=== PATIENT | male | born 1965 | race Caucasian/White ===

== ENCOUNTER 2020-02-22 10:03 | Inpatient (IN) | payer OTHER, SELFPAY ==
[2020-02-22] MEDS ORDERED: FAMOTIDINE 20 MG/2 ML VIAL IV ONE (10:54)
[2020-02-22] MEDS ORDERED: NA CHLORIDE 0.9% 1,000 ML ONE ×2 (10:54→13:19)
[2020-02-22] MEDS ORDERED: ONDANSETRON 4 MG/2 ML VIAL ONE (10:54)
--- NOTE | 2020-02-22 11:40 | RAD REPORT ---
EXAM DESCRIPTION: CT - Abdomen Pelvis Wo Contrast - 02/22/2020 11:16 am CLINICAL HISTORY: Abdominal pain. ABD PAIN COMPARISON: No comparisons TECHNIQUE: CT imaging of the abdomen and pelvis was performed without contrast. Solid organ, bowel a nd vascular assessment is limited due to lack of IV and oral contrast. All CT scans are performed using dose optimization technique as appropriate and may include automated exposure control or mA/KV adjustment according to patient size. FINDINGS: The lower lung johnson are clear.Small hiatal hernia is seen. Mildly prominent gastroesopha geal lymph node is present measuring 9 mm. The liver, spleen, pancreas, adrenal glands and kidneys are within normal limits for a limited non-co ntrast examination. No bowel obstruction, free air, free fluid or abscess. Moderate stool is retained. The appendix is no rmal. The osseous structures are within normal limits. IMPRESSION: No acute intra-abdominal or pelvic findings. Small hiatal hernia with small adjacent 9 mm gastroesophageal lymph node. Consider followup nonemerge nt upper endoscopy. A limited non-contrast examination was performed as detailed.
--- NOTE | 2020-02-22 11:42 | RAD REPORT ---
EXAM DESCRIPTION: RAD - Chest Single View - 02/22/2020 10:56 am CLINICAL HISTORY: SOB Chest pain. COMPARISON: No comparisons FINDINGS: Portable technique limits examination quality. The lungs are grossly clear. The heart is normal in size. No displaced fractures. IMPRESSION: No acute intrathoracic process suspected.
[2020-02-22 12:08] LABS: Basophils % 0.5 % (0-1.3); Hematocrit 22.9 % (39.6-49.0); MPV 8.1 fL (7.6-11.3); RBC Red Blood Cell Count 2.42 M/uL (4.33-5.43)
[2020-02-22 12:20] LABS: Protime INR 1.02
[2020-02-22 12:28] LABS: ALT/SGPT 21 U/L (12-78); AST/SGOT 18 U/L (15-37); Albumin 3.5 g/dL (3.4-5.0); Alkaline Phosphatase 91 U/L (45-117); BUN Blood Urea Nitrogen 109 mg/dL (7-18); Bicarbonate 11 mmol/L (21-32); Bilirubin Direct 0.1 mg/dL (0-0.2); Bilirubin Total 1.5 mg/dL (0.2-1.0); Glucose Level 94 mg/dL (74-106); Lipase 471 U/L (73-393); Magnesium 2.3 mg/dL (1.8-2.4); NT PRO-BNP 844 pg/mL (<125); Protein, Total 7.9 g/dL (6.4-8.2); Sodium Level 134 mmol/L (136-145); Troponin (Emerg Dept Use Only) < 0.02 ng/mL (0.0-0.045)
[2020-02-22 12:30] LABS: Potassium 5.7 mmol/L (3.5-5.1)
--- NOTE | 2020-02-22 13:05 | EDPHYS ---
Physician Documentation [facility] Name: Cr Orellana Age: 54 yrs Sex: Male : 1965 Arrival Date: 02/22/2020 Time: 10:05 Bed External Waiting Private MD: ED Physician Scott Milton HPI: 02/21 10:49 This 54 yrs old Male presents to ER via Ambulatory with complaints of Fever, pm1 Vomiting, Breathing Difficulty, Passed Out Prior To Arrival. 10:49 The patient presents to the emergency department with nausea, vomiting, with each meal pm1 attempt for the past 4 days, diarrhea, black tarry stools for the past 4 days, abdominal pain, of the epigastric area, described as achy, burning, and does not radiate. Onset: The symptoms/episode began/occurred 4 day(s) ago. Possible causes: unknown, sick contacts, None. The symptoms are aggravated by food , The symptoms are alleviated by nothing. Associated signs and symptoms: Pertinent positives: abdominal pain, nausea, vomiting, Subjective fever, Pertinent negatives: constipation, dysuria. Severity of symptoms: in the emergency department the symptoms are worse. The patient has not experienced similar symptoms in the past. The patient has not recently seen a physician, and does not have an established primary care provider. Patient with history of reflux disease that is not treated. Last treated with Zantac but stopped when the medication was recalled. Historical: - Allergies: 11:27 No Known Allergies; dm5 - Home Meds: 11:27 None [Active]; dm5 - PMHx: 11:27 seasonal allergies; dm5 - Immunization history:: Adult Immunizations not up to date. - Social history:: Smoking status: unknown. ROS: 10:49 Eyes: Negative for injury, pain, redness, and discharge, ENT: Negative for injury, pm1 pain, and discharge, Neck: Negative for injury, pain, and swelling, Cardiovascular: Negative for chest pain, palpitations, and edema, Respiratory: Negative for shortness of breath, cough, wheezing, and pleuritic chest pain. 10:49 Back: Negative for injury and pain, : Negative for injury, bleeding, discharge, and swelling, MS/Extremity: Negative for injury and deformity, Skin: Negative for injury, rash, and discoloration. 10:49 Constitutional: Positive for poor PO intake, subjective fever, Negative for body aches. 10:49 Abdomen/GI: Positive for abdominal pain, black/tarry stool, of the epigastric area, Negative for hematemesis. 10:49 Neuro: Positive for syncope, weakness, Negative for altered mental status, dizziness, headache. Exam: 10:49 Constitutional: This is a well developed, well nourished patient who is awake, alert, pm1 and in no acute distress. Head/Face: Normocephalic, atraumatic. 10:49 ENT: Nares patent. No nasal discharge, no septal abnormalities noted. Tympanic membranes are normal and external auditory canals are clear. Oropharynx with no redness, swelling, or masses, exudates, or evidence of obstruction, uvula midline. Mucous membranes moist. Neck: Trachea midline, no thyromegaly or masses palpated, and no cervical lymphadenopathy. Supple, full range of motion without nuchal rigidity, or vertebral point tenderness. No Meningismus. Chest/axilla: Normal chest wall appearance and motion. Nontender with no deformity. No lesions are appreciated. 10:49 Back: No spinal tenderness. No costovertebral tenderness. Full range of motion. MS/ Extremity: Pulses equal, no cyanosis. Neurovascular intact. Full, normal range of motion. 10:49 Eyes: Periorbital structures: appear normal, Pupils: no acute changes, Extraocular movements: no acute changes, Conjunctiva: pale, bilaterally. 10:49 Cardiovascular: Rate: normal, Rhythm: regular, Pulses: no pulse deficits are appreciated, Edema: is not appreciated. 10:49 Respiratory: Exam negative for acute changes, respiratory distress, shortness of breath, wheezing. 10:49 Abdomen/GI: Inspection: abdomen appears normal, Palpation: soft, in all quadrants, mild abdominal tenderness, in the epigastric area, mass, is not appreciated, rebound tenderness, is not appreciated. 10:49 Skin: Appearance: Color: pale. 10:49 Neuro: Exam negative for acute changes, Orientation: is normal, Mentation: is normal, Motor: is normal, moves all fours. 12:49 Abdomen/GI: Rectal exam: rectal tone normal, Stool: brown, guaiac positive, pm1 hemorrhoid(s), are not appreciated, mass, is not appreciated, tenderness, is not appreciated. Vital Signs: 10:15 BP 147 / 95; Pulse 79; Resp 18; Temp 97.2; Pulse Ox 100% on R/A; Pain 8/10; dm5 10:45 BP 161 / 83; Pulse 74; Resp 21; Pulse Ox 100% ; ah 11:45 BP 145 / 89; Pulse 67; Resp 20; Pulse Ox 100% ; ah 12:30 BP 141 / 80; Pulse 74; Resp 20; Pulse Ox 100% ; ah 13:30 BP 148 / 84; Pulse 82; Resp 26; Pulse Ox 100% ; ah 14:00 BP 151 / 85; Pulse 82; Resp 26; Pulse Ox 100% ; ah 14:30 BP 163 / 68; Pulse 98; Resp 24; Pulse Ox 100% ; ah MDM: 10:18 Patient medically screened. pm1 12:59 Data reviewed: vital signs. Data interpreted: Pulse oximetry: on room air is 100 %. pm1 Interpretation: normal. Counseling: I had a detailed discussion with the patient and/or guardian regarding: the historical points, exam findings, and any diagnostic results supporting the discharge/admit diagnosis, lab results, radiology results, the need for further work-up and treatment in the hospital. 13:15 Physician consultation: Sawyer Pizano MD was called at 13:15, regarding admission, pm1 patient's condition, would like consultation with Dr. Martínez. 14:02 Physician consultation: Oswaldo Martínez MD was contacted at 14:02, regarding consult, pm1 patient's condition, and will see patient. 02/21 10:33 Order name: Basic Metabolic Panel; Complete Time: 12:32 pm1 02/21 10:33 Order name: CBC with Diff; Complete Time: 13:54 pm1 02/21 10:33 Order name: LFT's; Complete Time: 12:32 pm02/21 10:33 Order name: Magnesium; Complete Time: 12:32 pm1 02/21 10:33 Order name: NT PRO-BNP; Complete Time: 12:32 pm02/21 10:33 Order name: PT-INR; Complete Time: 12:22 pm02/21 10:33 Order name: Troponin (emerg Dept Use Only); Complete Time: 12:32 pm1 02/21 10:33 Order name: Lipase; Complete Time: 12:32 pm1 02/21 10:34 Order name: COVID-19; Complete Time: 14:53 pm1 02/21 10:34 Order name: Flu; Complete Time: 11:57 pm1 02/21 10:34 Order name: Strep; Complete Time: 11:46 pm1 02/21 11:38 Order name: Throat Culture EDMS 02/21 12:34 Order name: Type And Screen pm1 02/21 12:50 Order name: Guiac; Complete Time: 14:40 em1 02/21 10:33 Order name: XRAY Chest (1 view); Complete Time: 11:46 pm1 02/21 10:42 Order name: CT Abd/Pelvis - Without Contrast; Complete Time: 11:46 dm5 02/21 13:11 Order name: ABO/RH no charge; Complete Time: 13:13 EDMS 02/21 13:18 Order name: Basic Metabolic Panel EDMS 02/21 13:18 Order name: Basic Metabolic Panel EDMS 02/21 13:19 Order name: Hematocrit; Complete Time: 14:12 EDMS 02/21 13:19 Order name: Hematocrit EDMS 02/21 13:19 Order name: Hematocrit EDMS 02/21 13:21 Order name: Comprehensive Metabolic Panel EDMS 02/21 13:24 Order name: PTH Intact; Complete Time: 14:53 EDMS 02/21 13:35 Order name: CBC Smear Scan; Complete Time: 13:54 EDMS 02/21 16:03 Order name: Hemoglobin; Complete Time: 16:05 EDMS 02/21 16:03 Order name: Hematocrit; Complete Time: 16:05 EDMS 02/21 10:33 Order name: EKG; Complete Time: 10:34 pm02/21 10:33 Order name: Cardiac monitoring; Complete Time: 11:31 pm02/21 10:33 Order name: EKG - Nurse/Tech pm1 02/21 10:33 Order name: IV Saline Lock; Complete Time: 12:05 pm02/21 10:33 Order name: Labs collected and sent; Complete Time: 12:05 pm02/21 10:33 Order name: O2 Per Protocol; Complete Time: 11:32 pm02/21 10:33 Order name: O2 Sat Monitoring; Complete Time: 11:32 pm02/21 10:34 Order name: Droplet/Contact Precautions; Complete Time: 11:31 pm1 02/21 13:18 Order name: CONS Pharmacy Consult EDMS 02/21 13:18 Order name: NPO EDMS 02/21 13:18 Order name: EKG Electrocardiogram EDMS 02/21 13:18 Order name: EKG Electrocardiogram EDMS 02/21 13:18 Order name: EKG Electrocardiogram EDMS 02/21 13:18 Order name: EKG Electrocardiogram EDMS 02/21 13:18 Order name: EKG Electrocardiogram EDMS 02/21 13:18 Order name: EKG Electrocardiogram EDMS 02/21 13:18 Order name: EKG Electrocardiogram EDMS 02/21 13:18 Order name: EKG Electrocardiogram EDMS 02/21 13:19 Order name: EKG Electrocardiogram EDMS 02/21 13:19 Order name: EKG Electrocardiogram EDMS 02/21 13:19 Order name: EKG Electrocardiogram EDMS 02/21 13:23 Order name: CONS Physician Consult EDMS Administered Medications: 12:04 Drug: NS 0.9% 1000 ml Route: IV; Rate: 1000 ml; Site: right forearm; sv 12:04 Drug: Zofran (Ondansetron) 4 mg Route: IVP; Site: right forearm; sv 12:04 Drug: Pepcid 20 mg Route: IVP; Site: right forearm; sv 14:00 Drug: Albuterol 7.5 mg Route: Inhalation; ah 14:01 Drug: Insulin Regular Human 5 units {Co-Signature: vc (Mercedez Emmanuel RN).} Route: ah IVP; Site: right antecubital; 14:01 Drug: D50W 50 ml Route: IVP; Site: right antecubital; 14:02 Drug: ProTONIX 40 mg Route: IVP; Site: right antecubital; 14:02 Drug: NS 0.9% 1000 ml Route: IV; Rate: 125 ml/hr; Site: right antecubital; 14:02 Drug: Calcium Gluconate 1 grams Route: IVPB; Infused Over: 60 mins; Site: right antecubital; Disposition: 18:34 Co-signature as Attending Physician, Scott Milton MD. ma2 Disposition: 02/22/20 13:04 Hospitalization ordered by Sawyer Pizano for Inpatient Admission. Preliminary diagnosis are Gastrointestinal hemorrhage, unspecified, Acute kidney injury, Dehydration. - Bed requested for Intensive Care Unit. - Status is Inpatient Admission. dm5 - Condition is Stable. - Problem is new. - Symptoms have improved. Signatures: Dispatcher [employer] EDLA Mary Robert RN Kate Lutz RN RN dm5 Valeria Beckwith RN JUAN DANIEL Caden Lomas, FLATWORK TIER FLATWORK TIER pm1 Scott Milton MD MD mo2 Lashay eD RN RN ah Vanessa Calcote RN vc Corrections: (The following items were deleted from the chart) 10:53 10:35 Abdomen Pelvis W Con+CT.RAD.BRZ ordered. EDLA EDMS 13:06 13:04 Hospitalization Ordered by Sawyer Pizano MD for Inpatient Admission. pm1 Preliminary diagnosis is Gastrointestinal hemorrhage, unspecified. Bed requested for Telemetry/MedSurg (Inpatient). Status is Inpatient Admission. Condition is Stable. Problem is new. Symptoms have improved. pm1 14:22 13:06 02/22/2020 13:04 Hospitalization Ordered by Sawyer Pizano MD for Inpatient kl Admission. Preliminary diagnosis is Gastrointestinal hemorrhage, unspecified; Acute kidney injury; Dehydration. Bed requested for Telemetry/MedSurg (Inpatient). Status is Inpatient Admission. Condition is Stable. Problem is new. Symptoms have improved. pm1 16:14 14:22 02/22/2020 13:04 Hospitalization Ordered by Sawyer Pizano MD for Inpatient dm5 Admission. Preliminary diagnosis is Gastrointestinal hemorrhage, unspecified; Acute kidney injury; Dehydration. Bed requested for Intensive Care Unit. Status is Inpatient Admission. Condition is Stable. Problem is new. Symptoms have improved. kl
--- NOTE | 2020-02-22 13:05 | ER ---
Nurse's Notes [facility] Name: Cr Orellana Age: 54 yrs Sex: Male : 1965 Arrival Date: 02/22/2020 Time: 10:05 Bed External Waiting Private MD: Diagnosis: Gastrointestinal hemorrhage, unspecified;Acute kidney injury;Dehydration Presentation: 02/21 10:08 Acuity: HUYEN 3 dm5 10:15 Chief complaint: Patient states: nausea and vomiting since Monday. Weak. "I haven't dm5 felt like this before.". Coronavirus screen: Surgical mask placed on patient. Patient moved to private room, placed in contact and droplet isolation with eye protection until further assessment. Patient reports shortness of breath or difficulty breathing. Patient reports a measured and/or subjective temperature greater than 100.4F. Ebola Screen: Patient negative for fever greater than or equal to 101.5 degrees Fahrenheit, and additional compatible Ebola Virus Disease symptoms Patient denies exposure to infectious person. Patient denies travel to an Ebola-affected area in the 21 days before illness onset. No symptoms or risks identified at this time. Initial Sepsis Screen: Does the patient meet any 2 criteria? No. Patient's initial sepsis screen is negative. Does the patient have a suspected source of infection? Yes: Acute abdominal pain. Risk Assessment: Do you want to hurt yourself or someone else? Patient reports no desire to harm self or others. Onset of symptoms was February 17, 2020. 10:15 Method Of Arrival: Ambulatory dm5 Triage Assessment: 10:30 General: Appears uncomfortable, Behavior is calm, cooperative. Pain: Complains of pain dm5 in epigastric area. Neuro: Level of Consciousness is awake, alert, obeys commands, Oriented to person, place, time. Respiratory: Airway is patent Respiratory effort is even, unlabored, Respiratory pattern is regular, symmetrical. GI: Reports nausea, vomiting. Derm: Skin is pink, warm \\T\\ dry. Historical: - Allergies: 11:27 No Known Allergies; dm5 - Home Meds: 11:27 None [Active]; dm5 - PMHx: 11:27 seasonal allergies; dm5 - Immunization history:: Adult Immunizations not up to date. - Social history:: Smoking status: unknown. Screenin:06 Abuse screen: Denies threats or abuse. Nutritional screening: No deficits noted. Tuberculosis screening: No symptoms or risk factors identified. Fall Risk None identified. Vital Signs: 10:15 BP 147 / 95; Pulse 79; Resp 18; Temp 97.2; Pulse Ox 100% on R/A; Pain 8/10; dm5 10:45 BP 161 / 83; Pulse 74; Resp 21; Pulse Ox 100% ; ah 11:45 BP 145 / 89; Pulse 67; Resp 20; Pulse Ox 100% ; ah 12:30 BP 141 / 80; Pulse 74; Resp 20; Pulse Ox 100% ; ah 13:30 BP 148 / 84; Pulse 82; Resp 26; Pulse Ox 100% ; ah 14:00 BP 151 / 85; Pulse 82; Resp 26; Pulse Ox 100% ; ah 14:30 BP 163 / 68; Pulse 98; Resp 24; Pulse Ox 100% ; ah ED Course: 10:05 Patient arrived in ED. mr 10:08 Arm band placed on left wrist. Patient placed in an exam room. dm5 10:09 Caden Lomas NP is PHCP. pm1 10:09 Scott Milton MD is Attending Physician. pm1 10:30 Missed attempt(s): 20 gauge in left antecubital area. dm5 10:40 Triage completed. dm5 10:40 aKte Yip, RN is Primary Nurse. dm5 10:56 XRAY Chest (1 view) In Process Unspecified. EDMS 11:00 Missed attempt(s): 22 gauge in left wrist. Bleeding controlled, band aid applied, dm5 catheter tip intact. 11:16 CT Abd/Pelvis - Without Contrast In Process Unspecified. EDMS 11:16 CT completed. Patient tolerated procedure well. Patient moved back from CT. bq 11:45 Inserted saline lock: 20 gauge in right forearm, using aseptic technique. ,using sv aseptic technique. diffusics Blood collected. Flushed right forearm with 5 ml normal saline. 12:10 Notified ED physician of a critical lab result(s). 7.7 hgb. dm5 12:56 T\\T\\S collected, blood band applied to patient. jp3 13:04 Sawyer Pizano MD is Hospitalizing Provider. pm1 14:03 Notified Nurse Practitioner and/or Physician Health Services Director of a critical lab result(s), hct dm5 20.8. 14:06 Patient has correct armband on for positive identification. Placed in gown. Bed in low ah position. Call light in reach. Side rails up X 1. 14:46 No provider procedures requiring assistance completed. Patient admitted, IV remains in place. Administered Medications: 12:04 Drug: NS 0.9% 1000 ml Route: IV; Rate: 1000 ml; Site: right forearm; sv 12:04 Drug: Zofran (Ondansetron) 4 mg Route: IVP; Site: right forearm; 12:04 Drug: Pepcid 20 mg Route: IVP; Site: right forearm; sv 14:00 Drug: Albuterol 7.5 mg Route: Inhalation; 14:01 Drug: Insulin Regular Human 5 units {Co-Signature: vc (Mercedez Emmanuel RN).} Route: ah IVP; Site: right antecubital; 14:01 Drug: D50W 50 ml Route: IVP; Site: right antecubital; 14:02 Drug: ProTONIX 40 mg Route: IVP; Site: right antecubital; 14:02 Drug: NS 0.9% 1000 ml Route: IV; Rate: 125 ml/hr; Site: right antecubital; 14:02 Drug: Calcium Gluconate 1 grams Route: IVPB; Infused Over: 60 mins; Site: right ah antecubital; Outcome: 13:04 Decision to Hospitalize by Provider. pm1 14:46 Admitted to ICU accompanied by nurse, accompanied by tech, via stretcher, room 6, on monitor, Report called to JUAN DANIEL Metz 14:46 Condition: stable 14:46 Instructed on the need for admit. 16:14 Patient left the ED. dm5 Signatures: Dispatcher [employer] EDMS Kate Yip RN RN dm5 Valeria Beckwith RN RN sv Rivera, Katy mr Edmundo, Caden Barksdale, BUTTON SEWER HAND BUTTON SEWER HAND pm1 Florencio Rosales 3 Lashay De RN RN Mercedez Emmanuel RN, vc Corrections: (The following items were deleted from the chart) : 11:27 General: Appears uncomfortable, Behavior is calm, cooperative, dm5 dm5 :30 11:27 Pain: Complains of pain in epigastric area isabella5 dm5 11:30 11:27 Neuro: Level of Consciousness is awake, alert, obeys commands, Oriented to dm5 person, place, time, dm5 : GI: Reports nausea, vomiting, dm5 dm5 Derm: Skin is pink, warm \\T\\ dry. dm5 dm5 Respiratory: Airway is patent Respiratory effort is even, unlabored, Respiratory dm5 pattern is regular, symmetrical, dm5
[2020-02-22] MEDS ORDERED: PANTOPRAZOLE 40 MG INJ ONE (13:18)
[2020-02-22] MEDS ORDERED: ALBUTEROL 2.5 MG/3 ML NEB SOL ONE (13:18)
[2020-02-22] MEDS ORDERED: D50W 25 GM/50 ML SYRINGE/VIAL IV ONE (13:19)
[2020-02-22] MEDS ORDERED: INSULIN -REGULAR HUMAN 50 UNIT/0.5 ML ML ONE (13:19)
[2020-02-22] MEDS ORDERED: NA CHLORIDE 0.9% 250 ML ONE (13:19)
[2020-02-22] MEDS ORDERED: CALCIUM GLUCONATE 1 GM IVPB 1 GM/50 ML BAG IV ONE ×2 (13:20→20:28)
[2020-02-22 13:34] LABS: Blood Morphology Comment NOT SEEN (NOT SEEN); Platelet Estimate ADEQ; Urine White Blood Cell Casts OK
[2020-02-22] MEDS ORDERED: NA CHLORIDE 0.9% 1,000 ML IV SCH (14:00)
[2020-02-22] MEDS ORDERED: NA CHLORIDE 0.9% 250 ML IV SCH (14:00)
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
[2020-02-22] MEDS ORDERED: SODIUM BICARB 50 MEQ/50ML VIAL IV ONE (15:00)
[2020-02-22] MEDS ORDERED: SOD POLYSTYREN SUL 15 GM/60 ML UCUP PO ONE (15:00)
[2020-02-22 16:03] LABS: Hematocrit 20.2 % (39.6-49.0)
[2020-02-22] MEDS: D5W 1,000 ML with NA BICARB 8.4% 150 MEQ IV SCH ×4 (16:28→20:45)
[2020-02-22 16:39] LABS: Albumin 2.8 g/dL (3.4-5.0); Bilirubin Total 1.2 mg/dL (0.2-1.0); Potassium 4.1 mmol/L (3.5-5.1); Protein, Total 6.4 g/dL (6.4-8.2)
[2020-02-22 16:55] LABS: Urine Appearance CLEAR; Urine Bilirubin NEGATIVE (NEG); Urine Blood 2+ (NEG); Urine Color YELLOW; Urine Glucose TRACE (NEG); Urine Protein 1+ (NEG); Urine Urobilinogen 0.2 mg/dL (0.2-1.0)
[2020-02-22 16:56] LABS: Urine Microscopic Reflex ORDER UMIC
[2020-02-22] MEDS: PANTOPRAZOLE INJ 80 MG in NA CHLORIDE 0.9% 250 ML IV SCH ×2 (17:00→20:58)
[2020-02-22 17:03] LABS: Urine Amorphous Sediment 1+ /HPF (NONE SEEN); Urine Bacteria <20 /HPF (NONE SEEN); Urine Culture Reflex Order REFLEXED; Urine Protein/Creatinine Ratio 1.98 ratio (<0.15); Urine RBC <5 /HPF (NONE SEEN)
[2020-02-22] MEDS: CODEINE 30MG/APAP 300MG TAB PO PRN (17:09)
[2020-02-22 17:48] VITALS: BMI 26.5
[2020-02-22] MEDS ORDERED: CALCIUM GLUC 10% INJ 4.65 MEQ in NA CHLORIDE 0.9% 100 ML IV ONE ×2 (18:07→19:30)
[2020-02-22 19:04] LABS: Hematocrit 20.6 % (39.6-49.0)
[2020-02-22] MEDS: ONDANSETRON 4 MG/2 ML VIAL IV PRN (20:30)
--- NOTE | 2020-02-22 20:57 | RAD REPORT ---
EXAM DESCRIPTION: RAD - Chest Single View - 02/22/2020 8:49 pm CLINICAL HISTORY: S/P PICC Insertion COMPARISON: Chest Single View dated 02/22/2020 FINDINGS: Portable chest was obtained following placement of a right upper extremity PICC line. The catheter tip projects over the SVC.
--- NOTE | 2020-02-22 20:58 | CON ---
Date of Consultation: 02/22/2020 Reason For Consultation: Acute kidney injury. History Of Present Illness: Mr. Orellana is a 54-year-old male who does not follow with any physicians for many years, who presented to the hospital with black tarry stools and fatigue. The patient also has reported fevers over the past few weeks and malaise. The patient was found to have evidence of positive GI bleed and has been admitted to ICU. Patient has hemoglobin of 6.8 on presentation. Cons ultation was requested for renal failure. Patient has BUN of 109, creatinine of 22.7 also with CO2 o f 11, sodium 134, potassium 5.7. In the emergency room, patient did receive hyperkalemia cocktail. He has also received boluses of IV fluids and also medications for the GI bleed. Patient states that he was incarcerated until 3 months ago. He stated that he has had GI symptoms fo r quite some time, but denies any bleeding like such he is having at this time. In terms of lab work , patient says it has been many years since he has had any lab work drawn. Never been told of renal disease, but unsure if he has a history of it. Currently in the ICU, he is awake. He is able to give a good history at this time. Past Medical History: None known of the patient. Physical Examination: Vital Signs: Blood pressure 148/84, pulse 82, afebrile. Input and output not yet measured. General: No acute distress. Physical exam per report. Heart: Regular rate and rhythm. No murmurs, rubs, or gallops. Lungs: Clear to auscultation and normal air movement. Abdomen: Soft and he had mild epigastric pain with palpation. Extremities: Currently have no edema. I do not see any skin changes of the lower extremities. Laboratory Data: Sodium 134, potassium 5.7, chloride 99, CO2 of 11, BUN 109, creatinine 22.7, glucos e 94, calcium 5.8, bilirubin 1.5. BNP 844, albumin 3.5, lipase 471, PTH 389. CBC with hemoglobin of 7.7, which is decreased to 6.8. Microbiology Data: Stool studies were positive on the microbiology. The COVID PCR is pending. Infl uenza negative. Current Medications: Noted. Patient is to be on a Protonix infusion. It appears that the patient a lso is to receive D5W with 150 mEq sodium bicarb at 200 mL an hour. Impression: 1.Severe acute renal failure. 2.Gastrointestinal bleed. 3.Hyperkalemia. 4.Anion gap acidosis in the setting of renal failure. 5.Hypocalcemia. Plan: Patient agree with aggressive IV fluids with bicarbonate based fluids. Patient will need BMP q.6 hours for monitoring. Also we will have Kirby catheter placed for strict input and output measur ing. Continue transfusing p.r.n. Continue GI medications for GI bleed. In terms of etiology is likely secondary to volume depletion. However, the patient does give a histo ry of lower urinary tract symptoms and thus Kirby catheter will be placed and we will monitor the pat ient's urine output. It is unclear how long the patient had renal failure. Given his high PTH, this may have been a prolonged period of acute kidney injury versus underlying chronic kidney disease for many years and has yet to be seen what the patient's baseline is. Patient does not need renal replacement therapy at this time. However, patient is oliguric and elect rolytes are not able to be corrected. The patient may need renal replacement therapy. However, the patient is not exhibiting signs of uremia at this time nor is showing volume overload. We will asses s the efficacy of the medical management of hyperkalemia. The patient's acidosis, although severe, c an be managed with IV fluids, so the patient is oliguric, that may be the main reason for renal place ment therapy if necessary. Critical care time over 30 minutes spent with the patient. Case discussed with bedside nurse. /DOUGIE Voice ID: [id number] Report ID: [id number]
[2020-02-22] MEDS ORDERED: PANTOPRAZOLE 40 MG INJ IVP SCH (21:00)
[2020-02-22 21:58] LABS: Potassium 4.3 mmol/L (3.5-5.1)
[2020-02-23] MEDS: D5W 1,000 ML with NA BICARB 8.4% 150 MEQ IV SCH ×8 (04:35→19:44)
[2020-02-23] MEDS: PANTOPRAZOLE INJ 80 MG in NA CHLORIDE 0.9% 250 ML IV SCH ×3 (05:00→22:00)
[2020-02-23] MEDS ORDERED: PANTOPRAZOLE 40 MG INJ ONE (05:09)
[2020-02-23 07:11] LABS: Basophils % 0.8 % (0-1.3); Hematocrit 21.7 % (39.6-49.0); Lymphocytes % 11.6 % (15.3-44.8); MPV 8.1 fL (7.6-11.3); RBC Red Blood Cell Count 2.45 M/uL (4.33-5.43)
[2020-02-23] MEDS ORDERED: Calcium Gluconate 9.3 mEq (=2gm)/NS 100 mL IVPB IV ONE ×2 (08:00)
[2020-02-23] MEDS ORDERED: D50W 25 GM/50 ML SYRINGE/VIAL IV PRN (09:01)
[2020-02-23] MEDS ORDERED: GLUCAGON 1 MG/VIAL IM PRN (09:01)
[2020-02-23] MEDS: INSULIN -REGULAR HUMAN 50 UNIT/0.5 ML ML SQ SCH ×3 (09:13→18:00)
[2020-02-23] MEDS ORDERED: NPH (HUMAN) 100 UNITS/ML INSULIN SQ ONE (09:20)
[2020-02-23] MEDS: CODEINE 30MG/APAP 300MG TAB PO PRN ×2 (09:21→20:29)
[2020-02-23] MEDS: ONDANSETRON 4 MG/2 ML VIAL IV PRN ×2 (09:22→20:21)
--- NOTE | 2020-02-23 09:38 | P.PN ---
Subjective Date of Service: 02/23/20 (Hospitalist) Primary Care Provider: none Chief Complaint: GI hemorrhage acute renal failure Patient's condition is stable seen by Nephrology will has some intermittent cramps hypocalcemic Review of Systems General: Weakness Physical Examination - Vital Signs Temperature: 97 F Blood Pressure: 128/75 Pulse: 73 Respirations: 22 Pulse Ox (%): 100 - Physical Exam General: Alert, Oriented x3 Respiratory: Clear to auscultation bilaterally Cardiovascular: No edema, Regular rate/rhythm - Studies Laboratory Data (last 24 hrs) 02/22/20 11:55: PT 12.0, INR 1.02 02/22/20 11:55: WBC 14.5 H, Hgb 7.7 L*, Hct 22.9 L, Plt Count 200 02/22/20 11:55: Sodium 134 L, Potassium 5.7 H*, BUN 109 H, Creatinine 22.70 H*, Glucose 94, Magnesium 2.3, Total Bilirubin 1.5 H, AST 18, ALT 21, Alkaline Phosphatase 91, Lipase 471 H Microbiology Data (last 24 hrs): 02/22/20 11:01 Nasopharnyx Coronavirus COVID-19 PCR - Final 02/22/20 12:50 Stool Occult Blood - Final 02/22/20 10:59 Nasopharnyx Influenza Type A Antigen Screen - Final 02/22/20 10:59 Nasopharnyx Influenza Type B Antigen Screen - Final 02/22/20 10:59 Throat Group A Streptococcus Rapid Screen - Final Assessment & Plan - Problems (Diagnosis) (1) Renal failure Current Visit: Yes Status: Acute Plan: Patient is 54 years of age admitted with acute renal failure and severe hypocalcemia PTH level significantly elevated kidney function is slightly improving vital signs stable mildly anemic transfer to the floor Qualifiers: Chronic kidney disease stage: stage 5, not on chronic dialysis (2) Hypocalcemia Current Visit: Yes Status: Acute Plan: Patient has severe hypocalcemia continue with IV calcium infusion PTH level is elevated bordered vitamin-D metabolites start on p.o. calcium with calcitriol
[2020-02-23 10:02] LABS: Potassium 3.6 mmol/L (3.5-5.1)
[2020-02-23] MEDS ORDERED: CALCITROL 0.25 MCG CAP PO SCH (11:00)
[2020-02-23] MEDS: CALCIUM CARBONATE 500 MG TAB PO SCH ×2 (11:04→20:21)
[2020-02-23] MEDS: CALCITROL 0.25 MCG CAP PO SCH (11:18)
[2020-02-23 11:48] LABS: Hematocrit 22.7 % (39.6-49.0)
[2020-02-23 12:13] LABS: CKMB Creatine Kinase MB 4.1 ng/mL (0.3-3.6)
[2020-02-23 12:15] LABS: Phosphorus 8.9 mg/dL (2.5-4.9)
[2020-02-23] MEDS ORDERED: NA CHLORIDE 0.9% 250 ML ONE (13:57)
--- NOTE | 2020-02-23 15:14 | PN ---
Date of Progress Note: 02/23/2020 Subjective: Patient is seen at the bedside, remains in ICU for monitoring. The patient has not had any more evidence of melena. He feels well. Denies any fevers, chills, chest pain, shortness of afia ath, nausea, vomiting, or diarrhea. He is having epigastric pain. He is complaining of cramping in the legs. Objective: Vital Signs: Blood pressure is 128/75, pulse 73, afebrile. General: No acute distress. Heart: Regular rate and rhythm. No murmurs, rubs, gallops. Lungs: Clear to auscultation. Abdomen: Soft. There is epigastric tenderness on palpation. Extremities: No significant edema. Laboratory Data: Sodium 142, potassium 3.6, chloride 106, CO2 of 18, BUN 99, creatinine 19.3, glucos e 136, calcium 5.8. Of note, sodium is trending upward from 134 on admission up to 142 today. Calci um level remains low at 5.8 yesterday and 5.8 again today. Magnesium level yesterday was 2.4. Hepat ic panel upon admission was reviewed. Patient does have an albumin of 3.5, which dropped to 2.8. PT H again yesterday was 389. UA was reviewed. He had 2+ blood, 1+ leukocyte esterase, 5-10 wbc's. Ur ine protein to creatinine ratio showed approximately 2 g proteinuria. Microbiology Data: Patient's COVID testing is still pending. Current Medications: Reviewed. Of note, patient continues on D5 water with 150 mEq of sodium bicarb at 200 mL/h. Also receiving calcitriol 0.25 daily. Calcium replenishment has been added by primary team. Impression: 1.Acute renal failure, likely acute tubular necrosis versus longstanding underlying chronic kidney d isease, which was undiagnosed. 2.Gastrointestinal bleed. 3.Hyperkalemia. 4.Hypocalcemia. 5.Anion gap acidosis in the setting of renal failure. Plan: We will continue IV fluids. The patient does have hyperglycemia; however, he is n.p.o., so I will continue D5 base solution. It is running at 200 mL/h. I will decrease the rate to 125 mL/h. W e will maintain potassium above 4 with bicarbonate solution, which can precipitate hypokalemia, but w ill be very cautious given the renal failure as well as prior hyperkalemia. I agree with calcium replenishment. Calcitriol has been increased to 0.5. The patient's magnesium l evel was normal and we will continue to trend the magnesium level. We will aggressively replenish al l electrolytes. Upon asking the patient, he is having cramping, he also complained of perioral numbn ess, which has improved. There are no arrhythmias noted on the telemetry. I ordered for patient to receive 1 more unit of PRBCs and that will be transfused here in the ICU. Patient currently does not need renal replacement therapy. We will continue to monitor patient for e vidence of volume overload, electrolyte imbalance, or obvious signs of uremia, which would necessitat e dialysis. Avoid all NSAIDs. Avoid contrast. Renally dose all medications. I will continue to follow. /DOUGIE Voice ID: [id number] Report ID: [id number]
[2020-02-23 17:07] LABS: Hematocrit 24.7 % (39.6-49.0)
[2020-02-23 17:37] LABS: Potassium 3.5 mmol/L (3.5-5.1)
[2020-02-23] MEDS ORDERED: propofoL 200 MG/20 ML VIAL IV ONE (18:07)
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
[2020-02-23 23:25] LABS: Potassium 3.5 mmol/L (3.5-5.1)
[2020-02-23] MEDS ORDERED: CALCIUM GLUC 10% INJ 4.65 MEQ in NA CHLORIDE 0.9% 100 ML IV ONE (23:55)
[2020-02-24] MEDS: PANTOPRAZOLE INJ 80 MG in NA CHLORIDE 0.9% 250 ML IV SCH ×3 (00:01→22:02)
[2020-02-24] MEDS ORDERED: CALCIUM GLUCONATE 1 GM IVPB 1 GM/50 ML BAG IV ONE (00:24)
[2020-02-24 05:07] LABS: Absolute Lymphocytes (CBC) 1.4 K/uL (0.7-4.9); Basophils % 0.8 % (0-1.3); Hematocrit 24.2 % (39.6-49.0); MPV 8.5 fL (7.6-11.3); RBC Red Blood Cell Count 2.74 M/uL (4.33-5.43)
[2020-02-24] MEDS: D5W 1,000 ML with NA BICARB 8.4% 150 MEQ IV SCH ×4 (05:14→14:27)
[2020-02-24 05:33] LABS: Magnesium 1.6 mg/dL (1.8-2.4); Potassium 3.9 mmol/L (3.5-5.1)
[2020-02-24] MEDS: ONDANSETRON 4 MG/2 ML VIAL IV PRN ×3 (06:51→18:28)
[2020-02-24] MEDS ORDERED: MAGNESIUM SULFATE 1 gm IVPB 1 GM/100 ML BAG IV ONE (07:15)
[2020-02-24] MEDS: INSULIN -REGULAR HUMAN 50 UNIT/0.5 ML ML SQ SCH ×5 (07:30→21:00)
[2020-02-24] MEDS: CALCITROL 0.25 MCG CAP PO SCH (09:57)
[2020-02-24] MEDS: CALCIUM CARBONATE 500 MG TAB PO SCH (09:57)
[2020-02-24] MEDS ORDERED: CEFAZOLIN/SWI 1gm 1 GM/10 ML SYR IV SCH (11:15)
[2020-02-24] MEDS: CODEINE 30MG/APAP 300MG TAB PO PRN ×2 (12:00→18:26)
--- NOTE | 2020-02-24 16:55 | P.PN ---
Subjective Date of Service: 02/24/20 Primary Care Provider: none Chief Complaint: GI hemorrhage acute renal failure Subjective: Other (Patient stable this time.) Physical Examination - Vital Signs Temperature: 98.8 F Blood Pressure: 144/73 Pulse: 75 Respirations: 18 Pulse Ox (%): 98 - Physical Exam General: Alert, Cooperative HEENT: Atraumatic Neck: Supple Respiratory: Clear to auscultation bilaterally, Normal air movement Cardiovascular: Normal pulses, Regular rate/rhythm Gastrointestinal: No masses, No rebound, No guarding Musculoskeletal: No tenderness, No warmth Neurological: Normal speech, Normal strength at 5/5 x4 extr, Normal tone, Normal affect - Studies Microbiology Data (last 24 hrs): 02/22/20 10:59 Throat Culture & Sensitivity - Final NORMAL UPPER RESPIRATORY ESTELLE GROWN. Medications List Reviewed: Yes Assessment & Plan Discharge Plan: Home Plan to discharge in: 48 Hours Physician Review Additional Text: Impression: GI hemorrhage likely from peptic ulcer disease Hyperkalemia Acute kidney injury likely from several days of nausea and vomiting resulting in severe dehydration Acute Blood loss anemia likely secondary to suspected peptic ulcer Elevated lipase etiology unclear Plan: GI hemorrhage likely from peptic ulcer disease: Patient received 3 units of packed red blood cells. Hemoglobin stable this time. GI performed EGD. Will discuss further with GI. Continue monitor closely. Renal function still compromise. Case discussed at length with nephrology. Patient will likely require emergent dialysis. Will contact surgery for dialysis catheter placement. Acute kidney injury likely from several days of nausea and vomiting resulting in severe dehydration with hyperkalemia: No improvement in renal function. Case discussed with nephrology. Patient will require emergent dialysis. Surgery consulted for dialysis catheter placement for tomorrow morning. Acute Blood loss anemia likely secondary to suspected peptic ulcer: Continue as above Elevated lipase etiology unclear: Patient denies alcohol use. Suspect it is related to the intractable nausea vomiting diarrhea as well as dehydration over the past 4 days. Will monitor lipase levels. Patient denies left upper quadrant pain. Time Spent Managing Pts Care (In Minutes): 55
--- NOTE | 2020-02-24 18:28 | P.PN ---
Date of Service: 02/24/20 Vital Signs Temp Pulse Resp BP Pulse Ox 98.8 F 75 18 144/73 H 98 02/24/20 16:55 02/24/20 16:55 02/24/20 16:55 02/24/20 16:55 02/24/20 16:55 Medications Acetaminophen/Codeine Phosphate (Tylenol W/Codeine #3 Tab) 1 tab PO Q6H PRN PRN Reason: Pain scale 2-4 (Mild) Stop: 03/23/20 16:35 Last Admin: 02/24/20 12:00 Dose: 1 tab Documented by: Calcitriol (Rocaltrol) 0.5 mcg PO DAILY ELY Stop: 03/24/20 12:01 Last Admin: 02/24/20 09:57 Dose: 0.5 mcg Documented by: Calcium Carbonate/Glycine (Tums Regular) 1,000 mg PO AC ELY Stop: 03/26/20 07:31 Cholecalciferol (Vitamin D 5,000 Iu Cap) 10,000 unit PO DAILY ELY Stop: 03/26/20 09:01 Dextrose (Dextrose 50% Syringe/Vial) 12.5 gm IV PRN PRN; Protocol PRN Reason: HYPOGLYCEMIA Stop: 03/24/20 09:02 Glucagon (Glucagen) 1 mg IM 1X PRN; Protocol PRN Reason: HYPOGLYCEMIA Stop: 03/24/20 09:02 Sodium Chloride (Sodium Chloride) 250 mls @ 0 mls/hr IV .Q0M ELY Stop: 03/23/20 14:01 Last Admin: 02/22/20 21:03 Dose: 250 mls Documented by: Pantoprazole Sodium 80 mg/ (Sodium Chloride) 250 mls @ 25 mls/hr IV Q10H ELY; Protocol Stop: 03/24/20 12:01 Last Admin: 02/24/20 12:00 Dose: 250 mls Documented by: Cefazolin Sodium (Ancef 1 Gm/10 Ml Swi Ivp) 1 gm in 10 mls @ 600 mls/hr IV OC ELY; Protocol Stop: 02/25/20 12:00 Lactated Ringer's (Lactated Ringers) 1,000 mls @ 100 mls/hr IV .Q10H ELY Stop: 03/25/20 19:01 Insulin Human Regular (Novolin -R) 0 unit SQ ACHS ELY; Protocol Stop: 03/25/20 07:31 Last Admin: 02/24/20 16:30 Dose: Not Given Documented by: Magnesium Oxide (Mag 0x Tab) 400 mg PO BEDTIME ELY Stop: 03/25/20 21:01 Ondansetron HCl (Zofran) 4 mg IV Q6H PRN PRN Reason: NAUSEA / VOMITING Stop: 03/23/20 20:25 Last Admin: 02/24/20 12:00 Dose: 4 mg Documented by: Sodium Chloride (Normal Saline Flush) 10 ml IV BID ELY Stop: 03/23/20 21:01 Last Admin: 02/24/20 09:00 Dose: Not Given Documented by: Lab Results (last 24 hrs) 02/22/20 12:50: ABO/Rh O POSITIVE, Solid Phase Ab Screen Negative, Crossmatch See Detail Microbiology Results 02/22/20 10:59 Throat Culture & Sensitivity - Final NORMAL UPPER RESPIRATORY ESTELLE GROWN. 02/22/20 11:01 Nasopharnyx Coronavirus COVID-19 PCR - Final 02/22/20 12:50 Stool Occult Blood - Final 02/22/20 10:59 Nasopharnyx Influenza Type A Antigen Screen - Final 02/22/20 10:59 Nasopharnyx Influenza Type B Antigen Screen - Final 02/22/20 10:59 Throat Group A Streptococcus Rapid Screen - Final Assessment/ Plan: Nephrology CPS stable without CP or SOB. Feeling better. No acute events overnight. Reports that he is homeless. Reports difficulty with urination prior to admission. Vitals, medications, blood work and imaging reviewed in the chart. NAD. MMM. Neck supple. CTA. RRR. Soft Abd. No C/C/E. No rash. AAO. Normal Speech. A/ Suspected ESRD Hyperkalemia Acidosis HTN DM II with CKD/ Proteinuria Anemia in CKD BPH with LUTS MIAH/ Secondary HyperPTH Hypocalcemia/ HyperPO4 Vitamin D Deficiency Hypomagnesemia P/ Continue current POC and Medications. Arrange for HD CVC placement due to suspected ESRD. Send HBV serology. Change IVF to LR. Give Retacrit. Increase Tums TID. Start MagOx. Continue diaz for possible obstruction. Start Flomax. No NSAIDs. AM labs. Daily weight. Case reviewed with Dr. Jo Arrange placement at the [facility].
[2020-02-24] MEDS ORDERED: EPOETIN ALFA-EPBX 10,000 UNIT/ML VIAL SQ ONE (19:00)
[2020-02-24] MEDS: MAGNESIUM OXIDE 400 MG TAB PO SCH (21:00)
[2020-02-24] MEDS ORDERED: EPOETIN ALFA 10,000 UNIT/ML VIAL ONE (21:32)
[2020-02-24] MEDS: Ringers Lactate 1,000 ML IV SCH (22:01)
[2020-02-24] MEDS: TAMSULOSIN 0.4 MG SR CAP PO SCH (22:04)
[2020-02-24] MEDS ORDERED: MORPHINE 2 MG/ML SYR IV ONE (22:18)
[2020-02-25] MEDS: CODEINE 30MG/APAP 300MG TAB PO PRN ×4 (03:24→21:15)
[2020-02-25 03:27] LABS: Basophils % 0.6 % (0-1.3); Lymphocytes % 17.2 % (15.3-44.8); MPV 8.1 fL (7.6-11.3); RBC Red Blood Cell Count 2.93 M/uL (4.33-5.43)
[2020-02-25] MEDS: ONDANSETRON 4 MG/2 ML VIAL IV PRN ×3 (03:29→21:14)
[2020-02-25 03:36] LABS: Magnesium 1.9 mg/dL (1.8-2.4); Potassium 4.1 mmol/L (3.5-5.1)
[2020-02-25] MEDS ORDERED: CALCIUM GLUC 10% INJ 9.3 MEQ in NA CHLORIDE 0.9% 100 ML IV ONE (04:00)
[2020-02-25] MEDS: PANTOPRAZOLE INJ 80 MG in NA CHLORIDE 0.9% 250 ML IV SCH ×4 (04:00→22:33)
[2020-02-25] MEDS ORDERED: CALCIUM GLUCONATE 1 GM IVPB 2 GM/100 ML BAG IV ONE (04:55)
[2020-02-25] MEDS: Ringers Lactate 1,000 ML IV SCH ×4 (05:00→21:26)
--- NOTE | 2020-02-25 06:40 | EKG ---
Test Date: 2020-02-24 Test Time: 14:58:05 Youth Director: MICA MEASUREMENT RESULTS: Intervals: Rate: 72 OH: 118 QRSD: 70 QT: 428 QTc: 468 [place]: P: 63 OH: 118 QRS: 20 T: 24 INTERPRETIVE STATEMENTS: Normal sinus rhythm Normal ECG Compared to ECG 02/22/2020 14:39:59 No significant changes Electronically Signed On 02-25-20 06:39:27 CDT by Thaddeus Llanes
--- NOTE | 2020-02-25 06:40 | EKG ---
Test Date: 2020-02-24 Test Time: 21:31:39 Thermoscrew Operator: WALTER MEASUREMENT RESULTS: Intervals: Rate: 74 FL: 108 QRSD: 68 QT: 420 QTc: 466 [place]: P: 47 FL: 108 QRS: 20 T: 39 INTERPRETIVE STATEMENTS: Sinus rhythm with short FL Otherwise normal ECG Compared to ECG 02/24/2020 14:58:05 Short FL interval now present Electronically Signed On 02-25-20 06:39:26 CDT by Thaddeus Llanes
[2020-02-25] MEDS: CALCIUM CARBONATE CHEW 500MG TAB PO SCH ×3 (07:30→16:36)
[2020-02-25] MEDS: INSULIN -REGULAR HUMAN 50 UNIT/0.5 ML ML SQ SCH ×4 (07:30→21:00)
[2020-02-25] MEDS ORDERED: FENTANYL CITR 100 MCG/2 ML ONE (08:25)
[2020-02-25] MEDS ORDERED: MIDAZOLAM HCL 2 MG/2 ML INJ ONE (08:25)
[2020-02-25] MEDS ORDERED: propofoL 200 MG/20 ML VIAL IV ONE (08:25)
[2020-02-25] MEDS ORDERED: LIDOCAINE 2% MPF 5 ML VIAL ONE (08:25)
[2020-02-25] MEDS ORDERED: HEPARIN 5000 UNIT/ML 1 ML VIAL ONE (08:28)
[2020-02-25] MEDS ORDERED: NS 0.9% VIAL 10 ML ONE (08:28)
[2020-02-25] MEDS ORDERED: NA CHLORIDE 0.9% 100 ML IV ONE (08:29)
[2020-02-25] MEDS ORDERED: LIDOCAINE 1% MPF 30 ML VIAL ONE (08:30)
[2020-02-25] MEDS ORDERED: MANNITOL 25% 12.5 GM/50 ML VIAL IV PRN (08:39)
[2020-02-25] MEDS ORDERED: NA CHLORIDE 0.9% 1,000 ML IV PRN (08:39)
[2020-02-25] MEDS ORDERED: NA CHLORIDE 0.9% 500 ML ONE (08:41)
[2020-02-25] MEDS ORDERED: CEFAZOLIN/SWI 1gm 1 GM/10 ML SYR ONE (08:58)
[2020-02-25] MEDS: TAMSULOSIN 0.4 MG SR CAP PO SCH ×3 (09:00→21:15)
[2020-02-25] MEDS ORDERED: VITAMIN D 5,000 UNIT CAP PO SCH (09:00)
[2020-02-25] MEDS: CALCITROL 0.25 MCG CAP PO SCH ×2 (09:00→11:38)
[2020-02-25] MEDS ORDERED: ALBUMIN HUMAN 25% 50 ML IV SCH (09:00)
[2020-02-25] MEDS: VITAMIN D 5,000 UNIT CAP PO SCH ×2 (09:00→11:38)
--- NOTE | 2020-02-25 10:09 | P.OP ---
Preoperative diagnosis: ARF Postoperative diagnosis: same Primary procedure: RIJ Tesio catheter Secondary procedure: Fluoroscopy Anesthesia: General Estimated blood loss: min Specimen: none Findings: Normal anatomy Complications: None Transferred to: Recovery Room Condition: Good
--- NOTE | 2020-02-25 10:41 | RAD REPORT ---
EXAM DESCRIPTION: RAD - Fluoroscopy <1 Hour - 02/25/2020 10:27 am FINDINGS: Two portable C-arm views were obtained during fluoroscopic assisted placement of a right-s ided dialysis catheter. No suspicious or unexpected finding. Fluoro time was 0.1 minutes. Cumulative dose was 1.32 mGy
--- NOTE | 2020-02-25 10:52 | PREOPCON ---
Date of Consultation: 02/25/2020 Reason: Patient needs dialysis. History Of Present Illness: Patient is a 54-year-old gentleman who has a history of GERD and present ed to the emergency room with nausea, vomiting for 4 days. He was worked up and had acute renal fail ure. His kidney function has not improved. He had hyperkalemia which was managed medically and Neph rology team has been following him and now he requires dialysis, and therefore, I was consulted for p utting a tunnel catheter. He is awake, alert. No complaints this morning. No fever or chills this morning. He was tested for COVID, it was negative. Review of Systems: No sore throat, runny nose, cough, headaches, dizziness, or chest pain and currently no fever or chil ls. Review of systems otherwise unremarkable. Past Medical History: Significant for GERD. Past Surgical History: Negative. Allergies: NONE. Social History: Patient does not smoke. Denies drinking. Physical Examination: Vital Signs: Stable. He is afebrile General: He is awake, alert, and oriented x3. Head and neck: Cranial nerves 2 through 12 grossly within normal limits. No neck masses. No JVD. Throat clear. Neck is supple. Chest: Clear. Heart: S1 and S2. Abdomen: Soft. Extremities: Neurovascularly intact. Neuro: Nonfocal. Laboratory Data: White count 11.6, H and H is 9.1 and 26.0. Please note, he was admitted with H and H of 7.8 and 22.7. Prior to that it was 6.9 and 20.6 on February 21 and he was transfused and GI has s een the patient as well. His INR is 1.02. His BUN is 93, creatinine is 19.8, potassium is 4.1, CO2 i s 27. Assessment: Acute renal failure requiring dialysis. Recommendations: N.p.o., IV fluid, IV antibiotics. To the OR for tunnel catheter placement. Patien t understands the risks, benefits, and alternatives and agrees to procedure. /MODL Voice ID: [id number] Report ID: [id number]
--- NOTE | 2020-02-25 11:05 | RAD REPORT ---
EXAM DESCRIPTION: RAD - Chest Single View - 02/25/2020 10:54 am CLINICAL HISTORY: s/p tesio COMPARISON: Portable Tori TECHNIQUE: AP portable chest image was obtained 02/25/2020 10:54 am . FINDINGS: Right-sided Tessio catheter has been placed and is in good position in the distal SVC. Rig ht-side PICC line remains in place with the tip in the mid to distal SVC. No pneumothorax is present. No acute lung parenchymal finding seen. Heart size and vasculature are normal range and stable. Delete select IMPRESSION: No pneumothorax seen following placement of a right-sided Tessio catheter.
--- NOTE | 2020-02-25 11:37 | OP ---
Date of Procedure: 02/25/2020 Surgeon: Santy Philip MD Preoperative Diagnosis: Acute renal failure. Postoperative Diagnosis: Acute renal failure. Procedure: Placement of right IJ testing catheter and interpretation of intraoperative fluoroscopy. Estimated Blood Loss: Minimal. Specimen: None. Findings: Normal anatomy. Anesthesia: General. Complications: None. Disposition: Patient tolerated the procedure in stable condition, taken to Recovery in good general condition. Description Of Procedure: Patient was brought to the OR and placed in supine position. General anes thesia was begun. Patient was prepped and draped in usual sterile fashion. Lidocaine 1% was infiltr ated locally. An 18-gauge needle was used to access the right IJ vein. Guidewire was passed. Posit ion was confirmed with fluoroscopy. Counterincision made and then tunneling device was used to tunne l the catheter between the 2 wounds and then vein dilated and Seldinger technique used and tip of the catheter was placed in the SVC under fluoroscopy. Catheter flushed with heparin and packed with hep cassidy with good blood flow. 3-0 chromic used to close subcu tissue and close the skin. Then 3-0 nylo n used to secure the tube to the chest wall. Sterile dressing was applied. Patient was awakened and taken to Recovery in good general cond ition. Chest x-ray has been ordered. KASHIF/DOUGIE Voice ID: [id number] Report ID: [id number]
--- NOTE | 2020-02-25 13:22 | P.PN ---
Subjective Date of Service: 02/25/20 Primary Care Provider: none Chief Complaint: GI hemorrhage acute renal failure Subjective: Doing well Physical Examination - Vital Signs Temperature: 97.1 F Blood Pressure: 178/84 Pulse: 66 Respirations: 16 Pulse Ox (%): 93 - Physical Exam General: Alert, Cooperative HEENT: Atraumatic Neck: Supple Respiratory: Clear to auscultation bilaterally, Normal air movement Cardiovascular: Normal pulses, Regular rate/rhythm Gastrointestinal: Normal bowel sounds, Soft and benign, Non-distended, No tenderness, No masses, No rebound, No guarding Neurological: Normal speech, Normal strength at 5/5 x4 extr, Normal tone, Normal affect - Studies Microbiology Data (last 24 hrs): 02/22/20 10:59 Throat Culture & Sensitivity - Final NORMAL UPPER RESPIRATORY ESTELLE GROWN. Medications List Reviewed: Yes Assessment & Plan Discharge Plan: Home Plan to discharge in: Greater than 2 days Physician Review Additional Text: Impression: Upper GI bleed with acute anemia likely from peptic ulcer disease status post EGD Hyperkalemia Acute kidney failure likely with underlying chronic renal disease now end-stage renal disease requiring dialysis Hypertension Elevated lipase etiology unclear Plan: Upper GI bleed with acute anemia likely from peptic ulcer disease status post EGD: Hemoglobin remained stable. EGD performed. Will review findings. Patient with gastritis. Will advance diet slowly. Continue PPI. Patient to get hemodialysis catheter placed due to acute renal failure. Will start dialysis. Patient likely now with end-stage renal disease on hemodialysis. Case discussed with social problems specialist to help qualify patient. Home once this can be arranged as an outpatient. Acute kidney failure likely with underlying chronic renal disease now end-stage renal disease requiring dialysis: Patient will have dialysis catheter placed. Dialysis to be initiated. Patient now with end-stage renal disease on hemodialysis. Patient will likely require this long-term. Social work to help with this. Will discuss further with nephrology. Hypertension: Blood pressure elevated. Will start Norvasc. Will adjust accordingly. Elevated lipase etiology unclear: Overall stable. Time Spent Managing Pts Care (In Minutes): 55
[2020-02-25] MEDS: HYDRALAZINE HCL 20 MG/ML VIAL IV PRN (21:14)
[2020-02-25] MEDS: MAGNESIUM OXIDE 400 MG TAB PO SCH (21:15)
[2020-02-26] MEDS: HYDRALAZINE HCL 20 MG/ML VIAL IV PRN ×2 (03:05→09:29)
[2020-02-26] MEDS: CODEINE 30MG/APAP 300MG TAB PO PRN ×4 (03:06→23:39)
[2020-02-26 05:11] LABS: Absolute Lymphocytes (CBC) 0.8 K/uL (0.7-4.9); Hematocrit 26.9 % (39.6-49.0); Lymphocytes % 8.1 % (15.3-44.8); MPV 8.5 fL (7.6-11.3)
[2020-02-26 06:02] LABS: Magnesium 2.1 mg/dL (1.8-2.4); Potassium 3.9 mmol/L (3.5-5.1)
[2020-02-26] MEDS: INSULIN -REGULAR HUMAN 50 UNIT/0.5 ML ML SQ SCH ×4 (07:30→21:00)
[2020-02-26] MEDS: ONDANSETRON 4 MG/2 ML VIAL IV PRN ×3 (07:54→21:51)
[2020-02-26] MEDS: Ringers Lactate 1,000 ML IV SCH ×2 (07:56→18:05)
[2020-02-26] MEDS: CALCITROL 0.25 MCG CAP PO SCH (07:57)
[2020-02-26] MEDS: CALCIUM CARBONATE CHEW 500MG TAB PO SCH ×3 (07:57→16:11)
[2020-02-26] MEDS: TAMSULOSIN 0.4 MG SR CAP PO SCH ×2 (07:57→23:40)
[2020-02-26] MEDS: VITAMIN D 5,000 UNIT CAP PO SCH (07:57)
[2020-02-26] MEDS: PANTOPRAZOLE INJ 80 MG in NA CHLORIDE 0.9% 250 ML IV SCH ×2 (08:00→18:05)
--- NOTE | 2020-02-26 08:11 | P.PN ---
Subjective Date of Service: 02/26/20 Primary Care Provider: none Chief Complaint: GI hemorrhage acute renal failure Subjective: No new changes Review of Systems General: Unremarkable Eyes: Unremarkable ENT: Unremarkable Respiratory: Unremarkable Cardiovascular: Unremarkable Gastrointestinal: Unremarkable Genitourinary: Unremarkable Musculoskeletal: Unremarkable Integumentary: Unremarkable Neurological: Unremarkable Lymphatics: Unremarkable Physical Examination - Vital Signs Temperature: 98.6 F Blood Pressure: 160/77 Pulse: 94 Respirations: 18 Pulse Ox (%): 96 - Physical Exam General: Alert, In no apparent distress, Oriented x3 HEENT: Atraumatic, Normocephalic, PERRLA Neck: Supple Respiratory: Clear to auscultation bilaterally, Normal air movement Cardiovascular: Regular rate/rhythm, Normal S1 S2 Capillary refill: <2 Seconds Gastrointestinal: Normal bowel sounds, Soft and benign, Non-distended Musculoskeletal: No erythema, No tenderness Integumentary: No tenderness/swelling, No erythema Neurological: Normal speech, Normal tone, Sensation intact Urinary: Dialysis catheter (To IJ) - Studies Medications List Reviewed: Yes Assessment & Plan Discharge Plan: Home Plan to discharge in: Greater than 2 days - Code Status/Comfort Care Code Status Assessed: Yes (Pt full code) Physician Review Additional Text: Impression: Upper GI bleed with acute anemia likely from peptic ulcer disease status post EGD Hyperkalemia Acute kidney failure likely with underlying chronic renal disease now end-stage renal disease requiring dialysis Hypertension Elevated lipase etiology unclear Plan: Upper GI bleed with acute anemia likely from peptic ulcer disease status post EGD: Hemoglobin has remained stable. EGD performed. Will review findings. Patient with gastritis. Will advance diet slowly. Continue PPI. Patient had dialysis catheter placed to IJ yesterday, pt had dialysis treatment yesterday as well. Patient likely now with end-stage renal disease on hemodialysis. Case discussed with psychosocial rehabilitation counselor to help qualify patient. Home once this can be arranged as an outpatient. Acute kidney failure likely with underlying chronic renal disease now end-stage renal disease requiring dialysis: Patient will likely require this long-term. Patient had dialysis catheter placed to IJ yesterday, pt had dialysis treatment yesterday as well. Social work to help with this. Will discuss further with nephrology. Hypertension: Blood pressure elevated. Will start Norvasc. Will adjust accordingly. Elevated lipase etiology unclear: Overall stable. Critical Care: No Time Spent Managing Pts Care (In Minutes): 55
[2020-02-26] MEDS ORDERED: AMLODIPINE 5 MG TAB PO SCH (09:00)
--- NOTE | 2020-02-26 13:05 | PN ---
Date of Progress Note: 02/26/2020 Subjective: Patient was seen and examined at bedside. He states that he is having some nausea and t hrew up his food. Tolerated dialysis well yesterday. Objective: Vital Signs: Have been reviewed and are stable. General: He appears in no acute distress. Lungs: Clear to auscultation. Abdomen: Soft. Extremities: Showed no evidence of edema. Laboratory Data: At this time are showing sodium of 140, potassium of 3.9, chloride of 104, BUN of 5 2, and creatinine of 13.4. CBC showing stable hemoglobin, hematocrit, and platelet count. Current Medications: Have been reviewed in detail. Impression: 1.End-stage renal disease, on dialysis, started on dialysis on 02/24. 2.Hypertension, improving. 3.Anemia secondary to possibly from gastrointestinal bleed and also from end-stage renal disease. W e will start the patient on Epogen to maintain his hemoglobin levels to prevent further episodes of b lood transfusion. 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 5.Social issues, homelessness. Plan: Patient is tolerated his first dialysis treatment well. We will plan for second dialysis kj tment today and we will arrange for social work to establish him at [facility] for chronic dialysis therapy. Continue all other medications and plan of care. BEBE/DOUGIE Voice ID: [id number] Report ID: [id number]
--- NOTE | 2020-02-26 13:17 | P.PN ---
Subjective Date of Service: 02/27/20 Primary Care Provider: none Chief Complaint: GI hemorrhage, acute renal failure Subjective: Improving (EGD revealed severe esophagitis with large ulcer, gastritis with multiple ulcers, and duodenitis with multiple ulcers as cause of his UGI bleed. Still with some nausea today, causing difficulty eating food.) Review of Systems 10-point ROS is otherwise unremarkable General: Weakness Gastrointestinal: Nausea Physical Examination - Vital Signs Temperature: 98.1 F Blood Pressure: 139/75 Pulse: 97 Respirations: 18 Pulse Ox (%): 93 - Physical Exam General: Alert, In no apparent distress, Oriented x3, Cooperative HEENT: Atraumatic, Normocephalic, PERRLA, EOMI Neck: Supple Respiratory: Normal air movement Cardiovascular: Normal pulses Gastrointestinal: Soft and benign, No rebound, No guarding Neurological: Normal speech - Studies Medications List Reviewed: Yes Assessment And Plan - Current Problems (Diagnosis) (1) GI bleed Current Visit: Yes Status: Acute (2) Melena Current Visit: Yes Status: Acute (3) Epigastric abdominal pain Current Visit: Yes Status: Acute (4) Nausea & vomiting Current Visit: Yes Status: Acute (5) Anemia Current Visit: Yes Status: Acute (6) Renal failure Current Visit: Yes Status: Acute Qualifiers: Chronic kidney disease stage: stage 5, not on chronic dialysis - Plan REC: 1) continue PPI therapy 2) monitor labs Physician Review Additional Text: Impression: Upper GI bleed with acute anemia likely from peptic ulcer disease status post EGD Hyperkalemia Acute kidney failure likely with underlying chronic renal disease now end-stage renal disease requiring dialysis Hypertension Elevated lipase etiology unclear Plan: Upper GI bleed with acute anemia likely from peptic ulcer disease status post EGD: Hemoglobin has remained stable. EGD performed. Will review findings. Patient with gastritis. Will advance diet slowly. Continue PPI. Patient had dialysis catheter placed to IJ yesterday, pt had dialysis treatment yesterday as well. Patient likely now with end-stage renal disease on hemodialysis. Case discussed with social work coordinator to help qualify patient. Home once this can be arranged as an outpatient. Acute kidney failure likely with underlying chronic renal disease now end-stage renal disease requiring dialysis: Patient will likely require this long-term. Patient had dialysis catheter placed to IJ yesterday, pt had dialysis treatment yesterday as well. Social work to help with this. Will discuss further with nephrology. Hypertension: Blood pressure elevated. Will start Norvasc. Will adjust accordingly. Elevated lipase etiology unclear: Overall stable.
[2020-02-26] MEDS: MAGNESIUM OXIDE 400 MG TAB PO SCH (21:00)
[2020-02-27 03:10] LABS: HBsAG Nonreactive (Nonreactive)
[2020-02-27] MEDS: PANTOPRAZOLE INJ 80 MG in NA CHLORIDE 0.9% 250 ML IV SCH ×2 (03:48→16:00)
[2020-02-27] MEDS: Ringers Lactate 1,000 ML IV SCH ×3 (03:48→21:54)
[2020-02-27 05:09] LABS: Absolute Lymphocytes (CBC) 1.2 K/uL (0.7-4.9); Basophils % 0.7 % (0-1.3); Lymphocytes % 14.2 % (15.3-44.8); MPV 8.4 fL (7.6-11.3); RBC Red Blood Cell Count 2.72 M/uL (4.33-5.43)
[2020-02-27 05:32] LABS: Potassium 4.1 mmol/L (3.5-5.1)
[2020-02-27] MEDS: CODEINE 30MG/APAP 300MG TAB PO PRN ×3 (05:58→21:46)
[2020-02-27] MEDS: INSULIN -REGULAR HUMAN 50 UNIT/0.5 ML ML SQ SCH ×4 (07:30→21:00)
[2020-02-27 07:33] LABS: Blood Morphology Comment NOT SEEN (NOT SEEN); Platelet Estimate ADEQ
[2020-02-27] MEDS: AMLODIPINE 10 MG TAB PO SCH (07:35)
[2020-02-27] MEDS: ONDANSETRON 4 MG/2 ML VIAL IV PRN ×3 (07:35→16:10)
[2020-02-27] MEDS: CALCIUM CARBONATE CHEW 500MG TAB PO SCH ×3 (07:35→16:30)
[2020-02-27] MEDS: TAMSULOSIN 0.4 MG SR CAP PO SCH ×2 (07:36→21:48)
[2020-02-27] MEDS: VITAMIN D 5,000 UNIT CAP PO SCH (07:36)
[2020-02-27] MEDS: CALCITROL 0.25 MCG CAP PO SCH (07:36)
[2020-02-27] MEDS ORDERED: PROMETHAZINE INJ 25 MG/ML AMP IV PRN (08:14)
--- NOTE | 2020-02-27 10:33 | P.PN ---
Subjective Date of Service: 02/27/20 Primary Care Provider: none Chief Complaint: GI hemorrhage, acute renal failure Subjective: No new changes, No C/O voiced Review of Systems General: Unremarkable Eyes: Unremarkable ENT: Unremarkable Respiratory: Unremarkable Cardiovascular: Unremarkable Gastrointestinal: Nausea Genitourinary: Unremarkable Musculoskeletal: Unremarkable Physical Examination - Vital Signs Temperature: 96.8 F Blood Pressure: 157/79 Pulse: 88 Respirations: 18 Pulse Ox (%): 93 - Physical Exam General: Alert, In no apparent distress, Oriented x3 HEENT: Atraumatic, Normocephalic Neck: Supple Respiratory: Clear to auscultation bilaterally, Normal air movement Cardiovascular: Regular rate/rhythm, Normal S1 S2 Capillary refill: <2 Seconds Gastrointestinal: Normal bowel sounds, Soft and benign Musculoskeletal: No contractures, No erythema Integumentary: No significant lesion, No tenderness/swelling Neurological: Normal speech Urinary: Dialysis catheter - Studies Medications List Reviewed: Yes Assessment & Plan Discharge Plan: Home Plan to discharge in: 24 Hours - Code Status/Comfort Care Code Status Assessed: Yes (Patient is full code) Physician Review Additional Text: Impression: Upper GI bleed with acute anemia likely from peptic ulcer disease status post EGD Hyperkalemia Acute kidney failure likely with underlying chronic renal disease now end-stage renal disease requiring dialysis Hypertension Elevated lipase etiology unclear Plan: Upper GI bleed with acute anemia likely from peptic ulcer disease status post EGD: Hemoglobin has remained stable. EGD revealed esophagitis, multiple gastric ulcers and duodenal ulcer. GI recommends continue with PPI therapy. Patient with gastritis. Will advance diet slowly. Continue PPI. Patient also with some nausea, currently is on GI soft diet. Patient continues with this will go back to full liquids. Anticipate discharge in 24-48 hr or as soon as social worker palliative care can arrange for patient to receive outpatient dialysis. Acute kidney failure likely with underlying chronic renal disease now end-stage renal disease requiring dialysis: Patient will likely require this long-term. Patient has had dialysis catheter placed to IJ, pt had dialysis treatment yesterday. Social work to assist in obtaining outpatient dialysis chair.. Will discuss further with nephrology. Hypertension: Blood pressure elevated. Will continue Norvasc and adjust as needed. Elevated lipase etiology unclear: Overall stable. Critical Care: No Time Spent Managing Pts Care (In Minutes): 55
--- NOTE | 2020-02-27 13:04 | P.PN ---
Subjective Date of Service: 02/27/20 Primary Care Provider: none Chief Complaint: GI hemorrhage, acute renal failure Subjective: No new changes (Patient in hemodialysis now.) Physical Examination - Vital Signs Temperature: 98.3 F Blood Pressure: 167/82 Pulse: 94 Respirations: 18 Pulse Ox (%): 94 - Studies Medications List Reviewed: Yes Assessment And Plan - Current Problems (Diagnosis) (1) GI bleed Current Visit: Yes Status: Acute (2) Melena Current Visit: Yes Status: Acute (3) Epigastric abdominal pain Current Visit: Yes Status: Acute (4) Nausea & vomiting Current Visit: Yes Status: Acute (5) Anemia Current Visit: Yes Status: Acute (6) Renal failure Current Visit: Yes Status: Acute Qualifiers: Chronic kidney disease stage: stage 5, not on chronic dialysis - Plan REC: 1) continue PPI therapy 2) monitor labs Physician Review Additional Text: Impression: Upper GI bleed with acute anemia likely from peptic ulcer disease status post EGD Hyperkalemia Acute kidney failure likely with underlying chronic renal disease now end-stage renal disease requiring dialysis Hypertension Elevated lipase etiology unclear Plan: Upper GI bleed with acute anemia likely from peptic ulcer disease status post EGD: Hemoglobin has remained stable. EGD revealed esophagitis, multiple gastric ulcers and duodenal ulcer. GI recommends continue with PPI therapy. Patient with gastritis. Will advance diet slowly. Continue PPI. Patient also with some nausea, currently is on GI soft diet. Patient continues with this will go back to full liquids. Anticipate discharge in 24-48 hr or as soon as bilingual social worker can arrange for patient to receive outpatient dialysis. Acute kidney failure likely with underlying chronic renal disease now end-stage renal disease requiring dialysis: Patient will likely require this long-term. Patient has had dialysis catheter placed to IJ, pt had dialysis treatment yesterday. Social work to assist in obtaining outpatient dialysis chair.. Will discuss further with nephrology. Hypertension: Blood pressure elevated. Will continue Norvasc and adjust as needed. Elevated lipase etiology unclear: Overall stable.
[2020-02-27] MEDS: EPOETIN ALFA 10,000 UNIT/ML VIAL IV SCH (13:35)
[2020-02-27] MEDS: MAGNESIUM OXIDE 400 MG TAB PO SCH (21:00)
[2020-02-27] MEDS ORDERED: EPOETIN ALFA-EPBX 10,000 UNIT/ML VIAL SQ ONE (22:40)
--- NOTE | 2020-02-27 22:48 | P.PN ---
Date of Service: 02/27/20 Vital Signs Temp Pulse Resp BP Pulse Ox 99.0 F 100 H 14 171/81 H 92 02/27/20 16:00 02/27/20 16:00 02/27/20 21:46 02/27/20 16:00 02/27/20 21:46 Medications Acetaminophen/Codeine Phosphate (Tylenol W/Codeine #3 Tab) 1 tab PO Q6H PRN PRN Reason: Pain scale 2-4 (Mild) Stop: 03/23/20 16:35 Last Admin: 02/27/20 21:46 Dose: 1 tab Documented by: Amlodipine Besylate (Norvasc) 10 mg PO DAILY [facility] Stop: 03/28/20 09:01 Last Admin: 02/27/20 07:35 Dose: 10 mg Documented by: Calcitriol (Rocaltrol) 0.5 mcg PO DAILY [facility] Stop: 03/24/20 12:01 Last Admin: 02/27/20 07:36 Dose: 0.5 mcg Documented by: Calcium Carbonate/Glycine (Tums Regular) 1,000 mg PO AC [facility] Stop: 03/26/20 07:31 Last Admin: 02/27/20 16:30 Dose: Not Given Documented by: Cholecalciferol (Vitamin D 5,000 Iu Cap) 10,000 unit PO DAILY [facility] Stop: 03/26/20 09:01 Last Admin: 02/27/20 07:36 Dose: 10,000 unit Documented by: Dextrose (Dextrose 50% Syringe/Vial) 12.5 gm IV PRN PRN; Protocol PRN Reason: HYPOGLYCEMIA Stop: 03/24/20 09:02 Epoetin Harpreet (Retacrit) 10,000 unit IV EVERY HD [facility] Stop: 03/27/20 12:31 Last Admin: 02/27/20 13:35 Dose: 10,000 unit Documented by: Glucagon (Glucagen) 1 mg IM 1X PRN; Protocol PRN Reason: HYPOGLYCEMIA Stop: 03/24/20 09:02 Heparin Sodium (Porcine) (Heparin 1,000 Units/Ml) 2,000 unit IV EVERY HD [facility] Stop: 03/02/20 12:01 Last Admin: 02/27/20 12:28 Dose: 2,000 unit Documented by: Hydralazine HCl (Apresoline) 10 mg IV Q6HP PRN PRN Reason: Titrate to SBP (MUST DEFINE) Stop: 03/26/20 20:00 Last Admin: 02/26/20 09:29 Dose: 10 mg Documented by: Sodium Chloride (Sodium Chloride) 250 mls @ 0 mls/hr IV .Q0M [facility] Stop: 03/23/20 14:01 Last Admin: 02/22/20 21:03 Dose: 250 mls Documented by: Pantoprazole Sodium 80 mg/ (Sodium Chloride) 250 mls @ 25 mls/hr IV Q10H [facility]; Protocol Stop: 03/24/20 12:01 Last Admin: 02/27/20 16:00 Dose: 250 mls Documented by: Lactated Ringer's (Lactated Ringers) 1,000 mls @ 100 mls/hr IV .Q10H [facility] Stop: 03/25/20 19:01 Last Admin: 02/27/20 21:54 Dose: 1,000 mls Documented by: Albumin Human (Albumin 25%) 50 mls @ 100 mls/hr IV EVERY HD [facility] Stop: 03/26/20 09:01 Insulin Human Regular (Novolin -R) 0 unit SQ ACHS [facility]; Protocol Stop: 03/25/20 07:31 Last Admin: 02/27/20 21:00 Dose: Not Given Documented by: Magnesium Oxide (Mag 0x Tab) 400 mg PO BEDTIME [facility] Stop: 03/25/20 21:01 Last Admin: 02/27/20 21:00 Dose: 400 mg Documented by: Mannitol (Mannitol 12.5 Gm/50 Ml Vial) 12.5 gm IV EVERY HD PRN PRN Reason: Titrate to SBP (MUST DEFINE) Stop: 03/26/20 08:40 Ondansetron HCl (Zofran) 4 mg IV Q4H PRN PRN Reason: NAUSEA / VOMITING Stop: 03/23/20 20:25 Last Admin: 02/27/20 16:10 Dose: 4 mg Documented by: Promethazine HCl (Phenergan) 12.5 mg IV Q6H PRN PRN Reason: NAUSEA / VOMITING Stop: 03/28/20 08:15 Sodium Chloride (Normal Saline Flush) 10 ml IV BID [facility] Stop: 03/23/20 21:01 Last Admin: 02/27/20 21:48 Dose: 10 ml Documented by: Tamsulosin HCl (Flomax) 0.4 mg PO BID [facility] Stop: 03/25/20 21:01 Last Admin: 02/27/20 21:48 Dose: 0.4 mg Documented by: Microbiology Results 02/22/20 10:59 Throat Culture & Sensitivity - Final NORMAL UPPER RESPIRATORY ESTELLE GROWN. 02/22/20 11:01 Nasopharnyx Coronavirus COVID-19 PCR - Final 02/22/20 12:50 Stool Occult Blood - Final 02/22/20 10:59 Nasopharnyx Influenza Type A Antigen Screen - Final 02/22/20 10:59 Nasopharnyx Influenza Type B Antigen Screen - Final 02/22/20 10:59 Throat Group A Streptococcus Rapid Screen - Final Assessment/ Plan: Nephrology CPS stable without CP or SOB. Doing well. No acute events overnight. Vitals, medications, blood work and imaging reviewed in the chart. NAD. MMM. Neck supple. CTA. RRR. Soft Abd. No C/C/E. No rash. AAO. Normal Speech. A/ Suspected ESRD Hyperkalemia Acidosis HTN DM II with CKD/ Proteinuria Anemia in CKD BPH with LUTS MIAH/ Secondary HyperPTH Hypocalcemia/ HyperPO4 Vitamin D Deficiency Hypomagnesemia P/ Continue current POC and Medications. Acute HD as ordered. Start Coreg BID. Give Retacrit. No NSAIDs. AM labs. Daily weight. Case reviewed with Dr. Jo Placement pending at the [facility].
--- NOTE | 2020-02-27 22:51 | P.PN ---
Date of Service: 02/25/20 Vital Signs Temp Pulse Resp BP Pulse Ox 99.0 F 100 H 14 171/81 H 92 02/27/20 16:00 02/27/20 16:00 02/27/20 21:46 02/27/20 16:00 02/27/20 21:46 Medications Acetaminophen/Codeine Phosphate (Tylenol W/Codeine #3 Tab) 1 tab PO Q6H PRN PRN Reason: Pain scale 2-4 (Mild) Stop: 03/23/20 16:35 Last Admin: 02/27/20 21:46 Dose: 1 tab Documented by: Amlodipine Besylate (Norvasc) 10 mg PO DAILY [facility] Stop: 03/28/20 09:01 Last Admin: 02/27/20 07:35 Dose: 10 mg Documented by: Calcitriol (Rocaltrol) 0.5 mcg PO DAILY [facility] Stop: 03/24/20 12:01 Last Admin: 02/27/20 07:36 Dose: 0.5 mcg Documented by: Calcium Carbonate/Glycine (Tums Regular) 1,000 mg PO AC [facility] Stop: 03/26/20 07:31 Last Admin: 02/27/20 16:30 Dose: Not Given Documented by: Carvedilol (Coreg) 12.5 mg PO BID 6AM 6PM [facility] Stop: 03/29/20 06:01 Cholecalciferol (Vitamin D 5,000 Iu Cap) 10,000 unit PO DAILY [facility] Stop: 03/26/20 09:01 Last Admin: 02/27/20 07:36 Dose: 10,000 unit Documented by: Dextrose (Dextrose 50% Syringe/Vial) 12.5 gm IV PRN PRN; Protocol PRN Reason: HYPOGLYCEMIA Stop: 03/24/20 09:02 Epoetin Harpreet (Retacrit) 10,000 unit IV EVERY HD [facility] Stop: 03/27/20 12:31 Last Admin: 02/27/20 13:35 Dose: 10,000 unit Documented by: Glucagon (Glucagen) 1 mg IM 1X PRN; Protocol PRN Reason: HYPOGLYCEMIA Stop: 03/24/20 09:02 Heparin Sodium (Porcine) (Heparin 1,000 Units/Ml) 2,000 unit IV EVERY HD [facility] Stop: 03/02/20 12:01 Last Admin: 02/27/20 12:28 Dose: 2,000 unit Documented by: Hydralazine HCl (Apresoline) 10 mg IV Q6HP PRN PRN Reason: Titrate to SBP (MUST DEFINE) Stop: 03/26/20 20:00 Last Admin: 02/26/20 09:29 Dose: 10 mg Documented by: Sodium Chloride (Sodium Chloride) 250 mls @ 0 mls/hr IV .Q0M [facility] Stop: 03/23/20 14:01 Last Admin: 02/22/20 21:03 Dose: 250 mls Documented by: Pantoprazole Sodium 80 mg/ (Sodium Chloride) 250 mls @ 25 mls/hr IV Q10H [facility]; Protocol Stop: 03/24/20 12:01 Last Admin: 02/27/20 16:00 Dose: 250 mls Documented by: Lactated Ringer's (Lactated Ringers) 1,000 mls @ 100 mls/hr IV .Q10H [facility] Stop: 03/25/20 19:01 Last Admin: 02/27/20 21:54 Dose: 1,000 mls Documented by: Albumin Human (Albumin 25%) 50 mls @ 100 mls/hr IV EVERY HD [facility] Stop: 03/26/20 09:01 Insulin Human Regular (Novolin -R) 0 unit SQ ACHS [facility]; Protocol Stop: 03/25/20 07:31 Last Admin: 02/27/20 21:00 Dose: Not Given Documented by: Magnesium Oxide (Mag 0x Tab) 400 mg PO BEDTIME [facility] Stop: 03/25/20 21:01 Last Admin: 02/27/20 21:00 Dose: 400 mg Documented by: Mannitol (Mannitol 12.5 Gm/50 Ml Vial) 12.5 gm IV EVERY HD PRN PRN Reason: Titrate to SBP (MUST DEFINE) Stop: 03/26/20 08:40 Ondansetron HCl (Zofran) 4 mg IV Q4H PRN PRN Reason: NAUSEA / VOMITING Stop: 03/23/20 20:25 Last Admin: 02/27/20 16:10 Dose: 4 mg Documented by: Promethazine HCl (Phenergan) 12.5 mg IV Q6H PRN PRN Reason: NAUSEA / VOMITING Stop: 03/28/20 08:15 Sodium Chloride (Normal Saline Flush) 10 ml IV BID [facility] Stop: 03/23/20 21:01 Last Admin: 02/27/20 21:48 Dose: 10 ml Documented by: Tamsulosin HCl (Flomax) 0.4 mg PO BID [facility] Stop: 03/25/20 21:01 Last Admin: 02/27/20 21:48 Dose: 0.4 mg Documented by: Microbiology Results 02/22/20 10:59 Throat Culture & Sensitivity - Final NORMAL UPPER RESPIRATORY ESTELLE GROWN. 02/22/20 11:01 Nasopharnyx Coronavirus COVID-19 PCR - Final 02/22/20 12:50 Stool Occult Blood - Final 02/22/20 10:59 Nasopharnyx Influenza Type A Antigen Screen - Final 02/22/20 10:59 Nasopharnyx Influenza Type B Antigen Screen - Final 02/22/20 10:59 Throat Group A Streptococcus Rapid Screen - Final Assessment/ Plan: Nephrology CPS stable without CP or SOB. Feeling better. No acute events overnight. Vitals, medications, blood work and imaging reviewed in the chart. NAD. MMM. Neck supple. CTA. RRR. Soft Abd. No C/C/E. No rash. AAO. Normal Speech. A/ Suspected ESRD Hyperkalemia Acidosis HTN DM II with CKD/ Proteinuria Anemia in CKD BPH with LUTS MIAH/ Secondary HyperPTH Hypocalcemia/ HyperPO4 Vitamin D Deficiency Hypomagnesemia P/ Continue current POC and Medications. Acute HD as ordered. Give Retacrit prn. Continue Vitamin D. No NSAIDs. AM labs. Daily weight. Placement pending at the [facility].
[2020-02-27 23:02] LABS: Vitamin D 1,25-Dihydroxy Total 8 pg/mL (18-72); Vitamin D,1,25-OH2, D2 <8 pg/mL
[2020-02-28] MEDS ORDERED: EPOETIN ALFA 10,000 UNIT/ML VIAL ONE (00:32)
[2020-02-28] MEDS: PANTOPRAZOLE INJ 80 MG in NA CHLORIDE 0.9% 250 ML IV SCH ×2 (00:33→09:41)
[2020-02-28] MEDS: carvediloL 12.5 MG TAB PO SCH ×2 (05:42→17:02)
[2020-02-28 05:50] LABS: Absolute Lymphocytes (CBC) 1.1 K/uL (0.7-4.9); Basophils % 0.9 % (0-1.3); Hematocrit 24.4 % (39.6-49.0); Lymphocytes % 13.9 % (15.3-44.8); MPV 7.8 fL (7.6-11.3); RBC Red Blood Cell Count 2.69 M/uL (4.33-5.43)
[2020-02-28 06:06] LABS: Magnesium 1.9 mg/dL (1.8-2.4); Potassium 4.1 mmol/L (3.5-5.1)
[2020-02-28] MEDS: INSULIN -REGULAR HUMAN 50 UNIT/0.5 ML ML SQ SCH ×4 (07:30→21:00)
[2020-02-28] MEDS: ONDANSETRON 4 MG/2 ML VIAL IV PRN ×2 (07:45→11:54)
[2020-02-28] MEDS: CODEINE 30MG/APAP 300MG TAB PO PRN ×3 (08:15→22:00)
[2020-02-28] MEDS: POLYETHYL GLY 3350 17 GM/DOSE PO PRN (08:15)
[2020-02-28] MEDS: DOCUSATE NA 100 MG CAP PO SCH ×2 (08:16→21:51)
[2020-02-28] MEDS: TAMSULOSIN 0.4 MG SR CAP PO SCH ×2 (08:16→21:51)
[2020-02-28] MEDS: VITAMIN D 5,000 UNIT CAP PO SCH (08:16)
[2020-02-28] MEDS: CALCITROL 0.25 MCG CAP PO SCH (08:16)
[2020-02-28] MEDS: AMLODIPINE 10 MG TAB PO SCH (08:17)
--- NOTE | 2020-02-28 08:30 | P.PN ---
Subjective Date of Service: 02/28/20 Primary Care Provider: none Chief Complaint: GI hemorrhage, acute renal failure Subjective: No new changes, No C/O voiced Review of Systems General: Unremarkable Eyes: Unremarkable ENT: Unremarkable Respiratory: Unremarkable Cardiovascular: Unremarkable Gastrointestinal: Unremarkable (Nausea has improved from yesterday, patient tolerating diet.) Genitourinary: Unremarkable Musculoskeletal: Unremarkable Integumentary: Unremarkable Neurological: Unremarkable Lymphatics: Unremarkable Physical Examination - Vital Signs Temperature: 98.9 F Blood Pressure: 146/81 Pulse: 90 Respirations: 18 Pulse Ox (%): 98 - Physical Exam General: Alert, In no apparent distress, Oriented x3 HEENT: Atraumatic, Normocephalic Neck: Supple Respiratory: Clear to auscultation bilaterally, Normal air movement Cardiovascular: Normal pulses, Normal S1 S2 Capillary refill: <2 Seconds Gastrointestinal: Normal bowel sounds, Soft and benign Musculoskeletal: No erythema, No tenderness Integumentary: No significant lesion, No tenderness/swelling Neurological: Normal strength at 5/5 x4 extr, Normal tone, Sensation intact Urinary: Dialysis catheter (In placed anterior chest wall, PICC line in place, Kirby catheter in place) - Studies Medications List Reviewed: Yes Assessment & Plan Discharge Plan: Home Plan to discharge in: 24 Hours - Code Status/Comfort Care Code Status Assessed: Yes (Patient is full code) Physician Review Additional Text: Impression: Upper GI bleed with acute anemia secondary to gastric and duodenal ulcers now status post EGD Hyperkalemia Acute kidney failure likely with underlying chronic renal disease now end-stage renal disease requiring dialysis Hypertension Elevated lipase etiology unclear Plan: Upper GI bleed with acute anemia likely from peptic ulcer disease status post EGD: Hemoglobin has remained stable. EGD revealed esophagitis, multiple gastric ulcers and duodenal ulcer. GI recommends continue with PPI therapy. Patient with gastritis. Will advance diet slowly. Continue PPI. Patient's nausea has improved from yesterday, patient is tolerating a diet. Patient now complaining of some mild constipation. Will provide patient with colace and MiraLax. Anticipate discharge in 24-48 hr or as soon as rn social work can arrange for patient to receive outpatient dialysis. Acute kidney failure likely with underlying chronic renal disease now end-stage renal disease requiring dialysis: Patient will likely require this long-term. Patient has had dialysis catheter placed to IJ, pt had dialysis treatment yesterday. Social work to assist in obtaining outpatient dialysis chair.. Will discuss further with nephrology. Hypertension: Blood pressure elevated. Will continue Norvasc and adjust as needed. Elevated lipase etiology unclear: Overall stable, will obtain repeat lipase level with morning labs tomorrow. Critical Care: No Time Spent Managing Pts Care (In Minutes): 55
[2020-02-28] MEDS: CALCIUM CARBONATE CHEW 500MG TAB PO SCH ×3 (09:41→17:02)
[2020-02-28] MEDS: Ringers Lactate 1,000 ML IV SCH ×2 (09:42→22:04)
--- NOTE | 2020-02-28 15:42 | P.PN ---
Subjective Date of Service: 02/28/20 Primary Care Provider: none Chief Complaint: GI hemorrhage, acute renal failure Subjective: Improving (Much less nausea and able to eat with Zofran before meals. Still IV Protonix drip. No GI bleeding.) Review of Systems General: Weakness (Improved. ), Malaise (Improved. ) Gastrointestinal: Abdominal Pain (Improved. ) Physical Examination - Vital Signs Temperature: 99.6 F Blood Pressure: 158/84 Pulse: 86 Respirations: 20 Pulse Ox (%): 92 - Physical Exam General: Alert, In no apparent distress, Oriented x3, Cooperative HEENT: Atraumatic, Normocephalic, PERRLA, EOMI Neck: Supple Respiratory: Normal air movement Cardiovascular: Normal pulses Gastrointestinal: No rebound, No guarding, Tenderness (Improved. ) Neurological: Normal speech, Normal strength at 5/5 x4 extr - Studies Medications List Reviewed: Yes Assessment And Plan - Current Problems (Diagnosis) (1) GI bleed Current Visit: Yes Status: Acute Comment: None now. (2) Melena Current Visit: Yes Status: Acute Comment: None now. (3) Epigastric abdominal pain Current Visit: Yes Status: Acute Comment: Improved. (4) Nausea & vomiting Current Visit: Yes Status: Acute Comment: Improved. (5) Anemia Current Visit: Yes Status: Acute (6) Renal failure Current Visit: Yes Status: Acute Qualifiers: Chronic kidney disease stage: stage 5, not on chronic dialysis - Plan REC: 1) change PPI from IV drip to q 12 dosing 2) monitor labs Physician Review Additional Text: Impression: Upper GI bleed with acute anemia secondary to gastric and duodenal ulcers now status post EGD Hyperkalemia Acute kidney failure likely with underlying chronic renal disease now end-stage renal disease requiring dialysis Hypertension Elevated lipase etiology unclear Plan: Upper GI bleed with acute anemia likely from peptic ulcer disease status post EGD: Hemoglobin has remained stable. EGD revealed esophagitis, multiple gastric ulcers and duodenal ulcer. GI recommends continue with PPI therapy. Patient with gastritis. Will advance diet slowly. Continue PPI. Patient's nausea has improved from yesterday, patient is tolerating a diet. Patient now complaining of some mild constipation. Will provide patient with colace and MiraLax. Anticipate discharge in 24-48 hr or as soon as social science analyst can arrange for patient to receive outpatient dialysis. Acute kidney failure likely with underlying chronic renal disease now end-stage renal disease requiring dialysis: Patient will likely require this long-term. Patient has had dialysis catheter placed to IJ, pt had dialysis treatment yesterday. Social work to assist in obtaining outpatient dialysis chair.. Will discuss further with nephrology. Hypertension: Blood pressure elevated. Will continue Norvasc and adjust as needed. Elevated lipase etiology unclear: Overall stable, will obtain repeat lipase level with morning labs tomorrow.
--- NOTE | 2020-02-28 19:04 | P.PN ---
Date of Service: 02/28/20 Vital Signs Temp Pulse Resp BP Pulse Ox 99.7 F 91 H 18 137/70 98 02/28/20 16:00 02/28/20 16:00 02/28/20 17:17 02/28/20 16:00 02/28/20 17:17 Medications Acetaminophen/Codeine Phosphate (Tylenol W/Codeine #3 Tab) 1 tab PO Q6H PRN PRN Reason: Pain scale 2-4 (Mild) Stop: 03/23/20 16:35 Last Admin: 02/28/20 17:17 Dose: 1 tab Documented by: Amlodipine Besylate (Norvasc) 10 mg PO DAILY [facility] Stop: 03/28/20 09:01 Last Admin: 02/28/20 08:17 Dose: 10 mg Documented by: Calcitriol (Rocaltrol) 0.5 mcg PO DAILY [facility] Stop: 03/24/20 12:01 Last Admin: 02/28/20 08:16 Dose: 0.5 mcg Documented by: Calcium Carbonate/Glycine (Tums Regular) 1,000 mg PO AC [facility] Stop: 03/26/20 07:31 Last Admin: 02/28/20 17:02 Dose: 1,000 mg Documented by: Carvedilol (Coreg) 12.5 mg PO BID 6AM 6PM [facility] Stop: 03/29/20 06:01 Last Admin: 02/28/20 17:02 Dose: 12.5 mg Documented by: Cholecalciferol (Vitamin D 5,000 Iu Cap) 10,000 unit PO DAILY [facility] Stop: 03/26/20 09:01 Last Admin: 02/28/20 08:16 Dose: 10,000 unit Documented by: Dextrose (Dextrose 50% Syringe/Vial) 12.5 gm IV PRN PRN; Protocol PRN Reason: HYPOGLYCEMIA Stop: 03/24/20 09:02 Docusate Sodium (Colace Cap) 100 mg PO BID [facility] Stop: 03/29/20 09:01 Last Admin: 02/28/20 08:16 Dose: 100 mg Documented by: Epoetin Harpreet (Retacrit) 10,000 unit IV EVERY HD [facility] Stop: 03/27/20 12:31 Last Admin: 02/27/20 13:35 Dose: 10,000 unit Documented by: Glucagon (Glucagen) 1 mg IM 1X PRN; Protocol PRN Reason: HYPOGLYCEMIA Stop: 03/24/20 09:02 Heparin Sodium (Porcine) (Heparin 1,000 Units/Ml) 2,000 unit IV EVERY HD [facility] Stop: 03/02/20 12:01 Last Admin: 02/27/20 12:28 Dose: 2,000 unit Documented by: Hydralazine HCl (Apresoline) 10 mg IV Q6HP PRN PRN Reason: Titrate to SBP (MUST DEFINE) Stop: 03/26/20 20:00 Last Admin: 02/26/20 09:29 Dose: 10 mg Documented by: Sodium Chloride (Sodium Chloride) 250 mls @ 0 mls/hr IV .Q0M [facility] Stop: 03/23/20 14:01 Last Admin: 02/22/20 21:03 Dose: 250 mls Documented by: Lactated Ringer's (Lactated Ringers) 1,000 mls @ 100 mls/hr IV .Q10H [facility] Stop: 03/25/20 19:01 Last Admin: 02/28/20 09:42 Dose: 1,000 mls Documented by: Albumin Human (Albumin 25%) 50 mls @ 100 mls/hr IV EVERY HD [facility] Stop: 03/26/20 09:01 Insulin Human Regular (Novolin -R) 0 unit SQ ACHS [facility]; Protocol Stop: 03/25/20 07:31 Last Admin: 02/28/20 16:30 Dose: Not Given Documented by: Magnesium Oxide (Mag 0x Tab) 400 mg PO BEDTIME [facility] Stop: 03/25/20 21:01 Last Admin: 02/27/20 21:00 Dose: 400 mg Documented by: Mannitol (Mannitol 12.5 Gm/50 Ml Vial) 12.5 gm IV EVERY HD PRN PRN Reason: Titrate to SBP (MUST DEFINE) Stop: 03/26/20 08:40 Ondansetron HCl (Zofran) 4 mg IV Q4H PRN PRN Reason: NAUSEA / VOMITING Stop: 03/23/20 20:25 Last Admin: 02/28/20 11:54 Dose: 4 mg Documented by: Pantoprazole Sodium (Protonix Inj) 40 mg IVP Q12HR [facility]; Protocol Stop: 03/29/20 21:01 Polyethylene Glycol (Glycolax) 17 gm PO DAILY PRN PRN Reason: CONSTIPATION Stop: 03/29/20 08:03 Last Admin: 02/28/20 08:15 Dose: 17 gm Documented by: Promethazine HCl (Phenergan) 12.5 mg IV Q6H PRN PRN Reason: NAUSEA / VOMITING Stop: 03/28/20 08:15 Sodium Chloride (Normal Saline Flush) 10 ml IV BID [facility] Stop: 03/23/20 21:01 Last Admin: 02/28/20 09:00 Dose: Not Given Documented by: Sodium Chloride (Sodium Chloride 10 Ml Inj) 10 ml IV UD PRN PRN Reason: Diluant Stop: 03/29/20 15:31 Tamsulosin HCl (Flomax) 0.4 mg PO BID [facility] Stop: 03/25/20 21:01 Last Admin: 02/28/20 08:16 Dose: 0.4 mg Documented by: Microbiology Results 02/22/20 10:59 Throat Culture & Sensitivity - Final NORMAL UPPER RESPIRATORY ESTELLE GROWN. 02/22/20 11:01 Nasopharnyx Coronavirus COVID-19 PCR - Final 02/22/20 12:50 Stool Occult Blood - Final 02/22/20 10:59 Nasopharnyx Influenza Type A Antigen Screen - Final 02/22/20 10:59 Nasopharnyx Influenza Type B Antigen Screen - Final 02/22/20 10:59 Throat Group A Streptococcus Rapid Screen - Final Assessment/ Plan: Nephrology CPS stable without CP or SOB. Feeling better. No BM. No acute events overnight. Vitals, medications, blood work and imaging reviewed in the chart. NAD. MMM. Neck supple. CTA. RRR. Soft Abd. No C/C/E. No rash. AAO. Normal Speech. A/ Suspected ESRD Hyperkalemia Acidosis HTN DM II with CKD/ Proteinuria Anemia in CKD BPH with LUTS MIAH/ Secondary HyperPTH Hypocalcemia/ HyperPO4 Vitamin D Deficiency Hypomagnesemia P/ Continue current POC and Medications. Next HD Monday Give Retacrit prn. Voiding trial in AM. Titrate Coreg as needed. Give MagOx X1. No NSAIDs. AM labs. Daily weight. Placement pending at the [facility].
[2020-02-28] MEDS ORDERED: MAGNESIUM OXIDE 400 MG TAB PO SCH (21:00)
[2020-02-28] MEDS: MAGNESIUM OXIDE 400 MG TAB PO SCH (21:51)
[2020-02-28] MEDS: PANTOPRAZOLE 40 MG INJ IVP SCH (21:51)
[2020-02-29] MEDS: CODEINE 30MG/APAP 300MG TAB PO PRN ×3 (05:07→23:57)
[2020-02-29] MEDS: carvediloL 12.5 MG TAB PO SCH ×2 (05:07→17:34)
[2020-02-29 06:06] LABS: Absolute Lymphocytes (CBC) 1.6 K/uL (0.7-4.9); Hematocrit 24.6 % (39.6-49.0); Lymphocytes % 17.9 % (15.3-44.8); MPV 8.2 fL (7.6-11.3); RBC Red Blood Cell Count 2.67 M/uL (4.33-5.43)
[2020-02-29 06:43] LABS: Potassium 4.3 mmol/L (3.5-5.1)
[2020-02-29] MEDS: INSULIN -REGULAR HUMAN 50 UNIT/0.5 ML ML SQ SCH ×4 (07:30→21:00)
[2020-02-29] MEDS: CALCIUM CARBONATE CHEW 500MG TAB PO SCH ×5 (07:30→17:34)
[2020-02-29] MEDS: TAMSULOSIN 0.4 MG SR CAP PO SCH ×2 (09:34→20:28)
[2020-02-29] MEDS: AMLODIPINE 10 MG TAB PO SCH (09:34)
[2020-02-29] MEDS: PANTOPRAZOLE 40 MG INJ IVP SCH ×2 (09:35→22:00)
[2020-02-29] MEDS: CALCITROL 0.25 MCG CAP PO SCH (09:35)
[2020-02-29] MEDS: VITAMIN D 5,000 UNIT CAP PO SCH (09:35)
[2020-02-29] MEDS: DOCUSATE NA 100 MG CAP PO SCH ×2 (09:35→20:28)
[2020-02-29] MEDS: Ringers Lactate 1,000 ML IV SCH ×2 (09:36→18:15)
[2020-02-29 10:41] LABS: Blood Morphology Comment NOT SEEN (NOT SEEN); Platelet Estimate DECR
--- NOTE | 2020-02-29 12:08 | P.PN ---
Subjective Date of Service: 02/29/20 Primary Care Provider: none Chief Complaint: GI hemorrhage, acute renal failure Subjective: No new changes, No C/O voiced, Tolerating diet Review of Systems Unremarkable Physical Examination - Vital Signs Temperature: 97.7 F Blood Pressure: 159/85 Pulse: 91 Respirations: 20 Pulse Ox (%): 96 - Physical Exam General: Alert, In no apparent distress, Oriented x3 HEENT: Atraumatic, Normocephalic Neck: Supple Respiratory: Clear to auscultation bilaterally, Normal air movement Cardiovascular: No edema, Normal pulses, Regular rate/rhythm, Normal S1 S2 Gastrointestinal: Normal bowel sounds, Soft and benign Musculoskeletal: No contractures, No erythema, No tenderness Integumentary: No significant lesion, No tenderness/swelling, No erythema Neurological: Normal gait, Normal speech, Normal strength at 5/5 x4 extr, Normal tone - Studies Medications List Reviewed: Yes Assessment & Plan Discharge Plan: Home Plan to discharge in: Greater than 2 days - Code Status/Comfort Care Code Status Assessed: Yes Physician Review Additional Text: Impression: Upper GI bleed with acute anemia secondary to gastric and duodenal ulcers now status post EGD Hyperkalemia Acute kidney failure likely with underlying chronic renal disease now end-stage renal disease requiring dialysis Hypertension Elevated lipase etiology unclear Plan: Upper GI bleed with acute anemia likely from peptic ulcer disease status post EGD: Hemoglobin has remained stable. EGD revealed esophagitis, multiple gastric ulcers and duodenal ulcer. Per GI decreased PPI therapy to Protonix 40 mg IV b.i.d.. Patient tolerating his diet well. Decreased requirement for nausea medications. Will provide patient with colace and MiraLax. Anticipate discharge in 24-48 hr or as soon as social secretary can arrange for patient to receive outpatient dialysis. Acute kidney failure likely with underlying chronic renal disease now end-stage renal disease requiring dialysis: Anticipate another dialysis treatment today. Patient with some blood leaking around his Tessio site today, discussed this with surgery, for now this continue with pressure as needed, replace Surg icel if needed. Still awaiting outpatient dialysis chair, anticipate this being completed in the next 48-72 hr. At this time patient to be discharged Hypertension: Blood pressure elevated. Will continue Norvasc and adjust as needed. Elevated lipase etiology unclear: Overall stable, Critical Care: No Time Spent Managing Pts Care (In Minutes): 55
--- NOTE | 2020-02-29 12:34 | PN ---
Date of Progress Note: 02/29/2020 Reason For Evaluation: Patient had a Tesio catheter that had placed last Monday and there was some bleeding noted today. He did not dialyze today, has not gotten any heparin. He denies accidentally pulling on the catheter. Pressure dressing was applied and I was asked to evaluate. Physical Examination: General: He is awake, alert, no distress. Vital Signs: Stable. Afebrile. Examination reveals a 2 x 2 dressing with minimal serosanguineous fluid on it, but no active bleeding noted. Assessment: Status post Tesio catheter placement with a recent history of bleeding. Recommendations: Continue pressure dressing and sandbag as needed. If it continues ooze, I left alice S urgicel and instructed the nurse to place that and apply another pressure dressing. No need for any acute surgical intervention at this time. /MODL Voice ID: [id number] Report ID: [id number]
[2020-02-29] MEDS: MAGNESIUM OXIDE 400 MG TAB PO SCH (20:28)
[2020-02-29] MEDS ORDERED: LIDOCAINE 1% 20 ML MDV ONE (23:41)
[2020-02-29] MEDS ORDERED: SILVER NITRATE 1 APPL TOP ONE (23:44)
--- NOTE | 2020-03-01 00:26 | PN ---
I was notified earlier tonight patient's insertion of the Tesio catheter was oozing, advised them to put pressure and Surgicel and pressure dressing and I was sent back that was done, however, it was no kriss couple hours later that he still continued to ooze, I was notified. I came in, evaluated the wou nd. The patient had pressure applied directly onto the site of the bleeding for about 15-20 minutes before I got here. Once we opened up the wound, we looked that it, cleaned up with peroxide. No ble eding was noted. However, the site was identified by the nurse as to where he was oozing from, then the patient was prepped and draped in the usual sterile fashion and then 3-0 nylon was used in a [id number] [id number] to reinforce the insertion site. There was no bruising noted. There was no bleeding not ed and then a pressure dressing consisting of Surgicel, Gelfoam was applied. Patient's head of bed w as elevated and sandbag was applied. His H and H was 7.8 and 23 earlier tonight and platelets were 1 28. His earlier H and H was 8.3 and 24.6. His INR is 1.02 on admission. Chemistry was reviewed. A fter pressure dressing was applied, there was no further evidence of oozing or bleeding noted. Head of bed was elevated. We will continue to monitor this patient. Advised the nursing staff that if he is on any blood thinners, it should be withheld for the next 24 hours until we get this bleeding und er control. /MODL Voice ID: [id number] Report ID: [id number]
[2020-03-01] MEDS: carvediloL 12.5 MG TAB PO SCH ×2 (05:49→17:38)
[2020-03-01] MEDS: INSULIN -REGULAR HUMAN 50 UNIT/0.5 ML ML SQ SCH ×4 (07:30→20:30)
[2020-03-01] MEDS: PANTOPRAZOLE 40 MG INJ IVP SCH ×2 (07:49→20:24)
[2020-03-01] MEDS: CODEINE 30MG/APAP 300MG TAB PO PRN ×2 (07:50→20:25)
[2020-03-01] MEDS: CALCIUM CARBONATE CHEW 500MG TAB PO SCH ×3 (07:51→17:39)
[2020-03-01] MEDS: VITAMIN D 5,000 UNIT CAP PO SCH (07:52)
[2020-03-01] MEDS: CALCITROL 0.25 MCG CAP PO SCH (07:53)
[2020-03-01] MEDS: TAMSULOSIN 0.4 MG SR CAP PO SCH ×2 (07:53→20:24)
[2020-03-01] MEDS: AMLODIPINE 10 MG TAB PO SCH (07:53)
[2020-03-01] MEDS: DOCUSATE NA 100 MG CAP PO SCH ×2 (07:54→20:24)
[2020-03-01 09:41] LABS: Absolute Lymphocytes (CBC) 1.1 K/uL (0.7-4.9); Basophils % 0.9 % (0-1.3); Hematocrit 23.6 % (39.6-49.0); Lymphocytes % 11.4 % (15.3-44.8); MPV 7.8 fL (7.6-11.3); RBC Red Blood Cell Count 2.58 M/uL (4.33-5.43)
[2020-03-01 10:03] LABS: Potassium 4.3 mmol/L (3.5-5.1)
--- NOTE | 2020-03-01 10:47 | P.PN ---
Subjective Date of Service: 03/01/20 Primary Care Provider: none Chief Complaint: GI hemorrhage, acute renal failure Review of Systems Unremarkable Physical Examination - Vital Signs Temperature: 99.4 F Blood Pressure: 158/87 Pulse: 100 Respirations: 20 Pulse Ox (%): 90 - Physical Exam General: Alert, In no apparent distress HEENT: Atraumatic, PERRLA, EOMI Neck: Supple, JVD not distended Respiratory: Clear to auscultation bilaterally, Normal air movement Cardiovascular: Regular rate/rhythm, Normal S1 S2 Gastrointestinal: Normal bowel sounds, No tenderness Musculoskeletal: No tenderness Integumentary: No rashes Neurological: Normal speech, Normal tone, Normal affect - Studies Medications List Reviewed: Yes Assessment & Plan Discharge Plan: Home Plan to discharge in: 24 Hours - Code Status/Comfort Care Code Status Assessed: Yes (Patient is full code) Physician Review Additional Text: Impression: Upper GI bleed with acute anemia secondary to gastric and duodenal ulcers now status post EGD Hyperkalemia Acute kidney failure likely with underlying chronic renal disease now end-stage renal disease requiring dialysis Hypertension Elevated lipase etiology unclear Plan: Upper GI bleed with acute anemia likely from peptic ulcer disease status post EGD: Hemoglobin has remained stable. EGD revealed esophagitis, multiple gastric ulcers and duodenal ulcer. Per GI decreased PPI therapy to Protonix 40 mg IV b.i.d.. Patient tolerating his diet well. Decreased requirement for nausea medications. Will provide patient with colace and MiraLax. Anticipate discharge in 24-48 hr or as soon as administrator social welfare can arrange for patient to receive outpatient dialysis. Acute kidney failure likely with underlying chronic renal disease now end-stage renal disease requiring dialysis: Patient is a without bleeding from his Tessio site overnight and today. Patient doing well, just awaiting dialysis replacement. Hypertension: Adjusting patient's blood pressure medication as needed. Will continue to monitor closely. Elevated lipase etiology unclear: Overall stable, Critical Care: No Time Spent Managing Pts Care (In Minutes): 55
[2020-03-01 11:05] LABS: Blood Morphology Comment NOT SEEN (NOT SEEN); Platelet Estimate DECR
--- NOTE | 2020-03-01 15:30 | PN ---
Date of Progress Note: 03/01/2020 Subjective: Patient is awake, alert. No complaint. Vitals stable, afebrile. He has not bled throu gh the Tesio insertion site since we put the dressing on yesterday. Assessment: Status post Tesio catheter with recent history of bleeding. Recommendations: Continue pressure dressing. Reconsult Surgery p.rester ROWLAND/DOUGIE Voice ID: [id number] Report ID: [id number]
[2020-03-01] MEDS: MAGNESIUM OXIDE 400 MG TAB PO SCH (20:24)
[2020-03-02] MEDS: carvediloL 12.5 MG TAB PO SCH ×2 (04:52→17:06)
[2020-03-02] MEDS: CODEINE 30MG/APAP 300MG TAB PO PRN ×2 (04:52→17:53)
[2020-03-02 05:45] LABS: Absolute Lymphocytes (CBC) 1.4 K/uL (0.7-4.9); Hematocrit 23.5 % (39.6-49.0); Lymphocytes % 16.4 % (15.3-44.8); MPV 8.3 fL (7.6-11.3); RBC Red Blood Cell Count 2.57 M/uL (4.33-5.43)
[2020-03-02 05:58] LABS: Magnesium 2.1 mg/dL (1.8-2.4); Potassium 4.6 mmol/L (3.5-5.1)
[2020-03-02] MEDS: INSULIN -REGULAR HUMAN 50 UNIT/0.5 ML ML SQ SCH ×4 (07:30→20:20)
[2020-03-02] MEDS: PANTOPRAZOLE 40 MG INJ IVP SCH ×2 (09:19→20:19)
[2020-03-02] MEDS: TAMSULOSIN 0.4 MG SR CAP PO SCH ×2 (09:19→20:19)
[2020-03-02] MEDS: CALCITROL 0.25 MCG CAP PO SCH (09:19)
[2020-03-02] MEDS: VITAMIN D 5,000 UNIT CAP PO SCH (09:19)
[2020-03-02] MEDS: CALCIUM CARBONATE CHEW 500MG TAB PO SCH ×3 (09:19→16:44)
[2020-03-02] MEDS: SODIUM CHLORIDE 0.9% 10ML INJ IV PRN (09:20)
[2020-03-02] MEDS: DOCUSATE NA 100 MG CAP PO SCH ×2 (09:20→20:19)
[2020-03-02] MEDS: AMLODIPINE 10 MG TAB PO SCH (09:40)
--- NOTE | 2020-03-02 11:54 | P.PN ---
Subjective Date of Service: 03/02/20 Primary Care Provider: none Chief Complaint: GI hemorrhage, acute renal failure Subjective: Improving Review of Systems Unremarkable Physical Examination - Vital Signs Temperature: 98.0 F Blood Pressure: 119/66 Pulse: 60 Respirations: 15 Pulse Ox (%): 91 - Physical Exam General: Alert, In no apparent distress HEENT: Atraumatic, PERRLA, EOMI Neck: Supple, JVD not distended Respiratory: Clear to auscultation bilaterally, Normal air movement Cardiovascular: Regular rate/rhythm, Normal S1 S2 Gastrointestinal: Normal bowel sounds, No tenderness Musculoskeletal: No tenderness Integumentary: No rashes Neurological: Normal speech, Normal tone, Normal affect Lymphatics: No axilla or inguinal lymphadenopathy - Studies Medications List Reviewed: Yes Assessment & Plan Discharge Plan: Home Plan to discharge in: 48 Hours - Code Status/Comfort Care Code Status Assessed: Yes Physician Review Additional Text: Impression: Upper GI bleed with acute anemia secondary to gastric and duodenal ulcers now status post EGD Hyperkalemia Acute kidney failure likely with underlying chronic renal disease now end-stage renal disease requiring dialysis Hypertension Elevated lipase etiology unclear Plan: Upper GI bleed with acute anemia likely from peptic ulcer disease status post EGD: Hemoglobin has remained stable. EGD revealed esophagitis, multiple gastric ulcers and duodenal ulcer. Per GI decreased PPI therapy to Protonix 40 mg IV b.i.d.. Patient tolerating his diet well. Decreased requirement for nausea medications. Will provide patient with colace and MiraLax. Anticipate discharge in 24-48 hr or as soon as manager social can arrange for patient to receive outpatient dialysis. Acute kidney failure likely with underlying chronic renal disease now end-stage renal disease requiring dialysis: Patient is a without bleeding from his Tessio site since previous episode. Patient doing well, just awaiting dialysis replacement. Hypertension: Adjusting patient's blood pressure medication as needed. Will continue to monitor closely. Elevated lipase etiology unclear: Overall stable, Critical Care: No Time Spent Managing Pts Care (In Minutes): 55
[2020-03-02] MEDS: MAGNESIUM OXIDE 400 MG TAB PO SCH (20:19)
[2020-03-03] MEDS: CODEINE 30MG/APAP 300MG TAB PO PRN (04:58)
[2020-03-03] MEDS: POLYETHYL GLY 3350 17 GM/DOSE PO PRN (04:58)
[2020-03-03] MEDS: carvediloL 12.5 MG TAB PO SCH ×2 (04:58→18:10)
[2020-03-03 06:02] LABS: Absolute Lymphocytes (CBC) 1.5 K/uL (0.7-4.9); Basophils % 0.9 % (0-1.3); Hematocrit 25.3 % (39.6-49.0); Lymphocytes % 19.5 % (15.3-44.8); MPV 8.2 fL (7.6-11.3); RBC Red Blood Cell Count 2.77 M/uL (4.33-5.43)
[2020-03-03 06:10] LABS: Magnesium 2.3 mg/dL (1.8-2.4)
[2020-03-03] MEDS: INSULIN -REGULAR HUMAN 50 UNIT/0.5 ML ML SQ SCH ×3 (07:30→16:30)
[2020-03-03] MEDS: CALCIUM CARBONATE CHEW 500MG TAB PO SCH ×3 (08:56→17:23)
[2020-03-03] MEDS: DOCUSATE NA 100 MG CAP PO SCH (08:56)
[2020-03-03] MEDS: TAMSULOSIN 0.4 MG SR CAP PO SCH (08:56)
[2020-03-03] MEDS: VITAMIN D 5,000 UNIT CAP PO SCH (08:56)
[2020-03-03] MEDS: CALCITROL 0.25 MCG CAP PO SCH (08:56)
[2020-03-03] MEDS: AMLODIPINE 10 MG TAB PO SCH (08:56)
[2020-03-03] MEDS: SODIUM CHLORIDE 0.9% 10ML INJ IV PRN (08:57)
[2020-03-03] MEDS: PANTOPRAZOLE 40 MG INJ IVP SCH (08:57)
[2020-03-03] MEDS ORDERED: AMLODIPINE 10 MG TAB PO SCH (10:38)
[2020-03-03 12:37] VITALS: TEMP 98.8
[2020-03-03] MEDS: EPOETIN ALFA 10,000 UNIT/ML VIAL IV SCH (14:01)
--- NOTE | 2020-03-03 14:54 | P.DS ---
Admission Date: 02/22/20 Discharge Date: 03/03/20 Primary Care Provider: none Disposition: ROUTINE DISCHARGE Discharge Condition: GOOD Reason for Admission: GI hemorrhage, acute renal failure Procedures: Medical problem list: Upper GI bleed with acute anemia secondary to gastric and duodenal ulcers now status post EGD Hyperkalemia Acute kidney failure likely with underlying chronic renal disease now end-stage renal disease requiring dialysis Hypertension Elevated lipase etiology unclear Brief History of Present Illness: 54-year-old male presented to the emergency room with nausea, vomiting and melena. Hospital Course: Patient presented with upper GI bleed with acute anemia. Patient found to have peptic ulcer disease status post EGD. The patient has remained stable. EGD revealed esophagitis, multiple gastric ulcers and duodenal ulcer. Patient now on PPI. At discharge he will continue with Protonix 40 mg 1 pill twice daily. Recommend follow up with GI to further monitor and address. Patient will likely require repeat EGD in 4-6 weeks to monitors progress. Recommend no further use of nonsteroidal anti-inflammatories. Recommend no further use of alcohol. Patient also found to have acute renal failure likely with underlying chronic renal disease. Renal function worsened. Patient now with end-stage renal disease on dialysis. Dialysis catheter placed. Arrangements for outpatient dialysis have been arranged. Patient will continue with dialysis every Monday, Monday and Monday. Patient will follow up with nephrology as directed. Recommend no further use of nonsteroidal anti-inflammatories medications would to be renally dose. Patient with hypertension. Medications have been adjusted. At discharge patient will continue with Norvasc 10 mg daily and carvedilol 25 mg 1 pill twice daily. Recommend monitoring blood pressure closely. Further adjustment can be done by nephrology. Patient with BPH. At discharge patient will continue with Flomax 0.4 mg daily. Vital Signs/Physical Exam: Temp Pulse Resp BP Pulse Ox 98.8 F 72 22 H 118/70 96 03/03/20 12:00 03/03/20 12:00 03/03/20 12:00 03/03/20 12:00 03/03/20 12:00 Laboratory Data at Discharge: WBC 7.8 K/uL (4.3-10.9) 03/03/20 05:00 Hgb 8.8 g/dL (13.6-17.9) L 03/03/20 05:00 Hct 25.3 % (39.6-49.0) L 03/03/20 05:00 Plt Count 143 K/uL (152-406) L 03/03/20 05:00 PT 12.0 SECONDS (9.5-12.5) 02/22/20 11:55 INR 1.02 02/22/20 11:55 Sodium 136 mmol/L (136-145) 03/03/20 05:00 Potassium 5.0 mmol/L (3.5-5.1) 03/03/20 05:00 BUN 48 mg/dL (7-18) H D 03/03/20 05:00 Creatinine 8.74 mg/dL (0.55-1.3) H* D 03/03/20 05:00 Glucose 100 mg/dL (74-106) 03/03/20 05:00 Phosphorus 8.9 mg/dL (2.5-4.9) H* 02/23/20 11:35 Magnesium 2.3 mg/dL (1.8-2.4) 03/03/20 05:00 Total Bilirubin 1.2 mg/dL (0.2-1.0) H 02/22/20 15:33 AST 15 U/L (15-37) 02/22/20 15:33 ALT 17 U/L (12-78) 02/22/20 15:33 Alkaline Phosphatase 71 U/L (45-117) 02/22/20 15:33 Troponin I 0.07 ng/mL (0.0-0.045) H 03/03/20 13:15 Lipase 121 U/L (73-393) 02/29/20 04:00 Home Medications: Amlodipine [Norvasc*] 10 mg PO DAILY #30 tab 03/03/20 Calcitrol [Rocaltrol*] 0.5 mcg PO DAILY #60 cap 03/03/20 Calcium Carbonate [Tums Regular*] 1,000 mg PO AC #90 tab 03/03/20 Carvedilol [Coreg] 25 mg PO BID #60 tablet 03/03/20 Cholecalciferol (Vitamin D3) [Vitamin D 5,000 IU Cap*] 10,000 unit PO DAILY #60 cap 03/03/20 Docusate [Colace Cap*] 100 mg PO BID #60 cap 03/03/20 Magnesium Oxide [Mag 0X*] 400 mg PO BEDTIME #30 tab 03/03/20 Pantoprazole [Protonix Tab] 40 mg PO BID #60 tab 03/03/20 Tamsulosin [Flomax*] 0.4 mg PO BID #60 cap 03/03/20 New Medications: Docusate [Colace Cap*] 100 mg PO BID #60 cap Carvedilol [Coreg] 25 mg PO BID #60 tablet Tamsulosin [Flomax*] 0.4 mg PO BID #60 cap Magnesium Oxide [Mag 0X*] 400 mg PO BEDTIME #30 tab Amlodipine [Norvasc*] 10 mg PO DAILY #30 tab Pantoprazole [Protonix Tab] 40 mg PO BID #60 tab Calcitrol [Rocaltrol*] 0.5 mcg PO DAILY #60 cap Calcium Carbonate [Tums Regular*] 1,000 mg PO AC #90 tab Cholecalciferol (Vitamin D3) [Vitamin D 5,000 IU Cap*] 10,000 unit PO DAILY #60 cap Patient Discharge Instructions: 1. Patient will need a follow up with PCP or nephrology in 1 week to follow up this hospitalization. 2. Patient now with end-stage renal disease on hemodialysis. Patient will continue with dialysis every Monday, Monday and Monday. Patient we provided information on when to go to dialysis tomorrow. At discharge patient will continue with vitamin D 34754 mg daily, Calcitrol 0.5 mcg daily, and Tums as directed. Recommend no further use of nonsteroidal anti-inflammatories. Future medications would to be renally dose. Lab will be monitored by nephrology. 3. Patient with hypertension. Medications have been adjusted. Patient will continue with Norvasc 10 mg daily, carvedilol 25 mg 1 pill twice daily. Recommend to monitor blood pressure daily. Further adjustment can be done by nephrology. 4. Patient had upper GI bleed. This has remained stable. At discharge patient will continue with Protonix 40 mg 1 pill twice daily. Recommend to follow up with GI in 4-6 weeks to monitor progress. 5. Patient with BPH. At discharge patient will continue with Flomax 0.4 mg daily. 6. Patient with low magnesium. Patient will continue with magnesium oxide 400 mg daily. Diet: AHA Activity: Ad reta Time spent managing pt's care (in minutes): 55
[2020-03-03] MEDS: ONDANSETRON 4 MG/2 ML VIAL IV PRN (18:08)
[2020-03-03 18:12] VITALS: BP 149/81
[2020-03-03 20:11] VITALS: O2SAT 92
--- NOTE | 2020-03-03 21:21 | P.PN ---
Date of Service: 03/02/20 Vital Signs Temp Pulse Resp BP Pulse Ox 98.8 F 93 H 22 H 149/81 H 96 03/03/20 12:00 03/03/20 18:10 03/03/20 12:00 03/03/20 18:10 03/03/20 12:00 Microbiology Results 02/22/20 10:59 Throat Culture & Sensitivity - Final NORMAL UPPER RESPIRATORY ESTELLE GROWN. 02/22/20 11:01 Nasopharnyx Coronavirus COVID-19 PCR - Final 02/22/20 12:50 Stool Occult Blood - Final 02/22/20 10:59 Nasopharnyx Influenza Type A Antigen Screen - Final 02/22/20 10:59 Nasopharnyx Influenza Type B Antigen Screen - Final 02/22/20 10:59 Throat Group A Streptococcus Rapid Screen - Final Assessment/ Plan: Nephrology CPS stable without CP or SOB. Feeling better. No BM. No acute events overnight. Vitals, medications, blood work and imaging reviewed in the chart. NAD. MMM. Neck supple. CTA. RRR. Soft Abd. No C/C/E. No rash. AAO. Normal Speech. A/ Suspected ESRD Hyperkalemia Acidosis HTN DM II with CKD/ Proteinuria Anemia in CKD BPH with LUTS MIAH/ Secondary HyperPTH Hypocalcemia/ HyperPO4 Vitamin D Deficiency Hypomagnesemia P/ Continue current POC and Medications. HD TIW. Give Retacrit prn. No NSAIDs. AM labs prn. Daily weight. Placement pending at the [facility].
--- NOTE | 2020-03-04 07:46 | EKG ---
Test Date: 2020-03-03 Test Time: 13:58:02 New Patient Escort: MICA MEASUREMENT RESULTS: Intervals: Rate: 78 [place]: 122 QRSD: 70 QT: 366 QTc: 417 [place]: P: 61 NJ: 122 QRS: -4 T: 10 INTERPRETIVE STATEMENTS: Normal sinus rhythm Nonspecific T wave abnormality Abnormal ECG Compared to ECG 02/24/2020 21:31:39 T-wave abnormality now present Short [place] interval no longer present Electronically Signed On 03-04-20 07:44:36 CDT by Thaddeus Llanes
== END 2020-03-03 20:16 | disposition home or self-care (01) | DRG 377 ==
LOC: ER 10:03 → ERHOLD 13:14 → 3RD-ICU 14:48 → 2ND 02-23 16:39
PROVIDERS: ADMIT Internal Medicine Sleep Medicine; ATTEND Family Medicine
PROC: 02HV33Z Insertion of Infusion Device into Superior Vena Cava, Percutaneous Approach (ICD-10-PCS; 2020-02-22)
PROC: 0DB68ZX Excision of Stomach, Via Natural or Artificial Opening Endoscopic, Diagnostic (ICD-10-PCS; 2020-02-23)
PROC: 5A1D70Z Performance of Urinary Filtration, Intermittent, Less than 6 Hours Per Day (ICD-10-PCS; 2020-02-25)
PROC: 05HM33Z Insertion of Infusion Device into Right Internal Jugular Vein, Percutaneous Approach (ICD-10-PCS; principal; 2020-02-25 09:00)
PROC: 5A1D70Z Performance of Urinary Filtration, Intermittent, Less than 6 Hours Per Day (ICD-10-PCS; 2020-02-26)
PROC: 5A1D70Z Performance of Urinary Filtration, Intermittent, Less than 6 Hours Per Day (ICD-10-PCS; 2020-02-27)
PROC: 5A1D70Z Performance of Urinary Filtration, Intermittent, Less than 6 Hours Per Day (ICD-10-PCS; 2020-03-01)
PROC: 5A1D70Z Performance of Urinary Filtration, Intermittent, Less than 6 Hours Per Day (ICD-10-PCS; 2020-03-03)
DX: K25.4 Chronic or unspecified gastric ulcer with hemorrhage (principal); N17.0 Acute kidney failure with tubular necrosis; N18.6 End stage renal disease; D62 Acute posthemorrhagic anemia; E87.2 Acidosis; N39.0 Urinary tract infection, site not specified; I12.0 Hypertensive chronic kidney disease with stage 5 chronic kidney disease or end stage renal disease; T82.898A Other specified complication of vascular prosthetic devices, implants and grafts, initial encounter; N25.81 Secondary hyperparathyroidism of renal origin; K22.10 Ulcer of esophagus without bleeding; K26.4 Chronic or unspecified duodenal ulcer with hemorrhage; K29.71 Gastritis, unspecified, with bleeding; K20.8 Other esophagitis; E87.5 Hyperkalemia; E86.0 Dehydration; E83.51 Hypocalcemia; D63.1 Anemia in chronic kidney disease; N40.1 Benign prostatic hyperplasia with lower urinary tract symptoms; E83.42 Hypomagnesemia; K44.9 Diaphragmatic hernia without obstruction or gangrene; E11.22 Type 2 diabetes mellitus with diabetic chronic kidney disease; Z20.828 Contact with and (suspected) exposure to other viral communicable diseases; Z99.2 Dependence on renal dialysis; Z59.0 Homelessness
CPT/HCPCS: 36415; 36430; 36569; 71045; 74176; 76000; 80048; 80053; 80076; 81003; 81015; 82272; 82306; 82330; 82550; 82553; 82570; 82652; 82947; 83036; 83605; 83690; 83735; 83880; 83970; 84100; 84156; 84443; 84484; 85014; 85018; 85025; 85610; 86021; 86038; 86160; 86225; 86317; 86704; 86850; 86900; 86901; 87070; 87081; 87086; 87088; 87340; 87804; 88305; 88312; 90935; 93005; 96374; 96375; 97110; 97112; 97116; 97161; 97530; 99285; C1752; C9113; J0360; J0610; J0690; J1644; J1815; J2250; J2270; J2405; J2550; J2704; J3010; J3475; J7030; J7040; J7050; J7120; P9016; Q5105; Q5106; U0002

== ENCOUNTER 2020-05-06 03:43 | Emergency (ER) | payer OTHER ==
[2020-05-06] MEDS ORDERED: MORPHINE 4 MG/ML SYR ONE (04:43)
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
[2020-05-06 06:19] VITALS: TEMP 98.6
[2020-05-06 06:20] VITALS: BP 144/74; O2SAT 99
--- NOTE | 2020-05-06 08:44 | RAD REPORT ---
EXAM DESCRIPTION: US - Scrotum Testicles - 05/06/2020 6:03 am CLINICAL HISTORY: PAIN Testicular pain and swelling COMPARISON: No comparisons FINDINGS: The right testicle 3.5 x 3.0 x 2.1 cm. No intratesticular masses or evidence of testicular torsion. The left testicle 3.8 x 2.6 x 1.8 cm. No intratesticular masses or evidence of testicular torsion. Both epididymides are normal in size and appearance. No pathologic fluid collections. IMPRESSION: Unremarkable study.
--- NOTE | 2020-05-06 14:39 | RAD REPORT ---
EXAM DESCRIPTION: X-ray single view chest. CLINICAL HISTORY: 55 years Male, TRAUMA COMPARISON: Prior chest x-ray report from 02/25/2020. The images were not available for review TECHNIQUE: Single portable x-ray view of the chest performed on 05/06/2020 at 4:37 AM FINDINGS: The lungs are slightly hypoinflated. There is mild prominence of the bronchovascular eunice ngs which may reflect mild interstitial edema. The lateral costophrenic sulci are grossly clear. Ther e is no evidence of a pneumothorax. The cardiac silhouette is normal in size and configuration. The mediastinal contours are normal. No acute osseous abnormality is identified. No definite rib fracture is appreciated on this examinati on. No focal soft tissue abnormalities are seen. Lines and tubes: A right IJ dual-lumen central venous catheter terminates in the region of the cavo atrial junction. IMPRESSION: 1. Mild hypoinflation of the lungs. 2. Prominence of the bronchovascular markings possibly reflecting interstitial edema. 3. Right IJ dual-lumen central venous catheter present as described above. 4. No definite acute osseous abnormalities are appreciated on this examination. Electronically signed by: Deyanira Orellana DO 05/06/2020 5:27 AM CDT Due to temporary technical issues with the PACS/Fluency reporting system, reports are being signed by the in house radiologist without review as a courtesy to ensure prompt reporting. The interpreting r adiologist is fully responsible for the content of the report.
--- NOTE | 2020-05-06 14:43 | RAD REPORT ---
EXAM DESCRIPTION: XR Left Ribs, 3 Views CLINICAL HISTORY: Trauma TECHNIQUE: Frontal and oblique views of the left ribs. COMPARISON: 05/06/2020 chest x-ray FINDINGS: Lungs: Visualized portions appear normal. No consolidation. Pleural space: No abnormality noted. No pneumothorax. Bones/joints: There is an age-indeterminate fracture of the left anterolateral 3rd rib. IMPRESSION: There is an age-indeterminate fracture of the left anterolateral 3rd rib. Electronically signed by: Chelsea Hauser MD 05/06/2020 5:26 AM CDT Due to temporary technical issues with the PACS/Fluency reporting system, reports are being signed by the in house radiologist without review as a courtesy to ensure prompt reporting. The interpreting r adiologist is fully responsible for the content of the report.
== END 2020-05-06 06:13 | disposition home or self-care (01) ==
LOC: ER 03:43
DX: S22.32XA Fracture of one rib, left side, initial encounter for closed fracture (principal); N50.812 Left testicular pain; V19.3XXA Pedal cyclist (driver) (passenger) injured in unspecified nontraffic accident, initial encounter; Z99.2 Dependence on renal dialysis
CPT/HCPCS: 71045; 76870; 96372; 99284

== ENCOUNTER 2020-05-23 13:45 | Emergency (ER) | payer OTHER ==
[2020-05-23 15:18] LABS: Absolute Lymphocytes (CBC) 2.4 K/uL (0.7-4.9); Basophils % 1.3 % (0-1.3); Hematocrit 23.9 % (39.6-49.0); Lymphocytes % 19.9 % (15.3-44.8); MPV 7.3 fL (7.6-11.3); RBC Red Blood Cell Count 2.44 M/uL (4.33-5.43)
--- NOTE | 2020-05-23 15:33 | RAD REPORT ---
EXAM DESCRIPTION: Aide Single View05/23/2020 3:21 pm CLINICAL HISTORY: Shortness of breath COMPARISON: April 2020 FINDINGS: The lungs appear clear of acute infiltrate. The heart is normal size. Central venous cath eter remains in place IMPRESSION: No acute abnormalities displayed
[2020-05-23 15:50] LABS: Blood Morphology Comment NOT SEEN (NOT SEEN); Platelet Estimate DECR
[2020-05-23 16:10] LABS: Albumin 3.4 g/dL (3.4-5.0); Bilirubin Direct 0.1 mg/dL (0-0.2); Bilirubin Total 0.5 mg/dL (0.2-1.0); Protein, Total 8.6 g/dL (6.4-8.2)
[2020-05-23 16:11] LABS: Troponin (Emerg Dept Use Only) 0.56 ng/mL (0.0-0.045)
[2020-05-23] MEDS ORDERED: ALBUTEROL 2.5 MG/3 ML NEB SOL ONE (17:11)
[2020-05-23] MEDS ORDERED: IPRATROPIUM BROM 0.5MG/2.5ML ONE (17:11)
[2020-05-23] MEDS ORDERED: INSULIN -REGULAR HUMAN 50 UNIT/0.5 ML ML ONE (17:12)
[2020-05-23] MEDS ORDERED: D50W 25 GM/50 ML SYRINGE/VIAL IV ONE (17:12)
[2020-05-23] MEDS ORDERED: SODIUM BICARB 50 MEQ/50ML VIAL ONE (17:12)
[2020-05-23] MEDS ORDERED: CALCIUM GLUCONATE 1 GM IVPB 1 GM/50 ML BAG IV ONE (17:12)
--- NOTE | 2020-05-23 17:47 | RAD REPORT ---
EXAM DESCRIPTION: CT - Abdomen Pelvis Wo Contrast - 05/23/2020 5:38 pm CLINICAL HISTORY: Abdominal pain. ABD PAIN COMPARISON: Abdomen Pelvis Wo Contrast dated 02/22/2020 TECHNIQUE: CT imaging of the abdomen and pelvis was performed without contrast. Solid organ, bowel a nd vascular assessment is limited due to lack of IV and oral contrast. All CT scans are performed using dose optimization technique as appropriate and may include automated exposure control or mA/KV adjustment according to patient size. FINDINGS: Subtle interstitial opacities are present in both lung bases.Small hiatal hernia is presen t with several lymph nodes in region of the gastroesophageal junction, largest measuring 8 mm. This a ppears unchanged. The liver, spleen, pancreas, adrenal glands and kidneys are within normal limits for a limited non-co ntrast examination. No bowel obstruction, free air, free fluid or abscess. Moderate stool throughout the colon. The appen jadon is normal. Several focal soft tissues densities are seen in the subcutaneous fat as well as the right gluteal re gion. Right gluteal finding measures 7 cm. These appear since prior study The osseous structures are within normal limits. IMPRESSION: Interstitial opacities in both lung bases nonspecific you have been described in COVID-1 9 infection. Small hiatal hernia with distal esophageal wall thickening ans small paraesophageal lymph nodes. Thes e appear similar to the comparative study. Follow-up upper endoscopy may be considered. Moderate fecal retention throughout the colon. Multiple subcutaneous soft tissue densities are present, new since prior study, largest measuring abo ut 7 cm in the right gluteal region. These have the appearance subcutaneous hematomas. A limited non-contrast examination was performed as detailed.
[2020-05-23] MEDS ORDERED: SOD POLYSTYREN SUL 15 GM/60 ML UCUP ONE (18:25)
[2020-05-23] MEDS ORDERED: MORPHINE 4 MG/ML SYR ONE ×2 (18:31→23:14)
[2020-05-23 19:02] LABS: Potassium 5.7 mmol/L (3.5-5.1)
--- NOTE | 2020-05-23 19:34 | EDPHYS ---
Physician Documentation [facility] Name: Cr Orellana Age: 55 yrs Sex: Male : 1965 Arrival Date: 05/23/2020 Time: 13:46 Bed 6 Private MD: ED Physician Sebastian Rivera HPI: 05/23 19:33 This 55 yrs old Male presents to ER via Wheelchair with complaints of kdr Shortness Of Breath, Trouble Walking, missed dialysis x1 wk. 19:33 The patient has shortness of breath at rest. Onset: The symptoms/episode began/occurred kdr gradually, 1 week(s) ago. Duration: The symptoms are continuous, and are steadily getting worse. The patient's shortness of breath is aggravated by exertion, light activity. Associated signs and symptoms: Pertinent positives: abdominal pain. Severity of symptoms: At their worst the symptoms were moderate in the emergency department the symptoms are unchanged. It is unknown whether or not the patient has had similar symptoms in the past. It is unknown whether or not the patient has recently seen a physician. Historical: - Allergies: 14:29 No Known Allergies; ca1 - PMHx: 14:29 DIALYSIS MWF; seasonal allergies; Hypertension; ca1 - Immunization history:: Adult Immunizations not up to date. - Social history:: Smoking status: Patient denies any tobacco usage or history of. ROS: 19:33 Constitutional: Negative for fever, chills, and weight loss, Eyes: Negative for injury, kdr pain, redness, and discharge, Neck: Negative for injury, pain, and swelling, Cardiovascular: Negative for chest pain, palpitations, and edema, Back: Negative for injury and pain, : Negative for injury, bleeding, discharge, and swelling, MS/Extremity: Negative for injury and deformity, Skin: Negative for injury, rash, and discoloration, Neuro: Negative for headache, weakness, numbness, tingling, and seizure activity. Psych: Negative for depression, anxiety, suicide ideation, homicidal ideation, and hallucinations, Allergy/Immunology: Negative for hives, rash, and allergies, Endocrine: Negative for neck swelling, polydipsia, polyuria, polyphagia, and marked weight changes, Hematologic/Lymphatic: Negative for swollen nodes, abnormal bleeding, and unusual bruising. 19:33 Respiratory: Positive for dyspnea on exertion, shortness of breath. 19:33 Abdomen/GI: Positive for abdominal pain, nausea, of the suprapubic area. Exam: 15:21 ECG was reviewed by the Attending Physician. kdr 19:33 Constitutional: This is a well developed, well nourished patient who is awake, alert, kdr and in no acute distress. Head/Face: Normocephalic, atraumatic. Eyes: Pupils equal round and reactive to light, extra-ocular motions intact. Lids and lashes normal. Conjunctiva and sclera are non-icteric and not injected. Cornea within normal limits. Periorbital areas with no swelling, redness, or edema. Neck: Trachea midline, no thyromegaly or masses palpated, and no cervical lymphadenopathy. Supple, full range of motion without nuchal rigidity, or vertebral point tenderness. No Meningismus. Chest/axilla: Normal chest wall appearance and motion. Nontender with no deformity. No lesions are appreciated. Cardiovascular: Regular rate and rhythm with a normal S1 and S2. No gallops, murmurs, or rubs. Normal PMI, no JVD. No pulse deficits. Respiratory: Lungs have equal breath sounds bilaterally, clear to auscultation and percussion. No rales, rhonchi or wheezes noted. No increased work of breathing, no retractions or nasal flaring. Back: No spinal tenderness. No costovertebral tenderness. Full range of motion. MS/ Extremity: Pulses equal, no cyanosis. Neurovascular intact. Full, normal range of motion. Neuro: Awake and alert, GCS 15, oriented to person, place, time, and situation. Cranial nerves II-XII grossly intact. Motor strength 5/5 in all extremities. Sensory grossly intact. Cerebellar exam normal. Normal gait. Psych: Awake, alert, with orientation to person, place and time. Behavior, mood, and affect are within normal limits. 19:33 Abdomen/GI: Inspection: bruising, suprapubic area and right lower quadrant, Bowel sounds: active, diminished, in all quadrants, Palpation: soft, moderate abdominal tenderness, in the suprapubic area, mass, is not appreciated, rebound tenderness, is not appreciated, voluntary guarding, is elicited in the suprapubic area, right lower quadrant and left lower quadrant. Vital Signs: 14:25 BP 173 / 90; Pulse 93; Resp 19 S; Temp 98.1(TE); Pulse Ox 100% on R/A; Weight 63.5 kg ca1 (R); Height 5 ft. 6 in. (167.64 cm) (R); 15:06 BP 167 / 94; Pulse 88; Resp 24; Pulse Ox 100% ; jl7 15:45 BP 160 / 87; Pulse 83; Resp 17; Pulse Ox 100% ; jl7 16:30 BP 160 / 93; Pulse 79; Resp 20; Pulse Ox 100% ; jl7 17:48 BP 160 / 89; Pulse 100; Resp 23; Pulse Ox 100% ; rb1 18:58 BP 158 / 89; Pulse 102; Resp 19; Pulse Ox 100% ; jl7 20:53 BP 153 / 90; Pulse 97; Resp 24; Pulse Ox 100% on R/A; rv 22:47 BP 158 / 86; Pulse 92; Resp 17; Pulse Ox 99% on R/A; rv 14:25 Body Mass Index 22.60 (63.50 kg, 167.64 cm) ca1 MDM: 19:33 Patient medically screened. kdr 19:33 Data reviewed: vital signs, nurses notes, lab test result(s), EKG, radiologic studies. kdr Counseling: I had a detailed discussion with the patient and/or guardian regarding: the historical points, exam findings, and any diagnostic results supporting the discharge/admit diagnosis, lab results, radiology results, the need to transfer to another facility. 19:33 ED course: The patient improved with the interventions given. kdr 05/23 15:03 Order name: Basic Metabolic Panel; Complete Time: 16:42 kdr 05/23 15:03 Order name: CBC with Diff; Complete Time: 15:54 kdr 05/23 15:03 Order name: LFT's; Complete Time: 16:42 kdr 05/23 15:03 Order name: Magnesium; Complete Time: 16:42 kdr 05/23 15:03 Order name: NT PRO-BNP; Complete Time: 16:42 kdr 05/23 15:03 Order name: PT-INR; Complete Time: 15:54 kdr 05/23 14:54 Order name: Chest Single View; Complete Time: 15:54 EDMS 05/23 15:03 Order name: Troponin (emerg Dept Use Only); Complete Time: 16:42 kdr 05/23 15:20 Order name: Manual Differential; Complete Time: 15:54 EDMS 05/23 17:07 Order name: CT Abd/Pelvis - Without Contrast; Complete Time: 19:28 kdr 05/23 17:22 Order name: Chem 7; Complete Time: 19:28 kdr 05/23 22:42 Order name: Glucose, Ancillary Testing EDMS 05/23 14:31 Order name: EKG; Complete Time: 14:32 snw 05/23 14:31 Order name: EKG - Nurse/Tech; Complete Time: 15:06 snw 05/23 15:03 Order name: Cardiac monitoring; Complete Time: 15:06 kdr 05/23 15:03 Order name: IV Saline Lock; Complete Time: 15:06 kdr 05/23 15:03 Order name: Labs collected and sent; Complete Time: 15: kdr 05/23 15:03 Order name: O2 Per Protocol; Complete Time: 15:06 kdr 05/23 15:03 Order name: O2 Sat Monitoring; Complete Time: 15:06 kdr EC:21 Rate is 90 beats/min. Rhythm is regular, Normal Sinus Rhythm with No ectopy. QRS Spring kdr is Normal. NV interval is normal. QRS interval is normal. No Q waves. T waves are Peaked. Clinical impression: Normal ECG and Suggests hyperkalemia. Administered Medications: 17:15 Drug: Calcium Gluconate 1 grams Route: IVPB; Infused Over: 60 mins; Site: left forearm; jl7 17:20 Drug: D50W 50 ml Route: IVP; Site: left forearm; jl7 18:24 Follow up: Response: No adverse reaction jl7 17:23 Drug: Insulin Regular Human 10 units {Co-Signature: rb1 (Barbara Hernandez RN).} Route: jl7 IVP; Site: left forearm; 18:25 Follow up: Response: No adverse reaction jl7 17:25 Drug: Sodium Bicarbonate 1 amp Route: IVP; Site: left forearm; jl7 18:24 Follow up: Response: No adverse reaction jl7 17:30 Drug: Albuterol - atroVENT (3:1) (2.5 mg - 0.5 mg) 3 ml Route: Nebulizer; jl7 18:24 Follow up: Response: No adverse reaction jl7 18:18 Drug: Kayexalate 30 grams Route: PO; rb1 19:01 Follow up: Response: No adverse reaction jl7 18:24 Drug: morphine 4 mg Route: IVP; Site: left forearm; 7 18:45 Follow up: Response: No adverse reaction; Pain is decreased jl7 Disposition: 19:33 Critical Care:. kdr Disposition: 05/23/20 19:33 Transfer ordered to [facility]. Diagnosis is ESRD, Hyperkalemia, Metabolic Accidosis, Anemia, Shortness of Breath, Hypermagnesimia. - Reason for transfer: Higher level of care. - Accepting physician is Barrentes, ICU. - Condition is Serious. - Problem is new. - Symptoms have improved. Critical care time excluding procedures: 19:33 Critical care time: Bedside Care: 30 minutes, Consultation: 15 minutes. Total time: 45 kdr minutes Signatures: Dispatcher [employer] EDMS Sebastian Rivera MD MD kdr Bailee Munson, LAMINATION MACHINE OPERATOR-C LAMINATION MACHINE OPERATOR-Csnw Priscilla Díaz RN RN lp1 David, JUAN DANIEL Jimenez RN rb1 Maye Giraldo RN RN jl7 Priscilla Byrnes RN RN ca1 Barbara Hernandez RN rb1 Corrections: (The following items were deleted from the chart) 14:54 14:32 Chest Pa And Lat (2 Views)+RAD.RAD.BRZ ordered. EDMS EDMS 15:20 15:04 Chest Single View+RAD.RAD.BRZ ordered. EDAK EDMS 17:30 15:21 Rate is 90 beats/min. Rhythm is regular, Normal Sinus Rhythm with No ectopy. QRS kdr Spring is Normal. NV interval is normal. QRS interval is normal. No Q waves. Clinical impression: Normal ECG. kdr 23:10 19:33 05/23/2020 19:33 Transfer ordered to [facility]. lp1 Diagnosis is ESRD, Hyperkalemia, Metabolic Accidosis, Anemia, Shortness of Breath, Hypermagnesimia. Reason for transfer: Higher level of care. Accepting physician is Barrentes, ICU. Condition is Serious. Problem is new. Symptoms have improved. kdr
--- NOTE | 2020-05-23 19:34 | ER ---
Nurse's Notes [facility] Name: Cr Orellana Age: 55 yrs Sex: Male : 1965 Arrival Date: 05/23/2020 Time: 13:46 Bed 6 Private MD: Diagnosis: ESRD, Hyperkalemia, Metabolic Accidosis, Anemia, Shortness of Breath, Hypermagnesimia Presentation: 05/23 14:25 Chief complaint: Patient states: I was on the bus today and I thought I was going to ca1 pass out. I can hardly breathe. Reports SOB, sore throat, swelling, and difficulty swallowing. Denies cough. Pt is on Dialysis, schedule MWF. Last dialysis session 1-2 weeks ago. Pt A\T\Ox4. Coronavirus screen: Client denies travel out of the [place] in the last 14 days. shortness of breath, sore throat, Client presents with at least one sign or symptom that may indicate coronavirus-19. Standard/surgical mask placed on the client. Provider contacted for isolation considerations. The client reports previous COVID testing was negative. April 2020. Ebola Screen: Patient negative for fever greater than or equal to 101.5 degrees Fahrenheit, and additional compatible Ebola Virus Disease symptoms Patient denies exposure to infectious person. Patient denies travel to an Ebola-affected area in the 21 days before illness onset. No symptoms or risks identified at this time. Initial Sepsis Screen: Does the patient meet any 2 criteria? No. Patient's initial sepsis screen is negative. Does the patient have a suspected source of infection? No. Patient's initial sepsis screen is negative. Risk Assessment: Do you want to hurt yourself or someone else? Patient reports no desire to harm self or others. Onset of symptoms was May 23, 2020. 14:25 Method Of Arrival: Wheelchair ca1 14:25 Acuity: HUYEN 2 ca1 Triage Assessment: 19:00 General: Appears ill. Respiratory: Reports shortness of breath on exertion Onset: The rv symptoms/episode began/occurred at an unknown time. the patient has mild shortness of breath. Historical: - Allergies: 14:29 No Known Allergies; ca1 - PMHx: 14:29 DIALYSIS MWF; seasonal allergies; Hypertension; ca1 - Immunization history:: Adult Immunizations not up to date. - Social history:: Smoking status: Patient denies any tobacco usage or history of. Screenin:03 Abuse screen: Denies threats or abuse. Denies injuries from another. Nutritional jl7 screening: No deficits noted. Tuberculosis screening: No symptoms or risk factors identified. Fall Risk Secondary diagnosis (15 points) impaired mobility, IV access (20 points). Ambulatory Aid- Crutches/Cane/Walker (15 pts). Gait- Weak (10 pts.). Total Currie Fall Scale indicates High Risk Score (45 or more points). Fall prevention measures have been instituted. Side Rails Up X 2 Placed Close to Nursing Station Frequent Obs/Assessments Occuring As available patient and family educated on Fall Prevention Program and Strategies. Assessment: 15:03 General: Appears in no apparent distress. uncomfortable, Behavior is cooperative, jl7 anxious. Pain: Complains of pain in right lower quadrant, left lower quadrant and groin. Neuro: Level of Consciousness is awake, alert, obeys commands, Oriented to person, place, time, situation. Cardiovascular: Patient's skin is warm and dry. Rhythm is regular. Respiratory: Airway is patent Respiratory effort is even, unlabored, Respiratory pattern is regular, symmetrical. Derm: Bruising that is dark purple, on right lower quadrant and left lower quadrant. 16:00 Reassessment: Patient appears in no apparent distress at this time. No changes from jl7 previously documented assessment. Patient and/or family updated on plan of care and expected duration. Pain level reassessed. Patient is alert, oriented x 3, equal unlabored respirations, skin warm/dry/pink. 17:00 Reassessment: Patient appears in no apparent distress at this time. No changes from jl7 previously documented assessment. Patient and/or family updated on plan of care and expected duration. Pain level reassessed. Patient is alert, oriented x 3, equal unlabored respirations, skin warm/dry/pink. 18:00 Reassessment: Patient appears in no apparent distress at this time. No changes from jl7 previously documented assessment. Patient and/or family updated on plan of care and expected duration. Pain level reassessed. Patient is alert, oriented x 3, equal unlabored respirations, skin warm/dry/pink. 20:49 Reassessment: UPDATED ON THE TEST RESULTS AND PLAN OF CARE. PATIENT IS FOR TRANSFER. rv PATIENT IS AWARE OF WAITING TIME. Pain: Denies pain. Neuro: Level of Consciousness is awake, alert, obeys commands, Oriented to person, place, time, situation. Cardiovascular: Patient's skin is warm and dry. Rhythm is regular. Respiratory: Airway is patent Respiratory effort is even, unlabored, Breath sounds are clear bilaterally. 22:46 Reassessment: given report Mee of [facility]. Neuro: Level of Consciousness is awake, rv alert, obeys commands, Oriented to person, place, time, situation. Vital Signs: 14:25 BP 173 / 90; Pulse 93; Resp 19 S; Temp 98.1(TE); Pulse Ox 100% on R/A; Weight 63.5 kg ca1 (R); Height 5 ft. 6 in. (167.64 cm) (R); 15:06 BP 167 / 94; Pulse 88; Resp 24; Pulse Ox 100% ; jl7 15:45 BP 160 / 87; Pulse 83; Resp 17; Pulse Ox 100% ; jl7 16:30 BP 160 / 93; Pulse 79; Resp 20; Pulse Ox 100% ; jl7 17:48 BP 160 / 89; Pulse 100; Resp 23; Pulse Ox 100% ; rb1 18:58 BP 158 / 89; Pulse 102; Resp 19; Pulse Ox 100% ; jl7 20:53 BP 153 / 90; Pulse 97; Resp 24; Pulse Ox 100% on R/A; rv 22:47 BP 158 / 86; Pulse 92; Resp 17; Pulse Ox 99% on R/A; rv 14:25 Body Mass Index 22.60 (63.50 kg, 167.64 cm) ca1 ED Course: 13:46 Patient arrived in ED. as 14:29 Triage completed. ca1 14:29 Arm band placed on right wrist. ca1 14:43 Sebastian Rivera MD is Attending Physician. kdr 14:44 Maye Giraldo RN is Primary Nurse. jl7 15:03 Patient has correct armband on for positive identification. Placed in gown. Bed in low jl7 position. Call light in reach. Side rails up X2. playground monitor on. Pulse ox on. NIBP on. Warm blanket given. 15:03 Initial lab(s) drawn, by me, sent to lab. EKG done, by ED staff, reviewed by Sebastian Rivera MD. Inserted saline lock: 20 gauge in right forearm, using aseptic technique. Blood collected. 15:21 Chest Single View In Process Unspecified. EDMS 16:43 initiated a transfer with Carolina from the [facility]. eb 17:10 Inserted saline lock: 22 gauge in right hand, using aseptic technique. jl7 17:15 Inserted saline lock: 20 gauge in left forearm, using aseptic technique. jl7 17:[address] Jorge the hospitalist structural steel erection supervisor for [facility] with Dr. Miguel metzger for patient transfer consultation. 17:39 CT Abd/Pelvis - Without Contrast In Process Unspecified. EDMS 17:51 per Carolina the doctor has accepted the patient in transfer/ depending on the repeat eb potassium will determine what floor they will place the patient. face sheet faxed over. 19:00 No provider procedures requiring assistance completed. jl7 20:[address] [facility] center pt. is accepted to [facility] but we have to wait for ct5 bed to be cleaned. 21:58 Acceptance given by Ingrid Calloway. Pt. going to [facility] [address] 2 bed 17. ar5 Accepting physician is Rocio Madera. Call report to [phone]. Administered Medications: 17:15 Drug: Calcium Gluconate 1 grams Route: IVPB; Infused Over: 60 mins; Site: left forearm; jl7 17:20 Drug: D50W 50 ml Route: IVP; Site: left forearm; jl7 18:24 Follow up: Response: No adverse reaction jl7 17:23 Drug: Insulin Regular Human 10 units {Co-Signature: rb1 (Barbara Hernandez RN).} Route: jl7 IVP; Site: left forearm; 18:25 Follow up: Response: No adverse reaction jl7 17:25 Drug: Sodium Bicarbonate 1 amp Route: IVP; Site: left forearm; jl7 18:24 Follow up: Response: No adverse reaction jl7 17:30 Drug: Albuterol - atroVENT (3:1) (2.5 mg - 0.5 mg) 3 ml Route: Nebulizer; jl7 18:24 Follow up: Response: No adverse reaction jl7 18:18 Drug: Kayexalate 30 grams Route: PO; rb1 19:01 Follow up: Response: No adverse reaction jl7 18:24 Drug: morphine 4 mg Route: IVP; Site: left forearm; jl7 18:45 Follow up: Response: No adverse reaction; Pain is decreased jl7 Outcome: 19:33 ER care complete, transfer ordered by . kdr 23:10 Patient left the ED. lp1 Signatures: Dispatcher [employer] EDMS Sebastian Rivera MD MD kdr Martinez, Amelia as Pena, Laura, RN RN lp1 Barbara Hernandez RN RN rb1 Maye Giraldo RN RN jl7 Rekha Tong Ronaldo RN RN rv Olivia Huerta arPriscilla Herrmann RN RN ca1 Barbara Hernandez RN rb1
[2020-05-23 23:19] VITALS: TEMP 98.1
[2020-05-23 23:28] VITALS: BP 158/86; O2SAT 99
--- OUTSIDE RECORDS SUMMARY | 2020-05-27 23:15 | XMS REPORT | Clinical Summary ---
:1965 Author Organization [facility] Address [address] [place] [address] Care Team Providers Name Role Phone Unavailable Primary Care Provider Unavailable Allergies Active Allergy Reactions Severity Noted Date Comments Gabapentin 05/24/2020 Medications No known medications Active Problems Problem Noted Date Hyperkalemia 05/24/2020 PINA (acute kidney injury) Encounters Date Type Specialty Care Team Description 05/27/2020 Anesthesia Event Gastroenterology Cuco Lane MD 05/27/2020 Surgery Gastroenterology Myrna Monsalve MD ENDOSCOPY,BIOPS Y 05/25/2020 Travel 05/24/2020 Hospital Oncology Santy Cardona, [place] a; Encounter Michael Ames, ESRD (end st age renal disease) on dialysis ([facility]); Severe sepsis ([facility]); Jeff Nicholas acido sis; Christopher Hematoma of thi gh, right, initial encounter; MD Donna PINA (acute kidney injury) ([facility]); Vee Hernandez Thrombocytop enia ([facility]); MD Corrine Anemia, unspecified type; Cassie, Yashash Gastroesopha geal reflux disease, unspecified whether esophagitis present; D Epigastric pain ; Acute blood los s anemia 05/23/2020 Telephone Critical Care Santy Cardona, [place] [facility] Michael Ames MD 02/22/2020 Lab Requisition Lab after 05/27/2019 Immunizations Name Dates Previously Given Next Due Influenza Four-QIV PF 3YR+ 05/25/2020 Social History Tobacco Use Types Packs/Day Years Used Date Former Smoker Sex Assigned at Date Recorded Not on file Job Start Date Occupation Industry Not on file Not on file Not on file Travel History Travel Start Travel End No recent travel history available. Last Filed Vital Signs Vital Sign Reading Time Taken Blood Pressure 164/86 05/27/2020 9:05 PM CDT Pulse 84 05/27/2020 9:05 PM CDT Temperature 36.8 C (98.3 F) 05/27/2020 9:05 PM CDT Respiratory Rate 18 05/27/2020 9:05 PM CDT Oxygen Saturation 97% 05/27/2020 9:05 PM CDT Inhaled Oxygen Concentration - - Weight 67.7 kg (149 lb 4 oz) 05/27/2020 6:45 P M CDT Height 167.6 cm (5' 5.98") 05/24/2020 12:30 AM CDT Body Mass Index 24.1 05/27/2020 6:45 PM CDT Plan of Treatment Health Maintenance Due Date Last Done Comments COLON CANCER SCREENING COLONOSCOPY 1965 LIPID PANEL 1998 Medicare IPPE (WELCOME TO MEDICARE) 05/21/2020 INFLUENZA VACCINE Completed 05/25/2020 Procedures The patient is currently admitted. The information in this section might not be complete until the patient is discharged. Procedure Name Priority Date/Time Associated Comments Diagnosis REPORT OF PROCEDURE - 05/27/2020 8:30 ENDOSCOPY URL AM CDT UPPER 05/27/2020 8:00 Anemia, unspecified ENDOSCOPY,BIOPSY AM CDT type (MANUAL DIFFERENTIAL) Routine 05/27/2020 3:40 Re sults for this AM CDT procedure are i n the results section. CBC W/PLT COUNT & STAT 05/27/2020 3:40 Result s for this AUTO DIFFERENTIAL AM CDT procedure are in the results section. HEPATIC FUNCTION STAT 05/27/2020 3:40 Results for this PANEL AM CDT procedure are i n the results section. PT/APTT STAT 05/27/2020 3:40 Results for this AM CDT procedure are i n the results section. MAGNESIUM STAT 05/27/2020 3:40 Results for this AM CDT procedure are i n the results section. BASIC METABOLIC PANEL STAT 05/27/2020 3:40 Re sults for this (7) AM CDT procedure are i n the results section. CBC W/PLT COUNT & STAT 05/27/2020 3:40 Result s for this AUTO DIFFERENTIAL AM CDT procedure are in the results section. TRANSFUSION SERVICE 05/26/2020 6:21 REPORT - SCAN PM CDT D-DIMER Routine 05/26/2020 12:26 Results for this PM CDT procedure are i n the results section. HEPATITIS C PCR, Routine 05/26/2020 12:26 Results for this QUANTITATIVE PM CDT procedure are i n the results section. (CELLAVISION MANUAL STAT 05/26/2020 3:50 Resu lts for this DIFF) AM CDT procedure are i n the results section. CBC W/PLT COUNT & STAT 05/26/2020 3:50 Result s for this AUTO DIFFERENTIAL AM CDT procedure are in the results section. COMPREHENSIVE Routine 05/26/2020 3:50 Results fo r this METABOLIC PANEL AM CDT procedure ar e in the results section. CALCIUM, IONIZED STAT 05/26/2020 3:50 Results for this AM CDT procedure are i n the results section. HEPATIC FUNCTION STAT 05/26/2020 3:50 Results for this PANEL AM CDT procedure are i n the results section. PT/APTT STAT 05/26/2020 3:50 Results for this AM CDT procedure are i n the results section. PHOSPHORUS STAT 05/26/2020 3:50 Results for this AM CDT procedure are i n the results section. MAGNESIUM STAT 05/26/2020 3:50 Results for this AM CDT procedure are i n the results section. BASIC METABOLIC PANEL STAT 05/26/2020 3:50 Re sults for this (7) AM CDT procedure are i n the results section. CBC W/PLT COUNT & STAT 05/26/2020 3:50 Result s for this AUTO DIFFERENTIAL AM CDT procedure are in the results section. PREPARE LEUKO-REDUCED STAT 05/25/2020 11:54 Re sults for this RBC PM CDT procedure are i n the results section. HEMOGLOBIN AND Routine 05/25/2020 7:14 Results f or this HEMATOCRIT PM CDT procedure are i n the results section. TSH/FREE T4 IF Routine 05/25/2020 7:14 Results f or this INDICATED PM CDT procedure are i n the results section. TRANSFUSION SERVICE 05/25/2020 6:01 REPORT - SCAN PM CDT CBC W/PLT COUNT & Routine 05/25/2020 11:42 Result s for this AUTO DIFFERENTIAL AM CDT procedure are in the results section. CBC W/PLT COUNT & STAT Add-on 05/25/2020 11:42 Result s for this AUTO DIFFERENTIAL AM CDT procedure are in the results section. D-DIMER Routine 05/25/2020 11:42 Results for this AM CDT procedure are i n the results section. PROTHROMBIN TIME/INR Routine 05/25/2020 11:42 Res ults for this AM CDT procedure are i n the results section. LACTATE DEHYDROGENASE Routine 05/25/2020 11:42 Re sults for this (LDH) AM CDT procedure are i n the results section. HEMOGLOBIN AND Routine 05/25/2020 11:42 Results f or this HEMATOCRIT AM CDT procedure are i n the results section. (CELLAVISION MANUAL STAT 05/25/2020 3:42 Resu lts for this DIFF) AM CDT procedure are i n the results section. CBC W/PLT COUNT & STAT 05/25/2020 3:42 Result s for this AUTO DIFFERENTIAL AM CDT procedure are in the results section. PERIPHERAL BLOOD AP Routine 05/25/2020 3:42 Results for this SMEAR - PATHOLOGIST AM CDT procedur e are in REVIEW the results section. RETICULOCYTE COUNT Routine 05/25/2020 3:42 Resul ts for this AM CDT procedure are i n the results section. COMPREHENSIVE Routine 05/25/2020 3:42 Results fo r this METABOLIC PANEL AM CDT procedure ar e in the results section. LACTIC ACID, VENOUS STAT 05/25/2020 3:42 Resu lts for this AM CDT procedure are i n the results section. CALCIUM, IONIZED STAT 05/25/2020 3:42 Results for this AM CDT procedure are i n the results section. HEPATIC FUNCTION STAT 05/25/2020 3:42 Results for this PANEL AM CDT procedure are i n the results section. PHOSPHORUS STAT 05/25/2020 3:42 Results for this AM CDT procedure are i n the results section. MAGNESIUM STAT 05/25/2020 3:42 Results for this AM CDT procedure are i n the results section. CBC W/PLT COUNT & STAT 05/25/2020 3:42 Result s for this AUTO DIFFERENTIAL AM CDT procedure are in the results section. TROPONIN I STAT 05/25/2020 3:42 Results for this AM CDT procedure are i n the results section. HAPTOGLOBIN Add-On 05/25/2020 3:41 Results for this AM CDT procedure are i n the results section. FERRITIN Routine 05/25/2020 3:41 Results for this AM CDT procedure are i n the results section. IRON, TIBC, % SAT. Routine 05/25/2020 3:41 Resul ts for this (WITHOUT FERRITIN) AM CDT procedure are in the results section. PT/APTT STAT 05/25/2020 3:41 Results for this AM CDT procedure are i n the results section. XR CHEST 1 VIEW Routine 05/25/2020 2:00 Results for this PORTABLE/BEDSIDE AM CDT procedure a re in the results section. US TESTICULAR Routine 05/25/2020 1:24 Results fo r this (SCROTUM) AM CDT procedure are i n the results section. TRANSFUSE Routine 05/25/2020 1:22 LEUKO-REDUCED RED AM CDT BLOOD CELLS PREPARE LEUKO-REDUCED STAT 05/24/2020 9:55 Re sults for this RBC PM CDT procedure are i n the results section. HEPATITIS B SURFACE Routine 05/24/2020 8:40 Resu lts for this ANTIGEN PM CDT procedure are i n the results section. HEMOGLOBIN AND Routine 05/24/2020 8:40 Results f or this HEMATOCRIT PM CDT procedure are i n the results section. B-TYPE NATRIURETIC Routine 05/24/2020 5:32 Resul ts for this FACTOR (BNP) PM CDT procedure are i n the results section. TROPONIN I STAT 05/24/2020 5:32 Results for this PM CDT procedure are i n the results section. BASIC METABOLIC PANEL Routine 05/24/2020 12:30 Re sults for this (7) PM CDT procedure are i n the results section. HEMOGLOBIN AND Routine 05/24/2020 12:30 Results f or this HEMATOCRIT PM CDT procedure are i n the results section. TROPONIN I STAT 05/24/2020 12:30 Results for this PM CDT procedure are i n the results section. 2D ECHO W/ DOPPLER Routine 05/24/2020 9:17 Resul ts for this (CW/PW/COLOR) AM CDT procedure are in the results section. PHOSPHORUS Add-On 05/24/2020 8:02 Results for this AM CDT procedure are i n the results section. BASIC METABOLIC PANEL STAT 05/24/2020 8:02 Re sults for this (7) AM CDT procedure are i n the results section. TROPONIN I STAT 05/24/2020 8:02 Results for this AM CDT procedure are i n the results section. HEMOGLOBIN AND Routine 05/24/2020 8:02 Results f or this HEMATOCRIT AM CDT procedure are i n the results section. TRANSFUSE Routine 05/24/2020 7:31 LEUKO-REDUCED RED AM CDT BLOOD CELLS ABORH, MANUAL STAT 05/24/2020 3:57 Results fo r this AM CDT procedure are i n the results section. LACTIC ACID, VENOUS STAT 05/24/2020 3:57 Resu lts for this AM CDT procedure are i n the results section. CALCIUM, IONIZED STAT 05/24/2020 3:56 Results for this AM CDT procedure are i n the results section. CBC W/PLT COUNT & STAT 05/24/2020 3:48 Result s for this AUTO DIFFERENTIAL AM CDT procedure are in the results section. VITAMIN B12 AND Routine 05/24/2020 3:48 Results for this FOLATE AM CDT procedure are i n the results section. HIV-1 ANTIGEN WITH Routine 05/24/2020 3:48 Resul ts for this HIV-1/2 ANTIBODY AM CDT procedure a re in the results section. HEMOGLOBIN A1C Routine 05/24/2020 3:48 Results f or this AM CDT procedure are i n the results section. HEPATIC FUNCTION STAT 05/24/2020 3:48 Results for this PANEL AM CDT procedure are i n the results section. PT/APTT STAT 05/24/2020 3:48 Results for this AM CDT procedure are i n the results section. PHOSPHORUS STAT 05/24/2020 3:48 Results for this AM CDT procedure are i n the results section. MAGNESIUM STAT 05/24/2020 3:48 Results for this AM CDT procedure are i n the results section. BASIC METABOLIC PANEL STAT 05/24/2020 3:48 Re sults for this (7) AM CDT procedure are i n the results section. CBC W/PLT COUNT & STAT 05/24/2020 3:48 Result s for this AUTO DIFFERENTIAL AM CDT procedure are in the results section. BLOOD CULTURE Routine 05/24/2020 3:34 AM CDT TYPE AND SCREEN, STAT 05/24/2020 2:59 Results for this AUTOMATED AM CDT procedure are i n the results section. PT/APTT STAT 05/24/2020 2:59 Results for this AM CDT procedure are i n the results section. BLOOD CULTURE Routine 05/24/2020 2:58 AM CDT SARS-COV2/RT-PCR STAT 05/24/2020 2:33 Results for this ([facility]) AM CDT procedure are in the results section. XR CHEST 1 VIEW STAT 05/24/2020 1:37 Results for this PORTABLE/BEDSIDE AM CDT procedure a re in the results section. CBC W/PLT COUNT & STAT 05/24/2020 1:29 Result s for this AUTO DIFFERENTIAL AM CDT procedure are in the results section. TROPONIN I STAT 05/24/2020 1:29 Results for this AM CDT procedure are i n the results section. LACTIC ACID, VENOUS STAT 05/24/2020 1:29 Resu lts for this AM CDT procedure are i n the results section. HEPATIC FUNCTION STAT 05/24/2020 1:29 Results for this PANEL AM CDT procedure are i n the results section. PHOSPHORUS STAT 05/24/2020 1:29 Results for this AM CDT procedure are i n the results section. MAGNESIUM STAT 05/24/2020 1:29 Results for this AM CDT procedure are i n the results section. BASIC METABOLIC PANEL STAT 05/24/2020 1:29 Re sults for this (7) AM CDT procedure are i n the results section. CBC W/PLT COUNT & STAT 05/24/2020 1:29 Result s for this AUTO DIFFERENTIAL AM CDT procedure are in the results section. BLOOD GAS, VENOUS STAT 05/24/2020 1:28 Result s for this AM CDT procedure are i n the results section. B-TYPE NATRIURETIC Routine 05/24/2020 1:27 Resul ts for this FACTOR (BNP) AM CDT procedure are i n the results section. SARS-COV2/RT-PCR Routine 02/22/2020 10:34 Results for this ([facility]) AM CDT procedure are in the results section. after 05/27/2019 Results REPORT OF PROCEDURE - ENDOSCOPY URL (05/27/2020 8:30 AM CDT) Narrative Performed At This result has an attachment that is no t available. Manual Differential (05/27/2020 3:40 AM CDT) % Neutros (manual) 63 % [facility] % Lymphs (manual) 17 % [facility] % Monos (manual) 4 % [facility] % Eos (manual) 3 % [facility] % Baso (manual) 1 % [facility] % Metamyelo (manual) 3 (H) 0 - 0 % [facility] % Bands (manual) 3 0 - 10 % [facility] % Atypical Lymphs 6 (H) 0 - 0 % [facility] # Neutros (manual) 7.12 1.80 - 8.00 K/L [facility] # Lymphs (manual) 1.92 1.48 - 4.50 K/L [facility] # Monos (manual) 0.45 0.00 - 1.30 K/L [facility] # Eos (manual) 0.34 0.00 - 0.50 K/L [facility] # Baso (manual) 0.11 0.00 - 0.20 K/L [facility] # Metamyelo (manual) 0.34 (H) 0.00 - 0.00 K/L [facility] # Bands (manual) 0.3 0.0 - 0.8 K/L [facility] # Atypical Lymphs 0.68 (H) 0.00 - 0.00 K/L [facility] Total Counted 100 [facility] Bands plus Segmented 7.46 [facility] Neutrophils [facility] nRBC (manual) 1 (H) 0 - 0 /100 WBC [facility] WBC Morphology Normal [facility] Platelet Morphology Normal [facility] Anisocytosis 1+ few [facility] Ovalocytes 1+ few [facility] Specimen Blood Performing Organization Address City/State/Zipcode Phone Number [facility] [address] [place] [address] CENTER PT/aPTT (05/27/2020 3:40 AM CDT)Only the most recent of5 resultswithin the time period is included. Protime 14.2 11.9 - 14.2 seconds [facility] INR 1.13 <=5.90 [facility] PTT 40.7 (H) 22.5 - 36.0 seconds [facility] Specimen Blood Narrative Performed At Effective 01/16/2019: PT Reference Range [facility] Change New: 11.9-14.2Previous: 11.7-14.7 RECOMMENDED COUMADIN/WARFARIN INR THERAPY RANGES STANDARD DOSE: 2.0-3.0Includes: PROPHYLAXIS for venous thrombosis, systemic embolization; TREATMENT for venous thrombosis and/or pulmonary embolus. HIGH RISK: Target INR is 2.5-3.5 for patients wiht mechanical heart valves. Performing Organization Address City/State/Zipcode Phone Number [facility] [address] [place] [address] CENTER CBC with platelet count + automated diff (05/27/2020 3:40 AM CDT)Only the most recent of6 resultswithin the time period is included. WBC 11.3 (H) 3.5 - 10.5 K/L [facility] RBC 2.50 (L) 4.63 - 6.08 M/L [facility] Hemoglobin 8.1 (L) 13.7 - 17.5 GM/DL [facility] Hematocrit 23.7 (L) 40.1 - 51.0 % [facility] MCV 94.8 (H) 79.0 - 92.2 fL [facility] MCH 32.4 (H) 25.7 - 32.2 pg [facility] MCHC 34.2 32.3 - 36.5 GM/DL [facility] RDW 15.8 (H) 11.6 - 14.4 % [facility] Platelets 71 (L) 150 - 450 K/CU MM [facility] MPV 10.4 9.4 - 12.4 fL [facility] nRBC 1 (H) 0 - 0 /100 WBC [facility] Specimen Blood Performing Organization Address City/[facility]/Zipcode Phone Number [facility] [address] [place] [address] CENTER Magnesium (05/27/2020 3:40 AM CDT)Only the most recent of5 resultswithin the time period is included. Magnesium 2.0 1.6 - 2.6 mg/dL [facility] Specimen Blood Narrative Performed At Roving Frame Tender ID - BONILLA Moore [facility] Performing Organization Address [facility] Cent[facility] Phone Number [address] [address] [place] Hepatic function panel (05/27/2020 3:40 AM CDT)Only the most recent of5 results within the time period is included. Protein, Total 6.5 6.0 - 8.3 gm/dL [facility] Albumin 3.3 (L) 3.5 - 5.0 g/dL [facility] Total Bilirubin 0.3 0.2 - 1.2 mg/dL [facility] Bilirubin, Direct 0.2 0.1 - 0.5 mg/dL [facility] Alkaline Phosphatase 64 40 - 150 U/L [facility] AST 23 5 - 34 U/L [facility] ALT 7 6 - 55 U/L [facility] Specimen Blood Narrative Performed At Roving Frame Tender ID - BONILLA Moore [facility] Performing Organization Address City/[facility]/Zipcode Phone Number [address] [address] CENTER Basic Metabolic Panel (05/27/2020 3:40 AM CDT)Only the most recent of6 results within the time period is included. Sodium 136 136 - 145 meq/L [facility] Potassium 4.2 3.5 - 5.1 meq/L [facility] Chloride 97 (L) 98 - 107 meq/L [facility] CO2 22 22 - 29 meq/L [facility] BUN 60 (H) 7 - 21 mg/dL [facility] Creatinine 12.85 (H) 0.57 - 1.25 mg/dL [facility] Glucose 93 70 - 105 mg/dL [facility] Calcium 8.7 8.4 - 10.2 mg/dL [facility] EGFR 4Comment: ESTIMATED GFR IS mL/min/1.73 sq m [facility] NOT ACCURATE CREATININE [facility] CLEARANCE IN PREDICTING GLOMERULAR FILTRATION RATE. ESTIMATED GFR IS NOT APPLICABLE FOR DIALYSIS PATIENTS. Specimen Blood Narrative Performed At Roving Frame Tender EVELYNE Ruiz BONILLA Moore [facility] Performing Organization Address City/State/Zipcode Phone Number [facility] [address] [place] [address] CENTER TRANSFUSION SERVICE REPORT - SCAN (05/26/2020 6:21 PM CDT)Only the most recent of2 resultswithin the time period is included. Narrative Performed At This result has an attachment that is no t available. Hepatitis C PCR, Quantitative (05/26/2020 12:26 PM CDT) HCV PCR, Quantitative HCV RNA not detected HCV RNA not detected [facility] Specimen Blood Narrative Performed At This test uses a Real-Time Polymerase Chain [facility] Reaction (RT-PCR) methodology and was performed using [employer] Ampliprep/[employer] TaqMan HCV test kit version 2.0 ([employer]). Reportable range for this assay is 15 - 100,000,000 IU per mL (1.18 - 8.00 Log IU/mL). Performing Organization Address [facility] Centercode Phone Number [address] [phone] CENTER D-dimer (05/26/2020 12:26 PM CDT)Only the most recent of2 resultswithin the time period is included. D-Dimer, Quant 4.65 (H) <0.50 MG/L FEU [facility] Specimen Blood Narrative Performed At Intended Use: The D-Dimer Assay can be used [facility] to aid in the diagnosis of Deep Vein Thrombosis (DVT) and Pulmonary Embolism Disease (PED). In patients with low pre-test probability, various studies concerning STA Liatest D-dimer test have reported that with a cutoff value of 0.50 MG/L FEU, the Negative Predictive Value (NPV) regarding the exclusion of thrombosis is within 95-100% range. Performing Organization Address [facility] Centercoms Phone Number [place] [phone] [place] [address] CENTER Manual Differential (05/26/2020 3:50 AM CDT)Only the most recent of2 results within the time period is included. % Neutros 62 % [facility] % Lymphs 26 % [facility] % Monos 3 % [facility] % Eos 3 % [facility] % Metamyelo 3 (H) 0 - 0 % [facility] % Myelo 1 (H) 0 - 0 % [facility] % Bands 1 0 - 10 % [facility] % Atypical Lymphs 1 (H) 0 - 0 % [facility] # Neutros 6.14 (H) 1.78 - 5.38 K/ul [facility] # Lymphs 2.57 1.32 - 3.57 K/ul [facility] # Monos 0.30 0.30 - 0.82 K/uL [facility] # Eos 0.30 0.04 - 0.54 K/uL [facility] # Metamyelo 0.30 (H) 0.00 - 0.00 K/uL [facility] # Myelo 0.10 (H) 0.00 - 0.00 K/uL [facility] # Bands 0.10 0.00 - 0.80 K/uL [facility] # Atypical Lymphs 0.10 (H) 0.00 - 0.00 K/uL [facility] Total Counted 100 [facility] nRBC (manual) 1 (H) 0 - 0 /100 WBC [facility] WBC Morphology Normal [facility] Platelet Morphology Normal [facility] Anisocytosis 1+ few [facility] Microcytes 1+ few [facility] Poikilocytes 1+ few [facility] Ovalocytes 1+ few [facility] Tear Drop Cells 1+ few [facility] Artifact Present [facility] Platelet Conc Decreased [facility] Specimen Blood Narrative Performed At Roving Frame Tender ID - Chris Dixon [facility] User comments: Slide comments: Performing Organization Address City/State/Zipcode Phone Number [facility] [address] [place] [address] CENTER Calcium, Ionized (05/26/2020 3:50 AM CDT)Only the most recent of3 resultswithin the time period is included. Calcium, Ion 1.08 (L) 1.12 - 1.27 mmol/L [facility] pH, Blood 7.49 [facility] Specimen Blood Performing Organization Address City/State/Zipcode Phone Number [facility] [address] [place] [address] CENTER Phosphorus (05/26/2020 3:50 AM CDT)Only the most recent of5 resultswithin the time period is included. Phosphorus 7.6 (H) 2.3 - 4.7 mg/dL [facility] Specimen Blood Narrative Performed At Roving Frame Tender ID - MARQUIS [facility] Performing Organization Address City/[facility]/Zipcode Phone Number [address] [address] CENTER Comprehensive metabolic panel (05/26/2020 3:50 AM CDT)Only the most recent of2 resultswithin the time period is included. Protein, Total 6.6 6.0 - 8.3 gm/dL [facility] Albumin 3.3 (L) 3.5 - 5.0 g/dL [facility] Alkaline Phosphatase 62 40 - 150 U/L [facility] Total Bilirubin 0.4 0.2 - 1.2 mg/dL [facility] Sodium 139 136 - 145 meq/L [facility] Potassium 4.1 3.5 - 5.1 meq/L [facility] Chloride 100 98 - 107 meq/L [facility] CO2 22 22 - 29 meq/L [facility] BUN 51 (H) 7 - 21 mg/dL [facility] Creatinine 10.29 (H) 0.57 - 1.25 mg/dL [facility] Glucose 98 70 - 105 mg/dL [facility] Calcium 8.6 8.4 - 10.2 mg/dL [facility] AST 20 5 - 34 U/L [facility] ALT 6 6 - 55 U/L [facility] ER EGFR 5Comment: ESTIMATED GFR mL/min/1.73 sq m [facility] IS NOT ACCURATE [facility] CREATININE CLEARANCE IN PREDICTING GLOMERULAR FILTRATION RATE. ESTIMATED GFR IS NOT APPLICABLE FOR DIALYSIS PATIENTS. Specimen Blood Narrative Performed At Roving Frame Tender ID - MARQUIS [facility] Performing Organization Address [facility] Phone Number [address] [address] CENTER Prepare Leuko-Red RBC (05/25/2020 11:54 PM CDT)Only the most recent of2 results within the time period is included. CROSSMATCH COMPATIBLE SAFETRACE TX Unit ABO O Pos SAFETRACE TX UNIT NUMBER [id number] SAFETRACE TX Status TX_TIMEINCHART SAFETRACE TX Blood Bank Product RED BLOOD CELLS SAFETRACE TX PRODUCT CODE [id number] SAFETRACE TX CROSSMATCH COMPATIBLE SAFETRACE TX Unit ABO O Pos SAFETRACE TX UNIT NUMBER [id number] SAFETRACE TX Status TX_TIMEINCHART SAFETRACE TX Blood Bank Product RED BLOOD CELLS SAFETRACE TX PRODUCT CODE [id number] SAFETRACE TX Specimen Other Performing Organization Address [facility] Cent[facility] Phone Number SAFETRACE TX TSH/Free T4 If Indicated (05/25/2020 7:14 PM CDT) TSH 3.581 0.350 - 4.940 uIU/mL [facility] Specimen Blood Narrative Performed At Roving Frame Tender ID - JR Crump [facility] Performing Organization Address [facility] Cent[facility]ode Phone Number [address] [address] CENTER Hemoglobin and hematocrit (05/25/2020 7:14 PM CDT)Only the most recent of5 resultswithin the time period is included. Hemoglobin 9.0 (L) 13.7 - 17.5 GM/DL [facility] Hematocrit 26.7 (L) 40.1 - 51.0 % [facility] Specimen Blood Narrative Performed At Roving Frame Tender ID - [id number] [facility] Performing Organization Address City/[facility]/Zipcode Phone Number [address] [address] CENTER Prothrombin time/INR (05/25/2020 11:42 AM CDT) Protime 14.6 (H) 11.9 - 14.2 seconds [facility] INR 1.17 <=5.90 [facility] Specimen Blood Narrative Performed At Effective 01/16/2019: PT Reference Range [facility] Change New: 11.9-14.2Previous: 11.7-14.7 RECOMMENDED COUMADIN/WARFARIN INR THERAPY RANGES STANDARD DOSE: 2.0-3.0Includes: PROPHYLAXIS for venous thrombosis, systemic embolization; TREATMENT for venous thrombosis and/or pulmonary embolus. HIGH RISK: Target INR is 2.5-3.5 for patients wiht mechanical heart valves. Performing Organization Address City/[facility]/Zipcode Phone Number [address] [address] CENTER Lactate dehydrogenase (LDH) (05/25/2020 11:42 AM CDT) LDH 341 (H) 125 - 220 U/L [facility] Specimen Blood Narrative Performed At Roving Frame Tender ID - CAROLINA F [facility] Performing Organization Address City/State/Zipcode Phone Number [address] [address] CENTER Peripheral Blood Smear - Path Review (05/25/2020 3:42 AM CDT) Pathologist Review Macrocytic anemia, moderate C [facility] anisopoikilocytosis, with rare [facility] schistocytes (0.8 per HPF). WBCs with mild left shift, including occasional myeloid precursors, no blasts seen. Few hypersegmented neutrophils. Thrombocytopenia with unremarkable morphology. Pathologist: Maddie Dsouza M.D [facility] Specimen Blood Performing Organization Address [facility] Centercode Phone Number [address] [address] CENTER Troponin I (05/25/2020 3:42 AM CDT)Only the most recent of5 resultswithin the time period is included. Troponin I 0.46 (HH) 0.00 - 0.03 ng/mL [facility] Specimen Blood Narrative Performed At Troponin I (TnI) levels must be interpreted [facility] in the context of the presenting symptoms and the clinical findings. Elevated TnI levels indicate myocardial damage, but are not specific for ischemic heart disease. Elevated TnI levels are seen in patients with other cardiac conditions (including myocarditis and congestive heart failure), and slight TnI elevations occur in patients with other conditions, including sepsis, renal failure, acidosis, acute neurological disease, and persistent tachyarrhythmia. Roving Frame Tender ID - DB Performing Organization Address [facility] Centercoms Phone Number [address] [address] CENTER Lactic acid, venous (05/25/2020 3:42 AM CDT)Only the most recent of3 results within the time period is included. Lactate, Venous 0.42 (L) 0.50 - 2.20 mmol/L [facility] Specimen Blood Narrative Performed At Roving Frame Tender ID - DB [facility] Performing Organization Address [facility]/Zipcode Phone Number [address] [address] CENTER Reticulocyte count (05/25/2020 3:42 AM CDT) % Retic 1.5 0.5 - 1.8 % [facility] Specimen Blood Narrative Performed At Roving Frame Tender ID - [id number] [facility] Performing Organization Address City/[facility] Centercode Phone Number [address] [address] CENTER Iron, TIBC, % sat. (without ferritin) (05/25/2020 3:41 AM CDT) Iron 118.0 40.0 - 160.0 ug/dL [facility] TIBC 170 (L) 250 - 450 ug/dL [facility] Iron % Saturation 69 (H) 20 - 55 % [facility] Specimen Blood Narrative Performed At Roving Frame Tender ID - EDASI [facility] Performing Organization Address City/[facility] Centercode Phone Number [address] [address] CENTER Haptoglobin (05/25/2020 3:41 AM CDT) Haptoglobin 172 14 - 258 mg/dL [facility] Specimen Blood Narrative Performed At Roving Frame Tender ID - CAROLINA F [facility] Performing Organization Address City/[facility] Centercode Phone Number [address] [address] CENTER Ferritin (05/25/2020 3:41 AM CDT) Ferritin 10,294.32 (H) 5.00 - 275.00 ng/mL [facility] Specimen Blood Narrative Performed At Roving Frame Tender ID - EDASI [facility] Performing Organization Address City/[facility] Centercode Phone Number [address] [address] CENTER XR chest 1 view portable / bedside (05/25/2020 2:00 AM CDT)Only the most recent of2 resultswithin the time period is included. Specimen Narrative Performed At FINAL REPORT [email or web address] RAD, CHEST, 1 VIEW, NON DEPT INDICATION: pulmonary edema COMPARISON: Prior day's exam FINDINGS: Portable frontal view of the c hest. IMPRESSION: Support Lines: Stable. Lungs and pleura: Unchanged venous conge stion and interstitial opacities. No consolidation or effusion. No pneumothorax. Heart and mediastinum: Stable contours. Additional findings: None. Signed: Sally Renae MD Report Verified Date/Time:05/25/2020 04:42:11 Procedure Note Interface, External Ris In - 05/25/2020 4:44 AM CDT FINAL REPORT RAD, CHEST, 1 VIEW, NON DEPT INDICATION: pulmonary edema COMPARISON: Prior day's exam FINDINGS: Portable frontal view of the c hest. IMPRESSION: Support Lines: Stable. Lungs and pleura: Unchanged venous conge stion and interstitial opacities. No consolidation or effusion. No pneumothorax. Heart and mediastinum: Stable contours. Additional findings: None. Signed: Sally Renae MD Report Verified Date/Time: 05/25/2020 0 4:42:11 Performing Organization Address City/State/Zipcode Phone Number [facility] US testicular (scrotum) (05/25/2020 1:24 AM CDT) Specimen Narrative Performed At FINAL REPORT [email or web address] TECHNIQUE: Grayscale, color Doppler, and spectral Doppler ultrasound of the scrotum and testicles. INDICATION: rule out torsion. COMPARISON: None. FINDINGS: RIGHT TESTIS: Measures 4.2 x 1.9 x 2.2 c m. Normal echotexture without focal lesions. LEFT TESTIS: Measures 4.1 x 2.1 x 2.2 cm . Normal echotexture without focal lesions. VASCULAR: There are symmetric, arterial waveforms detected in both testes. No varicocele. EPIDIDYMIDES: Unremarkable. SCROTUM: No hydrocele. IMPRESSION: This is a normal scrotal ultrasound. Spe cifically, no testicular torsion. Signed: Kwasi Verde MD Report Verified Date/Time:05/25/2020 08:58:57 Procedure Note Interface, External Ris In - 05/25/2020 9:01 AM CDT FINAL REPORT TECHNIQUE: Grayscale, color Doppler, and spectral Doppler ultrasound of the scrotum and testicles. INDICATION: rule out torsion. COMPARISON: None. FINDINGS: RIGHT TESTIS: Measures 4.2 x 1.9 x 2.2 c m. Normal echotexture without focal lesions. LEFT TESTIS: Measures 4.1 x 2.1 x 2.2 cm . Normal echotexture without focal lesions. VASCULAR: There are symmetric, arterial waveforms detected in both testes. No varicocele. EPIDIDYMIDES: Unremarkable. SCROTUM: No hydrocele. IMPRESSION: This is a normal scrotal ultrasound. Spe cifically, no testicular torsion. Signed: Kwasi Verde MD Report Verified Date/Time: 05/25/2020 0 8:58:57 Performing Organization Address [facility] Phone Number GE RIS Transfuse Leuko-Red RBC (05/25/2020 1:22 AM CDT)Only the most recent of4 resultswithin the time period is included.Hepatitis B surface antigen (05/24/2020 8:40 PM CDT) HBsAg Screen Nonreactive Nonreactive [facility] Specimen Blood Narrative Performed At Specimen is considered negative for HBsAg. [facility] Performing Organization Address [facility] Centercode Phone Number [address] [address] CENTER B-type Natriuretic Factor (BNP) (05/24/2020 5:32 PM CDT)Only the most recent of 2 resultswithin the time period is included. BNP 202 (H) 0 - 100 pg/mL [facility] Specimen Blood Narrative Performed At Roving Frame Tender ID - ROSIANG [facility] Performing Organization Address [facility]/Zipcode Phone Number [address] [address] [place] 2D Echo W/Doppler(CW/PW/Color) (05/24/2020 9:17 AM CDT) Ejection Fraction [facility] ECHO HEAR TLAB [facility] Specimen Narrative Performed At Transthoracic Echocardiography Report (T TE) [facility] Demographics Patient Name Adalgisa PADILLA of Study 05/24/2020 KYLIE [id number] Gender Male Visit Number [id number] Unknown [id number] Room Number 7217 Number Date of Birth1965Referring Physician Age55 year(s)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 Clinical History HGB 8.1 HCT 23.5 % Height: 65 inches Weight: 69.4 kg (153 lbs) BSA: 1.77 m^2 BMI: 25.46 kg/m^2 HR: 89 bpm BP: 168/97 mmHg Summary No evidence of vegetation/thrombus by TTE, recommend ARLINE, if clinically indicated. Normal left ventricular chamber size. No apparent segmental wall motion abnormalities. Estimated LVEF by qualitative assessment is increased (>60%) . Grade 1 diastolic dysfunction (impaired relaxation and low-normal LA pressure). Unable to estimate peak systolic PA pressure; inadequate TR velocity signal. Signature Findings Left Ventricle Normal left ventricular chamber size. Normal wall th ickness. Normal overall left ventricular systolic fu nction. No apparent segmental wall motio n ab normalities. Estimated LVEF by qualitati ve as sessment is increased (>60%) . Grade 1 d iastolic dy sfunction (impaired relaxation and low-n ormal LA pr essure). Left AtriumLA size is normal . Right VentricleNormal right ventricle structure and function. Right Atrium Normal right atrium. Aortic Valve Normal AoV structure and function. Mitral Valve Normal MV structure and function. Tricuspid ValveA trace of tricuspid regurgitation. Un able to estimate peak systolic PA pressu re; in adequate TR velocity signal. Pulmonic Valve Normal PV structure and function by limited views an d Doppler. AortaAortic root size (SInus of Valsalva diameter) i s no rmal . PericardiumNo evidence of pericardial effusion. IVC/SVC/PA/PV/PleuralThe estimated RA pressure by IVC dynamics 0-5mmHg . Chambers/Structures Left Atrium LA Volume: 53.18 ml LA Area: 19.74 cm^2 LA Vol. Index: 30 ml/m^2 Left Ventricle LVIDd: 4.76 cm LVEDV:10 5.61 ml LV Septum Diastolic: 0.88 cm LV PW Diastolic: 0.89 cm LVOT Diameter: 2.01 cm Right Ventricle RVOT VTI: 23.09 cm Doppler/Quantitative Measurements Mitral Valve MV Peak E-Wave: 0.69 m/s MV Peak A-Wave: 0.94 m/s E/A Ratio: 0.74 Peak Gradient: 1.9 3 mmHg Deceleration Time: 100.8 msec MV Antonio. Peak: Aortic Valve Peak Velocity: 1.27 m/sMean Velocity: 0.78 m/s Peak Gradient: 6.42 mmHg Mean Gradient: 2.87 mmHg AV Area (continuity): 3.07 cm^2 AV VTI: 19.8 cm AV DVI: 0.97 LVOT Peak Velocity: 1.26 m/s Peak Gradient: 6.34 mmHg Mean Velocity: 0.63 m/s Mean Gradient: 2.09 mmHg LVOT Diameter: 2.01 cmLVOT VTI: 19.15 cm LVOT Area: 3.17 cm^2LVOT SV:60.73 ml LVOT CO: 5.41 l/min LVOT CI: 3.06 l/min/m^2 Procedure Note Interface, External Ris In - 05/25/2020 10:54 AM CDT Transthoracic Echocardiography Report (TTE) Demographics Patient Name THIERRY PADILLA Date o f Study 05/24/2020 KYLIE Gender Male Visit Number [id number] Race Unknown Room N [facility] 7217 Number Date of 1965 Referr adonay Physician Age 55 year(s) 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 Clinical History HGB 8.1 HCT 23.5 % Height: 65 inches Weight: 69.4 kg (153 l bs) BSA: 1.77 m^2 BMI: 25.46 kg/m^2 HR: 89 bpm BP: 168/97 mmHg Summary No evidence of vegetation/thrombus by T TE, recommend ARLINE, if clinically indicated. Normal left ventricular chamber size. N o apparent segmental wall motion abnormalities. Estimated LVEF by qualit ative assessment is increased (>60%) . Grade 1 diastolic dysfunction (impaired relaxation and low-normal LA pressure). Unable to estimate peak systolic PA pre ssure; inadequate TR velocity signal. Signature Findings Left Ventricle Normal left vent ricular chamber size. Normal wall thickness. Vianney l overall left ventricular systolic function. No dagoberto arent segmental wall motion abnormalities. E stimated LVEF by qualitative assessment is in creased (>60%) . Grade 1 diastolic dysfunction (imp aired relaxation and low-normal LA pressure). Left Atrium LA size is vianney l . Right Ventricle Normal right raquel tricle structure and function. Right Atrium Normal right atr ium. Aortic Valve Normal AoV struc ture and function. Mitral Valve Normal MV struct ure and function. Tricuspid Valve A trace of tricu spid regurgitation. Unable to estima te peak systolic PA pressure; inadequate TR ve locity signal. Pulmonic Valve Normal PV struct ure and function by limited views and Doppler. Aorta Aortic root size (SInus of Valsalva diameter) is normal . Pericardium No evidence of p ericardial effusion. IVC/SVC/PA/PV/Pleural The estimated RA pressure by IVC dynamics 0-5mmHg . Chambers/Structures Left Atrium LA Volume: 53.18 ml LA Area: 19.74 cm^2 LA Vol. Index: 30 ml/m^2 Left Ventricle LVIDd: 4.76 cm LVEDV:105.61 ml LV Septum Diastolic: 0.88 cm LV PW Diastolic: 0.89 cm LVOT Diameter: 2.01 cm Right Ventricle RVOT VTI: 23.09 cm Doppler/Quantitative Measurements Mitral Valve MV Peak E-Wave: 0.69 m/s MV P eak A-Wave: 0.94 m/s E/A Ratio: 0.74 Peak Gradient: 1.93 mmHg Dece leration Time: 100.8 msec MV Antonio. Peak: Aortic Valve Peak Velocity: 1.27 m/s Mean Velocity: 0.78 m/s Peak Gradient: 6.42 mmHg Mean Gradient: 2.87 mmHg AV Area (continuity): 3.07 cm^2 AV VTI: 19.8 cm AV DVI: 0.97 LVOT Peak Velocity: 1.26 m/s Pea k Gradient: 6.34 mmHg Mean Velocity: 0.63 m/s Ronel n Gradient: 2.09 mmHg LVOT Diameter: 2.01 cm LVO T VTI: 19.15 cm LVOT Area: 3.17 cm^2 LVO T SV:60.73 ml LVOT CO: 5.41 l/min LVO T CI: 3.06 l/min/m^2 Performing Organization Address City/State/Zipcode Phone Number [facility]CHO HEARTLAB MKCKESSON CPACS ABORH, manual (05/24/2020 3:57 AM CDT) [facility] O [facility] Rh Factor POS [facility] Specimen Blood Performing Organization Address City/[facility]/Zipcode Phone Number [address] [address] Vitamin B12 and Folate (05/24/2020 3:48 AM CDT) Vitamin B12 237 213 - 816 pg/mL [facility] Folate 4.00 (L) >=7.00 ng/mL [facility] Specimen Blood Narrative Performed At Roving Frame Tender ID - EDASI [facility] Performing Organization Address [facility] Centercode Phone Number [address] [address] CENTER HIV-1 Antigen with HIV-1/2 Antibody (05/24/2020 3:48 AM CDT) HIV-1 Antigen with HIV 1&2 Nonreactive Nonreactive [facility] Specimen Blood Performing Organization Address City/[facility] Cent[facility]ode Phone Number [address] [address] CENTER Hemoglobin A1c (05/24/2020 3:48 AM CDT) Hemoglobin A1C 5.8 4.3 - 6.1 % [facility] Specimen Blood Performing Organization Address City/[facility] Centercode Phone Number [address] [address] CENTER Type and screen, automated (05/24/2020 2:59 AM CDT) ABO/RH AUTOMATED (BEAKER) O POSITIVE [facility] Ab Scrn NEGATIVE [facility] Specimen Blood Performing Organization Address City/[facility]/Zipcode Phone Number [address] [address] SARS-CoV2/RT-PCR (Symptomatic ONLY) (05/24/2020 2:33 AM CDT)Only the most recent of2 resultswithin the time period is included. SARS-COV2/RT-PCR Negative Not Detected, Negative, [facility] See external report for MEDICAL CENTER linked test SARS-COV-2 PERFORMING LAB [facility] Specimen Other Narrative Performed At Negative results do not preclude SARS-CoV-2 [facility] infection and should not be used as the sole basis for patient management decisions. Negative results must be combined with clinical observations, patient history, and epidemiological information. A false negative result may occur if a specimen is improperly collected, transported or handled. The limit of detection for this assay is 250 copies/mL. This SARS CoV-2 test is a rapid, real-time RT-PCR test intended for the qualitative detection of nucleic acid from SARS-CoV-2 in a nasopharyngeal swab specimen collected from individuals suspected of COVID-19 by their healthcare provider. This test has not been Food and Drug Administration (FDA) cleared or approved and has been authorized by FDA under an Emergency Use Authorization (EUA). This EUA will be effective until the declaration that circumstances exist justifying the authorization of the emergency use of in vitro diagnostic tests for detection and/or diagnosis of COVID-19 is terminated under Section 564(b)(2) of the Act or the EUA is revoked under Section 564(g) of the Act. Fact Sheet for Healthcare Providers: https://www.[employer]/Documents/Xpert%20Xpre ss%20SARS%20CoV-2/Fact%20Sheets/3023802%20SAR S-COV-2%20HEALTHCARE%20PROVIDERS%20FACT%20SHEE T.pdf Fact Sheet for Healthcare Patients: https://www.[employer]/Documents/Xpert%20Xpre ss%20SARS%20CoV-2/Fact%20Sheets/3023801%20SAR S-COV-2%20PATIENT%20FACT%20SHEET.pdf Performing Laboratory: [facility] [address] [place] [address] Performing Organization Address City/State/Zipcode Phone Number [facility] [address] [place] [address] [place] Blood gas, venous (05/24/2020 1:28 AM CDT) pH, Raquel 7.27 (L) 7.32 - 7.42 [facility] pCO2, Raquel 26 (L) 41 - 51 mmHg [facility] pO2, Raquel 63 (H) 25 - 40 mmHg [facility] O2 Sat, Raquel 89.7 (H) 40.0 - 70.0 % [facility] HCO3, Raquel 12 (L) 21 - 29 mmol/L [facility] Base Excess, Raquel -14.0 (L) -2.0 - 3.0 mmol/L [facility] Patient Temperature 37.0 C [facility] FIO2 100.0 % [facility] Specimen Blood Performing Organization Address City/State/Zipcode Phone Number [facility] [address] [place] [address] [place] after 05/27/2019 Insurance Payer Benefit Plan / Group Subscriber ID Type Phone A ddress MEDICARE MEDICARE A B xxxxxxxxxxx Medicare MEDICAID MEDICAID [facility] xxxxxxxxx Medicaid Advance Directives For more information, please contact:[address] [phone] Code Status Date Activated Date Inactivated Comments Full Code 05/24/2020 1:02 AM This code status was determined by: Patient
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
--- OUTSIDE RECORDS SUMMARY | 2020-05-27 23:18 | XMS REPORT | Continuity of Care Document ---
:1965 Author Organization [facility] t Address [address] [place] [address] Care Team Providers Name Role Phone Ariana LOWERY, Yaakov Attending Clinician Bello LOWERY, Akbar Attending Clinician KWAKU MIGUEL Attending Clinician Unavailable Santy Cardona MD, Kwaku Attending Clinician [phone] Donna Nicholas MD Attending Clinician David LOWERY, PTyree Attending Clinician Akilah Matthews Attending Clinician Vreónica Delgadillo DO Attending Clinician KWAKU MIGUEL Admitting Clinician Unavailable Payers Payer Name Policy Policy Number Effective Expiration Source Type Date Date MEDICAREMEDICARE A xxxxxxxxxxx [facility] [place] [place] [facility] Problems Condition Condition Condition Status Onset Resolution Last Treating Co mments Source Name Details Category Date Date Treatment Clinician Date Hyperkalem Hyperkalem Disease Active 2019-[address] [facility] 0- - 00:00: Medical 00 Mondamin PINA (acute PINA (acute Disease Active C HI [facility] kidney kidney [facility] - injury) injury) [facility] Allergies, Adverse Reactions, Alerts Allergy Allergy Status Severity Reaction(s) Onset Inactive Treating Comm ents Source Name Type Date Date Clinician Gabapent Drug Active 2019-[address] [facility] Allergy 0 - 00:00: Medical 00 Center Social History Social Habit Start Date Stop Date Quantity Comments Source Sex Assigned At [facility] Smoking Status Start Date Stop Date Source Former smoker 2020-05-27 00:00:00 2020-05-27 00:00:00 [facility] Medications This patient has no known medications. Immunizations Ordered Immunization Filled Immunization Date Status Commen ts Source Name Name Influenza Four-QIV 2020-05-25 Completed [facility] PF 3YR+ 00:00:[address] [facility] Vital Signs Vital Name Observation Time Observation Value Comments Source Systolic blood 2020-05-27 21:05:00 164 mm[Hg] [facility] Diastolic blood 2020-05-27 21:05:00 86 mm[Hg] [facility] Heart rate 2020-05-27 21:05:00 84 /min [facility] Body temperature 2020-05-27 21:05:00 36.83 Gissell [facility] Respiratory rate 2020-05-27 21:05:00 18 /min [facility] Oxygen saturation in 2020-05-27 21:05:00 97 /min [facility] Arterial blood by Medical Ce nter Pulse oximetry Body weight Measured 2020-05-27 18:45:00 67.7 kg [facility] BMI 2020-05-27 18:45:00 24.10 kg/m2 [facility] Body height 2020-05-24 00:30:00 167.6 cm [facility] Procedures Procedure Date / Time Performed Performing Clinician [facility] REPORT OF PROCEDURE - 2020-05-27 08:30:04 Myrna Monsalve [facility] ENDOSCOPY [facility] UPPER ENDOSCOPY,BIOPSY 2020-05-27 08:00:00 Myrna Monsalve [facility] BASIC METABOLIC PANEL (7) 2020-05-27 03:40:00 Sonido Schofield CH, I [facility] MAGNESIUM 2020-05-27 03:40:[address] [facility] PT/APTT 2020-05-27 03:40:00 Serenio, [facility] HEPATIC FUNCTION PANEL 2020-05-27 03:40:[address] [facility] CBC W/PLT COUNT & AUTO 2020-05-27 03:40:00 Sergema [facility] DIFFERENTIAL [facility] (MANUAL DIFFERENTIAL) 2020-05-27 03:40:00 Delia Matthews [facility] TRANSFUSION SERVICE 2020-05-26 18:21:41 ProviderChristopher [facility] REPORT - SCAN [facility] HEPATITIS C PCR, 2020-05-26 12:26:00 Vee Hernandez Tyree [facility] D-DIMER 2020-05-26 12:26:00 Vee Hernandez [facility] BASIC METABOLIC PANEL (7) 2020-05-26 03:50:00 Kanwal [facility] MAGNESIUM 2020-05-26 03:50:[address] [facility] PHOSPHORUS 2020-05-26 03:50:[address] PT/APTT 2020-05-26 03:50:00 [facility] FUN[facility] PANEL 2020-05-26 03:50:[address] [facility] CALCIUM, IONIZED 2020-05-26 03:50:[address] [facility] COMPREHENSIVE METABOLIC 2020-05-26 03:50:00 Marlo Hernandez [facility] CBC W/PLT COUNT & AUTO 2020-05-26 03:50:00 Kanwal [facility] (CELLAVISION MANUAL DIFF) 2020-05-26 03:50:00 Kanwal [facility] PREPARE LEUKO-REDUCED RBC 2020-05-25 23:54:00 Kanwal [facility] TSH/FREE T4 IF INDICATED 2020-05-25 19:14:00 Vee Hernandez [facility] HEMOGLOBIN AND HEMATOCRIT 2020-05-25 19:14:00 LeyLayo [facility] TRANSFUSION SERVICE 2020-05-25 18:01:32 Christopher Rivas [facility] HEMOGLOBIN AND HEMATOCRIT 2020-05-25 11:42:00 Layo Ley [facility] LACTATE DEHYDROGENASE 2020-05-25 11:42:00 WorthingtonJosé ManuelLayo [facility] (LDH) [facility] PROTHROMBIN TIME/INR 2020-05-25 11:42:00 [facility] D-DIMER 2020-05-25 11:42:00 [facility] CBC W/PLT COUNT & AUTO 2020-05-25 11:42:00 WorthingtonJosé ManuelLayo [facility] DIFFERENTIAL [facility] TROPONIN I 2020-05-25 03:42:[address] [facility] MAGNESIUM 2020-05-25 03:42[facility] 2020-05-25 03:42:00 [facility]EL 2020-05-25 03:42[facility]00 [facility] CALCIUM, IONIZED 2020-05-25 03:42:00 [facility] LACTIC ACID, VENOUS 2020-05-25 03:42:00 [facility] COMPREHENSIVE METABOLIC 2020-05-25 03:42:00 [facility] 2020-05-25 03:42:00 [facility] PERIPHERAL BLOOD SMEAR - 2020-05-25 03:42:00 Bala Genao [facility] - PATHOLOGIST REVIEW Medical [facility] CBC W/PLT COUNT & AUTO 2020-05-25 03:42:00 Sonido [facility]ofield [facility] DIFFERENTIAL [facility] (CELLAVISION MANUAL DIFF) 2020-05-25 03:42:00 Sonido Schofield [facility] PT/APTT 2020-05-25 03:41:[address] [facility] IRON, TIBC, % SAT. 2020-05-25 03:41:00 [facility] 2020-05-25 03:41[facility]00 [facility] 2020-05-25 03:41:00 [facility] XR CHEST 1 VIEW 2020-05-25 02:00[facility]/BEDSIDE [facility] US TESTICULAR (SCROTUM) 2020-05-25 01:24:00 [facility] LEUKO-REDUCED 2020-05-25 01:22:54 Kanwal [facility] RED BLOOD CELLS [facility] PREPARE LEUKO-REDUCED RBC 2020-05-24 21:55:00 Sonido Schofield [facility] HEMOGLOBIN AND HEMATOCRIT 2020-05-24 20:40:00 Av [facility] HEPATITIS B SURFACE 2020-05-24 20:40:00 [facility]IN I 2020-05-24 17:32:[address] [facility] B-TYPE NATRIURETIC FACTOR 2020-05-24 17:32:00 Sonido Schofield [facility] (BNP) [facility] TROPONIN I 2020-05-24 12:30:[address] [facility] HEMOGLOBIN AND HEMATOCRIT 2020-05-24 12:30:00 [facility] BASIC METABOLIC PANEL (7) 2020-05-24 12:30:00 Worthington [facility] 2D ECHO W/ DOPPLER 2020-05-24 09:17:10 Santy [facility] - (CW/PW/COLOR) [facility] HEMOGLOBIN AND HEMATOCRIT 2020-05-24 08:02:00 Adela Miguel [facility] TROPONIN I 2020-05-24 08:02:[address] [facility] BASIC METABOLIC PANEL (7) 2020-05-24 08:02:00 Layo Ley [facility] PHOSPHORUS 2020-05-24 08:02:00 Av Layo [facility] TRANSFUSE LEUKO-REDUCED 2020-05-24 07:31:48 Kanwal [facility] RED BLOOD CELLS [facility] LACTIC ACID, VENOUS 2020-05-24 03:57:[address] [facility] ABORH, MANUAL 2020-05-24 03:57:00 Vidhi Flowers [facility] CALCIUM, IONIZED 2020-05-24 03:56:[address] [facility] BASIC METABOLIC PANEL (7) 2020-05-24 03:48:00 Kanwal Sonido [facility] MAGNESIUM 2020-05-24 03:48:[address] [facility] PHOSPHORUS 2020-05-24 03:48:[address] [facility] PT/APTT 2020-05-24 03:48:[address] [facility] HEPATIC FUNCTION PANEL 2020-05-24 03:48:[address] [facility] HEMOGLOBIN A1C 2020-05-24 03:48:00 Santy Cardona [facility] HIV-1 ANTIGEN WITH 2020-05-24 03:48:00 Santy Cardona [facility] - HIV-1/2 ANTIBODY [facility] VITAMIN B12 AND FOLATE 2020-05-24 03:48:00 Snaty Cardona [facility] CBC W/PLT COUNT & AUTO 2020-05-24 03:48:00 Kanwal [facility] DIFFERENTIAL [facility] BLOOD CULTURE 2020-05-24 03:34:[address] [facility] PT/APTT 2020-05-24 02:59:[address] [facility] TYPE AND SCREEN, 2020-05-24 02:59:00 Sergema [facility] s - AUTOMATED [facility] BLOOD CULTURE 2020-05-24 02:58:[address] SARS-COV2/RT-PCR ([facility] & 2020-05-24 02:33:00 Kanwal [facility] - REF LABS) [facility] XR CHEST 1 VIEW 2020-05-24 01:37:00 Kanwal [facility] - PORTABLE/BEDSIDE [facility] BASIC METABOLIC PANEL (7) 2020-05-24 01:29:00 Sonido Schofield I [facility] MAGNESIUM 2020-05-24 01:29:[address] [facility] PHOSPHORUS 2020-05-24 01:29:[address] [facility] HEPATIC FUNCTION PANEL 2020-05-24 01:29:[address] [facility] LACTIC ACID, VENOUS 2020-05-24 01:29:00 Kanwal [facility] L [facility] TROPONIN I 2020-05-24 01:29:[address] CBC W/PLT COUNT & AUTO 2020-05-24 01:29:00 Sonido Schofield [facility] DIFFERENTIAL [facility] BLOOD GAS, VENOUS 2020-05-24 01:28:00 Kanwal [facility] B-TYPE NATRIURETIC FACTOR 2020-05-24 01:27:00 Sonido Schofield CH I [facility] - (BNP) [facility] SARS-COV2/RT-PCR ([facility] & 2020-02-22 10:34:00 [facility] - REF LABS) [facility] Plan of Care Planned Activity Planned Date Details Comments Source Future Scheduled 2020-05-[address] [facility] 00:[facility]00 (WELCOME TO [facility] MEDICARE) [code = Medicare IPPE (WELCOME TO MEDICARE)] Future Scheduled [address] [facility] - Test 00:00:00 (procedure) [code = [facility] 42756895] Future Scheduled [address] [facility] - Test 00:00:00 malignant neoplasm Medical C enter of colon (procedure) [code = 266651929] Encounters Start End Encounter Admission Attending Care Care Encounter Source Date/Time Date/Time Type Type Clinicians Facility Department ID 2020-05-08 2020-05-08 Emergency [facility] [id number] 14:38:00 18:28:00 Renata Ramos [id number] [place] [id number] [place] [id number] Results Test Description Test Time Test Comments Results Result Comments Source Hepatitis C PCR, Quantitative 2020-05-27 22:57:00 Test Item Value Reference Range Interpretation Comme nts HCV PCR, Quantitative (test code HCV RNA not detected HCV RNA not d etected = 47356-3) FANTA (test code = FANTA) This test uses a Real-Time Polymerase Chain Reaction (RT-PCR) methodology and was performed using BAIRON Ampliprep/BAIRON TaqMan HCV test kit version 2.0 ([employer]). Reportable range for this assay is 15 - 100,000,000 IU per mL (1.18 - 8.00 Log IU/mL). Lab Interpretation (test code = Normal 34783-9) [facility], [id number] 22:57:00 Test Item Value Reference Range Interpretation Comments HCV RESULT COMPONENT HCV RNA not detected HCV RNA not detected (BEAKER) (test code = 2699) This test uses a Real-Time Polymerase Chain Reaction (RT-PCR) methodology and was performed using [employer] Ampliprep/BAIRON TaqMan HCV test kit version 2.0 ([employer]).Reportable range for this assay is 15 - 100,000,000 IU per mL (1.18 - 8.00 Log IU/mL).CBC with platelet count + automated [id number] 12:07:00 Test Item Value Reference Range Interpretation Comments WBC (test code = 6690-2) 11.3 3.5- 10.5 K/L H RBC (test code = 789-8) 2.50 4.63- 6.08 M/L L MCHC (test code = 786-4) 34.2 32.3- 36.5 GM/DL L Hematocrit (test code = 4544-3) 23.7 % 40.1-51 L MCV (test code = 787-2) 94.8 fL 79-92.2 H MCH (test code = 785-6) 32.4 pg 25.7-32.2 H RDW (test code = 788-0) 15.8 % 11.6-14.4 H Platelets (test code = 777-3) 71 150- 450 K/CU MM L MPV (test code = 49469-9) 10.4 fL 9.4-12.4 nRBC (test code = 413) 1 0- 0 /100 WBC H Lab Interpretation (test code = Abnormal 75194-9) [facility] [id number] 12:07:00 Test Item Value Reference Range Interpretation Comments % Neutros (manual) (test code = 63 % 1359) % Lymphs (manual) (test code = 17 % 1360) % Monos (manual) (test code = 1361) 4 % % Eos (manual) (test code = 1362) 3 % % Baso (manual) (test code = 1363) 1 % % Metamyelo (manual) (test code = 3 % 0-0 H 258) % Bands (manual) (test code = 1348) 3 % 0-10 % Atypical Lymphs (test code = 260) 6 % 0-0 H # Neutros (manual) (test code = 7.12 1.80- 8.00 K/L 1365) # Lymphs (manual) (test code = 1.92 1.48- 4.50 K/L 1366) # Monos (manual) (test code = 1367) 0.45 0.00- 1.30 K/L # Eos (manual) (test code = 1368) 0.34 0.00- 0.50 K/L # Baso (manual) (test code = 1369) 0.11 0.00- 0.20 K/L # Metamyelo (manual) (test code = 0.34 0.00- 0.00 K/L H 261) # Bands (manual) (test code = 1349) 0.3 0.0- 0.8 K/L # Atypical Lymphs (test code = 263) 0.68 0.00- 0.00 K/L H Total Counted (test code = 1351) 100 Bands plus Segmented Neutrophils 7.46 (test code = 1352) nRBC (manual) (test code = 1353) 1 0- 0 /100 WBC H WBC Morphology (test code = 487) Normal Platelet Morphology (test code = Normal 486) Anisocytosis (test code = 961) 1+ few Ovalocytes (test code = 477) 1+ few Lab Interpretation (test code = Abnormal 98754-2) [facility] W/PLT COUNT & AUTO [id number] 12:07:00 Test Item Value Reference Range Interpretation Comments WHITE BLOOD CELL COUNT (BEAKER) 11.3 K/ L 3.5-10.5 H (test code = 775) RED BLOOD CELL COUNT (BEAKER) 2.50 M/ L 4.63-6.08 L (test code = 761) HEMOGLOBIN (BEAKER) (test code = 8.1 GM/DL 13.7-17.5 L 410) HEMATOCRIT (BEAKER) (test code = 23.7 % 40.1-51.0 L 411) MEAN CORPUSCULAR VOLUME (BEAKER) 94.8 fL 79.0-92.2 H (test code = 753) MEAN CORPUSCULAR HEMOGLOBIN 32.4 pg 25.7-32.2 H (BEAKER) (test code = 751) MEAN CORPUSCULAR HEMOGLOBIN CONC 34.2 GM/DL 32.3-36.5 (BEAKER) (test code = 752) RED CELL DISTRIBUTION WIDTH 15.8 % 11.6-14.4 H (BEAKER) (test code = 412) PLATELET COUNT (BEAKER) (test code 71 K/CU MM 150-450 L = 756) MEAN PLATELET VOLUME (BEAKER) 10.4 fL 9.4-12.4 (test code = 754) NUCLEATED RED BLOOD CELLS (BEAKER) 1 /100 WBC 0-0 H (test code = 413) (MANUAL DIFFERENTIAL)2020-05-27 12:07:00 Test Item Value Reference Range Interpretation Comments NEUTROPHILS - REL (DIFF) (BEAKER) 63 % (test code = 1359) LYMPHOCYTES - REL (DIFF) (BEAKER) 17 % (test code = 1360) MONOCYTES - REL (DIFF) (BEAKER) 4 % (test code = 1361) EOSINOPHILS - REL (DIFF) (BEAKER) 3 % (test code = 1362) BASOPHILS - REL (DIFF) (BEAKER) 1 % (test code = 1363) METAMYELOCYTES-REL (DIFF) (BEAKER) 3 % 0-0 H (test code = 258) BANDS - REL (DIFF) (BEAKER) (test 3 % 0-10 code = 1348) ATYPICAL LYMPHOCYTE - REL (DIFF) 6 % 0-0 H (BEAKER) (test code = 260) NEUTROPHILS - ABS (DIFF) (BEAKER) 7.12 K/ L 1.80-8.00 (test code = 1365) LYMPHOCYTES - ABS (DIFF) (BEAKER) 1.92 K/ L 1.48-4.50 (test code = 1366) MONOCYTES - ABS (DIFF) (BEAKER) 0.45 K/ L 0.00-1.30 (test code = 1367) EOSINOPHILS - ABS (DIFF) (BEAKER) 0.34 K/ L 0.00-0.50 (test code = 1368) BASOPHILS - ABS (DIFF) (BEAKER) 0.11 K/ L 0.00-0.20 (test code = 1369) METAMYELOCTYES - ABS (DIFF) 0.34 K/ L 0.00-0.00 H (BEAKER) (test code = 261) BANDS-ABS (DIFF) (BEAKER) (test 0.3 K/ L 0.0-0.8 code = 1349) ATYPICAL LYMPHOCYTES - ABS (DIFF) 0.68 K/ L 0.00-0.00 H (BEAKER) (test code = 263) TOTAL COUNTED (BEAKER) (test code 100 = 1351) BANDS + SEGMENTED NEUTROPHILS 7.46 (BEAKER) (test code = 1352) MANUAL NRBC PER 100 CELLS (BEAKER) 1 /100 WBC 0-0 H (test code = 1353) WBC MORPHOLOGY (BEAKER) (test code Normal = 487) PLT MORPHOLOGY (BEAKER) (test code Normal = 486) ANISOCYTOSIS (BEAKER) (test code = 1+ few 961) OVALOCYTES (BEAKER) (test code = 1+ few 477) Basic Metabolic [id number] 04:27:00 Test Item Value Reference Range Interpretation Comments Sodium (test code = 136 meq/L 000-825 1810-2) Potassium (test code = 4.2 meq/L 3.5-5.1 2823-3) Chloride (test code = 97 meq/L 98-107 L 2075-0) CO2 (test code = 22 meq/L 22-29 2028-9) BUN (test code = 60 mg/dL 7-21 H 3094-0) Creatinine (test code 12.85 mg/dL 0.57-1.25 H = 2160-0) Glucose (test code = 93 mg/dL 70-105 2345-7) Calcium (test code = 8.7 mg/dL 8.4-10.2 95354-8) EGFR (test code = 4 mL/min/1.73 [place] [address]-4) NOT ACCURATE CREATININE CLEARANCE IN PREDICTING GLOMERULAR FILTRATION RATE . ESTIMATED GFR I S NOT APPLICABLE FOR DIALYSIS PATIENTS. FANTA (test code = FANTA) Associate Professor Of Kinesiology ID - BONILLA M Lab Interpretation Abnormal (test code = 17030-8) [facility] METABOLIC [id number] 04:27:00 Test Item Value Reference Range Interpretation Comments SODIUM (BEAKER) 136 meq/L 136-145 (test code = 381) POTASSIUM (BEAKER) 4.2 meq/L 3.5-5.1 (test code = 379) CHLORIDE (BEAKER) 97 meq/L 98-107 L (test code = 382) CO2 (BEAKER) (test 22 meq/L 22-29 code = 355) BLOOD UREA NITROGEN 60 mg/dL 7-21 H (BEAKER) (test code = 354) CREATININE (BEAKER) 12.85 mg/dL 0.57-1.25 H (test code = 358) GLUCOSE RANDOM 93 mg/dL 70-105 (BEAKER) (test code = 652) CALCIUM (BEAKER) 8.7 mg/dL 8.4-10.2 (test code = 697) EGFR (BEAKER) (test 4 mL/min/1.73 ESTIMAT ED GFR IS code = 1092) sq m NOT ACCURATE CREATININE CLEARANCE IN PREDICTING GLOMERULAR FILTRATION RATE . ESTIMATED GFR I S NOT APPLICABLE FOR DIALYSIS PATIEN TS. Associate Professor Of Kinesiology ID - BONILLA MHepatic function [id number] 04:25:00 Test Item Value Reference Range Interpretation Comments Protein, Total (test code 6.5 6.0- 8.3 gm/dL = 2885-2) Albumin (test code = 3.3 g/dL 3.5-5 L 24981-5) Total Bilirubin (test code 0.3 mg/dL 0.2-1.2 = 1974-2) Bilirubin, Direct (test 0.2 mg/dL 0.1-0.5 code = 1967-7) Alkaline Phosphatase (test 64 U/L 40-150 code = 6768-6) AST (test code = 1920-8) 23 U/L 5-34 ALT (test code = 1742-6) 7 U/L 6-55 FANTA (test code = FANTA) Associate Professor Of Kinesiology ID - BONILLA Lab Interpretation (test Abnormal code = 12398-9) [facility]2020-10-07 04:25:00 Test Item Value Reference Range Interpretation Comments Magnesium (test code = 2.0 mg/dL 1.6-2.6 05669-9) FANTA (test code = FANTA) Associate Professor Of Kinesiology ID - [facility] Lab Interpretation (test Normal code = 90869-4) [facility]2020-10-07 04:25:00 Test Item Value Reference Range Interpretation Comments MAGNESIUM (BEAKER) (test code = 2.0 mg/dL 1.6-2.6 627) Associate Professor Of Kinesiology ID - [facility] [id number] 04:25:00 Test Item Value Reference Range Interpretation Comments TOTAL PROTEIN (BEAKER) (test code = 6.5 gm/dL 6.0-8.3 770) ALBUMIN (BEAKER) (test code = 1145) 3.3 g/dL 3.5-5.0 L BILIRUBIN TOTAL (BEAKER) (test code 0.3 mg/dL 0.2-1.2 = 377) BILIRUBIN DIRECT (BEAKER) (test 0.2 mg/dL 0.1-0.5 code = 706) ALKALINE PHOSPHATASE (BEAKER) (test 64 U/L 40-150 code = 346) AST (SGOT) (BEAKER) (test code = 23 U/L 5-34 353) ALT (SGPT) (BEAKER) (test code = 7 U/L 6-55 347) Associate Professor Of Kinesiology ID - BONILLA [id number] 04:09:00 Test Item Value Reference Range Interpretation Comments Protime (test code = 14.2 11.9- 14.2 5902-2) seconds INR (test code = 1.13 <=5.90 6301-6) PTT (test code = 40.7 22.5- 36.0 H 47687-7) seconds FANTA (test code = FANTA) Effective 01/16/2019: PT Reference Range ChangeNew: 11.9-14.2 Previous: 11.7-14.7 RECOMMENDED COUMADIN/WARFARIN INR THERAPY RANGESSTANDARD DOSE: 2.0-3.0 Includes: PROPHYLAXIS for venous thrombosis, systemic embolization; TREATMENT for venous thrombosis and/or pulmonary embolus.HIGH RISK: Target INR is 2.5-3.5 for patients wiht mechanical heart valves. Lab Interpretation Abnormal (test code = 62892-3) [facility][id number] 04:09:00 Test Item Value Reference Range Interpretation Comments PROTIME (BEAKER) (test code = 14.2 seconds 11.9-14.2 759) INR (BEAKER) (test code = 370) 1.13 <=5.90 PARTIAL THROMBOPLASTIN TIME 40.7 seconds 22.5-36.0 H (BEAKER) (test code = 760) Effective 01/16/2019: PT Reference Range ChangeNew: 11.9-14.2 Previous: 11.7- 14.7RECOMMENDED COUMADIN/WARFARIN INR THERAPY RANGESSTANDARD DOSE: 2.0-3.0 Includes: PROPHYLAXIS for venous thrombosis, systemic embolization; TREATMENT for venous thrombosis and/or pulmonary embolus.HIGH RISK: Target INR is2.5-3.5 for patients wiht mechanical heart valves.Peripheral Blood Smear - Path Review 2020-05-26 14:31:00 Test Item Value Reference Range Interpretation Comments Pathologist Review Macrocytic anemia, (test code = 2640) moderate anisopoikilocytosis, with rare schistocytes (0.8 per HPF). WBCs with mild left shift, including occasional myeloid precursors, no blasts seen. Few hypersegmented neutrophils. Thrombocytopenia with unremarkable morphology. Pathologist: (test Maddie Leon code = 2849) Bebeto Dsouza [facility] - PATHOLOGIST REVIEW 2020-05-26 14:31:00 Test Item Value Reference Range Interpretation Comments PERIPHERAL SMR Macrocytic anemia, REVIEW (BEAKER) 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 WBCs with mild left shift, including occasional myeloid precursors, no blasts seen. Few hypersegmented neutrophils. Thrombocytopenia with unremarkable morphology. [id number] Maddie Leon 2 (BEAKER) (test Bebeto Dsouza code = 2849) [id number] 13:50:00 Test Item Value Reference Range Interpretation Comments D-Dimer, Quant (test code 4.65 <0.50 MG/L FEU H = 33607-8) FANTA (test code = FANTA) Intended Use: The D-Dimer Assay can be used to aid in the diagnosis of Deep Vein Thrombosis (DVT) and Pulmonary Embolism Disease (PED).In patients with low pre-test probability, various studies concerning STA Liatest D-dimer test have reported that with a cutoff value of 0.50 MG/L FEU, the Negative Predictive Value (NPV) regarding the exclusion of thrombosis is within 95-100% range. Lab Interpretation (test Abnormal code = 97058-7) [facility]-[id number] 13:50:00 Test Item Value Reference Range Interpretation Comments D-DIMER QUANTITATIVE (BEAKER) 4.65 MG/L FEU <0.50 H (test code = 671) Intended Use: The D-Dimer Assay can be used to aid in the diagnosis of Deep Vein Thrombosis (DVT) and Pulmonary Embolism Disease (PED).In patients with low pre- test probability, various studies concerning STA Liatest D-dimer test have reported that with a cutoff value of 0.50 MG/L FEU, the Negative Predictive Value (NPV) regarding the exclusion of thrombosis is within 95-100% range.Manual [id number] 07:48:00 Test Item Value Reference Range Interpretation Comments % Neutros (test code = 62 % 2816) % Lymphs (test code = 26 % 2817) % Monos (test code = 3 % 2818) % Eos (test code = 2819) 3 % % Metamyelo (test code = 3 % 0-0 H 2821) % Myelo (test code = 1 % 0-0 H 2822) % Bands (test code = 1 % 0-10 2826) % Atypical Lymphs (test 1 % 0-0 H code = 2829) # Neutros (test code = 6.14 K/ul 1.78-5.38 H 2830) # Lymphs (test code = 2.57 K/ul 1.32-3.57 2831) # Monos (test code = 0.30 K/uL 0.3-0.82 2832) # Eos (test code = 2834) 0.30 K/uL 0.04-0.54 # Metamyelo (test code = 0.30 K/uL 0-0 H 2836) # Myelo (test code = 0.10 K/uL 0-0 H 2837) # Bands (test code = 0.10 K/uL 0-0.8 2840) # Atypical Lymphs (test 0.10 K/uL 0-0 H code = 2858) Total Counted (test code 100 = 1351) nRBC (manual) (test code 1 0- 0 /100 WBC H = 1353) WBC Morphology (test Normal code = 487) Platelet Morphology Normal (test code = 486) Anisocytosis (test code 1+ few = 961) Microcytes (test code = 1+ few 965) Poikilocytes (test code 1+ few = 966) Ovalocytes (test code = 1+ few 477) Tear Drop Cells (test 1+ few code = 481) Artifact (test code = Present 3432) Platelet Conc (test code Decreased = 3438) FANTA (test code = FANTA) Associate Professor Of Kinesiology ID - Chris Mtz comments: Slide comments: Lab Interpretation (test Abnormal code = 46067-1) [facility] W/PLT COUNT & AUTO [id number] 07:48:00 Test Item Value Reference Range Interpretation Comments WHITE BLOOD CELL COUNT (BEAKER) 9.9 K/ L 3.5-10.5 (test code = 775) RED BLOOD CELL COUNT (BEAKER) 2.64 M/ L 4.63-6.08 L (test code = 761) HEMOGLOBIN (BEAKER) (test code = 8.4 GM/DL 13.7-17.5 L 410) HEMATOCRIT (BEAKER) (test code = 24.8 % 40.1-51.0 L 411) MEAN CORPUSCULAR VOLUME (BEAKER) 93.9 fL 79.0-92.2 H (test code = 753) MEAN CORPUSCULAR HEMOGLOBIN 31.8 pg 25.7-32.2 (BEAKER) (test code = 751) MEAN CORPUSCULAR HEMOGLOBIN CONC 33.9 GM/DL 32.3-36.5 (BEAKER) (test code = 752) RED CELL DISTRIBUTION WIDTH 16.6 % 11.6-14.4 H (BEAKER) (test code = 412) PLATELET COUNT (BEAKER) (test code 67 K/CU MM 150-450 L = 756) MEAN PLATELET VOLUME (BEAKER) 9.7 fL 9.4-12.4 (test code = 754) NUCLEATED RED BLOOD CELLS (BEAKER) 0 /100 WBC 0-0 (test code = 413) (CELLAVISION MANUAL DIFF)2020-05-26 07:48:00 Test Item Value Reference Range Interpretation Comments NEUTROPHILS - REL 62 % (CELLAVISION)(BEAKER) (test code = 2816) LYMPHOCYTES - REL 26 % (CELLAVISION)(BEAKER) (test code = 2817) MONOCYTES - REL 3 % (CELLAVISION)(BEAKER) (test code = 2818) EOSINOPHILS - REL 3 % (CELLAVISION)(BEAKER) (test code = 2819) METAMYELOCYTES - REL 3 % 0-0 H (CELLAVISION)(BEAKER) (test code = 2821) MYELOCYTES - REL 1 % 0-0 H (CELLAVISION)(BEAKER) (test code = 2822) BANDS - REL (CELLAVISION)(BEAKER) 1 % 0-10 (test code = 2826) ATYPICAL LYMPHOCYTES - REL 1 % 0-0 H (CELLAVISION)(BEAKER) (test code = 2829) NEUTROPHILS - ABS 6.14 K/ul 1.78-5.38 H (CELLAVISION)(BEAKER) (test code = 2830) LYMPHOCYTES - ABS 2.57 K/ul 1.32-3.57 (CELLAVISION)(BEAKER) (test code = 2831) MONOCYTES - ABS 0.30 K/uL 0.30-0.82 (CELLAVISION)(BEAKER) (test code = 2832) EOSINOPHILS - ABS 0.30 K/uL 0.04-0.54 (CELLAVISION)(BEAKER) (test code = 2834) METAMYELOCYTES - ABS 0.30 K/uL 0.00-0.00 H (CELLAVISION)(BEAKER) (test code = 2836) MYELOCYTES-ABS 0.10 K/uL 0.00-0.00 H (CELLAVISION)(BEAKER) (test code = 2837) BANDS - ABS (CELLAVISION)(BEAKER) 0.10 K/uL 0.00-0.80 (test code = 2840) ATYPICAL LYMPHOCYTES - ABS 0.10 K/uL 0.00-0.00 H (CELLAVISION)(BEAKER) (test code = 2858) TOTAL COUNTED (BEAKER) (test code 100 = 1351) MANUAL NRBC PER 100 CELLS (BEAKER) 1 /100 WBC 0-0 H (test code = 1353) WBC MORPHOLOGY (BEAKER) (test code Normal = 487) PLT MORPHOLOGY (BEAKER) (test code Normal = 486) ANISOCYTOSIS (BEAKER) (test code = 1+ few 961) MICROCYTES (BEAKER) (test code = 1+ few 965) POIKILOCYTES (BEAKER) (test code = 1+ few 966) OVALOCYTES (BEAKER) (test code = 1+ few 477) TEAR DROP CELLS (BEAKER) (test 1+ few code = 481) ARTIFACT (CELLAVISION)(BEAKER) Present (test code = 3432) PLATELET CONCENTRATION Decreased (CELLAVISION)(BEAKER) (test code = 3438) Associate Professor Of Kinesiology ID - Chris Mtz comments: Slide comments:Comprehensive metabolic [id number] 05:43:00 Test Item Value Reference Range Interpretation Comments Protein, Total (test 6.6 6.0- 8.3 gm/dL code = 2885-2) Albumin (test code = 3.3 g/dL 3.5-5 L 12564-5) Alkaline Phosphatase 62 U/L 40-150 (test code = 6768-6) Total Bilirubin (test 0.4 mg/dL 0.2-1.2 code = 1974-2) Sodium (test code = 139 meq/L 898-223 1515-2) Potassium (test code = 4.1 meq/L 3.5-5.1 2823-3) Chloride (test code = 100 meq/L 98-107 2075-0) CO2 (test code = 22 meq/L 22-29 2028-9) BUN (test code = 51 mg/dL 7-21 H 3094-0) Creatinine (test code 10.29 mg/dL 0.57-1.25 H = 2160-0) Glucose (test code = 98 mg/dL 70-105 2345-7) Calcium (test code = 8.6 mg/dL 8.4-10.2 34704-0) AST (test code = 20 U/L 5-34 1920-8) ALT (test code = 6 U/L 6-55 1742-6) EGFR (test code = 5 mL/min/1.73 [place] [address]-1) NOT ACCURATE CREATININE CLEARANCE IN PREDICTING GLOMERULAR FILTRATION RATE . ESTIMATED GFR I S NOT APPLICABLE FOR DIALYSIS PATIENTS. FANTA (test code = FANTA) Associate Professor Of Kinesiology ID - MARQUIS Lab Interpretation Abnormal (test code = 20839-5) [facility] [id number] 05:43:00 Test Item Value Reference Range Interpretation Comments TOTAL PROTEIN 6.6 gm/dL 6.0-8.3 (BEAKER) (test code = 770) ALBUMIN (BEAKER) 3.3 g/dL 3.5-5.0 L (test code = 1145) ALKALINE PHOSPHATASE 62 U/L 40-150 (BEAKER) (test code = 346) BILIRUBIN TOTAL 0.4 mg/dL 0.2-1.2 (BEAKER) (test code = 377) SODIUM (BEAKER) (test 139 meq/L 136-145 code = 381) POTASSIUM (BEAKER) 4.1 meq/L 3.5-5.1 (test code = 379) CHLORIDE (BEAKER) 100 meq/L 98-107 (test code = 382) CO2 (BEAKER) (test 22 meq/L 22-29 code = 355) BLOOD UREA NITROGEN 51 mg/dL 7-21 H (BEAKER) (test code = 354) CREATININE (BEAKER) 10.29 mg/dL 0.57-1.25 H (test code = 358) GLUCOSE RANDOM 98 mg/dL 70-105 (BEAKER) (test code = 652) CALCIUM (BEAKER) 8.6 mg/dL 8.4-10.2 (test code = 697) AST (SGOT) (BEAKER) 20 U/L 5-34 (test code = 353) ALT (SGPT) (BEAKER) 6 U/L 6-55 (test code = 347) EGFR (BEAKER) (test 5 mL/min/1.73 ESTIMAT ED GFR IS code = 1092) sq m NOT ACCURATE CREATININE CLEARANCE IN PREDICTING GLOMERULAR FILTRATION RATE . ESTIMATED GFR I S NOT APPLICABLE FOR DIALYSIS PATIEN TS. Associate Professor Of Kinesiology ID - EDASIVET[facility] METABOLIC [id number] 05:38:00 Test Item Value Reference Range Interpretation Comments SODIUM (BEAKER) 139 meq/L 136-145 (test code = 381) POTASSIUM (BEAKER) 4.1 meq/L 3.5-5.1 (test code = 379) CHLORIDE (BEAKER) 100 meq/L 98-107 (test code = 382) CO2 (BEAKER) (test 22 meq/L 22-29 code = 355) BLOOD UREA NITROGEN 51 mg/dL 7-21 H (BEAKER) (test code = 354) CREATININE (BEAKER) 10.29 mg/dL 0.57-1.25 H (test code = 358) GLUCOSE RANDOM 98 mg/dL 70-105 (BEAKER) (test code = 652) CALCIUM (BEAKER) 8.6 mg/dL 8.4-10.2 (test code = 697) EGFR (BEAKER) (test 5 mL/min/1.73 ESTIMAT ED GFR IS code = 1092) sq m NOT ACCURATE CREATININE CLEARANCE IN PREDICTING GLOMERULAR FILTRATION RATE . ESTIMATED GFR I S NOT APPLICABLE FOR DIALYSIS PATIEN TS. [id number] 05:34:00 Test Item Value Reference Range Interpretation Comments Phosphorus (test code = 7.6 mg/dL 2.3-4.7 H 2777-1) FANTA (test code = FANTA) Associate Professor Of Kinesiology ID - EDASI Lab Interpretation (test Abnormal code = 61677-1) [facility]2020-[facility]-06 05:34:00 Test Item Value Reference Range Interpretation Comments PHOSPHORUS (BEAKER) (test code = 7.6 mg/dL 2.3-4.7 H 604) Associate Professor Of Kinesiology ID - [id number] 05:34:00 Test Item Value Reference Range Interpretation Comments MAGNESIUM (BEAKER) (test code = 2.0 mg/dL 1.6-2.6 627) Associate Professor Of Kinesiology ID - EDASIHEPATIC FUNCTION [id number] 05:34:00 Test Item Value Reference Range Interpretation Comments TOTAL PROTEIN (BEAKER) (test code = 6.6 gm/dL 6.0-8.3 770) ALBUMIN (BEAKER) (test code = 1145) 3.3 g/dL 3.5-5.0 L BILIRUBIN TOTAL (BEAKER) (test code 0.4 mg/dL 0.2-1.2 = 377) BILIRUBIN DIRECT (BEAKER) (test 0.2 mg/dL 0.1-0.5 code = 706) ALKALINE PHOSPHATASE (BEAKER) (test 62 U/L 40-150 code = 346) AST (SGOT) (BEAKER) (test code = 20 U/L 5-34 353) ALT (SGPT) (BEAKER) (test code = 6 U/L 6-55 347) Associate Professor Of Kinesiology ID - [id number]/[id number] 04:50:00 Test Item Value Reference Range Interpretation Comments PROTIME (BEAKER) (test code = 14.1 seconds 11.9-14.2 759) INR (BEAKER) (test code = 370) 1.12 <=5.90 PARTIAL THROMBOPLASTIN TIME 42.4 seconds 22.5-36.0 H (BEAKER) (test code = 760) Effective 01/16/2019: PT Reference Range ChangeNew: 11.9-14.2 Previous: 11.7- 14.7RECOMMENDED COUMADIN/WARFARIN INR THERAPY RANGESSTANDARD DOSE: 2.0-3.0 Includes: PROPHYLAXIS for venous thrombosis, systemic embolization; TREATMENT for venous thrombosis and/or pulmonary embolus.HIGH RISK: Target INR is2.5-3.5 for patients wiht mechanical heart valves.Calcium, [id number] 03:59:00 Test Item Value Reference Range Interpretation Comments Calcium, Ion (test code = 1993-) 1.08 mmol/L 1.12-1.27 L pH, Blood (test code = 43881-9) 7.49 Lab Interpretation (test code = Abnormal 76538-4) [facility] HospitalCALCIUM, [id number] 03:59:00 Test Item Value Reference Range Interpretation Comments CALCIUM IONIZED (BEAKER) (test 1.08 mmol/L 1.12-1.27 L code = 698) PH, BLOOD (BEAKER) (test code = 7.49 1810) Prepare Leuko-Red [id number] 23:54:00 Test Item Value Reference Range Interpretation Comments CROSSMATCH (test code = 2264) COMPATIBLE Unit ABO (test code = O Pos 3801971) UNIT NUMBER (test code = [id number] 934-0) Status (test code = 7979580) TX_TIMEINCHART Blood Bank Product (test code RED BLOOD CELLS = 2263) PRODUCT CODE (test code = J6577E95 933-2) [facility] HospitalTSH/Free T4 If [id number] 20:19:00 Test Item Value Reference Range Interpretation Comments TSH (test code = 3.581 0.350- 4.940 uIU/mL 65313-8) FANTA (test code = FANTA) Associate Professor Of Kinesiology ID - JR F Lab Interpretation (test Normal code = 12795-4) [facility] HospitalTSH/FREE T4 IF [id number] 20:19:00 Test Item Value Reference Range Interpretation Comments THYROID STIMULATING HORMONE 3.581 uIU/mL 0.350-4.940 (BEAKER) (test code = 772) Associate Professor Of Kinesiology ID - CAROLINA FHemoglobin and [id number] 19:42:00 Test Item Value Reference Range Interpretation Comments Hemoglobin (test code = 9.0 13.7- 17.5 GM/DL L 786-4) Hematocrit (test code = 26.7 % 40.1-51 L 4544-3) FANTA (test code = FANTA) Associate Professor Of Kinesiology ID - [id number] Lab Interpretation (test Abnormal code = 23515-5) [facility] HospitalHEMOGLOBIN AND [id number] 19:42:00 Test Item Value Reference Range Interpretation Comments HEMOGLOBIN (BEAKER) (test code = 9.0 GM/DL 13.7-17.5 L 410) HEMATOCRIT (BEAKER) (test code = 26.7 % 40.1-51.0 L 411) Associate Professor Of Kinesiology ID - [id number] W/PLT COUNT & AUTO [id number] 14:10:00 Test Item Value Reference Range Interpretation Comments WHITE BLOOD CELL COUNT (BEAKER) 10.0 K/ L 3.5-10.5 (test code = 775) RED BLOOD CELL COUNT (BEAKER) 2.86 M/ L 4.63-6.08 L (test code = 761) HEMOGLOBIN (BEAKER) (test code = 9.1 GM/DL 13.7-17.5 L 410) HEMATOCRIT (BEAKER) (test code = 27.3 % 40.1-51.0 L 411) MEAN CORPUSCULAR VOLUME (BEAKER) 95.5 fL 79.0-92.2 H (test code = 753) MEAN CORPUSCULAR HEMOGLOBIN 31.8 pg 25.7-32.2 (BEAKER) (test code = 751) MEAN CORPUSCULAR HEMOGLOBIN CONC 33.3 GM/DL 32.3-36.5 (BEAKER) (test code = 752) RED CELL DISTRIBUTION WIDTH 17.2 % 11.6-14.4 H (BEAKER) (test code = 412) PLATELET COUNT (BEAKER) (test code 75 K/CU MM 150-450 L = 756) MEAN PLATELET VOLUME (BEAKER) 9.5 fL 9.4-12.4 (test code = 754) NUCLEATED RED BLOOD CELLS (BEAKER) 0 /100 WBC 0-0 (test code = 413) NEUTROPHILS RELATIVE PERCENT 62 % (BEAKER) (test code = 429) LYMPHOCYTES RELATIVE PERCENT 22 % (BEAKER) (test code = 430) MONOCYTES RELATIVE PERCENT 9 % (BEAKER) (test code = 431) EOSINOPHILS RELATIVE PERCENT 2 % (BEAKER) (test code = 432) BASOPHILS RELATIVE PERCENT 0 % (BEAKER) (test code = 437) NEUTROPHILS ABSOLUTE COUNT 6.17 K/ L 1.78-5.38 H (BEAKER) (test code = 670) LYMPHOCYTES ABSOLUTE COUNT 2.22 K/ L 1.32-3.57 (BEAKER) (test code = 414) MONOCYTES ABSOLUTE COUNT (BEAKER) 0.85 K/ L 0.30-0.82 H (test code = 415) EOSINOPHILS ABSOLUTE COUNT 0.17 K/ L 0.04-0.54 (BEAKER) (test code = 416) BASOPHILS ABSOLUTE COUNT (BEAKER) 0.04 K/ L 0.01-0.08 (test code = 417) IMMATURE GRANULOCYTES-RELATIVE 5 % 0-1 H PERCENT (BEAKER) (test code = 2801) [id number] 12:23:00 Test Item Value Reference Range Interpretation Comments D-DIMER QUANTITATIVE (BEAKER) 19.14 MG/L FEU <0.50 H (test code = 671) Intended Use: The D-Dimer Assay can be used to aid in the diagnosis of Deep Vein Thrombosis (DVT) and Pulmonary Embolism Disease (PED).In patients with low pre- test probability, various studies concerning STA Liatest D-dimer test have reported that with a cutoff value of 0.50 MG/L FEU, the Negative Predictive Value (NPV) regarding the exclusion of thrombosis is within 95-100% range. Lactate dehydrogenase (LDH)2020-05-25 12:15:00 Test Item Value Reference Range Interpretation Comments LDH (test code = 2532-0) 341 U/L 125-220 H FANTA (test code = FANTA) Associate Professor Of Kinesiology EVELYNE NORRIS F Lab Interpretation (test Abnormal code = 79121-1) [facility] HospitalLACTATE DEHYDROGENASE (LDH)2020-05-25 12:15:00 Test Item Value Reference Range Interpretation Comments LACTATE DEHYDROGENASE (BEAKER) (test 341 U/L 125-220 H code = 635) Associate Professor Of Kinesiology EVELYNE NORRIS FProthrombin time/[id number] 12:13:00 Test Item Value Reference Range Interpretation Comments Protime (test code = 14.6 11.9- 14.2 H 5902-2) seconds INR (test code = 1.17 <=5.90 6301-6) FANTA (test code = FANTA) Effective 01/16/2019: PT Reference Range ChangeNew: 11.9-14.2 Previous: 11.7-14.7 RECOMMENDED COUMADIN/WARFARIN INR THERAPY RANGESSTANDARD DOSE: 2.0-3.0 Includes: PROPHYLAXIS for venous thrombosis, systemic embolization; TREATMENT for venous thrombosis and/or pulmonary embolus.HIGH RISK: Target INR is 2.5-3.5 for patients wiht mechanical heart valves. Lab Interpretation Abnormal (test code = 49333-4) [facility] HospitalPROTHROMBIN TIME/[id number] 12:13:00 Test Item Value Reference Range Interpretation Comments PROTIME (BEAKER) (test code = 14.6 seconds 11.9-14.2 H 759) INR (BEAKER) (test code = 370) 1.17 <=5.90 Effective 01/16/2019: PT Reference Range ChangeNew: 11.9-14.2 Previous: 11.7- 14.7RECOMMENDED COUMADIN/WARFARIN INR THERAPY RANGESSTANDARD DOSE: 2.0-3.0 Includes: PROPHYLAXIS for venous thrombosis, systemic embolization; TREATMENT for venous thrombosis and/or pulmonary embolus.HIGH RISK: Target INR is2.5-3.5 for patients wiht mechanical heart valves.HEMOGLOBIN AND [id number] 12:01:00 Test Item Value Reference Range Interpretation Comments HEMOGLOBIN (BEAKER) (test code = 9.0 GM/DL 13.7-17.5 L 410) HEMATOCRIT (BEAKER) (test code = 27.0 % 40.1-51.0 L 411) Associate Professor Of Kinesiology ID - [id number] 11:50:00 Test Item Value Reference Range Interpretation Comments Haptoglobin (test code = 172 mg/dL 14-258 4542-7) FANTA (test code = FANTA) Associate Professor Of Kinesiology ID - JR F Lab Interpretation (test Normal code = 33595-9) [facility] HospitalHAPTOGLOBIN2020-10-05 11:50:00 Test Item Value Reference Range Interpretation Comments HAPTOGLOBIN (ENRIQUE) (test code = 172 mg/dL 18-117 640) Associate Professor Of Kinesiology ID - JR Bragg Echo W/Doppler(CW/PW/Color)2020-05-25 10:53:54 Ejection FractionSLEH ECHO HEARTLAB MKCKESSON CPACSInterface, External Ris In - 05/25/2020 10:54 AM CDTTransthoracic Echocardiography Report (TTE) Demographics Patient Name THIERRY PADILLA Date ofStudy 05/24/2020 KYLIE Gender Male Visit Number [id number] Race Unknown Room Number 7217 Number Date of 1965 Referring Physician Age55 year(s) 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 Normal left ventricular chamber size. No apparent segmental wall motion abnormalities. Estim ated LVEF by qualitative assessment is increased (>60%) . Grade 1 diastolic dysfunction (impaired relaxation and low-normal LA pressure). Unable to estimate peak systolic PA pressure; inadequate TR velocity signal. Signature Findings Left Ventricle Normal left ventricular chamber size. Normal wall thickness. Normal overall left ventricular systolic function. No apparent segmental wall motion a bnormalities. Estimated LVEF by qualitative assessment is increased (>60%). Grade 1 diastolic dysfunction (impaired relaxation and low-normal LA pressure). Left Atrium LA size is normal . Right Ventricle Normal right ventricle structure and function. Right Atrium Normal right atrium. Aortic Valve Normal AoV structure and function. Mitral Valve Normal MV structure and function. Tricuspid Valve A trace of tricuspid regurgitation. Unable to estimate peak systolic PA pressure; inadequate TR velocity signal. Pulmonic Valve Normal PV structure and function by limited views and Doppler. Aorta Aortic root size (SInus of Valsalva diameter) is normal . Pericardium No evidence of pericardial effusion. IVC/SVC/PA/PV/Pleural The estimated RA pressure by IVC dynamics 0- 5mmHg . Chambers/Structures Left Atrium LA Volume: 53.18 ml LA Area: 19.74 cm^2 LA Vol. Index: 30 ml/m^2 Left Ventricle LVIDd: 4.76 cm LVEDV:105.61 ml LV Septum Diastolic: 0.88 cm LV PW Diastolic: 0.89 cm LVOT Diameter: 2.01 cm Right Ventricle RVOT VTI: 23.09 cm Doppler/Quantitative Measurements Mitral Valve MV Peak E-Wave: 0.69 m/s MV Peak A-Wave: 0.94 m/s E/A Ratio:0.74 Peak Gradient: 1.93 mmHg D eceleration Time: 100.8 msec MV Antonio. Peak: Aortic Valve Peak Velocity: 1.27 m/s Mean Velocity: 0.78 m/s Peak Gradient: 6.42 mmHg Mean Gradient: 2.87 mmHg AV Area (continuity): 3.07 cm^2 AV VTI: 19.8 cm AV DVI: 0.97 LVOT Peak Velocity: 1.26 m/s Peak Gradient: 6.34 mmHg Mean Velocity: 0.63 m/s Mean Gradient: 2.09 mmHg LVOT Diameter: 2.01 cm LVOT VTI: 19.15 cm LVOT Area: 3.17 cm^2 LVOT SV:60.73 ml LVOT CO: 5.41 l/min LVOT CI: 3.06 l/min/m^2[facility] HospitalU/[facility], TESTICULAR (SCROTUM)2020-05-25 08:58:00Reason for exam:->rule out torsionFINAL REPORT TECHNIQUE: Grayscale, color Doppler, and spectral Doppler ultrasound of the scrotum and testicles. INDICATION: rule out torsion. COMPARISON: None. FINDINGS: RIGHT TE STIS: Measures 4.2 x 1.9 x 2.2 cm. Normal echotexture without focal lesions. LEFT TESTIS: Measures 4.1 x 2.1 x 2.2 cm. Normal echotexture without focal lesions. VASCULAR: There are symmetric, arterial waveforms detected in both testes. No varicocele. EPIDIDYMIDES: Unremarkable. SCROTUM: No hydrocele. IMPRESSION: This is a normal scrotal ultrasound. Specifically, no testicular torsion. Signed: Kwasi Verde Verified Date/Time: 05/25/2020 08:58:57 US testicular (scrotum)2020-05-25 08:58:00Interface, External Ris In - 05/25/2020 9:01 AM CDTFINAL REPORT TECHNIQUE: Grayscale, color Doppler, and spectral Doppler ultrasound of the scrotum and testicles. INDICATION: rule out torsion. COMPARISON: None. FINDINGS: RIGHT TESTIS: Measures 4.2 x 1.9 x 2.2 cm. Normal echotexture without focal lesions. LEFT TESTIS: Measures 4.1 x 2.1 x 2.2 cm. Normal echotexture without focal lesions. VASCULAR: There are symmetric, arterial waveforms detected in both testes. No varicocele.EPIDIDYMIDES: Unremarkable. SCROTUM: No hydrocele. IMPRESSION: This is a normal scrotal ultrasound.Specifically, no testicular torsion. Signed: Kwasi Verde Verified Date/Time: 05/25/2020 08:58:57 [facility] 08[facility]16[facility]00 Test Item Value Reference Range Interpretation Comments Ferritin (test code = 99788.32 ng/mL 5-275 H 2276-4) FANTA (test code = FANTA) Associate Professor Of Kinesiology ID - EDASI Lab Interpretation (test Abnormal code = 01578-0) [facility] HospitalFERRITIN2020-10-05 08:16:00 Test Item Value Reference Range Interpretation Comments FERRITIN (BEAKER) (test code = 81975.32 ng/mL 5.00-275.00 H 361) Associate Professor Of Kinesiology ID - EDASICBC W/PLT COUNT & AUTO [id number] 08:02:00 Test Item Value Reference Range Interpretation Comments WHITE BLOOD CELL COUNT (BEAKER) 9.6 K/ L 3.5-10.5 (test code = 775) RED BLOOD CELL COUNT (BEAKER) 2.50 M/ L 4.63-6.08 L (test code = 761) HEMOGLOBIN (BEAKER) (test code = 7.9 GM/DL 13.7-17.5 L 410) HEMATOCRIT (BEAKER) (test code = 23.7 % 40.1-51.0 L 411) MEAN CORPUSCULAR VOLUME (BEAKER) 94.8 fL 79.0-92.2 H (test code = 753) MEAN CORPUSCULAR HEMOGLOBIN 31.6 pg 25.7-32.2 (BEAKER) (test code = 751) MEAN CORPUSCULAR HEMOGLOBIN CONC 33.3 GM/DL 32.3-36.5 (BEAKER) (test code = 752) RED CELL DISTRIBUTION WIDTH 17.0 % 11.6-14.4 H (BEAKER) (test code = 412) PLATELET COUNT (BEAKER) (test code 58 K/CU MM 150-450 L = 756) MEAN PLATELET VOLUME (BEAKER) 10.3 fL 9.4-12.4 (test code = 754) NUCLEATED RED BLOOD CELLS (BEAKER) 0 /100 WBC 0-0 (test code = 413) (CELLAVISION MANUAL DIFF)2020-05-25 08:02:00 Test Item Value Reference Range Interpretation Comments NEUTROPHILS - REL 59 % (CELLAVISION)(BEAKER) (test code = 2816) LYMPHOCYTES - REL 29 % (CELLAVISION)(BEAKER) (test code = 2817) MONOCYTES - REL 7 % (CELLAVISION)(BEAKER) (test code = 2818) EOSINOPHILS - REL 1 % (CELLAVISION)(BEAKER) (test code = 2819) BASOPHILS - REL 1 % (CELLAVISION)(BEAKER) (test code = 2820) METAMYELOCYTES - REL 2 % 0-0 H (CELLAVISION)(BEAKER) (test code = 2821) ATYPICAL LYMPHOCYTES - REL 1 % 0-0 H (CELLAVISION)(BEAKER) (test code = 2829) NEUTROPHILS - ABS 5.66 K/ul 1.78-5.38 H (CELLAVISION)(BEAKER) (test code = 2830) LYMPHOCYTES - ABS 2.78 K/ul 1.32-3.57 (CELLAVISION)(BEAKER) (test code = 2831) MONOCYTES - ABS 0.67 K/uL 0.30-0.82 (CELLAVISION)(BEAKER) (test code = 2832) EOSINOPHILS - ABS 0.10 K/uL 0.04-0.54 (CELLAVISION)(BEAKER) (test code = 2834) BASOPHILS - ABS 0.10 K/uL 0.01-0.08 H (CELLAVISION)(BEAKER) (test code = 2835) METAMYELOCYTES - ABS 0.19 K/uL 0.00-0.00 H (CELLAVISION)(BEAKER) (test code = 2836) ATYPICAL LYMPHOCYTES - ABS 0.10 K/uL 0.00-0.00 H (CELLAVISION)(BEAKER) (test code = 2858) TOTAL COUNTED (BEAKER) (test code 100 = 1351) MANUAL NRBC PER 100 CELLS 1 /100 WBC 0-0 H (BEAKER) (test code = 1353) WBC MORPHOLOGY (BEAKER) (test Normal code = 487) PLT MORPHOLOGY (BEAKER) (test Normal code = 486) ANISOCYTOSIS (BEAKER) (test code 2+ moderate = 961) MICROCYTES (BEAKER) (test code = 2+ moderate 965) POIKILOCYTES (BEAKER) (test code 1+ few = 966) ELLIPTOCYTES (BEAKER) (test code 1+ few = 962) OVALOCYTES (BEAKER) (test code = 1+ few 477) ACANTHOCYTES (BEAKER) (test code 1+ few = 471) DAVIS-JOLLY BODIES (BEAKER) 1+ few (test code = 475) ARTIFACT (CELLAVISION)(BEAKER) Present (test code = 3432) PLATELET CONCENTRATION Decreased (CELLAVISION)(BEAKER) (test code = 3438) Associate Professor Of Kinesiology ID - Jonna Pascual comments: Slide comments:RAD, CHEST, 1 VIEW, NON [id number] 04:42:00Reason for exam:->pulmonary edemaShould this be performed at the bedside?->YesFINAL REPORT RAD, CHEST, 1 VIEW, NON DEPT INDICATION: pulmonary edema COMPARISON: Prior day's exam FINDINGS: Portable frontal view of the chest. IMPRESSION: Support Lines: Stab le. Lungs and pleura: Unchanged venous congestion and interstitial opacities. No consolidation or effusion. No pneumothorax.Heart and mediastinum: Stable contours.Additional findings: None. Signed: Sally Renae Verified Date/Time: 05/25/2020 04:42:11 XR chest 1 view portable / [id number] 04:42:00 Interface, External Ris In - 05/25/2020 4:44 AM CDTFINAL REPORT RAD, CHEST, 1 VIEW, NON DEPT INDICATION: pulmonary edema COMPARISON: Prior day's exam FINDINGS: Portable frontal view of the chest. IMPRESSION: Support Lines: Stable. Lungs and pleura: Unchanged venous congestion and interstitial opacities. No consolidation or effusion. No pneumothorax.Heart and mediastinum: Stable contours.Additional findings: None. Signed: Sally Renae Verified Date/Time: 05/25/2020 04:42:11 Robert [facility], TIBC, % sat. (without ferritin)2020-05-25 04:31:00 Test Item Value Reference Range Interpretation Comments Iron (test code = 2498-4) 118.0 ug/dL 40-160 TIBC (test code = 2500-7) 170 ug/dL 250-450 L Iron % Saturation (test 69 % 20-55 H code = 2502-3) FANTA (test code = FANTA) Associate Professor Of Kinesiology ID - EDASI Lab Interpretation (test Abnormal code = 02646-9) [facility], TIBC, % SAT. (WITHOUT FERRITIN)2020-05-25 04:31:00 Test Item Value Reference Range Interpretation Comments IRON (BEAKER) (test code = 547) 118.0 ug/dL 40.0-160.0 TOTAL IRON BINDING CAPACITY 170 ug/dL 250-450 L (BEAKER) (test code = 769) IRON % SATURATION (2) (BEAKER) 69 % 20-55 H (test code = 2590) Associate Professor Of Kinesiology ID - EDASITroponin [id number] 04:23:00 Test Item Value Reference Range Interpretation Comments Troponin I (test code = 0.46 ng/mL 0-0.03 15099-9) FANTA (test code = FANTA) Troponin I (TnI) levels must be interpreted in the context of the presenting symptoms and the clinical findings. Elevated TnI levels indicate myocardial damage, but are not specific for ischemic heart disease. Elevated TnI levels are seen in patients with other cardiac conditions (including myocarditis and congestive heart failure), and slight TnI elevations occur in patients with other conditions, including sepsis, renal failure, acidosis, acute neurological disease, and persistent tachyarrhythmia.Opera tor ID - DB Lab Interpretation (test Abnormal code = 24947-8) [facility] [id number] 04:23:00 Test Item Value Reference Range Interpretation Comments TROPONIN I (BEAKER) (test code = 0.46 ng/mL 0.00-0.03 HH 397) Troponin I (TnI) levels must be interpreted in the context of the presenting symptoms and the clinical findings. Elevated TnI levels indicate myocardial damage, but are not specific for ischemic heart disease. Elevated TnI levels are seen in patients with other cardiac conditions (including myocarditis and congestive heart failure), and slight TnI elevations occur in patients with other conditions, including sepsis, renal failure, acidosis, acute neurological disease, and persistent tachyarrhythmia.Associate Professor Of Kinesiology ID - [id number] 04:20:00 Test Item Value Reference Range Interpretation Comments PHOSPHORUS (BEAKER) (test code = 10.5 mg/dL 2.3-4.7 604) Associate Professor Of Kinesiology ID - DBCOMPREHENSIVE METABOLIC [id number] 04:19:00 Test Item Value Reference Range Interpretation Comments TOTAL PROTEIN 6.3 gm/dL 6.0-8.3 (BEAKER) (test code = 770) ALBUMIN (BEAKER) 3.2 g/dL 3.5-5.0 L (test code = 1145) ALKALINE PHOSPHATASE 62 U/L 40-150 (BEAKER) (test code = 346) BILIRUBIN TOTAL 0.4 mg/dL 0.2-1.2 (BEAKER) (test code = 377) SODIUM (BEAKER) (test 135 meq/L 136-145 L code = 381) POTASSIUM (BEAKER) 4.7 meq/L 3.5-5.1 (test code = 379) CHLORIDE (BEAKER) 98 meq/L 98-107 (test code = 382) CO2 (BEAKER) (test 18 meq/L 22-29 L code = 355) BLOOD UREA NITROGEN 108 mg/dL 7-21 H (BEAKER) (test code = 354) CREATININE (BEAKER) 16.61 mg/dL 0.57-1.25 H (test code = 358) GLUCOSE RANDOM 95 mg/dL 70-105 (BEAKER) (test code = 652) CALCIUM (BEAKER) 8.0 mg/dL 8.4-10.2 L (test code = 697) AST (SGOT) (BEAKER) 15 U/L 5-34 (test code = 353) ALT (SGPT) (BEAKER) 9 U/L 6-55 (test code = 347) EGFR (BEAKER) (test 3 mL/min/1.73 ESTIMAT ED GFR IS code = 1092) sq m NOT ACCURATE CREATININE CLEARANCE IN PREDICTING GLOMERULAR FILTRATION RATE . ESTIMATED GFR I S NOT APPLICABLE FOR DIALYSIS PATIEN TS. Associate Professor Of Kinesiology ID - [id number] 04:11:00 Test Item Value Reference Range Interpretation Comments MAGNESIUM (BEAKER) (test code = 2.0 mg/dL 1.6-2.6 627) Associate Professor Of Kinesiology ID - DBHEPATIC FUNCTION [id number] 04:11:00 Test Item Value Reference Range Interpretation Comments TOTAL PROTEIN (BEAKER) (test code = 6.3 gm/dL 6.0-8.3 770) ALBUMIN (BEAKER) (test code = 1145) 3.2 g/dL 3.5-5.0 L BILIRUBIN TOTAL (BEAKER) (test code 0.4 mg/dL 0.2-1.2 = 377) BILIRUBIN DIRECT (BEAKER) (test 0.2 mg/dL 0.1-0.5 code = 706) ALKALINE PHOSPHATASE (BEAKER) (test 62 U/L 40-150 code = 346) AST (SGOT) (BEAKER) (test code = 15 U/L 5-34 353) ALT (SGPT) (BEAKER) (test code = 9 U/L 6-55 347) Associate Professor Of Kinesiology ID - DBPT/[id number] 04:11:00 Test Item Value Reference Range Interpretation Comments PROTIME (BEAKER) (test code = 15.5 seconds 11.9-14.2 H 759) INR (BEAKER) (test code = 370) 1.26 <=5.90 PARTIAL THROMBOPLASTIN TIME 43.2 seconds 22.5-36.0 H (BEAKER) (test code = 760) Effective 01/16/2019: PT Reference Range ChangeNew: 11.9-14.2 Previous: 11.7- 14.7RECOMMENDED COUMADIN/WARFARIN INR THERAPY RANGESSTANDARD DOSE: 2.0-3.0 Includes: PROPHYLAXIS for venous thrombosis, systemic embolization; TREATMENT for venous thrombosis and/or pulmonary embolus.HIGH RISK: Target INR is2.5-3.5 for patients wiht mechanical heart valves.Reticulocyte [id number] 04:06:00 Test Item Value Reference Range Interpretation Comments % Retic (test code = 1.5 % 0.5-1.8 86958-7) FANTA (test code = FANTA) Associate Professor Of Kinesiology ID - [id number] Lab Interpretation (test Normal code = 77590-0) [facility] [id number] 04:06:00 Test Item Value Reference Range Interpretation Comments RETICULOCYTE COUNT PCT (BEAKER) (test 1.5 % 0.5-1.8 code = 575) Associate Professor Of Kinesiology ID - 6000Lactic acid, [id number] 04:05:00 Test Item Value Reference Range Interpretation Comments Lactate, Venous (test code = 0.42 mmol/L 0.5-2.2 L 2872) FANTA (test code = FANTA) Associate Professor Of Kinesiology ID - DB Lab Interpretation (test Abnormal code = 99313-1) [facility], [id number] 04:05:00 Test Item Value Reference Range Interpretation Comments LACTATE BLOOD VENOUS (2) (BEAKER) 0.42 mmol/L 0.50-2.20 L (test code = 2872) Associate Professor Of Kinesiology ID - DBCALCIUM, [id number] 04:03:00 Test Item Value Reference Range Interpretation Comments CALCIUM IONIZED (BEAKER) (test 1.02 mmol/L 1.12-1.27 L code = 698) PH, BLOOD (BEAKER) (test code = 7.44 1810) Hepatitis B surface [id number] 21:41:00 Test Item Value Reference Range Interpretation Comments HBsAg Screen (test code Nonreactive Nonreactive = 5195-3) FANTA (test code = FANTA) Specimen is considered negative for HBsAg. Lab Interpretation (test Normal code = 24088-3) [facility] SURFACE [id number] 21:41:00 Test Item Value Reference Range Interpretation Comments HEPATITIS B SURFACE ANTIGEN (2) Nonreactive Nonreactive (BEAKER) (test code = 2585) Specimen is considered negative for HBsAg.HEMOGLOBIN AND [id number] 20:59:00 Test Item Value Reference Range Interpretation Comments HEMOGLOBIN (BEAKER) (test code = 6.9 GM/DL 13.7-17.5 L 410) HEMATOCRIT (BEAKER) (test code = 20.8 % 40.1-51.0 L 411) Associate Professor Of Kinesiology ID - [id number] [id number] 18:22:00 Test Item Value Reference Range Interpretation Comments TROPONIN I (BEAKER) (test code = 0.48 ng/mL 0.00-0.03 HH 397) Troponin I (TnI) levels must be interpreted in the context of the presenting symptoms and the clinical findings. Elevated TnI levels indicate myocardial damage, but are not specific for ischemic heart disease. Elevated TnI levels are seen in patients with other cardiac conditions (including myocarditis and congestive heart failure), and slight TnI elevations occur in patients with other conditions, including sepsis, renal failure, acidosis, acute neurological disease, and persistent tachyarrhythmia.Associate Professor Of Kinesiology ID - ROSIANGB-type Natriuretic Factor (BNP)2020-05-24 18:01:00 Test Item Value Reference Range Interpretation Comments BNP (test code = 85992-6) 202 pg/mL 0-100 H FANTA (test code = FANTA) Associate Professor Of Kinesiology ID - CECILIAG Lab Interpretation (test Abnormal code = 80161-0) [facility] NATRIURET[facility] FA[facility] (BNP)2020-05-24 18:01:00 Test Item Value Reference Range Interpretation Comments B-TYPE NATRIURETIC PEPTIDE (BEAKER) 202 pg/mL 0-100 H (test code = 700) Associate Professor Of Kinesiology ID Joseph LUAIV-1 Antigen with HIV-1/2 [id number] 13:43:00 Test Item Value Reference Range Interpretation Comments HIV-1 Antigen with HIV 1&2 Nonreactive Nonreactive Antibody (test code = 10526-2) Lab Interpretation (test code = Normal 96733-4) [facility] ANTIGEN WITH HIV-1/2 [id number] 13:43:00 Test Item Value Reference Range Interpretation Comments HIV-1 ANTIGEN WITH HIV 1\T\2 Nonreactive Nonreactive ANTIBODY (2) (BEAKER) (test code = 2586) TROPONIN [id number] 13:42:00 Test Item Value Reference Range Interpretation Comments TROPONIN I (BEAKER) (test code = 0.50 ng/mL 0.00-0.03 HH 397) Troponin I (TnI) levels must be interpreted in the context of the presenting symptoms and the clinical findings. Elevated TnI levels indicate myocardial damage, but are not specific for ischemic heart disease. Elevated TnI levels are seen in patients with other cardiac conditions (including myocarditis and congestive heart failure), and slight TnI elevations occur in patients with other conditions, including sepsis, renal failure, acidosis, acute neurological disease, and persistent tachyarrhythmia.Associate Professor Of Kinesiology ID - CECILIAGBASIC METABOLIC [id number] 13:37:00 Test Item Value Reference Range Interpretation Comments SODIUM (BEAKER) 136 meq/L 136-145 (test code = 381) POTASSIUM (BEAKER) 4.6 meq/L 3.5-5.1 (test code = 379) CHLORIDE (BEAKER) 99 meq/L 98-107 (test code = 382) CO2 (BEAKER) (test 17 meq/L 22-29 L code = 355) BLOOD UREA NITROGEN 101 mg/dL 7-21 H (BEAKER) (test code = 354) CREATININE (BEAKER) 14.76 mg/dL 0.57-1.25 H (test code = 358) GLUCOSE RANDOM 140 mg/dL 70-105 H (BEAKER) (test code = 652) CALCIUM (BEAKER) 8.5 mg/dL 8.4-10.2 (test code = 697) EGFR (BEAKER) (test 3 mL/min/1.73 ESTIMAT ED GFR IS code = 1092) sq m NOT ACCURATE CREATININE CLEARANCE IN PREDICTING GLOMERULAR FILTRATION RATE . ESTIMATED GFR I S NOT APPLICABLE FOR DIALYSIS PATIEN TS. Associate Professor Of Kinesiology ID - [id number] 13:10:00 Test Item Value Reference Range Interpretation Comments PHOSPHORUS (BEAKER) (test code = 6.3 mg/dL 2.3-4.7 H 604) Associate Professor Of Kinesiology ID - ROSIANGHEMOGLOBIN AND [id number] 12:38:00 Test Item Value Reference Range Interpretation Comments HEMOGLOBIN (BEAKER) (test code = 7.7 GM/DL 13.7-17.5 L 410) HEMATOCRIT (BEAKER) (test code = 22.7 % 40.1-51.0 L 411) Associate Professor Of Kinesiology ID - 6000Hemoglobin [id number] 09:17:00 Test Item Value Reference Range Interpretation Comments Hemoglobin A1C (test code = 4548-4) 5.8 % 4.3-6.1 Lab Interpretation (test code = Normal 82019-8) [facility]HEMOGLOB[facility] [id number] 09:17:00 Test Item Value Reference Range Interpretation Comments HEMOGLOBIN A1C (BEAKER) (test code = 5.8 % 4.3-6.1 368) TROPONIN [id number] 08:48:00 Test Item Value Reference Range Interpretation Comments TROPONIN I (BEAKER) (test code = 0.49 ng/mL 0.00-0.03 397) Troponin I (TnI) levels must be interpreted in the context of the presenting symptoms and the clinical findings. Elevated TnI levels indicate myocardial damage, but are not specific for ischemic heart disease. Elevated TnI levels are seen in patients with other cardiac conditions (including myocarditis and congestive heart failure), and slight TnI elevations occur in patients with other conditions, including sepsis, renal failure, acidosis, acute neurological disease, and persistent tachyarrhythmia.Associate Professor Of Kinesiology ID - ROSIANGBASIC METABOLIC [id number] 08:33:00 Test Item Value Reference Range Interpretation Comments SODIUM (BEAKER) 139 meq/L 136-145 (test code = 381) POTASSIUM (BEAKER) 4.5 meq/L 3.5-5.1 (test code = 379) CHLORIDE (BEAKER) 102 meq/L 98-107 (test code = 382) CO2 (BEAKER) (test 16 meq/L 22-29 L code = 355) BLOOD UREA NITROGEN 120 mg/dL 7-21 H (BEAKER) (test code = 354) CREATININE (BEAKER) 14.65 mg/dL 0.57-1.25 H (test code = 358) GLUCOSE RANDOM 92 mg/dL 70-105 (BEAKER) (test code = 652) CALCIUM (BEAKER) 8.1 mg/dL 8.4-10.2 L (test code = 697) EGFR (BEAKER) (test 3 mL/min/1.73 ESTIMAT ED GFR IS code = 1092) sq m NOT ACCURATE CREATININE CLEARANCE IN PREDICTING GLOMERULAR FILTRATION RATE . ESTIMATED GFR I S NOT APPLICABLE FOR DIALYSIS PATIEN TS. Associate Professor Of Kinesiology ID - ROSIANGHEMOGLOBIN AND [id number] 08:12:00 Test Item Value Reference Range Interpretation Comments HEMOGLOBIN (BEAKER) (test code = 8.1 GM/DL 13.7-17.5 L 410) HEMATOCRIT (BEAKER) (test code = 23.5 % 40.1-51.0 L 411) Associate Professor Of Kinesiology ID - 6000Vitamin B12 and [id number] 05:56:00 Test Item Value Reference Range Interpretation Comments Vitamin B12 (test code = 237 pg/mL 313-661 2356-9) Folate (test code = 4.00 ng/mL >=7.00 L 2284-8) FANTA (test code = FANTA) Associate Professor Of Kinesiology ID - EDASI Lab Interpretation (test Abnormal code = 89152-6) [facility]IT[facility] B12 AND [id number] 05:56:00 Test Item Value Reference Range Interpretation Comments VITAMIN B12 (BEAKER) (test code = 237 pg/mL 213-816 774) FOLATE (BEAKER) (test code = 362) 4.00 ng/mL >=7.00 L Associate Professor Of Kinesiology ID - EDASIBASIC METABOLIC [id number] 04:53:00 Test Item Value Reference Range Interpretation Comments SODIUM (BEAKER) 137 meq/L 136-145 (test code = 381) POTASSIUM (BEAKER) 6.9 meq/L 3.5-5.1 HH (test code = 379) CHLORIDE (BEAKER) 98 meq/L 98-107 (test code = 382) CO2 (BEAKER) (test 10 meq/L 22-29 LL code = 355) BLOOD UREA NITROGEN 165 mg/dL 7-21 H (BEAKER) (test code = 354) CREATININE (BEAKER) 23.37 mg/dL 0.57-1.25 H (test code = 358) GLUCOSE RANDOM 97 mg/dL 70-105 (BEAKER) (test code = 652) CALCIUM (BEAKER) 7.8 mg/dL 8.4-10.2 L (test code = 697) EGFR (BEAKER) (test 2 mL/min/1.73 ESTIMAT ED GFR IS code = 1092) sq m NOT ACCURATE CREATININE CLEARANCE IN PREDICTING GLOMERULAR FILTRATION RATE . ESTIMATED GFR I S NOT APPLICABLE FOR DIALYSIS PATIEN TS. Associate Professor Of Kinesiology ID - [id number] 04:52:00 Test Item Value Reference Range Interpretation Comments PHOSPHORUS (BEAKER) (test code = 13.6 mg/dL 2.3-4.7 HH 604) Associate Professor Of Kinesiology ID - EDASICALCIUM, [id number] 04:49:00 Test Item Value Reference Range Interpretation Comments CALCIUM IONIZED (BEAKER) (test 0.96 mmol/L 1.12-1.27 L code = 698) PH, BLOOD (BEAKER) (test code = 7.23 1810) [id number] 04:42:00 Test Item Value Reference Range Interpretation Comments MAGNESIUM (BEAKER) (test code = 2.6 mg/dL 1.6-2.6 627) Associate Professor Of Kinesiology ID - EDASIHEPATIC FUNCTION [id number] 04:42:00 Test Item Value Reference Range Interpretation Comments TOTAL PROTEIN (BEAKER) (test code = 7.5 gm/dL 6.0-8.3 770) ALBUMIN (BEAKER) (test code = 1145) 3.8 g/dL 3.5-5.0 BILIRUBIN TOTAL (BEAKER) (test code 0.4 mg/dL 0.2-1.2 = 377) BILIRUBIN DIRECT (BEAKER) (test 0.2 mg/dL 0.1-0.5 code = 706) ALKALINE PHOSPHATASE (BEAKER) (test 78 U/L 40-150 code = 346) AST (SGOT) (BEAKER) (test code = 22 U/L 5-34 353) ALT (SGPT) (BEAKER) (test code = 12 U/L 6-55 347) Associate Professor Of Kinesiology ID - EDASIPT/[id number] 04:41:00 Test Item Value Reference Range Interpretation Comments PROTIME (BEAKER) (test code = 15.1 seconds 11.9-14.2 H 759) INR (BEAKER) (test code = 370) 1.22 <=5.90 PARTIAL THROMBOPLASTIN TIME 37.9 seconds 22.5-36.0 H (BEAKER) (test code = 760) Effective 01/16/2019: PT Reference Range ChangeNew: 11.9-14.2 Previous: 11.7- 14.7RECOMMENDED COUMADIN/WARFARIN INR THERAPY RANGESSTANDARD DOSE: 2.0-3.0 Includes: PROPHYLAXIS for venous thrombosis, systemic embolization; TREATMENT for venous thrombosis and/or pulmonary embolus.HIGH RISK: Target INR is2.5-3.5 for patients wiht mechanical heart valves.CBC W/PLT COUNT & AUTO [id number] 04:37:00 Test Item Value Reference Range Interpretation Comments WHITE BLOOD CELL COUNT (BEAKER) 9.9 K/ L 3.5-10.5 (test code = 775) RED BLOOD CELL COUNT (BEAKER) 2.29 M/ L 4.63-6.08 L (test code = 761) HEMOGLOBIN (BEAKER) (test code = 7.4 GM/DL 13.7-17.5 L 410) HEMATOCRIT (BEAKER) (test code = 22.7 % 40.1-51.0 L 411) MEAN CORPUSCULAR VOLUME (BEAKER) 99.1 fL 79.0-92.2 H (test code = 753) MEAN CORPUSCULAR HEMOGLOBIN 32.3 pg 25.7-32.2 H (BEAKER) (test code = 751) MEAN CORPUSCULAR HEMOGLOBIN CONC 32.6 GM/DL 32.3-36.5 (BEAKER) (test code = 752) RED CELL DISTRIBUTION WIDTH 17.6 % 11.6-14.4 H (BEAKER) (test code = 412) PLATELET COUNT (BEAKER) (test code 94 K/CU MM 150-450 L = 756) MEAN PLATELET VOLUME (BEAKER) 9.7 fL 9.4-12.4 (test code = 754) NUCLEATED RED BLOOD CELLS (BEAKER) 0 /100 WBC 0-0 (test code = 413) NEUTROPHILS RELATIVE PERCENT 65 % (BEAKER) (test code = 429) LYMPHOCYTES RELATIVE PERCENT 23 % (BEAKER) (test code = 430) MONOCYTES RELATIVE PERCENT 9 % (BEAKER) (test code = 431) EOSINOPHILS RELATIVE PERCENT 2 % (BEAKER) (test code = 432) BASOPHILS RELATIVE PERCENT 0 % (BEAKER) (test code = 437) NEUTROPHILS ABSOLUTE COUNT 6.41 K/ L 1.78-5.38 H (BEAKER) (test code = 670) LYMPHOCYTES ABSOLUTE COUNT 2.26 K/ L 1.32-3.57 (BEAKER) (test code = 414) MONOCYTES ABSOLUTE COUNT (BEAKER) 0.86 K/ L 0.30-0.82 H (test code = 415) EOSINOPHILS ABSOLUTE COUNT 0.17 K/ L 0.04-0.54 (BEAKER) (test code = 416) BASOPHILS ABSOLUTE COUNT (BEAKER) 0.02 K/ L 0.01-0.08 (test code = 417) IMMATURE GRANULOCYTES-RELATIVE 2 % 0-1 H PERCENT (BEAKER) (test code = 2801) LACTIC ACID, [id number] 04:29:00 Test Item Value Reference Range Interpretation Comments LACTATE BLOOD VENOUS (2) (BEAKER) 0.34 mmol/L 0.50-2.20 L (test code = 2872) Associate Professor Of Kinesiology ID - YEFRI, [id number] 04:16:00 Test Item Value Reference Range Interpretation Comments ABO Grouping (test code = 2588) O Rh Factor (test code = 2589) [facility]pt[facility]2020-05-24 04:13:00 Test Item Value Reference Range Interpretation Comments SARS-COV2/RT-PCR Negative Not Detected, (test code = Negative, See 82496-0) external report for linked test SARS-COV-2 [facility]FORM[facility] (test code = 22151-8) FANTA (test code = Negative results do not FANTA) preclude SARS-CoV-2 infection and should not be used as [...] of the Act. Fact Sheet for Healthcare Providers:https://www.[employer]ik[employer]/Documents/Xper t%20Xpress%20SARS%20CoV- 2/Fact%20Sheets/302-3802 %86FJGJ-LPW-8%20HEALTHCA RE%20PROVIDERS%20FACT%20 SHEET.pdf Fact Sheet for Healthcare Patients:https://www.[employer]on/Documents/Xpert %20Xpress%20SARS%20CoV-2 /Fact%20Sheets/302-3801% 71BZZQ-UFS-8%20PATIENT%2 0FACT%20SHEET.pdf Performing Laboratory:[facility] [place] [address] [facility] ([facility])2020-05-24 04:13:00 Test Item Value Reference Range Interpretation Comments SARS-COV2/RT-PCR (test code Negative Not Detected, Negative, = [id number]) See external report for linked test SARS-COV-2 PERFORMING LAB [facility] (test code = 1864571) Negative results do not preclude SARS-CoV-2 infection and should not be used as the sole basis for patient management decisions. Negative results must be combined with clinical observations, patient history, and epidemiological information. A false negative result may occur if a specimen is improperly collected, transported or handled.The limit of detection for this assay is 250 copies/mL.This SARS CoV-2 test is a rapid, real-time RT-PCR test intended for the qualitative detection of nucleic acid from SARS-CoV-2 in a nasopharyngeal swab specimen collected from individuals suspected of COVID-19 by their healthcare provider.This test has not been Food and Drug [...] is revoked under Section 564(g) of the Act.Fact Sheet for Healthcare Pro viders:https://www.[employer] [place]/Documents/Xpert%20Xpress%20SARS%20CoV-2/Fact%20Sh eets/3023802%60JTEI-ZUF-1%20HEALTHCARE%20PROVIDERS%20FACT%20SHEET.pdfFact Sheet for Healthcare Patients:https://www.[employer]/Documents/Xpert%20Xpress%20SARS%20CoV-2/Fact%20Sheets/3023801%20SARS-COV -2%20PATIENT%20FACT%20SHEET.pdfPerforming Laboratory:[facility], [place] [address]Odpw and screen, [id number] 03:41:00 Test Item Value Reference Range Interpretation Comments ABO/RH AUTOMATED (BEAKER) (test O POSITIVE code = 2260) Ab Scrn (test code = 890-4) NEGATIVE [facility][id number] 03:29:00 Test Item Value Reference Range Interpretation Comments PROTIME (BEAKER) (test code = 14.7 seconds 11.9-14.2 H 759) INR (BEAKER) (test code = 370) 1.18 <=5.90 PARTIAL THROMBOPLASTIN TIME 25.5 seconds 22.5-36.0 (BEAKER) (test code = 760) Effective 01/16/2019: PT Reference Range ChangeNew: 11.9-14.2 Previous: 11.7- 14.7RECOMMENDED COUMADIN/WARFARIN INR THERAPY RANGESSTANDARD DOSE: 2.0-3.0 Includes: PROPHYLAXIS for venous thrombosis, systemic embolization; TREATMENT for venous thrombosis and/or pulmonary embolus.HIGH RISK: Target INR is2.5-3.5 for patients wiht mechanical heart valves.TROPONIN [id number] 02:23:00 Test Item Value Reference Range Interpretation Comments TROPONIN I (BEAKER) (test code = 0.54 ng/mL 0.00-0.03 HH 397) Troponin I (TnI) levels must be interpreted in the context of the presenting symptoms and the clinical findings. Elevated TnI levels indicate myocardial damage, but are not specific for ischemic heart disease. Elevated TnI levels are seen in patients with other cardiac conditions (including myocarditis and congestive heart failure), and slight TnI elevations occur in patients with other conditions, including sepsis, renal failure, acidosis, acute neurological disease, and persistent tachyarrhythmia.Associate Professor Of Kinesiology ID - DEE DEE WBASIC METABOLIC [id number] 02:22:00 Test Item Value Reference Range Interpretation Comments SODIUM (BEAKER) 137 meq/L 136-145 (test code = 381) POTASSIUM (BEAKER) 6.4 meq/L 3.5-5.1 HH (test code = 379) CHLORIDE (BEAKER) 97 meq/L 98-107 L (test code = 382) CO2 (BEAKER) (test 10 meq/L 22-29 LL code = 355) BLOOD UREA NITROGEN 152 mg/dL 7-21 H (BEAKER) (test code = 354) CREATININE (BEAKER) 24.22 mg/dL 0.57-1.25 H (test code = 358) GLUCOSE RANDOM 103 mg/dL 70-105 (BEAKER) (test code = 652) CALCIUM (BEAKER) 7.8 mg/dL 8.4-10.2 L (test code = 697) EGFR (BEAKER) (test 2 mL/min/1.73 ESTIMAT ED GFR IS code = 1092) sq m NOT ACCURATE CREATININE CLEARANCE IN PREDICTING GLOMERULAR FILTRATION RATE . ESTIMATED GFR I S NOT APPLICABLE FOR DIALYSIS PATIEN TS. Associate Professor Of Kinesiology ID - DEE DEE [id number] 02:21:00 Test Item Value Reference Range Interpretation Comments PHOSPHORUS (BEAKER) (test code = 14.1 mg/dL 2.3-4.7 HH 604) Associate Professor Of Kinesiology ID - DEE DEE [id number] 02:16:00 Test Item Value Reference Range Interpretation Comments MAGNESIUM (BEAKER) (test code = 2.6 mg/dL 1.6-2.6 627) Associate Professor Of Kinesiology ID - DEE DEE WHEPATIC FUNCTION [id number] 02:16:00 Test Item Value Reference Range Interpretation Comments TOTAL PROTEIN (BEAKER) (test code = 7.1 gm/dL 6.0-8.3 770) ALBUMIN (BEAKER) (test code = 1145) 3.5 g/dL 3.5-5.0 BILIRUBIN TOTAL (BEAKER) (test code 0.4 mg/dL 0.2-1.2 = 377) BILIRUBIN DIRECT (BEAKER) (test 0.2 mg/dL 0.1-0.5 code = 706) ALKALINE PHOSPHATASE (BEAKER) (test 77 U/L 40-150 code = 346) AST (SGOT) (BEAKER) (test code = 17 U/L 5-34 353) ALT (SGPT) (BEAKER) (test code = 10 U/L 6-55 347) Associate Professor Of Kinesiology ID Joseph FUNEZ WB-TYPE NATRIURETIC FACTOR (BNP)2020-05-24 02:12:00 Test Item Value Reference Range Interpretation Comments B-TYPE NATRIURETIC PEPTIDE (BEAKER) 459 pg/mL 0-100 H (test code = 700) Associate Professor Of Kinesiology ID Joseph FUNEZ WCBC W/PLT COUNT & AUTO [id number] 02:11:00 Test Item Value Reference Range Interpretation Comments WHITE BLOOD CELL COUNT (BEAKER) 11.7 K/ L 3.5-10.5 H (test code = 775) RED BLOOD CELL COUNT (BEAKER) 1.64 M/ L 4.63-6.08 L (test code = 761) HEMOGLOBIN (BEAKER) (test code = 5.4 GM/DL 13.7-17.5 LL 410) HEMATOCRIT (BEAKER) (test code = 16.3 % 40.1-51.0 L 411) MEAN CORPUSCULAR VOLUME (BEAKER) 99.4 fL 79.0-92.2 H (test code = 753) MEAN CORPUSCULAR HEMOGLOBIN 32.9 pg 25.7-32.2 H (BEAKER) (test code = 751) MEAN CORPUSCULAR HEMOGLOBIN CONC 33.1 GM/DL 32.3-36.5 (BEAKER) (test code = 752) RED CELL DISTRIBUTION WIDTH 17.4 % 11.6-14.4 H (BEAKER) (test code = 412) PLATELET COUNT (BEAKER) (test code 89 K/CU MM 150-450 L = 756) MEAN PLATELET VOLUME (BEAKER) 9.6 fL 9.4-12.4 (test code = 754) NUCLEATED RED BLOOD CELLS (BEAKER) 0 /100 WBC 0-0 (test code = 413) NEUTROPHILS RELATIVE PERCENT 65 % (BEAKER) (test code = 429) LYMPHOCYTES RELATIVE PERCENT 22 % (BEAKER) (test code = 430) MONOCYTES RELATIVE PERCENT 10 % (BEAKER) (test code = 431) EOSINOPHILS RELATIVE PERCENT 2 % (BEAKER) (test code = 432) BASOPHILS RELATIVE PERCENT 0 % (BEAKER) (test code = 437) NEUTROPHILS ABSOLUTE COUNT 7.62 K/ L 1.78-5.38 H (BEAKER) (test code = 670) LYMPHOCYTES ABSOLUTE COUNT 2.52 K/ L 1.32-3.57 (BEAKER) (test code = 414) MONOCYTES ABSOLUTE COUNT (BEAKER) 1.13 K/ L 0.30-0.82 H (test code = 415) EOSINOPHILS ABSOLUTE COUNT 0.18 K/ L 0.04-0.54 (BEAKER) (test code = 416) BASOPHILS ABSOLUTE COUNT (BEAKER) 0.02 K/ L 0.01-0.08 (test code = 417) IMMATURE GRANULOCYTES-RELATIVE 2 % 0-1 H PERCENT (BEAKER) (test code = 2807) LACTIC ACID, [id number] 02:03:00 Test Item Value Reference Range Interpretation Comments LACTATE BLOOD VENOUS (2) (BEAKER) 0.68 mmol/L 0.50-2.20 (test code = 2872) Associate Professor Of Kinesiology ID - DEE DEE WSpecimen slightly lipemicRAD, CHEST, 1 VIEW, NON DEPT 2020-05-24 01:55:00Reason for exam:->SOB/Fluid overloadShould this be performed at the bedside?->YesFINAL REPORT INDICATION: SOB/Fluid overload COMPARISON: None TECHNIQUE: Single frontal view of the chest. IMPRESSION: Lungs and pleura: Venous congestion and bilateral interstitial edema. No airspace consolidation or effusion.Heart and mediastinum: Normal heart size. Unremarkable mediastinal contours.Osseous structures: No acute abnormality.Other: Right IJ central venous catheter terminates in the SVC. Signed: Sally Renae MDReport Verified Date/Time: 05/24/2020 01:55:13 Blood gas, [id number] 01:37:00 Test Item Value Reference Range Interpretation Comments pH, Duc (test code = 2746-6) 7.27 7.32-7.42 L pCO2, Duc (test code = 755) 26 41- 51 mmHg L pO2, Duc (test code = 2705-2) 63 25- 40 mmHg H O2 Sat, Duc (test code = 2711-0) 89.7 % 40-70 H HCO3, Duc (test code = 81933-2) 12 mmol/L 21-29 L Base Excess, Duc (test code = -14.0 mmol/L -2-3 L 1927-3) Patient Temperature (test code = 37.0 C 8310-5) FIO2 (test code = 1819) 100 % Lab Interpretation (test code = Abnormal 02944-1) [facility] [id number] 01:37:00 Test Item Value Reference Range Interpretation Comments PH VENOUS (BEAKER) (test code = 7.27 7.32-7.42 L 701) PCO2 VENOUS (BEAKER) (test code 26 mmHg 41-51 L = 755) PO2 VENOUS (BEAKER) (test code = 63 mmHg 25-40 H 702) O2 SATURATION VENOUS (BEAKER) 89.7 % 40.0-70.0 H (test code = 703) HCO3 VENOUS (BEAKER) (test code 12 mmol/L 21-29 L = 705) BASE EXCESS VENOUS (BEAKER) -14.0 mmol/L -2.0-3.0 L (test code = 704) PATIENT TEMPERATURE (BEAKER) 37.0 C (test code = 1818) FIO2 (BEAKER) (test code = 1819) 100.0 % SARS-COV2/RT-PCR ([facility])2020-02-23 11:58:00 Test Item Value Reference Range Interpretation Comments SARS-COV2/RT-PCR (test code = Negative Not Detected, Negative 1956258) SARS-COV-2 PERFORMING LAB [facility] (test code = 1245929) Negative result for this test determines that SARS-CoV-2 RNA was not present in the specimen above the Limit of Detection (LOD). However, Negative results do not preclude SARS-CoV-2 infection and should not be used as the sole basis for treatment or patient management decisions. Negative results mustbe combined with clinical observations, patient history, and epidemiological information. A false negative result may occur if a specimen is improperly collected, transported or handled. A false negative result should be considered if patient's recent exposures or clinical presentation indicate that COVID-19 (SARS-CoV-2) is likely and diagnostic tests for other causes of illness are negative. Re-testing should be considered in cases of suspected false negatives.The limit of detection for this assay is 800 copies/mL.This SARS CoV-2 test is a real-time RT-PCR test intended for the qualitative detection of nucleic acid from SARS-CoV-2 in a nasopharyngeal swab specimen collected from individuals susp ected of COVID-19 by their healthcare provider.This test has not been Food and Drug Administration (FDA) cleared or approved. This is a modified version of an approved Emergency Use Authorization (EUA) and is in the process of review by the FDA. Once authorized by the FDA, the issued EUA will be effective until the declaration that circumstances exist justifying the authorization of the emergency use of in vitro diagnostic tests for detection and/or diagnosis of COVID-19 is terminated under Section 564(b)(2) of the Act or the EUA is revoked under Section 564(g) of the Act.Fact Sheet for Healthcare Providers:https://www.[employer]creen.ebridge/sites/default/files/product/documents/Fact_Shee e_WY_Mrwmvclcc_Monn_RFPW-NhR-4.pdfFact Sheet for Healthcare Patients:https://www.[employer].ebridge/sites/default/files/product/ documents/Iauz_Njumt_Jnrujfnq_Wncl_FWEE-TzJ-8.pdfPerforming Laboratory:[facility] [place] [address]
== END 2020-05-23 23:10 | disposition short-term general hospital (02) ==
LOC: ER 13:45
DX: I12.0 Hypertensive chronic kidney disease with stage 5 chronic kidney disease or end stage renal disease (principal); N18.6 End stage renal disease; E87.5 Hyperkalemia; E87.2 Acidosis; D63.1 Anemia in chronic kidney disease; E83.41 Hypermagnesemia; Z99.2 Dependence on renal dialysis
CPT/HCPCS: 93005; 85025; 80048 ×2; 36415; 83735; 85610; 82947; 80076; 84484; 83880; 74176; 71045; 96375; 96374; 99285; J0610

== ENCOUNTER 2020-06-17 08:01 | Inpatient (IN) | payer OTHER ==
--- OUTSIDE RECORDS SUMMARY | 2020-06-17 08:25 | XMS REPORT | Clinical Summary ---
:1965 Author Organization [facility] Address [address] [place] [address] Care Team Providers Name Role Phone Unavailable Primary Care Provider Unavailable Allergies Active Allergy Reactions Severity Noted Date Comments Gabapentin 05/24/2020 Medications Medication Sig Dispensed Refills Start Date End Date Status atorvastatin Take 1 tablet 30 tablet 0 06/02/2020 06/02/2021 A ctive (LIPITOR) 20 MG (20 mg total) by tablet mouth nightly. carvediloL (COREG) 25 Take 1 tablet 60 tablet 0 06/02/2020 Active MG tablet (25 mg total) by mouth 2 (two) times daily. cyanocobalamin, Take 1 tablet 30 tablet 0 06/03/2020 1 Active vitamin B-12, 1000 (1,000 mcg MCG tablet total) by mouth daily. folic acid (FOLVITE) Take 1 tablet (1 30 tablet 0 06/03/2020 1 Active 1 MG tablet mg total) by mouth daily. pantoprazole Take 1 tablet 60 tablet 0 06/02/2020 Ac tive (PROTONIX) 40 MG (40 mg total) by tablet mouth 2 (two) times daily. sevelamer (RENVELA) Take 2 tablets 90 tablet 0 06/03/202005/21 Active 800 mg tablet (1,600 mg total) by mouth 3 (three) times daily with meals. acetaminophen-codeine Take 1 tablet by 20 tablet 0 06/02/2020 06/12/2020 (TYLENOL #3) 300-30 mouth every 6 mg per tablet (six) hours as needed for Pain for up to 10 days. Max Daily Amount: 4 tablets Active Problems Problem Noted Date Hyperkalemia 05/24/2020 PINA (acute kidney injury) Encounters Date Type Specialty Care Team Description 05/27/2020 Anesthesia Event Gastroenterology Cuco Lane MD 05/27/2020 Surgery Gastroenterology Myrna Monsalve MD ENDOSCOPY,BIOPS Y 05/25/2020 Travel 05/24/2020 Hospital Oncology Reggie Miguel; - Encounter Michael Ames, ESRD (end st age renal disease) on dialysis (HCC); 06/03/2020 Severe sepsis ([facility]); Jeff Nicholas acido sis; Christopher Hematoma of thi gh, right, initial encounter; MD Donna PINA (acute kidney injury) ([facility]); Vee Hernandez Thrombocytop enia ([facility]); MD Corrine Anemia, unspecified type; Delia Matthews Gastroesophalice geal reflux disease, unspecified whether esophagitis present; MD Akilah Epigastric pain; Mustapha, Acute blood los s anemia Emanuel Valdivia MD 05/23/2020 Telephone Critical Care Santy Cardona, transfer Medicine Michael Ames MD 02/22/2020 Lab Requisition Lab after 06/17/2019 Immunizations Name Administration Dates Next Due Influenza Four-QIV PF 3YR+ 05/25/2020 Social History Tobacco Use Types Packs/Day Years Used Date Former Smoker Sex Assigned at Date Recorded Not on file COVID-19 Exposure Response Date Recorded In the last month, have you been in contact with No / Unsure 05/25/2020 1:04 PM CDT someone who was confirmed or suspected to have Coronavirus / COVID-19? Last Filed Vital Signs Vital Sign Reading Time Taken Comments Blood Pressure 129/81 06/03/2020 11:45 AM CDT Pulse 80 06/03/2020 11:45 AM CDT Temperature 36.7 C (98.1 F) 06/03/2020 11:45 AM CDT Respiratory Rate 19 06/03/2020 11:45 AM CDT Oxygen Saturation 97% 06/03/2020 11:45 AM CDT Inhaled Oxygen Concentration - - Weight 69.9 kg (154 lb 1.6 oz) 06/03/2020 4:52 AM CDT Height 167.6 cm (5' 5.98") 05/24/2020 12:30 AM CDT Body Mass Index 24.88 05/24/2020 12:30 AM CDT Plan of Treatment Health Maintenance Due Date Last Done Comments COLON CANCER SCREENING COLONOSCOPY 1965 LIPID PANEL 1998 Medicare IPPE (WELCOME TO MEDICARE) 05/21/2020 INFLUENZA VACCINE Completed 05/25/2020 Procedures Procedure Name Priority Date/Time Associated Comments Diagnosis HEMODIALYSIS Routine 06/03/2020 12:01 Results for this INPATIENT PM CDT procedure are i n the results section. (CELLAVISION MANUAL STAT 06/03/2020 4:07 Resu lts for this DIFF) AM CDT procedure are i n the results section. CBC W/PLT COUNT & STAT 06/03/2020 4:07 Result s for this AUTO DIFFERENTIAL AM CDT procedure are in the results section. PHOSPHORUS Routine 06/03/2020 4:07 Results for this AM CDT procedure are i n the results section. COMPREHENSIVE STAT 06/03/2020 4:07 Results fo r this METABOLIC PANEL AM CDT procedure ar e in the results section. CALCIUM, IONIZED Routine 06/03/2020 4:07 Results for this AM CDT procedure are i n the results section. HEPATIC FUNCTION STAT 06/03/2020 4:07 Results for this PANEL AM CDT procedure are i n the results section. PT/APTT STAT 06/03/2020 4:07 Results for this AM CDT procedure are i n the results section. MAGNESIUM STAT 06/03/2020 4:07 Results for this AM CDT procedure are i n the results section. CBC W/PLT COUNT & STAT 06/03/2020 4:07 Result s for this AUTO DIFFERENTIAL AM CDT procedure are in the results section. PREPARE LEUKO-REDUCED Routine 06/02/2020 11:54 Re sults for this RBC PM CDT procedure are i n the results section. (CELLAVISION MANUAL STAT 06/02/2020 3:56 Resu lts for this DIFF) AM CDT procedure are i n the results section. CBC W/PLT COUNT & STAT 06/02/2020 3:56 Result s for this AUTO DIFFERENTIAL AM CDT procedure are in the results section. HEPATIC FUNCTION STAT 06/02/2020 3:56 Results for this PANEL AM CDT procedure are i n the results section. PT/APTT STAT 06/02/2020 3:56 Results for this AM CDT procedure are i n the results section. MAGNESIUM STAT 06/02/2020 3:56 Results for this AM CDT procedure are i n the results section. BASIC METABOLIC PANEL STAT 06/02/2020 3:56 Re sults for this (7) AM CDT procedure are i n the results section. CBC W/PLT COUNT & STAT 06/02/2020 3:56 Result s for this AUTO DIFFERENTIAL AM CDT procedure are in the results section. TRANSFUSE Routine 06/01/2020 10:33 LEUKO-REDUCED RED PM CDT BLOOD CELLS POCT-GLUCOSE METER Routine 06/01/2020 10:11 Resul ts for this PM CDT procedure are i n the results section. HEPATITIS B SURFACE Routine 06/01/2020 7:23 Resu lts for this ANTIBODY PM CDT procedure are i n the results section. (CELLAVISION MANUAL STAT 06/01/2020 4:32 Resu lts for this DIFF) AM CDT procedure are i n the results section. CBC W/PLT COUNT & STAT 06/01/2020 4:32 Result s for this AUTO DIFFERENTIAL AM CDT procedure are in the results section. HEPATIC FUNCTION STAT 06/01/2020 4:32 Results for this PANEL AM CDT procedure are i n the results section. PT/APTT STAT 06/01/2020 4:32 Results for this AM CDT procedure are i n the results section. MAGNESIUM STAT 06/01/2020 4:32 Results for this AM CDT procedure are i n the results section. BASIC METABOLIC PANEL STAT 06/01/2020 4:32 Re sults for this (7) AM CDT procedure are i n the results section. CBC W/PLT COUNT & STAT 06/01/2020 4:32 Result s for this AUTO DIFFERENTIAL AM CDT procedure are in the results section. TYPE AND SCREEN, Routine 05/31/2020 9:50 Results for this AUTOMATED AM CDT procedure are i n the results section. HEMOGLOBIN AND Routine 05/31/2020 9:50 Results f or this HEMATOCRIT AM CDT procedure are i n the results section. (CELLAVISION MANUAL STAT 05/31/2020 5:34 Resu lts for this DIFF) AM CDT procedure are i n the results section. CBC W/PLT COUNT & STAT 05/31/2020 5:34 Result s for this AUTO DIFFERENTIAL AM CDT procedure are in the results section. HEPATIC FUNCTION STAT 05/31/2020 5:34 Results for this PANEL AM CDT procedure are i n the results section. PT/APTT STAT 05/31/2020 5:34 Results for this AM CDT procedure are i n the results section. MAGNESIUM STAT 05/31/2020 5:34 Results for this AM CDT procedure are i n the results section. BASIC METABOLIC PANEL STAT 05/31/2020 5:34 Re sults for this (7) AM CDT procedure are i n the results section. CBC W/PLT COUNT & STAT 05/31/2020 5:34 Result s for this AUTO DIFFERENTIAL AM CDT procedure are in the results section. (CELLAVISION MANUAL STAT 05/30/2020 4:39 Resu lts for this DIFF) AM CDT procedure are i n the results section. CBC W/PLT COUNT & STAT 05/30/2020 4:39 Result s for this AUTO DIFFERENTIAL AM CDT procedure are in the results section. HEPATIC FUNCTION STAT 05/30/2020 4:39 Results for this PANEL AM CDT procedure are i n the results section. PT/APTT STAT 05/30/2020 4:39 Results for this AM CDT procedure are i n the results section. MAGNESIUM STAT 05/30/2020 4:39 Results for this AM CDT procedure are i n the results section. BASIC METABOLIC PANEL STAT 05/30/2020 4:39 Re sults for this (7) AM CDT procedure are i n the results section. CBC W/PLT COUNT & STAT 05/30/2020 4:39 Result s for this AUTO DIFFERENTIAL AM CDT procedure are in the results section. (CELLAVISION MANUAL STAT 05/29/2020 4:50 Resu lts for this DIFF) AM CDT procedure are i n the results section. CBC W/PLT COUNT & STAT 05/29/2020 4:50 Result s for this AUTO DIFFERENTIAL AM CDT procedure are in the results section. PHOSPHORUS Routine 05/29/2020 4:50 Results for this AM CDT procedure are i n the results section. HEPATIC FUNCTION STAT 05/29/2020 4:50 Results for this PANEL AM CDT procedure are i n the results section. PT/APTT STAT 05/29/2020 4:50 Results for this AM CDT procedure are i n the results section. MAGNESIUM STAT 05/29/2020 4:50 Results for this AM CDT procedure are i n the results section. BASIC METABOLIC PANEL STAT 05/29/2020 4:50 Re sults for this (7) AM CDT procedure are i n the results section. CBC W/PLT COUNT & STAT 05/29/2020 4:50 Result s for this AUTO DIFFERENTIAL AM CDT procedure are in the results section. HEPATITIS PANEL, Routine 05/28/2020 2:19 Results for this ACUTE PM CDT procedure are i n the results section. (CELLAVISION MANUAL STAT 05/28/2020 3:59 Resu lts for this DIFF) AM CDT procedure are i n the results section. CBC W/PLT COUNT & STAT 05/28/2020 3:59 Result s for this AUTO DIFFERENTIAL AM CDT procedure are in the results section. COMPREHENSIVE Routine 05/28/2020 3:59 Results fo r this METABOLIC PANEL AM CDT procedure ar e in the results section. HEPATIC FUNCTION STAT 05/28/2020 3:59 Results for this PANEL AM CDT procedure are i n the results section. PT/APTT STAT 05/28/2020 3:59 Results for this AM CDT procedure are i n the results section. MAGNESIUM STAT 05/28/2020 3:59 Results for this AM CDT procedure are i n the results section. BASIC METABOLIC PANEL STAT 05/28/2020 3:59 Re sults for this (7) AM CDT procedure are i n the results section. CBC W/PLT COUNT & STAT 05/28/2020 3:59 Result s for this AUTO DIFFERENTIAL AM CDT procedure are in the results section. D-DIMER Routine 05/28/2020 3:59 Results for this AM CDT procedure are i n the results section. REPORT OF PROCEDURE - 05/27/2020 8:30 ENDOSCOPY URL AM CDT TISSUE EXAM AP Routine 05/27/2020 8:20 Results for this AM CDT procedure are i n the results section. UPPER 05/27/2020 7:59 Anemia, unspecified ENDOSCOPY,BIOPSY AM CDT type (MANUAL [...] procedure are i n the results section. DRUG TEST, GENERAL Routine 05/24/2020 6:40 Resul ts for this TOXICOLOGY, URINE PM CDT procedure are in the results section. B-TYPE NATRIURETIC Routine 05/24/2020 [...] results section. BLOOD CULTURE Routine 05/24/2020 3:34 Results fo r this AM CDT procedure are i n the results section. TYPE AND SCREEN, STAT 05/24/2020 2:59 Results for this AUTOMATED AM CDT procedure are i n the results section. PT/APTT STAT 05/24/2020 2:59 Results for this AM CDT procedure are i n the results section. BLOOD CULTURE Routine 05/24/2020 2:58 Results fo r this AM CDT procedure are i n the results section. SARS-COV2/RT-PCR STAT 05/24/2020 2:33 Results for this [...] procedure are i n the results section. REPORT OF PROCEDURE - 05/24/2020 Result s for this ENDOSCOPY SCAN procedure are in the results section. SARS-COV2/RT-PCR Routine 02/22/2020 10:34 Results for this ([facility]) AM CDT procedure are in the results section. after 06/17/2019 Results HEMODIALYSIS INPATIENT (06/03/2020 12:01 PM CDT) Narrative Performed At Alon Garrett RN 06/03/2020 12: 01 PM Lab Results Component Value Date GLUCOSE 89 06/03/2020 CALCIUM 9.2 06/03/2020 NA 134 (L) 06/03/2020 K 5.1 06/03/2020 CO2 24 06/03/2020 CL 96 (L) 06/03/2020 BUN 60 (H) 06/03/2020 CREATININE 9.02 (H) 06/03/2020 Lab Results Component Value Date WBC 11.6 (H) 06/03/2020 HGB 7.9 (L) 06/03/2020 HCT 23.2 (L) 06/03/2020 MCV 94.3 (H) 06/03/2020 PLT 79 (L) 06/03/2020 HBSAg - Nonreactive 05/28/2020 - S/P Hemodialysis x 4 hours. - Removed 1.5 L as tolerated. - Treatment tolerated well. Asymptomatic through out procedure - CVC patent and intact. No S/Sx of infe ction noted. Dressing changed and labelled per policy. - Consent verified prior to initiation o f treatment. - Report given to primary RN. Alon Garrett RN Manual Differential (06/03/2020 4:07 AM CDT)Only the most recent of9 results within the time period is included. Pathologist Sig nature % Neutros 62 % [facility] % Lymphs 27 % [facility] % Monos 5 % [facility] % Myelo 3 (H) 0 - 0 % [facility] % Bands 3 0 - 10 % [facility] # Neutros 7.19 (H) 1.78 - 5.38 K/ul [facility] # Lymphs 3.13 1.32 - 3.57 K/ul [facility] # Monos 0.58 0.30 - 0.82 K/uL [facility] # Myelo 0.35 (H) 0.00 - 0.00 K/uL [facility] # Bands 0.35 0.00 - 0.80 K/uL [facility] Total Counted 100 [facility] nRBC (manual) 1 (H) 0 - 0 /100 WBC [facility] WBC Morphology Normal [facility] Large Platelet Present [facility] Anisocytosis 1+ few [facility] Microcytes 1+ few [facility] Artifact Present [facility] Platelet Conc Decreased [facility] Specimen Blood Narrative Performed At Visual Manager ID - Chris Dixon [facility] User comments: Slide comments: Performing Organization Address City/State/Zipcode Phone Number [facility] [address] [place] [address] CENTER PT/aPTT (06/03/2020 4:07 AM CDT)Only the most recent of12 resultswithin the time period is included. Pathologist Sig nature Protime 14.1 11.9 - 14.2 seconds [facility] INR 1.12 <=5.90 [facility] PTT 38.0 (H) 22.5 - 36.0 seconds [facility] Specimen Blood Narrative Performed At Effective 01/16/2019: PT Reference Range [facility] Change New: 11.9-14.2 Previous: 11.7-14.7 RECOMMENDED COUMADIN/WARFARIN INR THERAPY RANGES STANDARD DOSE: 2.0-3.0 Includes: PROPHYLAXIS for venous thrombosis, systemic embolization; TREATMENT for venous thrombosis and/or pulmonary embolus. HIGH RISK: Target INR is 2.5-3.5 for patients wiht mechanical heart valves. Performing Organization Address City/State/Zipcode Phone Number [facility] [address] [place] [id number] CENTER Calcium, Ionized (06/03/2020 4:07 AM CDT)Only the most recent of4 resultswithin the time period is included. Pathologist Sig formerly [facility] Calcium, Ion 1.17 1.12 - 1.27 mmol/L [facility] pH, Blood 7.44 [facility] Specimen Blood Performing Organization Address City/[facility] Phone Number [address] [address] CENTER CBC with platelet count + automated diff (06/03/2020 4:07 AM CDT)Only the most recent of13 resultswithin the time period is included. Pathologist Sig nature WBC 11.6 (H) 3.5 - 10.5 K/L [facility] RBC 2.46 (L) 4.63 - 6.08 M/L [facility] Hemoglobin 7.9 (L) 13.7 - 17.5 GM/DL [facility] Hematocrit 23.2 (L) 40.1 - 51.0 % [facility] MCV 94.3 (H) 79.0 - 92.2 fL [facility] MCH 32.1 25.7 - 32.2 pg [facility] MCHC 34.1 32.3 - 36.5 GM/DL [facility] RDW 15.9 (H) 11.6 - 14.4 % [facility] Platelets 79 (L) 150 - 450 K/CU MM [facility] MPV 10.8 9.4 - 12.4 fL [facility] nRBC 1 (H) 0 - 0 /100 WBC [facility] Specimen Blood Performing Organization Address City/State/Zipcode Phone Number [facility] [address] [phone] [place] Phosphorus (06/03/2020 4:07 AM CDT)Only the most recent of7 resultswithin the time period is included. Pathologist Sig nature Phosphorus 4.3Comment: 2.3 - 4.7 mg/dL [facility] Specimen slightly [facility] Specimen Blood Narrative Performed At Visual Manager ID - [facility] Performing Organization Address City/[facility] Phone Number [address] [address] CENTER Magnesium (06/03/2020 4:07 AM CDT)Only the most recent of12 resultswithin the time period is included. Pathologist Sig nature Magnesium 2.0Comment: Specimen 1.6 - 2.6 mg/dL [facility] hemolyzed [facility] Specimen Blood Narrative Performed At Visual Manager ID - BONILLA M [facility] Performing Organization Address City/[facility] Phone Number [address] [phone] [place] Hepatic function panel (06/03/2020 4:07 AM CDT)Only the most recent of12 resultswithin the time period is included. Protein, Total 6.5Comment: 6.0 - 8.3 [facility] Specimen slightly gm/dL [facility] Albumin 3.3 (L)Comment: 3.5 - 5.0 [facility] Specimen slightly g/dL [facility] Total Bilirubin 0.3Comment: 0.2 - 1.2 [facility] Specimen slightly mg/dL [facility] Bilirubin, Direct 0.1Comment: 0.1 - 0.5 [facility] Specimen slightly mg/dL [facility] Alkaline 71 40 - 150 U/L [facility] Phosphatase [facility] AST 42 (H)Comment: 5 - 34 U/L [facility] Specimen slightly [facility] ALT 14Comment: 6 - 55 U/L [facility] Specimen slightly [facility] Specimen Blood Narrative Performed At Visual Manager EVELYNE Moore [facility] Performing Organization Address City/State/Zipcode Phone Number [facility] [address] [place] [address] CENTER Comprehensive metabolic panel (06/03/2020 4:07 AM CDT)Only the most recent of4 resultswithin the time period is included. Protein, Total 6.5Comment: 6.0 - 8.3 [facility] Specimen slightly gm/dL [facility] Albumin 3.3 (L)Comment: 3.5 - 5.0 [facility] Specimen slightly g/dL [facility] Alkaline 71 40 - 150 U/L [facility] Phosphatase [facility] Total Bilirubin 0.3Comment: 0.2 - 1.2 [facility] Specimen slightly mg/dL [facility] Sodium 134 (L) 136 - 145 [facility] meq/L [facility] Potassium 5.1Comment: 3.5 - 5.1 [facility] Specimen slightly meq/L [facility] Chloride 96 (L) 98 - 107 [facility] meq/L [facility] CO2 24 22 - 29 meq/L [facility] BUN 60 (H) 7 - 21 mg/dL [facility] Creatinine 9.02 (H)Comment: 0.57 - 1.25 [facility] Specimen slightly mg/dL [facility] Glucose 89 70 - 105 [facility] mg/dL [facility] Calcium 9.2 8.4 - 10.2 [facility] mg/dL [facility] AST 42 (H)Comment: 5 - 34 U/L [facility] Specimen slightly [facility] ALT 14Comment: 6 - 55 U/L [facility] Specimen slightly [facility] hemolyzed MEDICAL CENTER EGFR 6Comment: mL/min/1.73 [facility] ESTIMATED GFR IS sq [facility] NOT ACCURATE MEDICAL CENTER CREATININE CLEARANCE IN PREDICTING GLOMERULAR FILTRATION RATE. ESTIMATED GFR IS NOT APPLICABLE FOR DIALYSIS PATIENTS. Specimen Blood Narrative Performed At Visual Manager EVELYNE - BONILLA Moore [facility] Performing Organization Address City/[facility]/Zipcode Phone Number [place] [phone] [place] [address] CENTER Prepare Leuko-Red RBC (06/02/2020 11:54 PM CDT)Only the most recent of3 results within the time period is included. Pathologist Sig nature CROSSMATCH COMPATIBLE [employer]AF[employer] TX Unit ABO O Pos SAFET[employer]ACE TX UNIT NUMBER [id number] [employer] TX Status TX_TIMEINCHART [employer]AFET[employer]ACE TX Blood Bank Product RED BLOOD CELLS [employer] [place] PRODUCT CODE [id number] [employer] [place] Specimen Other Performing Organization Address City/[facility] Phone Number [employer] [place] Basic Metabolic Panel (06/02/2020 3:56 AM CDT)Only the most recent of12 results within the time period is included. Sodium 135 (L) 136 - 145 meq/L [facility] Potassium 4.7 3.5 - 5.1 meq/L [facility] Chloride 98 98 - 107 meq/L [facility] CO2 25 22 - 29 meq/L [facility] BUN 36 (H) 7 - 21 mg/dL [facility] Creatinine 6.44 (H) 0.57 - 1.25 [facility] mg/dL [facility] Glucose 96 70 - 105 mg/dL [facility] Calcium 8.6 8.4 - 10.2 [facility] mg/dL [facility] EGFR 9Comment: ESTIMATED mL/min/1.73 [facility] GFR IS NOT [facility] MED[facility] CREATININE CLEARANCE IN PREDICTING GLOMERULAR FILTRATION RATE. ESTIMATED GFR IS NOT APPLICABLE FOR DIALYSIS PATIENTS. Specimen Blood Narrative Performed At Visual Manager ID - EDASI [facility] Performing Organization Address [facility] Phone Number [address] [phone] CENTER Transfuse Leuko-Red RBC (06/01/2020 10:33 PM CDT)Only the most recent of3 resultswithin the time period is included.POC-Glucose meter (06/01/2020 10:11 PM CDT) POC-Glucose Meter 99 70 - 110 mg/dL [facility] Comment: [facility] : TESTED AT [address], [address] CENTER : Visual Manager/Bulk Sealer Operator ID = [id number] for Jerson Morales Specimen Blood Performing Organization Address [facility] Phone Number [address] [phone] CENTER Hepatitis B surface antibody (06/01/2020 7:23 PM CDT) Pathologist Sig nature Hep B S Ab 27.2 (H) <8.0 mIU/mL [facility] Specimen Blood Narrative Performed At Visual Manager ID - DB [facility] Performing Organization Address [facility] Phone Number [address] [address] CENTER Type and screen, automated (05/31/2020 9:50 AM CDT)Only the most recent of2 resultswithin the time period is included. Pathologist Sig nature ABO/RH AUTOMATED O POSITIVE [facility] [facility] Ab Scrn NEGATIVE [facility] Specimen Blood Performing Organization Address [facility] Phone Number [address] [phone] Hemoglobin and hematocrit (05/31/2020 9:50 AM CDT)Only the most recent of6 resultswithin the time period is included. Pathologist Sig nature Hemoglobin 7.2 (L) 13.7 - 17.5 GM/DL [facility] Hematocrit 21.2 (L) 40.1 - 51.0 % [facility] Specimen Blood Narrative Performed At Visual Manager ID - [id number] [facility] Performing Organization Address [facility] Phone Number [address] [address] [place] Hepatitis panel, acute (05/28/2020 2:19 PM CDT) Pathologist Sig nature Hep A IgM Nonreactive Nonreactive [facility] Hep B C IgM Nonreactive Nonreactive [facility] Hepatitis C Ab Reactive (A) Nonreactive [facility] HBsAg Screen Nonreactive Nonreactive [facility] Specimen Blood Narrative Performed At Visual Manager ID - DB [facility] Performing Organization Address [facility] Phone Number [address] [address] CENTER D-dimer (05/28/2020 3:59 AM CDT)Only the most recent of3 resultswithin the time period is included. Pathologist Sig nature D-Dimer, Quant 3.35 (H) <0.50 MG/L FEU [facility] Specimen Blood Narrative Performed At Intended Use: The D-Dimer Assay can be used [facility] to aid in the diagnosis of Deep Vein Thrombosis (DVT) and Pulmonary Embolism Disease (PED). In patients with low pre-test probability, various studies concerning STA Liatest D-dimer test have reported that with a cutoff value of 0.50 MG/L FEU, the Negative Predictive Value (NPV) regarding the exclusion of thrombosis is within 95-100% range. Performing Organization Address [facility] Phone Number [address] [address] [place] REPORT OF PROCEDURE - ENDOSCOPY URL (05/27/2020 8:30 AM CDT) Narrative Performed At This result has an attachment that is no t available. Tissue Exam (05/27/2020 8:20 AM CDT) Case Report Surgical Pathology Report Case: [id number] [facility] Authorizing Provider: Myrna Tijerina MD Collected: 05/27/2020 08:20 AM [facility] Ordering Location: [address] Received: 05/27/2020 02:50 PM [facility] Pathologist: Rosa Cisneros MD Specimens: A) - Biopsy, G astric, random biopsies R/O H. pylori B) - Biop sy, Gastroesophageal Junction, random biopsies R/O Islas's DIAGNOSIS A. 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 GASTROESOPHAGEAL JUNCTION, ENDOSCOPIC MUCOSAL BIOPS IES - SQUAMOCOLUMNAR MUCOSA WITH ACTIVE CARDITIS - NEGATIVE FOR SPECIALIZED ISLAS METAPLASIA Signing Pathologist Direct Phone Line: [phone] COMMENT . [facility] CPT Code(s) 35897 x2, 32194 [facility] CLINICAL HISTORY Anemia [facility] SPECIMEN SOURCE A. Random gastric biopsy, rule out H. Pylori [facility] B. Random GE junction biopsy, rule out Islas's [facility] GROSS DESCRIPTION A. Received in formalin labe led with the patient's name, medical record number and "gastric biopsy" are two pieces of rees-white mucosa- covered tissue that measure 0.5 x 0.3 x 0.2 cm in aggregate. The sp [facility] ecimen is submitted in toto following filtration in ca ssette A1. [facility] B. Received in formalin labe led with the patient's name, medical record number and "GE junction biopsy" are two pieces of rees-white mucosa-covered tissue that measure 0.4 x 0.2 x 0.2 cm in aggregate. [facility] specimen is submitted in toto following filtration i n cassette B1. DLR/ew MICROSCOPIC A. Section shows gastric ant ral and oxyntic mucosa. The antral mucosa shows mild chronic inactive gastritis with incomplete intestinal metaplasia. No active inflammation is present. The oxyntic mucosa s [facility] DES[facility] hows no significant inflamma tion. Warthin stain for Helicobacter pylori is negative. There is no dysplasia or carcinoma. [facility] B. Section shows gastroesoph ageal junctional mucosa and squamous (eosphageal) mucosa. The squamous (esophageal) component of GE junctional mucosa shows intercellular edema and elongated vascular papilla e and the columnar mucosa sh ows chronic inflammation with rare neutrophils. No goblet cell metaplasia is seen. SPECIAL STUDIES The interpretation of this c ase included the use of immunohistochemistry or special stains. [facility] Control Slides Examined: In -house known positive controls were evaluated along with the test tissue. These control slides run alongside of the patients sample show appropriate staining. [facility] antony and negative controls when available are evaluated Immunohistochemistry technic al testing was performed at [facility] Laboratory where it was developed and its performance characteristics were determined. It has not be en cleared or approved by [facility] U.S. Food and Drug Administration. The FDA has determined that such clearance or approval is not necessary. The test is used for clinical purposes. It should not be regarde d as investigational or for research. This laboratory is certified under the Clinical Laboratory Improvement Amendments of 1988 (CLIA-88) as qualified to perform high complexity clinical laboratory testing. Gross assessment [facility] ST KE 'S was performed at [facility] Pathology, [address] [place] [address], [place] [address], Technical [facility] component was [facility] performed at Pathology, [address] [place] [id number], Professional [facility] component was [facility] performed at Pathology, [address] [place] [id number], Specimen Tissue - Gastric biopsy sample (specimen ) Tissue specimen (specimen) - Biopsy, Gas troesophageal Junction Performing Organization Address City/State/Zipcode Phone Number [facility] [address] [phone] CENTER Manual Differential (05/27/2020 3:40 AM CDT) % Neutros (manual) 63 % [facility] % Lymphs (manual) 17 % [facility] % Monos (manual) 4 % [facility] % Eos (manual) 3 % [facility] % Baso (manual) 1 % [facility] % Metamyelo (manual) 3 (H) 0 - 0 % [facility] % Bands (manual) 3 0 - 10 % [facility] % Atypical Lymphs 6 (H) 0 - 0 % [facility] # Neutros (manual) 7.12 1.80 - 8.00 [facility] # Lymphs (manual) 1.92 1.48 - 4.50 [facility] # Monos (manual) 0.45 0.00 - 1.30 [facility] # Eos (manual) 0.34 0.00 - 0.50 [facility] # Baso (manual) 0.11 0.00 - 0.20 [facility] # Metamyelo (manual) 0.34 (H) 0.00 - 0.00 [facility] # Bands (manual) 0.3 0.0 - 0.8 K/L [facility] # Atypical Lymphs 0.68 (H) 0.00 - 0.00 [facility] Total Counted 100 [facility] Bands plus Segmented 7.46 [facility] nRBC (manual) 1 (H) 0 - 0 /100 WBC [facility] WBC Morphology Normal [facility] Platelet Morphology Normal [facility] Anisocytosis 1+ few [facility] Ovalocytes 1+ few [facility] Specimen Blood Performing Organization Address City/State/Zipcode Phone Number [facility] [address] [place] [address] C[place] TRANSFUSION SERVICE REPORT - SCAN (05/26/2020 6:21 PM CDT)Only the most recent of2 resultswithin the time period is included. Narrative Performed At This result has an attachment that is no t available. Hepatitis C PCR, Quantitative (05/26/2020 12:26 PM CDT) HCV PCR, HCV RNA not HCV RNA not [facility] Quantitative detected detected [facility] Specimen Blood Narrative Performed At This test uses a Real-Time Polymerase Chain [facility] Reaction (RT-PCR) methodology and was performed using [employer] Ampliprep/BAIRON TaqMan HCV test kit version 2.0 ([employer]). Reportable range for this assay is 15 - 100,000,000 IU per mL (1.18 - 8.00 Log IU/mL). Performing Organization Address City/State/Zipcode Phone Number [facility] [address] [place] [address] CENTER TSH/Free T4 If Indicated (05/25/2020 7:14 PM CDT) Pathologist Sig nature TSH 3.581 0.350 - 4.940 uIU/mL [facility] Specimen Blood Narrative Performed At Visual Manager EVELYNE - JR Crump [facility] Performing Organization Address City/State/Zipcode Phone Number [facility] [address] [place] [address] CENTER Prothrombin time/INR (05/25/2020 11:42 AM CDT) Pathologist Sig nature Protime 14.6 (H) 11.9 - 14.2 seconds [facility] INR 1.17 <=5.90 [facility] Specimen Blood Narrative Performed At Effective 01/16/2019: PT Reference Range [facility] Change New: 11.9-14.2 Previous: 11.7-14.7 RECOMMENDED COUMADIN/WARFARIN INR THERAPY RANGES STANDARD DOSE: 2.0-3.0 Includes: PROPHYLAXIS for venous thrombosis, systemic embolization; TREATMENT for venous thrombosis and/or pulmonary embolus. HIGH RISK: Target INR is 2.5-3.5 for patients wiht mechanical heart valves. Performing Organization Address City/[facility] Phone Number [address] [address] C[place] Lactate dehydrogenase (LDH) (05/25/2020 11:42 AM CDT) Pathologist [facility] LDH 341 (H) 125 - 220 U/L [facility] Specimen Blood Narrative Performed At Visual Manager ID - JR Crump [facility] Performing Organization Address [facility] Phone Number [address] [address] C[place] Peripheral Blood Smear - Path Review (05/25/2020 3:42 AM CDT) Pathologist Review Macrocytic anemia, [facility] anisopoikilocytosis, MED[facility]ENTER with rare schistocytes (0.8 per HPF). WBCs with mild left shift, including occasional myeloid precursors, no blasts seen. Few hypersegmented neutrophils. Thrombocytopenia with unremarkable morphology. Pathologist: Maddie Leon [facility]ou[facility] M.D [facility] Specimen Blood Performing Organization Address City/[facility] Phone Number [address] [address] C[place] Troponin I (05/25/2020 3:42 AM CDT)Only the most recent of5 resultswithin the time period is included. Pathologist Sig nature Troponin I 0.46 (HH) 0.00 - 0.03 ng/mL [facility] Specimen Blood Narrative Performed At Troponin I (TnI) levels must be interpreted [facility] in the context of the [...] acidosis, acute neurological disease, and persistent tachyarrhythmia. Visual Manager ID - DB Performing Organization Address [facility] Phone Number [address] [address] C[place] Lactic acid, venous (05/25/2020 3:42 AM CDT)Only the most recent of3 results within the time period is included. Pathologist Sig formerly [facility] Lactate, Venous 0.42 (L) 0.50 - 2.20 [facility] mmol/L [facility] Specimen Blood Narrative Performed At Visual Manager ID - DB [facility] Performing Organization Address [facility] Phone Number [address] [address] C[place] Reticulocyte count (05/25/2020 3:42 AM CDT) Pathologist Sig nature % Retic 1.5 0.5 - 1.8 % [facility] Specimen Blood Narrative Performed At Visual Manager ID - [id number] [facility] Performing Organization Address [facility] Phone Number [address] [address] C[place] Iron, TIBC, % sat. (without ferritin) (05/25/2020 3:41 AM CDT) Pathologist Sig nature Iron 118.0 40.0 - 160.0 [facility] ug/dL [facility] TIBC 170 (L) 250 - 450 ug/dL [facility] Iron % Saturation 69 (H) 20 - 55 % [facility] Specimen Blood Narrative Performed At Visual Manager ID - MARQUIS [facility] Performing Organization Address [facility] Phone Number [address] [phone] [place] Haptoglobin (05/25/2020 3:41 AM CDT) Pathologist Sig nature Haptoglobin 172 14 - 258 mg/dL [facility] Specimen Blood Narrative Performed At Visual Manager ID - JR Crump [facility] Performing Organization Address [facility] Phone Number [address] [address] C[place] Ferritin (05/25/2020 3:41 AM CDT) Pathologist Sig nature Ferritin 10,294.32 (H) 5.00 - 275.00 [facility] ng/mL [facility] Specimen Blood Narrative Performed At Visual Manager ID - MARQUIS [facility] Performing Organization Address [facility] Phone Number [address] [address] [place] XR chest 1 view portable / bedside (05/25/2020 2:00 AM CDT)Only the most recent of2 resultswithin the time period is included. Specimen Narrative Performed At FINAL REPORT [facility] RAD, CHEST, 1 VIEW, NON DEPT INDICATION: pulmonary edema COMPARISON: Prior day's exam FINDINGS: Portable frontal view of the c hest. IMPRESSION: Support Lines: Stable. Lungs and pleura: Unchanged venous conge stion and interstitial opacities. No consolidation or effusion. No pneumothorax. Heart and mediastinum: Stable contours. Additional findings: None. Signed: Sally Renae MD Report Verified Date/Time: 05/25/2020 04:42:11 Procedure Note Interface, External Ris In [...] 4:42:11 Performing Organization Address City/State/Zipcode Phone Number [employer] US testicular (scrotum) (05/25/2020 1:24 AM CDT) Specimen Narrative Performed At FINAL REPORT [employer] TECHNIQUE: Grayscale, color Doppler, and spectral Doppler [...] Kwasi Verde MD Report Verified Date/Time: 05/25/2020 08:58:57 Procedure Note Interface, External Ris In [...] Date/Time: 05/25/2020 0 8:58:57 Performing Organization Address City/State/Zipcode Phone Number [facility] Hepatitis B surface antigen (05/24/2020 8:40 PM CDT) Pathologist Sig nature HBsAg Screen Nonreactive Nonreactive [facility] Specimen Blood Narrative Performed At Specimen is considered negative for HBsAg. [facility] Performing Organization Address City/[facility] Phone Number [facility] [address] [place] [address] CENTER Drug Test, General Toxicology, Urine (05/24/2020 6:40 PM CDT) Acetone(Quest) None Detected [facility] Methanol([facility]) None Detected [facility] Drug Test,Genrl see note [facility] Tox,U Comment: [facility]POR[facility] The following compounds were detected: Cotinine (Nicotine Metabolite) Morphine Acetaminophen Hydromorphone Hydrocodone Benzoylecgonine (Cocaine Metabolite) Cyclobenzaprine For a list of compounds and limits of detection go to: http://education.[employer].Centro/faq/XPT874 ISOPROPANOL None Detected [facility] ETHANOL None Detected [facility] Comment: INC[facility]PORATED Volatile Limit of Detectio n: 5 mg/dL This test was developed and its analytical performance characteristics have been determined by [place], [place]. It has not been cleared or approved by the U.S. Food and Drug Administration. This assay has been validated pursuant to the CLIA regulations and is used for clinical purposes. Specimen Urine Narrative Performed At Performing Lab [facility] [address] [place], [address] [facility] [place] [address] Mckenna Lopez MD, PhD Performing Organization Address City/[facility] Phone Number [employer] [address] INCORPORATED [address] [facility] B-type Natriuretic Factor (BNP) (05/24/2020 5:32 PM CDT)Only the most recent of 2 resultswithin the time period is included. Pathologist Juan jacobo BNP 202 (H) 0 - 100 pg/mL [facility] Specimen Blood Narrative Performed At Visual Manager ID - ROSIANG [facility] Performing Organization Address City/State/Zipcode Phone Number [facility] [address] [place] [address] CENTER 2D Echo W/Doppler(CW/PW/Color) (05/24/2020 9:17 AM CDT) Pathologist Juan jacobo Ejection Fraction [facility] Specimen Narrative Performed At Transthoracic Echocardiography Report (T TE) [facility] Demographics Patient Name THIERRY PADILLA Date of Study 05/24/2020 KYLIE Gender Male Visit Number [id number] Race Unknown Room Number 7217 Number Date of 1965 Referring Physician Age 55 year(s) 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 No apparent segmental wall motion abnormalities. Estimated LVEF by qualitative assessment is increased (>60%) . Grade 1 diastolic dysfunction (impaired relaxation and low-normal LA pres sure). Left Atrium LA size is normal . Right Ventricle Normal right ventricle structure and function. Right Atrium Normal righ t atrium. Aortic Valve Normal AoV structure and function. Mitral Valve Normal MV structure and function. Tricuspid Valve A trace of tricuspid regurgitation. Unable to estimate peak systolic PA pressure; inadequate TR velocity signal. Pulmonic Valve Normal PV structure and function by limited views and Doppler. Aorta Aortic root size (SInus of Valsalva diameter) is norm al . Pericardium No evidence of pericardial effusion. IVC/SVC/PA/PV/Pleural The estimated RA pressure by IVC dynamics 0-5mmHg . Chambers/Structures Left Atrium LA Volume: 53.18 ml LA Area: 19.74 cm^2 LA Vol. Index: 30 ml/m^2 Left Ventricle LVIDd: 4.76 cm LVEDV:105.61 m l LV Septum Diastolic: 0.88 cm LV PW Diastolic: 0.89 cm LVOT Diameter: 2.01 cm Right Ventricle RVOT VTI: 23.09 cm Doppler/Quantitative Measurements Mitral Valve MV Peak E-Wave: 0.69 m/s MV Peak A-Wave: 0.94 m/s E/A Ratio: 0.74 Peak Gradient: 1.93 mmHg Deceleration Time: 100.8 msec MV Antonio. 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 Clinical History HGB 8.1 [...] T CI: 3.06 l/min/m^2 Performing Organization Address City/[facility]/Zipcode Phone Number [facility] CPACS ABORH, manual (05/24/2020 3:57 AM CDT) Pathologist Sig nature ABO Grouping O [facility] DICAL [place] Rh Factor POS [facility] Specimen Blood Performing Organization Address City/[facility] Phone Number [address] [address] Vitamin B12 and Folate (05/24/2020 3:48 AM CDT) Pathologist Sig nature Vitamin B12 237 213 - 816 pg/mL [facility] Folate 4.00 (L) >=7.00 ng/mL [facility] Specimen Blood Narrative Performed At Visual Manager ID - MARQUIS [facility] Performing Organization Address City/[facility] Phone Number [address] [address] CENTER HIV-1 Antigen with HIV-1/2 Antibody (05/24/2020 3:48 AM CDT) Pathologist Sig formerly [facility] HIV-1 Antigen with Nonreactive Nonreactive [facility] HIV 1&2 Antibody [facility] Specimen Blood Performing Organization Address City/[facility] Phone Number [address] [address] CENTER Hemoglobin A1c (05/24/2020 3:48 AM CDT) Pathologist Sig formerly [facility] Hemoglobin A1C 5.8 4.3 - 6.1 % [facility] Specimen Blood Performing Organization Address [facility] Phone Number [address] [address] CENTER Blood Culture - Routine (Right Venipuncture) (05/24/2020 3:34 AM CDT)Only the most recent of2 resultswithin the time period is included. Pathologist Sig nature Result No growth in 5 days [facility] Specimen Blood - Entire right upper arm (body str ucture) Performing Organization Address City/State/Zipcode Phone Number [facility] [address] [place] [address] CENTER SARS-CoV2/RT-PCR (Symptomatic ONLY) (05/24/2020 2:33 AM CDT)Only the most recent of2 resultswithin the time period is included. SARS-COV2/RT-PCR Negative Not Detected, [facility] Negative, See [facility] external report CENTER for linked test SARS-COV-2 [facility] PERFORMING LAB [facility] Specimen Other - Nasopharyngeal wall structure (b alicia structure) Narrative Performed At Negative results do not preclude SARS-CoV-2 [facility] infection and should not be [...] the Act. Fact Sheet for Healthcare Providers: https://www.[employer].Centro/Documents/Xpert%20Xpre ss%20SARS%20CoV-2/Fact%20Sheets/529-2996%20SAR S-COV-2%20HEALTHCARE%20PROVIDERS%20FACT%20SHEE T.pdf Fact Sheet for Healthcare Patients: https://www.[employer]/Documents/Xpert%20Xpre ss%20SARS%20CoV-2/Fact%20Sheets/302-3801%20SAR S-COV-2%20PATIENT%20FACT%20SHEET.pdf Performing Laboratory: [facility] [address] [place] [address]. [place] [address] Performing Organization Address City/[facility]/Zipcode Phone Number [facility] [address] [place], [place] [id number] [place] Blood gas, venous (05/24/2020 1:28 AM CDT) Pathologist Sig nature pH, Raquel 7.27 (L) 7.32 - 7.42 [facility] pCO2, Raquel 26 (L) 41 - 51 mmHg [facility] pO2, Raquel 63 (H) 25 - 40 mmHg [facility] O2 Sat, Raquel 89.7 (H) 40.0 - 70.0 % [facility] HCO3, Raquel 12 (L) 21 - 29 mmol/L [facility] Base Excess, Raquel -14.0 (L) -2.0 - 3.0 [facility] mmol/L [facility] Patient Temperature 37.0 C [facility] FIO2 100.0 % [facility] Specimen Blood Performing Organization Address City/[facility] Phone Number [facility] [address] [place] [address] [place] EKG-SCANNED (05/24/2020) Narrative Performed At This result has an attachment that is no t available. Ordered by an unspecified provider. after 06/17/2019 Insurance Payer Benefit Plan / Subscriber ID Effective Dates Phone Addre ss Type Group MEDICARE MEDICARE A B [id number] 2020-Presen Medicare t CDC REVIEW CDC REVIEW [id number] 2020-[place] [address] [place] [address] MEDICAID MEDICAID OF [id number] 2020-Tristin cosby [place] t Advance Directives For more information, please contact: [phone] Code Status Date Activated Date Inactivated Comments Full Code 05/24/2020 1:02 AM 06/03/2020 4:31 PM This code status was determined by: Patient
--- OUTSIDE RECORDS SUMMARY | 2020-06-17 08:25 | XMS REPORT | Summary of Care ---
:1965 Author Organization [facility] - [facility] Address [address] [place] [address] Care Team Providers Name Role Phone Correction, Dept Of Primary Care Provider Reason for Referral Radiology Services (STAT) Status Reason Specialty Diagnoses / Referred By Referred To Procedures Contact Contact New Request Diagnostic Diagnoses Other complication of vascular dialysis catheter, initial encounter Renata Delgadillo Radiology Procedures Chest 1 View J, DO [address] [place], [place] [id number] Reason for Visit Reason Comments Other dialysis cath issue Auth/Cert Status Reason Specialty Diagnoses / Referred By Referred To Procedures Contact Contact Emergency Medicine Adc Em ergency Dept [address] [phone] Fax: Encounter Details Date Type Department Care Team Description 05/08/2020 Emergency ADC-Emergency Renata Delgadillo Other c omplication of Department DO vascular dialysis [address] catheter, [place] [address] encounter (Primary Dx) [place] [address] [phone] Allergies No Known Allergiesdocumented as of this [...] Delgadillo DO - 05/08/2020 2:31 PM CDT [facility] Emergency Department Note Patient Name: Cr Orellana Date of : 1965 55 year old male Treatment Room: NH4/NH4 Primary Care Physician: JESSE DEPT OF CORRECTION Patient Escorted by: Law enforcement [8] Mode of Arrival: Law enforcement [6] EMS Treatment Prior to ED Arrival: COMPOSITION STONE APPLICATOR treatment: Medication (comment) COMPOSITION STONE APPLICATOR treatment comments: abx given today Travel and [...] for eval. Is currently incarcerated with [facility] for 2- 3 days. C/o feeling weak [...] is ESRD patient. Patient is a [facility] inmate so will need transfer to [facility] or . covid is negative. Pending admission. 1720 - patient accepted to [facility] for continued management. MDM: Coding Diagnosis/Impression: ICD-10-CM ICD-9-CM 1. Other complication of vascular dialysis catheter, initial encounter T82.49XA 996.73 Disposition/Condition: ED Disposition None Discharge Medications: Patient's Medications No medications on file Follow-up: Electronically signed by: Renata Delgadillo DO 05/08/2020 3:02 PM documented in this encounter Miscellaneous Notes ED Nurse Note - Erika Miguel RN - 05/08/2020 6:26 PM CDTPatient transferred to [facility] for diagnosis of Central line infection. [...] complication o f Results for this PANEL (68467) PM CDT vascular dialysis procedure are in [...] CDT) PROTIME PATIENT 12.6 12.0 - 14.7 [facility] LABORATORY INR 1.0Comment: Normal [facility] INR <1.1; Warfarin [facility] Therapeutic range LABORATORY 2.0 to 3.0 or 2.5 to 3.5, depending upon the indications. Specimen Blood - VENOUS Performing Organization Address City/State/Zipcode Phone Number [facility] CLIA: [id number] [place] [address] CBC with Differential (05/08/2020 3:51 PM CDT) Pathologist Sig nature WBC 7.39 4.20 - 10.70 [facility] 10*3/L [facility] LABORATORY RBC 2.79 (L) 4.26 - 5.52 [facility] 10*6/L [facility] LABORATORY HGB 9.1 (L) 12.2 - 16.4 g/dL [facility] HCT 26.8 (L) 38.4 - 49.3 % [facility] MCV 96.1 (H) 81.7 - 95.6 fL [facility] MCH 32.6 26.1 - 32.7 pg [facility] MCHC 34.0 31.2 - 35.0 g/dL [facility] RDW-SD 63.0 (H) 38.5 - 51.6 fL [facility] RDW-CV 17.8 (H) 12.1 - 15.4 % [facility] LABORAT[facility] PLT 139 (L) 150 - 328 [facility] 10*3/L [facility] LABORATORY MPV 9.2 (L) 9.8 - 13.0 fL [facility] NRBC/100 WBC 0.0 0.0 - 10.0 /100 [facility] LAB[facility] NRBC x10^3 <0.01 10*3/L [facility] SEG % 60 33 - 76 % [facility] BAND % 4 (H) 0 - 1 % [facility] LYMPH % 30 14 - 54 % [facility] MONO % 4 0 - 4 % [facility] EOS % 2 0 - 3 % [facility] ANC 4.70 1.99 - 6.95 [facility] 10*3/uL HOSPITAL LABORATORY TOXIC CHANGES Present (A) [facility] Specimen Blood - VENOUS Performing Organization Address City/State/Zipcode Phone Number [facility] CLIA: [id number] [place] [address] Chest 1 View (05/08/2020 3:43 PM CDT) Specimen Impressions Performed At PACS/VR/DOSE The double-lumen catheter (dialysis catheter) is in sa tisfactory position. Mild pulmonary vascular congestion. Preliminary Report Dictated by Resident: uSdhakar Batres MD., have reviewed this study and [...] nature MAGNESIUM 1.8 1.7 - 2.4 mg/dL [facility] LABOR[facility] Specimen Blood - VENOUS Performing Organization Address City/[facility]/Zipcode Phone Number [facility] CLIA: [id number] [place] [address] Troponin I (05/08/2020 3:31 PM CDT) Pathologist Sig nature TROPONIN I 0.029 <=0.034 ng/mL [facility] LABOR[facility] Specimen Blood - VENOUS Narrative Performed At Equal or Less than 0.034 ng/ml---Normal [facility] Note: Cardiac troponin begins to [...] patient's use of biotin. Performing Organization Address [facility] Phone Number [facility] CLIA: [id number] [place], [place] [id number] LABORATORY [address] [facility] Hepatic Function Panel (ALB, T.PRO, BILI T, BU/BC, ALT, AST, ALK PHOS) (05/08/2020 3:31 PM CDT) Pathologist Sig nature TOTAL BILI 0.4 0.1 - 1.1 mg/dL [facility] BILI UNCON 0.4 0.1 - 1.1 mg/dL [facility] BILI CONJ 0.0 0.0 - 0.3 mg/dL [facility] T PROTEIN 7.4 6.3 - 8.2 g/dL [facility] ALBUMIN 4.0 3.5 - 5.0 g/dL [facility] ALK PHOS 70 34 - 122 U/L [facility] ALTv 14 5 - 50 U/L [facility] AST(SGOT) 31 13 - 40 U/L [facility] Specimen Blood - VENOUS Performing Organization Address [facility] Phone Number [facility] CLIA: [id number] [place] [address] LABORATORY [address] [facility] Basic Metabolic Panel (NA, K, CL, CO2, GLUCOSE, BUN, CREATININE, CA) (05/08/2020 3:31 PM CDT) NA 135 135 - 145 [facility] mmol/L [facility] LABORATORY K 4.1 3.5 - 5.0 [facility] mmol/L [facility] LABORATORY CL 97 (L) 98 - 108 mmol/L [facility] CO2 TOTAL 27 23 - 31 mmol/L [facility] AGAP 11 2 - 16 [facility] BUN 25 (H) 7 - 23 mg/dL [facility] GLUCOSE 181 (H) 70 - 110 mg/dL [facility] CREATININE 7.38 (H) 0.60 - 1.25 [facility] mg/dL [facility] LABORATORY CALCIUM 8.9 8.6 - 10.6 [facility] mg/dL [facility] LABORATORY eGFR Calculation 7.7 mL/min/1.73m2 [facility] (Non-[facility] LABORATORY [place]ian) eGFR Calculation 9.3 mL/min/1.73m2 [facility] () [facility] LABORATORY Specimen Blood - VENOUS Narrative Performed At Association of Glomerular Filtration Rate (GFR) [facility] LABORATORY and Staging of Kidney Disease* [...] tests). Performing Organization Address City/State/Zipcode Phone Number [facility] CLIA: [id number] [place] [address] COVID-19 (ID NOW RAPID TESTING) (05/08/2020 3:14 PM CDT) SARS-CoV-2 Rapid ID Not Detected Not Detected [facility] LABORATORY Specimen Swab - NASOPHARYNGEAL SWAB Narrative Performed At [facility] COVID-19 Assay is an isothermal nucleic [facility] LABORATORY acid amplification test intended for the qualitative detection of nucleic acid from SARS-CoV-2 viral RNA in nasopharyngeal (TOWNSHIP CLERK) specimens. It is used under Emergency Use [...] indicated. Performing Organization Address City/State/Zipcode Phone Number [facility] CLIA: [id number] [place] [address] documented in this encounter Visit Diagnoses [...] ype Group Dates [employer] [id number] 2020-[address] [place] [address] [place] [address] [facility] [id number] 2020-Pres [place] Agency [place] [phone] documented as of this encounter
--- OUTSIDE RECORDS SUMMARY | 2020-06-17 08:31 | XMS REPORT | Continuity of Care Document ---
:1965 Author Organization [facility] t Address [address] [place] [address] Care Team Providers Name Role Phone Kwaku Miguel MD Attending Clinician [phone] Cristopher LOWERY, Donna Attending Clinician David LOWERY, P. Attending Clinician Akilah Matthews MD Attending Clinician Mustapha LOWERY, Shea Attending Clinician Bello LOWERY, Akbar Attending Clinician Ariana LOWERY, Yaakov Attending Clinician KWAKU MIGUEL Attending Clinician Unavailable Verónica Delgadillo DO Attending Clinician KWAKU MIGUEL Admitting Clinician Unavailable Payers Payer Name Policy Type Policy Effective Date Expiration Date Sour ce Number MEDICAREMEDICARE A [id number] 2020 ANALILIA Fontanez yesenia Donal [id number] 2019- 00:00:00 - Medical PresentMedicare Center [facility] REVIEWCDC [id number] ANALILIA Silva [id number]/ 00:00:00 [place] [address] MEDICAIDMEDICAID OF [id number] 2020 ANALILIA Estee patterson Donal [id number]/ 00:00:00 - Medical 0-PresentMedicaid Center Problems Condition Condition Condition Status Onset Resolution Last Treating Co mments Source Name Details Category Date Date Treatment Clinician Date Hyperkalem Hyperkalem Disease Active 2019-[address] [facility] 0[facility] 00 [place] PINA (acute PINA (acute Disease Active [facility] kidney [facility] Allergies, Adverse Reactions, Alerts Allergy Allergy Status Severity Reaction(s) Onset Inactive Treating Comm ents Source Name Type Date Date Clinician Gabapent Drug Active 2019-[address] [facility] [facility] Allergy 0-04 [facility] 00 [place] Social History Social Habit Start Date Stop Date Quantity Comments Source Sex Assigned [facility] Exposure to SARS-CoV-2 Not sure [facility] (event) [place] Smoking Status Start Date Stop Date Source Former smoker 2020-05-27 00:00:00 2020-05-27 00:00:00 [facility] Ordered Filled Start Stop Current Ordering Indication Dosage Frequency Signature Comments Components Source Medication Medication Date Date Medication? Clinician (SIG) Name Name cyanocobala 2019-08- Yes 1000ug QD Take [address] min, 0-14 10-14 tablet [facility] - vitamin 00:00: 23:59 (1,000 mcg Med ical B-12, 1000 00 :00 total) by Cent er MCG tablet mouth daily. folic acid 2019-08- Yes 1mg QD Take [address] (FOLVITE) 1 0-14 10-14 tablet (1 Tosha kes - MG tablet 00:00: 23:59 mg total) Me dical 00 :00 by mouth Center daily. sevelamer 2019-08- Yes 1600mg Take [address] (RENVELA) 0-14 10-14 tablets [facility] - 800 mg 00:00: 23:59 (1,600 mg Medic al tablet 00 :00 total) by Center mouth 3 (three) times daily with meals. pantoprazol 2019-08 Yes 40mg Q.5D Take [address] e 0-13 tablet (40 [facility] - (PROTONIX) 00:00: mg total) Me dical 40 MG 00 by mouth 2 Center tablet (two) times daily. atorvastati 2019-08- Yes 20mg QD Take [address] n (LIPITOR) 0-13 10-13 tablet (20 L ukes - 20 MG 00:00: 23:59 mg total) Medica l tablet 00 :00 by mouth Center nightly. carvediloL 2019-08- Yes 25mg Q.5D Take [address] (COREG) 25 0-13 10-13 tablet (25 Tosha kes - MG tablet 00:00: 23:59 mg total) Me dical 00 :00 by mouth 2 Center (two) times daily. acetaminoph 2019-08 2020- No 1{tbl} Take [address] en-codeine 0-13 -23 tablet by [place] [facility] - (TYLENOL 00:00: 23:59 mouth Medical #3) 300-30 00 :00 every 6 Center mg per (six) tablet hours as needed for Pain for up to 10 days. Max Daily Amount: 4 tablets Immunizations Ordered Immunization Filled Immunization Date Status Commen ts Source Name Name Influenza Four-QIV 2020-05-25 Completed [facility] PF 3YR+ 00:00:00 Medical Center Vital Signs Vital Name Observation Time Observation Value Comments Source Systolic blood 2020-06-03 11:45:00 129 mm[Hg] [facility] Diastolic blood 2020-06-03 11:45:00 81 mm[Hg] [facility] Heart rate 2020-06-03 11:45:00 80 /min [facility] Body temperature 2020-06-03 11:45:00 36.72 [facility] Respiratory rate 2020-06-03 11:45:00 19 /min [facility] Oxygen saturation in 2020-06-03 11:45:00 97 /min [facility] Arterial blood by Medical Ce nter Pulse oximetry Body weight 2020-06-03 04:52:00 69.9 kg [facility] BMI 2020-06-03 04:52:00 24.88 kg/m2 [facility] Body height 2020-05-24 00:30:00 167.6 cm [facility] Procedures Procedure Date / Time Performed Performing Clinician Sourc e HEMODIALYSIS INPATIENT 2020-06-03 12:01:00 Marlo Hernandez [facility] MAGNESIUM 2020-06-03 04:07:00 Sergema [facility] PT/APTT 2020-06-03 04:07:00 [facility] 2020-06-03 04:07:00 Kanwal [facility] CALCIUM, IONIZED 2020-06-03 04:07:00 [facility] COMPREHENSIVE METABOLIC 2020-06-03 04:07:00 [facility] PHOSPHORUS 2020-06-03 04:07:00 [facility] CBC W/PLT COUNT & AUTO 2020-06-03 04:07:00 Kanwal [facility] (CELLAVISION MANUAL DIFF) 2020-06-03 04:07:[address] [facility] PREPARE LEUKO-REDUCED RBC 2020-06-02 23:54:00 Delia Matthews [facility] BASIC METABOLIC PANEL (7) 2020-06-02 03:56:00 Kanwal [facility] MAGNESIUM 2020-06-02 03:56:00 Kanwal [facility] PT/APTT 2020-06-02 03:56:00 Kanwal [facility] HEPATIC FUNCTION PANEL 2020-06-02 03:56:00 Kanwal [facility] CBC W/PLT COUNT & AUTO 2020-06-02 03:56:00 Kanwal [facility] (CELLAVISION MANUAL DIFF) 2020-06-02 03:56:[address] [facility] TRANSFUSE LEUKO-REDUCED 2020-06-01 22:33:[address] [facility] RED BLOOD CELLS [facility] POCT-GLUCOSE METER 2020-06-01 22:11:00 Delia Matthews [facility] HEPATITIS B SURFACE 2020-06-01 19:23:00 Marlo Hernandez [facility] BASIC METABOLIC PANEL (7) 2020-06-01 04:32:00 Serfelixbelgica [facility] MAGNESIUM 2020-06-01 04:32:00 Serenibelgica [facility] PT/APTT 2020-06-01 04:32:00 Serenibelgica [facility] HEPATIC FUNCTION PANEL 2020-06-01 04:32:00 [facility] CBC W/PLT COUNT & AUTO 2020-06-01 04:32:00 [facility] (CELLAVISION MANUAL DIFF) 2020-06-01 04:32:00 [facility] HEMOGLOBIN AND HEMATOCRIT 2020-05-31 09:50:00 Delia Matthews [facility] TYPE AND SCREEN, 2020-05-31 09:50:00 Delia Matthews [facility] BASIC METABOLIC PANEL (7) 2020-05-31 05:34:00 Sergema [facility] MAGNESIUM 2020-05-31 05:34:00 [facility]TT 2020-05-31 05:34:00 [facility]EL 2020-05-31 05:34:00 [facility] CBC W/PLT COUNT & AUTO 2020-05-31 05:34:00 [facility] (CELLAVISION MANUAL DIFF) 2020-05-31 05:34:00 [facility] BASIC METABOLIC PANEL (7) 2020-05-30 04:39:00 [facility]ibel[facility]ica [facility] MAGNESIUM 2020-05-30 04:39:00 Serenibelgica [facility] PT/APTT 2020-05-30 04:39:00 [facility] 2020-05-30 04:39:00 Sergema [facility] CBC W/PLT COUNT & AUTO 2020-05-30 04:39:00 Sergema [facility] (CELLAVISION MANUAL DIFF) 2020-05-30 04:39:00 Sergema [facility] BASIC METABOLIC PANEL (7) 2020-05-29 04:50:00 Sergema [facility] MAGNESIUM 2020-05-29 04:50:00 Sergema [facility] PT/APTT 2020-05-29 04:50:00 Sergema [facility] HEPATIC FUNCTION PANEL 2020-05-29 04:50:00 Sergema [facility] PHOSPHORUS 2020-05-29 04:50:00 Christofer Concepcion [facility] CBC W/PLT COUNT & AUTO 2020-05-29 04:50:00 Sergema [facility] (CELLAVISION MANUAL DIFF) 2020-05-29 04:50:00 Kanwal [facility] HEPATITIS PANEL, ACUTE 2020-05-28 14:19:00 CassieDelia wei [facility] D-DIMER 2020-05-28 03:59:00 Ernie [place] Akilah [facility] BASIC METABOLIC PANEL (7) 2020-05-28 03:59:00 Sergema [facility] MAGNESIUM 2020-05-28 03:59:00 Sergema [facility] PT/APTT 2020-05-28 03:59:00 Sergema [facility] HEPATIC FUNCTION PANEL 2020-05-28 03:59:00 Sergema Sonido [facility] COMPREHENSIVE METABOLIC 2020-05-28 03:59:[address] [facility] CBC W/PLT COUNT & AUTO 2020-05-28 03:59:00 SerSonido ribeiro [facility] S [facility] DIFFERENTIAL [facility] (CELLAVISION MANUAL DIFF) 2020-05-28 03:59:[address] [facility] REPORT OF PROCEDURE - 2020-05-27 08:30:[address] [facility] ENDOSCOPY [facility] TISSUE EXAM 2020-05-27 08:20:00 Myrna Monsalve [facility] UPPER ENDOSCOPY,BIOPSY 2020-05-27 07:59:00 Bello Myrna [facility] BASIC METABOLIC PANEL (7) 2020-05-27 03:40:[address] [facility] MAGNESIUM 2020-05-27 03:40:00 Sergema [facility] PT/APTT 2020-05-27 03:40:00 Sergema [facility] HEPATIC FUNCTION PANEL 2020-05-27 03:40:00 Kanwal Sonido [facility] CBC W/PLT COUNT & AUTO 2020-05-27 03:40:00 Sergema Sonido [facility] S [facility] DIFFERENTIAL [facility] (MANUAL DIFFERENTIAL) 2020-05-27 03:40:00 Delia Matthews [facility] TRANSFUSION SERVICE 2020-05-26 18:21:41 Christopher Rivas [facility] - SCAN [facility] HEPATITIS C PCR, 2020-05-26 12:26:00 Vee Hernandez [facility] D-DIMER 2020-05-26 12:26:00 Vee Hernandez [facility] BASIC METABOLIC PANEL (7) 2020-05-26 03:50:[address] [facility] MAGNESIUM 2020-05-26 03:50:00 Sergema [facility] PHOSPHORUS 2020-05-26 03:50:00 [facility] 2020-05-26 03:50:00 [facility] HEPATIC FUNCTION PANEL 2020-05-26 03:50:00 [facility] CALCIUM, IONIZED 2020-05-26 03:50:00 [facility] COMPREHENSIVE METABOLIC 2020-05-26 03:50:00 Marlo Hernandez [facility] CBC W/PLT COUNT & AUTO 2020-05-26 03:50:00 [facility] (CELLAVISION MANUAL DIFF) 2020-05-26 03:50:00 [facility] PREPARE LEUKO-REDUCED RBC 2020-05-25 23:54:00 [facility] TSH/FREE T4 IF INDICATED 2020-05-25 19:14:00 Vee Hernandez [facility] HEMOGLOBIN AND HEMATOCRIT 2020-05-25 19:14:00 Layo Ley [facility] TRANSFUSION SERVICE 2020-05-25 18:01:32 Christopher Rivas [facility] HEMOGLOBIN AND HEMATOCRIT 2020-05-25 11:42:00 José Manuel Leyegan [facility] LACTATE DEHYDROGENASE 2020-05-25 11:42:00 Layo Ley [facility] (LDH) [facility] PROTHROMBIN TIME/INR 2020-05-25 11:42:00 José Manuel Leyegan [facility] D-DIMER 2020-05-25 11:42:00 [place] [facility] CBC W/PLT COUNT & AUTO 2020-05-25 11:42:00 [place] [facility] TROPONIN I 2020-05-25 03:42:00 Sergema [facility] MAGNESIUM 2020-05-25 03:42:00 [facility]OS[facility]US 2020-05-25 03:42:00 [facility] HEPATIC FUNCTION PANEL 2020-05-25 03:42:00 [facility] CALCIUM, IONIZED 2020-05-25 03:42:00 [facility] LACTIC ACID, VENOUS 2020-05-25 03:42:00 Kanwal [facility] COMPREHENSIVE METABOLIC 2020-05-25 03:42:00 [facility] RETICULOCYTE COUNT 2020-05-25 03:42:00 [facility] PERIPHERAL BLOOD SMEAR - 2020-05-25 03:42:00 Bala Genao [facility] PATHOLOGIST REVIEW Medical Cente r CBC W/PLT COUNT & AUTO 2020-05-25 03:42:00 [facility] (CELLAVISION MANUAL DIFF) 2020-05-25 03:42:[address] [facility] PT/APTT 2020-05-25 03:41:00 [facility] IRON, TIBC, % SAT. 2020-05-25 03:41:00 [facility] (WITHOUT FERRITIN) [facility] FERRITIN 2020-05-25 03:41:00 [facility] HAPTOGLOBIN 2020-05-25 03:41:00 [facility] XR CHEST 1 VIEW 2020-05-25 02:00:00 Layo Ley [facility] - PORTABLE/BEDSIDE [facility] US TESTICULAR (SCROTUM) 2020-05-25 01:24:00 Layo Ley [facility] TRANSFUSE LEUKO-REDUCED 2020-05-25 01:22:54 Sonido Schofield [facility] RED BLOOD CELLS [facility] PREPARE LEUKO-REDUCED RBC 2020-05-24 21:55:[address] [facility] HEMOGLOBIN AND HEMATOCRIT 2020-05-24 20:40:00 Layo Ley [facility] HEPATITIS B SURFACE 2020-05-24 20:40:00 Marlo Hernandez [facility] DRUG TEST, GENERAL 2020-05-24 18:40:00 Layo Ley [facility] - TOXICOLOGY, URINE [facility] TROPONIN I 2020-05-24 17:32:00 Kanwal [facility] B-TYPE NATRIURETIC FACTOR 2020-05-24 17:32:00 Sonido Schofield [facility] (BNP) [facility] TROPONIN I 2020-05-24 12:30:00 Kanwal [facility] HEMOGLOBIN AND HEMATOCRIT 2020-05-24 12:30:00 Layo Ley [facility] BASIC METABOLIC PANEL (7) 2020-05-24 12:30:00 Layo Ley [facility] 2D ECHO W/ DOPPLER 2020-05-24 09:17:[address] [facility] (CW/PW/COLOR) [facility] HEMOGLOBIN AND HEMATOCRIT 2020-05-24 08:02:00 Adela Miguel [facility] TROPONIN I 2020-05-24 08:02:00 Kanwal [facility] BASIC METABOLIC PANEL (7) 2020-05-24 08:02:00 Layo Ley [facility] PHOSPHORUS 2020-05-24 08:02:00 Ley, Layo [facility] TRANSFUSE LEUKO-REDUCED 2020-05-24 07:31:48 Kanwal [facility] RED BLOOD CELLS [facility] LACTIC ACID, VENOUS 2020-05-24 03:57:00 Sergema [facility] ABORH, MANUAL 2020-05-24 03:57:00 Vidhi Flowers [facility] CALCIUM, IONIZED 2020-05-24 03:56:00 Sergema [facility] BASIC METABOLIC PANEL (7) 2020-05-24 03:48:00 Kanwal [facility] MAGNESIUM 2020-05-24 03:48:00 Kanwal [facility] PHOSPHORUS 2020-05-24 03:48:00 Kanwal [facility] PT/APTT 2020-05-24 03:48:00 Kanwal [facility] HEPATIC FUNCTION PANEL 2020-05-24 03:48:00 Kanwal [facility] HEMOGLOBIN A1C 2020-05-24 03:48:00 [facility] ANTIGEN WITH 2020-05-24 03:48:00 Santy [facility] - HIV-1/2 ANTIBODY [facility] VITAMIN B12 AND FOLATE 2020-05-24 03:48:00 Santy Cardona [facility] CBC W/PLT COUNT & AUTO 2020-05-24 03:48:00 Kanwal [facility] DIFFERENTIAL [facility] BLOOD CULTURE 2020-05-24 03:34:00 Kanwal [facility] PT/APTT 2020-05-24 02:59:00 Kanwal [facility] TYPE AND SCREEN, 2020-05-24 02:59:[address] [facility] AUTOMATED [facility] BLOOD CULTURE 2020-05-24 02:58:00 Kanwal [facility] SARS-COV2/RT-PCR ([facility] & 2020-05-24 02:33:00 Kanwal Sonido [facility] - REF LABS) [facility] XR CHEST 1 VIEW 2020-05-24 01:37:00 Sonido Schofield [facility] - PORTABLE/BEDSIDE [facility] BASIC METABOLIC PANEL (7) 2020-05-24 01:29:[address] [facility] MAGNESIUM 2020-05-24 01:29:00 Kanwal Sonido [facility] PHOSPHORUS 2020-05-24 01:29:00 [facility] HEPATIC FUNCTION PANEL 2020-05-24 01:29:00 [facility] center[facility] LACTIC ACID, VENOUS 2020-05-24 01:29:00 Demarmedina hospital [facility] 2020-05-24 01:29:00 [facility] CBC W/PLT COUNT & AUTO 2020-05-24 01:29:00 [facility] center[facility] Sonido [facility] DIFFERENTIAL [facility] BLOOD GAS, VENOUS 2020-05-24 01:28:[address] [facility] B-TYPE NATRIURETIC FACTOR 2020-05-24 01:27:00 Snoido Schofield [facility] (BNP) [facility] REPORT OF PROCEDURE - 2020-05-24 00:00:00 Provider, Christopher [facility] - ENDOSCOPY SCAN Scanning [facility] SARS-COV2/RT-PCR ([facility] & 2020-02-22 10:34:00 [facility] - REF LABS) Medical Center Plan of Care Planned Activity Planned Date Details Comments Source Future Scheduled 2020-05-21 [facility] (WELCOME TO [facility] MEDICARE) [code = Medicare IPPE (WELCOME TO MEDICARE)] Future Scheduled 1998 Lipid panel ANALILIA Hodgson s - Test 00:00:00 (procedure) [code = Medical Center 68409801] Future Scheduled 1965 Screening for ANALILIA Stanton es - Test 00:00:00 malignant neoplasm Medical C enter of colon (procedure) [code = 367881728] Encounters Start End Encounter Admission Attending Care Care Encounter Source Date/Time Date/Time Type Type Clinicians Facility Department ID 2020-05-08 2020-05-08 Emergency [facility] [id number] 14:38:00 18:28:00 Renata Sanches [place] [id number] [place] [id number] [place] [id number] Results Test Description Test Time Test Comments Results Result Sourc e Comments HEMODIALYSIS 2020-06-03 Alon GarrettANALILIA INPATIENT 12:01:00 RN 06/03/2020 [facility] Component Value Date GLUCOSE 89 06/03/2020 [...] CVC patent and intact. No S/Sx of infection noted. Dressing changed and labelled per policy. - Consent verified prior to initiation of treatment. - Report given to primary RN. Alon Garrett RN CBC with platelet count + automated diff 2020-06-03 10:02:00 Test Item Value Reference Range Interpretation Comme nts WBC (test code = 6690-2) 11.6 3.5- 10.5 K/L H RBC (test code = 789-8) 2.46 4.63- 6.08 M/L L MCHC (test code = 786-4) 34.1 32.3- 36.5 GM/DL L Hematocrit (test code = 4544-3) 23.2 % 40.1-51 L MCV (test code = 787-2) 94.3 fL 79-92.2 H MCH (test code = 785-6) 32.1 pg 25.7-32.2 RDW (test code = 788-0) 15.9 % 11.6-14.4 H Platelets (test code = 777-3) 79 150- 450 K/CU MM L MPV (test code = 88399-7) 10.8 fL 9.4-12.4 nRBC (test code = 413) 1 0- 0 /100 WBC H Lab Interpretation (test code = 04554-6) Abnormal [facility] [id number] 10:02:00 Test Item Value Reference Range Interpretation Comments % Neutros (test code = 62 % 2816) % Lymphs (test code = 27 % 2817) % Monos (test code = 5 % 2818) % Myelo (test code = 3 % 0-0 H 2822) % Bands (test code = 3 % 0-10 2826) # Neutros (test code = 7.19 K/ul 1.78-5.38 H 2830) # Lymphs (test code = 3.13 K/ul 1.32-3.57 2831) # Monos (test code = 0.58 K/uL 0.3-0.82 2832) # Myelo (test code = 0.35 K/uL 0-0 H 2837) # Bands (test code = 0.35 K/uL 0-0.8 2840) Total Counted (test code 100 = 1351) nRBC (manual) (test code 1 0- 0 /100 WBC H = 1353) WBC Morphology (test Normal code = 487) Large Platelet (test Present code = 2156) Anisocytosis (test code 1+ few = 961) Microcytes (test code = 1+ few 965) Artifact (test code = Present 3432) Platelet Conc (test code Decreased = 3438) FANTA (test code = FANTA) Keg Header ID - Chris Mtz comments: Slide comments: Lab Interpretation (test Abnormal code = 64776-3) [facility] W/PLT COUNT & AUTO [id number] 10:02:00 Test Item Value Reference Range Interpretation Comments WHITE BLOOD CELL COUNT (BEAKER) 11.6 K/ L 3.5-10.5 H (test code = 775) RED BLOOD CELL COUNT (BEAKER) 2.46 M/ L 4.63-6.08 L (test code = 761) HEMOGLOBIN (BEAKER) (test code = 7.9 GM/DL 13.7-17.5 L 410) HEMATOCRIT (BEAKER) (test code = 23.2 % 40.1-51.0 L 411) MEAN CORPUSCULAR VOLUME (BEAKER) 94.3 fL 79.0-92.2 H (test code = 753) MEAN CORPUSCULAR HEMOGLOBIN 32.1 pg 25.7-32.2 (BEAKER) (test code = 751) MEAN CORPUSCULAR HEMOGLOBIN CONC 34.1 GM/DL 32.3-36.5 (BEAKER) (test code = 752) RED CELL DISTRIBUTION WIDTH 15.9 % 11.6-14.4 H (BEAKER) (test code = 412) PLATELET COUNT (BEAKER) (test code 79 K/CU MM 150-450 L = 756) MEAN PLATELET VOLUME (BEAKER) 10.8 fL 9.4-12.4 (test code = 754) NUCLEATED RED BLOOD CELLS (BEAKER) 1 /100 WBC 0-0 H (test code = 413) (CELLAVISION MANUAL DIFF)2020-06-03 10:02:00 Test Item Value Reference Range Interpretation Comments NEUTROPHILS - REL 62 % (CELLAVISION)(BEAKER) (test code = 2816) LYMPHOCYTES - REL 27 % (CELLAVISION)(BEAKER) (test code = 2817) MONOCYTES - REL 5 % (CELLAVISION)(BEAKER) (test code = 2818) MYELOCYTES - REL 3 % 0-0 H (CELLAVISION)(BEAKER) (test code = 2822) BANDS - REL (CELLAVISION)(BEAKER) 3 % 0-10 (test code = 2826) NEUTROPHILS - ABS 7.19 K/ul 1.78-5.38 H (CELLAVISION)(BEAKER) (test code = 2830) LYMPHOCYTES - ABS 3.13 K/ul 1.32-3.57 (CELLAVISION)(BEAKER) (test code = 2831) MONOCYTES - ABS 0.58 K/uL 0.30-0.82 (CELLAVISION)(BEAKER) (test code = 2832) MYELOCYTES-ABS 0.35 K/uL 0.00-0.00 H (CELLAVISION)(BEAKER) (test code = 2837) BANDS - ABS (CELLAVISION)(BEAKER) 0.35 K/uL 0.00-0.80 (test code = 2840) TOTAL COUNTED (BEAKER) (test code 100 = 1351) MANUAL NRBC PER 100 CELLS (BEAKER) 1 /100 WBC 0-0 H (test code = 1353) WBC MORPHOLOGY (BEAKER) (test code Normal = 487) LARGE PLT(BEAKER) (test code = Present 2156) ANISOCYTOSIS (BEAKER) (test code = 1+ few 961) MICROCYTES (BEAKER) (test code = 1+ few 965) ARTIFACT (CELLAVISION)(BEAKER) Present (test code = 3432) PLATELET CONCENTRATION Decreased (CELLAVISION)(BEAKER) (test code = 3438) Keg Header ID - Chris Mtz comments: Slide comments:Comprehensive metabolic [id number] 05:15:00 Test Item Value Reference Range Interpretation Comments Protein, Total (test 6.5 6.0- 8.3 gm/dL Speci men slightly code = 2885-2) hemolyzed Albumin (test code = 3.3 g/dL 3.5-5 L Specime n slightly 94903-4) hemolyzed Alkaline Phosphatase 71 U/L 40-150 (test code = 6768-6) Total Bilirubin (test 0.3 mg/dL 0.2-1.2 Specim en slightly code = 1975-2) hemolyzed Sodium (test code = 134 meq/L 136-145 L 2951-2) Potassium (test code = 5.1 meq/L 3.5-5.1 Speci men slightly 2823-3) hemolyzed Chloride (test code = 96 meq/L 98-107 L 2075-0) CO2 (test code = 24 meq/L 22-2027-9) BUN (test code = 60 mg/dL 7-21 H 3094-0) Creatinine (test code 9.02 mg/dL 0.57-1.25 H Specim en slightly = 2160-0) hemolyzed Glucose (test code = 89 mg/dL 70-105 2345-7) Calcium (test code = 9.2 mg/dL 8.4-10.2 12339-4) AST (test code = 42 U/L 5-34 H Specimen sl ightly 1920-8) hemolyzed ALT (test code = 14 U/L 6-55 Specimen sl ightly 1742-6) hemolyzed EGFR (test code = 6 mL/min/1.73 [place] [address]-9) NOT ACCURATE CREATININE CLEARANCE IN PREDICTING GLOMERULAR FILTRATION RATE . ESTIMATED GFR I S NOT APPLICABLE FOR DIALYSIS PATIENTS. FANTA (test code = FANTA) Keg Header ID - BONILLA M Lab Interpretation Abnormal (test code = 66194-0) [facility]COMPREHENSIVE METABOLIC [id number] 05:15:00 Test Item Value Reference Range Interpretation Comments TOTAL PROTEIN 6.5 gm/dL 6.0-8.3 Specimen sligh tly (BEAKER) (test code = hemoly zed 770) ALBUMIN (BEAKER) 3.3 g/dL 3.5-5.0 L Specimen sl ightly (test code = 1145) hemolyzed ALKALINE PHOSPHATASE 71 U/L 40-150 (BEAKER) (test code = 346) BILIRUBIN TOTAL 0.3 mg/dL 0.2-1.2 Specimen sli ghtly (BEAKER) (test code = hemoly zed 377) SODIUM (BEAKER) (test 134 meq/L 136-145 L code = 381) POTASSIUM (BEAKER) 5.1 meq/L 3.5-5.1 Specimen slightly (test code = 379) hemolyzed CHLORIDE (BEAKER) 96 meq/L 98-107 L (test code = 382) CO2 (BEAKER) (test 24 meq/L -29 code = 355) BLOOD UREA NITROGEN 60 mg/dL 7-21 H (BEAKER) (test code = 354) CREATININE (BEAKER) 9.02 mg/dL 0.57-1.25 H Specimen slightly (test code = 358) hemolyzed GLUCOSE RANDOM 89 mg/dL 70-105 (BEAKER) (test code = 652) CALCIUM (BEAKER) 9.2 mg/dL 8.4-10.2 (test code = 697) AST (SGOT) (BEAKER) 42 U/L 5-34 H Specimen slightly (test code = 353) hemolyzed ALT (SGPT) (BEAKER) 14 U/L 6-55 Specimen slightly (test code = 347) hemolyzed EGFR (BEAKER) (test 6 mL/min/1.73 ESTIMAT ED GFR IS code = 1092) sq m NOT ACCURATE CREATININE CLEARANCE IN PREDICTING GLOMERULAR FILTRATION RATE . ESTIMATED GFR I S NOT APPLICABLE FOR DIALYSIS PATIEN TS. Keg Header [facility] function [id number] 05:03:00 Test Item Value Reference Range Interpretation Comments Protein, Total (test 6.5 6.0- 8.3 gm/dL Speci men code = 2885-2) slightly hemolyzed Albumin (test code = 3.3 g/dL 3.5-5 [place] n 73790-8) slightly hemolyzed Total Bilirubin (test 0.3 mg/dL 0.2-1.2 Specim en code = 1975-2) slightly hemolyzed Bilirubin, Direct 0.1 mg/dL 0.1-0.5 Specimen (test code = 1968-7) slightl y hemolyzed Alkaline Phosphatase 71 U/L 40-150 (test code = 6768-6) AST (test code = 42 U/L 5-34 H Specimen 1920-8) slightly hemolyzed ALT (test code = 14 U/L 6-55 Specimen 1742-6) slightly hemolyzed FANTA (test code = FANTA) Keg Header ID - [facility] Lab Interpretation Abnormal (test code = 73741-9) [facility] campusMagnesium2020-10-14 05:03:00 Test Item Value Reference Range Interpretation Comments Magnesium (test code = 2.0 mg/dL 1.6-2.6 Speci men 32292-2) slightly hemolyzed FANTA (test code = FANTA) Keg Header ID [facility] [place] Lab Interpretation Normal (test code = 11482-8) [facility] campusPhosphorus2020-10-14 05:03:00 Test Item Value Reference Range Interpretation Comments Phosphorus (test code 4.3 mg/dL 2.3-4.7 Specim en = 2777-1) slightly hemolyzed FANTA (test code = FANTA) Keg Header ID - BONILLA M Lab Interpretation Normal (test code = 81576-0) [facility]14 05:03:00 Test Item Value Reference Range Interpretation Comments MAGNESIUM (BEAKER) 2.0 mg/dL 1.6-2.6 Specimen slightly (test code = 627) hemolyzed Keg Header ID - B[place]A [id number] 05:03:00 Test Item Value Reference Range Interpretation Comments PHOSPHORUS (BEAKER) 4.3 mg/dL 2.3-4.7 Specimen slightly (test code = 604) hemolyzed Keg Header ID - [place] MHEPATIC FUNCTION [id number] 05:03:00 Test Item Value Reference Range Interpretation Comments TOTAL PROTEIN (BEAKER) 6.5 gm/dL 6.0-8.3 Speci men slightly (test code = 770) hemolyzed ALBUMIN (BEAKER) (test 3.3 g/dL 3.5-5.0 L Speci men slightly code = 1145) hemolyzed BILIRUBIN TOTAL 0.3 mg/dL 0.2-1.2 Specimen sli ghtly (BEAKER) (test code = hemoly zed 377) BILIRUBIN DIRECT 0.1 mg/dL 0.1-0.5 Specimen sl ightly (BEAKER) (test code = hemoly zed 706) ALKALINE PHOSPHATASE 71 U/L 40-150 (BEAKER) (test code = 346) AST (SGOT) (BEAKER) 42 U/L 5-34 H Specimen slightly (test code = 353) hemolyzed ALT (SGPT) (BEAKER) 14 U/L 6-55 Specimen slightly (test code = 347) hemolyzed Keg Header ID - B[place]A MPT/[id number] 04:44:00 Test Item Value Reference Range Interpretation Comments Protime (test code = 14.1 11.9- 14.2 5902-2) seconds INR (test code = 1.12 <=5.90 6301-6) PTT (test code = 38.0 22.5- 36.0 H 45999-3) seconds FANTA (test code = FANTA) Effective 01/16/2019: PT Reference Range ChangeNew: 11.9-14.2 Previous: 11.7-14.7 RECOMMENDED COUMADIN/WARFARIN INR THERAPY RANGESSTANDARD DOSE: 2.0-3.0 Includes: PROPHYLAXIS for venous thrombosis, systemic embolization; TREATMENT for venous thrombosis and/or pulmonary embolus.HIGH RISK: Target INR is 2.5-3.5 for patients wiht mechanical heart valves. Lab Interpretation Abnormal (test code = 17830-1) [facility] campusPT/[id number] 04:44:00 Test Item Value Reference Range Interpretation Comments PROTIME (BEAKER) (test code = 14.1 seconds 11.9-14.2 759) INR (BEAKER) (test code = 370) 1.12 <=5.90 PARTIAL THROMBOPLASTIN TIME 38.0 seconds 22.5-36.0 H (BEAKER) (test code = 760) Effective 01/16/2019: PT Reference Range ChangeNew: 11.9-14.2 Previous: 11.7- 14.7RECOMMENDED COUMADIN/WARFARIN INR THERAPY RANGESSTANDARD DOSE: 2.0-3.0 Includes: PROPHYLAXIS for venous thrombosis, systemic embolization; TREATMENT for venous thrombosis and/or pulmonary embolus.HIGH RISK: Target INR is2.5-3.5 for patients wiht mechanical heart valves.Calcium, [id number] 04:34:00 Test Item Value Reference Range Interpretation Comments Calcium, Ion (test code = 1994-3) 1.17 mmol/L 1.12-1.27 pH, Blood (test code = 46279-7) 7.44 [facility] campusCALCIUM, [id number] 04:34:00 Test Item Value Reference Range Interpretation Comments CALCIUM IONIZED (BEAKER) (test 1.17 mmol/L 1.12-1.27 code = 698) PH, BLOOD (BEAKER) (test code = 7.44 1810) Prepare Leuko-Red [id number] 23:54:00 Test Item Value Reference Range Interpretation Comments CROSSMATCH (test code = 2264) COMPATIBLE Unit ABO (test code = O Pos 6330746) UNIT NUMBER (test code = [id number] 934-0) Status (test code = 8159593) TX_TIMEINCHART Blood Bank Product (test code RED BLOOD CELLS = 2263) PRODUCT CODE (test code = D4973Z14 933-2) [facility] W/PLT COUNT & AUTO [id number] 07:51:00 Test Item Value Reference Range Interpretation Comments WHITE BLOOD CELL COUNT (BEAKER) 10.2 K/ L 3.5-10.5 (test code = 775) RED BLOOD CELL COUNT (BEAKER) 2.57 M/ L 4.63-6.08 L (test code = 761) HEMOGLOBIN (BEAKER) (test code = 8.0 GM/DL 13.7-17.5 L 410) HEMATOCRIT (BEAKER) (test code = 24.0 % 40.1-51.0 L 411) MEAN CORPUSCULAR VOLUME (BEAKER) 93.4 fL 79.0-92.2 H (test code = 753) MEAN CORPUSCULAR HEMOGLOBIN 31.1 pg 25.7-32.2 (BEAKER) (test code = 751) MEAN CORPUSCULAR HEMOGLOBIN CONC 33.3 GM/DL 32.3-36.5 (BEAKER) (test code = 752) RED CELL DISTRIBUTION WIDTH 15.8 % 11.6-14.4 H (BEAKER) (test code = 412) PLATELET COUNT (BEAKER) (test code 74 K/CU MM 150-450 L = 756) MEAN PLATELET VOLUME (BEAKER) 9.7 fL 9.4-12.4 (test code = 754) NUCLEATED RED BLOOD CELLS (BEAKER) 1 /100 WBC 0-0 H (test code = 413) (CELLAVISION MANUAL DIFF)2020-06-02 07:51:00 Test Item Value Reference Range Interpretation Comments NEUTROPHILS - REL 61 % (CELLAVISION)(BEAKER) (test code = 2816) LYMPHOCYTES - REL 31 % (CELLAVISION)(BEAKER) (test code = 2817) MONOCYTES - REL 5 % (CELLAVISION)(BEAKER) (test code = 2818) BASOPHILS - REL 2 % (CELLAVISION)(BEAKER) (test code = 2820) BANDS - REL (CELLAVISION)(BEAKER) 1 % 0-10 (test code = 2826) NEUTROPHILS - ABS 6.22 K/ul 1.78-5.38 H (CELLAVISION)(BEAKER) (test code = 2830) LYMPHOCYTES - ABS 3.16 K/ul 1.32-3.57 (CELLAVISION)(BEAKER) (test code = 2831) MONOCYTES - ABS 0.51 K/uL 0.30-0.82 (CELLAVISION)(BEAKER) (test code = 2832) BASOPHILS - ABS 0.20 K/uL 0.01-0.08 H (CELLAVISION)(BEAKER) (test code = 2835) BANDS - ABS (CELLAVISION)(BEAKER) 0.10 K/uL 0.00-0.80 (test code = 2840) TOTAL COUNTED (BEAKER) (test code 100 = 1351) WBC MORPHOLOGY (BEAKER) (test Normal code = 487) GIANT PLATELETS (BEAKER) (test Present code = 313) LARGE PLT(BEAKER) (test code = Present 2156) POLYCHROMATOPHILLIC RBCS(BEAKER) 2+ moderate (test code = 478) HYPOCHROMIA (BEAKER) (test code = 2+ moderate 963) ANISOCYTOSIS (BEAKER) (test code 2+ moderate = 961) MICROCYTES (BEAKER) (test code = 2+ moderate 965) POIKILOCYTES (BEAKER) (test code 2+ moderate = 966) SPHEROCYTES (BEAKER) (test code = 2+ moderate 768) OVALOCYTES (BEAKER) (test code = 1+ few 477) ARTIFACT (CELLAVISION)(BEAKER) Present (test code = 3432) PLATELET CONCENTRATION Decreased (CELLAVISION)(BEAKER) (test code = 3438) Keg Header ID - Abby Higgins comments: Slide comments:Basic Metabolic [id number] 05:22:00 Test Item Value Reference Range Interpretation Comments Sodium (test code = 135 meq/L 136-145 L 2951-2) Potassium (test code = 4.7 meq/L 3.5-5.1 3-3) Chloride (test code = 98 meq/L 98-107 2074-0) CO2 (test code = 25 meq/L 22-29 2027-9) BUN (test code = 36 mg/dL 7-21 H 3094-0) Creatinine (test code 6.44 mg/dL 0.57-1.25 H = 2160-0) Glucose (test code = 96 mg/dL 70-105 2345-7) Calcium (test code = 8.6 mg/dL 8.4-10.2 87241-3) EGFR (test code = 9 mL/min/1.73 [place] [address]-2) NOT ACCURATE CREATININE CLEARANCE IN PREDICTING GLOMERULAR FILTRATION RATE . ESTIMATED GFR I S NOT APPLICABLE FOR DIALYSIS PATIENTS. FANTA (test code = FANTA) Keg Header ID - EDASI Lab Interpretation Abnormal (test code = 78687-8) [facility] METABOLIC [id number] 05:22:00 Test Item Value Reference Range Interpretation Comments SODIUM (BEAKER) 135 meq/L 136-145 L (test code = 381) POTASSIUM (BEAKER) 4.7 meq/L 3.5-5.1 (test code = 379) CHLORIDE (BEAKER) 98 meq/L 98-107 (test code = 382) CO2 (BEAKER) (test 25 meq/L 22- code = 355) BLOOD UREA NITROGEN 36 mg/dL 7-21 H (BEAKER) (test code = 354) CREATININE (BEAKER) 6.44 mg/dL 0.57-1.25 H (test code = 358) GLUCOSE RANDOM 96 mg/dL 70-105 (BEAKER) (test code = 652) CALCIUM (BEAKER) 8.6 mg/dL 8.4-10.2 (test code = 697) EGFR (BEAKER) (test 9 mL/min/1.73 ESTIMAT ED GFR IS code = 1092) sq m NOT ACCURATE CREATININE CLEARANCE IN PREDICTING GLOMERULAR FILTRATION RATE . ESTIMATED GFR I S NOT APPLICABLE FOR DIALYSIS PATIEN TS. Keg Header ID - [id number] 04:52:00 Test Item Value Reference Range Interpretation Comments MAGNESIUM (BEAKER) (test code = 1.9 mg/dL 1.6-2.6 627) Keg Header ID - EDASIHEPATIC FUNCTION [id number] 04:52:00 Test Item Value Reference Range Interpretation Comments TOTAL PROTEIN (BEAKER) (test code = 6.6 gm/dL 6.0-8.3 770) ALBUMIN (BEAKER) (test code = 1145) 3.4 g/dL 3.5-5.0 L BILIRUBIN TOTAL (BEAKER) (test code 0.4 mg/dL 0.2-1.2 = 377) BILIRUBIN DIRECT (BEAKER) (test 0.1 mg/dL 0.1-0.5 code = 706) ALKALINE PHOSPHATASE (BEAKER) (test 79 U/L 40-150 code = 346) AST (SGOT) (BEAKER) (test code = 39 U/L 5-34 H 353) ALT (SGPT) (BEAKER) (test code = 15 U/L 6-55 347) Keg Header ID - EDASIPT/[id number] 04:20:00 Test Item Value Reference Range Interpretation Comments PROTIME (BEAKER) (test code = 14.1 seconds 11.9-14.2 759) INR (BEAKER) (test code = 370) 1.12 <=5.90 PARTIAL THROMBOPLASTIN TIME 38.1 seconds 22.5-36.0 H (BEAKER) (test code = 760) Effective 01/16/2019: PT Reference Range ChangeNew: 11.9-14.2 Previous: 11.7- 14.7RECOMMENDED COUMADIN/WARFARIN INR THERAPY RANGESSTANDARD DOSE: 2.0-3.0 Includes: PROPHYLAXIS for venous thrombosis, systemic embolization; TREATMENT for venous thrombosis and/or pulmonary embolus.HIGH RISK: Target INR is2.5-3.5 for patients wiht mechanical heart valves.POC-Glucose [id number] 22:24:00 Test Item Value Reference Range Interpretation Comments POC-Glucose Meter (test 99 mg/dL 70-110 : TE STED AT [facility] code = 1538) [address] [facility], [address]: Keg Header/Techni connie ID = [id number] for Jerson Morales Lab Interpretation (test Normal code = 15324-8) [facility] campusPOCT-GLUCOSE [id number] 22:24:00 Test Item Value Reference Range Interpretation Comments POC-GLUCOSE METER 99 mg/dL 70-110 : TESTED A T [facility] 6720 (BEAKER) (test code = [facility]EL[facility] Lazo [facility], 1538) [address]: Keg Header/Techni connie ID = [id number] for Jerson Soriano Hepatitis B surface [id number] 20:25:00 Test Item Value Reference Range Interpretation Comments Hep B S Ab (test code = 27.2 <8.0 mIU/mL H 61995-5) FANTA (test code = FANTA) Keg Header ID - DB Lab Interpretation (test Abnormal code = 13519-1) [facility] campusHEPATITIS B SURFACE [id number] 20:25:00 Test Item Value Reference Range Interpretation Comments HEPATITIS B SURFACE ANTIBODY 27.2 mIU/mL <8.0 H (BEAKER) (test code = 647) Keg Header ID - DBDrug Test, General Toxicology, [id number] 11:06:00 Test Item Value Reference Interpretation Comments Range Acetone(Quest) None Detected (test code = 3053) Methanol(Quest) None Detected (test code = 3054) Drug Test,Genrl see note The followin g compounds were Tox,U (test detected: Co tinine code = 8144398) (Nicotine Me tabolite) Morphine Osvaldo taminophen Hydromorphone Hydrocodone Benzoylecgoni ne (Cocaine Metabolite) Cyclobenzaprine For a list of compounds an d limits of detection go to:http://educa tion.bCommunities/faq /DQN822 ISOPROPANOL None Detected (test code = 2608213) ETHANOL (test None Detected Volatile code = 5766765) Limit of Det ection: 5 mg/dL This test was d ivanaoped and its analytical performancechar acteristics have been deter mined by [facility] [place], [place]. It hasnot been enoch ared or approved by the U.S. Food and DrugAdministrat ion. This assay has been validated pursuantto the CLIA regulations and is used for clinicalpurpose s. FANTA (test code Performing Lab = FANTA) [address] [facility], [address] [place] [address] Mckenna Lopez MD, PhD [facility] campusCB W/PLT COUNT & AUTO [id number] 08:11:00 Test Item Value Reference Range Interpretation Comments WHITE BLOOD CELL COUNT (BEAKER) 11.0 K/ L 3.5-10.5 H (test code = 775) RED BLOOD CELL COUNT (BEAKER) 2.05 M/ L 4.63-6.08 L (test code = 761) HEMOGLOBIN (BEAKER) (test code = 6.6 GM/DL 13.7-17.5 L 410) HEMATOCRIT (BEAKER) (test code = 19.6 % 40.1-51.0 L 411) MEAN CORPUSCULAR VOLUME (BEAKER) 95.6 fL 79.0-92.2 H (test code = 753) MEAN CORPUSCULAR HEMOGLOBIN 32.2 pg 25.7-32.2 (BEAKER) (test code = 751) MEAN CORPUSCULAR HEMOGLOBIN CONC 33.7 GM/DL 32.3-36.5 (BEAKER) (test code = 752) RED CELL DISTRIBUTION WIDTH 15.6 % 11.6-14.4 H (BEAKER) (test code = 412) PLATELET COUNT (BEAKER) (test code 73 K/CU MM 150-450 L = 756) MEAN PLATELET VOLUME (BEAKER) 10.8 fL 9.4-12.4 (test code = 754) NUCLEATED RED BLOOD CELLS (BEAKER) 1 /100 WBC 0-0 H (test code = 413) (CELLAVISION MANUAL DIFF)2020-06-01 08:11:00 Test Item Value Reference Range Interpretation Comments NEUTROPHILS - REL 61 % (CELLAVISION)(BEAKER) (test code = 2816) LYMPHOCYTES - REL 28 % (CELLAVISION)(BEAKER) (test code = 2817) MONOCYTES - REL 2 % (CELLAVISION)(BEAKER) (test code = 2818) EOSINOPHILS - REL 2 % (CELLAVISION)(BEAKER) (test code = 2819) METAMYELOCYTES - REL 4 % 0-0 H (CELLAVISION)(BEAKER) (test code = 2821) BANDS - REL (CELLAVISION)(BEAKER) 2 % 0-10 (test code = 2826) ATYPICAL LYMPHOCYTES - REL 1 % 0-0 H (CELLAVISION)(BEAKER) (test code = 2829) NEUTROPHILS - ABS 6.71 K/ul 1.78-5.38 H (CELLAVISION)(BEAKER) (test code = 2830) LYMPHOCYTES - ABS 3.08 K/ul 1.32-3.57 (CELLAVISION)(BEAKER) (test code = 2831) MONOCYTES - ABS 0.22 K/uL 0.30-0.82 L (CELLAVISION)(BEAKER) (test code = 2832) EOSINOPHILS - ABS 0.22 K/uL 0.04-0.54 (CELLAVISION)(BEAKER) (test code = 2834) METAMYELOCYTES - ABS 0.44 K/uL 0.00-0.00 H (CELLAVISION)(BEAKER) (test code = 2836) BANDS - ABS (CELLAVISION)(BEAKER) 0.22 K/uL 0.00-0.80 (test code = 2840) ATYPICAL LYMPHOCYTES - ABS 0.11 K/uL 0.00-0.00 H (CELLAVISION)(BEAKER) (test code = 2858) TOTAL COUNTED (BEAKER) (test code = 100 1351) PLT MORPHOLOGY (BEAKER) (test code Normal = 486) SMUDGE CELLS (BEAKER) (test code = Present 1371) POLYCHROMATOPHILLIC RBCS(BEAKER) 3+ many (test code = 478) ANISOCYTOSIS (BEAKER) (test code = 3+ many 961) MICROCYTES (BEAKER) (test code = 3+ many 965) POIKILOCYTES (BEAKER) (test code = 1+ few 966) ARTIFACT (CELLAVISION)(BEAKER) Present (test code = 3432) PLATELET CONCENTRATION Decreased (CELLAVISION)(BEAKER) (test code = 3438) Keg Header ID - Jonna Pascual comments: Slide comments:BASIC METABOLIC PANEL 2020-06-01 06:00:00 Test Item Value Reference Range Interpretation Comments SODIUM (BEAKER) 130 meq/L 136-145 L (test code = 381) POTASSIUM (BEAKER) 4.9 meq/L 3.5-5.1 (test code = 379) CHLORIDE (BEAKER) 94 meq/L 98-107 L (test code = 382) CO2 (BEAKER) (test 24 meq/L 22-29 code = 355) BLOOD UREA NITROGEN 68 mg/dL 7-21 H (BEAKER) (test code = 354) CREATININE (BEAKER) 11.05 mg/dL 0.57-1.25 H (test code = 358) GLUCOSE RANDOM 90 mg/dL 70-105 (BEAKER) (test code = 652) CALCIUM (BEAKER) 9.0 mg/dL 8.4-10.2 (test code = 697) EGFR (BEAKER) (test 5 mL/min/1.73 ESTIMAT ED GFR IS code = 1092) sq m NOT ACCURATE CREATININE CLEARANCE IN PREDICTING GLOMERULAR FILTRATION RATE . ESTIMATED GFR I S NOT APPLICABLE FOR DIALYSIS PATIEN TS. Keg Header ID - [place] [id number] 05:45:00 Test Item Value Reference Range Interpretation Comments MAGNESIUM (BEAKER) (test code = 2.2 mg/dL 1.6-2.6 627) Keg Header ID - [place] MHEPATIC FUNCTION [id number] 05:45:00 Test Item Value Reference Range Interpretation Comments TOTAL PROTEIN (BEAKER) (test code = 6.2 gm/dL 6.0-8.3 770) ALBUMIN (BEAKER) (test code = 1145) 3.2 g/dL 3.5-5.0 L BILIRUBIN TOTAL (BEAKER) (test code 0.3 mg/dL 0.2-1.2 = 377) BILIRUBIN DIRECT (BEAKER) (test 0.1 mg/dL 0.1-0.5 code = 706) ALKALINE PHOSPHATASE (BEAKER) (test 71 U/L 40-150 code = 346) AST (SGOT) (BEAKER) (test code = 28 U/L 5-34 353) ALT (SGPT) (BEAKER) (test code = 11 U/L 6-55 347) Keg Header ID - [place] MPT/[id number] 05:17:00 Test Item Value Reference Range Interpretation Comments PROTIME (BEAKER) (test code = 14.3 seconds 11.9-14.2 H 759) INR (BEAKER) (test code = 370) 1.14 <=5.90 PARTIAL THROMBOPLASTIN TIME 36.1 seconds 22.5-36.0 H (BEAKER) (test code = 760) Effective 01/16/2019: PT Reference Range ChangeNew: 11.9-14.2 Previous: 11.7- 14.7RECOMMENDED COUMADIN/WARFARIN INR THERAPY RANGESSTANDARD DOSE: 2.0-3.0 Includes: PROPHYLAXIS for venous thrombosis, systemic embolization; TREATMENT for venous thrombosis and/or pulmonary embolus.HIGH RISK: Target INR is2.5-3.5 for patients wiht mechanical heart valves.Type and screen, [id number] 11:24:00 Test Item Value Reference Range Interpretation Comments ABO/RH AUTOMATED (BEAKER) (test O POSITIVE code = 2260) Ab Scrn (test code = 890-4) NEGATIVE [facility] campusHemoglobin and [id number] 09:57:00 Test Item Value Reference Range Interpretation Comments Hemoglobin (test code = 7.2 13.7- 17.5 GM/DL L 786-4) Hematocrit (test code = 21.2 % 40.1-51 L 4544-3) FANTA (test code = FANTA) Keg Header ID - 6000 Lab Interpretation (test Abnormal code = 40452-3) [facility] campusHEMOGLOBIN AND [id number] 09:57:00 Test Item Value Reference Range Interpretation Comments HEMOGLOBIN (BEAKER) (test code = 7.2 GM/DL 13.7-17.5 L 410) HEMATOCRIT (BEAKER) (test code = 21.2 % 40.1-51.0 L 411) Keg Header ID - 6000CBC W/PLT COUNT & AUTO [id number] 08:25:00 Test Item Value Reference Range Interpretation Comments WHITE BLOOD CELL COUNT (BEAKER) 10.3 K/ L 3.5-10.5 (test code = 775) RED BLOOD CELL COUNT (BEAKER) 2.18 M/ L 4.63-6.08 L (test code = 761) HEMOGLOBIN (BEAKER) (test code = 6.8 GM/DL 13.7-17.5 L 410) HEMATOCRIT (BEAKER) (test code = 20.8 % 40.1-51.0 L 411) MEAN CORPUSCULAR VOLUME (BEAKER) 95.4 fL 79.0-92.2 H (test code = 753) MEAN CORPUSCULAR HEMOGLOBIN 31.2 pg 25.7-32.2 (BEAKER) (test code = 751) MEAN CORPUSCULAR HEMOGLOBIN CONC 32.7 GM/DL 32.3-36.5 (BEAKER) (test code = 752) RED CELL DISTRIBUTION WIDTH 15.5 % 11.6-14.4 H (BEAKER) (test code = 412) PLATELET COUNT (BEAKER) (test code 70 K/CU MM 150-450 L = 756) MEAN PLATELET VOLUME (BEAKER) 10.1 fL 9.4-12.4 (test code = 754) NUCLEATED RED BLOOD CELLS (BEAKER) 1 /100 WBC 0-0 H (test code = 413) (CELLAVISION MANUAL DIFF)2020-05-31 08:25:00 Test Item Value Reference Range Interpretation Comments NEUTROPHILS - REL 62 % (CELLAVISION)(BEAKER) (test code = 2816) LYMPHOCYTES - REL 30 % (CELLAVISION)(BEAKER) (test code = 2817) MONOCYTES - REL 3 % (CELLAVISION)(BEAKER) (test code = 2818) BASOPHILS - REL 2 % (CELLAVISION)(BEAKER) (test code = 2820) MYELOCYTES - REL 1 % 0-0 H (CELLAVISION)(BEAKER) (test code = 2822) BANDS - REL (CELLAVISION)(BEAKER) 2 % 0-10 (test code = 2826) NEUTROPHILS - ABS 6.39 K/ul 1.78-5.38 H (CELLAVISION)(BEAKER) (test code = 2830) LYMPHOCYTES - ABS 3.09 K/ul 1.32-3.57 (CELLAVISION)(BEAKER) (test code = 2831) MONOCYTES - ABS 0.31 K/uL 0.30-0.82 (CELLAVISION)(BEAKER) (test code = 2832) BASOPHILS - ABS 0.21 K/uL 0.01-0.08 H (CELLAVISION)(BEAKER) (test code = 2835) MYELOCYTES-ABS 0.10 K/uL 0.00-0.00 H (CELLAVISION)(BEAKER) (test code = 2837) BANDS - ABS (CELLAVISION)(BEAKER) 0.21 K/uL 0.00-0.80 (test code = 2840) TOTAL COUNTED (BEAKER) (test code 100 = 1351) MANUAL NRBC PER 100 CELLS (BEAKER) 1 /100 WBC 0-0 H (test code = 1353) WBC MORPHOLOGY (BEAKER) (test code Normal = 487) PLT MORPHOLOGY (BEAKER) (test code Normal = 486) POLYCHROMATOPHILLIC RBCS(BEAKER) 1+ few (test code = 478) ANISOCYTOSIS (BEAKER) (test code = 1+ few 961) MICROCYTES (BEAKER) (test code = 1+ few 965) MACROCYTES (BEAKER) (test code = 1+ few 964) POIKILOCYTES (BEAKER) (test code = 1+ few 966) OVALOCYTES (BEAKER) (test code = 1+ few 477) ARTIFACT (CELLAVISION)(BEAKER) Present (test code = 3432) HELMET CELLS (CELLAVISION)(BEAKER) 1+ few (test code = 3434) PLATELET CONCENTRATION Decreased (CELLAVISION)(BEAKER) (test code = 3438) Keg Header ID - Angie comments: Slide comments:BASIC METABOLIC [id number] 06:33:00 Test Item Value Reference Range Interpretation Comments SODIUM (BEAKER) 131 meq/L 136-145 L (test code = 381) POTASSIUM (BEAKER) 4.7 meq/L 3.5-5.1 (test code = 379) CHLORIDE (BEAKER) 97 meq/L 98-107 L (test code = 382) CO2 (BEAKER) (test 24 meq/L 22-29 code = 355) BLOOD UREA NITROGEN 48 mg/dL 7-21 H (BEAKER) (test code = 354) CREATININE (BEAKER) 9.10 mg/dL 0.57-1.25 H (test code = 358) GLUCOSE RANDOM 89 mg/dL 70-105 (BEAKER) (test code = 652) CALCIUM (BEAKER) 8.9 mg/dL 8.4-10.2 (test code = 697) EGFR (BEAKER) (test 6 mL/min/1.73 ESTIMAT ED GFR IS code = 1092) sq m NOT ACCURATE CREATININE CLEARANCE IN PREDICTING GLOMERULAR FILTRATION RATE . ESTIMATED GFR I S NOT APPLICABLE FOR DIALYSIS PATIEN TS. Keg Header ID - BANDAR [id number] 06:22:00 Test Item Value Reference Range Interpretation Comments MAGNESIUM (BEAKER) (test code = 2.1 mg/dL 1.6-2.6 627) Keg Header ID - PIAYA LHEPATIC FUNCTION [id number] 06:22:00 Test Item Value Reference Range Interpretation Comments TOTAL PROTEIN (BEAKER) (test code = 6.2 gm/dL 6.0-8.3 770) ALBUMIN (BEAKER) (test code = 1145) 3.2 g/dL 3.5-5.0 L BILIRUBIN TOTAL (BEAKER) (test code 0.3 mg/dL 0.2-1.2 = 377) BILIRUBIN DIRECT (BEAKER) (test 0.2 mg/dL 0.1-0.5 code = 706) ALKALINE PHOSPHATASE (BEAKER) (test 71 U/L 40-150 code = 346) AST (SGOT) (BEAKER) (test code = 27 U/L 5-34 353) ALT (SGPT) (BEAKER) (test code = 12 U/L 6-55 347) Keg Header ID - PIAYA LPT/[id number] 06:13:00 Test Item Value Reference Range Interpretation Comments PROTIME (BEAKER) (test code = 13.9 seconds 11.9-14.2 759) INR (BEAKER) (test code = 370) 1.10 <=5.90 PARTIAL THROMBOPLASTIN TIME 38.6 seconds 22.5-36.0 H (BEAKER) (test code = 760) Effective 01/16/2019: PT Reference Range ChangeNew: 11.9-14.2 Previous: 11.7- 14.7RECOMMENDED COUMADIN/WARFARIN INR THERAPY RANGESSTANDARD DOSE: 2.0-3.0 Includes: PROPHYLAXIS for venous thrombosis, systemic embolization; TREATMENT for venous thrombosis and/or pulmonary embolus.HIGH RISK: Target INR is2.5-3.5 for patients wiht mechanical heart valves.CBC W/PLT COUNT & AUTO [id number] 07:32:00 Test Item Value Reference Range Interpretation Comments WHITE BLOOD CELL COUNT (BEAKER) 10.9 K/ L 3.5-10.5 H (test code = 775) RED BLOOD CELL COUNT (BEAKER) 2.36 M/ L 4.63-6.08 L (test code = 761) HEMOGLOBIN (BEAKER) (test code = 7.6 GM/DL 13.7-17.5 L 410) HEMATOCRIT (BEAKER) (test code = 22.6 % 40.1-51.0 L 411) MEAN CORPUSCULAR VOLUME (BEAKER) 95.8 fL 79.0-92.2 H (test code = 753) MEAN CORPUSCULAR HEMOGLOBIN 32.2 pg 25.7-32.2 (BEAKER) (test code = 751) MEAN CORPUSCULAR HEMOGLOBIN CONC 33.6 GM/DL 32.3-36.5 (BEAKER) (test code = 752) RED CELL DISTRIBUTION WIDTH 15.7 % 11.6-14.4 H (BEAKER) (test code = 412) PLATELET COUNT (BEAKER) (test code 70 K/CU MM 150-450 L = 756) MEAN PLATELET VOLUME (BEAKER) 10.4 fL 9.4-12.4 (test code = 754) NUCLEATED RED BLOOD CELLS (BEAKER) 1 /100 WBC 0-0 H (test code = 413) (CELLAVISION MANUAL DIFF)2020-05-30 07:32:00 Test Item Value Reference Range Interpretation Comments NEUTROPHILS - REL 60 % (CELLAVISION)(BEAKER) (test code = 2816) LYMPHOCYTES - REL 26 % (CELLAVISION)(BEAKER) (test code = 2817) MONOCYTES - REL 5 % (CELLAVISION)(BEAKER) (test code = 2818) EOSINOPHILS - REL 2 % (CELLAVISION)(BEAKER) (test code = 2819) METAMYELOCYTES - REL 1 % 0-0 H (CELLAVISION)(BEAKER) (test code = 2821) BANDS - REL (CELLAVISION)(BEAKER) 4 % 0-10 (test code = 2826) ATYPICAL LYMPHOCYTES - REL 2 % 0-0 H (CELLAVISION)(BEAKER) (test code = 2829) NEUTROPHILS - ABS 6.54 K/ul 1.78-5.38 H (CELLAVISION)(BEAKER) (test code = 2830) LYMPHOCYTES - ABS 2.83 K/ul 1.32-3.57 (CELLAVISION)(BEAKER) (test code = 2831) MONOCYTES - ABS 0.55 K/uL 0.30-0.82 (CELLAVISION)(BEAKER) (test code = 2832) EOSINOPHILS - ABS 0.22 K/uL 0.04-0.54 (CELLAVISION)(BEAKER) (test code = 2834) METAMYELOCYTES - ABS 0.11 K/uL 0.00-0.00 H (CELLAVISION)(BEAKER) (test code = 2836) BANDS - ABS (CELLAVISION)(BEAKER) 0.44 K/uL 0.00-0.80 (test code = 2840) ATYPICAL LYMPHOCYTES - ABS 0.22 K/uL 0.00-0.00 H (CELLAVISION)(BEAKER) (test code = 2858) TOTAL COUNTED (BEAKER) (test code 100 = 1351) MANUAL NRBC PER 100 CELLS 1 /100 WBC 0-0 H (BEAKER) (test code = 1353) WBC MORPHOLOGY (BEAKER) (test Normal code = 487) PLT MORPHOLOGY (BEAKER) (test Normal code = 486) POLYCHROMATOPHILLIC RBCS(BEAKER) 1+ few (test code = 478) HYPOCHROMIA (BEAKER) (test code = 1+ few 963) ANISOCYTOSIS (BEAKER) (test code 2+ moderate = 961) MICROCYTES (BEAKER) (test code = 1+ few 965) MACROCYTES (BEAKER) (test code = 2+ moderate 964) POIKILOCYTES (BEAKER) (test code 1+ few = 966) OVALOCYTES (BEAKER) (test code = 1+ few 477) TEAR DROP CELLS (BEAKER) (test 1+ few code = 481) ARTIFACT (CELLAVISION)(BEAKER) Present (test code = 3432) PLATELET CONCENTRATION Decreased (CELLAVISION)(BEAKER) (test code = 3438) BASIC METABOLIC [id number] 06:02:00 Test Item Value Reference Range Interpretation Comments SODIUM (BEAKER) 136 meq/L 136-145 (test code = 381) POTASSIUM (BEAKER) 4.3 meq/L 3.5-5.1 (test code = 379) CHLORIDE (BEAKER) 99 meq/L 98-107 (test code = 382) CO2 (BEAKER) (test 26 meq/L 22-29 code = 355) BLOOD UREA NITROGEN 29 mg/dL 7-21 H (BEAKER) (test code = 354) CREATININE (BEAKER) 6.53 mg/dL 0.57-1.25 H (test code = 358) GLUCOSE RANDOM 95 mg/dL 70-105 (BEAKER) (test code = 652) CALCIUM (BEAKER) 9.0 mg/dL 8.4-10.2 (test code = 697) EGFR (BEAKER) (test 9 mL/min/1.73 ESTIMAT ED GFR IS code = 1092) sq m NOT ACCURATE CREATININE CLEARANCE IN PREDICTING GLOMERULAR FILTRATION RATE . ESTIMATED GFR I S NOT APPLICABLE FOR DIALYSIS PATIEN TS. [id number] 06:00:00 Test Item Value Reference Range Interpretation Comments MAGNESIUM (BEAKER) (test code = 2.0 mg/dL 1.6-2.6 627) HEPATIC FUNCTION [id number] 06:00:00 Test Item Value Reference Range Interpretation Comments TOTAL PROTEIN (BEAKER) (test code = 6.4 gm/dL 6.0-8.3 770) ALBUMIN (BEAKER) (test code = 1145) 3.3 g/dL 3.5-5.0 L BILIRUBIN TOTAL (BEAKER) (test code 0.3 mg/dL 0.2-1.2 = 377) BILIRUBIN DIRECT (BEAKER) (test 0.2 mg/dL 0.1-0.5 code = 706) ALKALINE PHOSPHATASE (BEAKER) (test 65 U/L 40-150 code = 346) AST (SGOT) (BEAKER) (test code = 28 U/L 5-34 353) ALT (SGPT) (BEAKER) (test code = 12 U/L 6-55 347) PT/[id number] 05:30:00 Test Item Value Reference Range Interpretation Comments PROTIME (BEAKER) (test code = 13.4 seconds 11.9-14.2 759) INR (BEAKER) (test code = 370) 1.05 <=5.90 PARTIAL THROMBOPLASTIN TIME 37.1 seconds 22.5-36.0 H (BEAKER) (test code = 760) Effective 01/16/2019: PT Reference Range ChangeNew: 11.9-14.2 Previous: 11.7- 14.7RECOMMENDED COUMADIN/WARFARIN INR THERAPY RANGESSTANDARD DOSE: 2.0-3.0 Includes: PROPHYLAXIS for venous thrombosis, systemic embolization; TREATMENT for venous thrombosis and/or pulmonary embolus.HIGH RISK: Target INR is2.5-3.5 for patients wiht mechanical heart valves.CBC W/PLT COUNT & AUTO [id number] 07:05:00 Test Item Value Reference Range Interpretation Comments WHITE BLOOD CELL COUNT (BEAKER) 10.5 K/ L 3.5-10.5 (test code = 775) RED BLOOD CELL COUNT (BEAKER) 2.38 M/ L 4.63-6.08 L (test code = 761) HEMOGLOBIN (BEAKER) (test code = 7.5 GM/DL 13.7-17.5 L 410) HEMATOCRIT (BEAKER) (test code = 22.6 % 40.1-51.0 L 411) MEAN CORPUSCULAR VOLUME (BEAKER) 95.0 fL 79.0-92.2 H (test code = 753) MEAN CORPUSCULAR HEMOGLOBIN 31.5 pg 25.7-32.2 (BEAKER) (test code = 751) MEAN CORPUSCULAR HEMOGLOBIN CONC 33.2 GM/DL 32.3-36.5 (BEAKER) (test code = 752) RED CELL DISTRIBUTION WIDTH 15.7 % 11.6-14.4 H (BEAKER) (test code = 412) PLATELET COUNT (BEAKER) (test code 79 K/CU MM 150-450 L = 756) MEAN PLATELET VOLUME (BEAKER) 10.5 fL 9.4-12.4 (test code = 754) NUCLEATED RED BLOOD CELLS (BEAKER) 1 /100 WBC 0-0 H (test code = 413) (CELLAVISION MANUAL DIFF)2020-05-29 07:05:00 Test Item Value Reference Range Interpretation Comments NEUTROPHILS - REL 61 % (CELLAVISION)(BEAKER) (test code = 2816) LYMPHOCYTES - REL 25 % (CELLAVISION)(BEAKER) (test code = 2817) MONOCYTES - REL 1 % (CELLAVISION)(BEAKER) (test code = 2818) EOSINOPHILS - REL 1 % (CELLAVISION)(BEAKER) (test code = 2819) METAMYELOCYTES - REL 5 % 0-0 H (CELLAVISION)(BEAKER) (test code = 2821) MYELOCYTES - REL 3 % 0-0 H (CELLAVISION)(BEAKER) (test code = 2822) BANDS - REL (CELLAVISION)(BEAKER) 2 % 0-10 (test code = 2826) ATYPICAL LYMPHOCYTES - REL 2 % 0-0 H (CELLAVISION)(BEAKER) (test code = 2829) NEUTROPHILS - ABS 6.41 K/ul 1.78-5.38 H (CELLAVISION)(BEAKER) (test code = 2830) LYMPHOCYTES - ABS 2.63 K/ul 1.32-3.57 (CELLAVISION)(BEAKER) (test code = 2831) MONOCYTES - ABS 0.11 K/uL 0.30-0.82 L (CELLAVISION)(BEAKER) (test code = 2832) EOSINOPHILS - ABS 0.11 K/uL 0.04-0.54 (CELLAVISION)(BEAKER) (test code = 2834) METAMYELOCYTES - ABS 0.53 K/uL 0.00-0.00 H (CELLAVISION)(BEAKER) (test code = 2836) MYELOCYTES-ABS 0.32 K/uL 0.00-0.00 H (CELLAVISION)(BEAKER) (test code = 2837) BANDS - ABS (CELLAVISION)(BEAKER) 0.21 K/uL 0.00-0.80 (test code = 2840) ATYPICAL LYMPHOCYTES - ABS 0.21 K/uL 0.00-0.00 H (CELLAVISION)(BEAKER) (test code = 2858) TOTAL COUNTED (BEAKER) (test code 100 = 1351) PLT MORPHOLOGY (BEAKER) (test Normal code = 486) SMUDGE CELLS (BEAKER) (test code Present = 1371) ANISOCYTOSIS (BEAKER) (test code 1+ few = 961) MICROCYTES (BEAKER) (test code = 2+ moderate 965) POIKILOCYTES (BEAKER) (test code 1+ few = 966) PLATELET CONCENTRATION Adequate (CELLAVISION)(BEAKER) (test code = 3438) Keg Header ID - Kaylee Alanizlucrecia comments: Slide comments:BASIC METABOLIC PANEL 2020-05-29 05:44:00 Test Item Value Reference Range Interpretation Comments SODIUM (BEAKER) 134 meq/L 136-145 L (test code = 381) POTASSIUM (BEAKER) 4.7 meq/L 3.5-5.1 Specimen slightly (test code = 379) hemolyzed CHLORIDE (BEAKER) 99 meq/L 98-107 (test code = 382) CO2 (BEAKER) (test 20 meq/L 22-29 L code = 355) BLOOD UREA NITROGEN 42 mg/dL 7-21 H (BEAKER) (test code = 354) CREATININE (BEAKER) 8.96 mg/dL 0.57-1.25 H Specimen slightly (test code = 358) hemolyzed GLUCOSE RANDOM 91 mg/dL 70-105 (BEAKER) (test code = 652) CALCIUM (BEAKER) 8.1 mg/dL 8.4-10.2 L (test code = 697) EGFR (BEAKER) (test 6 mL/min/1.73 ESTIMAT ED GFR IS code = 1092) sq m NOT ACCURATE CREATININE CLEARANCE IN PREDICTING GLOMERULAR FILTRATION RATE . ESTIMATED GFR I S NOT APPLICABLE FOR DIALYSIS PATIEN TS. Keg Header ID - [id number] 05:42:00 Test Item Value Reference Range Interpretation Comments MAGNESIUM (BEAKER) 1.7 mg/dL 1.6-2.6 Specimen slightly (test code = 627) hemolyzed Keg Header ID - [id number] 05:42:00 Test Item Value Reference Range Interpretation Comments PHOSPHORUS (BEAKER) 4.8 mg/dL 2.3-4.7 H Specimen slightly (test code = 604) hemolyzed Keg Header ID - EDASIHEPATIC FUNCTION [id number] 05:42:00 Test Item Value Reference Range Interpretation Comments TOTAL PROTEIN (BEAKER) 6.1 gm/dL 6.0-8.3 Speci men slightly (test code = 770) hemolyzed ALBUMIN (BEAKER) (test 3.1 g/dL 3.5-5.0 L Speci men slightly code = 1145) hemolyzed BILIRUBIN TOTAL 0.3 mg/dL 0.2-1.2 Specimen sli ghtly (BEAKER) (test code = hemoly zed 377) BILIRUBIN DIRECT 0.2 mg/dL 0.1-0.5 Specimen sl ightly (BEAKER) (test code = hemoly zed 706) ALKALINE PHOSPHATASE 58 U/L 40-150 (BEAKER) (test code = 346) AST (SGOT) (BEAKER) 31 U/L 5-34 Specimen slightly (test code = 353) hemolyzed ALT (SGPT) (BEAKER) 11 U/L 6-55 Specimen slightly (test code = 347) hemolyzed Keg Header ID - [id number]/[id number] 05:19:00 Test Item Value Reference Range Interpretation Comments PROTIME (BEAKER) (test code = 13.4 seconds 11.9-14.2 759) INR (BEAKER) (test code = 370) 1.05 <=5.90 PARTIAL THROMBOPLASTIN TIME 39.4 seconds 22.5-36.0 H (BEAKER) (test code = 760) Effective 01/16/2019: PT Reference Range ChangeNew: 11.9-14.2 Previous: 11.7- 14.7RECOMMENDED COUMADIN/WARFARIN INR THERAPY RANGESSTANDARD DOSE: 2.0-3.0 Includes: PROPHYLAXIS for venous thrombosis, systemic embolization; TREATMENT for venous thrombosis and/or pulmonary embolus.HIGH RISK: Target INR is2.5-3.5 for patients wiht mechanical heart valves.Blood Culture - Routine (Right Venipuncture)2020-05-29 05:01:00 Test Item Value Reference Range Interpretation Comments Result (test code = No growth in 5 days 6463-4) [facility] [id number] 05:01:00 Test Item Value Reference Range Interpretation Comments CULTURE (BEAKER) (test No growth in 5 days code = 1095) BLOOD [id number] 05:01:00 Test Item Value Reference Range Interpretation Comments CULTURE (BEAKER) (test No growth in 5 days code = 1095) Hepatitis panel, [id number] 18:27:00 Test Item Value Reference Range Interpretation Comments Hep A IgM (test code = Nonreactive Nonreactive 65292-2) Hep B C IgM (test code = Nonreactive Nonreactive 88067-6) Hepatitis C Ab (test code = Reactive Nonreactive A 46909-0) HBsAg Screen (test code = Nonreactive Nonreactive 5195-3) FANTA (test code = FANTA) Keg Header ID - DB Lab Interpretation (test Abnormal code = 13726-6) [facility]EL, [id number] 18:27:00 Test Item Value Reference Range Interpretation Comments HEPATITIS A IGM ANTIBODY (BEAKER) Nonreactive Nonreactive (test code = 498) HEPATITIS B CORE IGM ANTIBODY Nonreactive Nonreactive (BEAKER) (test code = 645) HEPATITIS C ANTIBODY (BEAKER) Reactive Nonreactive A (test code = 367) HEPATITIS B SURFACE ANTIGEN (2) Nonreactive Nonreactive (BEAKER) (test code = 2585) Keg Header ID - DBTissue [id number] 13:01:00 Test Item Value Reference Range Interpretation Comments Case Report (test Surgical Pathology code = 104) Report Case: [id number] Authorizing Provider: Myrna Monsalve MD Collected: 05/27/2020 08:20 AM Ordering Location: [address] Received: 05/27/2020 02:50 PM SERVICE Pathologist: Rosa Cisneros MD Specimens: A) - Biopsy, Gastric, random biopsies R/O H. pylori B) - Biopsy, Gastroesophageal Junction, random biopsies R/O Islas's DIAGNOSIS (test code i0yxjQCrMTCqj6sfYHRvqBXy = 3220) ZzEwMzNcZnRuYmpcdWMxIHtc rqKdYYqoj5KfN5DlYuNcUKwv bnNpXGRlZmxhbmcxMDMzXGZ0 ysTxTLGpBRkwHHQqMCedEe2n zJXatOwxJmAvOMTaw8qlxdRF ntaxrDq1f5idDRNxLlH2pTYs OIntU6mrltAevTRiYVAiKRm2 eJ02TAYqxN9ghGIbGJyqxhKm GnF4QYbrIZScClP8KCImnQWi QXRbG0psQRLlJHusFVShYWli dIMlCSX1rFkgt3X0hUNypFIo cYdkTsUgOwHqGYXBi2CjQFh9 jLwdN5QaWBTuVnM1vJYqUUGx EUqzTFLmNQAokkU1aZ40ZAmq lvA1kKFyo6Fjz18mt761dJ2r rPKmCFD4SJPzPBBunYFsBRGz WZS3JNLoiNFsF7r8NzIgvMKb H2I6KaFhyBUuK8A2QrOzbUZf F8B5IwUcyROhRUZthPPuOx0i bUZfxEAhdy0wfo14LBS8j8Xf uYzbIRW0CQS5BhDbQf7gzVAk MWAgAW1jKbGsdNQwUPYnto60 iJfkYBtzbeNdzJ0dRkJoAVXh aWGcCBWyVT6tsKOgNKRftF2e cmxjXHBnYnJkcmhlYWRccGdi waXcDu4jeNmiSKH9HOkeL6kr iN0iThU0AGixN0qruE7uJJj9 NQguaNE3KWWxwG9fVB0inopz s8sbThHyXB8gjjjsf5hwJeEj MD2nwuf9g8mtSsSoHY5jajjr p0kwHnIxDZkySJBgeezsJFKp d5IeckknLFMmd5AdB5LuqJtr G99icNjaE39gNXEhmKvnoS1k pRzvmH3zExFhZbKxRKydeYlq bGFpblxmMVxmczIwXGxhbmcx WUQxAUjgU0jpTlTdQIIrpZlb DPsws1MkJGPcXBPhKkSgXX2o U2BJEEGETUrnHF8AL6CEG6SD MbMSTPVUD6XKWGLTM9UDIPJO IFxwYXIgLSBBTlRSQUwgTVVD B2COSCtDJIwyS2eAE20KGpQB TkFDVElWRSBHQVNUUklUSVMg HX8SZYYEB7ARZAqXFTZKBXqM QUwgTUVUQVBMQVNJQSwgXHBh ciAgIENPTVBMRVRFIFRZUEVc xBFeTR6xW8uKYyYCGlOTZVNW G1NkO0jIYBESJvEJFUgKJTKC G9VZPFRGKZDMN5yVM1iALHLX WNJLNTGWB54WLGJlyrUtWN2T K7VEDLVWCGPRUiAUFGwCK96J UDXJAJJxPOeLD0OCNIEqguSe YD2MW2AWXLIRPSAKMsNEEPPN CRSNMANrF4HhK9TZF4pPT12X MDLtoxpaYOLaBw1jK1WADMOQ PBWPEWdEX7QFQLSZWP8BCTqN ZdmsIC2PN3RVQ5UYEyDMJKIK T0WVZUVRW3FYYIZWRVHakmSk TMNCCBEWS5FLLXORGwXGKL0V C95JFOMXTIHHEWYHCLjOALHQ SBUPURQED6wfAMCnQUNQAFvY NKmKTQZNF0MfB6FVK9oOBLus RUQgQkFSUkVUVCBNRVRBUExB J8rKPCSpflabUNKkvORhpVnj udZsBWada0ZnZFjgPZDwOW9f aDhrFFNbGB5iIKSdH2ndyW0j wri1SoTtSOAtWtE5CDZofcZ7 Xeb3FBQfMRgfu9onp0BmSANp TZc3xDrwNhDyXZIoy3tzbiTb RaYuUEPoKOJkUOHplGXuG666 l9ffo5knxuZloKN0KTIuRYB9 AXfcwdBghqX0LHlmuZRqFtC7 IDtccmVkMFxncmVlbjBcYmx1 AZZbK268SGN4eDiae5mtFBD7 CTXcJOJkTdDmRx6taNFyN209 SJMtXPEPXRMsiTy3VLTromOt sfWlvGVEv019U423d8jrUBCj adIszUmWzldlu2ooI283FGBt cGVydzEyMjQwXHBhcGVyaDE1 ZHRyJQ7seitvXIejBOeyFHJv lrK0EATkaNFyZ4KvBIDvLL9q yczaCTL6PQoyZINmUSS8FeMb EFOna0Khgcg8KgAfhe5ipe10 ODG1x2OubVpmERG4CQL5CrSk Vs1xeNOnYFZyJF3qEbPceXXx WNNams02dQczCFqtGWP5SPSa oyRvp9Mgl9isEzUelcScS2we I0CrOKGjCUCzPQPcCsUxkrRn k2Jjs3SrnJOwxDm8a3axABOv KTMyiWoet5gvTWR9CMTjcAOy S6wyoF1mHCOjTC7aljwqs1fy YYwiWYugDIInaBM7mzG1SQLh hFGjI0RfjM3aAWVgMLuxQIHd loc8JzOfKn3kpFZrrAbtJKrr YmtwYWdlXHBnbmNvbnRccGdu ZGVjXHBsYWluXHBsYWluXGYw XGZzMjRccWxcbGFuZzEwMzNc aGljaFxmMVxkYmNoXGYxXGxv Q3soIuPuSyQeKhp1KZPmwKEc RKCmOqc0ROSmmADiUCUQyBma zY8fDMPmsCcxoA8jfWJ4DLEu klUuaWOTlV3gDTSPlE1aGhD8 FoXjQiQ4SNAkFYdsuQDyeQ8= COMMENT (test code = f5lexGJlPEHtlOAvHqZdPBEo 3359) HGBjd6leJCQhvDGnOaMnWhMr XdPsMuzqmNRcAYGqLcXns0bc s319sZVyz2efRXViMuJ9gNPg HUHpnPDgD366d6ruc0rrybSz pXI8BQBhLRZ7QPndskAvtvH4 WIojsSClEdT1JKhbzoDjMCto jmDcqzIeYsb9KMBcL510HID9 rVbse2qjOUF2NBLdYGViQeSw Xf2awWLuD607YMKzMXPXQZIh nEd8GAErxtZeflFmsGDWd061 A262o4rtSHLunvFkeRfBkfxf k0pbJ433QJGoaUMpkkVbCgLz OKXgjSUpwFO9DFLtSV6wkmba BrYvOQ3lejugMiZwFP7jvoz8 SuBnDJ5eealyWfFxVHwpNNRc suvpDMUxt6CmtqohSP4lJ9Ll b2K1eD6vlQRcHNTesBEbWdHl HKPcas2qoWIrSQesk8NyLRS0 wzD0bSQauHRrUCCpSF25Kimk f4XtAgdeCYP5TJYxjsVie8Ls e4oqNyZcarOhK8znK4PvNJZo XVGhVVAxCcWjrgWqm6Qtv5Gs mNWhiOm7a5ezZWQpFJUlrOej r8fcQXW8UHNpJ9A1cWNoc5vh XRfxBVSbrZQ5ymdgIYrsGQCt woP8exucQOtmPYQdnLO4udge AElaQLGhAvD1qzkjPQvvSCMg BCY3LQvlq588FKY3CRkvDraf YWdlXHBnbmNvbnRccGduZGVj XHBsYWluXHBsYWluXGYwXGZz YhPzfXsueOrvqX8vHmDpLzTv WZwnDW7vSWZoF9racKEdSQRl KEHpN2nhQgFekF6efNdwHXeo cbJvLD9yjFWhwV== CPT Code(s) (test m1fdtANrYEZjmGEeExNmNPLo code = 3357) SRFed3lbIUMkkLCrSuTzQeTz LeFtAtniwNSfSOFfJrNxv6os d698jHXbe9fpLFZlZiY4tIDr BKRuaFImQ721r7vcw8jsvoVr bUE2OZLiJXV9ARhjoqIaoyS0 BPzmoZErUnR4FTocfgGzHKxj fzRvuaHbXgi0XVBlE937OLL8 dCunw6hrFEQ4TSQqYYNfPpLy Ry2aeGQsV908AOEaCICTCYCy zPb9KWVoinDwasOmuATXq347 J930x1puNFOmbxQgzAcJvgfu z2niL523RQKwsVEwtsBlNtPa DPAmvCVsuTG8OONsOX7fnags BiJgNQ4bhdigHgLsRT1vbri6 DkLlBM8ukglwNbHwINjcSNXs sgplORKwc2UdfreuWQ7sQ4Rd j4N3wW7lfMWyBYMfzZYoUdJb MYBueh5iiSIuYDgjw3VaOZW7 aaS6hXPvxIEmUSDkRG50Jjud c6BpMbqwTOA5YJMjklGcw3Jh p3mzQgFaemRgT8yuF3EpNXEg BEZyVTKpXqBkknCnf5Xlu0Do iSVonCb4h3yqRFSsSKArhIlk s1doHJF4SMApT0L7zHMcz0yy YRemPQZvkSX3neffVWxnSKTh qnO0coivJHpgQKBlqNM4buky SHykRTSyXsD7wwssSYcrWCMw ESO8NWfqb494DOL2DZqyPftm YWdlXHBnbmNvbnRccGduZGVj XHBsYWluXHBsYWluXGYwXGZz AbTsiBoezPsoyV6iAeQnTzXt ADiiLH4qNDZaT0asfPZzUWRv ZTAzA4rzXvZcaY6sgOcfQSvb reYjJKr4CyQ9FYmuBDC6SKLj MlxwYXJ9 CLINICAL HISTORY w3lreUPgUCOvbCHrOpKvZHDd (test code = 3356) XKEin3wuTPAfdKSqTqDfCkKf AnTzAtiafEEqRLMhHmEbc5aa i991bDWuo1ocOJDzVfH0xFWd IIJznZWpH474f8bzp5kykyAi mNH2ZHWpDZD6ERxmbaAmuiW0 YMkuoKTgVsW8CUnantYlIPmm miRpjgCxMsb4YQRbY346UQU7 xCcsv1ppYIS3JPBbYIMtWoUz Qh6tmVAuS745SCLfIAEOVCWe qNu6QNSqwvShqiJlvCBJc852 W804j5kxIYXuvcVimGjVmkkb i5psS547SYXbyAUmodZqDwGq FUYjnZWipTL1ICCcXI1xstsm IoPbZI3gsvcfXtDvTL3cgwx7 BuAsJH7jskizSrWlGCjjIFFs lxrvXNXwb2BdygjfUL7aK9Pd j9O9tR6iiSTwVOLhrKItRdFh NILsiu5feFEvAIyyb0KjPWN4 hkI2iLFmtCUdCKCfDH60Twvt p8KbDbteGIA2ZLBkurTyb5Lr j8piTsIiwiQfB7vrB5MdGCAf LSZcAYSsZbXdzlEmf9Nia7Nm gJBlhUj2h7xhORPoZEIagHdt g3skAJN9XCDuT2M1jHBmn4xo XRgaRGIqqMF1ubtaOGjlADHn ufO2etliIEyqNNCucBZ4zojw ACqzDKJcZeU0zlzaTAzzCXPr KBW1FGzrc754RES8COnwYehr YWdlXHBnbmNvbnRccGduZGVj XHBsYWluXHBsYWluXGYwXGZz XyYxtYmjiFxyjG1hZhRnAdVl EOjaQH2vJJLmN5cboABhIFQg FKWaJ9gnThIzwG1znNjgYXdl jhOvZFWoXY1kHZXecTSbiQ== SPECIMEN SOURCE (test x3gikRWzLXKqpCCeGdMnEWCc code = 3377) GEDpl2wpLCSgqHCqFuZvRmZu NoLsSikmqSXsABBwMrGay2eq l118tZXmf1rjZHDiVnX5eJJa WZQxhHWoA437n2git9kdgaUd dCA9GBLuTCO5HUphpjKqqxB4 EConxDVwZyU1XAlujbZuVHyw bxDzdfNdEac3SQRxD257GHU7 tTlql6mvDMA8OMHsJASxMoXc Vn7ihDHeD536TYLsMCMIADPc gUd5VBXxdoTqfdEtlPEQr508 P327z4lqOVGsjyFzpFaQaqtw u9fbG975QRZojUAykmRpIsPn UJNbiCRzcEV9HWNwZV7ckzaz BiKrMO1ytqlfKxSpFS2lckr6 DcWkPH6uumlpJgFcEHitTQUa htrfOTEhy9ZehfzrQJ6sN9Oh t8W0fP5teENqSPYflLUuObIj XNQiut1jfBUpYOtsg6CaSHU6 usF4sVVldKJzEINdZO40Ymvh d7InNpkjVUD8FZKjhwOdm1Si l1xtTpErbfJdZ0baU3YoTHJq LMKnNMXePiQlcnKil0Bfs0Jr lQWfzId6c2iuZCRtIIIdlSvc b0qyIEI4IRTwG8V1qASgu2me XQvtHUKbzXQ1wlknPRasJDUp keY5rnkaYZmjLTGthUN0ekgj WEisSCTzRpO0zbtwLQnuJAZk CJL6QBnst245UHH5XMzjEblc YWdlXHBnbmNvbnRccGduZGVj XHBsYWluXHBsYWluXGYwXGZz InSvuLwusPcgtS1wPbHsXaTs HFhlOO1oNHImL6feiXRgDGPb JLVhX5kcQgXwcU1zdEnbRNcj czIwIEEuIFJhbmRvbSBnYXN0 olgsIDJld6QwoFlupiYzLWCb lWPnWN1nQQrby4TfEXNfarKP RrIJKS3rm57hE6YmffAtH7Zq t87pPxqtuZY1OVKxoGqtMN64 xKHTOHElTJN3M0GuUGMbsi8= GROSS DESCRIPTION d8qkpUFrASAaaYYvPwKbKKPu (test code = 3366) TJPia4jyUMGlwPMfWpBmPaDj DfNbGjjldHXhYAVtDjCoi9fe b099zQHne7zsXVYhZpG8iWQd YRYqaMVbT436MZLhWLywb2ic u4SrINBmgOMgh8P5HNTStnjh xUg2yWjtF14gp6A4QxadN2xs XXDiBGMsB9UzFJ9tBYCcQvp2 VWH3SKF4CACcWLSbL0BuOH9u HPNwgUUnFRs8h5vvdAwpNAYd WTK5z3ihGHxvvfMgCW0jmv9h jUy3x1dgyqUsNFTyYAGqsTIY SQRkS2EpiDdiTy2sgXf0gJdj HndhIKR0Pnl7TF2djg70gwp7 yHmmADWeejgbJuK9POevQGOi ckkgTRa3PLgmRJRzvGxxBGdx YXJncjcyMFxtYXJndDcyMFxt VDYuVkszDQxfSCInWGP8DCam p882BEX6KUohu2rzn1dvhDLl Nfu9XHOxAkAcGcakEWdri6Ax r1cxHVGazh3vWLI6tXHbeBms n3N0cNUsHZQcbLXelxMxVRVv NiB3IQjsHS6rhx40DRJwUCP3 rg9xxFPexOzngaJynWXxTBek V7PeYHRae687NNJtO4JwEVJk c3G2caYmHrAcGKNzcJV2htE0 QCWaFZj4kNWyjiU0dxDilEOu P0ukcE99EiWpaMVuS2IhqW43 AzCbhBOtK1BcyE39MeAelMYm A9NpsH61XzVssNNwXTFmnTAl Dc7rsSUexWXds7TsgJSmGXhr N10ci433GUEdcsOqX1ycxZAe pykuaLEsfsffXUlmyzG4BTUl XHBsYWluXGYwXGZzMjBcbGFu ZzEwMzNcaGljaFxmMFxkYmNo IFDeNCahB9rsPiGkNxJvGRFK DtUPPZRlaZOvZWDzizCii0Gl YWxpbiBsYWJlbGVkIHdpdGgg rZotCPIfpTwqttDjdoKdUC0s GZOkXWFdC9EiJTBnM72xHFDw wA5dQKArAO3aODDqPSJ5ffob MFUas8GvhFUuFSXeGAE1ezFv dNRhYADru2KptSOuRIimhVRc UY89U57tZJ0og9CdluXaANBu u4F4YDD8uUD0FU4iRLD0mwSb QI68WNafQU0cPTqcVC6lFEJi OKqfMGRqD5WmC5N2QP1nGQkf KXUiJKBskWNdIDxfEPG0Ym9b gMPhULTnukW8e1CiPDGqyOmz r7xhZqUzzCr3tiK5eC3oQGxd CQDwp7HuzYKwZMSvIqngUDDp cGFyXHBsYWluXGYxXGZzMjBc bGFuZzEwMzNcaGljaFxmMVxk YqOyQIJdEJywH4euLdHkYvNe MCBCLiBSZWNlaXZlZCBpbiBm o6HaYPmzriXpAIFwiCHuKAmd dGggdGhlIHBhdGllbnQncyBu ZF2tUXXuIBLxQ2OsCONfR35k DQQuvK1fCBWtOP0jLWHCYWQl jD8wyQkqtgYkdQ5dr1fbNOMy JWM4c80hiLebY0VdDD9sMVFp ro40nCu7XHCixFIzz7UvY145 ASNlDAF3iFUajJWkuDqzsVRk GHAncICfMQEnFLD0MPHiIyM9 JZAyPiDreNUgugTwL6wmOWdy hDPiVXCsBSJmwLLntZ5ugfHy enQpeCUalMI9NQPtdG9qcQ88 xmJil3kto7ctixzuLyzkvUQw pDxqxpJsygMuMAFxXLV5UUBN CD1toBqfmH2dRmGiPwIxLIjn KP3rNERnG7vvjXVeQTZuGLMk P5epLpBvuY5toDhmKYohwpPe UIYOGHRvHMbcdKchzG8eVcCe KzMsUUezNE2xVPAqB5uoeRAb MKDnLFGnU9zvNfPrhS8jjYej MVxmczIwXHBhcn0= MICROSCOPIC i5jwkBZrXEOvjIUlUcRdNRGs DESCRIPTION (test EXNah7blUOCjaRZmDqHpSyUn code = 3371) HlQpClwtvJTvTIVaUxNqp6pl c299cGMfn4raBDKmRwH4dOPa NWVavRFwO860PVEeJBqhw9wp i3XtITBnzSHbo8Z3QCSPuzpt jFq3sIuhU96ti0F0TcflQ3cs SJZjDEBfL4FrFL5uXPSmMwu5 QUT2WSK8FHSvEYSzN8KcPR7e EGZmgQMgHDn9z2tbmWcpCUOn TAI0m1otGQpyspHuME0xjb6c cIp1c0iurjWkJMDyIUCogACA FZEnR2XywLooJo5rmCb1oDwe DlefZOX1Qyw6JP1zpl49szc0 kDanZZTsexbqKqD7ALogUVQy harpNQu5SBsnDCUxsTgzLAnb YXJncjcyMFxtYXJndDcyMFxt LIWlKktfGDsnTNSgVVA3HEzp s459OSA5TWqmk9bez6lnwALe Smw6EJGaBtQhTiwzSHggk9Rf z2gmMRBucr3nQSJ8vVWwfGlg f7I7vAGcGQPeeVYbasQiLQWr HsN9PBjtDD4xnc37VHOpNYL5 zo8mdBBktZqhfjIvwCBfFElr Y7MgILCvv911IOMzW3FyLWHq k6B9mrCqIeUfUPJbmHD3fiO2 YJJsAVp3wMOaeiN6siFlqILq T4jylQ94WsXcxXRhZ5LpgN30 AcJnhULqB5IukY73YlIbePYq E8SidI04GhFxqSWvLMSkoQYx Yi6rnNLtiNXdm0ErhHWuPXcx F69li624OMItraXdP8suvAIb jwiznERxqlnmHAjsirN3AODf XHBsYWluXGYxXGZzMjBcbGFu ZzEwMzNcaGljaFxmMVxkYmNo RCJyWQrvU5coZnHqKiVwCOLI HaZMTQT0rC9nXQRxd1oiUQsz b1EylXFeRW93ntIbNACoRJSk mEnsnKqvCK56H02xFF2sVCyi AGZysFUveKPhoEKnn0Vut4ce q3KmnVaiNATqfDYamjbvZSoy NIX6pLIhOIrvy1McxGHyfaP9 kCMaAYhmI89pcVerrAGpjV37 UVW5uO7bsMLnZJKkeXdwg2yc CxJFlvFeY5SrocJzdK9hjXNn vCJ1hR5cVChiSZTmJBBxseFr FAGnYOLarCnnlNtjVM48Y76o DPPfyZ96vmDavwNinQwbjTCy S6LmsGHtdyMvZD4lYMSws87d ETjzazCykS5mm0DdfT5xVw9w BVsqhBljq2DiD9CiaiQteTjt cmkgaXMgbmVnYXRpdmUuIFRo SNUfVSvdOX2gZNI7l8MkTRXu CIOmioEmQKYnaI7ioDFzQVFb fefkXILzZr9dL7TplUqvulXu qS65ogCcTZV0zx7so96zbPHx XXYrESi5lbJ8vI3jPNmyqAXz a0LoXUGiWIKagPGwfU09bpFh XE7caQqwS4ZthAaevMZcr4Vr TcRAjLTqn7P7DU2cfIRuHSLo k3PyKUbuPNwtYYBkvJJumzFl iROqPzALVCZlaU3vlUprrvBr VF68T23wMDSysY16igPaqsHd upRsiOc4aVZqQIEdZK0rOWEt BNAeoO5fZ3P9HRWdkpOaS7Tg IKKcrXVikAahZRWyBJ9vYVCn PLFtt1n8oF0wvfIlvCIbj6Al o0tsv0LjF2rek59vFoTfsdPe YT9tWMPzt94id0k3gYEfBVNi VB7emHTgx8WngOtzEjQStxUt s9QiESJtD7GjqBHuDSGsyNoy d1jjTAmmIDEoWR3pGQAcmn3= SPECIAL STUDIES (test t5owvFMiUUKgq6dwLWLayJCu code = 3376) ZzEwMzNcZnRuYmpcdWMxIHtc nnRmLYcvc3PnN8YnRxRyWTgc bnNpXGRlZmxhbmcxMDMzXGZ0 qdDsPCDxELpqSPRcXLsyAb5c uLOpmZbwAcQqCSEdx8jwtwWP kuhlmJs4z2vsSDTaPgP0mHBe FAncJ1fznrQzkJHsH8MhvUSj jNv2j4aoNrPrKxL2aMIlXIdw D8gpnpLrtYTlSZCsNVc3bH71 UTOzaV7zhOCcUFxbipDoUeP9 ENtuWXMfDmH0VLEssYXgEYHn K1obXZRbPBrnWPBvZHwbvBEt LLK0cRdmc9Y4jSZfmCLyvMdy DhXiRtSgCkQJc9PrMLz9vGnd M4FeDGJoPbQ8aCScYYQmNVlv GAPqDXPqtsP2pGhxudRkx35s eHQyXGYwXGZzMjBcbGkwXHJp RZPJs3InjWqcING4lQb5uXfu ByekCXR8Uqn6LC9osk32byd4 jNqmNUKuuvjfNdM6XRblMYIj glopURg5JQwuMHDyoFV7SLIn vSGqB5QnGWVxIM6stxs0BMC5 XMvbTMNyOrL0DUFmtBLfHHRz sTbfWTmfq321WQP7OqWlNE8f H2Dpm6P0bF0anUBpZYBqqZNz WzYrUHQcpr8axFKmOTbas6Id EJQ7igU0gGJseVIxCXUcWV04 Embnn5TuBkgfx2YiB63mrQZ8 PVpjh3gmCS4tWtH1fzDqKMyd b9spbS1fXdM2ZAfjAF1xEO1r BQZfmF2acurmDTTxVfApnrhz SGPpyYhtlfNlEp3ydSwuOPU4 TVueA8jsgK2wEdQ9TAnsI9kw iB5sUQc3LTuibAD1KSUetG5g ZV6bavbbe6meDPevAZimDUFc mhK6snU9GEGewDHlI9DcgM2n LDEwKY8luyuuo2siOOR2ONsb UUDyBTP2FgGjIIVls8Zgiee2 PdHvn2GmqZFsMVgwO16qk135 VIYgweSkH7uitRSqkunjnKVs hzarQExlcjW7PTNkBTWbWNnv XGYxXGZzMjJcbGFuZzEwMzNc aGljaFxmMVxkYmNoXGYxXGxv P4bvMjKwG3XuMRLyKbWlPEvi PAbwzZIqnHFqaCO6cN8eNL3v IPNiqBAeI5VdDZDorxKhnRUx HNF6xFCwqLJyIJ6xOFrurGOt l5rsn4GcU0cbjDjbbEE0MN5m NIYvLBJrIBgzs6LriZ5sDnhr bGFpblxmMVxmczIyXGxhbmcx BPEnVIfnN0jiYmIaSIHicCyp PIkvk4EbDVSjPHMiIjyfasDe MAz5vrRsPUIposevARJinHmw kH6pXfUtFvEnSjtfLW1tZCKn P5vjtGNgUYWqNQLhH1xoViZf dE5nyZxqTBrfLfIiJnQwRuWM t924iu5bVKLzuLZjtlSWmTSn fA9uCPlyVBnaELirfQOuTBjw z6csHXAxw0d1aZAdMITtkdAr w8beWYyabhUbHDXigXQpgXBc SVGqg88cNKisvQytdMhhANMh s6FgmKfbj9RxBhVjZIatv1Zs L70jzDWngLPyfWkeTCPgjpLc JFChq91mg7uwQPItSfB0jRBt jIO5vJBfbKJxk0HghNdtTSJk k6vbAJVudo3hzghxxFThl1Cy kH0jfcahKXvglDVnrkMpLPPt g8t2xAWoFKVqVOItSRstkDs8 MLHup242ka5ygkA9pVMsJUU2 YWlsYWJsZSBhcmUgZXZhbHVh dGVkXHBsYWluXGYxXGZzMjJc bGFuZzEwMzNcaGljaFxmMVxk WbQqWECoKAvvG7ljQuNjS9Ba SMRdXbHfeUIhS1kkpXQeVTRu YWluXGYxXGZzMjJcbGFuZzEw MzNcaGljaFxmMVxkYmNoXGYx ADduB4zbSuScO6NgXZOtWmXy IFxwbGFpblxmMVxmczIyXGxh klcgFDAoJDkuH2shGaBqYNVt kQpeGJecu8MvHWZyOQJiAlvd jlXjRRc4eyOkZATygplqqBHn blxmMVxmczIyXGxhbmcxMDMz VXblC4fpTqRpBTDbdUliNLrw z1KgHRCrQNGpWqoglqPsLUko pIYkd1exl2ZjV4ctxDtibYM9 TKWvG2yfiCPaxQB3SSG3eJ4e ACiwrjMeGSUev2XrYTJvUGKg KsR2yY9gQNL7TkDAvGmlYYXw YWluXGYxXGZzMjJcbGFuZzEw MzNcaGljaFxmMVxkYmNoXGYx ROujE5gtLiGzF0XdHXGfEaWf zAqhCGqkFQs9KeirdJYvciic MVxmczIyXGxhbmcxMDMzXGhp D5uzBlJsCEAonZsdRVisl8Ei XGYxXGNmMlxmczIyIHMgTWVk kFItiEUVQK97FIYbLKSatBeu oI2anCNBOTHgjkW2p2E3CUhq PIUpTKg5JQyknkKkJBUlzT7l OKEfVG3zGUm2pwQmLWVsn5Yg EM0eUSFdmJHbBFV5RNVhn1Rv Z9Rym7WzUHPbOCDrcm7jzuDh YpEZkGAmRKVvlz22MLMeAX9f A0coBSSyXEMwxuOicFZao9Bb OJZqrIE3pXSgGF3YSaRMm88x IGFuZCBEcnVnIEFkbWluaXN0 scT2sY9gDyUMoBFrHkRJMBco zrNuSWVlbt0rspDlTFFnCYVh w6MemCQxiSYyirHuF5Yvn9Uo TFKujb83PNgmgPCgty79ZD9m E5Edw1PmyT9sDDcfRCAph9Zt bFRwbFBfDGCmz5MoO6yvnsej KNyeuJOulA4zKPVlRZz9QXSr f1ItPVRrp5IpLyCqunYvRVVg GVBhHGBjbT58UWU8mSkcqNcv awLpQC1vTKChkeWvJVCgIFZf bM3dDOosbcYvPMQajgC5g6G4 NLpgIIFtqgDgTpmdBRJ9bpUc geL2lUNzS5rdlheqQOqaLPRt k2VzpY1xkQYGvDTax0TucWQv wEJElWRtKM0xsoZhQC7tCEL3 ODggKENMSUEtODgpIGFzIHF1 OKvqNibvTVE7wiSiTMGeh9We EUpbF3jhX20ioXfczJs3zAOz yPdevHTolXKgQQVwlkF0u2L4 RYXwf6ItnepnJCKzMPifIXMd XGZzMjJcbGFuZzEwMzNcaGlj hEihBbthAvAlXOKhQCxvR2no GzGmXqLaFyfcWPJ1bC== Gross assessment was [facility]'s performed at [facility], code = 2777) Department of Pathology, [address] [place] [address], Technical component [facility]. [place]'s was performed at [facility], (test code = 2778) Department of Pathology, [address] [place] [address], Professional [facility]. ke's component was [facility], performed at (test Department of Pathology, code = 2779) [address] [place] [address], [facility] campusTISSUE [id number] 13:01:00Surgical Pathology Report Case: [id number] Authorizing Provider: Myrna Monsalve MD Collected: 05/27/2020 08:20 AM Ordering Location: [address] Received: 05/27/2020 02:50 PM SERVICE Pathologist: Rosa Cisneros MD Specimens: A) - Biopsy, Gastric, random biopsies R/O H. pylori B) -Biopsy, Gastroesophageal Junction, random biopsies R/O Islas's A. 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 GASTROESOPHAGEAL JUNCTION, ENDOSCOPIC MUCOSAL BIOPSIES- SQUAMOCOLUMNAR MUCOSA WITH ACTIVE CARDITIS- NEGATIVE FOR SPECIALIZED ISLAS METAPLASIA Signing Pathologist Direct Phone Line: [phone] signed by Rosa Cisneros MD on 05/28/2020 at 1:01 PM.[id number] x2, [id number] A. Random gastric biopsy, rule out H. PyloriB. Random GE junctionbiopsy, rule out Islas's A. Received in formalin labeled with the patient's name, medical record number and "gastric biopsy" are two pieces of rees-white mucosa-covered tissue that measure 0.5 x 0.3 x0.2 cm in aggregate. The specimen is submitted in toto following filtration in cassette A1.B. Received in formalin labeled with the patient's name, medical record number and "GE junction biopsy" are two pieces of rees-white mucosa-covered tissue that measure 0.4 x 0.2 x 0.2 cm in aggregate. The specimen is submitted in toto following filtration in cassette B1. DLR/Vikas. Section shows gastric antral andoxyntic mucosa. The antral mucosa shows mild chronic inactive gastritis with incomplete intestinal metaplasia. No active inflammation is present. The oxyntic mucosa shows no significant inflammation. Warthin stain for Helicobacter pylori is negative. There is no dysplasia or carcinoma.B. Section showsgastroesophageal junctional mucosa and squamous (eosphageal) mucosa. The squamous (esophageal) component of GE junctional mucosa shows intercellular edema and elongated vascular papillae and the columnar mucosa shows chronic inflammation with rare neutrophils. No goblet cell metaplasia is seen.The inte rpretation of this case included the use of immunohistochemistry or special stains.Control Slides Examined: In-house known positive controls were evaluated along with the test tissue. These control slides run alongside of the patients sample show appropriate staining. Internal positive and negative controls when available are evaluated Immunohistochemistry technical testing was performed at [facility], Pathology Laboratory where it was developed and its performance characteristics were determined. It has not been cleared or approved by the U.S. Food and Drug Administration. The FDA has determined that such clearance or approval is not necessary. The test is used for clinical purposes. It should not be regarded as investigational or for research. This laboratory is certified under the Clinical Laboratory Improvement Amendments of 1988 (CLIA-88) as qualified to perform highcomplexity clinical laboratory testing.[facility], Department of Pathology, [address] [place] [address], [facility], Department of[facility]ology, [address] [place] [address], [facility], [address] [place] [address], TSK W/PLT COUNT & AUTO [id number] 06:41:00 Test Item Value Reference Range Interpretation Comments WHITE BLOOD CELL COUNT (BEAKER) 10.7 K/ L 3.5-10.5 H (test code = 775) RED BLOOD CELL COUNT (BEAKER) 2.61 M/ L 4.63-6.08 L (test code = 761) HEMOGLOBIN (BEAKER) (test code = 8.4 GM/DL 13.7-17.5 L 410) HEMATOCRIT (BEAKER) (test code = 25.0 % 40.1-51.0 L 411) MEAN CORPUSCULAR VOLUME (BEAKER) 95.8 fL 79.0-92.2 H (test code = 753) MEAN CORPUSCULAR HEMOGLOBIN 32.2 pg 25.7-32.2 (BEAKER) (test code = 751) MEAN CORPUSCULAR HEMOGLOBIN CONC 33.6 GM/DL 32.3-36.5 (BEAKER) (test code = 752) RED CELL DISTRIBUTION WIDTH 15.7 % 11.6-14.4 H (BEAKER) (test code = 412) PLATELET COUNT (BEAKER) (test code 83 K/CU MM 150-450 L = 756) MEAN PLATELET VOLUME (BEAKER) 10.4 fL 9.4-12.4 (test code = 754) NUCLEATED RED BLOOD CELLS (BEAKER) 1 /100 WBC 0-0 H (test code = 413) (CELLAVISION MANUAL DIFF)2020-05-28 06:41:00 Test Item Value Reference Range Interpretation Comments NEUTROPHILS - REL 53 % (CELLAVISION)(BEAKER) (test code = 2816) LYMPHOCYTES - REL 29 % (CELLAVISION)(BEAKER) (test code = 2817) MONOCYTES - REL 7 % (CELLAVISION)(BEAKER) (test code = 2818) EOSINOPHILS - REL 2 % (CELLAVISION)(BEAKER) (test code = 2819) BASOPHILS - REL 1 % (CELLAVISION)(BEAKER) (test code = 2820) METAMYELOCYTES - REL 1 % 0-0 H (CELLAVISION)(BEAKER) (test code = 2821) MYELOCYTES - REL 1 % 0-0 H (CELLAVISION)(BEAKER) (test code = 2822) BANDS - REL (CELLAVISION)(BEAKER) 1 % 0-10 (test code = 2826) ATYPICAL LYMPHOCYTES - REL 5 % 0-0 H (CELLAVISION)(BEAKER) (test code = 2829) NEUTROPHILS - ABS 5.67 K/ul 1.78-5.38 H (CELLAVISION)(BEAKER) (test code = 2830) LYMPHOCYTES - ABS 3.10 K/ul 1.32-3.57 (CELLAVISION)(BEAKER) (test code = 2831) MONOCYTES - ABS 0.75 K/uL 0.30-0.82 (CELLAVISION)(BEAKER) (test code = 2832) EOSINOPHILS - ABS 0.21 K/uL 0.04-0.54 (CELLAVISION)(BEAKER) (test code = 2834) BASOPHILS - ABS 0.11 K/uL 0.01-0.08 H (CELLAVISION)(BEAKER) (test code = 2835) METAMYELOCYTES - ABS 0.11 K/uL 0.00-0.00 H (CELLAVISION)(BEAKER) (test code = 2836) MYELOCYTES-ABS 0.11 K/uL 0.00-0.00 H (CELLAVISION)(BEAKER) (test code = 2837) BANDS - ABS (CELLAVISION)(BEAKER) 0.11 K/uL 0.00-0.80 (test code = 2840) ATYPICAL LYMPHOCYTES - ABS 0.54 K/uL 0.00-0.00 H (CELLAVISION)(BEAKER) (test code = 2858) TOTAL COUNTED (BEAKER) (test code = 100 1351) SMUDGE CELLS (BEAKER) (test code = Present 1371) GIANT PLATELETS (BEAKER) (test code Present = 313) ANISOCYTOSIS (BEAKER) (test code = 1+ few 961) POIKILOCYTES (BEAKER) (test code = 1+ few 966) OVALOCYTES (BEAKER) (test code = 1+ few 477) PLATELET CONCENTRATION Decreased (CELLAVISION)(BEAKER) (test code = 3438) Keg Header ID - Kaylee BansalDawson comments: Slide comments:COMPREHENSIVE METABOLIC [id number] 05:00:00 Test Item Value Reference Range Interpretation Comments TOTAL PROTEIN 6.8 gm/dL 6.0-8.3 (BEAKER) (test code = 770) ALBUMIN (BEAKER) 3.4 g/dL 3.5-5.0 L (test code = 1145) ALKALINE PHOSPHATASE 78 U/L 40-150 (BEAKER) (test code = 346) BILIRUBIN TOTAL 0.3 mg/dL 0.2-1.2 (BEAKER) (test code = 377) SODIUM (BEAKER) (test 138 meq/L 136-145 code = 381) POTASSIUM (BEAKER) 4.1 meq/L 3.5-5.1 (test code = 379) CHLORIDE (BEAKER) 100 meq/L 98-107 (test code = 382) CO2 (BEAKER) (test 26 meq/L 22-29 code = 355) BLOOD UREA NITROGEN 27 mg/dL 7-21 H (BEAKER) (test code = 354) CREATININE (BEAKER) 6.83 mg/dL 0.57-1.25 H (test code = 358) GLUCOSE RANDOM 95 mg/dL 70-105 (BEAKER) (test code = 652) CALCIUM (BEAKER) 8.6 mg/dL 8.4-10.2 (test code = 697) AST (SGOT) (BEAKER) 28 U/L 5-34 (test code = 353) ALT (SGPT) (BEAKER) 9 U/L 6-55 (test code = 347) EGFR (BEAKER) (test 8 mL/min/1.73 ESTIMAT ED GFR IS code = 1092) sq m NOT ACCURATE CREATININE CLEARANCE IN PREDICTING GLOMERULAR FILTRATION RATE . ESTIMATED GFR I S NOT APPLICABLE FOR DIALYSIS PATIEN TS. Keg Header ID - BONILLA [facility] METABOLIC [id number] 05:00:00 Test Item Value Reference Range Interpretation Comments SODIUM (BEAKER) 138 meq/L 136-145 (test code = 381) POTASSIUM (BEAKER) 4.1 meq/L 3.5-5.1 (test code = 379) CHLORIDE (BEAKER) 100 meq/L 98-107 (test code = 382) CO2 (BEAKER) (test 26 meq/L 22-29 code = 355) BLOOD UREA NITROGEN 27 mg/dL 7-21 H (BEAKER) (test code = 354) CREATININE (BEAKER) 6.83 mg/dL 0.57-1.25 H (test code = 358) GLUCOSE RANDOM 95 mg/dL 70-105 (BEAKER) (test code = 652) CALCIUM (BEAKER) 8.6 mg/dL 8.4-10.2 (test code = 697) EGFR (BEAKER) (test 8 mL/min/1.73 ESTIMAT ED GFR IS code = 1092) sq m NOT ACCURATE CREATININE CLEARANCE IN PREDICTING GLOMERULAR FILTRATION RATE . ESTIMATED GFR I S NOT APPLICABLE FOR DIALYSIS PATIEN TS. [id number] 04:45:00 Test Item Value Reference Range Interpretation Comments MAGNESIUM (BEAKER) (test code = 1.9 mg/dL 1.6-2.6 627) Keg Header ID - BONILLA EPATIC FUNCTION [id number] 04:45:00 Test Item Value Reference Range Interpretation Comments TOTAL PROTEIN (BEAKER) (test code = 6.8 gm/dL 6.0-8.3 770) ALBUMIN (BEAKER) (test code = 1145) 3.4 g/dL 3.5-5.0 L BILIRUBIN TOTAL (BEAKER) (test code 0.3 mg/dL 0.2-1.2 = 377) BILIRUBIN DIRECT (BEAKER) (test 0.1 mg/dL 0.1-0.5 code = 706) ALKALINE PHOSPHATASE (BEAKER) (test 78 U/L 40-150 code = 346) AST (SGOT) (BEAKER) (test code = 28 U/L 5-34 353) ALT (SGPT) (BEAKER) (test code = 9 U/L 6-55 347) Keg Header ID - BONILLA [id number] 04:33:00 Test Item Value Reference Range Interpretation Comments D-Dimer, Quant (test code 3.35 <0.50 MG/L FEU H = 39022-5) FANTA (test code = FANTA) Intended Use: [...] range. Lab Interpretation (test Abnormal code = 17216-4) [facility] campusD-[id number] 04:33:00 Test Item Value Reference Range Interpretation Comments D-DIMER QUANTITATIVE (BEAKER) 3.35 MG/L FEU <0.50 H (test code = [...] exclusion of thrombosis is within 95-100% range. [id number] 04:31:00 Test Item Value Reference Range Interpretation Comments PROTIME (BEAKER) (test code = 13.1 seconds 11.9-14.2 759) INR (BEAKER) (test code = 370) 1.02 <=5.90 PARTIAL THROMBOPLASTIN TIME 37.5 seconds 22.5-36.0 H (BEAKER) (test code = 760) Effective 01/16/2019: PT Reference Range ChangeNew: 11.9-14.2 Previous: 11.7- 14.7RECOMMENDED COUMADIN/WARFARIN INR THERAPY RANGESSTANDARD DOSE: 2.0-3.0 Includes: PROPHYLAXIS for venous thrombosis, systemic embolization; TREATMENT for venous thrombosis and/or pulmonary embolus.HIGH RISK: Target INR is2.5-3.5 for patients wiht mechanical heart valves.Hepatitis C PCR, Quantitative 2020-05-27 22:57:00 Test Item Value Reference Range Interpretation Comments HCV PCR, Quantitative HCV RNA not detected HCV RNA not (test code = 71685-3) detected FANTA (test code = FANTA) This test uses a Real-Time Polymerase Chain Reaction (RT-PCR) methodology and was performed using BAIRON Ampliprep/BAIRON TaqMan HCV test kit version 2.0 ([employer] Reportable range for this assay is 15 - 100,000,000 IU per mL (1.18 - 8.00 Log IU/mL). Lab Interpretation Normal (test code = 02901-0) [facility] campusHEPATITIS C PCR, [id number] 22:57:00 Test Item Value Reference Range Interpretation Comments HCV RESULT COMPONENT HCV RNA not detected HCV RNA not detected (BEAKER) (test code = 2699) This test uses a Real-Time Polymerase Chain Reaction (RT-PCR) methodology and was performed using [employer] Ampliprep/BAIRON TaqMan HCV test kit version 2.0 ([employer]).Reportable range for this assay is 15 - 100,000,000 IU per mL (1.18 - 8.00 Log IU/mL).Manual [id number] 12:07:00 Test Item Value Reference Range Interpretation [...] few Lab Interpretation (test code = Abnormal 64599-1) [facility] W/PLT COUNT & AUTO [id number] 12:07:00 Test Item Value Reference Range Interpretation [...] (BEAKER) (test code = 1+ few 477) BASIC METABOLIC [id number] 04:27:00 Test Item Value Reference Range Interpretation [...] S NOT APPLICABLE FOR DIALYSIS PATIEN TS. Keg Header ID - BONILLA [id number] 04:25:00 Test Item Value Reference Range Interpretation Comments MAGNESIUM (BEAKER) (test code = 2.0 mg/dL 1.6-2.6 627) Keg Header ID - BONILLA MHEPATIC FUNCTION [id number] 04:25:00 Test Item Value Reference Range Interpretation [...] (test code = 7 U/L 6-55 347) Keg Header ID - BONILLA [id number] 04:09:00 Test Item Value Reference Range Interpretation [...] Maddie Leon code = 2849) Bebeto Dsouza [facility] campusPERIPHERAL BLOOD SMEAR - PATHOLOGIST REVIEW 2020-05-26 14:31:00 Test Item Value Reference Range Interpretation Comments PERIPHERAL SMR Macrocytic anemia, REVIEW (BEAKER) 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 WBCs with mild left shift, including occasional myeloid precursors, no blasts seen. Few hypersegmented neutrophils. Thrombocytopenia with unremarkable morphology. [id number] Maddie Leon 2 (BEAKER) (test Bebeto Dsouza code = 2849) [id number] 13:50:00 Test Item Value Reference Range Interpretation [...] the exclusion of thrombosis is within 95-100% range.CBC W/PLT COUNT & AUTO [id number] 07:48:00 Test Item Value Reference Range Interpretation [...] CONCENTRATION Decreased (CELLAVISION)(BEAKER) (test code = 3438) Keg Header ID - Chris Mtz comments: Slide comments:COMPREHENSIVE METABOLIC [id number] 05:43:00 Test Item Value Reference Range Interpretation [...] S NOT APPLICABLE FOR DIALYSIS PATIEN TS. Keg Header [facility] - [facility] [id number] 05:38:00 Test Item Value Reference Range Interpretation [...] S NOT APPLICABLE FOR DIALYSIS PATIEN TS. [id number] 05:34:00 Test Item Value Reference Range Interpretation Comments PHOSPHORUS (BEAKER) (test code = 7.6 mg/dL 2.3-4.7 H 604) Keg Header ID - [id number] 05:34:00 Test Item Value Reference Range Interpretation Comments MAGNESIUM (BEAKER) (test code = 2.0 mg/dL 1.6-2.6 627) Keg Header ID - EDASIHEPATIC FUNCTION [id number] 05:34:00 Test Item Value Reference Range Interpretation [...] (test code = 6 U/L 6-55 347) Keg Header ID - EDASIPT/[id number] 04:50:00 Test Item Value Reference Range Interpretation [...] INR is2.5-3.5 for patients wiht mechanical heart valves.CALCIUM, [id number] 03:59:00 Test Item Value Reference Range Interpretation Comments CALCIUM IONIZED (BEAKER) (test 1.08 mmol/L 1.12-1.27 L code = 698) PH, BLOOD (BEAKER) (test code = 7.49 1810) TSH/Free T4 If [id number] 20:19:00 Test Item Value Reference Range Interpretation Comments TSH (test code = 3.581 0.350- 4.940 uIU/mL 10403-3) FANTA (test code = FANTA) Keg Header ID - ABBY F Lab Interpretation (test Normal code = 41285-4) [facility] campusTSH/FREE T4 IF [id number] 20:19:00 Test Item Value Reference Range Interpretation Comments THYROID STIMULATING HORMONE 3.581 uIU/mL 0.350-4.940 (BEAKER) (test code = 772) Keg Header ID - ABBY FHEMOGLOBIN AND [id number] 19:42:00 Test Item Value Reference Range Interpretation Comments HEMOGLOBIN (BEAKER) (test code = 9.0 GM/DL 13.7-17.5 L 410) HEMATOCRIT (BEAKER) (test code = 26.7 % 40.1-51.0 L 411) Keg Header ID - 6000CBC W/PLT COUNT & AUTO [id number] 14:10:00 Test Item Value Reference Range Interpretation [...] H PERCENT (BEAKER) (test code = 2801) [id number] 12:23:00 Test Item Value Reference Range Interpretation [...] 125-220 H FANTA (test code = FANTA) Keg Header ID - CAROLINA F Lab Interpretation (test Abnormal code = 03621-1) [facility] campusLACTATE DEHYDROGENASE (LDH)2020-05-25 12:15:00 Test Item Value Reference Range Interpretation Comments LACTATE DEHYDROGENASE (BEAKER) (test 341 U/L 125-220 H code = 635) Keg Header ID Joseph NORRIS FProthrombin time/[id number] 12:13:00 Test Item Value Reference Range Interpretation [...] valves. Lab Interpretation Abnormal (test code = 90485-2) [facility] campusPROTHROMBIN TIME/[id number] 12:13:00 Test Item Value Reference Range Interpretation [...] for patients wiht mechanical heart valves.HEMOGLOBIN AND [id number] 12:01:00 Test Item Value Reference Range Interpretation Comments HEMOGLOBIN (BEAKER) (test code = 9.0 GM/DL 13.7-17.5 L 410) HEMATOCRIT (BEAKER) (test code = 27.0 % 40.1-51.0 L 411) Keg Header ID - [id number] 11:50:00 Test Item Value Reference Range Interpretation Comments Haptoglobin (test code = 172 mg/dL 14258 4542-7) FANTA (test code = FANTA) Keg Header ID Joseph Crump Lab Interpretation (test Normal code = 50081-7) [facility] campusHAPTOGLOBIN2020-10-05 11:50:00 Test Item Value Reference Range Interpretation Comments HAPTOGLOBIN (BEAKER) (test code = 172 mg/dL 14258 366) Keg Header ID Joseph NORRIS F2D Echo W/Doppler(CW/PW/Color)2020-05-25 10:53:54 Ejection FractionSLEH ECHO HEARTLAB MKCKESSON CPACSInterface, External Ris In - 05/25/2020 10:54 AM CDTTransthoracic Echocardiography Report (TTE) Demographics Patient Name THIERRY PADILLA Date ofStudy 05/24/2020 KYLIE Gender Male Visit Number [id number] Race Unknown Room Number 7217 Number Date of 1965 Referring Physician Age55 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 Specifically, no testicular torsion. Signed: Roya Verde Verified Date/Time: 05/25/2020 08:58:57 US testicular [...] normal scrotal ultrasound.Specifically, no testicular torsion. Signed: Roya Verde Verified Date/Time: 05/25/2020 08:58:57 [facility] 08:16:00 Test Item Value Reference Range Interpretation Comments Ferritin (test code = 70993.32 ng/mL 5-275 H 2276-4) FANTA (test code = FANTA) Keg Header ID - EDASI Lab Interpretation (test Abnormal code = 22240-5) [facility]2020-[facility]-05 08:16:00 Test Item Value Reference Range Interpretation Comments FERRITIN (BEAKER) (test code = 69865.32 ng/mL 5.00-275.00 H 361) Keg Header ID - EDASICBC W/PLT COUNT & AUTO [id number] 08:02:00 Test Item Value Reference Range Interpretation [...] CONCENTRATION Decreased (CELLAVISION)(BEAKER) (test code = 3438) Keg Header ID - Jonna Pascual comments: Slide comments:RAD, CHEST, 1 VIEW, NON [id number] 04:42:00Reason for exam:->pulmonary edemaShould this be performed [...] 04:42:11 XR chest 1 view portable / [id number] 04:42:00 Interface, External Ris In - 05/25/2020 4:44 AM CDTFINAL REPORT RAD, CHEST, 1 VIEW, NON DEPT INDICATION: pulmonary edema COMPARISON: Prior day's exam FINDINGS: Portable frontal view of the chest. IMPRESSION: Support Lines: Stable. Lungs and pleura: Unchanged venous congestion and interstitial opacities. No consolidation or effusion. No pneumothorax.Heart and mediastinum: Stable contours.Additional findings: None. Signed: Sally Renae Verified Date/Time: 05/25/2020 04:42:11 [facility] HospitalIron, TIBC, % sat. (without ferritin)2020-05-25 04:31:00 Test Item Value Reference Range Interpretation Comments Iron (test code = 2498-4) 118.0 ug/dL 40-160 TIBC (test code = 2500-7) 170 ug/dL 250-450 L Iron % Saturation (test 69 % 20-55 H code = 2502-3) FANTA (test code = FANTA) Keg Header ID - EDASI Lab Interpretation (test Abnormal code = 21158-9) [facility] campusIRON, TIBC, % SAT. (WITHOUT FERRITIN)2020-05-25 04:31:00 Test Item Value Reference Range Interpretation Comments IRON (BEAKER) (test code = 547) 118.0 ug/dL 40.0-160.0 TOTAL IRON BINDING CAPACITY 170 ug/dL 250-450 L (BEAKER) (test code = 769) IRON % SATURATION (2) (BEAKER) 69 % 20-55 H (test code = 2590) Keg Header ID - EDASITroponin [id number] 04:23:00 Test Item Value Reference Range Interpretation Comments Troponin I (test code = 0.46 ng/mL 0-0.03 60828-8) FANTA (test code = FANTA) Troponin I [...] DB Lab Interpretation (test Abnormal code = 27288-4) [facility] campusTROPONIN [id number] 04:23:00 Test Item Value Reference Range Interpretation [...] failure, acidosis, acute neurological disease, and persistent tachyarrhythmia.Keg Header ID - [id number] 04:20:00 Test Item Value Reference Range Interpretation Comments PHOSPHORUS (BEAKER) (test code = 10.5 mg/dL 2.3-4.7 HH 604) Keg Header ID - DBCOMPREHENSIVE METABOLIC [id number] 04:19:00 Test Item Value Reference Range Interpretation [...] S NOT APPLICABLE FOR DIALYSIS PATIEN TS. Keg Header ID - [id number] 04:11:00 Test Item Value Reference Range Interpretation Comments MAGNESIUM (BEAKER) (test code = 2.0 mg/dL 1.6-2.6 627) Keg Header ID - DBHEPATIC FUNCTION [id number] 04:11:00 Test Item Value Reference Range Interpretation [...] (test code = 9 U/L 6-55 347) Keg Header ID - [id number] 04:11:00 Test Item Value Reference Range Interpretation [...] is2.5-3.5 for patients wiht mechanical heart valves.Reticulocyte [id number] 04:06:00 Test Item Value Reference Range Interpretation Comments % Retic (test code = 1.5 % 0.5-1.8 70373-2) FANTA (test code = FANTA) Keg Header ID - 6000 Lab Interpretation (test Normal code = 88900-8) [facility] campusRETICULOCYTE [id number] 04:06:00 Test Item Value Reference Range Interpretation Comments RETICULOCYTE COUNT PCT (BEAKER) (test 1.5 % 0.5-1.8 code = 575) Keg Header ID - 6000Lactic acid, [id number] 04:05:00 Test Item Value Reference Range Interpretation Comments Lactate, Venous (test code = 0.42 mmol/L 0.5-2.2 L 2872) FANTA (test code = FANTA) Keg Header ID - DB Lab Interpretation (test Abnormal code = 56493-9) [facility] campusLACTIC ACID, [id number] 04:05:00 Test Item Value Reference Range Interpretation Comments LACTATE BLOOD VENOUS (2) (BEAKER) 0.42 mmol/L 0.50-2.20 L (test code = 2872) Keg Header ID - DBCALCIUM, [id number] 04:03:00 Test Item Value Reference Range Interpretation Comments CALCIUM IONIZED (BEAKER) (test 1.02 mmol/L 1.12-1.27 L code = 698) PH, BLOOD (BEAKER) (test code = 7.44 1810) Hepatitis B surface [id number] 21:41:00 Test Item Value Reference Range Interpretation Comments HBsAg Screen (test code Nonreactive Nonreactive = 5195-3) FANTA (test code = FANTA) Specimen is considered negative for HBsAg. Lab Interpretation (test Normal code = 78374-7) [facility]HEPATITIS [facility] SURFACE [id number] 21:41:00 Test Item Value Reference Range Interpretation Comments HEPATITIS B SURFACE ANTIGEN (2) Nonreactive Nonreactive (BEAKER) (test code = 2585) Specimen is considered negative for HBsAg.HEMOGLOBIN AND [id number] 20:59:00 Test Item Value Reference Range Interpretation Comments HEMOGLOBIN (BEAKER) (test code = 6.9 GM/DL 13.7-17.5 L 410) HEMATOCRIT (BEAKER) (test code = 20.8 % 40.1-51.0 L 411) Keg Header ID - [id number] [id number] 18:22:00 Test Item Value Reference Range Interpretation [...] failure, acidosis, acute neurological disease, and persistent tachyarrhythmia.Keg Header ID - CECILIAGB-type Natriuretic Factor (BNP)2020-05-24 18:01:00 Test Item Value Reference Range Interpretation Comments BNP (test code = 65644-9) 202 pg/mL 0-100 H FANTA (test code = FANTA) Keg Header ID - CECILIAG Lab Interpretation (test Abnormal code = 59560-0) [facility] NATRIURET[facility] FACTOR (BNP)2020-05-24 18:01:00 Test Item Value Reference Range Interpretation Comments B-TYPE NATRIURETIC PEPTIDE (BEAKER) 202 pg/mL 0-100 H (test code = 700) Keg Header ID - CHANELLIV-1 Antigen with HIV-1/2 [id number] 13:43:00 Test Item Value Reference Range Interpretation Comments HIV-1 Antigen with HIV 1&2 Nonreactive Nonreactive Antibody (test code = 34118-1) Lab Interpretation (test code = Normal 03817-4) [facility]TIGEN WITH HIV-1/2 [id number] 13:43:00 Test Item Value Reference Range Interpretation Comments HIV-1 ANTIGEN WITH HIV 1\\T\\2 Nonreactive Nonreactive ANTIBODY (2) (BEAKER) (test code = 2586) TROPONIN [id number] 13:42:00 Test Item Value Reference Range Interpretation [...] failure, acidosis, acute neurological disease, and persistent tachyarrhythmia.Keg Header ID - CHERYLASIC METABOLIC [id number] 13:37:00 Test Item Value Reference Range Interpretation [...] S NOT APPLICABLE FOR DIALYSIS PATIEN TS. Keg Header ID - [id number] 13:10:00 Test Item Value Reference Range Interpretation Comments PHOSPHORUS (BEAKER) (test code = 6.3 mg/dL 2.3-4.7 H 604) Keg Header ID - ROSIANGHEMOGLOBIN AND [id number] 12:38:00 Test Item Value Reference Range Interpretation Comments HEMOGLOBIN (BEAKER) (test code = 7.7 GM/DL 13.7-17.5 L 410) HEMATOCRIT (BEAKER) (test code = 22.7 % 40.1-51.0 L 411) Keg Header ID - 6000Hemoglobin [id number] 09:17:00 Test Item Value Reference Range Interpretation Comments Hemoglobin A1C (test code = 4548-4) 5.8 % 4.3-6.1 Lab Interpretation (test code = Normal 57058-4) [facility] [id number] 09:17:00 Test Item Value Reference Range Interpretation Comments HEMOGLOBIN A1C (BEAKER) (test code = 5.8 % 4.3-6.1 368) TROPONIN [id number] 08:48:00 Test Item Value Reference Range Interpretation Comments TROPONIN I (BEAKER) (test code = 0.49 ng/mL 0.00-0.03 HH 397) Troponin I (TnI) [...] failure, acidosis, acute neurological disease, and persistent tachyarrhythmia.Keg Header ID - ROSIANGBASIC METABOLIC [id number] 08:33:00 Test Item Value Reference Range Interpretation [...] S NOT APPLICABLE FOR DIALYSIS PATIEN TS. Keg Header ID - ROSIANGHEMOGLOBIN AND [id number] 08:12:00 Test Item Value Reference Range Interpretation Comments HEMOGLOBIN (BEAKER) (test code = 8.1 GM/DL 13.7-17.5 L 410) HEMATOCRIT (BEAKER) (test code = 23.5 % 40.1-51.0 L 411) Keg Header ID - 6000Vitamin B12 and [id number] 05:56:00 Test Item Value Reference Range Interpretation Comments Vitamin B12 (test code = 237 pg/mL 438-088 0947-9) Folate (test code = 4.00 ng/mL >=7.00 L 2284-8) FANTA (test code = FANTA) Keg Header ID - EDASI Lab Interpretation (test Abnormal code = 73242-3) [facility]12 AND [id number] 05:56:00 Test Item Value Reference Range Interpretation Comments VITAMIN B12 (BEAKER) (test code = 237 pg/mL 213-816 774) FOLATE (BEAKER) (test code = 362) 4.00 ng/mL >=7.00 L Keg Header ID - EDASIBASIC METABOLIC [id number] 04:53:00 Test Item Value Reference Range Interpretation [...] S NOT APPLICABLE FOR DIALYSIS PATIEN TS. Keg Header ID - [id number] 04:52:00 Test Item Value Reference Range Interpretation Comments PHOSPHORUS (BEAKER) (test code = 13.6 mg/dL 2.3-4.7 HH 604) Keg Header ID - EDASICALCIUM, [id number] 04:49:00 Test Item Value Reference Range Interpretation Comments CALCIUM IONIZED (BEAKER) (test 0.96 mmol/L 1.12-1.27 L code = 698) PH, BLOOD (BEAKER) (test code = 7.23 1810) [id number] 04:42:00 Test Item Value Reference Range Interpretation Comments MAGNESIUM (BEAKER) (test code = 2.6 mg/dL 1.6-2.6 627) Keg Header ID - EDASIHEPATIC FUNCTION [id number] 04:42:00 Test Item Value Reference Range Interpretation [...] (test code = 12 U/L 6-55 347) Keg Header ID - EDASIPT/[id number] 04:41:00 Test Item Value Reference Range Interpretation [...] mechanical heart valves.CBC W/PLT COUNT & AUTO [id number] 04:37:00 Test Item Value Reference Range Interpretation [...] 0-1 H PERCENT (BEAKER) (test code = 2803) LACTIC ACID, [id number] 04:29:00 Test Item Value Reference Range Interpretation Comments LACTATE BLOOD VENOUS (2) (BEAKER) 0.34 mmol/L 0.50-2.20 L (test code = 9922) Keg Header ID - YEFRI, [id number] 04:16:00 Test Item Value Reference Range Interpretation Comments ABO Grouping (test code = 1768) O Rh Factor (test code = 2589) [facility]2020-[facility]-24 04:13:00 Test Item Value Reference Range Interpretation Comments SARS-COV2/RT-PCR Negative Not Detected, (test code = Negative, See 60202-5) external report for linked test SARS-COV-2 [facility] PERFORMING LAB (test code = 41726-7) FANTA (test code = Negative results do [...] of the Act. Fact Sheet for Healthcare Providers:https://www.[employer] [facility]/Documents/Xper t%20Xpress%20SARS%20CoV- 2/Fact%20Sheets/302-1772 %19DERW-JQH-9%20HEALTHCA RE%20PROVIDERS%20FACT%20 SHEET.pdf Fact Sheet for Healthcare Patients:https://www.[employer].Level/Documents/Xpert %20Xpress%20SARS%20CoV-2 /Fact%20Sheets/3023801% 99EFDI-EXE-6%20PATIENT%2 0FACT%20SHEET.pdf Performing Laboratory:[facility] [place] [address] [facility])2020-05-24 04:13:00 Test Item Value Reference Range Interpretation Comments SARS-COV2/RT-PCR (test code Negative Not Detected, Negative, = 8034819) See external report for linked test SARS-COV-2 PERFORMING LAB [facility] (test code = 4146839) Negative results do not preclude SARS-CoV-2 infection [...] of the Act.Fact Sheet for Healthcare Pro viders:https://www.[employer].Level/Documents/Xpert%20Xpress%20SARS%20CoV-2/Fact%20Sh eets/3023802%00BMUU-IRD-1%20HEALTHCARE%20PROVIDERS%20FACT%20SHEET.pdfFact Sheet for Healthcare Patients:https://www.[employer]/Documents/Xpert%20Xpress%20SARS%20CoV-2/Fact%20Sheets/3023801%20SARS-COV -2%20PATIENT%20FACT%20SHEET.pdfPerforming Laboratory:[facility], [place] [address]EL/[id number] 03:29:00 Test Item Value Reference Range Interpretation [...] is2.5-3.5 for patients wiht mechanical heart valves.TROPONIN [id number] 02:23:00 Test Item Value Reference Range Interpretation [...] failure, acidosis, acute neurological disease, and persistent tachyarrhythmia.Keg Header ID - DEE DEE WBASIC METABOLIC [id number] 02:22:00 Test Item Value Reference Range Interpretation [...] S NOT APPLICABLE FOR DIALYSIS PATIEN TS. Keg Header ID Joseph FUNEZ [id number] 02:21:00 Test Item Value Reference Range Interpretation Comments PHOSPHORUS (BEAKER) (test code = 14.1 mg/dL 2.3-4.7 HH 604) Keg Header ID Joseph FUNEZ [id number] 02:16:00 Test Item Value Reference Range Interpretation Comments MAGNESIUM (BEAKER) (test code = 2.6 mg/dL 1.6-2.6 627) Keg Header ID - DEE DEE WHEPATIC FUNCTION [id number] 02:16:00 Test Item Value Reference Range Interpretation [...] (test code = 10 U/L 6-55 347) Keg Header ID Joseph FUNEZ WB-TYPE NATRIURETIC FACTOR (BNP)2020-05-24 02:12:00 Test Item Value Reference Range Interpretation Comments B-TYPE NATRIURETIC PEPTIDE (BEAKER) 459 pg/mL 0-100 H (test code = 700) Keg Header ID Joseph FUNEZ WCBC W/PLT COUNT & AUTO [id number] 02:11:00 Test Item Value Reference Range Interpretation [...] 0-1 H PERCENT (BEAKER) (test code = 2809) LACTIC ACID, [id number] 02:03:00 Test Item Value Reference Range Interpretation Comments LACTATE BLOOD VENOUS (2) (BEAKER) 0.68 mmol/L 0.50-2.20 (test code = 2872) Keg Header ID - DEE DEE ANNIEpecimen slightly lipemicRAD, CHEST, 1 VIEW, NON DEPT [...] MDReport Verified Date/Time: 05/24/2020 01:55:13 Blood gas, [id number] 01:37:00 Test Item Value Reference Range Interpretation Comments pH, Duc (test code = 2746-6) 7.27 7.32-7.42 L pCO2, Duc (test code = 755) 26 41- 51 mmHg L pO2, Duc (test code = 2705-2) 63 25- 40 mmHg H O2 Sat, Duc (test code = 2711-0) 89.7 % 40-70 H HCO3, Duc (test code = 50188-5) 12 mmol/L 21-29 L Base Excess, Duc (test code = -14.0 mmol/L -2-3 L 1927-3) Patient Temperature (test code = 37.0 C 8310-5) FIO2 (test code = 1819) 100 % Lab Interpretation (test code = Abnormal 68589-4) [facility], [id number] 01:37:00 Test Item Value Reference Range Interpretation [...] (BEAKER) (test code = 1819) 100.0 % [id number] 00:00:00Ordered by an unspecified provider.[facility])2020-02-23 11:58:00 Test Item Value Reference Range Interpretation Comments SARS-COV2/RT-PCR (test code = Negative Not Detected, Negative 5915210) SARS-COV-2 PERFORMING LAB [facility] (test code = 0756528) Negative result for this test determines that [...] 564(g) of the Act.Fact Sheet for Healthcare Providers:https://www.[employer].com/sites/default/files/product/documents/Fact_Tatiana n_EK_Raokmzwme_Pwhc_IAPT-TbL-5.pdfFact Sheet for Healthcare Patients:https://www.[employer].Level/sites/default/files/product/ documents/Ygww_Rgquk_Rhenzsiu_Gkfs_OFFR-HhS-7.pdfPerforming Laboratory:[facility] [place] [address]
[2020-06-17] MEDS ORDERED: FUROSEMIDE 100 MG/10 ML VIAL IV ONE (08:34)
[2020-06-17] MEDS ORDERED: ASPIRIN 81 MG CHEWABLE TABLET ONE (08:34)
[2020-06-17 08:47] LABS: Absolute Lymphocytes (CBC) 4.5 K/uL (0.7-4.9); Basophils % 0.6 % (0-1.3); Hematocrit 25.6 % (39.6-49.0); Lymphocytes % 16.6 % (15.3-44.8); MPV 7.6 fL (7.6-11.3); Protime INR 1.1; RBC Red Blood Cell Count 2.68 M/uL (4.33-5.43)
[2020-06-17 08:49] LABS: Arterial Blood Carboxyhemoglob 4.1 % (0-1.5); Blood Gas Oxyhemoglobin 80.7 % (94-97); Blood O2 Saturation 85.3 % (92-98.5)
[2020-06-17] MEDS ORDERED: AZITHROMYCIN IV 500 MG in NA CHLORIDE 0.9% 250 ML IVPB ONE (09:15)
--- NOTE | 2020-06-17 09:15 | RAD REPORT ---
EXAM DESCRIPTION: RAD - Chest Single View - 06/17/2020 8:51 am CLINICAL HISTORY: CONGESTION Chest pain. COMPARISON: Chest Single View dated 05/23/2020; Chest Single View dated 05/06/2020; Chest Single View dated 02/25/2020; Chest Single View dated 02/22/2020 FINDINGS: Portable technique limits examination quality. Moderate bilateral pulmonary opacities are present which may represent pulmonary edema or pneumonia. The heart is normal in size. Right-sided dialysis catheter has tip in the SVC.
[2020-06-17] MEDS ORDERED: CEFTRIAXONE/SWI 1gm 1 GM/10 ML SYR ONE (09:22)
[2020-06-17 09:37] LABS: Anisocytosis 1+; Blood Morphology Comment NOTED (NOT SEEN); Platelet Estimate DECR; Polychromasia SLIGHT
[2020-06-17] MEDS ORDERED: MORPHINE 4 MG/ML SYR ONE (10:17)
[2020-06-17] MEDS ORDERED: ONDANSETRON 4 MG/2 ML VIAL ONE (10:17)
[2020-06-17 10:22] LABS: Albumin 2.9 g/dL (3.4-5.0); Bilirubin Direct 0.1 mg/dL (0-0.2); Bilirubin Total 0.4 mg/dL (0.2-1.0); CKMB Creatine Kinase MB 2.3 ng/mL (0.3-3.6); Magnesium 2.1 mg/dL (1.8-2.4); Protein, Total 7.4 g/dL (6.4-8.2); Troponin (Emerg Dept Use Only) 0.17 ng/mL (0.0-0.045)
[2020-06-17 10:24] LABS: Potassium 7.9 mmol/L (3.5-5.1)
[2020-06-17] MEDS ORDERED: NITROGLYCERIN/D5W 50 MG/250 ML BTL IV ONE (10:28)
[2020-06-17] MEDS ORDERED: DIAZEPAM 10 MG/2 ML INJ SYRINGE ONE (10:48)
--- NOTE | 2020-06-17 10:49 | ER ---
Nurse's Notes [facility] Name: Cr Orellana Age: 55 yrs Sex: Male : 1965 Arrival Date: 06/17/2020 Time: 08:04 Bed 6 Private MD: Diagnosis: Acute pulmonary edema;Pneumonia due to other specified infectious organisms;Hyperkalemia;Anemia in chronic kidney disease Presentation: 06/17 08:07 Chief complaint: Patient states: Difficulty breathing and cough that began this ss morning. Pt states he is due for HD today. Denies fever. Coronavirus screen: Client denies travel out of the [place] in the last 14 days. cough unrelated to allergies, difficulty breathing, Client presents with at least one sign or symptom that may indicate coronavirus-19. Standard/surgical mask placed on the client. Provider contacted for isolation considerations. Ebola Screen: Patient denies exposure to infectious person. Patient denies travel to an Ebola-affected area in the 21 days before illness onset. Initial Sepsis Screen: Does the patient meet any 2 criteria? RR > 20 per min. HR > 90 bpm. Does the patient have a suspected source of infection? No. Patient's initial sepsis screen is negative. Risk Assessment: Do you want to hurt yourself or someone else? Patient reports no desire to harm self or others. Onset of symptoms was June 17, 2020. 08:07 Method Of Arrival: Wheelchair ss 08:07 Acuity: HUYEN 1 ss Triage Assessment: 08:07 General: Appears distressed, uncomfortable, slender, Behavior is cooperative, anxious. sv Pain: Complains of pain in chest Pain currently is 5 out of 10 on a pain scale. Pain began this morning. Neuro: Level of Consciousness is awake, alert, obeys commands, Oriented to person, place, time, situation, Moves all extremities. Full function Gait is steady, Speech is normal, but gasping. Cardiovascular: Rhythm is sinus tachycardia. Respiratory: Reports shortness of breath at rest on exertion cough that is non-productive, labored breathing Airway is patent Respiratory effort is labored, gasping, Respiratory pattern is tachypnea Onset: The symptoms/episode began/occurred this morning, the patient has severe shortness of breath. : Reports anuria. Derm: Skin is normal. Musculoskeletal: Range of motion: intact in all extremities. Historical: - Allergies: 08:08 No Known Allergies; ss - PMHx: 08:08 DIALYSIS MWF; Hypertension; seasonal allergies; ss - Immunization history:: Adult Immunizations unknown. - Social history:: Patient/guardian denies using alcohol, street drugs, The patient lives with family, Smoking status: Patient reports the use of cigarette tobacco products, denies chronic smoking, but will smoke occasionally. - Family history:: not pertinent. Screenin:20 Abuse screen: Denies threats or abuse. Denies injuries from another. Nutritional sv screening: No deficits noted. Tuberculosis screening: No symptoms or risk factors identified. Fall Risk None identified. Assessment: 08:08 Reassessment: NRB \T\ 15 L applied. ss 08:15 Reassessment: Kayce COBURN at bedside to place BIPAP. sv 08:[address]: [address] Milton that he wanted Lasix 100 mg IVP for this pt. sv Informed him that he is a dialysis pt and is anuric. Stated to cancel the Lasix for now. 08:51 Reassessment: Patient appears in no apparent distress at this time. Patient and/or sv family updated on plan of care and expected duration. Pain level reassessed. Patient is alert, oriented x 3, equal unlabored respirations, skin warm/dry/pink. Pt states that he has improvement on his breathing. Patient states symptoms have improved. 09:20 Reassessment: COVID-19 sent to outside lab. sv 09:39 Reassessment: Inside lab at the bedside to obtain 2nd BC and recollect green top. sv 11:00 Reassessment: Patient appears in no apparent distress at this time. Patient and/or sv family updated on plan of care and expected duration. Pain level reassessed. Pt sleeping at this time with eyes closed. Respiratory status has greatly improved. 11:15 Reassessment: Dr Muniz at the bedside. sv 12:00 Reassessment: Patient appears in no apparent distress at this time. Pt resting with sv eyes closed, no respiratory distress noted. 12:30 Reassessment: Patient appears in no apparent distress at this time. Pt resting with sv eyes closed, no signs of respiratory distress noted. 13:22 Reassessment: Patient appears in no apparent distress at this time. Pt resting with sv eyes closed, no signs of respiratory distress noted. Vital Signs: 08:07 Pulse 126; Resp 32; Pulse Ox 55% on R/A; ss 08:12 Temp 99.1(TE); Weight 63.5 kg (R); ss 08:13 Pulse 115; Resp 58; Pulse Ox 96% on Non-rebreather mask; ss 08:33 BP 148 / 115; Pulse 104; Resp 50; Pulse Ox 100% on 45% BiPAP; ss 08:50 BP 159 / 107; Pulse 99; Resp 42; Pulse Ox 100% on 45% BiPAP; sv 09:39 BP 167 / 101; Pulse 92 MON; Resp 36; Pulse Ox 100% on 45% BiPAP; sv 10:15 BP 158 / 101; Pulse 93; Resp 33; Pulse Ox 99% on 45% BiPAP; sv 10:30 BP 146 / 111; Pulse 99; Resp 39; Pulse Ox 99% on 45% BiPAP; sv 10:30 BP 146 / 111; Pulse 99; Resp 39; Pulse Ox 99% on 45% Mask: BiPAP; sv 10:35 BP 155 / 105; Pulse 101; Resp 38; Pulse Ox 100% on 45% Mask: BiPAP; sv 11:00 BP 133 / 101; Pulse 97 MON; Resp 25; Pulse Ox 99% on 45% BiPAP; sv 11:00 BP 133 / 101; Pulse 98; Resp 36; Pulse Ox 100% on 45% Mask: BiPAP; sv 11:15 BP 129 / 98; Pulse 95; Resp 22; Pulse Ox 100% on 45% BiPAP; sv 11:30 BP 124 / 90; Pulse 93; Resp 24; Pulse Ox 100% on 45% BiPAP; sv 12:00 BP 117 / 82; Pulse 89 MON; Resp 23; Pulse Ox 100% on 45% BiPAP; sv 12:30 BP 118 / 80; Pulse 85 MON; Resp 22; Pulse Ox 100% on 45% BiPAP; sv 13:00 BP 118 / 82; Pulse 88; Resp 25; Pulse Ox 100% on 45% BiPAP; sv 13:30 BP 120 / 77; Pulse 87; Resp 24; Pulse Ox 100% on 45% BiPAP; sv 09:39 Sinus Rhythm sv 11:00 Sinus Rhythm sv 12:00 Sinus Rhythm sv 12:30 Sinus Rhythm sv ED Course: 08:04 Patient arrived in ED. bd 08:05 Scott Milton MD is Attending Physician. ma2 08:08 Triage completed. ss 08:08 Arm band placed on right wrist. ss 08:20 Patient has correct armband on for positive identification. Bed in low position. Call sv light in reach. Side rails up X 1. shelter monitor on. Pulse ox on. NIBP on. Door closed. Head of bed elevated. 08:20 First set of blood cultures drawn by me. Inserted saline lock: 22 gauge in right sv forearm, using aseptic technique. ,using aseptic technique. diffusics Blood collected. 08:27 EKG done, by ED staff, reviewed by Scott Milton MD. dh3 08:42 Valeria Beckwith, JUAN DANIEL is Primary Nurse. sv 08:42 BIPAP Sent. sv 08:51 XRAY CXR (1 view) In Process Unspecified. EDMS 08:53 Awaiting lab results, Awaiting radiology results. sv 09:28 Awaiting lab results, Awaiting radiology results. Awaiting disposition, Awaiting sv re-evaluation by ER provider. 09:40 Slides for Pathologist Review Sent. sv 09:53 Second set of blood cultures drawn by lab staff. sv 10:25 Inserted saline lock: 22 gauge in left wrist, using aseptic technique. Flushed left sv hand with 2 ml normal saline. 10:48 Jim Muniz MD is Hospitalizing Provider. ma2 13:22 No provider procedures requiring assistance completed. Patient admitted, IV remains in sv place. intact. Administered Medications: 08:30 Drug: Aspirin Chewable Tablet 324 mg Route: PO; sv 08:53 Follow up: Response: No adverse reaction sv 08:42 CANCELLED (Physician Discretion): Lasix 100 mg IVP once sv 10:07 Drug: Rocephin 1 grams Route: IV; Rate: calculated rate; Site: right forearm; sv 10:09 Follow up: Response: No adverse reaction; IV Status: Completed infusion; IV Intake: 10mlsv 10:09 Drug: AZITHromycin 500 mg Route: IVPB; Infused Over: 1 hrs; Site: right forearm; sv 11:16 Follow up: Response: No adverse reaction; IV Status: Completed infusion; IV Intake: sv 250ml 10:25 Drug: Nitroglycerin 5 mcg/min Route: IV; Rate: calculated rate; Site: left hand; sv 10:30 Follow up: BP 146 / 111; Pulse 99 bpm; Resp 39 bpm; Pulse Ox 99% 45% Mask: BiPAP; Rate sv change 10 calculated rate 10:35 Follow up: BP 155 / 105; Pulse 101 bpm; Resp 38 bpm; Pulse Ox 100% 45% Mask: BiPAP; sv Rate change 15 calculated rate 11:00 Follow up: BP 133 / 101; Pulse 98 bpm; Resp 36 bpm; Pulse Ox 100% 45% Mask: BiPAP; sv Response: No adverse reaction; Rate change 20 calculated rate 13:53 Follow up: Response: No adverse reaction; IV Status: Infusion continued upon admission sv 10:35 Drug: Valium 5 mg Route: IVP; Site: left hand; sv 13:18 Follow up: Response: No adverse reaction sv 11:16 Drug: Calcium Gluconate 1 grams Route: IVPB; Infused Over: 60 mins; Site: right wrist; sv 12:20 Follow up: Response: No adverse reaction; IV Status: Completed infusion; IV Intake: sv 100ml 11:17 Drug: Insulin Regular Human 6 units {Co-Signature: ph (Larissa Henriquez RN).} Route: IVP; sv Site: right wrist; 12:00 Follow up: Response: No adverse reaction sv 11:17 Drug: Albuterol 2.5 mg Route: Inhalation; sv 11:18 Drug: D50W 50 ml Route: IVP; Site: right wrist; sv 12:00 Follow up: Response: No adverse reaction sv 13:18 Drug: Kayexalate 60 grams Route: PO; sv 13:19 Follow up: Response: No adverse reaction sv Intake: 10:09 IV: 10ml; Total: 10ml. sv 11:16 IV: 250ml; Total: 260ml. sv 12:20 IV: 100ml; Total: 360ml. sv Outcome: 10:48 Decision to Hospitalize by Provider. ma2 13:35 Admitted to ICU accompanied by nurse, via stretcher, room ER11, with oxygen, on sv monitor, with chart, Report called to Nancy FRANCES 13:35 Condition: stable 13:35 Condition: improved 13:35 Instructed on the need for admit. 13:52 Patient left the ED. sv Signatures: Dispatcher [employer] EDMS Chelsea Ward Stephanie, RN RN Kavya Xavier RN RN Radha Caceres Scott Quinonez MD MD ma2 Patricia Henriquez RN ph Corrections: (The following items were deleted from the chart) 08:55 08:13 Pulse 115bpm; Resp 32bpm; Pulse Ox 96% Non-rebreather mask; ss ss 08:55 08:33 BP 148 / 115; Pulse 104bpm; Resp 34bpm; Pulse Ox 100% 02 45% BiPAP; sv ss 12:56 09:39 BP 167 / 101; Pulse 92bpm; Resp 36bpm; Pulse Ox 100% 02 45% BiPAP; sv sv 12:56 11:00 BP 133 / 101; Pulse 97bpm; Resp 25bpm; Pulse Ox 99% 02 45% BiPAP; sv sv 13:22 12:30 Reassessment: Patient appears in no apparent distress at this time. Pt resting sv with eyes closed, no signs of respiratory distress noted. sv
--- NOTE | 2020-06-17 10:49 | EDPHYS ---
Physician Documentation [facility] Name: Cr Orellana Age: 55 yrs Sex: Male : 1965 Arrival Date: 06/17/2020 Time: 08:04 Bed 6 Private MD: ED Physician Scott Milton HPI: 06/17 10:41 This 55 yrs old Male presents to ER via Wheelchair with complaints of ma2 Respiratory Distress. 10:41 The patient has shortness of breath at rest. Onset: The symptoms/episode began/occurred ma2 gradually, 1 day(s) ago. Associated signs and symptoms: Pertinent positives: productive cough, Pertinent negatives: dizziness, fever, loss of consciousness. Severity of symptoms: At their worst the symptoms were severe in the emergency department the symptoms are unchanged. The patient has experienced similar episodes in the past. hx of ESRD. Historical: - Allergies: 08:08 No Known Allergies; ss - PMHx: 08:08 DIALYSIS MWF; Hypertension; seasonal allergies; ss - Immunization history:: Adult Immunizations unknown. - Social history:: Patient/guardian denies using alcohol, street drugs, The patient lives with family, Smoking status: Patient reports the use of cigarette tobacco products, denies chronic smoking, but will smoke occasionally. - Family history:: not pertinent. ROS: 10:41 Constitutional: Negative for fever, chills, and weight loss. ma2 10:41 All other systems are negative. Exam: 10:41 Constitutional: This is a well developed, well nourished patient who is awake, alert, ma2 and in no acute distress. Chest/axilla: Normal chest wall appearance and motion. Nontender with no deformity. No lesions are appreciated. Cardiovascular: Regular rate and rhythm with a normal S1 and S2. No gallops, murmurs, or rubs. Normal PMI, no JVD. No pulse deficits. Abdomen/GI: Soft, non-tender, with normal bowel sounds. No distension or tympany. No guarding or rebound. No evidence of tenderness throughout. 10:41 Constitutional: This is a well developed, well nourished patient who is awake, alert, and in no acute distress. 10:41 Constitutional: This is a well developed, well nourished patient who is awake, alert, and in no acute distress. 10:41 MS/ Extremity: Pulses equal, no cyanosis. Neurovascular intact. Full, normal range of motion. Neuro: Awake and alert, GCS 15, oriented to person, place, time, and situation. Cranial nerves II-XII grossly intact. Motor strength 5/5 in all extremities. Sensory grossly intact. Cerebellar exam normal. Normal gait. 10:41 Constitutional: The patient appears in obvious distress, severely distressed. 10:41 Respiratory: severe repiratory distress is noted, Respirations: labored breathing, accessory muscle usage, nasal flaring, Breath sounds: rales, that are moderate, are scattered, are heard diffusely. Vital Signs: 08:07 Pulse 126; Resp 32; Pulse Ox 55% on R/A; ss 08:12 Temp 99.1(TE); Weight 63.5 kg (R); ss 08:13 Pulse 115; Resp 58; Pulse Ox 96% on Non-rebreather mask; ss 08:33 BP 148 / 115; Pulse 104; Resp 50; Pulse Ox 100% on 45% BiPAP; ss 08:50 BP 159 / 107; Pulse 99; Resp 42; Pulse Ox 100% on 45% BiPAP; sv 09:39 BP 167 / 101; Pulse 92 MON; Resp 36; Pulse Ox 100% on 45% BiPAP; sv 10:15 BP 158 / 101; Pulse 93; Resp 33; Pulse Ox 99% on 45% BiPAP; sv 10:30 BP 146 / 111; Pulse 99; Resp 39; Pulse Ox 99% on 45% BiPAP; sv 10:30 BP 146 / 111; Pulse 99; Resp 39; Pulse Ox 99% on 45% Mask: BiPAP; sv 10:35 BP 155 / 105; Pulse 101; Resp 38; Pulse Ox 100% on 45% Mask: BiPAP; sv 11:00 BP 133 / 101; Pulse 97 MON; Resp 25; Pulse Ox 99% on 45% BiPAP; sv 11:00 BP 133 / 101; Pulse 98; Resp 36; Pulse Ox 100% on 45% Mask: BiPAP; sv 11:15 BP 129 / 98; Pulse 95; Resp 22; Pulse Ox 100% on 45% BiPAP; sv 11:30 BP 124 / 90; Pulse 93; Resp 24; Pulse Ox 100% on 45% BiPAP; sv 12:00 BP 117 / 82; Pulse 89 MON; Resp 23; Pulse Ox 100% on 45% BiPAP; sv 12:30 BP 118 / 80; Pulse 85 MON; Resp 22; Pulse Ox 100% on 45% BiPAP; sv 13:00 BP 118 / 82; Pulse 88; Resp 25; Pulse Ox 100% on 45% BiPAP; sv 13:30 BP 120 / 77; Pulse 87; Resp 24; Pulse Ox 100% on 45% BiPAP; sv 09:39 Sinus Rhythm sv 11:00 Sinus Rhythm sv 12:00 Sinus Rhythm sv 12:30 Sinus Rhythm sv MDM: 08:06 Patient medically screened. co2 10:41 Differential diagnosis: Anemia pneumonia, reactive airway disease. Data reviewed: vital ma2 signs, nurses notes. Counseling: I had a detailed discussion with the patient and/or guardian regarding: the historical points, exam findings, and any diagnostic results supporting the discharge/admit diagnosis, the presence of at least one elevated blood pressure reading (>120/80) during this emergency department visit, the need for outpatient follow up. Response to treatment: the patient's symptoms have markedly improved after treatment. ED course: patient has pulmonary edema and likely pneumonia, his d dimer is elevated, will not pursue ct pe at this time as his othyer alternate diagnosis is likely. his respiratory condition improved after nitro. his ekg is normal. case discussd with dr alvarez he will arainge for inpatient hd. accepted by dr. zafar . 06/17 08:15 Order name: Blood Culture Adult (2) [facility] 06/17 08:15 Order name: BMP [facility] 06/17 08:15 Order name: CBC with Diff; Complete Time: 10: [facility] 06/17 08:15 Order name: Ckmb [facility] 06/17 08:15 Order name: CPK [facility] 06/17 08:15 Order name: D-Dimer; Complete Time: 10: [facility] 06/17 08:15 Order name: Hepatic Function [facility] 06/17 08:15 Order name: Lipase [facility] 06/17 08:15 Order name: Magnesium [facility] 06/17 08:15 Order name: NT PRO-BNP [facility] 06/17 08:15 Order name: PT-INR; Complete Time: 10: [facility] 06/17 08:15 Order name: Ptt, Activated; Complete Time: 10: [facility] 06/17 08:15 Order name: Troponin (emerg Dept Use Only) [facility] 06/17 08:49 Order name: ABG Arterial Blood Gas; Complete Time: 10:07 [facility] 06/17 08:15 Order name: BIPAP [facility] 06/17 08:15 Order name: XRAY CXR (1 view); Complete Time: 10:07 [facility] 06/17 08:54 Order name: Manual Differential; Complete Time: 10:07 [facility] 06/17 09:33 Order name: Slides for Pathologist Review [facility] 06/17 11:00 Order name: SARS-COV-2 RT PCR [facility] 06/17 11:26 Order name: Urine Culture [facility] 06/17 11:26 Order name: Lactate [facility] 06/17 11:26 Order name: Procalcitonin [facility] 06/17 08:15 Order name: EKG; Complete Time: 08:16 [facility] 06/17 08:15 Order name: Cardiac monitoring; Complete Time: 08:27 [facility] 06/17 08:15 Order name: EKG - Nurse/Tech; Complete Time: 08:27 [facility] 06/17 08:15 Order name: IV Saline Lock; Complete Time: 08:42 [facility] 06/17 08:15 Order name: Labs collected and sent; Complete Time: 08:42 [facility] 06/17 08:15 Order name: O2 Per Protocol; Complete Time: 08:42 [facility] 06/17 08:15 Order name: O2 Sat Monitoring; Complete Time: 08:42 [facility] 06/17 09:27 Order name: Labs - recollect needed; Complete Time: 10:42 06/17 11:29 Order name: CONS Physician Consult [facility] Administered Medications: 08:30 Drug: Aspirin Chewable Tablet 324 mg Route: PO; sv 08:53 Follow up: Response: No adverse reaction sv 08:42 CANCELLED (Physician Discretion): Lasix 100 mg IVP once sv 10:07 Drug: Rocephin 1 grams Route: IV; Rate: calculated rate; Site: right forearm; sv 10:09 Follow up: Response: No adverse reaction; IV Status: Completed infusion; IV Intake: 10mlsv 10:09 Drug: AZITHromycin 500 mg Route: IVPB; Infused Over: 1 hrs; Site: right forearm; sv 11:16 Follow up: Response: No adverse reaction; IV Status: Completed infusion; IV Intake: sv 250ml 10:25 Drug: Nitroglycerin 5 mcg/min Route: IV; Rate: calculated rate; Site: left hand; sv 10:30 Follow up: BP 146 / 111; Pulse 99 bpm; Resp 39 bpm; Pulse Ox 99% 45% Mask: BiPAP; Rate sv change 10 calculated rate 10:35 Follow up: BP 155 / 105; Pulse 101 bpm; Resp 38 bpm; Pulse Ox 100% 45% Mask: BiPAP; sv Rate change 15 calculated rate 11:00 Follow up: BP 133 / 101; Pulse 98 bpm; Resp 36 bpm; Pulse Ox 100% 45% Mask: BiPAP; sv Response: No adverse reaction; Rate change 20 calculated rate 13:53 Follow up: Response: No adverse reaction; IV Status: Infusion continued upon admission sv 10:35 Drug: Valium 5 mg Route: IVP; Site: left hand; sv 13:18 Follow up: Response: No adverse reaction sv 11:16 Drug: Calcium Gluconate 1 grams Route: IVPB; Infused Over: 60 mins; Site: right wrist; sv 12:20 Follow up: Response: No adverse reaction; IV Status: Completed infusion; IV Intake: sv 100ml 11:17 Drug: Insulin Regular Human 6 units {Co-Signature: ph (Larissa Henriquez RN).} Route: IVP; sv Site: right wrist; 12:00 Follow up: Response: No adverse reaction sv 11:17 Drug: Albuterol 2.5 mg Route: Inhalation; sv 11:18 Drug: D50W 50 ml Route: IVP; Site: right wrist; sv 12:00 Follow up: Response: No adverse reaction sv 13:18 Drug: Kayexalate 60 grams Route: PO; sv 13:19 Follow up: Response: No adverse reaction sv Disposition: 10:48 Critical Care:. ma2 Disposition: 06/17/20 10:48 Hospitalization ordered by Jim Muniz for Inpatient Admission. Preliminary diagnosis are Acute pulmonary edema, Pneumonia due to other specified infectious organisms, Hyperkalemia, Anemia in chronic kidney disease. - Bed requested for Intensive Care Unit. - Status is Inpatient Admission. sv - Condition is Guarded. - Problem is new. - Symptoms are unchanged. Critical care time excluding procedures: 10:48 Critical care time: Bedside Care: 20 minutes, Consultation: 10 minutes, Family ma2 Intervention: 5 minutes. Total time: 35 minutes Signatures: Dispatcher [employer] EDFL Valeria Beckwith RN RN Kavya Xavier RN RN Scott iMlton MD MD co2 Larissa Henriquez RN ph Corrections: (The following items were deleted from the chart) 08:42 08:15 Lasix 100 mg IVP once ordered. co2 09:55 09:01 CORONAVIRUS+MR.LAB.BRZ ordered. EDMS EDMS 13:52 10:48 Hospitalization Ordered by Jim Muniz MD for Inpatient Admission. Preliminary sv diagnosis is Acute pulmonary edema; Pneumonia due to other specified infectious organisms; Hyperkalemia; Anemia in chronic kidney disease. Bed requested for Intensive Care Unit. Status is Inpatient Admission. Condition is Guarded. Problem is new. Symptoms are unchanged. ma2
[2020-06-17] MEDS ORDERED: ALBUTEROL 2.5 MG/3 ML NEB SOL ONE (11:00)
[2020-06-17] MEDS ORDERED: CALCIUM GLUC 10% INJ 4.65 MEQ in NA CHLORIDE 0.9% 100 ML IV ONE (11:00)
[2020-06-17] MEDS ORDERED: INSULIN -REGULAR HUMAN 50 UNIT/0.5 ML ML ONE (11:01)
[2020-06-17] MEDS ORDERED: D50W 25 GM/50 ML SYRINGE/VIAL IV ONE (11:01)
[2020-06-17] MEDS ORDERED: SOD POLYSTYREN SUL 15 GM/60 ML UCUP ONE (11:01)
--- NOTE | 2020-06-17 12:19 | P.HP ---
Certification for Inpatient Patient admitted to: Inpatient With expected LOS: >2 Midnights Practitioner: I am a practitioner with admitting privileges, knowledge of patient current condition, hospital course, and medical plan of care. Services: Services provided to patient in accordance with Admission requirements found in Title 42 Section 412.3 of the Code of Federal Regulations Patient History Date of Service: 06/17/20 Reason for admission: Acute hypoxemic respiratory failure secondary to pulmonary edema History of Present Illness: 55yo male, PMH: ESRD on HD (M-W-F), GERD, prior GI bleed, who presented to ED with severe respiratory distress. Upon arrival, patient was noted to be tachypneic (30s), tachycardic (120s), and had an oxygen saturation of 55% on room air. Patient was placed on BiPAP. Patient reports progressively worsening shortness of breath/BASURTO over the past several days with acute worsening today. He endorses a cough with some white phlegm over the past 2 days, the report some chills yesterday. He states he was walking in the rain yesterday and attributes that to the reason for his chills yesterday. He states he has been compliant with his medications in with his dialysis. He says it feels like when his lungs fill with fluid and he needs dialysis. He denies any lower extremity edema In the ED, workup was notable for high leukocytosis (27.1), anemia (8.7), elevated D-dimer (3297), hyperkalemia (7.9), BUN: 78, creatinine: 11.3, BNP: 74411, troponin: 0.17, pro calcitonin 1.33, COVID negative. CXR: Moderate bilateral pulmonary opacities which may represent pulmonary edema or pneumonia. He was given ceftriaxone and, azithromycin, and started on a nitroglycerin drip. He was also given insulin, calcium, D50 the, Kayexalate in the ED for his hyperkalemia. Dr. Gacria was contacted in the ED for urgent hemodialysis. Allergies No Known Allergies Allergy (Unverified 02/22/20 16:32) Home Medications: Amlodipine [Norvasc*] 10 mg PO DAILY #30 tab 03/03/20 Calcitrol [Rocaltrol*] 0.5 mcg PO DAILY #60 cap 03/03/20 Calcium Carbonate [Tums Regular*] 1,000 mg PO AC #90 tab 03/03/20 Carvedilol [Coreg] 25 mg PO BID #60 tablet 03/03/20 Cholecalciferol (Vitamin D3) [Vitamin D 5,000 IU Cap*] 10,000 unit PO DAILY #60 cap 03/03/20 Codeine/APAP [Tylenol W/Codeine #3 tab] 1 tab PO Q8HP PRN #15 tab 03/03/20 Docusate [Colace Cap*] 100 mg PO BID #60 cap 03/03/20 Magnesium Oxide [Mag 0X*] 400 mg PO BEDTIME #30 tab 03/03/20 Pantoprazole [Protonix Tab] 40 mg PO BID #60 tab 03/03/20 Tamsulosin [Flomax*] 0.4 mg PO BID #60 cap 03/03/20 - Past Medical/Surgical History Diabetic: No -: Gastroesophageal reflux disease -: Prior GI bleed -: ESRD on hemodialysis -: Anemia of chronic disease -: pelvis sx 11 years ago - Family History Family History: Reviewed- Non-Contributory - Social History Smoking Status: Current some day smoker Alcohol use: No CD- Drugs: No Caffeine use: No Review of Systems 10-point ROS is otherwise unremarkable Physical Examination - Physical Exam General: Alert, Oriented x3, Mild distress (Tachypneic, short of breath) HEENT: Sclerae nonicteric Respiratory: Diminished, Crackles/rales, Other (On BiPAP) Cardiovascular: No edema, Irregular heart rate/rhythm (Sinus tachycardia) Gastrointestinal: Soft and benign, Non-distended, No tenderness Musculoskeletal: No tenderness Integumentary: No rashes Neurological: Normal speech, Normal affect - Studies Laboratory Data (last 24 hrs) 06/17/20 09:53: Sodium 133 L, Potassium 7.9 H*, BUN 78 H, Creatinine 11.30 H*, Glucose 109 H, Magnesium 2.1 D, Total Bilirubin 0.4, AST 46 H, ALT 18, Alkaline Phosphatase 88, Lipase 265 06/17/20 08:15: PT 12.9 H, INR 1.10, APTT 29.7 06/17/20 08:15: WBC 27.1 H*, Hgb 8.7 L, Hct 25.6 L, Plt Count 141 L Assessment and Plan - Advance Directives Does patient have a Living Will: No Does patient have a Durable POA for Healthcare: No Physician Review Additional Text: Acute hypoxemic respiratory failure secondary to pulmonary edema Volume overload, ESRD on hemodialysis Hyperkalemia Anemia of chronic disease Leukocytosis, possible pneumonia GERD, h/o GI bleed (02/2020) admit to ICU for Severe acute hypoxemic respiratory failure, continue BiPAP, continue nitro drip, patient seems to be a little bit more comfortable pulmonology consulted. nephrology consulted as well Chest x-ray with possible pneumonia, will treat with Rocephin and azithromycin as patient does have a leukocytosis and elevated pro calcitonin Hemoglobin she is slightly improved compared to the last few months Patient with recent GI bleed, borderline low platelets and anemia, will avoid chemical DVT prophylaxis for now, continue SCDs Elevated D-dimer possibly in setting of infection, unable to get CTA given ESRD, consider V/Q scan if no significant improvement Troponin elevated in the ED (0.17), likely demand ischemia setting of his acute hypoxemic respiratory failure, will trend Obtain home medications and continue as appropriate VTE prophylaxis: SCDs given recent GI bleed a few months ago Code: Full Dispo: anticipate hospitalization >2 days Time Spent Managing Pts Care (In Minutes): 55
[2020-06-17] MEDS ORDERED: NITROGLYCERIN/D5W 50 MG/250 ML BTL IV PRN (14:16)
[2020-06-17] MEDS ORDERED: ACETAMINOPHEN 500 MG TAB PO PRN (14:16)
[2020-06-17 17:04] VITALS: BMI 20.9
[2020-06-17] MEDS: HYDROCODONE/APAP 7.5/325 MG TAB PO PRN (19:45)
[2020-06-17] MEDS ORDERED: HYDROCODONE/APAP 7.5/325 MG TAB ONE (19:56)
[2020-06-17] MEDS ORDERED: INFLUENZA VACCINE (for 3y+) 0.5 ML DOSE IMVAC ONE (20:00)
--- NOTE | 2020-06-17 23:34 | CON ---
Date of Consultation: 06/17/2020 Reason For Consultation: ESRD, on dialysis. History Of Present Illness: Mr. Orellana is a 55-year-old male with past medical history significant f or history of ESRD, GERD, hypertension, who presented to [facility] after he starte d having severe shortness of breath, which started all of a sudden. He reports being compliant with dialysis. He was found to have severe hyperkalemia and pulmonary edema. He was placed on BiPAP, but he has been weaned off the BiPAP and is currently on oxygen. Nephrology is being consulted for eval uation of urgent dialysis because of his severe hyperkalemia and volume overload status. The patient denies being noncompliant with his medications or his dialysis or his salt intake. Past Medical History: Significant for history of GERD, GI bleed, ESRD, anemia, and pelvic surgery. Home Medications: Have been reviewed. Family History: Noncontributory. Social History: He is a current smoker. Denies any alcohol or drug use. Review of Systems: Positive for weakness, lethargy, shortness of breath. Also, denies any cough, fevers, or chills. Al l other review of systems are negative. Physical Examination: Vital Signs: At this time are showing temperature of 98.8, pulse rate of 98, blood pressure 142/90. General: He appears in no acute distress. HEENT: Atraumatic head. Neck: No JVD was noted. Lungs: Auscultation of the lungs reveal diminished breath sounds at bases with occasional crackles. Heart: Auscultation of the heart revealed mild tachycardia. Appears to be in sinus rhythm. Extremities: No evidence of edema. Laboratory Data: Severe hypokalemia with a potassium of 7.9, chloride of 99, BUN of 78, and creatini ne of 11.3. CBC showing WBC count of 27,000, hemoglobin of 8.7, hematocrit of 25.6, and platelet cou nt of 141. Current Medications: Have been reviewed in detail. Impression: 1.End-stage renal disease, on dialysis. 2.Severe volume overload with pulmonary edema. 3.Severe hyperkalemia. 4.Anemia secondary to end-stage renal disease. Plan: Overall, the patient is hemodynamically stable. We will plan for dialysis today with a 2K, 2. 5 calcium bath for 3.5 hours and ultrafiltration as tolerated. The patient is also being treated for community-acquired pneumonia with azithromycin. He has received medical management for his hyperkal emia including calcium gluconate and insulin. We will continue to monitor potassium and repeat it af ter dialysis tomorrow. The patient will be followed closely and potassium will be repeated after campbell lysis tomorrow. VV/MODL Voice ID: [id number] Report ID: [id number]
[2020-06-18] MEDS: HYDROCODONE/APAP 7.5/325 MG TAB PO PRN ×4 (02:56→23:16)
[2020-06-18] MEDS ORDERED: HYDROCODONE/APAP 7.5/325 MG TAB ONE ×4 (03:08→23:29)
[2020-06-18 07:14] LABS: Absolute Lymphocytes (CBC) 2.9 K/uL (0.7-4.9); Hematocrit 19.3 % (39.6-49.0); Lymphocytes % 17.1 % (15.3-44.8); MPV 7.6 fL (7.6-11.3); RBC Red Blood Cell Count 2.01 M/uL (4.33-5.43)
[2020-06-18] MEDS ORDERED: PNEUMOCOCCAL VACCINE 0.5 ML IMVAC ONE ×2 (08:00→20:24)
[2020-06-18 08:08] LABS: Anisocytosis 1+; Blood Morphology Comment NOTED (NOT SEEN); Platelet Estimate ADEQ; Polychromasia SLIGHT
[2020-06-18 08:18] LABS: Albumin 2.5 g/dL (3.4-5.0); Bilirubin Total 0.4 mg/dL (0.2-1.0); Magnesium 1.8 mg/dL (1.8-2.4); Phosphorus 4.6 mg/dL (2.5-4.9); Potassium 5.3 mmol/L (3.5-5.1); Protein, Total 6.6 g/dL (6.4-8.2)
[2020-06-18] MEDS: CEFTRIAXONE/SWI 1gm 1 GM/10 ML SYR IV SCH (09:11)
[2020-06-18] MEDS ORDERED: CEFTRIAXONE/SWI 1gm 1 GM/10 ML SYR ONE (09:18)
[2020-06-18] MEDS: AZITHROMYCIN IV 500 MG in NA CHLORIDE 0.9% 250 ML IVPB SCH (09:20)
[2020-06-18] MEDS ORDERED: HYDROCODONE/APAP 10/325 TAB ONE (09:35)
[2020-06-18] MEDS ORDERED: NA CHLORIDE 0.9% 100 ML IV ONE ×2 (09:36→13:06)
[2020-06-18] MEDS ORDERED: NA CHLORIDE 0.9% 250 ML IV SCH (10:00)
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
[2020-06-18] MEDS: CALCIUM CARBONATE CHEW 500MG TAB PO SCH ×2 (14:24→20:03)
--- NOTE | 2020-06-18 15:04 | RAD REPORT ---
EXAM DESCRIPTION: RAD - Hip Left 2 View - 06/18/2020 2:57 pm CLINICAL HISTORY: L posterior hip pain, s/p fall COMPARISON: Abdomen Pelvis Wo Contrast dated 05/23/2020 FINDINGS: AP and frogleg views of the left hip were obtained. No fracture or dislocation of the proximal left femur. Femoral head maintains smooth rounded contour. No AVN or focal femoral head abnormality. No joint effusion or periarticular abnormality seen. Cardi ac monitor wires partially obscure the lateral margin of the femoral neck on the frog-leg view. Partially imaged left hemipelvis shows no acute finding. There are remodeling changes to each superio r ramus at the pubic symphysis. No pathologic bone process. No soft tissue abnormality. IMPRESSION: Left hip examination shows no acute finding.
--- NOTE | 2020-06-18 20:20 | P.PN ---
Date of Service: 06/18/20 Vital Signs Temp Pulse Resp BP Pulse Ox 98.9 F 100 H 23 H 161/83 H 100 06/18/20 15:00 06/18/20 18:00 06/18/20 15:00 06/18/20 18:00 06/18/20 18:00 Medications Acetaminophen (Tylenol -Extra Strength) 500 mg PO Q4HP PRN PRN Reason: Pain scale 2-4 (Mild) Stop: 07/17/20 14:17 Hydrocodone Bitart/Acetaminophen ([place] 7.5/325 Mg) 1 tab PO Q6H PRN PRN Reason: Pain scale 5-7 (Moderate) Stop: 07/17/20 19:30 Last Admin: 06/18/20 17:22 Dose: 1 tab Documented by: Amlodipine Besylate (Norvasc) 10 mg PO DAILY ELY Stop: 07/19/20 09:01 Calcitriol (Rocaltrol) 0.5 mcg PO DAILY ELY Stop: 07/19/20 09:01 Calcium Carbonate/Glycine (Tums Regular) 1,000 mg PO AC ELY Stop: 07/18/20 11:31 Last Admin: 06/18/20 20:03 Dose: 1,000 mg Documented by: Carvedilol (Coreg) 25 mg PO BID ELY Stop: 07/18/20 21:01 Cholecalciferol (Vitamin D 5,000 Iu Cap) 10,000 unit PO DAILY ELY Stop: 07/19/20 09:01 Docusate Sodium (Colace Cap) 100 mg PO BID ELY Stop: 07/18/20 21:01 Heparin Sodium (Porcine) (Heparin 1,000 Units/Ml) 6,000 unit IV EVERY HD PRN PRN Reason: dialysis Azithromycin 500 mg/ Sodium (Chloride) 250 mls @ 250 mls/hr IVPB DAILY ELY; Protocol Stop: 07/18/20 09:01 Last Admin: 06/18/20 09:20 Dose: 250 mls Documented by: Ceftriaxone Sodium/Sodium Chloride (Rocephin 1 Gm/10 Ml Swi Ivp) 1 gm in 10 mls @ 600 mls/hr IV DAILY ELY; Protocol Stop: 07/18/20 09:01 Last Admin: 06/18/20 09:11 Dose: 10 mls Documented by: Nitroglycerin/Dextrose (Ntg 0.2 Mg/Ml In D5w 250 Ml) 50 mg in 250 mls @ 0 mls/hr IV PRN PRN; Protocol PRN Reason: Hemodynamic Parameters Stop: 07/17/20 14:17 Sodium Chloride (Sodium Chloride) 250 mls @ 0 mls/hr IV .Q0M [facility] Stop: 07/18/20 10:01 Magnesium Oxide (Mag 0x Tab) 400 mg PO BEDTIME ELY Stop: 07/18/20 21:01 Pantoprazole Sodium (Protonix Tab) 40 mg PO BID [facility]; Protocol Stop: 07/18/20 21:01 Sodium Chloride (Normal Saline Flush) 10 ml IV BID ELY Stop: 07/17/20 21:01 Last Admin: 06/18/20 09:00 Dose: 10 ml Documented by: Tamsulosin HCl (Flomax) 0.4 mg PO BID [facility] Stop: 07/18/20 21:01 Microbiology Results 06/17/20 09:53 Blood - Blood Aerobic Blood Culture - Preliminary No growth in 24 hours. 06/17/20 09:53 Blood - Blood Anaerobic Blood Culture - Preliminary No growth in 24 hours. 06/17/20 08:15 Blood - Blood Aerobic Blood Culture - Preliminary No growth in 24 hours. 06/17/20 08:15 Blood - Blood Anaerobic Blood Culture - Final Assessment/ Plan: Nephrology CPS stable without CP or SOB. No acute events overnight. Feeling better today. Vitals, medications, blood work and imaging reviewed in the chart. NAD. MMM. Neck supple. CTA. RRR. Soft Abd. No C/C. LE Edema trace. No rash. AAO. Normal Speech. A/ ESRD on HD Hyperkalemia HTN with CKD/ CHF Diastolic CHF, A/C Moderate malnutrition Anemia in CKD MIAH/ Secondary HyperPTH. Hypocalcemia. P/ Continue current POC and Medications. Acute HD ordered. Transfuse PRBC. Give Retacrit. Renal diet. AM labs. Daily weight. No NSAIDs.
[2020-06-18] MEDS ORDERED: PANTOPRAZOLE 40MG TABLET PO ONE (20:22)
[2020-06-18] MEDS ORDERED: TAMSULOSIN 0.4 MG SR CAP ONE (20:22)
[2020-06-18] MEDS ORDERED: MAGNESIUM OXIDE 400 MG TAB ONE (20:22)
[2020-06-18 20:39] LABS: Hematocrit 24.2 % (39.6-49.0)
[2020-06-18] MEDS: carvediloL 25 MG TAB PO SCH (21:19)
[2020-06-18] MEDS: DOCUSATE NA 100 MG CAP PO SCH (21:19)
[2020-06-18] MEDS: PANTOPRAZOLE 40MG TABLET PO SCH (21:20)
[2020-06-18] MEDS: MAGNESIUM OXIDE 400 MG TAB PO SCH (21:20)
[2020-06-18] MEDS: TAMSULOSIN 0.4 MG SR CAP PO SCH (21:20)
[2020-06-19] MEDS: HYDROCODONE/APAP 7.5/325 MG TAB PO PRN ×3 (05:21→20:20)
[2020-06-19 06:18] LABS: Absolute Lymphocytes (CBC) 2.3 K/uL (0.7-4.9); Basophils % 0.8 % (0-1.3); Hematocrit 22.8 % (39.6-49.0); Lymphocytes % 17.6 % (15.3-44.8); MPV 7.5 fL (7.6-11.3); RBC Red Blood Cell Count 2.45 M/uL (4.33-5.43)
[2020-06-19 06:28] LABS: Magnesium 2.2 mg/dL (1.8-2.4)
[2020-06-19 07:10] LABS: Blood Morphology Comment NOT SEEN (NOT SEEN); Platelet Estimate DECR; White Blood Cell Scan OK (OK)
--- NOTE | 2020-06-19 08:36 | P.CNS ---
Date of Consult: 06/19/20 Reason for Consult: Respiratory distress volume overload Chief Complaint: Acute hypoxemic respiratory failure secondary to pulmonary edema Allergies No Known Allergies Allergy (Unverified 02/22/20 16:32) Home Medications: Amlodipine [Norvasc*] 10 mg PO DAILY #30 tab 03/03/20 Calcitrol [Rocaltrol*] 0.5 mcg PO DAILY #60 cap 03/03/20 Calcium Carbonate [Tums Regular*] 1,000 mg PO AC #90 tab 03/03/20 Carvedilol [Coreg] 25 mg PO BID #60 tablet 03/03/20 Cholecalciferol (Vitamin D3) [Vitamin D 5,000 IU Cap*] 10,000 unit PO DAILY #60 cap 03/03/20 Codeine/APAP [Tylenol W/Codeine #3 tab] 1 tab PO Q8HP PRN #15 tab 03/03/20 Docusate [Colace Cap*] 100 mg PO BID #60 cap 03/03/20 Magnesium Oxide [Mag 0X*] 400 mg PO BEDTIME #30 tab 03/03/20 Pantoprazole [Protonix Tab] 40 mg PO BID #60 tab 03/03/20 Tamsulosin [Flomax*] 0.4 mg PO BID #60 cap 03/03/20 - Past Medical/Surgical History Diabetic: No -: Gastroesophageal reflux disease -: Prior GI bleed -: ESRD on hemodialysis -: Anemia of chronic disease -: pelvis sx 11 years ago - Social History Smoking Status: Current some day smoker Alcohol use: No CD- Drugs: No Caffeine use: No Physical Examination Temp Pulse Resp BP Pulse Ox 98 F 81 16 147/83 H 99 06/19/20 08:00 06/19/20 08:00 06/19/20 08:00 06/19/20 08:00 06/19/20 08:00 General: Alert, In no apparent distress, Oriented x3 Neck: Supple Respiratory: Clear to auscultation bilaterally Musculoskeletal: Other (Patient unable to move his left leg) Neurological: Normal speech, Normal strength at 5/5 x4 extr - Problems (1) Respiratory distress Current Visit: Yes Status: Acute Plan: Patient is 55 years of age admitted with respiratory distress secondary to volume overload she is doing much better check room air pulse ox repeat x-ray evaluate for the left hip pain left hip x-ray does not show any acute findings he may have a stress fracture discontinue BiPAP patient does not smoke
[2020-06-19] MEDS ORDERED: EPOETIN ALFA-EPBX 10,000 UNIT/ML VIAL SQ SCH (09:00)
[2020-06-19] MEDS ORDERED: VITAMIN D 5,000 UNIT CAP PO SCH (09:00)
[2020-06-19] MEDS: CEFTRIAXONE/SWI 1gm 1 GM/10 ML SYR IV SCH (09:23)
[2020-06-19] MEDS: MULTIVITAMINS,THERAPEUT 1 TAB PO SCH (09:24)
[2020-06-19] MEDS: CALCITROL 0.25 MCG CAP PO SCH (09:26)
[2020-06-19] MEDS: CALCIUM CARBONATE CHEW 500MG TAB PO SCH ×3 (09:26→16:18)
[2020-06-19] MEDS: DOCUSATE NA 100 MG CAP PO SCH ×2 (09:27→20:20)
[2020-06-19] MEDS: TAMSULOSIN 0.4 MG SR CAP PO SCH ×2 (09:27→20:21)
[2020-06-19] MEDS: PANTOPRAZOLE 40MG TABLET PO SCH ×2 (09:27→20:20)
[2020-06-19] MEDS: carvediloL 25 MG TAB PO SCH ×2 (09:27→20:21)
[2020-06-19] MEDS: AMLODIPINE 10 MG TAB PO SCH (09:27)
[2020-06-19] MEDS: AZITHROMYCIN IV 500 MG in NA CHLORIDE 0.9% 250 ML IVPB SCH (10:20)
[2020-06-19] MEDS: VITAMIN D 5,000 UNIT CAP PO SCH (10:20)
[2020-06-19] MEDS ORDERED: EPOETIN ALFA 10,000 UNIT/ML VIAL IV SCH (10:30)
--- NOTE | 2020-06-19 10:38 | P.PN ---
Subjective Date of Service: 06/19/20 Chief Complaint: Acute hypoxemic respiratory failure secondary to pulmonary edema Subjective: Improving (breathing more comfortably, still on 4LNC mostly complaining of L hip pain, difficult to ambulate - since fall ~1-2 weeks ago) Physical Examination - Vital Signs Temperature: 98 F Blood Pressure: 147/83 Pulse: 81 Respirations: 16 Pulse Ox (%): 99 - Physical Exam General: Alert, In no apparent distress, Oriented x3 HEENT: Sclerae nonicteric Respiratory: Clear to auscultation bilaterally, Diminished (slightly at bases bilaterally) Cardiovascular: No edema, Regular rate/rhythm, Normal S1 S2 Gastrointestinal: Soft and benign, Non-distended, No tenderness Musculoskeletal: Tenderness (at L SI joint / buttocks, no spinal tenderness. Anterior upper thigh / groin sharp pain with flexion of hip beyond ~45 degrees and with external rotation) Neurological: Normal speech, Normal affect - Studies Microbiology Data (last 24 hrs): 06/17/20 08:15 Blood - Blood Anaerobic Blood Culture - Final Assessment & Plan Physician Review Additional Text: Acute hypoxemic respiratory failure secondary to pulmonary edema Volume overload, ESRD on hemodialysis Hyperkalemia Anemia of chronic disease Leukocytosis, possible pneumonia GERD, h/o GI bleed (02/2020) HTN Admitted to ICU for Severe acute hypoxemic respiratory failure, required BiPAP & nitro drip s/p dialysis x2, wean O2 pulmonology consulted. nephrology consulted as well Chest x-ray with possible pneumonia and had leukocytosis and elevated procal - continue rocephin and azithro Hgb: 6.4 on 06/18, transfused 1uPRBC with dialysis on 06/18. 7.9 today, no evidence of bleeding, no BM yet Patient with recent GI bleed, borderline low platelets and anemia, will avoid chemical DVT prophylaxis for now, continue SCDs Elevated D-dimer possibly in setting of infection, unable to get CTA given ESRD, improving Troponin elevated in the ED (0.18 -> 0.17), likely demand ischemia setting of his acute hypoxemic respiratory failure and ESRD continue home medications (Protonix BID, antihypertensives) Hip pain - x-ray negative for acute fracture, PT to work with pt today. Will obtain CT pelvis VTE prophylaxis: SCDs given recent GI bleed a few months ago Code: Full Dispo: anticipate dc home tomorrow after dialysis pending stable H/H counts and improvement of breathing Time Spent Managing Pts Care (In Minutes): 35
--- NOTE | 2020-06-19 10:46 | RAD REPORT ---
EXAM DESCRIPTION: RAD - Chest Single View - 06/19/2020 10:12 am CLINICAL HISTORY: SOB, cough, ?pneumonia COMPARISON: June 17 TECHNIQUE: AP portable chest image was obtained 06/19/2020 10:12 am . FINDINGS: Right-sided dialysis catheter remains in place. The extensive bilateral airspace opacifica tion seen June 17 has substantially resolved. There is little alveolar opacification remaining. In terstitial opacification is still present. Heart size remains normal range with no acute vascular eng orgement. No measurable pleural effusion and no pneumothorax. No acute bony abnormality seen. No acut e aortic findings suspected. IMPRESSION: Substantial but incomplete clearing of the bilateral airspace disease from both lung fie lds.
--- NOTE | 2020-06-19 10:53 | PN ---
Date of Progress Note: 06/19/2020 Subjective: Patient was seen and examined at bedside. He is doing much better. He had 1 unit of bl ood transfusion last night. He had dialysis on Monday and also yesterday. He feels much better. Although he is still on oxygen and still has some shortness of breath. He just got back from the CT scan. Objective: Vital Signs: Have been reviewed and are stable. General: He appears in no acute distress. Lungs: Clear to auscultation with diminished breath sounds at bases. Abdomen: Soft and nontender. Extremities: Showed no evidence of edema. Laboratory Data: At this time are showing sodium of 138, potassium of 4, chloride of 99, bicarb of 3 0, BUN of 28, and creatinine of 5.64. CBC showing hemoglobin of 7.9, hematocrit of 22.8, WBC count o f 13, and platelet count of 92. Current Medications: Have been reviewed in detail. He remains on azithromycin and Rocephin also. Impression: 1.End-stage renal disease, on dialysis. 2.Anemia with drop in hemoglobin and hematocrit. The patient got a unit of blood transfusion. We w ill also start him on Epogen 10,000 units with each HD. 3.Hypoxic respiratory failure secondary to pulmonary edema. 4.Possible underlying community-acquired pneumonia, remains on antibiotics. 5.Leukocytosis, improving. 6.Hip pain. The patient is being evaluated by Orthopedics. Plan: Overall, patient is doing okay. We will plan for dialysis tomorrow. Continue all other medic ations and start Epogen for dialysis. VV/MODL Voice ID: [id number] Report ID: [id number]
--- NOTE | 2020-06-19 11:13 | RAD REPORT ---
EXAM DESCRIPTION: CT - Pelvis Wo Cont - 06/19/2020 10:06 am CLINICAL HISTORY: L posterior hip/buttock pain, SI joint tender COMPARISON: Hip Left 2 View dated 06/18/2020; Abdomen Pelvis Wo Contrast dated 05/23/2020 TECHNIQUE: Axial noncontrast 2 millimeter thick images of the pelvis obtained including the hip join ts. Sagittal and coronal reformations and images were generated and reviewed. The CT scan was performed using dose optimization techniques as appropriate to a performed exam incl uding one or more of the following: Automated exposure control, adjustment of the mA and/or kV accord ing to patient size (this includes techniques or standardized protocols for targeted exams where dose is matched to indication/reason for exam) and use of iterative reconstruction technique. FINDINGS: Approximately 50% L4 and 60% L5 biconcave compression fracture deformities are present. Ho wever, these are not clearly different from May 23 examination. No new lower lumbar finding on s examination. There are degenerative changes to the disc at L5-S1 also stable from comparison. Spina l stenosis changes are significant at L4-5 particularly at this level of superior endplate L5. Canal is reduced to 5-6 mm. L5 lateral recess stenosis is present. No significant degree of stenosis at the L5-S1 disc level. No fracture of the bony pelvis identified. Sacral ala is intact on the right. A faint hairline fractu re of the left sacral ala is suspected. No widening of the SI joint or SI joint acute finding. No pat hologic bone changes are identifiable. No fracture or acute finding of either proximal femur. No AVN or focal femoral head abnormalities. No joint effusion or periarticular suspicious finding. No intramuscular hematoma or mass. No suspicious finding in the soft tissues. IMPRESSION: Hairline fracture of the left sacral ala is suspected. No gross fracture deformity seen. The left SI joint shows no acute finding and there is no fracture of the bony pelvis or proximal femo ra.
[2020-06-19] MEDS: MAGNESIUM OXIDE 400 MG TAB PO SCH (20:21)
[2020-06-20] MEDS: HYDROCODONE/APAP 7.5/325 MG TAB PO PRN ×4 (02:50→20:13)
[2020-06-20 06:32] LABS: Magnesium 2.3 mg/dL (1.8-2.4); Phosphorus 5.6 mg/dL (2.5-4.9); Potassium 4.2 mmol/L (3.5-5.1)
[2020-06-20 06:36] LABS: Absolute Lymphocytes (CBC) 2.3 K/uL (0.7-4.9); Basophils % 0.6 % (0-1.3); Hematocrit 21.7 % (39.6-49.0); Lymphocytes % 19.6 % (15.3-44.8); MPV 7.7 fL (7.6-11.3); RBC Red Blood Cell Count 2.32 M/uL (4.33-5.43)
[2020-06-20] MEDS: CEFTRIAXONE/SWI 1gm 1 GM/10 ML SYR IV SCH (08:59)
[2020-06-20] MEDS: VITAMIN D 5,000 UNIT CAP PO SCH (08:59)
[2020-06-20] MEDS: PANTOPRAZOLE 40MG TABLET PO SCH ×2 (08:59→20:13)
[2020-06-20] MEDS: CALCITROL 0.25 MCG CAP PO SCH (08:59)
[2020-06-20] MEDS: CALCIUM CARBONATE CHEW 500MG TAB PO SCH ×3 (08:59→16:19)
[2020-06-20] MEDS: MULTIVITAMINS,THERAPEUT 1 TAB PO SCH (08:59)
[2020-06-20] MEDS: DOCUSATE NA 100 MG CAP PO SCH ×2 (08:59→20:13)
[2020-06-20] MEDS: AMLODIPINE 10 MG TAB PO SCH (09:00)
[2020-06-20] MEDS: TAMSULOSIN 0.4 MG SR CAP PO SCH ×2 (09:00→20:13)
[2020-06-20] MEDS: AZITHROMYCIN IV 500 MG in NA CHLORIDE 0.9% 250 ML IVPB SCH ×2 (09:00→15:30)
[2020-06-20] MEDS: carvediloL 25 MG TAB PO SCH ×2 (09:00→20:12)
--- NOTE | 2020-06-20 09:08 | P.PN ---
Subjective Date of Service: 06/20/20 Chief Complaint: Acute hypoxemic respiratory failure secondary to pulmonary edema Subjective: Improving (still on oxygen supplementation, feeling better, for dialysis today continues with L buttock pain, worked well with PT) Physical Examination - Vital Signs Temperature: 97.8 F Blood Pressure: 159/88 Pulse: 79 Respirations: 16 Pulse Ox (%): 97 - Physical Exam General: Alert, In no apparent distress, Oriented x3 HEENT: Sclerae nonicteric Respiratory: Crackles/rales (at bases bilaterally) Cardiovascular: No edema, Regular rate/rhythm Gastrointestinal: Soft and benign, Non-distended, No tenderness Musculoskeletal: Tenderness (L buttock / sacral area) Neurological: Normal speech, Normal strength at 5/5 x4 extr (somewhat limited due to L buttock/upper thigh pain), Normal affect Assessment & Plan Physician Review Additional Text: Acute hypoxemic respiratory failure secondary to pulmonary edema Volume overload, ESRD on hemodialysis Hyperkalemia Anemia of chronic disease Leukocytosis, possible pneumonia suspected L sacral ala hairline fracture GERD, h/o GI bleed (02/2020) HTN Admitted to ICU for Severe acute hypoxemic respiratory failure, required BiPAP & nitro drip, now s/p dialysis x2, weaning O2; pulmonology consulted. nephrology consulted as well continue rocephin & azithro for ? pneumonia, CXR: ?pneumonia + leukocytosis Hgb: 6.4 on 06/18, transfused 1uPRBC with dialysis on 06/18. slightly decreased again today, to receive epogen 10,000 units with each HD Patient with recent GI bleed, borderline low platelets and anemia, will avoid chemical DVT prophylaxis for now, continue SCDs, no evidence of bleeding at this time Troponin elevated in the ED (0.18 -> 0.17), likely demand ischemia setting of his acute hypoxemic respiratory failure and ESRD continue home medications (Protonix BID, antihypertensives) L hip pain - discussed with Dr. Sorenson (ortho) yesterday, recommended CT Pelvis for further darrius suspected L sacral ala hairline fracture seen on CT pelvis 06/19, awaiting further recs from ortho VTE prophylaxis: SCDs given recent GI bleed a few months ago Code: Full Dispo: anticipate dc home today after dialysis Time Spent Managing Pts Care (In Minutes): 35
[2020-06-20 09:28] LABS: Blood Morphology Comment NOTED (NOT SEEN); Platelet Estimate DECR
[2020-06-20 09:29] LABS: Anisocytosis 1+; Polychromasia 1+
[2020-06-20 18:21] LABS: Hematocrit 23.1 % (39.6-49.0); MPV 7.7 fL (7.6-11.3); RBC Red Blood Cell Count 2.46 M/uL (4.33-5.43)
[2020-06-20] MEDS: MAGNESIUM OXIDE 400 MG TAB PO SCH (20:12)
[2020-06-21] MEDS: HYDROCODONE/APAP 7.5/325 MG TAB PO PRN ×2 (02:06→09:00)
[2020-06-21 05:19] LABS: Absolute Lymphocytes (CBC) 2.6 K/uL (0.7-4.9); Basophils % 0.1 % (0-1.3); Hematocrit 23.8 % (39.6-49.0); Lymphocytes % 20.9 % (15.3-44.8); MPV 7.5 fL (7.6-11.3); RBC Red Blood Cell Count 2.55 M/uL (4.33-5.43)
[2020-06-21 05:54] LABS: Magnesium 2.4 mg/dL (1.8-2.4); Phosphorus 4.3 mg/dL (2.5-4.9); Potassium 4.5 mmol/L (3.5-5.1)
--- NOTE | 2020-06-21 08:44 | RAD REPORT ---
EXAM DESCRIPTION: RAD - Chest Single View - 06/21/2020 8:36 am CLINICAL HISTORY: SOB COMPARISON: June 19, June 17 TECHNIQUE: AP portable chest image was obtained 06/21/2020 8:36 am . FINDINGS: Lung volumes are normal range in similar to comparison. Dialysis catheter remains in place . Continued clearing of the lung parenchyma. Minimal mid and lower left lung field and right base airsp brianne opacification present. No progressive finding. Heart and vasculature are normal. No measurable pleural effusion and no pneumothorax. No acute bony abnormality seen. No acute aortic findings suspected. IMPRESSION: Continued clearing of the bilateral lung field alveolar edema or infiltrate.
[2020-06-21] MEDS: CALCIUM CARBONATE CHEW 500MG TAB PO SCH ×2 (08:58→12:14)
[2020-06-21] MEDS: PANTOPRAZOLE 40MG TABLET PO SCH (08:59)
[2020-06-21] MEDS: carvediloL 25 MG TAB PO SCH (08:59)
[2020-06-21] MEDS: TAMSULOSIN 0.4 MG SR CAP PO SCH (08:59)
[2020-06-21] MEDS: AMLODIPINE 10 MG TAB PO SCH (08:59)
[2020-06-21] MEDS: CALCITROL 0.25 MCG CAP PO SCH (08:59)
[2020-06-21] MEDS: DOCUSATE NA 100 MG CAP PO SCH (09:00)
[2020-06-21] MEDS: MULTIVITAMINS,THERAPEUT 1 TAB PO SCH (09:00)
[2020-06-21] MEDS: VITAMIN D 5,000 UNIT CAP PO SCH (09:00)
[2020-06-21] MEDS: CEFTRIAXONE/SWI 1gm 1 GM/10 ML SYR IV SCH (09:00)
[2020-06-21] MEDS: AZITHROMYCIN IV 500 MG in NA CHLORIDE 0.9% 250 ML IVPB SCH (10:00)
[2020-06-21] MEDS ORDERED: ALBUTEROL 2.5 MG/3 ML NEB SOL NEB SCH (10:00)
--- NOTE | 2020-06-21 10:08 | P.PN ---
Subjective Date of Service: 06/21/20 Chief Complaint: Acute hypoxemic respiratory failure secondary to pulmonary edema Subjective: Improving (Received dialysis yesterday Feeling better this morning, breathing more comfortably, still on 4 L nasal cannula Continues with left hip/buttock pain) Physical Examination - Vital Signs Temperature: 97.5 F Blood Pressure: 164/95 Pulse: 80 Respirations: 14 Pulse Ox (%): 100 - Physical Exam General: Alert, In no apparent distress HEENT: Sclerae nonicteric Respiratory: Clear to auscultation bilaterally, Normal air movement Cardiovascular: No edema, Regular rate/rhythm Gastrointestinal: Soft and benign, Non-distended, No tenderness Musculoskeletal: Tenderness (Left buttock/SI joint area) Integumentary: No rashes Neurological: Normal speech, Normal affect Assessment & Plan Physician Review Additional Text: Acute hypoxemic respiratory failure secondary to pulmonary edema Volume overload, ESRD on hemodialysis Hyperkalemia Anemia of chronic disease Leukocytosis, possible pneumonia suspected L sacral ala hairline fracture GERD, h/o GI bleed (02/2020) HTN Admitted to ICU for Severe acute hypoxemic respiratory failure, required BiPAP & nitro drip now s/p dialysis x2, weaning O2; pulmonology consulted. nephrology consulted as well continue rocephin & azithro for ? pneumonia, CXR: ?pneumonia + leukocytosis Hgb: 6.4 on 06/18, transfused 1uPRBC with dialysis on 06/18. Stabilized, received epogen 10,000 units with HD yesterday Patient with recent GI bleed, borderline low platelets and anemia, will avoid chemical DVT prophylaxis for now, continue SCDs, no evidence of bleeding at this time Troponin elevated in the ED (0.18 -> 0.17), likely demand ischemia setting of his acute hypoxemic respiratory failure and ESRD continue home medications (Protonix BID, antihypertensives) L hip pain - discussed with Dr. Sorenson (ortho), suspected L sacral ala hairline fracture seen on CT pelvis 06/19, no acute intervention needed, weight- bearing as tolerated, pain control Will need prescription for wheeled walker on discharge, ambulating with physical therapy VTE prophylaxis: SCDs given recent GI bleed a few months ago Code: Full Dispo: dc home once respiratory status improves and patient is on room air; possibly today Time Spent Managing Pts Care (In Minutes): 35
[2020-06-21 11:29] VITALS: O2SAT 96
[2020-06-21 12:05] VITALS: BP 143/78; TEMP 98.4
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
== END 2020-06-21 13:58 | disposition home or self-care (01) | DRG 189 ==
LOC: ER 08:01 → ERHOLD 11:28 → 2ND 06-19 00:16
PROVIDERS: ADMIT Hospitalist; ATTEND Hospitalist
PROC: 5A09357 Assistance with Respiratory Ventilation, Less than 24 Consecutive Hours, Continuous Positive Airway Pressure (ICD-10-PCS; principal; 2020-06-17)
PROC: 30233N1 Transfusion of Nonautologous Red Blood Cells into Peripheral Vein, Percutaneous Approach (ICD-10-PCS; 2020-06-18)
PROC: 5A1D70Z Performance of Urinary Filtration, Intermittent, Less than 6 Hours Per Day (ICD-10-PCS; 2020-06-18)
DX: J96.01 Acute respiratory failure with hypoxia (principal); N18.6 End stage renal disease; J18.9 Pneumonia, unspecified organism; I50.33 Acute on chronic diastolic (congestive) heart failure; S32.10XA Unspecified fracture of sacrum, initial encounter for closed fracture; J81.1 Chronic pulmonary edema; I13.2 Hypertensive heart and chronic kidney disease with heart failure and with stage 5 chronic kidney disease, or end stage renal disease; E44.0 Moderate protein-calorie malnutrition; I24.8 Other forms of acute ischemic heart disease; E87.70 Fluid overload, unspecified; D63.1 Anemia in chronic kidney disease; F17.210 Nicotine dependence, cigarettes, uncomplicated; K21.9 Gastro-esophageal reflux disease without esophagitis; E87.5 Hyperkalemia; D63.8 Anemia in other chronic diseases classified elsewhere; D72.829 Elevated white blood cell count, unspecified; E21.1 Secondary hyperparathyroidism, not elsewhere classified; N25.0 Renal osteodystrophy; M25.552 Pain in left hip; Z99.2 Dependence on renal dialysis; R77.8 Other specified abnormalities of plasma proteins; R00.0 Tachycardia, unspecified; Z79.899 Other long term (current) drug therapy; Z68.21 Body mass index [BMI] 21.0-21.9, adult; Z79.891 Long term (current) use of opiate analgesic; Z20.828 Contact with and (suspected) exposure to other viral communicable diseases; Z23 Encounter for immunization
CPT/HCPCS: 36415; 71045; 72192; 80048; 80053; 80076; 82550; 82553; 82805; 82947; 83605; 83690; 83735; 83880; 84100; 84145; 84484; 85014; 85018; 85025; 85027; 85379; 85610; 85730; 86850; 86900; 86901; 87040; 87086; 87088; 90471; 90732; 90935; 93005; 94660; 97116; 97161; 97530; 99291; 99292; J0456; J0610; J0696; J1644; J2405; J3360; J7050; P9016; Q5105; Q5106; U0003

== ENCOUNTER 2020-07-01 09:48 | Inpatient (IN) | payer OTHER ==
--- OUTSIDE RECORDS SUMMARY | 2020-07-01 10:29 | XMS REPORT | Clinical Summary ---
:1965 Author Organization [facility] Address [address] [place] [address] Care Team Providers Name Role Phone Unavailable [...] (end st age renal disease) on dialysis ([facility]); 06/03/2020 Severe sepsis ([facility]); Jeff Nicholas acido sis; Christopher Hematoma of thi gh, right, initial encounter; MD Donna PINA (acute kidney injury) ([facility]); Vee Hernandez Thrombocytop enia ([facility]); MD Corrine Anemia, unspecified type; Delia Matthews Gastroesophalice geal reflux disease, unspecified whether esophagitis present; MD Akilah Epigastric pain; Mustapha, Acute blood los s anemia Emanuel Valdivia MD 05/23/2020 Telephone Critical Care Santy Cardona, transfer Medicine Michael Ames MD 02/22/2020 Lab Requisition Lab after 07/01/2019 Immunizations Name Administration Dates Next Due Influenza Four-QIV PF 3YR+ 05/25/2020 Social History Tobacco Use Types Packs/Day Years Used Date Former Smoker Sex Assigned at Date Recorded Not on file Last Filed Vital Signs Vital Sign Reading [...] procedure are in the results section. after 07/01/2019 Results HEMODIALYSIS INPATIENT (06/03/2020 12:01 PM CDT) [...] Pathologist Sig nature % Neutros 62 % [facility] % Lymphs 27 % [facility] % Monos 5 % [facility] % Myelo 3 (H) 0 - 0 % [facility] % Bands 3 0 - 10 % [facility] # Neutros 7.19 (H) 1.78 - 5.38 K/ul [facility] # Lymphs 3.13 1.32 - 3.57 K/ul [facility] # Monos 0.58 0.30 - 0.82 K/uL [facility] # Myelo 0.35 (H) 0.00 - 0.00 K/uL [facility] # Bands 0.35 0.00 - 0.80 K/uL [facility] Total Counted 100 [facility] nRBC (manual) 1 (H) 0 - 0 /100 WBC [facility] WBC Morphology Normal [facility] Large Platelet Present [facility] Anisocytosis 1+ few [facility] Microcytes 1+ few [facility] Artifact Present [facility] Platelet Conc Decreased [facility] Specimen Blood Narrative Performed At Prism Inspector ID - Chris Zack [facility] User comments: Slide comments: Performing Organization Address City/State/Zipcode Phone Number [address] [address] CENTER PT/aPTT (06/03/2020 4:07 AM CDT)Only the most recent of12 resultswithin the time period is included. Pathologist Sig nature Protime 14.1 11.9 - 14.2 seconds [facility] INR 1.12 <=5.90 [facility] PTT 38.0 (H) 22.5 - 36.0 seconds [facility] Specimen Blood Narrative Performed At Effective 01/16/2019: PT Reference Range [facility] Change New: 11.9-14.2 Previous: 11.7-14.7 RECOMMENDED COUMADIN/WARFARIN INR THERAPY RANGES STANDARD DOSE: 2.0-3.0 Includes: PROPHYLAXIS for venous thrombosis, systemic embolization; TREATMENT for venous thrombosis and/or pulmonary embolus. HIGH RISK: Target INR is 2.5-3.5 for patients wiht mechanical heart valves. Performing Organization Address City/State/Zipcode Phone Number [address] [address] CENTER Calcium, Ionized (06/03/2020 4:07 AM CDT)Only the most recent of4 resultswithin the time period is included. Pathologist Sig nature Calcium, Ion 1.17 1.12 - 1.27 mmol/L [facility] pH, Blood 7.44 [facility] Specimen Blood Performing Organization Address City/State/Zipcode Phone Number [facility] [address] [place] [address] CENTER CBC with platelet count + automated diff (06/03/2020 4:07 AM CDT)Only the most recent of13 resultswithin the time period is included. Pathologist Sig nature WBC 11.6 (H) 3.5 - 10.5 K/L [facility] RBC 2.46 (L) 4.63 - 6.08 M/L [facility] Hemoglobin 7.9 (L) 13.7 - 17.5 GM/DL [facility] Hematocrit 23.2 (L) 40.1 - 51.0 % [facility] MCV 94.3 (H) 79.0 - 92.2 fL [facility] MCH 32.1 25.7 - 32.2 pg [facility] MCHC 34.1 32.3 - 36.5 GM/DL [facility] RDW 15.9 (H) 11.6 - 14.4 % [facility] Platelets 79 (L) 150 - 450 K/CU MM [facility] MPV 10.8 9.4 - 12.4 fL [facility] nRBC 1 (H) 0 - 0 /100 WBC [facility] Specimen Blood Performing Organization Address City/State/Zipcode Phone Number [facility] [address] [place] [address] CENTER Phosphorus (06/03/2020 4:07 AM CDT)Only the most recent of7 resultswithin the time period is included. Pathologist Sig nature Phosphorus 4.3Comment: 2.3 - 4.7 mg/dL [facility] Specimen slightly [facility] Specimen Blood Narrative Performed At Prism Inspector ID - BONILLA [facility] Performing Organization Address [facility]/Zipcode Phone Number [facility] [address] [place] [address] CENTER Magnesium (06/03/2020 4:07 AM CDT)Only the most recent of12 resultswithin the time period is included. Pathologist Sig nature Magnesium 2.0Comment: Specimen 1.6 - 2.6 mg/dL [facility] Specimen Blood Narrative Performed At Prism Inspector ID - [facility] Performing Organization Address [facility] Phone Number [address] [address] [place] Hepatic function panel (06/03/2020 4:07 AM CDT)Only the most recent of12 resultswithin the time period is included. Protein, Total 6.5Comment: 6.0 - 8.3 [facility] Specimen slightly gm/dL [facility] Albumin 3.3 (L)Comment: 3.5 - 5.0 [facility] Specimen slightly g/dL [facility] Total Bilirubin 0.3Comment: 0.2 - 1.2 [facility] Specimen slightly mg/dL [facility] Bilirubin, Direct 0.1Comment: 0.1 - 0.5 [facility] Specimen slightly mg/dL [facility] Alkaline 71 40 - 150 U/L [facility] Phosphatase [facility] AST 42 (H)Comment: 5 - 34 U/L [facility] Specimen slightly [facility] ALT 14Comment: 6 - 55 U/L [facility] Specimen slightly [facility] Specimen Blood Narrative Performed At Prism Inspector ID - BONILLA [facility] Performing Organization Address City/State/Zipcode Phone Number [facility] [address] [place] [address] CENTER Comprehensive metabolic panel (06/03/2020 4:07 AM CDT)Only the most recent of4 resultswithin the time period is included. Protein, Total 6.5Comment: 6.0 - 8.3 [facility] Specimen slightly gm/dL [facility] Albumin 3.3 (L)Comment: 3.5 - 5.0 [facility] Specimen slightly g/dL [facility] Alkaline 71 40 - 150 U/L [facility] Phosphatase [facility] Total Bilirubin 0.3Comment: 0.2 - 1.2 [facility] Specimen slightly mg/dL [facility] Sodium 134 (L) 136 - 145 [facility] meq/L [facility] Potassium 5.1Comment: 3.5 - 5.1 [facility] Specimen slightly meq/L [facility] Chloride 96 (L) 98 - 107 [facility] meq/L [facility] CO2 24 22 - 29 meq/L [facility] BUN 60 (H) 7 - 21 mg/dL [facility] Creatinine 9.02 (H)Comment: 0.57 - 1.25 [facility] Specimen slightly mg/dL [facility] Glucose 89 70 - 105 [facility] mg/dL [facility] Calcium 9.2 8.4 - 10.2 [facility] mg/dL [facility] AST 42 (H)Comment: 5 - 34 U/L [facility] Specimen [facility] ALT 14Comment: 6 - 55 U/L [facility] EGFR 6Comment: mL/min/1.73 [facility] ESTIMATED GFR IS sq [facility] NOT ACCURATE MEDICAL CENTER CREATININE CLEARANCE IN PREDICTING GLOMERULAR FILTRATION RATE. ESTIMATED GFR IS NOT APPLICABLE FOR DIALYSIS PATIENTS. Specimen Blood Narrative Performed At Prism Inspector ID - BONILLA [facility] Performing Organization Address City/[facility]/Zipcode Phone Number [facility] [address] [place] [address] CENTER Prepare Leuko-Red RBC (06/02/2020 11:54 PM CDT)Only the most recent of3 results within the time period is included. Pathologist Sig nature CROSSMATCH COMPATIBLE SAFETRACE TX Unit ABO O Pos SAFETRACE TX UNIT NUMBER [id number] SAFETRACE TX Status TX_TIMEINCHART SAFETRACE TX Blood Bank Product RED BLOOD CELLS SAFETRACE TX PRODUCT CODE [id number] SAFETRACE [place] Specimen Other Performing Organization Address [facility] Phone Number [facility] [place] Basic Metabolic Panel (06/02/2020 3:56 AM CDT)Only the most recent of12 results within the time period is included. Sodium 135 (L) 136 - 145 meq/L [facility] Potassium 4.7 3.5 - 5.1 meq/L [facility] Chloride 98 98 - 107 meq/L [facility] CO2 25 22 - 29 meq/L [facility] BUN 36 (H) 7 - 21 mg/dL [facility] Creatinine 6.44 (H) 0.57 - 1.25 [facility] mg/dL [facility] Glucose 96 70 - 105 mg/dL [facility] Calcium 8.6 8.4 - 10.2 [facility] mg/dL [facility] EGFR 9Comment: ESTIMATED mL/min/1.73 sq [facility] GFR IS NOT [facility] ACCURATE [place] CREATININE CLEARANCE IN PREDICTING GLOMERULAR FILTRATION RATE. ESTIMATED GFR IS NOT APPLICABLE FOR DIALYSIS PATIENTS. Specimen Blood Narrative Performed At Prism Inspector ID - [facility] Performing Organization Address City/[facility] Phone Number [address] [phone] CENTER Transfuse Leuko-Red RBC (06/01/2020 10:33 PM CDT)Only the most recent of3 resultswithin the time period is included.POC-Glucose meter (06/01/2020 10:11 PM CDT) POC-Glucose Meter 99 70 - 110 mg/dL [facility] Comment: [facility] MEDICAL : TESTED AT [address], [address] CENTER : Prism Inspector/Clinical Services Assistant ID = [id number] for Jerson Morales Specimen Blood Performing Organization Address [facility]/Zipcode Phone Number [address] [address] CENTER Hepatitis B surface antibody (06/01/2020 7:23 PM CDT) Pathologist Sig nature Hep B S Ab 27.2 (H) <8.0 mIU/mL [facility] Specimen Blood Narrative Performed At Prism Inspector ID - DB [facility] Performing Organization Address City/[facility]/Zipcode Phone Number [address] [address] CENTER Type and screen, automated (05/31/2020 9:50 AM CDT)Only the most recent of2 resultswithin the time period is included. Pathologist Sig nature ABO/RH AUTOMATED O POSITIVE [facility] Ab Scrn NEGATIVE [facility] Specimen Blood Performing Organization Address [facility]/Zipcode Phone Number [address] [address] Hemoglobin and hematocrit (05/31/2020 9:50 AM CDT)Only the most recent of6 resultswithin the time period is included. Pathologist Sig nature Hemoglobin 7.2 (L) 13.7 - 17.5 GM/DL [facility] Hematocrit 21.2 (L) 40.1 - 51.0 % [facility] Specimen Blood Narrative Performed At Prism Inspector ID - [id number] [facility] Performing Organization Address [facility] Phone Number [facility] [address] [place] [address] [place] Hepatitis panel, acute (05/28/2020 2:19 PM CDT) Pathologist Sig nature Hep A IgM Nonreactive Nonreactive [facility] Hep B C IgM Nonreactive Nonreactive [facility] Hepatitis C Ab Reactive (A) Nonreactive [facility] HBsAg Screen Nonreactive Nonreactive [facility] Specimen Blood Narrative Performed At Prism Inspector ID - DB [facility] Performing Organization Address [facility] Phone Number [address] [address] CENTER D-dimer (05/28/2020 3:59 AM CDT)Only the most recent of3 resultswithin the time period is included. Pathologist Sig nature D-Dimer, Quant 3.35 (H) <0.50 MG/L FEU [facility] Specimen Blood Narrative Performed At Intended Use: The D-Dimer Assay can be used [facility] to aid in the diagnosis of Deep Vein Thrombosis (DVT) and Pulmonary Embolism Disease (PED). In patients with low pre-test probability, various studies concerning STA Liatest D-dimer test have reported that with a cutoff value of 0.50 MG/L FEU, the Negative Predictive Value (NPV) regarding the exclusion of thrombosis is within 95-100% range. Performing Organization Address City/[facility] Phone Number [facility] [address] [place] [address] [place] REPORT OF PROCEDURE - ENDOSCOPY URL (05/27/2020 8:30 AM CDT) Narrative Performed At This result has an attachment that is no t available. Tissue Exam (05/27/2020 8:20 AM CDT) Case Report Surgical Pathology Report Case: [id number] [facility] Authorizing Provider: Myrna Tijerina MD Collected: 05/27/2020 08:20 AM [facility] Ordering Location: [address] Received: 05/27/2020 02:50 PM [facility]ICAL [facility]ENTER SERVICE Pathologist: Rosa Cisneros MD Specimens: A) - Biopsy, G astric, random biopsies R/O H. pylori B) - Biop sy, Gastroesophageal Junction, random biopsies R/O Islas's DIAGNOSIS A. 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 MD Rosa on - OXYNTIC MUCOSA WITH NO SIGNIFICANT PATHOLOGIC ALTERA TIONS 05/28/2020 at 1:01 - NEGATIVE FOR HELICOBACTER PYLORI PM - NEGATIVE FOR DYSPLASIA OR CARCINOMA B. GASTROESOPHAGEAL JUNCTION, ENDOSCOPIC MUCOSAL BIOPS IES - SQUAMOCOLUMNAR MUCOSA WITH ACTIVE CARDITIS - NEGATIVE FOR SPECIALIZED ISLAS METAPLASIA Signing Pathologist Direct Phone Line: COMMENT . [facility] CPT Code(s) 86236 x2, [id number] [facility] CLINICAL HISTORY Anemia [facility] SPECIMEN SOURCE A. Random gastric biopsy, rule out H. Pylori [facility] B. Random GE junction biopsy, rule out Islas's [facility] GROSS DESCRIPTION A. Received in formalin labe led with the patient's name, medical record number and "gastric biopsy" are two pieces of rees-white mucosa- covered tissue that measure 0.5 x 0.3 x 0.2 cm in aggregate. The sp [facility] ecimen is submitted in toto following filtration in ca ssette A1. [facility] B. Received in formalin labe led with the patient's name, medical record number and "GE junction biopsy" are two pieces of rees-white mucosa-covered tissue that measure 0.4 x 0.2 x 0.2 cm in aggregate. Th e specimen is submitted in toto following filtration i n cassette B1. DLR/ew MICROSCOPIC A. Section shows gastric ant ral and oxyntic mucosa. The antral mucosa shows mild chronic inactive gastritis with incomplete intestinal metaplasia. No active inflammation is present. The oxyntic mucosa s [facility] DESCRIPTION hows no significant inflamma tion. Warthin stain for Helicobacter pylori is negative. There is no dysplasia or carcinoma. [facility] [place] B. Section shows gastroesoph ageal junctional mucosa and squamous (eosphageal) mucosa. The squamous (esophageal) component of GE junctional mucosa shows intercellular edema and elongated vascular papilla e and the columnar mucosa sh ows chronic inflammation with rare neutrophils. No goblet cell metaplasia is seen. SPECIAL STUDIES The interpretation of this c ase included the use of immunohistochemistry or special stains. [facility] Control Slides Examined: In -house known positive controls were evaluated along with the test tissue. These control slides run alongside of the patients sample show appropriate staining. [facility] antony and negative controls when available are evaluated Immunohistochemistry technic al testing was performed at [facility], Pathology Laboratory where it was developed and its performance characteristics were determined. It has not be en cleared or approved by doctors hospital U.S. Food and Drug Administration. The FDA has determined that such clearance or approval is not necessary. The test is used for clinical purposes. It should not be regarde d as investigational or for research. This laboratory is certified under the Clinical Laboratory Improvement Amendments of 1988 (CLIA-88) as qualified to perform high complexity clinical laboratory testing. Gross assessment [facility] was performed at [facility] Pathology, [address] [place] [id number], Technical [facility] component was [facility] performed at Pathology, [address] [place] [id number], Professional [facility] component was [facility] performed at Pathology, [address] [place] [address], Specimen Tissue - Gastric biopsy sample (specimen ) Tissue specimen (specimen) - Biopsy, Gas troesophageal Junction Performing Organization Address City/State/Zipcode Phone Number [facility] [address] [place] [address] CENTER Manual Differential (05/27/2020 3:40 AM CDT) % Neutros (manual) 63 % [facility] % Lymphs (manual) 17 % [facility] % Monos (manual) 4 % [facility] % Eos (manual) 3 % [facility] % Baso (manual) 1 % [facility] % Metamyelo (manual) 3 (H) 0 - 0 % [facility] % Bands (manual) 3 0 - 10 % [facility] % Atypical Lymphs 6 (H) 0 - 0 % [facility] # Neutros (manual) 7.12 1.80 - 8.00 [facility] # Lymphs (manual) 1.92 1.48 - 4.50 [facility] # Monos (manual) 0.45 0.00 - 1.30 [facility] # Eos (manual) 0.34 0.00 - 0.50 [facility] # Baso (manual) 0.11 0.00 - 0.20 [facility] # Metamyelo (manual) 0.34 (H) 0.00 - 0.00 [facility] # Bands (manual) 0.3 0.0 - 0.8 KL [facility] # Atypical Lymphs 0.68 (H) 0.00 - 0.00 [facility] Total Counted 100 [facility] Bands plus Segmented 7.46 [facility] nRBC (manual) 1 (H) 0 - 0 /100 WBC [facility] WBC Morphology Normal [facility] Platelet Morphology Normal [facility] Anisocytosis 1+ few [facility] Ovalocytes 1+ few [facility] Specimen Blood Performing Organization Address City/[facility] Phone Number [address] [address] CENTER TRANSFUSION SERVICE REPORT - SCAN (05/26/2020 6:21 PM CDT)Only the most recent of2 resultswithin the time period is included. Narrative Performed At This result has an attachment that is no t available. Hepatitis C PCR, Quantitative (05/26/2020 12:26 PM CDT) HCV PCR, HCV RNA not HCV RNA not [facility] Quantitative detected detected [facility] Specimen Blood Narrative Performed At This test uses a Real-Time Polymerase Chain [facility] Reaction (RT-PCR) methodology and was performed using [employer] Ampliprep/[employer] TaqMan HCV test kit version 2.0 ([employer]). Reportable range for this assay is 15 - 100,000,000 IU per mL (1.18 - 8.00 Log IU/mL). Performing Organization Address [facility] Phone Number [address] [address] CENTER TSH/Free T4 If Indicated (05/25/2020 7:14 PM CDT) Pathologist Sig nature TSH 3.581 0.350 - 4.940 uIU/mL [facility] Specimen Blood Narrative Performed At Prism Inspector ID - JR F [facility] Performing Organization Address City/[facility]/Zipcode Phone Number [address] [address] CENTER Prothrombin time/INR (05/25/2020 11:42 AM CDT) Pathologist Sig nature Protime 14.6 (H) 11.9 - 14.2 seconds [facility] INR 1.17 <=5.90 [facility] Specimen Blood Narrative Performed At Effective 01/16/2019: PT Reference Range [facility] Change New: 11.9-14.2 Previous: 11.7-14.7 RECOMMENDED COUMADIN/WARFARIN INR THERAPY RANGES STANDARD DOSE: 2.0-3.0 Includes: PROPHYLAXIS for venous thrombosis, systemic embolization; TREATMENT for venous thrombosis and/or pulmonary embolus. HIGH RISK: Target INR is 2.5-3.5 for patients wiht mechanical heart valves. Performing Organization Address City/[facility] Phone Number [address] [address] CENTER Lactate dehydrogenase (LDH) (05/25/2020 11:42 AM CDT) Pathologist Sig nature LDH 341 (H) 125 - 220 U/L [facility] Specimen Blood Narrative Performed At Prism Inspector ID - JR Crump [facility] Performing Organization Address City/[facility] Phone Number [address] [address] CENTER Peripheral Blood Smear - Path Review (05/25/2020 3:42 AM CDT) Pathologist Review Macrocytic anemia, [facility] anisopoikilocytosis, MEDICAL CENTER with rare schistocytes (0.8 per HPF). WBCs with mild left shift, including occasional myeloid precursors, no blasts seen. Few hypersegmented neutrophils. Thrombocytopenia with unremarkable morphology. Pathologist: Maddie Leon [facility] Bebeto Dsouza [facility] Specimen Blood Performing Organization Address City/[facility] Phone Number [address] [address] CENTER Troponin I (05/25/2020 3:42 AM CDT)Only the most recent of5 resultswithin the time period is included. Pathologist Sig nature Troponin I 0.46 (HH) 0.00 - 0.03 ng/mL [facility] Specimen Blood Narrative Performed At Troponin I (TnI) levels must be interpreted [facility] in the context of the presenting symptoms and the clinical findings. Elevated TnI levels indicate myocardial damage, but are not specific for ischemic heart disease. Elevated TnI levels are seen in patients with other cardiac conditions (including myocarditis and congestive heart failure), and slight TnI elevations occur in patients with other conditions, including sepsis, renal failure, acidosis, acute neurological disease, and persistent tachyarrhythmia. Prism Inspector ID - DB Performing Organization Address [facility] Phone Number [address] [address] CENTER Lactic acid, venous (05/25/2020 3:42 AM CDT)Only the most recent of3 results within the time period is included. Pathologist Sig nature Lactate, Venous 0.42 (L) 0.50 - 2.20 [facility] HEALTH mmol/L [facility] Specimen Blood Narrative Performed At Prism Inspector ID - DB [facility] Performing Organization Address [facility] Phone Number [address] [address] CENTER Reticulocyte count (05/25/2020 3:42 AM CDT) Pathologist Sig nature % Retic 1.5 0.5 - 1.8 % [facility] Specimen Blood Narrative Performed At Prism Inspector ID - [id number] [facility] Performing Organization Address [facility] Phone Number [address] [address] CENTER Iron, TIBC, % sat. (without ferritin) (05/25/2020 3:41 AM CDT) Pathologist Sig nature Iron 118.0 40.0 - 160.0 [facility] ug/dL [facility] TIBC 170 (L) 250 - 450 ug/dL [facility] Iron % Saturation 69 (H) 20 - 55 % [facility] Specimen Blood Narrative Performed At Prism Inspector ID - MARQUIS [facility] Performing Organization Address City/[facility]/Zipcode Phone Number [facility] [address], [place] [phone] CENTER Haptoglobin (05/25/2020 3:41 AM CDT) Pathologist Sig nature Haptoglobin 172 14 - 258 mg/dL [facility] Specimen Blood Narrative Performed At Prism Inspector ID - JR Crump [facility] Performing Organization Address City/[facility]/Zipcode Phone Number [facility] [address] [place] [address] CENTER Ferritin (05/25/2020 3:41 AM CDT) Pathologist Sig nature Ferritin 10,294.32 (H) 5.00 - 275.00 [facility] ng/mL [facility] Specimen Blood Narrative Performed At Prism Inspector ID - [facility] [facility] Performing Organization Address City/[facility] Phone Number [facility] [address] [place] [phone] [place] XR chest 1 view portable / bedside (05/25/2020 2:00 AM CDT)Only the most recent of2 resultswithin the time period is included. Specimen Narrative Performed At FINAL REPORT GE RIS RAD, CHEST, 1 VIEW, NON DEPT INDICATION: [...] 4:42:11 Performing Organization Address City/State/Zipcode Phone Number [employer] US testicular (scrotum) (05/25/2020 1:24 AM CDT) Specimen Narrative Performed At FINAL REPORT [employer] TECHNIQUE: Grayscale, color Doppler, and spectral Doppler [...] Pathologist Sig nature HBsAg Screen Nonreactive Nonreactive [facility] Specimen Blood Narrative Performed At Specimen is considered negative for HBsAg. [facility] Performing Organization Address City/State/Zipcode Phone Number [facility] [address] [place] [address] CENTER Drug Test, General Toxicology, Urine (05/24/2020 6:40 PM CDT) Acetone(Quest) None Detected [facility] Methanol([facility]) None Detected [facility] Drug Test,Genrl see note [facility] Tox,U Comment: INCORPORATED The following compounds were detected: Cotinine (Nicotine Metabolite) Morphine Acetaminophen Hydromorphone Hydrocodone Benzoylecgonine (Cocaine Metabolite) Cyclobenzaprine For a list of compounds and limits of detection go to: http://education.FiscalNote/faq/OIZ025 ISOPROPANOL None Detected [facility] ETHANOL None Detected [facility] Comment: INCORPORATED Volatile Limit of Detectio n: 5 mg/dL This test was developed and its analytical performance characteristics have been determined by [employer] [place], [place]. It has not been cleared or approved by the U.S. Food and Drug Administration. This assay has been validated pursuant to the CLIA regulations and is used for clinical purposes. Specimen Urine Narrative Performed At Performing Lab [facility] [address] [facility], [address] [facility] [place] [address] Mckenna Lopez MD, PhD Performing Organization Address City/[facility]/Zipcode Phone Number [facility] [place] [address] INCORPORATED [address] [facility] B-type Natriuretic Factor (BNP) (05/24/2020 5:32 PM CDT)Only the most recent of 2 resultswithin the time period is included. Pathologist Sig nature BNP 202 (H) 0 - 100 pg/mL [facility] Specimen Blood Narrative Performed At Prism Inspector ID - NATASHA [facility] Performing Organization Address City/State/Zipcode Phone Number [facility] [address] [place] [address] CENTER 2D Echo W/Doppler(CW/PW/Color) (05/24/2020 9:17 AM CDT) Pathologist Sig nature Ejection Fraction [facility] Specimen Narrative Performed At Transthoracic Echocardiography Report (T TE) [facility] Demographics Patient Name THIERRY PADILLA Date of Study 05/24/2020 KYLIE Gender Male Visit Number [id number] Race Unknown Room Number 7217 Number Date of 1965 Referring Physician Age 55 year(s) Trigonometry Tutor Nivees Lopes Pulmonology Physician Owen Valdivia Interpreting Renato barr Physician Procedure [...] Study 05/24/2020 KYLIE Gender Male Visit Number [id number] Race Unknown Room N [facility] 7217 Number Date of 1965 Referr ing Physician Age 55 year(s) 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 Moses Pulmonology Physician Owen Valdivia Intermckenna reting Greg Roche MD Procedure Type of Study TTE procedure:2DECHO Jose Lazo(CW/PW/COLOR) (Routine) Indications:Endocarditis. Clinical History HGB 8.1 HCT [...] CDT) Pathologist Sig nature ABO Grouping O [facility] DICAL [place] Rh Factor POS [facility] Specimen Blood Performing Organization Address City/[facility]/Zipcode Phone Number [address] [address] Vitamin B12 and Folate (05/24/2020 3:48 AM CDT) Pathologist Sig [facility] Vitamin B12 237 213 - 816 pg/mL [facility] Folate 4.00 (L) >=7.00 ng/mL [facility] Specimen Blood Narrative Performed At Prism Inspector ID - MARQUIS [facility] Performing Organization Address City/[facility] Phone Number [address] [address] [place] HIV-1 Antigen with HIV-1/2 Antibody (05/24/2020 3:48 AM CDT) Pathologist Sig [facility] HIV-1 Antigen with Nonreactive Nonreactive [facility] HIV 1&2 Antibody [facility] Specimen Blood Performing Organization Address City/[facility] Phone Number [address] [address] [place] Hemoglobin A1c (05/24/2020 3:48 AM CDT) Pathologist Sig [facility] Hemoglobin A1C 5.8 4.3 - 6.1 % [facility] Specimen Blood Performing Organization Address City/[facility] Phone Number [address] [address] CENTER Blood Culture - Routine (Right Venipuncture) (05/24/2020 3:34 AM CDT)Only the most recent of2 resultswithin the time period is included. Pathologist Sig nature Result No growth in 5 days [facility] Specimen Blood - Entire right upper arm (body str ucture) Performing Organization Address City/State/Zipcode Phone Number [facility] [address] [place] [address] CENTER SARS-CoV2/RT-PCR (Symptomatic ONLY) (05/24/2020 2:33 AM CDT)Only the most recent of2 resultswithin the time period is included. SARS-COV2/RT-PCR Negative Not Detected, [facility] Negative, See [facility] external report CENTER for linked test [facility]COV-2 [facility] Specimen Other - Nasopharyngeal wall structure (b alicia structure) Narrative Performed At Negative results do not preclude SARS-CoV-2 [facility] infection and should not be used as [...] the Act. Fact Sheet for Healthcare Providers: https://www.Crittercism.G[employer]ed [employer] Software/Documents/Xpert%20Xpre ss%20SARS%20CoV-2/Fact%20Sheets/302-0406%20SAR S-COV-2%20HEALTHCARE%20PROVIDERS%20FACT%20SHEE T.pdf Fact Sheet for Healthcare Patients: https://www.Accion/Documents/Xpert%20Xpre ss%20SARS%20CoV-2/Fact%20Sheets/302-3801%20SAR S-COV-2%20PATIENT%20FACT%20SHEET.pdf Performing Laboratory: [facility] [address] [place] [address]. [place] [address] Performing Organization Address City/State/Zipcode Phone Number [facility] [address] [place] [address] [place] Blood gas, venous (05/24/2020 1:28 AM CDT) Pathologist Sig nature pH, Raquel 7.27 (L) 7.32 - 7.42 [facility] pCO2, Raquel 26 (L) 41 - 51 mmHg [facility] pO2, Raquel 63 (H) 25 - 40 mmHg [facility] O2 Sat, Raquel 89.7 (H) 40.0 - 70.0 % [facility] HCO3, Raquel 12 (L) 21 - 29 mmol/L [facility] Base Excess, Raquel -14.0 (L) -2.0 - 3.0 [facility] mmol/L [facility] Patient Temperature 37.0 C [facility] FIO2 100.0 % [facility] Specimen Blood Performing Organization Address City/[facility] Phone Number [facility] [address] [place] [address] [place] EKG-SCANNED (05/24/2020) Narrative Performed At This result has an attachment that is no t available. Ordered by an unspecified provider. after 07/01/2019 Insurance Payer Benefit Plan / Subscriber ID Effective Dates Phone Addre ss Type Group MEDICARE MEDICARE A B [id number] 2020-Tristin Medicare t CDC REVIEW CDC REVIEW [id number] 2020-[place] [address] [place] [address] MEDICAID MEDICAID OF [id number] 2020-Tristin patterson Advance Directives For more information, please contact: [phone] Code Status Date Activated Date Inactivated Comments Full Code 05/24/2020 1:02 AM 06/03/2020 4:31 PM This code status was determined by: Patient
--- OUTSIDE RECORDS SUMMARY | 2020-07-01 10:30 | XMS REPORT | Summary of Care ---
:1965 Author Organization [facility] Address [address] [place] [address] Care Team Providers Name Role Phone Correction, Dept Of Primary Care Provider Reason for Referral Radiology Services (STAT) Status Reason Specialty Diagnoses / Referred By Referred To Procedures Contact Contact New Request Diagnostic Diagnoses Other complication of vascular dialysis catheter, initial encounter Renata Delgadillo Radiology Procedures Chest 1 View J, DO [address] [place], [place] [id number] Reason for Visit Reason Comments Other dialysis cath issue Auth/Cert Status Reason Specialty Diagnoses / Referred By Referred To Procedures Contact Contact Emergency Medicine Adc Em ergency Dept [address] [phone] Fax: Encounter Details Date Type Department Care Team Description 05/08/2020 Emergency ADC-Emergency Renata Delgadillo Other c omplication of Department DO vascular dialysis [address] catheter, [place] [address] encounter (Primary Dx) [place] [address] [phone] Allergies No Known Allergiesdocumented as of this [...] Delgadillo DO - 05/08/2020 2:31 PM CDT [facility] Emergency Department Note Patient Name: Cr Orellana Date of : 1965 55 year old male Treatment Room: MA4/MA4 Primary Care Physician: JESSE DEPT OF CORRECTION Patient Escorted by: Law enforcement [8] Mode of Arrival: Law enforcement [6] EMS Treatment Prior to ED Arrival: SISAL PICKER treatment: Medication (comment) SISAL PICKER treatment comments: abx given today Travel and [...] brought for eval. Is currently incarcerated with [facility] for 2- 3 days. C/o [...] he is ESRD patient. Patient is a [facility] inmate so will need transfer to [facility] or . covid is negative. Pending admission. 1720 - patient accepted to [facility] for continued management. MDM: Coding Diagnosis/Impression: ICD-10-CM ICD-9-CM 1. Other complication of vascular dialysis catheter, initial encounter T82.49XA 996.73 Disposition/Condition: ED Disposition None Discharge Medications: Patient's Medications No medications on file Follow-up: Electronically signed by: Renata Delgadillo DO 05/08/2020 3:02 PM documented in this encounter Miscellaneous Notes ED Nurse Note - Erika Miguel RN - 05/08/2020 6:26 PM CDTPatient transferred to [facility] for diagnosis of Central line infection. Patient [...] complication o f Results for this PANEL (39290) PM CDT vascular dialysis procedure are in [...] CDT) PROTIME PATIENT 12.6 12.0 - 14.7 [facility] LABORATORY INR 1.0Comment: Normal [facility] INR <1.1; Warfarin [facility] Therapeutic range LABORATORY 2.0 to 3.0 or 2.5 to 3.5, depending upon the indications. Specimen Blood - VENOUS Performing Organization Address City/State/Zipcode Phone Number [facility] CLIA: [id number] [place] [address] CBC with Differential (05/08/2020 3:51 PM CDT) Pathologist Sig nature WBC 7.39 4.20 - 10.70 [facility] 10*3/L [facility] LABORATORY RBC 2.79 (L) 4.26 - 5.52 [facility] 10*6/L [facility] LABORATORY HGB 9.1 (L) 12.2 - 16.4 g/dL [facility] LABORATORY HCT 26.8 (L) 38.4 - 49.3 % [facility] LABORATORY MCV 96.1 (H) 81.7 - 95.6 fL [facility] MCH 32.6 26.1 - 32.7 pg [facility] MCHC 34.0 31.2 - 35.0 g/dL [facility] RDW-SD 63.0 (H) 38.5 - 51.6 fL [facility] RDW-CV 17.8 (H) 12.1 - 15.4 % [facility] LABORATORY PLT 139 (L) 150 - 328 [facility] 10*3/L [facility] LABORATORY MPV 9.2 (L) 9.8 - 13.0 fL [facility] LABORATORY NRBC/100 WBC 0.0 0.0 - 10.0 /100 [facility] LABORATORY NRBC x10^3 <0.01 10*3/L [facility] LABORATORY SEG % 60 33 - 76 % [facility] LABORATORY BAND % 4 (H) 0 - 1 % [facility] LABORATORY LYMPH % 30 14 - 54 % [facility] LABORATORY MONO % 4 0 - 4 % [facility] LABORATORY EOS % 2 0 - 3 % [facility] LABORATORY ANC 4.70 1.99 - 6.95 [facility] 10*3/uL HOSPITAL LABORATORY TOXIC CHANGES Present (A) [facility] LABORATORY Specimen Blood - VENOUS Performing Organization Address City/State/Zipcode Phone Number [facility] CLIA: [id number] [place] [address] Chest 1 [address] [...] nature MAGNESIUM 1.8 1.7 - 2.4 mg/dL [facility] LABORATORY Specimen Blood - VENOUS Performing Organization Address City/[facility]/Zipcode Phone Number [facility] CLIA: [id number] [place] [address] Troponin I (05/08/2020 3:31 PM CDT) Pathologist Sig nature TROPONIN I 0.029 <=0.034 ng/mL [facility] LABORATORY Specimen Blood - VENOUS Narrative Performed At Equal or Less than 0.034 ng/ml---Normal [facility] LABORATORY Note: Cardiac troponin begins to [...] patient's use of biotin. Performing Organization Address [facility] Phone Number [facility] CLIA: [id number] [place], [place] [id number] LABORATORY [address] [facility] Hepatic Function Panel (ALB, T.PRO, BILI T, BU/BC, ALT, AST, ALK PHOS) (05/08/2020 3:31 PM CDT) Pathologist Sig nature TOTAL BILI 0.4 0.1 - 1.1 mg/dL [facility] LABORATORY BILI UNCON 0.4 0.1 - 1.1 mg/dL [facility] LABORATORY BILI CONJ 0.0 0.0 - 0.3 mg/dL [facility] LABORATORY T PROTEIN 7.4 6.3 - 8.2 g/dL [facility] LABORATORY ALBUMIN 4.0 3.5 - 5.0 g/dL [facility] LABORATORY ALK PHOS 70 34 - 122 U/L [facility] LABORATORY ALTv 14 5 - 50 U/L [facility] LABORATORY AST(SGOT) 31 13 - 40 U/L [facility] LABORATORY Specimen Blood - VENOUS Performing Organization Address [facility] Phone Number [facility] CLIA: [id number] [place] [address] LABORATORY [address] [facility] Basic Metabolic Panel (NA, K, CL, CO2, GLUCOSE, BUN, CREATININE, CA) (05/08/2020 3:31 PM CDT) NA 135 135 - 145 [facility] mmol/L [facility] LABORATORY K 4.1 3.5 - 5.0 [facility] mmol/L [facility] LABORATORY CL 97 (L) 98 - 108 mmol/L [facility] LABORATORY CO2 TOTAL 27 23 - 31 mmol/L [facility] LABORATORY AGAP 11 2 - 16 [facility] BUN 25 (H) 7 - 23 mg/dL [facility] GLUCOSE 181 (H) 70 - 110 mg/dL [facility] CREATININE 7.38 (H) 0.60 - 1.25 [facility] mg/dL [facility] LABORATORY CALCIUM 8.9 8.6 - 10.6 [facility] mg/dL [facility] LABORATORY eGFR Calculation 7.7 mL/min/1.73m2 [facility] (Non[facility] LABORATORY [place]ian) eGFR Calculation 9.3 mL/min/1.73m2 [facility] () [facility] LABORATORY Specimen Blood - VENOUS Narrative Performed At Association of Glomerular Filtration Rate (GFR) [facility] LABORATORY and Staging of Kidney Disease* [...] tests). Performing Organization Address City/State/Zipcode Phone Number [facility] CLIA: [id number] [place] [address] COVID-19 (ID NOW RAPID TESTING) (05/08/2020 3:14 PM CDT) SARS-CoV-2 Rapid ID Not Detected Not Detected [facility] LABORATORY Specimen Swab - NASOPHARYNGEAL SWAB Narrative Performed At [place] [facility] COVID-19 Assay is an isothermal nucleic [facility] LABORATORY acid amplification test intended for the qualitative detection of nucleic acid from SARS-CoV-2 viral RNA in nasopharyngeal (HIGH DENSITY FINISHING OPERATOR) specimens. It is used under Emergency Use [...] indicated. Performing Organization Address City/State/Zipcode Phone Number [facility] CLIA: [id number] [place] [address] documented in this encounter Visit Diagnoses [...] ype Group Dates [employer] [id number] 2020-[address] [address] [place] [address] [place] [address] [facility] [id number] 2020-Pres [place], [place] Agency [employer] F[employer] ent [id number] documented as of this encounter
--- OUTSIDE RECORDS SUMMARY | 2020-07-01 10:34 | XMS REPORT | Continuity of Care Document ---
:1965 Author Organization [facility] t Address [address] [place] [address] Care Team Providers Name Role Phone Santy Cardona MD, Kwaku Attending Clinician [phone] Cristopher LOWERY, Donna Attending Clinician David LOWERY, P. Attending Clinician Akilah Matthews MD Attending Clinician Mustapha LOWERY, Shea Attending Clinician Bello LOWERY, Akbar Attending Clinician Ariana LOWERY, Yaakov Attending Clinician KWAKU MIGUEL Attending Clinician Unavailable Verónica Delgadillo DO Attending Clinician KWAKU MIGUEL Admitting Clinician Unavailable Payers Payer Name Policy Type Policy Effective Date Expiration Date Sour ce Number MEDICAREMEDICARE A [id number] 2020 ANALILIA [place] [id number] 2019- 00:00:00 - [facility] REVIEWCDC [id number] 2020 ANALILIA Silva [id number] 00:00:00 - Medical [address] [place] [id number] MEDICAIDMEDICAID OF [id number] 2020 ANALILIA Estee patterson Donal [id number] 00:00:00 - Medical 0-PresentMedicaid Center Problems Condition Condition Condition Status Onset Resolution Last Treating Co mments Source Name Details Category Date Date Treatment Clinician Date Hyperkalem Hyperkalem Disease Active 2019-[address] [facility] 00 Dania PINA (acute PINA (acute Disease Active [facility] Allergies, Adverse Reactions, Alerts Allergy Allergy Status Severity Reaction(s) Onset Inactive Treating Comm ents Source Name Type Date Date Clinician Gabapent Drug Active 2019-[address] [facility] [facility]ergy 0[facility] Medical 00 [place] Social History Social Habit Start Date Stop Date Quantity Comments Source Sex Assigned At [facility] Smoking Status Start Date Stop Date Source Former smoker 2020-05-27 00:00:00 2020-05-27 00:00:00 [facility] Medications Ordered Filled Start Stop Current Ordering [...] Take [address] [facility] [address] (COREG) 25 0-13 - tablet (25 Tosha kes - MG tablet 00:00: 23:59 mg total) Me dical 00 :00 by mouth 2 Center (two) times daily. acetaminoph 2019-08 2020- No 1{tbl} Take [address] en-codeine 0-13 06-12 tablet by [facility] - (TYLENOL 00:00: 23:59 mouth Medical #3) 300-30 00 :00 every 6 Center mg per (six) tablet hours as needed for Pain for up to 10 days. Max Daily Amount: 4 tablets Immunizations Ordered Immunization Filled Immunization Date Status Commen ts Source Name Name Influenza Four-QIV 2020-05-25 Completed [facility] PF 3YR+ 00:00:00 Medical Center Vital Signs Vital Name Observation Time Observation Value Comments Source Systolic blood 2020-06-03 11:45:00 129 mm[Hg] [facility] Diastolic blood 2020-06-03 11:45:00 81 mm[Hg] [facility] Heart rate 2020-06-03 11:45:00 80 /min [facility] Body temperature 2020-06-03 11:45:00 36.72 Gissell [facility] Respiratory rate 2020-06-03 11:45:00 19 /min [facility] Oxygen saturation in 2020-06-03 11:45:00 97 /min [facility] Arterial blood by Medical Ce nter Pulse oximetry Body weight 2020-06-03 04:52:00 69.9 kg [facility] BMI 2020-06-03 04:52:00 24.88 kg/m2 [facility] Body height 2020-05-24 00:30:00 167.6 cm [facility] Procedures Procedure Date / Time Performed Performing Clinician Sourc e HEMODIALYSIS INPATIENT 2020-06-03 12:01:00 Marlo Hernandez [facility] MAGNESIUM 2020-06-03 04:07:00 Serenio, [facility] PT/APTT 2020-06-03 04:07:[facility]EL 2020-06-03 04:07:[address] [facility] CALCIUM, IONIZED 2020-06-03 04:07:[address] [facility] COMPREHENSIVE METABOLIC 2020-06-03 04:07:00 David [facility] PHOSPHORUS 2020-06-03 04:07:00 [facility] CBC W/PLT COUNT & AUTO 2020-06-03 04:07:00 Kanwal [facility] (CELLAVISION MANUAL DIFF) 2020-06-03 04:07:00 Kanwal [facility] PREPARE LEUKO-REDUCED RBC 2020-06-02 23:54:00 Delia Matthews [facility] BASIC METABOLIC PANEL (7) 2020-06-02 03:56:00 Kanwal [facility] MAGNESIUM 2020-06-02 03:56:00 Kanwal [facility] PT/APTT 2020-06-02 03:56:00 Kanwal [facility] HEPATIC FUNCTION PANEL 2020-06-02 03:56:[address] [facility] CBC W/PLT COUNT & AUTO 2020-06-02 03:56:00 Kanwal [facility] (CELLAVISION MANUAL DIFF) 2020-06-02 03:56:00 Kanwal [facility] TRANSFUSE LEUKO-REDUCED 2020-06-01 22:33:30 Delia Matthews [facility] RED BLOOD CELLS [facility] POCT-GLUCOSE METER 2020-06-01 22:11:00 Delia Matthews [facility] HEPATITIS B SURFACE 2020-06-01 19:23:00 DavidMarlo [facility] BASIC METABOLIC PANEL (7) 2020-06-01 04:32:00 SerSonido ribeiro [facility] MAGNESIUM 2020-06-01 04:32:00 Sergema [facility] PT/APTT 2020-06-01 04:32:00 Sergema [facility] HEPATIC FUNCTION PANEL 2020-06-01 04:32:[address] [facility] CBC W/PLT COUNT & AUTO 2020-06-01 04:32:00 Kanwal [facility] (CELLAVISION MANUAL DIFF) 2020-06-01 04:32:00 Kanwal [facility] HEMOGLOBIN AND HEMATOCRIT 2020-05-31 09:50:00 Delia Matthews [facility] TYPE AND SCREEN, 2020-05-31 09:50:00 Delia Matthews [facility] BASIC METABOLIC PANEL (7) 2020-05-31 05:34:00 Kanwal [facility] MAGNESIUM 2020-05-31 05:34:00 Kanwal [facility] PT/APTT 2020-05-31 05:34:00 Kanwal [facility] HEPATIC FUNCTION PANEL 2020-05-31 05:34:00 Sergema [facility] CBC W/PLT COUNT & AUTO 2020-05-31 05:34:00 Kanwal [facility] S [facility] (CELLAVISION MANUAL DIFF) 2020-05-31 05:34:00 Sergema [facility] BASIC METABOLIC PANEL (7) 2020-05-30 04:39:00 Sergema [facility] MAGNESIUM 2020-05-30 04:39:00 Serenibelgica [facility] PT/APTT 2020-05-30 04:39:00 Serenibelgica [facility] HEPATIC FUNCTION PANEL 2020-05-30 04:39:[address] [facility] CBC W/PLT COUNT & AUTO 2020-05-30 04:39:00 Sergema [facility] (CELLAVISION MANUAL DIFF) 2020-05-30 04:39:00 Sergema [facility] BASIC METABOLIC PANEL (7) 2020-05-29 04:50:00 Sergema [facility] MAGNESIUM 2020-05-29 04:50:00 Sergema [facility] PT/APTT 2020-05-29 04:50:00 Sergema [facility] HEPATIC FUNCTION PANEL 2020-05-29 04:50:[address] [facility] PHOSPHORUS 2020-05-29 04:50:00 Christofer [facility] CBC W/PLT COUNT & AUTO 2020-05-29 04:50:00 Sergema [facility] (CELLAVISION MANUAL DIFF) 2020-05-29 04:50:00 Kanwal [facility] HEPATITIS PANEL, ACUTE 2020-05-28 14:19:00 CassieDelia wei [facility] D-DIMER 2020-05-28 03:59:00 Delia Matthews [facility] BASIC METABOLIC PANEL (7) 2020-05-28 03:59:00 Sergema [facility] MAGNESIUM 2020-05-28 03:59:00 Serenibelgica [facility] PT/APTT 2020-05-28 03:59:00 Serenibelgica Sonido [facility] HEPATIC FUNCTION PANEL 2020-05-28 03:59:00 SerSonido ribeiro [facility] S t [facility] COMPREHENSIVE METABOLIC 2020-05-28 03:59:[address] Delia Matthews [facility] CBC W/PLT COUNT & AUTO 2020-05-28 03:59:00 Sonido Schofield [facility] S [facility] DIFFERENTIAL [facility] (CELLAVISION MANUAL DIFF) 2020-05-28 03:59:00 Sonido Schofield [facility] REPORT OF PROCEDURE - 2020-05-27 08:30:04 Myrna Monsalve [facility] ENDOSCOPY [facility] TISSUE EXAM 2020-05-27 08:20:00 [facility]OPSY 2020-05-27 07:59:00 Bello Myrna [facility] BASIC METABOLIC PANEL (7) 2020-05-27 03:40:00 Sonido Schofield [facility] MAGNESIUM 2020-05-27 03:40:00 Kanwal [facility] PT/APTT 2020-05-27 03:40:00 Sergema [facility] HEPATIC FUNCTION PANEL 2020-05-27 03:40:00 Kanwal Sonido [facility] S [facility] CBC W/PLT COUNT & AUTO 2020-05-27 03:40:00 Sergema Sonido [facility] S t [facility] DIFFERENTIAL [facility] (MANUAL DIFFERENTIAL) 2020-05-27 03:40:00 Delia Matthews [facility] TRANSFUSION SERVICE 2020-05-26 18:21:41 Christopher Rivas [facility] HEPATITIS C PCR, 2020-05-26 12:26:[address] [facility] D-DIMER 2020-05-26 12:26:00 Vee Hernandez [facility] BASIC METABOLIC PANEL (7) 2020-05-26 03:50:00 Sonido Schofield [facility] MAGNESIUM 2020-05-26 03:50:00 Sergema [facility] PHOSPHORUS 2020-05-26 03:50:00 Sergema [facility] PT/APTT 2020-05-26 03:50:00 Sergema [facility] HEPATIC FUNCTION PANEL 2020-05-26 03:50:[address] [facility] CALCIUM, IONIZED 2020-05-26 03:50:00 Kanwal [facility] COMPREHENSIVE METABOLIC 2020-05-26 03:50:00 Marlo Hernandez [facility] CBC W/PLT COUNT & AUTO 2020-05-26 03:50:00 Kanwal [facility] (CELLAVISION MANUAL DIFF) 2020-05-26 03:50:00 Kanwal [facility] PREPARE LEUKO-REDUCED RBC 2020-05-25 23:54:00 Kanwal [facility] TSH/FREE T4 IF INDICATED 2020-05-25 19:14:00 Vee Hernandez [facility] HEMOGLOBIN AND HEMATOCRIT 2020-05-25 19:14:00 Layo Ley [facility] TRANSFUSION SERVICE 2020-05-25 18:01:32 Christopher Rivas [facility] HEMOGLOBIN AND HEMATOCRIT 2020-05-25 11:42:00 Av Layo [facility] LACTATE DEHYDROGENASE 2020-05-25 11:42:00 Dixie [facility] ([facility]) [facility] PROTHROMBIN TIME/INR 2020-05-25 11:42:00 Dixie [facility] D-DIMER 2020-05-25 11:42:00 Dixie [facility] CBC W/PLT COUNT & AUTO 2020-05-25 11:42:00 [facility] TROPONIN I 2020-05-25 03:42:00 Sergema [facility] MAGNESIUM 2020-05-25 03:42:00 Sergema [facility] PHOSPHORUS 2020-05-25 03:42:00 [facility] HEPATIC FUNCTION PANEL 2020-05-25 03:42:00 [facility] CALCIUM, IONIZED 2020-05-25 03:42:00 [facility] LACTIC ACID, VENOUS 2020-05-25 03:42:00 [facility] COMPREHENSIVE METABOLIC 2020-05-25 03:42:00 [facility] RETICULOCYTE COUNT 2020-05-25 03:42:00 [facility] PERIPHERAL BLOOD SMEAR - 2020-05-25 03:42:00 Bala Genao [facility] - PATHOLOGIST REVIEW Medical Cente r CBC W/PLT COUNT & AUTO 2020-05-25 03:42:00 Kanwal [facility] (CELLAVISION MANUAL DIFF) 2020-05-25 03:42:00 Kanwal [facility] PT/APTT 2020-05-25 03:41:00 [facility] IRON, TIBC, % SAT. 2020-05-25 03:41:00 [facility] (WITHOUT FERRITIN) [facility] F[facility] 2020-05-25 03:41:00 [facility] HAPTOGLOBIN 2020-05-25 03:41:00 [facility] XR CHEST 1 VIEW 2020-05-25 02:00:00 [facility] - PORTABLE/BEDSIDE [facility] US TESTICULAR (SCROTUM) 2020-05-25 01:24:00 José Manuel Leyegan [facility] TRANSFUSE LEUKO-REDUCED 2020-05-25 01:22:54 Sonido Schofield [facility] RED BLOOD CELLS [facility] PREPARE LEUKO-REDUCED RBC 2020-05-24 21:55:00 Sonido Schofield [facility] HEMOGLOBIN AND HEMATOCRIT 2020-05-24 20:40:00 Layo Ley [facility] HEPATITIS B SURFACE 2020-05-24 20:40:00 Marlo Hernandez [facility] DRUG TEST, GENERAL 2020-05-24 18:40:00 [facility]INE [facility] TROPONIN I 2020-05-24 17:32:00 Kanwal [facility] B-TYPE NATRIURETIC FACTOR 2020-05-24 17:32:00 Sonido Schofield [facility] (BNP) [facility] TROPONIN I 2020-05-24 12:30:00 Kanwal [facility] HEMOGLOBIN AND HEMATOCRIT 2020-05-24 12:30:00 José Manuel Leyegan [facility] BASIC METABOLIC PANEL (7) 2020-05-24 12:30:00 José Manuel Leyegan [facility] 2D ECHO W/ DOPPLER 2020-05-24 09:17:10 Santy Cardona [facility] (CW/PW/COLOR) [facility] HEMOGLOBIN AND HEMATOCRIT 2020-05-24 08:02:00 Adela Miguel [facility] TROPONIN I 2020-05-24 08:02:00 Kanwal [facility] BASIC METABOLIC PANEL (7) 2020-05-24 08:02:00 Layo Ley [facility] PHOSPHORUS 2020-05-24 08:02:00 [facility]SF[facility] LEUKO-REDUCED 2020-05-24 07:31:48 Kanwal [facility] RED BLOOD CELLS [facility] LACTIC ACID, VENOUS 2020-05-24 03:57:00 Kanwal [facility] ABORH, MANUAL 2020-05-24 03:57:00 Vidhi Flowers [facility] CALCIUM, IONIZED 2020-05-24 03:56:00 Kanwal [facility] BASIC METABOLIC PANEL (7) 2020-05-24 03:48:00 Kanwal [facility] I [facility] MAGNESIUM 2020-05-24 03:48:00 Kanwal [facility] PHOSPHORUS 2020-05-24 03:48:00 Kanwal [facility] PT/APTT 2020-05-24 03:48:00 Kanwal [facility] HEPATIC FUNCTION PANEL 2020-05-24 03:48:[address] [facility] HEMOGLOBIN A1C 2020-05-24 03:48:00 Santy [facility] HIV-1 ANTIGEN WITH 2020-05-24 03:48:00 Santy [facility] - HIV-1/2 ANTIBODY [facility] VITAMIN B12 AND FOLATE 2020-05-24 03:48:00 [facility] W/PLT COUNT & AUTO 2020-05-24 03:48:00 Kanwal [facility] DIFFERENTIAL [facility] BLOOD CULTURE 2020-05-24 03:34:00 Sergema [facility] PT/APTT 2020-05-24 02:59:00 Kanwal [facility] TYPE AND SCREEN, 2020-05-24 02:59:00 Sergema [facility] AUTOMATED [facility] BLOOD CULTURE 2020-05-24 02:58:00 Kanwal Sonido [facility] SARS-COV2/RT-PCR ([facility] & 2020-05-24 02:33:00 Sonido Schofield [facility] - REF LABS) [facility] XR CHEST 1 VIEW 2020-05-24 01:37:00 Sonido Schofield [facility] - PORTABLE/BEDSIDE [facility] BASIC METABOLIC PANEL (7) 2020-05-24 01:29:00 Sonido Schofield I [facility] MAGNESIUM 2020-05-24 01:29:00 Kanwal [facility] PHOSPHORUS 2020-05-24 01:29:00 [facility] HEPATIC FUNCTION PANEL 2020-05-24 01:29:[address] [facility] LACTIC ACID, VENOUS 2020-05-24 01:29:00 [facility] L u[facility] TROPONIN I 2020-05-24 01:29:00 [facility] CBC W/PLT COUNT & AUTO 2020-05-24 01:29:00 Kanwal Sonido [facility] DIFFERENTIAL [facility] BLOOD GAS, VENOUS 2020-05-24 01:28:00 [facility] B-TYPE NATRIURETIC FACTOR 2020-05-24 01:27:00 Sonido Schofield [facility] - (BNP) [facility] REPORT OF PROCEDURE - 2020-05-24 00:00:00 Provider, Default [facility] - ENDOSCOPY SCAN Scanning [facility] SARS-COV2/RT-PCR ([facility] & 2020-02-22 10:34:00 [facility] - REF LABS) Medical Center Plan of Care Planned Activity Planned Date Details Comments Source Future Scheduled 2020-05-[address] [address] [facility] Test 00:00:00 (WELCOME TO [facility] MEDICARE) [code = Medicare IPPE (WELCOME TO MEDICARE)] Future Scheduled [address] [facility] - Test 00:00[facility]00 (procedure) [code = Medical Center 77028298] Future Scheduled 1965 Screening for ANALILIA Stanton [facility] - Test 00:00:00 malignant neoplasm Medical C enter of colon (procedure) [code = 626196676] Encounters Start End Encounter Admission Attending Care Care Encounter Source Date/Time Date/Time Type Type Clinicians Facility Department ID 2020-05-08 2020-05-08 Emergency [facility] [id number] 14:38:00 18:28:00 Renata Verónica Ramos [id number] [place] [id number] [place] [id number] Results Test Description Test Time Test Comments Results Result Sourc e Comments HEMODIALYSIS 2020-06-03 Alon GarrettANALILIA INPATIENT 12:01:00 RN 06/03/2020 - Medic al 12:01 [facility] Results Component Value Date GLUCOSE 89 [...] K/CU MM L MPV (test code = 07086-3) 10.8 fL 9.4-12.4 nRBC (test code = 413) 1 0- 0 /100 WBC H Lab Interpretation (test code = 69860-3) Abnormal [facility] [id number] 10:02:00 Test Item Value Reference Range Interpretation [...] = 3438) FANTA (test code = FANTA) Waiter/Waitress Third Class ID - Chris DixonUser comments: Slide comments: Lab Interpretation (test Abnormal code = 31138-6) [facility] W/PLT COUNT & AUTO [id number] 10:02:00 Test Item Value Reference Range Interpretation [...] CONCENTRATION Decreased (CELLAVISION)(BEAKER) (test code = 3438) Waiter/Waitress Third Class ID - Chris Mtz comments: Slide comments:Comprehensive metabolic [id number] 05:15:00 Test Item Value Reference Range Interpretation Comments Protein, Total (test 6.5 6.0- 8.3 gm/dL Speci men slightly code = 2885-2) hemolyzed Albumin (test code = 3.3 g/dL 3.5-5 L Specime n slightly 38421-8) hemolyzed Alkaline Phosphatase 71 U/L 40-150 (test code = 6768-6) Total Bilirubin (test 0.3 mg/dL 0.2-1.2 Specim en slightly code = 1975-2) hemolyzed Sodium (test code = 134 meq/L 136-145 L 295-2) Potassium (test code = 5.1 meq/L 3.5-5.1 Speci men slightly 2823-3) hemolyzed Chloride (test code = 96 meq/L 98-107 L 2074-0) CO2 (test code = 24 meq/L 22-29 2027-9) BUN (test code = 60 mg/dL 7-21 H 3094-0) Creatinine (test code 9.02 mg/dL 0.57-1.25 H Specim en slightly = 2160-0) hemolyzed Glucose (test code = 89 mg/dL 70-105 2345-7) Calcium (test code = 9.2 mg/dL 8.4-10.2 87568-9) AST (test code = 42 U/L 5-34 H Specimen sl ightly 1920-8) hemolyzed ALT (test code = 14 U/L 6-55 Specimen sl ightly 1742-6) hemolyzed EGFR (test code = 6 mL/min/1.73 [place] [address]-8) NOT ACCURATE CREATININE CLEARANCE IN PREDICTING GLOMERULAR FILTRATION RATE . ESTIMATED GFR I S NOT APPLICABLE FOR DIALYSIS PATIENTS. AFNTA (test code = FANTA) Waiter/Waitress Third Class ID - BONILLA M Lab Interpretation Abnormal (test code = 06376-9) [facility]OL[facility] [id number] 05:15:00 Test Item Value Reference Range Interpretation [...] S NOT APPLICABLE FOR DIALYSIS PATIEN TS. Waiter/Waitress Third [facility] [id number] 05:03:00 Test Item Value Reference Range Interpretation Comments Protein, Total (test 6.5 6.0- 8.3 gm/dL Speci men code = 2885-2) slightly hemolyzed Albumin (test code = 3.3 g/dL 3.5-5 L [place] n 38902-8) slightly hemolyzed Total Bilirubin (test 0.3 mg/dL 0.2-1.2 Specim en code = 1975-2) slightly hemolyzed Bilirubin, Direct 0.1 mg/dL 0.1-0.5 Specimen (test code = 1967-7) slightl y hemolyzed Alkaline Phosphatase 71 U/L 40-150 (test code = 6768-6) AST (test code = 42 U/L 5-34 H Specimen 1920-8) slightly hemolyzed ALT (test code = 14 U/L 6-55 Specimen 1742-6) slightly hemolyzed FANTA (test code = FANTA) Waiter/Waitress Third Class ID - [facility] Lab Interpretation Abnormal (test code = 17733-6) [facility] Hospital[facility]2020-10-14 05:03:00 Test Item Value Reference Range Interpretation Comments Magnesium (test code = 2.0 mg/dL 1.6-2.6 Speci men 80737-9) slightly hemolyzed FANTA (test code = FANTA) Waiter/Waitress Third Class ID - [facility] Lab Interpretation Normal (test code = 63983-6) [facility] Hospital[facility]2020-10-14 05:03:00 Test Item Value Reference Range Interpretation Comments Phosphorus (test code 4.3 mg/dL 2.3-4.7 Specim en = 2777-1) slightly hemolyzed FANTA (test code = FANTA) Waiter/Waitress Third Class ID - BONILLA M Lab Interpretation Normal (test code = 38664-0) [facility]UM2020-10-14 05:03:00 Test Item Value Reference Range Interpretation Comments MAGNESIUM (BEAKER) 2.0 mg/dL 1.6-2.6 Specimen slightly (test code = 627) hemolyzed Waiter/Waitress Third Class ID - B[place]ILLA [id number] 05:03:00 Test Item Value Reference Range Interpretation Comments PHOSPHORUS (BEAKER) 4.3 mg/dL 2.3-4.7 Specimen slightly (test code = 604) hemolyzed Waiter/Waitress Third Class ID - B[place] MHEPATIC FUNCTION [id number] 05:03:00 Test Item Value Reference Range Interpretation [...] Specimen slightly (test code = 347) hemolyzed Waiter/Waitress Third Class ID - BONILLA [id number] 04:44:00 Test Item Value Reference Range Interpretation Comments Protime (test code = 14.1 11.9- 14.2 5902-2) seconds INR (test code = 1.12 <=5.90 6301-6) PTT (test code = 38.0 22.5- 36.0 H 97965-2) seconds FANTA (test code = FANTA) Effective 01/16/2019: PT Reference Range ChangeNew: 11.9-14.2 Previous: 11.7-14.7 RECOMMENDED COUMADIN/WARFARIN INR THERAPY RANGESSTANDARD DOSE: 2.0-3.0 Includes: PROPHYLAXIS for venous thrombosis, systemic embolization; TREATMENT for venous thrombosis and/or pulmonary embolus.HIGH RISK: Target INR is 2.5-3.5 for patients wiht mechanical heart valves. Lab Interpretation Abnormal (test code = 20972-3) [facility]/[id number] 04:44:00 Test Item Value Reference Range Interpretation [...] is2.5-3.5 for patients wiht mechanical heart valves.Calcium, [id number] 04:34:00 Test Item Value Reference Range Interpretation Comments Calcium, Ion (test code = 1994-3) 1.17 mmol/L 1.12-1.27 pH, Blood (test code = 85647-4) 7.44 [facility] Hospital[facility], [id number] 04:34:00 Test Item Value Reference Range Interpretation Comments CALCIUM IONIZED (BEAKER) (test 1.17 mmol/L 1.12-1.27 code = 698) PH, BLOOD (BEAKER) (test code = 7.44 1810) Prepare Leuko-Red [id number] 23:54:00 Test Item Value Reference Range Interpretation Comments CROSSMATCH (test code = 2264) COMPATIBLE Unit ABO (test code = O Pos 4777353) UNIT NUMBER (test code = [id number] 934-0) Status (test code = 2313880) TX_TIMEINCHART Blood Bank Product (test code RED BLOOD CELLS = 2263) PRODUCT CODE (test code = M0437T22 933-2) [facility] W/PLT COUNT & AUTO [id number] 07:51:00 Test Item Value Reference Range Interpretation [...] CONCENTRATION Decreased (CELLAVISION)(BEAKER) (test code = 3438) Waiter/Waitress Third Class ID - Abby Higgins comments: Slide comments:Basic Metabolic [id number] 05:22:00 Test Item Value Reference Range Interpretation Comments Sodium (test code = 135 meq/L 136-145 L 2951-2) Potassium (test code = 4.7 meq/L 3.5-5.1 2823-3) Chloride (test code = 98 meq/L 98-107 2075-0) CO2 (test code = 25 meq/L 22-29 8-9) BUN (test code = 36 mg/dL 7-21 H 3094-0) Creatinine (test code 6.44 mg/dL 0.57-1.25 H = 2160-0) Glucose (test code = 96 mg/dL 70-105 2345-7) Calcium (test code = 8.6 mg/dL 8.4-10.2 24687-7) EGFR (test code = 9 mL/min/1.73 [place] [address]-3) NOT ACCURATE CREATININE CLEARANCE IN PREDICTING GLOMERULAR FILTRATION RATE . ESTIMATED GFR I S NOT APPLICABLE FOR DIALYSIS PATIENTS. FANTA (test code = FANTA) Waiter/Waitress Third Class ID - EDASI Lab Interpretation Abnormal (test code = 03462-1) [facility] METABOLIC [id number] 05:22:00 Test Item Value Reference Range Interpretation Comments SODIUM (BEAKER) 135 meq/L 136-145 L (test code = 381) POTASSIUM (BEAKER) 4.7 meq/L 3.5-5.1 (test code = 379) CHLORIDE (BEAKER) 98 meq/L 98-107 (test code = 382) CO2 (BEAKER) (test 25 meq/L 22-29 code = 355) BLOOD UREA NITROGEN 36 [...] S NOT APPLICABLE FOR DIALYSIS PATIEN TS. Waiter/Waitress Third Class ID - [id number] 04:52:00 Test Item Value Reference Range Interpretation Comments MAGNESIUM (BEAKER) (test code = 1.9 mg/dL 1.6-2.6 627) Waiter/Waitress Third Class ID - EDASIHEPATIC FUNCTION [id number] 04:52:00 Test Item Value Reference Range Interpretation [...] (test code = 15 U/L 6-55 347) Waiter/Waitress Third Class ID - EDASIPT/[id number] 04:20:00 Test Item Value Reference Range Interpretation [...] is2.5-3.5 for patients wiht mechanical heart valves.POC-Glucose [id number] 22:24:00 Test Item Value Reference Range Interpretation Comments POC-Glucose Meter (test 99 mg/dL 70-110 : TE STED AT [facility] code = 1538) [address] [facility], 770 30: Waiter/Waitress Third Class/Techni connie ID = [id number] for Jerson Morales Lab Interpretation (test Normal code = 22879-6) [facility] [id number] 22:24:00 Test Item Value Reference Range Interpretation Comments POC-GLUCOSE METER 99 mg/dL 70-110 : TESTED A T [facility] 6720 (BEAKER) (test code = [facility], 1538) [address]: Waiter/Waitress Third Class/Techni connie ID = [id number] for Camille ano, Jerson Hepatitis B surface [id number] 20:25:00 Test Item Value Reference Range Interpretation Comments Hep B S Ab (test code = 27.2 <8.0 mIU/mL H 00558-4) FANTA (test code = FANTA) Waiter/Waitress Third Class ID - DB Lab Interpretation (test Abnormal code = 93219-1) [facility] SUR[facility] [id number] 20:25:00 Test Item Value Reference Range Interpretation Comments HEPATITIS B SURFACE ANTIBODY 27.2 mIU/mL <8.0 H (BEAKER) (test code = 647) Waiter/Waitress Third Class ID - DBDrug Test, General Toxicology, [id number] 11:06:00 Test Item Value Reference Interpretation Comments Range Acetone(Quest) None Detected (test code = 3053) Methanol([facility]) None Detected (test code = 3054) Drug Test,Genrl see note The followin g compounds were Tox,U (test detected: Co tinine code = 6638499) (Nicotine Me tabolite) Morphine Osvaldo taminophen Hydromorphone Hydrocodone Benzoylecgoni ne (Cocaine Metabolite) Cyclobenzaprine For a list of compounds an d limits of detection go to:http://educa tion.Beroomers.BIOeCON/faq /ICP228 ISOPROPANOL None Detected (test code = 5123755) ETHANOL (test None Detected Volatile code = 8949962) Limit of Det ection: 5 mg/dL This test was d ivanaoped and its analytical performancechar acteristics have been deter mined by [employer] [place], [place]. It hasnot been enoch ared or approved by the U.S. Food and DrugAdministrat ion. This assay has been validated pursuantto the CLIA regulations and is used for clinicalpurpose s. FANTA (test code Performing Lab = FANTA) [address] [employer] [facility], [id number] [place] [address] [place] [address] Mckenna Lopez MD, PhD [facility]PLT COUNT & AUTO [id number] 08:11:00 Test Item Value Reference Range Interpretation [...] CONCENTRATION Decreased (CELLAVISION)(BEAKER) (test code = 3438) Waiter/Waitress Third Class ID - Jonna Pascual comments: Slide comments:BASIC [...] S NOT APPLICABLE FOR DIALYSIS PATIEN TS. Waiter/Waitress Third Class ID - BONILLA [id number] 05:45:00 Test Item Value Reference Range Interpretation Comments MAGNESIUM (BEAKER) (test code = 2.2 mg/dL 1.6-2.6 627) Waiter/Waitress Third Class ID - BONILLA MHEPATIC FUNCTION [id number] 05:45:00 Test Item Value Reference Range Interpretation [...] (test code = 11 U/L 6-55 347) Waiter/Waitress Third Class ID - BONILLA MPT/[id number] 05:17:00 Test Item Value Reference Range Interpretation [...] patients wiht mechanical heart valves.Type and screen, [id number] 11:24:00 Test Item Value Reference Range Interpretation Comments ABO/RH AUTOMATED (BEAKER) (test O POSITIVE code = 2260) Ab Scrn (test code = 890-4) NEGATIVE [facility]em[facility] and jwhfeskvws7873-02-20 09:57:00 Test Item Value Reference Range Interpretation Comments Hemoglobin (test code = 7.2 13.7- 17.5 GM/DL L 786-4) Hematocrit (test code = 21.2 % 40.1-51 L 4544-3) FANTA (test code = FANTA) Waiter/Waitress Third Class ID - [id number] Lab Interpretation (test Abnormal code = 94747-6) [facility]MO[facility] AND [id number] 09:57:00 Test Item Value Reference Range Interpretation Comments HEMOGLOBIN (BEAKER) (test code = 7.2 GM/DL 13.7-17.5 L 410) HEMATOCRIT (BEAKER) (test code = 21.2 % 40.1-51.0 L 411) Waiter/Waitress Third Class ID - 6000CBC W/PLT COUNT & AUTO [id number] 08:25:00 Test Item Value Reference Range Interpretation [...] CONCENTRATION Decreased (CELLAVISION)(BEAKER) (test code = 3438) Waiter/Waitress Third Class EVELYNE Adams comments: Slide comments:BASIC METABOLIC [id number] 06:33:00 Test Item Value Reference Range Interpretation [...] S NOT APPLICABLE FOR DIALYSIS PATIEN TS. Waiter/Waitress Third Class ID Joseph PORTILLO [id number] 06:22:00 Test Item Value Reference Range Interpretation Comments MAGNESIUM (BEAKER) (test code = 2.1 mg/dL 1.6-2.6 627) Waiter/Waitress Third Class EVELYNE PORTILLO LHEPATIC FUNCTION [id number] 06:22:00 Test Item Value Reference Range Interpretation [...] (test code = 12 U/L 6-55 347) Waiter/Waitress Third Class ID - BANDAR LPT/[id number] 06:13:00 Test Item Value Reference Range Interpretation [...] mechanical heart valves.CBC W/PLT COUNT & AUTO [id number] 07:32:00 Test Item Value Reference Range Interpretation [...] (CELLAVISION)(BEAKER) (test code = 3438) BASIC METABOLIC [id number] 06:02:00 Test Item Value Reference Range Interpretation [...] S NOT APPLICABLE FOR DIALYSIS PATIEN TS. [id number] 06:00:00 Test Item Value Reference Range Interpretation Comments MAGNESIUM (BEAKER) (test code = 2.0 mg/dL 1.6-2.6 627) HEPATIC FUNCTION [id number] 06:00:00 Test Item Value Reference Range Interpretation [...] (test code = 12 U/L 6-55 347) PT/[id number] 05:30:00 Test Item Value Reference Range Interpretation [...] mechanical heart valves.CBC W/PLT COUNT & AUTO [id number] 07:05:00 Test Item Value Reference Range Interpretation [...] CONCENTRATION Adequate (CELLAVISION)(BEAKER) (test code = 3438) Waiter/Waitress Third Class ID - Kaylee BansalUser comments: Slide comments:BASIC METABOLIC PANEL 2020-05-29 05:44:00 [...] S NOT APPLICABLE FOR DIALYSIS PATIEN TS. Waiter/Waitress Third Class ID - [id number] 05:42:00 Test Item Value Reference Range Interpretation Comments MAGNESIUM (BEAKER) 1.7 mg/dL 1.6-2.6 Specimen slightly (test code = 627) hemolyzed Waiter/Waitress Third Class ID - [id number] 05:42:00 Test Item Value Reference Range Interpretation Comments PHOSPHORUS (BEAKER) 4.8 mg/dL 2.3-4.7 H Specimen slightly (test code = 604) hemolyzed Waiter/Waitress Third Class ID - EDASIHEPATIC FUNCTION [id number] 05:42:00 Test Item Value Reference Range Interpretation [...] Specimen slightly (test code = 347) hemolyzed Waiter/Waitress Third Class ID - EDASIPT/[id number] 05:19:00 Test Item Value Reference Range Interpretation [...] = No growth in 5 days 6463-4) [facility] [id number] 05:01:00 Test Item Value Reference Range Interpretation Comments CULTURE (BEAKER) (test No growth in 5 days code = 1095) BLOOD [id number] 05:01:00 Test Item Value Reference Range Interpretation Comments CULTURE (BEAKER) (test No growth in 5 days code = 1095) Hepatitis panel, [id number] 18:27:00 Test Item Value Reference Range Interpretation Comments Hep A IgM (test code = Nonreactive Nonreactive 75778-2) Hep B C IgM (test code = Nonreactive Nonreactive 92169-4) Hepatitis C Ab (test code = Reactive Nonreactive A 66704-7) HBsAg Screen (test code = Nonreactive Nonreactive 5195-3) FANTA (test code = FANTA) Waiter/Waitress Third Class ID - DB Lab Interpretation (test Abnormal code = 14444-0) [facility], [id number] 18:27:00 Test Item Value Reference Range Interpretation Comments HEPATITIS A IGM ANTIBODY (BEAKER) Nonreactive Nonreactive (test code = 498) HEPATITIS B CORE IGM ANTIBODY Nonreactive Nonreactive (BEAKER) (test code = 645) HEPATITIS C ANTIBODY (BEAKER) Reactive Nonreactive A (test code = 367) HEPATITIS B SURFACE ANTIGEN (2) Nonreactive Nonreactive (BEAKER) (test code = 2585) Waiter/Waitress Third Class ID - DBTissue [id number] 13:01:00 Test Item Value Reference Range Interpretation Comments Case Report (test Surgical Pathology code = 104) Report Case: [id number] Authorizing Provider: Myrna Monsalve MD Collected: 05/27/2020 08:20 AM Ordering Location: [address] Received: 05/27/2020 02:50 PM SERVICE Pathologist: Rosa Cisneros MD Specimens: A) - Biopsy, Gastric, random biopsies R/O H. pylori B) - Biopsy, Gastroesophageal Junction, random biopsies R/O Islas's DIAGNOSIS (test code u3bjrVQpWSMym1ooKZWgaAHq = 3220) ZzEwMzNcZnRuYmpcdWMxIHtc exWrDPqkc8GtR5WyQqXzMOrw bnNpXGRlZmxhbmcxMDMzXGZ0 gkGnBBLmAQojWWCpWRzpZt2x pHVghDbrZyZaXGSwl6nvfxCE retaxNk9z2irMVFiPjH4zKJg ROilO0uefeHbmZJfBHXiOLp9 rO35AJHjrF8vuNZvMCnbcsNz AtT2XKqoYBUnPwC9HQNaeRYv UFUeC9cnRROwBMqsLAUwUYbg xGWjCIX3tSkig7Y4cFVodDVa dEtwLuOkIrYmVMDVy0GuKAh0 hWqoX0OwUDZwZnH0cJNtQAKw IGlsKGVkMTQiwbQ1oX07ETde scI1iITwv6Bjl39pk764yI0i qZPhKOR2JZKsDYWctXYhOEPx NZU8OIFuiCQxP3w1WeLbnEDm R3F1XeChgMVpP9C0PzIhxTAf P3M0QpCbhVNcOLOztUIeYq0x vDEvrYItzp1jyj68MSA4m3Lt uDgrJQK7CVR1XjGsSx4idXAv OTMhRN5qXlLbgSYsHVRsnq56 hCzkCTcrzgTrdW1gByJrQKTp vSQgJQEnRP3sfOBcYHHmnJ0d cmxjXHBnYnJkcmhlYWRccGdi ocEfBr3msKerSOA7AJymU6sh bC4sFyU1RVmrD6kweW2gVHa1 ZRfdeTB1ENHudW8cLF9fqoax p5szLdWnTA7jzzqdw0dnMdPr JQ9kgyp4r9puYfRbWD9zjnrc h7bvJoFhBAtfVDRmxolsOHJr w4DpckilDENvi7OhM0TojQon E81kuSyfX94qYIEoxIbylB4a xYygyC3vQkVtYlUzTXqtsSpw bGFpblxmMVxmczIwXGxhbmcx NDMcTWzrQ1onFiQlGFEjvErj AEfoe5GyXZOnIRMyXpXoHW6q Q9DJGOBBOYnyNK7XJ3LLT4YS ZeVTTQAUS9HOCSFAU9LYYNIV IFxwYXIgLSBBTlRSQUwgTVVD J3VWBDpUVTlbP5bAE13LTcWX TkFDVElWRSBHQVNUUklUSVMg RR6CSEEUA7HWLIqBWRBHDTuO QUwgTUVUQVBMQVNJQSwgXHBh ciAgIENPTVBMRVRFIFRZUEVc mKSqEF9sZ0dDBuEJWgOBBTAQ I8NhT1pXHPJCZuROETuGQJLE E7EBFLLYTVSIN9xMT9pNTUHG UGYZVKKAX09TMMTcvcQcXJ9Z H8YFRSYFYOYHCiYQVBmCB01V NLTRCTLuFFtFU6EPGAUizpFz ZG9HQ7TZIHSEDLJJFwCFFSNR LNTNYKFuN4OaV9PMM3yXM96W ZIKgbufcUDUlQf9iJ8IBRJOI AQTNEEbTO0SALFBKRU7CLYdC MtrhVN7PD1RHU6QFVxQMZTYQ S3AELEQUW6BMHQETMGBexjCa FZGKLWCPU6JHWJOWVvAENY3H H71KHROQVMEUIEQRWZzQWCAN BEGMYRUBP2vmYUHcQNIQUSjB PGbZBRIFQ5WbS8YAP2kRCQjk RUQgQkFSUkVUVCBNRVRBUExB B2oFHBKogoxpSAMnzQFgoXiz ipAdCSlew8FsHJfiMTJmFF1n hTbwTDRvDC5hXNZcS2tscI8q ded8OoMqPRUxHgF7QAMwchF9 Usp3JEGdUKpkl8nqj5KzYTVr ULh1kVihQzUnWNHbz3xfboDe LmSlSVXcCZNsCLBmaGIcQ085 m2ntl8snqlBjnWZ3DLAiCBX5 DLagcnWyduO5NDwmaNKxNrU3 IDtccmVkMFxncmVlbjBcYmx1 PLCuF001KAD9bQowg4fcXEO7 KZExIDEeFyWuIy5zuQYhN951 EJIsLNQPJMUrgNr2CVRireVu fiVfsUPYw975K725b4boHTXl gqVzvJfDpzcit8qbZ804LSKj cGVydzEyMjQwXHBhcGVyaDE1 TTMxZJ5vrjfqIDjkZEjpHLHe bvX8CEPfhXEnA1KtULKoID9f qaddXRU1UEmqONFlQSQ0XcNc MNIvh4Dhsqb3EnUvtq9jze92 MDI3o3GiiFppURL8UJA1AoVx Ro4dsDEfKCJmIC7eMjShmKQo MJUpus55hEgyMFazHUN4FUWf nzDwm0Awm0ztLhKcqrUpM4gs T2HnOKVhBDGxYXUsKdUnwnUy o9Qgw2EayOHtfSx2m0hqCYXz EVHphHgod1guOUV5KXUafRKl Q6scxI1lEREmYG4kfgicr0pf GFxhALlcHLHgfHX1pyH4FAFr zEXrZ6StiQ6tOSGzQSonLCUx peg1YxVwXh4asQTdvDtfQSct YmtwYWdlXHBnbmNvbnRccGdu ZGVjXHBsYWluXHBsYWluXGYw XGZzMjRccWxcbGFuZzEwMzNc aGljaFxmMVxkYmNoXGYxXGxv S1rcJqIjSsMrQyx2KWKgbQBr NVLoBxa5NEYzaEHlLSCHcGde sJ5kHWQxcModwU1zcYV7DUTm mdCqgRPCaC8lPEKMwC2aOmI0 AgBeWsL3CMRfHRlyyZFuzI7= COMMENT (test code = s8ieyTTbUNEfgLQnYqQtPPIg 3359) FEBco4yhJSIgxLJfKuYfGnQx CwDxUsweyOIjPZCeAmSkl5nm m829bXExc0pwSKIpQlY3vDWe PSBbzWQfS638v5pss4ougdMf qJC1AIIkCPT1UPrrrkKaitQ0 TQlgnSEyRcU3HArwbcCgZXsx hoQemkLbMwa9XYTxY066YCJ6 cMlfi3vhPKD8VUCeZUYgGaBj Rx4bcOQjQ440NWHjMCJVAXAe yNe2LCUkdcIlrtHztWYRm553 P783j5cmMBCqtkTqiXzQvwve s0opG692LIAjwILatkJyHeRn YDJvqYDqaDD0LZIqGH9pkojf XeWvTN5nwlxlXjPoNT2hcyv7 YsEmLL7drjhxYyOqVQyoXUDv reenYAJch2UgqhkaHA5kY7He h0Y2vE7alGEjQTBwfOHmLdCq TFFddj2nwSFrJSkjd5LmHVN2 amH0gAVzoTJrYNOnRG14Pdis o1PtKqzxSJP1BZKaakOre8Gj i7ldNsDnmvMpS8noY1NaMJUg HRHdUSPzEcNubyZgd3Hvk4Kv nTTupHn1r7ycFUMkOSGikLfa e2thUJS3POUqR3S2cFVjd4jb WDfgKDAmwHT3ajkwPLlvBLQh qlM0dybzLQvyDFPgaDJ0zhxj XZkbUKAkPkT0vfbiWDsmYWYn XIF3SLpej278SWD6ZIofOuxk YWdlXHBnbmNvbnRccGduZGVj XHBsYWluXHBsYWluXGYwXGZz ArNwxEzwaBmeyR1wXqEzMwJv GPurSB2jGNDoM8dpcJRoQBSq MPTbK4ecRsUznJ8aeFqwDYmc zvJhDV9roHYwoN== CPT Code(s) (test l9tipDJdIFDbtCUhJfMqPWJl code = 3357) QRUhe2daSDLirAQyRcTqAeUg GqMkQuxtyICnQEItVoQrw5ae z928uGPzb6grOBJoUhW8vNDy DFOlvISbI412e0jcr7girvJb yFZ7CIMhGYB7IEsatwPivyB7 QTithIUyZwQ6UIyfeaKqMGgx dtNojjUbUdv7EXDgA704QKR4 kBcfv9idVCB1DAIkTQLzZmGr Hs9awEKkH854BTMqGLQFOUAq nJh3ZQQdoxSfpfFpkKUSq026 E333k8qiXAIhvhTgnXpHhxma w6sgU058RADgpQImatEnVgZo JIPrnMQhrUQ5KYJcBH2phtgf KqCvBS6wszmxPqSbFQ8iqjo7 EqWrLP4sqqyvAgKbOUjoYYQm yfzrYYRou2IhjwbpPI0vC5Gw g0Z8mJ7tpJUtXAQlzAAlUbQt GVWzkn1cwIHfCOcnw7OhPTZ0 guQ2nBXeuGFuMEFsTW29Ynoh e3KnQjrrGSG2TWNkevGoq9Xb a6abJnUtmjHbK7nbD8LhCRTi QNZdLUExCqNbbqTeg4Sqi4Bb tWArrMh4w4rnVYHkMXYzbOcx c5gfRZT9RKMxG8U8pUEml1xi JQuyHDEjkKY2bhcdJFtgKXWq weH5bnajAXnwVSVlwXR7pwor LYzuJMXwNjA5kasqPNprZGXn GWQ5ITukc865FKG9KQvfEubj YWdlXHBnbmNvbnRccGduZGVj XHBsYWluXHBsYWluXGYwXGZz TsVtdAxuuWikaK8dNbXtMyIv OErzJM2gORDuB8ukxGEtRUMe AVGjJ1qgYpByqF6lqHgjMUgk ipHjIYp0SdN5VNnqSDJ3VKXo MlxwYXJ9 CLINICAL HISTORY e2rluSPsKAUiqCPeFuRhIBOt (test code = 3356) NHBwj3unNHUjaNUiSzHdUvVd RuKxRxnzkJEcZZZeEmGet6og t706zRLnj1qcXGTrWsB1nCLm ZEQsnUKaY230i1tji6eqseSr nVL9GQOcCJU9LAmwlyDibjH3 PPmzgVDsFsE8SDmrlvWjAEfj zuQnbwDfWoa2VGToJ432XGI3 wKirp7feXRY4INKeQDWjVpHu Un6utXGrC537GFUhFVURLMOc yOq3QUVcdjAcgyUrzZMOb889 C969f2iuZJPideCfhOaVjwsw o0vbI388MXFcpXJolbAgCqTh HZYsbYDtgWR5DSIsHH0govxp BfKiLN0brzjvFoZyNQ8sedu1 CzPeWJ7ivbboRzBlVIteKWYw uoleFBXnx5OtbqywYI2fG4Sc e8I2oF7rpFStLDYfdMOtBiRx HCTyei6twQNlZKqyn7EbNYB1 wlW3xDHsuDAnSYZeVM33Xbhb w8IfVgyiDYO4ZGMjrgSwr1Fw n3fnIxKzlxQyM1ruG4ZnHSAj TREeVKBtJeHtsaCzr7Zcf0Ck tUQqlVf6d7bzIDVgPOMpjDfp n4qlVVR8VLHsW3Y4jETnf9ep IHpjGIOgmGZ2xixeGQywDFUe qoK0qdglABuyGPGdvIR8tftc VMqhBVThEgA2rlezRNssDCVb LFH6SFkmz323SEE5LCkvEzmv YWdlXHBnbmNvbnRccGduZGVj XHBsYWluXHBsYWluXGYwXGZz ByRxyIqeiIdtfO4nLvZcQrAd ADxuTI6lTUUaB3ckfGIpHIZa RNCsC8cpAwKrjW8wgWwwTBpp hxRrLYIsGO9uHDDurRTutM== SPECIMEN SOURCE (test n0mceRWqVYWbmODtJaLuUCYv code = 3377) XSTok2taCOGvzDQaQxBwJmYj XcTgIqbgvRUlYMHrNlSer1qe r813oSMov2dbXTIjSlL4xYZl ZECsiVRbM781z2pst5lakaTw iNI4FQYxHEJ4XIvrhePjzkJ6 MRnihNUePqE5YJtancSqTKoh grDcxgSeErn4DIArL094FMH2 oRody9dtSIO2UTWsAFIlOzXo Uq2riGOnQ725JABvNCNKDQKt kFy8ZJVcnbIueoNvcMFDb119 W190b5ibYFTfbpKrdFiCgxqh v1saV985LKMdcOGauzNzErJd NTBksRHtkGF0ZFUcBO2khetf FaDeGH6hebloLmKxVE6zozd3 VxBsNU3hbvzjDmTaJZdtYOZq vqveZDZgo1MpfmvzTB6gG8Xr l4X7rG3wyYKxXIQvaSJwJeQs VKYkal0vyFWuNVyly5AkYTA2 tfR7nJLgtVAaYYBkHK45Rqii e7JoUobuYSM9USEutbDtm2Vd d6zhXuMxkzDoP6ifG5MpKEFr AXGoAIRoNhIecrYkd7Idg1An yMAdkVg0z8aqCXCwOUHmuTrn e5noKZL8QPNdT2H9zMWbx7bg AZdaHUQwfNU4ekfqIVajBNNu qrF0xuhmAHgaGVBcjBI7wmai OYvbRYMwFdW8zwlmVObhJARn NZR8UHwby011XVZ8IMtaWjnx YWdlXHBnbmNvbnRccGduZGVj XHBsYWluXHBsYWluXGYwXGZz UnQesPozwZrsmD5uXbFlTmFu AFsfFS2lUAVeG2tzjQRtDUIg KYLaS7xeOiUxoQ2npRttJLwp czIwIEEuIFJhbmRvbSBnYXN0 hhxwMFUjl9UupYlyuuOqNMNo rADiAK8fFQrwl3TuJVAbkyRN AfGPPL2wu67dT6TjtoZaQ8Gn f83pJewzmSM9XDSiiIkxNB31 xOSMYSRzQMY2H2RkJMHvxx5= GROSS DESCRIPTION d7yjkSDcMXOxgOXpCzDnHZOi (test code = 3366) WUBax0leVUTruFVzIoXnLcDk GdCyOssmwMCuUBJrOjNwc1bg b475eVUdc3oeFSMtKtA2mJGr RNVqbPHoT700DSQaDHbej4qr v5IyQYUjpBOkr3H9ODNVhlky qJg1cVncT87xz4Q9SlvuA9zs PTTjHYYtQ6WdQZ4kREFaQuu8 EDE7QCN9RUIfCRSxH1LjSV2s KAKmaGNiAYk8m9gqyOdsXBQo URJ0p8ciXWrflePyQA9lst0g rJs1e2invxXwVEHzKUMgkDME XIEzY6GakLsqFd8bySf3bJeh ThkkPRM5Wdx8SQ0ivi64qqg3 pAizYIHayvjoPtF7PZjsTPGs wdflOBr5QDeqROVskDvlAVgv YXJncjcyMFxtYXJndDcyMFxt HGZaKsdpMFhdBSQtPJQ4IFox o340KVW5NSljm7qsr9xkfQXo Fok6AHHoXbUvTxrlJBmzk5Zs o8dfTPXqwe5eCXD2pVVvtNvd d3T2aHQuPFOuzXBqffMxOSOx NyK2XOkbYA0qsm45BUXvAFQ1 tg4mhZQsoAypttFpkNNrOUcu K2MkBUKxi730ONJxB5SqJQQa x2S3pgCfEhEiHMGjrNP1qlO2 BSMyTCh0hTFthdB4fxTtyPJu O3jgrG28RwXpnUMzS1ProW85 YqQloMOsI5PrkG79WlMgvMFw Y4SmgK28IwXtqXFbPNQhwWBn Qz9wyVNrxEJne6BrfPJnSBzx P75vt444RGHufvUeN0bewUJk nhcdeDUowjrwKInompU6EKRb XHBsYWluXGYwXGZzMjBcbGFu ZzEwMzNcaGljaFxmMFxkYmNo XDOnCVmcR5anYwTtLxUuAPJK JuOJTMIvqAYgIVOavlShw1Pv YWxpbiBsYWJlbGVkIHdpdGgg nLxiJEHowRlwhiEgjlNoAT2f QYQuTBWlG7IrQRWiI52cJGXk xD2zHJLqHU2nPEJcRJJ6ocor JLOwf9QnsCKeWNAcZHK5rmBi wNPbRRCzi6UadIGqMLoknQKw RA28J28aLF3yo1HjvpLpETPx y2O2MUE1hRX7DD5pYNM3fvWn FM05ZRxxXI6aXTcuVI1dQZCs VLnfFNFrX4GrA3U7IK1mGUta ETTbNWLknZYiZZmaZZZ6Un7a nQUxQRQjppB6y0HgWRXrpMct z5eoViAjbMn0mwH3jC9jVZev FVZmq0FfrRNqSNOuIlglCLLq cGFyXHBsYWluXGYxXGZzMjBc bGFuZzEwMzNcaGljaFxmMVxk TdCzTYPkRWeuK5jhCkAqXjNf MCBCLiBSZWNlaXZlZCBpbiBm p7DxTSylxvNeJJSqgLExMCnz dGggdGhlIHBhdGllbnQncyBu JM7zOSEaMKNfV9PjJTVmC83x IIKijY8fENHvMF1oCTBVFNCz wE3wwZzsljSnhL1zw1sbTZEz BVC8a38ixErxZ6GmNH7nSUZm br99wCx9RHQovGNfx8XsT607 ALOkKWR3dBWjwGXtdYtytNZk IVMndTKwKLDpYBA8PLMnQaA0 BAOmOoSqtZWfofFwF4unCNsg tODsMROvDTZnfBGawB8qscRu irAgnJObdUJ0OMPpnQ7xrL72 luQui8jzx3dqcdzrUfjduQWx gCkbblCumcVwNEFnDPX2OZIF HG5ryFltjQ6vYqLgPzFnQQoq SD4yZMMkB2nqhNYfKBBxPOGy H2wsBwFnnW4fpLcfRXfbmwFy BLWOVRPmEKgyfMgtaO4qJqGm PjSaIOmhJE4aZKVoB0eljKCp OTBaUNVoH9dzXmHyuM7jfHwr MVxmczIwXHBhcn0= MICROSCOPIC m5cnsWSiOBLyjIMdSqIkYDVs DESCRIPTION (test DMDqk7reBFQaoILjJlGbZnLt code = 3371) McMdJojgqSGqQJHgFbCvf8ac h913sLGtj8wpHKSkYwK4cXRf XUTfiTPiD783TSSpFPlcj9cj s5HyHWQzrNFql3E2KNYBdpli lHa3vPzmZ85mj3T0HrndK9am MSNqCSQcO3FeOW0eBIZqFtx9 QWH9BMS2YXFlHGByJ3HpTC7s QGPlpKRsDOb6u0mipQstVKYn VQP2m7liCJnzyxCgTT8gwy1k oZy8h8fogsFwJNRoDTZriMSM AFLhV1GgzLhuJx5odHy7xLsz JpnnLLQ3Rwo8PF2llw98med3 sGshYPFvovwoBgO7YSkvNNPf jcwwHVc4BJdmLTYahVopTJck YXJncjcyMFxtYXJndDcyMFxt WSEeLyklDCveLBGyMXM5NBuz o632XHL8EEqss1vgp4pjsNIb Ock3VSPxYoQjQoqjYVlsk8Cb h9dpVZFpwh4qISF7bASfeGdg d6R0zKHpDKPfzDCikgEdMIFq TvU8VJxiEF1vjx50BTKuVXS6 la3yeLMrgIigfhCmvCOxVBsh L7DhHNBul604DHNoS8DlDUDz c9S9kzTkRfJiFHClpQA6njD8 VWGmQXe5aWDrcuC8udTaoKWl A0fxeE90XdJknXPgY0CjtD47 HhIpiYIrC3XmsR80MfXweCId X2MqiM82BaJyxAAvXGJxiQYb Zr7vgXQujRNoq2ZhmBFcJVps L97zk145CGNlqlOsH9ucvQIz emingAYcivldOIaoknM6IXYk XHBsYWluXGYxXGZzMjBcbGFu ZzEwMzNcaGljaFxmMVxkYmNo EWNsGZpwF8juNwVrLsTpVUOA MeMTXFW5wA0sMNIwp1xpHPks b3IqjOYjQN94jvZpBIZaEQMf cJnfcYjpYN28H50sXI0yNElx IFXaiMEjyYVyiWAxq7Vsb7xx n3UamNabJYYmrXRcrljhSBdg EJA3uFIoMYzwa6MnpYKznjP2 kXBtHHbgG46gnZqswMAzwE61 CKF8rF4gbHYzTFFnfFigc7vp GxEZjdMxI4RsifTnjX2sqARv eDP2uJ0yGNrjPZDiYIQwzoMp VFAtDTOcbEwneOghGM13C17h RNKsvC09twYreiQvhFmztBNx B8GhgAGffzUdSK5kEANvb93a URutszDdrH6sz6HobC4yCn9r SUfmbMbyq9RnE8UkqiLyxKfm cmkgaXMgbmVnYXRpdmUuIFRo SCMqJDrmLJ8gRUJ1g9OdSYIa GYHhezTiKHYhvD8woDBkIMRj osutAFSvBe9aA9NxdKosloMd oC14lnAfHXS5dr7tk46trQOa NGXgHNe8hgB0pX1cELwktXBi s7KuRSVmTBQwfJZbyO61vfLm IA5imWkrP9UwvVowpTEvi1Jj BtDWrMWbt1X2XX3ubXFrZVIe t0YwHUsvVHtgPDRuuNHtuaNt iDDcIoVRZDTljL6gtCpdfzUh SA09J01qAKGysE04neRwwaMz lyFanOu5fQMhHKSfUJ1iTGAa NDCoiC8zQ4R6PKUwfuQbU9Vy IIDsfKXztLfpNLJsCN5nBXAd BAJsh0f7kZ5zviSuaMLhr7Vb u0pxx5WnF3pxx14aEjNkztUz VB1lIXJda77nn1f6zPBiDLNv LG9gsRCaa4UrfRyrVcJJbdSs l8NzLAGhU1XosLJbPWRruDwf x1fnUDlhTVHbMT9dFKDozx1= SPECIAL STUDIES (test s8glgDJlFDTlr4guEYTpgCNn code = 3376) ZzEwMzNcZnRuYmpcdWMxIHtc rvLuOQcqd3XsV4GvHmFaVBrz bnNpXGRlZmxhbmcxMDMzXGZ0 rwXcGTRiWGrkINBhHAbwJj7v kGAzvOtaNoJoFKVyb7acsfEU aviosKb9y4faONXuHbW9rYDd TQttA0qckvPhfXQdQ8IjwOJi hIn8r7lgFzEmZqZ9oEGmUYkj O0ehqoYkdYKgWQZiDNp8qM47 FDYzfO9egTEgBBnvfqUeXkL8 AMvzEKRmIwR4AQJluIEdELCa H1lpYYKmFSqbZDOjIBmzgDYk SRT9tJwul5G2vGSopPUadEdr SjUsKrGtOyIMa0JaOPc4wBaj Y1WpWDAwEuP5dTUnNTGgCWtu WQBeUUNkzzV6aMjdnfDoi28t eHQyXGYwXGZzMjBcbGkwXHJp TMIOf7WdnKmzXTX7sGy0tSnc BnqtEAG1Ifr8XS9geb20rsx3 aUbbCRRvomiaJlL8XAevKWOy yymdEAv3QBkvIWBjeYT2VWIq vACwK3NkXKAdWR2mjba2LXC9 JIcbHIDtNtK5QDNzzLCeGYWp dRykJByiz447HVR7HpUmRR8y K2Dvz9K2nF1ccNUtXDWdtJFo SbIqIMDvpx3lsKOqPKwsv6Ol QAA4ajO9bYQciXMgCNZtRM87 Jdmyn4AmVydoj3QoV53ebYN0 ICred4nyXM0cRvM6gcVsMWgs l4bnjG9bVvI4VSkmQI3jYT5m YZWzwH2neobjAQVsVwRzfszm KHLcbExafiTsMv8eyBhyNIS9 HXnsH7ruhP2bSnZ0GMaxM5xu rS4pPDv2ZHmlxLZ7IPNfiU2d RK0urfkij4maAMxsJNtmTHSz gkG2dqB6IXKhnLGqA8YheS5x LPSdSB2eykieb5xcBNP7YYvj FSNmDEZ2BpTmNXRwn1Dnofx7 ZdCgs0WkoYZmXGqkY67rg474 FXHgciHoD5hnsNQzroldbRIp rquwRPcxnzX2HULgFAEuKJto XGYxXGZzMjJcbGFuZzEwMzNc aGljaFxmMVxkYmNoXGYxXGxv P8pfQpKiX4TlMVMrIzOnUEdq PWsbpGSztAZhzBE2dG4mSG7j TAEwgFHtT2NpWXUnlfToaFGa QSI8aWIndMHzWX8eULcvsMIp o8sqf1AhB0gukCvkbPD5PI2i AEAePBWhYQart3RzyA0iNwvx bGFpblxmMVxmczIyXGxhbmcx FPWnLZthY1plCwTzARArxIml WHhvg6ZtYDTsQOBiSdqmeuXl UWk3fwMiJOXswpgzIAXanNxx pP8lEdCjClVmBqbmAD0cGCLj C0nouDGbRXVhWSJyJ5akDhSg wL1caDgiTPbrSbPdBdGqEbBJ h970cv3vQVZquBIftlFIcJXc sR5xNGsnVMlcVJhsyFJvVEhl r4vmOHJpv2d3pLOuQEGiiiOi v5uxNUlhhwSiHEFckLRnnKVl BTBea06uVSzfaZeivEgzLROl y6LaaRzyt1ZxEwKsDXutg9Kg Q76kgUJcoCMxcCxzQJXyywDn OFCbh90nm9vsKCQxZlA8sCEr jYN9eKWqhPNvj1MshGvzQSLo l4woTCBthh1cwzqktORbh4Xb jO7cqkxbXYnjsPAxndTqOOQp x6w1oSYnMETkXPIpFKxhaUg4 OTTqk309wh1iykX1oJZlNAC1 YWlsYWJsZSBhcmUgZXZhbHVh dGVkXHBsYWluXGYxXGZzMjJc bGFuZzEwMzNcaGljaFxmMVxk PhJxGQOhXCqpO5qvDcXwV9Ht CKTbZfHykHZwG6htsIMeYBEp YWluXGYxXGZzMjJcbGFuZzEw MzNcaGljaFxmMVxkYmNoXGYx XDkoQ3dqIzBiU2LzZMDxVyRz IFxwbGFpblxmMVxmczIyXGxh gjdoMHAjPBraA2giMsGbXRIl sOuwRHzsc1DdPLAgANIgRgcl cnUwBAn5jvUsNNHswfpqrSZy blxmMVxmczIyXGxhbmcxMDMz ADbiE7ryFqJlQUIzrLwtUFmt w9VeZTSaCSViEcoirtYwRRya xYNqa4kke6IhD1dwrSjzqMS6 PFVrK7evaOMclZB2NGD6sA8p SOifuwPpPRZvf6IgMCHnPMSh IhL0wT9bADG0JnNRnQomKVFi YWluXGYxXGZzMjJcbGFuZzEw MzNcaGljaFxmMVxkYmNoXGYx FXyzG4aiLtSeV8QhPGRxQkXl vPcvFAixCKi6HwvbfCXhabjj MVxmczIyXGxhbmcxMDMzXGhp B0pzBfLyNSJmiQtxZFckk4Vm XGYxXGNmMlxmczIyIHMgTWVk pXVysZHVCY28JRHhXKEyfTwt wG9guICDOEQmayM2w1W7MVrf IDTsWQx6CVupmsUkRZLvlZ6m AUPlVL8qGGj9rqImYNHkn5Ni RI3vSQFswLOlSSN6ZMQty4Yl Q3Bbs3CnXJNzHGCuub7yloTs NsLCbRTuGLRmom24UZDpZA0c W2siSZYlSCLuwqJhfOCdy6Ke ZWImnJD4gDGsEN2JEySAe58h IGFuZCBEcnVnIEFkbWluaXN0 lvQ5dE3fUpRGvVMrRcYICMtx cuYaXTHchq8xdpHrZNXxZRUm s4InyWExlXJhmtTkW3Omm8Ur RIWitf46FRrjpNIdnh87AW0g X2Tzz9ZkmV6qWUiyNHLfg9Is jVRhsNVuHHWou8GuU3dcxnyn VIanlTGixD0oCQFwSKw3HGDw e2OeAPSer7UnVhQirkEtHKIn CZBbDBWpfI88CBN7dTrgkErq eqFcEU2yPORaleCwKFYjZADp mW9nVFlofdZmVXTrbmH8e6T9 XAidOAPxvzJxByrdVKV9psSc coK8kXNlN0qcqlpyWFyqXVPp f6FcfK8wmLQKqDIil6SirQEa fIULdLDpLZ4zjbDgZK5xZIR8 ODggKENMSUEtODgpIGFzIHF1 RZlqHtifBHU2oiXmGYRxk6Pz AYxtS2apT43cfCpfwTm8jHNh yPgzpJFddIFnDUUtnwE1e2B0 DVZwm5OeqbkcHZTpGLhaRKUe XGZzMjJcbGFuZzEwMzNcaGlj yPnjOpojHzIySEKqGRqdS6ln EwJaZrDcJhzzEDK8dZ== Gross assessment was [facility]'s performed at [facility], code = 2777) Department of Pathology, [address] [place] [address], [place] [address], Technical component [facility] [place]'s was performed at [facility], (test code = 2778) Department of Pathology, [address] [place] [id number], [facility]. ke's component was [facility], performed at (test Department of Pathology, code = 2779) [address] [place] [id number], [facility] [id number] 13:01:00Surgical Pathology Report Case: [id number] Authorizing Provider: Myrna Monsalve MD Collected: 05/27/2020 08:20 AM Ordering Location: [address] Received: 05/27/2020 02:50 PM SERVICE Pathologist: [...] ISLAS METAPLASIA Signing Pathologist Direct Phone Line: [phone] signed by Rosa Cisneros MD on 05/28/2020 at 1:01 PM.[id number] x2, [id number] A. Random gastric biopsy, rule out H. [...] evaluated Immunohistochemistry technical testing was performed at [facility], Pathology Laboratory where it was developed and [...] as qualified to perform highcomplexity clinical laboratory testing.[facility], Department of Pathology, [address] [place] [address], [facility], Department of[facility]ology, [address] [place] [address], [facility]ep[facility] of [facility]ology, [address] [place] [address], PDD W/PLT COUNT & AUTO [id number] 06:41:00 Test Item Value Reference Range Interpretation [...] CONCENTRATION Decreased (CELLAVISION)(BEAKER) (test code = 3438) Waiter/Waitress Third Class ID - Kaylee Martines comments: Slide comments:COMPREHENSIVE METABOLIC [id number] 05:00:00 Test Item Value Reference Range Interpretation [...] S NOT APPLICABLE FOR DIALYSIS PATIEN TS. Waiter/Waitress Third Class ID - BONILLA MBASIC METABOLIC [id number] 05:00:00 Test Item Value Reference Range Interpretation [...] S NOT APPLICABLE FOR DIALYSIS PATIEN TS. [id number] 04:45:00 Test Item Value Reference Range Interpretation Comments MAGNESIUM (BEAKER) (test code = 1.9 mg/dL 1.6-2.6 627) Waiter/Waitress Third Class ID - BONILLA EPATIC FUNCTION [id number] 04:45:00 Test Item Value Reference Range Interpretation [...] (test code = 9 U/L 6-55 347) Waiter/Waitress Third Class ID - BONILLA [id number] 04:33:00 Test Item Value Reference Range Interpretation Comments D-Dimer, Quant (test code 3.35 <0.50 MG/L FEU H = 34504-8) FANTA (test code = FANTA) Intended Use: [...] range. Lab Interpretation (test Abnormal code = 77811-3) [id number] 04:33:00 Test Item Value Reference Range Interpretation [...] exclusion of thrombosis is within 95-100% range. PT/[id number] 04:31:00 Test Item Value Reference Range Interpretation [...] detected HCV RNA not (test code = 54432-9) detected FANTA (test code = FANTA) This test uses a Real-Time Polymerase Chain Reaction (RT-PCR) methodology and was performed using BAIRON Ampliprep/BAIRON TaqMan HCV test kit version 2.0 ([employer]). Reportable range for this assay is 15 - 100,000,000 IU per mL (1.18 - 8.00 Log IU/mL). Lab Interpretation Normal (test code = 46298-8) [facility] PCR, [id number] 22:57:00 Test Item Value Reference Range Interpretation Comments HCV RESULT COMPONENT HCV RNA not detected HCV RNA not detected (BEAKER) (test code = 2699) This test uses a Real-Time Polymerase Chain Reaction (RT-PCR) methodology and was performed using BAIRON Ampliprep/BAIRON TaqMan HCV test kit version 2.0 ([employer]).Reportable range for this assay is 15 - 100,000,000 IU per mL (1.18 - 8.00 Log IU/mL).Manual [id number] 12:07:00 Test Item Value Reference Range Interpretation [...] few Lab Interpretation (test code = Abnormal 48544-8) [facility] W/PLT COUNT & AUTO [id number] 12:07:00 Test Item Value Reference Range Interpretation [...] code = 1+ few 477) BASIC METABOLIC [id number] 04:27:00 Test Item Value Reference Range Interpretation [...] S NOT APPLICABLE FOR DIALYSIS PATIEN TS. Waiter/Waitress Third Class ID - BONILLA [id number] 04:25:00 Test Item Value Reference Range Interpretation Comments MAGNESIUM (BEAKER) (test code = 2.0 mg/dL 1.6-2.6 627) Waiter/Waitress Third Class ID - BONILLA MHEPATIC FUNCTION [id number] 04:25:00 Test Item Value Reference Range Interpretation [...] (test code = 7 U/L 6-55 347) Waiter/Waitress Third Class ID - BONILLA MPT/[id number] 04:09:00 Test Item Value Reference Range Interpretation [...] Maddie Leon code = 2849) Bebeto Dsouza [facility] - PATHOLOGIST REVIEW 2020-05-26 14:31:00 Test Item Value Reference Range Interpretation Comments PERIPHERAL SMR Macrocytic anemia, REVIEW (BEAKER) 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 WBCs with mild left shift, including occasional myeloid precursors, no blasts seen. Few hypersegmented neutrophils. Thrombocytopenia with unremarkable morphology. [id number] Maddie Leon 2 (BEAKER) (test Bebeto Dsouza code = 2849) [id number] 13:50:00 Test Item Value Reference Range Interpretation [...] within 95-100% range.CBC W/PLT COUNT & AUTO [id number] 07:48:00 Test Item Value Reference Range Interpretation [...] CONCENTRATION Decreased (CELLAVISION)(BEAKER) (test code = 3438) Waiter/Waitress Third Class ID - Chris Mtz comments: Slide comments:COMPREHENSIVE METABOLIC [id number] 05:43:00 Test Item Value Reference Range Interpretation [...] S NOT APPLICABLE FOR DIALYSIS PATIEN TS. Waiter/Waitress Third Class ID - EDASIBASIC METABOLIC [id number] 05:38:00 Test Item Value Reference Range Interpretation [...] S NOT APPLICABLE FOR DIALYSIS PATIEN TS. [id number] 05:34:00 Test Item Value Reference Range Interpretation Comments PHOSPHORUS (BEAKER) (test code = 7.6 mg/dL 2.3-4.7 H 604) Waiter/Waitress Third Class ID - [id number] 05:34:00 Test Item Value Reference Range Interpretation Comments MAGNESIUM (BEAKER) (test code = 2.0 mg/dL 1.6-2.6 627) Waiter/Waitress Third Class ID - EDASIHEPATIC FUNCTION [id number] 05:34:00 Test Item Value Reference Range Interpretation [...] (test code = 6 U/L 6-55 347) Waiter/Waitress Third Class ID - EDASIPT/[id number] 04:50:00 Test Item Value Reference Range Interpretation [...] is2.5-3.5 for patients wiht mechanical heart valves.CALCIUM, [id number] 03:59:00 Test Item Value Reference Range Interpretation Comments CALCIUM IONIZED (BEAKER) (test 1.08 mmol/L 1.12-1.27 L code = 698) PH, BLOOD (BEAKER) (test code = 7.49 1810) TSH/Free T4 If [id number] 20:19:00 Test Item Value Reference Range Interpretation Comments TSH (test code = 3.581 0.350- 4.940 uIU/mL 86771-8) FANTA (test code = FANTA) Waiter/Waitress Third Class ID - ABBY F Lab Interpretation (test Normal code = 31438-1) [facility] HospitalTSH/FREE T4 IF [id number] 20:19:00 Test Item Value Reference Range Interpretation Comments THYROID STIMULATING HORMONE 3.581 uIU/mL 0.350-4.940 (BEAKER) (test code = 772) Waiter/Waitress Third Class ID - ABBY FHEMOGLOBIN AND [id number] 19:42:00 Test Item Value Reference Range Interpretation Comments HEMOGLOBIN (BEAKER) (test code = 9.0 GM/DL 13.7-17.5 L 410) HEMATOCRIT (BEAKER) (test code = 26.7 % 40.1-51.0 L 411) Waiter/Waitress Third Class ID - 6000CBC W/PLT COUNT & AUTO [id number] 14:10:00 Test Item Value Reference Range Interpretation [...] H PERCENT (BEAKER) (test code = 2801) [id number] 12:23:00 Test Item Value Reference Range Interpretation [...] 125-220 H FANTA (test code = FANTA) Waiter/Waitress Third Class EVELYNE Crump Lab Interpretation (test Abnormal code = 48121-6) [facility] HospitalLACT[facility] DEHYDROGENASE (LDH)2020-05-25 12:15:00 Test Item Value Reference Range Interpretation Comments LACTATE DEHYDROGENASE (BEAKER) (test 341 U/L 125-220 H code = 635) Waiter/Waitress Third Class ID - ABBY FProthrombin time/[id number] 12:13:00 Test Item Value Reference Range Interpretation [...] valves. Lab Interpretation Abnormal (test code = 70111-6) [facility] HospitalPROTHROMBIN TIME/[id number] 12:13:00 Test Item Value Reference Range Interpretation [...] for patients wiht mechanical heart valves.HEMOGLOBIN AND [id number] 12:01:00 Test Item Value Reference Range Interpretation Comments HEMOGLOBIN (BEAKER) (test code = 9.0 GM/DL 13.7-17.5 L 410) HEMATOCRIT (BEAKER) (test code = 27.0 % 40.1-51.0 L 411) Waiter/Waitress Third Class ID - 8700Mtrljlfqfjw0515-12-68 11:50:00 Test Item Value Reference Range Interpretation Comments Haptoglobin (test code = 172 mg/dL 14258 4542-7) FANTA (test code = FANTA) Waiter/Waitress Third Class ID - ABBY Crump Lab Interpretation (test Normal code = 80807-0) [facility] HospitalHAPTOGLOBIN2020-10-05 11:50:00 Test Item Value Reference Range Interpretation Comments HAPTOGLOBIN (ENRIQUE) (test code = 172 mg/dL 14258 366) Waiter/Waitress Third Class ID Joseph NORRIS F2D Echo W/Doppler(CW/PW/Color)2020-05-25 10:53:54 Ejection FractionSLEH ECHO HEARTLAB MKCKESSON CPACSInterface, External Ris In - 05/25/2020 10:54 AM CDTTransthoracic Echocardiography Report (TTE) Demographics Patient Name THIERRY PADILLA Date ofStudy 05/24/2020 KYLIE Gender Male Visit Number [id number] Race Unknown Room Number 7217 Number Date of 1965 Referring Physician Age55 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(s) 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 Owen Valdivia Interpreting Physician BEVERLEY Roche Procedure [...] LVOT CO: 5.41 l/min LVOT CI: 3.06 l/min/m^[address] [place], [place] [address]U/S, TESTICULAR (SCROTUM)2020-05-25 08:58:00Reason for exam:->rule out torsionFINAL [...] Signed: Roya Verde Verified Date/Time: 05/25/2020 08:58:57 [facility] CenterFerritin2020-10-05 08:16:00 Test Item Value Reference Range Interpretation Comments Ferritin (test code = 30870.32 ng/mL 5-275 H 2276-4) FANTA (test code = FANTA) Waiter/Waitress Third Class ID - EDASI Lab Interpretation (test Abnormal code = 26307-0) [facility] HospitalFERRITIN2020-10-05 08:16:00 Test Item Value Reference Range Interpretation Comments FERRITIN (BEAKER) (test code = 77491.32 ng/mL 5.00-275.00 H 361) Waiter/Waitress Third Class ID - EDASICBC W/PLT COUNT & AUTO [id number] 08:02:00 Test Item Value Reference Range Interpretation [...] CONCENTRATION Decreased (CELLAVISION)(BEAKER) (test code = 3438) Waiter/Waitress Third Class ID - Jonna Pascual comments: Slide comments:RAD, CHEST, 1 VIEW, NON [id number] 04:42:00Reason for exam:->pulmonary edemaShould this be performed [...] 04:42:11 XR chest 1 view portable / [id number] 04:42:00 Interface, External Ris In - 05/25/2020 4:44 AM CDTFINAL REPORT RAD, CHEST, 1 VIEW, NON DEPT INDICATION: pulmonary edema COMPARISON: Prior day's exam FINDINGS: Portable frontal view of the chest. IMPRESSION: Support Lines: Stable. Lungs and pleura: Unchanged venous congestion and interstitial opacities. No consolidation or effusion. No pneumothorax.Heart and mediastinum: Stable contours.Additional findings: None. Signed: Sally Renae Verified Date/Time: 05/25/2020 04:42:11 [facility] CenterIron, TIBC, % sat. (without ferritin)2020-05-25 04:31:00 Test Item Value Reference Range Interpretation Comments Iron (test code = 2498-4) 118.0 ug/dL 40-160 TIBC (test code = 2500-7) 170 ug/dL 250-450 L Iron % Saturation (test 69 % 20-55 H code = 2502-3) FANTA (test code = FANTA) Waiter/Waitress Third Class ID - EDASI Lab Interpretation (test Abnormal code = 00725-7) [facility] HospitalIRON, TIBC, % SAT. (WITHOUT FERRITIN)2020-05-25 04:31:00 Test Item Value Reference Range Interpretation Comments IRON (BEAKER) (test code = 547) 118.0 ug/dL 40.0-160.0 TOTAL IRON BINDING CAPACITY 170 ug/dL 250-450 L (BEAKER) (test code = 769) IRON % SATURATION (2) (BEAKER) 69 % 20-55 H (test code = 2590) Waiter/Waitress Third Class ID - EDASITroponin [id number] 04:23:00 Test Item Value Reference Range Interpretation Comments Troponin I (test code = 0.46 ng/mL 0-0.03 37771-8) FANTA (test code = FANTA) Troponin I [...] DB Lab Interpretation (test Abnormal code = 02932-0) [facility] HospitalTROPONIN [id number] 04:23:00 Test Item Value Reference Range Interpretation Comments TROPONIN I (BEAKER) (test code = 0.46 ng/mL 0.00-0.03 397) Troponin I (TnI) levels [...] failure, acidosis, acute neurological disease, and persistent tachyarrhythmia.Waiter/Waitress Third Class ID - [id number] 04:20:00 Test Item Value Reference Range Interpretation Comments PHOSPHORUS (BEAKER) (test code = 10.5 mg/dL 2.3-4.7 HH 604) Waiter/Waitress Third Class ID - DBCOMPREHENSIVE METABOLIC [id number] 04:19:00 Test Item Value Reference Range Interpretation [...] S NOT APPLICABLE FOR DIALYSIS PATIEN TS. Waiter/Waitress Third Class ID - [id number] 04:11:00 Test Item Value Reference Range Interpretation Comments MAGNESIUM (BEAKER) (test code = 2.0 mg/dL 1.6-2.6 627) Waiter/Waitress Third Class ID - DBHEPATIC FUNCTION [id number] 04:11:00 Test Item Value Reference Range Interpretation [...] (test code = 9 U/L 6-55 347) Waiter/Waitress Third Class ID - DBPT/[id number] 04:11:00 Test Item Value Reference Range Interpretation [...] is2.5-3.5 for patients wiht mechanical heart valves.Reticulocyte smhal4933-24-18 04:06:00 Test Item Value Reference Range Interpretation Comments % Retic (test code = 1.5 % 0.5-1.8 30011-9) FANTA (test code = FANTA) Waiter/Waitress Third Class ID - 6000 Lab Interpretation (test Normal code = 00177-6) [facility] HospitalRETICULOCYTE [id number] 04:06:00 Test Item Value Reference Range Interpretation Comments RETICULOCYTE COUNT PCT (BEAKER) (test 1.5 % 0.5-1.8 code = 575) Waiter/Waitress Third Class ID - 6000Lactic acid, [id number] 04:05:00 Test Item Value Reference Range Interpretation Comments Lactate, Venous (test code = 0.42 mmol/L 0.5-2.2 L 2872) FANTA (test code = FANTA) Waiter/Waitress Third Class ID - DB Lab Interpretation (test Abnormal code = 32656-6) [facility] HospitalLACTIC ACID, [id number] 04:05:00 Test Item Value Reference Range Interpretation Comments LACTATE BLOOD VENOUS (2) (BEAKER) 0.42 mmol/L 0.50-2.20 L (test code = 2872) Waiter/Waitress Third Class ID - DBCALCIUM, [id number] 04:03:00 Test Item Value Reference Range Interpretation Comments CALCIUM IONIZED (BEAKER) (test 1.02 mmol/L 1.12-1.27 L code = 698) PH, BLOOD (BEAKER) (test code = 7.44 1810) Hepatitis B surface [id number] 21:41:00 Test Item Value Reference Range Interpretation Comments HBsAg Screen (test code Nonreactive Nonreactive = 5195-3) FANTA (test code = FANTA) Specimen is considered negative for HBsAg. Lab Interpretation (test Normal code = 04768-7) [facility] HospitalHEPATITIS B SURFACE [id number] 21:41:00 Test Item Value Reference Range Interpretation Comments HEPATITIS B SURFACE ANTIGEN (2) Nonreactive Nonreactive (BEAKER) (test code = 2585) Specimen is considered negative for HBsAg.HEMOGLOBIN AND [id number] 20:59:00 Test Item Value Reference Range Interpretation Comments HEMOGLOBIN (BEAKER) (test code = 6.9 GM/DL 13.7-17.5 L 410) HEMATOCRIT (BEAKER) (test code = 20.8 % 40.1-51.0 L 411) Waiter/Waitress Third Class ID - 6000TROPONIN [id number] 18:22:00 Test Item Value Reference Range Interpretation [...] failure, acidosis, acute neurological disease, and persistent tachyarrhythmia.Waiter/Waitress Third Class ID - CECILIAGB-type Natriuretic Factor (BNP)2020-05-24 18:01:00 Test Item Value Reference Range Interpretation Comments BNP (test code = 95335-4) 202 pg/mL 0-100 H FANTA (test code = FANTA) Waiter/Waitress Third Class ID - CECILIAG Lab Interpretation (test Abnormal code = 77814-7) [facility] HospitalB-TYPE NATRIURETIC FACTOR (BNP)2020-05-24 18:01:00 Test Item Value Reference Range Interpretation Comments B-TYPE NATRIURETIC PEPTIDE (BEAKER) 202 pg/mL 0-100 H (test code = 700) Waiter/Waitress Third Class ID - CHANELLIV-1 Antigen with HIV-1/2 [id number] 13:43:00 Test Item Value Reference Range Interpretation Comments HIV-1 Antigen with HIV 1&2 Nonreactive Nonreactive Antibody (test code = 71467-0) Lab Interpretation (test code = Normal 54759-9) [facility] HospitalHIV-[facility] ANTIGEN WITH HIV-1/2 [id number] 13:43:00 Test Item Value Reference Range Interpretation Comments HIV-1 ANTIGEN WITH HIV 1\\T\\2 Nonreactive Nonreactive ANTIBODY (2) (BEAKER) (test code = 2586) TROPONIN [id number] 13:42:00 Test Item Value Reference Range Interpretation [...] failure, acidosis, acute neurological disease, and persistent tachyarrhythmia.Waiter/Waitress Third Class ID - CHERYLASIC METABOLIC [id number] 13:37:00 Test Item Value Reference Range Interpretation [...] S NOT APPLICABLE FOR DIALYSIS PATIEN TS. Waiter/Waitress Third Class ID - [id number] 13:10:00 Test Item Value Reference Range Interpretation Comments PHOSPHORUS (BEAKER) (test code = 6.3 mg/dL 2.3-4.7 H 604) Waiter/Waitress Third Class ID - ROSIANGHEMOGLOBIN AND [id number] 12:38:00 Test Item Value Reference Range Interpretation Comments HEMOGLOBIN (BEAKER) (test code = 7.7 GM/DL 13.7-17.5 L 410) HEMATOCRIT (BEAKER) (test code = 22.7 % 40.1-51.0 L 411) Waiter/Waitress Third Class ID - 6000Hemoglobin [id number] 09:17:00 Test Item Value Reference Range Interpretation Comments Hemoglobin A1C (test code = 4548-4) 5.8 % 4.3-6.1 Lab Interpretation (test code = Normal 69296-9) [facility] HospitalHEMOGLOBIN [id number] 09:17:00 Test Item Value Reference Range Interpretation Comments HEMOGLOBIN A1C (BEAKER) (test code = 5.8 % 4.3-6.1 368) TROPONIN [id number] 08:48:00 Test Item Value Reference Range Interpretation [...] failure, acidosis, acute neurological disease, and persistent tachyarrhythmia.Waiter/Waitress Third Class ID - ROSIANGBASIC METABOLIC [id number] 08:33:00 Test Item Value Reference Range Interpretation [...] S NOT APPLICABLE FOR DIALYSIS PATIEN TS. Waiter/Waitress Third Class ID - ROSIANGHEMOGLOBIN AND [id number] 08:12:00 Test Item Value Reference Range Interpretation Comments HEMOGLOBIN (BEAKER) (test code = 8.1 GM/DL 13.7-17.5 L 410) HEMATOCRIT (BEAKER) (test code = 23.5 % 40.1-51.0 L 411) Waiter/Waitress Third Class ID - 6000Vitamin B12 and Gekvcp4448-33-40 05:56:00 Test Item Value Reference Range Interpretation Comments Vitamin B12 (test code = 237 pg/mL 899-584 2850-9) Folate (test code = 4.00 ng/mL >=7.00 L 2284-8) FANTA (test code = FANTA) Waiter/Waitress Third Class ID - EDASI Lab Interpretation (test Abnormal code = 09890-4) [facility] HospitalVITAMIN B12 AND [id number] 05:56:00 Test Item Value Reference Range Interpretation Comments VITAMIN B12 (BEAKER) (test code = 237 pg/mL 213-816 774) FOLATE (BEAKER) (test code = 362) 4.00 ng/mL >=7.00 L Waiter/Waitress Third Class ID - EDASIBASIC METABOLIC [id number] 04:53:00 Test Item Value Reference Range Interpretation [...] S NOT APPLICABLE FOR DIALYSIS PATIEN TS. Waiter/Waitress Third Class ID - [id number] 04:52:00 Test Item Value Reference Range Interpretation Comments PHOSPHORUS (BEAKER) (test code = 13.6 mg/dL 2.3-4.7 HH 604) Waiter/Waitress Third Class ID - EDASICALCIUM, [id number] 04:49:00 Test Item Value Reference Range Interpretation Comments CALCIUM IONIZED (BEAKER) (test 0.96 mmol/L 1.12-1.27 L code = 698) PH, BLOOD (BEAKER) (test code = 7.23 1810) [id number] 04:42:00 Test Item Value Reference Range Interpretation Comments MAGNESIUM (BEAKER) (test code = 2.6 mg/dL 1.6-2.6 627) Waiter/Waitress Third Class ID - EDASIHEPATIC FUNCTION [id number] 04:42:00 Test Item Value Reference Range Interpretation [...] (test code = 12 U/L 6-55 347) Waiter/Waitress Third Class ID - EDASIPT/[id number] 04:41:00 Test Item Value Reference Range Interpretation [...] mechanical heart valves.CBC W/PLT COUNT & AUTO [id number] 04:37:00 Test Item Value Reference Range Interpretation [...] (BEAKER) (test code = 2801) LACTIC ACID, [id number] 04:29:00 Test Item Value Reference Range Interpretation Comments LACTATE BLOOD VENOUS (2) (BEAKER) 0.34 mmol/L 0.50-2.20 L (test code = 2872) Waiter/Waitress Third Class ID - MARYYen, [id number] 04:16:00 Test Item Value Reference Range Interpretation Comments ABO Grouping (test code = 2588) O Rh Factor (test code = 2589) POS [facility]Symptomatic ONLY)2020-05-24 04:13:00 Test Item Value Reference Range Interpretation Comments SARS-COV2/RT-PCR Negative Not Detected, (test code = Negative, See 01862-4) external report for linked test SARS-COV-2 [facility] PERFORMING LAB (test code = 24430-1) FANTA (test code = Negative results do [...] of the Act. Fact Sheet for Healthcare Providers:https://www.Jigsaw24/Documents/Xper t%20Xpress%20SARS%20CoV- 2/Fact%20Sheets/3023802 %00GVBQ-MEN-7%20HEALTHCA RE%20PROVIDERS%20FACT%20 SHEET.pdf Fact Sheet for Healthcare Patients:https://www.Ostrovok.BIOeCON/Documents/Xpert %20Xpress%20SARS%20CoV-2 /Fact%20Sheets/3023801% 98UBDM-BUR-8%20PATIENT%2 0FACT%20SHEET.pdf Performing Laboratory:[facility] [address] [facility] ([facility])2020-05-24 04:13:00 Test Item Value Reference Range Interpretation Comments SARS-COV2/RT-PCR (test code Negative Not Detected, Negative, = 6661570) See external report for linked test SARS-COV-2 PERFORMING LAB [facility] (test code = 8926790) Negative results do not preclude SARS-CoV-2 infection [...] of the Act.Fact Sheet for Healthcare Pro viders:https://www.Nukona.BIOeCON/Documents/Xpert%20Xpress%20SARS%20CoV-2/Fact%20Sh eets/302-8882%06QHBS-XUI-1%20HEALTHCARE%20PROVIDERS%20FACT%20SHEET.pdfFact Sheet for Healthcare Patients:https://www.MacroGenics/Documents/Xpert%20Xpress%20SARS%20CoV-2/Fact%20Sheets/302-6171%20SARS-COV -2%20PATIENT%20FACT%20SHEET.pdfPerforming Laboratory:[facility], [place] [address]IR/[id number] 03:29:00 Test Item Value Reference Range Interpretation [...] is2.5-3.5 for patients wiht mechanical heart valves.TROPONIN [id number] 02:23:00 Test Item Value Reference Range Interpretation [...] failure, acidosis, acute neurological disease, and persistent tachyarrhythmia.Waiter/Waitress Third Class ID - DEE DEE WBASIC METABOLIC [id number] 02:22:00 Test Item Value Reference Range Interpretation [...] S NOT APPLICABLE FOR DIALYSIS PATIEN TS. Waiter/Waitress Third Class ID - DEE DEE [id number] 02:21:00 Test Item Value Reference Range Interpretation Comments PHOSPHORUS (BEAKER) (test code = 14.1 mg/dL 2.3-4.7 HH 604) Waiter/Waitress Third Class ID - DEE DEE [id number] 02:16:00 Test Item Value Reference Range Interpretation Comments MAGNESIUM (BEAKER) (test code = 2.6 mg/dL 1.6-2.6 627) Waiter/Waitress Third Class ID - DEE DEE WHEPATIC FUNCTION [id number] 02:16:00 Test Item Value Reference Range Interpretation [...] (test code = 10 U/L 6-55 347) Waiter/Waitress Third Class ID Joseph FUNEZ WB-TYPE NATRIURETIC FACTOR (BNP)2020-05-24 02:12:00 Test Item Value Reference Range Interpretation Comments B-TYPE NATRIURETIC PEPTIDE (BEAKER) 459 pg/mL 0-100 H (test code = 700) Waiter/Waitress Third Class ID Joseph FUNEZ WCBC W/PLT COUNT & AUTO [id number] 02:11:00 Test Item Value Reference Range Interpretation [...] (BEAKER) (test code = 2801) LACTIC ACID, [id number] 02:03:00 Test Item Value Reference Range Interpretation Comments LACTATE BLOOD VENOUS (2) (BEAKER) 0.68 mmol/L 0.50-2.20 (test code = 2872) Waiter/Waitress Third Class ID - DEE DEE WSpecimen slightly lipemicRAD, [...] MDReport Verified Date/Time: 05/24/2020 01:55:13 Blood gas, [id number] 01:37:00 Test Item Value Reference Range Interpretation Comments pH, Duc (test code = 2746-6) 7.27 7.32-7.42 L pCO2, Duc (test code = 755) 26 41- 51 mmHg L pO2, Duc (test code = 2705-2) 63 25- 40 mmHg H O2 Sat, Duc (test code = 2711-0) 89.7 % 40-70 H HCO3, Duc (test code = 05857-0) 12 mmol/L 21-29 L Base Excess, Duc (test code = -14.0 mmol/L -2-3 L 1927-3) Patient Temperature (test code = 37.0 C 8310-5) FIO2 (test code = 1819) 100 % Lab Interpretation (test code = Abnormal 76608-1) [facility] HospitalBL[facility] G[facility], [id number] 01:37:00 Test Item Value Reference Range Interpretation [...] (BEAKER) (test code = [id number]) 100.0 % [id number] 00:00:00Ordered by an unspecified provider.[facility])2020-02-23 11:58:00 Test Item Value Reference Range Interpretation Comments SARS-COV2/RT-PCR (test code = Negative Not Detected, Negative [id number]) SARS-COV-2 PERFORMING LAB [facility] (test code = 5406161) Negative result for this test determines that [...] 564(g) of the Act.Fact Sheet for Healthcare Providers:https://www.[employer].BIOeCON/sites/default/files/product/documents/Fact_Shee f_OT_Afothpwpm_Zawc_BHOW-BqS-6.pdfFact Sheet for Healthcare Patients:https://www.[employer].BIOeCON/sites/default/files/product/ documents/Oblu_Rbbfl_Pngijurv_Wfrg_AJBG-MjB-2.pdfPerforming Laboratory:[facility] [place] [address]
[2020-07-01 10:37] LABS: Protime INR 1.07
[2020-07-01 10:47] LABS: Absolute Lymphocytes (CBC) 3.3 K/uL (0.7-4.9); Basophils % 0.8 % (0-1.3); Hematocrit 23.6 % (39.6-49.0); Lymphocytes % 16.5 % (15.3-44.8); MPV 7.8 fL (7.6-11.3); RBC Red Blood Cell Count 2.45 M/uL (4.33-5.43)
--- NOTE | 2020-07-01 11:03 | RAD REPORT ---
EXAM DESCRIPTION: RAD - Chest Single View - 07/01/2020 10:50 am CLINICAL HISTORY: shortness of breath Chest pain. COMPARISON: Chest Single View dated 06/21/2020; Chest Single View dated 06/19/2020; Chest Single View dated 06/17/2020; Chest Single View dated 05/23/2020 FINDINGS: Portable technique limits examination quality. Significant bilateral pulmonary opacities are present likely representing pulmonary edema. The heart is normal in size. Right-sided venous catheter its tip in the right atrium.
[2020-07-01 11:12] LABS: Anisocytosis SLIGHT; Blood Morphology Comment NOTED (NOT SEEN); Platelet Estimate DECR; Polychromasia SLIGHT
--- NOTE | 2020-07-01 11:12 | EDPHYS ---
Physician Documentation [facility] Name: Cr Orellana Age: 55 yrs Sex: Male : 1965 Arrival Date: 07/01/2020 Time: 09:54 Bed 8 Private MD: ED Physician Rei Miranda HPI: 07/01 10:25 This 55 yrs old Male presents to ER via EMS with complaints of Shortness Of jmm Breath, Fever. 10:25 The patient has shortness of breath at rest. Onset: The symptoms/episode began/occurred jmm gradually, today. Duration: The symptoms are continuous. The patient's shortness of breath is aggravated by nothing, is alleviated by nothing. Associated signs and symptoms: Pertinent positives: non-productive cough, fever. The patient has experienced similar episodes in the past. Historical: - Allergies: 10:29 No Known Allergies; ph - PMHx: 10:29 DIALYSIS MWF; Hypertension; seasonal allergies; ph - Immunization history:: Pneumococcal vaccine is up to date, Flu vaccine is up to date. ROS: 10:25 Eyes: Negative for injury, pain, redness, and discharge, ENT: Negative for injury, jmm pain, and discharge, Neck: Negative for injury, pain, and swelling. 10:25 Constitutional: Positive for body aches, chills. 10:25 All other systems are negative. Exam: 10:25 Head/Face: atraumatic. Eyes: EOMI, no conjunctival erythema appreciated ENT: Moist jmm Mucus Membranes Neck: Trachea midline, Supple Chest/axilla: Normal chest wall appearance and motion. 10:25 Abdomen/GI: Non distended, soft Back: Normal ROM Skin: General appearance color normal MS/ Extremity: Moves all extremities, no obvious deformities appreciated, no edema noted to the lower extremities Neuro: Awake and alert, normal gait Psych: Behavior is normal, Mood is normal, Patient is cooperative and pleasant 10:25 Constitutional: The patient appears alert, awake, anxious. 10:25 Cardiovascular: Rate: tachycardic, Rhythm: regular. 10:25 Respiratory: moderate respiratory distress is noted, Respirations: normal, Breath sounds: + upper airway congestion. Vital Signs: 09:55 BP 165 / 103; Pulse 108; Resp 18; Temp 101(O); Pulse Ox 86% on R/A; Weight 56.7 kg; zb 10:26 BP 172 / 110; Pulse 101; Resp 26; Temp 99.2(O); Pulse Ox 95% on 4 lpm NC; ph 11:24 BP 156 / 101; Pulse 99; Resp 26; Pulse Ox 96% on 4 lpm NC; ph 13:04 BP 161 / 94; Pulse 103; Resp 26; Pulse Ox 98% on 4 lpm NC; ph 14:00 BP 158 / 99; Pulse 101; Resp 22; Pulse Ox 98% on 2 lpm NC; ph 15:43 BP 169 / 93; Pulse 101; Resp 18; Pulse Ox 95% on 2 lpm NC; ph 16:52 BP 143 / 87; Pulse 111; Resp 18; Temp 98.7; Pulse Ox 96% on 2 lpm NC; ph 17:45 BP 148 / 97; Pulse 106; Resp 20; Temp 98.9; Pulse Ox 94% on 4 lpm NC; ph 17:45 pt asleep ph MDM: 09:58 Patient medically screened. [facility] 11:10 Data reviewed: vital signs, nurses notes. Counseling: I had a detailed discussion with shara the patient and/or guardian regarding: the historical points, exam findings, and any diagnostic results supporting the discharge/admit diagnosis, lab results, radiology results, the need for further work-up and treatment in the hospital. ED course: I discussed the patient with Dr. Jo whom accepted admission. . 07/01 10:03 Order name: Basic Metabolic Panel; Complete Time: 11:18 [facility] 07/01 10:03 Order name: CBC with Diff; Complete Time: :18 [facility] 07/01 10:03 Order name: LFT's; Complete Time: 11:18 [facility] 07/01 10:03 Order name: Magnesium; Complete Time: 11:18 [facility] 07/01 10:03 Order name: NT PRO-BNP; Complete Time: 11:18 [facility] 07/01 10:03 Order name: PT-INR; Complete Time: 10:43 [facility] 07/01 10:03 Order name: Troponin (emerg Dept Use Only); Complete Time: 11:18 [facility] 07/01 10:03 Order name: Procalcitonin; Complete Time: 11:28 [facility] 07/01 10:03 Order name: Lactate; Complete Time: 10:54 [facility] 07/01 10:03 Order name: Blood Culture Adult (2) [facility] 07/01 10:03 Order name: Flu; Complete Time: 14:10 [facility] 07/01 10:03 Order name: COVID-19 [facility] 07/01 10:51 Order name: Manual Differential; Complete Time: 11:18 [facility] 07/01 12:29 Order name: Urine Drug Screen 07/01 10:03 Order name: XRAY Chest (1 view); Complete Time: 11:05 [facility] 07/01 10:04 Order name: BIPAP [facility] 07/01 12:46 Order name: Urine Dipstick--Ancillary (enter results) 07/01 13:00 Order name: Urine Dipstick-Ancillary; Complete Time: 14:10 [facility] 07/01 13:12 Order name: Urine Drug Screen; Complete Time: 14:10 [facility] 07/01 14:23 Order name: Blood Culture [facility] 07/01 14:33 Order name: SARS-COV-2 RT PCR; Complete Time: 14:41 [facility] 07/01 15:25 Order name: RAD; Complete Time: 15:26 [facility] 07/01 16:02 Order name: Creatine Phosphokinase; Complete Time: 16:02 [facility] 07/01 16:02 Order name: CKMB Creatine Kinase MB; Complete Time: 16:02 [facility] 07/01 16:02 Order name: Troponin I; Complete Time: 16:02 [facility] 07/01 10:03 Order name: EKG; Complete Time: 10:03 [facility] 07/01 10:03 Order name: Cardiac monitoring; Complete Time: 10:30 [facility] 07/01 10:03 Order name: EKG - Nurse/Tech; Complete Time: 10:30 [facility] 07/01 10:03 Order name: IV Saline Lock; Complete Time: 10:30 [facility] 07/01 10:03 Order name: Labs collected and sent; Complete Time: 10:30 [facility] 07/01 10:03 Order name: O2 Per Protocol; Complete Time: 10:30 [facility] 07/01 10:03 Order name: O2 Sat Monitoring; Complete Time: 10:30 [facility] Administered Medications: 11:30 Drug: Cefepime 2 grams Route: IVPB; Rate: 200 ml/hr; Infused Over: 30 mins; Site: right ph hand; 11:35 Follow up: Response: No adverse reaction; IV Status: Completed infusion ph 12:15 Drug: Calcium Gluconate 1 grams Route: IVPB; Infused Over: 60 mins; Site: right hand; ph 13:15 Follow up: Response: No adverse reaction; IV Status: Completed infusion; IV Intake: ph 100ml 12:16 Drug: D50W 50 ml Route: IVP; Site: right hand; ph 16:57 Follow up: Response: No adverse reaction ph 12:17 Drug: Insulin Regular Human 10 units {Co-Signature: em (Flaquito Lovell RN).} Route: IVP; ph Site: right hand; 16:58 Follow up: Response: No adverse reaction ph 12:18 Drug: Albuterol 2.5 mg Route: Inhalation; ph 12:18 Drug: Kayexalate 60 grams Route: PO; ph 16:57 Follow up: Response: No adverse reaction ph 12:19 Drug: Albuterol 2.5 mg Route: Inhalation; ph 12:20 Drug: Albuterol 2.5 mg Route: Inhalation; ph 16:57 Follow up: Response: No adverse reaction ph 18:11 Not Given (Not given d/t pt receing hemodialysis, sent up w/ patient): vancoMYCIN 1 ph grams IVPB once over 2 hrs Disposition: 07/02 05:34 Co-signature as Attending Physician, Rei Miranda MD I agree with the assessment and buddy plan of care. Disposition: 07/01/20 11:11 Hospitalization ordered by Terence Jo for Inpatient Admission. Preliminary diagnosis are Pneumonia, Volume Overload, Fever, Hypoxia. - Bed requested for Intensive Care Unit. - Status is Inpatient Admission. ph - Condition is Stable. - Problem is new. - Symptoms are unchanged. Signatures: Dispatcher [employer] EDChelsea Zavala Corey, MD MD cha Mickail, Joel, PA PA Larissa Whitfield RN RN Flaquito Lovell RN em Corrections: (The following items were deleted from the chart) 07/01 13:40 11:11 Hospitalization Ordered by Terence Jo DO for Inpatient Admission. Preliminary bd diagnosis is Pneumonia; Volume Overload; Fever; Hypoxia. Bed requested for Telemetry/MedSurg (Inpatient). Status is Inpatient Admission. Condition is Stable. Problem is new. Symptoms are unchanged. jmm 14:51 13:40 07/01/2020 11:11 Hospitalization Ordered by Terence Jo DO for Inpatient bd Admission. Preliminary diagnosis is Pneumonia; Volume Overload; Fever; Hypoxia. Bed requested for [facility] ER HOLD. Status is Inpatient Admission. Condition is Stable. Problem is new. Symptoms are unchanged. bd 18:13 14:51 07/01/2020 11:11 Hospitalization Ordered by Terence Jo DO for Inpatient ph Admission. Preliminary diagnosis is Pneumonia; Volume Overload; Fever; Hypoxia. Bed requested for Intensive Care Unit. Status is Inpatient Admission. Condition is Stable. Problem is new. Symptoms are unchanged. bd
--- NOTE | 2020-07-01 11:12 | ER ---
Nurse's Notes [facility] Name: Cr Orellana Age: 55 yrs Sex: Male : 1965 Arrival Date: 07/01/2020 Time: 09:54 Bed 8 Private MD: Diagnosis: Pneumonia;Volume Overload;Fever;Hypoxia Presentation: 07/01 09:55 Chief complaint: EMS states: Pt c/o SOB, body aches, chest pain and fever. Reports that zb symptoms began yesterday, TMAX 101. Recently seen in ED and admitted for similar complaint, states that he was COVID negative at that time. Pt picked up at dialysis clinic, did not receive treatment. HR 102, Spo2 86% RA, placed on NRB, Spo2 improved to 100%. Coronavirus screen: Client denies travel out of the [place] in the last 14 days. chills, difficulty breathing, fever, muscle pain, shortness of breath, Client presents with at least one sign or symptom that may indicate coronavirus-19. Standard/surgical mask placed on the client. Provider contacted for isolation considerations. The client reports previous COVID testing was negative. Ebola Screen: No symptoms or risks identified at this time. Initial Sepsis Screen: Does the patient meet any 2 criteria? Temp <36.0*C (96.8*F)) or > 38.3*C (100.9*F). HR > 90 bpm. Yes Does the patient have a suspected source of infection? Yes: Productive cough/pneumonia. 09:55 Method Of Arrival: EMS: [facility] zb 09:58 Risk Assessment: Do you want to hurt yourself or someone else? Patient reports no zb desire to harm self or others. Onset of symptoms was July 01, 2020. 09:58 Acuity: HUYEN 2 zb Historical: - Allergies: 10:29 No Known Allergies; ph - PMHx: 10:29 DIALYSIS MWF; Hypertension; seasonal allergies; ph - Immunization history:: Pneumococcal vaccine is up to date, Flu vaccine is up to date. Screenin:28 Abuse screen: Denies threats or abuse. Denies injuries from another. Nutritional ph screening: No deficits noted. Tuberculosis screening: No symptoms or risk factors identified. Fall Risk None identified. Assessment: 10:00 General: Appears in no apparent distress. uncomfortable, Behavior is cooperative, ph anxious, Reports fever for 0-12 hours. Pain: Complains of pain in left upper thigh and left quadriceps. Neuro: Level of Consciousness is awake, alert, obeys commands, Oriented to person, place, time, situation. Cardiovascular: Reports chest pain, shortness of breath, Capillary refill < 3 seconds in bilateral fingers Patient's skin is warm and dry. Rhythm is sinus tachycardia. Respiratory: Reports shortness of breath at rest on exertion Airway is patent Respiratory effort is even, labored, Respiratory pattern is tachypnea Breath sounds are diminished bilaterally. GI: Abdomen is round Patient currently denies abdominal pain, diarrhea, nausea, vomiting. Derm: Skin is intact, Skin is pink, warm \T\ dry. 10:05 Reassessment: Code sepsis called overhead. ph 10:25 Reassessment: Patient appears in no apparent distress at this time. RT at bedside, pt ph placed on NC at 4L Spo2 97%. 11:22 Reassessment: Patient appears in no apparent distress at this time. Patient and/or ph family updated on plan of care and expected duration. Pain level reassessed. Pt appears more comfortable, NC in place, interventional radiology tech removed pt's boots, broken glass tube w/ sooty appearance found in boot, pt denies drug use, Dr Jo at bedside to speak w/ pt. 12:00 Reassessment: Patient appears in no apparent distress at this time. Patient and/or ph family updated on plan of care and expected duration. Pain level reassessed. 13:03 Reassessment: Patient appears in no apparent distress at this time. Patient and/or ph family updated on plan of care and expected duration. Pain level reassessed. Patient is alert, oriented x 3, equal unlabored respirations, skin warm/dry/pink. Dialysis at bedsdie. 14:00 Reassessment: Patient appears in no apparent distress at this time. No changes from previously documented assessment. Dialysis at bedside. 15:30 Reassessment: Patient appears in no apparent distress at this time. Patient and/or ph family updated on plan of care and expected duration. Pain level reassessed. Patient is alert, oriented x 3, equal unlabored respirations, skin warm/dry/pink. 16:51 Reassessment: Patient appears in no apparent distress at this time. Patient and/or ph family updated on plan of care and expected duration. Pain level reassessed. Patient is alert, oriented x 3, equal unlabored respirations, skin warm/dry/pink. Dialysis complete. Vital Signs: 09:55 BP 165 / 103; Pulse 108; Resp 18; Temp 101(O); Pulse Ox 86% on R/A; Weight 56.7 kg; zb 10:26 BP 172 / 110; Pulse 101; Resp 26; Temp 99.2(O); Pulse Ox 95% on 4 lpm NC; ph 11:24 BP 156 / 101; Pulse 99; Resp 26; Pulse Ox 96% on 4 lpm NC; ph 13:04 BP 161 / 94; Pulse 103; Resp 26; Pulse Ox 98% on 4 lpm NC; ph 14:00 BP 158 / 99; Pulse 101; Resp 22; Pulse Ox 98% on 2 lpm NC; ph 15:43 BP 169 / 93; Pulse 101; Resp 18; Pulse Ox 95% on 2 lpm NC; ph 16:52 BP 143 / 87; Pulse 111; Resp 18; Temp 98.7; Pulse Ox 96% on 2 lpm NC; ph 17:45 BP 148 / 97; Pulse 106; Resp 20; Temp 98.9; Pulse Ox 94% on 4 lpm NC; ph 17:45 pt asleep ph Vitals: 10:26 Cardiac Rhythm Assessment Sinus tach. ph ED Course: 09:54 Patient arrived in ED. zb 09:55 Juan Vidales PA is PHCP. jmm 09:55 Rei Miranda MD is Attending Physician. jmm 09:58 Triage completed. zb 10:25 Initial lab(s) drawn, by manager cath lab, sent to lab. Inserted saline lock: 22 gauge in right ph hand, using aseptic technique. 10:28 Arm band placed on right wrist. ph 10:35 Larissa Henriquez, JUAN DANIEL is Primary Nurse. ph 10:50 XRAY Chest (1 view) In Process Unspecified. EDMS 11:11 Terence Jo DO is Hospitalizing Provider. jmm 11:13 EKG done, by ED staff, reviewed by Juan HOPPER. dh3 11:23 Patient has correct armband on for positive identification. Placed in gown. Bed in low ph position. Call light in reach. Side rails up X2. quality assurance monitor on. Pulse ox on. NIBP on. Door closed. Noise minimized. 18:11 No provider procedures requiring assistance completed. Patient admitted, IV remains in ph place. Administered Medications: 11:30 Drug: Cefepime 2 grams Route: IVPB; Rate: 200 ml/hr; Infused Over: 30 mins; Site: right ph hand; 11:35 Follow up: Response: No adverse reaction; IV Status: Completed infusion ph 12:15 Drug: Calcium Gluconate 1 grams Route: IVPB; Infused Over: 60 mins; Site: right hand; ph 13:15 Follow up: Response: No adverse reaction; IV Status: Completed infusion; IV Intake: ph 100ml 12:16 Drug: D50W 50 ml Route: IVP; Site: right hand; ph 16:57 Follow up: Response: No adverse reaction ph 12:17 Drug: Insulin Regular Human 10 units {Co-Signature: em (Flaquito Lovell RN).} Route: IVP; ph Site: right hand; 16:58 Follow up: Response: No adverse reaction ph 12:18 Drug: Albuterol 2.5 mg Route: Inhalation; ph 12:18 Drug: Kayexalate 60 grams Route: PO; ph 16:57 Follow up: Response: No adverse reaction ph 12:19 Drug: Albuterol 2.5 mg Route: Inhalation; ph 12:20 Drug: Albuterol 2.5 mg Route: Inhalation; ph 16:57 Follow up: Response: No adverse reaction ph 18:11 Not Given (Not given d/t pt receing hemodialysis, sent up w/ patient): vancoMYCIN 1 ph grams IVPB once over 2 hrs Intake: 13:15 IV: 100ml; Total: 100ml. ph Outcome: 11:11 Decision to Hospitalize by Provider. vel 18:11 Admitted to Med/surg accompanied by nurse, via stretcher, room 1, with oxygen, with ph chart, Report called to Luh 18:11 Condition: stable 18:11 Instructed on the need for admit. 18:13 Patient left the ED. ph Signatures: Dispatcher [employer] EDMS Juan Vidales PA PA jmm Hall, Patricia, RN RN Radha Caceres [facility] Martha Campos RN RN zmj Lovell RN em Corrections: (The following items were deleted from the chart) 16:56 10:27 Reassessment: Code sepsis called overhead ph ph
[2020-07-01 11:13] LABS: Albumin 2.8 g/dL (3.4-5.0); Bilirubin Direct 0.1 mg/dL (0-0.2); Bilirubin Total 0.4 mg/dL (0.2-1.0); Magnesium 2.2 mg/dL (1.8-2.4); Protein, Total 7.1 g/dL (6.4-8.2); Troponin (Emerg Dept Use Only) 0.12 ng/mL (0.0-0.045)
[2020-07-01] MEDS ORDERED: CEFEPIME/SWI 2gm 2 GM/20 ML SYR IV ONE (11:15)
[2020-07-01] MEDS ORDERED: VANCOMYCIN/NS 1 gm 1 GM/250 ML BAG IVPB ONE (11:15)
--- NOTE | 2020-07-01 12:01 | P.HP ---
Certification for Inpatient Patient admitted to: Inpatient With expected LOS: >2 Midnights Patient will require the following post-hospital care: None Practitioner: I am a practitioner with admitting privileges, knowledge of patient current condition, hospital course, and medical plan of care. Services: Services provided to patient in accordance with Admission requirements found in Title 42 Section 412.3 of the Code of Federal Regulations Patient History Date of Service: 07/01/20 Primary Care Provider: none; Nephrology-Dr. Garcia; Pulmonary-Dr. Pizano Reason for admission: SOB History of Present Illness: 55-year-old male with history of hypertension, hyperlipidemia, end- stage renal disease on hemodialysis. Patient presented with increasing shortness of breath. Patient also had fever. This started 1 day ago. Patient was recently hospitalized for pulmonary edema. He was diuresed at that time and sent home actually on Levaquin. Unsure whether patient filled that medication. Patient denies any nausea, vomiting. No significant chest pain noted. Patient reports chronic pain. Mainly to the left hip region. He was further evaluated in the emergency room. In the ER patient evaluated. Patient febrile. Blood pressure 172/100. Respiratory rate of 26. Patient was hypoxic at 86% on room air. Patient now on oxygen and stable. White count 19, hemoglobin 7.8. Platelet count 112. 4 bands noted. Sodium 136, potassium 7.0. BUN of 61, creatinine 9.9 with a GFR 5. Lactic acid normal at 1.2. Pro calcitonin normal at 0.46. BNP greater than 13,000. Troponin 0.12. Chest x-ray showed bilateral infiltrate for suspicious for pulmonary edema versus pneumonia. Patient admitted for further evaluation. When I saw the patient ER, patient stable on oxygen. Patient had received antibiotic therapy. Patient is homeless. He denies any alcohol, tobacco or drug use. Allergies No Known Allergies Allergy (Unverified 02/22/20 16:32) Home medications list reviewed: Yes Home Medications: Amlodipine [Norvasc*] 10 mg PO DAILY #30 tab 03/03/20 Calcitrol [Rocaltrol*] 0.5 mcg PO DAILY #60 cap 03/03/20 Calcium Carbonate [Tums Regular*] 1,000 mg PO AC #90 tab 03/03/20 Carvedilol [Coreg] 25 mg PO BID #60 tablet 03/03/20 Cholecalciferol (Vitamin D3) [Vitamin D 5,000 IU Cap*] 10,000 unit PO DAILY #60 cap 03/03/20 Docusate [Colace Cap*] 100 mg PO BID #60 cap 03/03/20 Magnesium Oxide [Mag 0X*] 400 mg PO BEDTIME #30 tab 03/03/20 Pantoprazole [Protonix Tab*] 40 mg PO BID #60 tab 03/03/20 Tamsulosin [Flomax*] 0.4 mg PO BID #60 cap 03/03/20 Codeine/APAP [Tylenol W/Codeine #3 tab] 1 tab PO Q8HR PRN #10 tab 06/21/20 levoFLOXacin [Levaquin] 250 mg PO DAILY 5 Days #5 tab 06/21/20 - Past Medical/Surgical History Diabetic: No -: GERD -: Prior GI bleed -: ESRD on hemodialysis -: Anemia of chronic disease -: Hypertension -: Hyperlipidemia -: BPH -: pelvis sx 11 years ago Psychosocial/ Personal History: Patient is homeless. He does not have any fami ly members. - Family History Family History: Reviewed- Non-Contributory - Social History Smoking Status: Never smoker Alcohol use: No CD- Drugs: No Caffeine use: No Place of Residence: Homeless Review of Systems General: Weakness, As per HPI Eyes: Unremarkable ENT: Unremarkable Respiratory: Shortness of Breath, SOB with Excertion, As per HPI Cardiovascular: Unremarkable Gastrointestinal: Unremarkable Genitourinary: Unremarkable Musculoskeletal: Leg Pain, As per HPI Neurological: Unremarkable Lymphatics: Unremarkable Physical Examination - Physical Exam General: Alert, In no apparent distress, Oriented x3, Cooperative, Mild distress HEENT: Atraumatic, Mucous membr. moist/pink Neck: Supple Respiratory: Crackles/rales (Crackles to the bases) Cardiovascular: Normal pulses, Regular rate/rhythm Gastrointestinal: Normal bowel sounds, Soft and benign, Non-distended, No tenderness, No masses, No rebound, No guarding Musculoskeletal: No erythema, No warmth, Other (Some pain noted to the left hip) Integumentary: No tenderness/swelling, No erythema, No warmth, No cyanosis Neurological: Normal speech, Normal strength at 5/5 x4 extr, Normal tone, Normal affect - Studies Laboratory Data (last 24 hrs) 07/01/20 10:16: PT 12.6 H, INR 1.07 07/01/20 10:16: WBC 19.9 H D, Hgb 7.8 L*, Hct 23.6 L, Plt Count 112 L 07/01/20 10:16: Sodium 136, Potassium 7.0 H*, BUN 61 H D, Creatinine 9.91 H* D, Glucose 111 H, Magnesium 2.2, Total Bilirubin 0.4, AST 33, ALT 13, Alkaline Phosphatase 77 Assessment and Plan - Plan Impression: Dyspnea secondary to acute on chronic respiratory failure with hypoxia secondary to pulmonary edema complicated with bilateral pneumonia End-stage renal disease on hemodialysis with hyperkalemia Anemia chronic disease Hypertension Hyperlipidemia Left hip pain Plan: Dyspnea secondary to acute on chronic respiratory failure with hypoxia secondary to pulmonary edema complicated with bilateral pneumonia: Patient will be admitted for further evaluation and treatment. Blood, sputum cultures to be obtained. Will also evaluate for COVID and influenza. Patient given cefepime and vancomycin. Will continue with this regimen. Hyperkalemia cocktail will be given in the emergency room. Case discussed in detail with pulmonology who agrees with plan of care. Maintain oxygen above 90%. Case also discussed in detail with nephrology who agrees with hyperkalemia cocktail. Nephrology will make arrangements for dialysis now. Will need to review and restart home medication. Will monitor closely. Respiratory, pharmacy consulted. Will provide DVT prophylaxis-heparin. Continue monitor closely for any changes. End-stage renal disease on hemodialysis with hyperkalemia: Hyperkalemia cocktail given in the emergency room. Spoke with nephrology who has ordered dialysis now. Anemia chronic disease: Will monitor this closely. Patient may require blood transfusion if hemoglobin below 7.0. Hypertension: Continue with home medication Hyperlipidemia: Continue with home medication. Left hip pain: Will check x-ray. Will provide medication for pain. Discharge Plan: Home Plan to discharge in: Greater than 2 days - Advance Directives Does patient have a Living Will: No Does patient have a Durable POA for Healthcare: No - Code Status/Comfort Care Code Status Assessed: Yes (Patient is full code) Time Spent Managing Pts Care (In Minutes): 55
[2020-07-01] MEDS ORDERED: INSULIN -REGULAR HUMAN 50 UNIT/0.5 ML ML ONE (12:05)
[2020-07-01] MEDS ORDERED: ALBUTEROL 2.5 MG/3 ML NEB SOL ONE (12:05)
[2020-07-01] MEDS ORDERED: D50W 25 GM/50 ML SYRINGE IV ONE (12:06)
[2020-07-01] MEDS ORDERED: CALCIUM GLUCONATE 1 GM IVPB 1 GM/50 ML BAG IV ONE (12:06)
[2020-07-01] MEDS ORDERED: SOD POLYSTYREN SUL 15 GM/60 ML UCUP ONE (12:06)
[2020-07-01 13:00] LABS: Urine Blood TRACE (NEG); Urine Glucose TRACE (NEG); Urine Protein 2+ (NEG); Urine pH 8.5 (5.0-7.0)
[2020-07-01 13:12] LABS: Barbiturates NEGATIVE (NEGATIVE); Benzodiazepines NEGATIVE (NEGATIVE); Cocaine POSITIVE (NEGATIVE); METHAMPHETAM NEGATIVE (NEGATIVE); Methadone NEGATIVE (NEGATIVE); Opiates NEGATIVE (NEGATIVE); Phencyclidine NEGATIVE (NEGATIVE); THC Cannibis NEGATIVE (NEGATIVE)
[2020-07-01] MEDS ORDERED: ONDANSETRON 4 MG/2 ML VIAL IV PRN (14:14)
[2020-07-01] MEDS ORDERED: ACETAMINOPHEN 500 MG TAB PO PRN (14:14)
[2020-07-01] MEDS ORDERED: ALBUTEROL 2.5 MG/3 ML NEB SOL NEB PRN ×2 (14:14→16:00)
[2020-07-01] MEDS ORDERED: IPRATROPIUM BROM 0.5MG/2.5ML NEB PRN ×2 (14:14→16:00)
[2020-07-01] MEDS ORDERED: HYDRALAZINE HCL 20 MG/ML VIAL IV PRN (14:14)
[2020-07-01] MEDS: HYDROCODONE/APAP 7.5/325 MG TAB PO PRN ×2 (14:30→20:20)
[2020-07-01] MEDS ORDERED: VANCOMYCIN 500 MG in NA CHLORIDE 0.9% 100 ML IVPB SCH (15:00)
--- NOTE | 2020-07-01 15:23 | RAD REPORT ---
EXAM DESCRIPTION: RAD - Hip Left 2 View - 07/01/2020 3:05 pm CLINICAL HISTORY: left hip pain COMPARISON: Hip Left 2 View dated 06/18/2020 FINDINGS: AP and frogleg views of the left hip were obtained. There is no fracture or dislocation. No acute or destructive bony process seen. No significant degen erative change at the hip joint. Femoral head maintains smooth rounded contour. No acute findings see n in the left hemipelvis. Pubic symphysis degenerative change matches comparison. No soft tissue abnormality. IMPRESSION: Negative left hip examination for acute or significant findings. No significant change from the June 18 short interval study.
--- NOTE | 2020-07-01 15:27 | CON ---
Date of Consultation: 07/01/2020 Reason For Consult: Hyperkalemia in the setting of ESRD. History Of Present Illness: Mr. Orellana is a 55-year-old homeless male with past medical history sign ificant for ESRD on dialysis, hypertension, presented to [facility] after he was se nt over from the dialysis unit because of fever and possibly some altered mental status. The patient was just discharged after he was admitted for pulmonary edema and diuresed in the hospital. He was discharged actually on Levaquin. The patient is being admitted for further evaluation. He was found to have severe hyperkalemia and hence, Nephrology is being consulted for emergent dialysis at this t bruce. The patient was seen and examined at bedside. Past Medical History: Significant for history of hypertension, secondary hyperparathyroidism, histor y of anemia secondary to ESRD incarcerated, GERD, history of GI bleed, pelvic surgery 11 years ago. Family History: Noncontributory. Review of Systems: Positive for pain in his back. All other review of systems are negative. Physical Examination: Vital Signs: At this time showing temperature of 101.1. General: He appears in no acute distress. HEENT: Shows atraumatic head. Lungs: Auscultation of the lungs revealed diminished breath sounds at bilateral bases. Heart: Auscultation of the heart revealed mild tachycardia, but seems to be in sinus rhythm. Extremities: Showed no evidence of edema. Laboratory Data: Showing severe hyperkalemia with a potassium of 7 and other labs consistent with ES RD. CBC showing WBC count of 19,000, hemoglobin of 7.8, hematocrit of 23.6, and platelet count of 11 2. Current Medications: Have been reviewed in detail. Impression: 1.End-stage renal disease, on dialysis. 2.Severe hyperkalemia. 3.Fever, need to rule out COVID. The patient is also being started on vancomycin and cefepime for p ossible pneumonia with severe leukocytosis. He was just recently treated with IV antibiotics. Will possibly need further evaluation. 4.Anemia secondary to end-stage renal disease. We will give him a dosage of Epogen. 5.Hypertension, currently stable. Plan: Overall, the patient is doing okay at this time. We will need further evaluation for his feve r and will be admitted to the hospital and we will follow up closely. He is being emergently dialyze d for his hyperkalemia and volume control. VV/MODL Voice ID: [id number] Report ID: [id number]
[2020-07-01] MEDS ORDERED: HEPARIN 5000 UNIT/ML 1 ML VIAL ONE (15:41)
[2020-07-01 16:01] LABS: CKMB Creatine Kinase MB 1.5 ng/mL (0.3-3.6); Troponin I 0.14 ng/mL (0.0-0.045)
--- NOTE | 2020-07-01 18:04 | EKG ---
Test Date: 2020-07-01 Test Time: 11:08:00 Priming Mixture Carrier: DOMINICK MEASUREMENT RESULTS: Intervals: Rate: 97 NC: 120 QRSD: 72 QT: 326 QTc: 414 [place]: P: 31 NC: 120 QRS: -29 T: 65 INTERPRETIVE STATEMENTS: Sinus rhythm with premature atrial complexes with aberrant conduction Otherwise normal ECG Compared to ECG 06/17/2020 08:24:45 Atrial premature complex(es) now present Aberrant conduction of supraventricular beat(s) now present Sinus tachycardia no longer present Electronically Signed On 07-01-20 18:02:34 DIALYSIS REGISTERED NURSE by Thaddeus Llanes
[2020-07-01] MEDS: CALCIUM CARBONATE CHEW 500MG TAB PO SCH (18:21)
[2020-07-01] MEDS: TAMSULOSIN 0.4 MG SR CAP PO SCH (20:20)
[2020-07-01] MEDS: HEPARIN 5000 UNIT/ML 1 ML VIAL SQ SCH (20:21)
[2020-07-01 23:02] LABS: C-Reactive Protein 33.5 mg/L (<3.00); Ferritin 5650.9 ng/mL (26-388)
[2020-07-01 23:46] LABS: Troponin I 0.13 ng/mL (0.0-0.045)
[2020-07-02] MEDS: HYDROCODONE/APAP 7.5/325 MG TAB PO PRN ×3 (03:09→15:28)
[2020-07-02 05:22] LABS: Absolute Lymphocytes (CBC) 2.1 K/uL (0.7-4.9); Basophils % 0.6 % (0-1.3); Hematocrit 21.5 % (39.6-49.0); Lymphocytes % 16.5 % (15.3-44.8); MPV 7.6 fL (7.6-11.3); RBC Red Blood Cell Count 2.24 M/uL (4.33-5.43)
[2020-07-02 05:57] LABS: C-Reactive Protein 42.7 mg/L (<3.00); Ferritin 5493.7 ng/mL (26-388); Magnesium 2.1 mg/dL (1.8-2.4); Potassium 4.5 mmol/L (3.5-5.1)
[2020-07-02] MEDS: PANTOPRAZOLE 40MG TABLET PO SCH (06:03)
[2020-07-02] MEDS: CALCIUM CARBONATE CHEW 500MG TAB PO SCH ×3 (07:54→16:45)
[2020-07-02] MEDS: SEVELAMER CARBONATE 800 MG TABLET PO SCH ×3 (07:55→16:45)
--- NOTE | 2020-07-02 08:36 | RAD REPORT ---
EXAM DESCRIPTION: RAD - Chest Single View - 07/02/2020 6:30 am CLINICAL HISTORY: PNUEMONIA FOLLOW UP Chest pain. COMPARISON: Chest Single View dated 07/01/2020; Chest Single View dated 06/21/2020; Chest Single View dated 06/19/2020; Chest Single View dated 06/17/2020 FINDINGS: Portable technique limits examination quality. Moderate improvement is seen in bilateral pulmonary opacities since the comparative study. The heart is normal in size. Right-sided venous catheter is in place with tip in the SVC.
--- NOTE | 2020-07-02 08:38 | P.PN ---
Subjective Date of Service: 07/02/20 Primary Care Provider: none; Nephrology-Dr. Garcia; Pulmonary-Dr. Pizano Chief Complaint: SOB Subjective: Improving, Other (Patient appears much improved. Still with fatigue. Blood pressure elevated. Patient on 1 L per nasal cannula. Patient received dialysis yesterday.) Physical Examination - Vital Signs Temperature: 98.7 F Blood Pressure: 154/98 Pulse: 101 Respirations: 17 Pulse Ox (%): 95 - Physical Exam General: Alert, In no apparent distress, Oriented x3, Cooperative HEENT: Atraumatic Neck: Supple Respiratory: Crackles/rales (Bilateral) Cardiovascular: Regular rate/rhythm Gastrointestinal: Normal bowel sounds, Soft and benign, No masses, No rebound, No guarding Musculoskeletal: No erythema, No tenderness, No warmth Integumentary: No erythema, No warmth, No cyanosis Neurological: Normal speech, Normal strength at 5/5 x4 extr, Normal tone, Normal affect, Other (Patient appears disheveled) - Studies Laboratory Data (last 24 hrs) 07/01/20 10:16: PT 12.6 H, INR 1.07 07/01/20 10:16: WBC 19.9 H D, Hgb 7.8 L*, Hct 23.6 L, Plt Count 112 L 07/01/20 10:16: Sodium 136, Potassium 7.0 H*, BUN 61 H D, Creatinine 9.91 H* D, Glucose 111 H, Magnesium 2.2, Total Bilirubin 0.4, AST 33, ALT 13, Alkaline Phosphatase 77 Medications List Reviewed: Yes Assessment & Plan Discharge Plan: Home Plan to discharge in: 48 Hours Physician Review Additional Text: Impression: Dyspnea secondary to acute on chronic respiratory failure with hypoxia secondary to pulmonary edema complicated with bilateral COVID 19 pneumonia End-stage renal disease on hemodialysis with hyperkalemia Anemia chronic disease Hypertension Hyperlipidemia Cocaine abuse Left hip pain Plan: Dyspnea secondary to acute on chronic respiratory failure with hypoxia secondary to pulmonary edema complicated with bilateral COVID 19 pneumonia: COVID 19 test was positive. The patient was started on IV Solu-Medrol. Continue with supplementation including thiamine, zinc and vitamin-C. Case discussed with pulmonology. Discontinue vancomycin. Will cover with broad-spectrum antibiotic therapy for opportunistic infection. Continue to wean off oxygen. Continue to monitor inflammatory markers. Will adjust IV steroids to oral once CRP and ferritin improved. Patient received dialysis yesterday with improvement. Will continue to monitor closely. Patient also with anemia. Will monitor hemoglobin. Patient on Epogen. Patient may require transfusion if hemoglobin below 7.0. Will discuss with pulmonology and nephrology. Cocaine cessation addressed in detail. Continue to monitor closely. Wean off oxygen. Patient on DVT prophylaxis. Anticipate improvement over the next several days. Patient lives with a friend. End-stage renal disease on hemodialysis with hyperkalemia: Hyperkalemia resolved. Patient did receive dialysis yesterday. Continue with dialysis as directed by nephrology. Anemia chronic disease: Patient on Epogen. Will monitor this closely. Recheck hemoglobin later today. Patient may require blood transfusion if hemoglobin below 7.0. Hypertension: Medications reviewed. Restart carvedilol. Patient remains on Norvasc and Cardura. Will continue to adjust medication Hyperlipidemia: Continue with home medication. Cocaine abuse: Cessation addressed in detail. Left hip pain: X-ray unremarkable. Will provide medication for pain. BPH: Continue home medication Time Spent Managing Pts Care (In Minutes): 55
[2020-07-02] MEDS: HEPARIN 5000 UNIT/ML 1 ML VIAL SQ SCH ×2 (08:45→20:22)
[2020-07-02] MEDS: carvediloL 25 MG TAB PO SCH ×2 (08:46→20:22)
[2020-07-02] MEDS: CALCITROL 0.25 MCG CAP PO SCH (08:46)
[2020-07-02] MEDS: THIAMINE HCL 100 MG TABLET PO SCH (08:46)
[2020-07-02] MEDS: ASCORBIC ACID 500 MG TABLET PO SCH (08:46)
[2020-07-02] MEDS: FOLIC ACID 1 MG TABLET PO SCH (08:46)
[2020-07-02] MEDS: VITAMIN D 5,000 UNIT CAP PO SCH (08:46)
[2020-07-02] MEDS: AMLODIPINE 10 MG TAB PO SCH (08:47)
[2020-07-02] MEDS: CYANOCOBALAMIN 1,000 MCG TAB PO SCH (08:47)
[2020-07-02] MEDS: CEFEPIME/SWI 1gm 10 ML IV SCH (08:50)
[2020-07-02] MEDS: METHYLPREDNISOLONE 125 MG INJ IV SCH ×2 (08:52→20:22)
[2020-07-02] MEDS: ZINC SULFATE 220 MG CAP PO SCH (08:53)
[2020-07-02] MEDS ORDERED: VANCOMYCIN 1 GM in NA CHLORIDE 0.9% 500 ML IVPB SCH (09:00)
[2020-07-02] MEDS ORDERED: CEFEPIME 1 GM/VIAL IV SCH (09:00)
[2020-07-02] MEDS ORDERED: METHYLPREDNISOLONE 125 MG INJ IV SCH ×3 (09:00)
[2020-07-02 13:32] LABS: Hematocrit 22.5 % (39.6-49.0)
--- NOTE | 2020-07-02 16:13 | P.CNS ---
Date of Consult: 07/02/20 Primary Care Provider: none; Nephrology-Dr. Garcia; Pulmonary-Dr. Pizano Chief Complaint: SOB History of Present Illness: Pt is 55 yrs of age Aw respiratory distress. respdonded well to dialysis. Recurrent admission./ Developed a fever. pos. for COVID . Doign well now, CXRy has significantly improved Allergies No Known Allergies Allergy (Unverified 02/22/20 16:32) Home Medications: Calcium Carbonate [Tums Regular*] 1,000 mg PO AC #90 tab 03/03/20 Carvedilol [Coreg] 25 mg PO BID #60 tablet 03/03/20 Atorvastatin Calcium [Lipitor*] 20 mg PO BEDTIME 07/01/20 Codeine/APAP [Tylenol W/Codeine #3 tab] 1 tab PO Q6HR 07/01/20 Cyanocobalamin (Vitamin B-12) [Vitamin B12] 1,000 mcg PO DAILY 07/01/20 Doxazosin [Cardura*] 2 mg PO BEDTIME 07/01/20 Folic Acid 1 mg PO DAILY 07/01/20 Gabapentin 300 mg PO BID 07/01/20 Omeprazole [Prilosec] 40 mg PO DAILY 07/01/20 Pantoprazole [Protonix Tab*] 40 mg PO DAILY 07/01/20 Sevelamer Carbonate 800 mg PO TID 07/01/20 - Past Medical/Surgical History Diabetic: No -: GERD -: Prior GI bleed -: ESRD on hemodialysis -: Anemia of chronic disease -: Hypertension -: Hyperlipidemia -: BPH -: pelvis sx 11 years ago Psychosocial/ Personal History: Patient is homeless. He does not have any family members. - Social History Smoking Status: Current some day smoker Alcohol use: No CD- Drugs: No Caffeine use: No Place of Residence: Homeless Review of Systems 10-point ROS is otherwise unremarkable General: Weakness Respiratory: Shortness of Breath Physical Examination Temp Pulse Resp BP Pulse Ox 98.7 F 89 21 H 138/86 95 07/02/20 08:38 07/02/20 14:00 07/02/20 15:28 07/02/20 14:00 07/02/20 15:28 General: Alert, Oriented x3 Respiratory: Clear to auscultation bilaterally Cardiovascular: No edema, Regular rate/rhythm, Normal S1 S2 Gastrointestinal: Normal bowel sounds - Problems (1) Respiratory distress Current Visit: No Status: Acute Plan: Aw resp distress from volume overload. ESRD on dialysis. CXRY has improved significantly. Doubt covid pneumonia. WBC elevated. can change to Po Levaqin and low dose pred. O2 satisfactory.Cocoaine postive. COVId pos. Afebrile now
[2020-07-02] MEDS: TAMSULOSIN 0.4 MG SR CAP PO SCH (20:22)
[2020-07-02] MEDS: DOXAZOSIN 2 MG TAB PO SCH (20:22)
--- NOTE | 2020-07-02 20:30 | P.PN ---
Date of Service: 07/02/20 Vital Signs Temp Pulse Resp BP Pulse Ox 98.3 F 96 H 19 155/98 H 94 07/02/20 16:00 07/02/20 18:00 07/02/20 18:00 07/02/20 18:00 07/02/20 18:00 Medications Acetaminophen (Tylenol -Extra Strength) 500 mg PO Q4HP PRN PRN Reason: TEMP > 101' F Stop: 07/31/20 14:15 Hydrocodone Bitart/Acetaminophen ([place] 7.5/325 Mg) 1 tab PO Q6H PRN PRN Reason: Pain scale 5-7 (Moderate) Stop: 07/31/20 14:15 Last Admin: 07/02/20 15:28 Dose: 1 tab Documented by: Albuterol Sulfate (Proventil 0.083% Neb Soln) 2.5 mg NEB [id number] PRN PRN Reason: SHORTNESS OF BREATH Stop: 07/31/20 14:15 Amlodipine Besylate (Norvasc) 10 mg PO DAILY [facility] Stop: 08/01/20 09:01 Last Admin: 07/02/20 08:47 Dose: 10 mg Documented by: Ascorbic Acid (Vitamin C) 500 mg PO DAILY [facility] Stop: 08/01/20 09:01 Last Admin: 07/02/20 08:46 Dose: 500 mg Documented by: Calcitriol (Rocaltrol) 0.5 mcg PO DAILY [facility] Stop: 08/01/20 09:01 Last Admin: 07/02/20 08:46 Dose: 0.5 mcg Documented by: Calcium Carbonate/Glycine (Tums Regular) 1,000 mg PO AC [facility] Stop: 07/31/20 16:31 Last Admin: 07/02/20 16:45 Dose: 1,000 mg Documented by: Carvedilol (Coreg) 25 mg PO BID [facility] Stop: 08/01/20 09:01 Last Admin: 07/02/20 08:46 Dose: 25 mg Documented by: Cholecalciferol (Vitamin D 5,000 Iu Cap) 5,000 unit PO DAILY [facility] Stop: 08/01/20 09:01 Last Admin: 07/02/20 08:46 Dose: 5,000 unit Documented by: Cyanocobalamin (Vitamin B-12) 1,000 mcg PO DAILY [facility] Stop: 08/01/20 09:01 Last Admin: 07/02/20 08:47 Dose: 1,000 mcg Documented by: Doxazosin Mesylate (Cardura) 2 mg PO BEDTIME [facility] Stop: 08/01/20 21:01 Epoetin Harpreet (Retacrit) 10,000 unit IV EVERY HD [facility] Stop: 07/31/20 14:31 Folic Acid (Folic Acid) 1 mg PO DAILY [facility] Stop: 08/01/20 09:01 Last Admin: 07/02/20 08:46 Dose: 1 mg Documented by: Heparin Sodium (Porcine) (Heparin 5,000 Units/Ml) 5,000 unit SQ Q12HR [facility] Stop: 07/31/20 21:01 Last Admin: 07/02/20 08:45 Dose: 5,000 unit Documented by: Heparin Sodium (Porcine) (Heparin 1,000 Units/Ml) 4,000 unit IV EVERY HD PRN PRN Reason: dialys Last Admin: 07/01/20 16:48 Dose: 4,000 unit Documented by: Hydralazine HCl (Apresoline) 10 mg IV Q6HP PRN PRN Reason: Titrate to SBP (MUST DEFINE) Stop: 07/31/20 14:15 Cefepime HCl (Maxipime 1 Gm/10 Ml Ivp) 10 mls @ 200 mls/hr IV DAILY [facility] Stop: 08/01/20 09:01 Last Admin: 07/02/20 08:50 Dose: 10 mls Documented by: Ipratropium [place] (Atrovent Neb) 0.5 mg NEB [id number] PRN PRN Reason: SHORTNESS OF BREATH Stop: 07/31/20 14:15 Methylprednisolone Sodium Succinate (Solu-Medrol) 80 mg IV BID [facility] Stop: 08/01/20 09:01 Last Admin: 07/02/20 08:52 Dose: 80 mg Documented by: Ondansetron HCl (Zofran) 4 mg IV Q6HP PRN PRN Reason: NAUSEA / VOMITING Stop: 07/31/20 14:15 Pantoprazole Sodium (Protonix Tab) 40 mg PO DAILYAC [facility]; Protocol Stop: 08/01/20 06:31 Last Admin: 07/02/20 06:03 Dose: 40 mg Documented by: Sevelamer Carbonate (Renvela) 800 mg PO TIDWM [facility] Stop: 12/12/20 08:01 Last Admin: 07/02/20 16:45 Dose: 800 mg Documented by: Sodium Chloride (Normal Saline Flush) 10 ml IV BID [facility] Stop: 07/31/20 21:01 Last Admin: 07/02/20 08:45 Dose: 10 ml Documented by: Tamsulosin HCl (Flomax) 0.4 mg PO BEDTIME [facility] Stop: 07/31/20 21:01 Last Admin: 07/01/20 20:20 Dose: 0.4 mg Documented by: Thiamine HCl (Vitamin B-1) 100 mg PO DAILY [facility] Stop: 08/01/20 09:01 Last Admin: 07/02/20 08:46 Dose: 100 mg Documented by: Zinc Sulfate (Zinc Sulfate) 220 mg PO DAILY [facility] Stop: 08/01/20 09:01 Last Admin: 07/02/20 08:53 Dose: 220 mg Documented by: Microbiology Results 07/01/20 10:29 Blood - Blood Aerobic Blood Culture - Preliminary No growth in 24 hours. 07/01/20 10:29 Blood - Blood Anaerobic Blood Culture - Preliminary No growth in 24 hours. 07/01/20 10:16 Blood - Blood Aerobic Blood Culture - Preliminary No growth in 24 hours. 07/01/20 10:16 Blood - Blood Anaerobic Blood Culture - Preliminary No growth in 24 hours. Assessment/ Plan: Nephrology CPS stable without CP. +Dyspnea. Weakness, malaise and fatigue No acute events overnight. Vitals, medications, blood work and imaging reviewed in the chart. NAD. MMM. Neck supple. Basilar rales. RRR. Soft Abd. No C/C/E. No rash. AAO. Normal Speech. A/ ESRD on HD HTN with CKD/ CHF Diastolic CHF, A/C Acute respiratory failure DM II with CKD Anemia in CKD MIAH/ Secondary HyperPTH COVID19 P/ Continue current POC and Medications. COVID protocol/ Oxygen supplementation. Next HD tomorrow. Continue abx. Continue steroids. AM labs. Daily weight. No NSAIDs. Greater than 30min patient care. EXAM DESCRIPTION: RAD - Chest Single View - 07/02/2020 6:30 am CLINICAL HISTORY: PNUEMONIA FOLLOW UP Chest pain. COMPARISON: Chest Single View dated 07/01/2020; Chest Single View dated 06/21/2020; Chest Single View dated 06/19/2020; Chest Single View dated 06/17/2020 FINDINGS: Portable technique limits examination quality. Moderate improvement is seen in bilateral pulmonary opacities since the comparative study. The heart is normal in size. Right-sided venous catheter is in place with tip in the SVC.
[2020-07-03] MEDS: HYDROCODONE/APAP 7.5/325 MG TAB PO PRN ×5 (00:01→21:02)
[2020-07-03 04:06] LABS: Absolute Lymphocytes (CBC) 2.2 K/uL (0.7-4.9); Basophils % 0.9 % (0-1.3); Lymphocytes % 11.7 % (15.3-44.8); MPV 7.7 fL (7.6-11.3); RBC Red Blood Cell Count 2.17 M/uL (4.33-5.43)
[2020-07-03 04:13] LABS: Hematocrit 20.7 % (39.6-49.0)
[2020-07-03 04:37] LABS: Blood Morphology Comment NOT SEEN (NOT SEEN); Platelet Estimate ADEQ
[2020-07-03 04:39] LABS: C-Reactive Protein 43.2 mg/L (<3.00); Ferritin 5759.2 ng/mL (26-388); Magnesium 2.3 mg/dL (1.8-2.4); Potassium 4.7 mmol/L (3.5-5.1)
[2020-07-03] MEDS: PANTOPRAZOLE 40MG TABLET PO SCH ×2 (06:28→13:33)
[2020-07-03] MEDS: CALCIUM CARBONATE CHEW 500MG TAB PO SCH ×3 (07:30→17:05)
[2020-07-03] MEDS: SEVELAMER CARBONATE 800 MG TABLET PO SCH ×3 (08:00→17:05)
[2020-07-03] MEDS: carvediloL 25 MG TAB PO SCH ×3 (08:52→19:58)
[2020-07-03] MEDS: HEPARIN 5000 UNIT/ML 1 ML VIAL SQ SCH ×2 (08:53→20:00)
[2020-07-03] MEDS: AMLODIPINE 10 MG TAB PO SCH ×2 (08:53→13:33)
[2020-07-03] MEDS: CALCITROL 0.25 MCG CAP PO SCH ×2 (08:53→13:32)
[2020-07-03] MEDS: METHYLPREDNISOLONE 125 MG INJ IV SCH (08:53)
[2020-07-03] MEDS: THIAMINE HCL 100 MG TABLET PO SCH ×2 (08:53→13:33)
[2020-07-03] MEDS: CEFEPIME/SWI 1gm 10 ML IV SCH (08:53)
[2020-07-03] MEDS: FOLIC ACID 1 MG TABLET PO SCH ×2 (08:53→13:33)
[2020-07-03] MEDS: ZINC SULFATE 220 MG CAP PO SCH ×2 (08:54→13:33)
[2020-07-03] MEDS: CYANOCOBALAMIN 1,000 MCG TAB PO SCH ×2 (08:54→13:33)
[2020-07-03] MEDS: VITAMIN D 5,000 UNIT CAP PO SCH ×3 (08:54→13:33)
[2020-07-03] MEDS: ASCORBIC ACID 500 MG TABLET PO SCH ×2 (08:54→13:33)
[2020-07-03] MEDS ORDERED: EPOETIN ALFA-EPBX 10,000 UNIT/ML VIAL SQ SCH (09:00)
--- NOTE | 2020-07-03 11:29 | P.PN ---
Subjective Date of Service: 07/03/20 Primary Care Provider: none; Nephrology-Dr. Garcia; Pulmonary-Dr. Pizano Chief Complaint: SOB Subjective: Improving, Doing well Physical Examination - Vital Signs Temperature: 98.1 F Blood Pressure: 140/92 Pulse: 86 Respirations: 19 Pulse Ox (%): 98 - Physical Exam General: Alert, In no apparent distress, Oriented x3, Cooperative HEENT: Atraumatic Neck: Supple Respiratory: Clear to auscultation bilaterally Cardiovascular: Normal pulses Gastrointestinal: No tenderness, No masses, No rebound, No guarding Neurological: Normal speech, Normal strength at 5/5 x4 extr, Normal tone, Normal affect - Studies Medications List Reviewed: Yes Assessment & Plan Discharge Plan: Home Plan to discharge in: 24 Hours Physician Review Additional Text: Impression: Dyspnea secondary to acute on chronic respiratory failure with hypoxia secondary to pulmonary edema complicated with bilateral COVID 19 pneumonia End-stage renal disease on hemodialysis with hyperkalemia Anemia chronic disease Hypertension Hyperlipidemia Cocaine abuse Left hip pain Plan: Dyspnea secondary to acute on chronic respiratory failure with hypoxia secondary to pulmonary edema complicated with bilateral COVID 19 pneumonia: COVID 19 test was positive. Will transition to oral antibiotic and oral prednisone. Continue oral prednisone low dose for about 7 days. Continue with supplementation including thiamine, zinc and vitamin-C. Patient no longer requiring oxygen. Hemoglobin was low this morning. Spoke with nephrology. Nephrology will provide dialysis today with blood transfusion. Will consider discharge home if we can arrange for him to go to dialysis unit that accepts COVID positive patient. Will have social work help in this process. If this can be arranged then will consider discharge later today. Will discuss further with pulmonology as well. End-stage renal disease on hemodialysis with hyperkalemia: Hyperkalemia resolved. Patient did receive dialysis yesterday. Continue with dialysis as directed by nephrology. Anemia chronic disease: Patient on Epogen. Patient to get blood transfusion with dialysis. Hypertension: Continue carvedilol, Norvasc and Cardura. Will continue to adjust medication Hyperlipidemia: Continue with home medication. Cocaine abuse: Cessation addressed in detail. Risks of to continue use was address with the patient. He understands. He plans to quit. Left hip pain: X-ray unremarkable. Will provide medication for pain. BPH: Continue home medication Time Spent Managing Pts Care (In Minutes): 55
[2020-07-03] MEDS: EPOETIN ALFA 10,000 UNIT/ML VIAL IV SCH (11:30)
[2020-07-03] MEDS: levoFLOXacin 250 MG TAB PO SCH (12:54)
[2020-07-03] MEDS: predniSONE 10 MG TAB PO SCH ×2 (13:32→19:59)
--- NOTE | 2020-07-03 19:06 | P.PN ---
Date of Service: 07/03/20 Vital Signs Temp Pulse Resp BP Pulse Ox 98.1 F 97 H 15 134/90 96 07/03/20 16:00 07/03/20 16:00 07/03/20 16:00 07/03/20 16:00 07/03/20 16:00 Medications Acetaminophen (Tylenol -Extra Strength) 500 mg PO Q4HP PRN PRN Reason: TEMP > 101' F Stop: 07/31/20 14:15 Hydrocodone Bitart/Acetaminophen ([place] 7.5/325 Mg) 1 tab PO Q6H PRN PRN Reason: Pain scale 5-7 (Moderate) Stop: 07/31/20 14:15 Last Admin: 07/03/20 15:07 Dose: 1 tab Documented by: Albuterol Sulfate (Proventil 0.083% Neb Soln) 2.5 mg NEB [id number] PRN PRN Reason: SHORTNESS OF BREATH Stop: 07/31/20 14:15 Amlodipine Besylate (Norvasc) 10 mg PO DAILY [facility] Stop: 08/01/20 09:01 Last Admin: 07/03/20 13:33 Dose: 10 mg Documented by: Ascorbic Acid (Vitamin C) 500 mg PO DAILY [facility] Stop: 08/01/20 09:01 Last Admin: 07/03/20 13:33 Dose: 500 mg Documented by: Calcitriol (Rocaltrol) 0.5 mcg PO DAILY [facility] Stop: 08/01/20 09:01 Last Admin: 07/03/20 13:32 Dose: 0.5 mcg Documented by: Calcium Carbonate/Glycine (Tums Regular) 1,000 mg PO AC [facility] Stop: 07/31/20 16:31 Last Admin: 07/03/20 17:05 Dose: 1,000 mg Documented by: Carvedilol (Coreg) 25 mg PO BID [facility] Stop: 08/01/20 09:01 Last Admin: 07/03/20 13:34 Dose: 25 mg Documented by: Cholecalciferol (Vitamin D 5,000 Iu Cap) 5,000 unit PO DAILY [facility] Stop: 08/01/20 09:01 Last Admin: 07/03/20 13:33 Dose: 5,000 unit Documented by: Cholecalciferol (Vitamin D 5,000 Iu Cap) 5,000 unit PO DAILY [facility] Stop: 08/02/20 09:01 Last Admin: 07/03/20 09:00 Dose: Not Given Documented by: Cyanocobalamin (Vitamin B-12) 1,000 mcg PO DAILY [facility] Stop: 08/01/20 09:01 Last Admin: 07/03/20 13:33 Dose: 1,000 mcg Documented by: Doxazosin Mesylate (Cardura) 2 mg PO BEDTIME [facility] Stop: 08/01/20 21:01 Last Admin: 07/02/20 20:22 Dose: 2 mg Documented by: Epoetin Harpreet (Retacrit) 10,000 unit IV EVERY HD [facility] Stop: 07/31/20 14:31 Last Admin: 07/03/20 11:30 Dose: 10,000 unit Documented by: Folic Acid (Folic Acid) 1 mg PO DAILY [facility] Stop: 08/01/20 09:01 Last Admin: 07/03/20 13:33 Dose: 1 mg Documented by: Heparin Sodium (Porcine) (Heparin 5,000 Units/Ml) 5,000 unit SQ Q12HR [facility] Stop: 07/31/20 21:01 Last Admin: 07/03/20 08:53 Dose: Not Given Documented by: Heparin Sodium (Porcine) (Heparin 1,000 Units/Ml) 6,000 unit IV EVERY HD PRN PRN Reason: dialysis Last Admin: 07/03/20 12:20 Dose: 6,000 unit Documented by: Hydralazine HCl (Apresoline) 10 mg IV Q6HP PRN PRN Reason: Titrate to SBP (MUST DEFINE) Stop: 07/31/20 14:15 Ipratropium [place] (Atrovent Neb) 0.5 mg NEB [id number] PRN PRN Reason: SHORTNESS OF BREATH Stop: 07/31/20 14:15 Levofloxacin (Levaquin) 250 mg PO Q48H [facility]; Protocol Stop: 08/02/20 12:01 Last Admin: 07/03/20 12:54 Dose: 250 mg Documented by: Ondansetron HCl (Zofran) 4 mg IV Q6HP PRN PRN Reason: NAUSEA / VOMITING Stop: 07/31/20 14:15 Pantoprazole Sodium (Protonix Tab) 40 mg PO DAILYAC [facility]; Protocol Stop: 08/01/20 06:31 Last Admin: 07/03/20 13:33 Dose: 40 mg Documented by: Prednisone (Deltasone) 10 mg PO BID [facility] Stop: 08/02/20 21:01 Last Admin: 07/03/20 13:32 Dose: 10 mg Documented by: Sevelamer Carbonate (Renvela) 800 mg PO TIDWM [facility] Stop: 08/01/20 08:01 Last Admin: 07/03/20 17:05 Dose: 800 mg Documented by: Sodium Chloride (Normal Saline Flush) 10 ml IV BID [facility] Stop: 07/31/20 21:01 Last Admin: 07/03/20 08:53 Dose: Not Given Documented by: Tamsulosin HCl (Flomax) 0.4 mg PO BEDTIME [facility] Stop: 07/31/20 21:01 Last Admin: 07/02/20 20:22 Dose: 0.4 mg Documented by: Thiamine HCl (Vitamin B-1) 100 mg PO DAILY [facility] Stop: 08/01/20 09:01 Last Admin: 07/03/20 13:33 Dose: 100 mg Documented by: Zinc Sulfate (Zinc Sulfate) 220 mg PO DAILY [facility] Stop: 08/01/20 09:01 Last Admin: 07/03/20 13:33 Dose: 220 mg Documented by: Microbiology Results 07/01/20 10:29 Blood - Blood Aerobic Blood Culture - Preliminary No growth in 24 hours. 07/01/20 10:29 Blood - Blood Anaerobic Blood Culture - Preliminary No growth in 24 hours. 07/01/20 10:16 Blood - Blood Aerobic Blood Culture - Preliminary No growth in 24 hours. 07/01/20 10:16 Blood - Blood Anaerobic Blood Culture - Preliminary No growth in 24 hours. Assessment/ Plan: Nephrology CPS stable without CP or SOB. +BASURTO Feeling better and stronger. No acute events overnight. Vitals, medications, blood work and imaging reviewed in the chart. NAD. MMM. Neck supple. Basilar rales. RRR. Soft Abd. No C/C/E. No rash. AAO. Normal Speech. A/ ESRD on HD HTN with CKD/ CHF Diastolic CHF, A/C Acute respiratory failure DM II with CKD Anemia in CKD MIAH/ Secondary HyperPTH COVID19 P/ Continue current POC and Medications. COVID protocol/ Oxygen supplementation. HD TID. Continue abx. Continue steroids. AM labs. Daily weight. No NSAIDs. Seen and examined on HD. Case reviewed with Dr. Prezas EXAM DESCRIPTION: RAD - Chest Single View - 07/02/2020 6:30 am CLINICAL HISTORY: PNUEMONIA FOLLOW UP Chest pain. COMPARISON: Chest Single View dated 07/01/2020; Chest Single View dated 06/21/2020; Chest Single View dated 06/19/2020; Chest Single View dated FINDINGS: Portable technique limits examination quality. Moderate improvement is seen in bilateral pulmonary opacities since the comparative study. The heart is normal in size. Right-sided venous catheter is in place with tip in the SVC.
[2020-07-03 19:57] LABS: Hematocrit 23.9 % (39.6-49.0)
[2020-07-03] MEDS: DOXAZOSIN 2 MG TAB PO SCH (19:58)
[2020-07-03] MEDS: TAMSULOSIN 0.4 MG SR CAP PO SCH (19:59)
[2020-07-04] MEDS: HYDROCODONE/APAP 7.5/325 MG TAB PO PRN ×4 (03:40→21:01)
[2020-07-04 04:14] LABS: Absolute Lymphocytes (CBC) 2.2 K/uL (0.7-4.9); Basophils % 1.2 % (0-1.3); Hematocrit 24.4 % (39.6-49.0); Lymphocytes % 12.7 % (15.3-44.8); MPV 7.7 fL (7.6-11.3); RBC Red Blood Cell Count 2.59 M/uL (4.33-5.43)
[2020-07-04 04:50] LABS: C-Reactive Protein 25.7 mg/L (<3.00); Ferritin 5697.7 ng/mL (26-388); Magnesium 2.2 mg/dL (1.8-2.4); Potassium 4.7 mmol/L (3.5-5.1)
[2020-07-04] MEDS: PANTOPRAZOLE 40MG TABLET PO SCH (06:01)
[2020-07-04] MEDS: FOLIC ACID 1 MG TABLET PO SCH (08:14)
[2020-07-04] MEDS: THIAMINE HCL 100 MG TABLET PO SCH (08:14)
[2020-07-04] MEDS: ASCORBIC ACID 500 MG TABLET PO SCH (08:15)
[2020-07-04] MEDS: ZINC SULFATE 220 MG CAP PO SCH (08:15)
[2020-07-04] MEDS: predniSONE 10 MG TAB PO SCH ×2 (08:15→20:02)
[2020-07-04] MEDS: AMLODIPINE 10 MG TAB PO SCH (08:15)
[2020-07-04] MEDS: SEVELAMER CARBONATE 800 MG TABLET PO SCH ×3 (08:15→16:36)
[2020-07-04] MEDS: VITAMIN D 5,000 UNIT CAP PO SCH ×2 (08:15→08:18)
[2020-07-04] MEDS: CALCITROL 0.25 MCG CAP PO SCH (08:15)
[2020-07-04] MEDS: carvediloL 25 MG TAB PO SCH ×2 (08:16→20:02)
[2020-07-04] MEDS: CYANOCOBALAMIN 1,000 MCG TAB PO SCH (08:17)
[2020-07-04] MEDS: CALCIUM CARBONATE CHEW 500MG TAB PO SCH ×3 (08:17→16:35)
[2020-07-04] MEDS: HEPARIN 5000 UNIT/ML 1 ML VIAL SQ SCH ×2 (08:18→20:03)
--- NOTE | 2020-07-04 11:04 | P.PN ---
Subjective Date of Service: 07/04/20 Primary Care Provider: none; Nephrology-Dr. Garcia; Pulmonary-Dr. Pizano Chief Complaint: SOB Subjective: Doing well Physical Examination - Vital Signs Temperature: 98.3 F Blood Pressure: 142/90 Pulse: 80 Respirations: 15 Pulse Ox (%): 97 - Physical Exam General: Alert, Oriented x3, Cooperative HEENT: Atraumatic Neck: Supple Respiratory: Other (Patient appears without significant distress) Cardiovascular: Normal pulses Neurological: Normal speech, Normal strength at 5/5 x4 extr, Normal tone, Normal affect - Studies Medications List Reviewed: Yes Assessment & Plan Discharge Plan: Home Plan to discharge in: 24 Hours Physician Review Additional Text: Impression: Dyspnea secondary to acute on chronic respiratory failure with hypoxia secondary to pulmonary edema complicated with bilateral COVID 19 pneumonia End-stage renal disease on hemodialysis with hyperkalemia Anemia chronic disease Hypertension Hyperlipidemia Cocaine abuse Left hip pain Plan: Dyspnea secondary to acute on chronic respiratory failure with hypoxia secondary to pulmonary edema complicated with bilateral COVID 19 pneumonia: Patient has done well. Continue antibiotic and prednisone. Patient off oxygen. Still trying to arrange for dialysis at a COVID 19 positive unit. Will continue to work with the dialysis center and Nephrology to help with this. Once this has been changed and approved then will discharge patient. Continue oral prednisone low dose for about 7 days. Continue with supplementation including thiamine, zinc and vitamin-C. End-stage renal disease on hemodialysis with hyperkalemia: Hyperkalemia resolved. Patient did receive dialysis yesterday. Continue with dialysis as directed by nephrology. Patient will need to go to a COVID 19 positive unit. Anemia chronic disease: Patient on Epogen. Patient to get blood transfusion with dialysis. Hypertension: Continue carvedilol, Norvasc and Cardura. Will continue to adjust medication Hyperlipidemia: Continue with home medication. Cocaine abuse: Cessation addressed in detail. Risks of to continue use was address with the patient. He understands. He plans to quit. Left hip pain: X-ray unremarkable. Will provide medication for pain. BPH: Continue home medication Time Spent Managing Pts Care (In Minutes): 55
[2020-07-04 11:26] VITALS: BMI 23.3
--- NOTE | 2020-07-04 13:09 | CON ---
Date of Consultation: 07/04/2020 Subjective: The patient is seen at the bedside. No overnight events reported. The patient remains in ICU as part of the COVID unit. He feels well. He is eating his meal. He denies any fevers, chil ls, chest pain, shortness of breath, nausea, vomiting, or diarrhea. Objective: Vital Signs: Blood pressure 125/84, pulse 73, afebrile, blood pressure trend has been an ywhere from the 150s to the 130s on the systolic. General: No acute distress. Heart: Regular rate and rhythm. No murmurs, rubs, gallops. Lungs: Clear to auscultation. Abdomen: Soft, nontender. Extremities: No significant edema. Laboratory Data: Hemoglobin 8.3, hematocrit 24.4. Serum chemistry, potassium 4.7, inflammatory tyler ers are elevated and appear to be trending downward. Current Medications: Reviewed. Impression: 1.End-stage renal disease, on hemodialysis. 2.COVID-19 pneumonia. 3.Anemia. 4.Hypertension. 5.Dyslipidemia. 6.Cocaine abuse. Plan: The patient is stable from volume and electrolyte standpoint. The patient is relatively new t o dialysis and has urine output which was measured as 1.4 L yesterday thus far today. We will add Lasix 80 mg daily to promote negative balance especially on off dialysis days. Plan: Plan of care was explained to the patient. Continue renal diet. Continue current antihyperte nsive regimen. The patient will need case management followup for placement because of positive dialysis needs and i solation protocols. /MODL Voice ID: [id number] Report ID: [id number]
[2020-07-04] MEDS: DOXAZOSIN 2 MG TAB PO SCH (20:02)
[2020-07-04] MEDS: TAMSULOSIN 0.4 MG SR CAP PO SCH (20:02)
[2020-07-05] MEDS: HYDROCODONE/APAP 7.5/325 MG TAB PO PRN ×4 (03:06→21:55)
[2020-07-05] MEDS: PANTOPRAZOLE 40MG TABLET PO SCH (06:00)
[2020-07-05] MEDS: FOLIC ACID 1 MG TABLET PO SCH (08:32)
[2020-07-05] MEDS: VITAMIN D 5,000 UNIT CAP PO SCH ×2 (08:33)
[2020-07-05] MEDS: ZINC SULFATE 220 MG CAP PO SCH (08:33)
[2020-07-05] MEDS: FUROSEMIDE 40 MG TABLET PO SCH (08:33)
[2020-07-05] MEDS: CALCITROL 0.25 MCG CAP PO SCH (08:33)
[2020-07-05] MEDS: CYANOCOBALAMIN 1,000 MCG TAB PO SCH (08:34)
[2020-07-05] MEDS: THIAMINE HCL 100 MG TABLET PO SCH (08:34)
[2020-07-05] MEDS: CALCIUM CARBONATE CHEW 500MG TAB PO SCH ×3 (08:34→16:51)
[2020-07-05] MEDS: SEVELAMER CARBONATE 800 MG TABLET PO SCH ×3 (08:34→16:52)
[2020-07-05] MEDS: carvediloL 25 MG TAB PO SCH ×3 (08:34→20:28)
[2020-07-05] MEDS: ASCORBIC ACID 500 MG TABLET PO SCH (08:34)
[2020-07-05] MEDS: AMLODIPINE 10 MG TAB PO SCH (08:37)
[2020-07-05] MEDS: predniSONE 10 MG TAB PO SCH ×3 (08:37→20:28)
[2020-07-05] MEDS: HEPARIN 5000 UNIT/ML 1 ML VIAL SQ SCH ×3 (08:52→20:28)
--- NOTE | 2020-07-05 10:25 | P.PN ---
Subjective Date of Service: 07/05/20 Primary Care Provider: none; Nephrology-Dr. Garcia; Pulmonary-Dr. Pizano Chief Complaint: SOB Subjective: Doing well Physical Examination - Vital Signs Temperature: 97.6 F Blood Pressure: 134/93 Pulse: 69 Respirations: 14 Pulse Ox (%): 97 - Physical Exam General: Alert, In no apparent distress, Oriented x3, Cooperative HEENT: Atraumatic Neck: Supple Respiratory: Clear to auscultation bilaterally, Normal air movement Cardiovascular: Normal pulses, Regular rate/rhythm Gastrointestinal: Normal bowel sounds, Soft and benign, Non-distended Neurological: Normal speech, Normal strength at 5/5 x4 extr, Normal tone, Normal affect - Studies Medications List Reviewed: Yes Assessment & Plan Discharge Plan: Home Plan to discharge in: 24 Hours Physician Review Additional Text: Impression: Dyspnea secondary to acute on chronic respiratory failure with hypoxia secondary to pulmonary edema complicated with bilateral COVID 19 pneumonia End-stage renal disease on hemodialysis with hyperkalemia Anemia chronic disease Hypertension Hyperlipidemia Cocaine abuse Left hip pain Plan: Dyspnea secondary to acute on chronic respiratory failure with hypoxia secondary to pulmonary edema complicated with bilateral COVID 19 pneumonia: Patient has done well. Continue antibiotic-Levaquin and prednisone. Patient off oxygen. Spoke with nephrology at length concerning transition to COVID 19 positive unit to continue dialysis. Will consult social work to help in setting up dialysis at [facility]. This will likely be done tomorrow. If this can be arranged then patient can be discharged home. For now all continue current medication. Continue dialysis. I will turn the service over to the hospitalist team tomorrow. I will go over plan of care with him. End-stage renal disease on hemodialysis with hyperkalemia: Hyperkalemia resolved. Patient to continue dialysis. Arrangements to a COVID 19 positive dialysis unit currently in progress. Once this has been arranged and approved then the patient can be discharge. Anemia chronic disease: Patient on Epogen. Overall stable patient did receive blood during the course of his stay. Hypertension: Continue carvedilol, Norvasc and Cardura. Will continue to adjust medication Hyperlipidemia: Continue with home medication. Cocaine abuse: Cessation addressed in detail. Risks of to continue use was address with the patient. He understands. He plans to quit. Left hip pain: X-ray unremarkable. Will provide medication for pain. BPH: Continue home medication Time Spent Managing Pts Care (In Minutes): 55
[2020-07-05] MEDS: levoFLOXacin 250 MG TAB PO SCH (11:53)
[2020-07-05] MEDS: DOXAZOSIN 2 MG TAB PO SCH ×2 (20:00→20:28)
[2020-07-05] MEDS: TAMSULOSIN 0.4 MG SR CAP PO SCH ×2 (20:00→20:28)
[2020-07-06] MEDS: HYDROCODONE/APAP 7.5/325 MG TAB PO PRN ×3 (02:55→14:18)
[2020-07-06 05:05] LABS: Hematocrit 23.7 % (39.6-49.0); Lymphocytes % 15.7 % (15.3-44.8); MPV 7.6 fL (7.6-11.3)
[2020-07-06 05:19] LABS: Magnesium 2.4 mg/dL (1.8-2.4)
[2020-07-06 05:32] LABS: Potassium 6.2 mmol/L (3.5-5.1)
[2020-07-06] MEDS: PANTOPRAZOLE 40MG TABLET PO SCH (05:32)
[2020-07-06] MEDS: CALCIUM CARBONATE CHEW 500MG TAB PO SCH ×3 (06:36→15:39)
[2020-07-06] MEDS: FUROSEMIDE 40 MG TABLET PO SCH (07:13)
[2020-07-06] MEDS: VITAMIN D 5,000 UNIT CAP PO SCH ×2 (07:13→07:40)
[2020-07-06] MEDS: THIAMINE HCL 100 MG TABLET PO SCH (07:13)
[2020-07-06] MEDS: CALCITROL 0.25 MCG CAP PO SCH (07:13)
[2020-07-06] MEDS: carvediloL 25 MG TAB PO SCH (07:14)
[2020-07-06] MEDS: AMLODIPINE 10 MG TAB PO SCH (07:14)
[2020-07-06] MEDS: FOLIC ACID 1 MG TABLET PO SCH (07:14)
[2020-07-06] MEDS: ZINC SULFATE 220 MG CAP PO SCH (07:14)
[2020-07-06] MEDS: SEVELAMER CARBONATE 800 MG TABLET PO SCH ×3 (07:15→16:05)
[2020-07-06] MEDS: predniSONE 10 MG TAB PO SCH (07:15)
[2020-07-06] MEDS: ASCORBIC ACID 500 MG TABLET PO SCH (07:15)
[2020-07-06] MEDS: HEPARIN 5000 UNIT/ML 1 ML VIAL SQ SCH (07:15)
[2020-07-06] MEDS: CYANOCOBALAMIN 1,000 MCG TAB PO SCH (07:15)
--- NOTE | 2020-07-06 10:32 | P.PN ---
Date of Service: 07/06/20 Vital Signs Temp Pulse Resp BP Pulse Ox 97.4 F 71 19 146/90 H 100 07/06/20 08:00 07/06/20 08:00 07/06/20 09:09 07/06/20 08:00 07/06/20 09:09 Medications Acetaminophen (Tylenol -Extra Strength) 500 mg PO Q4HP PRN PRN Reason: TEMP > 101' F Stop: 07/31/20 14:15 Hydrocodone Bitart/Acetaminophen ([place] 7.5/325 Mg) 1 tab PO Q6H PRN PRN Reason: Pain scale 5-7 (Moderate) Stop: 07/31/20 14:15 Last Admin: 07/06/20 08:09 Dose: 1 tab Documented by: Albuterol Sulfate (Proventil 0.083% Neb Soln) 2.5 mg NEB [id number] PRN PRN Reason: SHORTNESS OF BREATH Stop: 07/31/20 14:15 Amlodipine Besylate (Norvasc) 10 mg PO DAILY [facility] Stop: 08/01/20 09:01 Last Admin: 07/06/20 07:14 Dose: 10 mg Documented by: Ascorbic Acid (Vitamin C) 500 mg PO DAILY [facility] Stop: 08/01/20 09:01 Last Admin: 07/06/20 07:15 Dose: 500 mg Documented by: Calcitriol (Rocaltrol) 0.5 mcg PO DAILY [facility] Stop: 08/01/20 09:01 Last Admin: 07/06/20 07:13 Dose: 0.5 mcg Documented by: Calcium Carbonate/Glycine (Tums Regular) 1,000 mg PO AC [facility] Stop: 07/31/20 16:31 Last Admin: 07/06/20 06:36 Dose: 1,000 mg Documented by: Carvedilol (Coreg) 25 mg PO BID [facility] Stop: 08/01/20 09:01 Last Admin: 07/06/20 07:14 Dose: 25 mg Documented by: Cholecalciferol (Vitamin D 5,000 Iu Cap) 5,000 unit PO DAILY [facility] Stop: 08/02/20 09:01 Last Admin: 07/06/20 07:40 Dose: Not Given Documented by: Cyanocobalamin (Vitamin B-12) 1,000 mcg PO DAILY [facility] Stop: 08/01/20 09:01 Last Admin: 07/06/20 07:15 Dose: 1,000 mcg Documented by: Doxazosin Mesylate (Cardura) 2 mg PO BEDTIME [facility] Stop: 08/01/20 21:01 Last Admin: 07/05/20 20:28 Dose: 2 mg Documented by: Epoetin Harpreet (Retacrit) 10,000 unit IV EVERY HD [facility] Stop: 07/31/20 14:31 Last Admin: 07/03/20 11:30 Dose: 10,000 unit Documented by: Folic Acid (Folic Acid) 1 mg PO DAILY [facility] Stop: 08/01/20 09:01 Last Admin: 07/06/20 07:14 Dose: 1 mg Documented by: Furosemide (Lasix) 80 mg PO DAILY [facility] Stop: 08/04/20 09:01 Last Admin: 07/06/20 07:13 Dose: 80 mg Documented by: Heparin Sodium (Porcine) (Heparin 5,000 Units/Ml) 5,000 unit SQ Q12HR [facility] Stop: 07/31/20 21:01 Last Admin: 07/06/20 07:15 Dose: 5,000 unit Documented by: Heparin Sodium (Porcine) (Heparin 1,000 Units/Ml) 6,000 unit IV EVERY HD PRN PRN Reason: dialysis Last Admin: 07/03/20 12:20 Dose: 6,000 unit Documented by: Hydralazine HCl (Apresoline) 10 mg IV Q6HP PRN PRN Reason: Titrate to SBP (MUST DEFINE) Stop: 07/31/20 14:15 Ipratropium [place] (Atrovent Neb) 0.5 mg NEB [id number] PRN PRN Reason: SHORTNESS OF BREATH Stop: 07/31/20 14:15 Levofloxacin (Levaquin) 250 mg PO Q48H [facility]; Protocol Stop: 08/02/20 12:01 Last Admin: 07/05/20 11:53 Dose: 250 mg Documented by: Ondansetron HCl (Zofran) 4 mg IV Q6HP PRN PRN Reason: NAUSEA / VOMITING Stop: 07/31/20 14:15 Last Admin: 07/06/20 08:09 Dose: 4 mg Documented by: Pantoprazole Sodium (Protonix Tab) 40 mg PO DAILYAC [facility]; Protocol Stop: 08/01/20 06:31 Last Admin: 07/06/20 05:32 Dose: 40 mg Documented by: Prednisone (Deltasone) 10 mg PO BID [facility] Stop: 08/02/20 21:01 Last Admin: 07/06/20 07:15 Dose: 10 mg Documented by: Sevelamer Carbonate (Renvela) 800 mg PO TIDWM [facility] Stop: 08/01/20 08:01 Last Admin: 07/06/20 07:15 Dose: 800 mg Documented by: Sodium Chloride (Normal Saline Flush) 10 ml IV BID [facility] Stop: 07/31/20 21:01 Last Admin: 07/06/20 07:15 Dose: 10 ml Documented by: Tamsulosin HCl (Flomax) 0.4 mg PO BEDTIME [facility] Stop: 07/31/20 21:01 Last Admin: 07/05/20 20:28 Dose: 0.4 mg Documented by: Thiamine HCl (Vitamin B-1) 100 mg PO DAILY [facility] Stop: 08/01/20 09:01 Last Admin: 07/06/20 07:13 Dose: 100 mg Documented by: Zinc Sulfate (Zinc Sulfate) 220 mg PO DAILY [facility] Stop: 08/01/20 09:01 Last Admin: 07/06/20 07:14 Dose: 220 mg Documented by: Microbiology Results 07/01/20 10:16 Blood - Blood Aerobic Blood Culture - Final No growth in 5 days. 07/01/20 10:16 Blood - Blood Anaerobic Blood Culture - Final No growth in 5 days. 07/01/20 10:29 Blood - Blood Aerobic Blood Culture - Preliminary No growth in 24 hours. 07/01/20 10:29 Blood - Blood Anaerobic Blood Culture - Preliminary No growth in 24 hours. Assessment/ Plan: Nephrology CPS stable without CP or SOB. Feeling better and stronger. No acute events overnight. Vitals, medications, blood work and imaging reviewed in the chart. NAD. MMM. Neck supple. CTA. RRR. Soft Abd. No C/C/E. No rash. AAO. Normal Speech. A/ ESRD on HD HTN with CKD/ CHF Diastolic CHF, A/C Acute respiratory failure DM II with CKD Anemia in CKD MIAH/ Secondary HyperPTH COVID19 P/ Continue current POC and Medications. COVID protocol/ Oxygen supplementation. HD TID. Continue abx. Continue steroids. AM labs. Daily weight. No NSAIDs. Seen and examined on HD. Case reviewed with Dr. Camarena. Placement pending. EXAM DESCRIPTION: RAD - Chest Single View - 07/02/2020 6:30 am CLINICAL HISTORY: PNUEMONIA FOLLOW UP Chest pain. COMPARISON: Chest Single View dated 07/01/2020; Chest Single View dated 06/21/2020; Chest Single View dated 06/19/2020; Chest Single View dated 06/17/2020 FINDINGS: Portable technique limits examination quality. Moderate improvement is seen in bilateral pulmonary opacities since the comparative study. The heart is normal in size. Right-sided venous catheter is in place with tip in the SVC.
[2020-07-06 11:14] VITALS: O2SAT 99
[2020-07-06] MEDS: EPOETIN ALFA 10,000 UNIT/ML VIAL IV SCH (11:15)
[2020-07-06 16:17] VITALS: TEMP 98.1
[2020-07-06 18:09] VITALS: BP 135/80
== END 2020-07-06 19:30 | disposition home or self-care (01) | DRG 177 ==
LOC: ER 09:48 → ERHOLD 11:26 → 3RD-ICU 17:32
PROVIDERS: ADMIT Family Medicine; ATTEND Hospitalist
PROC: 30233N1 Transfusion of Nonautologous Red Blood Cells into Peripheral Vein, Percutaneous Approach (ICD-10-PCS; principal; 2020-07-03)
DX: U07.1 COVID-19 (principal); N18.6 End stage renal disease; J12.89 Other viral pneumonia; J96.21 Acute and chronic respiratory failure with hypoxia; I50.33 Acute on chronic diastolic (congestive) heart failure; I13.2 Hypertensive heart and chronic kidney disease with heart failure and with stage 5 chronic kidney disease, or end stage renal disease; N25.81 Secondary hyperparathyroidism of renal origin; K21.9 Gastro-esophageal reflux disease without esophagitis; E11.22 Type 2 diabetes mellitus with diabetic chronic kidney disease; N25.0 Renal osteodystrophy; F14.10 Cocaine abuse, uncomplicated; N40.0 Benign prostatic hyperplasia without lower urinary tract symptoms; F17.200 Nicotine dependence, unspecified, uncomplicated; D63.1 Anemia in chronic kidney disease; M25.552 Pain in left hip; E87.5 Hyperkalemia; E78.5 Hyperlipidemia, unspecified; Z99.2 Dependence on renal dialysis; Z59.0 Homelessness; Z79.899 Other long term (current) drug therapy
CPT/HCPCS: 36415; 71045; 80048; 80076; 80307; 81003; 82550; 82553; 82728; 82947; 83605; 83735; 83880; 84145; 84484; 85014; 85018; 85025; 85610; 86140; 86850; 86900; 86901; 87040; 87804; 90935; 93005; 94760; 96365; 96375; 99285; J0610; J0692; J1644; J2405; J2930; J3370; J7512; P9016; Q5105; Q5106; U0003

== ENCOUNTER 2020-07-11 12:45 | Emergency (ER) | payer OTHER ==
--- OUTSIDE RECORDS SUMMARY | 2020-07-11 12:49 | XMS REPORT | Clinical Summary ---
:1965 Author Organization [facility] Address [address] [place] [address] Care Team Providers Name Role Phone Unavailable [...] age renal disease) on dialysis ([facility]); 06/03/2020 Severe sepsis ([facility]); Jeff Nicholas acido sis; Christopher Hematoma of thi gh, right, initial encounter; MD Donna PINA (acute kidney injury) ([facility]); Vee Hernandez Thrombocytop enia ([facility]); MD Corrine Anemia, unspecified type; Delia Matthews Gastroesophalice geal reflux disease, unspecified whether esophagitis present; MD Akilah Epigastric pain; Mustapha, Acute blood los s anemia Emanuel Valdivia MD 05/23/2020 Telephone Critical Care Santy Cardona, transfer Medicine Michael Ames MD 02/22/2020 Lab Requisition Lab after 07/11/2019 Immunizations Name Administration Dates Next Due Influenza [...] procedure are in the results section. after 07/11/2019 Results HEMODIALYSIS INPATIENT (06/03/2020 12:01 PM CDT) [...] Pathologist Sig nature % Neutros 62 % [facility] % Lymphs 27 % [facility] % Monos 5 % [facility] % Myelo 3 (H) 0 - 0 % [facility] % Bands 3 0 - 10 % [facility] # Neutros 7.19 (H) 1.78 - 5.38 K/ul [facility] # Lymphs 3.13 1.32 - 3.57 K/ul [facility] # Monos 0.58 0.30 - 0.82 K/uL [facility] # Myelo 0.35 (H) 0.00 - 0.00 K/uL [facility] # Bands 0.35 0.00 - 0.80 K/uL [facility] Total Counted 100 [facility] nRBC (manual) 1 (H) 0 - 0 /100 WBC [facility] WBC Morphology Normal [facility] Large Platelet Present [facility] Anisocytosis 1+ few [facility] Microcytes 1+ few [facility] Artifact Present [facility] Platelet Conc Decreased [facility] Specimen Blood Narrative Performed At Endorsement Clerk ID - Chris Zack [facility] User comments: Slide comments: Performing Organization Address City/State/Zipcode Phone Number [address] [address] CENTER PT/aPTT (06/03/2020 4:07 AM CDT)Only the most recent of12 resultswithin the time period is included. Pathologist Sig nature Protime 14.1 11.9 - 14.2 seconds [facility] INR 1.12 <=5.90 [facility] PTT 38.0 (H) 22.5 - 36.0 seconds [facility] Specimen Blood Narrative Performed At Effective 01/16/2019: PT Reference Range [facility] Change New: 11.9-14.2 Previous: 11.7-14.7 RECOMMENDED COUMADIN/WARFARIN INR THERAPY RANGES STANDARD DOSE: 2.0-3.0 Includes: PROPHYLAXIS for venous thrombosis, systemic embolization; TREATMENT for venous thrombosis and/or pulmonary embolus. HIGH RISK: Target INR is 2.5-3.5 for patients wiht mechanical heart valves. Performing Organization Address City/State/Zipcode Phone Number [address] [address] CENTER Calcium, Ionized (06/03/2020 4:07 AM CDT)Only the most recent of4 resultswithin the time period is included. Pathologist Sig nature Calcium, Ion 1.17 1.12 - 1.27 mmol/L [facility] pH, Blood 7.44 [facility] Specimen Blood Performing Organization Address City/State/Zipcode Phone Number [facility] [address] [place] [address] CENTER CBC with platelet count + automated diff (06/03/2020 4:07 AM CDT)Only the most recent of13 resultswithin the time period is included. Pathologist Sig nature WBC 11.6 (H) 3.5 - 10.5 K/L [facility] RBC 2.46 (L) 4.63 - 6.08 M/L [facility] Hemoglobin 7.9 (L) 13.7 - 17.5 GM/DL [facility] Hematocrit 23.2 (L) 40.1 - 51.0 % [facility] MCV 94.3 (H) 79.0 - 92.2 fL [facility] MCH 32.1 25.7 - 32.2 pg [facility] MCHC 34.1 32.3 - 36.5 GM/DL [facility] RDW 15.9 (H) 11.6 - 14.4 % [facility] Platelets 79 (L) 150 - 450 K/CU MM [facility] MPV 10.8 9.4 - 12.4 fL [facility] nRBC 1 (H) 0 - 0 /100 WBC [facility] Specimen Blood Performing Organization Address City/State/Zipcode Phone Number [facility] [address] [place] [address] CENTER Phosphorus (06/03/2020 4:07 AM CDT)Only the most recent of7 resultswithin the time period is included. Pathologist Sig nature Phosphorus 4.3Comment: 2.3 - 4.7 mg/dL [facility] Specimen slightly [facility] Specimen Blood Narrative Performed At Endorsement Clerk ID - BONILLA [facility] Performing Organization Address [facility]/Zipcode Phone Number [facility] [address] [place] [address] CENTER Magnesium (06/03/2020 4:07 AM CDT)Only the most recent of12 resultswithin the time period is included. Pathologist Sig nature Magnesium 2.0Comment: Specimen 1.6 - 2.6 mg/dL [facility] Specimen Blood Narrative Performed At Endorsement Clerk ID - [facility] Performing Organization Address [facility] Phone Number [address] [address] [place] Hepatic function panel (06/03/2020 4:07 AM CDT)Only the most recent of12 resultswithin the time period is included. Protein, Total 6.5Comment: 6.0 - 8.3 [facility] Specimen slightly gm/dL [facility] Albumin 3.3 (L)Comment: 3.5 - 5.0 [facility] Specimen slightly g/dL [facility] Total Bilirubin 0.3Comment: 0.2 - 1.2 [facility] Specimen slightly mg/dL [facility] Bilirubin, Direct 0.1Comment: 0.1 - 0.5 [facility] Specimen slightly mg/dL [facility] Alkaline 71 40 - 150 U/L [facility] Phosphatase [facility] AST 42 (H)Comment: 5 - 34 U/L [facility] Specimen slightly [facility] ALT 14Comment: 6 - 55 U/L [facility] Specimen slightly [facility] Specimen Blood Narrative Performed At Endorsement Clerk ID - BONILLA [facility] Performing Organization Address City/State/Zipcode Phone Number [facility] [address] [place] [address] CENTER Comprehensive metabolic panel (06/03/2020 4:07 AM CDT)Only the most recent of4 resultswithin the time period is included. Protein, Total 6.5Comment: 6.0 - 8.3 [facility] Specimen slightly gm/dL [facility] Albumin 3.3 (L)Comment: 3.5 - 5.0 [facility] Specimen slightly g/dL [facility] Alkaline 71 40 - 150 U/L [facility] Phosphatase [facility] Total Bilirubin 0.3Comment: 0.2 - 1.2 [facility] Specimen slightly mg/dL [facility] Sodium 134 (L) 136 - 145 [facility] meq/L [facility] Potassium 5.1Comment: 3.5 - 5.1 [facility] Specimen slightly meq/L [facility] Chloride 96 (L) 98 - 107 [facility] meq/L [facility] CO2 24 22 - 29 meq/L [facility] BUN 60 (H) 7 - 21 mg/dL [facility] Creatinine 9.02 (H)Comment: 0.57 - 1.25 [facility] Specimen slightly mg/dL [facility] Glucose 89 70 - 105 [facility] mg/dL [facility] Calcium 9.2 8.4 - 10.2 [facility] mg/dL [facility] AST 42 (H)Comment: 5 - 34 U/L [facility] Specimen [facility] ALT 14Comment: 6 - 55 U/L [facility] EGFR 6Comment: mL/min/1.73 [facility] ESTIMATED GFR IS sq [facility] NOT ACCURATE [facility]ENTER CREATININE CLEARANCE IN PREDICTING GLOMERULAR FILTRATION RATE. ESTIMATED GFR IS NOT APPLICABLE FOR DIALYSIS PATIENTS. Specimen Blood Narrative Performed At Endorsement Clerk ID - BONILLA Moore [facility] Performing Organization Address City/[facility]/Zipcode Phone Number [facility] [address] [place] [address] CENTER Prepare Leuko-Red RBC (06/02/2020 11:54 PM CDT)Only the most recent of3 results within the time period is included. Pathologist Sig nature CROSSMATCH COMPATIBLE SAFETRACE TX Unit ABO O Pos SAFETRACE TX UNIT NUMBER [id number] SAFETRACE TX Status TX_TIMEINCHART SAFETRACE TX Blood Bank Product RED BLOOD CELLS SAFETRACE TX PRODUCT CODE [id number] SAFETRACE TX Specimen Other Performing Organization Address [facility] [place] Phone Number [facility] [place] Basic Metabolic Panel (06/02/2020 3:56 AM CDT)Only the most recent of12 results within the time period is included. Sodium 135 (L) 136 - 145 meq/L [facility] Potassium 4.7 3.5 - 5.1 meq/L [facility] Chloride 98 98 - 107 meq/L [facility] CO2 25 22 - 29 meq/L [facility] BUN 36 (H) 7 - 21 mg/dL [facility] Creatinine 6.44 (H) 0.57 - 1.25 [facility] mg/dL [facility] Glucose 96 70 - 105 mg/dL [facility] Calcium 8.6 8.4 - 10.2 [facility] mg/dL [facility] EGFR 9Comment: ESTIMATED mL/min/1.[address] [facility] GFR IS NOT [facility] ACCURATE [place] CREATININE CLEARANCE IN PREDICTING GLOMERULAR FILTRATION RATE. ESTIMATED GFR IS NOT APPLICABLE FOR DIALYSIS PATIENTS. Specimen Blood Narrative Performed At Endorsement Clerk ID - MARQUIS [facility] Performing Organization Address City/[facility] Centercode Phone Number [address] [phone] CENTER Transfuse Leuko-Red RBC (06/01/2020 10:33 PM CDT)Only the most recent of3 resultswithin the time period is included.POC-Glucose meter (06/01/2020 10:11 PM CDT) POC-Glucose Meter 99 70 - 110 mg/dL [facility] Comment: [facility] : TESTED AT [address], [address] CENTER : Endorsement Clerk/Bid Analyst ID = [id number] for Jerson Morales Specimen Blood Performing Organization Address [facility]/Zipcode Phone Number [address] [address] CENTER Hepatitis B surface antibody (06/01/2020 7:23 PM CDT) Pathologist Sig nature Hep B S Ab 27.2 (H) <8.0 mIU/mL [facility] Specimen Blood Narrative Performed At Endorsement Clerk ID - DB [facility] Performing Organization Address City/[facility]/Zipcode Phone Number [address] [address] CENTER Type and screen, automated (05/31/2020 9:50 AM CDT)Only the most recent of2 resultswithin the time period is included. Pathologist Sig nature ABO/RH AUTOMATED O POSITIVE [facility] (BEAK[facility]) [facility] Ab Scrn NEGATIVE [facility] Specimen Blood Performing Organization Address [facility]/Zipcode Phone Number [address] [address] Hemoglobin and hematocrit (05/31/2020 9:50 AM CDT)Only the most recent of6 resultswithin the time period is included. Pathologist Sig nature Hemoglobin 7.2 (L) 13.7 - 17.5 GM/DL [facility] Hematocrit 21.2 (L) 40.1 - 51.0 % [facility] Specimen Blood Narrative Performed At Endorsement Clerk ID - [id number] [facility] Performing Organization Address [facility] Centercoar Phone Number [facility] [address] [place] [address] [place] Hepatitis panel, acute (05/28/2020 2:19 PM CDT) Pathologist Sig nature Hep A IgM Nonreactive Nonreactive [facility] Hep B C IgM Nonreactive Nonreactive [facility] Hepatitis C Ab Reactive (A) Nonreactive [facility] HBsAg Screen Nonreactive Nonreactive [facility] Specimen Blood Narrative Performed At Endorsement Clerk ID - DB [facility] Performing Organization Address [facility] [place] Phone Number [address] [address] CENTER D-dimer (05/28/2020 3:59 AM CDT)Only the most recent of3 resultswithin the time period is included. Pathologist Sig nature D-Dimer, Quant 3.35 (H) <0.50 MG/L FEU [facility] Specimen Blood Narrative Performed At Intended Use: The D-Dimer Assay can be used [facility] to aid in the diagnosis of Deep Vein Thrombosis (DVT) and Pulmonary Embolism Disease (PED). In patients with low pre-test probability, various studies concerning STA Liatest D-dimer test have reported that with a cutoff value of 0.50 MG/L FEU, the Negative Predictive Value (NPV) regarding the exclusion of thrombosis is within 95-100% range. Performing Organization Address City/[facility] Centercode Phone Number [facility] [address] [place] [address] [place] REPORT OF PROCEDURE - ENDOSCOPY URL (05/27/2020 8:30 AM CDT) Narrative Performed At This result has an attachment that is no t available. Tissue Exam (05/27/2020 8:20 AM CDT) Case Report Surgical Pathology Report Case: [id number] [facility] Authorizing Provider: Myrna Tijerina MD Collected: 05/27/2020 08:[address] [facility] Ordering Location: [address] Received: 05/27/2020 02:50 PM [facility] Pathologist: Rosa Cisneros MD Specimens: A) - Biopsy, G astric, random biopsies R/O H. pylori B) - Biop sy, Gastroesophageal Junction, random biopsies R/O Islas's DIAGNOSIS A. 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 GASTROESOPHAGEAL JUNCTION, ENDOSCOPIC MUCOSAL BIOPS IES - SQUAMOCOLUMNAR MUCOSA WITH ACTIVE CARDITIS - NEGATIVE FOR SPECIALIZED ISLAS METAPLASIA Signing Pathologist Direct Phone Line: [phone] COMMENT . [facility] CPT Code(s) 96195 x2, 39254 [facility] CLINICAL HISTORY Anemia [facility] SPECIMEN SOURCE A. Random gastric biopsy, rule out H. Pylori [facility] B. Random GE junction biopsy, rule out Islas's [facility] GROSS DESCRIPTION A. Received in formalin labe led with the patient's name, medical record number and "gastric biopsy" are two pieces of rees-white mucosa- covered tissue that measure 0.5 x 0.3 x 0.2 cm in aggregate. The sp [facility] ecimen is submitted in toto following filtration in ca ssette A1. [facility] B. Received in formalin labe led with [...] inflammation is present. The oxyntic mucosa s [facility] DESCRIPTION hows no significant inflamma tion. Warthin stain for Helicobacter pylori is negative. There is no dysplasia or carcinoma. [facility] [place] B. Section shows gastroesoph ageal junctional mucosa and squamous (eosphageal) mucosa. The squamous (esophageal) component of GE junctional mucosa shows intercellular edema and elongated vascular papilla e and the columnar mucosa sh ows chronic inflammation with rare neutrophils. No goblet cell metaplasia is seen. SPECIAL STUDIES The interpretation of this c ase included the use of immunohistochemistry or special stains. [facility] Control Slides Examined: In -house known positive controls were evaluated along with the test tissue. These control slides run alongside of the patients sample show appropriate staining. [facility] antony and negative controls when available are evaluated Immunohistochemistry technic al testing was performed at [facility], Pathology Laboratory where it was developed and its performance characteristics were determined. It has not be en cleared or approved by [facility] U.S. Food and Drug Administration. The FDA has determined that such clearance or approval is not necessary. The test is used for clinical purposes. It should not be regarde d as investigational or for research. This laboratory is certified under the Clinical Laboratory Improvement Amendments of 1988 (CLIA-88) as qualified to perform high complexity clinical laboratory testing. Gross assessment [facility] was performed at [facility] Pathology, [address] [place] [id number], Technical [facility] component was [facility] performed at Pathology, [address] [place] [id number], Professional [facility] component was [facility] performed at Pathology, [address] [place] [id number], Specimen Tissue - Gastric biopsy sample (specimen ) Tissue specimen (specimen) - Biopsy, Gas troesophageal Junction Performing Organization Address City/State/Zipcode Phone Number [facility] [address] [place] [address] CENTER Manual Differential (05/27/2020 3:40 AM CDT) % Neutros (manual) 63 % [facility] % Lymphs (manual) 17 % [facility] % Monos (manual) 4 % [facility] % Eos (manual) 3 % [facility] % Baso (manual) 1 % [facility] % Metamyelo (manual) 3 (H) 0 - 0 % [facility] % Bands (manual) 3 0 - 10 % [facility] % Atypical Lymphs 6 (H) 0 - 0 % [facility] # Neutros (manual) 7.12 1.80 - 8.00 [facility] # Lymphs (manual) 1.92 1.48 - 4.50 [facility] # Monos (manual) 0.45 0.00 - 1.30 [facility] # Eos (manual) 0.34 0.00 - 0.50 [facility] # Baso (manual) 0.11 0.00 - 0.20 [facility] # Metamyelo (manual) 0.34 (H) 0.00 - 0.00 [facility] # Bands (manual) 0.3 0.0 - 0.8 [facility] # Atypical Lymphs 0.68 (H) 0.00 - 0.00 [facility] Total Counted 100 [facility] Bands plus Segmented 7.46 [facility] nRBC (manual) 1 (H) 0 - 0 /100 WBC [facility] WBC Morphology Normal [facility] Platelet Morphology Normal [facility] Anisocytosis 1+ few [facility] Ovalocytes 1+ few [facility] Specimen Blood Performing Organization Address City/[facility] Centercode Phone Number [address] [address] CENTER TRANSFUSION SERVICE REPORT - SCAN (05/26/2020 6:21 PM CDT)Only the most recent of2 resultswithin the time period is included. Narrative Performed At This result has an attachment that is no t available. Hepatitis C PCR, Quantitative (05/26/2020 12:26 PM CDT) HCV PCR, HCV RNA not HCV RNA not [facility] Quantitative detected detected [facility] Specimen Blood Narrative Performed At This test uses a Real-Time Polymerase Chain [facility] Reaction (RT-PCR) methodology and was performed using [employer] Ampliprep/[employer] TaqMan HCV test kit version 2.0 ([employer]). Reportable range for this assay is 15 - 100,000,000 IU per mL (1.18 - 8.00 Log IU/mL). Performing Organization Address [facility] Centercoar Phone Number [address] [address] CENTER TSH/Free T4 If Indicated (05/25/2020 7:14 PM CDT) Pathologist Sig nature TSH 3.581 0.350 - 4.940 uIU/mL [facility] Specimen Blood Narrative Performed At Endorsement Clerk ID - JR F [facility] Performing Organization Address City/[facility]/Zipcode Phone Number [address] [address] CENTER Prothrombin time/INR (05/25/2020 11:42 AM CDT) Pathologist Sig nature Protime 14.6 (H) 11.9 - 14.2 seconds [facility] INR 1.17 <=5.90 [facility] Specimen Blood Narrative Performed At Effective 01/16/2019: PT Reference Range [facility] Change New: 11.9-14.2 Previous: 11.7-14.7 RECOMMENDED COUMADIN/WARFARIN INR THERAPY RANGES STANDARD DOSE: 2.0-3.0 Includes: PROPHYLAXIS for venous thrombosis, systemic embolization; TREATMENT for venous thrombosis and/or pulmonary embolus. HIGH RISK: Target INR is 2.5-3.5 for patients wiht mechanical heart valves. Performing Organization Address City/[facility] Centercode Phone Number [address] [address] CENTER Lactate dehydrogenase (LDH) (05/25/2020 11:42 AM CDT) Pathologist Sig nature LDH 341 (H) 125 - 220 U/L [facility] Specimen Blood Narrative Performed At Endorsement Clerk ID - JR Crump [facility] Performing Organization Address City/[facility] Centercode Phone Number [address] [address] CENTER Peripheral Blood Smear - Path Review (05/25/2020 3:42 AM CDT) Pathologist Review Macrocytic anemia, [facility] anisopoikilocytosis, MEDICAL CENTER with rare schistocytes (0.8 per HPF). WBCs with mild left shift, including occasional myeloid precursors, no blasts seen. Few hypersegmented neutrophils. Thrombocytopenia with unremarkable morphology. Pathologist: Maddie Leon [facility] Bebeto Dsouza [facility] Specimen Blood Performing Organization Address City/[facility] Centercode Phone Number [address] [address] CENTER Troponin I (05/25/2020 3:42 AM CDT)Only the most recent of5 resultswithin the time period is included. Pathologist Sig nature Troponin I 0.46 (HH) 0.00 - 0.03 ng/mL [facility] Specimen Blood Narrative Performed At Troponin I (TnI) levels must be interpreted [facility] in the context of the [...] acidosis, acute neurological disease, and persistent tachyarrhythmia. Endorsement Clerk ID - DB Performing Organization Address [facility] Centercode Phone Number [address] [address] CENTER Lactic acid, venous (05/25/2020 3:42 AM CDT)Only the most recent of3 results within the time period is included. Pathologist Sig nature Lactate, Venous 0.42 (L) 0.50 - 2.20 [facility] mmol/L [facility] Specimen Blood Narrative Performed At Endorsement Clerk ID - DB [facility] Performing Organization Address [facility] [place], [place] Phone Number [address] [address] CENTER Reticulocyte count (05/25/2020 3:42 AM CDT) Pathologist Sig nature % Retic 1.5 0.5 - 1.8 % [facility] Specimen Blood Narrative Performed At Endorsement Clerk ID - [id number] [facility] Performing Organization Address [facility] Phone Number [address] [address] CENTER Iron, TIBC, % sat. (without ferritin) (05/25/2020 3:41 AM CDT) Pathologist Sig nature Iron 118.0 40.0 - 160.0 [facility] ug/dL [facility] TIBC 170 (L) 250 - 450 ug/dL [facility] Iron % Saturation 69 (H) 20 - 55 % [facility] Specimen Blood Narrative Performed At Endorsement Clerk ID - MARQUIS [facility] Performing Organization Address City/[facility]/Zipcode Phone Number [facility] [address] [place], [place] [phone] CENTER Haptoglobin (05/25/2020 3:41 AM CDT) Pathologist Sig nature Haptoglobin 172 14 - 258 mg/dL [facility] Specimen Blood Narrative Performed At Endorsement Clerk ID - JR Crump [facility] Performing Organization Address City/[facility]/Zipcode Phone Number [facility] [address] [place] [phone] CENTER Ferritin (05/25/2020 3:41 AM CDT) Pathologist Sig nature Ferritin 10,294.32 (H) 5.00 - 275.00 [facility] ng/mL [facility] Specimen Blood Narrative Performed At Endorsement Clerk ID - MARQUIS [facility] Performing Organization Address City/[facility] Phone Number [facility] [address] [place] [phone] [place] XR chest 1 view portable / bedside [...] 4:42:11 Performing Organization Address City/State/Zipcode Phone Number [facility] US testicular (scrotum) (05/25/2020 1:24 AM CDT) Specimen Narrative Performed At FINAL REPORT [employer] TECHNIQUE: Grayscale, color Doppler, and spectral Doppler [...] Pathologist Sig nature HBsAg Screen Nonreactive Nonreactive [facility] Specimen Blood Narrative Performed At Specimen is considered negative for HBsAg. [facility] Performing Organization Address City/State/Zipcode Phone Number [facility] [address] [place] [address] CENTER Drug Test, General Toxicology, Urine (05/24/2020 6:40 PM CDT) Acetone(Quest) None Detected [facility] Methanol([facility]) None Detected [facility] Drug Test,Genrl see note [facility] Tox,U Comment: [facility]POR[facility] The following compounds were detected: Cotinine (Nicotine Metabolite) Morphine Acetaminophen Hydromorphone Hydrocodone Benzoylecgonine (Cocaine Metabolite) Cyclobenzaprine For a list of compounds and limits of detection go to: http://education.tabulate/faq/HML400 ISOPROPANOL None Detected [facility] ETHANOL None Detected [facility] Comment: INC[facility]PORATED Volatile Limit of Detectio n: 5 mg/dL This test was developed and its analytical performance characteristics have been determined by [employer] [place], [place]. It has not been cleared or approved by the U.S. Food and Drug Administration. This assay has been validated pursuant to the CLIA regulations and is used for clinical purposes. Specimen Urine Narrative Performed At Performing Lab [facility] [address], [address] [facility] [place] [address] Mckenna Lopez MD, PhD Performing Organization Address City/[facility]/Zipcode Phone Number [facility] [place] [address] INCORPORATED [id number] [facility] B-type Natriuretic Factor (BNP) (05/24/2020 5:32 PM CDT)Only the most recent of 2 resultswithin the time period is included. Pathologist Sig nature BNP 202 (H) 0 - 100 pg/mL [facility] Specimen Blood Narrative Performed At Endorsement Clerk ID - NATASHA [facility] Performing Organization Address City/State/Zipcode Phone Number [facility] [address] [place] [address] CENTER 2D Echo W/Doppler(CW/PW/Color) (05/24/2020 9:17 AM CDT) Pathologist Sig nature Ejection Fraction [facility] ECHO [facility] Specimen Narrative Performed At Transthoracic Echocardiography Report (T TE) [facility] Demographics Patient Name THIERRY PADILLA Date of Study 05/24/2020 KYLIE Gender Male Visit Number [id number] Race Unknown Room Number 7217 Number Date of 1965 Referring Physician Age 55 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(s) 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 [employer] Owen Valdivia Interpreting Renato barr Physician Procedure [...] Study 05/24/2020 KYLIE Gender Male Visit Number [id number] Race Unknown Room N [facility] 7217 Number Date of 1965 Referr ing Physician Age 55 year(s) 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 [place] 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 [employer] Owen Valdivia Intermckenna reting Greg Roche MD [...] CDT) Pathologist Sig nature ABO Grouping O [facility] DICAL [place] Rh Factor POS [facility] Specimen Blood Performing Organization Address City/[facility]/Zipcode Phone Number [address] [address] Vitamin B12 and Folate (05/24/2020 3:48 AM CDT) Pathologist Sig [facility] Vitamin B12 237 213 - 816 pg/mL [facility] Folate 4.00 (L) >=7.00 ng/mL [facility] Specimen Blood Narrative Performed At Endorsement Clerk ID - MARQUIS [facility] Performing Organization Address City/[facility] Phone Number [address] [address] [place] HIV-1 Antigen with HIV-1/2 Antibody (05/24/2020 3:48 AM CDT) Pathologist Sig [facility] HIV-1 Antigen with Nonreactive Nonreactive [facility] HIV 1&2 Antibody [facility] Specimen Blood Performing Organization Address City/[facility] Cent[facility]ode Phone Number [address] [address] [place] Hemoglobin A1c (05/24/2020 3:48 AM CDT) Pathologist Sig [facility] Hemoglobin A1C 5.8 4.3 - 6.1 % [facility] Specimen Blood Performing Organization Address City/[facility] Centercode Phone Number [address] [address] CENTER Blood Culture - Routine (Right Venipuncture) (05/24/2020 3:34 AM CDT)Only the most recent of2 resultswithin the time period is included. Pathologist Sig nature Result No growth in 5 days [facility] Specimen Blood - Entire right upper arm (body str ucture) Performing Organization Address City/State/Zipcode Phone Number [facility] [address] [place] [address] CENTER SARS-CoV2/RT-PCR (Symptomatic ONLY) (05/24/2020 2:33 AM CDT)Only the most recent of2 resultswithin the time period is included. SARS-COV2/RT-PCR Negative Not Detected, [facility] Negative, See [facility] external report CENTER for linked test [facility]COV[facility]2 [facility] Specimen Other - Nasopharyngeal wall structure (b alicia structure) Narrative Performed At Negative results do not preclude SARS-CoV-2 [facility] infection and should not be [...] the Act. Fact Sheet for Healthcare Providers: https://www.[employer]/Documents/Xpert%20Xpre ss%20SARS%20CoV-2/Fact%20Sheets/302-4282%20SAR S-COV-2%20HEALTHCARE%20PROVIDERS%20FACT%20SHEE T.pdf Fact Sheet for Healthcare Patients: https://www.[facility]/Documents/Xpert%20Xpre ss%20SARS%20CoV-2/Fact%20Sheets/302-3801%20SAR S-COV-2%20PATIENT%20FACT%20SHEET.pdf Performing Laboratory: [facility] [address] [place] [address]. [place] [address] Performing Organization Address City/[facility]/Zipcode Phone Number [facility] [address] [place], [place] [phone] [place] Blood gas, venous (05/24/2020 1:28 AM CDT) Pathologist Sig nature pH, Raquel 7.27 (L) 7.32 - 7.42 [facility] pCO2, Raquel 26 (L) 41 - 51 mmHg [facility] pO2, Raquel 63 (H) 25 - 40 mmHg [facility] O2 Sat, Raquel 89.7 (H) 40.0 - 70.0 % [facility] HCO3, Raquel 12 (L) 21 - 29 mmol/L [facility] Base Excess, Raquel -14.0 (L) -2.0 - 3.0 [facility] mmol/L [facility] Patient Temperature 37.0 C [facility] FIO2 100.0 % [facility] Specimen Blood Performing Organization Address City/[facility] Centercode Phone Number [facility] [address] [place] [address] [place] EKG-SCANNED (05/24/2020) Narrative Performed At This result has an attachment that is no t available. Ordered by an unspecified provider. after 07/11/2019 Advance Directives For more information, please contact: [phone] Code Status Date Activated Date Inactivated Comments Full Code 05/24/2020 1:02 AM 06/03/2020 4:31 PM This code status was determined by: Patient
--- OUTSIDE RECORDS SUMMARY | 2020-07-11 12:54 | XMS REPORT | Continuity of Care Document ---
:1965 Author Organization [facility] t Address [address] [place] [address] Care Team Providers Name Role Phone Kwaku Miguel MD Attending Clinician [phone] Donna Nicholas MD Attending Clinician David LOWERY, P. Attending Clinician kAilah Matthews MD Attending Clinician Shea Luciano MD Attending Clinician Akbar Monsalve MD Attending Clinician Unavailable Ariana LOWERY, Yaakov Attending Clinician KWAKU MIGUEL Attending Clinician Unavailable Verónica Delgadillo DO Attending Clinician KWAKU MIGUEL Admitting Clinician Unavailable Payers Payer Name Policy Type Policy Effective Date Expiration Date Sour ce Number MEDICAREMEDICARE A [id number] 2020 ANALILIA [place] [id number] 2019- 00:00:00 - Medical PresentMedicare Center MEDICAIDMEDICAID OF [id number] 2020 ANALILIA [place] [id number] 00:00:00 - Medical 0-PresentMedicaid Center Problems Condition Condition Condition Status Onset Resolution Last Treating Co mments Source Name Details Category Date Date Treatment Clinician Date Hyperkalem Hyperkalem Disease Active 2019-[address] [facility] 0-04 Donal - 00:00: Medical 00 Center PINA (acute PINA (acute Disease Active [facility] Allergies, Adverse Reactions, Alerts Allergy Allergy Status Severity Reaction(s) Onset Inactive Treating Comm ents Source Name Type Date Date Clinician Gabapent Drug Active 2019-[address] [facility]04 [facility] - [facility]: Medical 00 [place] Social History Social Habit Start Date Stop Date Quantity Comments Source Sex Assigned At [facility] Smoking Status Start Date Stop Date Source Former smoker 2020-05-27 00:00:00 2020-05-27 00:00:[address] [facility] Medications Ordered Filled Start Stop Current Ordering [...] St en-codeine 0-13 06-12 tablet by Clare felix - (TYLENOL 00:00: 23:59 mouth Medical #3) 300-30 00 :00 every 6 Center mg per (six) tablet hours as needed for Pain for up to 10 days. Max Daily Amount: 4 tablets Immunizations Ordered Immunization Filled Immunization Date Status Commen ts Source Name Name Influenza Four-QIV 2020-05-[address] [facility] PF 3YR+ 00:00:00 Medical Center Vital Signs Vital Name Observation Time Observation Value Comments Source Systolic blood 2020-06-03 11:45:00 129 mm[Hg] [facility] Diastolic blood 2020-06-03 11:45:00 81 mm[Hg] [facility] Heart rate 2020-06-03 11:45:00 80 /min [facility] Body temperature 2020-06-03 11:45:00 36.72 Gissell [facility] Respiratory rate 2020-06-03 11:45:00 19 /min [facility] Oxygen saturation in 2020-06-03 11:45:00 97 /min [facility] Arterial blood by Medical Ce nter Pulse oximetry Body weight 2020-06-03 04:52:00 69.9 kg [facility] BMI 2020-06-03 04:52:00 24.88 kg/m2 [facility] Body height 2020-05-24 00:30:00 167.6 cm [facility] Procedures Procedure Date / Time Performed Performing Clinician Sourc e HEMODIALYSIS INPATIENT 2020-06-03 12:01:00 Marlo Hrenandez [facility] MAGNESIUM 2020-06-03 04:07:00 Kanwal Sonido [facility] PT/APTT 2020-06-03 04:07:00 Kanwal Sonido [facility] HEPATIC FUNCTION PANEL 2020-06-03 04:07:00 Kanwal Sonido [facility] CALCIUM, IONIZED 2020-06-03 04:07:00 [facility] COMPREHENSIVE METABOLIC 2020-06-03 04:07:00 David [facility] PHOSPHORUS 2020-06-03 04:07:00 [facility] CBC W/PLT COUNT & AUTO 2020-06-03 04:07:00 Kanwal Sonido [facility] (CELLAVISION MANUAL DIFF) 2020-06-03 04:07:[address] [facility] PREPARE LEUKO-REDUCED RBC 2020-06-02 23:54:00 Delia Matthews [facility] BASIC METABOLIC PANEL (7) 2020-06-02 03:56:[address] [facility] MAGNESIUM 2020-06-02 03:56:00 Kanwal [facility] PT/APTT 2020-06-02 03:56:00 Kanwal [facility] HEPATIC FUNCTION PANEL 2020-06-02 03:56:00 Kanwal Sonido [facility] CBC W/PLT COUNT & AUTO 2020-06-02 03:56:00 Sonido Schofield [facility] (CELLAVISION MANUAL DIFF) 2020-06-02 03:56:[address] [facility] TRANSFUSE LEUKO-REDUCED 2020-06-01 22:33:30 Delia Matthews [facility] RED BLOOD CELLS [facility] POCT-GLUCOSE METER 2020-06-01 22:11:00 Delia Matthews [facility] HEPATITIS B SURFACE 2020-06-01 19:23:00 [facility] BASIC METABOLIC PANEL (7) 2020-06-01 04:32:[address] [facility] MAGNESIUM 2020-06-01 04:32[facility] 2020-06[facility]01 04:[facility]EL 2020-06-01 04:32:00 [facility] CBC W/PLT COUNT & AUTO 2020-06-01 04:32:00 [facility] (CELLAVISION MANUAL DIFF) 2020-06-01 04:32:00 [facility] HEMOGLOBIN AND HEMATOCRIT 2020-05-31 09:50:00 Cassie [facility] [place] TYPE AND SCREEN, 2020-05-31 09:50:[address] [facility] BASIC METABOLIC PANEL (7) 2020-05-31 05:34:00 Kanwal [facility] MAGNESIUM 2020-05-31 05:34:[facility] 2020-05-31 05:34:00 [facility] HEPATIC FUNCTION PANEL 2020-05-31 05:34:00 [facility] CBC W/PLT COUNT & AUTO 2020-05-31 05:34:00 [facility] (CELLAVISION MANUAL DIFF) 2020-05-31 05:34[facility]EL (7) 2020-05-30 04:39:[facility] MAGNESIUM 2020-05-30 04:39:[facility]TT 2020-05-30 04:39:00 [facility] HEPATIC FUNCTION PANEL 2020-05-30 04:39:00 Kanwal [facility] CBC W/PLT COUNT & AUTO 2020-05-30 04:39:00 Demargema [facility] (CELLAVISION MANUAL DIFF) 2020-05-30 04:39:00 Demargema [facility] BASIC METABOLIC PANEL (7) 2020-05-29 04:50:00 [facility] MAG[facility]IUM 2020-05-29 04:50:00 Sergema [facility] PT/APTT 2020-05-29 04:50:00 Sergema [facility] HEPATIC FUNCTION PANEL 2020-05-29 04:50:00 Sergema [facility] PHOSPHORUS 2020-05-29 04:50:00 Christofer [facility] CBC W/PLT COUNT & AUTO 2020-05-29 04:50:00 Demargema [facility] (CELLAVISION MANUAL DIFF) 2020-05-29 04:50:00 Kanwal [facility] HEPATITIS PANEL, ACUTE 2020-05-28 14:19:00 Delia Matthews [facility] D-DIMER 2020-05-28 03:59:00 Delia Matthews [facility] BASIC METABOLIC PANEL (7) 2020-05-28 03:59:00 SerSonido ribeiro [facility] MAGNESIUM 2020-05-28 03:59:00 Sergema [facility] PT/APTT 2020-05-28 [facility]:59[facility] 2020-05-28 03:59:00 Sergema [facility] COMPREHENSIVE METABOLIC 2020-05-28 03:59:00 Delia Matthews [facility] CBC W/PLT COUNT & AUTO 2020-05-28 03:59:00 Sonido [facility]ield [facility] DIFFERENTIAL [facility] (CELLAVISION MANUAL DIFF) 2020-05-28 03:59:00 Sonido Schofield [facility] REPORT OF PROCEDURE - 2020-05-27 08:30:04 Myrna Monsalve [facility] ENDOSCOPY [facility] TISSUE EXAM 2020-05-27 08:20:00 Myrna Monsalve [facility] UPPER ENDOSCOPY,BIOPSY 2020-05-27 07:59:00 Bello [facility] BASIC METABOLIC PANEL (7) 2020-05-27 03:40:[address] [facility] MAGNESIUM 2020-05-27 03:40:00 Kanwal [facility] PT/APTT 2020-05-27 03:40:00 Kanwal [facility] HEPATIC FUNCTION PANEL 2020-05-27 03:40:00 Kanwal Sonido [facility] CBC W/PLT COUNT & AUTO 2020-05-27 03:40:00 Sonido Schofield [facility] DIFFERENTIAL [facility] (MANUAL DIFFERENTIAL) 2020-05-27 03:40:00 Delia Matthews [facility] TRANSFUSION SERVICE 2020-05-26 18:21:41 Provider, Christopher [facility] - SCAN [facility] HEPATITIS C PCR, 2020-05-26 12:26:00 Vee Hernandez [facility] D-DIMER 2020-05-26 12:26:00 Vee Hernandez [facility] BASIC METABOLIC PANEL (7) 2020-05-26 03:50:[address] [facility] MAGNESIUM 2020-05-26 03:50:00 SerSonido ribeiro [facility] PHOSPHORUS 2020-05-26 03:50:[facility] PT/APTT 2020-05-26 03:50:[facility] HEPATIC FUNCTION PANEL 2020-05-26 03:50:00 Sergema [facility] CALCIUM, IONIZED 2020-05-26 03:50:00 Sergema [facility] COMPREHENSIVE METABOLIC 2020-05-26 03:50:[address] [facility] CBC W/PLT COUNT & AUTO 2020-05-26 03:50:00 [facility] (CELLAVISION MANUAL DIFF) 2020-05-26 03:50:00 Kanwal [facility] PREPARE LEUKO-REDUCED RBC 2020-05-25 23:54:00 Kanwal [facility] TSH/FREE T4 IF INDICATED 2020-05-25 19:14:00 Vee Hernandez [facility] HEMOGLOBIN AND HEMATOCRIT 2020-05-25 19:14:00 Av Layo [facility] TRANSFUSION SERVICE 2020-05-25 18:01:[address] [facility] [place] [place] HEMOGLOBIN AND HEMATOCRIT 2020-05-25 11:42:00 Ley Layo [facility] LACTATE DEHYDROGENASE 2020-05-25 11:42:[address] [facility] (LDH) [facility] PROTHROMBIN TIME/INR 2020-05-25 11:42:00 [place] [facility] D-DIMER 2020-05-25 11:42:00 [place] [facility] CBC W/PLT COUNT & AUTO 2020-05-25 11:42:00 Av Layo [facility] DIFFERENTIAL [facility] TROPONIN I 2020-05-25 03:42:00 Kanwal [facility] MAGNESIUM 2020-05-25 03:42:00 Kanwal [facility] PHOSPHORUS 2020-05-25 03:42:00 Kanwal [facility] HEPATIC FUNCTION PANEL 2020-05-25 03:42:00 Kanwal [facility] CALCIUM, IONIZED 2020-05-25 03:42:00 Kanwal [facility] LACTIC ACID, VENOUS 2020-05-25 03:42:00 Kanwal [facility] COMPREHENSIVE METABOLIC 2020-05-25 03:42:00 [facility] RETICULOCYTE COUNT 2020-05-25 03:42:00 [facility] PERIPHERAL BLOOD SMEAR - 2020-05-25 03:42:00 Bala Genao [facility] - PATHOLOGIST REVIEW [facility] CBC W/PLT COUNT & AUTO 2020-05-25 03:42:00 Kanwal [facility] DIFFERENTIAL [facility] (CELLAVISION MANUAL DIFF) 2020-05-25 03:42:00 Kanwal [facility] PT/APTT 2020-05-25 03:41:00 [facility] IRON, TIBC, % SAT. 2020-05-25 03:41:00 [facility] 2020-05-25 03:41:00 [facility] HAPTOGLOBIN 2020-05-25 03:41:00 [facility] XR CHEST 1 VIEW 2020-05-25 02:00:00 [facility] PORTABLE/BEDSIDE [facility] US TESTICULAR (SCROTUM) 2020-05-25 01:24:00 [facility] TRANSFUSE LEUKO-REDUCED 2020-05-25 01:22:54 [facility]LOOD CELLS [facility] PREPARE LEUKO-REDUCED RBC 2020-05-24 21:55:00 Sonido Schofield [facility] HEMOGLOBIN AND HEMATOCRIT 2020-05-24 20:40:00 Layo Ley [facility] HEPATITIS B SURFACE 2020-05-24 20:40:00 Marlo Hernandez [facility] DRUG TEST, GENERAL 2020-05-24 18:40:00 Layo Ley [facility] - TOXICOLOGY, URINE [facility] TROPONIN I 2020-05-24 17:32:00 Kanwal [facility] B-TYPE NATRIURETIC FACTOR 2020-05-24 17:32:00 Sonido Schofield [facility] (BNP) [facility] TROPONIN I 2020-05-24 12:30:00 Kanwal [facility] HEMOGLOBIN AND HEMATOCRIT 2020-05-24 12:30:00 Layo Ley [facility] BASIC METABOLIC PANEL (7) 2020-05-24 12:30:00 Layo Ley [facility] 2D ECHO W/ DOPPLER 2020-05-24 09:17:10 Santy Cardona [facility] (CW/PW/COLOR) [facility] HEMOGLOBIN AND HEMATOCRIT 2020-05-24 08:02:00 Adela Miguel [facility] TROPONIN I 2020-05-24 08:02:00 Kanwal [facility] BASIC METABOLIC PANEL (7) 2020-05-24 08:02:00 Layo Ley [facility] PHOSPHORUS 2020-05-24 08:02:00 [facility]-REDUCED 2020-05-24 07:31:[address] [facility] RED BLOOD CELLS [facility] LACTIC ACID, VENOUS 2020-05-24 03:57:00 Kanwal [facility] ABORH, MANUAL 2020-05-24 03:57:00 Lionel, Vidhiruma Diaz [facility] CALCIUM, IONIZED 2020-05-24 03:56:00 Kanwal [facility] BASIC METABOLIC PANEL (7) 2020-05-24 03:48:00 [facility] MAGNESIUM 2020-05-24 03:48:00 Sergema [facility] PHOSPHORUS 2020-05-24 03:48:00 Sergema [facility] PT/APTT 2020-05-24 03:48:00 Kanwal [facility] HEPATIC FUNCTION PANEL 2020-05-24 03:48:00 Kanwal [facility] HEMOGLOBIN A1C 2020-05-24 03:48:00 Santy [facility] HIV-1 ANTIGEN WITH 2020-05-24 03:48:00 [facility]2 ANTIBODY [facility] VITAMIN B12 AND FOLATE 2020-05-24 03:48:00 [facility] CBC W/PLT COUNT & AUTO 2020-05-24 03:48:00 [facility] DIFFERENTIAL [facility] BLOOD CULTURE 2020-05-24 03:34:00 Sergema [facility] PT/APTT 2020-05-24 02:59:00 Sergema [facility] TYPE AND SCREEN, 2020-05-24 02:59:[address] AUTOMATED [facility] BLOOD CULTURE 2020-05-24 02:58:00 [facility]OV[facility] ([facility] & 2020-05-24 02:33:00 Sergema [facility] - REF LABS) [facility] XR CHEST 1 VIEW 2020-05-24 01:37:00 Kanwal Sonido [facility] - PORTABLE/BEDSIDE [facility] BASIC METABOLIC PANEL (7) 2020-05-24 01:29:00 Sonido Schofield I [facility] MAGNESIUM 2020-05-24 01:29:[address] [facility] PHOSPHORUS 2020-05-24 01:29:00 [facility] HEPATIC FUNCTION PANEL 2020-05-24 01:29:[facility] LACTIC ACID, VENOUS 2020-05-24 01:29:00 [facility] L ukes [facility] TROPONIN I 2020-05-24 01:29:00 [facility] CBC W/PLT COUNT & AUTO 2020-05-24 01:29:00 [facility] DIFFERENTIAL [facility] BLOOD GAS, VENOUS 2020-05-24 01:28:00 [facility] B-TYPE NATRIURETIC FACTOR 2020-05-24 01:27:00 [facility] Sonido [facility] (BNP) [facility] REPORT OF PROCEDURE - 2020-05-24 00:00:00 Provider, Christopher [facility] - ENDOSCOPY SCAN Scanning [facility] SARS-COV2/RT-PCR ([facility] & 2020-02-22 10:34:00 [facility] - REF LABS) [facility] Plan of Care Planned Activity Planned Date Details Comments Source Future Scheduled 2020-05-[address] [facility] 00:00[facility]00 (WELCOME TO [facility] MEDICARE) [code = Medicare IPPE (WELCOME TO MEDICARE)] Future Scheduled [address] [facility] (procedure) [code = [facility] Center 66036228] Future Scheduled [address] [facility] - Test 00:00:00 malignant neoplasm Medical C enter of colon (procedure) [code = 337161974] Encounters Start End Encounter Admission Attending Care Care Encounter Source Date/Time Date/Time Type Type Clinicians Facility Department ID 2020-05-08 2020-05-08 Emergency ElieRUST [id number] 14:38:00 18:28:00 Renata Ramos [id number] Jennifer [id number] Dulce [id number] Results Test Description Test Time Test Comments Results Result Sourc e Comments HEMODIALYSIS 2020-06-03 Alon Garrett [facility] INPATIENT 12:01:00 RN 06/03/2020 - Medic al [...] K/CU MM L MPV (test code = 23074-3) 10.8 fL 9.4-12.4 nRBC (test code = 413) 1 0- 0 /100 WBC H Lab Interpretation (test code = 45370-8) [facility]normal [facility] [id number] 10:02:00 Test Item Value Reference Range Interpretation [...] = 3438) FANTA (test code = FANTA) [facility] ID - Chris Mtz comments: Slide comments: Lab Interpretation (test Abnormal code = 27278-3) [facility] W/PLT COUNT & AUTO [id number] 10:02:00 Test Item Value Reference Range Interpretation [...] CONCENTRATION Decreased (CELLAVISION)(BEAKER) (test code = 3438) [facility] ID - Chris Mtz comments: Slide comments:Comprehensive metabolic [id number] 05:15:00 Test Item Value Reference Range Interpretation Comments Protein, Total (test 6.5 6.0- 8.3 gm/dL Speci men slightly code = 2885-2) hemolyzed Albumin (test code = 3.3 g/dL 3.5-5 L Specime n slightly 11748-2) hemolyzed Alkaline Phosphatase 71 U/L 40-150 (test [...] Glucose (test code = 89 mg/dL 70-105 5-7) Calcium (test code = 9.2 mg/dL 8.4-10.2 94063-9) AST (test code = 42 U/L 5-34 H Specimen sl ightly 1920-8) hemolyzed ALT (test code = 14 U/L 6-55 Specimen sl ightly 1742-6) hemolyzed EGFR (test code = 6 mL/min/1.73 [place] [address]-2) NOT ACCURATE CREATININE CLEARANCE IN PREDICTING GLOMERULAR FILTRATION RATE . ESTIMATED GFR I S NOT APPLICABLE FOR DIALYSIS PATIENTS. FANTA (test code = FANTA) [facility] ID - BONILLA M Lab Interpretation Abnormal (test code = 61843-3) [facility] MET[facility]OLIC [id number] 05:15:00 Test Item Value Reference Range Interpretation [...] S NOT APPLICABLE FOR DIALYSIS PATIEN TS. [facility] function [id number] 05:03:00 Test Item Value Reference Range Interpretation Comments Protein, Total (test 6.5 6.0- 8.3 gm/dL Speci men code = 2885-2) slightly hemolyzed Albumin (test code = 3.3 g/dL 3.5-5 L [place] n 29847-5) slightly hemolyzed Total Bilirubin (test 0.3 mg/dL [...] slightly hemolyzed FANTA (test code = FANTA) Behavioral Health Associate [facility] Lab Interpretation Abnormal (test code = 25413-4) [facility] Center[facility]esium2020-10-14 05:03:00 Test Item Value Reference Range Interpretation Comments Magnesium (test code = 2.0 mg/dL 1.6-2.6 Speci men 47975-5) slightly hemolyzed FANTA (test code = FANTA) [facility] Health Associate [facility] Lab Interpretation Normal (test code = 90788-6) [facility] Center[facility]2020-10-14 05:03:00 Test Item Value Reference Range Interpretation Comments Phosphorus (test code 4.3 mg/dL 2.3-4.7 Specim en = 2777-1) slightly hemolyzed FANTA (test code = FANTA) [facility] Health Associate [facility] Lab Interpretation Normal (test code = 76774-9) [facility] CenterMAGNESIUM2020-10-14 05:03:00 Test Item Value Reference Range Interpretation Comments MAGNESIUM (BEAKER) 2.0 mg/dL 1.6-2.6 Specimen slightly (test code = 627) hemolyzed [facility] ID - BONILLA [id number] 05:03:00 Test Item Value Reference Range Interpretation Comments PHOSPHORUS (BEAKER) 4.3 mg/dL 2.3-4.7 Specimen slightly (test code = 604) hemolyzed [facility] ID - BONILLA MHEPATIC FUNCTION [id number] 05:03:00 Test Item Value Reference Range Interpretation [...] Specimen slightly (test code = 347) hemolyzed [facility] ID - BONILLA [id number] 04:44:00 Test Item Value Reference Range Interpretation Comments Protime (test code = 14.1 11.9- 14.2 5902-2) seconds INR (test code = 1.12 <=5.90 6301-6) PTT (test code = 38.0 22.5- 36.0 H 10747-5) seconds FANTA (test code = FANTA) Effective 01/16/2019: PT Reference Range ChangeNew: 11.9-14.2 Previous: 11.7-14.7 RECOMMENDED COUMADIN/WARFARIN INR THERAPY RANGESSTANDARD DOSE: 2.0-3.0 Includes: PROPHYLAXIS for venous thrombosis, systemic embolization; TREATMENT for venous thrombosis and/or pulmonary embolus.HIGH RISK: Target INR is 2.5-3.5 for patients wiht mechanical heart valves. Lab Interpretation Abnormal (test code = 68681-5) [facility] Center[facility]/[id number] 04:44:00 Test Item Value Reference Range Interpretation [...] is2.5-3.5 for patients wiht mechanical heart valves.Calcium, [id number] 04:34:00 Test Item Value Reference Range Interpretation Comments Calcium, Ion (test code = 1994-3) 1.17 mmol/L 1.12-1.27 pH, Blood (test code = 22228-8) 7.44 [facility], [id number] 04:34:00 Test Item Value Reference Range Interpretation Comments CALCIUM IONIZED (BEAKER) (test 1.17 mmol/L 1.12-1.27 code = 698) PH, BLOOD (BEAKER) (test code = 7.44 1810) Prepare Leuko-Red [id number] 23:54:00 Test Item Value Reference Range Interpretation Comments CROSSMATCH (test code = 2264) COMPATIBLE Unit ABO (test code = O Pos 4826192) UNIT NUMBER (test code = [id number] 934-0) Status (test code = 3149810) TX_TIMEINCHART Blood Bank Product (test code RED BLOOD CELLS = 2263) PRODUCT CODE (test code = B4232F64 933-2) [facility] W/PLT COUNT & AUTO [id number] 07:51:00 Test Item Value Reference Range Interpretation [...] CONCENTRATION Decreased (CELLAVISION)(BEAKER) (test code = 3438) [facility] Associate ID - Abby Higgins comments: Slide comments:Basic Metabolic [id number] 05:22:00 Test Item Value Reference Range Interpretation [...] Calcium (test code = 8.6 mg/dL 8.4-10.2 43178-9) EGFR (test code = 9 mL/min/1.73 [place] [address]-7) NOT ACCURATE CREATININE CLEARANCE IN PREDICTING GLOMERULAR FILTRATION RATE . ESTIMATED GFR I S NOT APPLICABLE FOR DIALYSIS PATIENTS. FANTA (test code = FANTA) [facility] Associate ID - MONIQUEASI Lab Interpretation Abnormal (test code = 82614-6) [facility] Center[facility] METABOLIC [id number] 05:22:00 Test Item Value Reference Range Interpretation [...] S NOT APPLICABLE FOR DIALYSIS PATIEN TS. [facility] Associate ID - [id number] 04:52:00 Test Item Value Reference Range Interpretation Comments MAGNESIUM (BEAKER) (test code = 1.9 mg/dL 1.6-2.6 627) [facility] Associate ID - EDASIHEPATIC FUNCTION [id number] 04:52:00 Test Item Value Reference Range Interpretation [...] (test code = 15 U/L 6-55 347) [facility] Associate ID - EDASIPT/[id number] 04:20:00 Test Item Value Reference Range Interpretation [...] is2.5-3.5 for patients wiht mechanical heart valves.POC-Glucose [id number] 22:24:00 Test Item Value Reference Range Interpretation Comments POC-Glucose Meter (test 99 mg/dL 70-110 : TE STED AT [facility] code = 1538) [address] [facility], 770 30: Behavioral Health Associate/Techni connie ID = [id number] for Jerson Morales Lab Interpretation (test Normal code = 78981-6) [facility] [id number] 22:24:00 Test Item Value Reference Range Interpretation Comments POC-GLUCOSE METER 99 mg/dL 70-110 : TESTED A T [facility] 6720 ([facility]) (test code = BERTTEMO R [facility], 1538) [address]: Behavioral Health Associate/Techni connie ID = [id number] for Camille bolton Jerson Hepatitis B surface [id number] 20:25:00 Test Item Value Reference Range Interpretation Comments Hep B S Ab (test code = 27.2 <8.0 mIU/mL H 17634-8) [facility] (test code = FANTA) Behavioral Health Associate ID - DB Lab Interpretation (test Abnormal code = 30363-4) [facility] SURFACE [id number] 20:25:00 Test Item Value Reference Range Interpretation Comments HEPATITIS B SURFACE ANTIBODY 27.2 mIU/mL <8.0 H (BEAKER) (test code = 647) Behavioral Health Associate ID - DBDrug Test, General Toxicology, [id number] 11:06:00 Test Item Value Reference Interpretation Comments Range Acetone([facility]) None Detected (test code = 3053) Methanol([facility]) None Detected (test code = 3054) Drug Test,Genrl see note The followin g compounds were Tox,U (test detected: Co tinine code = 6088476) (Nicotine Me tabolite) Morphine Osvaldo taminophen Hydromorphone Hydrocodone Benzoylecgoni ne (Cocaine Metabolite) Cyclobenzaprine For a list of compounds an d limits of detection go to:http://educa tion.Drive.SG/faq /JNY353 ISOPROPANOL None Detected (test code = 6753891) ETHANOL (test None Detected Volatile code = 8862644) Limit of Det ection: 5 mg/dL This test was d eveloped and its analytical performancechar acteristics have been deter mined by [employer] [facility] [place], [place]. It hasnot been enoch ared or approved by the U.S. Food and DrugAdministrat ion. This assay has been validated pursuantto the CLIA regulations and is used for clinicalpurpose s. [facility]ANTA (test code Performing Lab = FANTA) 15 [facility], [address] [place] [address] [place] [address] Mckenna Lopez MD, PhD [facility] W/PLT COUNT & AUTO [id number] 08:11:00 Test Item Value Reference Range Interpretation [...] CONCENTRATION Decreased (CELLAVISION)(BEAKER) (test code = 3438) Behavioral Health Associate ID - Jonna Pascual comments: Slide comments:BASIC [...] S NOT APPLICABLE FOR DIALYSIS PATIEN TS. Behavioral Health Associate ID - BONILLA [id number] 05:45:00 Test Item Value Reference Range Interpretation Comments MAGNESIUM (BEAKER) (test code = 2.2 mg/dL 1.6-2.6 627) Behavioral Health Associate ID - BONILLA MHEPATIC FUNCTION [id number] 05:45:00 Test Item Value Reference Range Interpretation [...] (test code = 11 U/L 6-55 347) Behavioral Health Associate ID - BONILLA MPT/[id number] 05:17:00 Test Item Value Reference Range Interpretation [...] patients wiht mechanical heart valves.Type and screen, [id number] 11:24:00 Test Item Value Reference Range Interpretation Comments ABO/RH AUTOMATED (BEAKER) (test O POSITIVE code = 2260) Ab Scrn (test code = 890-4) NEGATIVE [facility] Center[facility]emoglobin and soyhqyxutb4166-88-28 09:57:00 Test Item Value Reference Range Interpretation Comments Hemoglobin (test code = 7.2 13.7- 17.5 GM/DL L 786-4) Hematocrit (test code = 21.2 % 40.1-51 L 4544-3) FANTA (test code = FANTA) Behavioral Health Associate ID - [id number] Lab Interpretation (test Abnormal code = 93563-9) [facility] CenterHEMOGLOBIN AND [id number] 09:57:00 Test Item Value Reference Range Interpretation Comments HEMOGLOBIN (BEAKER) (test code = 7.2 GM/DL 13.7-17.5 L 410) HEMATOCRIT (BEAKER) (test code = 21.2 % 40.1-51.0 L 411) Behavioral Health Associate ID - [id number] W/PLT COUNT & AUTO [id number] 08:25:00 Test Item Value Reference Range Interpretation [...] CONCENTRATION Decreased (CELLAVISION)(BEAKER) (test code = 3438) Behavioral Health Associate EVELYNE Adams comments: Slide comments:BASIC METABOLIC [id number] 06:33:00 Test Item Value Reference Range Interpretation [...] S NOT APPLICABLE FOR DIALYSIS PATIEN TS. Behavioral Health Associate ID - BANDAR [id number] 06:22:00 Test Item Value Reference Range Interpretation Comments MAGNESIUM (BEAKER) (test code = 2.1 mg/dL 1.6-2.6 627) Behavioral Health Associate ID - BANDAR LHEPATIC FUNCTION [id number] 06:22:00 Test Item Value Reference Range Interpretation [...] (test code = 12 U/L 6-55 347) Behavioral Health Associate ID - MAYDAAYA LPT/[id number] 06:13:00 Test Item Value Reference Range Interpretation [...] mechanical heart valves.CBC W/PLT COUNT & AUTO [id number] 07:32:00 Test Item Value Reference Range Interpretation [...] (CELLAVISION)(BEAKER) (test code = 3438) BASIC METABOLIC [id number] 06:02:00 Test Item Value Reference Range Interpretation [...] S NOT APPLICABLE FOR DIALYSIS PATIEN TS. [id number] 06:00:00 Test Item Value Reference Range Interpretation Comments MAGNESIUM (BEAKER) (test code = 2.0 mg/dL 1.6-2.6 627) HEPATIC FUNCTION [id number] 06:00:00 Test Item Value Reference Range Interpretation [...] (test code = 12 U/L 6-55 347) PT/[id number] 05:30:00 Test Item Value Reference Range Interpretation [...] mechanical heart valves.CBC W/PLT COUNT & AUTO [id number] 07:05:00 Test Item Value Reference Range Interpretation [...] CONCENTRATION Adequate (CELLAVISION)(BEAKER) (test code = 3438) Behavioral Health Associate ID - Kaylee Martines comments: Slide comments:BASIC METABOLIC PANEL 2020-05-29 05:44:00 [...] S NOT APPLICABLE FOR DIALYSIS PATIEN TS. Behavioral Health Associate ID - [id number] 05:42:00 Test Item Value Reference Range Interpretation Comments MAGNESIUM (BEAKER) 1.7 mg/dL 1.6-2.6 Specimen slightly (test code = 627) hemolyzed Behavioral Health Associate ID - [id number] 05:42:00 Test Item Value Reference Range Interpretation Comments PHOSPHORUS (BEAKER) 4.8 mg/dL 2.3-4.7 H Specimen slightly (test code = 604) hemolyzed Behavioral Health Associate ID - EDASIHEPATIC FUNCTION [id number] 05:42:00 Test Item Value Reference Range Interpretation [...] Specimen slightly (test code = 347) hemolyzed Behavioral Health Associate ID - EDASIPT/[id number] 05:19:00 Test Item Value Reference Range Interpretation [...] = No growth in 5 days 6463-4) [facility] CenterBLOOD [id number] 05:01:00 Test Item Value Reference Range Interpretation Comments CULTURE (BEAKER) (test No growth in 5 days code = 1095) BLOOD [id number] 05:01:00 Test Item Value Reference Range Interpretation Comments CULTURE (BEAKER) (test No growth in 5 days code = 1095) Hepatitis panel, [id number] 18:27:00 Test Item Value Reference Range Interpretation Comments Hep A IgM (test code = Nonreactive Nonreactive 17239-5) Hep B C IgM (test code = Nonreactive Nonreactive 93011-0) Hepatitis C Ab (test code = Reactive Nonreactive A 06769-0) HBsAg Screen (test code = Nonreactive Nonreactive 5195-3) FANTA (test code = FANTA) Behavioral Health Associate ID - DB Lab Interpretation (test Abnormal code = 91776-4) [facility] PANEL, [id number] 18:27:00 Test Item Value Reference Range Interpretation Comments HEPATITIS A IGM ANTIBODY (BEAKER) Nonreactive Nonreactive (test code = 498) HEPATITIS B CORE IGM ANTIBODY Nonreactive Nonreactive (BEAKER) (test code = 645) HEPATITIS C ANTIBODY (BEAKER) Reactive Nonreactive A (test code = 367) HEPATITIS B SURFACE ANTIGEN (2) Nonreactive Nonreactive (BEAKER) (test code = 2585) Behavioral Health Associate ID - DBTissue Tetg7573-07-35 13:01:00 Test Item Value Reference Range Interpretation Comments Case Report (test Surgical Pathology code = 104) Report Case: [id number] Authorizing Provider: Myrna Monsalve MD Collected: 05/27/2020 08:20 AM Ordering Location: [address] Received: 05/27/2020 02:50 PM SERVICE Pathologist: Rosa Cisneros MD Specimens: A) - Biopsy, Gastric, random biopsies R/O H. pylori B) - Biopsy, Gastroesophageal Junction, random biopsies R/O Islas's DIAGNOSIS (test code s0qqhNCmDWLgc5yzKRJfrPXn = 3220) ZzEwMzNcZnRuYmpcdWMxIHtc zmOiEXgan6KhZ6YnHgQhVRrs bnNpXGRlZmxhbmcxMDMzXGZ0 rkCpYGUjXSqfCVEhUIkgCr5p pOUexEtrEeAoSSAcc6jzyfMG gvyvaCb5r0hbMXMlSlX2nELd LOjxI0rfupSgvPVtGPHwUYa3 qK40GYMfsO1qxKEiJKcezkBl OxN4OIqdXFFpMfM2YOXfqVYu CUYiP7dnDNBpRIjxHSUnLNxl lKSfKOF3gQjan1U2yEIquVOu gRmmLeHkKzGnMPQSk2ZhTBt3 vCnmU7RqUCOmHpU5bNOvQSCf AYobAZUxEPCvoxI1dD85CUam gxT8dTGkz7Nyo75oc191uK4k iWZjCIH8GYAaPKSibLLpJDGb VEB6WRBhlWHsW6s8DjQoaBJn Z4L8FqCefJVuZ5K3QkYotXSc G6G3GoGqmWBiTHFhqLAoWf5s bVSrkJFumw5ucg45OHB7b5Ii lPhrYWO5YYC4FvKqZw8hzOBk HZYeKN5pNlQyxSYdRSGbjb37 aNasILemacZorW7rJwGmQTZp nHJgKFLbTJ5dgSBaFWUspF6b cmxjXHBnYnJkcmhlYWRccGdi cmPgDs6pjYzsSZI7FLcwJ2al jV9yUmR4PBgqH1yemJ3kVEn2 AYaadTR8TBUdbE0yEL5jwmtr n0ghXhGtTH3vbqswf4fwAjPb TI0yicn7f5wiTzMqPT2pkssu c0rtTbFaMLarPNAkqureLIDc t9UgsmihUHWpm3PrV4GwzKrp D49itXrmM14lXLVwzSpttW3h kQjkpT4gTzCyAmTsTKexzUqg bGFpblxmMVxmczIwXGxhbmcx EUPxCRreF9qnMcYvZRRkvNyg EAasq6LiXNVzXXElViKvXC1i S2OYUCMOHKahZV9AD2XNC3NT UxCJJRDAR9UQAVLJK7DAVUTO IFxwYXIgLSBBTlRSQUwgTVVD U0VIVUiYYKslF4mPD53RQvZH TkFDVElWRSBHQVNUUklUSVMg FE0HOGHML2VDIIcASAPEBAsJ QUwgTUVUQVBMQVNJQSwgXHBh ciAgIENPTVBMRVRFIFRZUEVc zAQwHY5eQ3kNKzAXHaCBWCRS H5GmC0mIDNEXKtSHDKlSDWJS Z8IJPQQUHMOCG2yYM5eLCXKM XMHRFMDEP46DIYAzivWmHU7K D1XYIKWIQOWBFnHQJJeDG49B GJWFXNXsDBrYJ0JJULRmlyHe RP7RU0QIUJBWDHANQiKTCFSZ HIYQLMJhL1WpN4BGJ1cLS46V EAQdslolDFPhZa2wZ8UKELLZ CFESNQhMD1INRBGFSS8LQRoT XplqBG2KE0NHX9QTDdUZQOFR P9RZCBYKP9CGQOPMMRMuywZr ZDAFSRGFB0ZKOAWVDyCSSH3U D71NEKDPMPTNWMKBDLuJKQPR QSKPBXMLP2ueNPUbKOJIKKnH COiKPDGXT4MsR0DJP3aAYVec RUQgQkFSUkVUVCBNRVRBUExB M2tAZBZktqjkWUKazYMgkMaa hkOiEPndh1PqDEawVIJfRA0r pYwsXGTdJR2rHIElY5ggxF9v umw5CpOyYJQjDbB6KHHtbeS3 Dyr2BWAcEKnkn0wlu0GaGCZn OBa7zBmcGeBkWNVdb6akeeMq DrFmHZNgRSFqVEDqbZXjR711 x2wzg7fnrpLpiJT5VTImMYL7 FWnitkUrwlO4VYoucRVjLlM8 IDtccmVkMFxncmVlbjBcYmx1 LJQrU280QHP9uJpqw9ibGVA8 RWExNVLxPbMuGp0iwUYaY192 ESJySHBAVIMkwQh8YKZjtmCv tkOvbCNKo199K631n1igILBs myCwvSxTvzbqd6vrQ608OTZv cGVydzEyMjQwXHBhcGVyaDE1 MGTrGZ3fbgejCGaiUXjjNNRx jdY9EYAbhOBfV3AdEUSfUH0q tocwEXT5SSvzLAVlXNU2YtWj CRNbj8Ibdpy2TdLtxk0ttu43 XAU1f0NksDciQQJ1YOV9OgAa Gz5woQLlZHUzOC8yCgQnhUXb DKCwlt73rCjoCApvNXK6ENZi emSll6Ako0qfEwXcneWtJ0ov X2DbOGYxOYKzLJUsEuLdeaNv u0Mck0TdoORpdDl9b6ieGUVb ZPWvmTtok6zzVRT3VVHgvWVe S3hhsF6dVFThSH0xityma5tk PLtfBRkrOTWgqPH4pkN3TPNt nLUiR8HhpK0iVBUgONbbNGDd nxt7SuXiAa9ohCOreOtsMHso YmtwYWdlXHBnbmNvbnRccGdu ZGVjXHBsYWluXHBsYWluXGYw XGZzMjRccWxcbGFuZzEwMzNc aGljaFxmMVxkYmNoXGYxXGxv A3qxNfWkIuSjEnn8MMOzvNTi QOOyZjv8MGWzjNXgGGNXuKbn wF0gQPXlmWzekD7pyXX6BBOt zwLyuTDKzC1rVKVYnZ3tAzL2 EnSnPeX2QGVuXXztdXYtcK3= COMMENT (test code = u4adpAMxOBDpqOGwGfRzLWEd 3359) KKImx9qvGDQaqBDhPnPyPkTs XbEjOsznqIQwNXZcKeSjg3sz j088oKBuq4ifMFQyEnO5bEGw CESvtMVnH339j3ulo3eypzLu nVP3WXIsIQI1KRrsrjAottW7 EEfgiRWjJaX1VNyxrgZpYQrs fcYvrhLmLth2ETGqS273XUN1 mCvgv2lcNPR8PATkZNMvNgYv Bu8gvJVdF540HHCoYTAATVOg gGa9UQOyphEcmzDgcHRYs343 S242x5imLAKmddMcqAcWaiwe f6ihX332FXSjsIOyfhSpMvDw AQKzaADtkNG9UESjOR2apqgo DtAmNN8cpucgQzGtVX7sqxj0 AtZgTO2cthifTvDxOFvfJFMc vmadUYCtn1EwjvjjSK0wD9Ht f4R6xK6tjRCpDQPtwPRaUiDo XGFxtu8poNDjIOaxo8DbXJN7 jaC5tZDejFHrGKLxCZ50Cotp q3VjHkjwRRM5WUZzgkVvs6Fi f7wmUqTdoyHdB8ebX5UnBRMs NCByHLNzVpNtpcPso3Vrh9Ek mGLaxEx4c6sjYBUeLMXweBjv v5gbUUC9JDMiU5Z3oDNmd1uh KRqmQHVmkZG8svnkJIvgBEZe soA8ovjeGBxaDJDepTU3nwdf DVdzIVUvPrV1jwokAKzkPZOy TLA4YZpvt606EMX2IWjrGdgn YWdlXHBnbmNvbnRccGduZGVj XHBsYWluXHBsYWluXGYwXGZz LoKgdCfrvUepbQ9bSnVkIqZe VUgePD3aCXWmB6rlbROjELFz GIEkW0muPlMqoM5dpEvpGQhp aoSzBZ1tuQXenN== CPT Code(s) (test g2zmqQFdMFYblRGlDuCjHGQw code = 3357) ZEMqb8kzFSGfxELkZtHeJxKv FkSzAevfhCTdLWKsZhUpc2eg f190gUEkx7jyDJDfDfU3tJNj MVDfhJLpK446j1pdy5hblxLq uYI8OJPgAQB7FXchboWqtsC9 KHiecJYuYeA9WExhhaDpUCbz odTmjyWkSzh1SKFqI434DOG2 yHoxm0lkCPO8ETCoMMVvJlKd Ja5yyFMzG330JAOrMJBFASUm dLs9BEVjprBuwmCmiGRIk149 A805h6twCPAkkdQuoYwJmjiz m2amV903CFTqyPWvhtTwShHh KZDboFJlsKF3FLEaCB0nassn UrHpIN8vdplvXaTiRD8mwtm8 JxYeLK7ahkpsOtBxAPapTUOg qfscTEWhn2GrtmbzPS6rI1Ha h5L4sC3stTUkKNBezMUlBfOb XYJhqp0ayWDdDQlit4ZoBHJ1 uwZ1vMUgcKUrWRSdUG59Csup n2AhYstlCSR3MFSxajVav3Dw a1bjHnUlnxRzF4keJ5ZcNEHw JJXiSMKpFdUuiyVlr2Pst9Vm cVKccXy7v1mmZLGoJKJquWto h0ytXJW1CZAoM8L4xELxk1lx XQoxWWQzgOF0xdtcPObgRQVb tvI2tzknNIzgFAXozUL3sruc CWihMGLqFaY5syzkCFpbVUOs SCV2STakr739CBF5ZJxxNmng YWdlXHBnbmNvbnRccGduZGVj XHBsYWluXHBsYWluXGYwXGZz YwDtaXjraVpojX6eXjLzBsRw TLvwAJ9vVBYeY6gfvSDpVKWv AFNnV4kzNxAokY3lhIczBZmg etKrYLl1WgS5MPraDBG0FTVj MlxwYXJ9 CLINICAL HISTORY x1mtnNGfGEBhiRXjSoTkMQIn (test code = 3356) GRZja9wjNDTriACbHqWfHcAl GrStDpjzmSIpRGJkWqOrw4rj n387wJMtg8xsWFOmQoY1fQSx GXBqyVEcY928t3sbx9sbnnVh pWW1KVSfUOE3QMaqdzRddvB2 WTtxjDKzInL9LXykolCjZBhs pjTeniNkFrq0JBWkP715QCY4 bBkvi1fvJPV0VNLwVDNrZtWa Gd6suUUiG646VYBuRQVEFBDe lUc0NRTcmfCidwDpnMKQh658 M724j0nwZYIlwqKywKeOzjcb w0qbU068LATxlKOakqGiZtPa XVDmjMGbjJM3ASEbBV4qdjtl FsKbSY1wucaeGcIfTO9zxoo7 JuLeDU5mfvfiVvHvDQxzXLXq knldEXGpe3BahvllTK1jG9Ik p8J8qK4qxLVoORYjbMLjDfTh BTZcrq4xlQEgGQcpu6UyHJJ7 xnJ2tGQfpEKyLFQfUP89Ujvz r1ToIjscAER9TBWwbhTgz4Th m5fnLcVvddKcO2ptX6HtDAZd QQZwFOMxXcAyblMic0Xlc7Vo pFNufYy9r7ahVRNaBMMqiTqx l3zwMCV4QKCmN1Y7vFItj2zd OEcgKDGduXL7utnpFAwyGGOa wyD4ebndFAdmDBFypEK2olmh ZFfdUOBzVtG4iwaeZOqnCQSf OOG9EXnna948HWF6IGuiJpnw YWdlXHBnbmNvbnRccGduZGVj XHBsYWluXHBsYWluXGYwXGZz SiGmlJcroRegrN1kPeWzKrIx QKiaSJ7hYEGtB2fnqRNpNFCh NPUcF4zcSlNavN5wjAifJMhy bbVmNRAtHC9wEUFsaVArbO== SPECIMEN SOURCE (test m3mznRYxNXYxzDZxJxCsMDOb code = 3377) AONev9hmEHFnsDCrMgJoAzRm MlLxSibpmUVuTTIrLvQkk5ua v041cZTpf5rtZIGvPfZ7jBWk AKIpjIUyW726q4wxy4utmnDh uKK9PQOlLOP0IYulfmYofzY3 EBlmpLFzOfA1WEoxnrErMBem fkDstaBcBia3VPAqZ159WPL4 qUssz7ijOVI8HFTzGWDiHvGg Tq5qqACrC693PKUdWWCNPYOm dRw0NNHycvZrgkQpgALTo105 I367s4eyHXVybuNyaOgZqfnm x8hqZ978HXSvdMUvodCxTaIh AYUtkVEgrHA9NXTvII3fphgo UiZsFI1ksdksChJfPD9vzdo8 WdIvJL6qvmfyShWlJDlxUVZr hetnEIQwy9PjvplsDF2kQ4Fs x9R4fR9wbFZmYKPalNQySsTu NCXwfx6tgERaGPmag7IlHFG3 qhY1jKDuaIAnHWVbGF55Jhge a5EsNvpjUOP3ZCKbdiPbd8Gs o7pvRqRfmuJzG1pnX7MxUEXp QBUmJBEsYpMvulSpj2Hit1Ad tIApxEf9w9vpZPUnDXVvkVce f8jrYHA1WGAvT7Y6zUOir7zb GIhnSRBuyRH3oiqhUAadIUDc txR1cjotMLdyXXJxkSN5nyyd SArxQQAgXeT8dzltXDiiLIPn IIV3RDlrf221PYP6LYirIvcd YWdlXHBnbmNvbnRccGduZGVj XHBsYWluXHBsYWluXGYwXGZz TxBmhOvxwOalxG0tTfPsTwMo IEgzEW1kFRPuT0rbkIUfFFPt TJBnN7sjIrMgyO1pvTmiJMeu czIwIEEuIFJhbmRvbSBnYXN0 zsftWWQgh6WxyVstraEqSUSl kJZqQQ6vIOpqg3OzFKAkwlWS DaPJXZ6iv26uA9MwraCcM3Rm r87vTzhdtMX6VEAkiKukYE12 mQGFKYQjKSO3P6PeZZAduf8= GROSS DESCRIPTION n7xmjOZyQSEszIXzTlUdTIYi (test code = 3366) RKBsa9cbJVNssCLxCkUyWsUm KhJiPidlkKOoDADdTgGga2sr t691xUDma8nkXYKiSzO6iFEh QKNslNOgA400CPXqWBlrr4kn v1KqSQEqnXTfi9N5ZFEJxyvm fOa2nDlfB36ya6B4XpqiL3cr KRVmEDNtX5IuKZ1yNBDwOzy3 JYI4RAY5RNUuMTVkT2KuGE3i UNRhtBDmTLj2e5mcxBmmMGDj HBM6a1oeNGqdntXhXV4tnx2s lIb5q9jfotKlXXKlVKTkzGEH YEHsO9QmxKkzEt7zpOt0cMxn CauoRZC4Wfk0FU7rbz73all3 eHphREYhmifjNmI9QVorNXMl dhbmJBj5YYuzEUEefCcuTKip YXJncjcyMFxtYXJndDcyMFxt AZZwGkgiWTiwJPRkMEX3GKxd m128IGL1PAhoh5gsw3euxPMx Uzu8UWGvVzJjTuniLZujm9Ie l9mlVJIdqf4aUGP9aOIbfFix l2X2fASbOEJyfCXrgcOoXZHx EfV8DXokWP7jcw70YPXyCOB5 fg6iqFSezDpsvlXcpRGqFKaj C8YtYPVrc583IXOtS2IhUBTe i3K6srInUgBhLHPyoGX3agH5 DOImESm9gEOpvcZ3bkHobJIe Z8eyhY17AyRmrPJlA6ImnZ88 YhCreRNyQ8YmtH08BnAblUGj B0YjdP75GzDecDSrYEFngOSv Vd9whIFofXCba8WhlWXsGMvk T80lt698QMBkshUzK2koeLOt lrnzfVGeernzJCgbxvK4SEFs XHBsYWluXGYwXGZzMjBcbGFu ZzEwMzNcaGljaFxmMFxkYmNo ERIvGWydM1ksAeIaEbEgRJSC MhQGVOUekEZbWUDzybDoq7Ie YWxpbiBsYWJlbGVkIHdpdGgg vDdpQFPdiIygwdRxfyQyFF6r IUFvIBIsW4XzQJKiV57nAUKr oN7nUJYtDX5lUBJqAOI4majc NJOso4DjyXLkZVZvUFW7qxHp kZRhNUTaz6CunWYhTRnomMXm RB38S84yCK4th8GhuoKdWSAa k6Y2ZJZ1wKX7MX2xUSF7xvFl ME09VCsgUC3cPQytRU1fOCBh QSipVXCuL7AbU9A4MA2rZGrs CVSgVOKjrIWaGKkvLHA7Wf9e hXPkHPPajsL4f0QqBVXmzMxd u9qrSuRymMn2qpY4cE2bMGsw UIDdt8VzxUGwEZLjUmhkTBZn cGFyXHBsYWluXGYxXGZzMjBc bGFuZzEwMzNcaGljaFxmMVxk YeTrNGKrXEakY4vsAaZuLxQa MCBCLiBSZWNlaXZlZCBpbiBm r4NrMBuxmkEfSULupELiKJav dGggdGhlIHBhdGllbnQncyBu LU6kULBfKBSwJ0UbGMSbD87p SZHmuL1uUCIxFG4jVEZMVSTr uU7zeVsdlfBejA5hb4luDVMw ZWC6w33rkTlhA5XnRC4sDFAq tf64kWt2JVIovMRdn2SiQ909 FKAzLQD5qLPwyAAmjAozzPMl VZDwuHGvEDEcTVP9LKQxEkZ9 RAAvNcGmyRFkkvQfY2icVJoz zKQcFPYcCKFqwTJjoS9ejhMc jtGupZRtrYA9CHHzbM0laY27 orWbe8gnf1yhzwqcMdunnWDn tDdtzpUqlmMjDBOfOGF2JDMG ZG2rlLjlwZ9vSfQoPgKkDNfr VR9iIMCtU4bhpUAcMTXpWJBq K7daHvHmbX4uhTqmSIfgrzOh QDGTICZjRQxciZfjcD7dPpIl ShCzNPclXW6oDGHkY6fdhYPh ZIIbIHNwS8fgKmWisA5mgTxk MVxmczIwXHBhcn0= MICROSCOPIC t1eomBCdREFwyCQlGlMdYLQl DESCRIPTION (test XDWrp9ffBFDexTXyUyBdFfDs code = 3371) YvFjBqofzWMlYIBaWsWgd2pp l208qLBqz8cvFZBtLqC0xCHz UFQanWVjD002QCGeTFhpz1sm c8IpDKJwzSMcm5V4LFXScfxx zEa6kTfpO32pt2P9KwohZ6od HBVcWAQgR4VmAQ8sGCXiNpw7 ONH2EFZ3IKHpJLUvM6GqHI4r USGyzSTmJFl0p7bprRrnTFAy GPN1i6stVYashxHhRT0hxt1a rTu1y7txnfHyGNMzQAOjwDLT FKYfE0GqpVbbHd6enQl0cLmn UkcyEWD3Zpn2RG5yvz09kic8 tOgdZGCpgwzcNwH8YFpqMHAj ucqaKHg2NWcvIIOgpQftLBna YXJncjcyMFxtYXJndDcyMFxt HLHdFzjxSStgFXHcYQG2YVjt w047EBH4JIwsy7fbh0eedDKj Ttp8JMUnLoXvPpfkIVehx0Lg m7pcRNDkpe8kLHU8wAPkxIuo y4P7oUCqIGAdbYDwpqZrDTYn UiY7ROdkHW3uep84JAUwGCE7 hy2qiDDcvMgmhlCbjWHtZNfw Y2VpNDLta161DGOaU9XhCBLm v0F1hhVeLrMuNGHmbPD3thN0 RUYxHZg1cSZynrG7rwZneYXz B7kucH85TvFddGUwN0AysR35 ElRurYZlJ9DdlH48ZjSdgEBb F6NvmV88HgKltAVrBTEpqCYq Fr5ikQDkqPVfj0LqfVQdOTmc H21yh516IIJomaNxA9rmjPFu mxjsdKNlaiikPJfgyaT8WUAv XHBsYWluXGYxXGZzMjBcbGFu ZzEwMzNcaGljaFxmMVxkYmNo PAWxOMxkJ4wyBsUdEyPjYUUC InWAGWX4oE8kLDQic2kpACrm s0RncWNgMK83goJpEVGbBISg fJexkUwjMK14A63hRP2rOXmr VUWzoYVycQKbrKRjp4Rbi2xp q6EguRmtTZPqiDVkqulfZRyo FLY7rEXaAUeoj2ImtUIhmzB2 eKUaBOgcW13ukRskyMRmyR07 RMO0hN1xxTEwKGFpnUjku0lo IeAHicVpM4LqgxXlsH7dcUQb nVG7zO9xAFjwRMWaGLCyqzXi ZOEdYZHrqOjbnUmdGP62I11k GXZyaP87vpQmzgRjmAaugZPy F9ZfkMFlyrGyPU2uBEKwq82g RAmsauJhbD9gd9DmkJ8jQr7h OUcziNbav3SnT5YtpuYfqShg cmkgaXMgbmVnYXRpdmUuIFRo EBIjEHqjAN5pAYR7u6HqNMMo TIJqzgWkJQRwtE8bbZQsBKXf nwrvGLVsVq3hO5NsjJzlxcGp gR38yzZgHLZ5ab0fi64saEGh YANwEMn0zkW2mZ5fZDkikWWw c1WsYFQnCBZjeTIwwE08ulDb OU0shRspI1VisXuymALqz1Rd MxJLtQZhn1T2UO0wcWAsMMLi p1RgWThuXIctSKYlbSNkduXe bMChOiRIDZUtzI3abFfnyxKi VT84F37rBSGppG21qxBvpyKt jpQgqVq1jBDaDEAvQH8lEETv OOGlcK5iV1D7GKJkvnFwR8As BIQawKMmyTwfSVXpNA3jWTJr NCYxa5z6xH4pyrTilTNuo3Eu g5qld0BaR8xzf36sXdIrjhNw DV5oJBWml91sr4n4nVHfLFYk SV2xoPMgm5AwpVfzUiLOrnBh y9IwRDUaY5FdvWPfWKHazTdx v7byUVsaIDBlRI3fDAUxbw3= SPECIAL STUDIES (test h1gddAHpFBQkz3ibJELkzHNm code = 3376) ZzEwMzNcZnRuYmpcdWMxIHtc ygBlIWvrn5CmI3WcMdBgZIyl bnNpXGRlZmxhbmcxMDMzXGZ0 ogUkGWMsTZvrPQVtHOyjNs7j bNGdkGjzIvCjQLDxy1wdzbPA xeeprDc4y3ppXWFkJnP0tYEh UHzhH7pijtAgyUXbU3CbvFCk pUe0q9heXtLhWfF8hGEzJUbq H9njniHguVRzPFJmLLz1kQ10 PCEkgJ5uhAUsWYpzowQrAyM9 VWwqPEXjVoD9WYLckENpRPXd M9kiZKDeUHtsCAWbEQcubVSj XUW6aOwwv4H1uSMudCMvgPjx InWrIcClYrDKn4KiEJs7aKqb Q3GfVIQjCyV0pZDgVMHaOLuv QYBaZRHivnU1zBsvetBxx51b eHQyXGYwXGZzMjBcbGkwXHJp YCISf5PhqNczJFB1cMg0uOep XuewOWB8Lpc1RC4nqj22ibf2 zCruKZHdloifJbR1FXzrOAVy ffafZJe9OLesKPEpqMZ8JREl sSNaQ7SdVOOaJR4chpk2ISR3 RLmeLGFzIcR9MYFnyADcQEWo tMtfJNlbg841YQM6AeKtCB6m W4Gvy2N3qK3afLVqNWIalRTy WfDaRALmgz9vaOBwMEtyf7Wu CYU0aeA6cOGhoTRePTDxPW59 Ldfyi0UaXzvjd8EzR70xmZC6 HDkjw9jqUY5bLwA4thOvSUlx r0cejN4dDaA9VRguBQ1aYY6q KVGniE4cbqmgTIByXjExzmbm GGTbtEtakpFwFh5pwLhmZCA7 UHzkT0pvfF1sAvJ3FMygO0fs gH6uTCd7UDltdVA8DEDbuY9g EW1odtkqw9eiYEzoSKuaQXVn umF9ytV1GLBijAVpF7ZqmN2j ZZLcLP7qqgltp6trSIY7BNeq ZIJtRWY9BtPwBMLhg2Gdmyw2 AaEcm2NgnWWqKTulO68kr504 PKCrwoPfM8stdQRgnqsfvFFb qzxwLHppxwH6DNHuWTAeQVfk XGYxXGZzMjJcbGFuZzEwMzNc aGljaFxmMVxkYmNoXGYxXGxv R7dfHpUoD5FjUIOhVmDeBKru PSfzaIXnmYBtyIZ5aE7iAP4b EAMcxLQwU4LrZTChinBqoWEr XBQ0vEEvaZCgVE3bMEivpOQw p4lbx1EvN3utuJpnqKZ5OB6i HBHaSQJvUSmdp0DgoI9iCrxf bGFpblxmMVxmczIyXGxhbmcx HQKmVCeoG1kzMjNwPMKzzYul SNlhp9FbPXGwBCTiIhpyzeNh BEt8idNdMIFznrvaWWBidVld rG1kAqJcWkJdYjxtYQ7dVDHb T9kpaPQkCXNlILIuI8kdEsPo uD4hlKnmSIvvLqCzIgAvRgOS z268js7nPMVjlCOjgtIQxKNu aU3jKGhrGOzaUDdlwVZrWFiy j6jnOGHjr7h9rFDhMTJpwbQn x8flPLudxtLrZGWkwLSifEPq NFBdp18jXQsefQmypVvjYRPb m2WdjJdcr6KhIfLiZLryo5Rq M97izYDlsEQhwCqwQSHtagRl QKVfe81uk9qrNZZiJuI0dQTo wNQ6xNNfcJJxw6GkpXbxKIZi v6qeWHAyku3njquefAIxy2Jj rA0ejdnnEYebhHXesxKhTWFt j7a8qABuVUUpRSHiRFnvjYv5 BQXlf222lo4aycJ5sDCbFEQ4 YWlsYWJsZSBhcmUgZXZhbHVh dGVkXHBsYWluXGYxXGZzMjJc bGFuZzEwMzNcaGljaFxmMVxk MiBdZYVsYGijQ7ohZxKuY9Go YMBoChKiwCEvK3gwmYRiYNDs YWluXGYxXGZzMjJcbGFuZzEw MzNcaGljaFxmMVxkYmNoXGYx LJxfT0wdCnHuT5EvQVXfWkOy IFxwbGFpblxmMVxmczIyXGxh zrkkBEJhNWlyT1ikQuWeBPXx gMpjVClmc6VwMTNuTKUnHkfz yfRvUBg3acEzWVLvuvlnrXOb blxmMVxmczIyXGxhbmcxMDMz IOyrJ1rgFcUmGTDcvRhyPEhg c3TyUXNbOBQjXrsztoGpCUwf bXBcy0ega7HuX2oehNhkoGU3 QJHvT6pyaWZivWE6YYA1rV3s EQmhrpWgYMAmq6EwLANtRGIi TbD6vO6vVAI4KrIKnYoeVETc YWluXGYxXGZzMjJcbGFuZzEw MzNcaGljaFxmMVxkYmNoXGYx NUcgR9ksWtXnY0GrALYtMzWc gRfvVIyyVLu5GymvrHWppmfo MVxmczIyXGxhbmcxMDMzXGhp Y5izFeHgKYPrtIlgLEekb9Rl XGYxXGNmMlxmczIyIHMgTWVk cUWbeZQRBG27RXJjGDFoeIrf pR3xqBBBMHFvqpY6n8X2VKyb SEWaFUq6MPhjceBkTPIywC0m HVZgDG3iPYg4enAzKSOsk1Ly IV8aQOAiqNDvPRP8ARLht4Qe S6Sbw2UhYFZpVCMaqa0eqjFg XzGFsGXcQFGvte75ANQoHL9s Q7xhRQYhZGPfcbZyuUNpv8Tr FYEzmYI9eELgWC0JKlDRn80o IGFuZCBEcnVnIEFkbWluaXN0 puC5gA9nXtIPdIZaVgZLKUgc qcSwSOYrry6udpAuHNZfIYIs t0NrgYUjpRCtxaZqE1Nie7Ou AEHkca91NWlxiYVwam81TU9f C9Lfb2DseS4xHLdjONRhb2Cs mAEnkDVdYGAax1GhF3mtonok CKkcoVIigF3iZTZiVDw0ZJVu s0TgAYGkw9LsRzEcblCgWEPk AOOjYFSyfW11TXB1pUtpjZkj dgDqKL9hRIFqoxWeESEmHQBu kO7zKHwoqkPhSYGhnhH2c2N1 AEpnUBHoqhKbBxtjMIS3vaCh suX8tVTcW9thfolfKNksDWUu b4LncS7guQUQjKDhz1JvbWTz wJSUfDAcPE3mdlMiKG9dNGL7 ODggKENMSUEtODgpIGFzIHF1 MYvoUlryMVE3rcWdJFDoa6Tw AIvaO5yqP36anFomtJo7xDYq iAvwnRVdnWAlXKXypdP3c5V7 UZIez1HtlsafSPNhOWrwJXAa XGZzMjJcbGFuZzEwMzNcaGlj sKsfYvfxHrCjRCOwOJbqT5id PdHeQpLjFutfRHP9uV== Gross assessment was [facility] performed at (test [facility], code = 2777) Department of Pathology, [address] [place] [address], Technical component [facility] was performed at [facility], (test code = 2778) Department of Pathology, [address] [place] [address], Professional [facility] component was Medical Center, performed at ([facility] Department of Pathology, code = 2779) [address] [facility], [place] [address], [facility] [id number] 13:01:00Surgical Pathology Report Case: [id number] Authorizing Provider: Myrna Monsalve MD Collected: 05/27/2020 08:20 AM Ordering Location: [address] Received: 05/27/2020 02:50 PM SERVICE Pathologist: [...] ISLAS METAPLASIA Signing Pathologist Direct Phone Line: [phone] signed by Rosa Cisneros MD on 05/28/2020 at 1:01 PM.[id number] x2, [id number] A. Random gastric biopsy, rule out H. [...] evaluated Immunohistochemistry technical testing was performed at [facility], Pathology Laboratory where it was developed [...] as qualified to perform highcomplexity clinical laboratory testing.[facility], Department of Pathology, [address] [place], [place] [id number], [facility], [facility] of[facility], [address] [place] [address], [facility], [address] [place] [address], BDT W/PLT COUNT & AUTO [id number] 06:41:00 Test Item Value Reference Range Interpretation [...] CONCENTRATION Decreased (CELLAVISION)(BEAKER) (test code = 3438) [facility] ID - Kaylee Martines comments: Slide comments:COMPREHENSIVE METABOLIC [id number] 05:00:00 Test Item Value Reference Range Interpretation [...] S NOT APPLICABLE FOR DIALYSIS PATIEN TS. [facility] ID - BONILLA MBASIC METABOLIC [id number] 05:00:00 Test Item Value Reference Range Interpretation [...] S NOT APPLICABLE FOR DIALYSIS PATIEN TS. [id number] 04:45:00 Test Item Value Reference Range Interpretation Comments MAGNESIUM (BEAKER) (test code = 1.9 mg/dL 1.6-2.6 627) [facility] Associate ID - BONILLA EPATIC FUNCTION [id number] 04:45:00 Test Item Value Reference Range Interpretation [...] (test code = 9 U/L 6-55 347) Behavioral Health Associate EVELYNE - BONILLA [id number]-[id number] 04:33:00 Test Item Value Reference Range Interpretation Comments D-Dimer, Quant (test code 3.35 <0.50 MG/L FEU H = 42886-1) FANTA (test code = FANTA) Intended Use: [...] range. Lab Interpretation (test Abnormal code = 35785-7) [facility]-[id number] 04:33:00 Test Item Value Reference Range Interpretation [...] exclusion of thrombosis is within 95-100% range. PT/[id number] 04:31:00 Test Item Value Reference Range Interpretation [...] detected HCV RNA not (test code = 69304-2) detected FANTA (test code = FANTA) This test uses a Real-Time Polymerase Chain Reaction (RT-PCR) methodology and was performed using BAIRON Ampliprep/BAIRON TaqMan HCV test kit version 2.0 ([employer]). Reportable range for this assay is 15 - 100,000,000 IU per mL (1.18 - 8.00 Log IU/mL). Lab Interpretation Normal (test code = 77728-3) [facility], [id number] 22:57:00 Test Item Value Reference Range Interpretation Comments HCV RESULT COMPONENT HCV RNA not detected HCV RNA not detected (BEAKER) (test code = 2699) This test uses a Real-Time Polymerase Chain Reaction (RT-PCR) methodology and was performed using [employer] Ampliprep/BAIRON TaqMan HCV test kit version 2.0 ([employer]).Reportable range for this assay is 15 - 100,000,000 IU per mL (1.18 - 8.00 Log IU/mL).Manual [id number] 12:07:00 Test Item Value Reference Range Interpretation [...] few Lab Interpretation (test code = Abnormal 71552-0) [facility] W/PLT COUNT & AUTO [id number] 12:07:00 Test Item Value Reference Range Interpretation [...] code = 1+ few 477) BASIC METABOLIC [id number] 04:27:00 Test Item Value Reference Range Interpretation [...] S NOT APPLICABLE FOR DIALYSIS PATIEN TS. 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 WBCs with mild left shift, including occasional myeloid precursors, no blasts seen. Few hypersegmented neutrophils. Thrombocytopenia with unremarkable morphology. Pathologist: (test Maddie Carolyn code = 2849) Bebeto Dsouza [facility] - PATHOLOGIST REVIEW 2020-05-26 14:31:00 Test Item Value Reference Range Interpretation Comments PERIPHERAL SMR Macrocytic anemia, REVIEW (BEAKER) 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 WBCs with mild left shift, including occasional myeloid precursors, no blasts seen. Few hypersegmented neutrophils. Thrombocytopenia with unremarkable morphology. FODH-UOSQAPAYEOJ-499 Maddie Carolyn 2 (BEAKER) (test Bebeto Dsouza code = 2849) [id number] 13:50:00 Test Item Value Reference Range Interpretation [...] within 95-100% range.CBC W/PLT COUNT & AUTO [id number] 07:48:00 Test Item Value Reference Range Interpretation [...] CONCENTRATION Decreased (CELLAVISION)(BEAKER) (test code = 3438) Behavioral Health Associate ID - Chris Mtz comments: Slide comments:COMPREHENSIVE METABOLIC [id number] 05:43:00 Test Item Value Reference Range Interpretation [...] S NOT APPLICABLE FOR DIALYSIS PATIEN TS. Behavioral Health Associate ID - EDASIBASIC METABOLIC [id number] 05:38:00 Test Item Value Reference Range Interpretation [...] S NOT APPLICABLE FOR DIALYSIS PATIEN TS. [id number] 05:34:00 Test Item Value Reference Range Interpretation Comments PHOSPHORUS (BEAKER) (test code = 7.6 mg/dL 2.3-4.7 H 604) Behavioral Health Associate ID - [id number] 05:34:00 Test Item Value Reference Range Interpretation Comments MAGNESIUM (BEAKER) (test code = 2.0 mg/dL 1.6-2.6 627) Behavioral Health Associate ID - EDASIHEPATIC FUNCTION [id number] 05:34:00 Test Item Value Reference Range Interpretation [...] (test code = 6 U/L 6-55 347) Behavioral Health Associate ID - EDASIPT/BNVI0165-02-60 04:50:00 Test Item Value Reference Range Interpretation [...] is2.5-3.5 for patients wiht mechanical heart valves.CALCIUM, [id number] 03:59:00 Test Item Value Reference Range Interpretation Comments CALCIUM IONIZED (BEAKER) (test 1.08 mmol/L 1.12-1.27 L code = 698) PH, BLOOD (BEAKER) (test code = 7.49 1810) TSH/Free T4 If [id number] 20:19:00 Test Item Value Reference Range Interpretation Comments TSH (test code = 3.581 0.350- 4.940 uIU/mL 56684-2) FANTA (test code = FANTA) Behavioral Health Associate ID - ABBY F Lab Interpretation (test Normal code = 47018-3) [facility]FREE T4 IF [id number] 20:19:00 Test Item Value Reference Range Interpretation Comments THYROID STIMULATING HORMONE 3.581 uIU/mL 0.350-4.940 (BEAKER) (test code = 772) Behavioral Health Associate ID - ABBY FHEMOGLOBIN AND [id number] 19:42:00 Test Item Value Reference Range Interpretation Comments HEMOGLOBIN (BEAKER) (test code = 9.0 GM/DL 13.7-17.5 L 410) HEMATOCRIT (BEAKER) (test code = 26.7 % 40.1-51.0 L 411) Behavioral Health Associate ID - 6000CBC W/PLT COUNT & AUTO [id number] 14:10:00 Test Item Value Reference Range Interpretation [...] H PERCENT (BEAKER) (test code = 2801) [id number] 12:23:00 Test Item Value Reference Range Interpretation [...] 125-220 H FANTA (test code = FANTA) Behavioral Health Associate EVELYNE Ruiz ABBY F Lab Interpretation (test Abnormal code = 71667-4) [facility]CT[facility] DEHYDROGENASE (LDH)2020-05-25 12:15:00 Test Item Value Reference Range Interpretation Comments LACTATE DEHYDROGENASE (BEAKER) (test 341 U/L 125-220 H code = 635) Behavioral Health Associate EVELYNE NORRIS FProthrombin time/[id number] 12:13:00 Test Item Value Reference Range Interpretation [...] valves. Lab Interpretation Abnormal (test code = 83142-7) [facility] CenterPROTHROMBIN TIME/[id number] 12:13:00 Test Item Value Reference Range Interpretation [...] for patients wiht mechanical heart valves.HEMOGLOBIN AND [id number] 12:01:00 Test Item Value Reference Range Interpretation Comments HEMOGLOBIN (BEAKER) (test code = 9.0 GM/DL 13.7-17.5 L 410) HEMATOCRIT (BEAKER) (test code = 27.0 % 40.1-51.0 L 411) Behavioral Health Associate ID - [id number] 11:50:00 Test Item Value Reference Range Interpretation Comments Haptoglobin (test code = 172 mg/dL 14-258 4542-7) FANTA (test code = FANTA) Behavioral Health Associate ID - ABBY Crump Lab Interpretation (test Normal code = 50715-3) [facility] CenterHAPTOGLOBIN2020-10-05 11:50:00 Test Item Value Reference Range Interpretation Comments HAPTOGLOBIN (BEAKER) (test code = 172 mg/dL 82-864 933) Behavioral Health Associate ID - ABBY Bragg Echo W/Doppler(CW/PW/Color)2020-05-25 10:53:54 Ejection FractionSLEH ECHO HEARTLAB MKJAN CPACSInterface, External Ris In - 05/25/2020 10:54 AM CDTTransthoracic Echocardiography Report (TTE) Demographics Patient Name THIERRY PADILLA Date ofStudy 05/24/2020 KYLIE Gender Male Visit Number [id number] Race Unknown Room Number 7217 Number Date of 1965 Referring Physician Age55 year(s) [employer] Owen Valdivia Interpreting Physician BEVERLEY Roche Procedure [...] CO: 5.41 l/min LVOT CI: 3.06 l/min/m^2[facility], TESTICULAR (SCROTUM)2020-05-25 08:58:00Reason for exam:->rule out torsionFINAL [...] Signed: Roya Verde Verified Date/Time: 05/25/2020 08:58:57 [facility]16[facility]00 Test Item Value Reference Range Interpretation Comments Ferritin (test code = 03892.32 ng/mL 5-275 H 2276-4) FANTA (test code = FANTA) Behavioral Health Associate ID - EDASI Lab Interpretation (test Abnormal code = 50683-7) [facility]2020-10-05 08:16:00 Test Item Value Reference Range Interpretation Comments FERRITIN (BEAKER) (test code = 48111.32 ng/mL 5.00-275.00 H 361) Behavioral Health Associate ID - EDASICBC W/PLT COUNT & AUTO [id number] 08:02:00 Test Item Value Reference Range Interpretation [...] CONCENTRATION Decreased (CELLAVISION)(BEAKER) (test code = 3438) Behavioral Health Associate ID - Jonna Pascual comments: Slide comments:RAD, CHEST, 1 VIEW, NON [id number] 04:42:00Reason for exam:->pulmonary edemaShould this be performed [...] 04:42:11 XR chest 1 view portable / [id number] 04:42:00 Interface, External Ris In - 05/25/2020 4:44 AM CDTFINAL REPORT RAD, CHEST, 1 VIEW, NON DEPT INDICATION: pulmonary edema COMPARISON: Prior day's exam FINDINGS: Portable frontal view of the chest. IMPRESSION: Support Lines: Stable. Lungs and pleura: Unchanged venous congestion and interstitial opacities. No consolidation or effusion. No pneumothorax.Heart and mediastinum: Stable contours.Additional findings: None. Signed: Sally Renae Verified Date/Time: 05/25/2020 04:42:11 [facility], TIBC, % sat. (without ferritin)2020-05-25 04:31:00 Test Item Value Reference Range Interpretation Comments Iron (test code = 2498-4) 118.0 ug/dL 40-160 TIBC (test code = 2500-7) 170 ug/dL 250-450 L Iron % Saturation (test 69 % 20-55 H code = 2502-3) FANTA (test code = FANTA) Behavioral Health Associate ID - EDASI Lab Interpretation (test Abnormal code = 05596-8) [facility], TIBC, % SAT. (WITHOUT FERRITIN)2020-05-25 04:31:00 Test Item Value Reference Range Interpretation Comments IRON (BEAKER) (test code = 547) 118.0 ug/dL 40.0-160.0 TOTAL IRON BINDING CAPACITY 170 ug/dL 250-450 L (BEAKER) (test code = 769) IRON % SATURATION (2) (BEAKER) 69 % 20-55 H (test code = 2590) Behavioral Health Associate ID - EDASITroponin [id number] 04:23:00 Test Item Value Reference Range Interpretation Comments Troponin I (test code = 0.46 ng/mL 0-0.03 04721-5) FANTA (test code = FANTA) Troponin I [...] DB Lab Interpretation (test Abnormal code = 12337-3) [facility] [id number] 04:23:00 Test Item Value Reference Range Interpretation [...] failure, acidosis, acute neurological disease, and persistent tachyarrhythmia.Behavioral Health Associate ID - [id number] 04:20:00 Test Item Value Reference Range Interpretation Comments PHOSPHORUS (BEAKER) (test code = 10.5 mg/dL 2.3-4.7 604) Behavioral Health Associate ID - DBCOMPREHENSIVE METABOLIC [id number] 04:19:00 Test Item Value Reference Range Interpretation [...] S NOT APPLICABLE FOR DIALYSIS PATIEN TS. Behavioral Health Associate ID - [id number] 04:11:00 Test Item Value Reference Range Interpretation Comments MAGNESIUM (BEAKER) (test code = 2.0 mg/dL 1.6-2.6 627) Behavioral Health Associate ID - DBHEPATIC FUNCTION [id number] 04:11:00 Test Item Value Reference Range Interpretation [...] (test code = 9 U/L 6-55 347) Behavioral Health Associate ID - DBPT/[id number] 04:11:00 Test Item Value Reference Range Interpretation [...] is2.5-3.5 for patients wiht mechanical heart valves.Reticulocyte [id number] 04:06:00 Test Item Value Reference Range Interpretation Comments % Retic (test code = 1.5 % 0.5-1.8 64145-8) FANTA (test code = FANTA) Behavioral Health Associate ID - 6000 Lab Interpretation (test Normal code = 47187-4) [facility] CenterRETICULOCYTE [id number] 04:06:00 Test Item Value Reference Range Interpretation Comments RETICULOCYTE COUNT PCT (BEAKER) (test 1.5 % 0.5-1.8 code = 575) Behavioral Health Associate ID - 6000Lactic acid, rmrznf2132-04-32 04:05:00 Test Item Value Reference Range Interpretation Comments Lactate, Venous (test code = 0.42 mmol/L 0.5-2.2 L 2872) FANTA (test code = FANTA) Behavioral Health Associate ID - DB Lab Interpretation (test Abnormal code = 82705-0) [facility] CenterLACTIC ACID, [id number] 04:05:00 Test Item Value Reference Range Interpretation Comments LACTATE BLOOD VENOUS (2) (BEAKER) 0.42 mmol/L 0.50-2.20 L (test code = 2872) Behavioral Health Associate ID - DBCALCIUM, [id number] 04:03:00 Test Item Value Reference Range Interpretation Comments CALCIUM IONIZED (BEAKER) (test 1.02 mmol/L 1.12-1.27 L code = 698) PH, BLOOD (BEAKER) (test code = 7.44 1810) Hepatitis B surface [id number] 21:41:00 Test Item Value Reference Range Interpretation Comments HBsAg Screen (test code Nonreactive Nonreactive = 5195-3) FANTA (test code = FANTA) Specimen is considered negative for HBsAg. Lab Interpretation (test Normal code = 69073-4) [facility] CenterHEPAT[facility]IS [facility] SURFACE [id number] 21:41:00 Test Item Value Reference Range Interpretation Comments HEPATITIS B SURFACE ANTIGEN (2) Nonreactive Nonreactive (BEAKER) (test code = 2585) Specimen is considered negative for HBsAg.HEMOGLOBIN AND [id number] 20:59:00 Test Item Value Reference Range Interpretation Comments HEMOGLOBIN (BEAKER) (test code = 6.9 GM/DL 13.7-17.5 L 410) HEMATOCRIT (BEAKER) (test code = 20.8 % 40.1-51.0 L 411) Behavioral Health Associate ID - 6000TROPONIN [id number] 18:22:00 Test Item Value Reference Range Interpretation Comments TROPONIN I (BEAKER) (test code = 0.48 ng/mL 0.00-0.03 397) Troponin I (TnI) levels [...] failure, acidosis, acute neurological disease, and persistent tachyarrhythmia.Behavioral Health Associate ID - ROSIANGB-type Natriuretic Factor (BNP)2020-05-24 18:01:00 Test Item Value Reference Range Interpretation Comments BNP (test code = 10139-6) 202 pg/mL 0-100 H FANTA (test code = FANTA) Behavioral Health Associate ID - NATASHA Lab Interpretation (test Abnormal code = 99196-4) [facility] CenterB-[facility] NATRIURETIC FACTOR (BNP)2020-05-24 18:01:00 Test Item Value Reference Range Interpretation Comments B-TYPE NATRIURETIC PEPTIDE (BEAKER) 202 pg/mL 0-100 H (test code = 700) Behavioral Health Associate EVELYNE LUAIV-1 Antigen with HIV-1/2 Snfwfmjy6032-23-71 13:43:00 Test Item Value Reference Range Interpretation Comments HIV-1 Antigen with HIV 1&2 Nonreactive Nonreactive Antibody (test code = 76560-7) Lab Interpretation (test code = Normal 17224-8) [facility] CenterHIV[facility] ANTIGEN WITH HIV-1/2 [id number] 13:43:00 Test Item Value Reference Range Interpretation Comments HIV-1 ANTIGEN WITH HIV 1\\T\\2 Nonreactive Nonreactive ANTIBODY (2) (BEAKER) (test code = 2586) TROPONIN [id number] 13:42:00 Test Item Value Reference Range Interpretation [...] failure, acidosis, acute neurological disease, and persistent tachyarrhythmia.Behavioral Health Associate ID - CHERYLASIC METABOLIC [id number] 13:37:00 Test Item Value Reference Range Interpretation [...] S NOT APPLICABLE FOR DIALYSIS PATIEN TS. Behavioral Health Associate ID - [id number] 13:10:00 Test Item Value Reference Range Interpretation Comments PHOSPHORUS (BEAKER) (test code = 6.3 mg/dL 2.3-4.7 H 604) Behavioral Health Associate ID - ROSIANGHEMOGLOBIN AND [id number] 12:38:00 Test Item Value Reference Range Interpretation Comments HEMOGLOBIN (BEAKER) (test code = 7.7 GM/DL 13.7-17.5 L 410) HEMATOCRIT (BEAKER) (test code = 22.7 % 40.1-51.0 L 411) Behavioral Health Associate ID - 6000Hemoglobin [id number] 09:17:00 Test Item Value Reference Range Interpretation Comments Hemoglobin A1C (test code = 4548-4) 5.8 % 4.3-6.1 Lab Interpretation (test code = Normal 77869-8) [facility] CenterHEMOGLOBIN [id number] 09:17:00 Test Item Value Reference Range Interpretation Comments HEMOGLOBIN A1C (BEAKER) (test code = 5.8 % 4.3-6.1 368) TROPONIN [id number] 08:48:00 Test Item Value Reference Range Interpretation [...] failure, acidosis, acute neurological disease, and persistent tachyarrhythmia.Behavioral Health Associate ID - ROSIANGBASIC METABOLIC [id number] 08:33:00 Test Item Value Reference Range Interpretation [...] S NOT APPLICABLE FOR DIALYSIS PATIEN TS. Behavioral Health Associate ID - ROSIANGHEMOGLOBIN AND [id number] 08:12:00 Test Item Value Reference Range Interpretation Comments HEMOGLOBIN (BEAKER) (test code = 8.1 GM/DL 13.7-17.5 L 410) HEMATOCRIT (BEAKER) (test code = 23.5 % 40.1-51.0 L 411) Behavioral Health Associate ID - 6000Vitamin B12 and Sjfbko4214-69-09 05:56:00 Test Item Value Reference Range Interpretation Comments Vitamin B12 (test code = 237 pg/mL 568-209 9153-9) Folate (test code = 4.00 ng/mL >=7.00 L 2284-8) FANTA (test code = FANTA) Behavioral Health Associate ID - EDASI Lab Interpretation (test Abnormal code = 66442-6) [facility] CenterVITAMIN B12 AND [id number] 05:56:00 Test Item Value Reference Range Interpretation Comments VITAMIN B12 (BEAKER) (test code = 237 pg/mL 213-816 774) FOLATE (BEAKER) (test code = 362) 4.00 ng/mL >=7.00 L Behavioral Health Associate ID - EDASIBASIC METABOLIC [id number] 04:53:00 Test Item Value Reference Range Interpretation [...] S NOT APPLICABLE FOR DIALYSIS PATIEN TS. Behavioral Health Associate ID - [id number] 04:52:00 Test Item Value Reference Range Interpretation Comments PHOSPHORUS (BEAKER) (test code = 13.6 mg/dL 2.3-4.7 HH 604) Behavioral Health Associate ID - EDASICALCIUM, [id number] 04:49:00 Test Item Value Reference Range Interpretation Comments CALCIUM IONIZED (BEAKER) (test 0.96 mmol/L 1.12-1.27 L code = 698) PH, BLOOD (BEAKER) (test code = 7.23 1810) [id number] 04:42:00 Test Item Value Reference Range Interpretation Comments MAGNESIUM (BEAKER) (test code = 2.6 mg/dL 1.6-2.6 627) Behavioral Health Associate ID - EDASIHEPATIC FUNCTION [id number] 04:42:00 Test Item Value Reference Range Interpretation [...] (test code = 12 U/L 6-55 347) Behavioral Health Associate ID - EDASIPT/[id number] 04:41:00 Test Item Value Reference Range Interpretation [...] mechanical heart valves.CBC W/PLT COUNT & AUTO [id number] 04:37:00 Test Item Value Reference Range Interpretation [...] (BEAKER) (test code = 2801) LACTIC ACID, [id number] 04:29:00 Test Item Value Reference Range Interpretation Comments LACTATE BLOOD VENOUS (2) (BEAKER) 0.34 mmol/L 0.50-2.20 L (test code = 2872) Behavioral Health Associate ID - YEFRI, [id number] 04:16:00 Test Item Value Reference Range Interpretation Comments ABO Grouping (test code = 2588) O Rh Factor (test code = 2589) [facility]Symptomatic ONLY)2020-05-24 04:13:00 Test Item Value Reference Range Interpretation Comments SARS-COV2/RT-PCR Negative Not Detected, (test code = Negative, See 53454-9) external report for linked test SARS-COV-2 [facility] PERFORMING LAB (test code = 25723-6) FANTA (test code = Negative results do [...] of the Act. Fact Sheet for Healthcare Providers:https://www.nubelo/Documents/Xper t%20Xpress%20SARS%20CoV- 2/Fact%20Sheets/302-3802 %85HRFS-KGL-3%20HEALTHCA RE%20PROVIDERS%20FACT%20 SHEET.pdf Fact Sheet for Healthcare Patients:https://www.[employer]/Documents/Xpert %20Xpress%20SARS%20CoV-2 /Fact%20Sheets/302-3801% 88JZAR-FOT-0%20PATIENT%2 0FACT%20SHEET.pdf Performing Laboratory:[facility] [place], [place] [address]angel luis [address], [place] [address] [place], [place] [address]ARS-COV2/RT-PCR ([facility])2020-05-24 04:13:00 Test Item Value Reference Range Interpretation Comments SARS-COV2/RT-PCR (test code Negative Not Detected, Negative, = 9612737) See external report for linked test SARS-COV-[address] [facility] (test code = 9270265) Negative results do not preclude SARS-CoV-2 infection [...] of the Act.Fact Sheet for Healthcare Pro viders:https://www.CEYX/Documents/Xpert%20Xpress%20SARS%20CoV-2/Fact%20Sh eets/3023802%75IZHJ-MVG-0%20HEALTHCARE%20PROVIDERS%20FACT%20SHEET.pdfFact Sheet for Healthcare Patients:https://www.[employer]/Documents/Xpert%20Xpress%20SARS%20CoV-2/Fact%20Sheets/3023801%20SARS-COV -2%20PATIENT%20FACT%20SHEET.pdfPerforming Laboratory:[facility], [place] [address]VE/[id number] 03:29:00 Test Item Value Reference Range Interpretation [...] is2.5-3.5 for patients wiht mechanical heart valves.TROPONIN [id number] 02:23:00 Test Item Value Reference Range Interpretation [...] failure, acidosis, acute neurological disease, and persistent tachyarrhythmia.Behavioral Health Associate ID Joseph FUNEZ WBASIC METABOLIC [id number] 02:22:00 Test Item Value Reference Range Interpretation [...] S NOT APPLICABLE FOR DIALYSIS PATIEN TS. Behavioral Health Associate ID Joseph FUNEZ [id number] 02:21:00 Test Item Value Reference Range Interpretation Comments PHOSPHORUS (BEAKER) (test code = 14.1 mg/dL 2.3-4.7 HH 604) Behavioral Health Associate ID Joseph FUNEZ [id number] 02:16:00 Test Item Value Reference Range Interpretation Comments MAGNESIUM (BEAKER) (test code = 2.6 mg/dL 1.6-2.6 627) Behavioral Health Associate ID Joseph FUNEZ WHEPATIC FUNCTION [id number] 02:16:00 Test Item Value Reference Range Interpretation [...] (test code = 10 U/L 6-55 347) Behavioral Health Associate ID Joseph FUNEZ WB-TYPE NATRIURETIC FACTOR (BNP)2020-05-24 02:12:00 Test Item Value Reference Range Interpretation Comments B-TYPE NATRIURETIC PEPTIDE (BEAKER) 459 pg/mL 0-100 H (test code = 700) Behavioral Health Associate EVELYNE FUNEZ WCBC W/PLT COUNT & AUTO [id number] 02:11:00 Test Item Value Reference Range Interpretation [...] (BEAKER) (test code = 2801) LACTIC ACID, [id number] 02:03:00 Test Item Value Reference Range Interpretation Comments LACTATE BLOOD VENOUS (2) (BEAKER) 0.68 mmol/L 0.50-2.20 (test code = 2872) Behavioral Health Associate ID - DEE DEE ANNIEpecimejuan antonio slightly lipemicRAD, CHEST, 1 VIEW, NON DEPT [...] MDReport Verified Date/Time: 05/24/2020 01:55:13 Blood gas, [id number] 01:37:00 Test Item Value Reference Range Interpretation Comments pH, Duc (test code = 2746-6) 7.27 7.32-7.42 L pCO2, Duc (test code = 755) 26 41- 51 mmHg L pO2, Duc (test code = 2705-2) 63 25- 40 mmHg H O2 Sat, Duc (test code = 2711-0) 89.7 % 40-70 H HCO3, Duc (test code = 07534-1) 12 mmol/L 21-29 L Base Excess, Duc (test code = -14.0 mmol/L -2-3 L 1927-3) Patient Temperature (test code = 37.0 C 8310-5) FIO2 (test code = 1819) 100 % Lab Interpretation (test code = Abnormal 40722-5) [facility], [id number] 01:37:00 Test Item Value Reference Range Interpretation [...] (BEAKER) (test code = 1819) 100.0 % SXB-[id number] 00:00:00Ordered by an unspecified provider.[facility]ARS-[facility]OV2/[facility]-PCR ([facility])2020-02-23 11:58:00 Test Item Value Reference Range Interpretation Comments SARS-COV2/RT-PCR (test code = Negative Not Detected, Negative 6340717) SARS-COV-[address] [facility] (test code = 1182468) Negative result for this test determines that [...] 564(g) of the Act.Fact Sheet for Healthcare Providers:https://www.Trillium Therapeuticsidel.com/sites/default/files/product/documents/Fact_Shee h_PJ_Xktmqnzvg_Upic_XQAU-WxY-4.pdfFact Sheet for Healthcare Patients:https://www.Blend.com/sites/default/files/product/ documents/Fagw_Bibxl_Uunqvksb_Ckag_TQMV-MgO-4.pdfPerforming Laboratory:[facility] [place] [address]
[2020-07-11] MEDS ORDERED: MORPHINE 4 MG/ML SYR ONE (13:30)
[2020-07-11] MEDS ORDERED: ONDANSETRON 4 MG/2 ML VIAL ONE (13:30)
[2020-07-11 13:36] LABS: Absolute Lymphocytes (CBC) 4.4 K/uL (0.7-4.9); Basophils % 0.8 % (0-1.3); Hematocrit 25.9 % (39.6-49.0); Lymphocytes % 18.4 % (15.3-44.8); MPV 7.6 fL (7.6-11.3); RBC Red Blood Cell Count 2.66 M/uL (4.33-5.43)
[2020-07-11 14:19] LABS: ALT/SGPT 30 U/L (12-78); AST/SGOT 45 U/L (15-37); Albumin 2.9 g/dL (3.4-5.0); Alkaline Phosphatase 106 U/L (45-117); BUN Blood Urea Nitrogen 43 mg/dL (7-18); Bicarbonate 27 mmol/L (21-32); Bilirubin Direct < 0.1 mg/dL (0-0.2); Bilirubin Total 0.3 mg/dL (0.2-1.0); Glucose Level 107 mg/dL (74-106); Magnesium 2.1 mg/dL (1.8-2.4); NT PRO-BNP 5519 pg/mL (<125); Potassium 4.4 mmol/L (3.5-5.1); Protein, Total 7.6 g/dL (6.4-8.2); Sodium Level 137 mmol/L (136-145)
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
--- NOTE | 2020-07-11 14:54 | EDPHYS ---
Physician Documentation [facility] Name: Cr Orellana Age: 55 yrs Sex: Male : 1965 Arrival Date: 07/11/2020 Time: 12:47 Bed 2 Private MD: ED Physician Sebastian Rivera HPI: 07/11 16:14 This 55 yrs old Male presents to ER via Wheelchair with complaints of Hip kdr Pain, Shortness Of Breath. Historical: - Allergies: 13:13 No Known Allergies; ph - PMHx: 13:05 DIALYSIS MWF; Hypertension; seasonal allergies; zb - Immunization history:: Adult Immunizations unknown. ROS: 19:01 Constitutional: Negative for fever, chills, and weight loss, Eyes: Negative for injury, kdr pain, redness, and discharge, Neck: Negative for injury, pain, and swelling, Cardiovascular: Negative for chest pain, palpitations, and edema, Respiratory: Negative for shortness of breath, cough, wheezing, and pleuritic chest pain, Abdomen/GI: Negative for abdominal pain, nausea, vomiting, diarrhea, and constipation, Back: Negative for injury and pain, : Negative for injury, bleeding, discharge, and swelling, Skin: Negative for injury, rash, and discoloration, Neuro: Negative for headache, weakness, numbness, tingling, and seizure activity. Psych: Negative for depression, anxiety, suicide ideation, homicidal ideation, and hallucinations, Allergy/Immunology: Negative for hives, rash, and allergies, Endocrine: Negative for neck swelling, polydipsia, polyuria, polyphagia, and marked weight changes, Hematologic/Lymphatic: Negative for swollen nodes, abnormal bleeding, and unusual bruising. 19:01 MS/extremity: Positive for injury or acute deformity, decreased range of motion, pain, of the left hip and anterior aspect of right shoulder. Exam: 15:16 ECG was reviewed by the Attending Physician. kdr 19:01 Constitutional: This is a well developed, well nourished patient who is awake, alert, kdr and in no acute distress. Head/Face: Normocephalic, atraumatic. Eyes: Pupils equal round and reactive to light, extra-ocular motions intact. Lids and lashes normal. Conjunctiva and sclera are non-icteric and not injected. Cornea within normal limits. Periorbital areas with no swelling, redness, or edema. Neck: Trachea midline, no thyromegaly or masses palpated, and no cervical lymphadenopathy. Supple, full range of motion without nuchal rigidity, or vertebral point tenderness. No Meningismus. Chest/axilla: Normal chest wall appearance and motion. Nontender with no deformity. No lesions are appreciated. Cardiovascular: Regular rate and rhythm with a normal S1 and S2. No gallops, murmurs, or rubs. Normal PMI, no JVD. No pulse deficits. Respiratory: Lungs have equal breath sounds bilaterally, clear to auscultation and percussion. No rales, rhonchi or wheezes noted. No increased work of breathing, no retractions or nasal flaring. Abdomen/GI: Soft, non-tender, with normal bowel sounds. No distension or tympany. No guarding or rebound. No evidence of tenderness throughout. Back: No spinal tenderness. No costovertebral tenderness. Full range of motion. Skin: Warm, dry with normal turgor. Normal color with no rashes, no lesions, and no evidence of cellulitis. Neuro: Awake and alert, GCS 15, oriented to person, place, time, and situation. Cranial nerves II-XII grossly intact. Motor strength 5/5 in all extremities. Sensory grossly intact. Cerebellar exam normal. Normal gait. Psych: Awake, alert, with orientation to person, place and time. Behavior, mood, and affect are within normal limits. 19:01 Musculoskeletal/extremity: Extremities: noted in the left hip: decreased ROM, pain. Vital Signs: 12:57 BP 161 / 100; Pulse 95; Resp 20; Pulse Ox 100% on R/A; Pain 10/10; zb 14:00 BP 164 / 101; Pulse 92; Resp 20; Pulse Ox 100% on 1 lpm NC; zb 15:28 BP 189 / 101; Pulse 95; Resp 22; Pulse Ox 100% on 1 lpm NC; zb 16:20 BP 174 / 102; Pulse 90; Resp 20; Pulse Ox 100% on R/A; zb MDM: 14:54 Patient medically screened. kdr 19:05 Counseling: I had a detailed discussion with the patient and/or guardian regarding: the kdr historical points, exam findings, and any diagnostic results supporting the discharge/admit diagnosis, lab results, radiology results, the need for outpatient follow up. 19:05 Data reviewed: vital signs, lab test result(s), radiologic studies. [facility] 07/11 12:52 Order name: Basic Metabolic Panel; Complete Time: 14:35 kdr 07/11 12:52 Order name: CBC with Diff; Complete Time: 16:12 kdr 07/11 12:52 Order name: LFT's; Complete Time: 14:35 [facility] 07/11 12:52 Order name: Magnesium; Complete Time: 14:35 kdr 07/11 12:52 Order name: NT PRO-BNP; Complete Time: 14:35 kdr 07/11 12:52 Order name: PT-INR; Complete Time: 14:35 kdr 07/11 12:52 Order name: Troponin (emerg Dept Use Only); Complete Time: 14:35 kdr 07/11 12:52 Order name: XRAY Chest (1 view); Complete Time: 14:35 kdr 07/11 13:04 Order name: Hip Left 2 View XRAY; Complete Time: 14:35 kdr 07/11 13:04 Order name: Pelvis XRAY; Complete Time: 14:35 [facility] 07/11 15:07 Order name: CT Pelvis wo Cont; Complete Time: 16:12 kdr 07/11 16:07 Order name: Manual Differential; Complete Time: 16:12 EDMS 07/11 12:52 Order name: EKG; Complete Time: 12:53 kdr 07/11 12:52 Order name: Cardiac monitoring; Complete Time: 13:29 kdr 07/11 12:52 Order name: EKG - Nurse/Tech; Complete Time: 13:29 [facility] 07/11 12:52 Order name: IV Saline Lock; Complete Time: 13:29 [facility] 07/11 12:52 Order name: Labs collected and sent; Complete Time: 13:29 kdr 07/11 12:52 Order name: O2 Per Protocol; Complete Time: 13:28 kdr 07/11 12:52 Order name: O2 Sat Monitoring; Complete Time: 13:28 kdr EC:16 Rate is 57 beats/min. Rhythm is regular, Sinus Rhythm with No ectopy. QRS [place] is kdr Normal. NV interval is normal. QRS interval is normal. QT interval is normal. Clinical impression: Normal ECG. Administered Medications: 13:27 Drug: Zofran (Ondansetron) 4 mg Route: IVP; Site: right hand; ph 14:37 Follow up: Response: No adverse reaction zb 13:30 Drug: morphine 4 mg Route: IVP; Site: right hand; ph 14:30 Follow up: Response: No adverse reaction; Pain is decreased; RASS: Alert and Calm (0) zb 15:15 Drug: TORadol - Ketorolac 15 mg Route: IVP; Site: right hand; sv 15:30 Follow up: Response: No adverse reaction zb 15:20 Drug: Lopressor 5 mg Route: IVP; Site: right forearm; zb 16:15 Follow up: Response: No adverse reaction; Blood pressure is lowered zb Disposition: 07/11/20 14:54 Discharged to Home. Impression: Pain in left hip, Chest pain, unspecified, Pain in right shoulder. - Condition is Stable. - Discharge Instructions: Shortness of Breath, [id number], Shoulder Pain, [id number], Chest Wall Pain, [id number], Nonspecific Chest Pain, [id number], Hip Pain. - Prescriptions for Ibuprofen 600 mg Oral Tablet - take 1 tablet by ORAL route every 6 hours As needed take with food; 15 tablet. Neurontin 300 mg Oral Capsule - take 1 capsule by ORAL route every 8 hours; 30 capsule. Tramadol 50 mg Oral Tablet - take 1 tablet by ORAL route every 8 hours as needed; 12 tablet. - Medication Reconciliation Form, Thank You Letter form. - Follow up: Private Physician; When: 2 - 3 days; Reason: If symptoms return, Further diagnostic work-up, Recheck today's complaints, Continuance of care, Re-evaluation by your physician. - Problem is an acute exacerbation. - Symptoms have improved. Signatures: Dispatcher [employer] Valeria Fox RN RN Sebastian Hitchcock MD MD kdr Hall, Patricia, RN RN ph Brown, JUAN DANIEL Thomas RN zb Corrections: (The following items were deleted from the chart) 17:07 14:54 07/11/2020 14:54 Discharged to Home. Impression: Pain in left hip; Chest pain, zb unspecified; Pain in right shoulder. Condition is Stable. Forms are Medication Reconciliation Form, Thank You Letter, Antibiotic Education, Prescription Opioid Use. Follow up: Private Physician; When: 2 - 3 days; Reason: If symptoms return, Further diagnostic work-up, Recheck today's complaints, Continuance of care, Re-evaluation by your physician. Problem is an acute exacerbation. Symptoms have improved. kdr
[2020-07-11] MEDS ORDERED: KETOROLAC 30 MG/ML INJ ONE (15:21)
[2020-07-11] MEDS ORDERED: METOPROLOL TARTRATE 5 MG/5 ML INJ IV ONE (15:27)
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
[2020-07-11 16:07] LABS: Blood Morphology Comment NOTED (NOT SEEN); Platelet Estimate DECR
[2020-07-11 16:08] LABS: Howell-Jolly Bodies NOTED; Polychromasia SLIGHT
[2020-07-11 22:37] VITALS: O2SAT 100
[2020-07-11 22:41] VITALS: BP 189/101
[2020-07-15] MEDS ORDERED: KETOROLAC 30 MG/ML INJ ONE (14:52)
[2020-07-15] MEDS ORDERED: INSULIN -REGULAR HUMAN 50 UNIT/0.5 ML ML ONE (16:04)
[2020-07-15] MEDS ORDERED: ALBUTEROL INHALER 60 PUFF/8 GM IH ONE (16:05)
[2020-07-15] MEDS ORDERED: D50W 50 ML IV ONE (16:05)
[2020-07-15] MEDS ORDERED: CALCIUM GLUCONATE 1 GM IVPB 1 GM/50 ML BAG IV ONE (16:05)
== END 2020-07-11 17:07 | disposition home or self-care (01) ==
LOC: ER 12:45
DX: R07.9 Chest pain, unspecified (principal); M25.511 Pain in right shoulder; I10 Essential (primary) hypertension; Z99.2 Dependence on renal dialysis
CPT/HCPCS: 93005; 85025; 80048; 36415; 83735; 85610; 80076; 84484; 83880; 72192; 71045; 72170; 73502; 99285; J2405

== ENCOUNTER 2020-07-15 12:50 | Inpatient (IN) | payer OTHER ==
--- OUTSIDE RECORDS SUMMARY | 2020-07-15 12:54 | XMS REPORT | Clinical Summary ---
:1965 Author Organization [facility] Address [address] [place] [address] Care Team Providers Name Role Phone Unavailable [...] (end st age renal disease) on dialysis ([facility]); 06/03/2020 Severe sepsis ([facility]); Jeff Nicholas acido sis; Christopher Hematoma of thi gh, right, initial encounter; MD Donna PINA (acute kidney injury) ([facility]); Vee Hernandez Thrombocytop enia ([facility]); MD Corrine Anemia, unspecified type; Delia Matthews Gastroesophalice geal reflux disease, unspecified whether esophagitis present; MD Akilah Epigastric pain; Mustapha, Acute blood los s anemia Emanuel Valdivia MD 05/23/2020 Telephone Critical Care Santy Cardona, transfer Medicine Michael Ames MD 02/22/2020 Lab Requisition Lab after 07/15/2019 Immunizations Name Administration Dates Next Due Influenza [...] procedure are in the results section. after 07/15/2019 Results HEMODIALYSIS INPATIENT (06/03/2020 12:01 PM CDT) [...] Sig nature % Neutros 62 % [facility] % Lymphs 27 % [facility] % Monos 5 % [facility] % Myelo 3 (H) 0 - 0 % [facility] % Bands 3 0 - 10 % [facility] # Neutros 7.19 (H) 1.78 - 5.38 K/ul [facility] # Lymphs 3.13 1.32 - 3.57 K/ul [facility] # Monos 0.58 0.30 - 0.82 K/uL [facility] # Myelo 0.35 (H) 0.00 - 0.00 K/uL [facility] # Bands 0.35 0.00 - 0.80 K/uL [facility] Total Counted 100 [facility] nRBC (manual) 1 (H) 0 - 0 /100 WBC [facility] WBC Morphology Normal [facility] Large Platelet Present [facility] Anisocytosis 1+ few [facility] Microcytes 1+ few [facility] Artifact Present [facility] Platelet Conc Decreased [facility] Specimen Blood Narrative Performed At Food Processing Plant Manager ID - Chris Zack [facility] User comments: Slide comments: Performing Organization Address City/State/Zipcode Phone Number [address] [address] CENTER PT/aPTT (06/03/2020 4:07 AM CDT)Only the most recent of12 resultswithin the time period is included. Pathologist Sig nature Protime 14.1 11.9 - 14.2 seconds [facility] INR 1.12 <=5.90 [facility] PTT 38.0 (H) 22.5 - 36.0 seconds [facility] Specimen Blood Narrative Performed At Effective 01/16/2019: PT Reference Range [facility] Change New: 11.9-14.2 Previous: 11.7-14.7 RECOMMENDED COUMADIN/WARFARIN INR THERAPY RANGES STANDARD DOSE: 2.0-3.0 Includes: PROPHYLAXIS for venous thrombosis, systemic embolization; TREATMENT for venous thrombosis and/or pulmonary embolus. HIGH RISK: Target INR is 2.5-3.5 for patients wiht mechanical heart valves. Performing Organization Address City/State/Zipcode Phone Number [address] [address] CENTER Calcium, Ionized (06/03/2020 4:07 AM CDT)Only the most recent of4 resultswithin the time period is included. Pathologist Sig nature Calcium, Ion 1.17 1.12 - 1.27 mmol/L [facility] pH, Blood 7.44 [facility] Specimen Blood Performing Organization Address City/State/Zipcode Phone Number [facility] [address] [place] [address] CENTER CBC with platelet count + automated diff (06/03/2020 4:07 AM CDT)Only the most recent of13 resultswithin the time period is included. Pathologist Sig nature WBC 11.6 (H) 3.5 - 10.5 K/L [facility] RBC 2.46 (L) 4.63 - 6.08 M/L [facility] Hemoglobin 7.9 (L) 13.7 - 17.5 GM/DL [facility] Hematocrit 23.2 (L) 40.1 - 51.0 % [facility] MCV 94.3 (H) 79.0 - 92.2 fL [facility] MCH 32.1 25.7 - 32.2 pg [facility] MCHC 34.1 32.3 - 36.5 GM/DL [facility] RDW 15.9 (H) 11.6 - 14.4 % [facility] Platelets 79 (L) 150 - 450 K/CU MM [facility] MPV 10.8 9.4 - 12.4 fL [facility] nRBC 1 (H) 0 - 0 /100 WBC [facility] Specimen Blood Performing Organization Address City/State/Zipcode Phone Number [facility] [address] [place] [address] CENTER Phosphorus (06/03/2020 4:07 AM CDT)Only the most recent of7 resultswithin the time period is included. Pathologist Sig nature Phosphorus 4.3Comment: 2.3 - 4.7 mg/dL [facility] Specimen slightly [facility] Specimen Blood Narrative Performed At Food Processing Plant Manager ID - B[facility]A [facility] Performing Organization Address [facility]/Zipcode Phone Number [facility] [address] [place] [address] CENTER Magnesium (06/03/2020 4:07 AM CDT)Only the most recent of12 resultswithin the time period is included. Pathologist Sig nature Magnesium 2.0Comment: Specimen 1.6 - 2.6 mg/dL [facility] hemolyFormerly [facility] Specimen Blood Narrative Performed At Food Processing Plant Manager ID - [facility] Performing Organization Address [facility] Phone Number [address] [address] [place] Hepatic function panel (06/03/2020 4:07 AM CDT)Only the most recent of12 resultswithin the time period is included. Protein, Total 6.5Comment: 6.0 - 8.3 [facility] Specimen slightly gm/dL [facility] Albumin 3.3 (L)Comment: 3.5 - 5.0 [facility] Specimen slightly g/dL [facility] Total Bilirubin 0.3Comment: 0.2 - 1.2 [facility] Specimen slightly mg/dL [facility] Bilirubin, Direct 0.1Comment: 0.1 - 0.5 [facility] Specimen slightly mg/dL [facility] Alkaline 71 40 - 150 U/L [facility] Phosphatase [facility] AST 42 (H)Comment: 5 - 34 U/L [facility] Specimen slightly [facility] ALT 14Comment: 6 - 55 U/L [facility] Specimen slightly [facility] Specimen Blood Narrative Performed At Food Processing Plant Manager ID - BONILLA M [facility] Performing Organization Address City/State/Zipcode Phone Number [facility] [address] [place] [address] CENTER Comprehensive metabolic panel (06/03/2020 4:07 AM CDT)Only the most recent of4 resultswithin the time period is included. Protein, Total 6.5Comment: 6.0 - 8.3 [facility] Specimen slightly gm/dL [facility] Albumin 3.3 (L)Comment: 3.5 - 5.0 [facility] Specimen slightly g/dL [facility] Alkaline 71 40 - 150 U/L [facility] Phosphatase [facility] Total Bilirubin 0.3Comment: 0.2 - 1.2 [facility] Specimen slightly mg/dL [facility] Sodium 134 (L) 136 - 145 [facility] meq/L [facility] Potassium 5.1Comment: 3.5 - 5.1 [facility] Specimen slightly meq/L [facility] Chloride 96 (L) 98 - 107 [facility] meq/L [facility] CO2 24 22 - 29 meq/L [facility] BUN 60 (H) 7 - 21 mg/dL [facility] Creatinine 9.02 (H)Comment: 0.57 - 1.25 [facility] Specimen slightly mg/dL [facility] Glucose 89 70 - 105 [facility] mg/dL [facility] Calcium 9.2 8.4 - 10.2 [facility] mg/dL [facility] AST 42 (H)Comment: 5 - 34 U/L [facility] Specimen [facility] ALT 14Comment: 6 - 55 U/L [facility] EGFR 6Comment: mL/min/1.73 [facility] ESTIMATED GFR IS sq [facility] NOT ACCURATE [facility]ENTER CREATININE CLEARANCE IN PREDICTING GLOMERULAR FILTRATION RATE. ESTIMATED GFR IS NOT APPLICABLE FOR DIALYSIS PATIENTS. Specimen Blood Narrative Performed At Food Processing Plant Manager ID - BONILLA Moore [facility] Performing Organization Address City/[facility]/Zipcode Phone Number [facility] [address] [place] [address] CENTER Prepare Leuko-Red RBC (06/02/2020 11:54 PM CDT)Only the most recent of3 results within the time period is included. Pathologist Sig nature CROSSMATCH COMPATIBLE SAFETRACE TX Unit ABO O Pos SAFETRACE TX UNIT NUMBER [id number] SAFETRACE TX Status TX_TIMEINCHART SAFETRACE TX Blood Bank Product RED BLOOD CELLS SAFETRACE TX PRODUCT CODE [id number] SAFETRACE [place] Specimen Other Performing Organization Address [facility] Phone Number [facility] [place] Basic Metabolic Panel (06/02/2020 3:56 AM CDT)Only the most recent of12 results within the time period is included. Sodium 135 (L) 136 - 145 meq/L [facility] Potassium 4.7 3.5 - 5.1 meq/L [facility] Chloride 98 98 - 107 meq/L [facility] CO2 25 22 - 29 meq/L [facility] BUN 36 (H) 7 - 21 mg/dL [facility] Creatinine 6.44 (H) 0.57 - 1.25 [facility] mg/dL [facility] Glucose 96 70 - 105 mg/dL [facility] Calcium 8.6 8.4 - 10.2 [facility] mg/dL [facility] EGFR 9Comment: ESTIMATED mL/min/1.73 sq [facility] GFR IS NOT [facility] ACCURATE [place] CREATININE CLEARANCE IN PREDICTING GLOMERULAR FILTRATION RATE. ESTIMATED GFR IS NOT APPLICABLE FOR DIALYSIS PATIENTS. Specimen Blood Narrative Performed At Food Processing Plant Manager ID - MARQUIS [facility] Performing Organization Address City/[facility] Facility[facility] Phone Number [address] [phone] CENTER Transfuse Leuko-Red RBC (06/01/2020 10:33 PM CDT)Only the most recent of3 resultswithin the time period is included.POC-Glucose meter (06/01/2020 10:11 PM CDT) POC-Glucose Meter 99 70 - 110 mg/dL [facility] Comment: [facility] : TESTED AT [address], [address] CENTER : Food Processing Plant Manager/Dye Blender ID = [id number] for Jerson Morales Specimen Blood Performing Organization Address [facility]/Zipcode Phone Number [address] [address] CENTER Hepatitis B surface antibody (06/01/2020 7:23 PM CDT) Pathologist Sig nature Hep B S Ab 27.2 (H) <8.0 mIU/mL [facility] Specimen Blood Narrative Performed At Food Processing Plant Manager ID - DB [facility] Performing Organization Address City/[facility]/Zipcode Phone Number [address] [address] CENTER Type and screen, automated (05/31/2020 9:50 AM CDT)Only the most recent of2 resultswithin the time period is included. Pathologist Sig nature ABO/RH AUTOMATED O POSITIVE [facility] (BEAKER) [facility] Ab Scrn NEGATIVE [facility] Specimen Blood Performing Organization Address [facility]/Zipcode Phone Number [address] [address] Hemoglobin and hematocrit (05/31/2020 9:50 AM CDT)Only the most recent of6 resultswithin the time period is included. Pathologist Sig nature Hemoglobin 7.2 (L) 13.7 - 17.5 GM/DL [facility] Hematocrit 21.2 (L) 40.1 - 51.0 % [facility] Specimen Blood Narrative Performed At Food Processing Plant Manager ID - [id number] [facility] Performing Organization Address [facility] Phone Number [facility] [address] [place] [address] [place] Hepatitis panel, acute (05/28/2020 2:19 PM CDT) Pathologist Sig nature Hep A IgM Nonreactive Nonreactive [facility] Hep B C IgM Nonreactive Nonreactive [facility] Hepatitis C Ab Reactive (A) Nonreactive [facility] HBsAg Screen Nonreactive Nonreactive [facility] Specimen Blood Narrative Performed At Food Processing Plant Manager ID - DB [facility] Performing Organization Address [facility] Phone Number [address] [address] CENTER D-dimer (05/28/2020 3:59 AM CDT)Only the most recent of3 resultswithin the time period is included. Pathologist Sig nature D-Dimer, Quant 3.35 (H) <0.50 MG/L FEU [facility] Specimen Blood Narrative Performed At Intended Use: The D-Dimer Assay can be used [facility] to aid in the diagnosis of Deep Vein Thrombosis (DVT) and Pulmonary Embolism Disease (PED). In patients with low pre-test probability, various studies concerning STA Liatest D-dimer test have reported that with a cutoff value of 0.50 MG/L FEU, the Negative Predictive Value (NPV) regarding the exclusion of thrombosis is within 95-100% range. Performing Organization Address City/[facility] Facility[facility] Phone Number [facility] [address] [place] [address] [place] REPORT OF PROCEDURE - ENDOSCOPY URL (05/27/2020 8:30 AM CDT) Narrative Performed At This result has an attachment that is no t available. Tissue Exam (05/27/2020 8:20 AM CDT) Case Report Surgical Pathology Report Case: [id number] [facility] Authorizing Provider: Myrna Tijerina MD Collected: 05/27/2020 08:20 AM [facility] Ordering Location: [address] Received: 05/27/2020 02:50 PM [facility] Pathologist: Rosa Cisneros MD Specimens: A) - Biopsy, G astric, random biopsies R/O H. pylori B) - Biop sy, Gastroesophageal Junction, random biopsies R/O Islas's DIAGNOSIS A. STOMACH, ENDOSCOPIC MUCOSAL BIOPSIES C 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 GASTROESOPHAGEAL JUNCTION, ENDOSCOPIC MUCOSAL BIOPS IES - SQUAMOCOLUMNAR MUCOSA WITH ACTIVE CARDITIS - NEGATIVE FOR SPECIALIZED ISLAS METAPLASIA Signing Pathologist Direct Phone Line: COMMENT . [facility] CPT Code(s) 20923 x2, 84973 [facility] CLINICAL HISTORY Anemia [facility] SPECIMEN SOURCE A. Random gastric biopsy, rule out H. Pylori [facility] B. Random GE junction biopsy, rule out Islas's [facility] GROSS DESCRIPTION A. Received in formalin labe led with the patient's name, medical record number and "gastric biopsy" are two pieces of rees-white mucosa- covered tissue that measure 0.5 x 0.3 x 0.2 cm in aggregate. The sp [facility] ecimen is submitted in toto following filtration in ca ssette A1. [facility] B. Received in formalin labe led with [...] inflammation is present. The oxyntic mucosa s [facility] DESCRIPTION hows no significant inflamma tion. Warthin stain for Helicobacter pylori is negative. There is no dysplasia or carcinoma. [facility] [place] B. Section shows gastroesoph ageal junctional mucosa and squamous (eosphageal) mucosa. The squamous (esophageal) component of GE junctional mucosa shows intercellular edema and elongated vascular papilla e and the columnar mucosa sh ows chronic inflammation with rare neutrophils. No goblet cell metaplasia is seen. SPECIAL STUDIES The interpretation of this c ase included the use of immunohistochemistry or special stains. [facility] Control Slides Examined: In -house known positive controls were evaluated along with the test tissue. These control slides run alongside of the patients sample show appropriate staining. [facility] antony and negative controls when available are evaluated Immunohistochemistry technic al testing was performed at [facility] Pathology Laboratory where it was developed and its performance characteristics were determined. It has not be en cleared or approved by [facility] U.S. Food and Drug Administration. The FDA has determined that such clearance or approval is not necessary. The test is used for clinical purposes. It should not be regarde d as investigational or for research. This laboratory is certified under the Clinical Laboratory Improvement Amendments of 1988 (CLIA-88) as qualified to perform high complexity clinical laboratory testing. Gross assessment [facility] was performed at [facility]ology, [address] [place] [id number], Technical [facility] component was [facility] performed at Pathology, [address] [place] [id number], Professional [facility] component was [facility] performed at Pathology, [address] [place] [id number], Specimen Tissue - Gastric biopsy sample (specimen ) Tissue specimen (specimen) - Biopsy, Gas troesophageal Junction Performing Organization Address City/State/Zipcode Phone Number [facility] [address] [place] [address] CENTER Manual Differential (05/27/2020 3:40 AM CDT) % Neutros (manual) 63 % [facility] % Lymphs (manual) 17 % [facility] % Monos (manual) 4 % [facility] % Eos (manual) 3 % [facility] % Baso (manual) 1 % [facility] % Metamyelo (manual) 3 (H) 0 - 0 % [facility] % Bands (manual) 3 0 - 10 % [facility] % Atypical Lymphs 6 (H) 0 - 0 % [facility] # Neutros (manual) 7.12 1.80 - 8.00 [facility] # Lymphs (manual) 1.92 1.48 - 4.50 [facility] # Monos (manual) 0.45 0.00 - 1.30 [facility] # Eos (manual) 0.34 0.00 - 0.50 [facility] # Baso (manual) 0.11 0.00 - 0.20 [facility] # Metamyelo (manual) 0.34 (H) 0.00 - 0.00 [facility] # Bands (manual) 0.3 0.0 - 0.8 KL [facility] # Atypical Lymphs 0.68 (H) 0.00 - 0.00 [facility] Total Counted 100 [facility] Bands plus Segmented 7.46 [facility] nRBC (manual) 1 (H) 0 - 0 /100 WBC [facility] WBC Morphology Normal [facility] Platelet Morphology Normal [facility] Anisocytosis 1+ few [facility] Ovalocytes 1+ few [facility] Specimen Blood Performing Organization Address City/[facility] Phone Number [address] [address] CENTER TRANSFUSION SERVICE REPORT - SCAN (05/26/2020 6:21 PM CDT)Only the most recent of2 resultswithin the time period is included. Narrative Performed At This result has an attachment that is no t available. Hepatitis C PCR, Quantitative (05/26/2020 12:26 PM CDT) HCV PCR, HCV RNA not HCV RNA not [facility] Quantitative detected detected [facility] Specimen Blood Narrative Performed At This test uses a Real-Time Polymerase Chain [facility] Reaction (RT-PCR) methodology and was performed using [employer] Ampliprep/[employer] TaqMan HCV test kit version 2.0 ([employer]). Reportable range for this assay is 15 - 100,000,000 IU per mL (1.18 - 8.00 Log IU/mL). Performing Organization Address [facility] Phone Number [address] [address] CENTER TSH/Free T4 If Indicated (05/25/2020 7:14 PM CDT) Pathologist Sig nature TSH 3.581 0.350 - 4.940 uIU/mL [facility] Specimen Blood Narrative Performed At Food Processing Plant Manager ID - JR F [facility] Performing Organization Address City/[facility]/Zipcode Phone Number [address] [address] CENTER Prothrombin time/INR (05/25/2020 11:42 AM CDT) Pathologist Sig nature Protime 14.6 (H) 11.9 - 14.2 seconds [facility] INR 1.17 <=5.90 [facility] Specimen Blood Narrative Performed At Effective 01/16/2019: PT Reference Range [facility] Change New: 11.9-14.2 Previous: 11.7-14.7 RECOMMENDED COUMADIN/WARFARIN INR THERAPY RANGES STANDARD DOSE: 2.0-3.0 Includes: PROPHYLAXIS for venous thrombosis, systemic embolization; TREATMENT for venous thrombosis and/or pulmonary embolus. HIGH RISK: Target INR is 2.5-3.5 for patients wiht mechanical heart valves. Performing Organization Address City/[facility] Phone Number [address] [address] CENTER Lactate dehydrogenase (LDH) (05/25/2020 11:42 AM CDT) Pathologist Sig nature LDH 341 (H) 125 - 220 U/L [facility] Specimen Blood Narrative Performed At Food Processing Plant Manager ID - JR Crump [facility] Performing Organization Address City/[facility] Facility[facility] Phone Number [address] [address] CENTER Peripheral Blood Smear - Path Review (05/25/2020 3:42 AM CDT) Pathologist Review Macrocytic anemia, [facility] anisopoikilocytosis, MEDICAL CENTER with rare schistocytes (0.8 per HPF). WBCs with mild left shift, including occasional myeloid precursors, no blasts seen. Few hypersegmented neutrophils. Thrombocytopenia with unremarkable morphology. Pathologist: Maddie Leon [facility] Bebeto Dsouza [facility] Specimen Blood Performing Organization Address City/[facility] Facility[facility] Phone Number [address] [address] CENTER Troponin I (05/25/2020 3:42 AM CDT)Only the most recent of5 resultswithin the time period is included. Pathologist Sig nature Troponin I 0.46 (HH) 0.00 - 0.03 ng/mL [facility] Specimen Blood Narrative Performed At Troponin I (TnI) levels must be interpreted [facility] in the context of the presenting symptoms and the clinical findings. Elevated TnI levels indicate myocardial damage, but are not specific for ischemic heart disease. Elevated TnI levels are seen in patients with other cardiac conditions (including myocarditis and congestive heart failure), and slight TnI elevations occur in patients with other conditions, including sepsis, renal failure, acidosis, acute neurological disease, and persistent tachyarrhythmia. [employer] Processing [employer] Manager ID - DB Performing Organization Address [facility] Facility[facility] Phone Number [address] [address] CENTER Lactic acid, venous (05/25/2020 3:42 AM CDT)Only the most recent of3 results within the time period is included. Pathologist Sig nature Lactate, Venous 0.42 (L) 0.50 - 2.20 [facility] mmol/L [facility] Specimen Blood Narrative Performed At Food Processing Plant Manager ID - DB [facility] Performing Organization Address [facility] Phone Number [address] [address] CENTER Reticulocyte count (05/25/2020 3:42 AM CDT) Pathologist Sig nature % Retic 1.5 0.5 - 1.8 % [facility] Specimen Blood Narrative Performed At [employer] Processing Plant Manager ID - [id number] [facility] Performing Organization Address [facility] Facilitycola Phone Number [address] [address] CENTER Iron, TIBC, % sat. (without ferritin) (05/25/2020 3:41 AM CDT) Pathologist Sig nature Iron 118.0 40.0 - 160.0 [facility] ug/dL [facility] TIBC 170 (L) 250 - 450 ug/dL [facility] Iron % Saturation 69 (H) 20 - 55 % [facility] Specimen Blood Narrative Performed At Food Processing Plant Manager ID - MARQUIS [facility] Performing Organization Address City/[facility]/Zipcode Phone Number [facility] [address] [place], [place] [phone] CENTER Haptoglobin (05/25/2020 3:41 AM CDT) Pathologist Sig nature Haptoglobin 172 14 - 258 mg/dL [facility] Specimen Blood Narrative Performed At [employer] Processing Plant Manager ID - JR Crump [facility] Performing Organization Address City/[facility]/Zipcode Phone Number [facility] [address] [place] [address] CENTER Ferritin (05/25/2020 3:41 AM CDT) Pathologist Sig nature Ferritin 10,294.32 (H) 5.00 - 275.00 [facility] ng/mL [facility] Specimen Blood Narrative Performed At Food Processing Plant Manager ID - MARQUIS [facility] Performing Organization Address City/[facility] Facility[facility] Phone Number [facility] [address] [place] [phone] [facility] XR chest 1 view portable / bedside [...] 4:42:11 Performing Organization Address City/State/Zipcode Phone Number [employer] [employer] US testicular (scrotum) (05/25/2020 1:24 AM CDT) Specimen Narrative Performed At FINAL REPORT [employer] TECHNIQUE: Grayscale, color Doppler, and spectral Doppler [...] Sig nature HBsAg Screen Nonreactive Nonreactive [facility] Specimen Blood Narrative Performed At Specimen is considered negative for HBsAg. [facility] Performing Organization Address City/State/Zipcode Phone Number [facility] [address] [place] [address] CENTER Drug Test, General Toxicology, Urine (05/24/2020 6:40 PM CDT) Acetone(Quest) None Detected [facility] Methanol([facility]) None Detected [facility] Drug Test,Genrl see note [facility] Tox,U Comment: [facility] The following compounds were detected: Cotinine (Nicotine Metabolite) Morphine Acetaminophen Hydromorphone Hydrocodone Benzoylecgonine (Cocaine Metabolite) Cyclobenzaprine For a list of compounds and limits of detection go to: http://education.Apparcando/faq/CET395 ISOPROPANOL None Detected [facility] ETHANOL None Detected [facility] Comment: [facility]POR[facility] Volatile Limit of Detectio n: 5 mg/dL This test was developed and its analytical performance characteristics have been determined by [employer] [place], [place]. It has not been cleared or approved by the U.S. Food and Drug Administration. This assay has been validated pursuant to the CLIA regulations and is used for clinical purposes. Specimen Urine Narrative Performed At Performing Lab [facility] [address] [employer] [facility], [address] [facility] [place] [address] Mckenna Lopez MD, PhD Performing Organization Address City/[facility]/Zipcode Phone Number [facility] [address] [facility] [address] [facility] B-type Natriuretic Factor (BNP) (05/24/2020 5:32 PM CDT)Only the most recent of 2 resultswithin the time period is included. Pathologist Sig nature BNP 202 (H) 0 - 100 pg/mL [facility] Specimen Blood Narrative Performed At Food Processing Plant Manager ID - NATASHA [facility] Performing Organization Address City/State/Zipcode Phone Number [facility] [address] [place] [address] CENTER 2D Echo W/Doppler(CW/PW/Color) (05/24/2020 9:17 AM CDT) Pathologist Sig nature Ejection Fraction [facility] Specimen Narrative Performed At Transthoracic Echocardiography Report (T TE) [facility] Demographics Patient Name THIERRY PADILLA Date of Study 05/24/2020 KYLIE Gender Male Visit Number [id number] Race Unknown Room Number 7217 Number Date of 1965 Referring Physician Age 55 year(s) 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 Lopes Able Seaman Owen Valdivia Interpreting Renato barr Physician Procedure [...] Study 05/24/2020 KYLIE Gender Male Visit Number [id number] Race Unknown Room N [facility] 7217 Number Date of 1965 Referr ing Physician Age 55 year(s) 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 Moses Able Seaman Owen Valdivia Intermckenna reting Greg Roche MD [...] CDT) Pathologist Sig nature ABO Grouping O [facility] [place] Rh Factor POS [facility] Specimen Blood Performing Organization Address City/[facility]/Zipcode Phone Number [address] [address] Vitamin B12 and Folate (05/24/2020 3:48 AM CDT) Pathologist Sig [facility] Vitamin B12 237 213 - 816 pg/mL [facility] Folate 4.00 (L) >=7.00 ng/mL [facility] Specimen Blood Narrative Performed At Food Processing Plant Manager ID - MARUQIS [facility] Performing Organization Address City/[facility] Phone Number [address] [address] [place] HIV-1 Antigen with HIV-1/2 Antibody (05/24/2020 3:48 AM CDT) Pathologist Sig [facility] HIV-1 Antigen with Nonreactive Nonreactive [facility] HIV 1&[address] [facility] Specimen Blood Performing Organization Address City/[facility] Facility[facility] Phone Number [address] [address] [place] Hemoglobin A1c (05/24/2020 3:48 AM CDT) Pathologist Sig [facility] Hemoglobin A1C 5.8 4.3 - 6.1 % [facility] Specimen Blood Performing Organization Address City/[facility] Phone Number [address] [address] CENTER Blood Culture - Routine (Right Venipuncture) (05/24/2020 3:34 AM CDT)Only the most recent of2 resultswithin the time period is included. Pathologist Sig nature Result No growth in 5 days [facility] Specimen Blood - Entire right upper arm (body str ucture) Performing Organization Address City/State/Zipcode Phone Number [facility] [address] [place] [address] CENTER SARS-CoV2/RT-PCR (Symptomatic ONLY) (05/24/2020 2:33 AM CDT)Only the most recent of2 resultswithin the time period is included. SARS-COV2/RT-PCR Negative Not Detected, [facility] Negative, See [facility] external report CENTER for linked test [facility]OV[facility]2 [facility] Specimen Other - Nasopharyngeal wall structure (b alicia structure) Narrative Performed At Negative results do not preclude SARS-CoV-2 [facility] infection and should not be used as [...] the Act. Fact Sheet for Healthcare Providers: https://www.[employer]Par[employer]/Documents/Xpert%20Xpre ss%20SARS%20CoV-2/Fact%20Sheets/302-4788%20SAR S-COV-2%20HEALTHCARE%20PROVIDERS%20FACT%20SHEE T.pdf Fact Sheet for Healthcare Patients: https://www.Splore/Documents/Xpert%20Xpre ss%20SARS%20CoV-2/Fact%20Sheets/302-3801%20SAR S-COV-2%20PATIENT%20FACT%20SHEET.pdf Performing Laboratory: [facility] [address] [place] [address]. [place] [address] Performing Organization Address City/[facility]/Zipcode Phone Number [facility] [address] [place], [place] [phone] [place] Blood gas, venous (05/24/2020 1:28 AM CDT) Pathologist Sig nature pH, Raquel 7.27 (L) 7.32 - 7.42 [facility] pCO2, Raquel 26 (L) 41 - 51 mmHg [facility] pO2, Raquel 63 (H) 25 - 40 mmHg [facility] O2 Sat, Raquel 89.7 (H) 40.0 - 70.0 % [facility] HCO3, Raquel 12 (L) 21 - 29 mmol/L [facility] Base Excess, Raquel -14.0 (L) -2.0 - 3.0 [facility] mmol/L [facility] Patient Temperature 37.0 C [facility] FIO2 100.0 % [facility] Specimen Blood Performing Organization Address City/[facility] Facility[facility] Phone Number [facility] [address] [place] [address] [place] EKG-SCANNED (05/24/2020) Narrative Performed At This result has an attachment that is no t available. Ordered by an unspecified provider. after 07/15/2019 Advance Directives For more information, please contact: [phone] Code Status Date Activated Date Inactivated Comments Full Code 05/24/2020 1:02 AM 06/03/2020 4:31 PM This code status was determined by: Patient
--- OUTSIDE RECORDS SUMMARY | 2020-07-15 12:57 | XMS REPORT | Continuity of Care Document ---
:1965 Author Organization [facility] t Address [address] [place] [address] Care Team Providers Name Role Phone Kwaku Miguel MD Attending Clinician [phone] Donna Nicholas MD Attending Clinician David LOWERY, P. Attending Clinician Akilah Matthews MD Attending Clinician Shea Luciano MD Attending Clinician Akbar Monsalve MD Attending Clinician Unavailable Ariana LOWERY, Yaakov Attending Clinician KWAKU MIGUEL Attending Clinician Unavailable Verónica Delgadillo DO Attending Clinician KWAKU MIGUEL Admitting Clinician Unavailable Payers Payer Name Policy Type Policy Effective Date Expiration Date Sour ce Number MEDICAREMEDICARE A [id number] 2020 ANALILIA [place] [id number] 2019- 00:00:00 - Medical PresentMedicare Center MEDICAIDMEDICAID OF [id number] 2020 ANALILIA [place] [id number] 00:00:00 - Medical 0-PresentMedicaid Center Problems Condition [...] Allergy 0-04 [facility] - [facility]: Medical 00 [place] Social History Social Habit Start Date Stop Date Quantity Comments Source Sex Assigned At [facility] Smoking Status Start Date Stop Date Source Former smoker 2020-05-27 00:00:00 2020-05-27 00:00:[address] [facility] Medications Ordered Filled Start Stop Current [...] Source Name Name Influenza Four-QIV 2020-05-25 Completed [facility] PF 3YR+ 00:00:00 Medical Center Vital Signs Vital Name Observation Time Observation Value Comments Source Systolic blood 2020-06-03 11:45:00 129 mm[Hg] [facility] Diastolic blood 2020-06-03 11:45:00 81 mm[Hg] [facility] Heart rate 2020-06-03 11:45:00 80 /min [facility] Body temperature 2020-06-03 11:45:00 36.72 Gissell [facility] Respiratory rate 2020-06-03 11:45:00 19 /min [facility] Oxygen saturation in 2020-06-03 11:45:00 97 /min [facility] Arterial blood by Medical Ce nter Pulse oximetry Body weight 2020-06-03 04:52:00 69.9 kg [facility] BMI 2020-06-03 04:52:00 24.88 kg/m2 [facility] Body height 2020-05-24 00:30:00 167.6 cm [facility] Procedures Procedure Date / Time Performed Performing Clinician Sourc e HEMODIALYSIS INPATIENT 2020-06-03 12:01:00 Marlo Hernandez [facility] MAGNESIUM 2020-06-03 04:07:[address] [facility] PT/APTT 2020-06-03 04:07:[address] [facility] HEPATIC FUNCTION PANEL 2020-06-03 04:07:00 Kanwal Sonido [facility] CALCIUM, IONIZED 2020-06-03 04:07:00 David [facility] COMPREHENSIVE METABOLIC 2020-06-03 04:07:00 David [facility] PHOSPHORUS 2020-06-03 04:07:00 David [facility] CBC W/PLT COUNT & AUTO 2020-06-03 04:07:00 Kanwal Sonido [facility] (CELLAVISION MANUAL DIFF) 2020-06-03 04:07:00 Sonido Schofield [facility] PREPARE LEUKO-REDUCED RBC 2020-06-02 23:54:00 Delia Matthews [facility] BASIC METABOLIC PANEL (7) 2020-06-02 03:56:00 Sonido Schofield [facility] MAGNESIUM 2020-06-02 03:56:[address] [facility] PT/APTT 2020-06-02 03:56:[address] [facility] HEPATIC FUNCTION PANEL 2020-06-02 03:56:00 Kanwal Sonido [facility] CBC W/PLT COUNT & AUTO 2020-06-02 03:56:00 Sonido Schofield [facility] (CELLAVISION MANUAL DIFF) 2020-06-02 03:56:00 Sonido Schofield [facility] TRANSFUSE LEUKO-REDUCED 2020-06-01 22:33:[address] [facility] RED BLOOD CELLS [facility] POCT-GLUCOSE METER 2020-06-01 22:11:00 Delia Matthews [facility] HEPATITIS B SURFACE 2020-06-01 19:23:00 [facility] BASIC METABOLIC PANEL (7) 2020-06-01 04:32:00 Sonido Schofield [facility] MAGNESIUM 2020-06-01 04:32:[facility] 2020-06-01 [facility]:32[facility] PANEL 2020-06-01 04:32:[address] [facility] CBC W/PLT COUNT & AUTO 2020-06-01 04:32:00 [facility] (CELLAVISION MANUAL DIFF) 2020-06-01 04:32:00 [facility] HEMOGLOBIN AND HEMATOCRIT 2020-05-31 09:50:00 Cassie [facility] TYPE AND SCREEN, 2020-05-31 09:50:00 Delia Matthews [facility] BASIC METABOLIC PANEL (7) 2020-05-31 05:34:[address] [facility] MAGNESIUM 2020-05-31 05:34:00 [facility] 2020-05-31 05:34:00 [facility] HEPATIC FUNCTION PANEL 2020-05-31 05:34:[address] [facility] CBC W/PLT COUNT & AUTO 2020-05-31 05:34:00 [facility] (CELLAVISION MANUAL DIFF) 2020-05-31 05:34:00 [facility]IC [facility]OLIC PANEL (7) 2020-05-30 04:39:[address] [address] [facility] MAGNESIUM 2020-05-30 04:39:00 [facility] PT[facility]APTT 2020-05-30 04:39:00 [facility] HEPATIC FUNCTION PANEL 2020-05-30 04:39:[address] [facility] CBC W/PLT COUNT & AUTO 2020-05-30 04:39:00 Demargema [facility] (CELLAVISION MANUAL DIFF) 2020-05-30 04:39:[address] [facility] BASIC METABOLIC PANEL (7) 2020-05-29 04:50:00 [facility] 2020-05-29 04:50:[address] [facility] PT/APTT 2020-05-29 04:50:[address] [facility] HEPATIC FUNCTION PANEL 2020-05-29 04:50:[address] [facility] PHOSPHORUS 2020-05-29 04:50:00 Christofer Concepcion [facility] CBC W/PLT COUNT & AUTO 2020-05-29 04:50:00 Demargema [facility] (CELLAVISION MANUAL DIFF) 2020-05-29 04:50:[address] [facility] HEPATITIS PANEL, ACUTE 2020-05-28 14:19:00 Delia Matthews [facility] D-DIMER 2020-05-28 03:59:00 Delia Matthews [facility] BASIC METABOLIC PANEL (7) 2020-05-28 03:59:00 SerSonido ribeiro [facility] MAGNESIUM 2020-05-28 03:59:[address] [facility] PT/APTT 2020-05-28 [facility]:59[facility] 2020-05-28 03:59:[address] [facility] COMPREHENSIVE METABOLIC 2020-05-28 03:59:00 Delia Matthews [facility] CBC W/PLT COUNT & AUTO 2020-05-28 03:59:[address] [facility] S [facility] DIFFERENTIAL [facility] (CELLAVISION MANUAL DIFF) 2020-05-28 03:59:00 Sonido Schofield [facility] REPORT OF PROCEDURE - 2020-05-27 08:30:04 Myrna Monsalve [facility] ENDOSCOPY [facility] TISSUE EXAM 2020-05-27 08:20:00 Myrna Monsalve [facility] UPPER ENDOSCOPY,BIOPSY 2020-05-27 07:59:00 [facility] BASIC METABOLIC PANEL (7) 2020-05-27 03:40:00 Sonido Schofield [facility] MAGNESIUM 2020-05-27 03:40:[address] [facility] PT/APTT 2020-05-27 03:40:[address] [facility] HEPATIC FUNCTION PANEL 2020-05-27 03:40:00 Kanwal Sonido [facility] CBC W/PLT COUNT & AUTO 2020-05-27 03:40:[address] [facility] S [facility] DIFFERENTIAL [facility] (MANUAL DIFFERENTIAL) 2020-05-27 03:40:00 Delia Matthews [facility] TRANSFUSION SERVICE 2020-05-26 18:21:41 Provider, Christopher [facility] - SCAN [facility] HEPATITIS C PCR, 2020-05-26 12:26:00 Vee Hernandez [facility] D-DIMER 2020-05-26 12:26:00 Vee Hernadnez [facility] BASIC METABOLIC PANEL (7) 2020-05-26 03:50:00 SerSonido ribeiro [facility] MAGNESIUM 2020-05-26 03:50:[address] [facility] PHOSPHORUS 2020-05-26 03:50:[address] [facility] [facility] PT/APTT 2020-05-26 03:50:[address] [facility] [address] [facility] HEPATIC FUNCTION PANEL 2020-05-26 03:50:[address] [facility] CALCIUM, IONIZED 2020-05-26 03:50:00 Sergema [facility] COMPREHENSIVE METABOLIC 2020-05-26 03:50:00 Marlo Hernandez [facility] CBC W/PLT COUNT & AUTO 2020-05-26 03:50:00 [facility] (CELLAVISION MANUAL DIFF) 2020-05-26 03:50:[address] [facility] PREPARE LEUKO-REDUCED RBC 2020-05-25 23:54:[address] [facility] TSH/FREE T4 IF INDICATED 2020-05-25 19:14:00 Vee Hernandez [facility] HEMOGLOBIN AND HEMATOCRIT 2020-05-25 19:14:00 Av Layo [facility] TRANSFUSION SERVICE 2020-05-25 18:01:32 Christopher Rivas [facility] HEMOGLOBIN AND HEMATOCRIT 2020-05-25 11:42:00 Ley Layo [facility] LACTATE DEHYDROGENASE 2020-05-25 11:42:00 [place] Layo [facility] ([facility]) [facility] PROTHROMBIN TIME/INR 2020-05-25 11:42:00 [place] [facility] D-DIMER 2020-05-25 11:42:00 [place] [facility] CBC W/PLT COUNT & AUTO 2020-05-25 11:42:00 Av Layo [facility] DIFFERENTIAL [facility] TROPONIN I 2020-05-25 03:42:[address] [facility] MAGNESIUM 2020-05-25 03:42:[address] [facility] PHOSPHORUS 2020-05-25 03:42:[address] [facility] HEPATIC FUNCTION PANEL 2020-05-25 03:42:[address] [facility] CALCIUM, IONIZED 2020-05-25 03:42:00 Kanwal [facility] LACTIC ACID, VENOUS 2020-05-25 03:42:[address] [facility] COMPREHENSIVE METABOLIC 2020-05-25 03:42:00 [facility] 2020-05-25 03:42:00 [facility] PERIPHERAL BLOOD SMEAR - 2020-05-25 03:42:00 Bala Genao [facility] - PATHOLOGIST REVIEW [facility] W/PLT COUNT & AUTO 2020-05-25 03:42:00 Kanwal [facility] DIFFERENTIAL [facility] (CELLAVISION MANUAL DIFF) 2020-05-25 03:42:[address] [facility] PT/APTT 2020-05-25 03:41:[address] [facility] IRON, TIBC, % SAT. 2020-05-25 03:41:00 [facility] (WITHOUT F[facility]IN[facility] 2020-05-25 03:41:00 [facility] HAPTOGLOBIN 2020-05-25 03:41:00 [facility] XR CHEST 1 VIEW 2020-05-25 02:00:00 [facility] PORTABLE/BEDSIDE [facility] US TESTICULAR (SCROTUM) 2020-05-25 01:24:00 [facility] TRANSFUSE LEUKO-REDUCED 2020-05-25 01:22:54 [facility]LOOD [facility]LL[facility] PREPARE LEUKO-REDUCED RBC 2020-05-24 21:55:00 Sonido Schofield [facility] HEMOGLOBIN AND HEMATOCRIT 2020-05-24 20:40:00 Layo Ley [facility] HEPATITIS B SURFACE 2020-05-24 20:40:00 Marlo Hernandez [facility] DRUG TEST, GENERAL 2020-05-24 18:40:00 Layo Ley [facility] - TOXICOLOGY, URINE [facility] TROPONIN I 2020-05-24 17:32:[address] [facility] B-TYPE NATRIURETIC FACTOR 2020-05-24 17:32:[address] [facility] (BNP) [facility] TROPONIN I 2020-05-24 12:30:[address] [facility] HEMOGLOBIN AND HEMATOCRIT 2020-05-24 12:30:00 Layo Ley [facility] BASIC METABOLIC PANEL (7) 2020-05-24 12:30:00 Layo Ley [facility] 2D ECHO W/ DOPPLER 2020-05-24 09:17:[address] [facility] (CW/PW/COLOR) [facility] HEMOGLOBIN AND HEMATOCRIT 2020-05-24 08:02:00 Adela Miguel [facility] TROPONIN I 2020-05-24 08:02:[address] [facility] BASIC METABOLIC PANEL (7) 2020-05-24 08:02:00 Layo Ley [facility] PHOSPHORUS 2020-05-24 08:02:00 [facility] LEUKO-REDUCED 2020-05-24 07:31:48 Sonido Schofield [facility] RED BLOOD CELLS [facility] LACTIC ACID, VENOUS 2020-05-24 03:57:[address] [facility] ABORH, MANUAL 2020-05-24 03:57:00 Lionel, Vidhiruma Diaz [facility] CALCIUM, IONIZED 2020-05-24 03:56:00 Kanwal [facility] BASIC METABOLIC PANEL (7) 2020-05-24 03:48:00 Kanwal [facility] I [facility] MAGNESIUM 2020-05-24 03:48:[address] [facility] PHOSPHORUS 2020-05-24 03:48:[address] [facility] PT/APTT 2020-05-24 03:48:[address] [facility] HEPATIC FUNCTION PANEL 2020-05-24 03:48:[address] [facility] HEMOGLOBIN A1C 2020-05-24 03:48:00 Santy [facility] HIV-1 ANTIGEN WITH 2020-05-24 03:48:00 [facility]2 ANTIBODY [facility] VITAMIN B12 AND FOLATE 2020-05-24 03:48:00 [facility] W/[facility]T COUNT & AUTO 2020-05-24 03:48:00 Kanwal [facility] - DIFFERENTIAL [facility] BLOOD CULTURE 2020-05-24 03:34:[address] [facility] PT/APTT 2020-05-24 02:59:[address] [facility] TYPE AND SCREEN, 2020-05-24 02:59:00 [facility] AUTOMATED [facility] BLOOD CULTURE 2020-05-24 02:58:00 [facility] ([facility] & 2020-05-24 02:33:00 Sergema [facility] - REF LABS) [facility] XR CHEST 1 VIEW 2020-05-24 01:37:00 Kanwal Sonido [facility] - PORTABLE/BEDSIDE [facility] BASIC METABOLIC PANEL (7) 2020-05-24 01:29:00 Sonido Schofield I [facility] MAGNESIUM 2020-05-24 01:29:[address] [facility] PHOSPHORUS 2020-05-24 01:29:[address] [facility] HEPATIC FUNCTION PANEL 2020-05-24 01:29:00 [facility] t [facility] LACTIC ACID, VENOUS 2020-05-24 01:29:00 [facility] L ukes [facility] TROPONIN I 2020-05-24 01:29:[address] [facility] CBC W/PLT COUNT & AUTO 2020-05-24 01:29:00 [facility] DIFFERENTIAL [facility] BLOOD GAS, VENOUS 2020-05-24 01:28:00 [facility] B-TYPE NATRIURETIC FACTOR 2020-05-24 01:27:00 [facility] (BNP) [facility] REPORT OF PROCEDURE - 2020-05-24 00:00:00 Provider, Christopher [facility] - ENDOSCOPY SCAN Scanning [facility] SARS-COV2/RT-PCR ([facility] & 2020-02-22 10:34:00 [facility] - REF LABS) [facility] Plan of Care Planned Activity Planned Date Details Comments Source Future Scheduled 2020-05-[address] [facility] 00:[facility]00 (WELCOME TO [facility] MEDICARE) [code = Medicare IPPE (WELCOME TO MEDICARE)] Future Scheduled [address] [facility] 00:[facility]00 (procedure) [code = [facility] 47734765] Future Scheduled [address] [facility] - Test 00:00:00 malignant neoplasm Medical C enter of colon (procedure) [code = 388328551] Encounters Start End Encounter Admission Attending Care Care Encounter Source Date/Time Date/Time Type Type Clinicians Facility Department ID 2020-05-08 2020-05-08 [id number] 14:38:00 18:28:00 Renata Ramos [id number] Jennifer [id number] [place] [id number] Results Test Description Test Time Test Comments Results Result Sourc e Comments HEMODIALYSIS 2020-06-[address] [facility] INPATIENT 12:01:00 RN 06/03/2020 - Medic al [...] K/CU MM L MPV (test code = 17262-1) 10.8 fL 9.4-12.4 nRBC (test code = 413) 1 0- 0 /100 WBC H Lab Interpretation (test code = 55616-0) Abnormal [facility] [id number] 10:02:00 Test Item Value Reference Range Interpretation [...] = 3438) FANTA (test code = FANTA) Basket Machine Operator ID - Chris Mtz comments: Slide comments: Lab Interpretation (test Abnormal code = 60051-0) [facility] W/PLT COUNT & AUTO [id number] 10:02:00 Test Item Value Reference Range Interpretation [...] CONCENTRATION Decreased (CELLAVISION)(BEAKER) (test code = 3438) Basket Machine Operator ID - Chris Mtz comments: Slide comments:Comprehensive metabolic [id number] 05:15:00 Test Item Value Reference Range Interpretation Comments Protein, Total (test 6.5 6.0- 8.3 gm/dL Speci men slightly code = 2885-2) hemolyzed Albumin (test code = 3.3 g/dL 3.5-5 L Specime n slightly 43450-4) hemolyzed Alkaline Phosphatase 71 U/L 40-150 (test [...] Calcium (test code = 9.2 mg/dL 8.4-10.2 78711-0) AST (test code = 42 U/L 5-34 H Specimen sl ightly 1920-8) hemolyzed ALT (test code = 14 U/L 6-55 Specimen sl ightly 1742-6) hemolyzed EGFR (test code = 6 mL/min/1.73 [place] [address]-3) NOT ACCURATE CREATININE CLEARANCE IN PREDICTING GLOMERULAR FILTRATION RATE . ESTIMATED GFR I S NOT APPLICABLE FOR DIALYSIS PATIENTS. FANTA (test code = FANTA) Basket Machine Operator ID - BONILLA M Lab Interpretation Abnormal (test code = 80027-0) [facility] CenterCOMPREHENSIVE METABOLIC [id number] 05:15:00 Test Item Value Reference Range Interpretation [...] S NOT APPLICABLE FOR DIALYSIS PATIEN TS. Basket Machine Operator [facility] function [id number] 05:03:00 Test Item Value Reference Range Interpretation Comments Protein, Total (test 6.5 6.0- 8.3 gm/dL Speci men code = 2885-2) slightly hemolyzed Albumin (test code = 3.3 g/dL 3.5-5 [place] [address]-9) slightly hemolyzed Total Bilirubin (test 0.3 mg/dL [...] slightly hemolyzed FANTA (test code = FANTA) Basket Machine Operator [facility] Lab Interpretation Abnormal (test code = 20262-0) [facility] CenterMagnesium2020-10-14 05:03:00 Test Item Value Reference Range Interpretation Comments Magnesium (test code = 2.0 mg/dL 1.6-2.6 Speci men 61613-1) slightly hemolyzed FANTA (test code = FANTA) Basket Machine Operator [facility] Lab Interpretation Normal (test code = 87795-8) [facility] CenterPhosphorus2020-10-14 05:03:00 Test Item Value Reference Range Interpretation Comments Phosphorus (test code 4.3 mg/dL 2.3-4.7 Specim en = 2777-1) slightly hemolyzed FANTA (test code = FANTA) Basket Machine Operator [facility] Lab Interpretation Normal (test code = 21413-3) [facility] CenterMAGNESIUM2020-10-14 05:03:00 Test Item Value Reference Range Interpretation Comments MAGNESIUM (BEAKER) 2.0 mg/dL 1.6-2.6 Specimen slightly (test code = 627) hemolyzed Basket Machine Operator ID - BONILLA [id number] 05:03:00 Test Item Value Reference Range Interpretation Comments PHOSPHORUS (BEAKER) 4.3 mg/dL 2.3-4.7 Specimen slightly (test code = 604) hemolyzed Basket Machine Operator ID - BONILLA MHEPATIC FUNCTION [id number] 05:03:00 Test Item Value Reference Range Interpretation [...] Specimen slightly (test code = 347) hemolyzed Basket Machine Operator ID - BONILLA MPT/[id number] 04:44:00 Test Item Value Reference Range Interpretation Comments Protime (test code = 14.1 11.9- 14.2 5902-2) seconds INR (test code = 1.12 <=5.90 6301-6) PTT (test code = 38.0 22.5- 36.0 H 58722-9) seconds FANTA (test code = FANTA) Effective 01/16/2019: PT Reference Range ChangeNew: 11.9-14.2 Previous: 11.7-14.7 RECOMMENDED COUMADIN/WARFARIN INR THERAPY RANGESSTANDARD DOSE: 2.0-3.0 Includes: PROPHYLAXIS for venous thrombosis, systemic embolization; TREATMENT for venous thrombosis and/or pulmonary embolus.HIGH RISK: Target INR is 2.5-3.5 for patients wiht mechanical heart valves. Lab Interpretation Abnormal (test code = 45137-7) [facility] CenterPT/[id number] 04:44:00 Test Item Value Reference Range Interpretation [...] is2.5-3.5 for patients wiht mechanical heart valves.Calcium, [id number] 04:34:00 Test Item Value Reference Range Interpretation Comments Calcium, Ion (test code = 1994-3) 1.17 mmol/L 1.12-1.27 pH, Blood (test code = 91153-3) 7.44 [facility] CenterCALCIUM, [id number] 04:34:00 Test Item Value Reference Range Interpretation Comments CALCIUM IONIZED (BEAKER) (test 1.17 mmol/L 1.12-1.27 code = 698) PH, BLOOD (BEAKER) (test code = 7.44 1810) Prepare Leuko-Red [id number] 23:54:00 Test Item Value Reference Range Interpretation Comments CROSSMATCH (test code = 2264) COMPATIBLE Unit ABO (test code = O Pos 3779094) UNIT NUMBER (test code = [id number] 934-0) Status (test code = 3896183) TX_TIMEINCHART Blood Bank Product (test code RED BLOOD CELLS = 2263) PRODUCT CODE (test code = A8747H49 933-2) [facility] CenterCB W/PLT COUNT & AUTO [id number] 07:51:00 Test Item Value Reference Range Interpretation [...] CONCENTRATION Decreased (CELLAVISION)(BEAKER) (test code = 3438) Basket Machine Operator ID - Abby Higgins comments: Slide comments:Basic Metabolic [id number] 05:22:00 Test Item Value Reference Range Interpretation [...] Calcium (test code = 8.6 mg/dL 8.4-10.2 03728-4) EGFR (test code = 9 mL/min/1.73 [place] [address]-9) NOT ACCURATE CREATININE CLEARANCE IN PREDICTING GLOMERULAR FILTRATION RATE . ESTIMATED GFR I S NOT APPLICABLE FOR DIALYSIS PATIENTS. FANTA (test code = FANTA) Basket Machine Operator ID - MONIQUEASI Lab Interpretation Abnormal (test code = 31034-6) [facility] CenterBASIC METABOLIC [id number] 05:22:00 Test Item Value Reference Range Interpretation [...] S NOT APPLICABLE FOR DIALYSIS PATIEN TS. Basket Machine Operator ID - [id number] 04:52:00 Test Item Value Reference Range Interpretation Comments MAGNESIUM (BEAKER) (test code = 1.9 mg/dL 1.6-2.6 627) Basket Machine Operator ID - EDASIHEPATIC FUNCTION [id number] 04:52:00 Test Item Value Reference Range Interpretation [...] (test code = 15 U/L 6-55 347) Basket Machine Operator ID - EDASIPT/[id number] 04:20:00 Test Item Value Reference Range Interpretation [...] is2.5-3.5 for patients wiht mechanical heart valves.POC-Glucose [id number] 22:24:00 Test Item Value Reference Range Interpretation Comments POC-Glucose Meter (test 99 mg/dL 70-110 : TE STED AT [facility] code = 1538) [address] [facility], 770 30: Basket Machine Operator/Techni connie ID = [id number] for Jerson Morales Lab Interpretation (test Normal code = 87214-5) [facility] CenterPOCT-GLUCOSE [id number] 22:24:00 Test Item Value Reference Range Interpretation Comments POC-GLUCOSE METER 99 mg/dL 70-110 : TESTED A T [facility] ([facility] (test code = BER[facility]EMO R [facility], 1538) [address]: Basket Machine Operator/Techni connie ID = [id number] for Camille bolton Jerson Hepatitis B surface [id number] 20:25:00 Test Item Value Reference Range Interpretation Comments Hep B S Ab (test code = 27.2 <8.0 mIU/mL H 96156-5) FANTA (test code = FANTA) Basket Machine Operator ID - DB Lab Interpretation (test Abnormal code = 23328-9) [facility] [id number] 20:25:00 Test Item Value Reference Range Interpretation Comments HEPATITIS B SURFACE ANTIBODY 27.2 mIU/mL <8.0 H (BEAKER) (test code = 647) Basket Machine Operator ID - DBDrug Test, General Toxicology, [id number] 11:06:00 Test Item Value Reference Interpretation Comments Range Acetone([facility]) None Detected (test code = 3053) Methanol([facility]) None Detected (test code = 3054) Drug Test,Genrl see note The followin g compounds were Tox,U (test detected: Co tinine code = 4745497) (Nicotine Me tabolite) Morphine Osvaldo taminophen Hydromorphone Hydrocodone Benzoylecgoni ne (Cocaine Metabolite) Cyclobenzaprine For a list of compounds an d limits of detection go to:http://educa tion.[employer]/faq /DEF449 ISOPROPANOL None Detected (test code = 4050206) ETHANOL (test None Detected Volatile code = 9017773) Limit of Det ection: 5 mg/dL This test was d eveloped and its analytical performancechar acteristics have been deter mined by [facility] [place], [place]. It hasnot been enoch ared or approved by the U.S. Food and DrugAdministrat ion. This assay has been validated pursuantto the CLIA regulations and is used for clinicalpurpose s. FANTA (test code Performing Lab = FANTA) [facility], [address] [place] [address] [place] [address] Mckenna Lopze MD, PhD [facility]CB W/PLT COUNT & AUTO [id number] 08:11:00 Test Item Value Reference Range Interpretation [...] CONCENTRATION Decreased (CELLAVISION)(BEAKER) (test code = 3438) Basket Machine Operator ID - Jonna Pascual comments: Slide comments:BASIC [...] S NOT APPLICABLE FOR DIALYSIS PATIEN TS. Basket Machine Operator ID - BONILLA [id number] 05:45:00 Test Item Value Reference Range Interpretation Comments MAGNESIUM (BEAKER) (test code = 2.2 mg/dL 1.6-2.6 627) Basket Machine Operator ID - BONILLA MHEPATIC FUNCTION [id number] 05:45:00 Test Item Value Reference Range Interpretation [...] (test code = 11 U/L 6-55 347) Basket Machine Operator ID - BONILLA MPT/[id number] 05:17:00 Test Item Value Reference Range Interpretation [...] patients wiht mechanical heart valves.Type and screen, cpywwmpmo0490-69-41 11:24:00 Test Item Value Reference Range Interpretation Comments ABO/RH AUTOMATED (BEAKER) (test O POSITIVE code = 2260) Ab Scrn (test code = 890-4) NEGATIVE [facility] CenterHemoglobin and ujbycoezto2766-25-65 09:57:00 Test Item Value Reference Range Interpretation Comments Hemoglobin (test code = 7.2 13.7- 17.5 GM/DL L 786-4) Hematocrit (test code = 21.2 % 40.1-51 L 4544-3) FANTA (test code = FANTA) Basket Machine Operator ID - [id number] Lab Interpretation (test Abnormal code = 66646-5) [facility] CenterHEMOGLOBIN AND [id number] 09:57:00 Test Item Value Reference Range Interpretation Comments HEMOGLOBIN (BEAKER) (test code = 7.2 GM/DL 13.7-17.5 L 410) HEMATOCRIT (BEAKER) (test code = 21.2 % 40.1-51.0 L 411) Basket Machine Operator ID - 6000CBC W/PLT COUNT & AUTO [id number] 08:25:00 Test Item Value Reference Range Interpretation [...] CONCENTRATION Decreased (CELLAVISION)(BEAKER) (test code = 3438) Basket Machine Operator EVELYNE Adams comments: Slide comments:BASIC METABOLIC [id number] 06:33:00 Test Item Value Reference Range Interpretation [...] S NOT APPLICABLE FOR DIALYSIS PATIEN TS. Basket Machine Operator ID - BANDAR [id number] 06:22:00 Test Item Value Reference Range Interpretation Comments MAGNESIUM (BEAKER) (test code = 2.1 mg/dL 1.6-2.6 627) Basket Machine Operator ID - BANDAR LHEPATIC FUNCTION [id number] 06:22:00 Test Item Value Reference Range Interpretation [...] (test code = 12 U/L 6-55 347) Basket Machine Operator ID - MAYDAAYA LPT/[id number] 06:13:00 Test Item Value Reference Range Interpretation [...] mechanical heart valves.CBC W/PLT COUNT & AUTO [id number] 07:32:00 Test Item Value Reference Range Interpretation [...] (CELLAVISION)(BEAKER) (test code = 3438) BASIC METABOLIC [id number] 06:02:00 Test Item Value Reference Range Interpretation [...] S NOT APPLICABLE FOR DIALYSIS PATIEN TS. [id number] 06:00:00 Test Item Value Reference Range Interpretation Comments MAGNESIUM (BEAKER) (test code = 2.0 mg/dL 1.6-2.6 627) HEPATIC FUNCTION [id number] 06:00:00 Test Item Value Reference Range Interpretation [...] (test code = 12 U/L 6-55 347) [id number] 05:30:00 Test Item Value Reference Range Interpretation [...] mechanical heart valves.CBC W/PLT COUNT & AUTO [id number] 07:05:00 Test Item Value Reference Range Interpretation [...] CONCENTRATION Adequate (CELLAVISION)(BEAKER) (test code = 3438) Basket Machine Operator ID - Kaylee Martines comments: Slide comments:BASIC [...] S NOT APPLICABLE FOR DIALYSIS PATIEN TS. Basket Machine Operator ID - [id number] 05:42:00 Test Item Value Reference Range Interpretation Comments MAGNESIUM (BEAKER) 1.7 mg/dL 1.6-2.6 Specimen slightly (test code = 627) hemolyzed Basket Machine Operator ID - [id number] 05:42:00 Test Item Value Reference Range Interpretation Comments PHOSPHORUS (BEAKER) 4.8 mg/dL 2.3-4.7 H Specimen slightly (test code = 604) hemolyzed Basket Machine Operator ID - EDASIHEPATIC FUNCTION [id number] 05:42:00 Test Item Value Reference Range Interpretation [...] Specimen slightly (test code = 347) hemolyzed Basket Machine Operator ID - EDASIPT/[id number] 05:19:00 Test Item Value Reference Range Interpretation [...] = No growth in 5 days 6463-4) [facility] CenterBLOOD [id number] 05:01:00 Test Item Value Reference Range Interpretation Comments CULTURE (BEAKER) (test No growth in 5 days code = 1095) BLOOD [id number] 05:01:00 Test Item Value Reference Range Interpretation Comments CULTURE (BEAKER) (test No growth in 5 days code = 1095) Hepatitis panel, [id number] 18:27:00 Test Item Value Reference Range Interpretation Comments Hep A IgM (test code = Nonreactive Nonreactive 51871-4) Hep B C IgM (test code = Nonreactive Nonreactive 77521-9) Hepatitis C Ab (test code = Reactive Nonreactive A 70724-6) HBsAg Screen (test code = Nonreactive Nonreactive 5195-3) FANTA (test code = FANTA) Basket Machine Operator ID - DB Lab Interpretation (test Abnormal code = 04447-4) [facility] PANEL, [id number] 18:27:00 Test Item Value Reference Range Interpretation Comments HEPATITIS A IGM ANTIBODY (BEAKER) Nonreactive Nonreactive (test code = 498) HEPATITIS B CORE IGM ANTIBODY Nonreactive Nonreactive (BEAKER) (test code = 645) HEPATITIS C ANTIBODY (BEAKER) Reactive Nonreactive A (test code = 367) HEPATITIS B SURFACE ANTIGEN (2) Nonreactive Nonreactive (BEAKER) (test code = 2585) Basket Machine Operator ID - DBTissue [id number] 13:01:00 Test Item Value Reference Range Interpretation Comments Case Report (test Surgical Pathology code = 104) Report Case: [id number] Authorizing Provider: Myrna Monsalve MD Collected: 05/27/2020 08:20 AM Ordering Location: [address] Received: 05/27/2020 02:50 PM SERVICE Pathologist: Rosa Cisneros MD Specimens: A) - Biopsy, Gastric, random biopsies R/O H. pylori B) - Biopsy, Gastroesophageal Junction, random biopsies R/O Islas's DIAGNOSIS (test code u7olzNOxVFBjm1liESEteLTc = 3220) ZzEwMzNcZnRuYmpcdWMxIHtc wiEuXYfsl6SbI7DbKsBcAUup bnNpXGRlZmxhbmcxMDMzXGZ0 taHpVUZwXJxyRFWwWNcpFe2i cPEswYzrKsRjRSZpi0tapdSP gzqrlOz0i1rqRSWbKkH9bTLo YWpuD7lcffPhtSGmYWGcLHk6 uG36FIYxaE5xhHXySPtcjgNs RnA3NKbiXQAiRnP3UGJcgYIh QOKeN9xsCGJsCGjtESPtEOgg rDLlUIX5xHuqt0M3oHDijUSi rLufEkCnYgNoIQIAi6QvUKb9 bYywV9WzGUVaKtO4jPQrEVUr VOatHGHhATIgmzT4hB88JSul piE2vSWtr3Orl62ij419tQ7r oVJeSPX0EOBrTNQcfDVwGBHa HRT8UPBroVYhC9s4LnLqlYXy B3Z9LwQppTUjU2M3QsFcuMHh O2I3PcUizXKaSPZeqCDoUd2h mUGguBEnvw4esu18AAJ5p8Lc lXrfBQH2RJR3KnCkBa0vnUAr IQWaUF6nNcRwzZBlPLQjac26 kUiyFTyozbFhxA9yVjIbFHKu zSQyOXHrAE9qpVHdNTWtrR8n cmxjXHBnYnJkcmhlYWRccGdi pkYxAv6hrTwaEYH7XBwoR1ad dG7pTnK2FBhkC1ppoN3cNTe7 ULzbuYZ4AEAhfG9dQR3uwxwv z3guCsXeSE5bgcuie1utJhMd FC0smes9w4grNvUsMG8mqatx c4utRqTfEEvpJGGzpgcnJTSc n7TmsowbZIQsn7RsV4CqgMev A73qjTadZ96cBPGseTttiO1p rIciqL9aUnJxIkEcPYefeBkh bGFpblxmMVxmczIwXGxhbmcx XNUlCBtgV5wiPbUqULRarZvi YPwvk4RfXLTnTJUwQlZnVN8q Y1JSZATMBYriMW2XA2NXH0PP XmWICEYWF1OWCQWPK3HOFLKB IFxwYXIgLSBBTlRSQUwgTVVD P5CPZJyNRNnlH7uOR48LJeVI TkFDVElWRSBHQVNUUklUSVMg DD8ILKVDM0GPIAnYBFKEVTcJ QUwgTUVUQVBMQVNJQSwgXHBh ciAgIENPTVBMRVRFIFRZUEVc cBCqOB8yQ0xJUpWUQaHTTKRD A7ZlS3iKZPMPNcBVOHlYUZTX Y0BGWOTVHIPTE9eCV0bAZNAR RWENIOLTB37FNQMlmlPnTP0I M5OCYHNWAVRBPmGONNrQB86Q BFEVCPTjIFeHU9EZBPTojpWj DB7MS4KXGGZHLXXHLrPCILYJ MEBPWLEpZ8HqB9XMM3dGC37X ZFHjqayvTYGnUt3cI2DIQCAI TOMXBUbBM3FYYPZPHK2CPMzA YdvoDW4LL6BEI3URMcUNWVQW O3QGIRZLF2SITKVAJDSpliBj DAUPLGYRC1AFZEBYXrACNH5J O64GQKRUZDUJNHQYXIlUVAPX CSFRHOMHX7wcOVIwNMIAYWxN BSdLFKKGH3MkI9XRB3eKMNfk RUQgQkFSUkVUVCBNRVRBUExB Q4oMHKKkzwjtSDDedNCvbDzg xtFjSVzlx1OpAAydCDUlLQ6q iGyxLAYkMX0zGGVrT1fgeI6m dog3LtEhKKFcZbF8XCLszpS1 Zqa7BQAgYEjnm8ngp5IwUJAy ATa4fGypUxNpGWDrn8hjmaAw YuDfBAMxESCeZZMasHPfP439 o5emx0srswSliRY4NWJvSDC7 UOwzevUserI1ULzkfEAaBuZ1 IDtccmVkMFxncmVlbjBcYmx1 DPUwN281QUK1iKqpv0dhWTH3 XLXsLIPmMzUvNz4ukDBtQ710 OWEoMBEAOYGsrTn1YLIyxwRm rjZosTRBo107Q934r8inJLLt vqAadVkZliofl0wrO067PXSb cGVydzEyMjQwXHBhcGVyaDE1 CGWtZJ9gptfcYDezSEmeCMMq lmS9JSFofCYiF4GoOQBwUE3e tddrKOU4GFpqJRUmVFF6EgJp YLGdh8Redbh9OgSuoh2zyl60 RVP0e5IznMpcZZP1RDJ1HrLw Us7zwRObNQMhDV2uItZliJKw RTPclh22cYwnVGsxIRF3CICw ubInq5Fih9clRgFmezUaU1qj S7DxHKIrYVFkBHBvUmCdxiEm t8Cdh5DibNSzxIa5v6kwSTWt PGDwzJafy9bxYNE1HKOccBNe N0wsbJ4yLDNuBK0jqiilm9ub BGiuPYsuHPBsnBO6lkG4UKTq tECiN8VofR0jYXBeBRdfGQBg ajq1JcJzXn1tsKBkiVhwCIvt YmtwYWdlXHBnbmNvbnRccGdu ZGVjXHBsYWluXHBsYWluXGYw XGZzMjRccWxcbGFuZzEwMzNc aGljaFxmMVxkYmNoXGYxXGxv I9ktLjFhBcHjByj4HOKoxURu TSNeVnp1ANDyeCHmXYTNeCyw dQ6aNYWptZqdqM1cdPH4ZWAc wxFsoPPRbS8pXCTAyV1fBcY5 OaAoEyL5YDEtJKaikMMgdU0= COMMENT (test code = l0ncvTKmDSLhzEHkTjOtBICw 3359) PLIke0fiDZJnrMUoAcRiNjWh OfGjNsiczMXxBPRkRkYtl7jk c936cVGww1auIGRkBgX1qGSj OGAucZPqU025o0emq3cgvkIf sYY2RCQsMIY1ITmwvvWcrtA4 KYhwpBPkLzR6SYgxvrDeORif rkDwagWtFdk9ZTGtB478QFQ2 xIvqm5oaDTS8GHCcWLBdGiDl Uk5ohULeQ226BCOkPCKHUAXd uKt2YBQgxbErfxBuyETGh225 S427t3jgPUNlxjGbcNuNbuif i9skY832WZVtkQBpioRyTeXm QSHpeGOqnYA6HRZjYI5umpnh MoDeLO8okpimWeGjVL0mxdb2 ZsDkLC8ducxlCsWkFZrgBRGy ppuaDZAng5NpynebUA7dV3Br c3S1zT9ctXRnMQBmxFMkBqKo UNTvxc7ctRPfAUwvu3EqQGR8 gjX8oFFknCLoQEKgRW88Ueze l5CdTbkgJOM6NZMdiyWmm7Jy u4ksAfNqhkPjJ7ygH8PhRDPv CBWkYCPaJoTvmkCaj8Wqb1Zn hSBlbCv4o0gpHUYlYTTheVrc g5tlYOF8DTKkN1O5mDTsd7mt RPzeKYUstHZ9ipwlXAhcNTBu nmH0fboyFHggORUgpZR6rits NLstSXAeQxI5jdytNFolSFSt YST0VUene085LMJ3GRzuWwwu YWdlXHBnbmNvbnRccGduZGVj XHBsYWluXHBsYWluXGYwXGZz PbPsgVngyVdskH8hTmNfSlXg HHspEJ8uNDVmP7yplYFpTOTp DNMtC1bvYtUqbZ9yyJjoFXqf iiGnLX2srXKsbY== CPT Code(s) (test d8epjFXpSNYdkYHwMmRpCRZc code = 3357) IWBbn0ysEGImrTSrJzNsJzRn MhUvFbubnADlKFLqAhWxw3mp m936eRYkx3qsEDVbEmE7nAFn STUehVRtE486x6grw7qbkzEe uET8PMVfYJG7DRiwlyZnkqX4 JLkwcWVaOyB4GNozrsIdTIhi afMvusWaEnr4AGRfO335VVS1 aSaub0gvPGF4IIZmXHHbAlEb Ht5wrSIcC030AKLjFHCHGXFj zFy2WCPxhjKeupBrtSRTf707 G596k9ngPBXbseTsjLkIzvkq l1jnT194FUSyrQCrlzKiPnGz ILVfcTBbgSY4RPBqOL4kxlxz LfDzNU7seprgRxMpFQ0bmjo9 XgVbSZ0npinnYuNbWKofRSHn sxvgXNZvw7BjrihnGL5uD7Hi t7E7rX4hzCMqKIMbySIbTmMp AALvop4agOInQOtyj9WmSNT2 htO4yXFgaLUkOHAyDL97Xjwe x0ClCyilWZY9OUGsyvJkv8Vu m8ymQhCmazOqX5cvU8GcUDHx BINbJYUvCfTibjCgh2Rap0Uw uSGgnKk3i2vyVGAqNXGnqTmi r9xrYUN6AGIiQ0A2yTRox8uw XNepVYJuuCU7qlorTLonTUSa kjK6hjpkAQirCFNpmHG9tdty YKsxEDZxPuQ7gdvsPChzPNRh XIC1CZbay533HNL1AUkdSdzv YWdlXHBnbmNvbnRccGduZGVj XHBsYWluXHBsYWluXGYwXGZz SfHllWoowCldwM2qVjFdVrZa QJdsYG9vGWYfL9souKCoLCFz EAVvG8fzRmYmgQ5hzDokWFlg faKkOHv4UfU2REdcAIX3QUYm MlxwYXJ9 CLINICAL HISTORY j0pxtLDmCNKzaUXrBoXyFHLu (test code = 3356) BRMhw1gtZARghLNcSiQnWcCm PaZiFpwwgPYaRRGcThSlu0ni k324rZYkd9imBKZjScC0kZYe QPWfiKYiY014q3hfg3twjsPd cKG0GESwYRX5WLghafSbecM4 EVolpUFhBzQ2BFkociEtLHix pmGehiZuLyi1RTEzE590VSY8 aOgnt1ctOOB8GHFlPDHeJzHd Ch3xcMOjK492TFJwGULWCJMa qUz5YSMxxsIljiXgoBMJa303 P539k5zfOLVdnxRbpRlXtarc a8vuT105UYEkbBPtceTpWiRr BRWndEUytNO2BJQcBB7ygipg JjZcHA6glgvjUkOhZM3qpqt0 KdZkLH4qrnsgUoWsQEosSXNz aeeyMTCif5FntmjxXW0yB2Ip d2T4rM0qwAHsMTEoiSKnPaKo QCFgbh4yuYMqMSwdu8LjLWI4 hmA3eXKbpSBwNSRlLW51Knrs x7KxCdpvHHJ7XTSmdyKcg1Wr m5sjUkWuaoBjB1ciV3EmYYLv YIPdQGZzYaYgvmZpy6Zxc6Vj eHNwnOy1b7eaETUtVKLgrVcx c1htOYH0BRXtM1X1gRXxv0td XGmeMUKoaTC4ubseFZidCZGw vqM6wznhZIlwRMQfbKY1ewaj RVhlCQFlUpB4ghhaHRmgAEWs FPB8ETdkn360ZKG6KGjhOkoj YWdlXHBnbmNvbnRccGduZGVj XHBsYWluXHBsYWluXGYwXGZz VbJziEeyqLfjiG5sIuEeUxTn TQttKS0kZXFwI0tmcFMbSRYy LNIlA4uuHkSigS2syTkfRMsq vlSsBMHjPS7kKRHxnHDosQ== SPECIMEN SOURCE (test u7gunAJyPOPufJUaEeHmAJKo code = 3377) JWMkd0jrTRUjwOTfYpPkYsQy ZlQvWryfkINuURYaSsOkz2sm d574wKIuo6ieGIGaItX8pNYj IVVlsEFuW064o1eoi6gaopGt cTL4YCAnGXT0DFsqzwCmtpD3 XGzmxQUaRzS8KXgrsrOwQWit ysVxtzAcBoj5FZLhX757PFB1 wCmoh1rzNKN2RMNkTKOqQuJh Zi6zmXTtV204PVWmCKOZFXLb iPf2RLOlziCdluNpgKHDj355 F652i3daGDQomxWvaEqAlfum q9fjG721VAMncBGjlvZfFxJf VHTdlZJhcIF6OUDeXH7tdwbz HdHuHM3anqosPlAyKK8olyu8 YlIyYN8jkfkdMqAqOBlfJIZq qwqbDOLci1YivsnxBR5vF3Wv x0L1oI2wmRExURZwmUZlSySa CSRcxf0luYBwGUagg5IfUBT4 fjP1hRBzjINnCGWhOA32Qvro k4BlOimsLFJ1FZAuolBdi4Di p4bqNrSrreXeC3jmL8HdFNCa NDZzQABtAePuhyYjl1Khw9Ul hRBnpFq6n6pxMBYwNRPofPti k9eqKDU8SUHbW9H7bQRvl5tt KCmyHOUwaJP6woseARokOTZd dmO5odgzVHdrFEAciNP4wnde MXhoOYSbRaF2kyqsEPsjJPYu GZC2BOogc024JJI6BMkrAzaz YWdlXHBnbmNvbnRccGduZGVj XHBsYWluXHBsYWluXGYwXGZz HfLwfZgfcWkzsO6mTnKeUkDz NIsoMW9qQQYyY8fmfGJfZKHu CAFgL5fbBaHamM8twUolXCpb czIwIEEuIFJhbmRvbSBnYXN0 ppjzMHVpr2JllJalwxQdBFKe jRLnRQ5xAEfac2CuIDUbosYK XzNWES8sr56gL5YiwhThR9Ix i08sXgnbnEG3PQPusGdbGS91 gTRBSWHgXIL2E3FwVWHlps3= GROSS DESCRIPTION w8jtjBIiANVwtNIoEzXlLDZv (test code = 3366) QZEdn2fdDOYqsNPfUsIjPmWw ZtHiOphhjFQbVRHgEtAcw3zv q509hWQlh6ocEWStJyQ5aRKd ZQAjaBQtK152SDBgHGwuc2wk c2CtDOHfnWTct9Z0WZEEmniy vMl8hFieP22ty3X0YmszN0pz QTGmWMDjG8UaDU9tTUHkCen7 IWS5OBD6GRFtSFYqS3MtOP7o FWTkkGXcXZf8k8xssJxhUQGf VIW0k0zsJYkkgzAbMY4ite7n kRj4v3qihrIyXAFfSWDgvMFH LIMrK9CpuCvqNh7mkPk5qIii RsdhAII6Aer3ME2xsh76djg5 qNgkGVKtjigvCjX0ZFynLQTh wyzyPQk0FGnwJDDmrJaoLHsp YXJncjcyMFxtYXJndDcyMFxt ASBzQmnpHJthMLUlAKA1UNbb b304YIY7ABsrb3eib6loiMDa Ntv9KISzHaQsLxiqYRzca8Su f7icZBVqba2mKRV7fHKszUgt s0M0cITrSKTuiHDwtbBkBWPq AaU9ULikKL0oyf95GNCqBKW3 fl2naHBxiXpvpmRstRTwPHek H4CoJCOcn321EELbO4AsRZYw x2U6ezReIbCsKTRqvMF1maE0 BDDuHGf4pVZoooX6boDxaYYv T6untX39LmRxoQUcI6MsjF90 CgMulEZwT3OjsD36AqFhrWBv U4PdeW51OnJuaXXtYGDpbURk Eg5faIVapVTyj5LthXNxHQit T49sd838GEJpwyKcQ9minSDe ksxuvDTxeymhHLggxhH0TLMx XHBsYWluXGYwXGZzMjBcbGFu ZzEwMzNcaGljaFxmMFxkYmNo XNHlRHneZ9fzChSwSpXiEDTB YgLGCGCvcUHmQPYpsxEtb4Wt YWxpbiBsYWJlbGVkIHdpdGgg mHuyHAMynNldunYifcLaKX2k ZRKqNLFsD5BdLFGnW07bBPOy iK4hYGFrHS7oNXFzTPX1hyht VPPlw8JukFKlBYSoJWC5wnRh zOZdKHQfo1XdoNBcEYgarOCt HJ82E88ePS9kr0VcgmMrBFDb e1R1DJM5rML6CQ2bFJQ3zfVm NC21BRqrNY6uOEftIV3oBMIs OBveBNUgU6MsC8H8GR4iOYuu JUVtRWYfoORtJMatFTG3Ve3u bYNeFDTmmkP8c0YpRZQkiUvp i8hfXfZjqWx9keQ5dJ0hVMec KQRjr0ZnfQRvHTDiSvnoIPFh cGFyXHBsYWluXGYxXGZzMjBc bGFuZzEwMzNcaGljaFxmMVxk XlNfFIQfGVxoB0msKwBoJzAp MCBCLiBSZWNlaXZlZCBpbiBm s8QeDHebsiFyAAHxnXOwXIws dGggdGhlIHBhdGllbnQncyBu SS2gVCIcGHQhW6HnCCHeI99q FFPblE9dEJTkKQ1qEBWZQHNi lU4gaJkgmpWypT7ot9fiFKFj OVY4z95frReeA6AoNZ5iWBDj mh31cDr6YRHbhCBru8CpR290 RUXwDWH9qCUiyZXnfRfdvQLy EFJdwRMnNUZvLDU1RBKcLfI8 LICgDsUvmWVkftKwC4qgQVjg zLNjMZJaILPqpAItaW5ropCv qwIqvPGogZZ2UCLygE6gaI48 wnTmc9fsh0lxmorgUjeepHDc cOjiecBmsjDiPRUrRLR8HXJC GR6vjMvjwS8lUyPzWbSzGJkg GK8tIUVuP4jjeLGwKVUgZTKd W4veUxAfkB4xsRvgWDgxraNx EDCPGIUuBQvlpIeqqT7kCoSg XmHgCWmwSA9pYTDnF9aqdLHr IGMcXOKqL9baMeJjyO7mbJsu MVxmczIwXHBhcn0= MICROSCOPIC r0mlpKYyNUFoyUFtSpEjEZPb DESCRIPTION (test QNXmm4jiTUUrxCMyJtChLoKh code = 3371) LiHnBbgnwJYsHANmYiJbt8pd h865lMZlh7iaABOeEcY4cQMr AMJbbIDnS688JPEfESmnw1nv c5GnMCMaiATap0A2WDYDgqpy kOd0lTchZ98bi1Z0FciaU8yh QWEwBCCqI2FwAC5cWQSxWym7 XCZ0AVP6VSZvZMSxQ0ZmHU4t JKEqkFJyENc4p3hqnEfyQRTr ARD7n6ksLCqbsdOzWD0nab7h uHt7t9tpvqMxNXReXVOrdAKU RZKsH6UxmFvxLg1ufVw3lNee QbubWXW3Jik4JJ3jpg20txh5 dQydSZQewzmbToD7YFzsZRFp brsaHXr4RVewQWFexAdzRWot YXJncjcyMFxtYXJndDcyMFxt OYOdKgxdMTmeBKDfKBN8ZLeb b975IMY9GVvmk6goc4qtrUIg Qgt5DXZcHyOqFwieZHwug3Vf c3qmANBtsx1xIBU1gSRkfLzc i7R1vLPnLPTiqXDkqdRmCFIn DfO7NXekLV5kxd66IBPrCCL8 oc9axLNrnWxmalCjwBHjATps S5ZgKRGah972UEZuV1CjXVBw i0P4esUlDjVmQIGrjDM3mtI0 TPZoHCm3lMThkvM0mrIbwQXs B0phzQ01VaRsrOSlL0QyoG98 WnIvfRLaM5VtpU19HiVdvSSg K2DwwE38AbHreDOqKCDgvTKl Yi7xyFMqtPJiy0JtmXLxRRdl C82xt792LZXdonThQ3buiULu wvobqQErohztIFjgueO1PUNc XHBsYWluXGYxXGZzMjBcbGFu ZzEwMzNcaGljaFxmMVxkYmNo SDUuJZhkM1ezHbAbXqKtFYZH RvOGAPH1wB3jYVYws5zzKAxe c2BoaGKzTM12ieGsOUWlFNSh gGmsyYdxAU98X97pYI9pAQad EILibKTumQKkaMAxm8Wbi2sy q3EprSffJYJdcMQkfecpOUvy GCD3pHSsVJyaa4BpyMCjixH8 bAQsHYzbB20qrSrvyWDouY02 JVS0nE0kaRUqPSMtuGfps7ut FgPFkpYbS9LmobIydK2alFWr wJG7pD8pDSxjDSHxWNGknfKn LWNnNPCtrDcsaPxqFK19U35o KHSziS05ncAevlUbdBcvlSAp C9ZvxQXylmXnFO9oFATjh44o CAooobPlfT9kf4FtmY9uXn3j EBpdsRxup8ImL8NjbcOflDjg cmkgaXMgbmVnYXRpdmUuIFRo DUBlDXshKQ0qIOY0i6YxRESh OGYuuzNiFOKnqX0kjUNdNQLa swgwGVMvNl4lY1GljJkvdwAm kJ89rtKhUNK2ha3nm26fcZQp YDCgACu8zxM2oN5kURtvaJDe v0TuMBTcAXFsvRRovO49orDz OK2apBpmP1LxmNvygNLcj4Qx XxPQhJQmk6C9MQ9rwXJlHEVv i0FuRMnsWNcuKZWzyVLersDl yARfRdHEXSXxnD3mvFgedxNb IO28C90rYYPfpH65deSnkgGa bwOzvKl8mXPmXQPpDN2gESWk XFNifU1wQ6L2IRVaqcEqE5Vb AXJjvNGuzGxrIKPjWD3xIRBo BQPzp2h7wA7tclLexNDud3Jw u2lia9PyO8bbg35uHsFkyhQc EB2jJCTzb57mv9n2jNUeAXGi KJ2kbGDyo7GrhDzyHpTWswZp y2OdVVJkW5DinJJbZEIalBhv f0avWCseXDWnZR9zKRQgyv8= SPECIAL STUDIES (test s6vjfUBpPGXjf8vvNZIpeHQf code = 3376) ZzEwMzNcZnRuYmpcdWMxIHtc tlYoKZhum4BlQ2GsLaYgZCgo bnNpXGRlZmxhbmcxMDMzXGZ0 hpInYBKdPLjzDXXkEIriBf7u oAGfsOmuAuHgBNXpk3kkbmNU umruxQa1o1wgBUOmNlL7rAZr JQakB2wnpfLlxPTeK1FdcHTb vOi4d2haBsUxCqC3oMCoHMlh V3kbbmEaqABkQLGcNJn9gB80 NSLyiU7zwZGsNMfexpVnGbO9 CImiYBInNxO0VNQbsHEfOHFa Z6uySVIsSQjiCTOtGWoruKMj DKA9jJljd1F3pHCwqSSouMdn NzToTaQkTmVXa9BmGYo4tZlm H9XdJHLkUpY0dYAiSKBwOAus APWsLRHescN4sAcnnqVkb94j eHQyXGYwXGZzMjBcbGkwXHJp JJCWf2BoaGymZQU8rTi2sYsh RftbMKJ9Cqh2SU0qiv51ekx0 iFznNDEquaqpJeN0UUyxUJNg ovdiCEc7ERvgNDZwjRM5TKHi tMRhZ6KqYXRxYG5laua2FAJ7 VHzvCGVoYlJ5CZZolNFzDVLt qZwdSGzfz839RUX5WdGmOJ9x P3Isw4O4vZ1lkZYaIEThpKDj DtStYNDfib6usWCyJCzua1Tq TWT4chM0mHAaxLWyOERzBM97 Pjxda6MgHasgm4DsL14kaBX0 RVzef9ntPO1zRuZ7zgGeARte b4jymM8oLoL2FJwuPG6wMQ4z PAJvjT2wszilBTGiHdQacarb KYFnyPzlfzTyVi4lsGykYTN3 UEknF9lkfH2wZhK9CTrvC6sk cA6wKHg8GVrjuAF9YWRnpC3u WC6prmxtw1gpTAnmFDtlVYRq kuE1zoO2QYMlpNZiW1NzsZ8d LTWlLX6mnnocl5zgYCA3XVgz WUVfLXV1JhUaRLCph9Gwmfa0 KiZil7MujJOmDMyxZ49pu900 FWDonbJlC0ctiBOpdjisaXXw icklTBbidqD3VWLfQOPcPOfq XGYxXGZzMjJcbGFuZzEwMzNc aGljaFxmMVxkYmNoXGYxXGxv Y8ixIsJmF9IjQQHzRbGuBRpn LCulxSMyxHLsdUD4kR2nKD5q YAVehHBhS7FiFGHeoyIfbCZj JGB6gETpyFHcOE8dADzgaJBr x7fji3LjZ2xseHtxsWJ8VB0c UJNeBUShFBfgn5GctN7jHume bGFpblxmMVxmczIyXGxhbmcx MGMkCFucC1msFgPvHYAhrEec URpdr2LiOEBxWCFnZdhglxLr BMc7urVzSKKswixfSTVydAzu gG1aDmBtRmVdRzylMI9lJWXt H1oroOLhJHDhYDDxB4fcYgDi nP9inVcpENnnXfEuYwDjRbGI q184tw9oPHSitSAjlgTPoLQa iB9oTAdbEFvjKYaebHBtKVcg t8crZWFkh9p2hIZkTQIjblOu o8ciTBhqswWwKZCjuISvuJGm EMNbm68tVAfjtOwwzClvNXLj k1VzzSsrh0GqEpHxIZnjb9Sz N77yaEHoyDHikGtvUAHdejTx ZHZvq82vg5gsSRBdJgY6iLKj vFI7vGWfrQYrm2KibTstBUGs m0mkWHFzzk5ibuljpNXnb8Is jR4vpokwWLfuzCYkzrKpULBm b0g0lBGkXXIoLBUlVEzieYz8 DLWoy035qp5gydR1yVPbPPV1 YWlsYWJsZSBhcmUgZXZhbHVh dGVkXHBsYWluXGYxXGZzMjJc bGFuZzEwMzNcaGljaFxmMVxk MkHdZFOvOErwP8reBqNxY7Bj SXNsGkLuhTEgJ6jdtPVbTNLd YWluXGYxXGZzMjJcbGFuZzEw MzNcaGljaFxmMVxkYmNoXGYx GCwmS8ksEqXaK3XfSODgBrZl IFxwbGFpblxmMVxmczIyXGxh abzqUYCsYGefG7vyQkExMKNr kCvpRYxph9IrPDXwJZYeYwjv etHxVDr5ktOjWPKfkcrkhXMf blxmMVxmczIyXGxhbmcxMDMz TAuaZ0ekCpFfHUXhwMosPSnj h2VxUCRkIHXkRlfejeZyQQhi jDPbi3hnt9ZaR9xuiJdiiYN7 JSRcH5utbVFzxGP8AQM3dX1p WMlsmqRiDOYcj4RyCSTdPBXu ObY7tU3cWNO0FhSBbIsuHQZo YWluXGYxXGZzMjJcbGFuZzEw MzNcaGljaFxmMVxkYmNoXGYx QEvaY6sfBhUwE6KyUMMyIzCe mSahKThfBRg0QhjgaMLmhuxd MVxmczIyXGxhbmcxMDMzXGhp W5xgOdXtALGckJeeRStoe1Xg XGYxXGNmMlxmczIyIHMgTWVk uBRplZJVOC86MDJdVCOvbWsq rT3slXKHQEPcaeX1r9K6TXit FFOkEIk2FZquohPeIGKlkI2g RKDtXB9zZWz7wcZiMNVsj3Ky MV7sNJQjsTRxDYQ9REIqo5Ek K7Egw0RtPRIwYCKshj2lajUk ArXIkQNoJEBlxe94YDOzKA8m T9bbQGMxRFAzygSlmKQgu6Hr NYQlbUU4oSRiBX9CTuKTh94g IGFuZCBEcnVnIEFkbWluaXN0 uwU9uJ3jHeSOtVTdSvEXTPwf woTcAPJtqt5ywcAjDBZhPYVs n5VbzWRzeWTvfrWnH1Shy5Cv ZZZmjx93CSegvKCqsn06ED3k G8Jul0QyzJ4xVMcpJEBre0Qa hQZddNCwIGBtp1ZdS6epzblm PSgruDRofR3nXFUaFJm8LNSr g8KzOAIvg9DeDgTjypRgEBCo YUAjPNLexI99TTJ3aAlfqGys naPrOC5fPMKtqqQrDEOtGPYy bX5xWOnsarRuHKUvadT6g2D6 FMyaENElruEjYksxIJU5ozXe qaY7rTLoN5ktueqtNXmnMKIy x2HqhS0liKFBhCDkc1DuwOOa kKKJcIJnPD8wruLgKY1tZQM8 ODggKENMSUEtODgpIGFzIHF1 EJwpLvjfVSK0xzZwHSJuo9Lt RHraB3feR34ucPpxrKd4uJTq jVhfoYTeoZTpVMAeutY7c4V4 IXOtg8KpptadACKaJVzvIFAq XGZzMjJcbGFuZzEwMzNcaGlj eDvnJeriVrQcCSJeRKicJ3jn RoNwNnUqSvzoGXX2cQ== Gross assessment was [facility] performed at (test [facility], code = 2777) Department of Pathology, [address] [place] [address], Technical component [facility] was performed at [facility], (test code = 2778) Department of Pathology, [address] [place] [address], Professional [facility] component was [facility] Center, performed at ([facility] Department of Pathology, code = 2779) [address] [facility], [place] [address], [facility] CenterTISS[facility] [id number] 13:01:00Surgical Pathology Report Case: [id number] Authorizing Provider: Myrna Monsalve MD Collected: 05/27/2020 08:20 AM Ordering Location: [address] Received: 05/27/2020 02:50 PM SERVICE Pathologist: [...] ISLAS METAPLASIA Signing Pathologist Direct Phone Line: [phone] signed by Rosa Cisenros MD on 05/28/2020 at 1:01 PM.[id number] x2, [id number] A. Random gastric biopsy, rule out H. [...] evaluated Immunohistochemistry technical testing was performed at [facility], Pathology Laboratory where it was developed and [...] as qualified to perform highcomplexity clinical laboratory testing.[facility], Department of Pathology, [address] [place], [place] [id number], [facility], [address] [place] [address], [facility]wpSan [facility] of [facility], [address] [place] [address], YDA W/PLT COUNT & AUTO [id number] 06:41:00 Test Item Value Reference Range Interpretation [...] CONCENTRATION Decreased (CELLAVISION)(BEAKER) (test code = 3438) Basket Machine Operator ID - Kaylee Martines comments: Slide comments:COMPREHENSIVE METABOLIC [id number] 05:00:00 Test Item Value Reference Range Interpretation [...] S NOT APPLICABLE FOR DIALYSIS PATIEN TS. Basket Machine Operator ID - BONILLA MBASIC METABOLIC [id number] 05:00:00 Test Item Value Reference Range Interpretation [...] S NOT APPLICABLE FOR DIALYSIS PATIEN TS. [id number] 04:45:00 Test Item Value Reference Range Interpretation Comments MAGNESIUM (BEAKER) (test code = 1.9 mg/dL 1.6-2.6 627) Basket Machine Operator ID - BONILLA EPATIC FUNCTION [id number] 04:45:00 Test Item Value Reference Range Interpretation [...] (test code = 9 U/L 6-55 347) Basket Machine Operator EVELYNE - BONILLA [id number] 04:33:00 Test Item Value Reference Range Interpretation Comments D-Dimer, Quant (test code 3.35 <0.50 MG/L FEU H = 94621-2) FANTA (test code = FANTA) Intended Use: [...] range. Lab Interpretation (test Abnormal code = 90706-9) [facility]-[id number] 04:33:00 Test Item Value Reference Range Interpretation [...] exclusion of thrombosis is within 95-100% range. [id number] 04:31:00 Test Item Value Reference Range Interpretation [...] detected HCV RNA not (test code = 53674-8) detected FANTA (test code = FANTA) This test uses a Real-Time Polymerase Chain Reaction (RT-PCR) methodology and was performed using BAIRON Ampliprep/BAIRON TaqMan HCV test kit version 2.0 ([employer]). Reportable range for this assay is 15 - 100,000,000 IU per mL (1.18 - 8.00 Log IU/mL). Lab Interpretation Normal (test code = 96316-6) [facility] CenterHEPAT[facility]IS C PCR, [id number] 22:57:00 Test Item Value Reference Range Interpretation Comments HCV RESULT COMPONENT HCV RNA not detected HCV RNA not detected (BEAKER) (test code = 2699) This test uses a Real-Time Polymerase Chain Reaction (RT-PCR) methodology and was performed using BAIRON Ampliprep/BAIRON TaqMan HCV test kit version 2.0 ([employer]).Reportable range for this assay is 15 - 100,000,000 IU per mL (1.18 - 8.00 Log IU/mL).Manual [id number] 12:07:00 Test Item Value Reference Range Interpretation [...] few Lab Interpretation (test code = Abnormal 84315-7) [facility] W/PLT COUNT & AUTO [id number] 12:07:00 Test Item Value Reference Range Interpretation [...] code = 1+ few 477) BASIC METABOLIC [id number] 04:27:00 Test Item Value Reference Range Interpretation [...] S NOT APPLICABLE FOR DIALYSIS PATIEN TS. 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 WBCs with mild left shift, including occasional myeloid precursors, no blasts seen. Few hypersegmented neutrophils. Thrombocytopenia with unremarkable morphology. Pathologist: (test Maddie Carolyn code = 2849) Bebeto Dsouza [facility] CenterPERIPHER[facility] - PATHOLOGIST REVIEW 2020-05-26 14:31:00 Test Item Value Reference Range Interpretation Comments PERIPHERAL SMR Macrocytic anemia, REVIEW (BEAKER) 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 WBCs with mild left shift, including occasional myeloid precursors, no blasts seen. Few hypersegmented neutrophils. Thrombocytopenia with unremarkable morphology. [id number] Maddie Carolyn 2 (BEAKER) (test Bebeto Dsouza code = 2849) [id number] 13:50:00 Test Item Value Reference Range Interpretation [...] within 95-100% range.CBC W/PLT COUNT & AUTO [id number] 07:48:00 Test Item Value Reference Range Interpretation [...] CONCENTRATION Decreased (CELLAVISION)(BEAKER) (test code = 3438) Basket Machine Operator ID - Chris Mtz comments: Slide comments:COMPREHENSIVE METABOLIC [id number] 05:43:00 Test Item Value Reference Range Interpretation [...] S NOT APPLICABLE FOR DIALYSIS PATIEN TS. Basket Machine Operator ID - EDASIBASIC METABOLIC [id number] 05:38:00 Test Item Value Reference Range Interpretation [...] S NOT APPLICABLE FOR DIALYSIS PATIEN TS. [id number] 05:34:00 Test Item Value Reference Range Interpretation Comments PHOSPHORUS (BEAKER) (test code = 7.6 mg/dL 2.3-4.7 H 604) Basket Machine Operator ID - [id number] 05:34:00 Test Item Value Reference Range Interpretation Comments MAGNESIUM (BEAKER) (test code = 2.0 mg/dL 1.6-2.6 627) Basket Machine Operator ID - EDASIHEPATIC FUNCTION [id number] 05:34:00 Test Item Value Reference Range Interpretation [...] (test code = 6 U/L 6-55 347) Basket Machine Operator ID - EDASIPT/[id number] 04:50:00 Test Item Value Reference Range Interpretation [...] is2.5-3.5 for patients wiht mechanical heart valves.CALCIUM, [id number] 03:59:00 Test Item Value Reference Range Interpretation Comments CALCIUM IONIZED (BEAKER) (test 1.08 mmol/L 1.12-1.27 L code = 698) PH, BLOOD (BEAKER) (test code = 7.49 1810) TSH/Free T4 If [id number] 20:19:00 Test Item Value Reference Range Interpretation Comments TSH (test code = 3.581 0.350- 4.940 uIU/mL 36307-0) FANTA (test code = FANTA) Basket Machine Operator ID - ABBY F Lab Interpretation (test Normal code = 73388-6) [facility] CenterTSH/FREE T4 IF [id number] 20:19:00 Test Item Value Reference Range Interpretation Comments THYROID STIMULATING HORMONE 3.581 uIU/mL 0.350-4.940 (BEAKER) (test code = 772) Basket Machine Operator ID - ABBY FHEMOGLOBIN AND [id number] 19:42:00 Test Item Value Reference Range Interpretation Comments HEMOGLOBIN (BEAKER) (test code = 9.0 GM/DL 13.7-17.5 L 410) HEMATOCRIT (BEAKER) (test code = 26.7 % 40.1-51.0 L 411) Basket Machine Operator ID - 6000CBC W/PLT COUNT & AUTO [id number] 14:10:00 Test Item Value Reference Range Interpretation [...] H PERCENT (BEAKER) (test code = 2801) [id number] 12:23:00 Test Item Value Reference Range Interpretation [...] 125-220 H FANTA (test code = FANTA) Basket Machine Operator EVELYNE Ruiz ABBY F Lab Interpretation (test Abnormal code = 19771-0) [facility] CenterLACTATE DEHYDROGENASE (LDH)2020-05-25 12:15:00 Test Item Value Reference Range Interpretation Comments LACTATE DEHYDROGENASE (BEAKER) (test 341 U/L 125-220 H code = 635) Basket Machine Operator EVELYNE NORRIS FProthrombin time/[id number] 12:13:00 Test Item Value Reference Range Interpretation [...] valves. Lab Interpretation Abnormal (test code = 89744-0) [facility] CenterPROTHROMBIN TIME/[id number] 12:13:00 Test Item Value Reference Range Interpretation [...] for patients wiht mechanical heart valves.HEMOGLOBIN AND [id number] 12:01:00 Test Item Value Reference Range Interpretation Comments HEMOGLOBIN (BEAKER) (test code = 9.0 GM/DL 13.7-17.5 L 410) HEMATOCRIT (BEAKER) (test code = 27.0 % 40.1-51.0 L 411) Basket Machine Operator ID - [id number] 11:50:00 Test Item Value Reference Range Interpretation Comments Haptoglobin (test code = 172 mg/dL 14-258 4542-7) FANTA (test code = FANTA) Basket Machine Operator ID - ABBY Crump Lab Interpretation (test Normal code = 63575-9) [facility] CenterHAPTOGLOBIN2020-10-05 11:50:00 Test Item Value Reference Range Interpretation Comments HAPTOGLOBIN (BEAKER) (test code = 172 mg/dL 55-239 079) Basket Machine Operator ID - ABBY Bragg Echo W/Doppler(CW/PW/Color)2020-05-25 10:53:54 Ejection FractionSLEH ECHO HEARTLAB MKJAN CPACSInterface, External Ris In - 05/25/2020 10:54 AM CDTTransthoracic Echocardiography Report (TTE) Demographics Patient Name THIERRY PADILLA Date ofStudy 05/24/2020 KYLIE Gender Male Visit Number [id number] Race Unknown Room Number 7217 Number Date of 1965 Referring Physician Age55 year(s) 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 Owen Valdivia Interpreting Physician BEVERLEY Roche Procedure [...] 5.41 l/min LVOT CI: 3.06 l/min/m^2[facility] CenterU[facility], TESTICULAR (SCROTUM)2020-05-25 08:58:00Reason for exam:->rule out torsionFINAL [...] Signed: Roya Verde Verified Date/Time: 05/25/2020 08:58:57 [facility] 08:16:00 Test Item Value Reference Range Interpretation Comments Ferritin (test code = 90300.32 ng/mL 5-275 H 2276-4) FANTA (test code = FANTA) Basket Machine Operator ID - EDASI Lab Interpretation (test Abnormal code = 38359-7) [facility]2020-10-05 08:16:00 Test Item Value Reference Range Interpretation Comments FERRITIN (BEAKER) (test code = 20972.32 ng/mL 5.00-275.00 H 361) Basket Machine Operator ID - EDASICBC W/PLT COUNT & AUTO [id number] 08:02:00 Test Item Value Reference Range Interpretation [...] CONCENTRATION Decreased (CELLAVISION)(BEAKER) (test code = 3438) Basket Machine Operator ID - Jonna Pascual comments: Slide comments:RAD, CHEST, 1 VIEW, NON [id number] 04:42:00Reason for exam:->pulmonary edemaShould this be performed [...] 04:42:11 XR chest 1 view portable / [id number] 04:42:00 Interface, External Ris In - 05/25/2020 4:44 AM CDTFINAL REPORT RAD, CHEST, 1 VIEW, NON DEPT INDICATION: pulmonary edema COMPARISON: Prior day's exam FINDINGS: Portable frontal view of the chest. IMPRESSION: Support Lines: Stable. Lungs and pleura: Unchanged venous congestion and interstitial opacities. No consolidation or effusion. No pneumothorax.Heart and mediastinum: Stable contours.Additional findings: None. Signed: Sally Renae Verified Date/Time: 05/25/2020 04:42:11 [facility], TIBC, % sat. (without ferritin)2020-05-25 04:31:00 Test Item Value Reference Range Interpretation Comments Iron (test code = 2498-4) 118.0 ug/dL 40-160 TIBC (test code = 2500-7) 170 ug/dL 250-450 L Iron % Saturation (test 69 % 20-55 H code = 2502-3) FANTA (test code = FANTA) Basket Machine Operator ID - EDASI Lab Interpretation (test Abnormal code = 78427-2) [facility], TIBC, % SAT. (WITHOUT FERRITIN)2020-05-25 04:31:00 Test Item Value Reference Range Interpretation Comments IRON (BEAKER) (test code = 547) 118.0 ug/dL 40.0-160.0 TOTAL IRON BINDING CAPACITY 170 ug/dL 250-450 L (BEAKER) (test code = 769) IRON % SATURATION (2) (BEAKER) 69 % 20-55 H (test code = 2590) Basket Machine Operator ID - EDASITroponin [id number] 04:23:00 Test Item Value Reference Range Interpretation Comments Troponin I (test code = 0.46 ng/mL 0-0.03 72741-2) FANTA (test code = FANTA) Troponin I [...] DB Lab Interpretation (test Abnormal code = 77147-7) [facility] [id number] 04:23:00 Test Item Value Reference Range Interpretation [...] failure, acidosis, acute neurological disease, and persistent tachyarrhythmia.Basket Machine Operator ID - [id number] 04:20:00 Test Item Value Reference Range Interpretation Comments PHOSPHORUS (BEAKER) (test code = 10.5 mg/dL 2.3-4.7 604) Basket Machine Operator ID - DBCOMPREHENSIVE METABOLIC [id number] 04:19:00 Test Item Value Reference Range Interpretation [...] S NOT APPLICABLE FOR DIALYSIS PATIEN TS. Basket Machine Operator ID - [id number] 04:11:00 Test Item Value Reference Range Interpretation Comments MAGNESIUM (BEAKER) (test code = 2.0 mg/dL 1.6-2.6 627) Basket Machine Operator ID - DBHEPATIC FUNCTION [id number] 04:11:00 Test Item Value Reference Range Interpretation [...] (test code = 9 U/L 6-55 347) Basket Machine Operator ID - DBPT/[id number] 04:11:00 Test Item Value Reference Range Interpretation [...] is2.5-3.5 for patients wiht mechanical heart valves.Reticulocyte [id number] 04:06:00 Test Item Value Reference Range Interpretation Comments % Retic (test code = 1.5 % 0.5-1.8 88514-0) FANTA (test code = FANTA) Basket Machine Operator ID - 6000 Lab Interpretation (test Normal code = 60566-3) [facility] CenterRETICULOCYTE [id number] 04:06:00 Test Item Value Reference Range Interpretation Comments RETICULOCYTE COUNT PCT (BEAKER) (test 1.5 % 0.5-1.8 code = 575) Basket Machine Operator ID - 6000Lactic acid, [id number] 04:05:00 Test Item Value Reference Range Interpretation Comments Lactate, Venous (test code = 0.42 mmol/L 0.5-2.2 L 2872) FANTA (test code = FANTA) Basket Machine Operator ID - DB Lab Interpretation (test Abnormal code = 34457-0) [facility] CenterLACTIC ACID, [id number] 04:05:00 Test Item Value Reference Range Interpretation Comments LACTATE BLOOD VENOUS (2) (BEAKER) 0.42 mmol/L 0.50-2.20 L (test code = 2872) Basket Machine Operator ID - DBCALCIUM, [id number] 04:03:00 Test Item Value Reference Range Interpretation Comments CALCIUM IONIZED (BEAKER) (test 1.02 mmol/L 1.12-1.27 L code = 698) PH, BLOOD (BEAKER) (test code = 7.44 1810) Hepatitis B surface [id number] 21:41:00 Test Item Value Reference Range Interpretation Comments HBsAg Screen (test code Nonreactive Nonreactive = 5195-3) FANTA (test code = FANTA) Specimen is considered negative for HBsAg. Lab Interpretation (test Normal code = 00235-9) [facility] CenterHEPATITIS B SURFACE [id number] 21:41:00 Test Item Value Reference Range Interpretation Comments HEPATITIS B SURFACE ANTIGEN (2) Nonreactive Nonreactive (BEAKER) (test code = 2585) Specimen is considered negative for HBsAg.HEMOGLOBIN AND [id number] 20:59:00 Test Item Value Reference Range Interpretation Comments HEMOGLOBIN (BEAKER) (test code = 6.9 GM/DL 13.7-17.5 L 410) HEMATOCRIT (BEAKER) (test code = 20.8 % 40.1-51.0 L 411) Basket Machine Operator ID - 6000TROPONIN [id number] 18:22:00 Test Item Value Reference Range Interpretation [...] failure, acidosis, acute neurological disease, and persistent tachyarrhythmia.Basket Machine Operator ID - ROSIANGB-type Natriuretic Factor (BNP)2020-05-24 18:01:00 Test Item Value Reference Range Interpretation Comments BNP (test code = 10914-0) 202 pg/mL 0-100 H FANTA (test code = FANTA) Basket Machine Operator ID - NATASHA Lab Interpretation (test Abnormal code = 64884-3) [facility] CenterB-TYPE NATRIURETIC FACTOR (BNP)2020-05-24 18:01:00 Test Item Value Reference Range Interpretation Comments B-TYPE NATRIURETIC PEPTIDE (BEAKER) 202 pg/mL 0-100 H (test code = 700) Basket Machine Operator EVELYNE LUAIV-1 Antigen with HIV-1/2 Ikzwwgee7476-98-45 13:43:00 Test Item Value Reference Range Interpretation Comments HIV-1 Antigen with HIV 1&2 Nonreactive Nonreactive Antibody (test code = 86485-5) Lab Interpretation (test code = Normal 14459-7) [facility] CenterHIV-1 ANTIGEN WITH HIV-1/2 [id number] 13:43:00 Test Item Value Reference Range Interpretation Comments HIV-1 ANTIGEN WITH HIV 1\\T\\2 Nonreactive Nonreactive ANTIBODY (2) (BEAKER) (test code = 2586) TROPONIN [id number] 13:42:00 Test Item Value Reference Range Interpretation [...] failure, acidosis, acute neurological disease, and persistent tachyarrhythmia.Basket Machine Operator ID - CHERYLASIC METABOLIC [id number] 13:37:00 Test Item Value Reference Range Interpretation [...] S NOT APPLICABLE FOR DIALYSIS PATIEN TS. Basket Machine Operator ID - [id number] 13:10:00 Test Item Value Reference Range Interpretation Comments PHOSPHORUS (BEAKER) (test code = 6.3 mg/dL 2.3-4.7 H 604) Basket Machine Operator ID - ROSIANGHEMOGLOBIN AND [id number] 12:38:00 Test Item Value Reference Range Interpretation Comments HEMOGLOBIN (BEAKER) (test code = 7.7 GM/DL 13.7-17.5 L 410) HEMATOCRIT (BEAKER) (test code = 22.7 % 40.1-51.0 L 411) Basket Machine Operator ID - 6000Hemoglobin [id number] 09:17:00 Test Item Value Reference Range Interpretation Comments Hemoglobin A1C (test code = 4548-4) 5.8 % 4.3-6.1 Lab Interpretation (test code = Normal 41586-7) [facility] CenterHEMOGLOBIN [id number] 09:17:00 Test Item Value Reference Range Interpretation Comments HEMOGLOBIN A1C (BEAKER) (test code = 5.8 % 4.3-6.1 368) TROPONIN [id number] 08:48:00 Test Item Value Reference Range Interpretation [...] failure, acidosis, acute neurological disease, and persistent tachyarrhythmia.Basket Machine Operator ID - ROSIANGBASIC METABOLIC [id number] 08:33:00 Test Item Value Reference Range Interpretation [...] S NOT APPLICABLE FOR DIALYSIS PATIEN TS. Basket Machine Operator ID - ROSIANGHEMOGLOBIN AND [id number] 08:12:00 Test Item Value Reference Range Interpretation Comments HEMOGLOBIN (BEAKER) (test code = 8.1 GM/DL 13.7-17.5 L 410) HEMATOCRIT (BEAKER) (test code = 23.5 % 40.1-51.0 L 411) Basket Machine Operator ID - 6000Vitamin B12 and Xxanfm5072-76-95 05:56:00 Test Item Value Reference Range Interpretation Comments Vitamin B12 (test code = 237 pg/mL 977-121 7292-9) Folate (test code = 4.00 ng/mL >=7.00 L 2284-8) FANTA (test code = FANTA) Basket Machine Operator ID - EDASI Lab Interpretation (test Abnormal code = 20487-0) [facility] CenterVITAMIN B12 AND [id number] 05:56:00 Test Item Value Reference Range Interpretation Comments VITAMIN B12 (BEAKER) (test code = 237 pg/mL 213-816 774) FOLATE (BEAKER) (test code = 362) 4.00 ng/mL >=7.00 L Basket Machine Operator ID - EDASIBASIC METABOLIC [id number] 04:53:00 Test Item Value Reference Range Interpretation [...] S NOT APPLICABLE FOR DIALYSIS PATIEN TS. Basket Machine Operator ID - [id number] 04:52:00 Test Item Value Reference Range Interpretation Comments PHOSPHORUS (BEAKER) (test code = 13.6 mg/dL 2.3-4.7 HH 604) Basket Machine Operator ID - EDASICALCIUM, [id number] 04:49:00 Test Item Value Reference Range Interpretation Comments CALCIUM IONIZED (BEAKER) (test 0.96 mmol/L 1.12-1.27 L code = 698) PH, BLOOD (BEAKER) (test code = 7.23 1810) [id number] 04:42:00 Test Item Value Reference Range Interpretation Comments MAGNESIUM (BEAKER) (test code = 2.6 mg/dL 1.6-2.6 627) Basket Machine Operator ID - EDASIHEPATIC FUNCTION [id number] 04:42:00 Test Item Value Reference Range Interpretation [...] (test code = 12 U/L 6-55 347) Basket Machine Operator ID - EDASIPT/LJLK3737-85-76 04:41:00 Test Item Value Reference Range Interpretation [...] mechanical heart valves.CBC W/PLT COUNT & AUTO [id number] 04:37:00 Test Item Value Reference Range Interpretation [...] (BEAKER) (test code = 2801) LACTIC ACID, [id number] 04:29:00 Test Item Value Reference Range Interpretation Comments LACTATE BLOOD VENOUS (2) (BEAKER) 0.34 mmol/L 0.50-2.20 L (test code = 2872) Basket Machine Operator ID - YEFRI, tcmyzq6986-15-75 04:16:00 Test Item Value Reference Range Interpretation Comments ABO Grouping (test code = 2588) O Rh Factor (test code = 2589) [facility]pt[facility] ONLY[facility]2020-05-24 04:13:00 Test Item Value Reference Range Interpretation Comments SARS-COV2/RT-PCR Negative Not Detected, (test code = Negative, See 31227-5) external report for linked test SARS-COV-2 [facility]FORM[facility] (test code = 88692-0) FANTA (test code = Negative results do [...] of the Act. Fact Sheet for Healthcare Providers:https://www.[employer]/Documents/Xper t%20Xpress%20SARS%20CoV- 2/Fact%20Sheets/302-3802 %64AAMC-FSI-5%20HEALTHCA RE%20PROVIDERS%20FACT%20 SHEET.pdf Fact Sheet for Healthcare Patients:https://www.[employer]/Documents/Xpert %20Xpress%20SARS%20CoV-2 /Fact%20Sheets/302-3801% 20GLLI-TNE-9%20PATIENT%2 0FACT%20SHEET.pdf Performing Laboratory:[facility] [place], [place] [address], [place] [address] [place], [place] [address]ARS-COV2/RT-PCR ([facility])2020-05-24 04:13:00 Test Item Value Reference Range Interpretation Comments SARS-COV2/RT-PCR (test code Negative Not Detected, Negative, = 3598341) See external report for linked test SARS-COV-[address] [facility] (test code = 6237672) Negative results do not preclude SARS-CoV-2 infection [...] of the Act.Fact Sheet for Healthcare Pro viders:https://www.[employer]/Documents/Xpert%20Xpress%20SARS%20CoV-2/Fact%20Sh eets/3023802%21JXGN-BYN-0%20HEALTHCARE%20PROVIDERS%20FACT%20SHEET.pdfFact Sheet for Healthcare Patients:https://www.[employer]/Documents/Xpert%20Xpress%20SARS%20CoV-2/Fact%20Sheets/3023801%20SARS-COV -2%20PATIENT%20FACT%20SHEET.pdfPerforming Laboratory:[facility], [place] [address]WN/[id number] 03:29:00 Test Item Value Reference Range Interpretation [...] is2.5-3.5 for patients wiht mechanical heart valves.TROPONIN [id number] 02:23:00 Test Item Value Reference Range Interpretation [...] failure, acidosis, acute neurological disease, and persistent tachyarrhythmia.Basket Machine Operator ID Joseph FUNEZ WBASIC METABOLIC [id number] 02:22:00 Test Item Value Reference Range Interpretation [...] S NOT APPLICABLE FOR DIALYSIS PATIEN TS. Basket Machine Operator ID Joseph FUNEZ [id number] 02:21:00 Test Item Value Reference Range Interpretation Comments PHOSPHORUS (BEAKER) (test code = 14.1 mg/dL 2.3-4.7 HH 604) Basket Machine Operator ID Joseph FUNEZ [id number] 02:16:00 Test Item Value Reference Range Interpretation Comments MAGNESIUM (BEAKER) (test code = 2.6 mg/dL 1.6-2.6 627) Basket Machine Operator ID Joseph FUNEZ WHEPATIC FUNCTION [id number] 02:16:00 Test Item Value Reference Range Interpretation [...] (test code = 10 U/L 6-55 347) Basket Machine Operator ID Joseph FUNEZ WB-TYPE NATRIURETIC FACTOR (BNP)2020-05-24 02:12:00 Test Item Value Reference Range Interpretation Comments B-TYPE NATRIURETIC PEPTIDE (BEAKER) 459 pg/mL 0-100 H (test code = 700) Basket Machine Operator EVELYNE FUNEZ WCBC W/PLT COUNT & AUTO [id number] 02:11:00 Test Item Value Reference Range Interpretation [...] (BEAKER) (test code = 2801) LACTIC ACID, [id number] 02:03:00 Test Item Value Reference Range Interpretation Comments LACTATE BLOOD VENOUS (2) (BEAKER) 0.68 mmol/L 0.50-2.20 (test code = 2872) Basket Machine Operator ID - DEE DEE ANNIEpecimejuan antonio slightly [...] MDReport Verified Date/Time: 05/24/2020 01:55:13 Blood gas, [id number] 01:37:00 Test Item Value Reference Range Interpretation Comments pH, Duc (test code = 2746-6) 7.27 7.32-7.42 L pCO2, Duc (test code = 755) 26 41- 51 mmHg L pO2, Duc (test code = 2705-2) 63 25- 40 mmHg H O2 Sat, Duc (test code = 2711-0) 89.7 % 40-70 H HCO3, Duc (test code = 91645-9) 12 mmol/L 21-29 L Base Excess, Duc (test code = -14.0 mmol/L -2-3 L 1927-3) Patient Temperature (test code = 37.0 C 8310-5) FIO2 (test code = 1819) 100 % Lab Interpretation (test code = Abnormal 80823-4) [facility] CenterBLOOD GAS, [id number] 01:37:00 Test Item Value Reference Range Interpretation [...] (BEAKER) (test code = 1819) 100.0 % HEP-[id number] 00:00:00Ordered by an unspecified provider.[facility])2020-02-23 11:58:00 Test Item Value Reference Range Interpretation Comments SARS-COV2/RT-PCR (test code = Negative Not Detected, Negative 0222649) SARS-COV-[address] [facility] (test code = 3715377) Negative result for this test determines that [...] 564(g) of the Act.Fact Sheet for Healthcare Providers:https://www.[employer].com/sites/default/files/product/documents/Fact_Shee x_NO_Htirucztz_Ldqn_HZHX-JwG-0.pdfFact Sheet for Healthcare Patients:https://www.[employer].com/sites/default/files/product/ documents/Hpcg_Mluvc_Xtrszwsu_Uokf_ZJNZ-NoH-3.pdfPerforming Laboratory:[facility] [place] [address]
[2020-07-15 14:44] LABS: Absolute Lymphocytes (CBC) 3.5 K/uL (0.7-4.9); Hematocrit 25.8 % (39.6-49.0); RBC Red Blood Cell Count 2.67 M/uL (4.33-5.43)
[2020-07-15 15:08] LABS: Platelet Estimate DECR; White Blood Cell Scan OK (OK)
[2020-07-15 15:09] LABS: Blood Morphology Comment NOT SEEN (NOT SEEN)
--- NOTE | 2020-07-15 15:29 | RAD REPORT ---
EXAM DESCRIPTION: RAD - Hip Left 2 View - 07/15/2020 3:20 pm CLINICAL HISTORY: PAIN COMPARISON: Hip Left 2 View dated 07/11/2020; Hip Left 2 View dated 07/01/2020; Pelvis Wo Cont dated 07/11/2020 FINDINGS: AP and frogleg views of the left hip were obtained. There is no fracture or dislocation. No acute or destructive bony process seen. No significant soft tissue finding. IMPRESSION: Negative left hip examination for acute or significant findings.
[2020-07-15 15:32] LABS: Albumin 3.1 g/dL (3.4-5.0); Bilirubin Direct 0.1 mg/dL (0-0.2); Bilirubin Total 0.4 mg/dL (0.2-1.0); Magnesium 2.6 mg/dL (1.8-2.4); Potassium 7.2 mmol/L (3.5-5.1); Protein, Total 7.9 g/dL (6.4-8.2)
--- NOTE | 2020-07-15 15:32 | RAD REPORT ---
EXAM DESCRIPTION: RAD - Wrist Right 3 View - 07/15/2020 3:20 pm CLINICAL HISTORY: PAIN, fall COMPARISON: No comparisons FINDINGS: No fracture is identified. There is no dislocation or periosteal reaction noted. Degenerat antony cystic change seen in the ulna side of the lunate bone and in the proximal scaphoid. No foreign b alicia or other soft tissue abnormality. IMPRESSION: Negative right wrist examination for fracture or acute finding.
--- NOTE | 2020-07-15 15:33 | RAD REPORT ---
EXAM DESCRIPTION: Shoulder Right 2 View - 07/15/2020 3:20 pm CLINICAL HISTORY: PAIN, fall COMPARISON: No comparisons TECHNIQUE: Internal and external rotation views of the right shoulder were obtained. FINDINGS: There is no fracture or dislocation. Mild AC joint degenerative change present without se paration. No acute finding in the upper chest. Double-lumen dialysis catheter in place on the right. IMPRESSION: Negative two view right shoulder examination for fracture or other acute finding.
--- NOTE | 2020-07-15 16:16 | ER ---
Nurse's Notes [facility] Name: Cr Orellana Age: 55 yrs Sex: Male : 1965 Arrival Date: 07/15/2020 Time: 13:01 Bed 5 Private MD: Diagnosis: Hyperkalemia;Elevated white blood cell count Presentation: 07/15 13:02 Chief complaint: Patient states: Was waiting outside dialysis clinic for session that ss was scheduled at 1200. Pt reports he had been waiting for 3 hours because he wouldn't have a ride otherwise and when he knocked on the window and turned around quickly, he became dizzy and fell. Pt c/o dizziness when repositioning and pain to R shoulder. Coronavirus screen: Client denies travel out of the [place] in the last 14 days. Ebola Screen: Patient denies exposure to infectious person. Patient denies travel to an Ebola-affected area in the 21 days before illness onset. Initial Sepsis Screen: Does the patient meet any 2 criteria? No. Patient's initial sepsis screen is negative. Does the patient have a suspected source of infection? No. Patient's initial sepsis screen is negative. Risk Assessment: Do you want to hurt yourself or someone else? Patient reports no desire to harm self or others. Note Pt reports he tested positive for covid 1 week ago. Onset of symptoms was July 15, 2020. 13:02 Method Of Arrival: EMS: [facility] 13:02 Acuity: HUYEN 3 ss 14:50 Coronavirus screen: Client reports previous positive COVID test result. Triage Assessment: 13:05 General: Appears in no apparent distress. comfortable, Behavior is cooperative, bp appropriate for age, anxious. Pain: Complains of pain in anterior aspect of right shoulder. EENT: No deficits noted. Neuro: Reports dizziness. Cardiovascular: No deficits noted. Respiratory: No deficits noted. GI: No signs and/or symptoms were reported involving the gastrointestinal system. : No signs and/or symptoms were reported regarding the genitourinary system. Derm: No deficits noted. Musculoskeletal: No deficits noted. Historical: - Allergies: 13:06 No Known Allergies; ss - PMHx: 13:06 DIALYSIS MWF; Hypertension; seasonal allergies; ss - Immunization history:: Adult Immunizations up to date. - Social history:: Smoking status: Patient denies any tobacco usage or history of. Patient/guardian denies using alcohol, street drugs, The patient lives with family. - Family history:: not pertinent. Screenin:05 Abuse screen: Denies threats or abuse. Denies injuries from another. Nutritional bp screening: No deficits noted. Tuberculosis screening: No symptoms or risk factors identified. Fall Risk None identified. Assessment: 13:10 General: SEE TRIAGE NOTE. bp 13:10 Pain: Complains of pain in anterior aspect of right shoulder. bp 14:37 Reassessment: multiple unsuccessful attempts obtaining PIV. Dr. Milton notified and ss states ok to give Toradol IM and to wait until labs result. 14:43 Reassessment: No changes from previously documented assessment. UNABLE TO OBTAIN PIV bp DESPITE MX ATTEMPTS BY MX STAFF. MD AWARE. 16:00 Reassessment: Patient appears in no apparent distress at this time. Patient and/or bp family updated on plan of care and expected duration. Pain level reassessed. Patient is alert, oriented x 3, equal unlabored respirations, skin warm/dry/pink. PIV ESTABLISHED. NOTIFIED. 17:00 Reassessment: Patient appears in no apparent distress at this time. ADMIT IN PROCESS. bp Patient denies pain at this time. 17:47 Reassessment: Spoke with Owen with laboratory to run COVID swab "In house". ss 18:00 Reassessment: Patient appears in no apparent distress at this time. No changes from bp previously documented assessment. Patient and/or family updated on plan of care and expected duration. Pain level reassessed. Patient states symptoms have improved. Vital Signs: 13:02 BP 173 / 100; Pulse 83; Resp 18; Pulse Ox 100% on R/A; Weight 68.04 kg; Height 5 ft. 6 ss in. (167.64 cm); Pain 9/10; 13:15 Temp 98.2(TE); ss 14:00 BP 168 / 90; Pulse 89; Resp 22; Pulse Ox 100% ; bp 15:00 BP 163 / 96; Pulse 85; Resp 16; Pulse Ox 100% ; bp 16:00 BP 168 / 95; Pulse 100; Resp 17; Pulse Ox 100% ; bp 17:00 BP 164 / 101; Pulse 80; Resp 18; Pulse Ox 100% ; bp 18:00 BP 159 / 89; Pulse 70; Resp 14; Pulse Ox 99% ; bp 13:02 Body Mass Index 24.21 (68.04 kg, 167.64 cm) ED Course: 13:01 Patient arrived in ED. ss 13:03 Getachew Kwan, JUAN DANIEL is Primary Nurse. bp 13:04 Scott Milton MD is Attending Physician. ma2 13:05 Triage completed. ss 13:05 Patient has correct armband on for positive identification. Bed in low position. Call bp light in reach. Side rails up X2. 13:06 Arm band placed on right wrist. ss 14:10 Missed attempt(s): 24 gauge in left wrist. Bleeding controlled, band aid applied, dh3 catheter tip intact. 14:16 Missed attempt(s): 22 gauge in right antecubital area. Bleeding controlled, band aid dh3 applied, catheter tip intact. 14:36 Missed attempt(s): 24 gauge in right hand. Bleeding controlled, band aid applied, ss catheter tip intact. 14:36 Missed attempt(s): 22 gauge in right forearm. Bleeding controlled, band aid applied, ss catheter tip intact. 14:57 X-ray(s) taken. sv 15:20 Hip Left 2 View XRAY In Process Unspecified. EDMS 15:20 Wrist Right 3 View XRAY In Process Unspecified. EDMS 15:21 Shoulder Right (2 View) XRAY In Process Unspecified. EDMS 16:00 Inserted saline lock: 22 gauge in right hand, using aseptic technique. bp 16:15 Jim Muniz MD is Hospitalizing Provider. ma2 Administered Medications: 14:35 Not Given (Physician Discretion): TORadol 30 mg IVP once ss 14:42 Drug: TORadol 30 mg Route: IM; Site: left gluteus; bp 15:12 Follow up: Response: Pain is decreased bp 16:00 Drug: Albuterol HFA Inhaler 2 puffs Route: Inhalation; bp 16:00 Drug: Insulin Regular Human 10 units {Co-Signature: sv (Valeria Beckwith RN).} Route: bp IVP; Site: right hand; 17:15 Follow up: Response: No adverse reaction bp 16:00 Drug: D50W 100 ml Route: IVP; Site: right hand; bp 17:14 Follow up: Response: No adverse reaction bp 16:00 Drug: Calcium Gluconate 1 grams Route: IVPB; Infused Over: 60 mins; Site: right hand; bp 17:15 Follow up: IV Status: Completed infusion; IV Intake: 100ml bp Intake: 17:15 IV: 100ml; Total: 100ml. bp Outcome: 16:15 Decision to Hospitalize by Provider. bernice 19:32 Admitted to Med/surg accompanied by tech, via stretcher, Report called to charge dm5 nurse, 2nd floor 19:32 Condition: stable 19:32 Discharge instructions given to patient, Instructed on the need for admit. 19:33 Patient left the ED. dm5 Signatures: Dispatcher [employer] EDMS Kate Yip RN Valeria Lin RN Kavya Winslow RN RN Radha Baires [facility] Getachew Kwan RN RN Scott Collado MD MD [facility] Valeria krishna Corrections: (The following items were deleted from the chart) 14:51 13:02 Ebola Screen: Patient denies exposure to infectious person. Patient denies travel ss to an Ebola-affected area in the 21 days before illness onset. ss
--- NOTE | 2020-07-15 16:16 | EDPHYS ---
Physician Documentation [facility] Name: Cr Orellana Age: 55 yrs Sex: Male : 1965 Arrival Date: 07/15/2020 Time: 13:01 Bed 5 Private MD: ED Physician Scott Milton HPI: 07/15 15:28 This 55 yrs old Male presents to ER via EMS with complaints of Fall Injury. ma2 15:28 Details of fall: The patient fell from seated position. Onset: The symptoms/episode ma2 began/occurred suddenly, 1 hour(s) ago. Severity of symptoms: At their worst the symptoms were mild, in the emergency department the symptoms are unchanged. The patient has not experienced similar symptoms in the past. has right shoulder and wrist pain and left hip pain . Historical: - Allergies: 13:06 No Known Allergies; ss - PMHx: 13:06 DIALYSIS MWF; Hypertension; seasonal allergies; ss - Immunization history:: Adult Immunizations up to date. - Social history:: Smoking status: Patient denies any tobacco usage or history of. Patient/guardian denies using alcohol, street drugs, The patient lives with family. - Family history:: not pertinent. ROS: 15:28 Constitutional: Negative for fever, chills, and weight loss. ma2 15:28 All other systems are negative. Exam: 15:28 Constitutional: This is a well developed, well nourished patient who is awake, alert, ma2 and in no acute distress. Neck: Trachea midline, no thyromegaly or masses palpated, and no cervical lymphadenopathy. Supple, full range of motion without nuchal rigidity, or vertebral point tenderness. No Meningismus. Chest/axilla: Normal chest wall appearance and motion. Nontender with no deformity. No lesions are appreciated. Cardiovascular: Regular rate and rhythm with a normal S1 and S2. No gallops, murmurs, or rubs. Normal PMI, no JVD. No pulse deficits. Respiratory: Lungs have equal breath sounds bilaterally, clear to auscultation and percussion. No rales, rhonchi or wheezes noted. No increased work of breathing, no retractions or nasal flaring. Abdomen/GI: Soft, non-tender, with normal bowel sounds. No distension or tympany. No guarding or rebound. No evidence of tenderness throughout. Back: No spinal tenderness. No costovertebral tenderness. Full range of motion. MS/ Extremity: Pulses equal, no cyanosis. Neurovascular intact. Full, normal range of motion. Neuro: Awake and alert, GCS 15, oriented to person, place, time, and situation. Cranial nerves II-XII grossly intact. Motor strength 5/5 in all extremities. Sensory grossly intact. Cerebellar exam normal. Normal gait. Vital Signs: 13:02 BP 173 / 100; Pulse 83; Resp 18; Pulse Ox 100% on R/A; Weight 68.04 kg; Height 5 ft. 6 ss in. (167.64 cm); Pain 9/10; 13:15 Temp 98.2(TE); ss 14:00 BP 168 / 90; Pulse 89; Resp 22; Pulse Ox 100% ; bp 15:00 BP 163 / 96; Pulse 85; Resp 16; Pulse Ox 100% ; bp 16:00 BP 168 / 95; Pulse 100; Resp 17; Pulse Ox 100% ; bp 17:00 BP 164 / 101; Pulse 80; Resp 18; Pulse Ox 100% ; bp 18:00 BP 159 / 89; Pulse 70; Resp 14; Pulse Ox 99% ; bp 13:02 Body Mass Index 24.21 (68.04 kg, 167.64 cm) ss MDM: 13:04 Patient medically screened. wa2 15:28 Differential diagnosis: abrasion, contusion, fracture, multiple trauma, sprain, strain. [facility] 16:14 Data reviewed: vital signs, nurses notes. Counseling: I had a detailed discussion with ma2 the patient and/or guardian regarding: the historical points, exam findings, and any diagnostic results supporting the discharge/admit diagnosis, the presence of at least one elevated blood pressure reading (>120/80) during this emergency department visit, the need for further work-up and treatment in the hospital. Response to treatment: the patient's symptoms have markedly improved after treatment. ED course: needs emergent HD discussed with dr Garcia and accepted by dr. muniz. 07/15 13:09 Order name: Basic Metabolic Panel; Complete Time: 15:35 [facility] 07/15 13:09 Order name: CBC with Diff; Complete Time: 15:32 [facility] 07/15 13:09 Order name: Hepatic Function; Complete Time: 15:35 [facility] 07/15 13:09 Order name: Magnesium; Complete Time: 15:35 ma2 07/15 13:09 Order name: Ptt, Activated; Complete Time: 15:32 ma2 07/15 15:07 Order name: Urine Dipstick--Ancillary (enter results) bd 07/15 13:15 Order name: Hip Left 2 View XRAY; Complete Time: 15:32 ma2 07/15 13:15 Order name: Wrist Right 3 View XRAY; Complete Time: 15:35 wa2 07/15 13:15 Order name: Shoulder Right (2 View) XRAY; Complete Time: 15:47 wa2 07/15 15:09 Order name: CBC Smear Scan; Complete Time: 15:32 EDMS 07/15 15:34 Order name: Chest Single View XRAY wa2 07/15 15:51 Order name: COVID-19 [facility] 07/15 17:00 Order name: RAD EDCO 07/15 19:06 Order name: SARS-COV-2 RT PCR [facility] 07/15 13:09 Order name: EKG; Complete Time: 13:10 ma2 07/15 13:09 Order name: Cardiac monitoring; Complete Time: 14:36 wa2 07/15 13:09 Order name: EKG - Nurse/Tech; Complete Time: 14:36 wa2 07/15 13:09 Order name: Labs collected and sent; Complete Time: 14:35 ma2 07/15 13:09 Order name: NPO; Complete Time: 14:36 ma2 07/15 13:09 Order name: O2 Per Protocol; Complete Time: 14:36 wa2 07/15 13:09 Order name: O2 Sat Monitoring; Complete Time: 14:35 wa2 07/15 13:09 Order name: Urine Dipstick-Ancillary (obtain specimen); Complete Time: 15:12 ma2 Administered Medications: 14:35 Not Given (Physician Discretion): TORadol 30 mg IVP once ss 14:42 Drug: TORadol 30 mg Route: IM; Site: left gluteus; bp 15:12 Follow up: Response: Pain is decreased bp 16:00 Drug: Albuterol HFA Inhaler 2 puffs Route: Inhalation; bp 16:00 Drug: Insulin Regular Human 10 units {Co-Signature: sv (Valeria Beckwith RN).} Route: bp IVP; Site: right hand; 17:15 Follow up: Response: No adverse reaction bp 16:00 Drug: D50W 100 ml Route: IVP; Site: right hand; bp 17:14 Follow up: Response: No adverse reaction bp 16:00 Drug: Calcium Gluconate 1 grams Route: IVPB; Infused Over: 60 mins; Site: right hand; bp 17:15 Follow up: IV Status: Completed infusion; IV Intake: 100ml bp Disposition: 07/15/20 16:15 Hospitalization ordered by Jim Muniz for Inpatient Admission. Preliminary diagnosis are Hyperkalemia, Elevated white blood cell count. - Bed requested for Telemetry/MedSurg (Inpatient). - Status is Inpatient Admission. dm5 - Condition is Stable. - Problem is new. - Symptoms are unchanged. Signatures: Dispatcher [employer] EDMS Kate Yip RN RN dm5 Kavya Xavier RN RN Afua Martínez RN RN tl1 Getachew Kwan RN RN Scott Milton MD MD wa2 Valeria Beckwith RN sv Corrections: (The following items were deleted from the chart) 14:47 13:09 IV Saline Lock ordered. ma2 bp 19:19 16:15 Hospitalization Ordered by Jim Muniz MD for Inpatient Admission. Preliminary tl1 diagnosis is Hyperkalemia; Elevated white blood cell count. Bed requested for Telemetry/MedSurg (Inpatient). Status is Inpatient Admission. Condition is Stable. Problem is new. Symptoms are unchanged. [facility] 19:33 19:19 07/15/2020 16:15 Hospitalization Ordered by Jim Muniz MD for Inpatient dm5 Admission. Preliminary diagnosis is Hyperkalemia; Elevated white blood cell count. Bed requested for Telemetry/MedSurg (Inpatient). Status is Inpatient Admission. Condition is Stable. Problem is new. Symptoms are unchanged. tl1
--- NOTE | 2020-07-15 16:29 | P.HP ---
Certification for Inpatient Patient admitted to: Inpatient With expected LOS: >2 Midnights Practitioner: I am a practitioner with admitting privileges, knowledge of patient current condition, hospital course, and medical plan of care. Services: Services provided to patient in accordance with Admission requirements found in Title 42 Section 412.3 of the Code of Federal Regulations Patient History Date of Service: 07/15/20 Reason for admission: Hyperkalemia, ESRD - need for urgent dialysis History of Present Illness: 55yo male, PMH: ESRD on HD, HTN who presented to ED after fall from seated position. Patient states he has not been feeling well the past few days. He skipped dialysis this past Monday due to not having a ride. He reports he did not receive dialysis today - he reports he showed up at 8am and waited until noon and was never let in to get dialysis. He then began to have pain and was uncomfortable, so he got up to leave when he became dizzy and fell down. He endorses L hip pain that he has had for the past 1-2 months, no other pains at this time. He was recently admitted here from 07/01-07/06 for COVID pneumonia. He reports taking his medications as prescribed. He denies SOB or cough, does report some chills / night sweats since discharge. In the ED: he was found to be hyperkalemic (7.2), received insulin, kayexelate, etc; leukocytosis of 19, Hgb: 8.5, plt: 112, NA: 129, Cr: 14.2, M.6. Nephrology was consulted in ED and recommended admission for urgent dialysis. Allergies No Known Allergies Allergy (Unverified 02/22/20 16:32) Home Medications: Calcium Carbonate [Tums Regular*] 1,000 mg PO AC #90 tab 03/03/20 Carvedilol [Coreg] 25 mg PO BID #60 tablet 03/03/20 Atorvastatin Calcium [Lipitor*] 20 mg PO BEDTIME 07/01/20 Codeine/APAP [Tylenol #3*] 1 tab PO Q6HR 07/01/20 Cyanocobalamin (Vitamin B-12) [Vitamin B12] 1,000 mcg PO DAILY 07/01/20 Doxazosin [Cardura*] 2 mg PO BEDTIME 07/01/20 Folic Acid 1 mg PO DAILY 07/01/20 Gabapentin 300 mg PO BID 07/01/20 Omeprazole [Prilosec] 40 mg PO DAILY 07/01/20 Pantoprazole [Protonix Tab*] 40 mg PO DAILY 07/01/20 Sevelamer Carbonate 800 mg PO TID 07/01/20 Tamsulosin [Flomax*] 0.4 mg PO BEDTIME #30 cap 07/06/20 Thiamine HCl [Vitamin B-1*] 100 mg PO DAILY #30 tablet 07/06/20 Zinc Sulfate [Zinc Sulfate*] 220 mg PO DAILY #30 cap 07/06/20 predniSONE [Deltasone*] 10 mg PO BID #10 tab 07/06/20 - Past Medical/Surgical History Diabetic: No -: GERD -: Prior GI bleed -: ESRD on hemodialysis -: Anemia of chronic disease -: Hypertension -: Hyperlipidemia -: BPH -: pelvis sx 11 years ago Psychosocial/ Personal History: Patient is homeless. He does not have any famil y members. - Family History Family History: Reviewed- Non-Contributory - Social History Smoking Status: Current some day smoker Alcohol use: No CD- Drugs: No Caffeine use: No Place of Residence: Homeless Physical Examination - Physical Exam General: Alert, Oriented x3, Cachectic, Mild distress (appears uncomfortable / in pain) HEENT: Sclerae nonicteric Respiratory: Other (non-labored on RA) Cardiovascular: No edema, Regular rate/rhythm Gastrointestinal: Soft and benign, No tenderness Integumentary: No rashes, No significant lesion Neurological: Normal speech, Normal affect - Studies Laboratory Data (last 24 hrs) 07/15/20 14:33: APTT 18.8 L 07/15/20 14:33: WBC 19.6 H D, Hgb 8.5 L, Hct 25.8 L, Plt Count 112 L 07/15/20 14:33: Sodium 129 L, Potassium 7.2 H*, BUN 115 H D, Creatinine 14.20 H* D, Glucose 100, Magnesium 2.6 H D, Total Bilirubin 0.4, AST 33, ALT 22, Alkaline Phosphatase 98 Assessment and Plan - Advance Directives Does patient have a Living Will: No Does patient have a Durable POA for Healthcare: No Physician Review Additional Text: Hyperkalemia, ESRD on hemodialysis Anemia of chronic disease Leukocytosis GERD, h/o GI bleed (02/2020) Hypertension Hyperlipidemia Left Hip pain COVID+ on 07/01 discussed with nephrology - admit for urgent dialysis today received hyperkalemia cocktail in ED monitor on telemetry obtain and restart home meds as appropriate unclear etiology of leukocytosis, nonfocal exam, CXR pending, pt has been on steroids since discharge which is likely the cause, vitals ok, pt denies SOB / fever / abdominal pain / dysuria /diarrhea. Tylenol #3 for left hip pain - had questionable occult fracture seen ~1 month ago Code: full VTE: SCDs - pt with h/o GI bleed Dispo: will likely need multiple HD prior to discharge, suspect >2 day hospitalization Time Spent Managing Pts Care (In Minutes): 55
[2020-07-15 16:36] LABS: Urine Blood TRACE (NEG); Urine Glucose TRACE (NEG); Urine Protein 2+ (NEG); Urine Specific Gravity 1.015 (1.005-1.030); Urine pH 7.5 (5.0-7.0)
--- NOTE | 2020-07-15 17:00 | RAD REPORT ---
EXAM DESCRIPTION: RAD - Chest Single View - 07/15/2020 4:49 pm CLINICAL HISTORY: elevated wbc syncope ?CAP COMPARISON: July 11 TECHNIQUE: AP portable chest image was obtained 07/15/2020 4:49 pm . FINDINGS: Double-lumen dialysis catheter in place on the right. Interstitial and patchy alveolar opa cities are present in a pattern similar to comparison. Heart size is normal range. Central vasculatur e is prominent. This is similar or slightly less pronounced than seen previously. No measurable pleur al effusion and no pneumothorax. No acute bony abnormality seen. No acute aortic findings suspected. IMPRESSION: Interstitial and alveolar opacities are present less pronounced than seen previously. In the setting of a dialysis patient, this is likely edema from volume overload.
[2020-07-15] MEDS: CODEINE 30MG/APAP 300MG TAB PO PRN (20:11)
[2020-07-16] MEDS: CODEINE 30MG/APAP 300MG TAB PO PRN ×4 (03:46→20:42)
[2020-07-16 03:49] VITALS: BMI 24.3
[2020-07-16 05:36] LABS: Absolute Lymphocytes (CBC) 2.2 K/uL (0.7-4.9); Basophils % 0.7 % (0-1.3); Hematocrit 23.6 % (39.6-49.0); Lymphocytes % 14.3 % (15.3-44.8); RBC Red Blood Cell Count 2.49 M/uL (4.33-5.43)
[2020-07-16 06:04] LABS: Albumin 2.8 g/dL (3.4-5.0); Bilirubin Total 0.4 mg/dL (0.2-1.0); Phosphorus 5.7 mg/dL (2.5-4.9)
[2020-07-16 06:14] LABS: Potassium 5.9 mmol/L (3.5-5.1)
[2020-07-16] MEDS ORDERED: PANTOPRAZOLE 40MG TABLET PO SCH (09:00)
[2020-07-16] MEDS: carvediloL 25 MG TAB PO SCH ×2 (09:18→20:43)
[2020-07-16] MEDS ORDERED: SOD POLYSTYREN SUL 15 GM/60 ML UCUP PO ONE (10:16)
--- NOTE | 2020-07-16 12:29 | P.PN ---
Subjective Date of Service: 07/16/20 Chief Complaint: Hyperkalemia, ESRD - need for urgent dialysis patient seen/examined. doing well clinically. potassium at 5.9 still. had treatment with dialysis yesterday. alert/answers questions. no sob/no edema. vs stable lungs cta cvs rrr abd soft/nt/nd /bs+ ext no edema labs reviewed a/p: esrd/missed dialysis and compliance has been an issue. clinically stable and volume status is good but k is still high. dialysis today. ok to d/c today if stable after dialysis and f/u at out patient dialysis unit. patient counseled about importance of compliance with dialysis and risks, including , with missing dialysis treatments. plan reviewed with Dr. Muniz. Healthcare Management Consultant (Olaf) informed about plan for dialysis today. orders for dialysis placed. Physical Examination - Vital Signs Temperature: 98.7 F Blood Pressure: 121/75 Pulse: 102 Respirations: 16 Pulse Ox (%): 96 - Studies Laboratory Data (last 24 hrs) 07/15/20 14:33: APTT 18.8 L 07/15/20 14:33: WBC 19.6 H D, Hgb 8.5 L, Hct 25.8 L, Plt Count 112 L 07/15/20 14:33: Sodium 129 L, Potassium 7.2 H*, BUN 115 H D, Creatinine 14.20 H* D, Glucose 100, Magnesium 2.6 H D, Total Bilirubin 0.4, AST 33, ALT 22, Alkaline Phosphatase 98 Assessment And Plan Physician Review Additional Text: Hyperkalemia, ESRD on hemodialysis Anemia of chronic disease Leukocytosis GERD, h/o GI bleed (02/2020) Hypertension Hyperlipidemia Left Hip pain COVID+ on 07/01 discussed with nephrology - admit for urgent dialysis today received hyperkalemia cocktail in ED monitor on telemetry obtain and restart home meds as appropriate unclear etiology of leukocytosis, nonfocal exam, CXR pending, pt has been on steroids since discharge which is likely the cause, vitals ok, pt denies SOB / fever / abdominal pain / dysuria /diarrhea. Tylenol #3 for left hip pain - had questionable occult fracture seen ~1 month ago Code: full VTE: SCDs - pt with h/o GI bleed Dispo: will likely need multiple HD prior to discharge, suspect >2 day hospitalization
--- NOTE | 2020-07-16 15:30 | P.DS ---
Admission Date: 07/15/20 Discharge Date: 07/16/20 Primary Care Provider: none; Nephrology-Dr. Garcia; Pulmonary-Dr. Pizano Disposition: ROUTINE DISCHARGE Discharge Condition: FAIR Reason for Admission: Hyperkalemia, ESRD - need for urgent dialysis Consultations: Nephrology - Dr. Dang, Dr. Bangura Procedures: Chest x-ray (07/15): Interstitial and alveolar opacities are present, less pronounced than seen previously Shoulder x-ray (07/15): Negative two-view right shoulder exam for fracture or other acute finding. Wrist x-ray (07/15): Negative right wrist exam for fracture or acute finding Hip x-ray (07/15): Negative left hip exam for acute or significant findings COVID (07/15): negative Problem list Hyperkalemia, ESRD on hemodialysis Anemia of chronic disease GERD, h/o GI bleed (02/2020) Hypertension Hyperlipidemia Left Hip pain COVID positive on 07/01, COVID negative on 07/15 Brief History of Present Illness: 55yo male, PMH: ESRD on HD, HTN who presented to ED after fall from seated position while reportedly waiting for dialysis. Patient states he has not been feeling well the past few days, skipped dialysis this past Monday due to not having a ride and did not receive dialysis on day of admission. He reports he showed up at 8am and waited until noon and was never let in to get dialysis. He then began to have pain and was uncomfortable, so he was getting up to leave when he became dizzy and fell down. He was recently admitted here from 07/01-07/06 for COVID pneumonia. He reports taking his medications as prescribed. In the ED: he was found to be hyperkalemic (7.2), received insulin, kayexelate, etc; leukocytosis of 19, Hgb: 8.5, plt: 112, NA: 129, Cr: 14.2, M.6. Nephrology was consulted in ED and recommended admission for urgent dialysis. Hospital Course: Patient underwent dialysis on day of admission and reported feeling better, he remained hyperkalemic so he underwent dialysis again on 07/16. He was discharged home to resume dialysis as scheduled tomorrow. No changes were made to his medications. Patient reported he was still taking prednisone which is the likely cause of his leukocytosis. His leukocytosis did improve after dialysis and he remained afebrile throughout his hospitalization. His exam and labwork were otherwise nonfocal / did not have any signs of infection. He was re-swabbed for COVID on 07/15 and was negative. Vital Signs/Physical Exam: Temp Pulse Resp BP Pulse Ox 98.7 F 102 H 16 121/75 96 07/16/20 12:29 07/16/20 12:29 07/16/20 14:50 07/16/20 12:29 07/16/20 14:50 General: Alert, In no apparent distress, Oriented x3 HEENT: Sclerae nonicteric Respiratory: Clear to auscultation bilaterally, Diminished (mildly at bases bilaterally) Cardiovascular: No edema, Regular rate/rhythm Gastrointestinal: Soft and benign, No tenderness Musculoskeletal: Tenderness (R buttock tenderness (chronic)) Neurological: Normal speech, Normal affect Laboratory Data at Discharge: WBC 15.3 K/uL (4.3-10.9) H D 07/16/20 05:09 Hgb 8.0 g/dL (13.6-17.9) L 07/16/20 05:09 Hct 23.6 % (39.6-49.0) L 07/16/20 05:09 Plt Count 101 K/uL (152-406) L 07/16/20 05:09 APTT 18.8 SECONDS (24.3-36.9) L 07/15/20 14:33 Sodium 136 mmol/L (136-145) 07/16/20 05:09 Potassium 5.9 mmol/L (3.5-5.1) H* 07/16/20 05:09 BUN 49 mg/dL (7-18) H D 07/16/20 05:09 Creatinine 7.75 mg/dL (0.55-1.3) H* D 07/16/20 05:09 Glucose 96 mg/dL (74-106) 07/16/20 05:09 Phosphorus 5.7 mg/dL (2.5-4.9) H 07/16/20 05:09 Magnesium 2.0 mg/dL (1.8-2.4) D 07/16/20 05:09 Total Bilirubin 0.4 mg/dL (0.2-1.0) 07/16/20 05:09 AST 34 U/L (15-37) 07/16/20 05:09 ALT 18 U/L (12-78) 07/16/20 05:09 Alkaline Phosphatase 86 U/L (45-117) 07/16/20 05:09 Home Medications: Atorvastatin Calcium [Lipitor*] 20 mg PO BEDTIME 07/16/20 Calcium Carbonate [Tums Regular*] 1,000 mg PO AC 07/16/20 Cyanocobalamin [Vitamin B-12*] 1,000 mcg PO DAILY 07/16/20 Doxazosin [Cardura*] 2 mg PO BEDTIME 07/16/20 Folic Acid 1 mg PO DAILY 07/16/20 Gabapentin 300 mg PO BID 07/16/20 Omeprazole [Prilosec] 40 mg PO DAILY 07/16/20 Pantoprazole Sodium [Protonix] 40 mg PO DAILY 07/16/20 Sevelamer Carbonate [Renvela*] 800 mg PO TIDWM 07/16/20 Tamsulosin [Flomax*] 0.4 mg PO BEDTIME 07/16/20 Thiamine HCl 100 mg PO DAILY 07/16/20 Zinc Sulfate [Zinc Sulfate*] 220 mg PO DAILY 07/16/20 carvediloL [Coreg*] 25 mg PO BID 07/16/20 Patient Discharge Instructions: no changes made to home medications. resume dialysis as scheduled ([id number]). Next appointment is tomorrow. Diet: Renal Activity: Ad reta Followup: NONE,NONE [Primary Care Provider] - Time spent managing pt's care (in minutes): 35
[2020-07-16] MEDS ORDERED: ACETAMINOPHEN 500 MG TAB PO ONE (16:40)
[2020-07-16] MEDS ORDERED: HEPARIN 5000 UNIT/ML 1 ML VIAL IV PRN (16:43)
[2020-07-16 20:36] VITALS: O2SAT 96
[2020-07-16 20:44] VITALS: BP 133/72
[2020-07-16 20:55] VITALS: TEMP 98
== END 2020-07-16 21:05 | disposition home or self-care (01) | DRG 682 ==
LOC: ER 12:50 → ERHOLD 16:28 → 2ND 19:28
PROVIDERS: ADMIT Hospitalist; ATTEND Hospitalist
PROC: 5A1D70Z Performance of Urinary Filtration, Intermittent, Less than 6 Hours Per Day (ICD-10-PCS; principal; 2020-07-16)
DX: I12.0 Hypertensive chronic kidney disease with stage 5 chronic kidney disease or end stage renal disease (principal); N18.6 End stage renal disease; R64 Cachexia; E87.5 Hyperkalemia; K21.9 Gastro-esophageal reflux disease without esophagitis; F17.200 Nicotine dependence, unspecified, uncomplicated; D72.829 Elevated white blood cell count, unspecified; E78.5 Hyperlipidemia, unspecified; D63.8 Anemia in other chronic diseases classified elsewhere; M25.552 Pain in left hip; T38.0X5A Adverse effect of glucocorticoids and synthetic analogues, initial encounter; W18.30XA Fall on same level, unspecified, initial encounter; Z68.24 Body mass index [BMI] 24.0-24.9, adult; Z99.2 Dependence on renal dialysis; Z91.15 Patient's noncompliance with renal dialysis; Z79.891 Long term (current) use of opiate analgesic; Z79.899 Other long term (current) drug therapy; Z79.52 Long term (current) use of systemic steroids; Z59.0 Homelessness; Z86.19 Personal history of other infectious and parasitic diseases; Z20.828 Contact with and (suspected) exposure to other viral communicable diseases
CPT/HCPCS: 36415; 71045; 80048; 80053; 80076; 81003; 83735; 84100; 85025; 85730; 90935; 93005; 94760; 96365; 96372; 96375; 99285; J1644; U0003

== ENCOUNTER 2020-07-20 17:28 | Emergency (ER) | payer OTHER ==
--- OUTSIDE RECORDS SUMMARY | 2020-07-20 17:31 | XMS REPORT | Clinical Summary ---
:[address] [facility] Address [address] [place] [address] Care Team Providers Name Role Phone Unavailable [...] Ames MD 02/22/2020 Lab Requisition Lab after 07/20/2019 Immunizations Name Administration Dates Next Due Influenza [...] procedure are in the results section. after 07/20/2019 Results HEMODIALYSIS INPATIENT (06/03/2020 12:01 PM CDT) [...] Pathologist Sig nature % Neutros 62 % [facility] % Lymphs 27 % [facility] % Monos 5 % [facility] % Myelo 3 (H) 0 - 0 % [facility] % Bands 3 0 - 10 % [facility] # Neutros 7.19 (H) 1.78 - 5.38 K/ul [facility] # Lymphs 3.13 1.32 - 3.57 K/ul [facility] # Monos 0.58 0.30 - 0.82 K/uL [facility] # Myelo 0.35 (H) 0.00 - 0.00 K/uL [facility] # Bands 0.35 0.00 - 0.80 K/uL [facility] Total Counted 100 [facility] nRBC (manual) 1 (H) 0 - 0 /100 WBC [facility] WBC Morphology Normal [facility] Large Platelet Present [facility] Anisocytosis 1+ few [facility] Microcytes 1+ few [facility] Artifact Present [facility] Platelet Conc Decreased [facility] Specimen Blood Narrative Performed At [employer] - Chris Zack [facility] User comments: Slide comments: Performing Organization Address City/State/Zipcode Phone Number [address] [address] CENTER PT/aPTT (06/03/2020 4:07 AM CDT)Only the most recent of12 resultswithin the time period is included. Pathologist Sig nature Protime 14.1 11.9 - 14.2 seconds [facility] INR 1.12 <=5.90 [facility] PTT 38.0 (H) 22.5 - 36.0 seconds [facility] Specimen Blood Narrative Performed At Effective 01/16/2019: PT Reference Range [facility] Change New: 11.9-14.2 Previous: 11.7-14.7 RECOMMENDED COUMADIN/WARFARIN INR THERAPY RANGES STANDARD DOSE: 2.0-3.0 Includes: PROPHYLAXIS for venous thrombosis, systemic embolization; TREATMENT for venous thrombosis and/or pulmonary embolus. HIGH RISK: Target INR is 2.5-3.5 for patients wiht mechanical heart valves. Performing Organization Address City/State/Zipcode Phone Number [address] [address] CENTER Calcium, Ionized (06/03/2020 4:07 AM CDT)Only the most recent of4 resultswithin the time period is included. Pathologist Sig nature Calcium, Ion 1.17 1.12 - 1.27 mmol/L [facility] pH, Blood 7.44 [facility] Specimen Blood Performing Organization Address City/State/Zipcode Phone Number [facility] [address] [place] [address] CENTER CBC with platelet count + automated diff (06/03/2020 4:07 AM CDT)Only the most recent of13 resultswithin the time period is included. Pathologist Sig nature WBC 11.6 (H) 3.5 - 10.5 K/L [facility] RBC 2.46 (L) 4.63 - 6.08 M/L [facility] Hemoglobin 7.9 (L) 13.7 - 17.5 GM/DL [facility] Hematocrit 23.2 (L) 40.1 - 51.0 % [facility] MCV 94.3 (H) 79.0 - 92.2 fL [facility] MCH 32.1 25.7 - 32.2 pg [facility] MCHC 34.1 32.3 - 36.5 GM/DL [facility] RDW 15.9 (H) 11.6 - 14.4 % [facility] Platelets 79 (L) 150 - 450 K/CU MM [facility] MPV 10.8 9.4 - 12.4 fL [facility] nRBC 1 (H) 0 - 0 /100 WBC [facility] Specimen Blood Performing Organization Address City/State/Zipcode Phone Number [facility] [address] [place] [address] CENTER Phosphorus (06/03/2020 4:07 AM CDT)Only the most recent of7 resultswithin the time period is included. Pathologist Sig nature Phosphorus 4.3Comment: 2.3 - 4.7 mg/dL [facility] Specimen slightly [facility] Specimen Blood Narrative Performed At [employer] - BONILLA [facility] Performing Organization Address [facility]/Zipcode Phone Number [facility] [address] [place] [address] CENTER Magnesium (06/03/2020 4:07 AM CDT)Only the most recent of12 resultswithin the time period is included. Pathologist Sig nature Magnesium 2.0Comment: Specimen 1.6 - 2.6 mg/dL [facility] hemolyFormerly [facility] Specimen Blood Narrative Performed At [employer] ID - [facility] Performing Organization Address [facility] Phone Number [address] [address] [place] Hepatic function panel (06/03/2020 4:07 AM CDT)Only the most recent of12 resultswithin the time period is included. Protein, Total 6.5Comment: 6.0 - 8.3 [facility] Specimen slightly gm/dL [facility] Albumin 3.3 (L)Comment: 3.5 - 5.0 [facility] Specimen slightly g/dL [facility] Total Bilirubin 0.3Comment: 0.2 - 1.2 [facility] Specimen slightly mg/dL [facility] Bilirubin, Direct 0.1Comment: 0.1 - 0.5 [facility] Specimen slightly mg/dL [facility] Alkaline 71 40 - 150 U/L [facility] Phosphatase [facility] AST 42 (H)Comment: 5 - 34 U/L [facility] Specimen slightly [facility] ALT 14Comment: 6 - 55 U/L [facility] Specimen slightly [facility] Specimen Blood Narrative Performed At [employer] ID - BONILLA M [facility] Performing Organization Address City/State/Zipcode Phone Number [facility] [address] [place] [address] CENTER Comprehensive metabolic panel (06/03/2020 4:07 AM CDT)Only the most recent of4 resultswithin the time period is included. Protein, Total 6.5Comment: 6.0 - 8.3 [facility] Specimen slightly gm/dL [facility] Albumin 3.3 (L)Comment: 3.5 - 5.0 [facility] Specimen slightly g/dL [facility] Alkaline 71 40 - 150 U/L [facility] Phosphatase [facility] Total Bilirubin 0.3Comment: 0.2 - 1.2 [facility] Specimen slightly mg/dL [facility] Sodium 134 (L) 136 - 145 [facility] meq/L [facility] Potassium 5.1Comment: 3.5 - 5.1 [facility] Specimen slightly meq/L [facility] Chloride 96 (L) 98 - 107 [facility] meq/L [facility] CO2 24 22 - 29 meq/L [facility] BUN 60 (H) 7 - 21 mg/dL [facility] Creatinine 9.02 (H)Comment: 0.57 - 1.25 [facility] Specimen slightly mg/dL [facility] Glucose 89 70 - 105 [facility] mg/dL [facility] Calcium 9.2 8.4 - 10.2 [facility] mg/dL [facility] AST 42 (H)Comment: 5 - 34 U/L [facility] Specimen [facility] ALT 14Comment: 6 - 55 U/L [facility] EGFR 6Comment: mL/min/1.73 [facility] ESTIMATED GFR IS sq [facility] NOT ACCURATE [facility]ENTER CREATININE CLEARANCE IN PREDICTING GLOMERULAR FILTRATION RATE. ESTIMATED GFR IS NOT APPLICABLE FOR DIALYSIS PATIENTS. Specimen Blood Narrative Performed At [employer] ID - BONILLA Moore [facility] Performing Organization Address City/[facility]/Zipcode Phone Number [facility] [address] [place] [address] CENTER Prepare Leuko-Red RBC (06/02/2020 11:54 PM CDT)Only the most recent of3 results within the time period is included. Pathologist Sig nature CROSSMATCH COMPATIBLE SAFETRACE TX Unit ABO O Pos SAFETRACE TX UNIT NUMBER [id number] SAFETRACE TX Status TX_TIMEINCHART SAFETRACE TX Blood Bank Product RED BLOOD CELLS SAFETRACE TX PRODUCT CODE [id number] SAFETRACE [place] Specimen Other Performing Organization Address [facility] Phone Number [facility] [place] Basic Metabolic Panel (06/02/2020 3:56 AM CDT)Only the most recent of12 results within the time period is included. Sodium 135 (L) 136 - 145 meq/L [facility] Potassium 4.7 3.5 - 5.1 meq/L [facility] Chloride 98 98 - 107 meq/L [facility] CO2 25 22 - 29 meq/L [facility] BUN 36 (H) 7 - 21 mg/dL [facility] Creatinine 6.44 (H) 0.57 - 1.25 [facility] mg/dL [facility] Glucose 96 70 - 105 mg/dL [facility] Calcium 8.6 8.4 - 10.2 [facility] mg/dL [facility] EGFR 9Comment: ESTIMATED mL/min/1.73 sq [facility] GFR IS NOT [facility] ACCURATE [place] CREATININE CLEARANCE IN PREDICTING GLOMERULAR FILTRATION RATE. ESTIMATED GFR IS NOT APPLICABLE FOR DIALYSIS PATIENTS. Specimen Blood Narrative Performed At [employer] - MARQUIS [facility] Performing Organization Address City/[facility] Phone Number [address] [phone] CENTER Transfuse Leuko-Red RBC (06/01/2020 10:33 PM CDT)Only the most recent of3 resultswithin the time period is included.POC-Glucose meter (06/01/2020 10:11 PM CDT) POC-Glucose Meter 99 70 - 110 mg/dL [facility] Comment: [facility] MEDICAL : TESTED AT [address], [address] CENTER : [employer]Prop Making Supervisor ID = [id number] for Jerson Morales Specimen Blood Performing Organization Address [facility]/Zipcode Phone Number [address] [address] CENTER Hepatitis B surface antibody (06/01/2020 7:23 PM CDT) Pathologist Sig nature Hep B S Ab 27.2 (H) <8.0 mIU/mL [facility] Specimen Blood Narrative Performed At [employer] ID - DB [facility] Performing Organization Address City/[facility]/Zipcode Phone Number [address] [address] CENTER Type and screen, automated (05/31/2020 9:50 AM CDT)Only the most recent of2 resultswithin the time period is included. Pathologist Sig nature ABO/RH AUTOMATED O POSITIVE [facility] (BEAKER) [facility] Ab Scrn NEGATIVE [facility] Specimen Blood Performing Organization Address [facility]/Zipcode Phone Number [address] [address] Hemoglobin and hematocrit (05/31/2020 9:50 AM CDT)Only the most recent of6 resultswithin the time period is included. Pathologist Sig nature Hemoglobin 7.2 (L) 13.7 - 17.5 GM/DL [facility] Hematocrit 21.2 (L) 40.1 - 51.0 % [facility] Specimen Blood Narrative Performed At [employer] ID - [id number] [facility] Performing Organization Address [facility] Phone Number [facility] [address] [place] [address] [place] Hepatitis panel, acute (05/28/2020 2:19 PM CDT) Pathologist Sig nature Hep A IgM Nonreactive Nonreactive [facility] Hep B C IgM Nonreactive Nonreactive [facility] Hepatitis C Ab Reactive (A) Nonreactive [facility] HBsAg Screen Nonreactive Nonreactive [facility] Specimen Blood Narrative Performed At [employer] - DB [facility] Performing Organization Address [facility] Phone Number [address] [address] CENTER D-dimer (05/28/2020 3:59 AM CDT)Only the most recent of3 resultswithin the time period is included. Pathologist Sig nature D-Dimer, Quant 3.35 (H) <0.50 MG/L FEU [facility] Specimen Blood Narrative Performed At Intended Use: The D-Dimer Assay can be used [facility] to aid in the diagnosis of Deep Vein Thrombosis (DVT) and Pulmonary Embolism Disease (PED). In patients with low pre-test probability, various studies concerning STA Liatest D-dimer test have reported that with a cutoff value of 0.50 MG/L FEU, the Negative Predictive Value (NPV) regarding the exclusion of thrombosis is within 95-100% range. Performing Organization Address City/[facility] Phone Number [facility] [address] [place] [address] [place] REPORT OF PROCEDURE - ENDOSCOPY URL (05/27/2020 8:30 AM CDT) Narrative Performed At This result has an attachment that is no t available. Tissue Exam (05/27/2020 8:20 AM CDT) Case Report Surgical Pathology Report Case: [id number] [facility] Authorizing Provider: Myrna Tijerina MD Collected: 05/27/2020 08:20 AM [facility] Ordering Location: [address] Received: 05/27/2020 02:50 PM [facility]ICAL [facility] SERVICE Pathologist: Rosa Cisneros MD Specimens: A) - Biopsy, G astric, random biopsies R/O H. pylori B) - Biop sy, Gastroesophageal Junction, random biopsies R/O Islas's DIAGNOSIS A. STOMACH, ENDOSCOPIC MUCOSAL BIOPSIES C 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 GASTROESOPHAGEAL JUNCTION, ENDOSCOPIC MUCOSAL BIOPS IES - SQUAMOCOLUMNAR MUCOSA WITH ACTIVE CARDITIS - NEGATIVE FOR SPECIALIZED ISLAS METAPLASIA Signing Pathologist Direct Phone Line: COMMENT . [facility] CPT Code(s) 93314 x2, 21798 [facility] CLINICAL HISTORY Anemia [facility] SPECIMEN SOURCE A. Random gastric biopsy, rule out H. Pylori [facility] B. Random GE junction biopsy, rule out Islas's [facility] GROSS DESCRIPTION A. Received in formalin labe led with the patient's name, medical record number and "gastric biopsy" are two pieces of rees-white mucosa- covered tissue that measure 0.5 x 0.3 x 0.2 cm in aggregate. The sp [facility] ecimen is submitted in toto following filtration in ca ssette A1. [facility] B. Received in formalin labe led with [...] inflammation is present. The oxyntic mucosa s [facility] DESCRIPTION hows no significant inflamma tion. Warthin stain for Helicobacter pylori is negative. There is no dysplasia or carcinoma. [facility] [place] B. Section shows gastroesoph ageal junctional mucosa and squamous (eosphageal) mucosa. The squamous (esophageal) component of GE junctional mucosa shows intercellular edema and elongated vascular papilla e and the columnar mucosa sh ows chronic inflammation with rare neutrophils. No goblet cell metaplasia is seen. SPECIAL STUDIES The interpretation of this c ase included the use of immunohistochemistry or special stains. [facility] Control Slides Examined: In -house known positive controls were evaluated along with the test tissue. These control slides run alongside of the patients sample show appropriate staining. [facility] antony and negative controls when available are evaluated Immunohistochemistry technic al testing was performed at [facility], Pathology Laboratory where it was developed and its performance characteristics were determined. It has not be en cleared or approved by [facility] U.S. Food and Drug Administration. The FDA has determined that such clearance or approval is not necessary. The test is used for clinical purposes. It should not be regarde d as investigational or for research. This laboratory is certified under the Clinical Laboratory Improvement Amendments of 1988 (CLIA-88) as qualified to perform high complexity clinical laboratory testing. Gross assessment [facility] was performed at [facility] Pathology, [address] [place] [id number], Technical [facility] component was [facility] performed at Pathology, [address] [place] [address], Professional [facility] component was [facility] performed at Pathology, [address] [place] [id number], Specimen Tissue - Gastric biopsy sample (specimen ) Tissue specimen (specimen) - Biopsy, Gas troesophageal Junction Performing Organization Address City/State/Zipcode Phone Number [facility] [address] [place] [address] CENTER Manual Differential (05/27/2020 3:40 AM CDT) % Neutros (manual) 63 % [facility] % Lymphs (manual) 17 % [facility] % Monos (manual) 4 % [facility] % Eos (manual) 3 % [facility] % Baso (manual) 1 % [facility] % Metamyelo (manual) 3 (H) 0 - 0 % [facility] % Bands (manual) 3 0 - 10 % [facility] % Atypical Lymphs 6 (H) 0 - 0 % [facility] # Neutros (manual) 7.12 1.80 - 8.00 [facility] # Lymphs (manual) 1.92 1.48 - 4.50 [facility] # Monos (manual) 0.45 0.00 - 1.30 [facility] # Eos (manual) 0.34 0.00 - 0.50 [facility] # Baso (manual) 0.11 0.00 - 0.20 [facility] # Metamyelo (manual) 0.34 (H) 0.00 - 0.00 [facility] # Bands (manual) 0.3 0.0 - 0.8 KL [facility] # Atypical Lymphs 0.68 (H) 0.00 - 0.00 [facility] Total Counted 100 [facility] Bands plus Segmented 7.46 [facility] nRBC (manual) 1 (H) 0 - 0 /100 WBC [facility] WBC Morphology Normal [facility] Platelet Morphology Normal [facility] Anisocytosis 1+ few [facility] Ovalocytes 1+ few [facility] Specimen Blood Performing Organization Address City/[facility] Phone Number [address] [address] CENTER TRANSFUSION SERVICE REPORT - SCAN (05/26/2020 6:21 PM CDT)Only the most recent of2 resultswithin the time period is included. Narrative Performed At This result has an attachment that is no t available. Hepatitis C PCR, Quantitative (05/26/2020 12:26 PM CDT) HCV PCR, HCV RNA not HCV RNA not [facility] Quantitative detected detected [facility] Specimen Blood Narrative Performed At This test uses a Real-Time Polymerase Chain [facility] Reaction (RT-PCR) methodology and was performed using [employer] Ampliprep/[employer] TaqMan HCV test kit version 2.0 ([employer]). Reportable range for this assay is 15 - 100,000,000 IU per mL (1.18 - 8.00 Log IU/mL). Performing Organization Address [facility] Phone Number [address] [address] CENTER TSH/Free T4 If Indicated (05/25/2020 7:14 PM CDT) Pathologist Sig nature TSH 3.581 0.350 - 4.940 uIU/mL [facility] Specimen Blood Narrative Performed At [employer] - JR F [facility] Performing Organization Address City/[facility]/Zipcode Phone Number [address] [address] CENTER Prothrombin time/INR (05/25/2020 11:42 AM CDT) Pathologist Sig nature Protime 14.6 (H) 11.9 - 14.2 seconds [facility] INR 1.17 <=5.90 [facility] Specimen Blood Narrative Performed At Effective 01/16/2019: PT Reference Range [facility] Change New: 11.9-14.2 Previous: 11.7-14.7 RECOMMENDED COUMADIN/WARFARIN INR THERAPY RANGES STANDARD DOSE: 2.0-3.0 Includes: PROPHYLAXIS for venous thrombosis, systemic embolization; TREATMENT for venous thrombosis and/or pulmonary embolus. HIGH RISK: Target INR is 2.5-3.5 for patients wiht mechanical heart valves. Performing Organization Address City/[facility] Phone Number [address] [address] CENTER Lactate dehydrogenase (LDH) (05/25/2020 11:42 AM CDT) Pathologist Sig nature LDH 341 (H) 125 - 220 U/L [facility] Specimen Blood Narrative Performed At [employer] ID - JR Crump [facility] Performing Organization Address City/[facility] Phone Number [address] [address] CENTER Peripheral Blood Smear - Path Review (05/25/2020 3:42 AM CDT) Pathologist Review Macrocytic anemia, [facility] anisopoikilocytosis, MEDICAL CENTER with rare schistocytes (0.8 per HPF). WBCs with mild left shift, including occasional myeloid precursors, no blasts seen. Few hypersegmented neutrophils. Thrombocytopenia with unremarkable morphology. Pathologist: Maddie Leon [facility] Bebeto Dsouza [facility] Specimen Blood Performing Organization Address City/[facility] Phone Number [address] [address] CENTER Troponin I (05/25/2020 3:42 AM CDT)Only the most recent of5 resultswithin the time period is included. Pathologist Sig nature Troponin I 0.46 (HH) 0.00 - 0.03 ng/mL [facility] Specimen Blood Narrative Performed At Troponin I (TnI) levels must be interpreted [facility] in the context of the presenting symptoms and the clinical findings. Elevated TnI levels indicate myocardial damage, but are not specific for ischemic heart disease. Elevated TnI levels are seen in patients with other cardiac conditions (including myocarditis and congestive heart failure), and slight TnI elevations occur in patients with other conditions, including sepsis, renal failure, acidosis, acute neurological disease, and persistent tachyarrhythmia. [employer] ID - DB Performing Organization Address [facility] Phone Number [address] [address] CENTER Lactic acid, venous (05/25/2020 3:42 AM CDT)Only the most recent of3 results within the time period is included. Pathologist Sig nature Lactate, Venous 0.42 (L) 0.50 - 2.20 [facility] mmol/L [facility] Specimen Blood Narrative Performed At [employer] ID - DB [facility] Performing Organization Address [facility] [place] Phone Number [address] [address] CENTER Reticulocyte count (05/25/2020 3:42 AM CDT) Pathologist Sig nature % Retic 1.5 0.5 - 1.8 % [facility] Specimen Blood Narrative Performed At [employer] ID - [id number] [facility] Performing Organization Address [facility] Phone Number [address] [address] CENTER Iron, TIBC, % sat. (without ferritin) (05/25/2020 3:41 AM CDT) Pathologist Sig nature Iron 118.0 40.0 - 160.0 [facility] ug/dL [facility] TIBC 170 (L) 250 - 450 ug/dL [facility] Iron % Saturation 69 (H) 20 - 55 % [facility] Specimen Blood Narrative Performed At [employer] ID - MARQUIS [facility] Performing Organization Address City/[facility]/Zipcode Phone Number [facility] [address] [place], [place] [phone] CENTER Haptoglobin (05/25/2020 3:41 AM CDT) Pathologist Sig nature Haptoglobin 172 14 - 258 mg/dL [facility] Specimen Blood Narrative Performed At [employer] ID - JR Crump [facility] Performing Organization Address City/[facility]/Zipcode Phone Number [facility] [address] [place] [address] CENTER Ferritin (05/25/2020 3:41 AM CDT) Pathologist Sig nature Ferritin 10,294.32 (H) 5.00 - 275.00 [facility] ng/mL [facility] Specimen Blood Narrative Performed At [employer] ID - MAR[place] [facility] Performing Organization Address City/[facility] Phone Number [facility] [address] [place] [phone] [place] XR chest 1 view portable / bedside [...] 4:42:11 Performing Organization Address City/State/Zipcode Phone Number [employer] US testicular (scrotum) (05/25/2020 1:24 AM CDT) Specimen Narrative Performed At FINAL REPORT [employer] TECHNIQUE: Grayscale, color Doppler, and spectral Doppler [...] Pathologist Sig nature HBsAg Screen Nonreactive Nonreactive [facility] Specimen Blood Narrative Performed At Specimen is considered negative for HBsAg. [facility] Performing Organization Address City/State/Zipcode Phone Number [facility] [address] [place] [address] CENTER Drug Test, General Toxicology, Urine (05/24/2020 6:40 PM CDT) Acetone(Quest) None Detected [facility] Methanol([facility]) None Detected [facility] Drug Test,Genrl see note [facility] Tox,U Comment: [facility]POR[facility] The following compounds were detected: Cotinine (Nicotine Metabolite) Morphine Acetaminophen Hydromorphone Hydrocodone Benzoylecgonine (Cocaine Metabolite) Cyclobenzaprine For a list of compounds and limits of detection go to: http://education.FindYogi/faq/VYF099 ISOPROPANOL None Detected [facility] ETHANOL None Detected [facility] Comment: INC[facility]POR[facility] Volatile Limit of Detectio n: 5 mg/dL This test was developed and its analytical performance characteristics have been determined by [employer] [place], [place]. It has not been cleared or approved by the U.S. Food and Drug Administration. This assay has been validated pursuant to the CLIA regulations and is used for clinical purposes. Specimen Urine Narrative Performed At Performing Lab [facility] [address] [facility], [address] [facility] [place] [address] Mckenna Lopez MD, PhD Performing Organization Address City/[facility]/Zipcode Phone Number [facility] [place] [address] [facility] [address] [facility] B-type Natriuretic Factor (BNP) (05/24/2020 5:32 PM CDT)Only the most recent of 2 resultswithin the time period is included. Pathologist Sig nature BNP 202 (H) 0 - 100 pg/mL [facility] Specimen Blood Narrative Performed At [employer] ID - NATASHA [facility] Performing Organization Address City/State/Zipcode Phone Number [facility] [address] [place] [address] CENTER 2D Echo W/Doppler(CW/PW/Color) (05/24/2020 9:17 AM CDT) Pathologist Sig nature Ejection Fraction [facility] ECHO HEARTLAB [facility] Specimen Narrative Performed At Transthoracic Echocardiography Report (T TE) [facility] ECHO HEARTLAB [facility] Demographics Patient Name THIERRY PADILLA Date of Study 05/24/2020 KYLIE Gender Male Visit Number [id number] Race Unknown Room Number 7217 Number Date of 1965 Referring Physician Age 55 year(s) 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 Nieves Lopes 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 Owen Valdivia Interpreting Renato barr Physician Procedure [...] Study 05/24/2020 KYLIE Gender Male Visit Number [id number] Race Unknown Room N [facility] 7217 Number Date of 1965 Referr ing Physician Age 55 year(s) 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 Moses 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 Owen Valdivia Intermckenna reting Greg Roche MD [...] CDT) Pathologist Sig nature ABO Grouping O [facility] DICAL [place] Rh Factor POS [facility] Specimen Blood Performing Organization Address City/[facility]/Zipcode Phone Number [address] [address] Vitamin B12 and Folate (05/24/2020 3:48 AM CDT) Pathologist Sig [facility] Vitamin B12 237 213 - 816 pg/mL [facility] Folate 4.00 (L) >=7.00 ng/mL [facility] Specimen Blood Narrative Performed At [employer] ID - MARQUIS [facility] Performing Organization Address City/[facility] Phone Number [address] [address] [place] HIV-1 Antigen with HIV-1/2 Antibody (05/24/2020 3:48 AM CDT) Pathologist Sig [facility] HIV-1 Antigen with Nonreactive Nonreactive [facility] HIV 1&2 Antibody [facility] Specimen Blood Performing Organization Address City/[facility] Phone Number [address] [address] [place] Hemoglobin A1c (05/24/2020 3:48 AM CDT) Pathologist Sig [facility] Hemoglobin A1C 5.8 4.3 - 6.1 % [facility] Specimen Blood Performing Organization Address City/[facility] Phone Number [address] [address] CENTER Blood Culture - Routine (Right Venipuncture) (05/24/2020 3:34 AM CDT)Only the most recent of2 resultswithin the time period is included. Pathologist Sig nature Result No growth in 5 days [facility] Specimen Blood - Entire right upper arm (body str ucture) Performing Organization Address City/State/Zipcode Phone Number [facility] [address] [place] [address] CENTER SARS-CoV2/RT-PCR (Symptomatic ONLY) (05/24/2020 2:33 AM CDT)Only the most recent of2 resultswithin the time period is included. SARS-COV2/RT-PCR Negative Not Detected, [facility] Negative, See [facility] external report CENTER for linked test [facility]-COV-2 [facility] Specimen Other - Nasopharyngeal wall structure (b alicia structure) Narrative Performed At Negative results do not preclude SARS-CoV-2 [facility] infection and should not be used as [...] the Act. Fact Sheet for Healthcare Providers: https://www.Glanse.GigSocial/Documents/Xpert%20Xpre ss%20SARS%20CoV-2/Fact%20Sheets/302-0695%20SAR S-COV-2%20HEALTHCARE%20PROVIDERS%20FACT%20SHEE T.pdf Fact Sheet for Healthcare Patients: https://www.[employer]/Documents/Xpert%20Xpre ss%20SARS%20CoV-2/Fact%20Sheets/302-3801%20SAR S-COV-2%20PATIENT%20FACT%20SHEET.pdf Performing Laboratory: [facility] [address] [place] [address]. [place] [address] Performing Organization Address City/[facility]/Zipcode Phone Number [facility] [address] [place], [place] [phone] [place] Blood gas, venous (05/24/2020 1:28 AM CDT) Pathologist Sig nature pH, Raquel 7.27 (L) 7.32 - 7.42 [facility] pCO2, Raquel 26 (L) 41 - 51 mmHg [facility] pO2, Raquel 63 (H) 25 - 40 mmHg [facility] O2 Sat, Raquel 89.7 (H) 40.0 - 70.0 % [facility] HCO3, Raquel 12 (L) 21 - 29 mmol/L [facility] Base Excess, Raquel -14.0 (L) -2.0 - 3.0 [facility] mmol/L [facility] Patient Temperature 37.0 C [facility] FIO2 100.0 % [facility] Specimen Blood Performing Organization Address City/[facility] Phone Number [facility] [address] [place] [address] [place] EKG-SCANNED (05/24/2020) Narrative Performed At This result has an attachment that is no t available. Ordered by an unspecified provider. after 07/20/2019 Advance Directives For more information, please contact: [phone] Code Status Date Activated Date Inactivated Comments Full Code 05/24/2020 1:02 AM 06/03/2020 4:31 PM This code status was determined by: Patient
--- OUTSIDE RECORDS SUMMARY | 2020-07-20 17:36 | XMS REPORT | Continuity of Care Document ---
:1965 Author Organization [facility] t Address [address] [place] [address] Care Team Providers Name Role Phone Santy Cardona MD, Kwaku Attending Clinician [phone] Cristopher LOWERY, Donna Attending Clinician Davdi LOWERY, P. Attending Clinician Akilah Matthews MD Attending Clinician Shea Luciano MD Attending Clinician Akbar Monsalve MD Attending Clinician Unavailable Ariana LOWERY, Yaakov Attending Clinician KWAKU MIGUEL Attending Clinician Unavailable Verónica Delgadillo DO Attending Clinician KWAKU MIGUEL Admitting Clinician Unavailable Payers Payer Name Policy Type Policy Effective Date Expiration Date Sour ce Number MEDICAREMEDICARE A [id number] 2020 ANALILIA [place] [id number] 2019- 00:00:00 - Medical PresentMedicare Center MEDICAIDMEDICAID OF [id number] 2020 ANALILIA [place] [id number] 00:00:00 - Medical 0-PresentMedicaid Center Problems Condition Condition Condition Status Onset Resolution Last Treating Co mments Source Name Details Category Date Date Treatment Clinician Date Hyperkalem Hyperkalem Disease Active 2019-[address] [facility] PINA (acute PINA (acute Disease Active [facility] Allergies, Adverse Reactions, Alerts Allergy Allergy Status Severity Reaction(s) Onset Inactive Treating Comm ents Source Name Type Date Date Clinician Gabapent Drug Active 2019-[address] [facility] Medical 00 [place] Social History Social Habit Start Date Stop Date Quantity Comments Source Sex Assigned At [facility] Smoking Status Start Date Stop Date Source Former smoker 2020-05-27 00:00:00 2020-05-27 00:00:[address] [facility] Medications Ordered Filled Start Stop [...] Name Influenza Four-QIV 2020-05-[address] [facility] PF 3YR+ 00:00:00 Medical Center Vital Signs Vital Name Observation Time Observation Value Comments Source Systolic blood 2020-06-03 11:45:00 129 mm[Hg] [facility] Diastolic blood 2020-06-03 11:45:00 81 mm[Hg] [facility] Heart rate 2020-06-03 11:45:00 80 /min [facility] Body temperature 2020-06-03 11:45:00 36.72 Gissell [facility] Respiratory rate 2020-06-03 11:45:00 19 /min [facility] Oxygen saturation in 2020-06-03 11:45:00 97 /min [facility] Arterial blood by Medical Ce nter Pulse oximetry Body weight 2020-06-03 04:52:00 69.9 kg [facility] BMI 2020-06-03 04:52:00 24.88 kg/m2 [facility] Body height 2020-05-24 00:30:00 167.6 cm [facility] Procedures Procedure Date / Time Performed Performing Clinician Sourc e HEMODIALYSIS INPATIENT 2020-06-03 12:01:00 Marlo Hernandez [facility] MAGNESIUM 2020-06-03 04:07:00 Sonido Schofield [facility] PT/APTT 2020-06-03 04:07:00 Sonido Schofield [facility] HEPATIC FUNCTION PANEL 2020-06-03 04:07:00 Serenio, [facility] CALCIUM, IONIZED 2020-06-03 04:07:00 [facility] COMPREHENSIVE METABOLIC 2020-06-03 04:07:00 Hernandez [facility] PHOSPHORUS 2020-06-03 04:07:00 [facility] CBC W/PLT COUNT & AUTO 2020-06-03 04:07:00 Kanwal [facility] (CELLAVISION MANUAL DIFF) 2020-06-03 04:07:00 Sonido Schofield [facility] PREPARE LEUKO-REDUCED RBC 2020-06-02 23:54:00 Delia Matthews [facility] BASIC METABOLIC PANEL (7) 2020-06-02 03:56:00 Sonido Schofield [facility] MAGNESIUM 2020-06-02 03:56:00 Kanwal [facility] PT/APTT 2020-06-02 03:56:00 Kanwal [facility] HEPATIC FUNCTION PANEL 2020-06-02 03:56:[address] [facility] CBC W/PLT COUNT & AUTO 2020-06-02 03:56:00 Kanwal Sonido [facility] (CELLAVISION MANUAL DIFF) 2020-06-02 03:56:00 Sonido Schofield [facility] TRANSFUSE LEUKO-REDUCED 2020-06-01 22:33:[address] [facility] RED BLOOD CELLS [facility] POCT-GLUCOSE METER 2020-06-01 22:11:00 Delia Matthews [facility] HEPATITIS B SURFACE 2020-06-01 19:23:00 David [facility] - ANTIBODY [facility] BASIC METABOLIC PANEL (7) 2020-06-01 04:32:00 Sonido Schofield [facility] MAGNESIUM 2020-06-01 04:32:00 [facility] 2020-06-01 04:32[facility] 2020-06-01 04:32:[address] [facility] CBC W/PLT COUNT & AUTO 2020-06-01 04:32:00 [facility] (CELLAVISION MANUAL DIFF) 2020-06-01 04:32:00 [facility] HEMOGLOBIN AND HEMATOCRIT 2020-05-31 09:50:00 Cassie [facility] TYPE AND SCREEN, 2020-05-31 09:50:00 [facility] MET[facility]OL[facility] PAN[facility] (7) 2020-05-31 05:34:00 Kanwal [facility] MAGNESIUM 2020-05-31 05:34:00 [facility] PT/APTT 2020-05-31 05:34:00 [facility] HEPATIC FUNCTION PANEL 2020-05-31 05:34:[address] [facility] CBC W/PLT COUNT & AUTO 2020-05-31 05:34:00 Kanwal [facility] (CELLAVISION MANUAL DIFF) 2020-05-31 05:34:00 [facility] BASIC METABOLIC PANEL (7) 2020-05-30 04:39:00 Sergema [facility] MAGNESIUM 2020-05-30 04:39:00 [facility] PT[facility]TT 2020-05-30 04:39:00 [facility] HEPATIC FUNCTION PANEL 2020-05-30 04:39:[address] [facility] CBC W/PLT COUNT & AUTO 2020-05-30 04:39:00 Serfelixbelgica [facility] (CELLAVISION MANUAL DIFF) 2020-05-30 04:39:00 Sergema [facility] BASIC METABOLIC PANEL (7) 2020-05-29 04:50:00 Sergema [facility] MAGNESIUM 2020-05-29 04:50:00 Serenibelgica [facility] PT/APTT 2020-05-29 04:50:00 Sergema [facility] HEPATIC FUNCTION PANEL 2020-05-29 04:50:[address] [facility] PHOSPHORUS 2020-05-29 04:50:00 Christofer Concepcion [facility] CBC W/PLT COUNT & AUTO 2020-05-29 04:50:00 Sergema [facility] (CELLAVISION MANUAL DIFF) 2020-05-29 04:50:00 Sergmea [facility] HEPATITIS PANEL, ACUTE 2020-05-28 14:19:00 Delia Matthews [facility] D-DIMER 2020-05-28 03:59:00 Delia Matthews [facility] BASIC METABOLIC PANEL (7) 2020-05-28 03:59:00 Sergema [facility] MAGNESIUM 2020-05-28 03:59:00 Serenibelgica [facility] PT/APTT 2020-05-28 03:59:00 Serenibeglica [facility] HEPATIC FUNCTION PANEL 2020-05-28 03:59:[address] [facility] COMPREHENSIVE METABOLIC 2020-05-28 03:59:00 Delia Matthews [facility] CBC W/PLT COUNT & AUTO 2020-05-28 03:59:00 Sonido Schofield [facility] DIFFERENTIAL [facility] (CELLAVISION MANUAL DIFF) 2020-05-28 03:59:00 Sonido Schofield [facility] REPORT OF PROCEDURE - 2020-05-27 08:30:04 Myrna Monsalve [facility] ENDOSCOPY [facility] TISSUE EXAM 2020-05-27 08:20:00 [facility]OS[facility],BIOPSY 2020-05-27 07:59:[address] [facility] BASIC METABOLIC PANEL (7) 2020-05-27 03:40:00 Sonido Schofield [facility] MAGNESIUM 2020-05-27 03:40:00 Kanwal Sonido [facility] PT/APTT 2020-05-27 03:40:00 Kanwal [facility] HEPATIC FUNCTION PANEL 2020-05-27 03:40:[address] [facility] CBC W/PLT COUNT & AUTO 2020-05-27 03:40:00 Sonido Schofield [facility] DIFFERENTIAL [facility] (MANUAL DIFFERENTIAL) 2020-05-27 03:40:00 Delia Matthews [facility] TRANSFUSION SERVICE 2020-05-26 18:21:41 Provider, Christopher [facility] REPORT - SCAN [facility] HEPATITIS C PCR, 2020-05-26 12:26:00 Vee Hernandez [facility] D-DIMER 2020-05-26 12:26:00 Vee Hernandez [facility] BASIC METABOLIC PANEL (7) 2020-05-26 03:50:00 Sonido Schofield [facility] MAGNESIUM 2020-05-26 03:50:00 SerSonido ribeiro [facility] PHOSPHORUS 2020-05-26 03:50:00 Sergema [facility] PT/APTT 2020-05-26 03:50:00 Kanwal [facility] HEPATIC FUNCTION PANEL 2020-05-26 03:50:[address] [facility] CALCIUM, IONIZED 2020-05-26 03:50:00 Kanwal [facility] COMPREHENSIVE METABOLIC 2020-05-26 03:50:00 Marlo Hernandez [facility] CBC W/PLT COUNT & AUTO 2020-05-26 03:50:00 Kanwal [facility] (CELLAVISION MANUAL DIFF) 2020-05-26 03:50:00 Kanwal [facility] PREPARE LEUKO-REDUCED RBC 2020-05-25 23:54:00 Kanwal [facility] TSH/FREE T4 IF INDICATED 2020-05-25 19:14:00 Vee Hernandez [facility] HEMOGLOBIN AND HEMATOCRIT 2020-05-25 19:14:00 Layo Ley [facility] TRANSFUSION SERVICE 2020-05-25 18:01:32 Christopher Rivas [facility] HEMOGLOBIN AND HEMATOCRIT 2020-05-25 11:42:00 Layo Ley [facility] LACTATE DEHYDROGENASE 2020-05-25 11:42:[address] [place] [address] [facility] (LDH) [facility] PROTHROMBIN TIME/INR 2020-05-25 11:42:00 [place] [facility] D-DIMER 2020-05-25 11:42:00 [place] [facility] CBC W/PLT COUNT & AUTO 2020-05-25 11:42:00 [place] Layo [facility] DIFFERENTIAL [facility] TROPONIN I 2020-05-25 03:42:00 Kanwal [facility] MAGNESIUM 2020-05-25 03:42:00 Sergema [facility] PHOSPHORUS 2020-05-25 03:42:00 Sergema [facility] HEPATIC FUNCTION PANEL 2020-05-25 03:42:[address] [facility] CALCIUM, IONIZED 2020-05-25 03:42:00 Sergema [facility] LACTIC ACID, VENOUS 2020-05-25 03:42:00 Kanwal [facility] COMPREHENSIVE METABOLIC 2020-05-25 03:42:00 [facility] 2020-05-25 03:42:00 [facility] PERIPHERAL BLOOD SMEAR - 2020-05-25 03:42:00 Bala Genao [facility] - PATHOLOGIST REVIEW Medical Cente r CBC W/PLT COUNT & AUTO 2020-05-25 03:42:00 Kanwal [facility] DIFFERENTIAL [facility] (CELLAVISION MANUAL DIFF) 2020-05-25 03:42:00 Kanwal [facility] PT/APTT 2020-05-25 03:41:00 Kanwal [facility] IRON, TIBC, % SAT. 2020-05-25 03:41:00 [facility] (WITHOUT FERRITIN) [facility] 2020-05-25 03:41:00 [facility] HAPTOGLOBIN 2020-05-25 03:41:00 [facility] XR CHEST 1 VIEW 2020-05-25 02:00:00 [facility] - PORTABLE/BEDSIDE [facility] US TESTICULAR (SCROTUM) 2020-05-25 01:24:00 [facility] TRANSFUSE LEUKO-REDUCED 2020-05-25 01:22:54 [facility] BLOOD CELLS [facility] PREPARE LEUKO-REDUCED RBC 2020-05-24 21:55:00 Sonido Schofield [facility] HEMOGLOBIN AND HEMATOCRIT 2020-05-24 20:40:00 José Manuel Leyegan [facility] HEPATITIS B SURFACE 2020-05-24 20:40:00 Marlo Hernandez [facility] DRUG TEST, GENERAL 2020-05-24 18:40:00 José Manuel Leyegan [facility] - TOXICOLOGY, URINE [facility] TROPONIN I 2020-05-24 17:32:00 Kanwal [facility] B-TYPE NATRIURETIC FACTOR 2020-05-24 17:32:[address] [facility] (BNP) [facility] TROPONIN I 2020-05-24 12:30:00 Kanwal [facility] HEMOGLOBIN AND HEMATOCRIT 2020-05-24 12:30:00 Av Layo [facility] BASIC METABOLIC PANEL (7) 2020-05-24 12:30:00 Av [facility] 2D ECHO W/ DOPPLER 2020-05-24 09:17:10 Santy Cardona [facility] (CW/PW/COLOR) [facility] HEMOGLOBIN AND HEMATOCRIT 2020-05-24 08:02:00 Adela Miguel [facility] TROPONIN I 2020-05-24 08:02:00 Kanwal [facility] BASIC METABOLIC PANEL (7) 2020-05-24 08:02:00 Layo Ley [facility] PHOSPHORUS 2020-05-24 08:02:00 Av [facility] TRANSFUSE LEUKO-REDUCED 2020-05-24 07:31:48 Kanwal [facility] RED BLOOD CELLS [facility] LACTIC ACID, VENOUS 2020-05-24 03:57:00 Kanwal [facility] ABORH, MANUAL 2020-05-24 03:57:00 Lionel, Vidhiruma Diaz [facility] CALCIUM, IONIZED 2020-05-24 03:56:00 Sergema [facility] BASIC METABOLIC PANEL (7) 2020-05-24 03:48:00 Kanwal [facility] MAGNESIUM 2020-05-24 03:48:00 Sergema [facility] PHOSPHORUS 2020-05-24 03:48:00 Sergema [facility] PT/APTT 2020-05-24 03:48:00 Kanwal [facility] HEPATIC FUNCTION PANEL 2020-05-24 03:48:[address] [facility] HEMOGLOBIN A1C 2020-05-24 03:48:00 [facility] ANTIGEN WITH 2020-05-24 03:48:00 [facility]2 ANTIBODY [facility] VITAMIN B12 AND FOLATE 2020-05-24 03:48:00 [facility] W/[facility]T COUNT & AUTO 2020-05-24 03:48:00 Kanwal [facility] DIFFERENTIAL [facility] BLOOD CULTURE 2020-05-24 03:34:00 Sergema [facility] PT/APTT 2020-05-24 02:59:00 Sergema [facility] TYPE AND SCREEN, 2020-05-24 02:59:00 Sergema [facility] AUTOMATED [facility] BLOOD CULTURE 2020-05-24 02:58:00 Sergema [facility] SARS-COV2/RT-PCR ([facility] & 2020-05-24 02:33:00 Sergema [facility] - REF LABS) [facility] XR CHEST 1 VIEW 2020-05-24 01:37:00 Kanwal Sonido [facility] - PORTABLE/BEDSIDE [facility] BASIC METABOLIC PANEL (7) 2020-05-24 01:29:00 Kanwal Sonido I [facility] MAGNESIUM 2020-05-24 01:29:[address] [facility] PHOSPHORUS 2020-05-24 01:29:00 [facility] HEPATIC FUNCTION PANEL 2020-05-24 01:29:00 [facility] LACTIC ACID, VENOUS 2020-05-24 01:29:00 [facility] L ukes [facility] TROPONIN I 2020-05-24 01:29:00 [facility] CBC W/PLT COUNT & AUTO 2020-05-24 01:29:00 [facility] DIFFERENTIAL [facility] BLOOD GAS, VENOUS 2020-05-24 01:28:00 [facility] B-TYPE NATRIURETIC FACTOR 2020-05-24 01:27:00 [facility] (BNP) [facility] REPORT OF PROCEDURE - 2020-05-24 00:00:00 Provider, Christopher [facility] - ENDOSCOPY SCAN Scanning [facility] SARS-COV2/RT-PCR ([facility] & 2020-02-22 10:34:00 [facility] - REF LABS) [facility] Plan of Care Planned Activity Planned Date Details Comments Source Future Scheduled 2020-05-[address] [facility] 00:[facility]00 (WELCOME TO [facility] MEDICARE) [code = Medicare IPPE (WELCOME TO MEDICARE)] Future Scheduled [address] (procedure) [code = [facility] Center 07308022] Future Scheduled [address] [facility] Test 00:00:00 malignant neoplasm Medical C enter of colon (procedure) [code = 820810008] Encounters Start End Encounter Admission Attending Care Care Encounter Source Date/Time Date/Time Type Type Clinicians Facility Department ID 2020-05-08 2020-05-08 Emergency CUATE Delgadillo [id number] 14:38:00 18:28:00 Renata Ramos [id number] Jennifer [id number] [place] [id number] Results Test Description Test Time Test Comments Results Result Sourc e Comments HEMODIALYSIS 2020-06-03 Alon Garrett [facility] INPATIENT 12:01:00 RN 06/03/2020 - Medic al [...] K/CU MM L MPV (test code = 92781-5) 10.8 fL 9.4-12.4 nRBC (test code = 413) 1 0- 0 /100 WBC H Lab Interpretation (test code = 74310-2) Abnormal [facility] [id number] 10:02:00 Test Item Value Reference Range Interpretation [...] = 3438) FANTA (test code = FANTA) [employer] Bag Making Machinist ID - Chris Mtz comments: Slide comments: Lab Interpretation (test Abnormal code = 51693-7) [facility] W/PLT COUNT & AUTO [id number] 10:02:00 Test Item Value Reference Range Interpretation [...] CONCENTRATION Decreased (CELLAVISION)(BEAKER) (test code = 3438) [employer] Making Machinist ID - Chris Mtz comments: Slide comments:Comprehensive metabolic [id number] 05:15:00 Test Item Value Reference Range Interpretation Comments Protein, Total (test 6.5 6.0- 8.3 gm/dL Speci men slightly code = 2885-2) hemolyzed Albumin (test code = 3.3 g/dL 3.5-5 L Specime n slightly 48710-0) hemolyzed Alkaline Phosphatase 71 U/L 40-150 (test code = 6768-6) Total Bilirubin (test 0.3 mg/dL 0.2-1.2 Specim en slightly code = 1975-2) hemolyzed Sodium (test code = 134 meq/L 136-145 L 2951-2) Potassium (test code = 5.1 meq/L 3.5-5.1 Speci men slightly 2823-3) hemolyzed Chloride (test code = 96 meq/L 98-107 L 5-0) CO2 (test code = 24 meq/L 22-29 2027-9) BUN (test code = 60 mg/dL 7-21 H 3094-0) Creatinine (test code 9.02 mg/dL 0.57-1.25 H Specim en slightly = 2160-0) hemolyzed Glucose (test code = 89 mg/dL 70-105 2345-7) Calcium (test code = 9.2 mg/dL 8.4-10.2 74913-5) AST (test code = 42 U/L 5-34 H Specimen sl ightly 1920-8) hemolyzed ALT (test code = 14 U/L 6-55 Specimen sl ightly 1742-6) hemolyzed EGFR (test code = 6 mL/min/1.73 [place] [address]-8) NOT ACCURATE CREATININE CLEARANCE IN PREDICTING GLOMERULAR FILTRATION RATE . ESTIMATED GFR I S NOT APPLICABLE FOR DIALYSIS PATIENTS. FANTA (test code = FANTA) [employer] Making Machinist ID - [place] M Lab Interpretation Abnormal (test code = 92108-9) [facility]PRE[facility] METABOLIC [id number] 05:15:00 Test Item Value Reference Range Interpretation [...] S NOT APPLICABLE FOR DIALYSIS PATIEN TS. Paper Bag Making Machinist [facility] [id number] 05:03:00 Test Item Value Reference Range Interpretation Comments Protein, Total (test 6.5 6.0- 8.3 gm/dL Speci men code = 2885-2) slightly hemolyzed Albumin (test code = 3.3 g/dL 3.5-5 [place] [address]-0) slightly hemolyzed Total Bilirubin (test 0.3 mg/dL [...] slightly hemolyzed FANTA (test code = FANTA) Paper Bag Making Machinist ID - [facility] Lab Interpretation Abnormal (test code = 00937-4) [facility]esium2020-10-14 05:03:00 Test Item Value Reference Range Interpretation Comments Magnesium (test code = 2.0 mg/dL 1.6-2.6 Speci men 26626-7) slightly hemolyzed FANTA (test code = FANTA) [employer] Making Machinist ID - [facility] Lab Interpretation Normal (test code = 64637-3) [facility]2020-10-14 05:03:00 Test Item Value Reference Range Interpretation Comments Phosphorus (test code 4.3 mg/dL 2.3-4.7 Specim en = 2777-1) slightly hemolyzed FANTA (test code = FANTA) [employer] Making Machinist [facility] Lab Interpretation Normal (test code = 35222-9) [facility]2020-10-14 05:03:00 Test Item Value Reference Range Interpretation Comments MAGNESIUM (BEAKER) 2.0 mg/dL 1.6-2.6 Specimen slightly (test code = 627) hemolyzed [employer]ist ID - [place] [id number] 05:03:00 Test Item Value Reference Range Interpretation Comments PHOSPHORUS (BEAKER) 4.3 mg/dL 2.3-4.7 Specimen slightly (test code = 604) hemolyzed [employer]ist ID - [place] MHEPATIC FUNCTION [id number] 05:03:00 Test Item Value Reference Range Interpretation [...] Specimen slightly (test code = 347) hemolyzed [employer]ist ID - [place] [id number] 04:44:00 Test Item Value Reference Range Interpretation Comments Protime (test code = 14.1 11.9- 14.2 5902-2) seconds INR (test code = 1.12 <=5.90 6301-6) PTT (test code = 38.0 22.5- 36.0 H 83595-9) seconds FANTA (test code = FANTA) Effective 01/16/2019: PT Reference Range ChangeNew: 11.9-14.2 Previous: 11.7-14.7 RECOMMENDED COUMADIN/WARFARIN INR THERAPY RANGESSTANDARD DOSE: 2.0-3.0 Includes: PROPHYLAXIS for venous thrombosis, systemic embolization; TREATMENT for venous thrombosis and/or pulmonary embolus.HIGH RISK: Target INR is 2.5-3.5 for patients wiht mechanical heart valves. Lab Interpretation Abnormal (test code = 36330-8) [facility] HospitalPT/[id number] 04:44:00 Test Item Value Reference Range Interpretation [...] is2.5-3.5 for patients wiht mechanical heart valves.Calcium, [id number] 04:34:00 Test Item Value Reference Range Interpretation Comments Calcium, Ion (test code = 1994-3) 1.17 mmol/L 1.12-1.27 pH, Blood (test code = 74926-4) 7.44 [facility] HospitalCALCIUM, [id number] 04:34:00 Test Item Value Reference Range Interpretation Comments CALCIUM IONIZED (BEAKER) (test 1.17 mmol/L 1.12-1.27 code = 698) PH, BLOOD (BEAKER) (test code = 7.44 1810) Prepare Leuko-Red [id number] 23:54:00 Test Item Value Reference Range Interpretation Comments CROSSMATCH (test code = 2264) COMPATIBLE Unit ABO (test code = O Pos 8666726) UNIT NUMBER (test code = [id number] 934-0) Status (test code = 5736556) TX_TIMEINCHART Blood Bank Product (test code RED BLOOD CELLS = 2263) PRODUCT CODE (test code = L0904E53 933-2) [facility] W/PLT COUNT & AUTO [id number] 07:51:00 Test Item Value Reference Range Interpretation [...] CONCENTRATION Decreased (CELLAVISION)(BEAKER) (test code = 3438) [employer] Bag Making Machinist ID - Abby Higgins comments: Slide comments:Basic Metabolic [id number] 05:22:00 Test Item Value Reference Range Interpretation Comments Sodium (test code = 135 meq/L 136-145 L 2951-2) Potassium (test code = 4.7 meq/L 3.5-5.1 2823-3) Chloride (test code = 98 meq/L 98-107 5-0) CO2 (test code = 25 meq/L 22-29 2027-9) BUN (test code = 36 mg/dL 7-21 H 3094-0) Creatinine (test code 6.44 mg/dL 0.57-1.25 H = 2160-0) Glucose (test code = 96 mg/dL 70-105 2345-7) Calcium (test code = 8.6 mg/dL 8.4-10.2 16972-1) EGFR (test code = 9 mL/min/1.73 [place] [address]-2) NOT ACCURATE CREATININE CLEARANCE IN PREDICTING GLOMERULAR FILTRATION RATE . ESTIMATED GFR I S NOT APPLICABLE FOR DIALYSIS PATIENTS. FANTA (test code = FANTA) Paper Bag Making Machinist ID - EDASI Lab Interpretation Abnormal (test code = 87105-0) [facility] Hospital[facility]I METABOLIC [id number] 05:22:00 Test Item Value Reference Range Interpretation [...] S NOT APPLICABLE FOR DIALYSIS PATIEN TS. Paper Bag Making Machinist ID - [id number] 04:52:00 Test Item Value Reference Range Interpretation Comments MAGNESIUM (BEAKER) (test code = 1.9 mg/dL 1.6-2.6 627) Paper Bag Making Machinist ID - EDASIHEPATIC FUNCTION [id number] 04:52:00 Test Item Value Reference Range Interpretation [...] (test code = 15 U/L 6-55 347) [employer] Making Machinist ID - EDASIPT/[id number] 04:20:00 Test Item Value Reference Range Interpretation [...] is2.5-3.5 for patients wiht mechanical heart valves.POC-Glucose [id number] 22:24:00 Test Item Value Reference Range Interpretation Comments POC-Glucose Meter (test 99 mg/dL 70-110 : TE STED AT [facility] code = 1538) [address] [facility], 770 30: Paper Bag Making Machinist/Techni connie ID = [id number] for Jerson Morales Lab Interpretation (test Normal code = 90374-3) [facility] [id number] 22:24:00 Test Item Value Reference Range Interpretation Comments POC-GLUCOSE METER 99 mg/dL 70-110 : TESTED A T [facility] 6720 ([facility]) (test code = PENELOPE Lazo [facility], 1538) [address]: Paper Bag Making Machinist/Techni connie ID = [id number] for Camille hoang Jerson Hepatitis B surface [id number] 20:25:00 Test Item Value Reference Range Interpretation Comments Hep B S Ab (test code = 27.2 <8.0 mIU/mL H 31157-9) [facility]ANTA (test code = FANTA) Paper Bag Making Machinist ID - DB Lab Interpretation (test Abnormal code = 43632-5) [facility] SURFACE [id number] 20:25:00 Test Item Value Reference Range Interpretation Comments HEPATITIS B SURFACE ANTIBODY 27.2 mIU/mL <8.0 H (BEAKER) (test code = 647) Paper Bag Making Machinist ID - DBDrug Test, General Toxicology, [id number] 11:06:00 Test Item Value Reference Interpretation Comments Range Acetone([facility]) None Detected (test code = 3053) Methanol([facility]) None Detected (test code = 3054) Drug Test,Genrl see note The followin g compounds were Tox,U (test detected: Co tinine code = 9138132) (Nicotine Me tabolite) Morphine Osvaldo taminophen Hydromorphone Hydrocodone Benzoylecgoni ne (Cocaine Metabolite) Cyclobenzaprine For a list of compounds an d limits of detection go to:[email or web address].[employer]/faq /MLH744 ISOPROPANOL None Detected (test code = 3586181) ETHANOL (test None Detected Volatile code = 1859408) Limit of Det ection: 5 mg/dL This test was d nahomieloped and its analytical performancechar acteristics have been deter mined by [employer] [place], [place]. It hasnot been enoch ared or approved by the U.S. Food and DrugAdministrat ion. This assay has been validated pursuantto the CLIA regulations and is used for clinicalpurpose s. FANTA (test code Performing Lab = FANTA) [address] [facility], [address] [address] [place] [address] Mckenna Lopez MD, PhD [facility]CBC W/PLT COUNT & AUTO [id number] 08:11:00 Test Item Value Reference Range Interpretation [...] CONCENTRATION Decreased (CELLAVISION)(BEAKER) (test code = 3438) Paper Bag Making Machinist ID - Jonna Pascual comments: Slide comments:BASIC [...] S NOT APPLICABLE FOR DIALYSIS PATIEN TS. Paper Bag Making Machinist ID - BONILLA [id number] 05:45:00 Test Item Value Reference Range Interpretation Comments MAGNESIUM (BEAKER) (test code = 2.2 mg/dL 1.6-2.6 627) Paper Bag Making Machinist ID - BONILLA MHEPATIC FUNCTION [id number] 05:45:00 Test Item Value Reference Range Interpretation [...] (test code = 11 U/L 6-55 347) Paper Bag Making Machinist ID - BONILLA MPT/[id number] 05:17:00 Test Item Value Reference Range Interpretation [...] patients wiht mechanical heart valves.Type and screen, [id number] 11:24:00 Test Item Value Reference Range Interpretation Comments ABO/RH AUTOMATED (BEAKER) (test O POSITIVE code = 2260) Ab Scrn (test code = 890-4) NEGATIVE [facility] HospitalHemoglobin and [id number] 09:57:00 Test Item Value Reference Range Interpretation Comments Hemoglobin (test code = 7.2 13.7- 17.5 GM/DL L 786-4) Hematocrit (test code = 21.2 % 40.1-51 L 4544-3) FANTA (test code = FANTA) Paper Bag Making Machinist ID - [id number] Lab Interpretation (test Abnormal code = 01571-9) [facility] HospitalHEMOGLOBIN AND [id number] 09:57:00 Test Item Value Reference Range Interpretation Comments HEMOGLOBIN (BEAKER) (test code = 7.2 GM/DL 13.7-17.5 L 410) HEMATOCRIT (BEAKER) (test code = 21.2 % 40.1-51.0 L 411) Paper Bag Making Machinist ID - 6000CBC W/PLT COUNT & AUTO [id number] 08:25:00 Test Item Value Reference Range Interpretation [...] CONCENTRATION Decreased (CELLAVISION)(BEAKER) (test code = 3438) Paper Bag Making Machinist ID Joseph Adams comments: Slide comments:BASIC METABOLIC [id number] 06:33:00 Test Item Value Reference Range Interpretation [...] S NOT APPLICABLE FOR DIALYSIS PATIEN TS. Paper Bag Making Machinist ID - BANDAR [id number] 06:22:00 Test Item Value Reference Range Interpretation Comments MAGNESIUM (BEAKER) (test code = 2.1 mg/dL 1.6-2.6 627) Paper Bag Making Machinist ID - BANDAR LHEPATIC FUNCTION [id number] 06:22:00 Test Item Value Reference Range Interpretation [...] (test code = 12 U/L 6-55 347) Paper Bag Making Machinist ID - PIAYA LPT/[id number] 06:13:00 Test Item Value Reference Range Interpretation [...] mechanical heart valves.CBC W/PLT COUNT & AUTO [id number] 07:32:00 Test Item Value Reference Range Interpretation [...] (CELLAVISION)(BEAKER) (test code = 3438) BASIC METABOLIC [id number] 06:02:00 Test Item Value Reference Range Interpretation [...] I S NOT APPLICABLE FOR DIALYSIS PATIEN BRUCE. [id number] 06:00:00 Test Item Value Reference Range Interpretation Comments MAGNESIUM (BEAKER) (test code = 2.0 mg/dL 1.6-2.6 627) HEPATIC FUNCTION [id number] 06:00:00 Test Item Value Reference Range Interpretation [...] (test code = 12 U/L 6-55 347) [id number] 05:30:00 Test Item Value Reference Range Interpretation [...] mechanical heart valves.CBC W/PLT COUNT & AUTO [id number] 07:05:00 Test Item Value Reference Range Interpretation [...] CONCENTRATION Adequate (CELLAVISION)(BEAKER) (test code = 3438) Paper Bag Making Machinist ID - Kaylee BansalDawson comments: Slide comments:BASIC METABOLIC PANEL 2020-05-29 05:44:00 [...] S NOT APPLICABLE FOR DIALYSIS PATIEN TS. Paper Bag Making Machinist ID - [id number] 05:42:00 Test Item Value Reference Range Interpretation Comments MAGNESIUM (BEAKER) 1.7 mg/dL 1.6-2.6 Specimen slightly (test code = 627) hemolyzed Paper Bag Making Machinist ID - [id number] 05:42:00 Test Item Value Reference Range Interpretation Comments PHOSPHORUS (BEAKER) 4.8 mg/dL 2.3-4.7 H Specimen slightly (test code = 604) hemolyzed Paper Bag Making Machinist ID - EDASIHEPATIC FUNCTION [id number] 05:42:00 Test Item Value Reference Range Interpretation [...] Specimen slightly (test code = 347) hemolyzed Paper Bag Making Machinist ID - EDASIPT/[id number] 05:19:00 Test Item Value Reference Range Interpretation [...] = No growth in 5 days 6463-4) [facility] HospitalBLOOD [id number] 05:01:00 Test Item Value Reference Range Interpretation Comments CULTURE (BEAKER) (test No growth in 5 days code = 1095) BLOOD [id number] 05:01:00 Test Item Value Reference Range Interpretation Comments CULTURE (BEAKER) (test No growth in 5 days code = 1095) Hepatitis panel, [id number] 18:27:00 Test Item Value Reference Range Interpretation Comments Hep A IgM (test code = Nonreactive Nonreactive 55881-3) Hep B C IgM (test code = Nonreactive Nonreactive 24851-2) Hepatitis C Ab (test code = Reactive Nonreactive A 09926-4) HBsAg Screen (test code = Nonreactive Nonreactive 5195-3) FANTA (test code = FANTA) Paper Bag Making Machinist ID - DB Lab Interpretation (test Abnormal code = 75654-0) [facility] HospitalHEPAT[facility]IS PANEL, [id number] 18:27:00 Test Item Value Reference Range Interpretation Comments HEPATITIS A IGM ANTIBODY (BEAKER) Nonreactive Nonreactive (test code = 498) HEPATITIS B CORE IGM ANTIBODY Nonreactive Nonreactive (BEAKER) (test code = 645) HEPATITIS C ANTIBODY (BEAKER) Reactive Nonreactive A (test code = 367) HEPATITIS B SURFACE ANTIGEN (2) Nonreactive Nonreactive (BEAKER) (test code = 2585) Paper Bag Making Machinist ID - DBTissue [id number] 13:01:00 Test Item Value Reference Range Interpretation Comments Case Report (test Surgical Pathology code = 104) Report Case: [id number] Authorizing Provider: Myrna Monsalve MD Collected: 05/27/2020 08:20 AM Ordering Location: [address] Received: 05/27/2020 02:50 PM SERVICE Pathologist: Rosa Cisneros MD Specimens: A) - Biopsy, Gastric, random biopsies R/O H. pylori B) - Biopsy, Gastroesophageal Junction, random biopsies R/O Islas's DIAGNOSIS (test code b4nccRHrVPIao3nwUHBmhZOq = 3220) ZzEwMzNcZnRuYmpcdWMxIHtc ucAqTGuil0GrN6XqTlSqKFwg bnNpXGRlZmxhbmcxMDMzXGZ0 zcQmIIFxAAouLIDqYHaiFb5t vGCbkKteWoUhXDIzp6yiooXR jqzahDw8b2cuENHjYuQ6uOKe TYvhX1igauSelOBoEBDyDEi9 uJ20VHRvmB2fuMBlLXwuizEs JsE2CBbzUXRoSoF7VLCdgSFf BKGjE6zmMKJiUUihVLUxCIpq wZEeFFH3oDmaq6M9fHJrmYFl bTqgCxQsFcRdDZLJa3CsSNt1 gBotL6KmECAdZtP6rIBgJDZj HAlzTSMvJXKqeiC7rS96NGvk oxU4uGZyd9But92od176wT1e yHGjLJM7HLTzPIImlQOjXMSu OEJ4PNKovTYnC0w2QeMpoEQg A5F1VbNomDIhE1Y5PhLlqGGb T6M4HvLreBWeNNOsmMObXr0a qSAnrNFtbz0jii52RFR4l7An jJdoILS3ADN0GnXbWm7hrAXn OMSuWF3gTvLknRZyQWVkal46 pVpaJBvebtFvcW7aNdVrWVHm vZNbAWNiKS2ygHQgEFPafS7i cmxjXHBnYnJkcmhlYWRccGdi uaLxRr1ytUjcNNK5CDuiV8qw uF9mOmO7OSjlS9pxaA2tUHo1 XPyacSD7RQLkjL5rWN7vcnfg z4nmGxHdAC8dnvcma7xkNvAo ES8qhqa7s3mdFeHwBL5aqpab d4mgHcZrPMpuAGCtezglNGUa m7ZrkaziXXNvp9XmU7NflNni V90pnTpeN06yIYUpyPaxrY7o mHhobF1uApTvUbDeXTszpQsi bGFpblxmMVxmczIwXGxhbmcx DKYwZTkpZ1abHtOrELXrpUed XBvlz0EaXCLjXMOuFkIbID4a F9KJSWLRFArhWT1ZO2UJA6QL DjVBMFKUS6JRBPBJK1VHJSCB IFxwYXIgLSBBTlRSQUwgTVVD L4JTKHhQTNkjP4hXY95VGdDI TkFDVElWRSBHQVNUUklUSVMg DY7HMVAYK0LUQOfBNRIZBDeT QUwgTUVUQVBMQVNJQSwgXHBh ciAgIENPTVBMRVRFIFRZUEVc fFSxBN1xJ8yAQjBFGuFBOUPO I0LiF6pGDALBOvCFVSpVYYSL A9WNOWXBIBLYM5cHC6dXUBDN SUZQZMXXP83EROCoaiPpRX7C B2IJDTMFYORYSoIDKUaMW37R DAQPFHXnIIkTL8YXYLAdzcLt PE2CA4PVXRJLVDCUKjFRHXWI CCOPICGaJ9TyC2HYS2kYR13S OIRiuerhUFYxKe4iR0GBTGOY UXCDTMxRL6HHFYJDSV9YEShF OleoMH2RT8WKL6YXGfEJAPMK T7JCEPTKT2IDFFHTOIHarvDr LGKAMCJOJ6JQGBMOVjCDDM3Q U30CYQJWYIAFUAVUKGaCPRXN QFTVDHSTZ5doQOOgYGYXDMeA NJrVYWRKH2EeW0PKY5wNFTrg RUQgQkFSUkVUVCBNRVRBUExB C1zNFWRpxrmmBCVtxEXmiRwl epQdFRbnh8TaVNpsRZOoQG0q gEwrAWSwQC6nYWJgY9xulT2t exd4HfDqGLYiOpA6TUCrfpB1 Usd0LGFqMNtje3sds0VqXPUv GEi0uNzfWxPwJZUfi1lmgeMb UhHkZQCpEGNpOZBgrKQiO815 z3ulp8zdffStnTR6PJNuAYL3 LGtsnhDknsD1QVzjdHSkCpP5 IDtccmVkMFxncmVlbjBcYmx1 MZXgI092LWU6iFimt4zjUXM4 UFWtRBHlVyUuHr1xkEDxR967 MDNcQQLJBGWbbAw8IVUxavOo pvVuyTXOi961E191z1jbAEHj dlNklAqXyijxg8bzL309GBUx cGVydzEyMjQwXHBhcGVyaDE1 TKQvWI1rybopHGtbFOibHWZu aiX4RZQisQJqX9JtZSUiCE4u cdgpMZU8YQaoOCIcSAK8ThFw YIEcn7Tzsut8BmSpxw6tbs41 YNZ4v5CfrTonDXY0BHC0ZvUu Nm4kdTNwJZCaRW9wCwApjEWh HWPmud12gXrsBAzpLRD3ZNTe vaLue5Jym7spVcFtwdKtM5qp K2AoYUQlWVRkFPTxAsSicyQx q4Nrw5GlbKYobMb4l9mwOLAo YJAxlIrsu8qrEWD5XTQhdTZm U6lujK8hGPWpEV9kfsgjd4ac STueSOluOORjdSR5zbG4TMUo hHCyW4BtnL3iVATxCKtrITNb pjy5UcUcYs5aqDKbhAjbCXxg YmtwYWdlXHBnbmNvbnRccGdu ZGVjXHBsYWluXHBsYWluXGYw XGZzMjRccWxcbGFuZzEwMzNc aGljaFxmMVxkYmNoXGYxXGxv O8ypYxVuSfPwScr7DXBiqOMi ELWsUcx1UZCveBFzVOMRkDla sB7yKCOqgDnqqE1jjHQ0AGGe mtAeyIHQdS4yCUKQnS0gPjT4 JbQsTlQ2HOXeKKdmfHVhkZ7= COMMENT (test code = d0sgdHRrQHHbuYHgMgIiKTOc 3359) GGRlc4ihGASarZJwZrWcUgVz EuSsJcduvTNpLEUhIlDam3yn f768pYJzs4jqXAIeYjB1vPQk WTFihOVbK023l9wwz3mqgdRx hEC1SCUhMMQ4XIamcwMfkaU3 CWxzoZNhFyF8XZicbfIxDBbw zbTladHyQyy8ARUwT789AQO5 jYnhv2ckRRF4IFJkJEEpXwPi Vq5xuSXqH715QZNbVFHFKDFo wOq4QCQgneJqewAivURRx380 B907c5kfKYFetvWimJiIvhdi o4xvH109IQYqwBAfidHnOdVo EYHujEVrkSM2RXHfJW6ecwqk ReLfLR3esgdtFuWaMA1lrvk2 PsJjCC3akwrpYhSsOZopZCCg tmmcPWNpi5KmhcoqHO7vR6Nn m6R2aY1szHZiTYExkCSsXlZn QQGfeq0zdTBySOchi2NuSXL6 jxF4qCLpnPGhKOSiQL10Ffre m7FeIweaLLX6SDDqwjNsf9Wd t4ezYrCnusOpI5zaM3TbGMBw SVZcPXUtLaXlkkWcd1Yya0Yn oEHvbVy8d0wfCYYdHPXucQqu s9prMXX2MWTmD6K5nTIez7tv FPzhBEBcxZM7hlxjBKzhKQWa ckM9orklGPvbPDVqrPP5uuoa RFknRJVyVeL2ctxkKSriHAWf CYT7IWuie440QXI2OVeaZshq YWdlXHBnbmNvbnRccGduZGVj XHBsYWluXHBsYWluXGYwXGZz UbDlfWeueJpmgI6mIzUgOlRv WTqiBN7cPIOjJ7tvpPGoOBLa THQqS6tiJeUiuB1yeWqxNQsk vxXvQY3sqZBrmA== CPT Code(s) (test m2eveLMqSALhzBPdZaLeNPKq code = 3357) HDEuz9jyHLGftEUhYcQiFcGe LpAbHulcaCRwGFLrOoCkt2bf o899vNZrx8pwBMLeVyY5vJJv ZJErfCStS453j1rfz4qbnpQs mED0SIDgDPD8GLvqepKcztP5 KXjlrXRpBfF9YOqpdyPjPGpd paAmpxTbIuw0VNOiP131BPE0 uRdam2mqRVG5BZJcKWRsGfBl Fu4thJJgS987CQRiWRCNNPJx qSm1DCTyboIrklRcqHZKw839 F301x9wjXJZjmpGvmAoNuyuz v8agJ203DWRebRJvmxGiQsYd ZZBtqVNxxYA4BRKnTD2mtiwc AeNpXW6mkeiyYtDiMC8bfip9 VeMzLT6uvgphRsCxRLpcOCVc ndrsKPIkr8GtjcqgZB7bR2Ae g0P0hD0veWGhWQXsrHRjKdYh ZMZrfy1gkSXdSJcrj9CbWZF7 wpN4mQPpzWXwRVXrWK60Ofxo d4XvWeirRWF4NHXneoVdt8Bd y1uaAhNrgvWwO8pwR6FpRGEh VFArZWBfBtAkfkIcv9Hda1Uw zSRrnEq9u6ctSUZmFKBxfYuk e1gqKRA4YHHeQ3L5iPAwu7gt WHzjGIRpfDI7ngbkQZznNZTa fzU0olfqBRbuSCUolEQ7esxl XWgdBBKvVqB7jgqhTWwoBLRu QOV4EMdfy282ETG2XGkkInkv YWdlXHBnbmNvbnRccGduZGVj XHBsYWluXHBsYWluXGYwXGZz ZzEymQowgPcqrE3sLoRxYkXp MGhvGT5jJGWgJ6akdUOnHIIu EFQwW6imDmMbsN5srDrrJShu azIyYVz9CzL2IMebCMF6RMEh MlxwYXJ9 CLINICAL HISTORY o9flcZBnXCMjiVOtPqNkKTUy (test code = 3356) QNEfy6zfRQImfDXzAyLrKnDl QpHsIodfcQPuQSFoVpKjh2mk d694dTSdn6nlRBFzJdG7qJKb SBCozWBfW260f8dzc0xnobSt yPS9VNHuGNL7RAyybyJlerS7 REfpiPLhXtZ2CNechgEmZJje mpZmuhGiQzz7NPLaK970YCX7 kZqim2rbBAS3BQJfDICdYmAu Wk3mgZAzS450WJDkTYGDGGJw tWy3XFLrxnQweoAnjAMPo967 S101n3ukNRCexmAbhTjMuprg t1ntP042DUPteHEwxaWcXrHx VLAnhMChbLD9JRWiGK0nghfv MbNvGM3okhbvZsSxUQ1duql6 AgExWF3cdzjxYcFqGRhmLNQj fnrkBPZpc9WrnavxNO8vJ0Ao a6Q0hU9lrJHbDQBywVLqEtHo QVAhyn8azTYyRUsxi3LeLFC2 eaA0aTHzsBXjOIXvWN77Sghc n7PeWngyLSZ0CLGgvyZts1Au z4lcMoMdhuJjI5aiH3QrROQp ETEkZLVcTzIjahKii7Xxc8Bv ePTyxXv4v0ynCYWhLHEogYoq p0swHXN6EJWhC6T4jWPfl3pc QCewKZLqjWE4fcbsFMslYUWo anK0huotCEglTXQjzTN5boez RYqnGKPzGyA7vfpaSFwzUXKx RZC9RVtkr816IFS4NNvnQeuq YWdlXHBnbmNvbnRccGduZGVj XHBsYWluXHBsYWluXGYwXGZz ZtXvoZinbRhjcN3vLeIqNgHm EOpzAO7lLIIfM9wavKUhYEGe EBVbA4uhOyNobW7mhHmuKJje nnKlXUMrCU7aWJLnfCFwcM== SPECIMEN SOURCE (test r7czxUSwUHLtaIQzZvGaFRXz code = 3377) RCKlo6ggUZQmxJKdSgIhNuBr QuGfJvjuuNHdLFSjFeVei3gx r343tDGgi6khTWWfDuY8gJHa SQRzfLOeQ233t1fqd1gqbfJr bYU4STExQDM8RFgfsvBwaxZ6 BZsfpWAiNeG5MHatccBoQYbh asLbobFcRva1HGIiN058NAS7 iEivl5dmNGF1YNQjODTkPsHm Da3zwUOxO564OIYjGICUHZDt nCc5MADhdaAwgwVltUVLn224 O017m6wcAEYhkmElnJgMcgjg s1edR298IXPqmRFsrxZaSkNn OXQdfTIcaEY4HKCwPG0bpqxr WuVsOK1kxcopAiNpOL6lsix2 BvMlXN9ozyzsQjChVIwmPMZg jyqgIPRsh2LkrxyfUG2wY7Nx e0R7hS4qwABgMPVupYQdPeLo UPMxig4qrOShSDcnx1CrQHP7 pzD2pDJgbXTcYLIiPV44Qkvz s5CpKmbsGUE8RAQpkwPef3Hm z1enXdThwoTfW9nyF2YxVBGe XRMaNVPhQcCojpGlm3Vcq2Dn dNRagFh9j4gvAZQhGYBeiWzf d1vhMNL8ZFXmR9T3rVOpo8ib IZcbJLXlqEI4zsuqIHruAQUp ldA8rjnfRNmcAPYefYO0ouen EEzjAIFeAaP9efowWCpnENYf QFB0UYvmm908REY0BLqiZmfq YWdlXHBnbmNvbnRccGduZGVj XHBsYWluXHBsYWluXGYwXGZz DrAojMsknVeakQ7bHqZgCvMt HLngNR2uVKIbQ6iuiAWxZXZw ZJIwZ4bhExKbcV4uiNyyDIkz czIwIEEuIFJhbmRvbSBnYXN0 jsiiKYQtp1UdcIvynnJoAPVc vCKpYM9xIHmzr1GdXEEbcoHY TnYPLK2me92lJ4MhihGjW5Ut c01nBgkixUV7MGZspCxxCA29 sIBLAIIyUQR4C9WiIQAocr4= GROSS DESCRIPTION t5lnyNRxFNGxeTPoKeKzUQRf (test code = 3366) JWFnn7fiVJIhjABoIzGtWoNe QtFoJucggKIsYLGpQcUvz1md k832zEHdh1egTJOpMkA3qTOk GDWzfUYuU399EEMrTYmha0gu z8GwBGDbjAVfj8V8AWADsaig zPg3pLspP62ge6J4QeehI5ns ALVoNKCiA1RuBM7bFYCoVaf0 PMQ8VMQ6KJSoYXIoV0WfJZ6i RPXtkCUwGTg0d5ffhFicMHUv XRR7j2ajNJancxHdVA3jxu8w mRp8i0bowdAhGVOoTIFguMMB ZFVdW4JpuWoeFy7riSg1eXft RzuhYLP3Ujw5GC3hjc89vak9 rEgkHZFgpgvbCoT9GJxsMOMp aqxnPFa7QJbyMJMldVssYVcp YXJncjcyMFxtYXJndDcyMFxt SOZdLlxiCOcnGFVsHLW7VZyq v834UOK8KIswl0azy9chsIHc Suc0RPDsVmFiMreqDAkno4Zo q6rlZBFwxm7bEQR7nIYywEje n8H2cSDoESEijUFfkqStPEGt KxZ6XDvtUY6zxm90YBLvAQU7 yr3tdBBtuIdmtrBatMEaZEgu Q2LwYOWsy396NEHmQ0SaOOBj q7Q8rhXmJmWrCBUpoRI3ubN8 JISfIXi2eRHhvcN4gfSygYWx L9vqkR04MsCwjNHkD1QmtI00 KoQdpGIeO8XqrN39FwNkiPIb D1VusO41XoDynTTnNQZlkFJx Jc9wpDYzcPKaw7PzbEKjDHqj R88ib457NEGrxxShZ8hfvKVv mqmftGEvnsdhHTbcrrN2XROg XHBsYWluXGYwXGZzMjBcbGFu ZzEwMzNcaGljaFxmMFxkYmNo FXAzZKwbR9dmHdUwAcEvMSMS GwYKTWLjoMWmYBVylgNab8Yt YWxpbiBsYWJlbGVkIHdpdGgg kVfxGSLbeFirljEztxQeDP1t NLHlVJKqH1FmLXEoQ83eMMXw cF4lXCPuEO9hEPQeAGD2fkvk JNLwd2HyjSUoXPKeTOI2xqYe vTHtQAQmq0YrgBZvSVxoyHRg LX79O38oUM0tw0HaphKjXOQc g7U4HMF7eMH2QW4kUNQ4acCr GV19DMjtEW7yPTelLQ1vAAIy FWhuSFJnS1JvJ3F7WM8iMUnt VMRcLRQtwQFeEQzdLSS7El6p cIPqDUWpwyD3z2HlLQEsnGno y5qfZuUcnLn1xdY1xV4nQZyf YDNdo7MglGJzQLSzThdaFVVr cGFyXHBsYWluXGYxXGZzMjBc bGFuZzEwMzNcaGljaFxmMVxk GeKbFRWeTCysV6ijAfJpQwKz MCBCLiBSZWNlaXZlZCBpbiBm j8NsHXeyhgErCXBnyAIlHBfy dGggdGhlIHBhdGllbnQncyBu FO1hRJYxMGHeC1NhZNFbX15i SURraC2fLGWrYX7eEPUTLOZq wX0wuXtvuuSqvV2wa8qlRFPt RMB3b58cmQmrL0BqYY3cTSZf dv73sNr7DLNtmNRym3LrT901 VRDrMSE6nTAjlNGdiDvoyLUe YODccUVtLMTmHRL6BOXiUiQ3 SUQyKvOxqGGphtQnA8utNVlm vFLaQFZoVJUghIBuyL2apgAa ukImjNVgxNH3QKIvdA3vmF64 bsKsv3wrt1ucwnabMlwymDLe iQgahzSufkFmLSKsVEK8TWLW IX8ifGndoF5nEmPeHwKgNAan FI4gTWTcO0fcjRYxARZuINAn L8qpFjAkbZ7nvAhdZPescoAz ZQLQJZQgLEbqhVwooB8fYgZi KeXpMRolQB7vFSPmE0tykADc YXKcURSlZ0cbUnJswV9egMgc MVxmczIwXHBhcn0= MICROSCOPIC b9vzqZNqFGKayHWtYlPwTPMz DESCRIPTION (test BYTia2jkRYAbmFZfDpJuUvXa code = 3371) LmCqEszrtDXmAMJrHcYym0kl i960lCQdw5hhMMLgDuN8hMLi PSZtsDGjF453ZGJpUVohf0ut q6EjVYMevBHjt0T5IQPOufoj kJk6uJpjB80kp2B3GexhF8hu BAVnBQVaK1VyZX3nOTPpRuf7 HYW4UFW5DOQeKHOeY5DcYN6q VSFqlPNgCGq0u5spjXjpQEZa UYS5n6arXZiiouPqEK3rht2h xOr8q8grsbJrOXMhNMHhdQSD KZIsA8ZqvHrhMr4jfWb1cZao XrhvTQN0Wmp7EJ4trv52lmy7 wIkhEMNikttlBvX6OMnuSLZk undkIKb4UTerPHWuiSgaSRjq YXJncjcyMFxtYXJndDcyMFxt RHWgSssnNCttSFQjLDT7MDwc k312ECL5ABcel9dft2oanLKb Zfm3ONQrJjGjAvrfSCefg9Bz d2lxDEMfqu4jCHE1mBNveSug z4M8aWMjASPqnXTjmiCnXFVo QxK6RDcjSJ5lia03JYDxWLL9 os8jrUTavGqbsjCdmWVtDKzn C8YyKCSfh657RXCvN6GeLVKv u5K1ufEeUcPfXWYtbBV9ccB8 LSVhVIj3wLMwadM8tqBroDTi K2xntR66LtJldLSjC3FuwJ26 NiJmsIPnX9UezW28OrKcdJFa O1FtyM84GrIrwRNbKEMsdNWe Cm4vcFTfeGVyh0IlkHOeCZgj P36wo531DCXowvRsV1xbxMKq drgckZAogxhuYCrujiW3ORJu XHBsYWluXGYxXGZzMjBcbGFu ZzEwMzNcaGljaFxmMVxkYmNo FFAkNLwcV0saBiJzPuJfWMGI KiIBBKM5xM8jOVXfk2adLCuf t7ZkmYClBH50zaBsBPMzEAVc kBkzrJxcTQ86B93jWK6nBWxn OZCzeTQbeTNlmDDva3Vpo1ey s9StxGguVFYrbBPywwhxYFyx HIT9qGGsGOjpx9PtrHTgobE7 lXBcXVooC84axZutbESftJ74 DOD1yS6ceIQgMJCxmKqrf3ds XdAThvZjL5AvdqNykO2tfYCg yPZ8aY7sWMjkXHGeUQDywyEt GFAvGUAweWuzjAkrTY66Z75q XMYtxY69pmKbndCftUtmnLZx F4WfyZHuwgVbBN5yNNXqh31n MXkjydFxqF0ir2FadR9oSq7m ZWhcsVfqx5EoR0FzukLtyKtv cmkgaXMgbmVnYXRpdmUuIFRo ARSlNYqbUN3kAQN2p7IwLYPe YZYvsySlFOXsnG9jyOHmMQIm nqvtFWSjWs4sX6WdyCieufLl fT06seVzXAQ5ua7ij72mdQBz CGXbLVc3tfS3yA2kOMoapWHf d1EhJLFlUTLkgWYnzW85djNv MT1roIqrH6KlhSdjfGAku8Bf XqOHkKSya2D6HR4wuXQgDPJe c3CiWBthTJnkFKTrpBSkodLp yXBiJqYCRYYhdH7kcXvapwPu GH54I56wLOAqtW26mxRjfyPa dmWqlBv7bCUqUTEqQO2kZISb VGVbsW9mW4R8SGTyxoVpN6Rv CYYglMRmfOfcWOMyAW3lTEZl AWKof8f6uU2gzlLlfEBxj7Jr o0dyi1ZqO8vxy02sClBfovCj ZL8cHOOlc40ze7b4zSPfTWJg UL9npHFpf5LrcDyrXkTExpXc l4TzHCRuD1SfhGZdTNOyxDbc u5uiIIeuKHKyXS6wPIPyvx8= SPECIAL STUDIES (test i0draPHtEJCjf1zlOUOstGQg code = 3376) ZzEwMzNcZnRuYmpcdWMxIHtc imYvWDelj9ObW5PmJkMwVErf bnNpXGRlZmxhbmcxMDMzXGZ0 vtBsATKsDKsgJKOwCFviWl7d gRJyiNqiXrGnWMZon6maxpHS afzhpKh1b1quNUHxGmB5qVAj LUuqS3oyqfNykZTqT8EnhDFv kEz8c1ntVeVlTkO7rVMwRFnl P7wamjEbuIQtUMQhIBu1zK86 PDMvoN2hmPNxCCqudsGvWiU2 FSqfXWFpUtJ9ZROkxDAkLBCq H2owTJVsODgxOCJqHRcguBDx NCP7wTezr7A2qZUurBHzwXad LlPvNxFpBfZCo1HoSMd8iLoz U4GeGPJvTdT2pYRnPBLmIXmw IKEkMJZprzB9qRgqqaAdh42w eHQyXGYwXGZzMjBcbGkwXHJp XJPPr0MhvUbzWZR3aJi9dGcb TdgtQTF8Dnp4YS6aun51yoh6 dUxpLUGtnigrZpY2RWwuLRTi agfvGTo2LZyvRRDorNN4BHSn aTRxZ7NzINDcPQ8zywu0QRI1 MWzxEWRxFtR9KTAngDAqXPQj yIjgNExfd616ULG6BkTwLV8m E4Ypn4M6sX4dqECsPEMmkYTi CuXvZJKaxv3fjGTfPIqgv4Nj KNW4ynA5iZBfgWNnIEBvPA92 Efgjo6PqQyodu9JlL55lrOE3 GFaod7xdIO8gEkD7wmCbSLcz d4esqB3nDeM6SKjkYO0xMW4g UJGelL1hobdzLNMvQnYzmwjh GAMgcLtmimKvVf5tlPbfXEF8 QAdtP8xgoA7aYaG5ZRspI5ok vW6cSPo9ZSqtoXE3JZDdaC7n JQ8tzzycz1qvIBazSQopTANf pxQ5zaY6GBFooJDlI4YrqP0s MTHxRZ6aoazaq7mjCUV2QAfm ASMuXGR5OeYgXUKdj5Wfijp2 QmBip6BpcJEtYYotV92da577 QGIeiuWiM3sttOAuxpzhvFYt rjtcUVkiddF2ESLyKBEzRRgt XGYxXGZzMjJcbGFuZzEwMzNc aGljaFxmMVxkYmNoXGYxXGxv O4xmKoMaT5VzGFHmGbOcZQtm TQosyKDxeCOktKR1iG5lGU1k DIOhpBBhO3AeFNBftpPqkNOd MBN0xLOnvIXdLU3bPIzgxBNc b6euh1GkE1eweZwumRT1RB4c MEAxYXKbOVgvp5RmxH0iJyit bGFpblxmMVxmczIyXGxhbmcx QLFiGXuwQ5nlGzCfRSRdaJam HNxit3EjROAtTSCmMxcqtjJv JUg2bgPhPJWkwpwmZDTkcJef bG1rLvPkLgEpBqjoHM6nAQKb L9qmmIQiXUYpVWGbH2ojWyTu bQ8klTljKJmmLgYlJsJyDiGC e099nh1hCWTobMYxitMUuEEm bD8lWThjPApzVIcmgZEbSUum v3ocVJXrh4d0rVJoNCLngoNs b0xqNGdpwjPyEYDrgIIohNPm CTIyo39gBNcsgNueuExeGCZk y2PabDbaj0UlSmPxAXoai7El K58hmFYqvLFwtEwoXSOgouIv CGUpa91zg8wpDXAnFpD3bSJm wMR3rUXkyITsn3RiaQhqTWHa w0ivTINybo1xvirwdRGva0Zb fP9jyekwLWlhdXNcxaQoLAJa t7q7wSHtHXSfXHApZEcksMu9 HWZew371ob8jerT7iIUdNRF8 YWlsYWJsZSBhcmUgZXZhbHVh dGVkXHBsYWluXGYxXGZzMjJc bGFuZzEwMzNcaGljaFxmMVxk MpFzPPLpQAgyF2bqVdAtA1Bm RLAfJkAghBIkR6hgvOIuWFXz YWluXGYxXGZzMjJcbGFuZzEw MzNcaGljaFxmMVxkYmNoXGYx HNimN9skQtSjU2WfTBYdLhFy IFxwbGFpblxmMVxmczIyXGxh azgpWLHaJWrkS2onOqItNHVf yVzcENfbj1VwXXBcBMDsKuio fpAxGYt9loLsFANinotnhGDz blxmMVxmczIyXGxhbmcxMDMz IRpzD1vvFnByZZNloOxqFXab n8FaMZKbAJRvHqwmbbQvVFpk fZCrx2eci3EcL0liiLpsuTD8 OXNvB9mgvJBgvKT1DEK7wK1f ZNzruwThATJjo4EnARUfLFIj SoI8uL9uQRH7QvAAlEydDJGh YWluXGYxXGZzMjJcbGFuZzEw MzNcaGljaFxmMVxkYmNoXGYx DPyyX3etWkSvA8KwKXLlDyXe tRhpRBczMCw2HpyqyKLpgfun MVxmczIyXGxhbmcxMDMzXGhp X2wbPeEaKNWnqZyeTZbbx7Fo XGYxXGNmMlxmczIyIHMgTWVk aKIlwXOCTZ90DSHfTHBeoJek lH1hpXSJJKTzyuD6x1O0AHwd RBQbPNw4SLgwedBeVZGvdN1q OUBmDU3gIRu1doNnCMNal3My FX8tFVAnoXGoGRE4LKXzk3Cm R6Dig1NaDMUtUWDgnu5ihxDm PhPKtRAkDWOpcy81LKJdJB3y T7qgVMLhQOYshnSjnHEtk2Rz NWPlnDV3cYAuVP6OPxXQa59d IGFuZCBEcnVnIEFkbWluaXN0 luH8iY9qKpJZtLDmXeYQUBql wbWnBHEumm0napMaFKAaXDUn p3WvqGHlfSThbgCnV8Wdt4Ih CKQvrl96TJsduGIpkj06SL1x N5Bjz3NriY4kCVtcFYSed6Pq lXLmyQExIPFdh2JgX0ngmvtx TLvbgBFfqC7iRAZpIPq7CQAf p1JcSRMat7EjKwJkbhGdDVOw YANmCOBymD88MUF9aDjvaBri lzLgDG9rDBSlbbFfDNLqLJGf zD7sUJagegNcSGZrofI5u1U3 LIvmBKLsbfWlNkfxBAM7veYr bcD3cDLjC6sknifjTRtrKSIk p7QjxN4pnFAIyBJyw9YmjBJv xXUSuVBuJT8hdfVfMP1oHCI3 ODggKENMSUEtODgpIGFzIHF1 VEeaEtxvCTS0kkPwVKOvn6Sq FQpaC3jlL04biYqtrOm5yKAu wCixdYDhfXMzVFZgfwJ6b6T4 UDPct7CavxloOZXuCVjyAIFx XGZzMjJcbGFuZzEwMzNcaGlj nJflBzgxDsWmGJKyPArtC8cr OgZoIdClKiuvMHE7iI== Gross assessment was [facility] performed at ([facility], code = 2777) Department of Pathology, [address] [place] [address], Technical component [facility] was performed at [facility], (test code = 2778) Department of Pathology, [address] [place] [address], [facility], performed at (test Department of Pathology, code = 2779) [address], [place] [address], [facility] HospitalTISSUE [id number] 13:01:00Surgical Pathology Report Case: [id number] Authorizing Provider: Myrna Monsalve MD Collected: 05/27/2020 08:20 AM Ordering Location: [address] Received: 05/27/2020 02:50 PM SERVICE Pathologist: [...] ISLAS METAPLASIA Signing Pathologist Direct Phone Line: [phone] signed by Rosa Cisneros MD on 05/28/2020 at 1:01 PM.00670 x2, [id number] A. Random gastric biopsy, rule out H. [...] evaluated Immunohistochemistry technical testing was performed at [facility], Pathology Laboratory where it was developed [...] as qualified to perform highcomplexity clinical laboratory testing.[facility], Department of Pathology, [address] [place], [place] [id number], [facility], Department ofPathology, [address] [place] [address], [facility], [address] [place] [address], ZCP W/PLT COUNT & AUTO [id number] 06:41:00 Test Item Value Reference Range Interpretation [...] CONCENTRATION Decreased (CELLAVISION)(BEAKER) (test code = 3438) [employer] Bag Making Machinist ID - Kaylee BansalDawson comments: Slide comments:COMPREHENSIVE METABOLIC [id number] 05:00:00 Test Item Value Reference Range Interpretation [...] S NOT APPLICABLE FOR DIALYSIS PATIEN TS. Paper Bag Making Machinist ID - BONILLA MBASIC METABOLIC [id number] 05:00:00 Test Item Value Reference Range Interpretation [...] S NOT APPLICABLE FOR DIALYSIS PATIEN TS. [id number] 04:45:00 Test Item Value Reference Range Interpretation Comments MAGNESIUM (BEAKER) (test code = 1.9 mg/dL 1.6-2.6 627) Paper Bag Making Machinist ID - BONILLA EPATIC FUNCTION [id number] 04:45:00 Test Item Value Reference Range Interpretation [...] (test code = 9 U/L 6-55 347) Paper Bag Making Machinist EVELYNE - BONILLA LOWERYDM-wveiq9861-20-08 04:33:00 Test Item Value Reference Range Interpretation Comments D-Dimer, Quant (test code 3.35 <0.50 MG/L FEU H = 40719-5) FANTA (test code = FANTA) Intended Use: [...] range. Lab Interpretation (test Abnormal code = 28614-6) [facility]-[id number] 04:33:00 Test Item Value Reference Range Interpretation [...] exclusion of thrombosis is within 95-100% range. [id number] 04:31:00 Test Item Value Reference Range Interpretation [...] detected HCV RNA not (test code = 92341-1) detected FANTA (test code = FANTA) This test uses a Real-Time Polymerase Chain Reaction (RT-PCR) methodology and was performed using BAIRON Ampliprep/BAIRON TaqMan HCV test kit version 2.0 ([employer]). Reportable range for this assay is 15 - 100,000,000 IU per mL (1.18 - 8.00 Log IU/mL). Lab Interpretation Normal (test code = 06408-9) [facility], [id number] 22:57:00 Test Item Value Reference Range Interpretation Comments HCV RESULT COMPONENT HCV RNA not detected HCV RNA not detected (BEAKER) (test code = 2699) This test uses a Real-Time Polymerase Chain Reaction (RT-PCR) methodology and was performed using BAIR[employer] Ampliprep/BAIRON TaqMan HCV test kit version 2.0 ([employer]).Reportable range for this assay is 15 - 100,000,000 IU per mL (1.18 - 8.00 Log IU/mL).Manual [id number] 12:07:00 Test Item Value Reference Range Interpretation [...] few Lab Interpretation (test code = Abnormal 00668-8) [facility] W/PLT COUNT & AUTO [id number] 12:07:00 Test Item Value Reference Range Interpretation [...] code = 1+ few 477) BASIC METABOLIC [id number] 04:27:00 Test Item Value Reference Range Interpretation [...] S NOT APPLICABLE FOR DIALYSIS PATIEN TS. 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 WBCs with mild left shift, including occasional myeloid precursors, no blasts seen. Few hypersegmented neutrophils. Thrombocytopenia with unremarkable morphology. Pathologist: (test Maddie Carolyn code = 2849) Bebeto Dsouza [facility]PER[facility] - PATHOLOGIST REVIEW 2020-05-26 14:31:00 Test Item Value Reference Range Interpretation Comments PERIPHERAL SMR Macrocytic anemia, REVIEW (BEAKER) moderate (test code = 6710) anisopoikilocytosis, with rare schistocytes (0.8 per HPF). WBCs with mild left shift, including occasional myeloid precursors, no blasts seen. Few hypersegmented neutrophils. Thrombocytopenia with unremarkable morphology. [id number] Maddiedaina Leon 2 (BEAKER) (test Bebeto Dsouza code = 2849) [id number] 13:50:00 Test Item Value Reference Range Interpretation [...] within 95-100% range.CBC W/PLT COUNT & AUTO [id number] 07:48:00 Test Item Value Reference Range Interpretation [...] CONCENTRATION Decreased (CELLAVISION)(BEAKER) (test code = 3438) Paper Bag Making Machinist ID - Chris Mtz comments: Slide comments:COMPREHENSIVE METABOLIC [id number] 05:43:00 Test Item Value Reference Range Interpretation [...] S NOT APPLICABLE FOR DIALYSIS PATIEN TS. Paper Bag Making Machinist ID - EDASIBASIC METABOLIC [id number] 05:38:00 Test Item Value Reference Range Interpretation [...] S NOT APPLICABLE FOR DIALYSIS PATIEN TS. [id number] 05:34:00 Test Item Value Reference Range Interpretation Comments PHOSPHORUS (BEAKER) (test code = 7.6 mg/dL 2.3-4.7 H 604) Paper Bag Making Machinist ID - [id number] 05:34:00 Test Item Value Reference Range Interpretation Comments MAGNESIUM (BEAKER) (test code = 2.0 mg/dL 1.6-2.6 627) Paper Bag Making Machinist ID - EDASIHEPATIC FUNCTION [id number] 05:34:00 Test Item Value Reference Range Interpretation [...] (test code = 6 U/L 6-55 347) Paper Bag Making Machinist ID - EDASIPT/[id number] 04:50:00 Test Item Value Reference Range Interpretation [...] is2.5-3.5 for patients wiht mechanical heart valves.CALCIUM, [id number] 03:59:00 Test Item Value Reference Range Interpretation Comments CALCIUM IONIZED (BEAKER) (test 1.08 mmol/L 1.12-1.27 L code = 698) PH, BLOOD (BEAKER) (test code = 7.49 1810) TSH/Free T4 If [id number] 20:19:00 Test Item Value Reference Range Interpretation Comments TSH (test code = 3.581 0.350- 4.940 uIU/mL 72625-1) FANTA (test code = FANTA) Paper Bag Making Machinist ID - ABBY F Lab Interpretation (test Normal code = 43157-3) [facility] HospitalTSH/FREE T4 IF [id number] 20:19:00 Test Item Value Reference Range Interpretation Comments THYROID STIMULATING HORMONE 3.581 uIU/mL 0.350-4.940 (BEAKER) (test code = 772) Paper Bag Making Machinist ID - ABBY FHEMOGLOBIN AND [id number] 19:42:00 Test Item Value Reference Range Interpretation Comments HEMOGLOBIN (BEAKER) (test code = 9.0 GM/DL 13.7-17.5 L 410) HEMATOCRIT (BEAKER) (test code = 26.7 % 40.1-51.0 L 411) Paper Bag Making Machinist ID - 6000CBC W/PLT COUNT & AUTO [id number] 14:10:00 Test Item Value Reference Range Interpretation [...] H PERCENT (BEAKER) (test code = 2801) [id number] 12:23:00 Test Item Value Reference Range Interpretation [...] 125-220 H FANTA (test code = FANTA) Paper Bag Making Machinist EVELYNE NORRIS F Lab Interpretation (test Abnormal code = 15560-6) [facility] HospitalLACTATE DEHYDROGENASE (LDH)2020-05-25 12:15:00 Test Item Value Reference Range Interpretation Comments LACTATE DEHYDROGENASE (BEAKER) (test 341 U/L 125-220 H code = 635) Paper Bag Making Machinist EVELYNE NORRIS FProthrombin time/[id number] 12:13:00 Test Item Value Reference Range Interpretation [...] valves. Lab Interpretation Abnormal (test code = 42291-5) [facility] HospitalPROTHROMBIN TIME/[id number] 12:13:00 Test Item Value Reference Range Interpretation [...] for patients wiht mechanical heart valves.HEMOGLOBIN AND [id number] 12:01:00 Test Item Value Reference Range Interpretation Comments HEMOGLOBIN (BEAKER) (test code = 9.0 GM/DL 13.7-17.5 L 410) HEMATOCRIT (BEAKER) (test code = 27.0 % 40.1-51.0 L 411) Paper Bag Making Machinist ID - [id number] 11:50:00 Test Item Value Reference Range Interpretation Comments Haptoglobin (test code = 172 mg/dL 14-258 4542-7) FANTA (test code = FANTA) Paper Bag Making Machinist ID - ABBY F Lab Interpretation (test Normal code = 70268-4) [facility] HospitalHAPTOGLOBIN2020-10-05 11:50:00 Test Item Value Reference Range Interpretation Comments HAPTOGLOBIN (ENRIQUE) (test code = 172 mg/dL 86-367 099) Paper Bag Making Machinist ID - ABBY Bragg Echo W/Doppler(CW/PW/Color)2020-05-25 10:53:54 Ejection FractionSLEH ECHO HEARTLAB MKCKESSON CPACSInterface, External Ris In - 05/25/2020 10:54 AM CDTTransthoracic Echocardiography Report (TTE) Demographics Patient Name THIERRY PADILLA Date ofStudy 05/24/2020 KYLIE Gender Male Visit Number [id number] Race Unknown Room Number 7217 Number Date of 1965 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 Owen Valdivia Interpreting Physician BEVERLEY Roche Procedure [...] CO: 5.41 l/min LVOT CI: 3.06 l/min/m^2[facility], TESTICULAR (SCROTUM)2020-05-25 08:58:00Reason for exam:->rule out torsionFINAL [...] Signed: Roya Verde Verified Date/Time: 05/25/2020 08:58:57 [facility] 08[facility]16[facility]00 Test Item Value Reference Range Interpretation Comments Ferritin (test code = 72714.32 ng/mL 5-275 H 2276-4) FANTA (test code = FANTA) Paper Bag Making Machinist ID - EDASI Lab Interpretation (test Abnormal code = 62718-7) [facility] HospitalFERRITIN2020-10-05 08:16:00 Test Item Value Reference Range Interpretation Comments FERRITIN (BEAKER) (test code = 96011.32 ng/mL 5.00-275.00 H 361) Paper Bag Making Machinist ID - EDASICBC W/PLT COUNT & AUTO [id number] 08:02:00 Test Item Value Reference Range Interpretation [...] CONCENTRATION Decreased (CELLAVISION)(BEAKER) (test code = 3438) Paper Bag Making Machinist ID - Jonna Pascual comments: Slide comments:RAD, CHEST, 1 VIEW, NON [id number] 04:42:00Reason for exam:->pulmonary edemaShould this be performed [...] 04:42:11 XR chest 1 view portable / [id number] 04:42:00 Interface, External Ris In - 05/25/2020 4:44 AM CDTFINAL REPORT RAD, CHEST, 1 VIEW, NON DEPT INDICATION: pulmonary edema COMPARISON: Prior day's exam FINDINGS: Portable frontal view of the chest. IMPRESSION: Support Lines: Stable. Lungs and pleura: Unchanged venous congestion and interstitial opacities. No consolidation or effusion. No pneumothorax.Heart and mediastinum: Stable contours.Additional findings: None. Signed: Sally Renae Verified Date/Time: 05/25/2020 04:42:11 [facility], TIBC, % sat. (without ferritin)2020-05-25 04:31:00 Test Item Value Reference Range Interpretation Comments Iron (test code = 2498-4) 118.0 ug/dL 40-160 TIBC (test code = 2500-7) 170 ug/dL 250-450 L Iron % Saturation (test 69 % 20-55 H code = 2502-3) FANTA (test code = FANTA) Paper Bag Making Machinist ID - EDASI Lab Interpretation (test Abnormal code = 38897-6) [facility], % SAT. (WITHOUT FERRITIN)2020-05-25 04:31:00 Test Item Value Reference Range Interpretation Comments IRON (BEAKER) (test code = 547) 118.0 ug/dL 40.0-160.0 TOTAL IRON BINDING CAPACITY 170 ug/dL 250-450 L (BEAKER) (test code = 769) IRON % SATURATION (2) (BEAKER) 69 % 20-55 H (test code = 2590) Paper Bag Making Machinist ID - EDASITroponin [id number] 04:23:00 Test Item Value Reference Range Interpretation Comments Troponin I (test code = 0.46 ng/mL 0-0.03 58509-4) FANTA (test code = FANTA) Troponin I [...] DB Lab Interpretation (test Abnormal code = 33766-6) [facility] HospitalTROPONI [id number] 04:23:00 Test Item Value Reference Range Interpretation [...] failure, acidosis, acute neurological disease, and persistent tachyarrhythmia.Paper Bag Making Machinist ID - [id number] 04:20:00 Test Item Value Reference Range Interpretation Comments PHOSPHORUS (BEAKER) (test code = 10.5 mg/dL 2.3-4.7 604) Paper Bag Making Machinist ID - DBCOMPREHENSIVE METABOLIC [id number] 04:19:00 Test Item Value Reference Range Interpretation [...] S NOT APPLICABLE FOR DIALYSIS PATIEN TS. Paper Bag Making Machinist ID - [id number] 04:11:00 Test Item Value Reference Range Interpretation Comments MAGNESIUM (BEAKER) (test code = 2.0 mg/dL 1.6-2.6 627) Paper Bag Making Machinist ID - DBHEPATIC FUNCTION [id number] 04:11:00 Test Item Value Reference Range Interpretation [...] (test code = 9 U/L 6-55 347) Paper Bag Making Machinist ID - DBPT/[id number] 04:11:00 Test Item Value Reference Range Interpretation [...] is2.5-3.5 for patients wiht mechanical heart valves.Reticulocyte [id number] 04:06:00 Test Item Value Reference Range Interpretation Comments % Retic (test code = 1.5 % 0.5-1.8 45593-8) FANTA (test code = FANTA) Paper Bag Making Machinist ID - 6000 Lab Interpretation (test Normal code = 02018-7) [facility] HospitalRETICULOCYTE [id number] 04:06:00 Test Item Value Reference Range Interpretation Comments RETICULOCYTE COUNT PCT (BEAKER) (test 1.5 % 0.5-1.8 code = 575) Paper Bag Making Machinist ID - 6000Lactic acid, [id number] 04:05:00 Test Item Value Reference Range Interpretation Comments Lactate, Venous (test code = 0.42 mmol/L 0.5-2.2 L 2872) FANTA (test code = FANTA) Paper Bag Making Machinist ID - DB Lab Interpretation (test Abnormal code = 00333-2) [facility] HospitalLACTIC ACID, [id number] 04:05:00 Test Item Value Reference Range Interpretation Comments LACTATE BLOOD VENOUS (2) (BEAKER) 0.42 mmol/L 0.50-2.20 L (test code = 2872) Paper Bag Making Machinist ID - DBCALCIUM, [id number] 04:03:00 Test Item Value Reference Range Interpretation Comments CALCIUM IONIZED (BEAKER) (test 1.02 mmol/L 1.12-1.27 L code = 698) PH, BLOOD (BEAKER) (test code = 7.44 1810) Hepatitis B surface [id number] 21:41:00 Test Item Value Reference Range Interpretation Comments HBsAg Screen (test code Nonreactive Nonreactive = 5195-3) FANTA (test code = FANTA) Specimen is considered negative for HBsAg. Lab Interpretation (test Normal code = 36674-2) [facility] HospitalHEPATITIS B SURFACE [id number] 21:41:00 Test Item Value Reference Range Interpretation Comments HEPATITIS B SURFACE ANTIGEN (2) Nonreactive Nonreactive (BEAKER) (test code = 2585) Specimen is considered negative for HBsAg.HEMOGLOBIN AND [id number] 20:59:00 Test Item Value Reference Range Interpretation Comments HEMOGLOBIN (BEAKER) (test code = 6.9 GM/DL 13.7-17.5 L 410) HEMATOCRIT (BEAKER) (test code = 20.8 % 40.1-51.0 L 411) Paper Bag Making Machinist ID - 6000TROPONIN [id number] 18:22:00 Test Item Value Reference Range Interpretation [...] failure, acidosis, acute neurological disease, and persistent tachyarrhythmia.Paper Bag Making Machinist ID - ROSIANGB-type Natriuretic Factor (BNP)2020-05-24 18:01:00 Test Item Value Reference Range Interpretation Comments BNP (test code = 93844-6) 202 pg/mL 0-100 H FANTA (test code = FANTA) Paper Bag Making Machinist ID - CECILIAG Lab Interpretation (test Abnormal code = 67022-5) [facility] HospitalB-TYPE NATRIURETIC FACTOR (BNP)2020-05-24 18:01:00 Test Item Value Reference Range Interpretation Comments B-TYPE NATRIURETIC PEPTIDE (BEAKER) 202 pg/mL 0-100 H (test code = 700) Paper Bag Making Machinist ID - CHANELLIV-1 Antigen with HIV-1/2 [id number] 13:43:00 Test Item Value Reference Range Interpretation Comments HIV-1 Antigen with HIV 1&2 Nonreactive Nonreactive Antibody (test code = 66771-3) Lab Interpretation (test code = Normal 47707-8) [facility]HIV-1 ANTIGEN WITH HIV-1/2 [id number] 13:43:00 Test Item Value Reference Range Interpretation Comments HIV-1 ANTIGEN WITH HIV 1\\T\\2 Nonreactive Nonreactive ANTIBODY (2) (BEAKER) (test code = 2586) TROPONIN [id number] 13:42:00 Test Item Value Reference Range Interpretation [...] failure, acidosis, acute neurological disease, and persistent tachyarrhythmia.Paper Bag Making Machinist ID - CECILIAGBASIC METABOLIC [id number] 13:37:00 Test Item Value Reference Range Interpretation [...] S NOT APPLICABLE FOR DIALYSIS PATIEN TS. Paper Bag Making Machinist ID - [id number] 13:10:00 Test Item Value Reference Range Interpretation Comments PHOSPHORUS (BEAKER) (test code = 6.3 mg/dL 2.3-4.7 H 604) Paper Bag Making Machinist ID - ROSIANGHEMOGLOBIN AND [id number] 12:38:00 Test Item Value Reference Range Interpretation Comments HEMOGLOBIN (BEAKER) (test code = 7.7 GM/DL 13.7-17.5 L 410) HEMATOCRIT (BEAKER) (test code = 22.7 % 40.1-51.0 L 411) Paper Bag Making Machinist ID - 6000Hemoglobin [id number] 09:17:00 Test Item Value Reference Range Interpretation Comments Hemoglobin A1C (test code = 4548-4) 5.8 % 4.3-6.1 Lab Interpretation (test code = Normal 53053-6) [facility] HospitalHEMOGLOBIN [id number] 09:17:00 Test Item Value Reference Range Interpretation Comments HEMOGLOBIN A1C (BEAKER) (test code = 5.8 % 4.3-6.1 368) TROPONIN [id number] 08:48:00 Test Item Value Reference Range Interpretation [...] failure, acidosis, acute neurological disease, and persistent tachyarrhythmia.Paper Bag Making Machinist ID - ROSIANGBASIC METABOLIC [id number] 08:33:00 Test Item Value Reference Range Interpretation [...] S NOT APPLICABLE FOR DIALYSIS PATIEN TS. Paper Bag Making Machinist ID - ROSIANGHEMOGLOBIN AND [id number] 08:12:00 Test Item Value Reference Range Interpretation Comments HEMOGLOBIN (BEAKER) (test code = 8.1 GM/DL 13.7-17.5 L 410) HEMATOCRIT (BEAKER) (test code = 23.5 % 40.1-51.0 L 411) Paper Bag Making Machinist ID - 6000Vitamin B12 and Obffzm6746-14-60 05:56:00 Test Item Value Reference Range Interpretation Comments Vitamin B12 (test code = 237 pg/mL 488-436 9113-9) Folate (test code = 4.00 ng/mL >=7.00 L 2284-8) FANTA (test code = FANTA) Paper Bag Making Machinist ID - EDASI Lab Interpretation (test Abnormal code = 97313-5) [facility] HospitalVITAMIN B12 AND [id number] 05:56:00 Test Item Value Reference Range Interpretation Comments VITAMIN B12 (BEAKER) (test code = 237 pg/mL 213-816 774) FOLATE (BEAKER) (test code = 362) 4.00 ng/mL >=7.00 L Paper Bag Making Machinist ID - EDASIBASIC METABOLIC [id number] 04:53:00 Test Item Value Reference Range Interpretation [...] S NOT APPLICABLE FOR DIALYSIS PATIEN TS. Paper Bag Making Machinist ID - [id number] 04:52:00 Test Item Value Reference Range Interpretation Comments PHOSPHORUS (BEAKER) (test code = 13.6 mg/dL 2.3-4.7 HH 604) Paper Bag Making Machinist ID - EDASICALCIUM, [id number] 04:49:00 Test Item Value Reference Range Interpretation Comments CALCIUM IONIZED (BEAKER) (test 0.96 mmol/L 1.12-1.27 L code = 698) PH, BLOOD (BEAKER) (test code = 7.23 1810) [id number] 04:42:00 Test Item Value Reference Range Interpretation Comments MAGNESIUM (BEAKER) (test code = 2.6 mg/dL 1.6-2.6 627) Paper Bag Making Machinist ID - EDASIHEPATIC FUNCTION [id number] 04:42:00 Test Item Value Reference Range Interpretation [...] (test code = 12 U/L 6-55 347) Paper Bag Making Machinist ID - EDASIPT/AGMK4299-12-69 04:41:00 Test Item Value Reference Range Interpretation [...] mechanical heart valves.CBC W/PLT COUNT & AUTO [id number] 04:37:00 Test Item Value Reference Range Interpretation [...] (BEAKER) (test code = 2801) LACTIC ACID, [id number] 04:29:00 Test Item Value Reference Range Interpretation Comments LACTATE BLOOD VENOUS (2) (BEAKER) 0.34 mmol/L 0.50-2.20 L (test code = 2872) Paper Bag Making Machinist ID - YEFRI, [id number] 04:16:00 Test Item Value Reference Range Interpretation Comments ABO Grouping (test code = 2588) O Rh Factor (test code = 2589) POS [facility]Symptomatic ONLY)2020-05-24 04:13:00 Test Item Value Reference Range Interpretation Comments SARS-COV2/RT-PCR Negative Not Detected, (test code = Negative, See 77454-9) external report for linked test SARS-COV-2 [facility] PERFORMING LAB (test code = 12958-9) FANTA (test code = Negative results do [...] of the Act. Fact Sheet for Healthcare Providers:https://www.[employer]/Documents/Xper t%20Xpress%20SARS%20CoV- 2/Fact%20Sheets/302-3802 %66HIOY-CJN-1%20HEALTHCA RE%20PROVIDERS%20FACT%20 SHEET.pdf Fact Sheet for Healthcare Patients:https://www.[employer] [place]/Documents/Xpert %20Xpress%20SARS%20CoV-2 /Fact%20Sheets/302-3801% 50GBHR-DZE-7%20PATIENT%2 0FACT%20SHEET.pdf Performing Laboratory:[facility] [place] [address] [facility]ARS[facility]OV2[facility] ([facility])2020-05-24 04:13:00 Test Item Value Reference Range Interpretation Comments SARS-COV2/RT-PCR (test code Negative Not Detected, Negative, = 6512010) See external report for linked test SARS-COV-2 PERFORMING LAB [facility] (test code = 0416015) Negative results do not preclude SARS-CoV-2 infection [...] of the Act.Fact Sheet for Healthcare Pro viders:https://www.[employer]/Documents/Xpert%20Xpress%20SARS%20CoV-2/Fact%20Sh eets/302-4342%63FOTH-OGQ-5%20HEALTHCARE%20PROVIDERS%20FACT%20SHEET.pdfFact Sheet for Healthcare Patients:https://www.[employer]/Documents/Xpert%20Xpress%20SARS%20CoV-2/Fact%20Sheets/302-7818%20SARS-COV -2%20PATIENT%20FACT%20SHEET.pdfPerforming Laboratory:[facility], [place] [address]AQ/[id number] 03:29:00 Test Item Value Reference Range Interpretation [...] is2.5-3.5 for patients wiht mechanical heart valves.TROPONIN [id number] 02:23:00 Test Item Value Reference Range Interpretation [...] failure, acidosis, acute neurological disease, and persistent tachyarrhythmia.Paper Bag Making Machinist ID Joseph FUNEZ WBASIC METABOLIC [id number] 02:22:00 Test Item Value Reference Range Interpretation [...] S NOT APPLICABLE FOR DIALYSIS PATIEN TS. Paper Bag Making Machinist ID Joseph DEE DEE [id number] 02:21:00 Test Item Value Reference Range Interpretation Comments PHOSPHORUS (BEAKER) (test code = 14.1 mg/dL 2.3-4.7 HH 604) Paper Bag Making Machinist ID - DEE DEE [id number] 02:16:00 Test Item Value Reference Range Interpretation Comments MAGNESIUM (BEAKER) (test code = 2.6 mg/dL 1.6-2.6 627) Paper Bag Making Machinist ID Joseph FUNEZ WHEPATIC FUNCTION [id number] 02:16:00 Test Item Value Reference Range Interpretation [...] (test code = 10 U/L 6-55 347) Paper Bag Making Machinist ID Joseph FUNEZ WB-TYPE NATRIURETIC FACTOR (BNP)2020-05-24 02:12:00 Test Item Value Reference Range Interpretation Comments B-TYPE NATRIURETIC PEPTIDE (BEAKER) 459 pg/mL 0-100 H (test code = 700) Paper Bag Making Machinist ID Joseph FUNEZ WCBC W/PLT COUNT & AUTO [id number] 02:11:00 Test Item Value Reference Range Interpretation [...] (BEAKER) (test code = 2801) LACTIC ACID, [id number] 02:03:00 Test Item Value Reference Range Interpretation Comments LACTATE BLOOD VENOUS (2) (BEAKER) 0.68 mmol/L 0.50-2.20 (test code = 2872) Paper Bag Making Machinist ID - DEE DEE ANNIEpecimejuan antonio slightly [...] MDReport Verified Date/Time: 05/24/2020 01:55:13 Blood gas, [id number] 01:37:00 Test Item Value Reference Range Interpretation Comments pH, Duc (test code = 2746-6) 7.27 7.32-7.42 L pCO2, Duc (test code = 755) 26 41- 51 mmHg L pO2, Duc (test code = 2705-2) 63 25- 40 mmHg H O2 Sat, Duc (test code = 2711-0) 89.7 % 40-70 H HCO3, Duc (test code = 74483-6) 12 mmol/L 21-29 L Base Excess, Duc (test code = -14.0 mmol/L -2-3 L 1927-3) Patient Temperature (test code = 37.0 C 8310-5) FIO2 (test code = 1819) 100 % Lab Interpretation (test code = Abnormal 04697-4) [facility] HospitalBLOOD GAS, [id number] 01:37:00 Test Item Value Reference Range Interpretation [...] (BEAKER) (test code = 1819) 100.0 % BZP-[id number] 00:00:00Ordered by an unspecified provider.[facility]OV2[facility] ([facility])2020-02-23 11:58:00 Test Item Value Reference Range Interpretation Comments SARS-COV2/RT-PCR (test code = Negative Not Detected, Negative 0270902) SARS-COV-2 PERFORMING LAB [facility] (test code = 7210627) Negative result for this test determines that [...] 564(g) of the Act.Fact Sheet for Healthcare Providers:https://www.[employer]/sites/default/files/product/documents/Fact_Shee d_WM_Fevubpvca_Ehbr_BDYP-LuS-7.pdfFact Sheet for Healthcare Patients:https://www.[employer]com/sites/default/files/product/ documents/Znyt_Leoks_Isjpocng_Dmwg_CRLT-CbR-4.pdfPerforming Laboratory:[facility] [place] [address]
[2020-07-20 18:27] LABS: Basophils % 0.5 % (0-1.3); Hematocrit 23.1 % (39.6-49.0); Lymphocytes % 17.8 % (15.3-44.8); MPV 7.8 fL (7.6-11.3); RBC Red Blood Cell Count 2.45 M/uL (4.33-5.43)
[2020-07-20 18:37] LABS: Potassium 4.2 mmol/L (3.5-5.1)
[2020-07-20] MEDS ORDERED: FENTANYL CITR 100 MCG/2 ML ONE (18:45)
--- NOTE | 2020-07-20 19:13 | EDPHYS ---
Physician Documentation [facility] Name: Cr Orellana Age: 55 yrs Sex: Male : 1965 Arrival Date: 07/20/2020 Time: 17:31 Bed 4 Private MD: ED Physician Luis Carlos Muniz HPI: 07/20 18:15 This 55 yrs old Male presents to ER via EMS with complaints of General jr8 Weakness. 18:15 Patient stated that after dialysis he was starting to feel weak again and was having jr8 increased pain to back and shoulders. Patient with history of chronic pain. Was admitted recently for hyperkalemia and general weakness. Severity of symptoms: At their worst the symptoms were moderate in the emergency department the symptoms are unchanged. The patient has experienced a previous episode. The patient has been recently seen by a physician:. Historical: - Allergies: 17:34 No Known Allergies; em - PMHx: 17:34 DIALYSIS MWF; Hypertension; seasonal allergies; em - Immunization history:: Adult Immunizations up to date. - Social history:: Smoking status: Patient denies any tobacco usage or history of. ROS: 18:15 Eyes: Negative for injury, pain, redness, and discharge, ENT: Negative for injury, jr8 pain, and discharge, Neck: Negative for injury, pain, and swelling, Cardiovascular: Negative for chest pain, palpitations, and edema, Abdomen/GI: Negative for abdominal pain, nausea, vomiting, diarrhea, and constipation, MS/Extremity: Negative for injury and deformity, Skin: Negative for injury, rash, and discoloration, Neuro: Negative for headache, numbness, tingling, and seizure. Positive for generalized weakness 18:15 Respiratory: Positive for shortness of breath. 18:15 Back: Positive for pain at rest, pain with movement. 18:15 Constitutional: Positive for fatigue. jr8 Exam: 18:15 Eyes: Pupils equal round and reactive to light, extra-ocular motions intact. Lids and jr8 lashes normal. Conjunctiva and sclera are non-icteric and not injected. Cornea within normal limits. Periorbital areas with no swelling, redness, or edema. ENT: Nares patent. No nasal discharge, no septal abnormalities noted. Tympanic membranes are normal and external auditory canals are clear. Oropharynx with no redness, swelling, or masses, exudates, or evidence of obstruction, uvula midline. Mucous membranes moist. Neck: Trachea midline, no thyromegaly or masses palpated, and no cervical lymphadenopathy. Supple, full range of motion without nuchal rigidity, or vertebral point tenderness. No Meningismus. Chest/axilla: Normal chest wall appearance and motion. Nontender with no deformity. No lesions are appreciated. Cardiovascular: Regular rate and rhythm with a normal S1 and S2. No gallops, murmurs, or rubs. Normal PMI, no JVD. No pulse deficits. Respiratory: Lungs have equal breath sounds bilaterally, clear to auscultation and percussion. No rales, rhonchi or wheezes noted. No increased work of breathing, no retractions or nasal flaring. Abdomen/GI: Soft, non-tender, with normal bowel sounds. No distension or tympany. No guarding or rebound. No evidence of tenderness throughout. Back: No spinal tenderness. No costovertebral tenderness. Full range of motion. Skin: Warm, dry with normal turgor. Normal color with no rashes, no lesions, and no evidence of cellulitis. MS/ Extremity: Pulses equal, no cyanosis. Neurovascular intact. Full, normal range of motion. Neuro: Awake and alert, GCS 15, oriented to person, place, time, and situation. Cranial nerves II-XII grossly intact. Motor strength 5/5 in all extremities. Sensory grossly intact. Vital Signs: 17:31 BP 172 / 94; Pulse 83; Resp 18; Temp 98.4(O); Pulse Ox 100% on R/A; em 18:10 BP 163 / 92; Pulse 88; Resp 20; Pulse Ox 98% on R/A; sv 18:35 BP 155 / 98; Pulse 85 MON; Resp 24; Pulse Ox 97% on R/A; sv 19:30 BP 151 / 70; Pulse 80; Resp 21; Pulse Ox 99% ; rr5 18:35 Sinus Rhythm sv MDM: 17:39 Patient medically screened. jr8 18:58 Data reviewed: vital signs, nurses notes, lab test result(s), EKG, radiologic studies, jr8 plain films. Data interpreted: Pulse oximetry: on room air is 97 %. Interpretation: normal. Counseling: I had a detailed discussion with the patient and/or guardian regarding: the historical points, exam findings, and any diagnostic results supporting the discharge/admit diagnosis, lab results, radiology results, the need for outpatient follow up, a family practitioner, to return to the emergency department if symptoms worsen or persist or if there are any questions or concerns that arise at home. ED course: Patients imaging similar to that in the past. Labs stable. K+ within normal range. BP stable. Weakness most likely attributed to dialysis. Patient with known chronic pain. Nothing noted to necessitate admission at this time. Explained to him if he were to have new symptoms or if they were to worsen to come back. . 07/20 17:39 Order name: CBC with Diff; Complete Time: 18:58 jr8 07/20 17:39 Order name: Basic Metabolic Panel; Complete Time: 18:58 jr8 07/20 17:39 Order name: EKG - Nurse/Tech; Complete Time: 18:06 jr8 07/20 17:46 Order name: EKG; Complete Time: 17:47 sv 07/20 17:48 Order name: XRAY Chest (1 view); Complete Time: 19:28 jr8 Administered Medications: 18:34 Drug: fentaNYL (PF) 50 mcg {Note: rass2.} Route: IVP; Site: right wrist; sv 19:30 Follow up: Response: No adverse reaction; Pain is decreased; RASS: Alert and Calm (0) rr5 Disposition: 07/20/20 19:12 Discharged to Home. Impression: Weakness, Other chronic pain. - Condition is Stable. - Discharge Instructions: Chronic Pain, Weakness, Fatigue. - Medication Reconciliation Form, Thank You Letter, Antibiotic Education, Prescription Opioid Use form. - Follow up: Private Physician; When: 2 - 3 days; Reason: Recheck today's complaints, Continuance of care, Re-evaluation by your physician. - Problem is new. - Symptoms have improved. Addendum: 07/25/2020 09:33 Co-signature as Attending Physician, Luis Carlos Muniz MD. r n Signatures: Dispatcher [employer] Valeria Fox RN RN sv Munoz, Edgar, RN RN em Nieto, Roman, MD MD rn Roszak, Josh, PA PA jr8 Jim Bird RN RN rr5 Corrections: (The following items were deleted from the chart) 07/20 18:17 18:15 Eyes: Negative for injury, pain, redness, and discharge, ENT: Negative for jr8 injury, pain, and discharge, Neck: Negative for injury, pain, and swelling, Cardiovascular: Negative for chest pain, palpitations, and edema, Abdomen/GI: Negative for abdominal pain, nausea, vomiting, diarrhea, and constipation, MS/Extremity: Negative for injury and deformity, Skin: Negative for injury, rash, and discoloration, Neuro: Negative for headache, weakness, numbness, tingling, and seizure, jr8 19:38 19:12 07/20/2020 19:12 Discharged to Home. Impression: Weakness; Other chronic pain. rr5 Condition is Stable. Forms are Medication Reconciliation Form, Thank You Letter, Antibiotic Education, Prescription Opioid Use. Follow up: Private Physician; When: 2 - 3 days; Reason: Recheck today's complaints, Continuance of care, Re-evaluation by your physician. Problem is new. Symptoms have improved. jr8
--- NOTE | 2020-07-20 19:13 | ER ---
Nurse's Notes [facility] Name: Cr Orellana Age: 55 yrs Sex: Male : 1965 Arrival Date: 07/20/2020 Time: 17:31 Bed 4 Private MD: Diagnosis: Weakness;Other chronic pain Presentation: 07/20 17:31 Chief complaint: EMS states: called out to dialysis center for generalized weakness, pt em had completed 3.5 hours worth of treatment but felt too weak to walk, pt was in the hospital last week for similar episode after feeling weak and falling. Coronavirus screen: Client denies travel out of the [place] in the last 14 days. Ebola Screen: Patient negative for fever greater than or equal to 101.5 degrees Fahrenheit, and additional compatible Ebola Virus Disease symptoms Patient denies exposure to infectious person. Patient denies travel to an Ebola-affected area in the 21 days before illness onset. No symptoms or risks identified at this time. Initial Sepsis Screen: Does the patient meet any 2 criteria? No. Patient's initial sepsis screen is negative. Does the patient have a suspected source of infection? No. Patient's initial sepsis screen is negative. Risk Assessment: Do you want to hurt yourself or someone else? Patient reports no desire to harm self or others. Onset of symptoms was July 20, 2020. 17:31 Method Of Arrival: EMS: [facility] em 17:31 Acuity: HUYEN 3 em Historical: - Allergies: 17:34 No Known Allergies; em - PMHx: 17:34 DIALYSIS MWF; Hypertension; seasonal allergies; em - Immunization history:: Adult Immunizations up to date. - Social history:: Smoking status: Patient denies any tobacco usage or history of. Screenin:34 Abuse screen: Denies threats or abuse. Nutritional screening: No deficits noted. em Tuberculosis screening: No symptoms or risk factors identified. Fall Risk None identified. Assessment: 17:31 General: Appears in no apparent distress. uncomfortable, Behavior is calm, cooperative. em Pain: Complains of pain in low back pain. Neuro: Level of Consciousness is awake, alert, obeys commands, Oriented to person, place, time, situation. Cardiovascular: Capillary refill < 3 seconds Patient's skin is warm and dry. Respiratory: Airway is patent Respiratory effort is even, unlabored, Respiratory pattern is regular, symmetrical. Derm: Skin is intact, is healthy with good turgor, Skin is pink, warm \T\ dry. Musculoskeletal: Capillary refill < 3 seconds, Range of motion: intact in all extremities. 18:35 Reassessment: Patient appears in no apparent distress at this time. No changes from sv previously documented assessment. Patient and/or family updated on plan of care and expected duration. Pain level reassessed. Patient is alert, oriented x 3, equal unlabored respirations, skin warm/dry/pink. 19:35 Reassessment: Patient appears in no apparent distress at this time. Patient is alert, rr5 oriented x 3, equal unlabored respirations, skin warm/dry/pink. discharge instruction given and explained without complaints made. Vital Signs: 17:31 BP 172 / 94; Pulse 83; Resp 18; Temp 98.4(O); Pulse Ox 100% on R/A; em 18:10 BP 163 / 92; Pulse 88; Resp 20; Pulse Ox 98% on R/A; sv 18:35 BP 155 / 98; Pulse 85 MON; Resp 24; Pulse Ox 97% on R/A; sv 19:30 BP 151 / 70; Pulse 80; Resp 21; Pulse Ox 99% ; rr5 18:35 Sinus Rhythm sv ED Course: 17:31 Patient arrived in ED. em 17:33 Triage completed. em 17:34 Arm band placed on. em 17:34 Patient has correct armband on for positive identification. Bed in low position. Call em light in reach. Side rails up X2. Adult w/ patient. surveillance monitor on. Pulse ox on. NIBP on. 17:38 Seferino Angeles PA is PHCP. jr8 17:38 Luis Carlos Munzi MD is Attending Physician. jr8 17:50 Flaquito Lovell, JUAN DANIEL is Primary Nurse. em 17:50 Inserted saline lock: 20 gauge in right wrist, using aseptic technique. Blood sv collected. Flushed right with 2 ml normal saline. 18:02 EKG done, by ED staff, reviewed by Seferino HOPPER. sv 18:06 Awaiting for x-ray. sv 18:56 Report given to Deven FRANCES and Jim FRANCES. sv 19:03 Primary Nurse role handed off by Flaquito Lovell, RN mw2 19:06 XRAY Chest (1 view) In Process Unspecified. EDMS 19:35 No provider procedures requiring assistance completed. IV discontinued, intact, rr5 bleeding controlled, No redness/swelling at site. Pressure dressing applied. Administered Medications: 18:34 Drug: fentaNYL (PF) 50 mcg {Note: rass2.} Route: IVP; Site: right wrist; sv 19:30 Follow up: Response: No adverse reaction; Pain is decreased; RASS: Alert and Calm (0) rr5 Outcome: 19:12 Discharge ordered by MD. escobedo 19:35 Discharged to home via wheelchair. rr5 19:35 Condition: stable 19:35 Discharge instructions given to patient, Instructed on discharge instructions, follow up and referral plans. Demonstrated understanding of instructions, follow-up care. 19:38 Patient left the ED. rr5 Signatures: Dispatcher [employer] Valeria Fox RN RN Flaquito Lovell RN RN Seferino Ball PA PA jr8 Stacey Mooney 2 Jim Bird RN RN rr5 Corrections: (The following items were deleted from the chart) 18:34 18:34 fentaNYL (PF) 50 mcg IVP in right wrist sv sv
--- NOTE | 2020-07-20 19:30 | RAD REPORT ---
EXAM DESCRIPTION: Aide Single View07/20/2020 7:05 pm CLINICAL HISTORY: Chest pain COMPARISON: July 15 FINDINGS: Mild bilateral pulmonary opacities. Heart is mildly enlarged. Central venous line in plac e IMPRESSION: Mild pulmonary edema
[2020-07-20 21:45] VITALS: TEMP 98.4
[2020-07-20 21:48] VITALS: BP 155/98; O2SAT 97
--- NOTE | 2020-07-22 06:11 | EKG ---
Test Date: 2020-07-20 Test Time: 18:02:31 Nursing Program Director: DANG MEASUREMENT RESULTS: Intervals: Rate: 87 HI: 120 QRSD: 74 QT: 386 QTc: 464 [place]: P: 71 HI: 120 QRS: 6 T: 22 INTERPRETIVE STATEMENTS: Normal sinus rhythm Normal ECG Compared to ECG 07/15/2020 13:38:09 No significant changes Electronically Signed On 07-22-20 06:09:19 ENVIRONMENT ARTIST by Thaddeus Llanes
== END 2020-07-20 19:38 | disposition home or self-care (01) ==
LOC: ER 17:28
DX: G89.29 Other chronic pain (principal); Z99.2 Dependence on renal dialysis; I10 Essential (primary) hypertension
CPT/HCPCS: 93005; 85025; 80048; 36415; 71045; 96374; 99285; J3010

== ENCOUNTER 2020-07-24 12:10 | Inpatient (IN) | payer OTHER ==
--- OUTSIDE RECORDS SUMMARY | 2020-07-24 12:13 | XMS REPORT | Clinical Summary ---
:1965 Author Organization [facility] Address [address] [place] [address] Care Team Providers Name Role Phone Unavailable [...] (end st age renal disease) on dialysis ([facility]); 06/03/2020 Severe sepsis ([facility]); Jeff Nicholas acido sis; Christopher Hematoma of thi gh, right, initial encounter; MD Donna PINA (acute kidney injury) ([facility]); Vee Hernandez Thrombocytop enia ([facility]); MD Corrine Anemia, unspecified type; Delia Matthews Gastroesophalice geal reflux disease, unspecified whether esophagitis present; MD Akilah Epigastric pain; Mustapha, Acute blood los s anemia Emanuel Valdivia MD 05/23/2020 Telephone Critical Care Santy Cardona, transfer Medicine Michael Ames MD 02/22/2020 Lab Requisition Lab after 07/24/2019 Immunizations Name Administration Dates Next Due Influenza [...] procedure are in the results section. after 07/24/2019 Results HEMODIALYSIS INPATIENT (06/03/2020 12:01 PM CDT) [...] Pathologist Sig nature % Neutros 62 % [facility] % Lymphs 27 % [facility] % Monos 5 % [facility] % Myelo 3 (H) 0 - 0 % [facility] % Bands 3 0 - 10 % [facility] # Neutros 7.19 (H) 1.78 - 5.38 K/ul [facility] # Lymphs 3.13 1.32 - 3.57 K/ul [facility] # Monos 0.58 0.30 - 0.82 K/uL [facility] # Myelo 0.35 (H) 0.00 - 0.00 K/uL [facility] # Bands 0.35 0.00 - 0.80 K/uL [facility] Total Counted 100 [facility] nRBC (manual) 1 (H) 0 - 0 /100 WBC [facility] WBC Morphology Normal [facility] Large Platelet Present [facility] Anisocytosis 1+ few [facility] Microcytes 1+ few [facility] Artifact Present [facility] Platelet Conc Decreased [facility] Specimen Blood Narrative Performed At Relationship Advisor ID - Chris Zack [facility] User comments: Slide comments: Performing Organization Address City/State/Zipcode Phone Number [address] [address] CENTER PT/aPTT (06/03/2020 4:07 AM CDT)Only the most recent of12 resultswithin the time period is included. Pathologist Sig nature Protime 14.1 11.9 - 14.2 seconds [facility] INR 1.12 <=5.90 [facility] PTT 38.0 (H) 22.5 - 36.0 seconds [facility] Specimen Blood Narrative Performed At Effective 01/16/2019: PT Reference Range [facility] Change New: 11.9-14.2 Previous: 11.7-14.7 RECOMMENDED COUMADIN/WARFARIN INR THERAPY RANGES STANDARD DOSE: 2.0-3.0 Includes: PROPHYLAXIS for venous thrombosis, systemic embolization; TREATMENT for venous thrombosis and/or pulmonary embolus. HIGH RISK: Target INR is 2.5-3.5 for patients wiht mechanical heart valves. Performing Organization Address City/State/Zipcode Phone Number [address] [address] CENTER Calcium, Ionized (06/03/2020 4:07 AM CDT)Only the most recent of4 resultswithin the time period is included. Pathologist Sig nature Calcium, Ion 1.17 1.12 - 1.27 mmol/L [facility] pH, Blood 7.44 [facility] Specimen Blood Performing Organization Address City/State/Zipcode Phone Number [facility] [address] [place] [address] CENTER CBC with platelet count + automated diff (06/03/2020 4:07 AM CDT)Only the most recent of13 resultswithin the time period is included. Pathologist Sig nature WBC 11.6 (H) 3.5 - 10.5 K/L [facility] RBC 2.46 (L) 4.63 - 6.08 M/L [facility] Hemoglobin 7.9 (L) 13.7 - 17.5 GM/DL [facility] Hematocrit 23.2 (L) 40.1 - 51.0 % [facility] MCV 94.3 (H) 79.0 - 92.2 fL [facility] MCH 32.1 25.7 - 32.2 pg [facility] MCHC 34.1 32.3 - 36.5 GM/DL [facility] RDW 15.9 (H) 11.6 - 14.4 % [facility] Platelets 79 (L) 150 - 450 K/CU MM [facility] MPV 10.8 9.4 - 12.4 fL [facility] nRBC 1 (H) 0 - 0 /100 WBC [facility] Specimen Blood Performing Organization Address City/State/Zipcode Phone Number [facility] [address] [place] [address] CENTER Phosphorus (06/03/2020 4:07 AM CDT)Only the most recent of7 resultswithin the time period is included. Pathologist Sig nature Phosphorus 4.3Comment: 2.3 - 4.7 mg/dL [facility] Specimen slightly [facility] Specimen Blood Narrative Performed At Relationship Advisor ID - BONILLA [facility] Performing Organization Address [facility]/Zipcode Phone Number [facility] [address] [place] [address] CENTER Magnesium (06/03/2020 4:07 AM CDT)Only the most recent of12 resultswithin the time period is included. Pathologist Sig nature Magnesium 2.0Comment: Specimen 1.6 - 2.6 mg/dL [facility] Specimen Blood Narrative Performed At Relationship Advisor ID - [facility] Performing Organization Address [facility] Phone Number [address] [address] [place] Hepatic function panel (06/03/2020 4:07 AM CDT)Only the most recent of12 resultswithin the time period is included. Protein, Total 6.5Comment: 6.0 - 8.3 [facility] Specimen slightly gm/dL [facility] Albumin 3.3 (L)Comment: 3.5 - 5.0 [facility] Specimen slightly g/dL [facility] Total Bilirubin 0.3Comment: 0.2 - 1.2 [facility] Specimen slightly mg/dL [facility] Bilirubin, Direct 0.1Comment: 0.1 - 0.5 [facility] Specimen slightly mg/dL [facility] Alkaline 71 40 - 150 U/L [facility] Phosphatase [facility] AST 42 (H)Comment: 5 - 34 U/L [facility] Specimen slightly [facility] ALT 14Comment: 6 - 55 U/L [facility] Specimen slightly [facility] Specimen Blood Narrative Performed At Relationship Advisor ID - BONILLA [facility] Performing Organization Address City/State/Zipcode Phone Number [facility] [address] [place] [address] CENTER Comprehensive metabolic panel (06/03/2020 4:07 AM CDT)Only the most recent of4 resultswithin the time period is included. Protein, Total 6.5Comment: 6.0 - 8.3 [facility] Specimen slightly gm/dL [facility] Albumin 3.3 (L)Comment: 3.5 - 5.0 [facility] Specimen slightly g/dL [facility] Alkaline 71 40 - 150 U/L [facility] Phosphatase [facility] Total Bilirubin 0.3Comment: 0.2 - 1.2 [facility] Specimen slightly mg/dL [facility] Sodium 134 (L) 136 - 145 [facility] meq/L [facility] Potassium 5.1Comment: 3.5 - 5.1 [facility] Specimen slightly meq/L [facility] Chloride 96 (L) 98 - 107 [facility] meq/L [facility] CO2 24 22 - 29 meq/L [facility] BUN 60 (H) 7 - 21 mg/dL [facility] Creatinine 9.02 (H)Comment: 0.57 - 1.25 [facility] Specimen slightly mg/dL [facility] Glucose 89 70 - 105 [facility] mg/dL [facility] Calcium 9.2 8.4 - 10.2 [facility] mg/dL [facility] AST 42 (H)Comment: 5 - 34 U/L [facility] Specimen [facility] ALT 14Comment: 6 - 55 U/L [facility] EGFR 6Comment: mL/min/1.73 [facility] ESTIMATED GFR IS sq [facility] NOT ACCURATE MEDICAL CENTER CREATININE CLEARANCE IN PREDICTING GLOMERULAR FILTRATION RATE. ESTIMATED GFR IS NOT APPLICABLE FOR DIALYSIS PATIENTS. Specimen Blood Narrative Performed At Relationship Advisor ID - BONILLA Moore [facility] Performing Organization Address City/[facility]/Zipcode Phone Number [facility] [address] [place] [address] CENTER Prepare Leuko-Red RBC (06/02/2020 11:54 PM CDT)Only the most recent of3 results within the time period is included. Pathologist Sig nature CROSSMATCH COMPATIBLE SAFETRACE TX Unit ABO O Pos SAFETRACE TX UNIT NUMBER [id number] SAFETRACE TX Status TX_TIMEINCHART SAFETRACE TX Blood Bank Product RED BLOOD CELLS SAFETRACE TX PRODUCT CODE [id number] SAFETRACE TX Specimen Other Performing Organization Address [facility] [place] [facility] Phone Number [facility] [place] Basic Metabolic Panel (06/02/2020 3:56 AM CDT)Only the most recent of12 results within the time period is included. Sodium 135 (L) 136 - 145 meq/L [facility] Potassium 4.7 3.5 - 5.1 meq/L [facility] Chloride 98 98 - 107 meq/L [facility] CO2 25 22 - 29 meq/L [facility] BUN 36 (H) 7 - 21 mg/dL [facility] Creatinine 6.44 (H) 0.57 - 1.25 [facility] mg/dL [facility] Glucose 96 70 - 105 mg/dL [facility] Calcium 8.6 8.4 - 10.2 [facility] mg/dL [facility] EGFR 9Comment: ESTIMATED mL/min/1.73 sq [facility] GFR IS NOT [facility] ACCURATE [place] CREATININE CLEARANCE IN PREDICTING GLOMERULAR FILTRATION RATE. ESTIMATED GFR IS NOT APPLICABLE FOR DIALYSIS PATIENTS. Specimen Blood Narrative Performed At Relationship Advisor ID - MARQUIS [facility] Performing Organization Address City/[facility] Phone Number [address] [phone] CENTER Transfuse Leuko-Red RBC (06/01/2020 10:33 PM CDT)Only the most recent of3 resultswithin the time period is included.POC-Glucose meter (06/01/2020 10:11 PM CDT) POC-Glucose Meter 99 70 - 110 mg/dL [facility] Comment: [facility] : TESTED AT [address], [address] CENTER : Relationship Advisor/State Game Warden ID = [id number] for Jerson Morales Specimen Blood Performing Organization Address [facility]/Zipcode Phone Number [address] [address] CENTER Hepatitis B surface antibody (06/01/2020 7:23 PM CDT) Pathologist Sig nature Hep B S Ab 27.2 (H) <8.0 mIU/mL [facility] Specimen Blood Narrative Performed At Relationship Advisor ID - DB [facility] Performing Organization Address City/[facility]/Zipcode Phone Number [address] [address] CENTER Type and screen, automated (05/31/2020 9:50 AM CDT)Only the most recent of2 resultswithin the time period is included. Pathologist Sig nature ABO/RH AUTOMATED O POSITIVE [facility] (BEAKER) [facility] Ab Scrn NEGATIVE [facility] Specimen Blood Performing Organization Address [facility]/Zipcode Phone Number [address] [address] Hemoglobin and hematocrit (05/31/2020 9:50 AM CDT)Only the most recent of6 resultswithin the time period is included. Pathologist Sig nature Hemoglobin 7.2 (L) 13.7 - 17.5 GM/DL [facility] Hematocrit 21.2 (L) 40.1 - 51.0 % [facility] Specimen Blood Narrative Performed At Relationship Advisor ID - [id number] [facility] Performing Organization Address [facility] Phone Number [facility] [address] [place] [address] [place] Hepatitis panel, acute (05/28/2020 2:19 PM CDT) Pathologist Sig nature Hep A IgM Nonreactive Nonreactive [facility] Hep B C IgM Nonreactive Nonreactive [facility] Hepatitis C Ab Reactive (A) Nonreactive [facility] HBsAg Screen Nonreactive Nonreactive [facility] Specimen Blood Narrative Performed At Relationship Advisor ID - DB [facility] Performing Organization Address [facility] [place] Phone Number [address] [address] CENTER D-dimer (05/28/2020 3:59 AM CDT)Only the most recent of3 resultswithin the time period is included. Pathologist Sig nature D-Dimer, Quant 3.35 (H) <0.50 MG/L FEU [facility] Specimen Blood Narrative Performed At Intended Use: The D-Dimer Assay can be used [facility] to aid in the diagnosis of Deep Vein Thrombosis (DVT) and Pulmonary Embolism Disease (PED). In patients with low pre-test probability, various studies concerning STA Liatest D-dimer test have reported that with a cutoff value of 0.50 MG/L FEU, the Negative Predictive Value (NPV) regarding the exclusion of thrombosis is within 95-100% range. Performing Organization Address City/[facility] Phone Number [facility] [address] [place] [address] [place] REPORT OF PROCEDURE - ENDOSCOPY URL (05/27/2020 8:30 AM CDT) Narrative Performed At This result has an attachment that is no t available. Tissue Exam (05/27/2020 8:20 AM CDT) Case Report Surgical Pathology Report Case: [id number] [facility] Authorizing Provider: Myrna Tijerina MD Collected: 05/27/2020 08:20 AM [facility] Ordering Location: [address] Received: 05/27/2020 02:50 PM [facility] SERVICE Pathologist: Rosa Cisneros MD Specimens: A) - Biopsy, G astric, random biopsies R/O H. pylori B) - Biop sy, Gastroesophageal Junction, random biopsies R/O Islas's DIAGNOSIS A. 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 GASTROESOPHAGEAL JUNCTION, ENDOSCOPIC MUCOSAL BIOPS IES - SQUAMOCOLUMNAR MUCOSA WITH ACTIVE CARDITIS - NEGATIVE FOR SPECIALIZED ISLAS METAPLASIA Signing Pathologist Direct Phone Line: [phone] COMMENT . [facility] CPT Code(s) 57919 x2, [address]19 [facility] CLINICAL HISTORY Anemia [facility] SPECIMEN SOURCE A. Random gastric biopsy, rule out H. Pylori [facility] B. Random GE junction biopsy, rule out Islas's [facility] GROSS DESCRIPTION A. Received in formalin labe led with the patient's name, medical record number and "gastric biopsy" are two pieces of rees-white mucosa- covered tissue that measure 0.5 x 0.3 x 0.2 cm in aggregate. The sp [facility] ecimen is submitted in toto following filtration in ca ssette A1. [facility] B. Received in formalin labe led with [...] negative. There is no dysplasia or carcinoma. [facility] [place] B. Section shows gastroesoph ageal junctional mucosa and squamous (eosphageal) mucosa. The squamous (esophageal) component of GE junctional mucosa shows intercellular edema and elongated vascular papilla e and the columnar mucosa sh ows chronic inflammation with rare neutrophils. No goblet cell metaplasia is seen. SPECIAL STUDIES The interpretation of this c ase included the use of immunohistochemistry or special stains. [facility] Control Slides Examined: In -house known positive controls were evaluated along with the test tissue. These control slides run alongside of the patients sample show appropriate staining. [facility] antony and negative controls when available are evaluated Immunohistochemistry technic al testing was performed at [facility], Pathology Laboratory where it was developed and its performance characteristics were determined. It has not be en cleared or approved by [facility] U.S. Food and Drug Administration. The FDA has determined that such clearance or approval is not necessary. The test is used for clinical purposes. It should not be regarde d as investigational or for research. This laboratory is certified under the Clinical Laboratory Improvement Amendments of 1988 (CLIA-88) as qualified to perform high complexity clinical laboratory testing. Gross assessment [facility] was performed at [facility] Pathology, [address] [place] [id number], Technical [facility] component was [facility] performed at Pathology, [address] [place] [id number], Professional [facility] component was [facility] performed at Pathology, [address] [place] [id number], Specimen Tissue - Gastric biopsy sample (specimen ) Tissue specimen (specimen) - Biopsy, Gas troesophageal Junction Performing Organization Address City/State/Zipcode Phone Number [facility] [address] [place] [address] CENTER Manual Differential (05/27/2020 3:40 AM CDT) % Neutros (manual) 63 % [facility] % Lymphs (manual) 17 % [facility] % Monos (manual) 4 % [facility] % Eos (manual) 3 % [facility] % Baso (manual) 1 % [facility] % Metamyelo (manual) 3 (H) 0 - 0 % [facility] % Bands (manual) 3 0 - 10 % [facility] % Atypical Lymphs 6 (H) 0 - 0 % [facility] # Neutros (manual) 7.12 1.80 - 8.00 [facility] # Lymphs (manual) 1.92 1.48 - 4.50 [facility] # Monos (manual) 0.45 0.00 - 1.30 [facility] # Eos (manual) 0.34 0.00 - 0.50 [facility] # Baso (manual) 0.11 0.00 - 0.20 [facility] # Metamyelo (manual) 0.34 (H) 0.00 - 0.00 [facility] # Bands (manual) 0.3 0.0 - 0.8 KL [facility] # Atypical Lymphs 0.68 (H) 0.00 - 0.00 [facility] Total Counted 100 [facility] Bands plus Segmented 7.46 [facility] nRBC (manual) 1 (H) 0 - 0 /100 WBC [facility] WBC Morphology Normal [facility] Platelet Morphology Normal [facility] Anisocytosis 1+ few [facility] Ovalocytes 1+ few [facility] Specimen Blood Performing Organization Address City/[facility] Phone Number [address] [address] CENTER TRANSFUSION SERVICE REPORT - SCAN (05/26/2020 6:21 PM CDT)Only the most recent of2 resultswithin the time period is included. Narrative Performed At This result has an attachment that is no t available. Hepatitis C PCR, Quantitative (05/26/2020 12:26 PM CDT) HCV PCR, HCV RNA not HCV RNA not [facility] Quantitative detected detected [facility] Specimen Blood Narrative Performed At This test uses a Real-Time Polymerase Chain [facility] Reaction (RT-PCR) methodology and was performed using [employer] Ampliprep/[employer] TaqMan HCV test kit version 2.0 ([employer] Reportable range for this assay is 15 - 100,000,000 IU per mL (1.18 - 8.00 Log IU/mL). Performing Organization Address [facility] Phone Number [address] [address] CENTER TSH/Free T4 If Indicated (05/25/2020 7:14 PM CDT) Pathologist Sig nature TSH 3.581 0.350 - 4.940 uIU/mL [facility] Specimen Blood Narrative Performed At Relationship Advisor ID - JR F [facility] Performing Organization Address City/[facility]/Zipcode Phone Number [address] [address] CENTER Prothrombin time/INR (05/25/2020 11:42 AM CDT) Pathologist Sig nature Protime 14.6 (H) 11.9 - 14.2 seconds [facility] INR 1.17 <=5.90 [facility] Specimen Blood Narrative Performed At Effective 01/16/2019: PT Reference Range [facility] Change New: 11.9-14.2 Previous: 11.7-14.7 RECOMMENDED COUMADIN/WARFARIN INR THERAPY RANGES STANDARD DOSE: 2.0-3.0 Includes: PROPHYLAXIS for venous thrombosis, systemic embolization; TREATMENT for venous thrombosis and/or pulmonary embolus. HIGH RISK: Target INR is 2.5-3.5 for patients wiht mechanical heart valves. Performing Organization Address City/[facility] Phone Number [address] [address] CENTER Lactate dehydrogenase (LDH) (05/25/2020 11:42 AM CDT) Pathologist Sig nature LDH 341 (H) 125 - 220 U/L [facility] Specimen Blood Narrative Performed At Relationship Advisor ID - JR Crump [facility] Performing Organization Address City/[facility] Mex[facility]ode Phone Number [address] [address] CENTER Peripheral Blood Smear - Path Review (05/25/2020 3:42 AM CDT) Pathologist Review Macrocytic anemia, [facility] anisopoikilocytosis, MEDICAL CENTER with rare schistocytes (0.8 per HPF). WBCs with mild left shift, including occasional myeloid precursors, no blasts seen. Few hypersegmented neutrophils. Thrombocytopenia with unremarkable morphology. Pathologist: Maddie Leon [facility] Bebeto Dsouza [facility] Specimen Blood Performing Organization Address City/[facility] Phone Number [address] [address] CENTER Troponin I (05/25/2020 3:42 AM CDT)Only the most recent of5 resultswithin the time period is included. Pathologist Sig nature Troponin I 0.46 (HH) 0.00 - 0.03 ng/mL [facility] Specimen Blood Narrative Performed At Troponin I (TnI) levels must be interpreted [facility] in the context of the presenting symptoms and the clinical findings. Elevated TnI levels indicate myocardial damage, but are not specific for ischemic heart disease. Elevated TnI levels are seen in patients with other cardiac conditions (including myocarditis and congestive heart failure), and slight TnI elevations occur in patients with other conditions, including sepsis, renal failure, acidosis, acute neurological disease, and persistent tachyarrhythmia. Relationship Advisor ID - DB Performing Organization Address [facility] Phone Number [address] [address] CENTER Lactic acid, venous (05/25/2020 3:42 AM CDT)Only the most recent of3 results within the time period is included. Pathologist Sig nature Lactate, Venous 0.42 (L) 0.50 - 2.20 [facility] mmol/L [facility] Specimen Blood Narrative Performed At Relationship Advisor ID - DB [facility] Performing Organization Address [facility] Phone Number [address] [address] CENTER Reticulocyte count (05/25/2020 3:42 AM CDT) Pathologist Sig nature % Retic 1.5 0.5 - 1.8 % [facility] Specimen Blood Narrative Performed At Relationship Advisor ID - [id number] [facility] Performing Organization Address [facility] Phone Number [address] [address] CENTER Iron, TIBC, % sat. (without ferritin) (05/25/2020 3:41 AM CDT) Pathologist Sig nature Iron 118.0 40.0 - 160.0 [facility] ug/dL [facility] TIBC 170 (L) 250 - 450 ug/dL [facility] Iron % Saturation 69 (H) 20 - 55 % [facility] Specimen Blood Narrative Performed At Relationship Advisor ID - MARQUIS [facility] Performing Organization Address City/[facility]/Zipcode Phone Number [facility] [address] [place], [place] [phone] CENTER Haptoglobin (05/25/2020 3:41 AM CDT) Pathologist Sig nature Haptoglobin 172 14 - 258 mg/dL [facility] Specimen Blood Narrative Performed At Relationship Advisor ID - JR Crump [facility] Performing Organization Address City/[facility]/Zipcode Phone Number [facility] [address] [place] [address] CENTER Ferritin (05/25/2020 3:41 AM CDT) Pathologist Sig nature Ferritin 10,294.32 (H) 5.00 - 275.00 [facility] ng/mL [facility] Specimen Blood Narrative Performed At Relationship Advisor ID - MARQUIS [facility] Performing Organization Address City/[facility] Phone Number [facility] [address] [place] [phone] [place] XR chest 1 view portable / bedside [...] 4:42:11 Performing Organization Address City/State/Zipcode Phone Number [facility] US testicular (scrotum) (05/25/2020 1:24 AM CDT) Specimen Narrative Performed At FINAL REPORT Toothpick TECHNIQUE: Grayscale, color Doppler, and spectral Doppler [...] Pathologist Sig nature HBsAg Screen Nonreactive Nonreactive [facility] Specimen Blood Narrative Performed At Specimen is considered negative for HBsAg. [facility] Performing Organization Address City/State/Zipcode Phone Number [facility] [address] [place] [address] CENTER Drug Test, General Toxicology, Urine (05/24/2020 6:40 PM CDT) Acetone([facility]) None Detected [facility] Methanol([facility]) None Detected [facility] Drug Test,Genrl see note [facility] Tox,U Comment: [facility]POR[facility] The following compounds were detected: Cotinine (Nicotine Metabolite) Morphine Acetaminophen Hydromorphone Hydrocodone Benzoylecgonine (Cocaine Metabolite) Cyclobenzaprine For a list of compounds and limits of detection go to: http://education.InstaGIS/faq/JIB589 ISOPROPANOL None Detected [facility] ETHANOL None Detected [facility] Comment: INC[facility]PORATED Volatile Limit of Detectio n: 5 mg/dL This test was developed and its analytical performance characteristics have been determined by [employer] [place], [place]. It has not been cleared or approved by the U.S. Food and Drug Administration. This assay has been validated pursuant to the CLIA regulations and is used for clinical purposes. Specimen Urine Narrative Performed At Performing Lab [facility] [address] [facility], [address] [facility] [place] [address] Mckenna Lopez MD, PhD Performing Organization Address City/[facility]/Zipcode Phone Number [facility] [place] [address] [facility] [id number] [facility] B-type Natriuretic Factor (BNP) (05/24/2020 5:32 PM CDT)Only the most recent of 2 resultswithin the time period is included. Pathologist Sig nature BNP 202 (H) 0 - 100 pg/mL [facility] Specimen Blood Narrative Performed At Relationship Advisor ID - NATASHA [facility] Performing Organization Address City/State/Zipcode Phone Number [facility] [address] [place] [address] CENTER 2D Echo W/Doppler(CW/PW/Color) (05/24/2020 9:17 AM CDT) Pathologist Sig nature Ejection Fraction [facility] ECHO [facility] Specimen Narrative Performed At Transthoracic Echocardiography Report (T TE) [facility] Demographics Patient Name THIERRY PADILLA Date of Study 05/24/2020 KYLIE Gender Male Visit Number [id number] Race Unknown Room Number 7217 Number Date of 1965 Referring Physician Age 55 year(s) 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 Nieves Lopes Logistics Planner Owen Valdivia Interpreting Renato barr Physician Procedure [...] Study 05/24/2020 KYLIE Gender Male Visit Number [id number] Race Unknown Room N [facility] 7217 Number Date of 1965 Referr ing Physician Age 55 year(s) 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 Moses Logistics Planner Owen Valdivia Intermckenna reting Greg Roche MD [...] CDT) Pathologist Sig nature ABO Grouping O [facility] [place] Rh Factor POS [facility] Specimen Blood Performing Organization Address City/[facility]/Zipcode Phone Number [address] [address] Vitamin B12 and Folate (05/24/2020 3:48 AM CDT) Pathologist Sig [facility] Vitamin B12 237 213 - 816 pg/mL [facility] Folate 4.00 (L) >=7.00 ng/mL [facility] Specimen Blood Narrative Performed At Relationship Advisor ID - MARQUIS [facility] Performing Organization Address City/[facility] Phone Number [address] [address] [place] HIV-1 Antigen with HIV-1/2 Antibody (05/24/2020 3:48 AM CDT) Pathologist Sig [facility] HIV-1 Antigen with Nonreactive Nonreactive [facility] HIV 1&2 Antibody [facility] Specimen Blood Performing Organization Address City/[facility] Phone Number [address] [address] [place] Hemoglobin A1c (05/24/2020 3:48 AM CDT) Pathologist Sig [facility] Hemoglobin A1C 5.8 4.3 - 6.1 % [facility] Specimen Blood Performing Organization Address City/[facility] Phone Number [address] [address] CENTER Blood Culture - Routine (Right Venipuncture) (05/24/2020 3:34 AM CDT)Only the most recent of2 resultswithin the time period is included. Pathologist Sig nature Result No growth in 5 days [facility] Specimen Blood - Entire right upper arm (body str ucture) Performing Organization Address City/State/Zipcode Phone Number [facility] [address] [place] [address] CENTER SARS-CoV2/RT-PCR (Symptomatic ONLY) (05/24/2020 2:33 AM CDT)Only the most recent of2 resultswithin the time period is included. SARS-COV2/RT-PCR Negative Not Detected, [facility] Negative, See [facility] external report CENTER for linked test [facility]COV[facility]2 [facility] Specimen Other - Nasopharyngeal wall structure (b alicia structure) Narrative Performed At Negative results do not preclude SARS-CoV-2 [facility] infection and should not be used as [...] the Act. Fact Sheet for Healthcare Providers: https://www.mySupermarket.[employer]/Documents/Xpert%20Xpre ss%20SARS%20CoV-2/Fact%20Sheets/302-0755%20SAR S-COV-2%20HEALTHCARE%20PROVIDERS%20FACT%20SHEE T.pdf Fact Sheet for Healthcare Patients: https://www.[employer]Documents/Xpert%20Xpre ss%20SARS%20CoV-2/Fact%20Sheets/302-3801%20SAR S-COV-2%20PATIENT%20FACT%20SHEET.pdf Performing Laboratory: [facility] [address] [place] [address]. [place] [address] Performing Organization Address City/[facility]/Zipcode Phone Number [facility] [address] [place], [place] [phone] [place] Blood gas, venous (05/24/2020 1:28 AM CDT) Pathologist Sig nature pH, Raquel 7.27 (L) 7.32 - 7.42 [facility] pCO2, Raquel 26 (L) 41 - 51 mmHg [facility] pO2, Raquel 63 (H) 25 - 40 mmHg [facility] O2 Sat, Raquel 89.7 (H) 40.0 - 70.0 % [facility] HCO3, Raquel 12 (L) 21 - 29 mmol/L [facility] Base Excess, Raquel -14.0 (L) -2.0 - 3.0 [facility] mmol/L [facility] Patient Temperature 37.0 C [facility] FIO2 100.0 % [facility] Specimen Blood Performing Organization Address City/[facility] Phone Number [facility] [address] [place] [address] [place] EKG-SCANNED (05/24/2020) Narrative Performed At This result has an attachment that is no t available. Ordered by an unspecified provider. after 07/24/2019 Advance Directives For more information, please contact: [phone] Code Status Date Activated Date Inactivated Comments Full Code 05/24/2020 1:02 AM 06/03/2020 4:31 PM This code status was determined by: Patient
--- OUTSIDE RECORDS SUMMARY | 2020-07-24 12:17 | XMS REPORT | Continuity of Care Document ---
:1965 Author Organization [facility] t Address [address] [place] [address] Care Team Providers Name Role Phone Kwaku Miguel MD Attending Clinician [phone] Donan Nicholas MD Attending Clinician David LOWERY, P. Attending Clinician Akilah Matthews MD Attending Clinician Shea Luciano MD Attending Clinician Akbar Monsalve MD Attending Clinician Unavailable Ariana LOWERY, Yaakov Attending Clinician KWAKU MIGUEL Attending Clinician Unavailable Verónica Delgadillo DO Attending Clinician KWAKU MIGUEL Admitting Clinician Unavailable Payers Payer Name Policy Type Policy Effective Date Expiration Date Sour ce Number MEDICAREMEDICARE A [id number] 2020 ANALILIA [place] OtfodamcEV2840/08/2019- 00:00:00 - Medical PresentMedicare Center MEDICAIDMEDICAID OF [id number] 2020 ANALILIA [place] [id number] 00:00:00 - Medical 0-PresentMedicaid Center Problems Condition [...] Allergy 0-04 [facility] - 00:[facility]: Medical 00 [place] Social History Social Habit Start Date Stop Date Quantity Comments Source Sex Assigned At [facility] Smoking Status Start Date Stop Date Source Former smoker 2020-05-27 00:00:00 2020-05-27 00:00:[address] [facility] Medications Ordered Filled Start Stop Current [...] Source Name Name Influenza Four-QIV 2020-05-25 [address] [facility] PF 3YR+ 00:00:00 Medical Center Vital Signs Vital Name Observation Time Observation Value Comments Source Systolic blood 2020-06-03 11:45:00 129 mm[Hg] [facility] Diastolic blood 2020-06-03 11:45:00 81 mm[Hg] [facility] Heart rate 2020-06-03 11:45:00 80 /min [facility] Body temperature 2020-06-03 11:45:00 36.72 Gissell [facility] Respiratory rate 2020-06-03 11:45:00 19 /min [facility] Oxygen saturation in 2020-06-03 11:45:00 97 /min [facility] Arterial blood by Medical Ce nter Pulse oximetry Body weight 2020-06-03 04:52:00 69.9 kg [facility] BMI 2020-06-03 04:52:00 24.88 kg/m2 [facility] Body height 2020-05-24 00:30:00 167.6 cm [facility] Procedures Procedure Date / Time Performed Performing Clinician Sourc e HEMODIALYSIS INPATIENT 2020-06-03 12:01:00 Marlo Hernandez [facility] MAGNESIUM 2020-06-03 04:07:[address] [facility] PT/APTT 2020-06-03 04:07:[address] [facility] HEPATIC FUNCTION PANEL 2020-06-03 04:07:[address] [facility] CALCIUM, IONIZED 2020-06-03 04:07:00 David [facility] COMPREHENSIVE METABOLIC 2020-06-03 04:07:00 David [facility] PHOSPHORUS 2020-06-03 04:07:00 David [facility] CBC W/PLT COUNT & AUTO 2020-06-03 04:07:00 Kanwal Sonido [facility] (CELLAVISION MANUAL DIFF) 2020-06-03 04:07:00 Sonido Schofield [facility] PREPARE LEUKO-REDUCED RBC 2020-06-02 23:54:00 Delia Matthews [facility] BASIC METABOLIC PANEL (7) 2020-06-02 03:56:00 Sonido Schofield [facility] MAGNESIUM 2020-06-02 03:56:00 Kanwal [facility] PT/APTT 2020-06-02 03:56:00 Kanwal [facility] HEPATIC FUNCTION PANEL 2020-06-02 03:56:[address] [facility] CBC W/PLT COUNT & AUTO 2020-06-02 03:56:00 Sonido Schofield [facility] (CELLAVISION MANUAL DIFF) 2020-06-02 03:56:00 Sonido Schofield [facility] TRANSFUSE LEUKO-REDUCED 2020-06-01 22:33:30 Delia Matthews [facility] RED BLOOD CELLS [facility] POCT-GLUCOSE METER 2020-06-01 22:11:00 Delia Matthews [facility] HEPATITIS B SURFACE 2020-06-01 19:23:00 [facility] BASIC METABOLIC PANEL (7) 2020-06-01 04:32:00 Sonido Schofield [facility] MAGNESIUM 2020-06-01 04:32:[facility] 2020-06-01 04:32[facility] HE[facility] FUN[facility] PANEL 2020-06-01 04:32:00 [facility] CBC W/PLT COUNT & AUTO 2020-06-01 04:32:00 [facility] (CELLAVISION MANUAL DIFF) 2020-06-01 04:32:00 [facility] HEMOGLOBIN AND HEMATOCRIT 2020-05-31 09:50:00 Cassie [facility] TYPE AND SCREEN, 2020-05-31 09:50:00 Delia Matthews [facility] BASIC METABOLIC PANEL (7) 2020-05-31 05:34:00 Kanwal [facility] MAGNESIUM 2020-05-31 05:34:00 [facility] PT[facility]APTT 2020-05-31 05:34:00 [facility] HEPATIC FUNCTION PANEL 2020-05-31 05:34:00 [facility] CBC W/PLT COUNT & AUTO 2020-05-31 05:34:00 [facility] (CELLAVISION MANUAL DIFF) 2020-05-31 05:34:00 [facility] BASIC METABOLIC PANEL (7) 2020-05-30 04:39:00 [facility] MAGNESIUM 2020-05-30 04:39:00 [facility] PT/APTT 2020-05-30 04:39:00 [facility] HEPATIC FUNCTION PANEL 2020-05-30 04:39:00 Kanwal [facility] CBC W/PLT COUNT & AUTO 2020-05-30 04:39:00 Demargema [facility] (CELLAVISION MANUAL DIFF) 2020-05-30 04:39:00 Demargema [facility] BASIC METABOLIC PANEL (7) 2020-05-29 04:50:00 [facility] 2020-05-29 04:50:00 Sergema [facility] PT/APTT 2020-05-29 04:50:00 Sergema [facility] HEPATIC FUNCTION PANEL 2020-05-29 04:50:00 Sergema [facility] PHOSPHORUS 2020-05-29 04:50:00 Christofer Concepcion [facility] CBC W/PLT COUNT & AUTO 2020-05-29 04:50:00 Demargema [facility] (CELLAVISION MANUAL DIFF) 2020-05-29 04:50:00 Kanwal [facility] HEPATITIS PANEL, ACUTE 2020-05-28 14:19:00 Delia Matthews [facility] D-DIMER 2020-05-28 03:59:00 Delia Matthews [facility] BASIC METABOLIC PANEL (7) 2020-05-28 03:59:00 SerSonido ribeiro [facility] MAGNESIUM 2020-05-28 03:59:00 Sergema [facility] PT/APTT 2020-05-28 03:59:00 [facility]EL 2020-05-28 03:59:00 Sergema [facility] COMPREHENSIVE METABOLIC 2020-05-28 03:59:[address] [facility] CBC W/PLT COUNT & AUTO 2020-05-28 03:59:00 Sonido Schofield [facility] DIFFERENTIAL [facility] (CELLAVISION MANUAL DIFF) 2020-05-28 03:59:00 Sonido Schofield [facility] REPORT OF PROCEDURE - 2020-05-27 08:30:[address] [facility] ENDOSCOPY [facility] TISSUE EXAM 2020-05-27 08:20:00 Myrna Monsalve [facility] UPPER ENDOSCOPY,BIOPSY 2020-05-27 07:59:00 Bello [facility] BASIC METABOLIC PANEL (7) 2020-05-27 03:40:00 Sonido Schofield [facility] MAGNESIUM 2020-05-27 03:40:00 Kanwal [facility] PT/APTT 2020-05-27 03:40:00 Kanwal [facility] HEPATIC FUNCTION PANEL 2020-05-27 03:40:[address] [facility] CBC W/PLT COUNT & AUTO 2020-05-27 03:40:00 Sonido Schofield [facility] DIFFERENTIAL [facility] (MANUAL DIFFERENTIAL) 2020-05-27 03:40:00 Delia Matthews [facility] TRANSFUSION SERVICE 2020-05-26 18:21:41 Provider, Christopher [facility] - SCAN [facility] HEPATITIS C PCR, 2020-05-26 12:26:00 Vee Hernandez [facility] D-DIMER 2020-05-26 12:26:00 Vee Hernandez [facility] BASIC METABOLIC PANEL (7) 2020-05-26 03:50:00 SerSonido ribeiro [facility] MAGNESIUM 2020-05-26 03:50:[address] [facility] PHOSPHORUS 2020-05-26 03:50:00 [facility] PT/APTT 2020-05-26 03:50:00 [facility] HEPATIC FUNCTION PANEL 2020-05-26 03:50:00 Sergema [facility] CALCIUM, IONIZED 2020-05-26 03:50:[address] [facility] COMPREHENSIVE METABOLIC 2020-05-26 03:50:00 Marlo Hernandez [facility] CBC W/PLT COUNT & AUTO 2020-05-26 03:50:00 [facility] (CELLAVISION MANUAL DIFF) 2020-05-26 03:50:00 Kanwal [facility] PREPARE LEUKO-REDUCED RBC 2020-05-25 23:54:00 Kanwal [facility] TSH/FREE T4 IF INDICATED 2020-05-25 19:14:00 Vee Hernandez [facility] HEMOGLOBIN AND HEMATOCRIT 2020-05-25 19:14:00 Av Layo [facility] TRANSFUSION SERVICE 2020-05-25 18:01:32 Christopher Rivas [facility] HEMOGLOBIN AND HEMATOCRIT 2020-05-25 11:42:00 Ley Layo [facility] LACTATE DEHYDROGENASE 2020-05-25 11:42:00 [place] Layo [facility] (LDH) [facility] PROTHROMBIN TIME/INR 2020-05-25 11:42:00 [place] [facility] D-DIMER 2020-05-25 11:42:00 [place] [facility] CBC W/PLT COUNT & AUTO 2020-05-25 11:42:00 Av Layo [facility] DIFFERENTIAL [facility] TROPONIN I 2020-05-25 03:42:00 Kanwal [facility] MAGNESIUM 2020-05-25 03:42:00 Kanwal [facility] PHOSPHORUS 2020-05-25 03:42:00 Kanwal [facility] HEPATIC FUNCTION PANEL 2020-05-25 03:42:00 Kanwal [facility] CALCIUM, IONIZED 2020-05-25 03:42:[address] [facility] LACTIC ACID, VENOUS 2020-05-25 03:42:[address] [facility] COMPREHENSIVE METABOLIC 2020-05-25 03:42:00 [facility] RETICULOCYTE [facility] 2020-05-25 03:42:00 [facility] PERIPHERAL BLOOD SMEAR - 2020-05-25 03:42:00 Bala Genao [facility] - PATHOLOGIST REVIEW [facility] W/PLT COUNT & AUTO 2020-05-25 03:42:00 Kanwal [facility] DIFFERENTIAL [facility] (CELLAVISION MANUAL DIFF) 2020-05-25 03:42:00 Kanwal [facility] PT/APTT 2020-05-25 03:41:00 [facility] IRON, TIBC, % SAT. 2020-05-25 03:41:00 [facility] (WITHOUT FERRITIN) [facility] r FERRITIN 2020-05-25 03:41:00 [facility] HAPTOGLOBIN 2020-05-25 03:41:00 [facility] XR CHEST 1 VIEW 2020-05-25 02:00:00 [facility] PORTABLE/BEDSIDE [facility] US TESTICULAR (SCROTUM) 2020-05-25 01:24:00 [facility] TRANSFUSE LEUKO-REDUCED 2020-05-25 01:22:54 [facility] RED BLOOD CELLS [facility] PREPARE LEUKO-REDUCED RBC 2020-05-24 21:55:00 Sonido Schofield [facility] HEMOGLOBIN AND HEMATOCRIT 2020-05-24 20:40:00 Layo Ley [facility] HEPATITIS B SURFACE 2020-05-24 20:40:00 Marlo Hernandez [facility] DRUG TEST, GENERAL 2020-05-24 18:40:00 Layo Ley [facility] - TOXICOLOGY, URINE [facility] TROPONIN I 2020-05-24 17:32:00 Kanwal [facility] B-TYPE NATRIURETIC FACTOR 2020-05-24 17:32:00 Sonido Schofield [facility] (BNP) [facility] TROPONIN I 2020-05-24 12:30:00 Kanwal [facility] HEMOGLOBIN AND HEMATOCRIT 2020-05-24 12:30:00 Layo Ley [facility] BASIC METABOLIC PANEL (7) 2020-05-24 12:30:00 Layo Ley [facility] 2D ECHO W/ DOPPLER 2020-05-24 09:17:[address] [facility] (CW/PW/COLOR) [facility] HEMOGLOBIN AND HEMATOCRIT 2020-05-24 08:02:00 Adela Miguel [facility] TROPONIN I 2020-05-24 08:02:00 Kanwal [facility] BASIC METABOLIC PANEL (7) 2020-05-24 08:02:00 Layo Ley [facility] PHOSPHORUS 2020-05-24 08:02:00 [facility] LEUKO-REDUCED 2020-05-24 07:31:48 Sonido Schofield [facility] RED BLOOD CELLS [facility] LACTIC ACID, VENOUS 2020-05-24 03:57:[address] [facility] ABORH, MANUAL 2020-05-24 03:57:00 Lionel, Vidhiruma Diaz [facility] CALCIUM, IONIZED 2020-05-24 03:56:[address] [facility] BASIC METABOLIC PANEL (7) 2020-05-24 03:48:00 Kanwal [facility] MAGNESIUM 2020-05-24 03:48:00 Sergema [facility] PHOSPHORUS 2020-05-24 03:48:00 Sergema [facility] PT/APTT 2020-05-24 03:48:00 Kanwal [facility] HEPATIC FUNCTION PANEL 2020-05-24 03:48:00 Kanwal [facility] HEMOGLOBIN A1C 2020-05-24 03:48:00 Santy [facility] HIV-1 ANTIGEN WITH 2020-05-24 03:48:00 [facility]2 ANTIBODY [facility] VITAMIN B12 AND FOLATE 2020-05-24 03:48:[address] [facility] CBC W/PLT COUNT & AUTO 2020-05-24 03:48:00 Kanwal [facility] - DIFFERENTIAL [facility] BLOOD CULTURE 2020-05-24 03:34:00 Sergema [facility] PT/APTT 2020-05-24 02:59:00 Sergema [facility] TYPE AND SCREEN, 2020-05-24 02:59:00 [facility] AUTOMATED [facility] BLOOD CULTURE 2020-05-24 02:58:00 [facility]-COV2/RT-PCR ([facility] & 2020-05-24 02:33:00 Sergema [facility] - REF LABS) [facility] XR CHEST 1 VIEW 2020-05-24 01:37:00 Kanwal Sonido [facility] - PORTABLE/BEDSIDE [facility] BASIC METABOLIC PANEL (7) 2020-05-24 01:29:00 Sonido Schofield I [facility] MAGNESIUM 2020-05-24 01:29:00 Kan[facility] PHOSPHORUS 2020-05-24 01:29:00 [facility] HEPATIC FUNCTION PANEL 2020-05-24 01:29:00 [facility] LACTIC ACID, VENOUS 2020-05-24 01:29:00 [facility] TROPONIN I 2020-05-24 01:29:00 [facility] CBC W/PLT COUNT & AUTO 2020-05-24 01:29:00 [facility] DIFFERENTIAL [facility] BLOOD GAS, VENOUS 2020-05-24 01:28:00 [facility] B-TYPE NATRIURETIC FACTOR 2020-05-24 01:27:00 [facility] Sonido [facility] (BNP) [facility] REPORT OF PROCEDURE - 2020-05-24 00:00:00 Provider, Christopher [facility] - ENDOSCOPY SCAN Scanning [facility] SARS-COV2/RT-PCR ([facility] & 2020-02-22 10:34:00 [facility] - REF LABS) [facility] Plan of Care Planned Activity Planned Date Details Comments Source Future Scheduled 2020-05-[address] [facility]00 (WELCOME TO [facility] MEDICARE) [code = Medicare IPPE (WELCOME TO MEDICARE)] Future Scheduled [address] [facility] (procedure) [code = [facility] 62635525] Future Scheduled [address] [facility] - Test 00:00:00 malignant neoplasm Medical C enter of colon (procedure) [code = 094527892] Encounters Start End Encounter Admission Attending Care Care Encounter Source Date/Time Date/Time Type Type Clinicians Facility Department ID 2020-05-08 2020-05-08 [facility] [id number] 14:38:00 18:28:00 Renata Ramos [id number] [place] [id number] [place] [id number] Results Test Description Test Time Test Comments Results Result Sourc e Comments HEMODIALYSIS 2020-06-03 Alon Garrett [facility] INPATIENT 12:01:00 RN 06/03/2020 - [...] - Report given to primary RN. Alon aGrrett RN CBC with platelet count + automated [...] K/CU MM L MPV (test code = 72782-4) 10.8 fL 9.4-12.4 nRBC (test code = 413) 1 0- 0 /100 WBC H Lab Interpretation (test code = 68066-6) Abnormal [facility] [id number] 10:02:00 Test Item Value Reference Range Interpretation [...] = 3438) FANTA (test code = FANTA) Travel Sales Consultant ID - Chris Mtz comments: Slide comments: Lab Interpretation (test Abnormal code = 60778-0) [facility] W/PLT COUNT & AUTO [id number] 10:02:00 Test Item Value Reference Range Interpretation [...] CONCENTRATION Decreased (CELLAVISION)(BEAKER) (test code = 3438) Travel Sales Consultant ID - Chris Mtz comments: Slide comments:Comprehensive metabolic [id number] 05:15:00 Test Item Value Reference Range Interpretation Comments Protein, Total (test 6.5 6.0- 8.3 gm/dL Speci men slightly code = 2885-2) hemolyzed Albumin (test code = 3.3 g/dL 3.5-5 L Specime n slightly 42842-5) hemolyzed Alkaline Phosphatase 71 U/L 40-150 (test [...] Calcium (test code = 9.2 mg/dL 8.4-10.2 45671-9) AST (test code = 42 U/L 5-34 H Specimen sl ightly 1920-8) hemolyzed ALT (test code = 14 U/L 6-55 Specimen sl ightly 1742-6) hemolyzed EGFR (test code = 6 mL/min/1.73 [place] [address]-3) NOT ACCURATE CREATININE CLEARANCE IN PREDICTING GLOMERULAR FILTRATION RATE . ESTIMATED GFR I S NOT APPLICABLE FOR DIALYSIS PATIENTS. FANTA (test code = FANTA) Travel Sales Consultant ID - BONILLA M Lab Interpretation Abnormal (test code = 52252-6) [facility] Center[facility]PRE[facility]ENSIVE METABOLIC [id number] 05:15:00 Test Item Value Reference Range Interpretation [...] S NOT APPLICABLE FOR DIALYSIS PATIEN TS. Travel Sales Consultant [facility] function [id number] 05:03:00 Test Item Value Reference Range Interpretation Comments Protein, Total (test 6.5 6.0- 8.3 gm/dL Speci men code = 2885-2) slightly hemolyzed Albumin (test code = 3.3 g/dL 3.5-5 [place] n [address]-4) slightly hemolyzed Total Bilirubin (test 0.3 mg/dL [...] slightly hemolyzed FANTA (test code = FANTA) Travel Sales Consultant [facility] Lab Interpretation Abnormal (test code = 92213-4) [facility] Center[facility]esium2020-10-14 05:03:00 Test Item Value Reference Range Interpretation Comments Magnesium (test code = 2.0 mg/dL 1.6-2.6 Speci men 25363-5) slightly hemolyzed FANTA (test code = FANTA) Travel Sales Consultant [facility] Lab Interpretation Normal (test code = 28698-3) [facility] CenterPhosphorus2020-10-14 05:03:00 Test Item Value Reference Range Interpretation Comments Phosphorus (test code 4.3 mg/dL 2.3-4.7 Specim en = 2777-1) slightly hemolyzed FANTA (test code = FANTA) Travel Sales Consultant [facility] Lab Interpretation Normal (test code = 11103-2) [facility] CenterMAGNESIUM2020-10-14 05:03:00 Test Item Value Reference Range Interpretation Comments MAGNESIUM (BEAKER) 2.0 mg/dL 1.6-2.6 Specimen slightly (test code = 627) hemolyzed Travel Sales Consultant ID - BONILLA [id number] 05:03:00 Test Item Value Reference Range Interpretation Comments PHOSPHORUS (BEAKER) 4.3 mg/dL 2.3-4.7 Specimen slightly (test code = 604) hemolyzed Travel Sales Consultant ID - BONILLA MHEPATIC FUNCTION [id number] 05:03:00 Test Item Value Reference Range Interpretation [...] Specimen slightly (test code = 347) hemolyzed Travel Sales Consultant ID - BONILLA MPT/[id number] 04:44:00 Test Item Value Reference Range Interpretation Comments Protime (test code = 14.1 11.9- 14.2 5902-2) seconds INR (test code = 1.12 <=5.90 6301-6) PTT (test code = 38.0 22.5- 36.0 H 30046-7) seconds FANTA (test code = FANTA) Effective 01/16/2019: PT Reference Range ChangeNew: 11.9-14.2 Previous: 11.7-14.7 RECOMMENDED COUMADIN/WARFARIN INR THERAPY RANGESSTANDARD DOSE: 2.0-3.0 Includes: PROPHYLAXIS for venous thrombosis, systemic embolization; TREATMENT for venous thrombosis and/or pulmonary embolus.HIGH RISK: Target INR is 2.5-3.5 for patients wiht mechanical heart valves. Lab Interpretation Abnormal (test code = 64421-1) [facility] CenterPT/[id number] 04:44:00 Test Item Value Reference Range Interpretation [...] is2.5-3.5 for patients wiht mechanical heart valves.Calcium, [id number] 04:34:00 Test Item Value Reference Range Interpretation Comments Calcium, Ion (test code = 1994-3) 1.17 mmol/L 1.12-1.27 pH, Blood (test code = 64106-6) 7.44 [facility] CenterCALCIUM, [id number] 04:34:00 Test Item Value Reference Range Interpretation Comments CALCIUM IONIZED (BEAKER) (test 1.17 mmol/L 1.12-1.27 code = 698) PH, BLOOD (BEAKER) (test code = 7.44 1810) Prepare Leuko-Red [id number] 23:54:00 Test Item Value Reference Range Interpretation Comments CROSSMATCH (test code = 2264) COMPATIBLE Unit ABO (test code = O Pos 7196029) UNIT NUMBER (test code = [id number] 934-0) Status (test code = 6872860) [place]_TIMEINCHART Blood Bank Product (test code RED BLOOD CELLS = 2263) PRODUCT CODE (test code = G5737N98 933-2) [facility] Center[facility] W/PLT COUNT & AUTO [id number] 07:51:00 Test Item Value Reference Range Interpretation [...] CONCENTRATION Decreased (CELLAVISION)(BEAKER) (test code = 3438) Travel Sales Consultant ID - Abby Higgins comments: Slide comments:Basic Metabolic [id number] 05:22:00 Test Item Value Reference Range Interpretation [...] Calcium (test code = 8.6 mg/dL 8.4-10.2 36991-3) EGFR (test code = 9 mL/min/1.73 [place] [address]-9) NOT ACCURATE CREATININE CLEARANCE IN PREDICTING GLOMERULAR FILTRATION RATE . ESTIMATED GFR I S NOT APPLICABLE FOR DIALYSIS PATIENTS. FANTA (test code = FANTA) Travel Sales Consultant ID - MONIQUEASI Lab Interpretation Abnormal (test code = 84200-1) [facility] CenterBASIC METABOLIC [id number] 05:22:00 Test Item Value Reference Range Interpretation [...] S NOT APPLICABLE FOR DIALYSIS PATIEN TS. Travel Sales Consultant ID - [id number] 04:52:00 Test Item Value Reference Range Interpretation Comments MAGNESIUM (BEAKER) (test code = 1.9 mg/dL 1.6-2.6 627) Travel Sales Consultant ID - EDASIHEPATIC FUNCTION [id number] 04:52:00 Test Item Value Reference Range Interpretation [...] (test code = 15 U/L 6-55 347) Travel Sales Consultant ID - EDASIPT/[id number] 04:20:00 Test Item Value Reference Range Interpretation [...] is2.5-3.5 for patients wiht mechanical heart valves.POC-Glucose [id number] 22:24:00 Test Item Value Reference Range Interpretation Comments POC-Glucose Meter (test 99 mg/dL 70-110 : TE STED AT [facility] code = 1538) [address] [facility], 770 30: Travel Sales Consultant/Techni connie ID = [id number] for Jerson Morales Lab Interpretation (test Normal code = 16890-3) [facility] CenterPOCT-GLUCOSE [id number] 22:24:00 Test Item Value Reference Range Interpretation Comments POC-GLUCOSE METER 99 mg/dL 70-110 : TESTED A T [facility] 6720 ([facility]) (test code = [facility], 1538) [address]: Travel Sales Consultant/Techni connie ID = [id number] for Camille bolton Jerson Hepatitis B surface [id number] 20:25:00 Test Item Value Reference Range Interpretation Comments Hep B S Ab (test code = 27.2 <8.0 mIU/mL H 52158-1) FANTA (test code = FANTA) Travel Sales Consultant ID - DB Lab Interpretation (test Abnormal code = 26829-2) [facility] [id number] 20:25:00 Test Item Value Reference Range Interpretation Comments HEPATITIS B SURFACE ANTIBODY 27.2 mIU/mL <8.0 H (BEAKER) (test code = 647) Travel Sales Consultant ID - DBDrug Test, General Toxicology, [id number] 11:06:00 Test Item Value Reference Interpretation Comments Range Acetone([facility]) None Detected (test code = 3053) Methanol([facility]) None Detected (test code = 3054) Drug Test,Genrl see note The followin g compounds were Tox,U (test detected: Co tinine code = 4535316) (Nicotine Me tabolite) Morphine Osvaldo taminophen Hydromorphone Hydrocodone Benzoylecgoni ne (Cocaine Metabolite) Cyclobenzaprine For a list of compounds an d limits of detection go to:http://educa tion.[employer]/faq /PJN728 ISOPROPANOL None Detected (test code = 3541669) ETHANOL (test None Detected Volatile code = 9748014) Limit of Det ection: 5 mg/dL This test was d eveloped and its analytical performancechar acteristics have been deter mined by [employer] [place], [place]. It hasnot been enoch ared or approved by the U.S. Food and DrugAdministrat ion. This assay has been validated pursuantto the CLIA regulations and is used for clinicalpurpose s. FANTA (test code Performing Lab = FANTA) 15 [facility], [address] [place] [address] [place] [address] Mckenna Lopez MD, PhD [facility] CenterCB W/PLT COUNT & AUTO [id number] 08:11:00 Test Item Value Reference Range Interpretation [...] CONCENTRATION Decreased (CELLAVISION)(BEAKER) (test code = 3438) Travel Sales Consultant ID - Jonna Pascual comments: Slide comments:BASIC [...] S NOT APPLICABLE FOR DIALYSIS PATIEN TS. Travel Sales Consultant ID - BONILLA [id number] 05:45:00 Test Item Value Reference Range Interpretation Comments MAGNESIUM (BEAKER) (test code = 2.2 mg/dL 1.6-2.6 627) Travel Sales Consultant ID - BONILLA MHEPATIC FUNCTION [id number] 05:45:00 Test Item Value Reference Range Interpretation [...] (test code = 11 U/L 6-55 347) Travel Sales Consultant ID - BONILLA MPT/KEHE8531-02-53 05:17:00 Test Item Value Reference Range Interpretation [...] patients wiht mechanical heart valves.Type and screen, [id number] 11:24:00 Test Item Value Reference Range Interpretation Comments ABO/RH AUTOMATED (BEAKER) (test O POSITIVE code = 2260) Ab Scrn (test code = 890-4) NEGATIVE [facility] CenterHemoglobin and [id number] 09:57:00 Test Item Value Reference Range Interpretation Comments Hemoglobin (test code = 7.2 13.7- 17.5 GM/DL L 786-4) Hematocrit (test code = 21.2 % 40.1-51 L 4544-3) FANTA (test code = FANTA) Travel Sales Consultant ID - [id number] Lab Interpretation (test Abnormal code = 20033-1) [facility] CenterHEMOGLOBIN AND [id number] 09:57:00 Test Item Value Reference Range Interpretation Comments HEMOGLOBIN (BEAKER) (test code = 7.2 GM/DL 13.7-17.5 L 410) HEMATOCRIT (BEAKER) (test code = 21.2 % 40.1-51.0 L 411) Travel Sales Consultant ID - [id number] W/PLT COUNT & AUTO [id number] 08:25:00 Test Item Value Reference Range Interpretation [...] CONCENTRATION Decreased (CELLAVISION)(BEAKER) (test code = 3438) Travel Sales Consultant EVELYNE Adams comments: Slide comments:BASIC METABOLIC [id number] 06:33:00 Test Item Value Reference Range Interpretation [...] S NOT APPLICABLE FOR DIALYSIS PATIEN TS. Travel Sales Consultant ID - BANDAR [id number] 06:22:00 Test Item Value Reference Range Interpretation Comments MAGNESIUM (BEAKER) (test code = 2.1 mg/dL 1.6-2.6 627) Travel Sales Consultant ID - BANDAR LHEPATIC FUNCTION [id number] 06:22:00 Test Item Value Reference Range Interpretation [...] (test code = 12 U/L 6-55 347) Travel Sales Consultant ID - MAYDAAYA LPT/[id number] 06:13:00 Test Item Value Reference Range Interpretation [...] mechanical heart valves.CBC W/PLT COUNT & AUTO [id number] 07:32:00 Test Item Value Reference Range Interpretation [...] (CELLAVISION)(BEAKER) (test code = 3438) BASIC METABOLIC [id number] 06:02:00 Test Item Value Reference Range Interpretation [...] S NOT APPLICABLE FOR DIALYSIS PATIEN TS. [id number] 06:00:00 Test Item Value Reference Range Interpretation Comments MAGNESIUM (BEAKER) (test code = 2.0 mg/dL 1.6-2.6 627) HEPATIC FUNCTION [id number] 06:00:00 Test Item Value Reference Range Interpretation [...] (test code = 12 U/L 6-55 347) [id number] 05:30:00 Test Item Value Reference Range Interpretation [...] mechanical heart valves.CBC W/PLT COUNT & AUTO [id number] 07:05:00 Test Item Value Reference Range Interpretation [...] CONCENTRATION Adequate (CELLAVISION)(BEAKER) (test code = 3438) Travel Sales Consultant ID - Kaylee Martines comments: Slide comments:BASIC [...] S NOT APPLICABLE FOR DIALYSIS PATIEN TS. Travel Sales Consultant ID - [id number] 05:42:00 Test Item Value Reference Range Interpretation Comments MAGNESIUM (BEAKER) 1.7 mg/dL 1.6-2.6 Specimen slightly (test code = 627) hemolyzed Travel Sales Consultant ID - [id number] 05:42:00 Test Item Value Reference Range Interpretation Comments PHOSPHORUS (BEAKER) 4.8 mg/dL 2.3-4.7 H Specimen slightly (test code = 604) hemolyzed Travel Sales Consultant ID - EDASIHEPATIC FUNCTION [id number] 05:42:00 Test Item Value Reference Range Interpretation [...] Specimen slightly (test code = 347) hemolyzed Travel Sales Consultant ID - EDASIPT/[id number] 05:19:00 Test Item Value Reference Range Interpretation [...] = No growth in 5 days 6463-4) [facility] CenterBLOOD [id number] 05:01:00 Test Item Value Reference Range Interpretation Comments CULTURE (BEAKER) (test No growth in 5 days code = 1095) BLOOD [id number] 05:01:00 Test Item Value Reference Range Interpretation Comments CULTURE (BEAKER) (test No growth in 5 days code = 1095) Hepatitis panel, [id number] 18:27:00 Test Item Value Reference Range Interpretation Comments Hep A IgM (test code = Nonreactive Nonreactive 47934-7) Hep B C IgM (test code = Nonreactive Nonreactive 33391-7) Hepatitis C Ab (test code = Reactive Nonreactive A 32870-1) HBsAg Screen (test code = Nonreactive Nonreactive 5195-3) FANTA (test code = FANTA) Travel Sales Consultant ID - DB Lab Interpretation (test Abnormal code = 96231-5) [facility] PANEL, [id number] 18:27:00 Test Item Value Reference Range Interpretation Comments HEPATITIS A IGM ANTIBODY (BEAKER) Nonreactive Nonreactive (test code = 498) HEPATITIS B CORE IGM ANTIBODY Nonreactive Nonreactive (BEAKER) (test code = 645) HEPATITIS C ANTIBODY (BEAKER) Reactive Nonreactive A (test code = 367) HEPATITIS B SURFACE ANTIGEN (2) Nonreactive Nonreactive (BEAKER) (test code = 2585) Travel Sales Consultant ID - DBTissue [id number] 13:01:00 Test Item Value Reference Range Interpretation Comments Case Report (test Surgical Pathology code = 104) Report Case: [id number] Authorizing Provider: Myrna Monsalve MD Collected: 05/27/2020 08:20 AM Ordering Location: [address] Received: 05/27/2020 02:50 PM SERVICE Pathologist: Rosa Cisneros MD Specimens: A) - Biopsy, Gastric, random biopsies R/O H. pylori B) - Biopsy, Gastroesophageal Junction, random biopsies R/O Islas's DIAGNOSIS (test code s4aqePEsUDRxk0twRGNonQJn = 3220) ZzEwMzNcZnRuYmpcdWMxIHtc ikOdHMykn7QdV0QzAiQgACjx bnNpXGRlZmxhbmcxMDMzXGZ0 ciFtSATtRGebZKBdJWgiKj9r oWNewBacQdVxRDDui7xivmNK ijircTj0g3ufFDWoJoK1jXYs FLviH6uqknMqrDZvBRUvZSw9 zD25XPInnL0unHZbJJsgxwPc GcZ6BPkoUTJcNeS9IBExlQHg JBYnF0eqSDYyRRpmPOXaQRdw aBEiPEK6gLxvu9J1jMIixSJi xFlvOuZnBtSqRBFLd6GhEBc3 fZuhC8AuHXJuDqO4cYYeOGIq QKwbDTOpMPNzkaM4eH42BNyp edG8qLUla6Qvv95yu805gZ5o eYPuXIY8XGIsPWXxtAQsPKPf EME6BFRitHGnW4h8YtWlaYJc A2F0LiHddIWaK5M7UoChyBBp A6A7PcTskZUyLYItwHVnVb3r uOQdvIEtkc2fsm66XOZ5s2Of uKwsLZK2ZBY7FrPmQj9zvAMa BGZqMS7wWrDviSGoLUZojv77 fOknIYkedkYreZ5bNhQpXZOg vWByKIIeOS9dhMVhSEUqhF8v cmxjXHBnYnJkcmhlYWRccGdi kzZrFa4teDqzKNH7ZIaxD3bq vZ1rIkQ0JVmaJ0kwjI2pCRq2 NLzkiKJ1LJNbhV1hCH8znsjn x9jrZtSxLN7otadwh5vuVyQb DH0mnir6v4heWgHeEW3qgmvw v6azQgAmQEbcRETndzgcCQBj n5JbzhcxIYImg7UwN6YsrTbv D66foPatD56xBRTodDyqoK7a sBglmR8lMmQfXtUpBRqeuEvs bGFpblxmMVxmczIwXGxhbmcx TOOdAIkvA0jjQySpWRJxtKxv DYwhq1VeEVAnUYRkYsEePA9i D1EIRPMKYAnpKJ6SN2HUM9RD IgCXPLEWS5SZDSOJO7XREBAA IFxwYXIgLSBBTlRSQUwgTVVD L9ITWZnTBAtiE0fUC69QBtCN TkFDVElWRSBHQVNUUklUSVMg XE6BBIJNN0ORCPoQPMWWIOrT QUwgTUVUQVBMQVNJQSwgXHBh ciAgIENPTVBMRVRFIFRZUEVc aQQoVC9jM0wTVhMWRiHCIDSD H8MuI6uMQGKULeJEVCoCKROW A0BEJRGNIFWQR9lYT2aBHVRH GJVESBYXY82GKJLhvyZrKI0C T3BDBKFWWFHHAuYNTKxGI33Q QFXLKBTjYOuTY1OPJXQjyxDw PJ2HY0BIUIYXRDAUDzIADNRZ BVKHUBGgZ2VrC3HJI1iTE96L SCWyltgxGOJhWi4tC6BBDJQJ XXJJWOsEK2ZLIBTWHJ7UZDbC LxunYQ0AO4RIC5VZYqOJPVDN O1OZGVUNR3OQGDRGWFQfkuGu IEVPOZIDM6CSVRSPNsBJTP0L R71FTYPQSSDNTPRJLCeWQAIE ZUOQNWMXO5vhBJJlLANFHGcN AZuPMZLHS0ZcV1RWN3pDBTue RUQgQkFSUkVUVCBNRVRBUExB H5uVGZEdikcyHATtcASwjCuy bnWmEJehy5ClKJybULJiQB0s nHogINWnIO6aZALjO8mfuU8o ewz6JxSjNZTlBcT6GFCicjA3 Bgf9BWFiFEkap0izg2IoBMZm KNk4jAgqFaGwFGObq7oeuiBp LmHoASTmELLtQJUygJHgB495 d6rpr4nludPazMQ9OSNhKXS7 DJkenrMbisN9EYzwfGVzDdP4 IDtccmVkMFxncmVlbjBcYmx1 GBTdR341KEA1gNapp5evVUZ7 FQIlYCYrDbJeXv0uhETxU049 BPNlAIDNAPSslCs1NBMsozMc wgExmLJJu395B611v0jlRCUs usGpoIdYnlmkl7ceZ482FHWh cGVydzEyMjQwXHBhcGVyaDE1 SMIhVL1wuygvCKiqURggUBCg niC7XVNopNQxS9TjUHVjRR4f ucrgOOV6WKxkOSLdKJE0VnQj JEQta0Ypfvv7YnUokp0foc02 TOG4v3DapJiyZUX5AAN7CtOr Ie5xuPCkSWReBN7vUnEneOBr CTOytn49qBpuTMzvAHZ0HHLd kxBgv2Qbj5neLbScokAnO2vn G2MsKIQdOTFtIVJeKpCgkmGa m4Hju8QgbWRaeSl8o3ixLHQq FMUvsLzve8jvQAC5EQLosYJi D4gnmG9rSCVoWA5uxztsc0vf BBnaGFleQQYsvKC4rtC6ALEa oZMuL5MhjE8wTZGkYAexPJTf gqr9InXkBa5upOMwbSyiUNuj YmtwYWdlXHBnbmNvbnRccGdu ZGVjXHBsYWluXHBsYWluXGYw XGZzMjRccWxcbGFuZzEwMzNc aGljaFxmMVxkYmNoXGYxXGxv L5xaFfHxQeMkPqk8JTWvtNKv TQDxDbn1DIHolWAkFYOYqEvf jT3rIRQkpWeurF5jjPE5RLMg ddZcgTNTbG2aGYKJtC3sDbD6 NgAeSsV8QTClBHnhtHZgzB6= COMMENT (test code = h1bwzDEnBIWdnHKuZvZrANXp 3359) PZAcv3xgZQBrtTIbIsLaWtKq MhQiTtebvFEaPEHgJzMwk5yx f884nAWqq6vsKAVuAhO4aRVl MQZtdWUhX230v2jpa8dosdBb bCR8JDMmVUF6AMkyfyZrxlV8 WSajzRHsHrM1EPgkcoQxABly xuZiwuRaBxn2CXIaF167CMB9 cNbzv5pjMXO8EWWqCAZlYfNa Oh3kuUKlY018DAJbOBYJUMCe zMa7PLUjcmItczSndCYQr968 L711x9wnHLKlpmZxlIwJvegx e1eoT651DFBhyFLqtsXgAgZg YFSfiGDgmXK8XYGxVM1wypog YwMaEO2qqndyYpFrJW5tjqc2 QmDgEA7mvsdmYyMtVIshFDBd ambcBQTvd1FspjrhQH5hB1Sv d5U6kG0moXPjCDGqmJDkRwPe NBMfgb8xxXUoDNubk8MhJNZ1 grC7yEDprHTvGOSzPT57Hjcj j5FlUnnfTPY6UZWqozMbf1Qb l3hrGyNfxcWwI2ylV4ZpGCEs UQPlHHSpZxOlepEms7Bhf1Fr dYRewKv7l9bfOTRdIZTlzBwq u2lxGYI4TSXfR2S3sHVzb7jw AJrcRMEhxQO5gruwACpyJOCw ciK5zrjtMTnvWBXleXB4epym KFoyJSVeQzL1rtrgCSqnKEDi SEB7LOanc264XOL7FLorXhkg YWdlXHBnbmNvbnRccGduZGVj XHBsYWluXHBsYWluXGYwXGZz XjKbyPdgbHuwrX2pKcWdCoKl QGyaLS7hFXLjJ5tsjPGvJEPi UCXjB5qxEdDwgO6bvGnpOFzk psKkLG7mcIQeaQ== CPT Code(s) (test k8xclCVtRITlkSGeCrHaXBPa code = 3357) RUAfe4rfIYGuiOOlObDgUbIa AuHrBnjanBTaVOWdUcRoe9bl k937hHIve7gaOSWhGeJ5vQCd JOFnhVOkW936h8xxb3ydgwCv jLY5KJSiGTF8ONuvsrLjozD0 QHjtyGUdRzY2CWnbyxTlIUfr lvDhnyLsDhi1GYAoO607DFX7 bVdid9ngUKK7JNPrKDHeCcQb Ax5qkHKfG342HAOrGQMYQENs xRk0UKKulzEvweOhvBKEz742 H444e1oaABZtfuHyzKaSyymw r8epH907ZXVnfIQjvtCoIxBw JYJrkKRgkUT8NJBqIM2lybqs AmAdIU5slvutFwVkOC7qclq9 EhUnDX7fbqclBuEjYOuaDKYt lflnSICtk8EzhekmVR5gP7Ys p4L8aV7rhJJqXMAevGUsTcJk PKWwyz7yxGGdCZtvx5LiOQP7 ocB9wMWddLAvYWSkIU03Uisv k2ObIzkuEWE1KGVirwDvy0Xd b9eiLjCkbyHcX8kgW9KqGALw IBQrOJBcVdEoxbVni8Wcy5Vh fLGdhUa1b4ojUVLtNDRxiPaq g5olROE7ANQgK6C7aFPpd5vv TDozDJQjjOY4uzadDUmiUONt ljB7jbuiEXzzKEMftQF6hrzd PZhfLCQbSnQ9aetfETprEZUd YSS1FQcdp334JAD7UJoxIfgb YWdlXHBnbmNvbnRccGduZGVj XHBsYWluXHBsYWluXGYwXGZz QiDrhGmsoJgfhV0rArKkJfTw DAqgTA4pWQKmO6wxwEYwNQBu INUwS3xqOrUhtC7lkWedFEda ltTsJXt1HgM0SPsxECX0KIOo MlxwYXJ9 CLINICAL HISTORY l9houTCpEUZxnNUrVkMwEMDf (test code = 3356) RKUcb7blOUOrfXXgOtNuFeRi WhFwDxkxfCXcQGKiAyCdz7ic z063zXKuk8ihZYGkBzT1gRZs FETjmCLqS963v6ocw0tpmuBk zWO1FSTdAOA9CUljcrLvozR1 GTasrLRrHlI2FQipehXqJZkk wbEjjjXtVaw7PUMfP677GEW4 iVdop4imQBL7DLUnCSBzCcMg Iy4rlWFmJ472RMLpALVIUPVh lTd3YXQfcmXjnbLoyDYPx144 G581m7lqQZBmceJxrBjFlwyi n3xnW165CRQnpALllzNdHgOw VGFqpPTveZQ7CFFoTG7ftaef YpUqQE1ojzghAmGuNT0pgcj8 RdXvCA4gwiwfLcLlCXraPHNn vnotTEQap5YpoubeBG2aA5Wo f1J7tV4zbRCqWGFjxHFbGzTf GHJlmz9pvXYdZAbxz2HfDLQ3 xlA7fMQicWYvEBXjDE88Qotp e3GvOkeoVDZ2NJCnntYhj6Yw q4shScNiqhZaV0pcQ8CzMYEu HNDbUPOuCzArnhGhg7Jlo2Ca qSPkeOl8h8bvRKYaVUDbrEdx d6neHYL8BQLbG9Z1tRHty8jz XBcbYTTzmNG1ojitRBujNPKa bkJ8mrrjHRhfOJBumFD3vsdj EZteTIGtHeK3oqllQWggIWVv HYC5YMmhx930YXF3XLtzNsgs YWdlXHBnbmNvbnRccGduZGVj XHBsYWluXHBsYWluXGYwXGZz TaIhvBhmsBdifJ4zXaZoXbUt YQvjDN2vFVKwZ0bdjVYoKKUy WCMzH2xeBuBwsK9kpSgrCQok svVlPZEhZA4bLLWzkPNnfB== SPECIMEN SOURCE (test h5kehIZyMLKxwFEmPuAaJVJa code = 3377) ZGMog7zdWBLwwVRvJxTxRnNs PcRnCfhcfVGzETScHkXez9ux v380jHMoh5rrHXOlIuX0cOMe UBWhwLCmM525f4zhk5phchRv oZV3XGWlKEP7IEbryrVtgnS2 AFpiaLAbTzO9XHxnknIkUDja znPashLcQoh6ZFHbZ136YVI3 uMosm5iyWNV9MVZsXTUnVxEh Dv5ovPHpW813ALJkUWKEHQXe bWu6MXNcgpPykuWjmTBYd463 X082g9fkJDRmdzRgaBbCspak w0ahQ658SEMdeSVioeIsGsPx TCAkaFLzbRP2JXRgJE1plhof CuBqOJ7hqfpjQfNqMT8svap0 XwIjQQ5vzqmiJiTdIMnbPTNg obizRHEes7DkxvudEY9zF2Cg e5G0bT3xoJMgOUQdoSIcXdIv XXSdlb4rcFErYCqjm5OgUTF3 bmE5lGWwqJRlJOFiRG64Kxbj a8LqAmooGDC0IVPccbGlx9Ut x2xtUlLfenZiS1snP6XnMQFr IEFwBZLrJdKhghUiv8Ksk0Lp lNIkaKv4b0hoPJZdJBBklKsl p7wyCQN7IIQvN1V5bEGkv4gu ZAsqAJKtyFH6zidwVEomZTQg diB1afnfEEozPBPqrQK6cqrl ZAzpGWEdHtY2kbbrQBwvICIt RKM3EFblx379AOI0LFcnMqxo YWdlXHBnbmNvbnRccGduZGVj XHBsYWluXHBsYWluXGYwXGZz UlOdqWzaeEkmfQ4uKgObXjLn TVlkLX0eLOEoC1bcaXSwPGOb WEMyW4ziWuBqrQ9fqCjsPNjj czIwIEEuIFJhbmRvbSBnYXN0 szqvFMFop4LjbQqgweXvITSz uVVfXT9cWTgah1HfXVJvcgGJ IyMRNR1gj18dW8CffrUxP7Aj b95sQgoknYG4NRUbfQwiBG21 mSGBJQJhSCT2C1BmOINbpk7= GROSS DESCRIPTION h1eezKKbBSWouELbKkBlNTQl (test code = 3366) NPXqw8qhZFWwnHUsVwSiHkOv DpGqQawakDCvBPLtScRhq6vd p418sXWgd9pqYBKtXlD6vXSk FXEolANnR603VOPwDRkcu5jw b4UiRSDhnGBok7D9AHZZvxpb vMe1cAmrB81zm7T9EauwH3fu ASFlWDMcU6EvXS2oQRLgMvp9 LVR0AMC9OJMvXMWzC4TsPK6k XZFihSBwZPf6u8rsqDizTCSf TDG7i2liWNddbmAbUQ1dan1g aEb2y3owvhYrBHPaZEChiPCR BIXnB5MjnWzsKr3lnFa1aUvi PuujTHT6Rpd5JE9khj52ezm0 oNboYIFjqznxDeX2ESyhTVYl sktkJXm9TKnqDRTzaRytLApo YXJncjcyMFxtYXJndDcyMFxt CFZmFddiXPlhRCTaEEK2GPtd x350ZVD2ISjry5bzv4pvmRDg Vbr8UYOxIvHxXxxlYRveq5Mx y7flAWUcol5fIIS6nQAtyQyc a9Z5iRPfFPBvkAXtxyOtKVDk MyF1EIxaFG0vpz38GZDdTHE7 fx6slYEckRevwiEtuQEmHHqk Z8VeNOKmk811OOGuG9NnYIVv g0K2kcGrGfKbZRDsmQL1ufY2 GHXsNOq0gOWfctY2puJpdYFj U5wtqA93XmRmuAIzM7QezS78 IcIgqCEdG0LnwQ09RrPiuSUc Z0NdtI44AwGmeOIyOZIijEZa Ad3evIRfhYRad5HimYDuTRyg B55th995HKXowlYcN7jvkUXx saatwLXnuofzAMqrzvL3NGCz XHBsYWluXGYwXGZzMjBcbGFu ZzEwMzNcaGljaFxmMFxkYmNo HDOoYFbjT3kaBvSyBwOuHNVZ VlAKEKVhmLEwVXBegtHmk2Av YWxpbiBsYWJlbGVkIHdpdGgg xLtyZVUihRnvswUppcAhPE7f RGLfFWHfL1XsQHGrP32qYLBb nT6nLGRfRX6gMVIjBIG2gnai XNGaq9JejEOoSUUsCHJ1tqOp nRZeIMBia3LzkIReQEsziBOz SJ99L26yYU2fr2QsyrCsPORk j7K0MKU8xCH7HZ9sRCO4ryVi SK37IWczFV5oJLmbYV3rQZQp TUtdRWYoT5VlA6K9NB2rXSib GPGdKJWnwVYzFPghZZI0Kg5f kZZkKDBwlaZ2q7MvGXSqnCep e5zyShNixIn6nuO8jZ6qXHmw NHRhz8GzjZCxIGCmLnddOJIt cGFyXHBsYWluXGYxXGZzMjBc bGFuZzEwMzNcaGljaFxmMVxk GnFvLHSnQUfzE1qqGbNxEcTs MCBCLiBSZWNlaXZlZCBpbiBm s2VkWZvqemWwNVEbgRUeQSgf dGggdGhlIHBhdGllbnQncyBu LG5kCCFdFLQtM0FaBOGzR30y URDxcX9oTWKbCC9eIKXHGTZp gT0lrWegyeMxpO0dq9dnCNPi YIE6k33yhCqmW7SrFK4tLAOj wr77jEy0XMJksEAju6RfE786 SHHgDBM4oFVhgQJfiPeilYTa SGUflLAeKVNaZCD6SMYtNlI5 SSQbSyQooZVzhiZxD0ffPQbu oRJwABNkBRQulDXtaS4sfbZa jqDdaUExpZK5NPKnuN6ktO08 aoMeu8rte2mgpjhzCiihaMYv sXrdokKhdzIfNIVeDWE5ZWEF PE0nfJycqZ6xAfTfZkYoVKma HS2rZSOaE2zrhSZwXGZxGQFh W7mlUqSjhY2nmDyaXImhmoIq EEWZSFXuUKmrtCpmsO2kZiNn MkGuZQxbKJ8oVEXoB6eaeAGm SPLuMHVaP7gfQkOcjZ4bcYwz MVxmczIwXHBhcn0= MICROSCOPIC o1gkkPOuAFHzqOVuHzGhFGBj DESCRIPTION (test APEzr6ptSBEivLZdFbTgXmEs code = 3371) QgWvFiaxkKClFVJqOnWir6nb y214yQVls1tpLYUfJoD6lLUf XREjzSDvE713CYKqOYiri1th a6ApMNTfrFKhy5R0VBHWwbij fYh0aZxsJ63wt7P5IryoB7uw SDSpJOLcA5QvDS8rYPErGke0 FDB8NAR5OGVkVNDcG6ZzKL3d JMHxaYRuKAl8l1imjDijZKUe SHI8v4wwPXknjdFjJU3mpo9o fCs7x0dkweYeGWGrFWLwlETS VDFzA1WwlQorOw6erJp7fUih RtnmMEA9Npr2SA9xjn59dzf0 xZcqRNMvmsdlEdH8WGbpJNQz dakfBZm5MGdyJWXcrDaiTXyz YXJncjcyMFxtYXJndDcyMFxt TTYxKatfLWnoDSUdBQR3ZQgn s194WAW0KTwcl5ria2pmnXCi Pyl8ODCcCiKlQuspXKdyx1Sd o8nkQLCfzv1rZJA9zJLvkZrk q1J3pYQaHKBvlITvolDfYQSy CfM6FXmiKF9pyi96BZOiASX2 cl0ckILpoImxhwVznOWnOHxd L5FgGQAws877JHAzO6CxACAm x6E2xsJbCpKzRUIsjGB9bvQ5 WTJuVDn6hLSvwsF8diLmmNNl D7lxaK59PkUamVOpJ9LgzO70 PhAxeVTsU4BpuB68ZsWnwTBb M3SviD01WbCatLAhZIZeoQMj Um5peIBwuJNxw7ZimDYmSAik I15dz614CSLdqiBcN1pzbGYx ejwjgWFxtcscXMypzqC5DSUv XHBsYWluXGYxXGZzMjBcbGFu ZzEwMzNcaGljaFxmMVxkYmNo WCJmTBtvS5ebLcIbJmKxDWKV YjTMXUY2zF0nOOHrj0yoFKsq n1BeiKQfTO72xiKgRPGgUMFd dEtveHaeWV42C15mCQ9tTWbw ZGFspPAncTDduGJby9Gmb2zi r6PzrGlbNRBueXEgdblcVGow DHX2mNBmSFlll5PxyTVunzU0 uEUuFEjaU25xfSqerFUdhT95 YTG3cB7qdDPeIMFygNjsm7xa OlIGxyMgI3QlthZtlV1amBIy vSR4aP1vOVhlPWJeBCPrknRt ZXDeVAFadGrypImxGW98T48g NCAsfE47uaYbmnCccKjtwPEm W2OutUPrkoFcAG7nTAGhs95t STgdarWymP9cb7FleC1rOz3x DJvleWspj0TwP3SegfTfoSmm cmkgaXMgbmVnYXRpdmUuIFRo MMRxZNndIF2iBJH9k4DpODIb OQPzlbQqUCPmzP1zhDLsIZKv yfqzFBXmOo3sR5RhfMqfamGi qP67shMwZEX9ou1kg60wgIRk AUQzSLc4lfR6rH3zIFmxpITa x5JhOHWkVIRvoHDmqQ62npXe GP0aaTazU4MxsNdzsMHef4Gn UxEEyXAmj0V8NG1yaGWxOVXd y2NwGXpeEFbiYVMhsJIcovRp uTEgIdNSUGOxwE2ouClbypHp VA04B67jWHKpdX18yjZhweJv whZoaVm1wBOtCFXdDT4lVHXu PPVrcK8vK9V8MZQzwqSoJ7Nm QVQxvPIbjUvuNPFgRS2gRTZh RYHbb1q6cV9vdgOakGIzg3Fm y2vkh1HyV5xpy83fMdIsufIr GS8pUTEbk00no1f6tPJcXNXa QR2diDNer3SdqQkvNwKHurLi c3XpOSLjI7KptPWeRUHxwLsc c4wkNVoyFTOdHG3dHGGrsg9= SPECIAL STUDIES (test v9duzTVjNVLpr7xsRGAamCGh code = 3376) ZzEwMzNcZnRuYmpcdWMxIHtc hwHgBHcby1OzY4IeDyJsLMaj bnNpXGRlZmxhbmcxMDMzXGZ0 qdScQWIaMLaoKARfJKmeVj9e xSGhrIuqIzDlEETnm7pyrvAN psneiPz9u6gzYZMiRoR8hKKw ESqqQ9zrvpWrgRDtF0XvaHTg kLf4y3gqYlWhGrT2aGKpESnt B3rzpbMdrDQuITVnSAj7xI27 ZKEefE0pqCXpKHheuoLhElN3 VQosLFSaCjN7EPJzfMYmBIXp Z2xmXIAcQMevZYPtNFroiYMp STN5fXcqo8F9zCYclKHazVgs JjNpSsDoMvREg0PeODe2iRom R5LdLLSrDtK2nCXxKPKfOPff URMjIDAxhdA9fPlawvHze58q eHQyXGYwXGZzMjBcbGkwXHJp VJPWf9YzrKbxURC3cSh9tYor GzyzIAU2Wwp4IF3rrl02nnh3 lWboLDNvxsauYlR7JYuiYEMe olhtQUz9FPcfATObuMR9DAHl gRHeR8FaNRArYL7tclw5WMK4 YRwvDNJiIbK2UPYapQGgBYYo kPwgKLtme722MYJ6FqScMG9l F6Pul5Z8tP0kxPYaHXTwuALh AuCgLDZmmv0xcVNeEKjur6Ef OCF9auO8zOLzuTUrNWXgLF02 Ntxkx3FtZalra4VfG02lyDD4 WEsly4xyCE0hNaD4isPeHItq e0wlnL1jMiD3UBtzPQ7hGV1t FOJcqP7drvpdWZHkKrGrwdup AYGlmWjrxuZrAw8yzMwpCVB5 JIcsV3ehqL5tCvC9EWzzU5ye hB0dMVo5YYjonXW7BHZwoX0x GD2bpwgwd2drSVaaBSobQYTz ujG7euB9FQZlcPPzW3DyfA8o TRToCT4yvdjje7naEUT3XBbe TXUcFXL0RrQyDWYhq6Wsubi9 AsUoi2UfhCSrYUxyW38pz138 UAFjpmNxV6gfsPXsuwzfuTGl hfcaLKoxggE2HAWbHJBhSKme XGYxXGZzMjJcbGFuZzEwMzNc aGljaFxmMVxkYmNoXGYxXGxv Y5ioJjFdR9NtZEWlRfBkFKih LJmqxHQplQZpkYM0uF7uRZ1q AEZwyOSaP1OxJOYqegMagEWw IRD2rNBddBKiTT0gGSkghYSx u8raa2EiS7skiLrooMJ6TM3o NYIrJYHsAFqth8PedP2mYvvd bGFpblxmMVxmczIyXGxhbmcx PTUbSMfaO5ebGiDhMODdnSjt CCmlu8JqKVLkXBArXvsqkcEn AFp5lrEqUYPizlxlTTEoiAwd hH6aTqUhBtXiWhndAZ6qGSWw P9ziiBKoHEZwNORzH4mtGmOh rR4ifGgcBNgnFpDeXnVcKsBL m128yp3hSQKxzYOqhnJAyVAc tV3aBEwkPIxkYAkhgGXuNAgv p0frAFJbw0j7uHJuXTUcmmRc q6wkQBuinwEbZVBqwAEyjBCb NMRfk16cBNeyrJzkmTfdIIEp g0TyhEodx1OwVhWdHDqpr3Ju O88efIEgwUEslRjhUXHaopQx DQBvn25rv1bcXHIpVbE3dKXi dWE5zRGrzNLjr2NeuRpmTXZi z3jrSCArnd5qqwuuvFNhb1Re eU8mbdjzZLckuUSuvrLpAFZw l3z7uZLtXAXjRVEzKHptePq8 LNWsf441gy5zowH1nXTdTQI5 YWlsYWJsZSBhcmUgZXZhbHVh dGVkXHBsYWluXGYxXGZzMjJc bGFuZzEwMzNcaGljaFxmMVxk NcNdBDIrSMfiH3rqLxTuN8Ow BTWbNjMngIYcC0hgeWOdFKQi YWluXGYxXGZzMjJcbGFuZzEw MzNcaGljaFxmMVxkYmNoXGYx YPvhB1thPyOjV8XdFZQvRsTj IFxwbGFpblxmMVxmczIyXGxh wzutDRPeEGhzY9gySrDiCACd pWceVExmw9NaCWPgDEPgDgpg clQwSZb9nkQjJHIozslovXPw blxmMVxmczIyXGxhbmcxMDMz KDasL7xsUvPzBWUnnQooEQdg p4CaMWNdEVKbIgsvvtFgHWuo aBOhe3tfo2OuE9viySlnfLI4 JIRoY9kriYSekNM4NLA4kZ2t XQsqniYwVDKnm6NtZRXkMFGm NrB0aD3rKAZ5GrPMrQtiOVVo YWluXGYxXGZzMjJcbGFuZzEw MzNcaGljaFxmMVxkYmNoXGYx WYqwL7faDmOnJ2DdTVSiHrLg cLvmGRryZKg4YbbgoZJovitu MVxmczIyXGxhbmcxMDMzXGhp W7mkFuPdHMRgvLujCKeqz2Yy XGYxXGNmMlxmczIyIHMgTWVk aKLkuRGYWO46SSXeAVXgiAru tU2uvJFESLNeqqJ7z3Y3CGiy TKFsXHc7RBiudzTvVZMitQ6e MQHdUV8vVRu9rcZoFQYgi8Jl ML7yUHWuwBQsOAT6XECen1Kd L6Rce2EhPZHyWPLsmp4jbsEd KvMRzPZhKWEmih30ABPmYB3p X8sxUICxAZUbowXnlKSzg6Fq ZTGisZN2bIAnYR3IEoRDd60v IGFuZCBEcnVnIEFkbWluaXN0 rjB8sY9dSiNGdFOaEmUJYXlv noKiVBKrax8kbxHuSTMiLCEp k9EpkGHikSSsagFuS6Vvz4Hg ZFJkpa07GXnobHRetk71ZG5a W8Inz9HtcO2vIYlkLOGpk0Oi pZJyxUAuEUUek6JyI3tircpo LObdrLHztC5pDBJtFHu7ECEj c9MbCKChu5BhCbEngyGqCPSy HOKjOWKuuZ08MRW3qTwajDbi ksMwSN0pUTAbetThTUSfHNYr gC9yREyfbmJvLBPagiI4j8G4 CFvwHQBjtkYcDsneVZF0fmZv oeC1rTUiK5fklgttUNfqEXRh r7IpvA6tqERXxWJml2XziEXt cSERqGBjTA0hybHwFE7pUME5 ODggKENMSUEtODgpIGFzIHF1 DIdmKcltOHZ5jxGzIJJhr6Ec VEdwQ4tdQ55cnAeyiAw7cYEy xKccfDBpbUIkMHHqmjP6r6R3 DBYfn5XdrdppRSHbGBzrQKRv XGZzMjJcbGFuZzEwMzNcaGlj aLviTuvwKcKjBDNsBGkjB2di ZkNcXjHaNvcdJJL4dA== Gross assessment was [facility] performed at (test [facility], code = 2777) Department of Pathology, [address] [place] [address], Technical component [facility] was performed at [facility], (test code = 2778) Department of Pathology, [address] [place] [address], Professional [facility] component was Medical Center, performed at ([facility] Department of Pathology, code = 2779) [address] [facility], [place] [address], [facility] Center[facility] [id number] 13:01:00Surgical Pathology Report Case: [id number] Authorizing Provider: Myrna Monsalve MD Collected: 05/27/2020 08:20 AM Ordering Location: [address] Received: 05/27/2020 02:50 PM SERVICE Pathologist: [...] ISLAS METAPLASIA Signing Pathologist Direct Phone Line: [phone] signed by Rosa Cisneros MD on 05/28/2020 at 1:01 PM.[id number] x2, [id number] A. Random gastric biopsy, rule out H. [...] evaluated Immunohistochemistry technical testing was performed at [facility], Pathology Laboratory where it was developed [...] as qualified to perform highcomplexity clinical laboratory testing.[facility], Department of Pathology, [address] [place], [place] [id number], [facility], [address] [place] [address], [facility], [address] [place] [address], KWR W/PLT COUNT & AUTO [id number] 06:41:00 Test Item Value Reference Range Interpretation [...] CONCENTRATION Decreased (CELLAVISION)(BEAKER) (test code = 3438) Travel Sales Consultant ID - Kaylee Martines comments: Slide comments:COMPREHENSIVE METABOLIC [id number] 05:00:00 Test Item Value Reference Range Interpretation [...] S NOT APPLICABLE FOR DIALYSIS PATIEN TS. Travel Sales Consultant ID - BONILLA MBASIC METABOLIC [id number] 05:00:00 Test Item Value Reference Range Interpretation [...] S NOT APPLICABLE FOR DIALYSIS PATIEN TS. [id number] 04:45:00 Test Item Value Reference Range Interpretation Comments MAGNESIUM (BEAKER) (test code = 1.9 mg/dL 1.6-2.6 627) Travel Sales Consultant ID - BONILLA EPATIC FUNCTION [id number] 04:45:00 Test Item Value Reference Range Interpretation [...] (test code = 9 U/L 6-55 347) Travel Sales Consultant EVELYNE - BONILLA [id number] 04:33:00 Test Item Value Reference Range Interpretation Comments D-Dimer, Quant (test code 3.35 <0.50 MG/L FEU H = 22862-0) FATNA (test code = FANTA) Intended Use: The [...] range. Lab Interpretation (test Abnormal code = 52622-3) [facility]-[id number] 04:33:00 Test Item Value Reference Range Interpretation [...] exclusion of thrombosis is within 95-100% range. PT/[id number] 04:31:00 Test Item Value Reference Range Interpretation [...] detected HCV RNA not (test code = 45129-0) detected FANTA (test code = FANTA) This test uses a Real-Time Polymerase Chain Reaction (RT-PCR) methodology and was performed using BAIRON Ampliprep/BAIRON TaqMan HCV test kit version 2.0 ([employer]). Reportable range for this assay is 15 - 100,000,000 IU per mL (1.18 - 8.00 Log IU/mL). Lab Interpretation Normal (test code = 14353-4) [facility] PCR, [id number] 22:57:00 Test Item Value Reference Range Interpretation Comments HCV RESULT COMPONENT HCV RNA not detected HCV RNA not detected (BEAKER) (test code = 2699) This test uses a Real-Time Polymerase Chain Reaction (RT-PCR) methodology and was performed using BAIRON Ampliprep/BAIRON TaqMan HCV test kit version 2.0 ([employer]).Reportable range for this assay is 15 - 100,000,000 IU per mL (1.18 - 8.00 Log IU/mL).Manual [id number] 12:07:00 Test Item Value Reference Range Interpretation [...] few Lab Interpretation (test code = Abnormal 62884-0) [facility] W/PLT COUNT & AUTO [id number] 12:07:00 Test Item Value Reference Range Interpretation [...] code = 1+ few 477) BASIC METABOLIC [id number] 04:27:00 Test Item Value Reference Range Interpretation [...] S NOT APPLICABLE FOR DIALYSIS PATIEN TS. 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 WBCs with mild left shift, including occasional myeloid precursors, no blasts seen. Few hypersegmented neutrophils. Thrombocytopenia with unremarkable morphology. Pathologist: (test Maddie Carolyn code = 2849) Bebeto Dsouza [facility] - PATHOLOGIST REVIEW 2020-05-26 14:31:00 Test Item Value Reference Range Interpretation Comments PERIPHERAL SMR Macrocytic anemia, REVIEW (BEAKER) 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 WBCs with mild left shift, including occasional myeloid precursors, no blasts seen. Few hypersegmented neutrophils. Thrombocytopenia with unremarkable morphology. [id number]-[id number]-734 Maddie Carolyn 2 (BEAKER) (test Bebeto Dsouza code = 2849) [id number] 13:50:00 Test Item Value Reference Range Interpretation [...] within 95-100% range.CBC W/PLT COUNT & AUTO [id number] 07:48:00 Test Item Value Reference Range Interpretation [...] CONCENTRATION Decreased (CELLAVISION)(BEAKER) (test code = 3438) Travel Sales Consultant ID - Chris Mtz comments: Slide comments:COMPREHENSIVE METABOLIC [id number] 05:43:00 Test Item Value Reference Range Interpretation [...] S NOT APPLICABLE FOR DIALYSIS PATIEN TS. Travel Sales Consultant ID - EDASIBASIC METABOLIC [id number] 05:38:00 Test Item Value Reference Range Interpretation [...] S NOT APPLICABLE FOR DIALYSIS PATIEN TS. [id number] 05:34:00 Test Item Value Reference Range Interpretation Comments PHOSPHORUS (BEAKER) (test code = 7.6 mg/dL 2.3-4.7 H 604) Travel Sales Consultant ID - [id number] 05:34:00 Test Item Value Reference Range Interpretation Comments MAGNESIUM (BEAKER) (test code = 2.0 mg/dL 1.6-2.6 627) Travel Sales Consultant ID - EDASIHEPATIC FUNCTION [id number] 05:34:00 Test Item Value Reference Range Interpretation [...] (test code = 6 U/L 6-55 347) Travel Sales Consultant ID - EDASIPT/UPQA8981-88-56 04:50:00 Test Item Value Reference Range Interpretation [...] is2.5-3.5 for patients wiht mechanical heart valves.CALCIUM, [id number] 03:59:00 Test Item Value Reference Range Interpretation Comments CALCIUM IONIZED (BEAKER) (test 1.08 mmol/L 1.12-1.27 L code = 698) PH, BLOOD (BEAKER) (test code = 7.49 1810) TSH/Free T4 If [id number] 20:19:00 Test Item Value Reference Range Interpretation Comments TSH (test code = 3.581 0.350- 4.940 uIU/mL 68030-6) FANTA (test code = FANTA) Travel Sales Consultant ID - ABBY F Lab Interpretation (test Normal code = 32959-2) [facility] CenterTSH/FREE T4 IF [id number] 20:19:00 Test Item Value Reference Range Interpretation Comments THYROID STIMULATING HORMONE 3.581 uIU/mL 0.350-4.940 (BEAKER) (test code = 772) Travel Sales Consultant ID - ABBY FHEMOGLOBIN AND [id number] 19:42:00 Test Item Value Reference Range Interpretation Comments HEMOGLOBIN (BEAKER) (test code = 9.0 GM/DL 13.7-17.5 L 410) HEMATOCRIT (BEAKER) (test code = 26.7 % 40.1-51.0 L 411) Travel Sales Consultant ID - 6000CBC W/PLT COUNT & AUTO [id number] 14:10:00 Test Item Value Reference Range Interpretation [...] H PERCENT (BEAKER) (test code = 2801) [id number] 12:23:00 Test Item Value Reference Range Interpretation [...] 125-220 H FANTA (test code = FANTA) Travel Sales Consultant EVELYNE Ruiz ABBY F Lab Interpretation (test Abnormal code = 62198-8) [facility] CenterLACTATE DEHYDROGENASE (LDH)2020-05-25 12:15:00 Test Item Value Reference Range Interpretation Comments LACTATE DEHYDROGENASE (BEAKER) (test 341 U/L 125-220 H code = 635) Travel Sales Consultant EVELYNE NORRIS FProthrombin time/[id number] 12:13:00 Test Item Value Reference Range Interpretation [...] valves. Lab Interpretation Abnormal (test code = 07448-5) [facility] CenterPROTHROMBIN TIME/[id number] 12:13:00 Test Item Value Reference Range Interpretation [...] for patients wiht mechanical heart valves.HEMOGLOBIN AND [id number] 12:01:00 Test Item Value Reference Range Interpretation Comments HEMOGLOBIN (BEAKER) (test code = 9.0 GM/DL 13.7-17.5 L 410) HEMATOCRIT (BEAKER) (test code = 27.0 % 40.1-51.0 L 411) Travel Sales Consultant ID - [id number] 11:50:00 Test Item Value Reference Range Interpretation Comments Haptoglobin (test code = 172 mg/dL 14-258 4542-7) FANTA (test code = FANTA) Travel Sales Consultant ID - ABBY Crump Lab Interpretation (test Normal code = 80853-8) [facility] CenterHAPTOGLOBIN2020-10-05 11:50:00 Test Item Value Reference Range Interpretation Comments HAPTOGLOBIN (BEAKER) (test code = 172 mg/dL 02-562 505) Travel Sales Consultant ID - ABBY Bragg Echo W/Doppler(CW/PW/Color)2020-05-25 10:53:54 Ejection FractionSLEH ECHO HEARTLAB MKJAN CPACSInterface, External Ris In - 05/25/2020 10:54 AM CDTTransthoracic Echocardiography Report (TTE) Demographics Patient Name THIERRY PADILLA Date ofStudy 05/24/2020 KYLIE Gender Male Visit Number [id number] Race Unknown Room Number 7217 Number Date of 1965 Referring Physician Age55 year(s) 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 Nieves Lopes 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 Operator Owen Valdivia Interpreting Physician BEVERLEY Roche Procedure [...] CO: 5.41 l/min LVOT CI: 3.06 l/min/m^2[facility], TESTICULAR (SCROTUM)2020-05-25 08:58:00Reason for exam:->rule out [...] Signed: Roya Verde Verified Date/Time: 05/25/2020 08:58:57 [facility] 08:16:00 Test Item Value Reference Range Interpretation Comments Ferritin (test code = 87168.32 ng/mL 5-275 H 2276-4) FANTA (test code = FANTA) Travel Sales Consultant ID - EDASI Lab Interpretation (test Abnormal code = 62296-9) [facility]2020-10-05 08:16:00 Test Item Value Reference Range Interpretation Comments FERRITIN (BEAKER) (test code = 65070.32 ng/mL 5.00-275.00 H 361) Travel Sales Consultant ID - EDASICBC W/PLT COUNT & AUTO [id number] 08:02:00 Test Item Value Reference Range Interpretation [...] CONCENTRATION Decreased (CELLAVISION)(BEAKER) (test code = 3438) Travel Sales Consultant ID - Jonna Pascual comments: Slide comments:RAD, CHEST, 1 VIEW, NON [id number] 04:42:00Reason for exam:->pulmonary edemaShould this be performed [...] 04:42:11 XR chest 1 view portable / [id number] 04:42:00 Interface, External Ris In - 05/25/2020 4:44 AM CDTFINAL REPORT RAD, CHEST, 1 VIEW, NON DEPT INDICATION: pulmonary edema COMPARISON: Prior day's exam FINDINGS: Portable frontal view of the chest. IMPRESSION: Support Lines: Stable. Lungs and pleura: Unchanged venous congestion and interstitial opacities. No consolidation or effusion. No pneumothorax.Heart and mediastinum: Stable contours.Additional findings: None. Signed: Sally Renae Verified Date/Time: 05/25/2020 04:42:11 [facility], TIBC, % sat. (without ferritin)2020-05-25 04:31:00 Test Item Value Reference Range Interpretation Comments Iron (test code = 2498-4) 118.0 ug/dL 40-160 TIBC (test code = 2500-7) 170 ug/dL 250-450 L Iron % Saturation (test 69 % 20-55 H code = 2502-3) FANTA (test code = FANTA) Travel Sales Consultant ID - EDASI Lab Interpretation (test Abnormal code = 37780-1) [facility], TIBC, % SAT. (WITHOUT FERRITIN)2020-05-25 04:31:00 Test Item Value Reference Range Interpretation Comments IRON (BEAKER) (test code = 547) 118.0 ug/dL 40.0-160.0 TOTAL IRON BINDING CAPACITY 170 ug/dL 250-450 L (BEAKER) (test code = 769) IRON % SATURATION (2) (BEAKER) 69 % 20-55 H (test code = 2590) Travel Sales Consultant ID - EDASITroponin [id number] 04:23:00 Test Item Value Reference Range Interpretation Comments Troponin I (test code = 0.46 ng/mL 0-0.03 92702-0) FANTA (test code = FANTA) Troponin I [...] DB Lab Interpretation (test Abnormal code = 64150-4) [facility]TR[facility] [id number] 04:23:00 Test Item Value Reference Range Interpretation [...] failure, acidosis, acute neurological disease, and persistent tachyarrhythmia.Travel Sales Consultant ID - [id number] 04:20:00 Test Item Value Reference Range Interpretation Comments PHOSPHORUS (BEAKER) (test code = 10.5 mg/dL 2.3-4.7 604) Travel Sales Consultant ID - DBCOMPREHENSIVE METABOLIC [id number] 04:19:00 Test Item Value Reference Range Interpretation [...] S NOT APPLICABLE FOR DIALYSIS PATIEN TS. Travel Sales Consultant ID - [id number] 04:11:00 Test Item Value Reference Range Interpretation Comments MAGNESIUM (BEAKER) (test code = 2.0 mg/dL 1.6-2.6 627) Travel Sales Consultant ID - DBHEPATIC FUNCTION [id number] 04:11:00 Test Item Value Reference Range Interpretation [...] (test code = 9 U/L 6-55 347) Travel Sales Consultant ID - DBPT/[id number] 04:11:00 Test Item Value Reference Range Interpretation [...] is2.5-3.5 for patients wiht mechanical heart valves.Reticulocyte [id number] 04:06:00 Test Item Value Reference Range Interpretation Comments % Retic (test code = 1.5 % 0.5-1.8 44046-6) FANTA (test code = FANTA) Travel Sales Consultant ID - 6000 Lab Interpretation (test Normal code = 44161-8) [facility] CenterRETICULOCYTE [id number] 04:06:00 Test Item Value Reference Range Interpretation Comments RETICULOCYTE COUNT PCT (BEAKER) (test 1.5 % 0.5-1.8 code = 575) Travel Sales Consultant ID - 6000Lactic acid, [id number] 04:05:00 Test Item Value Reference Range Interpretation Comments Lactate, Venous (test code = 0.42 mmol/L 0.5-2.2 L 2872) FANTA (test code = FANTA) Travel Sales Consultant ID - DB Lab Interpretation (test Abnormal code = 19093-5) [facility] CenterLACTIC ACID, [id number] 04:05:00 Test Item Value Reference Range Interpretation Comments LACTATE BLOOD VENOUS (2) (BEAKER) 0.42 mmol/L 0.50-2.20 L (test code = 2872) Travel Sales Consultant ID - DBCALCIUM, [id number] 04:03:00 Test Item Value Reference Range Interpretation Comments CALCIUM IONIZED (BEAKER) (test 1.02 mmol/L 1.12-1.27 L code = 698) PH, BLOOD (BEAKER) (test code = 7.44 1810) Hepatitis B surface [id number] 21:41:00 Test Item Value Reference Range Interpretation Comments HBsAg Screen (test code Nonreactive Nonreactive = 5195-3) FANTA (test code = FANTA) Specimen is considered negative for HBsAg. Lab Interpretation (test Normal code = 77807-2) [facility] CenterHEPATITIS B SURFACE [id number] 21:41:00 Test Item Value Reference Range Interpretation Comments HEPATITIS B SURFACE ANTIGEN (2) Nonreactive Nonreactive (BEAKER) (test code = 2585) Specimen is considered negative for HBsAg.HEMOGLOBIN AND [id number] 20:59:00 Test Item Value Reference Range Interpretation Comments HEMOGLOBIN (BEAKER) (test code = 6.9 GM/DL 13.7-17.5 L 410) HEMATOCRIT (BEAKER) (test code = 20.8 % 40.1-51.0 L 411) Travel Sales Consultant ID - 6000TROPONIN [id number] 18:22:00 Test Item Value Reference Range Interpretation [...] failure, acidosis, acute neurological disease, and persistent tachyarrhythmia.Travel Sales Consultant ID - ROSIANGB-type Natriuretic Factor (BNP)2020-05-24 18:01:00 Test Item Value Reference Range Interpretation Comments BNP (test code = 57091-8) 202 pg/mL 0-100 H FANTA (test code = FANTA) Travel Sales Consultant ID - NATASHA Lab Interpretation (test Abnormal code = 09113-0) [facility] CenterB-TYPE NATRIURETIC FACTOR (BNP)2020-05-24 18:01:00 Test Item Value Reference Range Interpretation Comments B-TYPE NATRIURETIC PEPTIDE (BEAKER) 202 pg/mL 0-100 H (test code = 700) Travel Sales Consultant EVELYNE LUAIV-1 Antigen with HIV-1/2 Fxrypalt4803-92-25 13:43:00 Test Item Value Reference Range Interpretation Comments HIV-1 Antigen with HIV 1&2 Nonreactive Nonreactive Antibody (test code = 46217-1) Lab Interpretation (test code = Normal 66376-4) [facility] CenterHIV-[facility] ANTIGEN WITH HIV-1/2 [id number] 13:43:00 Test Item Value Reference Range Interpretation Comments HIV-1 ANTIGEN WITH HIV 1\\T\\2 Nonreactive Nonreactive ANTIBODY (2) (BEAKER) (test code = 2586) TROPONIN [id number] 13:42:00 Test Item Value Reference Range Interpretation [...] failure, acidosis, acute neurological disease, and persistent tachyarrhythmia.Travel Sales Consultant ID - CHERYLASIC METABOLIC [id number] 13:37:00 Test Item Value Reference Range Interpretation [...] S NOT APPLICABLE FOR DIALYSIS PATIEN TS. Travel Sales Consultant ID - [id number] 13:10:00 Test Item Value Reference Range Interpretation Comments PHOSPHORUS (BEAKER) (test code = 6.3 mg/dL 2.3-4.7 H 604) Travel Sales Consultant ID - ROSIANGHEMOGLOBIN AND [id number] 12:38:00 Test Item Value Reference Range Interpretation Comments HEMOGLOBIN (BEAKER) (test code = 7.7 GM/DL 13.7-17.5 L 410) HEMATOCRIT (BEAKER) (test code = 22.7 % 40.1-51.0 L 411) Travel Sales Consultant ID - 6000Hemoglobin [id number] 09:17:00 Test Item Value Reference Range Interpretation Comments Hemoglobin A1C (test code = 4548-4) 5.8 % 4.3-6.1 Lab Interpretation (test code = Normal 96824-0) [facility] CenterHEMOGLOBIN [id number] 09:17:00 Test Item Value Reference Range Interpretation Comments HEMOGLOBIN A1C (BEAKER) (test code = 5.8 % 4.3-6.1 368) TROPONIN [id number] 08:48:00 Test Item Value Reference Range Interpretation [...] failure, acidosis, acute neurological disease, and persistent tachyarrhythmia.Travel Sales Consultant ID - ROSIANGBASIC METABOLIC [id number] 08:33:00 Test Item Value Reference Range Interpretation [...] S NOT APPLICABLE FOR DIALYSIS PATIEN TS. Travel Sales Consultant ID - ROSIANGHEMOGLOBIN AND [id number] 08:12:00 Test Item Value Reference Range Interpretation Comments HEMOGLOBIN (BEAKER) (test code = 8.1 GM/DL 13.7-17.5 L 410) HEMATOCRIT (BEAKER) (test code = 23.5 % 40.1-51.0 L 411) Travel Sales Consultant ID - 6000Vitamin B12 and Fnqrpu4277-32-89 05:56:00 Test Item Value Reference Range Interpretation Comments Vitamin B12 (test code = 237 pg/mL 929-621 6555-9) Folate (test code = 4.00 ng/mL >=7.00 L 2284-8) FANTA (test code = FANTA) Travel Sales Consultant ID - EDASI Lab Interpretation (test Abnormal code = 50627-7) [facility] CenterVITAMIN B12 AND [id number] 05:56:00 Test Item Value Reference Range Interpretation Comments VITAMIN B12 (BEAKER) (test code = 237 pg/mL 213-816 774) FOLATE (BEAKER) (test code = 362) 4.00 ng/mL >=7.00 L Travel Sales Consultant ID - EDASIBASIC METABOLIC [id number] 04:53:00 Test Item Value Reference Range Interpretation [...] S NOT APPLICABLE FOR DIALYSIS PATIEN TS. Travel Sales Consultant ID - [id number] 04:52:00 Test Item Value Reference Range Interpretation Comments PHOSPHORUS (BEAKER) (test code = 13.6 mg/dL 2.3-4.7 HH 604) Travel Sales Consultant ID - EDASICALCIUM, [id number] 04:49:00 Test Item Value Reference Range Interpretation Comments CALCIUM IONIZED (BEAKER) (test 0.96 mmol/L 1.12-1.27 L code = 698) PH, BLOOD (BEAKER) (test code = 7.23 1810) [id number] 04:42:00 Test Item Value Reference Range Interpretation Comments MAGNESIUM (BEAKER) (test code = 2.6 mg/dL 1.6-2.6 627) Travel Sales Consultant ID - EDASIHEPATIC FUNCTION [id number] 04:42:00 Test Item Value Reference Range Interpretation [...] (test code = 12 U/L 6-55 347) Travel Sales Consultant ID - EDASIPT/[id number] 04:41:00 Test Item Value Reference Range Interpretation [...] mechanical heart valves.CBC W/PLT COUNT & AUTO [id number] 04:37:00 Test Item Value Reference Range Interpretation [...] (BEAKER) (test code = 2801) LACTIC ACID, [id number] 04:29:00 Test Item Value Reference Range Interpretation Comments LACTATE BLOOD VENOUS (2) (BEAKER) 0.34 mmol/L 0.50-2.20 L (test code = 2872) Travel Sales Consultant ID - YEFRI, [id number] 04:16:00 Test Item Value Reference Range Interpretation Comments ABO Grouping (test code = 2588) O Rh Factor (test code = 2589) [facility]pt[facility] ONLY[facility]2020-05-24 04:13:00 Test Item Value Reference Range Interpretation Comments SARS-COV2/RT-PCR Negative Not Detected, (test code = Negative, See 25961-4) external report for linked test SARS-COV-2 [facility] PERFORMING LAB (test code = 15295-5) FANTA (test code = Negative results do [...] of the Act. Fact Sheet for Healthcare Providers:https://www.Skyera/Documents/Xper t%20Xpress%20SARS%20CoV- 2/Fact%20Sheets/302-3802 %66DVCB-UCA-0%20HEALTHCA RE%20PROVIDERS%20FACT%20 SHEET.pdf Fact Sheet for Healthcare Patients:https://www.[employer] Harvest.[employer]/Documents/Xpert %20Xpress%20SARS%20CoV-2 /Fact%20Sheets/302-3801% 79FSEQ-KAO-5%20PATIENT%2 0FACT%20SHEET.pdf Performing Laboratory:[facility] [place], [place] [address]uis [address], [place] [address] [place], [place] [address]ARS-COV2/RT-PCR ([facility])2020-05-24 04:13:00 Test Item Value Reference Range Interpretation Comments SARS-COV2/RT-PCR (test code Negative Not Detected, Negative, = 2170433) See external report for linked test SARS-COV-[address] [facility] (test code = 2637247) Negative results do not preclude SARS-CoV-2 infection [...] of the Act.Fact Sheet for Healthcare Pro viders:https://www.MyParichay/Documents/Xpert%20Xpress%20SARS%20CoV-2/Fact%20Sh eets/3023802%97FQXO-GZR-3%20HEALTHCARE%20PROVIDERS%20FACT%20SHEET.pdfFact Sheet for Healthcare Patients:https://www.P-Commerce/Documents/Xpert%20Xpress%20SARS%20CoV-2/Fact%20Sheets/3023801%20SARS-COV -2%20PATIENT%20FACT%20SHEET.pdfPerforming Laboratory:[facility], [place] [address]LG/[id number] 03:29:00 Test Item Value Reference Range Interpretation [...] is2.5-3.5 for patients wiht mechanical heart valves.TROPONIN [id number] 02:23:00 Test Item Value Reference Range Interpretation [...] failure, acidosis, acute neurological disease, and persistent tachyarrhythmia.Travel Sales Consultant ID Joseph FUNEZ WBASIC METABOLIC [id number] 02:22:00 Test Item Value Reference Range Interpretation [...] S NOT APPLICABLE FOR DIALYSIS PATIEN TS. Travel Sales Consultant ID Joseph FUNEZ [id number] 02:21:00 Test Item Value Reference Range Interpretation Comments PHOSPHORUS (BEAKER) (test code = 14.1 mg/dL 2.3-4.7 HH 604) Travel Sales Consultant ID Joseph FUNEZ [id number] 02:16:00 Test Item Value Reference Range Interpretation Comments MAGNESIUM (BEAKER) (test code = 2.6 mg/dL 1.6-2.6 627) Travel Sales Consultant ID Joseph FUNEZ WHEPATIC FUNCTION [id number] 02:16:00 Test Item Value Reference Range Interpretation [...] (test code = 10 U/L 6-55 347) Travel Sales Consultant ID Joseph FUNEZ WB-TYPE NATRIURETIC FACTOR (BNP)2020-05-24 02:12:00 Test Item Value Reference Range Interpretation Comments B-TYPE NATRIURETIC PEPTIDE (BEAKER) 459 pg/mL 0-100 H (test code = 700) Travel Sales Consultant EVELYNE FUNEZ WCBC W/PLT COUNT & AUTO [id number] 02:11:00 Test Item Value Reference Range Interpretation [...] (BEAKER) (test code = 2801) LACTIC ACID, [id number] 02:03:00 Test Item Value Reference Range Interpretation Comments LACTATE BLOOD VENOUS (2) (BEAKER) 0.68 mmol/L 0.50-2.20 (test code = 2872) Travel Sales Consultant ID - DEE DEE ANNIEpecimejuan antonio slightly [...] MDReport Verified Date/Time: 05/24/2020 01:55:13 Blood gas, [id number] 01:37:00 Test Item Value Reference Range Interpretation Comments pH, Duc (test code = 2746-6) 7.27 7.32-7.42 L pCO2, Duc (test code = 755) 26 41- 51 mmHg L pO2, Duc (test code = 2705-2) 63 25- 40 mmHg H O2 Sat, Duc (test code = 2711-0) 89.7 % 40-70 H HCO3, Duc (test code = 59891-5) 12 mmol/L 21-29 L Base Excess, Duc (test code = -14.0 mmol/L -2-3 L 1927-3) Patient Temperature (test code = 37.0 C 8310-5) FIO2 (test code = 1819) 100 % Lab Interpretation (test code = Abnormal 43417-1) [facility] CenterBL[facility]OD GAS, [id number] 01:37:00 Test Item Value Reference Range Interpretation [...] (BEAKER) (test code = 1819) 100.0 % RBP-[id number] 00:00:00Ordered by an unspecified provider.[facility] ([facility])2020-02-23 11:58:00 Test Item Value Reference Range Interpretation Comments SARS-COV2/RT-PCR (test code = Negative Not Detected, Negative 9389967) SARS-COV-[address] [facility] (test code = 1462336) Negative result for this test determines that [...] 564(g) of the Act.Fact Sheet for Healthcare Providers:https://www.ON24idel.com/sites/default/files/product/documents/Fact_Shee y_IY_Pzjbzaimn_Zfuz_ITIC-IsZ-7.pdfFact Sheet for Healthcare Patients:https://www.SocialPandas.com/sites/default/files/product/ documents/Mmri_Zgzmy_Mohzdvdq_Bvch_NWBH-YjT-1.pdfPerforming Laboratory:[facility] [place] [address]
[2020-07-24 14:01] LABS: Potassium 6.4 mmol/L (3.5-5.1)
--- NOTE | 2020-07-24 14:06 | RAD REPORT ---
EXAM DESCRIPTION: RAD - Chest Single View - 07/24/2020 1:59 pm CLINICAL HISTORY: MALAISE Chest pain. COMPARISON: Chest Single View dated 07/20/2020; Chest Single View dated 07/15/2020; Chest Single Vie w dated 07/11/2020; Chest Single View dated 07/02/2020 FINDINGS: Portable technique limits examination quality. Mild pulmonary edema is noted. The heart is mildly prominent in size. No displaced fractures.Right ve nous catheter tips in the SVC. IMPRESSION: Mild pulmonary edema.
[2020-07-24] MEDS ORDERED: MORPHINE 4 MG/ML SYR ONE (14:07)
[2020-07-24 14:38] LABS: Arterial Blood Carboxyhemoglob 2.3 % (0-1.5); Blood Gas Oxyhemoglobin 91.8 % (94-97); Blood O2 Saturation 95.2 % (92-98.5)
[2020-07-24 15:10] LABS: Absolute Lymphocytes (CBC) 2.7 K/uL (0.7-4.9); Basophils % 1.2 % (0-1.3); Hematocrit 21.1 % (39.6-49.0); Lymphocytes % 21.6 % (15.3-44.8); MPV 7.8 fL (7.6-11.3); RBC Red Blood Cell Count 2.19 M/uL (4.33-5.43)
[2020-07-24 15:21] LABS: Albumin 2.8 g/dL (3.4-5.0); Bilirubin Direct 0.1 mg/dL (0-0.2); Bilirubin Total 0.4 mg/dL (0.2-1.0); Phosphorus 6.5 mg/dL (2.5-4.9); Protein, Total 6.8 g/dL (6.4-8.2); Uric Acid 9.3 mg/dL (3.5-7.2)
--- NOTE | 2020-07-24 15:40 | EDPHYS ---
Physician Documentation [facility] Name: Cr Orellana Age: 55 yrs Sex: Male : 1965 Arrival Date: 07/24/2020 Time: 12:11 Bed 25 Private MD: Rei Veliz HPI: 07/24 13:53 This 55 yrs old Male presents to ER via Wheelchair with complaints of General snw Weakness. 13:53 Onset: The symptoms/episode began/occurred gradually. Associated signs and symptoms: snw Pertinent positives: exacerbation of chronic pain. Pt states he missed his dialysis x 2 because he didn't have a ride. The patient has experienced similar episodes in the past. It is unknown whether or not the patient has recently seen a physician. hx of chronic pain. Historical: - Allergies: 12:20 No Known Allergies; ss - PMHx: 12:20 DIALYSIS MWF; Hypertension; seasonal allergies; ss - Immunization history:: Adult Immunizations up to date. - Social history:: Smoking status: Patient/guardian denies using tobacco, but has a distant history of tobacco abuse. ROS: 13:52 Eyes: Negative for injury, pain, redness, and discharge, ENT: Negative for injury, snw pain, and discharge, Neck: Negative for injury, pain, and swelling, Cardiovascular: Negative for chest pain, palpitations, and edema, Respiratory: Negative for shortness of breath, cough, wheezing, and pleuritic chest pain, Abdomen/GI: Negative for abdominal pain, nausea, vomiting, diarrhea, and constipation, Back: Negative for injury and pain, : Negative for injury, bleeding, discharge, and swelling. 13:52 Skin: Negative for injury, rash, and discoloration, Neuro: Negative for headache, weakness, numbness, tingling, and seizure, Psych: Negative for depression, anxiety, suicide ideation, homicidal ideation, and hallucinations. 13:52 Constitutional: Positive for fatigue, malaise. 13:52 MS/extremity: Positive for Shaky, pain in back and all over. Exam: 13:52 Head/Face: Normocephalic, atraumatic. Eyes: Pupils equal round and reactive to light, snw extra-ocular motions intact. Lids and lashes normal. Conjunctiva and sclera are non-icteric and not injected. Cornea within normal limits. Periorbital areas with no swelling, redness, or edema. ENT: Nares patent. No nasal discharge, no septal abnormalities noted. Tympanic membranes are normal and external auditory canals are clear. Oropharynx with no redness, swelling, or masses, exudates, or evidence of obstruction, uvula midline. Mucous membranes moist. Neck: Trachea midline, no thyromegaly or masses palpated, and no cervical lymphadenopathy. Supple, full range of motion without nuchal rigidity, or vertebral point tenderness. No Meningismus. Chest/axilla: Normal chest wall appearance and motion. Nontender with no deformity. No lesions are appreciated. Cardiovascular: Regular rate and rhythm with a normal S1 and S2. No gallops, murmurs, or rubs. Normal PMI, no JVD. No pulse deficits. Respiratory: Lungs have equal breath sounds bilaterally, clear to auscultation and percussion. No rales, rhonchi or wheezes noted. No increased work of breathing, no retractions or nasal flaring. Abdomen/GI: Soft, non-tender, with normal bowel sounds. No distension or tympany. No guarding or rebound. No evidence of tenderness throughout. Back: No spinal tenderness. No costovertebral tenderness. Full range of motion. Skin: Warm, dry with normal turgor. Normal color with no rashes, no lesions, and no evidence of cellulitis. MS/ Extremity: Pulses equal, no cyanosis. Neurovascular intact. Full, normal range of motion. Neuro: Awake and alert, GCS 15, oriented to person, place, time, and situation. Cranial nerves II-XII grossly intact. Motor strength 5/5 in all extremities. Sensory grossly intact. Cerebellar exam normal. Normal gait. 13:52 Constitutional: The patient appears alert, awake, anxious, unkempt. 13:52 Psych: Behavior/mood is anxious. Vital Signs: 12:18 BP 139 / 91; Pulse 86; Resp 17; Temp 97.5(TE); Pulse Ox 99% on R/A; Weight 65.77 kg; ss Height 5 ft. 6 in. (167.64 cm); Pain 9/10; 14:00 BP 163 / 94; Pulse 96; Resp 18; Pulse Ox 99% on R/A; zb 15:00 BP 147 / 81; Pulse 98; Resp 16; Pulse Ox 98% on R/A; zb 16:00 BP 138 / 102; Pulse 95; Resp 16; Pulse Ox 99% on R/A; zb 12:18 Body Mass Index 23.40 (65.77 kg, 167.64 cm) ss MDM: 12:22 Patient medically screened. snw 15:34 Data reviewed: vital signs, nurses notes. Data interpreted: Pulse oximetry: on room air snw is 99 %. Interpretation: normal. Counseling: I had a detailed discussion with the patient and/or guardian regarding: the historical points, exam findings, and any diagnostic results supporting the discharge/admit diagnosis, the presence of at least one elevated blood pressure reading (>120/80) during this emergency department visit, lab results, radiology results, the need for further work-up and treatment in the hospital. Physician consultation: Marcela Morales MD was called at 15:35, was contacted at 15:35, regarding consult, patient's condition, Dialysis today with 1 unit PRBC during dialysis. 15:37 Physician consultation: Renato Busch was called at 15:38, was contacted at 15:38, snw regarding admission, to the telemetry unit. 07/24 12:24 Order name: Chem 7; Complete Time: 14:04 snw 07/24 14:04 Order name: CBC with Diff; Complete Time: 16:21 snw 07/24 14:04 Order name: LFT's; Complete Time: 15:22 snw 07/24 14:04 Order name: Phosphorus; Complete Time: 15:22 snw 07/24 14:04 Order name: Uric Acid; Complete Time: 15:22 snw 07/24 14:04 Order name: ABG: venous blood okay; Complete Time: 14:40 snw 07/24 12:24 Order name: Chest Single View XRAY; Complete Time: 14:29 snw 07/24 15:18 Order name: COVID-19 snw 07/24 16:09 Order name: CBC Smear Scan; Complete Time: 16:21 EDMS 07/24 17:19 Order name: SARS-COV-2 RT PCR; Complete Time: 17:27 EDMS 07/24 18:49 Order name: ABO/RH typing EDIN 07/24 18:49 Order name: Antibody Screen EDIN 07/24 12:24 Order name: EKG; Complete Time: 12:25 snw 1204 12:24 Order name: EKG - Nurse/Tech; Complete Time: 12:41 snw 04 14:04 Order name: PIV; Complete Time: 14:57 snw EC:38 Rate is 80 beats/min. Rhythm is regular. QRS Carbon is Normal. IA interval is normal. QRS snw interval is normal. QT interval is normal. No Q waves. T waves are Normal. No ST changes noted. Clinical impression: Normal ECG. Administered Medications: 13:55 Drug: morphine 4 mg Route: IM; Site: left deltoid; zb 16:00 Follow up: Response: No adverse reaction; Pain is decreased; RASS: Drowsy (-1) zb 15:19 Drug: D50W 50 ml Route: IVP; Site: left upper arm; zb 16:01 Follow up: Response: No adverse reaction zb 15:19 Drug: Insulin Regular Human 10 units {Co-Signature: jd3 (Tello Winter RN).} Route: zb IVP; Site: left upper arm; 16:01 Follow up: Response: No adverse reaction zb 15:19 Drug: Sodium Bicarbonate 1 amp Route: IVP; Site: left upper arm; zb 16:01 Follow up: Response: No adverse reaction zb 15:20 Drug: Calcium Gluconate 1 grams Route: IVPB; Infused Over: 60 mins; Site: left upper zb arm; 16:20 Follow up: Response: No adverse reaction; IV Status: Completed infusion; IV Intake: zb 100ml 15:21 Drug: Kayexalate 45 grams Route: PO; zb 16:01 Follow up: Response: No adverse reaction zb Disposition: 07/25 08:27 Co-signature as Attending Physician, Rei Miranda MD I agree with the assessment and buddy plan of care. Disposition: 07/24/20 15:39 Hospitalization ordered by Renato Busch for Observation. Preliminary diagnosis are Hyperkalemia, Anemia in chronic kidney disease, End stage renal disease - Needing urgent dialysis. - Bed requested for Telemetry/MedSurg (Inpatient). - Status is Observation. zb - Condition is Stable. - Problem is an acute exacerbation. - Symptoms are unchanged. Signatures: Dispatcher [employer] Jacqueline Adler RN RN Rei Tucker MD MD cha Waters, Shelly, LOCKSTITCH COAT JOINER-C LOCKSTITCH COAT JOINER-Csnw Kavya Xavier, Rekha Del Toro RN, Zipporah, RN RN zb Tello Winter RN jd3 Corrections: (The following items were deleted from the chart) 12 16:31 15:39 Hospitalization Ordered by Renato Busch for Observation. Preliminary diagnosis eb is Hyperkalemia; Anemia in chronic kidney disease; End stage renal disease - Needing urgent dialysis. Bed requested for Telemetry/MedSurg (observation). Status is Observation. Condition is Stable. Problem is an acute exacerbation. Symptoms are unchanged. snw 19:15 16:31 07/24/2020 15:39 Hospitalization Ordered by Renato Busch for Observation. dw Preliminary diagnosis is Hyperkalemia; Anemia in chronic kidney disease; End stage renal disease - Needing urgent dialysis. Bed requested for [facility] ER HOLD. Status is Observation. Condition is Stable. Problem is an acute exacerbation. Symptoms are unchanged. eb 21:04 19:15 07/24/2020 15:39 Hospitalization Ordered by Renato Busch for Observation. zb Preliminary diagnosis is Hyperkalemia; Anemia in chronic kidney disease; End stage renal disease - Needing urgent dialysis. Bed requested for Telemetry/MedSurg (Inpatient). Status is Observation. Condition is Stable. Problem is an acute exacerbation. Symptoms are unchanged. dw
--- NOTE | 2020-07-24 15:40 | ER ---
Nurse's Notes [facility] Name: Cr Orellana Age: 55 yrs Sex: Male : 1965 Arrival Date: 07/24/2020 Time: 12:11 Bed 25 Private MD: Diagnosis: Hyperkalemia;Anemia in chronic kidney disease;End stage renal disease-Needing urgent dialysis Presentation: 07/24 12:18 Chief complaint: Patient states: told to come to the ED by dialysis since he missed his ss session Monday. Pt reports he was sitting at the bus stop for 3 hours and "passed out". Coronavirus screen: Client denies travel out of the [place] in the last 14 days. Ebola Screen: Patient denies exposure to infectious person. Patient denies travel to an Ebola-affected area in the 21 days before illness onset. Initial Sepsis Screen: Does the patient meet any 2 criteria? No. Patient's initial sepsis screen is negative. Does the patient have a suspected source of infection? No. Patient's initial sepsis screen is negative. Risk Assessment: Do you want to hurt yourself or someone else? Patient reports no desire to harm self or others. Onset of symptoms was July 24, 2020. 12:18 Method Of Arrival: Wheelchair ss 12:18 Acuity: HUYEN 3 ss Historical: - Allergies: 12:20 No Known Allergies; ss - PMHx: 12:20 DIALYSIS MWF; Hypertension; seasonal allergies; ss - Immunization history:: Adult Immunizations up to date. - Social history:: Smoking status: Patient/guardian denies using tobacco, but has a distant history of tobacco abuse. Screenin:00 Abuse screen: Denies threats or abuse. Denies injuries from another. Nutritional zb screening: No deficits noted. Tuberculosis screening: No symptoms or risk factors identified. Fall Risk Fall in past 12 months (25 points). No secondary diagnosis (0 pts). IV access (20 points). Ambulatory Aid- None/Bed Rest/Nurse Assist (0 pts). Gait- Normal/Bed Rest/Wheelchair (0 pts) Mental Status- Oriented to own ability (0 pts). Total Currie Fall Scale indicates Low Risk Score (25-44 pts). Fall prevention measures have been instituted. Side Rails Up X 2 Placed close to Nursing Station Frequent Obs/Assesments occuring As available Patient and Family Educated on Fall Prevention Program and strategies. Assessment: 12:56 General: Appears uncomfortable, unkempt, Behavior is cooperative, anxious, Reports zb chills for 2-3 days, feeling ill for fatigue for. Pain: Complains of pain in bilteral legs, bilteral hips Quality of pain is described as aching, Pain began 2-3 days ago. Is continuous. Neuro: Level of Consciousness is awake, alert, obeys commands, Oriented to person, place, time, situation, Reports dizziness, weakness. Cardiovascular: Heart tones S1 S2 present Capillary refill < 3 seconds in bilateral fingers Patient's skin is warm and dry. Respiratory: Airway is patent Respiratory effort is even, labored, Respiratory pattern is regular, symmetrical, Breath sounds are clear bilaterally. GI: Abdomen is flat, non-distended. : No signs and/or symptoms were reported regarding the genitourinary system. EENT: No signs and/or symptoms were reported regarding the EENT system. Derm: Skin is healthy with good turgor, Skin is dry, Skin is normal. Musculoskeletal: Circulation, motion, and sensation intact. Range of motion: intact in all extremities. 13:56 Reassessment: Patient appears in no apparent distress at this time. Patient and/or zb family updated on plan of care and expected duration. Pain level reassessed. Patient is alert, oriented x 3, equal unlabored respirations, skin warm/dry/pink. pt received pain medication. lying in bed resting at this time. 14:56 Reassessment: Patient appears in no apparent distress at this time. Patient and/or zb family updated on plan of care and expected duration. Pain level reassessed. Patient is alert, oriented x 3, equal unlabored respirations, skin warm/dry/pink. 15:56 Reassessment: Patient appears in no apparent distress at this time. Patient and/or zb family updated on plan of care and expected duration. Pain level reassessed. Patient is alert, oriented x 3, equal unlabored respirations, skin warm/dry/pink. pt currently eating at bedside. 16:26 Reassessment: pt going to 2nd floor for dialysis. zb 17:30 Reassessment: pt in dialysis. zb 18:30 Reassessment: pt remains in dialysis. zb 19:26 Reassessment: RBC given to Dialysis nurse to transfuse during dialysis. jd3 21:03 Reassessment: report received from dialysis, called report to JUAN DANIEL Juan who is taking zb patient. pt directly transferred from dialysis to floor. Vital Signs: 12:18 BP 139 / 91; Pulse 86; Resp 17; Temp 97.5(TE); Pulse Ox 99% on R/A; Weight 65.77 kg; ss Height 5 ft. 6 in. (167.64 cm); Pain 9/10; 14:00 BP 163 / 94; Pulse 96; Resp 18; Pulse Ox 99% on R/A; zb 15:00 BP 147 / 81; Pulse 98; Resp 16; Pulse Ox 98% on R/A; zb 16:00 BP 138 / 102; Pulse 95; Resp 16; Pulse Ox 99% on R/A; zb 12:18 Body Mass Index 23.40 (65.77 kg, 167.64 cm) ss ED Course: 12:11 Patient arrived in ED. as 12:19 Triage completed. ss 12:20 Arm band placed on left wrist. ss 12:22 Bailee Munson FNP-C is PHCP. snw 12:22 Rei Miranda MD is Attending Physician. snw 12:56 Martha Campos RN is Primary Nurse. zb 13:00 Patient has correct armband on for positive identification. Bed in low position. Call zb light in reach. Side rails up X 1. Pulse ox on. NIBP on. Door closed. Noise minimized. Warm blanket given. 13:23 Chem 7 Sent. zb 13:59 Chest Single View XRAY In Process Unspecified. EDMS 15:38 Renato Busch is Hospitalizing Provider. snw 21:01 No provider procedures requiring assistance completed. Patient admitted, IV remains in zb place. Administered Medications: 13:55 Drug: morphine 4 mg Route: IM; Site: left deltoid; zb 16:00 Follow up: Response: No adverse reaction; Pain is decreased; RASS: Drowsy (-1) zb 15:19 Drug: D50W 50 ml Route: IVP; Site: left upper arm; zb 16:01 Follow up: Response: No adverse reaction zb 15:19 Drug: Insulin Regular Human 10 units {Co-Signature: jmary alice (Tello Winter RN).} Route: zb IVP; Site: left upper arm; 16:01 Follow up: Response: No adverse reaction zb 15:19 Drug: Sodium Bicarbonate 1 amp Route: IVP; Site: left upper arm; zb 16:01 Follow up: Response: No adverse reaction zb 15:20 Drug: Calcium Gluconate 1 grams Route: IVPB; Infused Over: 60 mins; Site: left upper zb arm; 16:20 Follow up: Response: No adverse reaction; IV Status: Completed infusion; IV Intake: zb 100ml 15:21 Drug: Kayexalate 45 grams Route: PO; zb 16:01 Follow up: Response: No adverse reaction zb Intake: 16:20 IV: 100ml; Total: 100ml. zb Outcome: 15:39 Decision to Hospitalize by Provider. snw 21:02 Admitted to Med/surg Other from dialysis. report given to JUAN DANIEL Juan room 212 zb 21:02 Condition: improved 21:02 Instructed on the need for admit. 21:04 Patient left the ED. zb Signatures: Dispatcher [employer] EDMS Bailee Munson, INCOMING FREIGHT CLERK-C INCOMING FREIGHT CLERK-CsnJane Balderas Shelby, RN RN ss Davies, Jonathon, RN RN Martha Young RN RN zb Tello Winter RN [email or web address]
--- NOTE | 2020-07-24 16:08 | P.HP ---
Certification for Inpatient Patient admitted to: Inpatient With expected LOS: >2 Midnights Practitioner: I am a practitioner with admitting privileges, knowledge of patient current condition, hospital course, and medical plan of care. Services: Services provided to patient in accordance with Admission requirements found in Title 42 Section 412.3 of the Code of Federal Regulations Patient History Date of Service: 07/24/20 Reason for admission: Missed dialysis History of Present Illness: 55-year-old gentleman with a history of end-stage renal disease on hemodialysis, history of GI bleed in the past, chronic anemia presented emergency department because he missed dialysis twice. Blood work in the ED showed hypokalemia with a potassium of 6.4 and anemia with hemoglobin of 7.0. EKG shows normal sinus rhythm, no ST-T changes. Patient given treatment for hyperkalemia comprising of insulin, D50 and IV bicarb. Lumber Buyer Dr. Figueroa was contacted recommended hospitalization for again dialysis and also blood transfusion with dialysis. Allergies No Known Allergies Allergy (Unverified 02/22/20 16:32) Home Medications: Atorvastatin Calcium [Lipitor*] 20 mg PO BEDTIME 07/16/20 Calcium Carbonate [Tums Regular*] 1,000 mg PO AC 07/16/20 Cyanocobalamin [Vitamin B-12*] 1,000 mcg PO DAILY 07/16/20 Doxazosin [Cardura*] 2 mg PO BEDTIME 07/16/20 Folic Acid 1 mg PO DAILY 07/16/20 Gabapentin 300 mg PO BID 07/16/20 Omeprazole [Prilosec] 40 mg PO DAILY 07/16/20 Pantoprazole Sodium [Protonix] 40 mg PO DAILY 07/16/20 Sevelamer Carbonate [Renvela*] 800 mg PO TIDWM 07/16/20 Tamsulosin [Flomax*] 0.4 mg PO BEDTIME 07/16/20 Thiamine HCl 100 mg PO DAILY 07/16/20 Zinc Sulfate [Zinc Sulfate*] 220 mg PO DAILY 07/16/20 carvediloL [Coreg*] 25 mg PO BID 07/16/20 - Past Medical/Surgical History Diabetic: No -: GERD -: Prior GI bleed -: ESRD on hemodialysis -: Anemia of chronic disease -: Hypertension -: Hyperlipidemia -: BPH -: pelvis sx 11 years ago Psychosocial/ Personal History: Patient is homeless. He does not have any family members. - Social History Alcohol use: No CD- Drugs: No Caffeine use: No Review of Systems Other: Except as documented, all other systems reviewed and negative. Physical Examination - Physical Exam General: Alert, In no apparent distress HEENT: Mucous membr. moist/pink, Sclerae nonicteric Neck: Supple, JVD not distended Respiratory: Normal air movement, Crackles/rales (Mild bibasilar rales) Cardiovascular: No edema, Regular rate/rhythm, Normal S1 S2 Gastrointestinal: Normal bowel sounds, Soft and benign, Non-distended, No tenderness Musculoskeletal: No swelling, No tenderness Integumentary: No rashes, No erythema Neurological: Normal speech, Normal strength at 5/5 x4 extr - Studies Laboratory Data (last 24 hrs) 07/24/20 14:55: Uric Acid 9.3 H, Phosphorus 6.5 H, Total Bilirubin 0.4, AST 29, ALT 14, Alkaline Phosphatase 79 07/24/20 14:55: WBC 12.5 H, Hgb 7.0 L*, Hct 21.1 L, Plt Count 143 L 07/24/20 13:13: Sodium 134 L, Potassium 6.4 H*, BUN 86 H D, Creatinine 13.20 H* D, Glucose 101 Assessment and Plan - Problems (Diagnosis) (1) Hyperkalemia Current Visit: Yes Status: Acute (2) End-stage renal disease on hemodialysis Current Visit: Yes Status: Acute (3) Anemia Current Visit: No Status: Acute - Plan Admit to the medical floor. Patient will need hemodialysis Nephrology has been contacted for dialysis today. Transfuse 1 unit PRBC during dialysis. Check stool for occult blood given prior history of GI bleed. Check iron profile. Start oral Protonix. Monitor H&H. Patient given treatment for hyperkalemia in the ED. - Advance Directives Does patient have a Living Will: No Does patient have a Durable POA for Healthcare: No
[2020-07-24 16:09] LABS: Blood Morphology Comment NOT SEEN (NOT SEEN); Platelet Estimate DECR; White Blood Cell Scan OK (OK)
[2020-07-24] MEDS ORDERED: NA CHLORIDE 0.9% 250 ML IV SCH (17:19)
[2020-07-24] MEDS ORDERED: ACETAMINOPHEN 500 MG TAB PO PRN (17:19)
[2020-07-24] MEDS ORDERED: EPOETIN ALFA-EPBX 10,000 UNIT/ML VIAL SQ ONE (19:03)
--- NOTE | 2020-07-24 19:04 | P.CNS ---
Date of Consult: 07/24/20 Reason for Consult: ESRD Requesting Physician: kamilah thakkar Chief Complaint: Generalized Weakness History of Present Illness: 55 yo WM CKD, HTN presented to the ER with moderate, progressive weakness in the setting of missed HD complicated by moderate, persistent left hip pain. 55-year-old gentleman with a history of end-stage renal disease on hemodialysis, history of GI bleed in the past, chronic anemia presented emergency department because he missed dialysis twice. Blood work in the ED showed hypokalemia with a potassium of 6.4 and anemia with hemoglobin of 7.0. EKG shows normal sinus rhythm, no ST-T changes. Patient given treatment for hyperkalemia comprising of insulin, D50 and IV bicarb. 13:53 This 55 yrs old Male presents to ER via Wheelchair with complaints of General snw Weakness. 13:53 Onset: The symptoms/episode began/occurred gradually. Associated signs and symptoms: snw Pertinent positives: exacerbation of chronic pain. Pt states he missed his dialysis x 2 because he didn't have a ride. The patient has experienced similar episodes in the past. It is unknown whether or not the patient has recently seen a physician. hx of chronic pain. Allergies No Known Allergies Allergy (Unverified 02/22/20 16:32) Home medications list reviewed: Yes Home Medications: Atorvastatin Calcium [Lipitor*] 20 mg PO BEDTIME 07/16/20 Calcium Carbonate [Tums Regular*] 1,000 mg PO AC 07/16/20 Cyanocobalamin [Vitamin B-12*] 1,000 mcg PO DAILY 07/16/20 Doxazosin [Cardura*] 2 mg PO BEDTIME 07/16/20 Folic Acid 1 mg PO DAILY 07/16/20 Gabapentin 300 mg PO BID 07/16/20 Omeprazole [Prilosec] 40 mg PO DAILY 07/16/20 Pantoprazole Sodium [Protonix] 40 mg PO DAILY 07/16/20 Sevelamer Carbonate [Renvela*] 800 mg PO TIDWM 07/16/20 Tamsulosin [Flomax*] 0.4 mg PO BEDTIME 07/16/20 Thiamine HCl 100 mg PO DAILY 07/16/20 Zinc Sulfate [Zinc Sulfate*] 220 mg PO DAILY 07/16/20 carvediloL [Coreg*] 25 mg PO BID 07/16/20 - Past Medical/Surgical History Diabetic: No -: GERD -: Prior GI bleed -: ESRD on hemodialysis -: Anemia of chronic disease -: Hypertension -: Hyperlipidemia -: BPH -: pelvis sx 11 years ago Psychosocial/ Personal History: Patient is homeless. He does not have any family members. - Social History Smoking Status: Current some day smoker Alcohol use: No CD- Drugs: No Caffeine use: No Review of Systems 10-point ROS is otherwise unremarkable General: Weakness, Malaise Respiratory: SOB with Excertion Musculoskeletal: Leg Pain Neurological: Weakness Physical Examination General: Oriented x3, Cooperative, Mild distress HEENT: Atraumatic Neck: Supple Respiratory: Diminished Cardiovascular: Regular rate/rhythm, Edema Gastrointestinal: Soft and benign, Non-distended Musculoskeletal: No clubbing, No contractures Integumentary: No rashes, No cyanosis Neurological: Normal speech Laboratory Data (last 24 hrs) 07/24/20 14:55: Uric Acid 9.3 H, Phosphorus 6.5 H, Total Bilirubin 0.4, AST 29, ALT 14, Alkaline Phosphatase 79 07/24/20 14:55: WBC 12.5 H, Hgb 7.0 L*, Hct 21.1 L, Plt Count 143 L 07/24/20 13:13: Sodium 134 L, Potassium 6.4 H*, BUN 86 H D, Creatinine 13.20 H* D, Glucose 101 Imagings Data: EXAM DESCRIPTION: RAD - Chest Single View - 07/24/2020 1:59 pm CLINICAL HISTORY: MALAISE Chest pain COMPARISON: Chest Single View dated 07/20/2020; Chest Single View dated 07/15/2020; Chest Single View dated 07/11/2020; Chest Single View dated 07/02/2020 FINDINGS: Portable technique limits examination quality. Mild pulmonary edema is noted. The heart is mildly prominent in size. No displaced fractures.Right venous catheter tips in the SVC. IMPRESSION: Mild pulmonary edema. Conclusions/Impression: A/ ESRD on HD Hyperkalemia HTN with CKD/ CHF Diastolic CHF, chronic DM II with CKD Anemia in CKD MIAH/ Secondary HyperPTH BPH with LUTS P/ Continue current POC and Medications. Acute HD as ordered. Seen and examined on HD. Plan for PRBC. Give Epo. Restart home medications as indicated. May need repeat dialysis in the morning. Tylenol #3 for hip pain. No NSAIDs. AM labs. Daily weight.
[2020-07-24] MEDS ORDERED: TEMAZEPAM 15 MG CAP PO PRN (21:29)
[2020-07-24 22:03] VITALS: BMI 23.5
[2020-07-24] MEDS: CODEINE 30MG/APAP 300MG TAB PO PRN (23:22)
[2020-07-24] MEDS: HEPARIN 5000 UNIT/ML 1 ML VIAL SQ SCH (23:23)
[2020-07-24] MEDS ORDERED: EPOETIN ALFA 10,000 UNIT/ML VIAL ONE (23:27)
[2020-07-25 04:03] LABS: Urine Appearance CLEAR; Urine Bilirubin NEGATIVE (NEG); Urine Blood 1+ (NEG); Urine Color YELLOW; Urine Glucose TRACE (NEG); Urine Protein 2+ (NEG); Urine Specific Gravity <=1.005 (1.005-1.030); Urine Urobilinogen 0.2 mg/dL (0.2-1.0)
[2020-07-25 04:24] LABS: Urine Microscopic Reflex ORDER UMIC
[2020-07-25 04:49] LABS: Urine Bacteria <20 /HPF (NONE SEEN)
[2020-07-25 05:37] LABS: Absolute Lymphocytes (CBC) 2.6 K/uL (0.7-4.9); Hematocrit 24.3 % (39.6-49.0); Lymphocytes % 25.6 % (15.3-44.8); MPV 7.9 fL (7.6-11.3)
[2020-07-25 05:47] LABS: C-Reactive Protein 55.9 mg/L (<3.00); Magnesium 1.9 mg/dL (1.8-2.4); Phosphorus 6.6 mg/dL (2.5-4.9); Potassium 4.6 mmol/L (3.5-5.1)
[2020-07-25] MEDS: CODEINE 30MG/APAP 300MG TAB PO PRN ×4 (06:49→19:29)
[2020-07-25] MEDS: HEPARIN 5000 UNIT/ML 1 ML VIAL SQ SCH ×2 (08:08→20:01)
[2020-07-25] MEDS: SEVELAMER CARBONATE 800 MG TABLET PO SCH ×5 (08:08→17:11)
[2020-07-25] MEDS: DOCUSATE NA 100 MG CAP PO SCH ×2 (08:08→20:00)
[2020-07-25] MEDS ORDERED: MANNITOL 25% 12.5 GM/50 ML VIAL IV PRN (08:35)
[2020-07-25] MEDS ORDERED: NA CHLORIDE 0.9% 1,000 ML IV PRN (08:35)
[2020-07-25] MEDS: GABAPENTIN 300 MG CAP PO SCH ×2 (09:00→20:00)
[2020-07-25] MEDS ORDERED: THIAMINE HCL 100 MG TABLET PO SCH (09:00)
[2020-07-25] MEDS ORDERED: CYANOCOBALAMIN 1,000 MCG TAB PO SCH (09:00)
[2020-07-25] MEDS ORDERED: FOLIC ACID 1 MG TABLET PO SCH (09:00)
[2020-07-25] MEDS ORDERED: ALBUMIN HUMAN 25% 50 ML IV SCH (09:00)
[2020-07-25] MEDS ORDERED: ZINC SULFATE 220 MG CAP PO SCH (09:00)
[2020-07-25] MEDS ORDERED: MULTIVITAMINS,THERAPEUT 1 TAB PO SCH (09:00)
[2020-07-25] MEDS ORDERED: CALCITROL 0.25 MCG CAP PO SCH (09:00)
[2020-07-25] MEDS ORDERED: PANTOPRAZOLE 40MG TABLET PO SCH (09:00)
[2020-07-25] MEDS ORDERED: VITAMIN D 5,000 UNIT CAP PO SCH (09:00)
[2020-07-25] MEDS: carvediloL 25 MG TAB PO SCH ×2 (09:55→20:01)
--- NOTE | 2020-07-25 10:56 | P.DS ---
Admission Date: 07/24/20 Discharge Date: 07/25/20 Disposition: ROUTINE DISCHARGE Discharge Condition: FAIR Reason for Admission: Generalized Weakness - Problems (1) Hyperkalemia Current Visit: Yes Status: Acute (2) End-stage renal disease on hemodialysis Current Visit: Yes Status: Acute (3) Anemia Current Visit: No Status: Acute Brief History of Present Illness: 55-year-old gentleman with a history of end-stage renal disease on hemodialysis, history of GI bleed in the past, chronic anemia presented emergency department because he missed dialysis twice. Blood work in the ED showed hyperkalemia with a potassium of 6.4 and anemia with hemoglobin of 7.0. EKG shows normal sinus rhythm, no ST-T changes. Patient given treatment for hyperkalemia comprising of insulin, D50 and IV bicarb. Biomedical Service Engineer Dr. Figueroa was contacted recommended hospitalization for again dialysis and also blood transfusion with dialysis. Hospital Course: Patient was admitted to the medical floor. Emergent hemodialysis was performed. His potassium level normalized after dialysis. Patient seen and evaluated by nephrology-Dr. Garcia. He underwent an under hemodialysis session today. Patient is asymptomatic and deemed clinically stable for discharge. Vital Signs/Physical Exam: Temp Pulse Resp BP Pulse Ox 98.7 F 91 H 18 141/79 H 96 07/25/20 08:00 07/25/20 09:55 07/25/20 10:43 07/25/20 09:55 07/25/20 10:43 General: Alert, In no apparent distress Neck: Supple, JVD not distended Respiratory: Clear to auscultation bilaterally, Normal air movement Cardiovascular: No edema, Regular rate/rhythm, Normal S1 S2 Gastrointestinal: Normal bowel sounds, Soft and benign, No tenderness Musculoskeletal: No swelling, No tenderness Integumentary: No rashes, No erythema Neurological: Other (Nonfocal.) Laboratory Data at Discharge: WBC 10.3 K/uL (4.3-10.9) D 07/25/20 05:05 Hgb 8.2 g/dL (13.6-17.9) L 07/25/20 05:05 Hct 24.3 % (39.6-49.0) L D 07/25/20 05:05 Plt Count 145 K/uL (152-406) L 07/25/20 05:05 Sodium 139 mmol/L (136-145) 07/25/20 05:05 Potassium 4.6 mmol/L (3.5-5.1) 07/25/20 05:05 BUN 34 mg/dL (7-18) H D 07/25/20 05:05 Creatinine 6.82 mg/dL (0.55-1.3) H* D 07/25/20 05:05 Glucose 102 mg/dL (74-106) 07/25/20 05:05 Uric Acid 9.3 mg/dL (3.5-7.2) H 07/24/20 14:55 Phosphorus 6.6 mg/dL (2.5-4.9) H 07/25/20 05:05 Magnesium 1.9 mg/dL (1.8-2.4) 07/25/20 05:05 Total Bilirubin 0.4 mg/dL (0.2-1.0) 07/24/20 14:55 AST 29 U/L (15-37) 07/24/20 14:55 ALT 14 U/L (12-78) 07/24/20 14:55 Alkaline Phosphatase 79 U/L (45-117) 07/24/20 14:55 Home Medications: Atorvastatin Calcium [Lipitor*] 20 mg PO BEDTIME 07/16/20 Calcium Carbonate [Tums Regular*] 1,000 mg PO AC 07/16/20 Cyanocobalamin [Vitamin B-12*] 1,000 mcg PO DAILY 07/16/20 Doxazosin [Cardura*] 2 mg PO BEDTIME 07/16/20 Folic Acid 1 mg PO DAILY 07/16/20 Gabapentin 300 mg PO BID 07/16/20 Pantoprazole Sodium [Protonix] 40 mg PO DAILY 07/16/20 Sevelamer Carbonate [Renvela*] 800 mg PO TIDWM 07/16/20 Tamsulosin [Flomax*] 0.4 mg PO BEDTIME 07/16/20 Thiamine HCl 100 mg PO DAILY 07/16/20 Zinc Sulfate [Zinc Sulfate*] 220 mg PO DAILY 07/16/20 carvediloL [Coreg*] 25 mg PO BID 07/16/20 Calcitrol [Rocaltrol*] 0.5 mcg PO DAILY #30 cap 07/25/20 Cholecalciferol (Vitamin D3) [Vitamin D 5,000 IU Cap*] 5,000 unit PO DAILY #30 cap 07/25/20 Docusate [Colace Cap*] 100 mg PO BID #60 cap 07/25/20 Mannitol 25% [Mannitol*] 12.5 gm IV EVERY HD PRN vial 07/25/20 New Medications: Docusate [Colace Cap*] 100 mg PO BID #60 cap Calcitrol [Rocaltrol*] 0.5 mcg PO DAILY #30 cap Cholecalciferol (Vitamin D3) [Vitamin D 5,000 IU Cap*] 5,000 unit PO DAILY #30 cap Diet: Renal Activity: Ad reta Followup: Nakul Garcia DO [Primary Care Provider] - 1-2 Weeks Time spent managing pt's care (in minutes): 32
[2020-07-25 11:25] LABS: Anisocytosis 1+; Blood Morphology Comment NOTED (NOT SEEN); Platelet Estimate DECR
[2020-07-25 16:26] VITALS: O2SAT 99
[2020-07-25] MEDS ORDERED: carvediloL 12.5 MG TAB PO SCH (18:00)
--- NOTE | 2020-07-25 19:14 | PN ---
Date of Progress Note: 07/25/2020 Subjective: The patient was seen and examined at bedside. He is comfortable, in no distress. Denie s any other complaints. Physical Examination: Vital Signs: Reviewed and are stable. General: He appears in no acute distress. Lungs: Clear to auscultation. Abdomen: Soft and nontender. Extremities: No evidence of edema. Laboratory Data: WBC count of 10.3, hemoglobin of 8.2, hematocrit of 24.3, and platelet count of 145 . BMP results have been reviewed in detail. Impression: 1.End-stage renal disease, on dialysis. 2.Noncompliance with dialysis. 3.Hyperkalemia. 4.Pulmonary edema. 5.Anemia secondary to end-stage renal disease. Plan: The patient has severe noncompliance because of social issues. We will discuss with the jewel bah worker at the dialysis unit to arrange for transportation to ensure compliance with dialysis. Cont inue another extra treatment today for improved volume status. Epogen given for anemia. Continue al l other medications. He is okay to be discharged post HD from our standpoint. VV/MODL Voice ID: [id number] Report ID: [id number]
--- NOTE | 2020-07-25 20:04 | EKG ---
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
[2020-07-25 20:21] VITALS: BP 126/64
[2020-07-25] MEDS ORDERED: ATORVASTATIN 20 MG TAB PO SCH (21:00)
[2020-07-25] MEDS ORDERED: DOXAZOSIN 2 MG TAB PO SCH (21:00)
[2020-07-25] MEDS ORDERED: TAMSULOSIN 0.4 MG SR CAP PO SCH (21:00)
[2020-07-25 21:03] VITALS: TEMP 99.3
== END 2020-07-25 20:30 | disposition home or self-care (01) | DRG 640 ==
LOC: ER 12:10 → ERHOLD 16:09 → 2ND 21:05
PROVIDERS: ADMIT Internal Medicine; ATTEND Internal Medicine
PROC: 30233N1 Transfusion of Nonautologous Red Blood Cells into Peripheral Vein, Percutaneous Approach (ICD-10-PCS; principal; 2020-07-24)
PROC: 5A1D70Z Performance of Urinary Filtration, Intermittent, Less than 6 Hours Per Day (ICD-10-PCS; 2020-07-24)
DX: E87.5 Hyperkalemia (principal); N18.6 End stage renal disease; I13.2 Hypertensive heart and chronic kidney disease with heart failure and with stage 5 chronic kidney disease, or end stage renal disease; I50.32 Chronic diastolic (congestive) heart failure; N25.81 Secondary hyperparathyroidism of renal origin; J81.1 Chronic pulmonary edema; E11.22 Type 2 diabetes mellitus with diabetic chronic kidney disease; K21.9 Gastro-esophageal reflux disease without esophagitis; N40.1 Benign prostatic hyperplasia with lower urinary tract symptoms; D63.1 Anemia in chronic kidney disease; N25.0 Renal osteodystrophy; E87.6 Hypokalemia; M25.552 Pain in left hip; F17.200 Nicotine dependence, unspecified, uncomplicated; Z99.2 Dependence on renal dialysis; Z91.15 Patient's noncompliance with renal dialysis; Z79.899 Other long term (current) drug therapy; Z59.0 Homelessness; Z20.828 Contact with and (suspected) exposure to other viral communicable diseases
CPT/HCPCS: 36415; 71045; 80048; 80076; 81003; 81015; 82805; 83735; 84100; 84550; 85025; 85652; 86140; 86850; 86900; 86901; 90935; 93005; 96365; 96372; 96375; 99285; J1644; P9016; Q5105; Q5106; U0003

== ENCOUNTER 2020-08-26 10:48 | Inpatient (IN) | payer OTHER ==
--- OUTSIDE RECORDS SUMMARY | 2020-08-26 10:52 | XMS REPORT | Clinical Summary ---
:[address] Address [address] [place] [address] Care Team Providers Name Role Phone Unavailable [...] disease) on dialysis (HCC); 06/03/2020 Severe sepsis (HCC); Jeff Nicholas acido sis; Christopher Hematoma of thi gh, right, initial encounter; MD Donna PINA (acute kidney injury) (HCC); Vee Hernandez Thrombocytop enia (HCC); MD Corrine Anemia, unspecified type; Delia Matthews Gastroesophalice geal reflux disease, unspecified whether esophagitis present; MD Akilah Epigastric pain; Mustapha, Acute blood los s anemia Emanuel Valdivia MD 05/23/2020 Telephone Critical Care Santy Cardona, transfer Medicine Michael Ames MD 02/22/2020 Lab Requisition Lab after 08/26/2019 Immunizations Name Administration Dates Next Due Influenza [...] Done Comments COLON CANCER SCREENING COLONOSCOPY 1965 HEPATITIS B VACCINE (1 of 3 - Risk Recombivax 3-dose 1982 series) LIPID PANEL 1998 Medicare IPPE (WELCOME TO MEDICARE) 05/21/2020 DEPRESSION SCREENING (12+) 08/21/2020 INFLUENZA VACCINE Completed 05/25/2020 Procedures Procedure Name [...] procedure are in the results section. after 08/26/2019 Results HEMODIALYSIS INPATIENT (06/03/2020 12:01 PM CDT) [...] Pathologist Sig nature % Neutros 62 % [facility] % Lymphs 27 % [facility] % Monos 5 % [facility] % Myelo 3 (H) 0 - 0 % [facility] % Bands 3 0 - 10 % [facility] # Neutros 7.19 (H) 1.78 - 5.38 K/ul [facility] # Lymphs 3.13 1.32 - 3.57 K/ul [facility] # Monos 0.58 0.30 - 0.82 K/uL [facility] # Myelo 0.35 (H) 0.00 - 0.00 K/uL [facility] # Bands 0.35 0.00 - 0.80 K/uL [facility] Total Counted 100 [facility] nRBC (manual) 1 (H) 0 - 0 /100 WBC [facility] WBC Morphology Normal [facility] Large Platelet Present [facility] Anisocytosis 1+ few [facility] Microcytes 1+ few [facility] Artifact Present [facility] Platelet Conc Decreased [facility] Specimen Blood Narrative Performed At Motor Teacher ID - Chris Blakelyobar [facility] User comments: Slide comments: Performing Organization Address [facility] Centercode Phone Number [address] [address] CENTER PT/aPTT (06/03/2020 4:07 AM CDT)Only the most recent of12 resultswithin the time period is included. Pathologist Sig nature Protime 14.1 11.9 - 14.2 seconds [facility] INR 1.12 <=5.90 [facility] PTT 38.0 (H) 22.5 - 36.0 seconds [facility] Specimen Blood Narrative Performed At Effective 01/16/2019: PT Reference Range [facility] Change New: 11.9-14.2 Previous: 11.7-14.7 RECOMMENDED COUMADIN/WARFARIN INR THERAPY RANGES STANDARD DOSE: 2.0-3.0 Includes: PROPHYLAXIS for venous thrombosis, systemic embolization; TREATMENT for venous thrombosis and/or pulmonary embolus. HIGH RISK: Target INR is 2.5-3.5 for patients wiht mechanical heart valves. Performing Organization Address City/State/Zipcode Phone Number [phone] [place] [address] [place] Calcium, Ionized (06/03/2020 4:07 AM CDT)Only the most recent of4 resultswithin the time period is included. [facility] Calcium, Ion 1.17 1.12 - 1.27 mmol/L [facility] pH, Blood 7.44 [facility] Specimen Blood Performing Organization Address City/[facility] Centercode Phone Number [facility] [address] [place] [address] [place] CBC with platelet count + automated diff (06/03/2020 4:07 AM CDT)Only the most recent of13 resultswithin the time period is included. Pathologist Sig [facility] WBC 11.6 (H) 3.5 - 10.5 K/L [facility] RBC 2.46 (L) 4.63 - 6.08 M/L [facility] Hemoglobin 7.9 (L) 13.7 - 17.5 GM/DL [facility] Hematocrit 23.2 (L) 40.1 - 51.0 % [facility] MCV 94.3 (H) 79.0 - 92.2 fL [facility] MCH 32.1 25.7 - 32.2 pg [facility] MCHC 34.1 32.3 - 36.5 GM/DL [facility] RDW 15.9 (H) 11.6 - 14.4 % [facility] Platelets 79 (L) 150 - 450 K/CU MM [facility] MPV 10.8 9.4 - 12.4 fL [facility] nRBC 1 (H) 0 - 0 /100 WBC [facility] Specimen Blood Performing Organization Address City/[facility] Hospital/Zipcode Phone Number [facility] [address] [place] [address] CENTER Phosphorus (06/03/2020 4:07 AM CDT)Only the most recent of7 resultswithin the time period is included. Pathologist Sig nature Phosphorus 4.3Comment: 2.3 - 4.7 mg/dL [facility] Specimen slightly [facility] Specimen Blood Narrative Performed At Motor Teacher ID - [facility] Performing Organization Address [facility] Centerconm Phone Number [address] [address] [place] Magnesium (06/03/2020 4:07 AM CDT)Only the most recent of12 resultswithin the time period is included. Pathologist Sig nature Magnesium 2.0Comment: Specimen 1.6 - 2.6 mg/dL [facility] hemolyzed [facility] Specimen Blood Narrative Performed At Motor Teacher ID - [facility] Performing Organization Address [facility] Phone Number [address] [address] [place] Hepatic function panel (06/03/2020 4:07 AM CDT)Only the most recent of12 resultswithin the time period is included. Protein, Total 6.5Comment: 6.0 - 8.3 [facility] Specimen slightly gm/dL [facility] Albumin 3.3 (L)Comment: 3.5 - 5.0 [facility] Specimen slightly g/dL [facility] Total Bilirubin 0.3Comment: 0.2 - 1.2 [facility] Specimen slightly mg/dL [facility] Bilirubin, Direct 0.1Comment: 0.1 - 0.5 [facility] Specimen slightly mg/dL [facility] Alkaline 71 40 - 150 U/L [facility] Phosphatase [facility] AST 42 (H)Comment: 5 - 34 U/L [facility] Specimen slightly [facility] ALT 14Comment: 6 - 55 U/L [facility] Specimen slightly [facility] Specimen Blood Narrative Performed At Motor Teacher EVELYNE - BONILLA Moore [facility] Performing Organization Address City/State/Zipcode Phone Number [facility] [address] [place] [address] CENTER Comprehensive metabolic panel (06/03/2020 4:07 AM CDT)Only the most recent of4 resultswithin the time period is included. Protein, Total 6.5Comment: 6.0 - 8.3 [facility] Specimen slightly gm/dL [facility] Albumin 3.3 (L)Comment: 3.5 - 5.0 [facility] Specimen slightly g/dL [facility] Alkaline 71 40 - 150 U/L [facility] Phosphatase [facility] Total Bilirubin 0.3Comment: 0.2 - 1.2 [facility] Specimen slightly mg/dL [facility] Sodium 134 (L) 136 - 145 [facility] meq/L [facility] Potassium 5.1Comment: 3.5 - 5.1 [facility] Specimen slightly meq/L [facility] Chloride 96 (L) 98 - 107 [facility] meq/L [facility] CO2 24 22 - 29 meq/L [facility] BUN 60 (H) 7 - 21 mg/dL [facility] Creatinine 9.02 (H)Comment: 0.57 - 1.25 [facility] Specimen slightly mg/dL [facility] Glucose 89 70 - 105 [facility] mg/dL [facility] Calcium 9.2 8.4 - 10.2 [facility] mg/dL [facility] AST 42 (H)Comment: 5 - 34 U/L [facility] Specimen slightly [facility] ALT 14Comment: 6 - 55 U/L [facility] Specimen [facility] EGFR 6Comment: mL/min/1.73 [facility] ESTIMATED GFR IS sq [facility] NOT ACCURATE MEDICAL CENTER CREATININE CLEARANCE IN PREDICTING GLOMERULAR FILTRATION RATE. ESTIMATED GFR IS NOT APPLICABLE FOR DIALYSIS PATIENTS. Specimen Blood Narrative Performed At Motor Teacher ID - BONILLA Moore [facility] Performing Organization Address City/[facility] Hospital/Zipcode Phone Number [facility] [address] [place] [address] CENTER Prepare Leuko-Red RBC (06/02/2020 11:54 PM CDT)Only the most recent of3 results within the time period is included. Pathologist Sig nature CROSSMATCH COMPATIBLE SAFETRACE TX Unit ABO O Pos SAFET[place]ACE TX UNIT NUMBER [phone] [place] Status TX_TIMEINCHART [place]AF[place]ACE TX Blood Bank Product RED BLOOD CELLS [place] PRODUCT CODE [id number] [place] Specimen Other Performing Organization Address City/[facility] Centercode Phone Number [place] Basic Metabolic Panel (06/02/2020 3:56 AM CDT)Only the most recent of12 results within the time period is included. Sodium 135 (L) 136 - 145 meq/L [facility] Potassium 4.7 3.5 - 5.1 meq/L [facility] Chloride 98 98 - 107 meq/L [facility] CO2 25 22 - 29 meq/L [facility] BUN 36 (H) 7 - 21 mg/dL [facility] Creatinine 6.44 (H) 0.57 - 1.25 [facility] mg/dL [facility] Glucose 96 70 - 105 mg/dL [facility] Calcium 8.6 8.4 - 10.2 [facility] mg/dL [facility] EGFR 9Comment: ESTIMATED mL/min/1.73 [facility] GFR IS NOT [facility] MEDICAL ACCURATE CENTER CREATININE CLEARANCE IN PREDICTING GLOMERULAR FILTRATION RATE. ESTIMATED GFR IS NOT APPLICABLE FOR DIALYSIS PATIENTS. Specimen Blood Narrative Performed At Motor Teacher ID - EDASI [facility] Performing Organization Address City/[facility] Hospital/Zipcode Phone Number [address] [phone] CENTER Transfuse Leuko-Red RBC (06/01/2020 10:33 PM CDT)Only the most recent of3 resultswithin the time period is included.POC-Glucose meter (06/01/2020 10:11 PM CDT) POC-Glucose Meter 99 70 - 110 mg/dL [facility]: [facility] MEDICAL : TESTED AT [address], [address] CENTER : Motor Teacher/Compliance Administrator ID = [id number] for Jerson Morales Specimen Blood Performing Organization Address [facility]conm Phone Number [address] [address] CENTER Hepatitis B surface antibody (06/01/2020 7:23 PM CDT) Pathologist Sig nature Hep B S Ab 27.2 (H) <8.0 mIU/mL [facility] Specimen Blood Narrative Performed At Motor Teacher ID - DB [facility] Performing Organization Address [facility] Phone Number [address] [address] CENTER Type and screen, automated (05/31/2020 9:50 AM CDT)Only the most recent of2 resultswithin the time period is included. Pathologist Sig nature ABO/RH AUTOMATED O POSITIVE [facility] (BEAKER) [facility] Ab Scrn NEGATIVE [facility] Specimen Blood Performing Organization Address [facility] Centercode Phone Number [address] [address] Hemoglobin and hematocrit (05/31/2020 9:50 AM CDT)Only the most recent of6 resultswithin the time period is included. Pathologist Sig nature Hemoglobin 7.2 (L) 13.7 - 17.5 GM/DL [facility] Hematocrit 21.2 (L) 40.1 - 51.0 % [facility] Specimen Blood Narrative Performed At Motor Teacher ID - [id number] [facility] Performing Organization Address [facility] Phone Number [facility] [address] [place] [address] [place] Hepatitis panel, acute (05/28/2020 2:19 PM CDT) Pathologist Sig [facility] Hep A IgM Nonreactive Nonreactive [facility] Hep B C IgM Nonreactive Nonreactive [facility] Hepatitis C Ab Reactive (A) Nonreactive [facility] HBsAg Screen Nonreactive Nonreactive [facility] Specimen Blood Narrative Performed At Motor Teacher ID - DB [facility] Performing Organization Address [facility] Phone Number [address] [address] CENTER D-dimer (05/28/2020 3:59 AM CDT)Only the most recent of3 resultswithin the time period is included. Pathologist Sig nature D-Dimer, Quant 3.35 (H) <0.50 MG/L FEU [facility] Specimen Blood Narrative Performed At Intended Use: The D-Dimer Assay can be used [facility] to aid in the diagnosis of Deep Vein Thrombosis (DVT) and Pulmonary Embolism Disease (PED). In patients with low pre-test probability, various studies concerning STA Liatest D-dimer test have reported that with a cutoff value of 0.50 MG/L FEU, the Negative Predictive Value (NPV) regarding the exclusion of thrombosis is within 95-100% range. Performing Organization Address [facility] Centercode Phone Number [address] [address] [place] REPORT OF PROCEDURE - ENDOSCOPY URL (05/27/2020 8:30 AM CDT) Narrative Performed At This result has an attachment that is no t available. Tissue Exam (05/27/2020 8:20 AM CDT) Case Report Surgical Pathology Report Case: [id number] [facility] Authorizing Provider: Myrna Tijerina MD Collected: 05/27/2020 08:20 AM [facility] Ordering Location: [address] Received: 05/27/2020 02:50 PM MEDICAL CENTER SERVICE Pathologist: Rosa Cisneros MD Specimens: A) - Biopsy, G astric, random biopsies R/O H. pylori B) - Biop sy, Gastroesophageal Junction, random biopsies R/O Islas's DIAGNOSIS A. 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 GASTROESOPHAGEAL JUNCTION, ENDOSCOPIC MUCOSAL BIOPS IES - SQUAMOCOLUMNAR MUCOSA WITH ACTIVE CARDITIS - NEGATIVE FOR SPECIALIZED ISLAS METAPLASIA Signing Pathologist Direct Phone Line: COMMENT . [facility] CPT Code(s) 51298 x2, 89375 [facility] CLINICAL HISTORY Anemia [facility] SPECIMEN SOURCE A. Random gastric biopsy, rule out H. Pylori [facility] B. Random GE junction biopsy, rule out Islas's [facility] GROSS DESCRIPTION A. Received in formalin labe led with the patient's name, medical record number and "gastric biopsy" are two pieces of rees-white mucosa- covered tissue that measure 0.5 x 0.3 x 0.2 cm in aggregate. The sp [facility] ecimen is submitted in toto following filtration in ca ssette A1. [facility] B. Received in formalin labe led [...] inflammation is present. The oxyntic mucosa s [facility] DESCRIPTION hows no significant inflamma tion. Warthin stain for Helicobacter pylori is negative. There is no dysplasia or carcinoma. [facility] B. Section shows gastroesoph ageal junctional mucosa and squamous (eosphageal) mucosa. The squamous (esophageal) component of GE junctional mucosa shows intercellular edema and elongated vascular papilla e and the columnar mucosa sh ows chronic inflammation with rare neutrophils. No goblet cell metaplasia is seen. SPECIAL STUDIES The interpretation of this c ase included the use of immunohistochemistry or special stains. [facility] Control Slides Examined: In -house known positive controls were evaluated along with the test tissue. These control slides run alongside of the patients sample show appropriate staining. [facility] antony and negative controls when available are evaluated Immunohistochemistry technic al testing was performed at [facility], Pathology Laboratory where it was developed and its performance characteristics were determined. It has not be en cleared or approved by [facility] U.S. Food and Drug Administration. The FDA has determined that such clearance or approval is not necessary. The test is used for clinical purposes. It should not be regarde d as investigational or for research. This laboratory is certified under the Clinical Laboratory Improvement Amendments of 1988 (CLIA-88) as qualified to perform high complexity clinical laboratory testing. Gross assessment [facility] 'S was performed at [facility] Pathology, [address] [place] [id number], Technical [facility] component was [facility] performed at Pathology, [address] [place] [address], Professional [facility]' component was [facility] performed at Pathology, [address] [place] [address], Specimen Tissue - Gastric biopsy sample (specimen ) Tissue specimen (specimen) - Biopsy, Gas troesophageal Junction Performing Organization Address City/State/Zipcode Phone Number [facility] [address] [place] [address] CENTER Manual Differential (05/27/2020 3:40 AM CDT) % Neutros (manual) 63 % [facility] % Lymphs (manual) 17 % [facility] % Monos (manual) 4 % [facility] % Eos (manual) 3 % [facility] % Baso (manual) 1 % [facility] % Metamyelo (manual) 3 (H) 0 - 0 % [facility] % Bands (manual) 3 0 - 10 % [facility] % Atypical Lymphs 6 (H) 0 - 0 % [facility] # Neutros (manual) 7.12 1.80 - 8.00 [facility] # Lymphs (manual) 1.92 1.48 - 4.50 [facility] # Monos (manual) 0.45 0.00 - 1.30 [facility] # Eos (manual) 0.34 0.00 - 0.50 [facility] # Baso (manual) 0.11 0.00 - 0.20 [facility] # Metamyelo (manual) 0.34 (H) 0.00 - 0.00 [facility] # Bands (manual) 0.3 0.0 - 0.8 KL [facility] # Atypical Lymphs 0.68 (H) 0.00 - 0.00 [facility] Total Counted 100 [facility] Bands plus Segmented 7.46 [facility] nRBC (manual) 1 (H) 0 - 0 /100 WBC [facility] WBC Morphology Normal [facility] Platelet Morphology Normal [facility] Anisocytosis 1+ few [facility] Ovalocytes 1+ few [facility] Specimen Blood Performing Organization Address City/[facility] Hospital/Zipcode Phone Number [address] [address] CENTER TRANSFUSION SERVICE REPORT - SCAN (05/26/2020 6:21 PM CDT)Only the most recent of2 resultswithin the time period is included. Narrative Performed At This result has an attachment that is no t available. Hepatitis C PCR, Quantitative (05/26/2020 12:26 PM CDT) HCV PCR, HCV RNA not HCV RNA not [facility] Quantitative detected detected [facility] Specimen Blood Narrative Performed At This test uses a Real-Time Polymerase Chain [facility] Reaction (RT-PCR) methodology and was performed using [employer] Ampliprep/[employer] TaqMan HCV test kit version 2.0 ([employer]). Reportable range for this assay is 15 - 100,000,000 IU per mL (1.18 - 8.00 Log IU/mL). Performing Organization Address City/[facility] Hospital/Zipcode Phone Number [address] [address] CENTER TSH/Free T4 If Indicated (05/25/2020 7:14 PM CDT) Pathologist Sig nature TSH 3.581 0.350 - 4.940 uIU/mL [facility] Specimen Blood Narrative Performed At Motor Teacher EVELNYE Crump [facility] Performing Organization Address City/State/Zipcode Phone Number [facility] [address] [place] [address] CENTER Prothrombin time/INR (05/25/2020 11:42 AM CDT) Pathologist Sig nature Protime 14.6 (H) 11.9 - 14.2 seconds [facility] INR 1.17 <=5.90 [facility] Specimen Blood Narrative Performed At Effective 01/16/2019: PT Reference Range [facility] Change New: 11.9-14.2 Previous: 11.7-14.7 RECOMMENDED COUMADIN/WARFARIN INR THERAPY RANGES STANDARD DOSE: 2.0-3.0 Includes: PROPHYLAXIS for venous thrombosis, systemic embolization; TREATMENT for venous thrombosis and/or pulmonary embolus. HIGH RISK: Target INR is 2.5-3.5 for patients wiht mechanical heart valves. Performing Organization Address City/[facility] Cent[facility] Phone Number [address] [address] CENTER Lactate dehydrogenase (LDH) (05/25/2020 11:42 AM CDT) Pathologist Sig nature LDH 341 (H) 125 - 220 U/L [facility] Specimen Blood Narrative Performed At Motor Teacher ID - JR Crump [facility] Performing Organization Address [facility] Centerconm Phone Number [address] [address] CENTER Peripheral Blood Smear - Path Review (05/25/2020 3:42 AM CDT) Pathologist Review Macrocytic anemia, [facility] anisopoikilocytosis, MEDICAL CENTER with rare schistocytes (0.8 per HPF). WBCs with mild left shift, including occasional myeloid precursors, no blasts seen. Few hypersegmented neutrophils. Thrombocytopenia with unremarkable morphology. Pathologist: Maddie Leon [facility]ATION[facility]anna Dsouza M.D [facility] Specimen Blood Performing Organization Address City/[facility] Centercode Phone Number [address] [address] CENTER Troponin I (05/25/2020 3:42 AM CDT)Only the most recent of5 resultswithin the time period is included. Pathologist Sig nature Troponin I 0.46 (HH) 0.00 - 0.03 ng/mL [facility] Specimen Blood Narrative Performed At Troponin I (TnI) levels must be interpreted [facility] in the context of the presenting symptoms and the clinical findings. Elevated TnI levels indicate myocardial damage, but are not specific for ischemic heart disease. Elevated TnI levels are seen in patients with other cardiac conditions (including myocarditis and congestive heart failure), and slight TnI elevations occur in patients with other conditions, including sepsis, renal failure, acidosis, acute neurological disease, and persistent tachyarrhythmia. Motor Teacher ID - DB Performing Organization Address [facility]/Zipcode Phone Number [address] [address] CENTER Lactic acid, venous (05/25/2020 3:42 AM CDT)Only the most recent of3 results within the time period is included. Pathologist Sig nature Lactate, Venous 0.42 (L) 0.50 - 2.[address] [facility] mmol/L [facility] Specimen Blood Narrative Performed At Motor Teacher ID - DB [facility] Performing Organization Address [facility] [facility] Phone Number [address] [address] CENTER Reticulocyte count (05/25/2020 3:42 AM CDT) Pathologist Sig nature % Retic 1.5 0.5 - 1.8 % [facility] Specimen Blood Narrative Performed At Motor Teacher ID - [id number] [facility] Performing Organization Address [facility]/Zipcode Phone Number [address] [address] CENTER Iron, TIBC, % sat. (without ferritin) (05/25/2020 3:41 AM CDT) Pathologist Sig nature Iron 118.0 40.0 - 160.[address] [facility] ug/dL [facility] TIBC 170 (L) 250 - 450 ug/dL [facility] Iron % Saturation 69 (H) 20 - 55 % [facility] Specimen Blood Narrative Performed At Motor Teacher ID - MARQUIS [facility] Performing Organization Address [facility] Phone Number [address] [address] CENTER Haptoglobin (05/25/2020 3:41 AM CDT) Pathologist Sig nature Haptoglobin 172 14 - 258 mg/dL [facility] Specimen Blood Narrative Performed At Motor Teacher ID - JR Crump [facility] Performing Organization Address [facility] Phone Number [address] [address] CENTER Ferritin (05/25/2020 3:41 AM CDT) Pathologist Sig nature Ferritin 10,294.32 (H) 5.00 - 275.[address] [facility] ng/mL [facility] Specimen Blood Narrative Performed At Motor Teacher ID - MARQUIS [facility] Performing Organization Address [facility] Phone Number [address] [address] [place] XR chest 1 view portable / bedside [...] 4:42:11 Performing Organization Address City/State/Zipcode Phone Number [employer] US testicular (scrotum) (05/25/2020 1:24 AM CDT) Specimen Narrative Performed At FINAL REPORT [employer] TECHNIQUE: Grayscale, color Doppler, and spectral Doppler [...] Pathologist Sig nature HBsAg Screen Nonreactive Nonreactive [facility] Specimen Blood Narrative Performed At Specimen is considered negative for HBsAg. [facility] Performing Organization Address City/[facility] Phone Number [facility] [address] [place] [address] CENTER Drug Test, General Toxicology, Urine (05/24/2020 6:40 PM CDT) Acetone(Quest) None Detected [facility] Methanol([facility]) None Detected [facility] Drug Test,Genrl see note [facility] Tox,U Comment: [facility]POR[facility] The following compounds were detected: Cotinine (Nicotine Metabolite) Morphine Acetaminophen Hydromorphone Hydrocodone Benzoylecgonine (Cocaine Metabolite) Cyclobenzaprine For a list of compounds and limits of detection go to: http://education.[employer] Cov[employer]eur/faq/AUX878 ISOPROPANOL None Detected [facility] ETHANOL None Detected [facility] Comment: INC[facility]PORATED Volatile Limit of Detectio n: 5 mg/dL This test was developed and its analytical performance characteristics have been determined by [employer] [place]. It has not been cleared or approved by the U.S. Food and Drug Administration. This assay has been validated pursuant to the CLIA regulations and is used for clinical purposes. Specimen Urine Narrative Performed At Performing Lab [facility] [address] [place], [address] [facility] [address] [place] [address] Mckenna Lopez MD, PhD Performing Organization Address City/State/Zipcode Phone Number [place] [address] B-type Natriuretic Factor (BNP) (05/24/2020 5:32 PM CDT)Only the most recent of 2 resultswithin the time period is included. Pathologist Sig donnell BNP 202 (H) 0 - 100 pg/mL [facility] Specimen Blood Narrative Performed At Motor Teacher ID - CECILIAG [facility] Performing Organization Address City/State/Zipcode Phone Number [facility] [address] [place] [address] CENTER 2D Echo W/Doppler(CW/PW/Color) (05/24/2020 9:17 AM CDT) Pathologist Sig nature Ejection Fraction [facility] [employer] [facility] Specimen Narrative Performed At Transthoracic Echocardiography Report (T TE) [facility] Dem[facility] Patient Name THIERRY PADILLA Date of Study 05/24/2020 KYLIE Gender Male Visit Number [id number] Race Unknown Room Number 7217 Number Date of 1965 Referring Physician 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 Owen Valdivia Interpreting Renato barr, Physician MD Procedure Type of Study TTE procedure:2DECHO [...] Study 05/24/2020 KYLIE Gender Male Visit Number [id number] Race Unknown Room N [facility] 7217 Number Date of 1965 Referr ing Physician Age 55 year(s) [employer] Job Titles Owen Burdenp reting Greg Roche MD Procedure Type of [...] T CI: 3.06 l/min/m^2 Performing Organization Address City/[facility]/Zipcode Phone Number [facility] MKCKESSON CPACS ABORH, manual (05/24/2020 3:57 AM CDT) Pathologist Sig nature ABO Grouping O [facility] DICAL [place] Rh Factor POS [facility] Specimen Blood Performing Organization Address City/[facility] Phone Number [address] [address] Vitamin B12 and Folate (05/24/2020 3:48 AM CDT) Pathologist Sig [facility] Vitamin B12 237 213 - 816 pg/mL [facility] Folate 4.00 (L) >=7.00 ng/mL [facility] Specimen Blood Narrative Performed At Motor Teacher ID - MARQUIS [facility] Performing Organization Address [facility] Phone Number [address] [address] [place] HIV-1 Antigen with HIV-1/2 Antibody (05/24/2020 3:48 AM CDT) Pathologist Sig [facility] HIV-1 Antigen with Nonreactive Nonreactive [facility] HIV 1&2 Antibody [facility] Specimen Blood Performing Organization Address [facility] Phone Number [address] [phone] [place] Hemoglobin A1c (05/24/2020 3:48 AM CDT) Pathologist Sig [facility] Hemoglobin A1C 5.8 4.3 - 6.1 % [facility] Specimen Blood Performing Organization Address [facility] Phone Number [address] [address] CENTER Blood Culture - Routine (Right Venipuncture) (05/24/2020 3:34 AM CDT)Only the most recent of2 resultswithin the time period is included. Pathologist Sig nature Result No growth in 5 days [facility] Specimen Blood - Entire right upper arm (body str ucture) Performing Organization Address City/State/Zipcode Phone Number [facility] [address] [place] [address] CENTER SARS-CoV2/RT-PCR (Symptomatic ONLY) (05/24/2020 2:33 AM CDT)Only the most recent of2 resultswithin the time period is included. SARS-COV2/RT-PCR Negative Not Detected, [facility] Negative, See [facility] external report CENTER for linked test SARS-COV-2 [facility] PERFORMING LAB [facility] Specimen Other - Nasopharyngeal wall structure (b alicia structure) Narrative Performed At Negative results do not preclude SARS-CoV-2 [facility] infection and should not be used as [...] the Act. Fact Sheet for Healthcare Providers: https://www.[employer]eur/Documents/Xpert%20Xpre ss%20SARS%20CoV-2/Fact%20Sheets/302-0482%20SAR S-COV-2%20HEALTHCARE%20PROVIDERS%20FACT%20SHEE T.pdf Fact Sheet for Healthcare Patients: https://www.[employer]/Documents/Xpert%20Xpre ss%20SARS%20CoV-2/Fact%20Sheets/3023801%20SAR S-COV-2%20PATIENT%20FACT%20SHEET.pdf Performing Laboratory: [address] [place] [address] Performing Organization Address City/[facility] Phone Number [address] [phone] [place] Blood gas, venous (05/24/2020 1:28 AM CDT) Pathologist Sig nature pH, Raquel 7.27 (L) 7.32 - 7.42 [facility] pCO2, Raquel 26 (L) 41 - 51 mmHg [facility] pO2, Raquel 63 (H) 25 - 40 mmHg [facility] O2 Sat, Raquel 89.7 (H) 40.0 - 70.0 % [facility] HCO3, Raquel 12 (L) 21 - 29 mmol/L [facility] Base Excess, Raquel -14.0 (L) -2.0 - 3.0 [facility] mmol/L [facility] Patient Temperature 37.0 C [facility] FIO2 100.0 % [facility] Specimen Blood Performing Organization Address City/[facility] Phone Number [address] [phone] [place] EKG-SCANNED (05/24/2020) Narrative Performed At This result has an attachment that is no t available. Ordered by an unspecified provider. after 08/26/2019 Advance Directives For more information, please contact: [phone] Code Status Date Activated Date Inactivated Comments Full Code 05/24/2020 1:02 AM 06/03/2020 4:31 PM This code status was determined by: Patient
--- OUTSIDE RECORDS SUMMARY | 2020-08-26 10:57 | XMS REPORT | Continuity of Care Document ---
:1965 Author Organization [facility] t Address [address] [place] [address] Care Team Providers Name Role Phone Santy Cardona MD, Kwaku Attending Clinician [phone] Donna Nicholas MD Attending Clinician David LOWERY, P. Attending Clinician Akilah Matthews MD Attending Clinician Shea Luciano MD Attending Clinician Akbar Monsalve MD Attending Clinician Unavailable Ariana LOWERY, Yaakov Attending Clinician KWAKU MIGUEL Attending Clinician Unavailable Veróinca Delgadillo DO Attending Clinician KWAKU MIGUEL Admitting Clinician Unavailable Payers Payer Name Policy Type Policy Effective Date Expiration Date Sour ce Number MEDICAREMEDICARE A [id number] 2020 ANAL[place]IA [place] [id number] 2019- 00:00:00 - Medical PresentMedicare Center MEDICAIDMEDICAID OF [id number] 2020 ANALILIA [place] [id number] 00:00:00 - Medical 0-PresentMedicaid Center Problems Condition Condition Condition Status Onset Resolution Last Treating Co mments Source Name Details Category Date Date Treatment Clinician Date Hyperkalem Hyperkalem Disease Active 2019-[address] [facility] 00 [place] PINA (acute PINA (acute Disease Active [facility] Allergies, Adverse Reactions, Alerts Allergy Allergy Status Severity Reaction(s) Onset Inactive Treating Comm ents Source Name Type Date Date Clinician Gabapent Drug Active 2019-[address] [facility] 00 [place] Social History Social Habit Start Date Stop Date Quantity Comments Source Sex Assigned At [facility] Smoking Status Start Date Stop Date Source Former smoker 2020-05-27 00:00:00 2020-05-27 00:00:[address] [facility] Medications Ordered Filled Start Stop Current [...] Source Name Name Influenza Four-QIV 2020-05-25 Completed [facility] PF 3YR+ 00:00:00 Medical Center Vital Signs Vital Name Observation Time Observation Value Comments Source Systolic blood 2020-06-03 11:45:00 129 mm[Hg] [facility] Diastolic blood 2020-06-03 11:45:00 81 mm[Hg] [facility] Heart rate 2020-06-03 11:45:00 80 /min [facility] Body temperature 2020-06-03 11:45:00 36.72 Gissell [facility] Respiratory rate 2020-06-03 11:45:00 19 /min [facility] Oxygen saturation in 2020-06-03 11:45:00 97 /min [facility] Arterial blood by Medical Ce nter Pulse oximetry Body weight 2020-06-03 04:52:00 69.9 kg [facility] BMI 2020-06-03 04:52:00 24.88 kg/m2 [facility] Body height 2020-05-24 00:30:00 167.6 cm [facility] Procedures Procedure Date / Time Performed Performing Clinician Sourc e HEMODIALYSIS INPATIENT 2020-06-03 12:01:00 Marlo Hernandez [facility] MAGNESIUM 2020-06-03 04:07:00 Kanwal Sonido [facility] PT/APTT 2020-06-03 04:07:00 Sonido Schofield [facility] HEPATIC FUNCTION PANEL 2020-06-03 04:07:00 Serenio, [facility] CALCIUM, IONIZED 2020-06-03 04:07:00 [facility] COMPREHENSIVE METABOLIC 2020-06-03 04:07:00 [facility] PHOSPHORUS 2020-06-03 04:07:00 [facility] CBC W/PLT COUNT & AUTO 2020-06-03 04:07:00 Kanwal [facility] (CELLAVISION MANUAL DIFF) 2020-06-03 04:07:[address] [facility] PREPARE LEUKO-REDUCED RBC 2020-06-02 23:54:00 Delia Matthews [facility] BASIC METABOLIC PANEL (7) 2020-06-02 03:56:[address] [facility] MAGNESIUM 2020-06-02 03:56:00 Kanwal [facility] PT/APTT 2020-06-02 03:56:00 [facility] HEPATIC FUNCTION PANEL 2020-06-02 03:56:00 Kanwal [facility] CBC W/PLT COUNT & AUTO 2020-06-02 03:56:00 Kanwal Sonido [facility] (CELLAVISION MANUAL DIFF) 2020-06-02 03:56:[address] [facility] TRANSFUSE LEUKO-REDUCED 2020-06-01 22:33:30 Delia Matthews [facility] RED BLOOD CELLS [facility] POCT-GLUCOSE METER 2020-06-01 22:11:00 Delia Matthews [facility] HEPATITIS B SURFACE 2020-06-01 19:23:00 David [facility] ukes - ANTIBODY [facility] BASIC METABOLIC PANEL (7) 2020-06-01 04:32:[address] [facility] MAGNESIUM 2020-06-01 04:32:00 [facility] PT/APTT 2020-06-01 04:32[facility] 2020-06-01 04:32:00 Sergema [facility] CBC W/PLT COUNT & AUTO 2020-06-01 04:32:00 [facility] (CELLAVISION MANUAL DIFF) 2020-06-01 04:32:00 [facility] HEMOGLOBIN AND HEMATOCRIT 2020-05-31 09:50:00 Cassie [facility] TYPE AND SCREEN, 2020-05-31 09:50:00 Cassie [facility] BASIC METABOLIC PANEL (7) 2020-05-31 05:34:00 Sergema [facility] MAGNESIUM 2020-05-31 05:34:00 [facility] PT/APTT 2020-05-31 05:34:00 [facility] HEPATIC FUNCTION PANEL 2020-05-31 05:34:00 Kanwal [facility] CBC W/PLT COUNT & AUTO 2020-05-31 05:34:00 Kanwal [facility] (CELLAVISION MANUAL DIFF) 2020-05-31 05:34:00 [facility] BASIC METABOLIC PANEL (7) 2020-05-30 04:39:00 Sergema [facility] MAGNESIUM 2020-05-30 04:39:00 [facility] PT/APTT 2020-05-30 04:39:00 [facility] HEPATIC FUNCTION PANEL 2020-05-30 04:39:00 Sergema [facility] CBC W/PLT COUNT & AUTO 2020-05-30 04:39:[address] [facility] (CELLAVISION MANUAL DIFF) 2020-05-30 04:39:00 Sergema [facility] BASIC METABOLIC PANEL (7) 2020-05-29 04:50:00 Sergema [facility] MAGNESIUM 2020-05-29 04:50:00 Serenibelgica [facility] PT/APTT 2020-05-29 04:50:00 Sergema [facility] HEPATIC FUNCTION PANEL 2020-05-29 04:50:00 Sergema [facility] PHOSPHORUS 2020-05-29 04:50:00 Christofer Concepcion [facility] CBC W/PLT COUNT & AUTO 2020-05-29 04:50:00 Sergema [facility] (CELLAVISION MANUAL DIFF) 2020-05-29 04:50:00 Sergema [facility] HEPATITIS PANEL, ACUTE 2020-05-28 14:19:00 Delia Matthews [facility] D-DIMER 2020-05-28 03:59:00 Delia Matthews [facility] BASIC METABOLIC PANEL (7) 2020-05-28 03:59:[address] [facility] MAGNESIUM 2020-05-28 03:59:00 Serenibelgica [facility] PT/APTT 2020-05-28 03:59:00 [facility] 2020-05-28 03:59:00 Sergema [facility] COMPREHENSIVE METABOLIC 2020-05-28 03:59:00 Dleia Matthews [facility] CBC W/PLT COUNT & AUTO 2020-05-28 03:59:00 Sonido Schofield [facility] S [facility] DIFFERENTIAL [facility] (CELLAVISION MANUAL DIFF) 2020-05-28 03:59:[address] [facility] REPORT OF PROCEDURE - 2020-05-27 08:30:[address] [facility] ENDOSCOPY [facility] TISSUE EXAM 2020-05-27 08:20:00 [facility],BIOPSY 2020-05-27 07:59:00 Bello [facility] BASIC METABOLIC PANEL (7) 2020-05-27 03:40:[address] [facility] MAGNESIUM 2020-05-27 03:40:00 Kanwal [facility] PT/APTT 2020-05-27 03:40:00 Sergema [facility] HEPATIC FUNCTION PANEL 2020-05-27 03:40:00 Kanwal [facility] CBC W/PLT COUNT & AUTO 2020-05-27 03:40:00 Kanwal Sonido [facility] S [facility] DIFFERENTIAL [facility] (MANUAL DIFFERENTIAL) 2020-05-27 03:40:00 Delia Matthews [facility] TRANSFUSION SERVICE 2020-05-26 18:21:41 Provider, Christopher [facility] REPORT - SCAN [facility] HEPATITIS C PCR, 2020-05-26 12:26:00 Vee Hernandez [facility] D-DIMER 2020-05-26 12:26:00 Vee Hernandez [facility] BASIC METABOLIC PANEL (7) 2020-05-26 03:50:[address] [facility] MAGNESIUM 2020-05-26 03:50:00 Sergema Sonido [facility] PHOSPHORUS 2020-05-26 03:50:00 Sergema [facility] PT/APTT 2020-05-26 03:50:00 Kanwal [facility] HEPATIC FUNCTION PANEL 2020-05-26 03:50:00 Kanwal [facility] CALCIUM, IONIZED 2020-05-26 03:50:00 Kanwal [facility] COMPREHENSIVE METABOLIC 2020-05-26 03:50:00 Marlo Hernandez [facility] CBC W/PLT COUNT & AUTO 2020-05-26 03:50:00 Kanwal [facility] (CELLAVISION MANUAL DIFF) 2020-05-26 03:50:00 Kanwal [facility] PREPARE LEUKO-REDUCED RBC 2020-05-25 23:54:00 Kanwal [facility] TSH/FREE T4 IF INDICATED 2020-05-25 19:14:00 Vee Hernandez [facility] HEMOGLOBIN AND HEMATOCRIT 2020-05-25 19:14:00 Layo Ley [facility] TRANSFUSION SERVICE 2020-05-25 18:01:32 Christopher Rivas [facility] HEMOGLOBIN AND HEMATOCRIT 2020-05-25 11:42:00 Layo Ley [facility] LACTATE DEHYDROGENASE 2020-05-25 11:42:00 [place] Layo [facility] (LDH) [facility] PROTHROMBIN TIME/INR 2020-05-25 11:42:00 [place] Layo [facility] D-DIMER 2020-05-25 11:42:00 [place] [facility] CBC W/PLT COUNT & AUTO 2020-05-25 11:42:00 Av Layo [facility] DIFFERENTIAL [facility] TROPONIN I 2020-05-25 03:42:00 Kanwal Sonido [facility] MAGNESIUM 2020-05-25 03:42:00 Kanwal [facility] PHOSPHORUS 2020-05-25 03:42:00 Kanwal [facility] HEPATIC FUNCTION PANEL 2020-05-25 03:42:00 Kanwal [facility] CALCIUM, IONIZED 2020-05-25 03:42:00 Kanwal [facility] LACTIC ACID, VENOUS 2020-05-25 03:42:00 Kanwal [facility] COMPREHENSIVE METABOLIC 2020-05-25 [facility] 2020-05-25 03:42:00 [facility] PERIPHERAL BLOOD SMEAR - 2020-05-25 03:42:00 Bala Genao [facility] - PATHOLOGIST [facility] r CBC W/PLT COUNT & AUTO 2020-05-25 03:42:00 Kanwal [facility] DIFFERENTIAL [facility] (CELLAVISION MANUAL DIFF) 2020-05-25 03:42:00 Kanwal [facility] PT/APTT 2020-05-25 03:41:00 [facility] IRON, TIBC, % SAT. 2020-05-25 03:41:00 [facility] (WITHOUT FERRITIN) [facility] 2020-05-25 03:41:00 [facility] HAPTOGLOBIN 2020-05-25 03:41:00 [facility] XR CHEST 1 VIEW 2020-05-25 02:00:00 [facility] PORTABLE/BEDSIDE [facility] US TESTICULAR (SCROTUM) 2020-05-25 01:24:00 [facility] TRANSFUSE LEUKO-REDUCED 2020-05-25 01:22:54 Kanwal [facility] RED BLOOD CELLS [facility] PREPARE LEUKO-REDUCED RBC 2020-05-24 21:55:00 [facility] HEMO[facility]IN [facility] HEMATOCRIT 2020-05-24 20:40:00 José Manuel Leyegan [facility] HEPATITIS B SURFACE 2020-05-24 20:40:00 Marlo Hernandez [facility] DRUG TEST, GENERAL 2020-05-24 18:40:00 José Manuel Leyegan [facility] - TOXICOLOGY, URINE [facility] TROPONIN I 2020-05-24 17:32:00 Kanwal [facility] B-TYPE NATRIURETIC FACTOR 2020-05-24 17:32:00 Sonido Schofield [facility] (BNP) [facility] TROPONIN I 2020-05-24 12:30:00 Kanwal [facility] HEMOGLOBIN AND HEMATOCRIT 2020-05-24 12:30:00 José Manuel Leyegan [facility] BASIC METABOLIC PANEL (7) 2020-05-24 12:30:00 Av [facility] 2D ECHO W/ DOPPLER 2020-05-24 09:17:10 Santy Cardona [facility] (CW/PW/COLOR) [facility] HEMOGLOBIN AND HEMATOCRIT 2020-05-24 08:02:00 Adela Miguel [facility] TROPONIN I 2020-05-24 08:02:00 Kanwal [facility] BASIC METABOLIC PANEL (7) 2020-05-24 08:02:00 José Manuel Leyegan [facility] PHOSPHORUS 2020-05-24 08:02:00 Av [facility] TRANSFUSE LEUKO-REDUCED 2020-05-24 07:31:48 Kanwal [facility] RED BLOOD CELLS [facility] LACTIC ACID, VENOUS 2020-05-24 03:57:00 Kanwal [facility] ABORH, MANUAL 2020-05-24 03:57:00 LionelVidhi cline Emily [facility] CALCIUM, IONIZED 2020-05-24 03:56:00 Sergema [facility] BASIC METABOLIC PANEL (7) 2020-05-24 03:48:00 Kanwal [facility] MAGNESIUM 2020-05-24 03:48:00 Sergema [facility] PHOSPHORUS 2020-05-24 03:48:00 Sergema [facility] PT/APTT 2020-05-24 03:48:00 Kanwal [facility] HEPATIC FUNCTION PANEL 2020-05-24 03:48:00 Kanwal [facility] HEMOGLOBIN A1C 2020-05-24 03:48:00 Santy [facility] HIV-1 ANTIGEN WITH 2020-05-24 03:48:00 [facility]2 ANTIBODY [facility] VITAMIN B12 AND FOLATE 2020-05-24 03:48:00 [facility] W/[facility]T COUNT & AUTO 2020-05-24 03:48:00 Kanwal [facility] DIFFERENTIAL [facility] BLOOD CULTURE 2020-05-24 03:34:00 Sergema [facility] PT/APTT 2020-05-24 02:59:00 Sergema [facility] TYPE AND SCREEN, 2020-05-24 02:59:[address] [facility] AUTOMATED [facility] BLOOD CULTURE 2020-05-24 02:58:00 Sergema [facility] SARS-COV2/RT-PCR ([facility] & 2020-05-24 02:33:00 Sergema [facility] - REF LABS) [facility] XR CHEST 1 VIEW 2020-05-24 01:37:00 Sonido Schofield [facility] - PORTABLE/BEDSIDE [facility] BASIC METABOLIC PANEL (7) 2020-05-24 01:29:[address] [facility] MAGNESIUM 2020-05-24 01:29:[address] [facility] PHOSPHORUS 2020-05-24 01:29:00 Kanwal [facility] HEPATIC FUNCTION PANEL 2020-05-24 01:29:00 [facility] LACTIC ACID, VENOUS 2020-05-24 01:29:00 [facility] L ukes [facility] TROPONIN I 2020-05-24 01:29:00 [facility] CBC W/PLT COUNT & AUTO 2020-05-24 01:29:00 Kanwal [facility] - DIFFERENTIAL [facility] BLOOD GAS, VENOUS 2020-05-24 01:28:00 [facility] B-TYPE NATRIURETIC FACTOR 2020-05-24 01:27:00 [facility] (BNP) [facility] REPORT OF PROCEDURE - 2020-05-24 00:00:00 Provider, Christopher [facility] - ENDOSCOPY SCAN Scanning [facility] SARS-COV2/RT-PCR ([facility] & 2020-02-22 10:34:00 [facility] - REF LABS) [facility] Plan of Care Planned Activity Planned Date Details Comments Source Future Scheduled 2020-08-[address] [facility] - Test 00:00:00 (12+) [code = [facility] Center DEPRESSION SCREENING (12+)] Future Scheduled 2020-05-[address] - Test 00:00:00 (WELCOME TO MEDICARE) [facility] [code = Medicare IPPE (WELCOME TO MEDICARE)] Future Scheduled [address] [facility] - Test [facility]00 (procedure) [code = [facility] Center 55421142] Future Scheduled [address] HEPATITIS B VACCINE [facility] - Test 00:00:00 (1 of 3 - Risk [facility] Recombivax 3-dose series) [code = HEPATITIS B VACCINE (1 of 3 - Risk Recombivax 3-dose series)] Future Scheduled 1965 Screening for ANALILIA [place] es - Test 00:00:00 malignant neoplasm of [facility] colon (procedure) [code = 698176103] Encounters Start End Encounter Admission Attending Care Care Encounter Source Date/Time Date/Time Type Type Clinicians Facility Department ID 2020-05-08 2020-05-08 Emergency [facility] [id number] 14:38:00 18:28:00 Renata Ramos [id number] [place] [id number] [place] [id number] Results Test Description Test Time Test [...] K/CU MM L MPV (test code = 10881-0) 10.8 fL 9.4-12.4 nRBC (test code = 413) 1 0- 0 /100 WBC H Lab Interpretation (test code = 71153-4) [facility]normal [facility] [id number] 10:02:00 Test Item Value Reference Range Interpretation [...] = 3438) FANTA (test code = FANTA) Ecommerce Analyst ID - Chris Mtz comments: Slide comments: Lab Interpretation (test Abnormal code = 21387-0) [facility] W/PLT COUNT & AUTO [id number] 10:02:00 Test Item Value Reference Range Interpretation [...] CONCENTRATION Decreased (CELLAVISION)(BEAKER) (test code = 3438) Ecommerce Analyst ID - Chris Bibi comments: Slide comments:Comprehensive metabolic [id number] 05:15:00 Test Item Value Reference Range Interpretation Comments Protein, Total (test 6.5 6.0- 8.3 gm/dL Speci men slightly code = 2885-2) hemolyzed Albumin (test code = 3.3 g/dL 3.5-5 L Specime n slightly 76141-3) hemolyzed Alkaline Phosphatase 71 U/L 40-150 (test [...] Calcium (test code = 9.2 mg/dL 8.4-10.2 11850-5) AST (test code = 42 U/L 5-34 H Specimen sl ightly 1920-8) hemolyzed ALT (test code = 14 U/L 6-55 Specimen sl ightly 1742-6) hemolyzed EGFR (test code = 6 mL/min/1.73 [place] [address]-4) NOT ACCURATE CREATININE CLEARANCE IN PREDICTING GLOMERULAR FILTRATION RATE . ESTIMATED GFR I S NOT APPLICABLE FOR DIALYSIS PATIENTS. FANTA (test code = FANTA) Ecommerce Analyst ID - BONILLA M Lab Interpretation Abnormal (test code = 40280-3) [facility]OLIC [id number] 05:15:00 Test Item Value Reference Range Interpretation [...] S NOT APPLICABLE FOR DIALYSIS PATIEN TS. Ecommerce Analyst ID - BONILLA epatic function [id number] 05:03:00 Test Item Value Reference Range Interpretation Comments Protein, Total (test 6.5 6.0- 8.3 gm/dL Speci men code = 2885-2) slightly hemolyzed Albumin (test code = 3.3 g/dL 3.5-5 [place] [address]-2) slightly hemolyzed Total Bilirubin (test 0.3 mg/dL [...] slightly hemolyzed FANTA (test code = FANTA) Ecommerce Analyst ID - BONILLA Lab Interpretation Abnormal (test code = 75645-8) [facility]2020-10-14 05:03:00 Test Item Value Reference Range Interpretation Comments Magnesium (test code = 2.0 mg/dL 1.6-2.6 Speci men 04289-2) slightly hemolyzed FANTA (test code = FANTA) Ecommerce Analyst ID - BONILLA Lab Interpretation Normal (test code = 15617-9) [facility]2020-10-14 05:03:00 Test Item Value Reference Range Interpretation Comments Phosphorus (test code 4.3 mg/dL 2.3-4.7 Specim en = 2777-1) slightly hemolyzed FANTA (test code = FANTA) Ecommerce Analyst ID - BONILLA M Lab Interpretation Normal (test code = 32674-8) [facility]2020-10-14 05:03:00 Test Item Value Reference Range Interpretation Comments MAGNESIUM (BEAKER) 2.0 mg/dL 1.6-2.6 Specimen slightly (test code = 627) hemolyzed [employer]commerce Analyst ID - BONILLA [id number] 05:03:00 Test Item Value Reference Range Interpretation Comments PHOSPHORUS (BEAKER) 4.3 mg/dL 2.3-4.7 Specimen slightly (test code = 604) hemolyzed Ecommerce Analyst ID - BONILLA MHEPATIC FUNCTION [id number] 05:03:00 Test Item Value Reference Range Interpretation [...] Specimen slightly (test code = 347) hemolyzed E[employer] Analyst ID - BONILLA [id number] 04:44:00 Test Item Value Reference Range Interpretation Comments Protime (test code = 14.1 11.9- 14.2 5902-2) seconds INR (test code = 1.12 <=5.90 6301-6) PTT (test code = 38.0 22.5- 36.0 H 45962-5) seconds FANTA (test code = FANTA) Effective 01/16/2019: PT Reference Range ChangeNew: 11.9-14.2 Previous: 11.7-14.7 RECOMMENDED COUMADIN/WARFARIN INR THERAPY RANGESSTANDARD DOSE: 2.0-3.0 Includes: PROPHYLAXIS for venous thrombosis, systemic embolization; TREATMENT for venous thrombosis and/or pulmonary embolus.HIGH RISK: Target INR is 2.5-3.5 for patients wiht mechanical heart valves. Lab Interpretation Abnormal (test code = 00365-1) [facility]/[id number] 04:44:00 Test Item Value Reference Range Interpretation [...] is2.5-3.5 for patients wiht mechanical heart valves.Calcium, [id number] 04:34:00 Test Item Value Reference Range Interpretation Comments Calcium, Ion (test code = 1993-3) 1.17 mmol/L 1.12-1.27 pH, Blood (test code = 32985-1) 7.44 [facility], [id number] 04:34:00 Test Item Value Reference Range Interpretation Comments CALCIUM IONIZED (BEAKER) (test 1.17 mmol/L 1.12-1.27 code = 698) PH, BLOOD (BEAKER) (test code = 7.44 1810) Prepare Leuko-Red [id number] 23:54:00 Test Item Value Reference Range Interpretation Comments CROSSMATCH (test code = 2264) COMPATIBLE Unit ABO (test code = O Pos 7242105) UNIT NUMBER (test code = [id number] 934-0) Status (test code = 2195664) TX_TIMEINCHART Blood Bank Product (test code RED BLOOD CELLS = 2263) PRODUCT CODE (test code = H3691O98 933-2) [facility] W/PLT COUNT & AUTO [id number] 07:51:00 Test Item Value Reference Range Interpretation [...] CONCENTRATION Decreased (CELLAVISION)(BEAKER) (test code = 3438) Ecommerce Analyst ID - Abby Higgins comments: Slide comments:Basic Metabolic [id number] 05:22:00 Test Item Value Reference Range Interpretation Comments Sodium (test code = 135 meq/L 136-145 L 2951-2) Potassium (test code = 4.7 meq/L 3.5-5.1 2823-3) Chloride (test code = 98 meq/L 98-107 2075-0) CO2 (test code = 25 meq/L 22-29 2028-9) BUN (test code = 36 mg/dL 7-21 H 3094-0) Creatinine (test code 6.44 mg/dL 0.57-1.25 H = 2160-0) Glucose (test code = 96 mg/dL 70-105 2345-7) Calcium (test code = 8.6 mg/dL 8.4-10.2 03069-2) EGFR (test code = 9 mL/min/1.73 [place] [address]-5) NOT ACCURATE CREATININE CLEARANCE IN PREDICTING GLOMERULAR FILTRATION RATE . ESTIMATED GFR I S NOT APPLICABLE FOR DIALYSIS PATIENTS. FANTA (test code = FANTA) Ecommerce Analyst ID - EDASI Lab Interpretation Abnormal (test code = 10374-1) [facility] METABOLIC [id number] 05:22:00 Test Item Value Reference Range Interpretation [...] S NOT APPLICABLE FOR DIALYSIS PATIEN TS. Ecommerce Analyst ID - [id number] 04:52:00 Test Item Value Reference Range Interpretation Comments MAGNESIUM (BEAKER) (test code = 1.9 mg/dL 1.6-2.6 627) Ecommerce Analyst ID - EDASIHEPATIC FUNCTION [id number] 04:52:00 Test Item Value Reference Range Interpretation [...] (test code = 15 U/L 6-55 347) Ecommerce Analyst ID - EDASIPT/[id number] 04:20:00 Test Item Value Reference Range Interpretation [...] is2.5-3.5 for patients wiht mechanical heart valves.POC-Glucose [id number] 22:24:00 Test Item Value Reference Range Interpretation Comments POC-Glucose Meter (test 99 mg/dL 70-110 : TE STED AT [facility] code = 1538) [address] [facility] [place], [address]: Ecommerce Analyst/Techni connie ID = [id number] for Jerson Morales Lab Interpretation (test Normal code = 43042-2) [facility] [id number] 22:24:00 Test Item Value Reference Range Interpretation Comments POC-GLUCOSE METER 99 mg/dL 70-110 : TESTED A T [facility] 6720 (BEAKER) (test code = [place], 1538) [address]: Ecommerce Analyst/Techni connie ID = [id number] for Jerson Soriano Hepatitis B surface [id number] 20:25:00 Test Item Value Reference Range Interpretation Comments Hep B S Ab (test code = 27.2 <8.0 mIU/mL H 03687-9) FANTA (test code = FANTA) Ecommerce Analyst ID - DB Lab Interpretation (test Abnormal code = 50846-0) [facility] SUR[facility] [id number] 20:25:00 Test Item Value Reference Range Interpretation Comments HEPATITIS B SURFACE ANTIBODY 27.2 mIU/mL <8.0 H (BEAKER) (test code = 647) Ecommerce Analyst ID - DBDrug Test, General Toxicology, Gvvaf2530-41-44 11:06:00 Test Item Value Reference Interpretation Comments Range Acetone(Quest) None Detected (test code = 3053) Methanol(Quest) None Detected (test code = 3054) Drug Test,Genrl see note The followin g compounds were Tox,U (test detected: Co tinine code = 4384290) (Nicotine Me tabolite) Morphine Osvaldo taminophen Hydromorphone Hydrocodone Benzoylecgoni ne (Cocaine Metabolite) Cyclobenzaprine For a list of compounds an d limits of detection go to:http://educa tion.[employer]/faq /ABX855 ISOPROPANOL None Detected (test code = 4523641) ETHANOL (test None Detected Volatile code = 4819949) Limit of Det ection: 5 mg/dL This test was d ivanaoped and its analytical performancechar acteristics have been deter mined by [facility] [place]. It hasnot been enoch ared or approved by the U.S. Food and DrugAdministrat ion. This assay has been validated pursuantto the CLIA regulations and is used for clinicalpurpose s. FANTA (test code Performing Lab = FANTA) [facility], [address] [facility] [place] [address] Mckenna Lopez MD, PhD [facility] W/PLT COUNT & AUTO [id number] 08:11:00 Test Item Value Reference Range Interpretation [...] CONCENTRATION Decreased (CELLAVISION)(BEAKER) (test code = 3438) Ecommerce Analyst ID - Jonna Pascual comments: Slide comments:BASIC [...] S NOT APPLICABLE FOR DIALYSIS PATIEN TS. Ecommerce Analyst ID - BONILLA [id number] 05:45:00 Test Item Value Reference Range Interpretation Comments MAGNESIUM (BEAKER) (test code = 2.2 mg/dL 1.6-2.6 627) Ecommerce Analyst ID - BONILLA MHEPATIC FUNCTION [id number] 05:45:00 Test Item Value Reference Range Interpretation [...] (test code = 11 U/L 6-55 347) Ecommerce Analyst ID - BONILLA MPT/CAMH3616-23-24 05:17:00 Test Item Value Reference Range Interpretation [...] patients wiht mechanical heart valves.Type and screen, sxrcespks2333-39-20 11:24:00 Test Item Value Reference Range Interpretation Comments ABO/RH AUTOMATED (BEAKER) (test O POSITIVE code = 2260) Ab Scrn (test code = 890-4) NEGATIVE [facility]em[facility] and [id number] 09:57:00 Test Item Value Reference Range Interpretation Comments Hemoglobin (test code = 7.2 13.7- 17.5 GM/DL L 786-4) Hematocrit (test code = 21.2 % 40.1-51 L 4544-3) FANTA (test code = FANTA) Ecommerce Analyst ID - [id number] Lab Interpretation (test Abnormal code = 88792-1) [facility]HEMOGLOBIN AND [id number] 09:57:00 Test Item Value Reference Range Interpretation Comments HEMOGLOBIN (BEAKER) (test code = 7.2 GM/DL 13.7-17.5 L 410) HEMATOCRIT (BEAKER) (test code = 21.2 % 40.1-51.0 L 411) Ecommerce Analyst ID - [id number] W/PLT COUNT & AUTO [id number] 08:25:00 Test Item Value Reference Range Interpretation [...] CONCENTRATION Decreased (CELLAVISION)(BEAKER) (test code = 3438) Ecommerce Analyst EVELYNE Adams comments: Slide comments:BASIC METABOLIC [id number] 06:33:00 Test Item Value Reference Range Interpretation [...] S NOT APPLICABLE FOR DIALYSIS PATIEN TS. Ecommerce Analyst ID - BANDAR [id number] 06:22:00 Test Item Value Reference Range Interpretation Comments MAGNESIUM (BEAKER) (test code = 2.1 mg/dL 1.6-2.6 627) Ecommerce Analyst ID - BANDAR LHEPATIC FUNCTION [id number] 06:22:00 Test Item Value Reference Range Interpretation [...] (test code = 12 U/L 6-55 347) Ecommerce Analyst ID - BANDAR LPT/[id number] 06:13:00 Test Item Value Reference Range Interpretation [...] mechanical heart valves.CBC W/PLT COUNT & AUTO [id number] 07:32:00 Test Item Value Reference Range Interpretation [...] (CELLAVISION)(BEAKER) (test code = 3438) BASIC METABOLIC [id number] 06:02:00 Test Item Value Reference Range Interpretation [...] S NOT APPLICABLE FOR DIALYSIS PATIEN TS. [id number] 06:00:00 Test Item Value Reference Range Interpretation Comments MAGNESIUM (BEAKER) (test code = 2.0 mg/dL 1.6-2.6 627) HEPATIC FUNCTION [id number] 06:00:00 Test Item Value Reference Range Interpretation [...] (test code = 12 U/L 6-55 347) [id number] 05:30:00 Test Item Value Reference Range Interpretation [...] mechanical heart valves.CBC W/PLT COUNT & AUTO [id number] 07:05:00 Test Item Value Reference Range Interpretation [...] CONCENTRATION Adequate (CELLAVISION)(BEAKER) (test code = 3438) Ecommerce Analyst ID - Kaylee Martines comments: Slide comments:BASIC [...] S NOT APPLICABLE FOR DIALYSIS PATIEN TS. Ecommerce Analyst ID - [id number] 05:42:00 Test Item Value Reference Range Interpretation Comments MAGNESIUM (BEAKER) 1.7 mg/dL 1.6-2.6 Specimen slightly (test code = 627) hemolyzed Ecommerce Analyst ID - [id number] 05:42:00 Test Item Value Reference Range Interpretation Comments PHOSPHORUS (BEAKER) 4.8 mg/dL 2.3-4.7 H Specimen slightly (test code = 604) hemolyzed Ecommerce Analyst ID - EDASIHEPATIC FUNCTION [id number] 05:42:00 Test Item Value Reference Range Interpretation [...] Specimen slightly (test code = 347) hemolyzed Ecommerce Analyst ID - EDASIPT/HTCL5145-25-26 05:19:00 Test Item Value Reference Range Interpretation [...] = No growth in 5 days 6463-4) [facility] [id number] 05:01:00 Test Item Value Reference Range Interpretation Comments CULTURE (BEAKER) (test No growth in 5 days code = 1095) BLOOD [id number] 05:01:00 Test Item Value Reference Range Interpretation Comments CULTURE (BEAKER) (test No growth in 5 days code = 1095) Hepatitis panel, [id number] 18:27:00 Test Item Value Reference Range Interpretation Comments Hep A IgM (test code = Nonreactive Nonreactive 40064-7) Hep B C IgM (test code = Nonreactive Nonreactive 84226-4) Hepatitis C Ab (test code = Reactive Nonreactive A 59715-0) HBsAg Screen (test code = Nonreactive Nonreactive 5195-3) FANTA (test code = FANTA) Ecommerce Analyst ID - DB Lab Interpretation (test Abnormal code = 73302-0) [facility] PAN[facility], [id number] 18:27:00 Test Item Value Reference Range Interpretation Comments HEPATITIS A IGM ANTIBODY (BEAKER) Nonreactive Nonreactive (test code = 498) HEPATITIS B CORE IGM ANTIBODY Nonreactive Nonreactive (BEAKER) (test code = 645) HEPATITIS C ANTIBODY (BEAKER) Reactive Nonreactive A (test code = 367) HEPATITIS B SURFACE ANTIGEN (2) Nonreactive Nonreactive (BEAKER) (test code = 2585) Ecommerce Analyst ID - DBTissue [id number] 13:01:00 Test Item Value Reference Range Interpretation Comments Case Report (test Surgical Pathology code = 104) Report Case: [id number] Authorizing Provider: Myrna Monsalve MD Collected: 05/27/2020 08:20 AM Ordering Location: [address] Received: 05/27/2020 02:50 PM SERVICE Pathologist: Rosa Cisneros MD Specimens: A) - Biopsy, Gastric, random biopsies R/O H. pylori B) - Biopsy, Gastroesophageal Junction, random biopsies R/O Islas's DIAGNOSIS (test code t1yuvASoUVJtd1pbAYGyuMBx = 3220) ZzEwMzNcZnRuYmpcdWMxIHtc psDfJJfbn2ZtF8DiXaCcAGkb bnNpXGRlZmxhbmcxMDMzXGZ0 cwKfYEBuDVtaXOGcIYanXd1p zJYlcDfnNgYoRIRrj6dzhqES ynebeJq3r0qfEIUsXyO6zXCf BUsrJ6yfqnNsvFRzESOmFGn6 yL67CCLefT8tfDTyHCapqtGm MvA2GZfwNAHbKnR1YVZrhHEh LMYaX0zrAIHeNSwtOBLaXUeg nIUfJQT4qAdnd2K7wQJgrNZv aIqrXkNzVhDmGLRHz0ItDAk4 cFecT0PnODOyUvL1yWLqCDFy HZioTCQdIVFaqjP4zY08JYlu rsI2iUZxf8Rxn90tf822cZ0j mADxVMO3DFNxAVOagZVcMQQx YWB2GWEwqEXcY1e6WxJwnDSf T7L8JwKuaEEfA0A9PkFhbBNn K5M6KzEmsFOxOZPohKWxZx6s kCTmqWOgpv8inn92RNX4s1Zk qPkiIDC1ZON5ObGtPp6olXEj XZUlGR3zXxEktOCePTSbxg38 fUhaOLinbtIgbN0yXzTnABGr cPDgIAWlCD0twKHsSNHjuK7r cmxjXHBnYnJkcmhlYWRccGdi cqTmYe1hcFhmWKI3ATmnR1ju cM4mQkC1VQfqT0ervU9fIKc0 PExijYI7WJPjyW9hSZ6qlwof d2amMeRgSZ5sbelnw2oxUhHf XU0bapy8x3grGuUiAN8clsux k0cpQmLoXIlfRZUjyrkuSYDd l0YpxpqsXOEzq7ZqD7BozHop H57kqAkoA45ePNFhxPjynN0n hWzdfN1iTsUnXoCsMXhqgSdr bGFpblxmMVxmczIwXGxhbmcx WATzBLzaG2nlGdXyMQSteHhv GOpto6GsATXsNYUoQlEoQA0g K5LTYQCBQMslZZ9UG2AED8SG PyOVHVLEH9VVUFDXP1VKWSVU IFxwYXIgLSBBTlRSQUwgTVVD Q2VPDYtSIEdiM2zUE31AClIA TkFDVElWRSBHQVNUUklUSVMg GC3EOPPGW2DTRDrTDAXSOIqE QUwgTUVUQVBMQVNJQSwgXHBh ciAgIENPTVBMRVRFIFRZUEVc cKBvIO3rR9kOEpZCIlDDHLVW I0ArR8eLBJNQTkWZAUfBXSJQ H1DXKJFPSUPFC2vPF5wDOHLO SKUJTGOLW61QTXTizaFcNL0H B8TDMGJRZYLWNuBFAZhXN71S HBZTBJIdGTnDZ0IEQFRtcdAs CQ5WB7RGZEZKDFNNLwZQKGMX PHUCDSCwP8EmO9NIU4kEM55A LKAstrbuKKRhUq7wS7YJRGYI KYWKQXfCE3QWELZJXW2ECSrZ LvgbVY6JN4DLA7UXFxSEYLIE N2UNTYIMI6YGYSNRFLYozzKd QCMYHHUKY3YNPIBRJeNCVQ8F C85URNINCWDBOZASVShLBCJS WTXFVGCWP4puFUTyBMYWWTsB WMaYJTSKR7XlR5GBT6oZWKxo RUQgQkFSUkVUVCBNRVRBUExB Z8cOJMIncaamQUPedQLeiHyj xoYeQZmaj3TbMXveTFNdVP4a oEbvTYFdOQ0tEOQcL3fllP7j pyb2TtGkWPKkYbS2RLIwoxO7 Vvo2ZYJpOBavt8cis7PrSFRl MIl6bOmdVaIkQQJvr4owsnXg YhNbAKHhAVHwKIZodRVwN883 y6nkf2ifjyCqbMR1BTLiOQW9 LYenhhCujkT3AYjvqFEwFiU8 IDtccmVkMFxncmVlbjBcYmx1 BMKwD875PBZ5oKmsk7ohHZA9 WQGaZSQdGgUuNw9xnGYdZ619 KOSaIMPLGJIpoZf4FOGoxiVq nnLpcTHNb360U151r6wcKXIs rdVhzEqNlmtyw8lzQ945PMLu cGVydzEyMjQwXHBhcGVyaDE1 ENUgQV7xlehkZPopAUwaYBCw drO6DGExbBArJ2WxFRYtIO9t tllyLFR6YNuhOTRtPNX4RyEp FLApq8Cdywy1TqMxgl8wbn01 AWW3p4BkeNilAEJ6DAX7ZqCx Ks0udAYdLWUyCU7oJpSuhGQr RZGkrf54wVwqFRrdBLL1MIUo dcDow4Xzd7ceZqHtgkHeM4xm B9ZjGZHpYXKjFKGbQmGmszFi e5Edx7OgzWFrdXv4u6csRFBm IJLusDthz9jjDJG8MVJgxDSw Y4bciO0qSWMkGR5nfhmvf2nn UXglRUpjTHHjfEN9neZ5JPEq ePRmQ6RywT8jPDNuWRzbPLWz ziu5FlLfNt0buYNlaLkoYVkl YmtwYWdlXHBnbmNvbnRccGdu ZGVjXHBsYWluXHBsYWluXGYw XGZzMjRccWxcbGFuZzEwMzNc aGljaFxmMVxkYmNoXGYxXGxv S2pkInFxAbGpTxf8SPVisPRk FSJgFtl1YLVdnDXdMUPHtFhy jE4hEISnpTkfgA4prJJ5YDIz rtTddIKLlU4nCLPVzI2kViL8 EiPtFeN4DPVcLOfqsWVphU0= COMMENT (test code = d5ndeOFdUHVlkYWoBgVySVWp 3359) PUSmr3utXCNmwQWlWdWbEyGh ZsXbVduyiITcVMGwSyCue7ev b468kGQka2pxFQRmRnF6kVPr MMRxfOKzO830t0kox0dbouSl uXB7YNBsXXT8YMnjqcApkpI6 VUdyaAQfCsI1XAvgzqNjIGjt rnJrcrIhOnc2HAJwF733ILX2 vWxfj3vlNJB1PAYvPHKnOdIb Lg5ikRPsH407UIPvAHKAGPVw eXu2SQFnzyZbdvRgiVMEb218 D665b9wmXDYpswNzsUrJjtws r3ppB438AFQdfIHwkgAwIxLa GJPtxVDyrXE2NDMjHY2xcosp SoFzKX0zfgwrRkUxWZ6umdv7 VoChGY7ftxnoOmQhMPkoJAQl gwvwJLYiy7FtdndyCR4kL7Nq k0K8tX2mcESeRTOkmIZxWfLn EBQbyq5vlJClGHqjy5IjWZX2 xvD8qFHwyPCqTHIaMR32Neyo n8BpWddpDHR9ITXfifWbm8Tv m6scSxPmppEyP6ceM1JlMCGd PBIvKIRoFpNbuqJqb9Lwi4Zo yHMvaQg0t8fmKOZbJPAgkFqm m5tnLBL8AWBhK4N1nBXkn9zu MLyrRULigCV1fnmhBOrgQNIz slS0xwmeKCeuJXMenAZ4mryi CYnsQDTgRrT2novmWLnxNMAj WFC2HGioq530AIM9EYpiUnjo YWdlXHBnbmNvbnRccGduZGVj XHBsYWluXHBsYWluXGYwXGZz GrFqwQfisXffuP9mQaUaIfEm LNpmLO5gQWVeQ9irqWJfTJHs MYIjA0mvGeAtdW3itPqgDDsa usBhPB9ypUVasV== CPT Code(s) (test p4jsdSYrDNBycOQuWfIyJSXo code = 3357) RQFat3uaXDMkwLFzJrMqXhGr ZpHpQubxgUTqOYTzRtYcd7mv q617mPPtb2zfUWIqBhX8kENc ZSLhwMHxH096z0rzv1yurmBx dQQ8NMSiREN7DOmryiFwmqG7 TJckmRJqSwV3XGzzuhLvRVpl ghXrgsXvCfu7YJAaB968IEU8 qNclf3hfDKR6SMDwWZQxDrBs Hp8soEJwY093TGJxQPNHOBOx kYx3ZYDzbjQhfmEceKXGw551 X021x1dvASGhljSzlOnQxabv s8wgJ357HSWauOYdspWsToUp YXMliXNcwYA1WWDnOQ8xengl OrDnHM2ibyovUvFeWU8fhhe8 AwQfMW0ypxytByNzDGrnHBIw gfimQPPhl5ScohpzPL9gP1Ip v7Y7kH6hwOPcHHKzbXRhMdCs IGMwkv2khXIoSRpcq6LqFJU6 juB5hZTqyCGiBLPaGP46Tiqm t2UyQblkWBC8GLGfpoOcm2Vk f1asHdLkcjBdT7fjY6YkMTRw BQXbXGCsRkBvarYwh7Usm5Qh bEZxoRs0u5riOXTyAHHoyFzq y3voRNS6QTUaG5U1wDRex8zm DCzrDGVgaDR1rxziQByaTRPr acT0ufeqRCttOTQbjNF5nmwv XIbmKOVjEtF7luxsMQwaIOGf QDO1ZGwii062BPT2COmaIdny YWdlXHBnbmNvbnRccGduZGVj XHBsYWluXHBsYWluXGYwXGZz AsIvnPujwBzoeF8zZiIyWxRn JUtuQD9gQQTcQ6mfgRXxXJJs WNQwK7irMhDbgC4nhJnsPZnh olWtZLk8FaP1FZlwBSA1XXFl MlxwYXJ9 CLINICAL HISTORY r8hcyASyCBZbeUZkRmMaPUTj (test code = 3356) BZTjm0efTOSqrIIuGgZgVfAp ZwYqOwofdUQzVZCaKqEju4df d708cOVoq5fyZBKtXcE6iIVb HPEbeURhG806t2zep1oppuOx vKS9UHHeVQV2KSzahjFuhcV9 XBftlBIsMyQ4XQhtthUbUNxr abJnroKtLsj4JNTvR158OCZ7 mQgty8zzGCL9TCUvURKwVvGe Dg5akSPuK113YFGnPIMLFHBi hFj4HUSorbDwaiSifHWHe687 Z704g5dhFRZwapZiyZgCgava u2buO957YQNehNEfmyGaSnKq ZIMzsSFltST4BBMfVX2mxmcq FpEaVZ6pqricHcGfNQ4xlex7 GrYvKV3bflckCpFrAHfnZHYt qewjMNDwd0LlpttlAK6uX6Aa d3Y7tF3tcTOcQQLhfHDfXsVw MQKocp1gdCHdFQouq7CpNCZ1 rkV9tPFvtYJmMCSmBQ87Vsup v5DhEhxjOXH9GXNrjgOcx2Xh m3ozAnGeprPrD5vwT0LcRJAn GLMqBNUcPyNfqaCqo9Gtx7Kc jKGnkTp3y0nkRHZvXVHczMnp h9onPCM1XKOzB0V9kWTdv6gs HXrqOTImeOY2oznnMZnmGGTe viP1nmpaKSlkFODbhQY9phte IQcbJNPlSiR1ueknBAxyULFc HLU1JQgbi363VFC2JOxiCdfp YWdlXHBnbmNvbnRccGduZGVj XHBsYWluXHBsYWluXGYwXGZz OdEtxHwtfEfpjT4pPpTuYhVq UXxwQC9zABHsM6ufuYGaEZEz MSPnZ1wkTyNmfP3qhUhwFIqi moInUIDkQI8aFGEldKWngN== SPECIMEN SOURCE (test r8sekVIpUOPuxWAlFgQgOGDu code = 3377) OGKws3lhBZZyqKMuDwCkIjZa GlTeLhyjxGEkTWBoLsKfd8le m973xCWsc7qaYFOoScK5lQGp IBDmxONsV145n2ssu3ojlsJk pLT5TDVrJWO7CXqzqkIgvvO1 LKnblSChAtV2WQayfnRsYOec rgKlshMeTqx3QVZvA650EPB2 xOint6uvIWT9BZJzSDLgEsYt Ni4dbXJtH244NXRkOHBVHIKp oRx2ACFftiHuqdRphDKAd213 F768w9rmEROgpkQfxCqVmvio c6nxT867SPPsfRCozePdOtAe WVPuzATxnLA6BUIgVX0kdgyp VlYqVL9fbpqrYvPiGJ3tpfw1 JrDbPH4xtnzuWiCcPWlfFVYp wzngBKJqe9SbfruxFQ7dO1Af b0S4aI1xgVGbWKTlsUHcFoYt NYDntl0dqEGbYSgiv6CdITQ1 ydE7vRYvdEIcEACmUO42Krsm s2FaPmztZJN2MXDgoxYck7Lr i3ruCmAljfIcC3viV6PhKBYw TGXiERZlPkXfpwRnt4Lhh1If uEKevBs3v7blSQMhDMTdvScn p2vjKJR4BPQgN8C7iCIea0ly EVytRLUnqSO8ygpuWLnlTMVj ecW4bvhhKDgvXQTsvDT0hjwc IIstJPCvKgB2xncvXYjcIPWe NYI3THtxv888NGG3IWyrYrwm YWdlXHBnbmNvbnRccGduZGVj XHBsYWluXHBsYWluXGYwXGZz ZoCjkEhugYdtyR7tSkMwAwUy VSdoHX5gHEMzM3wqhONfSXLs JDRiH8pfZvYazW7xgBzzSYiv czIwIEEuIFJhbmRvbSBnYXN0 xrmrGUKxo4VxiQxucpTcHZAx mRLhEX0dJFgir7KvRQArgnDL ImWBFU8dq63lU9UpzpFbO6Eb a94bElsanHH4ZTTvpTpeAM44 dEYDIKMiLBK3O3BzWZFita1= GROSS DESCRIPTION v0wgzLLnZZLnzOOnEcMhNNYy (test code = 3366) QSLxu7utAULhaXCdDaAmBxJp OaCjNumqjQSbRLCjZdMpu5ww b009rPHox5vvMBYnPiE3bPZq KHDrbJItL683GCXbDHhdq0zf r9HdDULruMUsn6U3PRKGztki oIp8jBrlG35pp0V6SudvP0hi JKHhJITfI1HrVY4cIPNxIwz8 BZC8FZD1XPVcAOKqW3MpAW8r NIRrvYTaIJa1w1onrNlyYQHi BEI4m9nrCFbdaaKmGS0ske5g jBo4d4fcdwMjQRZpDCNllHUI GFWbT2MeaDudYt5rwRv5tTts MmmeHGD5Ifp9IR7pqq70bgq5 uUgvATOncnxqAyR5THjjVJNi zhfmZWx3WMrpHMVbtWqzQMkl YXJncjcyMFxtYXJndDcyMFxt CXSxJtrrIZydFNCmJMG9EJqb z489CAP6QRuge2koe8dbhPPv Bce5KWJvBdDyYjshDLipb3Sc k8rhWFCube5zQNZ3mNVtbUle v1J8wSTaDKTclNOzfgIfSHDn QvG4TJspND9aeg65HXAdMKH3 ew4fmGCbuXaaqiYqwETzFLej T2XdVISvw992XONsR2EdECRg y1I2acSvIiJfRDPxpWI0kyD2 CXCsBCv8jOQuapO6qqHdxWJh R1ivkR04RwOakUOaK7BlwU18 PaEwtJOwB7QybZ71XlEwcTVd V9ApaZ38QmQvpKUwQNXyyYAc Bj3nyTXfoPIkm0RooQOqXIyn Z44yo142VIXcaoStT1vfsSKf zfllfXFvwgxfUWjwgnO5BSZh XHBsYWluXGYwXGZzMjBcbGFu ZzEwMzNcaGljaFxmMFxkYmNo TIOhMOblW3bsGqPpTuGaBLRR XrYFFBYvzSYtJJWkxcQbr3Ok YWxpbiBsYWJlbGVkIHdpdGgg rTsiOWVbhXkixeZlswEsHW4k HYJpHFDcW4QhJGCtP12gGJQh iE3wRBBmCS4nGCPlRTO2abxi QGLhh9IfdVWzUAQgMNY0iaKn xMYoAUAcg3VglXZiUPbguAJq MB75Z32zPA1gk5EgnpCiTPSa e6X4WUL3hSJ7SN6bPLC2xkJn UX22INxsXD2oYGmsAN2wMWXq SDhoNMQtS2FiP3V0JD9iMTnk VADhSBEtqOWyQEjnNJF2Hz3i sVDxCHNtrvI3e9LxBTJmcZje s3rpMjXbiUd0dfB8tL4ySRog XELsm4FixBIeQXDbWeugWQGe cGFyXHBsYWluXGYxXGZzMjBc bGFuZzEwMzNcaGljaFxmMVxk ZwKmVBKyGWbxG5vlLsFiAuUg MCBCLiBSZWNlaXZlZCBpbiBm l4DrZGnhitCrVMGjsUEjIClk dGggdGhlIHBhdGllbnQncyBu SH6nASBtGLSjP1PhBGUaM87i GHTxcO2gYVXtIM1yBUNQKJPf lH6xqPbystFfzW9hk5wqMNUj ABS2s15wuWdfR0WpEE4dNGZq tj36aTr9GOUggRAra5ThI542 WOUiSXR8sJFlaKMksMvphXBd MCLyvQDjVMEnRCF0ETJwTqC6 HYQvRsSxyONtyzAqG0pwBZvl hKFfGERwGUGucOWkiO6iltFr xqQxdWWpsGP1KBMcmA4daS02 tbKnj9ouf4negopxBeqlpXSz lRbqajQmchWoGVZpJDY3OJMG IG4egSakoC8lBrZwKwCmKImg IZ8hMSIxH0qhdBStLFJeDBLk L4cfYgBylK0prTcgJCczyuTk WJTZTXMyQIkorDhpbU1qIaWg TtTrQTccJM4vQZBrB2cjjVNo RLZrOHLpF1cjOrDywB0wuQzh MVxmczIwXHBhcn0= MICROSCOPIC q2jdvREaYYQfsALlDtXzVOFs DESCRIPTION (test KWBbt0tdTQVrdIFiVsQtEiZr code = 3371) WxXlNxfqhNAvAJLxRwJdr9jx b912yCJna8lgVDWiAoY4hBWg BQTbaJSwH435KCXkAGjcd3jt e7FaRHKauZKxp6C6LGKIyzlz rWc8iUguE70ar8H6RkcuZ1wj TZNeXTAwE8QrOL2mSRYjTqy3 IFT4WMF1QFNkAUPpU0MhXI1o VVEulOMvNTl6j6rxqSrsJCBe NVT2s5hhZJodxbBjXR0wrd5d nHx4i4dxsxLaKPTvHNIdgHRF VGGjE2HnsFsfLg6olQf7hKey ThlpJQT8Jbb1XH0yxm28izk7 oLobNGWkskhlLsT0NKodXZRa pwzqEOt2ISleGSHogCcoOGaw YXJncjcyMFxtYXJndDcyMFxt VOUwSpzcIRonVCBjQXU0YFth l804TRP4HKjwj8qga6liwIRj Zob5JFEgIaToJmbxRLrjw9Ls k1gkVUBxpt9lPFD2mVPzyBtd h9Y7jZSnQZKnfHClbeReDHZt MxN1AIrpNQ2pfe54HDMaINL3 sw5voIIphTkpasZjfIRqCMtm X5DxIQJjh375CPWaZ8NgNIKu q1E8rkOiEiFtNCOidQS5ihP2 FQFtUGt1zWBgubY7tsRtqIGf E7aecM33AfNnzNGsV9BhxX73 OmKsvGXyW3KjoV19MiHdgXOi S1QkcQ30IwPlpGUpHBBrcLWl Kw6giRHkpGNpy0CsaZWpKQjx T36po748YUIzlyAxV9qkeCZn fanwhUWxyyvcRCkivjB7JANt XHBsYWluXGYxXGZzMjBcbGFu ZzEwMzNcaGljaFxmMVxkYmNo ROSjMYmoT9dqUsPmCqMyDJOR WsUFQBL3vC7jFHIhq0ypDLub b2OmzSMtGY71ufPtQBMgQSNd vOcvvClvGP53O35kDK1cGYjt XASklNOxoFEakGNxn2Fsd5ps e5FxiVxsNSNpnZFqsgecMBso MFT2dFHvKTdur1VxxEHsuxH6 jPEgXAjaG99rxIbheDJqhA78 MGE7eA7fkNSeNRLofNtja4sc YoWBbhNwO2LqviEtuZ6esGMv xRM4pO3eGSgkLFXdWTRynmGp BSYoYWXvyUuhoQxoOG34E66t DQPiuX76tzJkhoJxjLijeJIo L5WckTCdlxHbIR1iYAWus33b XFeapoXjkH9jd6CrpM1sXf2l VJuksEumx9CaJ3AggdJzmCxa cmkgaXMgbmVnYXRpdmUuIFRo YHZyLCaaNO2wMUG7d8TnTGDg JNCyeaQyXUIrkP5oqUIhPDAt ujoiZNDvGz3vJ5EgdMdrwzPv gP19stRjZLK3qg4yr95viYBh XNSmATj8uuV8sY5jOTkjyEIo g2JvEOLzMNTbyZAcqV09nsCw KH2bxKpcS1JnuMltlEYxb3Am VzAJkDNhs6J3PE4siLHkSYMw p8IaVQreRUujFIAcmZTxprPd xQZaIlKLGKWjyF6viZvcjeKq SV31N97sMSKjyL58iiPxetQs kpRgsHi7vEWkZZSiYW7uHLWt JFWanA6vL2O9XJTewtHcD3Mu DPJjhTYoiVzzYWRtUZ5wAYAv DCMob3v4tT7nysUxwDSyk0To h6vca6LqW7xoa21oCgNsnrTm TF5aAVOkc48wu9i7sILqXOMw BU1frHEmz6TvbQsrCgGXsuRi q7IiZGAiZ0QtmWCpFFHadLuf x5rxDSsgWHKiGD5wZQCvgq6= SPECIAL STUDIES (test h7zrrNObBHGas1syECJysAIx code = 3376) KrishwMzNcZnRuYmpcdWMxIHtc kqIoYAydl4RtF2BzYjZdIHkw bnNpXGRlZmxhbmcxMDMzXGZ0 anRlQDTdYBspPRNqRZsmWh8a fZIluXkbRhTjESVaa6ynwxRG weotdMh7o3dlSWWuWuN6qLGv PGczV5rsmiHfcNGhA6DnmFTm lMs2d3biJbNkWrO0fLAeHMfv P6bsnrTieUKuHFXzZGm4cB18 JDTceT2ubLEvGTtplfJnEfY6 NPegYKJrNqB2YVLceQIkFBNq J6abOXRvGRsgCFAcTVbhhHFm AAC3cUnyw7C7aVRzpJLnxAsi VnHyBkAiEzHQj2ZuAXp3eRxy S9YgZBCtYcV2lPRpQTGtGVwl KMGbMFYgqwU9lWsaapJmr86j eHQyXGYwXGZzMjBcbGkwXHJp NLCQz4DyqZwyPGH7lSf4bUyg PeypYJG9Sbj9AC1spl13lyl8 vUjrXRPsfbaeGeB0PCifBHDz lrdjXSw0AFvdEBZahXC9RPGl nPXjX0LaZOEqKR2zmxp2XCF3 XRkuOOItZtW7IYSwnTZvEKHm uQvrYXwpj706COV8RhFwKJ7e U7Sbe7D4qZ1zhGYiKNGlbQMt YwCkRCWemk1fdIWfOPjnh3Dj SCQ9uzY3gYEhnDVvCTFbVQ77 Chevb1FaXdgay6ZxN73iaOA0 CUmyd1vxSQ5fRaA0xsDiEKbu k2wttP3dOuC8FLpqIQ7nUO2u OZSefA7knoioGZHlKgVirqnu FFEnqTuzypOwLe7ojVhyATW0 UXiwE9aiyK2xRuV7ZHjyO9vs xH5zJJa0TVlzgJQ7VNIlvY6e TM5peetts1mpSKfyQHvhHBIr vzW0ziO0CFTgmHBoH6BjnO5y YWWiWB3mbygjm2vjMTI6KUng SASyPDB8JdCuUEZgv0Mnxna0 WcTsl8RaqMRcITbfT52ic710 UAFpcsUmZ7qorLUyapoenSBz bijsJXxhtzG7TUUdNXRkGNlx XGYxXGZzMjJcbGFuZzEwMzNc aGljaFxmMVxkYmNoXGYxXGxv E0qoBkNuK2WmVKCvKpYyUDfi JHwhgVFbsVAoeUL7tR7bNH6b QREjcDYjH3JpHMDqxzKcvJAe YQH7oSOmcJQuXD4hQBislPIf a5lje3KqG6utwYtdsEJ2UY4y ICSaYETiUNjoa1XnpS7zKggu bGFpblxmMVxmczIyXGxhbmcx QUVwQVfcO1tfZhItKYDcoIkw ZSfzk1ZyFWOiYVQiNxhqwcZf VIk9hcKdSNNrcfhoUFJzuMmu kD2fMvKmXtVnGoslGC5oVWBh T4lfsHRtJSXuEFKfO0eiFxHo gP2qeOpbIKgsHpTtGjTkAxPA w778ec0pMKOfkWGcuiYWrGEf uV3tBQrjFAqfWSnbkXJwKHjx v9iuDOTxt2i3xXIxEEVsunNy w3ubGSzvdlYtAPJqpAFdtRMb KWLgd29oIPccfEzqoQxlSBOx r6WheGhlq8JyPnNxJYgyy0Bt Q98gpQBltNYkfSfkDVFbrrUo OAIfl60tj8qiADMfTuC3fQQg hKU4hZSirHNez9JguMklSVGp v0wrNIFjbl0rzypppQRtf2Bl eY6glhudYMvzpXVkntSuNIQv n0c1pPUeEZYnORTnSLszuYt3 WJHyl844fp5lkzI9oUPqVOD3 YWlsYWJsZSBhcmUgZXZhbHVh dGVkXHBsYWluXGYxXGZzMjJc bGFuZzEwMzNcaGljaFxmMVxk VqOyAHHxXJreF0thLxFhK4Sr GCBtWfWzhNGdT2mgpCRqWXCt YWluXGYxXGZzMjJcbGFuZzEw MzNcaGljaFxmMVxkYmNoXGYx EUgpK0koKaBqV6GdEOPsSvXq IFxwbGFpblxmMVxmczIyXGxh hifgGAJbOTafN8bwLrHqOFIb nBsgFMmtp9XeYAGwRXWfJfyd wlAuTLb7rwKhWVJzazlukALu blxmMVxmczIyXGxhbmcxMDMz WAwiW7kyLoKlJLIslUubOSqj b9CuHIWxNDQcSivqloStNZef zAFaw5bad0VcD1vyeLhrvAA0 LAKdK9kncJJyoCG6UTF3wX6m ITcrqaYoKASth6LwPTDcDZKl UwG0xL3lMMY1VsHWlXcxORHm YWluXGYxXGZzMjJcbGFuZzEw MzNcaGljaFxmMVxkYmNoXGYx HNooV9agGkFwO5IzYFIvIoHo yIedWXpgGLp6TkldhVNezmqy MVxmczIyXGxhbmcxMDMzXGhp Y6zzPsQbOSHyjWflWMglz8Ty XGYxXGNmMlxmczIyIHMgTWVk nXHjjPGCGS48LLQpSJWlnNsn xN2rwMTBVCMosuA6p4L3CYum XRVdRPo0DCltawCjFZFcyW2j VMGkCC6rRTy6nwRaCFBwe2Un ZY8jJOGtsXZtBTZ5HNNqe7Ax M1Wqn7VmUBXuCFZsav3xkpIa IxTLuOEzCFFbez89PVTgQC7p M8cnBDFaKQXpnxOplELbs4Mq HKItkKE3lVOmTT2ZIuTFt53k IGFuZCBEcnVnIEFkbWluaXN0 hzB8aE4oFdYUoYGoVkQYDYls coGnKYSyqz0owmCeQNHcJTJn r8QxtNPjbYFwmfPhX4Oek0Jq QSGhvm59TZojdZAbwo17GR7m J9Whx3HgfV0jUMpbLVRrm3Pb vBXlpKXoPTPte0IaF6fwrtzq ORqrwLGrxB2nJQLmDMi7WLJd v2XeBQWgf5DvMnHjemHlVUSj XNCxMPVaaL55AWW7uAcxjLzn cfFrTF7pFJOrioLjUGWiZPOj cT9gZVnaelPyKQUhzsN4c8E8 OXqeWQMwofRkYcdtNFL8bjOr qxV2rWFaY9kbrzbkITlnNPId e2ObzB8bqGNMaKVhx5CfxNCa bWLBtLEjUL8dajEaQE1jVRG8 ODggKENMSUEtODgpIGFzIHF1 PJryNrfnQCC6whEuYWFai2Dt YZztT2lfT45guVhooQv1vLZw oZkywVNxeNXfSDLcelY4k7F7 GWGtq0TzkcaaQNLsLHklOVHg XGZzMjJcbGFuZzEwMzNcaGlj aXscXasjNyHaUNKnMJspU8my FxAiIbDtGlmhXJQ8lU== Gross assessment was [facility] performed at ([facility], code = 2777) Department of Pathology, [address] [place] [address], Technical component [facility] was performed at [facility], (test code = 2778) Department of Pathology, [address] [place] [address], Professional [facility] component was [facility], performed at (test Department of Pathology, code = 2779) [address] [place] [address], [facility] [id number] 13:01:00Surgical Pathology Report Case: [id number] Authorizing Provider: Myrna Monsalve MD Collected: 05/27/2020 08:20 AM Ordering Location: [address] Received: 05/27/2020 02:50 PM SERVICE Pathologist: [...] ISLAS METAPLASIA Signing Pathologist Direct Phone Line: [phone] signed by Rosa Cisneros MD on 05/28/2020 at 1:01 PM.[id number] x2, [id number] A. Random gastric biopsy, rule out H. [...] evaluated Immunohistochemistry technical testing was performed at [facility], Pathology [...] as qualified to perform highcomplexity clinical laboratory testing.[facility], Department of Pathology, [address] [place] [address], [facility], [facility] of[facility], [address] [place] [address], [facility], [address] [place] [address], XET W/PLT COUNT & AUTO [id number] 06:41:00 Test Item Value Reference Range Interpretation [...] CONCENTRATION Decreased (CELLAVISION)(BEAKER) (test code = 3438) [employer] Analyst ID - Kaylee Martines comments: Slide comments:COMPREHENSIVE METABOLIC [id number] 05:00:00 Test Item Value Reference Range Interpretation [...] S NOT APPLICABLE FOR DIALYSIS PATIEN TS. [employer] Analyst ID - BONILLA ASIC METABOLIC [id number] 05:00:00 Test Item Value Reference Range Interpretation [...] S NOT APPLICABLE FOR DIALYSIS PATIEN TS. [id number] 04:45:00 Test Item Value Reference Range Interpretation Comments MAGNESIUM (BEAKER) (test code = 1.9 mg/dL 1.6-2.6 627) [employer] Analyst ID - BONILLA EPATIC FUNCTION [id number] 04:45:00 Test Item Value Reference Range Interpretation [...] (test code = 9 U/L 6-55 347) Ecommerce Analyst EVELYNE CRYSTAL MDLA-dlliy6527-16-08 04:33:00 Test Item Value Reference Range Interpretation Comments D-Dimer, Quant (test code 3.35 <0.50 MG/L FEU H = 51652-9) FANTA (test code = FANTA) Intended Use: [...] range. Lab Interpretation (test Abnormal code = 11631-4) [id number] 04:33:00 Test Item Value Reference Range Interpretation [...] exclusion of thrombosis is within 95-100% range. PT/[id number] 04:31:00 Test Item Value Reference Range Interpretation [...] detected HCV RNA not (test code = 23896-3) detected FANTA (test code = FANTA) This test uses a Real-Time Polymerase Chain Reaction (RT-PCR) methodology and was performed using BAIRON Ampliprep/BAIRON TaqMan HCV test kit version 2.0 ([employer]). Reportable range for this assay is 15 - 100,000,000 IU per mL (1.18 - 8.00 Log IU/mL). Lab Interpretation Normal (test code = 03732-5) [facility]HEPAT[facility]IS [facility] PCR, [id number] 22:57:00 Test Item Value Reference Range Interpretation Comments HCV RESULT COMPONENT HCV RNA not detected HCV RNA not detected (BEAKER) (test code = 2699) This test uses a Real-Time Polymerase Chain Reaction (RT-PCR) methodology and was performed using BAIR[employer] Ampliprep/BAIRON TaqMan HCV test kit version 2.0 ([employer]).Reportable range for this assay is 15 - 100,000,000 IU per mL (1.18 - 8.00 Log IU/mL).Manual [id number] 12:07:00 Test Item Value Reference Range Interpretation [...] few Lab Interpretation (test code = Abnormal 73600-9) [facility] W/PLT COUNT & AUTO [id number] 12:07:00 Test Item Value Reference Range Interpretation [...] code = 1+ few 477) BASIC METABOLIC [id number] 04:27:00 Test Item Value Reference Range Interpretation [...] S NOT APPLICABLE FOR DIALYSIS PATIEN TS. Ecommerce Analyst ID - BONILLA [id number] 04:25:00 Test Item Value Reference Range Interpretation Comments MAGNESIUM (BEAKER) (test code = 2.0 mg/dL 1.6-2.6 627) Ecommerce Analyst ID - BONILLA MHEPATIC FUNCTION [id number] 04:25:00 Test Item Value Reference Range Interpretation [...] (test code = 7 U/L 6-55 347) Ecommerce Analyst ID - BONILLA MPT/[id number] 04:09:00 Test Item Value Reference Range Interpretation [...] Maddie Leon code = 2849) Bebeto Dsouza [facility]PER[facility] - PATHOLOGIST REVIEW 2020-05-26 14:31:00 Test Item Value Reference Range Interpretation Comments PERIPHERAL SMR Macrocytic anemia, REVIEW (BEAKER) 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 WBCs with mild left shift, including occasional myeloid precursors, no blasts seen. Few hypersegmented neutrophils. Thrombocytopenia with unremarkable morphology. VUKK-MATNPBVVAVB-281 Maddie Leon 2 (BEAKER) (test Bebeto Dsouza code = 2849) [id number] 13:50:00 Test Item Value Reference Range Interpretation [...] within 95-100% range.CBC W/PLT COUNT & AUTO [id number] 07:48:00 Test Item Value Reference Range Interpretation [...] CONCENTRATION Decreased (CELLAVISION)(BEAKER) (test code = 3438) Ecommerce Analyst ID - Chris Mtz comments: Slide comments:COMPREHENSIVE METABOLIC [id number] 05:43:00 Test Item Value Reference Range Interpretation [...] S NOT APPLICABLE FOR DIALYSIS PATIEN TS. Ecommerce Analyst ID - EDASIBASIC METABOLIC [id number] 05:38:00 Test Item Value Reference Range Interpretation [...] S NOT APPLICABLE FOR DIALYSIS PATIEN TS. [id number] 05:34:00 Test Item Value Reference Range Interpretation Comments PHOSPHORUS (BEAKER) (test code = 7.6 mg/dL 2.3-4.7 H 604) Ecommerce Analyst ID - PPOTFHYYVXATPT7463-75-04 05:34:00 Test Item Value Reference Range Interpretation Comments MAGNESIUM (BEAKER) (test code = 2.0 mg/dL 1.6-2.6 627) Ecommerce Analyst ID - EDASIHEPATIC FUNCTION [id number] 05:34:00 Test Item Value Reference Range Interpretation [...] (test code = 6 U/L 6-55 347) Ecommerce Analyst ID - EDASIPT/RMBY9012-48-03 04:50:00 Test Item Value Reference Range Interpretation [...] is2.5-3.5 for patients wiht mechanical heart valves.CALCIUM, [id number] 03:59:00 Test Item Value Reference Range Interpretation Comments CALCIUM IONIZED (BEAKER) (test 1.08 mmol/L 1.12-1.27 L code = 698) PH, BLOOD (BEAKER) (test code = 7.49 1810) TSH/Free T4 If Lyrrfuhcx8216-89-26 20:19:00 Test Item Value Reference Range Interpretation Comments TSH (test code = 3.581 0.350- 4.940 uIU/mL 38399-7) FANTA (test code = FANTA) Ecommerce Analyst ID - ABBY F Lab Interpretation (test Normal code = 12283-0) [facility] HospitalTSH/FREE T4 IF [id number] 20:19:00 Test Item Value Reference Range Interpretation Comments THYROID STIMULATING HORMONE 3.581 uIU/mL 0.350-4.940 (BEAKER) (test code = 772) Ecommerce Analyst ID - ABBY FHEMOGLOBIN AND [id number] 19:42:00 Test Item Value Reference Range Interpretation Comments HEMOGLOBIN (BEAKER) (test code = 9.0 GM/DL 13.7-17.5 L 410) HEMATOCRIT (BEAKER) (test code = 26.7 % 40.1-51.0 L 411) Ecommerce Analyst ID - 6000CBC W/PLT COUNT & AUTO [id number] 14:10:00 Test Item Value Reference Range Interpretation [...] H PERCENT (BEAKER) (test code = 2801) [id number] 12:23:00 Test Item Value Reference Range Interpretation [...] Range Interpretation Comments LDH (test code = 4312-0) 341 U/L 125-220 H FANTA (test code = FANTA) Ecommerce Analyst ID Joseph NORRIS F Lab Interpretation (test Abnormal code = 81019-3) [facility] HospitalLACTATE DEHYDROGENASE (LDH)2020-05-25 12:15:00 Test Item Value Reference Range Interpretation Comments LACTATE DEHYDROGENASE (BEAKER) (test 341 U/L 125-220 H code = 635) Ecommerce Analyst ID Joseph NORRIS FProthrombin time/[id number] 12:13:00 Test Item Value Reference Range Interpretation [...] valves. Lab Interpretation Abnormal (test code = 52849-4) [facility] HospitalPROTHROMBIN TIME/[id number] 12:13:00 Test Item Value Reference Range Interpretation [...] for patients wiht mechanical heart valves.HEMOGLOBIN AND [id number] 12:01:00 Test Item Value Reference Range Interpretation Comments HEMOGLOBIN (BEAKER) (test code = 9.0 GM/DL 13.7-17.5 L 410) HEMATOCRIT (BEAKER) (test code = 27.0 % 40.1-51.0 L 411) Ecommerce Analyst ID - 4808Ktvbsadmobp9085-92-93 11:50:00 Test Item Value Reference Range Interpretation Comments Haptoglobin (test code = 172 mg/dL 14258 4542-7) FANTA (test code = FANTA) Ecommerce Analyst ID - ABBY Crump Lab Interpretation (test Normal code = 94916-7) [facility] HospitalHAPTOGLOBIN2020-10-05 11:50:00 Test Item Value Reference Range Interpretation Comments HAPTOGLOBIN (BEAKER) (test code = 172 mg/dL 258 366) Ecommerce Analyst ID - ABBY F2D Echo W/Doppler(CW/PW/Color)2020-05-25 10:53:54 Ejection FractionSLEH ECHO HEARTLAB MKCKESSON CPACSInterface, External Ris In - 05/25/2020 10:54 AM CDTTransthoracic Echocardiography Report (TTE) Demographics Patient Name THIERRY PADILLA Date ofStudy 05/24/2020 KYLIE Gender Male Visit Number [id number] Race Unknown Room Number 7217 Number Date of 1965 Referring Physician Age55 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 Signed: Roya Verde MDRmari Verified Date/Time: 05/25/2020 08:58:57 [facility] 08[facility]16:00 Test Item Value Reference Range Interpretation Comments Ferritin (test code = 34633.32 ng/mL 5-275 H 2276-4) FANTA (test code = FANTA) Ecommerce Analyst ID - EDASI Lab Interpretation (test Abnormal code = 53215-2) [facility] HospitalFERRITIN2020-10-05 08:16:00 Test Item Value Reference Range Interpretation Comments FERRITIN (BEAKER) (test code = 27926.32 ng/mL 5.00-275.00 H 361) Ecommerce Analyst ID - EDASICBC W/PLT COUNT & AUTO [id number] 08:02:00 Test Item Value Reference Range Interpretation [...] CONCENTRATION Decreased (CELLAVISION)(BEAKER) (test code = 3438) Ecommerce Analyst ID - Jonna Pascual comments: Slide comments:RAD, CHEST, 1 VIEW, NON [id number] 04:42:00Reason for exam:->pulmonary edemaShould this be performed [...] 04:42:11 XR chest 1 view portable / [id number] 04:42:00 Interface, External Ris In - 05/25/2020 4:44 AM CDTFINAL REPORT RAD, CHEST, 1 VIEW, NON DEPT INDICATION: pulmonary edema COMPARISON: Prior day's exam FINDINGS: Portable frontal view of the chest. IMPRESSION: Support Lines: Stable. Lungs and pleura: Unchanged venous congestion and interstitial opacities. No consolidation or effusion. No pneumothorax.Heart and mediastinum: Stable contours.Additional findings: None. Signed: Sally Renae Verified Date/Time: 05/25/2020 04:42:11 [facility] HospitalIron, TIBC, % sat. (without ferritin)2020-05-25 04:31:00 Test Item Value Reference Range Interpretation Comments Iron (test code = 2498-4) 118.0 ug/dL 40-160 TIBC (test code = 2500-7) 170 ug/dL 250-450 L Iron % Saturation (test 69 % 20-55 H code = 2502-3) FANTA (test code = FANTA) Ecommerce Analyst ID - EDASI Lab Interpretation (test Abnormal code = 23028-7) [facility] HospitalIRON, TIBC, % SAT. (WITHOUT FERRITIN)2020-05-25 04:31:00 Test Item Value Reference Range Interpretation Comments IRON (BEAKER) (test code = 547) 118.0 ug/dL 40.0-160.0 TOTAL IRON BINDING CAPACITY 170 ug/dL 250-450 L (BEAKER) (test code = 769) IRON % SATURATION (2) (BEAKER) 69 % 20-55 H (test code = 2590) Ecommerce Analyst ID - EDASITroponin [id number] 04:23:00 Test Item Value Reference Range Interpretation Comments Troponin I (test code = 0.46 ng/mL 0-0.03 97424-4) FANTA (test code = FANTA) Troponin I [...] DB Lab Interpretation (test Abnormal code = 49301-8) [facility] HospitalTROPONIN [id number] 04:23:00 Test Item Value Reference Range Interpretation [...] failure, acidosis, acute neurological disease, and persistent tachyarrhythmia.Ecommerce Analyst ID - [id number] 04:20:00 Test Item Value Reference Range Interpretation Comments PHOSPHORUS (BEAKER) (test code = 10.5 mg/dL 2.3-4.7 HH 604) Ecommerce Analyst ID - DBCOMPREHENSIVE METABOLIC SLYJF4300-03-05 04:19:00 Test Item Value Reference Range Interpretation [...] S NOT APPLICABLE FOR DIALYSIS PATIEN TS. Ecommerce Analyst ID - HEODFZXMSRF9524-09-07 04:11:00 Test Item Value Reference Range Interpretation Comments MAGNESIUM (BEAKER) (test code = 2.0 mg/dL 1.6-2.6 627) Ecommerce Analyst ID - DBHEPATIC FUNCTION [id number] 04:11:00 Test Item Value Reference Range Interpretation [...] (test code = 9 U/L 6-55 347) Ecommerce Analyst ID - DBPT/BXGY9153-07-10 04:11:00 Test Item Value Reference Range Interpretation [...] is2.5-3.5 for patients wiht mechanical heart valves.Reticulocyte kcqfd1735-59-39 04:06:00 Test Item Value Reference Range Interpretation Comments % Retic (test code = 1.5 % 0.5-1.8 48843-4) FANTA (test code = FANTA) Ecommerce Analyst ID - 6000 Lab Interpretation (test Normal code = 04588-1) [facility] HospitalRETICULOCYTE [id number] 04:06:00 Test Item Value Reference Range Interpretation Comments RETICULOCYTE COUNT PCT (BEAKER) (test 1.5 % 0.5-1.8 code = 575) Ecommerce Analyst ID - 6000Lactic acid, xkgkbm3340-90-96 04:05:00 Test Item Value Reference Range Interpretation Comments Lactate, Venous (test code = 0.42 mmol/L 0.5-2.2 L 2872) FANTA (test code = FANTA) Ecommerce Analyst ID - DB Lab Interpretation (test Abnormal code = 98932-3) [facility] HospitalLACTIC ACID, [id number] 04:05:00 Test Item Value Reference Range Interpretation Comments LACTATE BLOOD VENOUS (2) (BEAKER) 0.42 mmol/L 0.50-2.20 L (test code = 2872) Ecommerce Analyst ID - DBCALCIUM, [id number] 04:03:00 Test Item Value Reference Range Interpretation Comments CALCIUM IONIZED (BEAKER) (test 1.02 mmol/L 1.12-1.27 L code = 698) PH, BLOOD (BEAKER) (test code = 7.44 1810) Hepatitis B surface [id number] 21:41:00 Test Item Value Reference Range Interpretation Comments HBsAg Screen (test code Nonreactive Nonreactive = 5195-3) FANTA (test code = FANTA) Specimen is considered negative for HBsAg. Lab Interpretation (test Normal code = 84775-2) [facility] HospitalHEPATITIS B SURFACE [id number] 21:41:00 Test Item Value Reference Range Interpretation Comments HEPATITIS B SURFACE ANTIGEN (2) Nonreactive Nonreactive (BEAKER) (test code = 2585) Specimen is considered negative for HBsAg.HEMOGLOBIN AND [id number] 20:59:00 Test Item Value Reference Range Interpretation Comments HEMOGLOBIN (BEAKER) (test code = 6.9 GM/DL 13.7-17.5 L 410) HEMATOCRIT (BEAKER) (test code = 20.8 % 40.1-51.0 L 411) Ecommerce Analyst ID - 6000TROPONIN [id number] 18:22:00 Test Item Value Reference Range Interpretation [...] failure, acidosis, acute neurological disease, and persistent tachyarrhythmia.Ecommerce Analyst ID - CECILIAGB-type Natriuretic Factor (BNP)2020-05-24 18:01:00 Test Item Value Reference Range Interpretation Comments BNP (test code = 86334-9) 202 pg/mL 0-100 H FANTA (test code = FANTA) Ecommerce Analyst ID - CECILIAG Lab Interpretation (test Abnormal code = 26909-9) [facility] HospitalB-TYPE NATRIURETIC FACTOR (BNP)2020-05-24 18:01:00 Test Item Value Reference Range Interpretation Comments B-TYPE NATRIURETIC PEPTIDE (BEAKER) 202 pg/mL 0-100 H (test code = 700) Ecommerce Analyst EVELYNE LUAIV-1 Antigen with HIV-1/2 Pvvmkvjw8759-46-22 13:43:00 Test Item Value Reference Range Interpretation Comments HIV-1 Antigen with HIV 1&2 Nonreactive Nonreactive Antibody (test code = 42791-7) Lab Interpretation (test code = Normal 66623-3) [facility]HIV-[facility] ANTIGEN WITH HIV-1/2 [id number] 13:43:00 Test Item Value Reference Range Interpretation Comments HIV-1 ANTIGEN WITH HIV 1\\T\\2 Nonreactive Nonreactive ANTIBODY (2) (BEAKER) (test code = 2586) TROPONIN [id number] 13:42:00 Test Item Value Reference Range Interpretation Comments TROPONIN I (BEAKER) (test code = 0.50 ng/mL 0.00-0.03 397) Troponin I (TnI) levels [...] failure, acidosis, acute neurological disease, and persistent tachyarrhythmia.Ecommerce Analyst ID - CHERYLASIC METABOLIC [id number] 13:37:00 Test Item Value Reference Range Interpretation [...] S NOT APPLICABLE FOR DIALYSIS PATIEN TS. Ecommerce Analyst ID - H[id number] 13:10:00 Test Item Value Reference Range Interpretation Comments PHOSPHORUS (BEAKER) (test code = 6.3 mg/dL 2.3-4.7 H 604) Ecommerce Analyst ID - ROSIANGHEMOGLOBIN AND [id number] 12:38:00 Test Item Value Reference Range Interpretation Comments HEMOGLOBIN (BEAKER) (test code = 7.7 GM/DL 13.7-17.5 L 410) HEMATOCRIT (BEAKER) (test code = 22.7 % 40.1-51.0 L 411) Ecommerce Analyst ID - 6000Hemoglobin [id number] 09:17:00 Test Item Value Reference Range Interpretation Comments Hemoglobin A1C (test code = 4548-4) 5.8 % 4.3-6.1 Lab Interpretation (test code = Normal 10562-2) [facility] HospitalHEMOGLOBIN [id number] 09:17:00 Test Item Value Reference Range Interpretation Comments HEMOGLOBIN A1C (BEAKER) (test code = 5.8 % 4.3-6.1 368) TROPONIN [id number] 08:48:00 Test Item Value Reference Range Interpretation [...] failure, acidosis, acute neurological disease, and persistent tachyarrhythmia.Ecommerce Analyst ID - ROSIANGBASIC METABOLIC [id number] 08:33:00 Test Item Value Reference Range Interpretation [...] S NOT APPLICABLE FOR DIALYSIS PATIEN TS. Ecommerce Analyst ID - ROSIANGHEMOGLOBIN AND [id number] 08:12:00 Test Item Value Reference Range Interpretation Comments HEMOGLOBIN (BEAKER) (test code = 8.1 GM/DL 13.7-17.5 L 410) HEMATOCRIT (BEAKER) (test code = 23.5 % 40.1-51.0 L 411) Ecommerce Analyst ID - 6000Vitamin B12 and Exyhxq0448-45-12 05:56:00 Test Item Value Reference Range Interpretation Comments Vitamin B12 (test code = 237 pg/mL 029-515 1090-9) Folate (test code = 4.00 ng/mL >=7.00 L 2284-8) FANTA (test code = FANTA) Ecommerce Analyst ID - EDASI Lab Interpretation (test Abnormal code = 62804-5) [facility] HospitalVITAMIN B12 AND [id number] 05:56:00 Test Item Value Reference Range Interpretation Comments VITAMIN B12 (BEAKER) (test code = 237 pg/mL 213-816 774) FOLATE (BEAKER) (test code = 362) 4.00 ng/mL >=7.00 L Ecommerce Analyst ID - EDASIBASIC METABOLIC [id number] 04:53:00 Test Item Value Reference Range Interpretation [...] S NOT APPLICABLE FOR DIALYSIS PATIEN TS. Ecommerce Analyst ID - [id number] 04:52:00 Test Item Value Reference Range Interpretation Comments PHOSPHORUS (BEAKER) (test code = 13.6 mg/dL 2.3-4.7 HH 604) Ecommerce Analyst ID - EDASICALCIUM, [id number] 04:49:00 Test Item Value Reference Range Interpretation Comments CALCIUM IONIZED (BEAKER) (test 0.96 mmol/L 1.12-1.27 L code = 698) PH, BLOOD (BEAKER) (test code = 7.23 1810) [id number] 04:42:00 Test Item Value Reference Range Interpretation Comments MAGNESIUM (BEAKER) (test code = 2.6 mg/dL 1.6-2.6 627) Ecommerce Analyst ID - EDASIHEPATIC FUNCTION [id number] 04:42:00 Test Item Value Reference Range Interpretation [...] (test code = 12 U/L 6-55 347) Ecommerce Analyst ID - EDASIPT/[id number] 04:41:00 Test Item Value Reference Range Interpretation [...] mechanical heart valves.CBC W/PLT COUNT & AUTO [id number] 04:37:00 Test Item Value Reference Range Interpretation [...] (BEAKER) (test code = 2803) LACTIC ACID, [id number] 04:29:00 Test Item Value Reference Range Interpretation Comments LACTATE BLOOD VENOUS (2) (BEAKER) 0.34 mmol/L 0.50-2.20 L (test code = 2872) Ecommerce Analyst ID - YEFRI, [id number] 04:16:00 Test Item Value Reference Range Interpretation Comments ABO Grouping (test code = 2588) O Rh Factor (test code = 2589) [facility]ptomatic ONLY[facility]2020-05-24 04:13:00 Test Item Value Reference Range Interpretation Comments SARS-COV2/RT-PCR Negative Not Detected, (test code = Negative, See 49621-3) external report for linked test SARS-COV-2 [facility] PERFORMING LAB (test code = 50630-6) FANTA (test code = Negative results do [...] of the Act. Fact Sheet for Healthcare Providers:https://www.[employer]/Documents/Xper t%20Xpress%20SARS%20CoV- 2/Fact%20Sheets/254-5452 %60ZSKL-SCG-0%20HEALTHCA RE%20PROVIDERS%20FACT%20 SHEET.pdf Fact Sheet for Healthcare Patients:https://www.[employer]/Documents/Xpert %20Xpress%20SARS%20CoV-2 /Fact%20Sheets/302-8831% 97ZOQY-YGU-2%20PATIENT%2 0FACT%20SHEET.pdf Performing Laboratory:[facility] [place] [address] [facility] ([facility])2020-05-24 04:13:00 Test Item Value Reference Range Interpretation Comments SARS-COV2/RT-PCR (test code Negative Not Detected, Negative, = 5055289) See external report for linked test SARS-COV-2 PERFORMING LAB [facility] (test code = 9051440) Negative results do not preclude SARS-CoV-2 infection [...] of the Act.Fact Sheet for Healthcare Pro viders:https://www.[employer]/Documents/Xpert%20Xpress%20SARS%20CoV-2/Fact%20Sh eets/3023802%81ADSA-NLE-5%20HEALTHCARE%20PROVIDERS%20FACT%20SHEET.pdfFact Sheet for Healthcare Patients:https://www.ffk environment id.[employer]/Documents/Xpert%20Xpress%20SARS%20CoV-2/Fact%20Sheets/3023801%20SARS-COV -2%20PATIENT%20FACT%20SHEET.pdfPerforming Laboratory:[facility], [place] [address]YB/[id number] 03:29:00 Test Item Value Reference Range Interpretation [...] is2.5-3.5 for patients wiht mechanical heart valves.TROPONIN [id number] 02:23:00 Test Item Value Reference Range Interpretation [...] failure, acidosis, acute neurological disease, and persistent tachyarrhythmia.Ecommerce Analyst EVELYNE - DEE DEE WBASIC METABOLIC [id number] 02:22:00 Test Item Value Reference Range Interpretation [...] S NOT APPLICABLE FOR DIALYSIS PATIEN TS. Ecommerce Analyst ID Joseph FUNEZ [id number] 02:21:00 Test Item Value Reference Range Interpretation Comments PHOSPHORUS (BEAKER) (test code = 14.1 mg/dL 2.3-4.7 HH 604) Ecommerce Analyst ID - DEE DEE [id number] 02:16:00 Test Item Value Reference Range Interpretation Comments MAGNESIUM (BEAKER) (test code = 2.6 mg/dL 1.6-2.6 627) Ecommerce Analyst ID - DEE DEE WHEPATIC FUNCTION [id number] 02:16:00 Test Item Value Reference Range Interpretation [...] (test code = 10 U/L 6-55 347) Ecommerce Analyst ID Joseph FUNEZ WB-TYPE NATRIURETIC FACTOR (BNP)2020-05-24 02:12:00 Test Item Value Reference Range Interpretation Comments B-TYPE NATRIURETIC PEPTIDE (BEAKER) 459 pg/mL 0-100 H (test code = 700) Ecommerce Analyst ID Joseph FUNEZ WCBC W/PLT COUNT & AUTO [id number] 02:11:00 Test Item Value Reference Range Interpretation [...] (BEAKER) (test code = 2801) LACTIC ACID, [id number] 02:03:00 Test Item Value Reference Range Interpretation Comments LACTATE BLOOD VENOUS (2) (BEAKER) 0.68 mmol/L 0.50-2.20 (test code = 2872) Ecommerce Analyst ID - DEE DEE WSpecimen slightly lipemicRAD, [...] MDReport Verified Date/Time: 05/24/2020 01:55:13 Blood gas, [id number] 01:37:00 Test Item Value Reference Range Interpretation Comments pH, Duc (test code = 2746-6) 7.27 7.32-7.42 L pCO2, Duc (test code = 755) 26 41- 51 mmHg L pO2, Duc (test code = 2705-2) 63 25- 40 mmHg H O2 Sat, Duc (test code = 2711-0) 89.7 % 40-70 H HCO3, Duc (test code = 71293-5) 12 mmol/L 21-29 L Base Excess, Duc (test code = -14.0 mmol/L -2-3 L 1927-3) Patient Temperature (test code = 37.0 C 8310-5) FIO2 (test code = 1819) 100 % Lab Interpretation (test code = Abnormal 05657-2) [facility] HospitalBLOOD GAS, [id number] 01:37:00 Test Item Value Reference Range Interpretation [...] (BEAKER) (test code = 1819) 100.0 % ZKX-[id number] 00:00:00Ordered by an unspecified provider.[facility] ([facility])2020-02-23 11:58:00 Test Item Value Reference Range Interpretation Comments SARS-COV2/RT-PCR (test code = Negative Not Detected, Negative 6353564) SARS-COV-2 PERFORMING LAB [facility] (test code = 3248786) Negative result for this test determines that [...] 564(g) of the Act.Fact Sheet for Healthcare Providers:https://www.imoji/sites/default/files/product/documents/Fact_Shee t_JF_Cophoenvt_Mtsa_VDQY-YdX-8.pdfFact Sheet for Healthcare Patients:https://www.[employer]ji/sites/default/files/product/ documents/Qdda_Gkrzu_Aokhopyl_Pgaj_DJMG-GxB-9.pdfPerforming Laboratory:[facility] [place] [address]
[2020-08-26 13:08] LABS: Absolute Lymphocytes (CBC) 2.1 K/uL (0.7-4.9); Hematocrit 21.8 % (39.6-49.0); Lymphocytes % 18.1 % (15.3-44.8); MPV 7.9 fL (7.6-11.3); Protime INR 1.05
--- NOTE | 2020-08-26 13:33 | RAD REPORT ---
EXAM DESCRIPTION: RAD - Chest Single View - 08/26/2020 1:24 pm CLINICAL HISTORY: DYSPNEA Chest pain. COMPARISON: Chest Single View dated 07/24/2020; Chest Single View dated 07/20/2020; Chest Single View dated 07/15/2020; Chest Single View dated 07/11/2020 FINDINGS: Portable technique limits examination quality. The lungs are grossly clear. The heart is normal in size. Right-sided dialysis catheter has its tip i n the SVC. IMPRESSION: No acute intrathoracic process suspected.
[2020-08-26 13:48] LABS: Bilirubin Direct 0.2 mg/dL (0-0.2); Bilirubin Total 0.5 mg/dL (0.2-1.0); Magnesium 2.8 mg/dL (1.8-2.4); Protein, Total 7.6 g/dL (6.4-8.2); Troponin (Emerg Dept Use Only) 0.74 ng/mL (0.0-0.045)
[2020-08-26 13:51] LABS: Potassium 8.3 mmol/L (3.5-5.1)
[2020-08-26 14:08] LABS: Blood Morphology Comment NOTED (NOT SEEN); Hypochromasia 1+; Platelet Estimate DECR; White Blood Cell Scan OK (OK)
--- NOTE | 2020-08-26 14:18 | EDPHYS ---
Physician Documentation [facility] Name: Cr Orellana Age: 55 yrs Sex: Male : 1965 Arrival Date: 08/26/2020 Time: 11:24 Bed 20 Private MD: ED Physician Sebastian Rivera HPI: 08/26 14:20 This 55 yrs old Male presents to ER via EMS with complaints of General jr8 Weakness. 14:20 Patient stated that he has had a hard time walking and has felt very fatigued and weak jr8 over the past several weeks. Stated that because of this he has missed several dialysis sessions. Tried to go today but was too weak and fatigued at dialysis center that they called EMS to have us further evaluate him . Severity of symptoms: At their worst the symptoms were moderate in the emergency department the symptoms are unchanged. The patient has not experienced similar symptoms in the past. The patient has not recently seen a physician. Historical: - Allergies: 11:32 No Known Allergies; ll1 - PMHx: 11:32 DIALYSIS MWF; Hypertension; seasonal allergies; ll1 - Immunization history:: Adult Immunizations up to date. - Social history:: Smoking status: Patient denies any tobacco usage or history of. ROS: 14:25 Eyes: Negative for injury, pain, redness, and discharge, ENT: Negative for injury, jr8 pain, and discharge, Neck: Negative for injury, pain, and swelling, Cardiovascular: Negative for chest pain, palpitations, and edema, Respiratory: Negative for shortness of breath, cough, wheezing, and pleuritic chest pain, Abdomen/GI: Negative for abdominal pain, nausea, vomiting, diarrhea, and constipation, Back: Negative for injury and pain, MS/Extremity: Negative for injury and deformity, Skin: Negative for injury, rash, and discoloration. 14:25 Constitutional: Positive for fatigue. 14:25 Neuro: Positive for dizziness, weakness. Exam: 12:16 ECG was reviewed by the Attending Physician. kdr 14:25 Eyes: Pupils equal round and reactive to light, extra-ocular motions intact. Lids and jr8 lashes normal. Conjunctiva and sclera are non-icteric and not injected. Cornea within normal limits. Periorbital areas with no swelling, redness, or edema. ENT: Nares patent. No nasal discharge, no septal abnormalities noted. Tympanic membranes are normal and external auditory canals are clear. Oropharynx with no redness, swelling, or masses, exudates, or evidence of obstruction, uvula midline. Mucous membranes moist. Neck: Trachea midline, no thyromegaly or masses palpated, and no cervical lymphadenopathy. Supple, full range of motion without nuchal rigidity, or vertebral point tenderness. No Meningismus. Cardiovascular: Regular rate and rhythm with a normal S1 and S2. No gallops, murmurs, or rubs. Normal PMI, no JVD. No pulse deficits. Respiratory: Lungs have equal breath sounds bilaterally, clear to auscultation and percussion. No rales, rhonchi or wheezes noted. No increased work of breathing, no retractions or nasal flaring. Abdomen/GI: Soft, non-tender, with normal bowel sounds. No distension or tympany. No guarding or rebound. No evidence of tenderness throughout. Skin: Warm, dry with normal turgor. Normal color with no rashes, no lesions, and no evidence of cellulitis. MS/ Extremity: Pulses equal, no cyanosis. Neurovascular intact. Full, normal range of motion. Lower extremities atrophied 14:25 Neuro: Orientation: to person, place \T\ time. Mentation: is normal, Memory: is normal, Cranial nerves: CN I not tested, CN II- XII are normal as tested, extraocular movements are intact, Speech is clear and appropriate. Tongue strength is normal, Motor: moves all fours, Sensation: no obvious gross deficits. Vital Signs: 11:38 BP 180 / 91; Pulse 88; Resp 18; Temp 97.7; Pulse Ox 100% on R/A; Pain 9/10; ll1 12:10 BP 157 / 95; Pulse 75; Resp 18; Pulse Ox 100% on R/A; vg1 13:00 BP 167 / 106; Pulse 86; Resp 22; Pulse Ox 100% on R/A; vg1 13:43 BP 184 / 104; Pulse 85; Resp 20; Pulse Ox 100% on R/A; vg1 MDM: 12:35 Patient medically screened. [facility] 14:15 Data reviewed: vital signs, nurses notes, lab test result(s), EKG, radiologic studies, [facility] CT scan, plain films. Data interpreted: Pulse oximetry: on room air is 100 %. Interpretation: normal. Counseling: I had a detailed discussion with the patient and/or guardian regarding: the historical points, exam findings, and any diagnostic results supporting the discharge/admit diagnosis, lab results, radiology results, the need for further work-up and treatment in the hospital. 08/26 12:36 Order name: Basic Metabolic Panel; Complete Time: 13:55 jr8 08/26 12:36 Order name: CBC with Diff; Complete Time: 14:12 jr8 08/26 12:36 Order name: LFT's; Complete Time: 13:55 jr8 08/26 12:36 Order name: Magnesium; Complete Time: 13:55 jr8 08/26 12:36 Order name: NT PRO-BNP; Complete Time: 13:55 jr8 08/26 12:36 Order name: PT-INR; Complete Time: 13:21 jr8 08/26 12:36 Order name: Troponin (emerg Dept Use Only); Complete Time: 13:55 jr8 08/26 13:41 Order name: CBC Smear Scan; Complete Time: 14:12 EDMS 08/26 14:25 Order name: Hep B Core Ab, Tot/reflex IgM EDMS 08/26 14:25 Order name: Hep B Surface AG w/ Confirm EDMS 08/26 14:25 Order name: Hepatitis B Surface Ab,Quant EDMS 08/26 15:07 Order name: Hematocrit; Complete Time: 16:54 EDMS 08/26 15:07 Order name: Hemoglobin; Complete Time: 16:54 EDMS 08/26 15:07 Order name: Iron EDMS 08/26 12:36 Order name: XRAY Chest (1 view); Complete Time: 13:55 jr8 08/26 15:07 Order name: Transferrin Sat/Iron Binding; Complete Time: 17:50 EDMS 08/26 15:07 Order name: Vitamin B12 Level; Complete Time: 17:50 EDMS 08/26 15:07 Order name: CORONAVIRUS EDMS 08/26 16:57 Order name: SARS-COV-2 RT PCR; Complete Time: 16:59 EDMS 08/26 18:26 Order name: Ferritin; Complete Time: 18:53 EDMS 08/26 20:39 Order name: BMP sg 08/26 21:54 Order name: Basic Metabolic Panel; Complete Time: 21:56 EDMS 08/27 05:45 Order name: Basic Metabolic Panel; Complete Time: 09:12 EDMS 08/27 05:45 Order name: Phosphorus; Complete Time: 09:12 EDMS 08/27 05:45 Order name: Magnesium; Complete Time: 09:12 EDMS 08/27 06:09 Order name: CBC with Automated Diff; Complete Time: 11:24 EDMS 08/27 09:58 Order name: Type and Screen EDMS 08/27 11:01 Order name: Manual Differential; Complete Time: 11:24 EDMS 08/27 22:28 Order name: Hemoglobin; Complete Time: 16:41 EDMS 08/27 22:28 Order name: Hematocrit; Complete Time: 16:41 EDMS 08/26 12:36 Order name: EKG; Complete Time: 12:37 08/26 12:36 Order name: Cardiac monitoring; Complete Time: 12:46 08/26 12:36 Order name: EKG - Nurse/Tech; Complete Time: 12:46 08/26 12:36 Order name: IV Saline Lock; Complete Time: 12:46 08/26 12:36 Order name: Labs collected and sent; Complete Time: 12:46 08/26 12:36 Order name: O2 Per Protocol; Complete Time: 12:46 08/26 12:36 Order name: O2 Sat Monitoring; Complete Time: 12:46 08/26 14:15 Order name: CT Head Brain wo Cont; Complete Time: 15:02 08/26 16:43 Order name: Diet Renal: please deliver to dialysis on the 2nd floor; Complete Time: bd 16:44 EC:16 Rate is 74 beats/min. Rhythm is regular, Normal Sinus Rhythm with No ectopy. QRS [place] kdr is Normal. SD interval is normal. QRS interval is normal. QT interval is normal. Clinical impression: NSR w/ Non-specific ST/T Changes. Administered Medications: 14:43 Drug: Lasix 60 mg Route: IVP; Site: left wrist; 08/27 00:13 Follow up: Response: No adverse reaction 08/26 14:45 Drug: D50W 50 ml Route: IVP; Site: right wrist; vg1 08/27 00:13 Follow up: Response: No adverse reaction 08/26 14:55 Drug: Insulin Regular Human 10 units {Co-Signature: iw (Nereyda Delgadillo RN).} Route: vg1 IVP; Site: right wrist; 08/27 00:13 Follow up: Response: No adverse reaction vg1 08/26 15:00 Drug: Kayexalate 45 grams Route: PO; vg1 08/27 00:13 Follow up: Response: No adverse reaction vg1 08/26 15:00 Drug: Albuterol 2.5 mg Route: Inhalation; vg1 08/27 00:12 Follow up: Response: No adverse reaction vg1 08/26 15:13 Drug: Calcium Gluconate 1 grams Route: IVPB; Infused Over: 60 mins; Site: right wrist; vg1 08/27 00:12 Follow up: IV Status: Completed infusion vg1 Disposition: 08/28 06:11 Co-signature as Attending Physician, Sebastian Rivera MD I agree with the assessment and kdr plan of care. Disposition: 08/26/20 14:18 Hospitalization ordered by Terence Jo for Inpatient Admission. Preliminary diagnosis are Acute kidney failure, Hyperkalemia. - Bed requested for [facility] ER HOLD. - Status is Inpatient Admission. sg - Condition is Fair. - Problem is new. - Symptoms are unchanged. Signatures: Dispatcher [employer] EDMS Yoel Garcia RN RN sg Sebastian Rivera MD MD [facility] Seferino Angeles PA PA jr8 Daphne Garrett, RN JUAN DANIEL cg Mervat Garrett RN RN vg1 Flora Robert RN RN 1 Nereyda Delgadillo RN Corrections: (The following items were deleted from the chart) 08/26 14:26 14:20 Patient stated that he has had a hard time walking and has felt very fatigued and jr8 weak over the past several weeks. Stated that because of this he has missed several dialysis sessions. Sated that it has become so severe that he called EMS to be evaluated . jr8 20:15 14:18 Hospitalization Ordered by Terence Jo DO for Inpatient Admission. Preliminary cg diagnosis is Acute kidney failure; Hyperkalemia. Bed requested for Telemetry/MedSurg (Inpatient). Status is Inpatient Admission. Condition is Fair. Problem is new. Symptoms are unchanged. jr8 08/27 22:52 08/26 20:15 08/26/2020 14:18 Hospitalization Ordered by Terence Jo DO for Inpatient Admission. Preliminary diagnosis is Acute kidney failure; Hyperkalemia. Bed requested for [facility] ER HOLD. Status is Inpatient Admission. Condition is Fair. Problem is new. Symptoms are unchanged. cg
--- NOTE | 2020-08-26 14:18 | ER ---
Nurse's Notes [facility] Name: Cr Orellana Age: 55 yrs Sex: Male : 1965 Arrival Date: 08/26/2020 Time: 11:24 Bed 20 Private MD: Diagnosis: Acute kidney failure;Hyperkalemia Presentation: 08/26 11:26 Chief complaint: EMS states: called from [facility] for pt being iw "lethargic and weak", has missed last 5 dialysis treatments. Risk Assessment: Do you want to hurt yourself or someone else? Patient reports no desire to harm self or others. 11:26 Method Of Arrival: EMS: [facility] iw 11:26 Acuity: HUYEN 3 iw 11:32 Coronavirus screen: Client denies travel out of the [place] in the last 14 days. At this ll1 time, the client does not indicate any symptoms associated with coronavirus-19. Ebola Screen: Patient denies travel to an Ebola-affected area in the 21 days before illness onset. Onset of symptoms was August 26, 2020. 11:38 Initial Sepsis Screen: Does the patient meet any 2 criteria? No. Patient's initial ll1 sepsis screen is negative. Does the patient have a suspected source of infection? No. Patient's initial sepsis screen is negative. 11:39 Chief complaint: Patient states: Cough, weakness, sores in mouth, sore throat for 1 ll1 week. States he missed dialysis all week and hasn't taken his home meds due to feeling ill. No fever. Reports falling onto R hip last night, no LOC. Historical: - Allergies: 11:32 No Known Allergies; ll1 - PMHx: 11:32 DIALYSIS MWF; Hypertension; seasonal allergies; ll1 - Immunization history:: Adult Immunizations up to date. - Social history:: Smoking status: Patient denies any tobacco usage or history of. Screenin:32 Abuse screen: Denies threats or abuse. Nutritional screening: No deficits noted. ll1 Tuberculosis screening: No symptoms or risk factors identified. 12:12 Fall Risk Fall in past 12 months (25 points). IV access (20 points). Gait- Weak (10 ll1 pts.). Total Currie Fall Scale indicates High Risk Score (45 or more points). Fall prevention measures have been instituted. Side Rails Up X 2 Placed Close to Nursing Station Frequent Obs/Assessments Occuring As available patient and family educated on Fall Prevention Program and Strategies. Assessment: 12:09 General: Appears slender, unkempt, Behavior is calm, cooperative, appropriate for age. ll1 Pain: Complains of pain in R hip Quality of pain is described as aching, Pain began 1 day ago. Aggravated by increased activity. Neuro: No deficits noted. Neuro: Level of Consciousness is awake, alert, obeys commands, Oriented to person, place, time, situation, Appropriate for age Full function Weakness Speech is normal, Facial symmetry appears normal, Reports paresthesias in R arm. Cardiovascular: Reports fatigue, Heart tones S1 S2 Capillary refill < 3 seconds Patient's skin is warm and dry. Respiratory: Reports cough that is Airway is patent Trachea midline Respiratory effort is even, unlabored, Respiratory pattern is regular, symmetrical. GI: No deficits noted. EENT: Reports sores to mouth, sore throat. Musculoskeletal: Circulation, motion, and sensation intact. Capillary refill < 3 seconds, Reports pain in R hip. Injury Description: Bruise fall. 12:15 General: Appears uncomfortable, Behavior is calm, cooperative. Pain: Complains of pain vg1 in TAMARA hips and legs Pain currently is 9 out of 10 on a pain scale. Neuro: Level of Consciousness is awake, alert, obeys commands, Oriented to person, place, time, situation. Cardiovascular: Patient's skin is warm and dry. Respiratory: Airway is patent Respiratory effort is even, unlabored, Respiratory pattern is regular, symmetrical. GI: No signs and/or symptoms were reported involving the gastrointestinal system. : No signs and/or symptoms were reported regarding the genitourinary system. EENT: Reports sores in mouth. Derm: Skin is pink, warm \\T\\ dry. Musculoskeletal: Circulation, motion, and sensation intact. Reports pain in TAMARA hips and legs. 13:43 Reassessment: Patient appears in no apparent distress at this time. No changes from vg1 previously documented assessment. Patient is alert, oriented x 3, equal unlabored respirations, skin warm/dry/pink. 14:45 Reassessment: Patient appears in no apparent distress at this time. No changes from vg1 previously documented assessment. Patient is alert, oriented x 3, equal unlabored respirations, skin warm/dry/pink. 15:30 Reassessment: Patient moved to Dialysis via stretcher, taken by printing worker supervisor. vg1 20:21 Reassessment: Received report from Olaf FRANCES. Patient did not have any fluid removed, vg1 patient would become hypotensive. At 1645 patient was given Albumin 25mg/100ml. Last set of vitals was at 1954, BP 136/60, HR 118, Temp 98.0, Resp 18, and O2 98% RA. Vital Signs: 11:38 BP 180 / 91; Pulse 88; Resp 18; Temp 97.7; Pulse Ox 100% on R/A; Pain 9/10; ll1 12:10 BP 157 / 95; Pulse 75; Resp 18; Pulse Ox 100% on R/A; vg1 13:00 BP 167 / 106; Pulse 86; Resp 22; Pulse Ox 100% on R/A; vg1 13:43 BP 184 / 104; Pulse 85; Resp 20; Pulse Ox 100% on R/A; vg1 ED Course: 11:24 Patient arrived in ED. iw 11:28 Triage completed. iw 11:31 Flora Robert, RN is Primary Nurse. ll1 11:32 Arm band placed on Patient placed in an exam room, on a stretcher. ll1 11:32 Patient has correct armband on for positive identification. Bed in low position. Call ll1 light in reach. Side rails up X2. Pulse ox on. NIBP on. 11:50 Warm blanket given. Cleaned of incontinence. brief applied. ll1 12:00 Inserted saline lock: 22 gauge in right hand, using aseptic technique. Blood collected. ll1 12:05 Primary Nurse role handed off by Flora Robert, JUAN DANIEL vg1 12:05 Mervat Garrett, RN is Primary Nurse. vg1 12:16 EKG done, by ED staff, reviewed by Sebastian Rivera MD. jp3 12:34 Seferino Angeles PA is PHCP. jr8 12:34 Sebastian Rivera MD is Attending Physician. jr8 13:25 XRAY Chest (1 view) In Process Unspecified. EDMS 13:31 Notified Nurse Practitioner and/or Physician Partnership Manager of a critical lab result(s), hgb dm5 6.9. 14:16 Prezas, Terence, DO is Hospitalizing Provider. jr8 14:[address] via stretcher. vg1 14:29 CT Head Brain wo Cont In Process Unspecified. EDMS 14:37 Admitting physician to see patient. vg1 20:43 Primary Nurse role handed off by Mervat Garrett RN sg 20:55 Mervat Garrett RN is Primary Nurse. vg1 21:21 Lab(s) recollected, by me, sent to lab. vg1 08/27 00:13 No provider procedures requiring assistance completed. Patient admitted, IV remains in vg1 place. 03:29 Primary Nurse role handed off by Mervat Garrett RN mw2 10:26 Flora Robert, JUAN DANIEL is Primary Nurse. ll1 Administered Medications: 08/26 14:43 Drug: Lasix 60 mg Route: IVP; Site: left wrist; vg1 08/27 00:13 Follow up: Response: No adverse reaction vg1 08/26 14:45 Drug: D50W 50 ml Route: IVP; Site: right wrist; vg1 08/27 00:13 Follow up: Response: No adverse reaction vg1 08/26 14:55 Drug: Insulin Regular Human 10 units {Co-Signature: víctor (Nereyda Delgadillo RN).} Route: vg1 IVP; Site: right wrist; 08/27 00:13 Follow up: Response: No adverse reaction vg1 08/26 15:00 Drug: Kayexalate 45 grams Route: PO; vg1 08/27 00:13 Follow up: Response: No adverse reaction vg1 08/26 15:00 Drug: Albuterol 2.5 mg Route: Inhalation; vg1 08/27 00:12 Follow up: Response: No adverse reaction vg1 08/26 15:13 Drug: Calcium Gluconate 1 grams Route: IVPB; Infused Over: 60 mins; Site: right wrist; vg1 08/27 00:12 Follow up: IV Status: Completed infusion vg1 Outcome: 08/26 14:18 Decision to Hospitalize by Provider. jr8 08/27 00:14 Admitted to ER Hold. Please see [facility] for further documentation. vg1 Condition: good Instructed on the need for admit. 22:52 Patient left the ED. sg Signatures: Dispatcher [facility] EDWA Kate Yip RN RN dmYoel Meléndez RN RN sg Williams, Irene, RN RN iw Roszak Seferino, PA PA jr8 Jesica, Stacey mw2 Florencio Rosales jp3 Mervat Garrett RN RN vg1 Flora Robert RN RN ll1 Nereyda Delgadillo RN iw
[2020-08-26] MEDS ORDERED: NA CHLORIDE 0.9% 1,000 ML IV PRN (14:22)
[2020-08-26] MEDS ORDERED: MANNITOL 25% 12.5 GM/50 ML VIAL IV PRN (14:22)
[2020-08-26] MEDS ORDERED: ALBUTEROL 2.5 MG/3 ML NEB SOL ONE (14:33)
[2020-08-26] MEDS ORDERED: FUROSEMIDE 100 MG/10 ML VIAL IV ONE (14:33)
[2020-08-26] MEDS ORDERED: INSULIN -REGULAR HUMAN 50 UNIT/0.5 ML ML ONE (14:34)
[2020-08-26] MEDS ORDERED: SOD POLYSTYREN SUL 15 GM/60 ML UCUP ONE (14:35)
[2020-08-26] MEDS ORDERED: CALCIUM GLUCONATE 1 GM IVPB 1 GM/50 ML BAG IV ONE (14:35)
[2020-08-26] MEDS ORDERED: D50W 25 GM/50 ML SYRINGE IV ONE (14:36)
--- NOTE | 2020-08-26 14:58 | RAD REPORT ---
EXAM DESCRIPTION: CT - Head Brain Wo Cont - 08/26/2020 2:29 pm CLINICAL HISTORY: WEAKNESS Headache, drowsiness COMPARISON: No comparisons TECHNIQUE: All CT scans are performed using dose optimization technique as appropriate and may inclu de automated exposure control or mA/KV adjustment according to patient size. FINDINGS: No intracranial hemorrhage, hydrocephalus or extra-axial fluid collection.No areas of brai n edema or evidence of midline shift. The paranasal sinuses and mastoids are clear. The calvarium is intact. IMPRESSION: No acute intracranial abnormality.
[2020-08-26] MEDS ORDERED: ALBUMIN HUMAN 25% 50 ML IV SCH (15:00)
--- NOTE | 2020-08-26 15:30 | P.HP ---
Certification for Inpatient Patient admitted to: Inpatient With expected LOS: >2 Midnights Patient will require the following post-hospital care: Alf Practitioner: I am a practitioner with admitting privileges, knowledge of patient current condition, hospital course, and medical plan of care. Services: Services provided to patient in accordance with Admission requirements found in Title 42 Section 412.3 of the Code of Federal Regulations Patient History Date of Service: 08/26/20 Primary Care Provider: None; Nephrology-Dr. Garcia Reason for admission: Fatigue, and multiple missed dialysis History of Present Illness: 55-year-old male with multiple medical problems including end-stage renal disease on hemodialysis. Patient has been hospitalized multiple times for missed dialysis. Today patient came to the ER feeling fatigued with poor appetite. Patient admits missing dialysis multiple times. He reports that he has been tired and not able to get a ride. Patient denied any significant chest pain. Mild shortness of breath noted. Patient came to the ER for further evaluation. In the ER patient appeared disheveled and not well kept. Lab significantly abnormal for potassium of 8.3. BN of 21, creatinine 2. GFR 2. Glucose 88. White count 11.8. CBC reviewed. Troponin 0.74. ER spoke to Nephrology. Patient was given hyperkalemia cocktail. Nephrology plans for urgent dialysis. Patient admitted for further evaluation. Patient history of being homeless. Allergies No Known Allergies Allergy (Unverified 02/22/20 16:32) Home medications list reviewed: Yes Home Medications: Atorvastatin Calcium [Lipitor*] 20 mg PO BEDTIME 07/16/20 Calcium Carbonate [Tums Regular*] 1,000 mg PO AC 07/16/20 Cyanocobalamin [Vitamin B-12*] 1,000 mcg PO DAILY 07/16/20 Doxazosin [Cardura*] 2 mg PO BEDTIME 07/16/20 Folic Acid 1 mg PO DAILY 07/16/20 Gabapentin 300 mg PO BID 07/16/20 Pantoprazole Sodium [Protonix] 40 mg PO DAILY 07/16/20 Sevelamer Carbonate [Renvela*] 800 mg PO TIDWM 07/16/20 Tamsulosin [Flomax*] 0.4 mg PO BEDTIME 07/16/20 Thiamine HCl 100 mg PO DAILY 07/16/20 Zinc Sulfate [Zinc Sulfate*] 220 mg PO DAILY 07/16/20 carvediloL [Coreg*] 25 mg PO BID 07/16/20 Calcitrol [Rocaltrol*] 0.5 mcg PO DAILY #30 cap 07/25/20 Cholecalciferol (Vitamin D3) [Vitamin D 5,000 IU Cap*] 5,000 unit PO DAILY #30 cap 07/25/20 Docusate [Colace Cap*] 100 mg PO BID #60 cap 07/25/20 Mannitol 25% [Mannitol*] 12.5 gm IV EVERY HD PRN vial 07/25/20 - Past Medical/Surgical History Diabetic: No -: GERD -: Prior GI bleed -: ESRD on hemodialysis -: Anemia of chronic disease -: Hypertension -: Hyperlipidemia -: BPH -: pelvis sx 11 years ago Psychosocial/ Personal History: Patient is homeless. He does not have any family members. - Family History Father -: Other (see notes) Notes: alcoholism - Social History Smoking Status: Unknown if ever smoked Alcohol use: No CD- Drugs: No Caffeine use: No Place of Residence: Homeless Review of Systems General: Weakness, Malaise Eyes: As per HPI Respiratory: Shortness of Breath Cardiovascular: As per HPI Gastrointestinal: Unremarkable Genitourinary: Unremarkable Musculoskeletal: Unremarkable Integumentary: Unremarkable Neurological: Weakness, As per HPI Lymphatics: Unremarkable Physical Examination - Physical Exam General: Alert, In no apparent distress, Oriented x3, Cooperative, Cachectic, Disheveled HEENT: Atraumatic, Other (Dry mucous membranes) Neck: Supple Respiratory: Clear to auscultation bilaterally, Normal air movement Cardiovascular: Normal pulses, Regular rate/rhythm Gastrointestinal: Normal bowel sounds, Soft and benign, Non-distended, No tenderness, No masses, No rebound, No guarding Musculoskeletal: No erythema, No tenderness, No warmth Integumentary: No tenderness/swelling, No erythema, No warmth, No cyanosis Neurological: Normal speech, Normal strength at 5/5 x4 extr, Normal tone, Normal affect - Studies Laboratory Data (last 24 hrs) 08/26/20 12:00: PT 12.4, INR 1.05 08/26/20 12:00: WBC 11.8 H, Hgb 6.9 L*, Hct 21.8 L, Plt Count 107 L 08/26/20 12:00: Sodium 132 L, Potassium 8.3 H*, BUN 136 H, Creatinine 21.10 H*, Glucose 88, Magnesium 2.8 H D, Total Bilirubin 0.5, AST 52 H, ALT 25, Alkaline Phosphatase 93 Assessment and Plan - Plan Impression: Severe hyperkalemia with end-stage renal disease with noncompliance of dialysis Anemia of chronic disease Hypertension Hyperlipidemia GERD BPH Plan: Patient will be admitted to ICU for urgent dialysis. Patient given hyperkalemia cocktail in the emergency room. Patient will require dialysis due to hyperkalemia. ER physician spoke to Nephrology. Will need to obtain and restart home medication. Will monitor anemia. Patient may require transfusion if hemoglobin remains below 7.0. Will discuss with nephrology. Will restart blood pressure medication. Patient also takes medication for hyperlipidemia, GERD, BPH. Patient has a history of being homeless with missed dialysis. We need to get social work involved as far his the possibility of long-term care for this patient. Patient may be eligible. Continue monitor electrolytes. Will continue to reassess. Discharge Plan: Home Plan to discharge in: Greater than 2 days - Advance Directives Does patient have a Living Will: No Does patient have a Durable POA for Healthcare: No - Code Status/Comfort Care Code Status Assessed: Yes (Patient is full code) Time Spent Managing Pts Care (In Minutes): 55
[2020-08-26 16:21] LABS: Hematocrit 21.6 % (39.6-49.0)
[2020-08-26] MEDS: TRAMADOL HCL 50 MG TAB PO PRN (21:28)
[2020-08-26] MEDS ORDERED: TRAMADOL HCL 50 MG TAB ONE (21:42)
[2020-08-26 21:53] LABS: Potassium 3.5 mmol/L (3.5-5.1)
[2020-08-27] MEDS ORDERED: HYDROCODONE/APAP 7.5/325 MG TAB ONE ×3 (01:42→21:19)
[2020-08-27] MEDS: HYDROCODONE/APAP 7.5/325 MG TAB PO PRN ×3 (02:00→21:07)
[2020-08-27 05:44] LABS: Magnesium 2.2 mg/dL (1.8-2.4); Phosphorus 8.4 mg/dL (2.5-4.9)
[2020-08-27 06:00] LABS: Absolute Lymphocytes (CBC) 1.7 K/uL (0.7-4.9); Basophils % 0.9 % (0-1.3); Hematocrit 18.8 % (39.6-49.0); Lymphocytes % 22.8 % (15.3-44.8); MPV 7.7 fL (7.6-11.3); RBC Red Blood Cell Count 2.02 M/uL (4.33-5.43)
[2020-08-27] MEDS ORDERED: VITAMIN D 1000 UNIT TAB ONE (07:47)
[2020-08-27] MEDS ORDERED: MULTIVITAMIN TAB PO ONE (07:47)
[2020-08-27] MEDS ORDERED: FOLIC ACID 1 MG TABLET ONE (07:48)
[2020-08-27] MEDS ORDERED: FAMOTIDINE 20 MG TAB ONE (07:48)
[2020-08-27] MEDS: SEVELAMER CARBONATE 800 MG TABLET PO SCH ×3 (08:00→17:00)
[2020-08-27] MEDS ORDERED: INFLUENZA VACCINE (for 3y+) 0.5 ML DOSE IMVAC ONE (08:00)
[2020-08-27] MEDS: FAMOTIDINE 20 MG TAB PO SCH (08:07)
[2020-08-27] MEDS: MULTIVITAMIN TAB PO SCH (08:07)
[2020-08-27] MEDS: VITAMIN D 1000 UNIT TAB PO SCH (08:07)
[2020-08-27] MEDS: FOLIC ACID 1 MG TABLET PO SCH (08:07)
[2020-08-27] MEDS: CALCITROL 0.25 MCG CAP PO SCH (08:20)
[2020-08-27] MEDS: THIAMINE HCL 100 MG TABLET PO SCH (08:20)
[2020-08-27] MEDS ORDERED: THIAMINE HCL 100 MG TABLET ONE (08:26)
[2020-08-27] MEDS ORDERED: EPOETIN ALFA 10,000 UNIT/ML VIAL SQ SCH (09:00)
[2020-08-27] MEDS ORDERED: FUROSEMIDE 20 MG/ 2ML VIAL ONE (09:20)
[2020-08-27] MEDS ORDERED: NA CHLORIDE 0.9% 250 ML ONE (09:20)
[2020-08-27 10:59] LABS: Blood Morphology Comment NOTED (NOT SEEN); Platelet Estimate DECR
[2020-08-27 11:00] LABS: Anisocytosis 2+; Polychromasia 1+
--- NOTE | 2020-08-27 13:51 | P.PN ---
Subjective Date of Service: 08/27/20 Primary Care Provider: None; Nephrology-Dr. Garcia Chief Complaint: Fatigue, and multiple missed dialysis Subjective: Improving, Doing well Physical Examination - Vital Signs Temperature: 98.4 F Blood Pressure: 134/77 Pulse: 97 Respirations: 18 Pulse Ox (%): 100 - Physical Exam General: Alert, In no apparent distress, Oriented x3, Cooperative HEENT: Atraumatic Neck: Supple Respiratory: Clear to auscultation bilaterally, Normal air movement Cardiovascular: Normal pulses, Regular rate/rhythm Gastrointestinal: Normal bowel sounds Neurological: Normal speech, Normal strength at 5/5 x4 extr, Normal tone, Normal affect - Studies Laboratory Data (last 24 hrs) 08/26/20 14:09: Hgb 6.9 L*, Hct 21.6 L 08/26/20 12:00: Sodium 132 L, Potassium 8.3 H*, BUN 136 H, Creatinine 21.10 H*, Glucose 88, Magnesium 2.8 H D, Total Bilirubin 0.5, AST 52 H, ALT 25, Alkaline Phosphatase 93 Medications List Reviewed: Yes Assessment & Plan Discharge Plan: 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 Anemia noted today. Will provide one unit of blood today. May need another unit of blood tomorrow with dialysis. Will continue with home meds. Discussed with Nephrology. Patient is homeless. He is willing to go to SNF then retirement care due to his noncompliance. Will consult social work to help with this. Will review and restart meds. PT to assess. Await approval of SNF then retirement care. Will monitor lab closely. Time Spent Managing Pts Care (In Minutes): 55
--- NOTE | 2020-08-27 14:03 | CON ---
Date of Consultation: 08/27/2020 Reason For Consultation: Elevated troponin. History Of Present Illness: 55-year-old noncompliant patient with end-stage renal disease, on hemodi alysis, presented to the emergency room because of a need of dialysis and being short of breath as pe r his report, found to be severely anemic, hemoglobin level at 6 in blood. Transfusion was started. The patient claimed that he has seen some blood in his stool as well. Denies having any active ches t pain at the moment, however, he is a very poor historian. Past Medical History: End-stage renal disease on hemodialysis, anemia and congestive heart failure a s per his report. Medications: Refer to reconciliation sheet for detailed list. Allergies: NO KNOWN DRUG ALLERGIES. Social History: Does not smoke or drink, using drugs as per his report, but it was reported that he is homeless and noncompliant with medications. Family History: No premature coronary artery disease or cancer. Review of Systems: All systems reviewed and they were negative except what mentioned in the HPI. Physical Examination: Vital Signs: Temperature is 98.4, pulse is 97, breathing at 18, blood pressure 134/77, saturating 99 %. He is a middle-aged male, thin body habitus. No apparent distress. Head and Neck: Pupils are equal and reactive to light. Intact eye movements. No JVD. No cervical lymphadenopathy. Neck: Supple. Thyroid is not enlarged. Lungs: Clear to auscultation bilaterally. No rhonchi, rales, or crackles. No accessory muscle use. Heart: Regular rate and rhythm. No extra sounds. Abdomen: Soft, nontender. Bowel sounds positive. No organomegaly. Extremities: No edema, clubbing, cyanosis, intact pulses. Skin: No rash noted. Neurologic: Alert, awake, oriented x3. No acute focal deficits appreciated. Investigations: Creatinine 9.69. Troponin 0.74. NT-proBNP is 13,299. White blood count 7.6, hemog lobin 6.1. Assessment And Plan: 1.Elevated troponin. No acute ST elevation on EKG. No active chest pain at the present time. This could be demand ischemia. However, he has risk factors. Recommend to obtain a nuclear stress test to further evaluate and plan accordingly. I will avoid coronary angiogram given history of the patie nt being noncompliant with medications. Also severe anemia that required transfusion. 2.Anemia, severe, probably part of his symptoms. He is getting blood transfusion and recommend GI w orkup given the history of blood in stool as per his report. 3.End-stage renal disease. No shortness of breath. He will need dialysis. /DOUGIE Voice ID: [id number] Report ID: [id number]
[2020-08-27] MEDS ORDERED: FUROSEMIDE 20 MG/ 2ML VIAL IV ONE (14:08)
[2020-08-27] MEDS ORDERED: FAMOTIDINE 20 MG/2 ML VIAL IV ONE (16:26)
[2020-08-27] MEDS ORDERED: PANTOPRAZOLE 40 MG INJ ONE (17:26)
--- NOTE | 2020-08-27 20:58 | P.CNS ---
Date of Consult: 08/27/20 Reason for Consult: ESRD Requesting Physician: Terence Jo Primary Care Provider: None; Nephrology-Dr. Garcia Chief Complaint: Fatigue, and multiple missed dialysis History of Present Illness: 55 yo WM ESRD, HTN presented to the ER with severe, progressive fatigue with associated malaise and weakness due to multiple missed dialysis. 55-year-old male with multiple medical problems including end-stage renal disease on hemodialysis. Patient has been hospitalized multiple times for missed dialysis. Today patient came to the ER feeling fatigued with poor appetite. Patient admits missing dialysis multiple times. He reports that he has been tired and not able to get a ride. Patient denied any significant chest pain. Mild shortness of breath noted. Patient came to the ER for further evalu ation. Allergies No Known Allergies Allergy (Unverified 02/22/20 16:32) Home medications list reviewed: Yes Home Medications: Atorvastatin Calcium [Lipitor*] 20 mg PO BEDTIME 07/16/20 Calcium Carbonate [Tums Regular*] 1,000 mg PO AC 07/16/20 Cyanocobalamin [Vitamin B-12*] 1,000 mcg PO DAILY 07/16/20 Doxazosin [Cardura*] 2 mg PO BEDTIME 07/16/20 Folic Acid 1 mg PO DAILY 07/16/20 Gabapentin 300 mg PO BID 07/16/20 Pantoprazole Sodium [Protonix] 40 mg PO DAILY 07/16/20 Sevelamer Carbonate [Renvela*] 800 mg PO TIDWM 07/16/20 Tamsulosin [Flomax*] 0.4 mg PO BEDTIME 07/16/20 Thiamine HCl 100 mg PO DAILY 07/16/20 Zinc Sulfate [Zinc Sulfate*] 220 mg PO DAILY 07/16/20 carvediloL [Coreg*] 25 mg PO BID 07/16/20 Calcitrol [Rocaltrol*] 0.5 mcg PO DAILY #30 cap 07/25/20 Cholecalciferol (Vitamin D3) [Vitamin D 5,000 IU Cap*] 5,000 unit PO DAILY #30 cap 07/25/20 Docusate [Colace Cap*] 100 mg PO BID #60 cap 07/25/20 Mannitol 25% [Mannitol*] 12.5 gm IV EVERY HD PRN vial 07/25/20 - Past Medical/Surgical History Diabetic: No -: GERD -: Prior GI bleed -: ESRD on hemodialysis -: Anemia of chronic disease -: Hypertension -: Hyperlipidemia -: BPH -: pelvis sx 11 years ago Psychosocial/ Personal History: Patient is homeless. He does not have any family members. - Family History Father Medical History: Other (see notes) Notes: alcoholism - Social History Smoking Status: Current some day smoker Alcohol use: No CD- Drugs: No Caffeine use: No Place of Residence: [facility] Physical Examination Temp Pulse Resp BP Pulse Ox 98.0 F 85 16 137/84 99 08/27/20 16:00 08/27/20 16:00 08/27/20 16:00 08/27/20 16:00 08/27/20 16:00 Conclusions/Impression: A/ ESRD on HD Hyperkalemia HTN with CKD/ CHF Diastolic CHF, chronic Anemia in CKD MIAH/ Secondary HyperPTH P/ Continue current POC and Medications. Acute, stat HD ordered yesterday evening. Next HD tomorrow. Transfer [facility] with dialysis. Renal/ Low sodium diet. No NSAIDs. AM labs. Daily weight. Case reviewed with Dr. Jo Possible SNF placement
[2020-08-27 22:22] LABS: Hematocrit 22.8 % (39.6-49.0)
[2020-08-28] MEDS: HYDROCODONE/APAP 7.5/325 MG TAB PO PRN ×3 (05:09→20:18)
[2020-08-28 05:19] LABS: Absolute Lymphocytes (CBC) 2.6 K/uL (0.7-4.9); Basophils % 1.5 % (0-1.3); Hematocrit 24.4 % (39.6-49.0); Lymphocytes % 23.8 % (15.3-44.8); MPV 7.7 fL (7.6-11.3); RBC Red Blood Cell Count 2.61 M/uL (4.33-5.43)
[2020-08-28] MEDS ORDERED: HYDROCODONE/APAP 7.5/325 MG TAB ONE ×3 (05:24→20:33)
[2020-08-28 05:39] LABS: Potassium 4.5 mmol/L (3.5-5.1)
[2020-08-28] MEDS: VITAMIN D 1000 UNIT TAB PO SCH (07:57)
[2020-08-28] MEDS: FAMOTIDINE 20 MG TAB PO SCH (07:57)
[2020-08-28] MEDS: THIAMINE HCL 100 MG TABLET PO SCH (07:57)
[2020-08-28] MEDS: FOLIC ACID 1 MG TABLET PO SCH (07:57)
[2020-08-28] MEDS: MULTIVITAMIN TAB PO SCH (07:57)
[2020-08-28] MEDS: SEVELAMER CARBONATE 800 MG TABLET PO SCH ×3 (08:01→16:50)
[2020-08-28] MEDS ORDERED: FOLIC ACID 1 MG TABLET ONE (08:11)
[2020-08-28] MEDS ORDERED: VITAMIN D 1000 UNIT TAB ONE (08:11)
[2020-08-28] MEDS ORDERED: THIAMINE HCL 100 MG TABLET ONE (08:11)
[2020-08-28] MEDS ORDERED: FAMOTIDINE 20 MG TAB ONE (08:11)
[2020-08-28] MEDS ORDERED: MULTIVITAMIN TAB PO ONE (08:11)
--- NOTE | 2020-08-28 08:35 | ECHO ---
HEIGHT: 5 ft 6 in WEIGHT: 140 lb 0 oz DATE OF STUDY: 08/27/[address]: Terence Jo DO 2-DIMENSIONAL: YES M.MODE: YES DOPPLER: YES COLOR FLOW: YES TDS: NO PORTABLE: NO DEFINITY: NO BUBBLE STUDY: NO DIAGNOSIS: END STAGE RENAL DISEASE CARDIAC HISTORY: CATHERIZATION: SURGERY: PROSTHETIC VALVE: PACEMAKER: MEASUREMENTS (cm) DIASTOLIC (NORMALS) SYSTOLIC (NORMALS) IVSd 1.2 (0.6-1.2) LA Diam 3.4 (1.9-4.0) LVEF 58 % LVIDd 4.1 (3.5-5.7) LVIDs 2.9 (2.0-3.5) %FS 30 % LVPWd 1.3 (0.6-1.2) Ao Diam 2.7 (2.0-3.7) 2 DIMENSIONAL ASSESSMENT: RIGHT ATRIUM: NORMAL LEFT ATRIUM: NORMAL RIGHT VENTRICLE: NORMAL LEFT VENTRICLE: NORMAL TRICUSPID VALVE: NORMAL MITRAL VALVE: NORMAL PULMONIC VALVE: NORMAL AORTIC VALVE: NORMAL PERICARDIAL EFFUSION: NONE AORTIC ROOT: NORMAL LEFT VENTRICULAR WALL MOTION: NORMAL DOPPLER/COLOR FLOW: NORMAL COMMENTS: NORMAL LEFT VENTRICULAR EJECTION FRACTION 55-60%. NORMAL WALL MOTION. NORMAL DIASTOLIC FUNCTION. TECHNOLOGIST: Jesika SALINAS
[2020-08-28] MEDS: CALCITROL 0.25 MCG CAP PO SCH (11:51)
[2020-08-28] MEDS: NEPRO SHAKE 237 ML CAN PO SCH (12:58)
--- NOTE | 2020-08-28 13:51 | P.PN ---
Subjective Date of Service: 08/28/20 Primary Care Provider: None; Nephrology-Dr. Garcia Chief Complaint: Fatigue, and multiple missed dialysis Subjective: Improving, Doing well Physical Examination - Vital Signs Temperature: 98.8 F Blood Pressure: 179/104 Pulse: 90 Respirations: 20 Pulse Ox (%): 99 - Physical Exam General: Alert, In no apparent distress, Oriented x3, Cooperative HEENT: Atraumatic Neck: Supple Respiratory: Clear to auscultation bilaterally, Normal air movement Cardiovascular: Normal pulses, Regular rate/rhythm Gastrointestinal: Normal bowel sounds, No rebound, No guarding Neurological: Normal speech, Normal strength at 5/5 x4 extr, Normal tone, Normal affect - Studies Medications List Reviewed: Yes Assessment & Plan Discharge Plan: Other (snf facility then long-term care) Plan to discharge in: Greater than 2 days Physician Review Additional Text: Impression: Severe hyperkalemia with end-stage renal disease with noncompliance of dialysis Elevated troponin likely NSTEMI versus ischemic demand secondary to above with history of chronic diastolic CHF Anemia of chronic disease Chronic thrombocytopenia Hypertension Hyperlipidemia GERD with hiatal hernia BPH Plan: Severe hyperkalemia with end-stage renal disease with noncompliance of dialysis: Hyperkalemia resolved. Patient now on dialysis. Continue with Nephrology recommendations. Patient will get another unit of blood during dialysis today. Overall stable. Will have physical therapy assess ambulation. Patient agr eeable for skilled placement then at long-term care. Will pursue this. Case discussed with cardiology yesterday. Will plan for cardiac stress test on Monday. Elevated troponin likely NSTEMI versus ischemic demand secondary to above with history of chronic diastolic CHF: Suspect underlying CAD. Case discussed with cardiology. Will order cardiac stress test for Monday to further evaluate. Anemia of chronic disease: Patient given transfusion of blood yesterday. This has improved. This appears stable. Patient will get another unit of blood during dialysis today. Maintain hemoglobin above 7.0. Continue monitor CBC. Patient will require GI evaluation as an outpatient to further evaluate. Patient should have EGD and colonoscopy in the future. Continue with B12 supplementation Chronic thrombocytopenia: Will monitor this closely. Hypertension: Continue medication. continue to adjust blood pressure medication for blood pressure control Hyperlipidemia: Continue medication. GERD with hiatal hernia: Continue medication BPH: Continue medication Time Spent Managing Pts Care (In Minutes): 55
[2020-08-28] MEDS: NYSTATIN 500,000 UNIT/5 ML UDC PO SCH ×2 (16:49→20:16)
[2020-08-28] MEDS: GABAPENTIN 300 MG CAP PO SCH (20:14)
[2020-08-28] MEDS: DOXAZOSIN 2 MG TAB PO SCH (20:14)
[2020-08-28] MEDS: TAMSULOSIN 0.4 MG SR CAP PO SCH (20:15)
[2020-08-28] MEDS: ATORVASTATIN 20 MG TAB PO SCH (20:15)
[2020-08-28] MEDS: DOCUSATE NA 100 MG CAP PO SCH (20:15)
[2020-08-28] MEDS: carvediloL 25 MG TAB PO SCH (20:15)
[2020-08-28] MEDS ORDERED: TAMSULOSIN 0.4 MG SR CAP ONE (20:16)
[2020-08-28] MEDS ORDERED: GABAPENTIN 300 MG CAP ONE (20:21)
[2020-08-28] MEDS: COENZYME Q10- 200 MG CAP PO SCH (20:27)
[2020-08-29 05:46] LABS: Absolute Lymphocytes (CBC) 1.6 K/uL (0.7-4.9); Basophils % 1.3 % (0-1.3); Hematocrit 24.7 % (39.6-49.0); Lymphocytes % 20.3 % (15.3-44.8); MPV 7.4 fL (7.6-11.3); RBC Red Blood Cell Count 2.65 M/uL (4.33-5.43)
[2020-08-29 06:03] LABS: Magnesium 2.3 mg/dL (1.8-2.4); Phosphorus 5.5 mg/dL (2.5-4.9); Potassium 4.3 mmol/L (3.5-5.1)
[2020-08-29] MEDS ORDERED: GABAPENTIN 300 MG CAP ONE ×2 (07:29→20:27)
[2020-08-29] MEDS ORDERED: MULTIVITAMIN TAB PO ONE (07:29)
[2020-08-29] MEDS ORDERED: FOLIC ACID 1 MG TABLET ONE ×2 (07:30→08:57)
[2020-08-29] MEDS ORDERED: THIAMINE HCL 100 MG TABLET ONE (07:30)
[2020-08-29] MEDS ORDERED: PANTOPRAZOLE 40MG TABLET PO ONE (07:30)
[2020-08-29] MEDS ORDERED: FAMOTIDINE 20 MG TAB ONE (07:30)
[2020-08-29] MEDS ORDERED: VITAMIN D 1000 UNIT TAB ONE ×2 (07:30→08:57)
[2020-08-29] MEDS: PANTOPRAZOLE 40MG TABLET PO SCH (08:34)
[2020-08-29] MEDS: VITAMIN D 1000 UNIT TAB PO SCH (08:34)
[2020-08-29] MEDS: THIAMINE HCL 100 MG TABLET PO SCH (08:34)
[2020-08-29] MEDS: GABAPENTIN 300 MG CAP PO SCH ×2 (08:34→20:52)
[2020-08-29] MEDS: MULTIVITAMIN TAB PO SCH (08:35)
[2020-08-29] MEDS: FAMOTIDINE 20 MG TAB PO SCH (08:35)
[2020-08-29] MEDS: SEVELAMER CARBONATE 800 MG TABLET PO SCH ×3 (08:35→16:05)
[2020-08-29] MEDS: DOCUSATE NA 100 MG CAP PO SCH ×2 (08:36→20:53)
[2020-08-29] MEDS: CALCITROL 0.25 MCG CAP PO SCH (08:36)
[2020-08-29] MEDS: carvediloL 25 MG TAB PO SCH ×2 (08:36→20:53)
[2020-08-29] MEDS: NYSTATIN 500,000 UNIT/5 ML UDC PO SCH ×3 (08:37→21:55)
[2020-08-29] MEDS: NEPRO SHAKE 237 ML CAN PO SCH (08:38)
[2020-08-29] MEDS: FOLIC ACID 1 MG TABLET PO SCH (08:42)
[2020-08-29] MEDS ORDERED: EPOETIN ALFA-EPBX 10,000 UNIT/ML VIAL SQ SCH (09:00)
[2020-08-29 09:28] LABS: Platelet Estimate DECR
[2020-08-29 09:29] LABS: Blood Morphology Comment NOT SEEN (NOT SEEN)
[2020-08-29] MEDS: COENZYME Q10- 200 MG CAP PO SCH (09:55)
--- NOTE | 2020-08-29 10:01 | P.PN ---
Subjective Date of Service: 08/29/20 Primary Care Provider: None; Nephrology-Dr. Garcia Chief Complaint: Fatigue, and multiple missed dialysis Subjective: Doing well Physical Examination - Vital Signs Temperature: 98.5 F Blood Pressure: 149/85 Pulse: 91 Respirations: 15 Pulse Ox (%): 97 - Physical Exam General: Alert, Cooperative HEENT: Atraumatic Neck: Supple Respiratory: Clear to auscultation bilaterally, Normal air movement Cardiovascular: Normal pulses, Regular rate/rhythm Gastrointestinal: Normal bowel sounds, No rebound, No guarding Neurological: Normal speech, Normal strength at 5/5 x4 extr, Normal tone, Normal affect - Studies Medications List Reviewed: Yes Assessment & Plan Discharge Plan: Other ([facility] facility then long-term care) Plan to discharge in: Greater than 2 days Physician Review Additional Text: Impression: Severe hyperkalemia with end-stage renal disease with noncompliance of dialysis Elevated troponin likely NSTEMI versus ischemic demand secondary to above with history of chronic diastolic CHF Anemia of chronic disease Chronic thrombocytopenia Hypertension Hyperlipidemia GERD with hiatal hernia BPH Plan: Severe hyperkalemia with end-stage renal disease with noncompliance of dialysis: Hyperkalemia resolved. Patient continues on dialysis. Patient agreeable to go to a skilled facility then long-term care. This was discussed in detail with social work. Continue to pursue this. Cardiology recommended cardiac stress test. Will order this for Monday. Continue to monitor closely. Elevated troponin likely NSTEMI versus ischemic demand secondary to above with history of chronic diastolic CHF: Suspect underlying CAD. Case discussed with cardiology. Will order cardiac stress test for Monday to further evaluate. Anemia of chronic disease: Patient has received blood transfusion. Hemoglobin stable. Maintain hemoglobin above 7.0. Patient will require GI evaluation as an outpatient. No GI available at this time. Patient would benefit with GI-EGD colonoscopy in the future. Continue supplementation. Chronic thrombocytopenia: Will monitor this closely. Overall stable. Hypertension: Continue medication. continue to adjust blood pressure medic ation for blood pressure control Hyperlipidemia: Continue medication. GERD with hiatal hernia: Continue medication BPH: Continue medication Time Spent Managing Pts Care (In Minutes): 55
[2020-08-29 15:44] VITALS: BMI 22.6
[2020-08-29] MEDS: HYDROCODONE/APAP 7.5/325 MG TAB PO PRN ×2 (16:04→21:47)
[2020-08-29] MEDS ORDERED: HYDROCODONE/APAP 7.5/325 MG TAB ONE ×2 (16:19→22:00)
[2020-08-29] MEDS ORDERED: ATORVASTATIN 20 MG TAB ONE (20:28)
[2020-08-29] MEDS ORDERED: TAMSULOSIN 0.4 MG SR CAP ONE (20:28)
[2020-08-29] MEDS: ATORVASTATIN 20 MG TAB PO SCH (20:52)
[2020-08-29] MEDS: TAMSULOSIN 0.4 MG SR CAP PO SCH (20:52)
[2020-08-29] MEDS: DOXAZOSIN 2 MG TAB PO SCH (20:53)
[2020-08-29] MEDS ORDERED: DOXAZOSIN 2 MG TAB ONE (20:57)
[2020-08-29] MEDS ORDERED: DOCUSATE NA 100 MG CAP PO ONE (20:57)
[2020-08-29] MEDS ORDERED: carvediloL 25 MG TAB ONE (20:57)
[2020-08-30] MEDS: HYDROCODONE/APAP 7.5/325 MG TAB PO PRN ×2 (04:37→10:04)
[2020-08-30 04:41] LABS: HBsAG Nonreactive (Nonreactive)
[2020-08-30] MEDS ORDERED: HYDROCODONE/APAP 7.5/325 MG TAB ONE ×2 (04:51→10:19)
[2020-08-30] MEDS ORDERED: GABAPENTIN 300 MG CAP ONE (07:42)
[2020-08-30] MEDS ORDERED: MULTIVITAMIN TAB PO ONE (07:42)
[2020-08-30] MEDS ORDERED: FOLIC ACID 1 MG TABLET ONE (07:43)
[2020-08-30] MEDS ORDERED: FAMOTIDINE 20 MG TAB ONE (07:43)
[2020-08-30] MEDS ORDERED: PANTOPRAZOLE 40MG TABLET PO ONE ×2 (07:43→07:44)
[2020-08-30] MEDS ORDERED: VITAMIN D 1000 UNIT TAB ONE ×2 (07:44→08:45)
[2020-08-30] MEDS ORDERED: THIAMINE HCL 100 MG TABLET ONE (07:44)
[2020-08-30] MEDS: VITAMIN D 1000 UNIT TAB PO SCH (08:04)
[2020-08-30] MEDS: GABAPENTIN 300 MG CAP PO SCH ×2 (08:04→21:45)
[2020-08-30] MEDS: FAMOTIDINE 20 MG TAB PO SCH (08:04)
[2020-08-30] MEDS: MULTIVITAMIN TAB PO SCH (08:04)
[2020-08-30] MEDS: FOLIC ACID 1 MG TABLET PO SCH (08:05)
[2020-08-30] MEDS: PANTOPRAZOLE 40MG TABLET PO SCH (08:05)
[2020-08-30] MEDS: NEPRO SHAKE 237 ML CAN PO SCH (08:05)
[2020-08-30] MEDS: THIAMINE HCL 100 MG TABLET PO SCH (08:05)
[2020-08-30] MEDS: NYSTATIN 500,000 UNIT/5 ML UDC PO SCH ×3 (08:20→21:43)
[2020-08-30] MEDS: SEVELAMER CARBONATE 800 MG TABLET PO SCH ×3 (08:20→16:02)
[2020-08-30] MEDS: carvediloL 25 MG TAB PO SCH ×2 (08:21→21:39)
[2020-08-30] MEDS: COENZYME Q10- 200 MG CAP PO SCH (08:21)
[2020-08-30] MEDS: CALCITROL 0.25 MCG CAP PO SCH (08:22)
[2020-08-30] MEDS: DOCUSATE NA 100 MG CAP PO SCH ×2 (08:22→21:44)
[2020-08-30] MEDS: TRAMADOL HCL 50 MG TAB PO PRN (08:34)
[2020-08-30] MEDS ORDERED: TRAMADOL HCL 50 MG TAB ONE (08:46)
--- NOTE | 2020-08-30 10:59 | P.PN ---
Date of Service: 08/29/20 Vital Signs Temp Pulse Resp BP Pulse Ox 98 F 86 16 149/87 H 98 08/30/20 08:00 08/30/20 08:21 08/30/20 10:04 08/30/20 08:32 08/30/20 10:04 Medications Hydrocodone Bitart/Acetaminophen (Hydrocodone/Apap 7.5/325 Mg Tab) 1 tab PO Q6H PRN PRN Reason: Pain scale 5-7 (Moderate) Stop: 09/25/20 21:15 Last Admin: 08/30/20 10:04 Dose: 1 tab Documented by: Atorvastatin Calcium (Atorvastatin 20 Mg Tab) 20 mg PO BEDTIME [facility] Stop: 09/27/20 21:01 Last Admin: 08/29/20 20:52 Dose: 20 mg Documented by: Calcitriol (Calcitrol 0.25 Mcg Cap) 0.5 mcg PO DAILY [facility] Stop: 09/26/20 09:01 Last Admin: 08/30/20 08:22 Dose: 0.5 mcg Documented by: Carvedilol (Carvedilol 25 Mg Tab) 25 mg PO BID [facility] Stop: 09/27/20 21:01 Last Admin: 08/30/20 08:21 Dose: 25 mg Documented by: Cholecalciferol (Vitamin D 1000 Unit Tab) 5,000 unit PO DAILY [facility] Stop: 09/26/20 09:01 Last Admin: 08/30/20 08:04 Dose: 5,000 unit Documented by: Coenzyme Q10 (Coenzyme Q10- 200 Mg Cap) 200 mg PO DAILY [facility] Stop: 09/27/20 20:28 Last Admin: 08/30/20 08:21 Dose: 200 mg Documented by: Docusate Sodium (Docusate Na 100 Mg Cap) 100 mg PO BID [facility] Stop: 09/27/20 21:01 Last Admin: 08/30/20 08:22 Dose: 100 mg Documented by: Doxazosin Mesylate (Doxazosin 2 Mg Tab) 2 mg PO BID [facility] Stop: 09/29/20 11:01 Enteral Nutritional Formula (Nepro Shake 237 Ml Can) 237 ml PO DAILY [facility] Stop: 09/27/20 09:01 Last Admin: 08/30/20 08:05 Dose: 237 ml Documented by: Famotidine (Famotidine 20 Mg Tab) 20 mg PO DAILY [facility]; Protocol Stop: 09/26/20 09:01 Last Admin: 08/30/20 08:04 Dose: 20 mg Documented by: Folic Acid (Folic Acid 1 Mg Tablet) 1 mg PO DAILY [facility] Stop: 09/26/20 09:01 Last Admin: 08/30/20 08:05 Dose: 1 mg Documented by: Gabapentin (Gabapentin 300 Mg Cap) 300 mg PO BID [facility] Stop: 09/27/20 21:01 Last Admin: 08/30/20 08:04 Dose: 300 mg Documented by: Heparin Sodium (Porcine) (Heparin 1,000 Unit/Ml Vial) 6,000 unit IV EVERY HD PRN PRN Reason: AFTER EACH Stop: 09/25/20 14:23 Last Admin: 08/28/20 23:34 Dose: 6,000 unit Documented by: Albumin Human (Albumin 25%) 50 mls @ 100 mls/hr IV EVERY HD [facility] Stop: 09/25/20 15:01 Mannitol (Mannitol 25% 12.5 Gm/50 Ml Vial) 12.5 gm IV EVERY HD PRN PRN Reason: BP SUPPORT AT HD Stop: 09/25/20 14:23 Multivitamins/Minerals (Multivitamin Tab) 1 tab PO DAILY [facility] Stop: 09/26/20 09:01 Last Admin: 08/30/20 08:04 Dose: 1 tab Documented by: Nystatin (Nystatin 500,000 Unit/5 Ml Udc) 500,000 unit PO TID [facility] Stop: 09/27/20 14:01 Last Admin: 08/30/20 08:20 Dose: 500,000 unit Documented by: Pantoprazole Sodium (Pantoprazole 40mg Tablet) 40 mg PO DAILY [facility]; Protocol Stop: 09/28/20 09:01 Last Admin: 08/30/20 08:05 Dose: 40 mg Documented by: Sevelamer Carbonate (Sevelamer Carbonate 800 Mg Tablet) 800 mg PO TIDWM [facility] Stop: 09/26/20 08:01 Last Admin: 08/30/20 08:20 Dose: 800 mg Documented by: Thiamine HCl (Thiamine Hcl 100 Mg Tablet) 100 mg PO DAILY [facility] Stop: 09/26/20 09:01 Last Admin: 08/30/20 08:05 Dose: 100 mg Documented by: Tizanidine HCl (Tizanidine 4 Mg Tablet) 2 mg PO BID [facility] Stop: 09/29/20 11:01 Tramadol HCl (Tramadol Hcl 50 Mg Tab) 50 mg PO Q6H PRN PRN Reason: Pain scale 5-7 (Moderate) Stop: 09/25/20 21:15 Last Admin: 08/30/20 08:34 Dose: 50 mg Documented by: Assessment/ Plan: Nephrology No acute cardiac or pulmonary compaints. No CP or SOB. Reports persistent hand cramping. No acute events overnight. Vitals, medications, blood work and imaging reviewed in the chart. NAD. Cachectic. MMM. Neck supple. CTA. RRR. Soft Abd. No C/C/E. No rash. AAO. Normal Speech. Diffuse sarcopenia. Conclusions/Impression: A/ ESRD on HD Hyperkalemia HTN with CKD/ CHF Diastolic CHF, chronic Anemia in CKD MIAH/ Secondary HyperPTH P/ Continue current POC and Medications. Next HD tomorrow. Give Retacrit. Stop Flomax. Increase Doxazosin BID. Renal/ Low sodium diet. Start Tizanidine for hand cramping. No NSAIDs. AM labs. Daily weight. Recommend SNF placement if possible.
[2020-08-30] MEDS ORDERED: TIZANIDINE 4 MG TABLET PO SCH (11:00)
[2020-08-30] MEDS: DOXAZOSIN 2 MG TAB PO SCH ×2 (11:00→21:41)
--- NOTE | 2020-08-30 11:06 | P.PN ---
Subjective Date of Service: 08/30/20 Primary Care Provider: None; Nephrology-Dr. Garcia Chief Complaint: Fatigue, and multiple missed dialysis Subjective: Improving, Doing well Physical Examination - Vital Signs Temperature: 98 F Blood Pressure: 149/87 Pulse: 86 Respirations: 16 Pulse Ox (%): 98 - Physical Exam General: Alert, In no apparent distress, Oriented x3, Cooperative HEENT: Atraumatic Neck: Supple Respiratory: Clear to auscultation bilaterally, Normal air movement Cardiovascular: Normal pulses, Regular rate/rhythm - Studies Medications List Reviewed: Yes Assessment & Plan Discharge Plan: Other (detention facility then long-term care) Plan to discharge in: 48 Hours Physician Review Additional Text: Impression: Severe hyperkalemia with end-stage renal disease with noncompliance of dialysis Elevated troponin likely NSTEMI versus ischemic demand secondary to above with history of chronic diastolic CHF Anemia of chronic disease Chronic thrombocytopenia Hypertension Hyperlipidemia GERD with hiatal hernia BPH Plan: Severe hyperkalemia with end-stage renal disease with noncompliance of dialysis: Patient has done well. Patient continues on dialysis on his regular days. Patient to have cardiac stress test tomorrow to further evaluate for CAD. Vital signs stable. Hemoglobin stable. Continue to work with physical therapy. Awaiting approval for skilled placement then long-term care. Social work working on this. Anticipate discharge in the next 48 hr with approval. I will turn the service over to the hospitalist team tomorrow. I will go plan of care with him. Elevated troponin likely NSTEMI versus ischemic demand secondary to above with history of chronic diastolic CHF: Suspect underlying CAD. Case discussed with cardiology. Cardiac stress test ordered for tomorrow. Await results. Anemia of chronic disease: Patient has received blood transfusion. Hemoglobin stable. Maintain hemoglobin above 7.0. Patient will require GI evaluation as an outpatient. No GI available at this time. Patient would benefit with GI-EGD colonoscopy in the future. Continue supplementation. Chronic thrombocytopenia: Will monitor this closely. Overall stable. Hypertension: Continue medication. continue to adjust blood pressure medication for blood pressure control. Nephrology has made adjustments to medication. Hyperlipidemia: Continue medication. GERD with hiatal hernia: Continue medication BPH: Continue medication Time Spent Managing Pts Care (In Minutes): 55
[2020-08-30] MEDS: ATORVASTATIN 20 MG TAB PO SCH (21:43)
[2020-08-31 06:29] LABS: Absolute Lymphocytes (CBC) 2.3 K/uL (0.7-4.9); Basophils % 1.2 % (0-1.3); Hematocrit 23.7 % (39.6-49.0); MPV 7.9 fL (7.6-11.3); RBC Red Blood Cell Count 2.54 M/uL (4.33-5.43)
[2020-08-31 06:32] LABS: Albumin 2.6 g/dL (3.4-5.0); Bilirubin Total 0.3 mg/dL (0.2-1.0); Potassium 5.4 mmol/L (3.5-5.1); Protein, Total 6.3 g/dL (6.4-8.2)
[2020-08-31 08:11] LABS: Platelet Estimate DECR
[2020-08-31 08:12] LABS: Anisocytosis 1+; Blood Morphology Comment NOTED (NOT SEEN); Polychromasia 1+
[2020-08-31] MEDS ORDERED: EPOETIN ALFA-EPBX 10,000 UNIT/ML VIAL SQ SCH (09:00)
[2020-08-31] MEDS: carvediloL 25 MG TAB PO SCH (09:00)
[2020-08-31] MEDS: COENZYME Q10- 200 MG CAP PO SCH (09:00)
[2020-08-31] MEDS: NEPRO SHAKE 237 ML CAN PO SCH (09:00)
[2020-08-31] MEDS: DOCUSATE NA 100 MG CAP PO SCH (09:26)
[2020-08-31] MEDS: SEVELAMER CARBONATE 800 MG TABLET PO SCH ×3 (09:27→16:21)
[2020-08-31] MEDS: FAMOTIDINE 20 MG TAB PO SCH (09:27)
[2020-08-31] MEDS: NYSTATIN 500,000 UNIT/5 ML UDC PO SCH ×2 (09:27→13:03)
[2020-08-31] MEDS: FOLIC ACID 1 MG TABLET PO SCH (09:27)
[2020-08-31] MEDS: THIAMINE HCL 100 MG TABLET PO SCH (09:27)
[2020-08-31] MEDS: PANTOPRAZOLE 40MG TABLET PO SCH (09:27)
[2020-08-31] MEDS: DOXAZOSIN 2 MG TAB PO SCH (09:28)
[2020-08-31] MEDS ORDERED: REGADENOSON 0.4 MG/5 ML SYR IV ONE (09:35)
[2020-08-31 09:36] VITALS: O2SAT 97
[2020-08-31] MEDS: CALCITROL 0.25 MCG CAP PO SCH (09:42)
[2020-08-31] MEDS: GABAPENTIN 300 MG CAP PO SCH (11:36)
--- NOTE | 2020-08-31 11:38 | RAD REPORT ---
EXAM DESCRIPTION: NM - Rest Stress Cardiac Imaging - 08/31/2020 11:27 am CLINICAL HISTORY: Chest pain. COMPARISON: None. TECHNIQUE: The patient was administered 10.1 millicuries of Tc 99m Sestamibi prior to resting SPECT imaging of the heart. The patient was then administered 28.9 mCi of Tc 99m Sestamibi following exerci se or pharmacologic stress. Multiplanar SPECT images were reviewed. FINDINGS: Mildly diminished radiotracer uptake involving the inferior left ventricular myocardium pr obably attenuation from the diaphragm Remainder of the left ventricular myocardium demonstrates normal radiotracer activity on rest and str ess images The left ventricular ejection fraction equals 41% IMPRESSION: No evidence of stress-induced ischemia
[2020-08-31] MEDS: HYDROCODONE/APAP 7.5/325 MG TAB PO PRN (11:44)
[2020-08-31 12:15] LABS: Absolute Lymphocytes (CBC) 2.1 K/uL (0.7-4.9); Basophils % 0.9 % (0-1.3); Hematocrit 24.4 % (39.6-49.0); Lymphocytes % 17.9 % (15.3-44.8); MPV 8.6 fL (7.6-11.3)
[2020-08-31 12:33] LABS: Potassium 5.9 mmol/L (3.5-5.1)
[2020-08-31 14:01] VITALS: TEMP 97.4
--- NOTE | 2020-08-31 14:49 | TREADPHA ---
DX: ELEVATED TROPONIN, SUSPECT CORNARY ARTERY DISEASE Date of Study: 08/31/2020 Ht: 5' 6 " Wt: 140 lb 0 oz Consulting Physician: LEONEL MEDICATIONS: LIPITOR, COREG, HYPERTENSION, END STAGE RENAL DISEASE HISTORY: 55 YEAR OLD WITH HYPERTENSION, END STAGE RENAL DISEASE, CHOLESTEROL AND CHEST PAIN. PHYSICIAL EXAMINATION: RESTING B.P.: RESTING H.R.: RESTING EKG: PROTOCOL: PHARMACOLOGIC EXERCISE TIME: 3:30 B.P. AT [facility] STRESS: IMPRESSION: SEE REPORT.
[2020-08-31 15:19] LABS: Potassium 3.9 mmol/L (3.5-5.1)
[2020-08-31] MEDS: TRAMADOL HCL 50 MG TAB PO PRN (16:27)
[2020-08-31] MEDS ORDERED: FERROUS GLUCONATE 324 MG TAB PO SCH (17:00)
[2020-08-31 17:51] VITALS: BP 145/82
--- NOTE | 2020-08-31 20:35 | P.PN ---
Date of Service: 08/31/20 Vital Signs Temp Pulse Resp BP Pulse Ox 97.4 F 98 H 16 145/82 H 97 08/31/20 16:00 08/31/20 16:00 08/31/20 17:27 08/31/20 17:50 08/31/20 17:27 Assessment/ Plan: Nephrology No acute cardiac or pulmonary compaints. No CP or SOB. No acute events overnight. Vitals, medications, blood work and imaging reviewed in the chart. NAD. Cachectic. MMM. Neck supple. CTA. RRR. Soft Abd. No C/C/E. No rash. AAO. Normal Speech. Diffuse sarcopenia. Conclusions/Impression: A/ ESRD on HD Hyperkalemia HTN with CKD/ CHF Diastolic CHF, chronic Anemia in CKD MIAH/ Secondary HyperPTH P/ Continue current POC and Medications. Plan for stress test today. Acute HD ordered for today. Give Retacrit. Continue Doxazosin BID. Renal/ Low sodium diet. No NSAIDs. AM labs. Daily weight. Recommend SNF placement if possible.
--- NOTE | 2020-09-09 01:02 | P.DS ---
Discharge Date: 08/31/20 Primary Care Provider: None; Nephrology-Dr. Garcia Disposition: TRANSFER TO SNF - REHAB Discharge Condition: GOOD Reason for Admission: Fatigue, and multiple missed dialysis Consultations: Nephrology Cardiology Brief History of Present Illness: Patient is a 55-year-old male with multiple medical problems including end-stage renal disease on hemodialysis. Patient has been hospitalized multiple times for missed dialysis. Today patient came to the ER feeling fatigued with poor appetite. Patient admits missing dialysis multiple times. He reports that he has been tired and not able to get a ride. Patient denied any significant chest pain. Mild shortness of breath noted. Patient came to the ER for further evaluation. In the ER patient appeared disheveled and not well kept. Lab significantly abnormal for potassium of 8.3. BN of 21, creatinine 2. GFR 2. Glucose 88. White count 11.8. CBC reviewed. Troponin 0.74. ER spoke to Nephrology. Patient was given hyperkalemia cocktail. Nephrology plans for urgent dialysis. Patient admitted for further evaluation. Patient history of being homeless. Hospital Course: Patient is doing well at this time. Stress test and echocardiogram were unremarkable. At this time patient is stable for discharge with current outpatient follow up with nephrology. Patient will follow up with cardiology and nephrology as an outpatient. Patient will go to [facility] for further care at this time. Anticipate transfer to alf today. Vital Signs/Physical Exam: Temp Pulse Resp BP Pulse Ox 97.4 F 98 H 16 145/82 H 97 08/31/20 16:00 08/31/20 16:00 08/31/20 17:27 08/31/20 17:50 08/31/20 17:27 General: Alert, In no apparent distress, Oriented x3 Laboratory Data at Discharge: WBC 11.7 K/uL (4.3-10.9) H 08/31/20 11:55 Hgb 7.8 g/dL (13.6-17.9) L* 08/31/20 11:55 Hct 24.4 % (39.6-49.0) L 08/31/20 11:55 Plt Count 76 K/uL (152-406) L 08/31/20 11:55 PT 12.4 SECONDS (9.5-12.5) 08/26/20 12:00 INR 1.05 08/26/20 12:00 Sodium 138 mmol/L (136-145) 08/31/20 14:54 Potassium 3.9 mmol/L (3.5-5.1) 08/31/20 14:54 BUN 26 mg/dL (7-18) H D 08/31/20 14:54 Creatinine 4.97 mg/dL (0.55-1.3) H D 08/31/20 14:54 Glucose 129 mg/dL (74-106) H 08/31/20 14:54 Phosphorus 5.5 mg/dL (2.5-4.9) H 08/29/20 05:03 Magnesium 2.3 mg/dL (1.8-2.4) 08/29/20 05:03 Total Bilirubin 0.3 mg/dL (0.2-1.0) 08/31/20 05:55 AST 47 U/L (15-37) H 08/31/20 05:55 ALT 21 U/L (12-78) 08/31/20 05:55 Alkaline Phosphatase 75 U/L (45-117) 08/31/20 05:55 Home Medications: Atorvastatin Calcium [Lipitor*] 20 mg PO BEDTIME 07/16/20 Cyanocobalamin [Vitamin B-12*] 1,000 mcg PO DAILY 07/16/20 Doxazosin [Cardura*] 2 mg PO BEDTIME 07/16/20 Folic Acid 1 mg PO DAILY 07/16/20 Gabapentin 300 mg PO BID 07/16/20 Pantoprazole Sodium [Protonix] 40 mg PO DAILY 07/16/20 Sevelamer Carbonate [Renvela*] 800 mg PO TIDWM 07/16/20 Tamsulosin [Flomax*] 0.4 mg PO BEDTIME 07/16/20 Thiamine HCl 100 mg PO DAILY 07/16/20 Zinc Sulfate [Zinc Sulfate*] 220 mg PO DAILY 07/16/20 carvediloL [Coreg*] 25 mg PO BID 07/16/20 Docusate [Colace Cap*] 100 mg PO BID #60 cap 07/25/20 Mannitol 25% [Mannitol*] 12.5 gm IV EVERY HD PRN vial 07/25/20 Famotidine [Pepcid*] 20 mg PO DAILY #30 tab 08/31/20 Nepro Shake [Nepro*] 237 ml PO DAILY #30 can 08/31/20 Sevelamer Carbonate [Renvela*] 800 mg PO TIDWM #90 tablet 08/31/20 Thiamine HCl [Vitamin B-1*] 100 mg PO DAILY #30 tablet 08/31/20 Ubidecarenone [Coenzyme Q10*] 200 mg PO DAILY #30 cap 08/31/20 traMADol HCL [Ultram*] 50 mg PO Q6H PRN #30 tab 08/31/20 New Medications: Ubidecarenone [Coenzyme Q10*] 200 mg PO DAILY #30 cap Nepro Shake [Nepro*] 237 ml PO DAILY #30 can Famotidine [Pepcid*] 20 mg PO DAILY #30 tab Sevelamer Carbonate [Renvela*] 800 mg PO TIDWM #90 tablet traMADol HCL [Ultram*] 50 mg PO Q6H PRN #30 tab PRN Reason: Pain Scale 5-7 (Moderate) Thiamine HCl [Vitamin B-1*] 100 mg PO DAILY #30 tablet Patient Discharge Instructions: OK TO DC IV AND DC HOME. FOLLOW-UP WITH PRIMARY CARE PROVIDER IN 1-2 WEEKS. FOLLOW-UP WITH NEPHROLOGY for hemodialysis. Please repeat labs including CBC and CMP in 1 week. RETURN TO THE ER IF symptoms worsen. CALL or TEXT DR. OLIVO AT [phone] IF ANY QUESTIONS REGARDING HOSPITAL STAY. PLEASE CALL THE FLOOR AT [phone] IF ANY MEDICATION OR NURSING QUESTIONS. Diet: Renal Activity: Fall precautions Followup: Nakul Garcia DO [ACTIVE - CAN ADMIT] - Thaddeus Llanes MD [ACTIVE - CAN ADMIT] - Unknown,U [Primary Care Provider] - Time spent managing pt's care (in minutes): 35
== END 2020-08-31 18:33 | DRG 640 ==
LOC: ER 10:48 → ERHOLD 15:01 → 2ND 08-30 17:35
PROVIDERS: ADMIT Family Medicine; ATTEND Hospitalist
PROC: 5A1D70Z Performance of Urinary Filtration, Intermittent, Less than 6 Hours Per Day (ICD-10-PCS; 2020-08-26)
PROC: 30233N1 Transfusion of Nonautologous Red Blood Cells into Peripheral Vein, Percutaneous Approach (ICD-10-PCS; principal; 2020-08-27)
DX: E87.5 Hyperkalemia (principal); N18.6 End stage renal disease; R64 Cachexia; I13.2 Hypertensive heart and chronic kidney disease with heart failure and with stage 5 chronic kidney disease, or end stage renal disease; I50.32 Chronic diastolic (congestive) heart failure; N25.81 Secondary hyperparathyroidism of renal origin; E78.5 Hyperlipidemia, unspecified; D63.1 Anemia in chronic kidney disease; D69.6 Thrombocytopenia, unspecified; N25.0 Renal osteodystrophy; K44.9 Diaphragmatic hernia without obstruction or gangrene; F17.200 Nicotine dependence, unspecified, uncomplicated; N40.0 Benign prostatic hyperplasia without lower urinary tract symptoms; K21.9 Gastro-esophageal reflux disease without esophagitis; D63.8 Anemia in other chronic diseases classified elsewhere; R77.8 Other specified abnormalities of plasma proteins; Z91.15 Patient's noncompliance with renal dialysis; Z99.2 Dependence on renal dialysis; Z79.899 Other long term (current) drug therapy; Z59.0 Homelessness; Z68.22 Body mass index [BMI] 22.0-22.9, adult; Z20.822 Contact with and (suspected) exposure to COVID-19
CPT/HCPCS: 36415; 70450; 71045; 78452; 80048; 80053; 80076; 82607; 82728; 83540; 83735; 83874; 83880; 84100; 84466; 84484; 85014; 85018; 85025; 85610; 86317; 86704; 86850; 86900; 86901; 87340; 90935; 93005; 93017; 93306; 97110; 97116; 97161; 97530; 99285; A9500; C9113; J0610; J1644; J1940; J2785; J7050; P9016; Q5105; Q5106; U0003

== ENCOUNTER 2020-09-14 16:14 | Inpatient (IN) | payer OTHER ==
--- OUTSIDE RECORDS SUMMARY | 2020-09-14 16:45 | XMS REPORT | Clinical Summary ---
:1965 Author Organization [facility] Address [address] [place] [address] Care Team Providers Name Role Phone Unavailable [...] Ames MD 02/22/2020 Lab Requisition Lab after 09/14/2019 Immunizations Name Administration Dates Next Due Influenza [...] procedure are in the results section. after 09/14/2019 Results HEMODIALYSIS INPATIENT (06/03/2020 12:01 PM CDT) [...] Pathologist Sig nature % Neutros 62 % [facility] % Lymphs 27 % [facility] % Monos 5 % [facility] % Myelo 3 (H) 0 - 0 % [facility] % Bands 3 0 - 10 % [facility] # Neutros 7.19 (H) 1.78 - 5.38 K/ul [facility] # Lymphs 3.13 1.32 - 3.57 K/ul [facility] # Monos 0.58 0.30 - 0.82 K/uL [facility] # Myelo 0.35 (H) 0.00 - 0.00 K/uL [facility] # Bands 0.35 0.00 - 0.80 K/uL [facility] Total Counted 100 [facility] nRBC (manual) 1 (H) 0 - 0 /100 WBC [facility] WBC Morphology Normal [facility] Large Platelet Present [facility] Anisocytosis 1+ few [facility] Microcytes 1+ few [facility] Artifact Present [facility] Platelet Conc Decreased [facility] Specimen Blood Narrative Performed At Cosmetics Demonstrator ID - Chris Blakelyobar [facility] User comments: Slide comments: Performing Organization Address City/[facility] Phone Number [address] [address] CENTER PT/aPTT (06/03/2020 4:07 AM CDT)Only the most recent of12 resultswithin the time period is included. Pathologist Sig nature Protime 14.1 11.9 - 14.2 seconds [facility] INR 1.12 <=5.90 [facility] PTT 38.0 (H) 22.5 - 36.0 seconds [facility] Specimen Blood Narrative Performed At Effective 01/16/2019: PT Reference Range [facility] Change New: 11.9-14.2 Previous: 11.7-14.7 RECOMMENDED COUMADIN/WARFARIN INR THERAPY RANGES STANDARD DOSE: 2.0-3.0 Includes: PROPHYLAXIS for venous thrombosis, systemic embolization; TREATMENT for venous thrombosis and/or pulmonary embolus. HIGH RISK: Target INR is 2.5-3.5 for patients wiht mechanical heart valves. Performing Organization Address City/State/Zipcode Phone Number [place] [id number] [place] [address] [place] Calcium, Ionized (06/03/2020 4:07 AM CDT)Only the most recent of4 resultswithin the time period is included. [facility] Calcium, Ion 1.17 1.12 - 1.27 mmol/L [facility] pH, Blood 7.44 [facility] Specimen Blood Performing Organization Address City/[facility] Phone Number [facility] [address] [place] [address] [place] CBC with platelet count + automated diff (06/03/2020 4:07 AM CDT)Only the most recent of13 resultswithin the time period is included. Pathologist Sig formerly [facility] WBC 11.6 (H) 3.5 - 10.5 K/L [facility] RBC 2.46 (L) 4.63 - 6.08 M/L [facility] Hemoglobin 7.9 (L) 13.7 - 17.5 GM/DL [facility] Hematocrit 23.2 (L) 40.1 - 51.0 % [facility] MCV 94.3 (H) 79.0 - 92.2 fL [facility] MCH 32.1 25.7 - 32.2 pg [facility] MCHC 34.1 32.3 - 36.5 GM/DL [facility] RDW 15.9 (H) 11.6 - 14.4 % [facility] Platelets 79 (L) 150 - 450 K/CU MM [facility] MPV 10.8 9.4 - 12.4 fL [facility] nRBC 1 (H) 0 - 0 /100 WBC [facility] Specimen Blood Performing Organization Address City/[facility]/Zipcode Phone Number [facility] [address] [place] [address] CENTER Phosphorus (06/03/2020 4:07 AM CDT)Only the most recent of7 resultswithin the time period is included. Pathologist Sig nature Phosphorus 4.3Comment: 2.3 - 4.7 mg/dL [facility] Specimen slightly [facility] Specimen Blood Narrative Performed At Cosmetics Demonstrator ID - [facility] Performing Organization Address [facility] Phone Number [address] [address] [place] Magnesium (06/03/2020 4:07 AM CDT)Only the most recent of12 resultswithin the time period is included. Pathologist Sig nature Magnesium 2.0Comment: Specimen 1.6 - 2.6 mg/dL [facility] hemolyzed [facility] Specimen Blood Narrative Performed At Cosmetics Demonstrator ID - [facility] Performing Organization Address [facility] Phone Number [address] [address] [place] Hepatic function panel (06/03/2020 4:07 AM CDT)Only the most recent of12 resultswithin the time period is included. Protein, Total 6.5Comment: 6.0 - 8.3 [facility] Specimen slightly gm/dL [facility] Albumin 3.3 (L)Comment: 3.5 - 5.0 [facility] Specimen slightly g/dL [facility] Total Bilirubin 0.3Comment: 0.2 - 1.2 [facility] Specimen slightly mg/dL [facility] Bilirubin, Direct 0.1Comment: 0.1 - 0.5 [facility] Specimen slightly mg/dL [facility] Alkaline 71 40 - 150 U/L [facility] Phosphatase [facility] AST 42 (H)Comment: 5 - 34 U/L [facility] Specimen slightly [facility] ALT 14Comment: 6 - 55 U/L [facility] Specimen slightly [facility] Specimen Blood Narrative Performed At Cosmetics Demonstrator EVELYNE - BONILLA Moore [facility] ICAL CENTER Performing Organization Address City/State/Zipcode Phone Number [facility] [address] [place] [address] CENTER Comprehensive metabolic panel (06/03/2020 4:07 AM CDT)Only the most recent of4 resultswithin the time period is included. Protein, Total 6.5Comment: 6.0 - 8.3 [facility] Specimen slightly gm/dL [facility] Albumin 3.3 (L)Comment: 3.5 - 5.0 [facility] Specimen slightly g/dL [facility] Alkaline 71 40 - 150 U/L [facility] Phosphatase [facility] Total Bilirubin 0.3Comment: 0.2 - 1.2 [facility] Specimen slightly mg/dL [facility] Sodium 134 (L) 136 - 145 [facility] meq/L [facility] Potassium 5.1Comment: 3.5 - 5.1 [facility] Specimen slightly meq/L [facility] Chloride 96 (L) 98 - 107 [facility] meq/L [facility] CO2 24 22 - 29 meq/L [facility] BUN 60 (H) 7 - 21 mg/dL [facility] Creatinine 9.02 (H)Comment: 0.57 - 1.25 [facility] Specimen slightly mg/dL [facility] Glucose 89 70 - 105 [facility] mg/dL [facility] Calcium 9.2 8.4 - 10.2 [facility] mg/dL [facility] AST 42 (H)Comment: 5 - 34 U/L [facility] Specimen slightly [facility] ALT 14Comment: 6 - 55 U/L [facility] Specimen [facility] EGFR 6Comment: mL/min/1.73 [facility] ESTIMATED GFR IS sq [facility] NOT ACCURATE MEDICAL CENTER CREATININE CLEARANCE IN PREDICTING GLOMERULAR FILTRATION RATE. ESTIMATED GFR IS NOT APPLICABLE FOR DIALYSIS PATIENTS. Specimen Blood Narrative Performed At Cosmetics Demonstrator ID - BONILLA Moore [facility] ICAL CENTER Performing Organization Address City/[facility]/Zipcode Phone Number [facility] [address] [place] [address] CENTER Prepare Leuko-Red RBC (06/02/2020 11:54 PM CDT)Only the most recent of3 results within the time period is included. Pathologist Sig nature CROSSMATCH COMPATIBLE [place] Unit ABO O Pos [place] UNIT NUMBER [id number] [place] Status TX_TIMEINCHART [place] Blood Bank Product RED BLOOD CELLS [place] PRODUCT CODE [id number] [place] Specimen Other Performing Organization Address City/[facility] Phone Number [place] Basic Metabolic Panel (06/02/2020 3:56 AM CDT)Only the most recent of12 results within the time period is included. Sodium 135 (L) 136 - 145 meq/L [facility] Potassium 4.7 3.5 - 5.1 meq/L [facility] Chloride 98 98 - 107 meq/L [facility] CO2 25 22 - 29 meq/L [facility] BUN 36 (H) 7 - 21 mg/dL [facility] Creatinine 6.44 (H) 0.57 - 1.25 [facility] mg/dL [facility] Glucose 96 70 - 105 mg/dL [facility] Calcium 8.6 8.4 - 10.2 [facility] mg/dL [facility] EGFR 9Comment: ESTIMATED mL/min/1.73 [facility] GFR IS NOT [facility] MEDICAL ACCURATE CENTER CREATININE CLEARANCE IN PREDICTING GLOMERULAR FILTRATION RATE. ESTIMATED GFR IS NOT APPLICABLE FOR DIALYSIS PATIENTS. Specimen Blood Narrative Performed At Cosmetics Demonstrator ID - EDASI [facility] Performing Organization Address City/[facility]/Zipcode Phone Number [address] [id number] CENTER Transfuse Leuko-Red RBC (06/01/2020 10:33 PM CDT)Only the most recent of3 resultswithin the time period is included.POC-Glucose meter (06/01/2020 10:11 PM CDT) POC-Glucose Meter 99 70 - 110 mg/dL [facility]: [facility] MEDICAL : TESTED AT [address], [address] CENTER : Cosmetics Demonstrator/Rough Carpenter ID = [id number] for Jerson Morales Specimen Blood Performing Organization Address [facility] Phone Number [address] [address] CENTER Hepatitis B surface antibody (06/01/2020 7:23 PM CDT) Pathologist Sig nature Hep B S Ab 27.2 (H) <8.0 mIU/mL [facility] Specimen Blood Narrative Performed At Cosmetics Demonstrator ID - DB [facility] Performing Organization Address [facility] Phone Number [address] [address] CENTER Type and screen, automated (05/31/2020 9:50 AM CDT)Only the most recent of2 resultswithin the time period is included. Pathologist Sig nature ABO/RH AUTOMATED O POSITIVE [facility]) [facility] Ab Scrn NEGATIVE [facility] Specimen Blood Performing Organization Address [facility] Phone Number [address] [address] Hemoglobin and hematocrit (05/31/2020 9:50 AM CDT)Only the most recent of6 resultswithin the time period is included. Pathologist Sig nature Hemoglobin 7.2 (L) 13.7 - 17.5 GM/DL [facility] Hematocrit 21.2 (L) 40.1 - 51.0 % [facility] Specimen Blood Narrative Performed At Cosmetics Demonstrator ID - [id number] [facility] Performing Organization Address [facility] Phone Number [facility] [address] [place] [address] [place] Hepatitis panel, acute (05/28/2020 2:19 PM CDT) Pathologist Sig formerly [facility] Hep A IgM Nonreactive Nonreactive [facility] Hep B C IgM Nonreactive Nonreactive [facility] Hepatitis C Ab Reactive (A) Nonreactive [facility] HBsAg Screen Nonreactive Nonreactive [facility] Specimen Blood Narrative Performed At Cosmetics Demonstrator ID - DB [facility] Performing Organization Address [facility] Phone Number [address] [address] CENTER D-dimer (05/28/2020 3:59 AM CDT)Only the most recent of3 resultswithin the time period is included. Pathologist Sig nature D-Dimer, Quant 3.35 (H) <0.50 MG/L FEU [facility] Specimen Blood Narrative Performed At Intended Use: The D-Dimer Assay can be used [facility] to aid in the diagnosis of Deep Vein Thrombosis (DVT) and Pulmonary Embolism Disease (PED). In patients with low pre-test probability, various studies concerning STA Liatest D-dimer test have reported that with a cutoff value of 0.50 MG/L FEU, the Negative Predictive Value (NPV) regarding the exclusion of thrombosis is within 95-100% range. Performing Organization Address [facility] Phone Number [address] [address] [place] REPORT OF PROCEDURE - ENDOSCOPY URL (05/27/2020 8:30 AM CDT) Narrative Performed At This result has an attachment that is no t available. Tissue Exam (05/27/2020 8:20 AM CDT) Case Report Surgical Pathology Report Case: [id number] [facility] Authorizing Provider: Myrna Tijerina MD Collected: 05/27/2020 08:20 AM [facility] Ordering Location: [address] Received: 05/27/2020 02:50 PM [facility]ICAL [facility]ENTER SERVICE Pathologist: Rosa Cisneros MD Specimens: A) - Biopsy, G astric, random biopsies R/O H. pylori B) - Biop sy, Gastroesophageal Junction, random biopsies R/O Islas's DIAGNOSIS A. STOMACH, ENDOSCOPIC MUCOSAL BIOPSIES C 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 GASTROESOPHAGEAL JUNCTION, ENDOSCOPIC MUCOSAL BIOPS IES - SQUAMOCOLUMNAR MUCOSA WITH ACTIVE CARDITIS - NEGATIVE FOR SPECIALIZED ISLAS METAPLASIA Signing Pathologist Direct Phone Line: [phone] COMMENT . [facility] CPT Code(s) 42981 x2, [id number] [facility] CLINICAL HISTORY Anemia [facility] SPECIMEN SOURCE A. Random gastric biopsy, rule out H. Pylori [facility] B. Random GE junction biopsy, rule out Islas's [facility] GROSS DESCRIPTION A. Received in formalin labe led with the patient's name, medical record number and "gastric biopsy" are two pieces of rees-white mucosa- covered tissue that measure 0.5 x 0.3 x 0.2 cm in aggregate. The sp [facility] ecimen is submitted in toto following [...] inflammation is present. The oxyntic mucosa s [facility] DESCRIPTION hows no significant inflamma tion. Warthin stain for Helicobacter pylori is negative. There is no dysplasia or carcinoma. [facility] CENTER B. Section shows gastroesoph ageal junctional mucosa and squamous (eosphageal) mucosa. The squamous (esophageal) component of GE junctional mucosa shows intercellular edema and elongated vascular papilla e and the columnar mucosa sh ows chronic inflammation with rare neutrophils. No goblet cell metaplasia is seen. SPECIAL STUDIES The interpretation of this c ase included the use of immunohistochemistry or special stains. [facility] Control Slides Examined: In -house known positive controls were evaluated along with the test tissue. These control slides run alongside of the patients sample show appropriate staining. [facility] antony and negative controls when available are evaluated Immunohistochemistry technic al testing was performed at [facility], Pathology Laboratory where it was developed and its performance characteristics were determined. It has not be en cleared or approved by [facility] U.S. Food and Drug Administration. The FDA has determined that such clearance or approval is not necessary. The test is used for clinical purposes. It should not be regarde d as investigational or for research. This laboratory is certified under the Clinical Laboratory Improvement Amendments of 1988 (CLIA-88) as qualified to perform high complexity clinical laboratory testing. Gross assessment [facility] 'S was performed at [facility] Pathology, [address] [place] [address], Technical [facility] component was [facility] performed at Pathology, [address] [place] [id number], Professional [facility]' component was [facility] performed at Pathology, [address] [place] [id number], Specimen Tissue - Gastric biopsy sample (specimen ) Tissue specimen (specimen) - Biopsy, Gas troesophageal Junction Performing Organization Address City/State/Zipcode Phone Number [facility] [address] [place] [address] CENTER Manual Differential (05/27/2020 3:40 AM CDT) % Neutros (manual) 63 % [facility] % Lymphs (manual) 17 % [facility] % Monos (manual) 4 % [facility] % Eos (manual) 3 % [facility] % Baso (manual) 1 % [facility] % Metamyelo (manual) 3 (H) 0 - 0 % [facility] % Bands (manual) 3 0 - 10 % [facility] % Atypical Lymphs 6 (H) 0 - 0 % [facility] # Neutros (manual) 7.12 1.80 - 8.00 [facility] # Lymphs (manual) 1.92 1.48 - 4.50 [facility] # Monos (manual) 0.45 0.00 - 1.30 [facility] # Eos (manual) 0.34 0.00 - 0.50 [facility] # Baso (manual) 0.11 0.00 - 0.20 [facility] # Metamyelo (manual) 0.34 (H) 0.00 - 0.00 [facility] # Bands (manual) 0.3 0.0 - 0.8 KL [facility] # Atypical Lymphs 0.68 (H) 0.00 - 0.00 [facility] Total Counted 100 [facility] Bands plus Segmented 7.[address] [facility] nRBC (manual) 1 (H) 0 - 0 /100 WBC [facility] WBC Morphology Normal [facility] Platelet Morphology Normal [facility] Anisocytosis 1+ few [facility] Ovalocytes 1+ few [facility] Specimen Blood Performing Organization Address City/[facility]/Zipcode Phone Number [address] [address] CENTER TRANSFUSION SERVICE REPORT - SCAN (05/26/2020 6:21 PM CDT)Only the most recent of2 resultswithin the time period is included. Narrative Performed At This result has an attachment that is no t available. Hepatitis C PCR, Quantitative (05/26/2020 12:26 PM CDT) HCV PCR, HCV RNA not HCV RNA not [facility] Quantitative detected detected [facility] Specimen Blood Narrative Performed At This test uses a Real-Time Polymerase Chain [facility] Reaction (RT-PCR) methodology and was performed using [employer] Ampliprep/[employer] TaqMan HCV test kit version 2.0 ([employer]). Reportable range for this assay is 15 - 100,000,000 IU per mL (1.18 - 8.00 Log IU/mL). Performing Organization Address City/[facility]/Zipcode Phone Number [address] [address] CENTER TSH/Free T4 If Indicated (05/25/2020 7:14 PM CDT) Pathologist Sig nature TSH 3.581 0.350 - 4.940 uIU/mL [facility] Specimen Blood Narrative Performed At Cosmetics Demonstrator EVELYNE Crump [facility] MED ICAL CENTER Performing Organization Address City/State/Zipcode Phone Number [facility] [address] [place] [address] CENTER Prothrombin time/INR (05/25/2020 11:42 AM CDT) Pathologist Sig nature Protime 14.6 (H) 11.9 - 14.2 seconds [facility] INR 1.17 <=5.90 [facility] Specimen Blood Narrative Performed At Effective 01/16/2019: PT Reference Range [facility] Change New: 11.9-14.2 Previous: 11.7-14.7 RECOMMENDED COUMADIN/WARFARIN INR THERAPY RANGES STANDARD DOSE: 2.0-3.0 Includes: PROPHYLAXIS for venous thrombosis, systemic embolization; TREATMENT for venous thrombosis and/or pulmonary embolus. HIGH RISK: Target INR is 2.5-3.5 for patients wiht mechanical heart valves. Performing Organization Address City/[facility] Phone Number [address] [address] CENTER Lactate dehydrogenase (LDH) (05/25/2020 11:42 AM CDT) Pathologist Sig nature LDH 341 (H) 125 - 220 U/L [facility] Specimen Blood Narrative Performed At Cosmetics Demonstrator ID - JR Crump [facility] MED ICAL CENTER Performing Organization Address [facility] Phone Number [address] [address] CENTER Peripheral Blood Smear - Path Review (05/25/2020 3:42 AM CDT) Pathologist Review Macrocytic anemia, [facility] anisopoikilocytosis, MEDICAL CENTER with rare schistocytes (0.8 per HPF). WBCs with mild left shift, including occasional myeloid precursors, no blasts seen. Few hypersegmented neutrophils. Thrombocytopenia with unremarkable morphology. Pathologist: Maddie Leon [facility] D[facility]ouza M.D [facility] Specimen Blood Performing Organization Address City/[facility] Phone Number [address] [address] CENTER Troponin I (05/25/2020 3:42 AM CDT)Only the most recent of5 resultswithin the time period is included. Pathologist Sig nature Troponin I 0.46 (HH) 0.00 - 0.03 ng/mL [facility] Specimen Blood Narrative Performed At Troponin I (TnI) levels must be interpreted [facility] in the context of [...] acidosis, acute neurological disease, and persistent tachyarrhythmia. Cosmetics Demonstrator ID - DB Performing Organization Address [facility]/Zipcode Phone Number [address] [address] CENTER Lactic acid, venous (05/25/2020 3:42 AM CDT)Only the most recent of3 results within the time period is included. Pathologist Sig nature Lactate, Venous 0.42 (L) 0.50 - 2.[address] [facility] mmol/L [facility] Specimen Blood Narrative Performed At Cosmetics Demonstrator ID - DB [facility] Performing Organization Address [facility] Phone Number [address] [address] CENTER Reticulocyte count (05/25/2020 3:42 AM CDT) Pathologist Sig nature % Retic 1.5 0.5 - 1.8 % [facility] Specimen Blood Narrative Performed At Cosmetics Demonstrator ID - [id number] [facility] Performing Organization Address [facility]/Zipcode Phone Number [address] [address] CENTER Iron, TIBC, % sat. (without ferritin) (05/25/2020 3:41 AM CDT) Pathologist Sig nature Iron 118.0 40.0 - 160.[address] [facility] ug/dL [facility] TIBC 170 (L) 250 - 450 ug/dL [facility] Iron % Saturation 69 (H) 20 - 55 % [facility] Specimen Blood Narrative Performed At Cosmetics Demonstrator ID - MARQUIS [facility] Performing Organization Address [facility] Phone Number [address] [address] CENTER Haptoglobin (05/25/2020 3:41 AM CDT) Pathologist Sig nature Haptoglobin 172 14 - 258 mg/dL [facility] Specimen Blood Narrative Performed At Cosmetics Demonstrator ID - JR Crump [facility] Performing Organization Address [facility] Phone Number [address] [address] CENTER Ferritin (05/25/2020 3:41 AM CDT) Pathologist Sig nature Ferritin 10,294.32 (H) 5.00 - 275.[address] [facility] ng/mL [facility] Specimen Blood Narrative Performed At Cosmetics Demonstrator ID - MARQUIS [facility] Performing Organization Address [facility] Phone Number [address] [address] [place] XR chest 1 view portable / bedside [...] 4:42:11 Performing Organization Address City/State/Zipcode Phone Number [place] US testicular (scrotum) (05/25/2020 1:24 AM CDT) Specimen Narrative Performed At FINAL REPORT [place] TECHNIQUE: Grayscale, color Doppler, and spectral Doppler [...] Spe cifically, no testicular torsion. Signed: Kwasi eVrde MD Report Verified Date/Time: 05/25/2020 08:58:57 Procedure [...] Pathologist Sig nature HBsAg Screen Nonreactive Nonreactive [facility] Specimen Blood Narrative Performed At Specimen is considered negative for HBsAg. [facility] Performing Organization Address City/[facility] Phone Number [facility] [address] [place] [address] CENTER Drug Test, General Toxicology, Urine (05/24/2020 6:40 PM CDT) Acetone(Quest) None Detected [facility] Methanol([facility]) None Detected [facility] Drug Test,Genrl see note [facility] Tox,U Comment: [facility]POR[facility] The following compounds were detected: Cotinine (Nicotine Metabolite) Morphine Acetaminophen Hydromorphone Hydrocodone Benzoylecgonine (Cocaine Metabolite) Cyclobenzaprine For a list of compounds and limits of detection go to: http://education.Drug123.com.Smart Cube/faq/FRM663 ISOPROPANOL None Detected [facility] ETHANOL None Detected [facility] Comment: INC[facility]POR[facility] Volatile Limit of Detectio n: 5 mg/dL This test was developed and its analytical performance characteristics have been determined by [facility] [place] [place]. It has not been cleared or approved by the U.S. Food and Drug Administration. This assay has been validated pursuant to the CLIA regulations and is used for clinical purposes. Specimen Urine Narrative Performed At Performing Lab [facility] [address] [place], [address] [facility] [place] [address] Mckenna Lopez MD, PhD Performing Organization Address City/State/Zipcode Phone Number [facility] [place] [address] B-type Natriuretic Factor (BNP) (05/24/2020 5:32 PM CDT)Only the most recent of 2 resultswithin the time period is included. Pathologist Sig donnell BNP 202 (H) 0 - 100 pg/mL [facility] Specimen Blood Narrative Performed At Cosmetics Demonstrator ID - [facility] CENTER Performing Organization Address City/State/Zipcode Phone Number [facility] [address] [place] [address] CENTER 2D Echo W/Doppler(CW/PW/Color) (05/24/2020 9:17 AM CDT) Pathologist Sig nature Ejection Fraction [facility] Pixable [facility] Specimen Narrative Performed At Transthoracic Echocardiography Report (T TE) [facility] Demographics Patient Name THIERRY PADILLA Date of Study 05/24/2020 KYLIE Gender Male Visit Number [id number] Race Unknown Room Number 7217 Number Date of 1965 Referring Physician 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 Owen Valdivia Interpreting Renato barr, Physician MD [...] Study 05/24/2020 KYLIE Gender Male Visit Number [id number] Race Unknown Room N [facility] 7217 Number Date of 1965 Referr ing Physician Age 55 year(s) Sonogr aphrhea [employer] Team Leader Owen Burdenp reting Greg Roche MD Procedure [...] T CI: 3.06 l/min/m^2 Performing Organization Address City/[facility]/Zipcode Phone Number [facility] MKCKESSON CPACS ABORH, manual (05/24/2020 3:57 AM CDT) Pathologist Sig nature ABO Grouping O [facility] DICAL [place] Rh Factor POS [facility] Specimen Blood Performing Organization Address City/[facility] Phone Number [address] [address] Vitamin B12 and Folate (05/24/2020 3:48 AM CDT) Pathologist Sig formerly [facility] Vitamin B12 237 213 - 816 pg/mL [facility] Folate 4.00 (L) >=7.00 ng/mL [facility] Specimen Blood Narrative Performed At Cosmetics Demonstrator ID - [place] [facility] Performing Organization Address [facility] Phone Number [address] [address] [place] HIV-1 Antigen with HIV-1/2 Antibody (05/24/2020 3:48 AM CDT) Pathologist Sig [facility] HIV-1 Antigen with Nonreactive Nonreactive [facility] HIV 1&2 Antibody [facility] Specimen Blood Performing Organization Address [facility] Phone Number [address] [phone] [place] Hemoglobin A1c (05/24/2020 3:48 AM CDT) Pathologist Sig formerly [facility] Hemoglobin A1C 5.8 4.3 - 6.1 % [facility] Specimen Blood Performing Organization Address [facility] Phone Number [address] [address] CENTER Blood Culture - Routine (Right Venipuncture) (05/24/2020 3:34 AM CDT)Only the most recent of2 resultswithin the time period is included. Pathologist Sig nature Result No growth in 5 days [facility] Specimen Blood - Entire right upper arm (body str ucture) Performing Organization Address City/State/Zipcode Phone Number [facility] [address] [place] [address] CENTER SARS-CoV2/RT-PCR (Symptomatic ONLY) (05/24/2020 2:33 AM CDT)Only the most recent of2 resultswithin the time period is included. SARS-COV2/RT-PCR Negative Not Detected, [facility] Negative, See [facility] external report CENTER for linked test SARS-COV-2 [facility] PERFORMING LAB [facility] Specimen Other - Nasopharyngeal wall structure (b alicia structure) Narrative Performed At Negative results do not preclude SARS-CoV-2 [facility] infection and should not [...] the Act. Fact Sheet for Healthcare Providers: https://www.[employer].Smart Cube/Documents/Xpert%20Xpre ss%20SARS%20CoV-2/Fact%20Sheets/302-2287%20SAR S-COV-2%20HEALTHCARE%20PROVIDERS%20FACT%20SHEE T.pdf Fact Sheet for Healthcare Patients: https://www.[employer].Smart Cube/Documents/Xpert%20Xpre ss%20SARS%20CoV-2/Fact%20Sheets/3023801%20SAR S-COV-2%20PATIENT%20FACT%20SHEET.pdf Performing Laboratory: [address] [place] [address] Performing Organization Address City/[facility] Phone Number [address] [phone] [place] Blood gas, venous (05/24/2020 1:28 AM CDT) Pathologist Sig nature pH, Raquel 7.27 (L) 7.32 - 7.42 [facility] pCO2, Raquel 26 (L) 41 - 51 mmHg [facility] pO2, Raquel 63 (H) 25 - 40 mmHg [facility] O2 Sat, Raquel 89.7 (H) 40.0 - 70.0 % [facility] HCO3, Raquel 12 (L) 21 - 29 mmol/L [facility] Base Excess, Raquel -14.0 (L) -2.0 - 3.0 [facility] mmol/L [facility] Patient Temperature 37.0 C [facility] FIO2 100.0 % [facility] Specimen Blood Performing Organization Address City/[facility] Phone Number [address] [phone] [place] EKG-SCANNED (05/24/2020) Narrative Performed At This result has an attachment that is no t available. Ordered by an unspecified provider. after 09/14/2019 Advance Directives For more information, please contact: [phone] Code Status Date Activated Date Inactivated Comments Full Code 05/24/2020 1:02 AM 06/03/2020 4:31 PM This code status was determined by: Patient
--- OUTSIDE RECORDS SUMMARY | 2020-09-14 16:49 | XMS REPORT | Continuity of Care Document ---
:1965 Author Organization [facility] t Address [address] [place] [address] Care Team Providers Name Role Phone Kwaku Miguel MD Attending Clinician [phone] Donna Nicholas MD Attending Clinician David LOWERY, P. Attending Clinician Akilah Matthews MD Attending Clinician Mustapha LOWERY, Shea Attending Clinician Akbar Monsalve MD Attending Clinician Unavailable Ariana LOWREY, Yaakov Attending Clinician KWAKU MIGUEL Attending Clinician Unavailable Verónica Delgadillo DO Attending Clinician KWAKU MIGUEL Admitting Clinician Unavailable Payers Payer Name Policy Type Policy Effective Date Expiration Date Sour ce Number MEDICAREMEDICARE A [id number] 2020 [place] [id number] 2019- 00:00:00 - Medical PresentMedicare Center MEDICAIDMEDICAID OF [id number] 2020 [place] [id number]/ 00:00:00 - Medical 0-PresentMedicaid Center Problems Condition [...] Allergy 0-04 [facility] - [facility]: [facility] 00 [place] Social History Social Habit Start Date Stop Date Quantity Comments Source Sex Assigned At [facility] Smoking Status Start Date Stop Date Source Former smoker 2020-05-27 00:00:00 2020-05-27 00:00:[address] [facility] Medications Ordered Filled Start Stop Current Ordering Indication Dosage Frequency Signature Comments Components Source Medication Medication Date Date Medication? Clinician (SIG) Name Name cyanocobala 2019-08 No 1000ug QD Take [address] min, 0-14 10-14 tablet [facility] - vitamin 00:00: 23:59 (1,000 mcg Med ical B-12, 1000 00 :00 total) by Cent er MCG tablet mouth daily. folic acid 2019-08 No 1mg QD Take [address] [facility] (FOLVITE) 1 0-14 10-14 tablet (1 Tosha kes - MG tablet 00:00: 23:59 mg total) Me dical 00 :00 by mouth Center daily. sevelamer 2019-08- No 1600mg Take [address] [facility] [address] (RENVELA) 0-14 [...] Center tablet (two) times daily. atorvastati 2019-08- No 20mg QD Take [address] [facility] [facility] (LIPITOR) 0-13 10-13 tablet (20 L ukes - 20 MG 00:00: 23:59 mg total) Medica l tablet 00 :00 by mouth Center nightly. carvediloL 2019-08 No 25mg Q.5D Take [address] (COREG) [...] Source Name Name Influenza Four-QIV 2020-05-25 Completed [facility] PF 3YR+ 00:00:00 Medical Center Vital Signs Vital Name Observation Time Observation Value Comments Source Systolic blood 2020-06-03 11:45:00 129 mm[Hg] [facility] Diastolic blood 2020-06-03 11:45:00 81 mm[Hg] [facility] Heart rate 2020-06-03 11:45:00 80 /min [facility] Body temperature 2020-06-03 11:45:00 36.72 Gissell [facility] Respiratory rate 2020-06-03 11:45:00 19 /min [facility] Oxygen saturation in 2020-06-03 11:45:00 97 /min [facility] Arterial blood by Medical Ce nter Pulse oximetry Body weight 2020-06-03 04:52:00 69.9 kg [facility] BMI 2020-06-03 04:52:00 24.88 kg/m2 [facility] Body height 2020-05-24 00:30:00 167.6 cm [facility] Procedures Procedure Date / Time Performed Performing Clinician Sourc e HEMODIALYSIS INPATIENT 2020-06-03 12:01:00 Marlo Hernandez [facility] MAGNESIUM 2020-06-03 04:07:[address] [facility] PT/APTT 2020-06-03 04:07:00 Kanwal Sonido [facility] HEPATIC FUNCTION PANEL 2020-06-03 04:07:00 Kanwal Sonido [facility] CALCIUM, IONIZED 2020-06-03 04:07:00 David [facility] COMPREHENSIVE METABOLIC 2020-06-03 04:07:00 David [facility] PHOSPHORUS 2020-06-03 04:07:00 David [facility] CBC W/PLT COUNT & AUTO 2020-06-03 04:07:00 Sonido Schofield [facility] (CELLAVISION MANUAL DIFF) 2020-06-03 04:07:00 Sonido Schofield [facility] PREPARE LEUKO-REDUCED RBC 2020-06-02 23:54:00 Delia Matthews [facility] BASIC METABOLIC PANEL (7) 2020-06-02 03:56:00 Sonido Schofield [facility] MAGNESIUM 2020-06-02 03:56:[address] [facility] PT/APTT 2020-06-02 03:56:[address] [facility] HEPATIC FUNCTION PANEL 2020-06-02 03:56:00 Sonido Schofield [facility] CBC W/PLT COUNT & AUTO 2020-06-02 03:56:00 Sonido Schofield [facility] (CELLAVISION MANUAL DIFF) 2020-06-02 03:56:00 Sonido Schofield [facility] TRANSFUSE LEUKO-REDUCED 2020-06-01 22:33:30 Delia Matthews [facility] RED BLOOD CELLS [facility] POCT-GLUCOSE METER 2020-06-01 22:11:00 Delia Matthews [facility] HEPATITIS B SURFACE 2020-06-01 19:23:00 [facility] BASIC METABOLIC PANEL (7) 2020-06-01 04:32:00 Sonido Schofield [facility] MAGNESIUM 2020-06-01 04:32:00 [facility] PT/APTT 2020-06-01 04:32:00 [facility] HEPATIC FUNCTION PANEL 2020-06-01 04:32:00 [facility] CBC W/PLT COUNT & AUTO 2020-06-01 04:32:00 [facility] (CELLAVISION MANUAL DIFF) 2020-06-01 04:32:00 [facility] HEMOGLOBIN AND HEMATOCRIT 2020-05-31 09:50:00 Cassie [facility] TYPE AND SCREEN, 2020-05-31 09:50:00 Delia Matthews [facility] BASIC METABOLIC PANEL (7) 2020-05-31 05:34:[address] [facility] MAGNESIUM 2020-05-31 05:34:00 [facility] PT/APTT 2020-05-31 05:34:00 [facility] HEPATIC FUNCTION PANEL 2020-05-31 05:34:00 [facility] CBC W/PLT COUNT & AUTO 2020-05-31 05:34:00 [facility] (CELLAVISION MANUAL DIFF) 2020-05-31 05:34:00 [facility]OLIC PANEL (7) 2020-05-30 04:39:[address] [facility] MAGNESIUM 2020-05-30 04:39:00 [facility] PT/APTT 2020-05-30 04:39:00 [facility] HEPATIC FUNCTION PANEL 2020-05-30 04:39:00 Sergema [facility] CBC W/PLT COUNT & AUTO 2020-05-30 04:39:00 Demargema Replaced by [facility] (CELLAVISION MANUAL DIFF) 2020-05-30 04:39:[address] [facility] BASIC METABOLIC PANEL (7) 2020-05-29 04:50:00 SerSonido ribeiro [facility] MAGNESIUM 2020-05-29 04:50:[address] [facility] PT/APTT 2020-05-29 04:50:[address] [facility] HEPATIC FUNCTION PANEL 2020-05-29 04:50:00 Sergema [facility] PHOSPHORUS 2020-05-29 04:50:00 Christofer [facility] CBC W/PLT COUNT & AUTO 2020-05-29 04:50:00 Sergema [facility] (CELLAVISION MANUAL DIFF) 2020-05-29 04:50:[address] [facility] HEPATITIS PANEL, ACUTE 2020-05-28 14:19:00 Delia Matthews [facility] D-DIMER 2020-05-28 03:59:00 Delia Matthews [facility] BASIC METABOLIC PANEL (7) 2020-05-28 03:59:00 SerSonido ribeiro [facility] MAGNESIUM 2020-05-28 03:59:[address] [facility] PT/APTT 2020-05-28 03:59:00 [facility]EL 2020-05-28 03:59:00 Sergema [facility] COMPREHENSIVE METABOLIC 2020-05-28 03:59:[address] [facility] CBC W/PLT COUNT & AUTO 2020-05-28 03:59:00 SerSonido ribeiro [facility] DIFFERENTIAL [facility] (CELLAVISION MANUAL DIFF) 2020-05-28 03:59:00 Sonido Schofield [facility] REPORT OF PROCEDURE - 2020-05-27 08:30:04 Myrna Monsalve [facility] ENDOSCOPY [facility] TISSUE EXAM 2020-05-27 08:20:00 Myrna Monsalve [facility] UPPER ENDOSCOPY,BIOPSY 2020-05-27 07:59:00 Bello [facility] BASIC METABOLIC PANEL (7) 2020-05-27 03:40:00 Sonido Schofield [facility] MAGNESIUM 2020-05-27 03:40:[address] [facility] PT/APTT 2020-05-27 03:40:[address] [facility] HEPATIC FUNCTION PANEL 2020-05-27 03:40:00 Kanwal Sonido [facility] S [facility] CBC W/PLT COUNT & AUTO 2020-05-27 03:40:00 Kanwal Sonido [facility] DIFFERENTIAL [facility] (MANUAL DIFFERENTIAL) 2020-05-27 03:40:00 Delia Matthews [facility] TRANSFUSION SERVICE 2020-05-26 18:21:41 Provider, Christopher [facility] REPORT - SCAN [facility] HEPATITIS C PCR, 2020-05-26 12:26:00 Vee Hernandez [facility] D-DIMER 2020-05-26 12:26:00 Vee Hernandez [facility] BASIC METABOLIC PANEL (7) 2020-05-26 03:50:00 SerSonido ribeiro [facility] MAGNESIUM 2020-05-26 03:50:00 SerSonido ribeiro [facility] PHOSPHORUS 2020-05-26 03:50:[address] [facility] PT/APTT 2020-05-26 03:50:[address] [facility] HEPATIC FUNCTION PANEL 2020-05-26 03:50:00 Sergema [facility] CALCIUM, IONIZED 2020-05-26 03:50:00 Sergema [facility] COMPREHENSIVE METABOLIC 2020-05-26 03:50:[address] [facility] CBC W/PLT COUNT & AUTO 2020-05-26 03:50:00 [facility] (CELLAVISION MANUAL DIFF) 2020-05-26 03:50:[address] [facility] PREPARE LEUKO-REDUCED RBC 2020-05-25 23:54:[address] [facility] TSH/FREE T4 IF INDICATED 2020-05-25 19:14:00 Vee Hernandez [facility] HEMOGLOBIN AND HEMATOCRIT 2020-05-25 19:14:00 Layo Ley [facility] TRANSFUSION SERVICE 2020-05-25 18:01:32 Christopher Rivas [facility] HEMOGLOBIN AND HEMATOCRIT 2020-05-25 11:42:00 Layo Ley [facility] LACTATE DEHYDROGENASE 2020-05-25 11:42:00 [place] [facility] ([facility]) Psychiatric PROTHROMBIN TIME/INR 2020-05-25 11:42:00 [place] [facility] D-DIMER 2020-05-25 11:42:00 [place] [facility] CBC W/PLT COUNT & AUTO 2020-05-25 11:42:00 Av Layo [facility] DIFFERENTIAL Psychiatric TROPONIN I 2020-05-25 03:42:[address] [facility] MAGNESIUM 2020-05-25 03:42:[address] [facility] PHOSPHORUS 2020-05-25 03:42:[address] [facility] HEPATIC FUNCTION PANEL 2020-05-25 03:42:00 Kanwal [facility] CALCIUM, IONIZED 2020-05-25 03:42:00 Sergema [facility] LACTIC ACID, VENOUS 2020-05-25 03:42:00 Kanwal [facility] COMPREHENSIVE METABOLIC 2020-05-25 03:42:00 [facility] RETICULOCYTE COUNT 2020-05-25 03:42:00 [facility] PERIPHERAL BLOOD SMEAR - 2020-05-25 03:42:00 Baal Genao [facility] - PATHOLOGIST REVIEW Medical [facility] CBC W/PLT COUNT & AUTO 2020-05-25 03:42:00 Kanwal [facility] DIFFERENTIAL [facility] (CELLAVISION MANUAL DIFF) 2020-05-25 03:42:[address] [facility] PT/APTT 2020-05-25 03:41:[address] [facility] IRON, TIBC, % SAT. 2020-05-25 03:41:00 [facility]OUT FERR[facility]IN[facility] 2020-05-25 03:41:00 [facility] HAPTOGLOBIN 2020-05-25 03:41:00 [facility] XR CHEST 1 VIEW 2020-05-25 02:00:00 [facility] PORTABLE/BEDSIDE Psychiatric US TESTICULAR (SCROTUM) 2020-05-25 01:24:00 [facility] TRANSFUSE LEUKO-REDUCED 2020-05-25 01:22:54 Kanwal [facility] - RED BLOOD CELLS [facility] PREPARE LEUKO-REDUCED RBC 2020-05-24 21:55:00 Sonido Schofield [facility] HEMOGLOBIN AND HEMATOCRIT 2020-05-24 20:40:00 Layo Ley [facility] HEPATITIS B SURFACE 2020-05-24 20:40:00 Marlo Hernandez [facility] DRUG TEST, GENERAL 2020-05-24 18:40:00 Layo Ley [facility] - TOXICOLOGY, URINE Psychiatric TROPONIN I 2020-05-24 17:32:[address] [facility] B-TYPE NATRIURETIC FACTOR 2020-05-24 17:32:00 Sonido Schofield [facility] (BNP) [facility] TROPONIN I 2020-05-24 12:30:[address] [facility] HEMOGLOBIN AND HEMATOCRIT 2020-05-24 12:30:00 Layo Ley [facility] BASIC METABOLIC PANEL (7) 2020-05-24 12:30:00 Layo Ley [facility] 2D ECHO W/ DOPPLER 2020-05-24 09:17:10 Santy Cardona [facility] (CW/PW/COLOR) [facility] HEMOGLOBIN AND HEMATOCRIT 2020-05-24 08:02:00 Adela Miguel [facility] TROPONIN I 2020-05-24 08:02:[address] [facility] BASIC METABOLIC PANEL (7) 2020-05-24 08:02:00 Layo Ley [facility] PHOSPHORUS 2020-05-24 08:02:00 José Manuel Leyegan [facility] TRANSFUSE LEUKO-REDUCED 2020-05-24 07:31:48 Sonido Schofield [facility] RED BLOOD CELLS [facility] LACTIC ACID, VENOUS 2020-05-24 03:57:00 Kanwal [facility] ABORH, MANUAL 2020-05-24 03:57:00 Lionel Vidhi Anne [facility] CALCIUM, IONIZED 2020-05-24 03:56:00 Kanwal [facility] BASIC METABOLIC PANEL (7) 2020-05-24 03:48:00 Kanwal [facility] I [facility] MAGNESIUM 2020-05-24 03:48:[address] [facility] PHOSPHORUS 2020-05-24 03:48:[address] [facility] PT/APTT 2020-05-24 03:48:[address] [facility] HEPATIC FUNCTION PANEL 2020-05-24 03:48:00 Kanwal [facility] HEMOGLOBIN A1C 2020-05-24 03:48:00 Santy [facility] HIV-1 ANTIGEN WITH 2020-05-24 03:48[facility]2 ANTIBODY [facility] VITAMIN B12 AND FOLATE 2020-05-24 03:48:00 [facility] W/[facility]T COUNT & AUTO 2020-05-24 03:48:00 Kanwal [facility] DIFFERENTIAL [facility] BLOOD CULTURE 2020-05-24 03:34:[address] [facility] PT/APTT 2020-05-24 02:59:[address] [facility] TYPE AND SCREEN, 2020-05-24 02:59:00 Sergema [facility] AUTOMATED [facility] BLOOD CULTURE 2020-05-24 02:58:[address] [facility] SARS-COV2/RT-PCR ([facility] & 2020-05-24 02:33:00 Sergema [facility] - REF LABS) [facility] XR CHEST 1 VIEW 2020-05-24 01:37:00 Sonido Schofield [facility] - PORTABLE/BEDSIDE [facility] BASIC METABOLIC PANEL (7) 2020-05-24 01:29:[address] [facility] MAGNESIUM 2020-05-24 01:29:00 Kanwal Replaced by [facility] PHOSPHORUS 2020-05-24 01:29:[address] [facility] HEPATIC FUNCTION PANEL 2020-05-24 01:29:00 Demarprovidence hospitalbelgica Replaced by [facility] S t [facility] LACTIC ACID, VENOUS 2020-05-24 01:29:00 [facility] L ukes [facility] TROPONIN I 2020-05-24 01:29:[address] [facility] CBC W/PLT COUNT & AUTO 2020-05-24 01:29:00 Dem[facility]prov[facility] hospitalbelgica Replaced by [facility] S t [facility] - DIFFERENTIAL [facility] BLOOD GAS, VENOUS 2020-05-24 01:28:00 [facility] B-TYPE NATRIURETIC FACTOR 2020-05-24 01:27:00 [facility] (BNP) [facility] REPORT OF PROCEDURE - 2020-05-24 00:00:00 Provider, Default [facility] - ENDOSCOPY SCAN Scanning [facility] SARS-COV2/RT-PCR ([facility] & 2020-02-22 10:34:00 [facility] Plan of Care Planned Activity Planned Date Details Comments Source Future Scheduled 2020-08-[address] [facility] - Test 00:00:00 (12+) [code = Medical Center DEPRESSION SCREENING (12+)] Future Scheduled 2020-05-[address] [facility] - Test 00:00:00 (WELCOME TO MEDICARE) [facility] [code = Medicare IPPE (WELCOME TO MEDICARE)] Future Scheduled [address] [facility] - Test 00:00:00 (procedure) [code = Medical Center 87061018] Future Scheduled [address] HE[address]ITIS B VACCINE [facility] - Test 00:00:00 (1 of 3 - Risk [facility] Cent[facility] r Recombivax 3-dose series) [code = HEPATITIS B VACCINE (1 of 3 - Risk Recombivax 3-dose series)] Future Scheduled 1965 Screening for ANALILIA Stanton es - Test 00:00:00 malignant neoplasm of [facility] colon (procedure) [code = 718650998] Encounters Start End Encounter Admission Attending Care Care Encounter Source Date/Time Date/Time Type Type Clinicians Facility Department ID 2020-05-08 2020-05-08 Emergency [facility] [id number] 14:38:00 18:28:00 Renata Ramos [id number] [place] [id number] [place] [id number] Results Test Description Test Time Test [...] K/CU MM L MPV (test code = 82040-0) 10.8 fL 9.4-12.4 nRBC (test code = 413) 1 0- 0 /100 WBC H Lab Interpretation (test code = 97435-6) [facility] [id number] 10:02:00 Test Item Value Reference Range Interpretation [...] = 3438) FANTA (test code = FANTA) Collections Curator ID - Chris Mtz comments: Slide comments: Lab Interpretation (test Abnormal code = 72641-8) [facility] W/PLT COUNT & AUTO [id number] 10:02:00 Test Item Value Reference Range Interpretation [...] CONCENTRATION Decreased (CELLAVISION)(BEAKER) (test code = 3438) Collections Curator ID - Chris Bibi comments: Slide comments:Comprehensive metabolic [id number] 05:15:00 Test Item Value Reference Range Interpretation Comments Protein, Total (test 6.5 6.0- 8.3 gm/dL Speci men slightly code = 2885-2) hemolyzed Albumin (test code = 3.3 g/dL 3.5-5 L Specime n slightly 36829-5) hemolyzed Alkaline Phosphatase 71 U/L 40-150 (test [...] Calcium (test code = 9.2 mg/dL 8.4-10.2 39576-7) AST (test code = 42 U/L 5-34 H Specimen sl ightly 1920-8) hemolyzed ALT (test code = 14 U/L 6-55 Specimen sl ightly 1742-6) hemolyzed EGFR (test code = 6 mL/min/1.73 [place] [address]-0) NOT ACCURATE CREATININE CLEARANCE IN PREDICTING GLOMERULAR FILTRATION RATE . ESTIMATED GFR I S NOT APPLICABLE FOR DIALYSIS PATIENTS. FANTA (test code = FANTA) Collections Curator EVELYNE - BONILLA M Lab Interpretation Abnormal (test code = 17022-7) [facility] [id number] 05:15:00 Test Item Value Reference Range Interpretation [...] S NOT APPLICABLE FOR DIALYSIS PATIEN TS. Collections Curator ID - BONILLA MHepatic function [id number] 05:03:00 Test Item Value Reference Range Interpretation Comments Protein, Total (test 6.5 6.0- 8.3 gm/dL Speci men code = 2885-2) slightly hemolyzed Albumin (test code = 3.3 g/dL 3.5-5 L [place] n 96267-0) slightly hemolyzed Total Bilirubin (test 0.3 mg/dL [...] slightly hemolyzed FANTA (test code = FANTA) Collections Curator ID - BONILLA Lab Interpretation Abnormal (test code = 63359-4) [facility] Hospital[facility]esium2020-10-14 05:03:00 Test Item Value Reference Range Interpretation Comments Magnesium (test code = 2.0 mg/dL 1.6-2.6 Speci men 68773-9) slightly hemolyzed FANTA (test code = FANTA) Collections Curator ID - [facility] Lab Interpretation Normal (test code = 21880-6) [facility] Hospital[facility]osphorus2020-10-14 05:03:00 Test Item Value Reference Range Interpretation Comments Phosphorus (test code 4.3 mg/dL 2.3-4.7 Specim en = 2777-1) slightly hemolyzed FANTA (test code = FANTA) Collections Curator ID - BONILLA M Lab Interpretation Normal (test code = 83992-4) [facility]IUM2020-10-14 05:03:00 Test Item Value Reference Range Interpretation Comments MAGNESIUM (BEAKER) 2.0 mg/dL 1.6-2.6 Specimen slightly (test code = 627) hemolyzed Collections Curator ID - BONILLA [id number] 05:03:00 Test Item Value Reference Range Interpretation Comments PHOSPHORUS (BEAKER) 4.3 mg/dL 2.3-4.7 Specimen slightly (test code = 604) hemolyzed Collections Curator ID - BONILLA MHEPATIC FUNCTION [id number] 05:03:00 Test Item Value Reference Range Interpretation [...] Specimen slightly (test code = 347) hemolyzed Collections Curator ID - BONILLA [id number] 04:44:00 Test Item Value Reference Range Interpretation Comments Protime (test code = 14.1 11.9- 14.2 5902-2) seconds INR (test code = 1.12 <=5.90 6301-6) PTT (test code = 38.0 22.5- 36.0 H 26107-6) seconds FANTA (test code = FANTA) Effective 01/16/2019: PT Reference Range ChangeNew: 11.9-14.2 Previous: 11.7-14.7 RECOMMENDED COUMADIN/WARFARIN INR THERAPY RANGESSTANDARD DOSE: 2.0-3.0 Includes: PROPHYLAXIS for venous thrombosis, systemic embolization; TREATMENT for venous thrombosis and/or pulmonary embolus.HIGH RISK: Target INR is 2.5-3.5 for patients wiht mechanical heart valves. Lab Interpretation Abnormal (test code = 52367-5) [facility] HospitalPT/[id number] 04:44:00 Test Item Value Reference Range Interpretation [...] is2.5-3.5 for patients wiht mechanical heart valves.Calcium, [id number] 04:34:00 Test Item Value Reference Range Interpretation Comments Calcium, Ion (test code = 1994-3) 1.17 mmol/L 1.12-1.27 pH, Blood (test code = 22546-9) 7.44 [facility] HospitalCALCIUM, [id number] 04:34:00 Test Item Value Reference Range Interpretation Comments CALCIUM IONIZED (BEAKER) (test 1.17 mmol/L 1.12-1.27 code = 698) PH, BLOOD (BEAKER) (test code = 7.44 1810) Prepare Leuko-Red [id number] 23:54:00 Test Item Value Reference Range Interpretation Comments CROSSMATCH (test code = 2264) COMPATIBLE Unit ABO (test code = O Pos 2079906) UNIT NUMBER (test code = [id number] 934-0) Status (test code = 0559578) TX_TIMEINCHART Blood Bank Product (test code RED BLOOD CELLS = 2263) PRODUCT CODE (test code = F7255Z63 933-2) [facility] W/PLT COUNT & AUTO [id number] 07:51:00 Test Item Value Reference Range Interpretation [...] CONCENTRATION Decreased (CELLAVISION)(BEAKER) (test code = 3438) Collections Curator ID - Abby Higgins comments: Slide comments:Basic Metabolic [id number] 05:22:00 Test Item Value Reference Range Interpretation [...] Calcium (test code = 8.6 mg/dL 8.4-10.2 31420-5) EGFR (test code = 9 mL/min/1.73 [place] [address]-5) NOT ACCURATE CREATININE CLEARANCE IN PREDICTING GLOMERULAR FILTRATION RATE . ESTIMATED GFR I S NOT APPLICABLE FOR DIALYSIS PATIENTS. FANTA (test code = FANTA) Collections Curator ID - EDASI Lab Interpretation Abnormal (test code = 41763-5) [facility] HospitalBASI METABOLIC [id number] 05:22:00 Test Item Value Reference Range Interpretation [...] S NOT APPLICABLE FOR DIALYSIS PATIEN TS. Collections Curator ID - [id number] 04:52:00 Test Item Value Reference Range Interpretation Comments MAGNESIUM (BEAKER) (test code = 1.9 mg/dL 1.6-2.6 627) Collections Curator ID - EDASIHEPATIC FUNCTION [id number] 04:52:00 Test Item Value Reference Range Interpretation [...] (test code = 15 U/L 6-55 347) Collections Curator ID - EDASIPT/PVGF4233-82-35 04:20:00 Test Item Value Reference Range Interpretation [...] is2.5-3.5 for patients wiht mechanical heart valves.POC-Glucose [id number] 22:24:00 Test Item Value Reference Range Interpretation Comments POC-Glucose Meter (test 99 mg/dL 70-110 : TE STED AT [facility] code = 1538) [address] [place], [address]: Collections Curator/Techni connie ID = [id number] for Jerson Morales Lab Interpretation (test Normal code = 89584-8) [facility] HospitalPOCT-GLUCOSE [id number] 22:24:00 Test Item Value Reference Range Interpretation Comments POC-GLUCOSE METER 99 mg/dL 70-110 : TESTED A T [facility] 6720 (BEAKER) (test code = [facility]ELOPE Lazo [facility], 1538) [address]: Collections Curator/Techni connie ID = [id number] for Jerson Soriano Hepatitis B surface [id number] 20:25:00 Test Item Value Reference Range Interpretation Comments Hep B S Ab (test code = 27.2 <8.0 mIU/mL H 25598-5) FANTA (test code = FANTA) Collections Curator ID - DB Lab Interpretation (test Abnormal code = 54096-9) [facility] HospitalHEPATITIS B SURFACE [id number] 20:25:00 Test Item Value Reference Range Interpretation Comments HEPATITIS B SURFACE ANTIBODY 27.2 mIU/mL <8.0 H (BEAKER) (test code = 647) Collections Curator ID - DBDrug Test, General Toxicology, [id number] 11:06:00 Test Item Value Reference Interpretation Comments Range Acetone(Quest) None Detected (test code = 3053) Methanol([facility]) None Detected (test code = 3054) Drug Test,Genrl see note The followin g compounds were Tox,U (test detected: Co tinine code = 8861162) (Nicotine Me tabolite) Morphine Osvaldo taminophen Hydromorphone Hydrocodone Benzoylecgoni ne (Cocaine Metabolite) Cyclobenzaprine For a list of compounds an d limits of detection go to:http://educa tion.gamesGRABR.com/faq /ONS126 ISOPROPANOL None Detected (test code = 8962713) ETHANOL (test None Detected Volatile code = 9501764) Limit of Det ection: 5 mg/dL This test was d christophe and its analytical performancechar acteristics have been deter mined by [employer] [place], [place]. It hasnot been enoch ared or approved by the U.S. Food and DrugAdministrat ion. This assay has been validated pursuantto the CLIA regulations and is used for clinicalpurpose s. FANTA (test code Performing Lab = FANTA) [address] [facility], [address] [facility] [address] [place] [address] Mckenna Lopez MD, PhD [facility] HospitalCBC W/PLT COUNT & AUTO [id number] 08:11:00 Test Item Value Reference Range Interpretation [...] CONCENTRATION Decreased (CELLAVISION)(BEAKER) (test code = 3438) Collections Curator ID - Jonna Pascual comments: Slide comments:BASIC [...] S NOT APPLICABLE FOR DIALYSIS PATIEN TS. Collections Curator ID - BONILLA [id number] 05:45:00 Test Item Value Reference Range Interpretation Comments MAGNESIUM (BEAKER) (test code = 2.2 mg/dL 1.6-2.6 627) Collections Curator ID - BONILLA MHEPATIC FUNCTION [id number] 05:45:00 Test Item Value Reference Range Interpretation [...] (test code = 11 U/L 6-55 347) Collections Curator ID - BONILLA MPT/YEZO0212-26-21 05:17:00 Test Item Value Reference Range Interpretation [...] patients wiht mechanical heart valves.Type and screen, chizxnxno5575-18-15 11:24:00 Test Item Value Reference Range Interpretation Comments ABO/RH AUTOMATED (BEAKER) (test O POSITIVE code = 2260) Ab Scrn (test code = 890-4) NEGATIVE [facility] HospitalHemoglobin and vcixhjubwg4167-69-65 09:57:00 Test Item Value Reference Range Interpretation Comments Hemoglobin (test code = 7.2 13.7- 17.5 GM/DL L 786-4) Hematocrit (test code = 21.2 % 40.1-51 L 4544-3) FANTA (test code = FANTA) Collections Curator ID - [id number] Lab Interpretation (test Abnormal code = 38002-8) [facility] HospitalHEMOGLOBIN AND [id number] 09:57:00 Test Item Value Reference Range Interpretation Comments HEMOGLOBIN (BEAKER) (test code = 7.2 GM/DL 13.7-17.5 L 410) HEMATOCRIT (BEAKER) (test code = 21.2 % 40.1-51.0 L 411) Collections Curator ID - [id number] W/PLT COUNT & AUTO [id number] 08:25:00 Test Item Value Reference Range Interpretation [...] CONCENTRATION Decreased (CELLAVISION)(BEAKER) (test code = 3438) Collections Curator ID - Angie comments: Slide comments:BASIC METABOLIC [id number] 06:33:00 Test Item Value Reference Range Interpretation [...] S NOT APPLICABLE FOR DIALYSIS PATIEN TS. Collections Curator ID - BANDAR [id number] 06:22:00 Test Item Value Reference Range Interpretation Comments MAGNESIUM (BEAKER) (test code = 2.1 mg/dL 1.6-2.6 627) Collections Curator ID - PIAYA LHEPATIC FUNCTION [id number] 06:22:00 Test Item Value Reference Range Interpretation [...] (test code = 12 U/L 6-55 347) Collections Curator ID - PIDEANA LPT/QRAV0361-72-05 06:13:00 Test Item Value Reference Range Interpretation [...] mechanical heart valves.CBC W/PLT COUNT & AUTO [id number] 07:32:00 Test Item Value Reference Range Interpretation [...] (CELLAVISION)(BEAKER) (test code = 3438) BASIC METABOLIC [id number] 06:02:00 Test Item Value Reference Range Interpretation [...] S NOT APPLICABLE FOR DIALYSIS PATIEN TS. [id number] 06:00:00 Test Item Value Reference Range Interpretation Comments MAGNESIUM (BEAKER) (test code = 2.0 mg/dL 1.6-2.6 627) HEPATIC FUNCTION [id number] 06:00:00 Test Item Value Reference Range Interpretation [...] (test code = 12 U/L 6-55 347) [id number] 05:30:00 Test Item Value Reference Range Interpretation [...] mechanical heart valves.CBC W/PLT COUNT & AUTO [id number] 07:05:00 Test Item Value Reference Range Interpretation [...] CONCENTRATION Adequate (CELLAVISION)(BEAKER) (test code = 3438) Collections Curator ID - Kaylee Martines comments: Slide comments:BASIC [...] S NOT APPLICABLE FOR DIALYSIS PATIEN TS. Collections Curator ID - NFNMFOZDEBRQZH1418-86-42 05:42:00 Test Item Value Reference Range Interpretation Comments MAGNESIUM (BEAKER) 1.7 mg/dL 1.6-2.6 Specimen slightly (test code = 627) hemolyzed Collections Curator ID - [id number] 05:42:00 Test Item Value Reference Range Interpretation Comments PHOSPHORUS (BEAKER) 4.8 mg/dL 2.3-4.7 H Specimen slightly (test code = 604) hemolyzed Collections Curator ID - EDASIHEPATIC FUNCTION [id number] 05:42:00 Test Item Value Reference Range Interpretation [...] Specimen slightly (test code = 347) hemolyzed Collections Curator ID - EDASIPT/[id number] 05:19:00 Test Item Value Reference Range Interpretation [...] = No growth in 5 days 6463-4) [facility] HospitalBLOOD [id number] 05:01:00 Test Item Value Reference Range Interpretation Comments CULTURE (BEAKER) (test No growth in 5 days code = 1095) BLOOD [id number] 05:01:00 Test Item Value Reference Range Interpretation Comments CULTURE (BEAKER) (test No growth in 5 days code = 1095) Hepatitis panel, [id number] 18:27:00 Test Item Value Reference Range Interpretation Comments Hep A IgM (test code = Nonreactive Nonreactive 96397-2) Hep B C IgM (test code = Nonreactive Nonreactive 21715-8) Hepatitis C Ab (test code = Reactive Nonreactive A 60445-0) HBsAg Screen (test code = Nonreactive Nonreactive 5195-3) FANTA (test code = FANTA) Collections Curator ID - DB Lab Interpretation (test Abnormal code = 69321-6) [facility] HospitalHEPATITIS PANEL, [id number] 18:27:00 Test Item Value Reference Range Interpretation Comments HEPATITIS A IGM ANTIBODY (BEAKER) Nonreactive Nonreactive (test code = 498) HEPATITIS B CORE IGM ANTIBODY Nonreactive Nonreactive (BEAKER) (test code = 645) HEPATITIS C ANTIBODY (BEAKER) Reactive Nonreactive A (test code = 367) HEPATITIS B SURFACE ANTIGEN (2) Nonreactive Nonreactive (BEAKER) (test code = 2585) Collections Curator ID - DBTissue Cwbj0392-02-52 13:01:00 Test Item Value Reference Range Interpretation Comments Case Report (test Surgical Pathology code = 104) Report Case: [id number] Authorizing Provider: Myrna Monsalve MD Collected: 05/27/2020 08:20 AM Ordering Location: [address] Received: 05/27/2020 02:50 PM SERVICE Pathologist: Rosa Cisneros MD Specimens: A) - Biopsy, Gastric, random biopsies R/O H. pylori B) - Biopsy, Gastroesophageal Junction, random biopsies R/O Islas's DIAGNOSIS (test code h8lfgPQyCCOot1ufLRGloOJf = 3220) ZzEwMzNcZnRuYmpcdWMxIHtc zkGoKTtra0QbX9UbYtMzAGek bnNpXGRlZmxhbmcxMDMzXGZ0 riEiSSBnFNoyXPImANpeSj8d jQCrfCfxYbEyUHGxq5jyatSI pzwloEa5g1trMJEmMiJ0lBIt QRufR6sykpZbyIBnXTLzXPt4 aB39ZUFqeP8biWIjCZxzazJr IsQ3UDtxSJPhTlO7OEYfbHKi OXUdA0sjSDYqWLcfLEHeGGyh aEZvNGD0dLvzr2X3fNGyzKWt bBjfVqGqQqYaWDQOs0VvODy0 pLwoL4RaHFZeZkU2mGBaJORn WKtcICGdEINsmeV5wC01FTho pbM7jETlc6Jhc70vy549kD2h bCFoLGA0PUEmOPVicVEiTSEm QRM0LQSizARdK5p6GlBzqGJf T0F0RvYemAVgD8T7SaVkhBDf I1T0CoPctTNsHDUvzGLmKi6x oOPxpCWabj5pib73TCC7b2Yy bYxiTGG4YUQ2BgBwAq6nzBTq IIAtNX5gCeIcaHPjVNZabm14 eJskYTtoucJmsF7eMuKcTMUl oIAcKEFsDX9wjIVoZFEtcU6q cmxjXHBnYnJkcmhlYWRccGdi nfGzMv5boUyuIOI3FGeeI6ll uJ7nJxS6RRdmV1jfxK7iUPq9 KFkvySR5OPRyoC3aAE3zbfff m4mrFbWqFA6unddso5csFpWl BH9ixnw4w3qoTcUvVU3sajan v1lvBcLrPUelDWBznqwjDRWg u5VpgbgwDQLkf4RgY8ZypQud A95yhZefO12mHMSutSqzgC1n kOjddE3lMrMdGdZyGYhnsVks bGFpblxmMVxmczIwXGxhbmcx MABcZAplA8wnOhXiIULpdVvf HLthl3JzFBOcXLCdTbLsRY4a V7NDSHAXBDlgXW0UX7NCS0HR ScDIWRSJG8GAPEBPY7TURVKR IFxwYXIgLSBBTlRSQUwgTVVD I4BHJQuYJHwyO9mRY22HMxCO TkFDVElWRSBHQVNUUklUSVMg IU4NEBDQG5TZEHdDVGCFNIqF QUwgTUVUQVBMQVNJQSwgXHBh ciAgIENPTVBMRVRFIFRZUEVc fVPvJH7cO6xHLfDBXaDIWTES M3TnL3gXVMAHTjBOMJsHDCJT K5NGPYMXUAHSR7bVA1xEEBYT SBJEGEPPX07ZEWXhftUiGA1D J1GBETLELLSHJtFYYViLY02U FYGPLGOmMSgTJ1NACCDtvmEw ME9DC8IITPIHUUXWKlOEFADN JKYWGUXkT4NiI3FOM7iCZ54X GECdfarvQANjRe0lK6GFGQMU BDEGHQlFC5ESEEADWM1MAUeT ZihkET2ZP8BED7QFQmFTMCJI H5LUITQED7VKQMMZJPLoduBk ZJMGGHORT7RQAWCVLpPWOK9E R47WCVJPXUHTWHEUGNuJHJHW GKYKIHBLN0yiTAUeHCJYAYoD ZJsTTKLEC0JbC9RMN1yVIPuh RUQgQkFSUkVUVCBNRVRBUExB B1eGCXNtvawrRXFllDXswXmf itGgCLzyr9AyWNbqRYXtMU8a bKveNSHcDF8qHIZuS8knvV0l qfp1TfMxITCeBrQ7ZVYlakS6 Six1QNXpMQnqz1omy0EvHJKn COu9bMnzHmKbHVDzm2qnunDs MzSmJSDoTXFlAKWwlIQnK476 a9bqv9pcjoGvbEY2FNNdPLF2 YEvacdQxgiO8KQediEUlNdQ3 IDtccmVkMFxncmVlbjBcYmx1 NAYwV462TDF5hIbrq2sjXAH1 LPNcZVAsBmNoBo9vcGEiU819 VVJwMZYQPHCbtRk4FJNrftDp hsLihLHMe855I465w8hmGXAt qdRoyDkJqvmgv0saH376DXXf cGVydzEyMjQwXHBhcGVyaDE1 KDMmBD6nzjvzKQcaSJqeAUSi opS0GMYqmQBnJ2OvBVKdRW0s adkkTMD1TPluVUVtHYX5OkBc WODhg3Jshef2NoTmno5nsf35 VMH2h8CoaBfmDKV7OMT6OiSy Kv0hnJLvWAWzIL9vVkLfuQPa NALrkc63hUmfQMfoRZY0PKOe ggMjr9Cxj3juOlFjlaEfO2yu H4LyBHAlAAImRKKaAlFibvOz e7Esg5IulQQhnDt1d3zpOVQk LROeaTxpo7svTDY6LUMthJHe O2oiyG2wMPKvJA6cmvrvl9mh YXnzAZoqFLCqoCQ0jfI4NCMr fTJdN0RcfK5pDTInLBhlISMt zus5SnBjRt6noFVikSheDRmx YmtwYWdlXHBnbmNvbnRccGdu ZGVjXHBsYWluXHBsYWluXGYw XGZzMjRccWxcbGFuZzEwMzNc aGljaFxmMVxkYmNoXGYxXGxv H7laTaVcImGyKpy7RZCrfIIo CWPkHlv6KOMhwPYvNLNBhEdp dB9sMXQonEkvjS9vhCA5ZFNs vmOcaRTCnM0lSTHFfR8hEfR2 BoUgDkU6ZEDuLOmxaSXwlO5= COMMENT (test code = s9ibxRNuYWLbqGEbRtLvWISq 3352) ODQur4utMSJlkTCeDgNrMpOf GiKsIfbhnKPxZGFyShWze8ob c740xJYvv9kvIENpAnM3fUIm SXUsqAUpT485p9jfo0vdilNt lXU8EEMqDSH8CDvfwhWvanF1 MOabmPDeYbM4CVwqpsGuZDoo ehUmecAyZoq7ODUaK731KAF8 rTasj6jqSYW1NGHtBFLaNxZz Dr6euEGiP879FKWtUVKUCFEv lYd4FCBsdjDhayHkhTCAv631 P631l6zwZKUmhhWajYlPzfge c9ohJ829FUKqrRNfkdPnScMn KOQgwZEdxSI6KXOtSW9lpwfc WjTqHO8xjhdfUoVrYB7ubvx1 DqLsHC1lkyegFwShQZdmFVQc manhBEDws0UeplhgIL9dY1Zn h5J5kC0vgSVhYOCiuKOcXoLl XEYfpl0orGRuBQojr9PrATU9 ciO0kZGiuXVhFIIlIF83Frhx i6NbOzayMFJ2SYSkreFik2He a6smShDgssQbW0reY1VmXDEo KKIoNOOoMcKrxiBdc7Ylw2Df yMJncSf0i1fcFHZcHVFmfSjy z0qfROM1JMGmM2I2iFDuq2dx HTpgCLQvuCM9eipkVOxfKCPz inL3raohIMxcMSLlgMU1ynxq UUvkJTXwKcP6numjSAzxKFOt ZGB3LGhej142BMC1VHssEted YWdlXHBnbmNvbnRccGduZGVj XHBsYWluXHBsYWluXGYwXGZz ReLxfKbecJyhzB5aFnAdKrMm ESgoUK0sHWRhL6lgtSYtNWSt AESbM6irGhVvxI1emIkvLUqj ykBzXL8rcWWxnQ== CPT Code(s) (test r2pdrYFgBPGnyQMwQaMkTHXn code = 3357) KUWkg7efZWRsiMHaZwNpUeWa HmYtGwlpwYXtRDDiPjBkg4wz v602bESpb3ifTKJmXmM6yHGm QLEuxKRkD842r9jdg6hmxbXy bNE2CHKpLBV6PJztkkUttxR5 NArtsRIqUdI5KMyxjmQpRWng rhEsfrHfZbp2PHOzX697MEF4 yYiod4hpEQF7YBOaXXFeIgTt Ey6laCReO854HNUwSJIYOFCt mUq8BDJwejYafxWxcEJUe242 J630j7qbOGOblvDtbLvJiobb v1bpJ701DZIlzEBfjrVjNjLb TTPbvDSpfDR2XNFaKK2tvzbl TiSuBS1usdtjZfDgFS0fgux9 EtBfWU9kxwrfAdFqKRldZKMi uosyPJDxj3GuxeyjRN9oC5Xh a3W7bX3mlIIxIQCrtVBhTlKn BUShkh0gbUCqLDgsh0OhFCY0 ngA7oYKbxEYvGEUzIM69Zudy y6EyOebnYNX2ZYQliwAjq4Ey m1uoFkFutsNuL9rbL1RrANQl QMHiLSQgGxXrbmFwg6Exl7Yq vLBzuGm3n6ftSEQrWOEcaVpp n5ecBNS7MQSmO0K6oKKwt9ig LTvjDIRzeRG4zvodMStoSEEh rmU2rzgkDEicIFOjsMR5krjd ZHblGSWkUfH0wvrsUEsrUBOj HQM9XHzml631BAP1VQlwQkto YWdlXHBnbmNvbnRccGduZGVj XHBsYWluXHBsYWluXGYwXGZz BxYzxVadsMlntQ6gCbZjJxFe NAgiGY0oWZDqI2ankSOqKDTh VAPcI9qyJxXeeN3spYhpVXss vvSsDZy2HdM0YKlmEXS6IWWa MlxwYXJ9 CLINICAL HISTORY s4wfbNZoBJNmxRKjCcFvGOIy (test code = 3356) RONry4rwCZRwuGQfVvAsFrLk RuZcJkstwWQpSNKaPzOwd6so h783bCGxy8liNVAaDzA1lQMy HTLyyXDeU081v6xjn6oefsLa ySR4GOJgTIY4ENqwovYtcxQ2 CCougYOcVeV4QEbpulEtMKrh efRwuaIwBkn3SPRmZ151WPY7 pLsbj9npLCG3PEReSGIrSqAm Zt0vnHOcZ224SMUiUDPQNYMw dPx0GHUaypTrdcVsdYRAf641 Q561g7ycCERlinIsoFvObafn g4qeM573IGKwtVTourTeXnNk JKHgtFAumFO8NEWxSU0ucfzu XdKiDV4erjqvAxKdGD6wtbm7 PiMqGK3firygIoFdCUcaUWPw shouUUTpz7GjxabuPV5iG5Je u8I0aD1qbYZzWYDtkMAxXpUa AEFxhz0ejVZuUCrts2LfTPX6 iqR6oOJaaATvOSUbKB15Pwlq e7EmKojxCCP6LFEuoyLcf6Tk f6jpQhNiwbYzT1jkC7QmWZQz OLRtILEwFbNrctSzp3Hix3Fr bOVipAf1t8xbJYLjCMKvlZhu s3cgMHN5WNSpO3H8xOIyl0dv VJzePBKefWN2kuppVVqxSYJj zeY7fhddYTxaHMEzpLZ5fzmj RKuxGMVnBrP9wrfxZQszQVEs TIO6XJtgu214VMU3TSftAgyy YWdlXHBnbmNvbnRccGduZGVj XHBsYWluXHBsYWluXGYwXGZz JrSacWntbFrwjD6dPnEqOxCs WYywAX6fYPYcY7bmmUWuSBYb AUHmB3vsJpFzyM1qvQiiZExq uwFoPCExII1dWZMjqYCovM== SPECIMEN SOURCE (test j3bbkRThMOYapXRuWhZgDQTy code = 3377) TLEad3loMXQrsYUpZyMnIuJo KnJnFxeweYSpVMWdQuEzb3za o800aUBde0ngXZSxQmE1bUHs EPSarHZdF345c4orf0uowxIy xWR2DBAlRGV4LYanouYpbyC0 HZwuxBAtXyK0UOahyvOdYWsj tePcddBeFzk9BPVuL431ERI9 tCnsq8jnSEH7EIYeKSKeOoGz Jc4bjRDwX639HLQiYINCRPQt xHh9JXWspwVmjvOltKFOr275 C326d0hgICMzndUmdDnDhaal d3blE253HHSfhSCeplGkLoBv GRWuoXJdaPF1HLPfMO4nluof TvBnYK7panooSkFkCZ8muom6 TjTnIM3dvqtbAhGlZKyaSXPc uydlYTQbd0PugxekHY2iC6Jb x5L0wJ4ahCOzYPQfsPDfKaNz SHNygs8lcAHrMGwwr2XwSAZ2 haD2zJNmeGNiNOIhJY26Bari y7RxXbkjZWP5DEXrjcLvk3Rq s1avJhGqszCkO0foC6VwEKHi UKSsSETpDzMpzfReh5Qnr8Yv sOHybJd3g2tzIYFuEMEvfWqo o7luRZQ8WKKvA9S8zNXtf0fa NIzfWNRalNT1rpwtQVukHHUt suV3thkfUCtcJHAurOL5fahh GGkxTDXrPsV1ruuqKBwuNBFq HAV3FMvpe794VSN1RKjpJren YWdlXHBnbmNvbnRccGduZGVj XHBsYWluXHBsYWluXGYwXGZz LgHyvOziyJssrO5lNiWjFuHs WEhiSA9iWNXaJ3hbeNEpNPFh EEPmY1jiLhGsfL7umCetSLhw czIwIEEuIFJhbmRvbSBnYXN0 cepwJJMay4QkjZrvziHqGPFb pHMoEU1gXNgin8UmHEOifkRJ JvMKZT5xz44vG8XpgxOnL8Jd c19bZkkbyRI8JECqvFdjPY54 mOJJTZNoXEV0X1ZrEAPpay2= GROSS DESCRIPTION m2jewVJyBFVbnEVlTnDdQCMn (test code = 3366) RPWnc6vnJIXkaGTgIqGoVuMe PxYlBuqnyZIuSRNvWfZra6so j694vEAkb7jfJDYlQlE9yWCm FSYepJFaA697FNInAMrka7fj a4PtGPKmtPXyu9S1WDYVgcln eLt0gPsdJ48xd8M3SkzeU0sa LNCqIKKjI8DuDJ7cQSVxOur9 OMB6KTM4YMDtTHHnO4LdIB0f XCNstAEnERf8o0ljtHhyUJTh FBP7e9yxCAaqyrSyGH3rog9t bGs0w0pwlzDbAOEyROBnkEWC QWWqQ8WldJztMo8wtOy0bQnt SkdbGQT4Mvg7MS3rqx67ipd5 bTekLERoqlstXhW3ENhoLGYx ddgwKAz0FTvqDXUbbFehKJrj YXJncjcyMFxtYXJndDcyMFxt NHGaFllvAAypASQiDUM5VOli n944MYP7XCcfd8fdy3ygsJZb Ibp8QAPuNaLnMstjEQpkn8Lq i2feNRKqzg0tBWI1rOKaxOdp y2C5lPYcATJsmXBjosOoFDUv IcQ9YOnfIE8lqi33QUYnIUT1 lb3jyWJojVfjtrJcgWZtQKqq K6HkGMPxj660IEPkI0FrAZOs z7Y1eeUoPcSsJLWrnRN8vrU0 DRIyZMu5gSQzplP2dcMqjBOh N4duwJ53EjWjgCHxV7RznK60 ZuGxnJHiW8WehK39SfLuyMRx C1FfyN53TmNuiEJzVOIkbOSf Fv3bhBIbhVLbj2SxbGCnHIjq D18tt625MIHsdhUfA5iajXCv nkgehKLffyzbNVgeelO3NUOl XHBsYWluXGYwXGZzMjBcbGFu ZzEwMzNcaGljaFxmMFxkYmNo XOWiTNquG2upCmHrSgZbVRRD SlIITUAgeGUqRMVrirIpn8Dv YWxpbiBsYWJlbGVkIHdpdGgg zKanFVHriSdclcAcwlYxSK9b DFTpKWSnI5DjMMEpN88rHNSw mY2pXYLhZF6qNSGeDUV0qclh RMCty7QsyCKtRTTqUPE2fzNy uEGvNHEng6BnkZHcSZpocFMs HD76D93vLC2of3QpczYuYPSq u7D8GWI9gTK9SL8oQXK9byTm BX57BLimDE3zCVduFD1tRZLl UQyqZRHqU2HdK0P1ZD6xJRgr CRCjBIBecSUzNQfzGUJ3Fu5d jYVsIGKjbvG3l5VeSNEyhMnj p1azGxHfeUo2jxZ4hV0mRTju MGZui3CnpMDpJBZnTodvEDBz cGFyXHBsYWluXGYxXGZzMjBc bGFuZzEwMzNcaGljaFxmMVxk AqWqYBUjOCxoV6arPgRzSpRr MCBCLiBSZWNlaXZlZCBpbiBm n0XfGVnxovXyHEDtpQUnULcz dGggdGhlIHBhdGllbnQncyBu SH5kXOZgZNTxO0RwOOSxF83c KQGdoE0vWELmRZ7zNWELNYRx kM4tpZmypkOfpG0lv1kfIEAe IZH8p91avYjlC9NqGJ5zOIEj wt90jMv9ZNIzgDJox1WlE717 PGPyWIC4lLYofXDsyUxmhIDl CGIgeXQpORAxXGJ0IPVcEoF3 DFThKvSbzRGhrbCjM7seWKoy mLVcQSBqQJIinALkzT4lvlAj urKkeZNlqXY1PLLvvJ1lqJ86 bxWls3zkf7rpjnhgCpdtvJSw dRpjtyRsmhMpORQyRGV4MZUE EW0kaBwqmE9aPkPyTxIlKCcv FK8kNCSlE1nbqWQzEBLcBZKd R0krRlPzuJ6fhSntSMwbtfUj ENYZUIQnNVsktGiccE4yCmQm JrYoWXpgPB8aPTAtR8okuGUu JKZzDHSaO6xaBnYelT2fkFdy MVxmczIwXHBhcn0= MICROSCOPIC g0tvzRLhQRJtiASvTfMzTVXc DESCRIPTION (test NTIby7idKSAjxRQdAbFmWuIu code = 3371) SmIgJdlgvCYwYNZdDbRcy6df x950pIHhb5gtBQGhVaD6bHZa ALHhzGHfA302VZMnDYtlv4zc n3AuTZVrbLGvn4D0NYNFvqlf vKt0qIaaY68as1P1KcwzK8kl KXXiTDCdO6KgKK2eURXpExf2 LKY6WQB4BRFeYRJvM4EwZO8g TDVpdDHoDLu7j7wnfIdeKPFv CXL3z6xkUJqbjqHnUM8ekd0i pAw0c0zkcgXhCOTcVASuwFEI QVHnA0GghIxkJa0jfOo6qUhy GhgiWMT1Dxc2ZI0srx67rat9 uZauKUZiwkjjZyQ6KAdrAKRo xsfxMMe2JEpaAAXtmVwjCBsj YXJncjcyMFxtYXJndDcyMFxt KVNdOdpsEDihTWYeKOC2THvp g417YBS5ABtnp0cuz4faiYNi Iue9ULDvPbDeZjkjIRgtx0Ns n9kaRKZuhc6mJMB2uGIsbMry g8D7fHNmWBFdtROczlVdCTJb NxJ2CFpxDH8vrg63BHTdBEF6 pd5ruULktAqdxbFisFJaQExt R2CkJYAvg208PNJqA2MmKSKn d8N2piClIkPaMVEpgMT5ycV3 IIGmPBe7gWYylkB7gpAvoGKg X2ngkG00QpVbdOLxD6MxdS62 NxAejAAlD3XllA67DrOgoIFz O4DpdA23NlAtrFRaCXCuzILi Yd2lfCHiaISkv8HykSTpFYsq Z64dy160UWCsckIdW1hmeERy voyvzRWjwwglVNwlftF1LNDl XHBsYWluXGYxXGZzMjBcbGFu ZzEwMzNcaGljaFxmMVxkYmNo GQXgYEmqB1vkGqVcHxHeVQCZ GyOSCXU9yV3yVUZci9jbCEhg y1KhpTLxDM37tzXbWYJrWMTq gMvspGkkUT40T60rEW7aULet RARcbNLilJEvyFCfd0Kcu1ut q0NsqKytGWTqpOXnfblfNGqn CFM6lIBrCBgic3DmzSPutpP1 nLBnMVcoY00lhYpvfHLxhK62 LPF1gA8uiFIfTJGbwCagg3rl FiEAybUiW4CregPvzG5xqPXv hSN3yC5kBWiyMBXnOBZlqlDz RAXsJVXyeHebbAhlTO95L85l METdjM36ysMpfwTepNgqcGCg H5HycNIllvQsSC6hGEAvk32f INfkrnPpyT5jj8XuiL0zTc5u WXftqXyww8JqD5OcnsYecMxb cmkgaXMgbmVnYXRpdmUuIFRo IOOcDKneGN7oFXT7f4YkWSJm LEAyolQxQIBtzU5bzSFrRBRa vwtvGJUpIv6tV6DcdMxlbkGo hB01rbZcMYS5xy0fg32brYHk KUMeRCw5efQ3kR1pSEfdtLNd h2PaHXXyPZOziGTztC90stWu ZC7ffOrwA7UlfLamoFCjq1Or JrYIgLCvr5P9YV1ftDLfLOKs y4PxZVduZSrgRHBazYEfufQl tPLwPhRSLWVzyP2jxZiyheKt CF53Y50gPLLrnY02onSnmxNu lyWxhGo8yLXiPCAyRK4qRUOf AGJmrF8wN2O9ZYQswaUiV0Cz IERpoARlsKclXMDmAM7qLAGg NFFbv7n0nN6btgJpdXDsz7Sa y8ewq4LoL9wlj30sZxQorbTg SI3jWPRri17uu3o1zVNaMTBm AA5izTWme5SnsSumCrKRweFx n0FyNTJwS0LcxYDgKQIbkCyp m8fnJPheDMUyKJ1fDTIgda3= SPECIAL STUDIES (test b9mzaEGnRHUrc8mnCRLzlWSg code = 3376) ZzEwMzNcZnRuYmpcdWMxIHtc gjOiHIooe1CeE4DsCoCnHZlt bnNpXGRlZmxhbmcxMDMzXGZ0 jkOdFVAnAVmuLJUjMRytRx4t dIFvlEfaRhFyQRFso8hlzsSH nsudaBu0t6tzGWNmGtH7mUSf IQhyM1rozqLewIZtS1QrsBOv wKz6f3bqYuDgAiC2sGQqJTgn V8tatyOgtUSyQTLwVHc7uS31 YEHwtU2wwDZuRAqjaxBjViR0 GQmeYSTbDaG6HYKuzGQoKZHk L2kyABWlTPkeLKClZCpihBNy ZXY3uPhpn0I2oYNzeDOtcLty AvChPeLxVgRSi1WaJBo6uVfk G1ScXMBkEbJ7gMTdIVPwWKzu CLAaUHAcykG8gOwictQvm03g eHQyXGYwXGZzMjBcbGkwXHJp KOICz7EvgNxkVFR2pHc5xFve AwjhREJ4Kra5WS9vig28ygi3 nEerTWFitcfwNxO0AHmfCYCo xmuoKJn3IGtqISVmhPP4XIHf xJMqA5HsQIWjFR5lnbi8FOQ5 QHenAXXbIuB8CAAamIUmMKKm sPenCGujh360TLG9QkIeQD4y R8Dkl5E9eS1zqUUmZWPhrMRm FeQzZLSflg8uiDQlMUzln9Xm JBP7feJ8qVJghFIxTDEmNP04 Cyiij7VtKywak0QtN61xzNL8 WMtis6fiZS6wHtY1loLjQUyb c2forQ6wEcS7STizTW6qNL9a CCBncZ6rjqhgQBOeXmSpvtjy NLRmkDhovdLnJc1msQkiCTK4 AWviS2uuyW2kTbU9SQfrG3qo bL5gHPd7TUijkFT7HMVblE6f HA8wnpqyq6wdHPfaUUwaKOWd mjH9woX6EKTsxZWpM4DqyU3q AHVzKC7kmgiql7nbLSO1IVtb QHTtWLU9PeJwFLGxp9Tvfhf1 HpGoj6EyuHLzGZdeM36pt408 VEKpfjKgN8cboHYinwxkhABx whylGVxsflT4FOIlAVCjVWvb XGYxXGZzMjJcbGFuZzEwMzNc aGljaFxmMVxkYmNoXGYxXGxv E0alArCkA5OoJDNtEoWgCYgg AZbovCSoaKNlzIB4qQ7qHW9r IEDgdCUyE6KyKOHlwoDgvRVd RRI0jHWorDFcRY7oLTycxZXp s1xhg6MlL8theRzerQO4RF5q GDYdFPGsAHznj5LjjK5vVrca bGFpblxmMVxmczIyXGxhbmcx NEBqZWifE0buNdFySMXywJwx RShsd5QlVGJyOLLaXvaowsNh ULq1htDsLQMjrfpiDCJngFvo lC5rCoDfCtLbOcncIE1bWXCa O5eilEZdQKLmHEKyW5fyXiBf hZ1lbSfxCFlkVmNoFjLpPsBD i545ru8xTGTvdJCqisUUuORo uI3bIZxqFCigMHmxiILlLOiy g9rwDKXrx4f8aWFbWVLkfsOf k1bgYYycuqVcEMMcxPBhaENc TWVat43lUGmbcTwnaQpjEWFd i6ZbzSjtj0MaPbAoCHfha1Kc A37esLCudZUmnAagQKMclaKp BPWkf75dg1alJLIxRbL7fRPa zKP9hLJyhTKvs0SzqPssUOCf h9qaBMJhdh8ggjggoPAvd9Nn dP4jutiaEMgkhUJqjnNtSDUw z6h2lNSiLSToKIPpBBqfnAi4 FWShr483xo2nikZ2gXEiZVO7 YWlsYWJsZSBhcmUgZXZhbHVh dGVkXHBsYWluXGYxXGZzMjJc bGFuZzEwMzNcaGljaFxmMVxk DsEcBXJlWOsbR9dqAoWyM9Jp ZYVeIwCinYJzE3zoxFXzGBPq YWluXGYxXGZzMjJcbGFuZzEw MzNcaGljaFxmMVxkYmNoXGYx QSikZ4nwAoThO8WxLPGlUoUp IFxwbGFpblxmMVxmczIyXGxh lkinOHVqMYcbI0vtFiHrWLAe tVqgEDegr2UzOZWfBJWuOevx tzUhGCn5egQnKHOgpskguTRd blxmMVxmczIyXGxhbmcxMDMz ENitO2ncEmQdCCNroOpbWAdm z4PbZOMfPYQaNwkhboUsXOgn sWJfp6orl3PgV6yyvMtjpXF3 OGNdO5mwsXBqxZL3NUZ8lK4d SKopphFvFAVmv3ZxGWHtVSVz OaU7jT5bMJV6UwJKdYphVPCe YWluXGYxXGZzMjJcbGFuZzEw MzNcaGljaFxmMVxkYmNoXGYx XFwkV1knCpGuK6CqLCUiUhOd fIgyHVymYLg2IzoqhWGkdvdj MVxmczIyXGxhbmcxMDMzXGhp Y3egBxKiFGGurDcnRAwjy7Iq XGYxXGNmMlxmczIyIHMgTWVk pVTtyDBJKD39FTYpERCmeVow bE2qwJMAPNRsvyV7r1K7HGro NBXxYGs8JPuwxdGjOUMahT1g UYTtZX2oEBa1tpBoVKPpu7Yz DE8cDIKnhKGnQTD0FZVxj4Bw M4Luu5WiIOWuPWGdsy9beyEl ElUYcTYjLKYszm14UJDdCI7u M5htCXJjHYKxdjRznQUqu7Pg ZTMutJE7bGXzJH0MKoZDn42z IGFuZCBEcnVnIEFkbWluaXN0 sjP1iL8zIjAAbZGoHgOGITkj pgMrQSWucc2ivzLkXAZhGYEx m0MixFKvaFTqgxKgV5Qsv5Su QOGobn28TKwxvFUvhz81AY9z U8Pva5UezR3hPGziHKLbz2Xh gTPhvTVrEHLfr7ZsV7zpvssz SFkzqHTyuQ5vVXNhLAq7BKBv d0EkYUAuf4TmZoJpohUiIWSx PSFmFWNguF06DOX6qBoppDme wuRjHV7yBHOyqbIvJRStTBVh kV4qNPlwqaMdQFIpmjD4u1K3 HVgxDQCxxfBrMbruIPF6daLl cwD3dKGiD9fcmujgTLpnMTSl x4QcjN0vtVLVdRBoa6QywZJd eHSYeVTeEQ0udvAxXN8cPWJ7 ODggKENMSUEtODgpIGFzIHF1 JCcnJamzECS8jsKuOAUlv0Fx WRgzM7rtI20riVyihQd4yVYv sNdyuFUpaBGhACWsauL6f8S9 JMLtd4IfdttnLMOwXWreZNAo XGZzMjJcbGFuZzEwMzNcaGlj tXweKtkwEyFdZTOrRRogE3qm PgWkYqRzFwloDMN1aV== Gross assessment was [facility] performed at ([facility], code = 2777) Department of Pathology, [address] [place] [address]252, Technical component [facility] was performed at [facility], (test code = 2778) Department of Pathology, [address] [place] [address], Professional [facility] component was [facility], performed at (test Department of Pathology, code = 2779) [address] [place] [address], [facility] Hospital[facility] [id number] 13:01:00Surgical Pathology Report Case: [id number] Authorizing Provider: Myrna Monsalve MD Collected: 05/27/2020 08:20 AM Ordering Location: [address] Received: 05/27/2020 02:50 PM SERVICE Pathologist: [...] ISLAS METAPLASIA Signing Pathologist Direct Phone Line: [phone] signed by Rosa Cisneros MD on 05/28/2020 at 1:01 PM.[id number], [id number] A. Random gastric biopsy, rule out H. [...] evaluated Immunohistochemistry technical testing was performed at [facility], Pathology Laboratory where it was [...] as qualified to perform highcomplexity clinical laboratory testing.[facility], Department of Pathology, [address] [place] [address], [facility], [facility] of[facility], [address] [place] [address], [facility] of [facility], [address] [place] [address] 92671, KGS W/PLT COUNT & AUTO [id number] 06:41:00 Test Item Value Reference Range Interpretation [...] CONCENTRATION Decreased (CELLAVISION)(BEAKER) (test code = 3438) Collections Curator ID - Kaylee Martines comments: Slide comments:COMPREHENSIVE METABOLIC [id number] 05:00:00 Test Item Value Reference Range Interpretation [...] S NOT APPLICABLE FOR DIALYSIS PATIEN TS. Collections Curator ID - BONILLA MBASIC METABOLIC [id number] 05:00:00 Test Item Value Reference Range Interpretation [...] S NOT APPLICABLE FOR DIALYSIS PATIEN TS. [id number] 04:45:00 Test Item Value Reference Range Interpretation Comments MAGNESIUM (BEAKER) (test code = 1.9 mg/dL 1.6-2.6 627) Collections Curator ID - BONILLA EPATIC FUNCTION [id number] 04:45:00 Test Item Value Reference Range Interpretation [...] (test code = 9 U/L 6-55 347) Collections Curator EVELYNE - BONILLA LOWERYIU-[id number] 04:33:00 Test Item Value Reference Range Interpretation Comments D-Dimer, Quant (test code 3.35 <0.50 MG/L FEU H = 83528-9) FANTA (test code = FANTA) Intended Use: [...] range. Lab Interpretation (test Abnormal code = 02748-9) [id number] 04:33:00 Test Item Value Reference Range Interpretation [...] exclusion of thrombosis is within 95-100% range. PT/[id number] 04:31:00 Test Item Value Reference Range Interpretation [...] detected HCV RNA not (test code = 91726-7) detected FANTA (test code = FANTA) This test uses a Real-Time Polymerase Chain Reaction (RT-PCR) methodology and was performed using BAIRON Ampliprep/BAIRON TaqMan HCV test kit version 2.0 ([employer]). Reportable range for this assay is 15 - 100,000,000 IU per mL (1.18 - 8.00 Log IU/mL). Lab Interpretation Normal (test code = 37779-3) [facility], [id number] 22:57:00 Test Item Value Reference Range Interpretation Comments HCV RESULT COMPONENT HCV RNA not detected HCV RNA not detected (BEAKER) (test code = 2699) This test uses a Real-Time Polymerase Chain Reaction (RT-PCR) methodology and was performed using BAIR[employer] Ampliprep/BAIRON TaqMan HCV test kit version 2.0 ([employer]).Reportable range for this assay is 15 - 100,000,000 IU per mL (1.18 - 8.00 Log IU/mL).Manual [id number] 12:07:00 Test Item Value Reference Range Interpretation [...] few Lab Interpretation (test code = Abnormal 73410-7) [facility] W/PLT COUNT & AUTO [id number] 12:07:00 Test Item Value Reference Range Interpretation [...] code = 1+ few 477) BASIC METABOLIC [id number] 04:27:00 Test Item Value Reference Range Interpretation [...] S NOT APPLICABLE FOR DIALYSIS PATIEN TS. Collections Curator ID - BONILLA [id number] 04:25:00 Test Item Value Reference Range Interpretation Comments MAGNESIUM (BEAKER) (test code = 2.0 mg/dL 1.6-2.6 627) Collections Curator ID - BONILLA MHEPATIC FUNCTION [id number] 04:25:00 Test Item Value Reference Range Interpretation [...] (test code = 7 U/L 6-55 347) Collections Curator ID - BONILLA MPT/[id number] 04:09:00 Test Item Value Reference Range Interpretation [...] Maddie Leon code = 2849) Bebeto Dsouza [facility] HospitalPER[facility]HER[facility] - PATHOLOGIST REVIEW 2020-05-26 14:31:00 Test Item Value Reference Range Interpretation Comments PERIPHERAL SMR Macrocytic anemia, REVIEW (BEAKER) 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 WBCs with mild left shift, including occasional myeloid precursors, no blasts seen. Few hypersegmented neutrophils. Thrombocytopenia with unremarkable morphology. RIGI-AJNILFAGEDR-439 Maddie Leon 2 (BEAKER) (test Bebeto Dsouza code = 2849) [id number] 13:50:00 Test Item Value Reference Range Interpretation [...] within 95-100% range.CBC W/PLT COUNT & AUTO [id number] 07:48:00 Test Item Value Reference Range Interpretation [...] CONCENTRATION Decreased (CELLAVISION)(BEAKER) (test code = 3438) Collections Curator ID - Chris Bibi comments: Slide comments:COMPREHENSIVE METABOLIC [id number] 05:43:00 Test Item Value Reference Range Interpretation [...] S NOT APPLICABLE FOR DIALYSIS PATIEN TS. Collections Curator ID - EDASIBASIC METABOLIC [id number] 05:38:00 Test Item Value Reference Range Interpretation [...] S NOT APPLICABLE FOR DIALYSIS PATIEN TS. [id number] 05:34:00 Test Item Value Reference Range Interpretation Comments PHOSPHORUS (BEAKER) (test code = 7.6 mg/dL 2.3-4.7 H 604) Collections Curator ID - [id number] 05:34:00 Test Item Value Reference Range Interpretation Comments MAGNESIUM (BEAKER) (test code = 2.0 mg/dL 1.6-2.6 627) Collections Curator ID - EDASIHEPATIC FUNCTION [id number] 05:34:00 Test Item Value Reference Range Interpretation [...] (test code = 6 U/L 6-55 347) Collections Curator ID - EDASIPT/[id number] 04:50:00 Test Item Value Reference Range Interpretation [...] is2.5-3.5 for patients wiht mechanical heart valves.CALCIUM, [id number] 03:59:00 Test Item Value Reference Range Interpretation Comments CALCIUM IONIZED (BEAKER) (test 1.08 mmol/L 1.12-1.27 L code = 698) PH, BLOOD (BEAKER) (test code = 7.49 1810) TSH/Free T4 If Igmcpumkr4918-16-80 20:19:00 Test Item Value Reference Range Interpretation Comments TSH (test code = 3.581 0.350- 4.940 uIU/mL 91783-6) FANTA (test code = FANTA) Collections Curator ID - ABBY F Lab Interpretation (test Normal code = 04961-6) [facility] HospitalTSH/FREE T4 IF [id number] 20:19:00 Test Item Value Reference Range Interpretation Comments THYROID STIMULATING HORMONE 3.581 uIU/mL 0.350-4.940 (BEAKER) (test code = 772) Collections Curator ID - ABBY FHEMOGLOBIN AND [id number] 19:42:00 Test Item Value Reference Range Interpretation Comments HEMOGLOBIN (BEAKER) (test code = 9.0 GM/DL 13.7-17.5 L 410) HEMATOCRIT (BEAKER) (test code = 26.7 % 40.1-51.0 L 411) Collections Curator ID - 6000CBC W/PLT COUNT & AUTO [id number] 14:10:00 Test Item Value Reference Range Interpretation [...] H PERCENT (BEAKER) (test code = 2801) [id number] 12:23:00 Test Item Value Reference Range Interpretation [...] 125-220 H FANTA (test code = FANTA) Collections Curator ID - ABBY F Lab Interpretation (test Abnormal code = 21965-3) [facility] HospitalLACTATE DEHYDROGENASE (LDH)2020-05-25 12:15:00 Test Item Value Reference Range Interpretation Comments LACTATE DEHYDROGENASE (BEAKER) (test 341 U/L 125-220 H code = 635) Collections Curator ID Joseph NORRIS FProthrombin time/[id number] 12:13:00 Test Item Value Reference Range Interpretation [...] valves. Lab Interpretation Abnormal (test code = 56659-7) [facility] HospitalPROTHROMBIN TIME/[id number] 12:13:00 Test Item Value Reference Range Interpretation [...] for patients wiht mechanical heart valves.HEMOGLOBIN AND BQGDMRXOLE5711-31-59 12:01:00 Test Item Value Reference Range Interpretation Comments HEMOGLOBIN (BEAKER) (test code = 9.0 GM/DL 13.7-17.5 L 410) HEMATOCRIT (BEAKER) (test code = 27.0 % 40.1-51.0 L 411) Collections Curator ID - [id number] 11:50:00 Test Item Value Reference Range Interpretation Comments Haptoglobin (test code = 172 mg/dL 14 4542-7) FANTA (test code = FANTA) Collections Curator ID - ABBY Crump Lab Interpretation (test Normal code = 96023-0) [facility] HospitalHAPTOGLOBIN2020-10-05 11:50:00 Test Item Value Reference Range Interpretation Comments HAPTOGLOBIN (BEAKER) (test code = 172 mg/dL 258 366) Collections Curator ID - ABBY F2D Echo W/Doppler(CW/PW/Color)2020-05-25 10:53:54 Ejection FractionSLEH ECHO HEARTLAB MKCKESSON CPACSInterface, External Ris In - 05/25/2020 10:54 AM CDTTransthoracic Echocardiography Report (TTE) Demographics Patient Name THIERRY PADILLA Date ofStudy 05/24/2020 KYLIE Gender Male Visit Number [id number] Race Unknown Room Number 7217 Number Date of 1965 Referring Physician Age55 year(s) 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 Owen Valdivia Interpreting Renato Grewal Physician Procedure [...] CO: 5.41 l/min LVOT CI: 3.06 l/min/m^2[facility], TESTICULAR (SCROTUM)2020-05-25 08:58:00Reason for exam:->rule out torsionFINAL [...] Signed: Roya Verde Verified Date/Time: 05/25/2020 08:58:57 [facility] 08:16:00 Test Item Value Reference Range Interpretation Comments Ferritin (test code = 95506.32 ng/mL 5-275 H 2276-4) FANTA (test code = FANTA) Collections Curator ID - EDASI Lab Interpretation (test Abnormal code = 70738-6) [facility]FERRITIN2020-10-05 08:16:00 Test Item Value Reference Range Interpretation Comments FERRITIN (BEAKER) (test code = 28026.32 ng/mL 5.00-275.00 H 361) Collections Curator ID - EDASICBC W/PLT COUNT & AUTO [id number] 08:02:00 Test Item Value Reference Range Interpretation [...] CONCENTRATION Decreased (CELLAVISION)(BEAKER) (test code = 3438) Collections Curator ID - Jonna Pascual comments: Slide comments:RAD, CHEST, 1 VIEW, NON [id number] 04:42:00Reason for exam:->pulmonary edemaShould this be performed [...] 04:42:11 XR chest 1 view portable / [id number] 04:42:00 Interface, External Ris In - 05/25/2020 4:44 AM CDTFINAL REPORT RAD, CHEST, 1 VIEW, NON DEPT INDICATION: pulmonary edema COMPARISON: Prior day's exam FINDINGS: Portable frontal view of the chest. IMPRESSION: Support Lines: Stable. Lungs and pleura: Unchanged venous congestion and interstitial opacities. No consolidation or effusion. No pneumothorax.Heart and mediastinum: Stable contours.Additional findings: None. Signed: Sally Renae Verified Date/Time: 05/25/2020 04:42:11 [facility] HospitalIron, TIBC, % sat. (without ferritin)2020-05-25 04:31:00 Test Item Value Reference Range Interpretation Comments Iron (test code = 2498-4) 118.0 ug/dL 40-160 TIBC (test code = 2500-7) 170 ug/dL 250-450 L Iron % Saturation (test 69 % 20-55 H code = 2502-3) FANTA (test code = FANTA) Collections Curator ID - EDASI Lab Interpretation (test Abnormal code = 24041-3) [facility] HospitalIRON, TIBC, % SAT. (WITHOUT FERRITIN)2020-05-25 04:31:00 Test Item Value Reference Range Interpretation Comments IRON (BEAKER) (test code = 547) 118.0 ug/dL 40.0-160.0 TOTAL IRON BINDING CAPACITY 170 ug/dL 250-450 L (BEAKER) (test code = 769) IRON % SATURATION (2) (BEAKER) 69 % 20-55 H (test code = 2590) Collections Curator ID - EDASITroponin [id number] 04:23:00 Test Item Value Reference Range Interpretation Comments Troponin I (test code = 0.46 ng/mL 0-0.03 23161-9) FANTA (test code = FANTA) Troponin I [...] DB Lab Interpretation (test Abnormal code = 13212-7) [facility] HospitalTROPONIN [id number] 04:23:00 Test Item Value Reference Range Interpretation [...] failure, acidosis, acute neurological disease, and persistent tachyarrhythmia.Collections Curator ID - [id number] 04:20:00 Test Item Value Reference Range Interpretation Comments PHOSPHORUS (BEAKER) (test code = 10.5 mg/dL 2.3-4.7 HH 604) Collections Curator ID - DBCOMPREHENSIVE METABOLIC [id number] 04:19:00 Test Item Value Reference Range Interpretation [...] S NOT APPLICABLE FOR DIALYSIS PATIEN TS. Collections Curator ID - [id number] 04:11:00 Test Item Value Reference Range Interpretation Comments MAGNESIUM (BEAKER) (test code = 2.0 mg/dL 1.6-2.6 627) Collections Curator ID - DBHEPATIC FUNCTION [id number] 04:11:00 Test Item Value Reference Range Interpretation [...] (test code = 9 U/L 6-55 347) Collections Curator ID - DBPT/[id number] 04:11:00 Test Item Value Reference Range Interpretation [...] is2.5-3.5 for patients wiht mechanical heart valves.Reticulocyte fudpq6762-23-40 04:06:00 Test Item Value Reference Range Interpretation Comments % Retic (test code = 1.5 % 0.5-1.8 51612-8) FANTA (test code = FANTA) Collections Curator ID - 6000 Lab Interpretation (test Normal code = 46233-8) [facility] HospitalRETICULOCYTE [id number] 04:06:00 Test Item Value Reference Range Interpretation Comments RETICULOCYTE COUNT PCT (BEAKER) (test 1.5 % 0.5-1.8 code = 575) Collections Curator ID - 6000Lactic acid, ikjxar1757-46-08 04:05:00 Test Item Value Reference Range Interpretation Comments Lactate, Venous (test code = 0.42 mmol/L 0.5-2.2 L 2872) FANTA (test code = FANTA) Collections Curator ID - DB Lab Interpretation (test Abnormal code = 58367-4) [facility] HospitalLACTIC ACID, [id number] 04:05:00 Test Item Value Reference Range Interpretation Comments LACTATE BLOOD VENOUS (2) (BEAKER) 0.42 mmol/L 0.50-2.20 L (test code = 2872) Collections Curator ID - DBCALCIUM, [id number] 04:03:00 Test Item Value Reference Range Interpretation Comments CALCIUM IONIZED (BEAKER) (test 1.02 mmol/L 1.12-1.27 L code = 698) PH, BLOOD (BEAKER) (test code = 7.44 1810) Hepatitis B surface [id number] 21:41:00 Test Item Value Reference Range Interpretation Comments HBsAg Screen (test code Nonreactive Nonreactive = 5195-3) FANTA (test code = FANTA) Specimen is considered negative for HBsAg. Lab Interpretation (test Normal code = 96106-3) [facility] HospitalHEPATITIS B SURFACE [id number] 21:41:00 Test Item Value Reference Range Interpretation Comments HEPATITIS B SURFACE ANTIGEN (2) Nonreactive Nonreactive (BEAKER) (test code = 2585) Specimen is considered negative for HBsAg.HEMOGLOBIN AND [id number] 20:59:00 Test Item Value Reference Range Interpretation Comments HEMOGLOBIN (BEAKER) (test code = 6.9 GM/DL 13.7-17.5 L 410) HEMATOCRIT (BEAKER) (test code = 20.8 % 40.1-51.0 L 411) Collections Curator ID - 6000TROPONIN [id number] 18:22:00 Test Item Value Reference Range Interpretation [...] failure, acidosis, acute neurological disease, and persistent tachyarrhythmia.Collections Curator ID - CECILIAGB-type Natriuretic Factor (BNP)2020-05-24 18:01:00 Test Item Value Reference Range Interpretation Comments BNP (test code = 27417-8) 202 pg/mL 0-100 H FANTA (test code = FANTA) Collections Curator ID - CECILIAG Lab Interpretation (test Abnormal code = 59233-7) [facility] HospitalB-TYPE NATRIURETIC FACTOR (BNP)2020-05-24 18:01:00 Test Item Value Reference Range Interpretation Comments B-TYPE NATRIURETIC PEPTIDE (BEAKER) 202 pg/mL 0-100 H (test code = 700) Collections Curator ID - CHANELLIV-1 Antigen with HIV-1/2 Lmmalztn2675-40-08 13:43:00 Test Item Value Reference Range Interpretation Comments HIV-1 Antigen with HIV 1&2 Nonreactive Nonreactive Antibody (test code = 34174-3) Lab Interpretation (test code = Normal 08721-1) [facility] HospitalHIV-1 ANTIGEN WITH HIV-1/2 [id number] 13:43:00 Test Item Value Reference Range Interpretation Comments HIV-1 ANTIGEN WITH HIV 1\\T\\2 Nonreactive Nonreactive ANTIBODY (2) (BEAKER) (test code = 2586) TROPONIN [id number] 13:42:00 Test Item Value Reference Range Interpretation [...] failure, acidosis, acute neurological disease, and persistent tachyarrhythmia.Collections Curator ID - CECILIAGBASIC METABOLIC [id number] 13:37:00 Test Item Value Reference Range Interpretation [...] S NOT APPLICABLE FOR DIALYSIS PATIEN TS. Collections Curator ID - [id number] 13:10:00 Test Item Value Reference Range Interpretation Comments PHOSPHORUS (BEAKER) (test code = 6.3 mg/dL 2.3-4.7 H 604) Collections Curator ID - ROSIANGHEMOGLOBIN AND [id number] 12:38:00 Test Item Value Reference Range Interpretation Comments HEMOGLOBIN (BEAKER) (test code = 7.7 GM/DL 13.7-17.5 L 410) HEMATOCRIT (BEAKER) (test code = 22.7 % 40.1-51.0 L 411) Collections Curator ID - 6000Hemoglobin [id number] 09:17:00 Test Item Value Reference Range Interpretation Comments Hemoglobin A1C (test code = 4548-4) 5.8 % 4.3-6.1 Lab Interpretation (test code = Normal 89356-1) [facility] HospitalHEMOGLOBIN [id number] 09:17:00 Test Item Value Reference Range Interpretation Comments HEMOGLOBIN A1C (BEAKER) (test code = 5.8 % 4.3-6.1 368) TROPONIN [id number] 08:48:00 Test Item Value Reference Range Interpretation [...] failure, acidosis, acute neurological disease, and persistent tachyarrhythmia.Collections Curator ID - ROSIANGBASIC METABOLIC [id number] 08:33:00 Test Item Value Reference Range Interpretation [...] S NOT APPLICABLE FOR DIALYSIS PATIEN TS. Collections Curator ID - ROSIANGHEMOGLOBIN AND [id number] 08:12:00 Test Item Value Reference Range Interpretation Comments HEMOGLOBIN (BEAKER) (test code = 8.1 GM/DL 13.7-17.5 L 410) HEMATOCRIT (BEAKER) (test code = 23.5 % 40.1-51.0 L 411) Collections Curator ID - 6000Vitamin B12 and Khhnlp6769-46-58 05:56:00 Test Item Value Reference Range Interpretation Comments Vitamin B12 (test code = 237 pg/mL 257-082 9455-9) Folate (test code = 4.00 ng/mL >=7.00 L 2284-8) FANTA (test code = FANTA) Collections Curator ID - EDASI Lab Interpretation (test Abnormal code = 34472-6) [facility] HospitalVITAMIN B12 AND [id number] 05:56:00 Test Item Value Reference Range Interpretation Comments VITAMIN B12 (BEAKER) (test code = 237 pg/mL 213-816 774) FOLATE (BEAKER) (test code = 362) 4.00 ng/mL >=7.00 L Collections Curator ID - EDASIBASIC METABOLIC [id number] 04:53:00 Test Item Value Reference Range Interpretation [...] S NOT APPLICABLE FOR DIALYSIS PATIEN TS. Collections Curator ID - MQQKOTGPFZKSKIT1559-18-65 04:52:00 Test Item Value Reference Range Interpretation Comments PHOSPHORUS (BEAKER) (test code = 13.6 mg/dL 2.3-4.7 HH 604) Collections Curator ID - EDASICALCIUM, [id number] 04:49:00 Test Item Value Reference Range Interpretation Comments CALCIUM IONIZED (BEAKER) (test 0.96 mmol/L 1.12-1.27 L code = 698) PH, BLOOD (BEAKER) (test code = 7.23 1810) [id number] 04:42:00 Test Item Value Reference Range Interpretation Comments MAGNESIUM (BEAKER) (test code = 2.6 mg/dL 1.6-2.6 627) Collections Curator ID - EDASIHEPATIC FUNCTION [id number] 04:42:00 Test Item Value Reference Range Interpretation [...] (test code = 12 U/L 6-55 347) Collections Curator ID - EDASIPT/ZQKL3073-01-41 04:41:00 Test Item Value Reference Range Interpretation [...] mechanical heart valves.CBC W/PLT COUNT & AUTO [id number] 04:37:00 Test Item Value Reference Range Interpretation [...] 0-1 H PERCENT (BEAKER) (test code = 2808) LACTIC ACID, [id number] 04:29:00 Test Item Value Reference Range Interpretation Comments LACTATE BLOOD VENOUS (2) (BEAKER) 0.34 mmol/L 0.50-2.20 L (test code = 2872) Collections Curator ID - YEFRI, [id number] 04:16:00 Test Item Value Reference Range Interpretation Comments ABO Grouping (test code = 2588) O Rh Factor (test code = 2589) [facility]pt[facility] ONLY[facility]2020-05-24 04:13:00 Test Item Value Reference Range Interpretation Comments SARS-COV2/RT-PCR Negative Not Detected, (test code = Negative, See 55028-7) external report for linked test SARS-COV-2 [facility] PERFORMING LAB (test code = 00121-5) FANTA (test code = Negative results do [...] of the Act. Fact Sheet for Healthcare Providers:https://www.Blurr/Documents/Xper t%20Xpress%20SARS%20CoV- 2/Fact%20Sheets/302-1322 %79PYQB-LOC-9%20HEALTHCA RE%20PROVIDERS%20FACT%20 SHEET.pdf Fact Sheet for Healthcare Patients:https://www.WhoAPI.[employer]/Documents/Xpert %20Xpress%20SARS%20CoV-2 /Fact%20Sheets/302-9941% 40NOPH-SMH-3%20PATIENT%2 0FACT%20SHEET.pdf Performing Laboratory:[facility] [place] [address] [facility]ARS[facility] ([facility])2020-05-24 04:13:00 Test Item Value Reference Range Interpretation Comments SARS-COV2/RT-PCR (test code Negative Not Detected, Negative, = 6764930) See external report for linked test SARS-COV-2 PERFORMING LAB [facility] (test code = 0257688) Negative results do not preclude SARS-CoV-2 infection [...] of the Act.Fact Sheet for Healthcare Pro viders:https://www.Memorandom.[employer]/Documents/Xpert%20Xpress%20SARS%20CoV-2/Fact%20Sh eets/3023802%10VFCR-TJF-5%20HEALTHCARE%20PROVIDERS%20FACT%20SHEET.pdfFact Sheet for Healthcare Patients:https://www.[place] Everywhere id.[employer]/Documents/Xpert%20Xpress%20SARS%20CoV-2/Fact%20Sheets/3023801%20SARS-COV -2%20PATIENT%20FACT%20SHEET.pdfPerforming Laboratory:[facility], [place] [address]VE/[id number] 03:29:00 Test Item Value Reference Range Interpretation [...] is2.5-3.5 for patients wiht mechanical heart valves.TROPONIN [id number] 02:23:00 Test Item Value Reference Range Interpretation [...] failure, acidosis, acute neurological disease, and persistent tachyarrhythmia.Collections Curator EVELYNE FUNEZ WBASIC METABOLIC [id number] 02:22:00 Test Item Value Reference Range Interpretation [...] S NOT APPLICABLE FOR DIALYSIS PATIEN TS. Collections Curator ID Joseph FUNEZ [id number] 02:21:00 Test Item Value Reference Range Interpretation Comments PHOSPHORUS (BEAKER) (test code = 14.1 mg/dL 2.3-4.7 HH 604) Collections Curator ID - DEE DEE [id number] 02:16:00 Test Item Value Reference Range Interpretation Comments MAGNESIUM (BEAKER) (test code = 2.6 mg/dL 1.6-2.6 627) Collections Curator ID - DEE DEE WHEPATIC FUNCTION [id number] 02:16:00 Test Item Value Reference Range Interpretation [...] (test code = 10 U/L 6-55 347) Collections Curator ID Joseph FUNEZ WB-TYPE NATRIURETIC FACTOR (BNP)2020-05-24 02:12:00 Test Item Value Reference Range Interpretation Comments B-TYPE NATRIURETIC PEPTIDE (BEAKER) 459 pg/mL 0-100 H (test code = 700) Collections Curator ID - DEE DEE WCBC W/PLT COUNT & AUTO [id number] 02:11:00 Test Item Value Reference Range Interpretation [...] (BEAKER) (test code = 2801) LACTIC ACID, [id number] 02:03:00 Test Item Value Reference Range Interpretation Comments LACTATE BLOOD VENOUS (2) (BEAKER) 0.68 mmol/L 0.50-2.20 (test code = 9664) Collections Curator EVELYNE - DEE DEE WSpecimen slightly lipemicRAD, CHEST, [...] MDReport Verified Date/Time: 05/24/2020 01:55:13 Blood gas, [id number] 01:37:00 Test Item Value Reference Range Interpretation Comments pH, Duc (test code = 2746-6) 7.27 7.32-7.42 L pCO2, Duc (test code = 755) 26 41- 51 mmHg L pO2, Duc (test code = 2705-2) 63 25- 40 mmHg H O2 Sat, Duc (test code = 2711-0) 89.7 % 40-70 H HCO3, Duc (test code = 75557-4) 12 mmol/L 21-29 L Base Excess, Duc (test code = -14.0 mmol/L -2-3 L 1927-3) Patient Temperature (test code = 37.0 C 8310-5) FIO2 (test code = 1819) 100 % Lab Interpretation (test code = Abnormal 98876-8) [facility] HospitalBLOOD GAS, [id number] 01:37:00 Test Item Value Reference Range Interpretation [...] (BEAKER) (test code = 1819) 100.0 % NID-[id number] 00:00:00Ordered by an unspecified provider.[facility] ([facility])2020-02-23 11:58:00 Test Item Value Reference Range Interpretation Comments SARS-COV2/RT-PCR (test code = Negative Not Detected, Negative 0370615) SARS-COV-2 PERFORMING LAB [facility] (test code = 0905543) Negative result for this test determines that [...] 564(g) of the Act.Fact Sheet for Healthcare Providers:https://www.[employer]/sites/default/files/product/documents/Fact_Shee g_GP_Wzloelauw_Mcug_KHCO-YzA-1.pdfFact Sheet for Healthcare Patients:https://www.[employer]/sites/default/files/product/ documents/Cjsp_Hbqai_Pksnnlyr_Wegf_BKHS-TnM-0.pdfPerforming Laboratory:[facility] [place] [address]
[2020-09-14 17:35] LABS: Absolute Lymphocytes (CBC) 1.8 K/uL (0.7-4.9); Basophils % 1.4 % (0-1.3); Lymphocytes % 11.8 % (15.3-44.8); MPV 8.2 fL (7.6-11.3); RBC Red Blood Cell Count 1.97 M/uL (4.33-5.43)
[2020-09-14 17:47] LABS: Hematocrit 18.6 % (39.6-49.0)
[2020-09-14 17:50] LABS: Potassium 4.6 mmol/L (3.5-5.1)
[2020-09-14 18:46] LABS: Protime INR 1.22
[2020-09-14 19:01] LABS: Albumin 2.7 g/dL (3.4-5.0); Bilirubin Direct 0.1 mg/dL (0-0.2); Bilirubin Total 0.4 mg/dL (0.2-1.0); Magnesium 1.8 mg/dL (1.8-2.4); Protein, Total 6.8 g/dL (6.4-8.2); Troponin (Emerg Dept Use Only) 0.24 ng/mL (0.0-0.045)
--- NOTE | 2020-09-14 19:40 | RAD REPORT ---
EXAM DESCRIPTION: RAD - Chest Single View - 09/14/2020 7:27 pm CLINICAL HISTORY: weaknessanemia, hypertension COMPARISON: August 26 TECHNIQUE: AP portable chest image was obtained 09/14/2020 7:27 pm . FINDINGS: Right-sided dialysis catheter remains in place. Lung volumes are low which accentuates int erstitial pattern. A mild interstitial edema is suspected. This could be interstitial infiltrate as w ell. No focal consolidation. Heart and vasculature are normal. No measurable pleural effusion and no pneumothorax. No acute bony abnormality seen. No acute aortic findings suspected. IMPRESSION: Shallow inspiration chest film showing accentuated interstitial pattern. Patient has a baseline prominent interstitial pattern. The low lung volumes could mask acute intersti tial edema or infiltrate.
[2020-09-14] MEDS ORDERED: FUROSEMIDE 40 MG/4 ML VIAL IV ONE (19:58)
[2020-09-14] MEDS ORDERED: ONDANSETRON 4 MG/2 ML VIAL IV PRN (19:58)
[2020-09-14] MEDS ORDERED: ALBUTEROL 2.5 MG/3 ML NEB SOL NEB PRN (19:58)
[2020-09-14] MEDS ORDERED: MORPHINE 2 MG/ML SYR IV PRN (19:58)
[2020-09-14] MEDS ORDERED: DIPHENHYDRAMINE 50 MG/ML VIAL IV ONE (20:00)
--- NOTE | 2020-09-14 20:09 | EDPHYS ---
Physician Documentation [facility] Name: Cr Orellana Age: 55 yrs Sex: Male : 1965 Arrival Date: 09/14/2020 Time: 16:22 Bed 8 Private MD: ED Physician Luis Carlos Muniz HPI: 09/14 17:51 This 55 yrs old Male presents to ER via Wheelchair with complaints of pm1 Abnormal Lab Results. 17:51 The patient presents to the emergency department with weakness of the entire body, pm1 generalized weakness, and low hemoglobin. Unable to recall value. Onset: The symptoms/episode began/occurred 3 day(s) ago. Associated signs and symptoms: Pertinent negatives: fever, chest pain, shortness of breath. Current symptoms: Generalized weakness. The patient has experienced similar episodes in the past, Patient reports history of low hemoglobin and GI bleed since he started dialysis. Patient completed dialysis treatment today and came to the ER for evaluation of his low hemoglobin from lab draw 3 days ago. Historical: - Allergies: 16:26 No Known Allergies; tw2 - PMHx: 16:26 DIALYSIS MWF; Hypertension; seasonal allergies; tw2 - Immunization history:: Adult Immunizations. - Social history:: Smoking status: . ROS: 17:51 Cardiovascular: Negative for chest pain, palpitations, and edema, Respiratory: Negative pm1 for shortness of breath, cough, wheezing, and pleuritic chest pain, Abdomen/GI: Negative for abdominal pain, nausea, vomiting, diarrhea, and constipation, Back: Negative for injury and pain, MS/Extremity: Negative for injury and deformity, Skin: Negative for injury, rash, and discoloration. 17:51 Constitutional: Positive for fatigue, weakness, Negative for fever. 17:51 Neuro: Positive for generalized weakness, Negative for dizziness, headache. Exam: 17:51 Head/Face: Normocephalic, atraumatic. pm1 17:51 Back: No spinal tenderness. No costovertebral tenderness. Full range of motion. MS/ Extremity: Pulses equal, no cyanosis. Neurovascular intact. Full, normal range of motion. 17:51 Constitutional: The patient appears in no acute distress, alert, awake, comfortable, well groomed, frail. 17:51 Cardiovascular: Exam negative for acute changes, Rate: normal, Rhythm: regular, Pulses: no pulse deficits are appreciated. 17:51 Respiratory: Exam negative for acute changes, respiratory distress, shortness of breath. 17:51 Skin: Appearance: normal except for affected area, Color: pale. 17:51 Neuro: Orientation: is normal, Mentation: is normal, Motor: moves all fours. 18:06 Abdomen/GI: Inspection: abdomen appears normal, Rectal exam: Stool: brown, guaiac pm1 positive, trace blood, Cattle Sprayer: Nereyda FRANCES. Vital Signs: 16:23 BP 118 / 73; Pulse 106; Resp 17; Temp 99.2(TE); Pulse Ox 97% on R/A; Weight 65.77 kg tw2 (R); Height 5 ft. 6 in. (167.64 cm); 18:40 BP 151 / 85; Pulse 110; Resp 18 S; Pulse Ox 99% on R/A; iw 19:09 Temp 99.9(O); iw 20:07 BP 142 / 83; Pulse 110; Resp 18 S; Pulse Ox 100% on R/A; iw 16:23 Body Mass Index 23.40 (65.77 kg, 167.64 cm) tw2 MDM: 17:37 Patient medically screened. pm1 18:09 Physician consultation: Oswaldo Martínez MD was called at 18:05, was contacted at 18:05, pm1 regarding consult, patient's condition, and will see patient. 19:14 Data reviewed: vital signs. pm1 20:06 Physician consultation: Lorenzo Verma MD was called at 20:06, was contacted at 20:06, pm1 regarding admission, patient's condition, and will see patient Wants irradiated leuko red. RBCs 2 units. 09/14 17:08 Order name: CBC with Diff; Complete Time: 20:34 pm1 09/14 17:08 Order name: BMP; Complete Time: 17:54 pm1 09/14 17:51 Order name: LFT's pm1 09/14 17:51 Order name: Magnesium; Complete Time: 19:08 pm1 09/14 17:51 Order name: NT PRO-BNP; Complete Time: 19:08 pm1 09/14 17:51 Order name: PT-INR; Complete Time: 19:14 pm1 09/14 17:51 Order name: Troponin (emerg Dept Use Only); Complete Time: 19:08 pm1 09/14 17:51 Order name: Type And Screen 1 09/14 17:51 Order name: Liver (Hepatic) Function; Complete Time: 19:08 EDWV 09/14 17:57 Order name: Bb Add On bd 09/14 18:18 Order name: Occult Blood--Ancillary; Complete Time: 19:14 bd 09/14 20:02 Order name: Packed RBC Leukored Irrad [facility] 09/14 20:02 Order name: Hematocrit [facility] 09/14 20:02 Order name: Hemoglobin [facility] 09/14 20:02 Order name: CBC with Automated Diff [facility] 09/14 20:02 Order name: CBC with Automated Diff [facility] 09/14 20:02 Order name: Comprehensive Metabolic Panel [facility] 09/14 20:02 Order name: Comprehensive Metabolic Panel [facility] 09/14 20:02 Order name: Troponin I [facility] 09/14 20:02 Order name: Troponin I [facility] 09/14 20:02 Order name: Troponin I [facility] 09/14 20:02 Order name: Troponin I [facility] 09/14 20:02 Order name: ABO/RH typing [facility] 09/14 20:02 Order name: Antibody Screen [facility] 09/14 20:21 Order name: SARS-COV-2 RT PCR; Complete Time: 20:26 [facility] 09/14 20:30 Order name: Manual Differential; Complete Time: 20:34 [facility] 09/14 21:12 Order name: Thyroid Stimulating Hormone; Complete Time: 21:19 [facility] 09/14 23:25 Order name: Glucose, Ancillary Testing; Complete Time: 23:27 [facility] 09/14 17:51 Order name: XRAY Chest (1 view); Complete Time: 19:42 pm 09/14 17:51 Order name: EKG; Complete Time: 17:52 pm09/14 17:51 Order name: Cardiac monitoring; Complete Time: 18:29 pm09/14 17:51 Order name: EKG - Nurse/Tech; Complete Time: 19:07 pm09/14 17:51 Order name: IV Saline Lock; Complete Time: 18:28 pm09/14 17:51 Order name: Labs collected and sent; Complete Time: 18:28 pm09/14 17:51 Order name: O2 Per Protocol; Complete Time: 18:28 pm09/14 17:51 Order name: O2 Sat Monitoring; Complete Time: 18:28 pm1 09/14 20:02 Order name: CONS Pharmacy Consult ED[facility] 09/14 20:02 Order name: CONS Physician Consult ED[facility] 09/14 20:02 Order name: NPO EDWV 09/15 07:56 Order name: Glucose, Ancillary Testing EDMS Administered Medications: 09/15 00:19 Drug: Benadryl 12.5 mg Route: IVP; Site: right wrist; mg2 00:19 Drug: Solu-CORTEF 50 mg Route: IVP; Site: right wrist; mg2 00:20 Not Given (Physician Discretion; patient looks lethargic and confused): Tylenol 650 mg mg2 PO once; Transfusion premedication 03:55 Drug: Lasix 80 mg Route: IVP; Site: left wrist; mg2 Disposition: 09/14/20 20:08 Hospitalization ordered by Lorenzo Verma for Inpatient Admission. Preliminary diagnosis are Anemia, unspecified, Gastrointestinal hemorrhage, unspecified. - Bed requested for Telemetry/MedSurg (Inpatient). - Status is Inpatient Admission. sv - Condition is Stable. - Problem is new. - Symptoms have improved. Addendum: 09/16/2020 23:12 Co-signature as Attending Physician, Luis Carlos Muniz MD. r n Signatures: Dispatcher [employer] [facility] Valeria Beckwith RN Nereyda Velez RN RN iw Luis Carlos Muniz MD MD rn Marinas, Patrick, KISHAN THINNER SPRAYER pm1 Catina Harmon RN RN tw2 Neptali Golden RN RN ja1 Junaid Barrios RN RN mg2 Corrections: (The following items were deleted from the chart) 09/14 19:16 18:49 CORONAVIRUS+MR.LAB.BRZ ordered. EDWV EDMS 20:05 18:49 Packed RBC Leukored ordered. EDWV EDMS 21:53 20:08 Hospitalization Ordered by Lorenzo Verma MD for Inpatient Admission. Preliminary diagnosis is Anemia, unspecified; Gastrointestinal hemorrhage, unspecified. Bed requested for Telemetry/MedSurg (Inpatient). Status is Inpatient Admission. Condition is Stable. Problem is new. Symptoms have improved. pm1 09/15 09:39 09/14 21:53 09/14/2020 20:08 Hospitalization Ordered by Lorenzo Verma MD for Inpatient ja1 Admission. Preliminary diagnosis is Anemia, unspecified; Gastrointestinal hemorrhage, unspecified. Bed requested for [facility] ER HOLD. Status is Inpatient Admission. Condition is Stable. Problem is new. Symptoms have improved. 09/15 11:19 09:39 09/14/2020 20:08 Hospitalization Ordered by Lorenzo Verma MD for Inpatient sv Admission. Preliminary diagnosis is Anemia, unspecified; Gastrointestinal hemorrhage, unspecified. Bed requested for Telemetry/MedSurg (Inpatient). Status is Inpatient Admission. Condition is Stable. Problem is new. Symptoms have improved. ja1
--- NOTE | 2020-09-14 20:09 | ER ---
Nurse's Notes [facility] Name: Cr Orellana Age: 55 yrs Sex: Male : 1965 Arrival Date: 09/14/2020 Time: 16:22 Bed 8 Private MD: Diagnosis: Anemia, unspecified;Gastrointestinal hemorrhage, unspecified Presentation: 09/14 16:23 Chief complaint: EMS states: pt from [place], staff states he has low H\T\H from labs tw2 today but it was from labs 3 days ago, pt had dialysis today and once he got back they called us. Coronavirus screen: At this time, the client does not indicate any symptoms associated with coronavirus-19. Ebola Screen: Patient denies travel to an Ebola-affected area in the 21 days before illness onset. Initial Sepsis Screen: Does the patient meet any 2 criteria? HR > 90 bpm. No. Patient's initial sepsis screen is negative. Does the patient have a suspected source of infection? No. Patient's initial sepsis screen is negative. Risk Assessment: Do you want to hurt yourself or someone else? Patient reports no desire to harm self or others. Onset of symptoms was September 14, 2020. 16:23 Method Of Arrival: Wheelchair tw2 16:23 Acuity: HUYEN 2 tw2 Triage Assessment: 16:29 General: Appears ill, Behavior is cooperative, appropriate for age. Pain: Denies pain. tw2 Historical: - Allergies: 16:26 No Known Allergies; tw2 - PMHx: 16:26 DIALYSIS MWF; Hypertension; seasonal allergies; tw2 - Immunization history:: Adult Immunizations. - Social history:: Smoking status: . Screenin:22 Abuse screen: Denies threats or abuse. Nutritional screening: No deficits noted. tw2 Tuberculosis screening: No symptoms or risk factors identified. Fall Risk Secondary diagnosis (15 points) impaired mobility. Assessment: 20:06 Reassessment: Ki Verma requesting that pt receive irradiated blood, will hold iw transfusion for now, blood bank has been notified by KISHAN Negrete. Vital Signs: 16:23 BP 118 / 73; Pulse 106; Resp 17; Temp 99.2(TE); Pulse Ox 97% on R/A; Weight 65.77 kg tw2 (R); Height 5 ft. 6 in. (167.64 cm); 18:40 BP 151 / 85; Pulse 110; Resp 18 S; Pulse Ox 99% on R/A; iw 19:09 Temp 99.9(O); iw 20:07 BP 142 / 83; Pulse 110; Resp 18 S; Pulse Ox 100% on R/A; iw 16:23 Body Mass Index 23.40 (65.77 kg, 167.64 cm) tw2 ED Course: 16:22 Patient arrived in ED. mr 16:26 Triage completed. tw2 16:29 Arm band placed on. tw2 17:07 Caden Lomas NP is PHCP. pm1 17:07 Luis Carlos Muniz MD is Attending Physician. pm1 17:07 Bed in low position. Call light in reach. Pulse ox on. NIBP on. tw2 17:10 Nereyda Delgadillo, JUAN DANIEL is Primary Nurse. iw 19:27 XRAY Chest (1 view) In Process Unspecified. EDMS 20:08 Lorenzo Verma MD is Hospitalizing Provider. pm1 09/15 06:24 No provider procedures requiring assistance completed. IV is patent, with fluids rv infusing freely, Patient admitted, IV remains in place. 07:04 Primary Nurse role handed off by Nereyda Delgadillo RN 07:04 Valeria Beckwith RN is Primary Nurse. sv Administered Medications: 00:19 Drug: Benadryl 12.5 mg Route: IVP; Site: right wrist; mg2 00:19 Drug: Solu-CORTEF 50 mg Route: IVP; Site: right wrist; mg2 00:20 Not Given (Physician Discretion; patient looks lethargic and confused): Tylenol 650 mg mg2 PO once; Transfusion premedication 03:55 Drug: Lasix 80 mg Route: IVP; Site: left wrist; mg2 Outcome: 09/14 20:08 Decision to Hospitalize by Provider. pm1 09/15 06:24 Admitted to ER Hold. Please see [facility] for further documentation. rv Condition: good Instructed on the need for admit. 11:19 Patient left the ED. sv Signatures: Dispatcher [employer] EDMS Valeria Beckwith RN RN Katy Waller mr Nereyda Delgadillo RN RN iw Caden Lomas, KISHAN GAS [employer] OIL SERVICER pm1 Catina Harmon RN RN tw2 Junaid Barrios RN RN mg2 Shemar Luna, RN RN rv
[2020-09-14 20:29] LABS: Blood Morphology Comment NOT SEEN (NOT SEEN); Platelet Estimate DECR
[2020-09-14] MEDS ORDERED: SODIUM CHLORIDE 0.9% 10ML INJ IV PRN (20:35)
--- NOTE | 2020-09-14 20:45 | P.HP ---
Certification for Inpatient With expected LOS: >2 Midnights Patient will require the following post-hospital care: Correction Practitioner: I am a practitioner with admitting privileges, knowledge of patient current condition, hospital course, and medical plan of care. Services: Services provided to patient in accordance with Admission requirements found in Title 42 Section 412.3 of the Code of Federal Regulations Patient History Date of Service: 09/14/20 Reason for admission: Weakness History of Present Illness: 55-year-old male past medical history of HTN, ESRD on HD since the last 1 year, MWF follow with , history of chronic anemia, history of GI bleed with EGD showing chronic gastritis and duodenal ulcers, hemoglobin has been ranging in the mid 7.0s . Patient in currently [facility] since the last 1 month due to inability to care for self and missed dialysis; brought from [facility] today after [facility] developing weakness and drowsiness post dialysis. Patient was noted in the ED with low hemoglobin of 5.9. Patient denies any hematochezia now but related to prior hematochezia and hematuria prior to onset of dialysis. He states he has extreme numbness of the extremities affecting his ability to feed himself. He has been markedly weak and unable to ambulate. He denies any nausea or vomiting. He denies any abdominal pain. EGD last year did not show any malignancy. He states history of CAD status post PCI with 1 stent many years ago. He denies any chest pain or palpitations now . He denies any shortness of breath he denies prior alcohol use. He has been admitted for PRBC transfusions rule out GI bleed. He was noted with mild troponin elevation at 0.24. EKG was unremarkable except for sinus tachycardia. Stool for occult blood in the ED was positive Allergies No Known Allergies Allergy (Unverified 02/22/20 16:32) Home Medications: Atorvastatin Calcium [Lipitor*] 20 mg PO BEDTIME 07/16/20 Cyanocobalamin [Vitamin B-12*] 1,000 mcg PO DAILY 07/16/20 Doxazosin [Cardura*] 2 mg PO BEDTIME 07/16/20 Folic Acid 1 mg PO DAILY 07/16/20 Gabapentin 300 mg PO BID 07/16/20 Pantoprazole Sodium [Protonix] 40 mg PO DAILY 07/16/20 Sevelamer Carbonate [Renvela*] 800 mg PO TIDWM 07/16/20 Tamsulosin [Flomax*] 0.4 mg PO BEDTIME 07/16/20 Thiamine HCl 100 mg PO DAILY 07/16/20 Zinc Sulfate [Zinc Sulfate*] 220 mg PO DAILY 07/16/20 carvediloL [Coreg*] 25 mg PO BID 07/16/20 Docusate [Colace Cap*] 100 mg PO BID #60 cap 07/25/20 Mannitol 25% [Mannitol*] 12.5 gm IV EVERY HD PRN vial 07/25/20 Famotidine [Pepcid*] 20 mg PO DAILY #30 tab 08/31/20 Nepro Shake [Nepro*] 237 ml PO DAILY #30 can 08/31/20 Sevelamer Carbonate [Renvela*] 800 mg PO TIDWM #90 tablet 08/31/20 Thiamine HCl [Vitamin B-1*] 100 mg PO DAILY #30 tablet 08/31/20 Ubidecarenone [Coenzyme Q10*] 200 mg PO DAILY #30 cap 08/31/20 traMADol HCL [Ultram*] 50 mg PO Q6H PRN #30 tab 08/31/20 - Past Medical/Surgical History Diabetic: No -: GERD -: Prior GI bleed -: ESRD on hemodialysis -: Anemia of chronic disease -: Hypertension -: Hyperlipidemia -: BPH -: pelvis sx 11 years ago Psychosocial/ Personal History: Patient is homeless. He does not have any family members. - Family History Father -: Other (see notes) Notes: alcoholism - Social History Alcohol use: No CD- Drugs: No Caffeine use: No Review of Systems 10-point ROS is otherwise unremarkable General: Weakness, Malaise Eyes: Unremarkable ENT: Unremarkable Respiratory: Unremarkable Cardiovascular: Unremarkable Gastrointestinal: Unremarkable Genitourinary: Unremarkable Musculoskeletal: Neck Pain, Shoulder Pain Integumentary: Unremarkable Neurological: Weakness, Incoordination Lymphatics: Unremarkable Physical Examination - Physical Exam General: Alert, In no apparent distress, Oriented x3, Cachectic HEENT: Atraumatic, Normocephalic, PERRLA, Other (dry oral mucosa) Neck: Supple, 2+ carotid pulse no bruit, JVD not distended Respiratory: Clear to auscultation bilaterally, Normal air movement, Diminished Cardiovascular: No edema, Regular rate/rhythm, Normal S1 S2, Other (righr chest wall permacath) Gastrointestinal: Normal bowel sounds, Soft and benign, Non-distended Musculoskeletal: No clubbing, No swelling, Other (marked muscle wasting ) Integumentary: No rashes Neurological: Normal tone, Sensation intact, Cranial nerves 3-12 intact, Abnormal gait, Abnormal strength Lymphatics: No axilla or inguinal lymphadenopathy Urinary: Dialysis catheter External genitalia: No edema, No lesions Rectal: Deferred (done by ER -) - Studies Laboratory Data (last 24 hrs) 09/14/20 18:25: PT 14.3 H, INR 1.22 09/14/20 18:25: Magnesium 1.8 D, Total Bilirubin 0.4, AST 53 H, ALT 21, Alkaline Phosphatase 84 09/14/20 17:20: Sodium 139, Potassium 4.6, BUN 22 H, Creatinine 4.41 H, Glucose 112 H 09/14/20 17:20: WBC 15.50 H, Hgb 5.9 L*, Hct 18.6 L*, Plt Count 128 L Microbiology Data (last 24 hrs): 09/14/20 18:18 Stool Occult Blood - Final Assessment and Plan - Problems (Diagnosis) (1) Hypercalcemia Current Visit: Yes Status: Acute (2) Extremity numbness Current Visit: Yes Status: Acute (3) Asthenia due to disease Current Visit: Yes Status: Acute (4) Anemia Current Visit: No Status: Acute (5) End-stage renal disease on hemodialysis Current Visit: No Status: Acute (6) GI bleed Current Visit: No Status: Acute - Advance Directives Does patient have a Living Will: No Does patient have a Durable POA for Healthcare: No - Code Status/Comfort Care Code Status Assessed: Yes Code Status: Full Code Physician Review: Patient Assessed, Agree with Above Assessment and Plan Physician Review Additional Text: #Anemia-due to blood loss and CKD-will transfused 2 units PRBC of irradiated blood today -since making urine , will dose IV Lasix to avoid fluid overload. -follow repeat H and H - keep NPO for now - start gentle IVF with D5 water to avoid hypoglycemia since patient appears clinically malnourished - presumed due to GI bleed. -Will start Protonix 40 IV Q 12 -Will consult GI-Dr. Rowland for repeat EGD-last year EGD reviewed #Asthenia/Extremity Numbness/Hypercalcemia-given the unexplained ESRD and chronic anemia as well as hypercalcemia, as well as low anion gap of 6, high suspicion for multiple myeloma Will consult Oncology for bone marrow biopsy now or as outpatient We discuss with Nephrology to do low calcium bath in dialysis will obtain SPEP #Hypertension-controlled #CAD-mild elevated troponin, may be due to demand ischemia Will place her on telemetry follow trend post PRBC #ESRD-consult renal for continuation of dialysis MWF #Advanced directive-patient is full code #DVT prophylaxis-avoid anticoagulation now since GI bleed Time Spent Managing Pts Care (In Minutes): 65
[2020-09-14] MEDS: D5W 1,000 ML IV SCH (21:00)
[2020-09-14] MEDS: PANTOPRAZOLE 40 MG INJ IVP SCH (21:00)
[2020-09-14] MEDS: GABAPENTIN 300 MG CAP PO SCH (21:00)
[2020-09-14] MEDS: DOXAZOSIN 2 MG TAB PO SCH (21:00)
[2020-09-14] MEDS: INSULIN -REGULAR HUMAN 50 UNIT/0.5 ML ML SQ SCH (21:00)
[2020-09-14] MEDS: carvediloL 25 MG TAB PO SCH (21:00)
[2020-09-14] MEDS: ATORVASTATIN 20 MG TAB PO SCH (21:00)
[2020-09-14] MEDS: TAMSULOSIN 0.4 MG SR CAP PO SCH (21:00)
[2020-09-14 21:47] VITALS: BMI 26.6
[2020-09-14] MEDS ORDERED: carvediloL 6.25 MG TAB ONE (23:04)
[2020-09-14] MEDS ORDERED: GABAPENTIN 300 MG CAP ONE (23:04)
[2020-09-14] MEDS ORDERED: ATORVASTATIN 20 MG TAB ONE (23:05)
[2020-09-14] MEDS ORDERED: PANTOPRAZOLE 40 MG INJ ONE (23:05)
[2020-09-14] MEDS ORDERED: D5W 1,000 ML IV ONE (23:05)
[2020-09-15] MEDS ORDERED: NA CHLORIDE 0.9% 100 ML ONE ×2 (00:25→03:46)
[2020-09-15] MEDS ORDERED: HYDROCORTISONE SUC 100 MG INJ ONE (00:29)
[2020-09-15] MEDS ORDERED: DIPHENHYDRAMINE 50 MG/ML VIAL ONE (00:30)
[2020-09-15] MEDS ORDERED: ACETAMINOPHEN 325 MG TABLET ONE (00:30)
[2020-09-15] MEDS ORDERED: FUROSEMIDE 40 MG/4 ML VIAL ONE (04:13)
[2020-09-15] MEDS: INSULIN -REGULAR HUMAN 50 UNIT/0.5 ML ML SQ SCH ×4 (07:30→21:00)
[2020-09-15 07:31] LABS: Albumin 2.5 g/dL (3.4-5.0); Bilirubin Total 0.4 mg/dL (0.2-1.0); Potassium 4.9 mmol/L (3.5-5.1); Protein, Total 6.5 g/dL (6.4-8.2); Troponin I 0.3 ng/mL (0.0-0.045)
[2020-09-15 07:43] LABS: Absolute Lymphocytes (CBC) 2.6 K/uL (0.7-4.9); Basophils % 0.8 % (0-1.3); Hematocrit 24.6 % (39.6-49.0); Lymphocytes % 15.6 % (15.3-44.8); MPV 8.1 fL (7.6-11.3); RBC Red Blood Cell Count 2.72 M/uL (4.33-5.43)
[2020-09-15] MEDS: SEVELAMER CARBONATE 800 MG TABLET PO SCH ×3 (08:00→17:00)
[2020-09-15] MEDS: PANTOPRAZOLE 40 MG INJ IVP SCH ×2 (09:00→21:00)
[2020-09-15] MEDS: carvediloL 25 MG TAB PO SCH ×2 (09:00→21:00)
[2020-09-15] MEDS: NEPRO SHAKE 237 ML CAN PO SCH (09:00)
[2020-09-15] MEDS: FOLIC ACID 1 MG TABLET PO SCH (09:00)
[2020-09-15] MEDS: ZINC SULFATE 220 MG CAP PO SCH (09:00)
[2020-09-15] MEDS: GABAPENTIN 300 MG CAP PO SCH ×2 (09:00→21:00)
[2020-09-15] MEDS ORDERED: ZINC SULFATE 220 MG CAP ONE (09:47)
[2020-09-15] MEDS ORDERED: GABAPENTIN 300 MG CAP ONE (09:47)
[2020-09-15] MEDS ORDERED: PANTOPRAZOLE 40 MG INJ ONE (09:48)
[2020-09-15] MEDS ORDERED: FOLIC ACID 1 MG TABLET ONE (09:48)
[2020-09-15] MEDS: D5W 1,000 ML IV SCH (11:42)
[2020-09-15] MEDS: ACETAMINOPHEN 500 MG TAB PO PRN (12:40)
--- NOTE | 2020-09-15 14:34 | P.PN ---
Subjective Date of Service: 09/15/20 Chief Complaint: Weakness Patient has no complain. He denies any bloody stools today. Physical Examination - Vital Signs Temperature: 97.9 F Blood Pressure: 139/82 Pulse: 77 Respirations: 18 Pulse Ox (%): 98 - Physical Exam General: Alert, In no apparent distress, Oriented x3 HEENT: Mucous membr. moist/pink Neck: Supple, JVD not distended Respiratory: Clear to auscultation bilaterally, Normal air movement Cardiovascular: No edema, Regular rate/rhythm, Normal S1 S2 Gastrointestinal: Normal bowel sounds, Soft and benign, Non-distended, No tenderness Musculoskeletal: No swelling, No erythema Integumentary: No rashes Neurological: Normal strength at 5/5 x4 extr, Cranial nerves 3-12 intact - Studies Laboratory Data (last 24 hrs) 09/14/20 18:25: PT 14.3 H, INR 1.22 09/14/20 18:25: Magnesium 1.8 D, Total Bilirubin 0.4, AST 53 H, ALT 21, Alkaline Phosphatase 84 09/14/20 17:20: Sodium 139, Potassium 4.6, BUN 22 H, Creatinine 4.41 H, Glucose 112 H 09/14/20 17:20: WBC 15.50 H, Hgb 5.9 L*, Hct 18.6 L*, Plt Count 128 L Microbiology Data (last 24 hrs): 09/14/20 18:18 Stool Occult Blood - Final Assessment And Plan - Current Problems (Diagnosis) (1) Acute blood loss anemia Current Visit: Yes Status: Acute (2) Asthenia due to disease Current Visit: Yes Status: Acute (3) End-stage renal disease on hemodialysis Current Visit: No Status: Acute (4) GI bleed Current Visit: No Status: Acute (5) Hypertension Current Visit: Yes Status: Acute (6) Elevated troponin Current Visit: Yes Status: Acute - Plan Status post 2 units PRBC transfusion. Posttransfusion hemoglobin is up to 8. Awaiting GI consult. Monitor H&H Monitor for active bleeding Nephrology input appreciated. Patient would continue routine hemodialysis. Troponin elevated but trended flat. Likely 2nd to demand ischemia. Patient has no chest pain, ACS is not likely. Continue home antihypertensives. Given hypercalcemia, anemia and weakness, patient is being screened for multiple myeloma. SPEP ordered. Follow up with Oncology as outpatient. Physician Review: Patient Assessed, Agree with Above Assessment and Plan Physician Review Additional Text: #Anemia-due to blood loss and CKD-will transfused 2 units PRBC of irradiated bl ood today -since making urine , will dose IV Lasix to avoid fluid overload. -follow repeat H and H - keep NPO for now - start gentle IVF with D5 water to avoid hypoglycemia since patient appears cl inically malnourished - presumed due to GI bleed. -Will start Protonix 40 IV Q 12 -Will consult GI-Dr. Rowland for repeat EGD-last year EGD reviewed #Asthenia/Extremity Numbness/Hypercalcemia-given the unexplained ESRD and chronic anemia as well as hypercalcemia, as well as low anion gap of 6, high suspicion for multiple myeloma Will consult Oncology for bone marrow biopsy now or as outpatient We discuss with Nephrology to do low calcium bath in dialysis will obtain SPEP #Hypertension-controlled #CAD-mild elevated troponin, may be due to demand ischemia Will place her on telemetry follow trend post PRBC #ESRD-consult renal for continuation of dialysis MWF #Advanced directive-patient is full code #DVT prophylaxis-avoid anticoagulation now since GI bleed
[2020-09-15] MEDS: GOLYTELY 4000 ML PO SCH (16:01)
[2020-09-15] MEDS: DOXAZOSIN 2 MG TAB PO SCH (21:00)
[2020-09-15] MEDS: TAMSULOSIN 0.4 MG SR CAP PO SCH (21:00)
[2020-09-15] MEDS: ATORVASTATIN 20 MG TAB PO SCH (21:00)
[2020-09-16] MEDS: D5W 1,000 ML IV SCH ×3 (02:07→22:54)
--- NOTE | 2020-09-16 06:32 | EKG ---
Test Date: 2020-09-14 Test Time: 19:04:51 Salvage Laborer: SANDEE MEASUREMENT RESULTS: Intervals: Rate: 111 VA: 118 QRSD: 72 QT: 316 QTc: 429 Millis: P: 64 VA: 118 QRS: -1 T: 69 INTERPRETIVE STATEMENTS: Sinus tachycardia Possible Left atrial enlargement Septal infarct, age undetermined Abnormal ECG Compared to ECG 08/26/2020 12:09:08 Sinus rhythm no longer present Myocardial infarct finding still present Electronically Signed On 09-16-20 06:27:31 LEGAL MEDIATOR by Thaddeus Llanes
[2020-09-16] MEDS: INSULIN -REGULAR HUMAN 50 UNIT/0.5 ML ML SQ SCH ×4 (07:30→21:00)
[2020-09-16 09:02] LABS: Absolute Lymphocytes (CBC) 1.9 K/uL (0.7-4.9); Basophils % 0.5 % (0-1.3); Hematocrit 22.8 % (39.6-49.0); Lymphocytes % 16.2 % (15.3-44.8); MPV 7.7 fL (7.6-11.3); RBC Red Blood Cell Count 2.54 M/uL (4.33-5.43)
[2020-09-16 09:18] LABS: Potassium 3.2 mmol/L (3.5-5.1)
[2020-09-16] MEDS: EPOETIN ALFA 10,000 UNIT/ML VIAL IV SCH (09:30)
[2020-09-16] MEDS ORDERED: NA CHLORIDE 0.9% 500 ML ONE (11:19)
[2020-09-16] MEDS: SEVELAMER CARBONATE 800 MG TABLET PO SCH ×3 (12:00→17:57)
[2020-09-16] MEDS ORDERED: propofoL 200 MG/20 ML VIAL IV ONE ×2 (12:26)
[2020-09-16] MEDS ORDERED: LIDOCAINE 1% MPF 5 ML VIAL ONE (12:26)
--- NOTE | 2020-09-16 12:44 | ENDO RPT ---
[address], [address] EGD PROCEDURE REPORT EXAM DATE: 09/16/2020 PATIENT NAME: Cr Orellana MR#: [id number] BIRTHDATE: 1965 ATTENDING: Oswaldo Mart[address]nez Dr STATUS: outpatient BOTTOM PRESSER: Vanessa Gtz RN and Mandy Hale CST INDICATIONS: The patient is a 55 yr old Male here for an EGD due to anemia PROCEDURE PERFORMED: EGD with biopsy MEDICATIONS: Per Anesthesia. TOPICAL ANESTHETIC: none CONSENT: The patient understands the risks and benefits of the procedure and understands that these risks include, but are not limited to: sedation, allergic reaction, infection, perforation and/or bleeding. Alternative means of evaluation and treatment include, among others: physical exam, x-rays, and/or surgical intervention. The patient elects to proceed with this endoscopic procedure. DESCRIPTION OF PROCEDURE: During intra-op preparation period all mechanical medical equipment was checked for proper function. Hand hygiene and appropriate measures for infection prevention was taken. Procedure, possible complications, and alternatives including but not limited to the possibility of bleeding, perforation, tear, infection, sepsis, need for surgery, need for blood transfusion, and anesthesia related complications were explained to the patient. After the risks, benefits and alternatives of the procedure were thoroughly explained, Informed consent was verified, confirmed and timeout was successfully executed by the treatment team. The patient was placed in the left lateral position. The patient was anesthetized with topical anesthesia. Through the anesthetized oropharyngeal area, the scope was passed without any difficulty. The Pentax EG-[id number] ([id number]) endoscope was introduced through the mouth and advanced to the third portion of the duodenum. Retroflexed views revealed a moderate sized hiatal hernia. The gastroscope was then slowly withdrawn and removed. A moderate sized hiatal hernia was found Multiple erosions were found in the antrum. Multiple biopsies were obtained and sent to pathology. ADVERSE EVENTS: There were no complications. IMPRESSIONS: 1. Moderate sized hiatal hernia 2. Multiple erosions in the antrum, s/p biopsies RECOMMENDATIONS: 1. await biopsy results 2. acid suppression therapy REPEAT EXAM: Oswaldo Martínez Dr eSigned: Oswaldo Martínez Dr 09/16/2020 12:44 PM cc: CPT CODES: ICD9 CODES: PATIENT NAME: Cr Orellana MR#: [id number]
--- NOTE | 2020-09-16 13:00 | ENDO RPT ---
[address], [address] COLONOSCOPY PROCEDURE REPORT EXAM DATE: 09/16/2020 PATIENT NAME: Cr Orellana MR #: [id number] BIRTHDATE: 1965 ATTENDING: Oswaldo Mart[address]nez Dr STATUS: outpatient [employer]PERVISOR [employer]: Vanessa Gtz RN and Mandy Hale CST INDICATIONS: The patient is a 55 yr old Male here for a colonoscopy due to anemia, hematochezia, and hemoccult positive stools PROCEDURE PERFORMED: Colonoscopy MEDICATIONS: Per Anesthesia. ESTIMATED BLOOD LOSS: None CONSENT: The patient understands the risks and benefits of the procedure and understands that these risks include, but are not limited to: sedation, allergic reaction, infection, perforation and/or bleeding. Alternative means of evaluation and treatment include, among others: physical exam, x-rays, and/or surgical intervention. The patient elects to proceed with this endoscopic procedure. DESCRIPTION OF PROCEDURE: During intra-op preparation period all mechanical medical equipment was checked for proper function. Hand hygiene and appropriate measures for infection prevention was taken. Procedure, possible complications, alternatives including, but not limited to possibility of bleeding, perforation, tear, infection, sepsis, need for surgery, need for blood transfusion, were explained to the patient. After the risks, benefits and alternatives of the procedure were thoroughly explained, Informed consent was verified, confirmed and timeout was successfully executed by the treatment team. The patient was placed in the left lateral position. A digital rectal exam was performed and revealed no abnormalities of the rectum. After appropriate level of anesthesia, the scope was passed. The EG-[id number] ([id number]) and EC-3890Li ([id number]) endoscope was introduced through the anus and advanced to the distal transverse colon. The quality of the prep was poor. The instrument was then slowly withdrawn as the colon was fully examined. Scope withdrawal time was 4 minutes. COLON FINDINGS: A smooth sessile polyp measuring 4 mm in size was found in the sigmoid colon. Diverticulum was found in the sigmoid colon. Moderate sized internal hemorrhoids were found. Retroflexed views revealed medium hemorrhoids. The scope was then completely withdrawn from the patient and the procedure terminated. ADVERSE EVENTS: There were no complications. IMPRESSIONS: 1. 4 mm sessile polyp in the sigmoid colon 2. Diverticulum in the sigmoid colon 3. Moderate sized internal hemorrhoids 4. Intubation to distal transverse colon with poor prep, BBPS 4 RECOMMENDATIONS: repeat colonoscopy preparation RECALL: Return in 1 day(s) for Colonoscopy. Oswaldo Martínez Dr eSigned: Oswaldo Martínez Dr 09/16/2020 1:00 PM cc: CPT CODES: ICD9 CODES: 1. 562.10 Diverticulosis of colon (without mention of hemorrhage) 2. 211.3 Benign neoplasm of colon PATIENT NAME: Cr Orellana MR#: [id number]
[2020-09-16] MEDS ORDERED: GOLYTELY 4000 ML PO SCH (14:00)
--- NOTE | 2020-09-16 14:23 | PN ---
Date of Progress Note: 09/16/2020 Subjective: The patient was seen and examined after endoscopy. He is complaining of pain in his cutler ds and legs and back. Endoscopy showed multiple gastric erosions, antral erosions along with a large hiatal hernia. Physical Examination: Vital Signs: Have been reviewed and are stable. General: He appears in no acute distress. Lungs: Clear to auscultation. Abdomen: Soft and nontender. Extremities: Showed no evidence of edema. Laboratory Data: Showing sodium of 139, potassium of 3.2, chloride of 102, BUN of 18, and creatinine of 3.3. CBC showing hemoglobin of 7.5, hematocrit 22.8, and platelet count of 103. Impression: 1.End-stage renal disease, on dialysis. 2.Anemia, concern for gastrointestinal bleed. The patient has just had multiple erosions in his sto mach, but no active bleeding. He is status post 2 units of PRBC transfusion. Monitor hemoglobin [place] sely. Start Epogen for maintaining his hemoglobin. 3.Concerning for multiple myeloma because of his unexplained hypercalcemia and anemia. The patient is being consulted with Hematology. 4.Congestive heart failure, currently stable. Plan: The patient is overall doing okay at this time. Continue all medications and plan of care. C ontinue Monday, Monday, Monday dialysis, and we will follow up closely. VV/MODL Voice ID: [id number] Report ID: [id number]
[2020-09-16] MEDS: FOLIC ACID 1 MG TABLET PO SCH (14:30)
[2020-09-16] MEDS: carvediloL 25 MG TAB PO SCH ×2 (14:30→21:48)
[2020-09-16] MEDS: ZINC SULFATE 220 MG CAP PO SCH (14:30)
[2020-09-16] MEDS: GABAPENTIN 300 MG CAP PO SCH ×2 (14:30→21:48)
[2020-09-16] MEDS: MAGNESIUM CITRATE 300 ML BOT PO SCH (14:38)
[2020-09-16] MEDS: METOCLOPRAMIDE 10 MG/2mL INJ IV SCH ×2 (14:38→21:47)
[2020-09-16] MEDS: NEPRO SHAKE 237 ML CAN PO SCH (14:39)
[2020-09-16] MEDS: PANTOPRAZOLE 40 MG INJ IVP SCH ×2 (14:40→21:00)
[2020-09-16] MEDS: ACETAMINOPHEN 500 MG TAB PO PRN (14:59)
[2020-09-16] MEDS: GOLYTELY 4000 ML PO SCH (15:00)
--- NOTE | 2020-09-16 15:16 | P.PN ---
Subjective Date of Service: 09/16/20 Chief Complaint: Weakness Patient has no complain. He denies any bloody stools today. Patient seen during dialysis. He is scheduled to have EGD and colonoscopy today. Physical Examination - Vital Signs Temperature: 98.8 F Blood Pressure: 140/72 Pulse: 92 Respirations: 16 Pulse Ox (%): 94 - Physical Exam General: Alert, In no apparent distress, Oriented x3 HEENT: Mucous membr. moist/pink Neck: Supple Respiratory: Clear to auscultation bilaterally, Normal air movement Cardiovascular: No edema, Regular rate/rhythm, Normal S1 S2 Gastrointestinal: Soft and benign, Non-distended, No tenderness Musculoskeletal: No swelling, No tenderness Integumentary: No rashes Neurological: Normal strength at 5/5 x4 extr Assessment And Plan - Current Problems (Diagnosis) (1) Acute blood loss anemia Current Visit: Yes Status: Acute (2) Asthenia due to disease Current Visit: Yes Status: Acute (3) End-stage renal disease on hemodialysis Current Visit: No Status: Acute (4) GI bleed Current Visit: No Status: Acute (5) Hypertension Current Visit: Yes Status: Acute (6) Elevated troponin Current Visit: Yes Status: Acute - Plan Status post 2 units PRBC transfusion. Posttransfusion hemoglobin down to 7.5 today. Monitor H&H and transfuse p.r.n. for hemoglobin less than 7. Patient seen by GI and plan for colonoscopy and EGD today. Monitor for active bleeding Nephrology is following Patient would continue routine hemodialysis. Troponin elevated but trended flat. Likely 2nd to demand ischemia. Patient has no chest pain, ACS is not likely. Continue home antihypertensives. Given hypercalcemia, anemia and weakness, patient is being screened for multiple myeloma. SPEP ordered. Follow up with Oncology as outpatient.
[2020-09-16] MEDS: ATORVASTATIN 20 MG TAB PO SCH (21:48)
[2020-09-16] MEDS: TAMSULOSIN 0.4 MG SR CAP PO SCH (21:48)
[2020-09-16] MEDS: DOXAZOSIN 2 MG TAB PO SCH (21:48)
[2020-09-17] MEDS: METOCLOPRAMIDE 10 MG/2mL INJ IV SCH (01:02)
[2020-09-17 04:47] LABS: Absolute Lymphocytes (CBC) 2.5 K/uL (0.7-4.9); Basophils % 1.2 % (0-1.3); Lymphocytes % 20.5 % (15.3-44.8); RBC Red Blood Cell Count 2.55 M/uL (4.33-5.43)
[2020-09-17 04:58] LABS: Potassium 3.7 mmol/L (3.5-5.1); Troponin I 0.24 ng/mL (0.0-0.045)
[2020-09-17] MEDS: INSULIN -REGULAR HUMAN 50 UNIT/0.5 ML ML SQ SCH ×4 (07:30→21:00)
[2020-09-17] MEDS: SEVELAMER CARBONATE 800 MG TABLET PO SCH ×3 (08:00→17:00)
[2020-09-17] MEDS: carvediloL 25 MG TAB PO SCH ×2 (08:53→21:05)
[2020-09-17] MEDS: GABAPENTIN 300 MG CAP PO SCH ×2 (08:55→21:05)
[2020-09-17] MEDS: NEPRO SHAKE 237 ML CAN PO SCH (08:55)
[2020-09-17] MEDS: ZINC SULFATE 220 MG CAP PO SCH (08:55)
[2020-09-17] MEDS: FOLIC ACID 1 MG TABLET PO SCH (08:55)
[2020-09-17] MEDS: PANTOPRAZOLE 40 MG INJ IVP SCH ×2 (10:00→21:00)
[2020-09-17] MEDS ORDERED: NA CHLORIDE 0.9% 500 ML ONE (12:44)
[2020-09-17] MEDS ORDERED: propofoL 200 MG/20 ML VIAL IV ONE (13:04)
[2020-09-17] MEDS: MAGNESIUM CITRATE 300 ML BOT PO SCH (13:30)
--- NOTE | 2020-09-17 13:32 | ENDO RPT ---
[address], [address] COLONOSCOPY PROCEDURE REPORT EXAM DATE: 09/17/2020 PATIENT NAME: Cr Orellana MR #: [id number] BIRTHDATE: 1965 ATTENDING: Oswaldo Martínez Dr STATUS: outpatient INDIVIDUAL PENSION ADVISER: Jairo Fields CST and Vanessa Gtz RN INDICATIONS: The patient is a 55 yr old Male here for a colonoscopy due to anemia, hgb 5.9, hematochezia, and hemoccult positive stools PROCEDURE PERFORMED: Colonoscopy with snare polypectomy MEDICATIONS: Per Anesthesia. ESTIMATED BLOOD LOSS: None CONSENT: The patient understands the risks and benefits of the procedure and understands that these risks include, but are not limited to: sedation, allergic reaction, infection, perforation and/or bleeding. Alternative means of evaluation and treatment include, among others: physical exam, x-rays, and/or surgical intervention. The patient elects to proceed with this endoscopic procedure. DESCRIPTION OF PROCEDURE: During intra-op preparation period all mechanical medical equipment was checked for proper function. Hand hygiene and appropriate measures for infection prevention was taken. Procedure, possible complications, alternatives including, but not limited to possibility of bleeding, perforation, tear, infection, sepsis, need for surgery, need for blood transfusion, were explained to the patient. After the risks, benefits and alternatives of the procedure were thoroughly explained, Informed consent was verified, confirmed and timeout was successfully executed by the treatment team. The patient was placed in the left lateral position. A digital rectal exam was performed and revealed no abnormalities of the rectum. After appropriate level of anesthesia, the scope was passed. The EC-[id number] ([id number]) endoscope was introduced through the anus and advanced to the cecum, which was identified by both the appendix and ileocecal valve. The quality of the prep was poor. The instrument was then slowly withdrawn as the colon was fully examined. Scope withdrawal time was 9 minutes. COLON FINDINGS: A smooth flat polyp measuring 6 mm in size was found in the distal transverse colon. A polypectomy was performed with a cold snare. Diverticulum was found in the sigmoid colon. The opening was small. Small internal hemorrhoids were found. Retroflexed views revealed small hemorrhoids. The scope was then completely withdrawn from the patient and the procedure terminated. ADVERSE EVENTS: There were no complications. IMPRESSIONS: 1. 6 mm flat polyp in the distal transverse colon; polypectomy was performed with a cold snare 2. Diverticulum in the sigmoid colon 3. Small internal hemorrhoids 4. Intubation to cecum RECOMMENDATIONS: 1. await biopsy results 2. avoid NSAIDS for 2 weeks RECALL: Return in 3 year(s) for Colonoscopy. Oswaldo Martínez Dr eSigned: Oswaldo Martínez Dr 09/17/2020 1:32 PM cc: CPT CODES: ICD9 CODES: 1. 562.10 Diverticulosis of colon (without mention of hemorrhage) 2. 211.3 Benign neoplasm of colon PATIENT NAME: rC Orellana MR#: [id number]
--- NOTE | 2020-09-17 16:32 | P.PN ---
Subjective Date of Service: 09/17/20 Chief Complaint: Weakness Patient has no complain. He had a colonoscopy and endoscopy yesterday. Colonoscopy was reported as incomplete. Patient prepped for another colonoscopy today. He denies any bloody bowel movement or melena. Physical Examination - Vital Signs Temperature: 98.4 F Blood Pressure: 145/77 Pulse: 79 Respirations: 16 Pulse Ox (%): 98 - Physical Exam General: Alert, In no apparent distress Neck: Supple Respiratory: Clear to auscultation bilaterally, Normal air movement Cardiovascular: No edema, Regular rate/rhythm, Normal S1 S2 Gastrointestinal: Normal bowel sounds, Soft and benign, Non-distended Musculoskeletal: No swelling, No tenderness Integumentary: No rashes Neurological: Normal strength at 5/5 x4 extr, Cranial nerves 3-12 intact Assessment And Plan - Current Problems (Diagnosis) (1) Acute blood loss anemia Current Visit: Yes Status: Acute (2) Asthenia due to disease Current Visit: Yes Status: Acute (3) End-stage renal disease on hemodialysis Current Visit: No Status: Acute (4) GI bleed Current Visit: No Status: Acute (5) Hypertension Current Visit: Yes Status: Acute (6) Elevated troponin Current Visit: Yes Status: Acute - Plan Status post 2 units PRBC transfusion. Posttransfusion hemoglobin down to 7.5. Will all the 1 more unit of PRBC transfusion to be given during hemodialysis tomorrow. EGD done yesterday: Multiple erosions in the antrum Colonoscopy: Small internal hemorrhoid and polyp. Monitor for active bleeding Nephrology is following Patient would continue routine hemodialysis. Troponin elevated but trended flat. Likely 2nd to demand ischemia. Continue home antihypertensives. Given hypercalcemia, anemia and weakness, patient is being screened for multiple myeloma. SPEP ordered. Follow up with Oncology as outpatient. Physician Review: Patient Assessed, Agree with Above Assessment and Plan
[2020-09-17] MEDS: D5W 1,000 ML IV SCH (17:23)
--- NOTE | 2020-09-17 17:27 | RAD REPORT ---
EXAM DESCRIPTION: RAD - Small Bowel Series - 09/17/2020 5:13 pm CLINICAL HISTORY: GI bleed Abdominal pain COMPARISON: Abdomen Pelvis Wo Contrast dated 05/23/2020 FINDINGS: Caustic Operator film shows a nonspecific bowel gas pattern. No obstruction or free air. No suspiciou s calcifications. Gastric size and mucosal fold pattern are normal. No delay in transit of contrast into the small farida l. Small bowel is normal in diameter with no mucosal fold thickening. No intrinsic or extrinsic mass identifiable. Terminal ileum has normal appearance. Transit time to the colon is normal. No fluoroscopy was performed. Total images acquired: 15 IMPRESSION: Normal small bowel series.
[2020-09-17] MEDS: ATORVASTATIN 20 MG TAB PO SCH (21:05)
[2020-09-17] MEDS: DOXAZOSIN 2 MG TAB PO SCH (21:05)
[2020-09-17] MEDS: TAMSULOSIN 0.4 MG SR CAP PO SCH (21:05)
[2020-09-18] MEDS: INSULIN -REGULAR HUMAN 50 UNIT/0.5 ML ML SQ SCH ×4 (07:30→21:00)
[2020-09-18] MEDS: PANTOPRAZOLE 40 MG INJ IVP SCH (09:00)
[2020-09-18] MEDS: EPOETIN ALFA 10,000 UNIT/ML VIAL IV SCH (09:35)
[2020-09-18] MEDS ORDERED: NA CHLORIDE 0.9% 250 ML IV SCH (10:00)
[2020-09-18] MEDS: SEVELAMER CARBONATE 800 MG TABLET PO SCH ×3 (10:03→16:03)
[2020-09-18] MEDS: FOLIC ACID 1 MG TABLET PO SCH (10:03)
[2020-09-18] MEDS: ZINC SULFATE 220 MG CAP PO SCH (10:03)
[2020-09-18] MEDS: carvediloL 25 MG TAB PO SCH ×2 (10:03→21:19)
[2020-09-18] MEDS: GABAPENTIN 300 MG CAP PO SCH ×2 (10:03→21:19)
[2020-09-18] MEDS: NEPRO SHAKE 237 ML CAN PO SCH (10:04)
[2020-09-18] MEDS ORDERED: NA CHLORIDE 0.9% 250 ML ONE (11:20)
[2020-09-18] MEDS: D5W 1,000 ML IV SCH (12:06)
--- NOTE | 2020-09-18 12:39 | P.DS ---
Admission Date: 09/14/20 Discharge Date: 09/18/20 Disposition: ROUTINE DISCHARGE Discharge Condition: FAIR Reason for Admission: Weakness Consultations: Nephrology-Dr. Dang GI-Dr. Martínez Procedures: EGD and colonoscopy - Problems (1) Acute blood loss anemia Current Visit: Yes Status: Acute (2) Asthenia due to disease Current Visit: Yes Status: Acute (3) End-stage renal disease on hemodialysis Current Visit: No Status: Acute (4) GI bleed Current Visit: No Status: Acute (5) Hypertension Current Visit: Yes Status: Acute (6) Elevated troponin Current Visit: Yes Status: Acute Brief History of Present Illness: 55-year-old gentleman with a history of hypertension, end-stage renal disease on hemodialysis Monday and Monday history of chronic anemia history of GI bleed with EGD showing chronic gastritis and duodenal ulcers presented to the emergency department because he missed dialysis. [facility] due to a complaint of weakness and drowsiness after dialysis. His hemoglobin in the ED was 5.9. Patient denied any hematochezia or hematemesis. Patient was admitted for further management. Hospital Course: Patient admitted to the medical floor and given a total of 3 units PRBC transfusion. He was seen and evaluated by GI Dr. Martínez we performed an endoscopy and colonoscopy. Patient was found to have antral gastritis. Colonoscopy revealed internal hemorrhoids and a polyp. Small-bowel series was performed which was normal. He was seen by nephrology and patient underwent routine hemodialysis. He has been receiving erythropoietin during dialysis for anemia secondary to chronic kidney disease. Patient placed on Protonix for gastritis. Biopsies taking during the endoscopies are pending. Patient is deemed clinically stable for discharge. Vital Signs/Physical Exam: Temp Pulse Resp BP Pulse Ox 98.6 F 78 16 144/74 H 95 09/18/20 04:00 09/18/20 04:00 09/18/20 04:00 09/18/20 04:00 09/18/20 04:00 General: Alert, In no apparent distress, Oriented x3 Respiratory: Clear to auscultation bilaterally, Normal air movement Cardiovascular: No edema, Regular rate/rhythm, Normal S1 S2 Gastrointestinal: Soft and benign, Non-distended, No tenderness Musculoskeletal: No swelling Integumentary: No rashes Neurological: Normal strength at 5/5 x4 extr Laboratory Data at Discharge: WBC 12.20 K/uL (4.3-10.9) H 09/17/20 04:09 Hgb 7.6 g/dL (13.6-17.9) L* 09/17/20 04:09 Hct 23.0 % (39.6-49.0) L 09/17/20 04:09 Plt Count 105 K/uL (152-406) L 09/17/20 04:09 PT 14.3 SECONDS (9.5-12.5) H 09/14/20 18:25 INR 1.22 09/14/20 18:25 Sodium 137 mmol/L (136-145) 09/17/20 04:09 Potassium 3.7 mmol/L (3.5-5.1) 09/17/20 04:09 BUN 18 mg/dL (7-18) 09/17/20 04:09 Creatinine 4.63 mg/dL (0.55-1.3) H D 09/17/20 04:09 Glucose 95 mg/dL (74-106) 09/17/20 04:09 Magnesium 1.8 mg/dL (1.8-2.4) D 09/14/20 18:25 Total Bilirubin 0.4 mg/dL (0.2-1.0) 09/15/20 06:55 AST 52 U/L (15-37) H 09/15/20 06:55 ALT 18 U/L (12-78) 09/15/20 06:55 Alkaline Phosphatase 72 U/L (45-117) 09/15/20 06:55 Troponin I 0.24 ng/mL (0.0-0.045) H 09/17/20 04:09 Home Medications: Atorvastatin Calcium [Lipitor*] 20 mg PO BEDTIME 07/16/20 Cyanocobalamin [Vitamin B-12*] 1,000 mcg PO DAILY 07/16/20 Doxazosin [Cardura*] 2 mg PO BEDTIME 07/16/20 Folic Acid 1 mg PO DAILY 07/16/20 Gabapentin 300 mg PO BID 07/16/20 Sevelamer Carbonate [Renvela*] 800 mg PO TIDWM 07/16/20 Tamsulosin [Flomax*] 0.4 mg PO BEDTIME 07/16/20 Thiamine HCl 100 mg PO DAILY 07/16/20 Zinc Sulfate [Zinc Sulfate*] 220 mg PO DAILY 07/16/20 carvediloL [Coreg*] 25 mg PO BID 07/16/20 Docusate [Colace Cap*] 100 mg PO BID #60 cap 07/25/20 Mannitol 25% [Mannitol*] 12.5 gm IV EVERY HD PRN vial 07/25/20 Nepro Shake [Nepro*] 237 ml PO DAILY #30 can 08/31/20 Sevelamer Carbonate [Renvela*] 800 mg PO TIDWM #90 tablet 08/31/20 Ubidecarenone [Coenzyme Q10*] 200 mg PO DAILY #30 cap 08/31/20 traMADol HCL [Ultram*] 50 mg PO Q6H PRN #30 tab 08/31/20 Epoetin [Retacrit] 10,000 unit IV EVERY HD vial 09/18/20 Iron Polysaccharide Complex [Polysaccharide Iron] 150 mg PO DAILY #30 capsule 09/18/20 Pantoprazole Sodium [Protonix] 40 mg PO BID #60 09/18/20 New Medications: Iron Polysaccharide Complex [Polysaccharide Iron] 150 mg PO DAILY #30 capsule Pantoprazole Sodium [Protonix] 40 mg PO BID #60 Diet: Renal (GI soft) Activity: Ad reta Followup: NONE,NONE [Primary Care Provider] - 1 Week Leanna Dang MD [ACTIVE - CAN ADMIT] - 1-2 Weeks Time spent managing pt's care (in minutes): 38
[2020-09-18 14:34] VITALS: O2SAT 97
--- NOTE | 2020-09-18 14:35 | P.PN ---
Subjective Date of Service: 09/18/20 Chief Complaint: Weakness, hematochezia, hematuria, anemia Subjective: Improving (No further GI bleeding. Hgb stable, at 7.5 to 7.6. Tolerating diet. Gastric biopsies revealed gastritis without HP. Colon polyp pathology lost it seems on path report. Small bowel series was negative.) Physical Examination - Vital Signs Temperature: 98.4 F Blood Pressure: 123/67 Pulse: 76 Respirations: 17 Pulse Ox (%): 97 Assessment And Plan - Current Problems (Diagnosis) (1) Hematochezia Current Visit: Yes Status: Acute (2) Hematuria Current Visit: Yes Status: Acute (3) Anemia Current Visit: No Status: Acute Comment: stable. - Plan REC: 1) pillcam 2) consider PRBC transfusion with hgb at 7.6 in setting of admission for GI bleed (lowest hgb 5.9) 3) serial H&Hs and transfuse prn 4) continue Protonix / PPI therapy Physician Review: Patient Assessed, Agree with Above Assessment and Plan Physician Review Additional Text: #Anemia-due to blood loss and CKD-will transfused 2 units PRBC of irradiated blood today -since making urine , will dose IV Lasix to avoid fluid overload. -follow repeat H and H - keep NPO for now - start gentle IVF with D5 water to avoid hypoglycemia since patient appears clinically malnourished - presumed due to GI bleed. -Will start Protonix 40 IV Q 12 -Will consult GI-Dr. Rowland for repeat EGD-last year EGD reviewed #Asthenia/Extremity Numbness/Hypercalcemia-given the unexplained ESRD and chronic anemia as well as hypercalcemia, as well as low anion gap of 6, high suspicion for multiple myeloma Will consult Oncology for bone marrow biopsy now or as outpatient We discuss with Nephrology to do low calcium bath in dialysis will obtain SPEP #Hypertension-controlled #CAD-mild elevated troponin, may be due to demand ischemia Will place her on telemetry follow trend post PRBC #ESRD-consult renal for continuation of dialysis MWF #Advanced directive-patient is full code #DVT prophylaxis-avoid anticoagulation now since GI bleed
[2020-09-18 17:27] LABS: Hematocrit 28.4 % (39.6-49.0)
--- NOTE | 2020-09-18 19:43 | CON ---
Date of Consultation: 09/16/2020 History Of Present Illness: The patient is a 55-year-old white male with history of anemia, GI bleed , gastritis, duodenal ulcers, hypertension, end-stage renal disease on hemodialysis, hyperlipidemia, gastroesophageal reflux disease, benign prostatic hypertrophy, and pelvis surgery. The patient prese nted to the hospital with weakness. He also reports hematochezia and hematuria. He has a history of chronic anemia. He reports a prior EGD that revealed duodenal ulcer with chronic gastritis. He has a history of hemoglobin ranging somewhere in the 7 to 8 range. The patient is currently in care home for the last month due to inability to care for self and missed dialysis, brought from [facility] after weakness and drowsiness noted after dialysis. Hemoglobin was low at 5.9. The pa tiesy per the chart states he had prior events of hematochezia, hematuria prior to dialysis. He has numbness in his extremities effecting his ability to feed himself. He is weak and unable to ambulate well. He has a history of coronary artery disease, status post angioplasty and stent placement many years ago. Past Medical History: Significant for any anemia, GI bleed, gastritis, duodenal ulcers, hypertension , end-stage renal disease on hemodialysis, hyperlipidemia, gastroesophageal reflux disease, benign pr ostatic hypertrophy, pelvis surgery in approximately 2008. Medications: At home include Lipitor, vitamin B12, Cardura, folic acid, gabapentin, Protonix, Renvel a, Flomax, thiamine, zinc, Coreg, Colace, mannitol, Pepcid, Nepro, vitamin B1, coenzyme Q10, and Ultr am. Allergies: NKDA. Social History: He is a , reports no kids. No tobacco. No alcohol. Family History: Father of alcohol use. Mother of murder, homicide. Review of Systems: The patient has hematochezia, hematuria, weakness. He denies any chest pain, shortness of breath, se izure, syncope, lower extremity edema, muscle aches, joint aches, backaches. No report of any depres robe as mood seems somewhat low and he does seem somewhat anxious, but no muscle aches, joint aches, backaches. He does report hematuria and hematochezia. Physical Examination: Vital Signs: The patient is 5 feet 6 inches, 165 pounds, BMI 26.6 kg/m2. He has a temperature of 99 .7 degrees Fahrenheit, pulse 97, respirations 20, blood pressure 137/72, O2 saturation 94-96% on room air. General: Somewhat dishevelled male, lying in bed, in no acute distress. HEENT: Normocephalic, atraumatic. Anicteric. Pupils equal, round, and reactive to light. Extraocu lar movements are intact. Oropharynx clear. Neck: Supple. No masses. Respirations: Clear to auscultation bilaterally. No occasional rales heard. Abdomen: Positive bowel sounds. Soft, nontender, nondistended. No hepatosplenomegaly. Extremities: No clubbing, cyanosis, or edema. 2+ pulses. Neurologic: Alert and oriented x3. Grossly nonfocal. 5/5 motor. The patient had decreased sensati on to light touch. Laboratory Data: The patient has a white count of 11.5, hemoglobin of 7.5, hematocrit 22.8, MCV 90, platelet count of 103, polys of 73%, lymphocytes 16%, monocytes 9%. The patient has a PT of 14.3, IN R of 1.22. The patient has a sodium 139, potassium 3.2, chloride 102, bicarb 30, BUN 18, creatinine 3.3, glucose 96, calcium 10.5. Yesterday, the patient had AST 52, ALT 18, alkaline phosphatase 72, t roponin I elevated at 0.3, serum protein 6.5, albumin 2.5. COVID-19 testing was negative. Chest x-r ay shows shallow inspiration, showing accumulated interstitial pattern. The patient has baseline pro minent interstitial pattern essential edema or infiltrate. Impression: 1.Hematochezia, hematuria. We will need to investigate with colonoscopy. Urology followup as an ou tpatient could be advised as well if repeat urinalysis here is negative. 2.Anemia with hemoglobin 5.9, after 2 units up to 7.5. 3.History of anemia, gastrointestinal bleed, gastritis, duodenal ulcers, hypertension, end-stage roseanne al disease on hemodialysis, hyperlipidemia, gastroesophageal reflux disease, benign prostatic hypertr ophy, pelvis surgery in 2009 approximately. Recommendations: 1.EGD, colonoscopy. 2.Serial H and H. transfuse p.r.n. 3.PPI therapy. 4.Check urinalysis with Urology consultation if positive. If negative, Urology follow up as an outp atient with prior history of hematuria by the patient. ANNIE/DOUGIE Voice ID: [id number] Report ID: [id number]
[2020-09-18 20:55] VITALS: BP 152/81; TEMP 98.9
[2020-09-18] MEDS: DOXAZOSIN 2 MG TAB PO SCH (21:19)
[2020-09-18] MEDS: TAMSULOSIN 0.4 MG SR CAP PO SCH (21:19)
[2020-09-18] MEDS: ATORVASTATIN 20 MG TAB PO SCH (21:19)
[2020-09-19 05:20] LABS: Alpha-1-Globulins 0.5 g/dL (0.2-0.3); Alpha-2-Globulins 0.9 g/dL (0.5-0.9); Gamma Globulins 0.7 g/dL (0.8-1.7); INTERPRETATION REPORT
== END 2020-09-18 21:30 | DRG 377 ==
LOC: ER 16:14 → ERHOLD 19:59 → 2ND 09-15 10:09
PROVIDERS: ADMIT Internal Medicine; ATTEND Internal Medicine
PROC: 30233N1 Transfusion of Nonautologous Red Blood Cells into Peripheral Vein, Percutaneous Approach (ICD-10-PCS; 2020-09-15)
PROC: 5A1D70Z Performance of Urinary Filtration, Intermittent, Less than 6 Hours Per Day (ICD-10-PCS; 2020-09-16)
PROC: 0DB78ZX Excision of Stomach, Pylorus, Via Natural or Artificial Opening Endoscopic, Diagnostic (ICD-10-PCS; 2020-09-16)
PROC: 0DJD8ZZ Inspection of Lower Intestinal Tract, Via Natural or Artificial Opening Endoscopic (ICD-10-PCS; 2020-09-16)
PROC: 0DBL8ZX Excision of Transverse Colon, Via Natural or Artificial Opening Endoscopic, Diagnostic (ICD-10-PCS; principal; 2020-09-17 13:00)
DX: K25.4 Chronic or unspecified gastric ulcer with hemorrhage (principal); N18.6 End stage renal disease; I50.33 Acute on chronic diastolic (congestive) heart failure; D62 Acute posthemorrhagic anemia; E44.0 Moderate protein-calorie malnutrition; I13.2 Hypertensive heart and chronic kidney disease with heart failure and with stage 5 chronic kidney disease, or end stage renal disease; K64.8 Other hemorrhoids; K63.5 Polyp of colon; K57.31 Diverticulosis of large intestine without perforation or abscess with bleeding; K44.9 Diaphragmatic hernia without obstruction or gangrene; I25.10 Atherosclerotic heart disease of native coronary artery without angina pectoris; E83.52 Hypercalcemia; E78.5 Hyperlipidemia, unspecified; D63.1 Anemia in chronic kidney disease; K21.9 Gastro-esophageal reflux disease without esophagitis; R53.1 Weakness; R77.8 Other specified abnormalities of plasma proteins; R31.9 Hematuria, unspecified; R20.0 Anesthesia of skin; Z99.2 Dependence on renal dialysis; Z95.5 Presence of coronary angioplasty implant and graft; Z79.899 Other long term (current) drug therapy; Z59.0 Homelessness; Z68.26 Body mass index [BMI] 26.0-26.9, adult; Z20.822 Contact with and (suspected) exposure to COVID-19
CPT/HCPCS: 36415; 71045; 74250; 80048; 80053; 80076; 82272; 82947; 83735; 83880; 84165; 84443; 84484; 85014; 85018; 85025; 85610; 86850; 86900; 86901; 88305; 88312; 90935; 93005; 97116; 97161; 99285; C9113; J1200; J1644; J1720; J1940; J2270; J2704; J2765; J7040; J7050; P9016; P9040; Q5105; U0003

== ENCOUNTER 2020-09-20 14:20 | Inpatient (IN) | payer OTHER ==
--- OUTSIDE RECORDS SUMMARY | 2020-09-20 14:23 | XMS REPORT | Clinical Summary ---
:1965 Author Organization [facility] Address [address] [place] [address] Care Team Providers Name Role Phone Unavailable [...] Ames MD 02/22/2020 Lab Requisition Lab after 09/20/2019 Immunizations Name Administration Dates Next Due Influenza [...] procedure are in the results section. after 09/20/2019 Results HEMODIALYSIS INPATIENT (06/03/2020 12:01 PM CDT) [...] [facility] % Lymphs 27 % [facility] % Monos 5 % [facility] % Myelo 3 (H) 0 - 0 % [facility] % Bands 3 0 - 10 % [facility] # Neutros 7.19 (H) 1.78 - 5.38 K/ul [facility] # Lymphs 3.13 1.32 - 3.57 K/ul [facility] # Monos 0.58 0.30 - 0.82 K/uL [facility] # Myelo 0.35 (H) 0.00 - 0.00 K/uL [facility] # Bands 0.35 0.00 - 0.80 K/uL [facility] Total Counted 100 [facility] nRBC (manual) 1 (H) 0 - 0 /100 WBC [facility] WBC Morphology Normal [facility] Large Platelet Present [facility] Anisocytosis 1+ few [facility] Microcytes 1+ few [facility] Artifact Present [facility] Platelet Conc Decreased [facility] Specimen Blood Narrative Performed At Road Worker ID - Chris Blakelyobar [facility] User comments: Slide comments: Performing Organization Address City/[facility]/[place] Phone Number [address] [address] CENTER PT/aPTT (06/03/2020 4:07 AM CDT)Only the most recent of12 resultswithin the time period is included. Pathologist Sig nature Protime 14.1 11.9 - 14.2 seconds [facility] INR 1.12 <=5.90 [facility] PTT 38.0 (H) 22.5 - 36.0 seconds [facility] Specimen Blood Narrative Performed At Effective 01/16/2019: PT Reference Range [facility] Change New: 11.9-14.2 Previous: 11.7-14.7 RECOMMENDED COUMADIN/WARFARIN INR THERAPY RANGES STANDARD DOSE: 2.0-3.0 Includes: PROPHYLAXIS for venous thrombosis, systemic embolization; TREATMENT for venous thrombosis and/or pulmonary embolus. HIGH RISK: Target INR is 2.5-3.5 for patients wiht mechanical heart valves. Performing Organization Address City/State/Zipcode Phone Number [place] [phone] [place] [address] [place] Calcium, Ionized (06/03/2020 4:07 AM CDT)Only the most recent of4 resultswithin the time period is included. [facility] Calcium, Ion 1.17 1.12 - 1.27 mmol/L [facility] pH, Blood 7.44 [facility] Specimen Blood Performing Organization Address City/[facility]/[place] Phone Number [facility] [address] [place] [address] [place] CBC with platelet count + automated diff (06/03/2020 4:07 AM CDT)Only the most recent of13 resultswithin the time period is included. Pathologist Sig replaced by [facility] WBC 11.6 (H) 3.5 - 10.5 K/L [facility] RBC 2.46 (L) 4.63 - 6.08 M/L [facility] Hemoglobin 7.9 (L) 13.7 - 17.5 GM/DL [facility] Hematocrit 23.2 (L) 40.1 - 51.0 % [facility] MCV 94.3 (H) 79.0 - 92.2 fL [facility] MCH 32.1 25.7 - 32.2 pg [facility] MCHC 34.1 32.3 - 36.5 GM/DL [facility] RDW 15.9 (H) 11.6 - 14.4 % [facility] Platelets 79 (L) 150 - 450 K/CU MM [facility] MPV 10.8 9.4 - 12.4 fL [facility] nRBC 1 (H) 0 - 0 /100 WBC [facility] Specimen Blood Performing Organization Address City/[facility]/Zipcode Phone Number [facility] [address] [place] [address] CENTER Phosphorus (06/03/2020 4:07 AM CDT)Only the most recent of7 resultswithin the time period is included. Pathologist Sig nature Phosphorus 4.3Comment: 2.3 - 4.7 mg/dL [facility] Specimen slightly [facility] Specimen Blood Narrative Performed At Road Worker ID - [facility] Performing Organization Address [facility]/[place] Phone Number [address] [address] [place] Magnesium (06/03/2020 4:07 AM CDT)Only the most recent of12 resultswithin the time period is included. Pathologist Sig nature Magnesium 2.0Comment: Specimen 1.6 - 2.6 mg/dL [facility] hemolyzed [facility] Specimen Blood Narrative Performed At Road Worker ID - [facility] Performing Organization Address [facility] Phone Number [address] [address] [place] Hepatic function panel (06/03/2020 4:07 AM CDT)Only the most recent of12 resultswithin the time period is included. Protein, Total 6.5Comment: 6.0 - 8.3 [facility] Specimen slightly gm/dL [facility] Albumin 3.3 (L)Comment: 3.5 - 5.0 [facility] Specimen slightly g/dL [facility] Total Bilirubin 0.3Comment: 0.2 - 1.2 [facility] Specimen slightly mg/dL [facility] Bilirubin, Direct 0.1Comment: 0.1 - 0.5 [facility] Specimen slightly mg/dL [facility] Alkaline 71 40 - 150 U/L [facility] Phosphatase [facility] AST 42 (H)Comment: 5 - 34 U/L [facility] Specimen slightly [facility] ALT 14Comment: 6 - 55 U/L [facility] Specimen slightly [facility] Specimen Blood Narrative Performed At Road Worker EVELYNE - BONILLA Moore [facility] Performing Organization Address City/State/Zipcode Phone Number [facility] [address] [place] [address] CENTER Comprehensive metabolic panel (06/03/2020 4:07 AM CDT)Only the most recent of4 resultswithin the time period is included. Protein, Total 6.5Comment: 6.0 - 8.3 [facility] Specimen slightly gm/dL [facility] Albumin 3.3 (L)Comment: 3.5 - 5.0 [facility] Specimen slightly g/dL [facility] Alkaline 71 40 - 150 U/L [facility] Phosphatase [facility] Total Bilirubin 0.3Comment: 0.2 - 1.2 [facility] Specimen slightly mg/dL [facility] Sodium 134 (L) 136 - 145 [facility] meq/L [facility] Potassium 5.1Comment: 3.5 - 5.1 [facility] Specimen slightly meq/L [facility] Chloride 96 (L) 98 - 107 [facility] meq/L [facility] CO2 24 22 - 29 meq/L [facility] BUN 60 (H) 7 - 21 mg/dL [facility] Creatinine 9.02 (H)Comment: 0.57 - 1.25 [facility] Specimen slightly mg/dL [facility] Glucose 89 70 - 105 [facility] mg/dL [facility] Calcium 9.2 8.4 - 10.2 [facility] mg/dL [facility] AST 42 (H)Comment: 5 - 34 U/L [facility] Specimen slightly [facility] ALT 14Comment: 6 - 55 U/L [facility] Specimen [facility] EGFR 6Comment: mL/min/1.73 [facility] ESTIMATED GFR IS sq [facility] NOT ACCURATE MEDICAL CENTER CREATININE CLEARANCE IN PREDICTING GLOMERULAR FILTRATION RATE. ESTIMATED GFR IS NOT APPLICABLE FOR DIALYSIS PATIENTS. Specimen Blood Narrative Performed At Road Worker ID - BONILLA Moore [facility] Performing Organization Address City/[facility]/Zipcode Phone Number [facility] [address] [place] [address] CENTER Prepare Leuko-Red RBC (06/02/2020 11:54 PM CDT)Only the most recent of3 results within the time period is included. Pathologist Sig nature CROSSMATCH COMPATIBLE SAFETRACE TX Unit ABO O Pos SAFETRACE TX UNIT NUMBER [id number] [place]AF[place] TX Status TX_TIMEINCHART SAFET[place]ACE TX Blood Bank Product RED BLOOD CELLS [place] PRODUCT CODE [id number] [place] Specimen Other Performing Organization Address City/[facility]/[place] Phone Number S[place]ACE [place] Basic Metabolic Panel (06/02/2020 3:56 AM CDT)Only the most recent of12 results within the time period is included. Sodium 135 (L) 136 - 145 meq/L [facility] Potassium 4.7 3.5 - 5.1 meq/L [facility] Chloride 98 98 - 107 meq/L [facility] CO2 25 22 - 29 meq/L [facility] BUN 36 (H) 7 - 21 mg/dL [facility] Creatinine 6.44 (H) 0.57 - 1.25 [facility] mg/dL [facility] Glucose 96 70 - 105 mg/dL [facility] Calcium 8.6 8.4 - 10.2 [facility] mg/dL [facility] EGFR 9Comment: ESTIMATED mL/min/1.73 [facility] GFR IS NOT [facility] MEDICAL ACCURATE CENTER CREATININE CLEARANCE IN PREDICTING GLOMERULAR FILTRATION RATE. ESTIMATED GFR IS NOT APPLICABLE FOR DIALYSIS PATIENTS. Specimen Blood Narrative Performed At Road Worker ID - EDASI [facility] Performing Organization Address City/[facility]/Zipcode Phone Number [address] [phone] CENTER Transfuse Leuko-Red RBC (06/01/2020 10:33 PM CDT)Only the most recent of3 resultswithin the time period is included.POC-Glucose meter (06/01/2020 10:11 PM CDT) POC-Glucose Meter 99 70 - 110 mg/dL [facility]: [facility] MEDICAL : TESTED AT [address], [address] CENTER : Road Worker/Thread Roller ID = [id number] for Jerson Morales Specimen Blood Performing Organization Address [facility]/[place] Phone Number [address] [address] CENTER Hepatitis B surface antibody (06/01/2020 7:23 PM CDT) Pathologist Sig nature Hep B S Ab 27.2 (H) <8.0 mIU/mL [facility] Specimen Blood Narrative Performed At Road Worker ID - DB [facility] Performing Organization Address [facility] Phone Number [address] [address] CENTER Type and screen, automated (05/31/2020 9:50 AM CDT)Only the most recent of2 resultswithin the time period is included. Pathologist Sig nature ABO/RH AUTOMATED O POSITIVE [facility] (BEAKER) [facility] Ab Scrn NEGATIVE [facility] Specimen Blood Performing Organization Address [facility]/[place] Phone Number [address] [address] Hemoglobin and hematocrit (05/31/2020 9:50 AM CDT)Only the most recent of6 resultswithin the time period is included. Pathologist Sig nature Hemoglobin 7.2 (L) 13.7 - 17.5 GM/DL [facility] Hematocrit 21.2 (L) 40.1 - 51.0 % [facility] Specimen Blood Narrative Performed At Road Worker ID - [id number] [facility] Performing Organization Address [facility]/[place] Phone Number [facility] [address] [place] [address] [place] Hepatitis panel, acute (05/28/2020 2:19 PM CDT) Pathologist Sig replaced by [facility] Hep A IgM Nonreactive Nonreactive [facility] Hep B C IgM Nonreactive Nonreactive [facility] Hepatitis C Ab Reactive (A) Nonreactive [facility] HBsAg Screen Nonreactive Nonreactive [facility] Specimen Blood Narrative Performed At Road Worker ID - DB [facility] Performing Organization Address [facility] Phone Number [address] [address] CENTER D-dimer (05/28/2020 3:59 AM CDT)Only the most recent of3 resultswithin the time period is included. Pathologist Sig nature D-Dimer, Quant 3.35 (H) <0.50 MG/L FEU [facility] Specimen Blood Narrative Performed At Intended Use: The D-Dimer Assay can be used [facility] to aid in the diagnosis of Deep Vein Thrombosis (DVT) and Pulmonary Embolism Disease (PED). In patients with low pre-test probability, various studies concerning STA Liatest D-dimer test have reported that with a cutoff value of 0.50 MG/L FEU, the Negative Predictive Value (NPV) regarding the exclusion of thrombosis is within 95-100% range. Performing Organization Address [facility]/[place] Phone Number [address] [address] [place] REPORT OF PROCEDURE - ENDOSCOPY URL (05/27/2020 8:30 AM CDT) Narrative Performed At This result has an attachment that is no t available. Tissue Exam (05/27/2020 8:20 AM CDT) Case Report Surgical Pathology Report Case: [id number] [facility] Authorizing Provider: Myrna Tijerina MD Collected: 05/27/2020 08:20 AM [facility] Ordering Location: [address] Received: 05/27/2020 02:50 PM [facility] SERVICE Pathologist: Rosa Cisneros MD Specimens: A) - Biopsy, G astric, random biopsies R/O H. pylori B) - Biop sy, Gastroesophageal Junction, random biopsies R/O Islas's DIAGNOSIS A. 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 GASTROESOPHAGEAL JUNCTION, ENDOSCOPIC MUCOSAL BIOPS IES - SQUAMOCOLUMNAR MUCOSA WITH ACTIVE CARDITIS - NEGATIVE FOR SPECIALIZED ISLAS METAPLASIA Signing Pathologist Direct Phone Line: COMMENT . [facility] CPT Code(s) 39793 x2, [id number] [facility] CLINICAL HISTORY Anemia [facility] SPECIMEN SOURCE A. Random gastric biopsy, rule out H. Pylori [facility] B. Random GE junction biopsy, rule out Ilsas's [facility] GROSS DESCRIPTION A. Received in formalin labe led with the patient's name, medical record number and "gastric biopsy" are two pieces of rees-white mucosa- covered tissue that measure 0.5 x 0.3 x 0.2 cm in aggregate. The sp [facility] ecimen is submitted in toto following filtration in ca ssette A1. [facility] B. Received in formalin labe [...] inflammation is present. The oxyntic mucosa s [facility] DESCRIPTION hows no significant inflamma tion. Warthin stain for Helicobacter pylori is negative. There is no dysplasia or carcinoma. [facility] CENTER B. Section shows gastroesoph ageal junctional mucosa and squamous (eosphageal) mucosa. The squamous (esophageal) component of GE junctional mucosa shows intercellular edema and elongated vascular papilla e and the columnar mucosa sh ows chronic inflammation with rare neutrophils. No goblet cell metaplasia is seen. SPECIAL STUDIES The interpretation of this c ase included the use of immunohistochemistry or special stains. [facility] Control Slides Examined: In -house known positive controls were evaluated along with the test tissue. These control slides run alongside of the patients sample show appropriate staining. [facility] antony and negative controls when available are evaluated Immunohistochemistry technic al testing was performed at [facility], Pathology Laboratory where it was developed and its performance characteristics were determined. It has not be en cleared or approved by [facility] U.S. Food and Drug Administration. The FDA has determined that such clearance or approval is not necessary. The test is used for clinical purposes. It should not be regarde d as investigational or for research. This laboratory is certified under the Clinical Laboratory Improvement Amendments of 1988 (CLIA-88) as qualified to perform high complexity clinical laboratory testing. Gross assessment [facility] 'S was performed at [facility] Pathology, [address] [place] [id number], Technical [facility] component was [facility] performed at Pathology, [address] [place] [id number], Professional [facility]' component was [facility] performed at Pathology, [address] [place] [id number], Specimen Tissue - Gastric biopsy sample (specimen ) Tissue specimen (specimen) - Biopsy, Gas troesophageal Junction Performing Organization Address City/State/Zipcode Phone Number [facility] [address] [place] [address] CENTER Manual Differential (05/27/2020 3:40 AM CDT) % Neutros (manual) 63 % [facility] % Lymphs (manual) 17 % [facility] % Monos (manual) 4 % [facility] % Eos (manual) 3 % [facility] % Baso (manual) 1 % [facility] % Metamyelo (manual) 3 (H) 0 - 0 % [facility] % Bands (manual) 3 0 - 10 % [facility] % Atypical Lymphs 6 (H) 0 - 0 % [facility] # Neutros (manual) 7.12 1.80 - 8.00 [facility] # Lymphs (manual) 1.92 1.48 - 4.50 [facility] # Monos (manual) 0.45 0.00 - 1.30 [facility] # Eos (manual) 0.34 0.00 - 0.50 [facility] # Baso (manual) 0.11 0.00 - 0.20 [facility] # Metamyelo (manual) 0.34 (H) 0.00 - 0.00 [facility] # Bands (manual) 0.3 0.0 - 0.8 KL [facility] # Atypical Lymphs 0.68 (H) 0.00 - 0.00 [facility] Total Counted 100 [facility] Bands plus Segmented 7.46 [facility] nRBC (manual) 1 (H) 0 - 0 /100 WBC [facility] WBC Morphology Normal [facility] Platelet Morphology Normal [facility] Anisocytosis 1+ few [facility] Ovalocytes 1+ few [facility] Specimen Blood Performing Organization Address City/[facility]/Zipcode Phone Number [address] [address] CENTER TRANSFUSION SERVICE REPORT - SCAN (05/26/2020 6:21 PM CDT)Only the most recent of2 resultswithin the time period is included. Narrative Performed At This result has an attachment that is no t available. Hepatitis C PCR, Quantitative (05/26/2020 12:26 PM CDT) HCV PCR, HCV RNA not HCV RNA not [facility] Quantitative detected detected [facility] Specimen Blood Narrative Performed At This test uses a Real-Time Polymerase Chain [facility] Reaction (RT-PCR) methodology and was performed using [employer] Ampliprep/[employer] TaqMan HCV test kit version 2.0 ([employer]). Reportable range for this assay is 15 - 100,000,000 IU per mL (1.18 - 8.00 Log IU/mL). Performing Organization Address City/[facility]/Zipcode Phone Number [address] [address] CENTER TSH/Free T4 If Indicated (05/25/2020 7:14 PM CDT) Pathologist Sig nature TSH 3.581 0.350 - 4.940 uIU/mL [facility] Specimen Blood Narrative Performed At Road Worker EVELYNE Crump [facility] Performing Organization Address City/State/Zipcode Phone Number [facility] [address] [place] [address] CENTER Prothrombin time/INR (05/25/2020 11:42 AM CDT) Pathologist Sig nature Protime 14.6 (H) 11.9 - 14.2 seconds [facility] INR 1.17 <=5.90 [facility] Specimen Blood Narrative Performed At Effective 01/16/2019: PT Reference Range [facility] Change New: 11.9-14.2 Previous: 11.7-14.7 RECOMMENDED COUMADIN/WARFARIN INR THERAPY RANGES STANDARD DOSE: 2.0-3.0 Includes: PROPHYLAXIS for venous thrombosis, systemic embolization; TREATMENT for venous thrombosis and/or pulmonary embolus. HIGH RISK: Target INR is 2.5-3.5 for patients wiht mechanical heart valves. Performing Organization Address City/[facility]/[place] Phone Number [address] [address] CENTER Lactate dehydrogenase (LDH) (05/25/2020 11:42 AM CDT) Pathologist Sig nature LDH 341 (H) 125 - 220 U/L [facility] Specimen Blood Narrative Performed At Road Worker ID - JR Crump [facility] Performing Organization Address [facility]/[place] Phone Number [address] [address] CENTER Peripheral Blood Smear - Path Review (05/25/2020 3:42 AM CDT) Pathologist Review Macrocytic anemia, [facility] anisopoikilocytosis, MEDICAL CENTER with rare schistocytes (0.8 per HPF). WBCs with mild left shift, including occasional myeloid precursors, no blasts seen. Few hypersegmented neutrophils. Thrombocytopenia with unremarkable morphology. Pathologist: Maddie Leon [facility] Specimen Blood Performing Organization Address City/[facility]/[place] Phone Number [address] [address] CENTER Troponin I (05/25/2020 3:42 AM CDT)Only the most recent of5 resultswithin the time period is included. Pathologist Sig nature Troponin I 0.46 (HH) 0.00 - 0.03 ng/mL [facility] Specimen Blood Narrative Performed At Troponin I (TnI) levels must be interpreted [facility] in the context of the [...] acidosis, acute neurological disease, and persistent tachyarrhythmia. Road Worker ID - DB Performing Organization Address [facility]/Zipcode Phone Number [address] [address] CENTER Lactic acid, venous (05/25/2020 3:42 AM CDT)Only the most recent of3 results within the time period is included. Pathologist Sig nature Lactate, Venous 0.42 (L) 0.50 - 2.20 [facility] mmol/L [facility] Specimen Blood Narrative Performed At Road Worker ID - DB [facility] Performing Organization Address [facility] [facility]/[place] Phone Number [address] [address] CENTER Reticulocyte count (05/25/2020 3:42 AM CDT) Pathologist Sig nature % Retic 1.5 0.5 - 1.8 % [facility] Specimen Blood Narrative Performed At Road Worker ID - [id number] [facility] Performing Organization Address [facility]/Zipcode Phone Number [address] [address] CENTER Iron, TIBC, % sat. (without ferritin) (05/25/2020 3:41 AM CDT) Pathologist Sig nature Iron 118.0 40.0 - 160.0 [facility] ug/dL [facility] TIBC 170 (L) 250 - 450 ug/dL [facility] Iron % Saturation 69 (H) 20 - 55 % [facility] Specimen Blood Narrative Performed At Road Worker ID - MARQUIS [facility] Performing Organization Address [facility]/[place] Phone Number [address] [address] CENTER Haptoglobin (05/25/2020 3:41 AM CDT) Pathologist Sig nature Haptoglobin 172 14 - 258 mg/dL [facility] Specimen Blood Narrative Performed At Road Worker ID - JR Crump [facility] Performing Organization Address [facility]/[place] Phone Number [address] [address] CENTER Ferritin (05/25/2020 3:41 AM CDT) Pathologist Sig nature Ferritin 10,294.32 (H) 5.00 - 275.00 [facility] ng/mL [facility] Specimen Blood Narrative Performed At Road Worker ID - MARQUIS [facility] Performing Organization Address [facility] Phone Number [address] [address] [place] XR chest 1 view portable / bedside [...] 4:42:11 Performing Organization Address City/State/Zipcode Phone Number [facility] [employer] US testicular (scrotum) (05/25/2020 1:24 AM CDT) Specimen Narrative Performed At FINAL REPORT [facility] TECHNIQUE: Grayscale, color Doppler, and spectral Doppler [...] [facility] Specimen Blood Narrative Performed At Specimen is considered negative for HBsAg. [facility] Performing Organization Address City/[facility]/[place] Phone Number [facility] [address] [place] [address] CENTER Drug Test, General Toxicology, Urine (05/24/2020 6:40 PM CDT) Acetone(Quest) None Detected [facility] Methanol(Quest) None Detected [facility] Drug Test,Genrl see note [facility] Tox,U Comment: [facility]POR[facility] The following compounds were detected: Cotinine (Nicotine Metabolite) Morphine Acetaminophen Hydromorphone Hydrocodone Benzoylecgonine (Cocaine Metabolite) Cyclobenzaprine For a list of compounds and limits of detection go to: http://education.IMayGou.[employer]/faq/WXV280 ISOPROPANOL None Detected [facility] ETHANOL None Detected [facility] Comment: INC[facility]PORATED Volatile Limit of Detectio n: 5 mg/dL This test was developed and its analytical performance characteristics have been determined by [employer] [place], [place]. It has not been cleared or approved by the U.S. Food and Drug Administration. This assay has been validated pursuant to the CLIA regulations and is used for clinical purposes. Specimen Urine Narrative Performed At Performing Lab [facility] [address] [facility] [place], [address] [address] [place] [address] Mckenna Lopez MD, PhD Performing Organization Address City/State/Zipcode Phone Number [place] [address] [address] B-type Natriuretic Factor (BNP) (05/24/2020 5:32 PM CDT)Only the most recent of 2 resultswithin the time period is included. Pathologist Sig donnell BNP 202 (H) 0 - 100 pg/mL [facility] Specimen Blood Narrative Performed At Road Worker ID - [facility] CENTER Performing Organization Address City/State/Zipcode Phone Number [facility] [address] [place] [address] CENTER 2D Echo W/Doppler(CW/PW/Color) (05/24/2020 9:17 AM CDT) Pathologist Sig nature Ejection Fraction [facility] [employer] [facility] Specimen Narrative Performed At Transthoracic Echocardiography Report (T TE) [facility]ART[facility] [employer] ([employer])[facility] Demographics Patient Name THIERRY PADILLA Date of Study 05/24/2020 KYLIE Gender Male Visit Number [id number] Race Unknown Room Number 7217 Number Date of 1965 Referring Physician Age 55 year(s) Negative Cleaner Nieves Lopes [place] [employer] Owen Valdivia Interpreting Renato barr, Physician MD [...] Study 05/24/2020 KYLIE Gender Male Visit Number [id number] Race Unknown Room N [facility] 7217 Number Date of 1965 Referr ing Physician Age 55 year(s) Sonogr aphrhea Tolentinosif [place] [employer] Owen Burdenp reting Greg Roche MD Procedure [...] T CI: 3.06 l/min/m^2 Performing Organization Address City/[facility]/Zipcode Phone Number [facility] MKCKESSON CPACS ABORH, manual (05/24/2020 3:57 AM CDT) Pathologist Sig nature ABO Grouping O [facility] [place] Rh Factor POS [facility] Specimen Blood Performing Organization Address City/[facility]/[place] Phone Number [address] [address] Vitamin B12 and Folate (05/24/2020 3:48 AM CDT) Pathologist Sig replaced by [facility] Vitamin B12 237 213 - 816 pg/mL [facility] Folate 4.00 (L) >=7.00 ng/mL [facility] Specimen Blood Narrative Performed At Road Worker ID - MARQUIS [facility] Performing Organization Address [facility] Phone Number [address] [address] [place] HIV-1 Antigen with HIV-1/2 Antibody (05/24/2020 3:48 AM CDT) Pathologist Sig replaced by [facility] HIV-1 Antigen with Nonreactive Nonreactive [facility] HIV 1&2 Antibody [facility] Specimen Blood Performing Organization Address [facility] Phone Number [address] [phone] [place] Hemoglobin A1c (05/24/2020 3:48 AM CDT) Pathologist Sig replaced by [facility] Hemoglobin A1C 5.8 4.3 - 6.1 % [facility] Specimen Blood Performing Organization Address [facility]/[place] Phone Number [address] [address] CENTER Blood Culture - Routine (Right Venipuncture) (05/24/2020 3:34 AM CDT)Only the most recent of2 resultswithin the time period is included. Pathologist Sig nature Result No growth in 5 days [facility] Specimen Blood - Entire right upper arm (body str ucture) Performing Organization Address City/State/Zipcode Phone Number [facility] [address] [place] [address] CENTER SARS-CoV2/RT-PCR (Symptomatic ONLY) (05/24/2020 2:33 AM CDT)Only the most recent of2 resultswithin the time period is included. SARS-COV2/RT-PCR Negative Not Detected, [facility] Negative, See [facility] external report CENTER for linked test SARS-COV-2 [facility] PERFORMING [facility] Specimen Other - Nasopharyngeal wall structure (b alicia structure) Narrative Performed At Negative results do not preclude SARS-CoV-2 [facility] infection and should not be [...] the Act. Fact Sheet for Healthcare Providers: https://www.whereIstand.com.[employer]/Documents/Xpert%20Xpre ss%20SARS%20CoV-2/Fact%20Sheets/302-1057%20SAR S-COV-2%20HEALTHCARE%20PROVIDERS%20FACT%20SHEE T.pdf Fact Sheet for Healthcare Patients: https://www.whereIstand.com.[employer]/Documents/Xpert%20Xpre ss%20SARS%20CoV-2/Fact%20Sheets/3023801%20SAR S-COV-2%20PATIENT%20FACT%20SHEET.pdf Performing Laboratory: [address] [place] [address] Performing Organization Address City/[facility]/[place] Phone Number [address] [phone] [place] Blood gas, venous (05/24/2020 1:28 AM CDT) Pathologist Sig nature pH, Raquel 7.27 (L) 7.32 - 7.42 [facility] pCO2, Raquel 26 (L) 41 - 51 mmHg [facility] pO2, Raquel 63 (H) 25 - 40 mmHg [facility] O2 Sat, Raquel 89.7 (H) 40.0 - 70.0 % [facility] HCO3, Raquel 12 (L) 21 - 29 mmol/L [facility] Base Excess, Raquel -14.0 (L) -2.0 - 3.0 [facility] mmol/L [facility] Patient Temperature 37.0 C [facility] FIO2 100.0 % [facility] Specimen Blood Performing Organization Address City/[facility]/[place] Phone Number [address] [phone] [place] EKG-SCANNED (05/24/2020) Narrative Performed At This result has an attachment that is no t available. Ordered by an unspecified provider. after 09/20/2019 Advance Directives For more information, please contact: [phone] Code Status Date Activated Date Inactivated Comments Full Code 05/24/2020 1:02 AM 06/03/2020 4:31 PM This code status was determined by: Patient
--- OUTSIDE RECORDS SUMMARY | 2020-09-20 14:27 | XMS REPORT | Continuity of Care Document ---
:1965 Author Organization [facility] t Address [address] [place] [address] Care Team Providers Name Role Phone Santy Cardona MD, Kwaku Attending Clinician [phone] Donna Nicholas MD Attending Clinician David LOWERY, P. Attending Clinician Akilah Matthews MD Attending Clinician Shea Luciano MD Attending Clinician Akbar Monsalve MD Attending Clinician Unavailable Ariana LOWERY, Yaakov Attending Clinician KWAKU MIGUEL Attending Clinician Unavailable Verónica Delgadillo DO Attending Clinician KWAKU MIGUEL Admitting Clinician Unavailable Payers Payer Name Policy Type Policy Effective Date Expiration Date Sour ce Number MEDICAREMEDICARE A [id number] 2020 [place] [id number] 2019- 00:00:00 - Medical PresentMedicare Center MEDICAIDMEDICAID OF [id number] 2020 [place] [id number] 00:00:00 - Medical 0-PresentMedicaid Center Problems Condition Condition Condition Status Onset Resolution Last Treating Co mments Source Name Details Category Date Date Treatment Clinician Date Hyperkalem Hyperkalem Disease Active 2019-[address] [facility] [place] PINA (acute PINA (acute Disease Active [facility] Allergies, Adverse Reactions, Alerts Allergy Allergy Status Severity Reaction(s) Onset Inactive Treating Comm ents Source Name Type Date Date Clinician Gabapent Drug Active 2019-[address] [facility] [place] Social History Social Habit Start Date Stop Date Quantity Comments Source Sex Assigned At [facility] Smoking Status Start Date Stop Date Source Former smoker 2020-05-27 00:00:00 2020-05-27 00:00:[address] [facility] Medications Ordered Filled Start Stop Current Ordering Indication Dosage Frequency Signature Comments Components Source Medication Medication Date Date Medication? Clinician (SIG) Name Name cyanocobala 2019-08- No 1000ug QD Take 1 C HI [...] :00 by mouth Center nightly. carvediloL 2019-08- No 25mg Q.5D Take [address] [...] Source Name Name Influenza Four-QIV 2020-05-25 Completed [facility] PF 3YR+ 00:00:00 Medical Center Vital Signs Vital Name Observation Time Observation Value Comments Source Systolic blood 2020-06-03 11:45:00 129 mm[Hg] [facility] Diastolic blood 2020-06-03 11:45:00 81 mm[Hg] [facility] Heart rate 2020-06-03 11:45:00 80 /min [facility] Body temperature 2020-06-03 11:45:00 36.72 Gissell [facility] Respiratory rate 2020-06-03 11:45:00 19 /min [facility] Oxygen saturation in 2020-06-03 11:45:00 97 /min [facility] Arterial blood by Medical Ce nter Pulse oximetry Body weight 2020-06-03 04:52:00 69.9 kg [facility] BMI 2020-06-03 04:52:00 24.88 kg/m2 [facility] Body height 2020-05-24 00:30:00 167.6 cm [facility] Procedures Procedure Date / Time Performed Performing Clinician Sourc e HEMODIALYSIS INPATIENT 2020-06-03 12:01:00 Marlo Hernandez [facility] MAGNESIUM 2020-06-03 04:07:00 Kanwal Sonido [facility] PT/APTT 2020-06-03 04:07:00 Sonido Schofield [facility] HEPATIC FUNCTION PANEL 2020-06-03 04:07:00 Serenio, [facility] CALCIUM, IONIZED 2020-06-03 04:07:00 [facility] COMPREHENSIVE METABOLIC 2020-06-03 04:07:00 [facility] PHOSPHORUS 2020-06-03 04:07:00 [facility] CBC W/PLT COUNT & AUTO 2020-06-03 04:07:00 Kanwal [facility] (CELLAVISION MANUAL DIFF) 2020-06-03 04:07:00 Sonido Schofield [facility] PREPARE LEUKO-REDUCED RBC 2020-06-02 23:54:00 Delia Matthews [facility] BASIC METABOLIC PANEL (7) 2020-06-02 03:56:00 Sonido Schofield [facility] MAGNESIUM 2020-06-02 03:56:00 Kanwal [facility] PT/APTT 2020-06-02 03:56:00 [facility] HEPATIC FUNCTION PANEL 2020-06-02 03:56:00 Kanwal [facility] CBC W/PLT COUNT & AUTO 2020-06-02 03:56:00 Kanwal Sonido [facility] (CELLAVISION MANUAL DIFF) 2020-06-02 03:56:00 Sonido Schofield [facility] TRANSFUSE LEUKO-REDUCED 2020-06-01 22:33:[address] [facility] RED BLOOD CELLS [facility] POCT-GLUCOSE METER 2020-06-01 22:11:00 Delia Matthews [facility] HEPATITIS B SURFACE 2020-06-01 19:23:00 David [facility] ukes - ANTIBODY [facility] BASIC METABOLIC PANEL (7) 2020-06-01 04:32:00 Sonido Schofield [facility] MAGNESIUM 2020-06-01 04:32:00 [facility] 2020-06-01 04:32:00 [facility]EL 2020-06-01 04:32:00 Sergema [facility] CBC W/PLT COUNT & AUTO 2020-06-01 04:32:00 [facility] (CELLAVISION MANUAL DIFF) 2020-06-01 04:32:00 [facility] HEMOGLOBIN AND HEMATOCRIT 2020-05-31 09:50:00 Cassie [facility] TYPE AND SCREEN, 2020-05-31 09:50:00 Cassie [facility] BASIC METABOLIC PANEL (7) 2020-05-31 05:34:[address] [facility] MAGNESIUM 2020-05-31 05:34:00 [facility] PT/APTT 2020-05-31 05:34:00 [facility] HEPATIC FUNCTION PANEL 2020-05-31 05:34:00 Kanwal [facility] CBC W/PLT COUNT & AUTO 2020-05-31 05:34:00 Kanwal [facility] (CELLAVISION MANUAL DIFF) 2020-05-31 05:34:00 [facility] BASIC METABOLIC PANEL (7) 2020-05-30 04:39:[address] [facility] MAGNESIUM 2020-05-30 04:39:00 [facility] PT[facility]TT 2020-05-30 04:39:00 [facility] HEPATIC FUNCTION PANEL 2020-05-30 04:39:00 Sergema [facility] CBC W/PLT COUNT & AUTO 2020-05-30 04:39:00 Sergema [facility] S [facility] (CELLAVISION MANUAL DIFF) 2020-05-30 04:39:[address] [facility] BASIC METABOLIC PANEL (7) 2020-05-29 04:50:[address] [facility] MAGNESIUM 2020-05-29 04:50:00 Serenibelgica [facility] PT/APTT 2020-05-29 04:50:00 Sergema [facility] HEPATIC FUNCTION PANEL 2020-05-29 04:50:00 Sergema [facility] PHOSPHORUS 2020-05-29 04:50:00 Christofer Concepcion [facility] CBC W/PLT COUNT & AUTO 2020-05-29 04:50:00 Sergema [facility] (CELLAVISION MANUAL DIFF) 2020-05-29 04:50:[address] [facility] HEPATITIS PANEL, ACUTE 2020-05-28 14:19:00 Delia Matthews [facility] D-DIMER 2020-05-28 03:59:00 Delia Matthews [facility] BASIC METABOLIC PANEL (7) 2020-05-28 03:59:00 SerSonido ribeiro [facility] MAGNESIUM 2020-05-28 03:59:00 Serenibelgica [facility] PT/APTT 2020-05-28 03:59:00 [facility] HEPATIC FUNCTION PANEL 2020-05-28 03:59:00 Sergema [facility] COMPREHENSIVE METABOLIC 2020-05-28 03:59:00 Delia Matthews [facility] CBC W/PLT COUNT & AUTO 2020-05-28 03:59:00 Sonido Schofield [facility] DIFFERENTIAL [facility] (CELLAVISION MANUAL DIFF) 2020-05-28 03:59:00 Sonido Schofield [facility] REPORT OF PROCEDURE - 2020-05-27 08:30:04 Myrna Monsalve [facility] ENDOSCOPY [facility] TISSUE EXAM 2020-05-27 08:20:00 [facility],BIOPSY 2020-05-27 07:59:00 Bello [facility] BASIC METABOLIC PANEL (7) 2020-05-27 03:40:00 Sonido Schofield [facility] MAGNESIUM 2020-05-27 03:40:00 Kanwal [facility] PT/APTT 2020-05-27 03:40:00 Sergema [facility] HEPATIC FUNCTION PANEL 2020-05-27 03:40:00 Kanwal [facility] CBC W/PLT COUNT & AUTO 2020-05-27 03:40:00 Kanwal Sonido [facility] DIFFERENTIAL [facility] (MANUAL DIFFERENTIAL) 2020-05-27 03:40:00 Delia Matthews [facility] TRANSFUSION SERVICE 2020-05-26 18:21:41 Provider, Christopher [facility] REPORT - SCAN [facility] HEPATITIS C PCR, 2020-05-26 12:26:00 Vee Hernandez [facility] D-DIMER 2020-05-26 12:26:00 Vee Hernandez [facility] BASIC METABOLIC PANEL (7) 2020-05-26 03:50:00 SerSonido ribeiro [facility] MAGNESIUM 2020-05-26 03:50:00 Sergema Sonido [facility] PHOSPHORUS 2020-05-26 03:50:00 Seregma [facility] PT/APTT 2020-05-26 03:50:00 Kanwal [facility] HEPATIC FUNCTION PANEL 2020-05-26 03:50:00 Kanwal [facility] CALCIUM, IONIZED 2020-05-26 03:50:00 Kanwal [facility] COMPREHENSIVE METABOLIC 2020-05-26 03:50:00 Marlo Hernandez [facility] CBC W/PLT COUNT & AUTO 2020-05-26 03:50:00 Kanwal [facility] (CELLAVISION MANUAL DIFF) 2020-05-26 03:50:[address] [facility] PREPARE LEUKO-REDUCED RBC 2020-05-25 23:54:[address] [facility] TSH/FREE T4 IF INDICATED 2020-05-25 19:14:00 Vee Hernandez [facility] HEMOGLOBIN AND HEMATOCRIT 2020-05-25 19:14:00 Layo Ley [facility] TRANSFUSION SERVICE 2020-05-25 18:01:32 Christopher Rivas [facility] HEMOGLOBIN AND HEMATOCRIT 2020-05-25 11:42:00 Layo Ley [facility] LACTATE DEHYDROGENASE 2020-05-25 11:42:00 [place] Layo [facility] (LDH) [facility] PROTHROMBIN TIME/INR 2020-05-25 11:42:00 [place] Layo [facility] D-DIMER 2020-05-25 11:42:00 [place] [facility] CBC W/PLT COUNT & AUTO 2020-05-25 11:42:00 Av Layo [facility] DIFFERENTIAL [facility] TROPONIN I 2020-05-25 03:42:00 Kanwal Sonido [facility] MAGNESIUM 2020-05-25 03:42:00 Kanwal [facility] PHOSPHORUS 2020-05-25 03:42:00 Kanwal [facility] HEPATIC FUNCTION PANEL 2020-05-25 03:42:00 Kanwal [facility] CALCIUM, IONIZED 2020-05-25 03:42:00 Kanwal [facility] LACTIC ACID, VENOUS 2020-05-25 03:42:[address] [facility] COMPREHENSIVE METABOLIC 2020-05-25 03:42:00 [facility] RETICULOCYTE COUNT 2020-05-25 03:42:00 [facility] PERIPHERAL BLOOD SMEAR - 2020-05-25 03:42:00 Bala Genao [facility] - PATHOLOGIST REVIEW Medical Cente r CBC W/PLT COUNT & AUTO 2020-05-25 03:42:00 Kanwal [facility] DIFFERENTIAL [facility] (CELLAVISION MANUAL DIFF) 2020-05-25 03:42:00 Kanwal [facility] PT/APTT 2020-05-25 03:41:00 [facility] IRON, TIBC, % SAT. 2020-05-25 03:41:00 [facility] (WITHOUT FERRITIN) [facility] 2020-05-25 03:41:00 [facility] HAPTOGLOBIN 2020-05-25 03:41:00 [facility] XR CHEST 1 VIEW 2020-05-25 02:00:00 [facility] PORTABLE/BEDSIDE [facility] US TESTICULAR (SCROTUM) 2020-05-25 01:24:00 [facility] TRANSFUSE LEUKO-REDUCED 2020-05-25 01:22:54 Kanwal [facility] RED BLOOD CELLS [facility] PREPARE LEUKO-REDUCED RBC 2020-05-24 21:55:00 [facility] HEMO[facility]IN [facility] HEMATOCRIT 2020-05-24 20:40:00 José Manuel Leyegan [facility] HEPATITIS B SURFACE 2020-05-24 20:40:00 Marlo Hernandez [facility] DRUG TEST, GENERAL 2020-05-24 18:40:00 José Manuel Leyegan [facility] - TOXICOLOGY, URINE [facility] TROPONIN I 2020-05-24 17:32:00 Kanwal [facility] B-TYPE NATRIURETIC FACTOR 2020-05-24 17:32:[address] [facility] (BNP) [facility] TROPONIN I 2020-05-24 12:30:00 Kanwal [facility] HEMOGLOBIN AND HEMATOCRIT 2020-05-24 12:30:00 José Manuel Leyegan [facility] BASIC METABOLIC PANEL (7) 2020-05-24 12:30:00 Av [facility] 2D ECHO W/ DOPPLER 2020-05-24 09:17:10 Santy Cardona [facility] (CW/PW/COLOR) [facility] HEMOGLOBIN AND HEMATOCRIT 2020-05-24 08:02:00 Adela Miguel [facility] TROPONIN I 2020-05-24 08:02:00 Kanwal [facility] BASIC METABOLIC PANEL (7) 2020-05-24 08:02:00 José Manuel Leyegan [facility] PHOSPHORUS 2020-05-24 08:02:00 Av [facility] TRANSFUSE LEUKO-REDUCED 2020-05-24 07:31:48 Kanwal [facility] RED BLOOD CELLS [facility] LACTIC ACID, VENOUS 2020-05-24 03:57:[address] [facility] ABORH, MANUAL 2020-05-24 03:57:00 LionelVidhi cline Emily [facility] CALCIUM, IONIZED 2020-05-24 03:56:00 Sergema [facility] BASIC METABOLIC PANEL (7) 2020-05-24 03:48:00 Kanwal [facility] MAGNESIUM 2020-05-24 03:48:00 Sergema [facility] PHOSPHORUS 2020-05-24 03:48:00 Sergema [facility] PT/APTT 2020-05-24 03:48:00 Kanwal [facility] HEPATIC FUNCTION PANEL 2020-05-24 03:48:00 Kanwal [facility] HEMOGLOBIN A1C 2020-05-24 03:48:00 Santy [facility] HIV-1 ANTIGEN WITH 2020-05-24 03:48:00 [facility]2 ANTIBODY [facility] VITAMIN B12 AND FOLATE 2020-05-24 03:48:00 Santy CardonaLallie [facility] CBC W/PLT COUNT & AUTO 2020-05-24 03:48:00 Kanwal [facility] DIFFERENTIAL [facility] BLOOD CULTURE 2020-05-24 03:34:00 Sergema [facility] PT/APTT 2020-05-24 02:59:00 Sergema [facility] TYPE AND SCREEN, 2020-05-24 02:59:00 [facility] AUTOMATED [facility] BLOOD CULTURE 2020-05-24 02:58:00 Sergema [facility] SARS-COV2/RT-PCR ([facility] & 2020-05-24 02:33:00 Sergema [facility] - REF LABS) [facility] XR CHEST 1 VIEW 2020-05-24 01:37:00 Sonido Schofield [facility] - PORTABLE/BEDSIDE [facility] BASIC METABOLIC PANEL (7) 2020-05-24 01:29:[address] [facility] MAGNESIUM 2020-05-24 01:29:[address] Kan[address] [facility] PHOSPHORUS 2020-05-24 01:29:00 Kanwal [facility] HEPATIC FUNCTION PANEL 2020-05-24 01:29:00 [facility] S t [facility] LACTIC ACID, VENOUS 2020-05-24 01:29:00 [facility] L ukes [facility] TROPONIN I 2020-05-24 01:29:00 [facility] CBC W/PLT COUNT & AUTO 2020-05-24 01:29:00 Kanwal [facility] - DIFFERENTIAL [facility] BLOOD GAS, VENOUS 2020-05-24 01:28:00 [facility] B-TYPE NATRIURETIC FACTOR 2020-05-24 01:27:00 [facility] (BNP) [facility] REPORT OF PROCEDURE - 2020-05-24 00:00:00 Provider, Christopher [facility] - ENDOSCOPY SCAN Scanning [facility] SARS-COV2/RT-PCR ([facility] & 2020-02-22 10:34:00 [facility] - REF LABS) [facility] Plan of Care Planned Activity Planned Date Details Comments Source Future Scheduled 2020-08-[address] [facility] - Test 00:00:00 (12+) [code = [facility] DEPRESSION SCREENING (12+)] Future Scheduled 2020-05-[address] [facility] - Test 00:00:00 (WELCOME TO MEDICARE) [facility] [code = Medicare IPPE (WELCOME TO MEDICARE)] Future Scheduled [address] [facility] - Test 00:00[facility]00 (procedure) [code = Medical Center 02845629] Future Scheduled 1982 HEPATITIS B VACCINE [facility] - Test 00:00:00 (1 of 3 - Risk Medical Cente r Recombivax 3-dose series) [code = HEPATITIS B VACCINE (1 of 3 - Risk Recombivax 3-dose series)] Future Scheduled 1965 Screening for ANALILIA [place] es - Test 00:00:00 malignant neoplasm of [facility] colon (procedure) [code = 760880432] Encounters Start End Encounter Admission Attending Care Care Encounter Source Date/Time Date/Time Type Type Clinicians Facility Department ID 2020-05-08 2020-05-08 Emergency [facility] [id number] 14:38:00 18:28:00 Renata Ramos [id number] [place] [id number] [place] [id number] Results Test Description Test Time Test [...] K/CU MM L MPV (test code = 40672-1) 10.8 fL 9.4-12.4 nRBC (test code = 413) 1 0- 0 /100 WBC H Lab Interpretation (test code = 26689-0) [facility] [id number] 10:02:00 Test Item Value Reference Range Interpretation [...] = 3438) FANTA (test code = FANTA) House Calls Nurse ID - Chris Mtz comments: Slide comments: Lab Interpretation (test Abnormal code = 42699-8) [facility] W/PLT COUNT & AUTO [id number] 10:02:00 Test Item Value Reference Range Interpretation [...] CONCENTRATION Decreased (CELLAVISION)(BEAKER) (test code = 3438) House Calls Nurse ID - Chris Bibi comments: Slide comments:Comprehensive metabolic [id number] 05:15:00 Test Item Value Reference Range Interpretation Comments Protein, Total (test 6.5 6.0- 8.3 gm/dL Speci men slightly code = 2885-2) hemolyzed Albumin (test code = 3.3 g/dL 3.5-5 L Specime n slightly 28916-1) hemolyzed Alkaline Phosphatase 71 U/L 40-150 (test [...] Calcium (test code = 9.2 mg/dL 8.4-10.2 70694-8) AST (test code = 42 U/L 5-34 H Specimen sl ightly 1920-8) hemolyzed ALT (test code = 14 U/L 6-55 Specimen sl ightly 1742-6) hemolyzed EGFR (test code = 6 mL/min/1.73 [place] [address]-3) NOT ACCURATE CREATININE CLEARANCE IN PREDICTING GLOMERULAR FILTRATION RATE . ESTIMATED GFR I S NOT APPLICABLE FOR DIALYSIS PATIENTS. FANTA (test code = FANTA) House Calls Nurse ID - BONILLA M Lab Interpretation Abnormal (test code = 49001-7) [facility] [id number] 05:15:00 Test Item Value Reference Range Interpretation [...] S NOT APPLICABLE FOR DIALYSIS PATIEN TS. House Calls Nurse ID - BONILLA epatic function [id number] 05:03:00 Test Item Value Reference Range Interpretation Comments Protein, Total (test 6.5 6.0- 8.3 gm/dL Speci men code = 2885-2) slightly hemolyzed Albumin (test code = 3.3 g/dL 3.5-5 [place] [address]-3) slightly hemolyzed Total Bilirubin (test 0.3 mg/dL [...] slightly hemolyzed FANTA (test code = FANTA) House Calls Nurse ID - BONILLA Lab Interpretation Abnormal (test code = 15534-8) [facility] 05:03:00 Test Item Value Reference Range Interpretation Comments Magnesium (test code = 2.0 mg/dL 1.6-2.6 Speci men 28238-4) slightly hemolyzed FANTA (test code = FANTA) House Calls Nurse ID - BONILLA Lab Interpretation Normal (test code = 42612-6) [facility] 05:03:00 Test Item Value Reference Range Interpretation Comments Phosphorus (test code 4.3 mg/dL 2.3-4.7 Specim en = 2777-1) slightly hemolyzed FANTA (test code = FANTA) House Calls Nurse ID - BONILLA M Lab Interpretation Normal (test code = 63369-3) [facility]2020-10-14 05:03:00 Test Item Value Reference Range Interpretation Comments MAGNESIUM (BEAKER) 2.0 mg/dL 1.6-2.6 Specimen slightly (test code = 627) hemolyzed House Calls Nurse ID - BONILLA [id number] 05:03:00 Test Item Value Reference Range Interpretation Comments PHOSPHORUS (BEAKER) 4.3 mg/dL 2.3-4.7 Specimen slightly (test code = 604) hemolyzed House Calls Nurse ID - BONILLA MHEPATIC FUNCTION [id number] 05:03:00 Test Item Value Reference Range Interpretation [...] Specimen slightly (test code = 347) hemolyzed House Calls Nurse ID - BONILLA [id number] 04:44:00 Test Item Value Reference Range Interpretation Comments Protime (test code = 14.1 11.9- 14.2 5902-2) seconds INR (test code = 1.12 <=5.90 6301-6) PTT (test code = 38.0 22.5- 36.0 H 65418-8) seconds FANTA (test code = FANTA) Effective 01/16/2019: PT Reference Range ChangeNew: 11.9-14.2 Previous: 11.7-14.7 RECOMMENDED COUMADIN/WARFARIN INR THERAPY RANGESSTANDARD DOSE: 2.0-3.0 Includes: PROPHYLAXIS for venous thrombosis, systemic embolization; TREATMENT for venous thrombosis and/or pulmonary embolus.HIGH RISK: Target INR is 2.5-3.5 for patients wiht mechanical heart valves. Lab Interpretation Abnormal (test code = 36540-0) [facility] HospitalPT/[id number] 04:44:00 Test Item Value Reference Range Interpretation [...] is2.5-3.5 for patients wiht mechanical heart valves.Calcium, [id number] 04:34:00 Test Item Value Reference Range Interpretation Comments Calcium, Ion (test code = 1993-3) 1.17 mmol/L 1.12-1.27 pH, Blood (test code = 51412-9) 7.44 [facility] HospitalCAL[facility]UM, [id number] 04:34:00 Test Item Value Reference Range Interpretation Comments CALCIUM IONIZED (BEAKER) (test 1.17 mmol/L 1.12-1.27 code = 698) PH, BLOOD (BEAKER) (test code = 7.44 1810) Prepare Leuko-Red [id number] 23:54:00 Test Item Value Reference Range Interpretation Comments CROSSMATCH (test code = 2264) COMPATIBLE Unit ABO (test code = O Pos 1762717) UNIT NUMBER (test code = [id number] 934-0) Status (test code = 5173230) TX_TIMEINCHART Blood Bank Product (test code RED BLOOD CELLS = 2263) PRODUCT CODE (test code = Z6366M02 933-2) [facility] W/PLT COUNT & AUTO [id number] 07:51:00 Test Item Value Reference Range Interpretation [...] CONCENTRATION Decreased (CELLAVISION)(BEAKER) (test code = 3438) House Calls Nurse ID - Abby Higgins comments: Slide comments:Basic Metabolic [id number] 05:22:00 Test Item Value Reference Range Interpretation [...] Calcium (test code = 8.6 mg/dL 8.4-10.2 78482-7) EGFR (test code = 9 mL/min/1.73 [place] [address]-4) NOT ACCURATE CREATININE CLEARANCE IN PREDICTING GLOMERULAR FILTRATION RATE . ESTIMATED GFR I S NOT APPLICABLE FOR DIALYSIS PATIENTS. FANTA (test code = FANTA) House Calls Nurse ID - EDASI Lab Interpretation Abnormal (test code = 31694-3) [facility] Hospital[facility] METABOLIC [id number] 05:22:00 Test Item Value Reference Range Interpretation [...] S NOT APPLICABLE FOR DIALYSIS PATIEN TS. House Calls Nurse ID - [id number] 04:52:00 Test Item Value Reference Range Interpretation Comments MAGNESIUM (BEAKER) (test code = 1.9 mg/dL 1.6-2.6 627) House Calls Nurse ID - EDASIHEPATIC FUNCTION [id number] 04:52:00 Test Item Value Reference Range Interpretation [...] (test code = 15 U/L 6-55 347) House Calls Nurse ID - EDASIPT/[id number] 04:20:00 Test Item Value Reference Range Interpretation [...] is2.5-3.5 for patients wiht mechanical heart valves.POC-Glucose [id number] 22:24:00 Test Item Value Reference Range Interpretation Comments POC-Glucose Meter (test 99 mg/dL 70-110 : TE STED AT [facility] code = 1538) [address] [facility] [place], [address] 30: House Calls Nurse/Techni connie ID = [id number] for Jerson Morales Lab Interpretation (test Normal code = 60164-8) [facility] [id number] 22:24:00 Test Item Value Reference Range Interpretation Comments POC-GLUCOSE METER 99 mg/dL 70-110 : TESTED A T [facility] 6720 (BEAKER) (test code = [place], 1538) [address]: House Calls Nurse/Techni connie ID = [id number] for Jerson Soriano Hepatitis B surface [id number] 20:25:00 Test Item Value Reference Range Interpretation Comments Hep B S Ab (test code = 27.2 <8.0 mIU/mL H 87700-5) [facility] (test code = FANTA) House Calls Nurse ID - DB Lab Interpretation (test Abnormal code = 67926-8) [facility] SURFACE [id number] 20:25:00 Test Item Value Reference Range Interpretation Comments HEPATITIS B SURFACE ANTIBODY 27.2 mIU/mL <8.0 H (BEAKER) (test code = 647) House Calls Nurse ID - DBDrug Test, General Toxicology, [id number] 11:06:00 Test Item Value Reference Interpretation Comments Range Acetone(Quest) None Detected (test code = 3053) Methanol([facility]) None Detected (test code = 3054) Drug Test,Genrl see note The followin g compounds were Tox,U (test detected: Co tinine code = 9940060) (Nicotine Me tabolite) Morphine Osvaldo taminophen Hydromorphone Hydrocodone Benzoylecgoni ne (Cocaine Metabolite) Cyclobenzaprine For a list of compounds an d limits of detection go to:http://educa tion.[employer]/faq /SZM407 ISOPROPANOL None Detected (test code = 4027205) ETHANOL (test None Detected Volatile code = 7821156) Limit of Det ection: 5 mg/dL This test was d ivanaoped and its analytical performancechar acteristics have been deter mined by [employer] [facility] [place], [place]. It hasnot been enoch ared or approved by the U.S. Food and DrugAdministrat ion. This assay has been validated pursuantto the CLIA regulations and is used for clinicalpurpose s. FANTA (test code Performing Lab = FANTA) [facility], [address] [facility] [place] [address] Mckenna Lopez MD, PhD [facility] W/PLT COUNT & AUTO [id number] 08:11:00 Test Item Value Reference Range Interpretation [...] CONCENTRATION Decreased (CELLAVISION)(BEAKER) (test code = 3438) House Calls Nurse ID - Jonna Pascual comments: Slide comments:BASIC [...] S NOT APPLICABLE FOR DIALYSIS PATIEN TS. House Calls Nurse ID - BONILLA [id number] 05:45:00 Test Item Value Reference Range Interpretation Comments MAGNESIUM (BEAKER) (test code = 2.2 mg/dL 1.6-2.6 627) House Calls Nurse ID - BONILLA MHEPATIC FUNCTION [id number] 05:45:00 Test Item Value Reference Range Interpretation [...] (test code = 11 U/L 6-55 347) House Calls Nurse ID - BONILLA MPT/[id number] 05:17:00 Test Item Value Reference Range Interpretation [...] patients wiht mechanical heart valves.Type and screen, [id number] 11:24:00 Test Item Value Reference Range Interpretation Comments ABO/RH AUTOMATED (BEAKER) (test O POSITIVE code = 2260) Ab Scrn (test code = 890-4) NEGATIVE [facility]Hemoglobin and [id number] 09:57:00 Test Item Value Reference Range Interpretation Comments Hemoglobin (test code = 7.2 13.7- 17.5 GM/DL L 786-4) Hematocrit (test code = 21.2 % 40.1-51 L 4544-3) FANTA (test code = FANTA) House Calls Nurse ID - [id number] Lab Interpretation (test Abnormal code = 47886-7) [facility] HospitalHEMOGLOBIN AND [id number] 09:57:00 Test Item Value Reference Range Interpretation Comments HEMOGLOBIN (BEAKER) (test code = 7.2 GM/DL 13.7-17.5 L 410) HEMATOCRIT (BEAKER) (test code = 21.2 % 40.1-51.0 L 411) House Calls Nurse ID - [id number] W/PLT COUNT & AUTO [id number] 08:25:00 Test Item Value Reference Range Interpretation [...] CONCENTRATION Decreased (CELLAVISION)(BEAKER) (test code = 3438) House Calls Nurse EVELYNE Adams comments: Slide comments:BASIC METABOLIC [id number] 06:33:00 Test Item Value Reference Range Interpretation [...] S NOT APPLICABLE FOR DIALYSIS PATIEN TS. House Calls Nurse ID - BANDAR [id number] 06:22:00 Test Item Value Reference Range Interpretation Comments MAGNESIUM (BEAKER) (test code = 2.1 mg/dL 1.6-2.6 627) House Calls Nurse ID - BANDAR LHEPATIC FUNCTION [id number] 06:22:00 Test Item Value Reference Range Interpretation [...] (test code = 12 U/L 6-55 347) House Calls Nurse ID - BANDAR LPT/[id number] 06:13:00 Test Item Value Reference Range Interpretation [...] mechanical heart valves.CBC W/PLT COUNT & AUTO [id number] 07:32:00 Test Item Value Reference Range Interpretation [...] (CELLAVISION)(BEAKER) (test code = 3438) BASIC METABOLIC [id number] 06:02:00 Test Item Value Reference Range Interpretation [...] S NOT APPLICABLE FOR DIALYSIS PATIEN TS. [id number] 06:00:00 Test Item Value Reference Range Interpretation Comments MAGNESIUM (BEAKER) (test code = 2.0 mg/dL 1.6-2.6 627) HEPATIC FUNCTION [id number] 06:00:00 Test Item Value Reference Range Interpretation [...] (test code = 12 U/L 6-55 347) PT/[id number] 05:30:00 Test Item Value Reference Range Interpretation [...] mechanical heart valves.CBC W/PLT COUNT & AUTO [id number] 07:05:00 Test Item Value Reference Range Interpretation [...] CONCENTRATION Adequate (CELLAVISION)(BEAKER) (test code = 3438) House Calls Nurse ID - Kaylee Martines comments: Slide comments:BASIC [...] S NOT APPLICABLE FOR DIALYSIS PATIEN TS. House Calls Nurse ID - [id number] 05:42:00 Test Item Value Reference Range Interpretation Comments MAGNESIUM (BEAKER) 1.7 mg/dL 1.6-2.6 Specimen slightly (test code = 627) hemolyzed House Calls Nurse ID - [id number] 05:42:00 Test Item Value Reference Range Interpretation Comments PHOSPHORUS (BEAKER) 4.8 mg/dL 2.3-4.7 H Specimen slightly (test code = 604) hemolyzed House Calls Nurse ID - EDASIHEPATIC FUNCTION [id number] 05:42:00 Test Item Value Reference Range Interpretation [...] Specimen slightly (test code = 347) hemolyzed House Calls Nurse ID - EDASIPT/[id number] 05:19:00 Test Item Value Reference Range Interpretation [...] = No growth in 5 days 6463-4) [facility] [id number] 05:01:00 Test Item Value Reference Range Interpretation Comments CULTURE (BEAKER) (test No growth in 5 days code = 1095) BLOOD [id number] 05:01:00 Test Item Value Reference Range Interpretation Comments CULTURE (BEAKER) (test No growth in 5 days code = 1095) Hepatitis panel, [id number] 18:27:00 Test Item Value Reference Range Interpretation Comments Hep A IgM (test code = Nonreactive Nonreactive 54538-2) Hep B C IgM (test code = Nonreactive Nonreactive 06003-8) Hepatitis C Ab (test code = Reactive Nonreactive A 10405-2) HBsAg Screen (test code = Nonreactive Nonreactive 5195-3) FANTA (test code = FANTA) House Calls Nurse ID - DB Lab Interpretation (test Abnormal code = 55692-2) [facility]AT[facility] PANEL, [id number] 18:27:00 Test Item Value Reference Range Interpretation Comments HEPATITIS A IGM ANTIBODY (BEAKER) Nonreactive Nonreactive (test code = 498) HEPATITIS B CORE IGM ANTIBODY Nonreactive Nonreactive (BEAKER) (test code = 645) HEPATITIS C ANTIBODY (BEAKER) Reactive Nonreactive A (test code = 367) HEPATITIS B SURFACE ANTIGEN (2) Nonreactive Nonreactive (BEAKER) (test code = 2585) House Calls Nurse ID - DBTissue [id number] 13:01:00 Test Item Value Reference Range Interpretation Comments Case Report (test Surgical Pathology code = 104) Report Case: [id number] Authorizing Provider: Myrna Monsalve MD Collected: 05/27/2020 08:20 AM Ordering Location: [address] Received: 05/27/2020 02:50 PM SERVICE Pathologist: Rosa Cisneros MD Specimens: A) - Biopsy, Gastric, random biopsies R/O H. pylori B) - Biopsy, Gastroesophageal Junction, random biopsies R/O Islas's DIAGNOSIS (test code e6fvzVGoGJKvd2buMTXuySYw = 3220) ZzEwMzNcZnRuYmpcdWMxIHtc irBjRDmeu4GjA2QgVfSoWUbf bnNpXGRlZmxhbmcxMDMzXGZ0 reHiKZLoRIznNDTfCIdmAq7h oAQeiXbsBaCoOOVxj2pbypVI xqowxMm3x0hoAWXtOvV0xWQs PHqrD7lhlkRabTLeYEGkJWg0 fP79ZXSyjZ0clJQuXLyxwlAv CmH6CYbiWOKmVfK3RDPagUOx JFKlF2lxCYEmRDtwJNYxFLdc qBYfPCM1tEkvo2E4lCTurMXe jQsrDnNwDqLfGWTUj4UtMBz1 aRshJ3DnVYWqKtS5fTAmYTHq IBpsLSFxSVHehuB2xE45HUdr vjZ1tAUjy6Ijx98or396jI7h sCPcRGH2DBTiUILybQFqWBTm KAU0TNAffNKyG5e0WqRfpJVd F2A9XmDkaTQuM8B9OtXleDTf W8M9FvYxeQRvPVFrfQAuCd5p bTGloGYlol4nte25KYA0y5Vo jIukIAK6BFR3JpWcMg8cfVXr NTVdZK5qLwIaxZJdRPSvqr43 fExlZVojkhBzjY9hIuQdYCLr pUNzQSQdIE3qnFYiKXXfiZ7t cmxjXHBnYnJkcmhlYWRccGdi efGrLh6zcIoyFTW4RBteZ0xl vV4zUsC5DXyoK1tlyN6fAPc6 NGgkmZJ6VWFwsK0eDU1lsbuc s1rkQtIiPQ4vfumqw7euJuHh TJ6fbgh7f9ogAxApXL1wbsdd m7xrMgVfRWxhJPDiefsrYMEj z5XilxekQXOax4SaJ4LzoDgt C78yeTdoR85xYBVaoKfxgZ0n dOmezM4lPpMiGaXmRWyqcXwk bGFpblxmMVxmczIwXGxhbmcx AIIwPKenO1lzSzGpIZOguCrl MVgby4BaYEVvJUVcRnZpKO9z M4ETYPAGNYlvIU9CI4IXE7PJ DsKPKXNMK8ZOGJKHM6KCOWTW IFxwYXIgLSBBTlRSQUwgTVVD I4AOADcQCMaaV2oNC14ZNdTG TkFDVElWRSBHQVNUUklUSVMg CV2BKIDKD0QALSwNQBMAFQwB QUwgTUVUQVBMQVNJQSwgXHBh ciAgIENPTVBMRVRFIFRZUEVc cKJcHZ6fN4rQErKNMaFNDFGV F5GcC0jBQWBJDnYINXvWHZTH R0FRNSGGFHTWZ8cVP8rBCXLA LERSFLDWK94HLFKwasNlUQ2B S4YUDJPAKVRFXlNYOHuNC45A RMGRVQVgKTcTK1UFMEBesqSt BJ9AL0QDQOWDXPREIlOIPQRS SOBAPYUrP4IoZ7PVI9hMD42M SUHmpnvpZYJqMq8nL4BMKXXV KZXHPAzTS8KSPMSGML4NCLdN RrwnRO5DZ7FEF5UMLvZMJAJU J9QSOBCAN1KWKXARLUTjatFs YMHHYNZUG6VQLVAHHbKLPC2P N23MSUDZRAOAMGGPPKoCVLLF ZQZAHJXNI2bkLTVgPQNAGQuL LXuGDDJJQ0OcW7LIF6lDGCdg RUQgQkFSUkVUVCBNRVRBUExB B2wQRFSkqebtHNQoiLHnbOcz odQwQYign5ChILywPPAwQJ1x cVeqIRGcFJ4iLZQkV9zkpZ9d wfk0ElHkMKKfTfK5ESPyyfV3 Ewl2FUNcKYcxw1mlj6FxGSFs EWx4vGntGaEfENUhi8iyyuNa MdClHEXgSFTwVHStvDCeQ039 p0hnt2syyjEvmDH0FUYiVIF2 IWkuruUpmuC8XVhliHIoUwK1 IDtccmVkMFxncmVlbjBcYmx1 LXSfE212QGL6xQghu6fgTYW5 BUAlZILnJaNeOx6toNReI101 MZDxWMTLBCLkfXb6DFEjxrZx agZuwYFHa034U568r2lkXOWp kiPalBvBevnvk4soA717YARw cGVydzEyMjQwXHBhcGVyaDE1 UNSvYS5gkxrlRRdpSQgaDCLn ngI4RIHokBCuY8QiWTEeVK3j vfmrXHP0ANwoFUYeAHZ9KbCp COAbr3Xagay0EfIebn2ymk10 GAM1q4RopJupXRE8UFZ7BlPa Me5pmWNvCHEaNQ2zFvRemNZm GOVglf82zDtdWEvkHMV0GRSi wmGmq9Epb9uzMiGxhrIgV3yp Y6ZzIYIdITXmKEFxObXxyhLr d6Mgc9EgtJKunSb1f7njISIw FTLifMeow8wqMWD3CEWdsLKb P5vqcD0yDKEmMF6ejglef5rm UYrfDCdoJVWexJX5dkL8PUFt uNSlX7TfuS4dEEQvDZrtRNXu qih1FuUkTr6ehQTbyPsmRUoj YmtwYWdlXHBnbmNvbnRccGdu ZGVjXHBsYWluXHBsYWluXGYw XGZzMjRccWxcbGFuZzEwMzNc aGljaFxmMVxkYmNoXGYxXGxv D6ksExJtJlMlPjt2ISEtdVUi ATDaAet0QZJckGJqVJEUbXjc dZ7bWHYijEluzF1kfRA5HHXr pjAfqBRPmL7mXMXUdE4uSpI7 XkXdGiO2TSPiHUsgrMBnuC5= COMMENT (test code = n7coaSXlBFAwmBPkHlOiLOFb 3359) LSNiw0xoMKHirCRoOtExLgZw FnKmFituhAYvQXReWmNxs4nj x644qHHwr9qbLEWeScN4eDUy RZVyzLMbA650v1lbe8tfyoAm iEI8MSQuVYW2EKgadlXlqtN8 VCbqcXJxFhY0MOmeybOhSHsc ksMxzaExUme8LGHxB860FTA7 iQjnc8qtOUY0XMPvGAUvAvKw Vx3qvLExS799ACTeANMJEZBi sYo4DTRrjnZjapVxbAHOh396 R734o7fpHOSpwaPmrJgHhyip v8clI799VPHvdRXjarUtZeVv SWIsgCQttLX2BNWqDF8pjltl PjNbYG6iyjcwTkInRC1uzgh6 PpAbGV1hewhyLaYhTDzwQQBp ejvpYTXsi3PyrxcnHA8qX7Gp c0C4mE1tgRYkLZCccBIiCzHk PELgkx1epNYnABtag6IuABZ6 axJ4dKVutBDoPIHgOB61Weah v8MmQhznWXI8ECCdixNhd6Ab v0dmUkIjvuFsS6ocL1XyYAJk MWAsRQRjVzQbanRvo1Ggp9Ln sDFgtAx3u2xnAAZaXVZunQwl y7ifUOA8EFJjU3H0kHJsj1ot BZdhIBGosUA7iushZEsjKUXh xuZ5klsfOJwvVSZqfOI6nthg IGtpUCApAnG0zarcJRkiMQKe AYG0OFktw438IXO9SXqoGsof YWdlXHBnbmNvbnRccGduZGVj XHBsYWluXHBsYWluXGYwXGZz YvIeiLxjxWhdqC5oMuXxNuEs OOpeSL0zJIShX6fixVApTUWu KMHkI8ssHmLleG1tdEglBGpo whDhLF9fbKJjhI== CPT Code(s) (test x8oqcRKpPPRryMDmWkTcFDMz code = 3357) KSEmh4vsZTXpqVKpHhBhVpRu WgUpYhrhbDYcBIIeCuAoz1tq i123lPVpa4zoWRCoRoF6cXJm PPKzjASeS870j3qhi0hhiyTj wNW3ZVUiDBG6UIenhlVsloX9 LMqtqEEeElS9JOwfniIgCLhg lwRwjfRbXcf2HHPaE274FUQ8 zAtcu7onQOO5HKKoOQKgQsYg Jn9fbNXjR839MDQuFRCTOFRz jUj3DIPkykUjiaWziHFTh483 U337g7bkTMWsfgPvqIpQjxrd m8jjU916TPDnrKFvswSpJsVk PNQtdDUaeDG4OOKlPU4hiuip UiJyPK6xnqhvRhDkAA4ldcf8 AdHkXN5ularcTwUgQYhpQQPs hjhrHRBcx0SgwrbeCN1sN1Rb b2D1zL1cuIOiRHFweQBmZmIv DSMrzh7zaDDhWWhvf5OtUUL3 ieI3jSYnmBKiMKUeAX17Rsdr u1OlRkwaSKU7LMPxnoMzf1Jb n6zbGtVgfsLoF9kpY5XuRHZu ZBDgKDNdPkKyypRgm8Lgm0Wd iLZobIm8l0jiKEJuHZPuiNrv y1nsCNR1MUHhH5A6dZFbr7kv UGkoSOZlaOF6fhtuUDltLEHt gsJ2tzfzYKeyTPNouDY3cqcs WPwnDFRiPsA9pcesCDilWSOj WLX1KWeqh746GGJ0OZauGdzd YWdlXHBnbmNvbnRccGduZGVj XHBsYWluXHBsYWluXGYwXGZz EqYseFmecKtfhX9sMwAbBqVz DJkxHO7kSJUeO1kamDRcDLZs ICZtH0quHiJejE9feBhxZThp blJxJXo3TaE2YMjsDTG5TDDt MlxwYXJ9 CLINICAL HISTORY n2eueLDyZGMewIVsHiKuHUMq (test code = 3356) VVCrx6gdCGQgzJRgEgLwCfWi WlLyQmknrQYnVZHfRbUas8wc i516xCCtd9waAIJyTaL5dHGy KZMquODjZ788v9xrw1vjmpBd hNJ7RYFiTPM4FQlkxrCotaM2 TBntqHUlSsO1UFyxtnVrBRir sdAaozHrLkg5DFTsW683UHD3 yAkuq2zrRDG9LEUoXXPnNlUi Ti2oePOfD177MTGdMVPLGYWa qCh4EZOrxgVwmqIsxYCHv802 J093o2ewICLxuyEzfLyKvjms f8sdE159LJMsjAEjinPiOdYj CIGpsMLhhLD2CQZjUZ7jqyoc FgSyIF3rlyfhSyCwBQ2xvyj5 WnUrNV7rgdpcDkDyMVegBGIl xjmvBRFcy2ZwakaqNO7dY8Eo m5C0kT6djYQvVIKjgAUzUgPy FMPgso5ckZYvQHbnv6KjEKH6 daW5rQHhpFPnODLwTA22Jgpd o0XkWeabHLT3KVKoxrPls5Ot t5cfVqBxxuCzV9uoG0ZnKWJp FTXgVBNwTtJsidWdh3Uof7Ik yXDfqXj3k8iqMCUtDMVyvPnf h5ogSDQ7SAQcV7C9fSAfk6jg IJbcOEGzoIB7fzseUHqfLUYl geY1ecxzAQbcETIucLX8bizf LPoxVVMfDnU4yqjxYGhsDFQx AVU9OJdvy843BOA4HPtoKwaz YWdlXHBnbmNvbnRccGduZGVj XHBsYWluXHBsYWluXGYwXGZz RpJygVvcnXiggZ2xFlWbQzYk DDlzFY1bNUQlO7tfxDInPJTm RZDwX0smRpNezM5ucReaRMun qiNgWRJnUA4dCNMmvUNooX== SPECIMEN SOURCE (test n1qxbYUwNBDoeLVdOdGlPMIf code = 3377) HCRrp3xbQHWqkUAmHkVbJcQg TcDqNwurmGQoTMHtTyAzd4az i960jBHui2szDWGuBzL4rTOj GJTghOAnB874w7rpr6pdygUc iUC0DQWdAKE2XMncwyMyftS1 NDbvrCIpQsS7TDeomfFtDQxv cfBdhnCgIwb8MCTaF678PZE4 uKmbx4brRRI7YDFgHGKqYjSh Ag1reQSoC101VARsOETTRTRu gPk0RUUzcbVwafCwqHWWn049 Q788e5skRUXyuhTpcAmOcztk n7akW280MTRviGAdaoYtOsUh RSSfgIJdkEI8XGAeFH6wjsye HeCjRJ5xcsikMpNeED7nmwn4 IgFiAI1pimvsBtLcFKreUFSy riznJMLuc3MowqkeRN5zQ4Ob z6I5gG6mwVBlVHDwkPOiWzGs OBGtbv2wmOHvZJbsf0YdPCS6 qmV1yOKrvNPrMFKdSY93Ybkk u8AxCpfdXBH5YTIwmwHfi6Vg i3vtZkLukfHiV4nbS5CiFRHk CECcLGGxUjDbzdXgn2Ryx7Wd vUUxyLh1o9jhRYTjUJUbjHkb v0izBOL6GXTsR2X1wTQgs2ro PZxgUFBaeBF0hbdkUZkkMAGf ocW6grfyTNogSWIcsWI7wzau JXozAGFhXuU7yygvZGdwQTAj OIV4IBmzu005HQH5YJjuKnui YWdlXHBnbmNvbnRccGduZGVj XHBsYWluXHBsYWluXGYwXGZz BuVdzUzonZpekI5iZqWuIwDo MWnjKF7pGBOvU1fyfLCjAFDp EXZjQ2fqKfDfdY6nbQnzLKai czIwIEEuIFJhbmRvbSBnYXN0 uremAGTmx4HhqCriliPgDVAd nHNoWI4mFWnpe8TpJFUbwaEK UhWVXK1gd43qB7OhwyLvU8St x47pKxyraGE5IXJgwObaTJ02 wGYNXQTgRZU1V9QlMMMkhw9= GROSS DESCRIPTION g1ylbSHrDPMbgVXxQxGqRIIt (test code = 3366) WDNsp0qrMHQuoYTuQzDxEvUr FjLyDdkmmVVkLYOhHoHbw8ry a521dXTtk2nxPJZdLtL6pUVo MPJjlYSvE418JCRoYKjuj0kq x9PzUTOnnEVrl4J6YIIWumjh xHz9wSjwC35vf2O6DwvaT7zp ZAEmXHEeN5QiWF3cGSGoFeo1 TCT4JYS9YDAgTLRjC8YfUR1c MOAgdQQqAZh3l8iobWbpBFGf SAP1y1dgFLyyatQkDM0sqo4e rYt3f1fbfzSeBYZlUSGnlGIB TZQmM6SsaCudLs8bbTt4eXiu SaxfWXX7Abs8VU1guc07qjy7 nNdcEALzarvmSkX4PRsoSUVs khckDNr8YCimESHgvOggHNln YXJncjcyMFxtYXJndDcyMFxt ZXZvWecdPPlkASJjHID0LAed e942MKT6MYbph0gml9ahiYIs Kwu3PDLqIaNjEmgeXGqwj9Jg g5iaRYZhac3zMBU6xSUqqYok r5D3tIOvRTHwmDVyacNnEVIr BgK1SKkxUT6bml12BRAzSOL4 si0xjFHzjTofnkPjmYBmYLlf T3BiQVYdg063WOAhX6QfLDXz p5Q1aqXoYmUbFWDnjNW3akG1 YLExMAt0hEGidtM7khNzmSAt F2okmL91TxIwoJGmU0KbqY15 YjSykQBvZ6JwkM52TzEyhWRs U5BbfK71BoVmhWRwDTYfoDLo Nf2fdSKsbQXib4MnxCFuGLcw Q03po876JSLrviAwT1nkdLZu tmqnqOWdngovPOfqdnZ5MAFv XHBsYWluXGYwXGZzMjBcbGFu ZzEwMzNcaGljaFxmMFxkYmNo UUQgUEghM4ztXtErZoOhMFPG IjUQTNQbyPVhJBCekaNbi1Kr YWxpbiBsYWJlbGVkIHdpdGgg rUbdVXMibXwouyDpwzBbMW8b IDYnUCScW2SdGETxS21sCXEk aY6lKXYuMF7pYODcEET6jpdz HJPcm1AjzGOhIVPqAZZ4pqQs hFTbCOGsz4FruDFjNHaerUUx AF20V09bXN3kn9EdrcVyZAXu k7A2LDR8bNE2AJ2bCNO3teOr LB51NErqMX3hCSwsPS3rBBHa OVwkRKPiO5EvT8W3GA7nJUxc MMDeCLQnrGKfKMcbCOD1Vy2v xSFxPZZxgjZ8e2YzHCFmbDiu n5vnHbKdzVc6hbT9pB0dIAbb ZQSdb2LolUCiCLOyCxreXERl cGFyXHBsYWluXGYxXGZzMjBc bGFuZzEwMzNcaGljaFxmMVxk NvErFDRjHJicN4siJnDsQgJy MCBCLiBSZWNlaXZlZCBpbiBm e5MjPMnmqbKvUVZpfXIxYZct dGggdGhlIHBhdGllbnQncyBu UY9sVVUvANHfT1HaNBJuM83r ERIptI0sPEBvIV7zDTTBCOTj cN8goBqpswDkqC5ra9pvLZJo TQX0h97gnZezG3QoRP8kZEFr hi81cAi8LTHwuAJdc1JaC784 YTDwCBA9zHJvqBAgsLiqiMJo LAKxgUDqAYBoVCU7ASTxFrJ7 LJUnRuPdpWRfakQlD7tkUVef dRNjKFRgTSIulTIlfL4jihMl vaTnvPSvsYI6DUWmmD6grX46 chBil1ila3jqjtgeJupqoXZr vMzoulRaiaExLLOcUOY5ALGY UW4xxXjfqT7aIuMgRvPnVEmf RN9pJIRvJ8bynTByQHInOSGc L8ctWtMroA6geUaqDNfnqcPa SGORWRGjUUjvaCwgqZ5zZnKe IlOeXFkaTW2hWWVmQ6jzzKQu ZYXeFADbF6tnCkNyuY7vvMii MVxmczIwXHBhcn0= MICROSCOPIC f7phxNZlJBIkcXQlEbQsTYGy DESCRIPTION (test YPMba9vfIJHtuDXeYfPsMjSl code = 3371) DsPrGncfeBHcGXSiYcZni9lh m591tSVmv4znLSXdWhL4cHAz DOOuxZYbV971IODeCWefw9gt c3QnTSTzjBScd1U7YIRVffku nMk0uWunY80ib3H3FxuuH0gz CGFyMYOcK8AnYV0lWBXvNtj6 XVR7UWK4KXZsDYBbK2JcHF1p HDKlnOArYMe6b1cvhVpkYFLf UWB7z8txJLvlgyUzOS6wql3b bZz6i6xxeiRzCFAwJXRmdYXB XRIhD6EqfIlgRu0djNy4qNtn DtcoIAH5Upb0XP9wki60efv7 kUmhYXFpqtgbYbD1XZkcCZYe qzabYJa9WTzwRDCmyHioGPdj YXJncjcyMFxtYXJndDcyMFxt YRPvTeogDOedISJmKXH3GJrr y552TPS2RCzim9jvc3juwCCq Xlu6YXUjMwBaTysgEKqee7Pd c6aoBLFxkp6yPSK6zJAjaUrz o0O6qWVjAYTukEQdmkLvGCMj CbD6DXfvAZ2pxi74RTGxHWY7 ak5yhGPdgLwwiaRvaJXhSKrs N7YeFXYjq788IYXkL2LwGOXr w9G0irHlZpLkBTLwoNM0noW6 DXZqREl9cPGyzdO3olWzdHMi G9hzqB49SmOtkDJlX3MmqO68 IcTawRMvM4UvoX53AgCjgKVh I8FkiM75MnTbuXGwOMScoGKq Zs0suQNykZAfl5GxlKRzKTqm Y00tn896IEEgwuSoR1czzSZu xfshsGBmtgkeSEiatbV6SLQz XHBsYWluXGYxXGZzMjBcbGFu ZzEwMzNcaGljaFxmMVxkYmNo SMKnLBzhW4swWgViYvYyBCCH UsFKOQX3tF4gCUKgc7xeDKmu m5BokCMeMV38ivArUNTaTVWx pDkkaFdyGA78W31lUB8bZUym NTLueKRyrBDvfPMrs0Sqd2gd c2ZsdIifICFdwAMkedwzZLnu NUH1ySNtWCzji9TmgYUnioH3 oGVcBYsfH55hvFsbmVQstC65 FWL8eL2euKDzFTNvgKarz4fl QrCXquApD2FmsmOzaB8atGEq dHZ1tN8zXAqkEZIgCKVzjmBc BQPqXDXxiXskdNxdLF02K32b CNVrbL13tnTneaOevZuscKPp G3ScuKZgowXeLK2vARGgf26i DAmfzbOpfT9on6FyeI1zNs3d EUchqEckj4NdY7SrhbZufQmv cmkgaXMgbmVnYXRpdmUuIFRo CAPmVLfyLG7uRMA7r8JoFVQm KSLpzePwPONspD1cpAXjSDCa nrmvJWXhCn5hM0TqqJxkxkBh qN15ctWiXHL8yn7be22yuCGp ZCYzGHi7ndK4yG4dIIcxhKLt c4RdDPUeUFWvyCLvkS84zmLw MP4zxErvA3JgaInpcFZrs2Ao PvOQmJBvk2X6WD9dyVLiHYVc e5McRBxmBAsqOCBmnAAwgpHi cHIoDjUWAOZjfH9ahXkuxzUk BK40M54jWJPhqR15xgUbjoVn usAccOq1oESqMSAzZM2uHPCd QMQznT3uH2C0ZOLlshNgE5Cm VQNzsVMadOqaYZRiRJ8aXGDu LYTww0y6oS8ztdHiyGEqn4Hf p3rgi8UtX5mex60lNzLyazSx PN3bPDEsm60rz7z5vSZqOMEh KG1jwGLqj1ViuTnjDyNVzwNl f2LzWLMhP5UrrXOjMSJypRjf s4onZKsqOAGsIR9cOFArjr4= SPECIAL STUDIES (test y0fgnFWeBOZvr9xsSIVxrITl code = 3376) KrishwMzNcZnRuYmpcdWMxIHtc ytLzJFdju6LrT2TpDwZjZVpc bnNpXGRlZmxhbmcxMDMzXGZ0 gdSgTGQcQBmlDHAqPOwyPz7f yINalQbyYfZiQBYbj3jpglLQ ebieiOq1v4fmAATmWgZ6jBZe FZrtH7eyspOreVXzU1ItfDLb kKa1r3vlSgNdVpM1yKLpEGdz F0adyhIsdGPpUMJiKCd9aA36 XYZhgA2mxOPgPQgawzEcVmZ4 PMmbNSQfTfD3BXAfqDGzHHNc S9auQVVvFHtpTJHoTYysuILe OIZ1mZoax3P1mIUvaULyiEas LmUwGkJhDxEDl3GaJIx6lXve Q7VfDNIeQzH6oLXzJOJvFNcm BRTdFVFqxwB1cBgkhcBso68z eHQyXGYwXGZzMjBcbGkwXHJp EXWSv9AtqGboEBH9hMt3cJtv BcykHVE2Kzs6NS5kmz75ijc5 cCruWALqdsphDmU0MFprFIXk vojjCDk8GUebZLEqhEA0JUZf bGXuC0VoBDFiZS4qxzk7KTH5 IGejMJQsNkD7VDUfoFDuGMXh vPitZAmdr655NMK5BtVbCY8a C4Tyl8V1bG2rhJOjVNZwkOZu NiAgPDUniy4bqDMqSKfvg6Km FGX3ipM7hGDctTHsJUWlGK42 Svakm5KzLhnix3PkZ68bxNV9 TLwul6eeGD8bXqK2bgGoZPkm w3dpcH1uOgJ7OAvgST5gFP7f XOTdyV8omqmuNZJzQtSkcpdf IPBbsWnyptHaNk2klGulMAV3 UUtqQ5oskQ4jQyO9UQfxZ5ab qE0oNIs5BSizgXE3TQMlnX4x GG2uuqxrv4azBCkmUCrlAOFm ssK5biJ7PGYidSTaM5MzeR6s JZBjXC3ycnext2hcFVF0FNrp TYYlIEF6MqWoIMFpd9Hcnjk0 UaOlu0VpvVZsHPpvC98ay062 GHHfdzYkK0edpIOvektlkJXg wuteJLukjbF0LBUeHLOmCJmq XGYxXGZzMjJcbGFuZzEwMzNc aGljaFxmMVxkYmNoXGYxXGxv M5mvWcUsI2HxWFQxIiMnMFkd TKpqzONfzTMtzEW6mG4hJX4c OZUukJUlT7DwWDOkbfMweYRk VVT2iYAesQGmXO1uPYsimPPt m9lse2PhY3hfqTfioAA0BQ9t LSHpQVYnPBeun0BhsY4qNmsz bGFpblxmMVxmczIyXGxhbmcx QJAnBUawS3kvUlSrBBLwpFli IFdmr3ZwQJNbIQXqVauhsaNk UNx5srUoSMXtfhfuLFKuaLva yF2bUnLyHqOrIvsaOV8qSHEr R0krfYKfAGByKEPgT4goSuRl mS6fvHscUDykTwSeKeUwYiNS h626id9wDZWfwEBfgsGXzUGv rK4yZCtdDPyqTMaviYUfDLle e2hbRWLey1l2kMXtCGAkzlJh z2ksLAeyugXbTBGvpDKoxDEl IRZsz73iDWgtbTdhqKyuSPLn l0MwpSgjd6NaOlKgUFpmz2Ja K76hmYYdxILesFhkZVGjyeQy JHCsg21we2toOGJlWdZ1zMQh cEV1hFUrkSVum8WujDugLYQd k2vsPVJraz3xlyumtQJoo8Vw hP8vjdkzTYjotZHfevLjFGVv r4o2fLJbNJEeIYVrZGdewWb9 MNZxb463mk0gpiZ3wRNaNDP3 YWlsYWJsZSBhcmUgZXZhbHVh dGVkXHBsYWluXGYxXGZzMjJc bGFuZzEwMzNcaGljaFxmMVxk WkBfWSDwZYdsC2bdXzAbL2Kn MRClMlDxuXNdI7qhbNFpRYGi YWluXGYxXGZzMjJcbGFuZzEw MzNcaGljaFxmMVxkYmNoXGYx KCguI9pgFoIjD2PqIUKgVvTs IFxwbGFpblxmMVxmczIyXGxh duxiWIHdWVfbQ0koJgTqRYIm aEmfDVbld1KmJETkGTKnXfhu zcUpWWp3knEyNJKwfciipJYk blxmMVxmczIyXGxhbmcxMDMz OEaoI0jkHlFxOFMvvOkoEKyr y5LbVNIkUWAjAithfgDiGSie zZVwj3btk3DiX5volGqclOL7 RLCcB1fssSJztPQ5OJV5wO5n WEmentAvXDJlj0TyITDjFQIs IdL8hU5kOEG8MmGFwSwxLQPx YWluXGYxXGZzMjJcbGFuZzEw MzNcaGljaFxmMVxkYmNoXGYx CAtyB8zoAxJwP9TwPQUkCdOt yUprIQrgHHq4XskgwSHtdzqo MVxmczIyXGxhbmcxMDMzXGhp G4zySuQjYKQhsGtjJOqww9Ir XGYxXGNmMlxmczIyIHMgTWVk hCSsvHPNLO12KULkSCOtfWxs wX2gsLILAYVugoQ0u3J5KIca VWHjEFb5EUharkLxKHBenC0x DURwYZ7gERr2ebGqOBOme6Bl YB5vKRKuqPZfPNA7XHWbm8Tm K6Rut5TkIBMkESNybo5gukTz DtHXlZXvKEPaxg75BIHgWT4k I5cfWROhIMMcvlHbbCKwd0Xv MOIiuUI4nXKyLT4DXfTPo33b IGFuZCBEcnVnIEFkbWluaXN0 zuK8hA4dKiWZnGRrBsRPYSch tcXmEGGfcs7wuySrASJjXBOo t3FcnPLukUUjrsOxP1Ady6Ri BXPrtc87GCehaTTrns78LJ4b S2Dra6ZtxC2zIGdtWXKjk9Rp hYIfjFTgEHSex2QxG8makkbv HCevqDCjwZ2tAYKlCNb5BPWy w1JuOTQoj5TmWlWiaqJrKPFr WYTnLNTebY46XCK1fLaxvQnk uuOvXA9fQZKqjmZgCMZoEBSt nF5kWYovvaYoTVWvrmX5r7Z5 VZwpUVTbljAjPgitHZL2nbPy ylU4zIEsX6rbbnbsJWjyBDMo r8BagK9jcWEDnGObw2HenODz qBUYmLFfJY7ydcGaJH4yYRQ6 ODggKENMSUEtODgpIGFzIHF1 OLfwKexgHLY8sgXtRGGao4Wh QRzrK3lcX66caJggvHc3qEAd rRibuPMyuJHvPYYpckS2g4R4 COMfg0FtqpguSZBuZXopZEIl XGZzMjJcbGFuZzEwMzNcaGlj uPxeJluxDpZrJXExKHcyX0iz CeVjCgTtOwrjWSQ1eH== Gross assessment was [facility] performed at ([facility], code = 2777) Department of Pathology, [address] [place] [id number], Technical component [facility] was performed at [facility], (test code = 2778) Department of Pathology, [address] [place] [address], Professional [facility] component was [facility], performed at (test Department of Pathology, code = 2779) [address] [place] [address], [facility] [id number] 13:01:00Surgical Pathology Report Case: [id number] Authorizing Provider: Myrna Monsalve MD Collected: 05/27/2020 08:20 AM Ordering Location: [address] Received: 05/27/2020 02:50 PM SERVICE Pathologist: [...] ISLAS METAPLASIA Signing Pathologist Direct Phone Line: [phone] signed by Rosa Cisneros MD on 05/28/2020 at 1:01 PM.89392 x2, [id number] A. Random gastric biopsy, rule out H. [...] evaluated Immunohistochemistry technical testing was performed at [facility], [...] as qualified to perform highcomplexity clinical laboratory testing.[facility], Department of Pathology, [address] [place] [address], [facility] of[facility], [address] [place] [address], [facility], [address] [place] [address], GBE W/PLT COUNT & AUTO [id number] 06:41:00 Test Item Value Reference Range Interpretation [...] CONCENTRATION Decreased (CELLAVISION)(BEAKER) (test code = 3438) House Calls Nurse ID - Kaylee Martines comments: Slide comments:COMPREHENSIVE METABOLIC [id number] 05:00:00 Test Item Value Reference Range Interpretation [...] S NOT APPLICABLE FOR DIALYSIS PATIEN TS. House Calls Nurse ID - BONILLA ASIC METABOLIC [id number] 05:00:00 Test Item Value Reference Range Interpretation [...] S NOT APPLICABLE FOR DIALYSIS PATIEN TS. [id number] 04:45:00 Test Item Value Reference Range Interpretation Comments MAGNESIUM (BEAKER) (test code = 1.9 mg/dL 1.6-2.6 627) House Calls Nurse ID - BONILLA EPATIC FUNCTION [id number] 04:45:00 Test Item Value Reference Range Interpretation [...] (test code = 9 U/L 6-55 347) House Calls Nurse EVELYNE CRYSTAL [id number] 04:33:00 Test Item Value Reference Range Interpretation Comments D-Dimer, Quant (test code 3.35 <0.50 MG/L FEU H = 12051-3) FANTA (test code = FANTA) Intended Use: [...] range. Lab Interpretation (test Abnormal code = 82058-2) [facility] HospitalD-[id number] 04:33:00 Test Item Value Reference Range Interpretation [...] exclusion of thrombosis is within 95-100% range. PT/[id number] 04:31:00 Test Item Value Reference Range Interpretation [...] detected HCV RNA not (test code = 61481-1) detected FANTA (test code = FANTA) This test uses a Real-Time Polymerase Chain Reaction (RT-PCR) methodology and was performed using BAIRON Ampliprep/BAIRON TaqMan HCV test kit version 2.0 ([employer]). Reportable range for this assay is 15 - 100,000,000 IU per mL (1.18 - 8.00 Log IU/mL). Lab Interpretation Normal (test code = 72870-5) [facility], [id number] 22:57:00 Test Item Value Reference Range Interpretation Comments HCV RESULT COMPONENT HCV RNA not detected HCV RNA not detected (BEAKER) (test code = 2699) This test uses a Real-Time Polymerase Chain Reaction (RT-PCR) methodology and was performed using BAIRON Ampliprep/BAIRON TaqMan HCV test kit version 2.0 ([employer]).Reportable range for this assay is 15 - 100,000,000 IU per mL (1.18 - 8.00 Log IU/mL).Manual Yynaisqwnpmi4285-86-15 12:07:00 Test Item Value Reference Range Interpretation [...] few Lab Interpretation (test code = Abnormal 49212-2) [facility] W/PLT COUNT & AUTO [id number] 12:07:00 Test Item Value Reference Range Interpretation [...] code = 1+ few 477) BASIC METABOLIC [id number] 04:27:00 Test Item Value Reference Range Interpretation [...] S NOT APPLICABLE FOR DIALYSIS PATIEN TS. House Calls Nurse ID - BONILLA [id number] 04:25:00 Test Item Value Reference Range Interpretation Comments MAGNESIUM (BEAKER) (test code = 2.0 mg/dL 1.6-2.6 627) House Calls Nurse ID - BONILLA MHEPATIC FUNCTION [id number] 04:25:00 Test Item Value Reference Range Interpretation [...] (test code = 7 U/L 6-55 347) House Calls Nurse ID - BONILLA MPT/[id number] 04:09:00 Test Item Value Reference Range Interpretation [...] Maddie Leon code = 2849) Bebeto Dsouza [facility] - PATHOLOGIST REVIEW 2020-05-26 14:31:00 Test Item Value Reference Range Interpretation Comments PERIPHERAL SMR Macrocytic anemia, REVIEW (BEAKER) 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 WBCs with mild left shift, including occasional myeloid precursors, no blasts seen. Few hypersegmented neutrophils. Thrombocytopenia with unremarkable morphology. ZANU-[id number]-076 Maddie Leon 2 (BEAKER) (test Bebeto Dsouza code = 2849) [id number] 13:50:00 Test Item Value Reference Range Interpretation [...] within 95-100% range.CBC W/PLT COUNT & AUTO [id number] 07:48:00 Test Item Value Reference Range Interpretation [...] CONCENTRATION Decreased (CELLAVISION)(BEAKER) (test code = 3438) House Calls Nurse ID - Chris Mtz comments: Slide comments:COMPREHENSIVE METABOLIC [id number] 05:43:00 Test Item Value Reference Range Interpretation [...] S NOT APPLICABLE FOR DIALYSIS PATIEN TS. House Calls Nurse ID - EDASIBASIC METABOLIC [id number] 05:38:00 Test Item Value Reference Range Interpretation [...] S NOT APPLICABLE FOR DIALYSIS PATIEN TS. [id number] 05:34:00 Test Item Value Reference Range Interpretation Comments PHOSPHORUS (BEAKER) (test code = 7.6 mg/dL 2.3-4.7 H 604) House Calls Nurse ID - [id number] 05:34:00 Test Item Value Reference Range Interpretation Comments MAGNESIUM (BEAKER) (test code = 2.0 mg/dL 1.6-2.6 627) House Calls Nurse ID - EDASIHEPATIC FUNCTION [id number] 05:34:00 Test Item Value Reference Range Interpretation [...] (test code = 6 U/L 6-55 347) House Calls Nurse ID - EDASIPT/ZHUK3269-60-12 04:50:00 Test Item Value Reference Range Interpretation [...] is2.5-3.5 for patients wiht mechanical heart valves.CALCIUM, [id number] 03:59:00 Test Item Value Reference Range Interpretation Comments CALCIUM IONIZED (BEAKER) (test 1.08 mmol/L 1.12-1.27 L code = 698) PH, BLOOD (BEAKER) (test code = 7.49 1810) TSH/Free T4 If Witkhvfbq4977-15-21 20:19:00 Test Item Value Reference Range Interpretation Comments TSH (test code = 3.581 0.350- 4.940 uIU/mL 08141-3) FANTA (test code = FANTA) House Calls Nurse ID - ABBY F Lab Interpretation (test Normal code = 18652-3) [facility] HospitalTSH/FREE T4 IF [id number] 20:19:00 Test Item Value Reference Range Interpretation Comments THYROID STIMULATING HORMONE 3.581 uIU/mL 0.350-4.940 (BEAKER) (test code = 772) House Calls Nurse ID - ABBY FHEMOGLOBIN AND [id number] 19:42:00 Test Item Value Reference Range Interpretation Comments HEMOGLOBIN (BEAKER) (test code = 9.0 GM/DL 13.7-17.5 L 410) HEMATOCRIT (BEAKER) (test code = 26.7 % 40.1-51.0 L 411) House Calls Nurse ID - 6000CBC W/PLT COUNT & AUTO [id number] 14:10:00 Test Item Value Reference Range Interpretation [...] H PERCENT (BEAKER) (test code = 2801) [id number] 12:23:00 Test Item Value Reference Range Interpretation [...] Range Interpretation Comments LDH (test code = 7822-0) 341 U/L 125-220 H FANTA (test code = FANTA) House Calls Nurse ID Joseph NORRIS F Lab Interpretation (test Abnormal code = 13270-2) [facility]LACTATE DEHYDROGENASE (LDH)2020-05-25 12:15:00 Test Item Value Reference Range Interpretation Comments LACTATE DEHYDROGENASE (BEAKER) (test 341 U/L 125-220 H code = 635) House Calls Nurse ID Joseph NORRIS FProthrombin time/[id number] 12:13:00 Test Item Value Reference Range Interpretation Comments Protime (test code = 14.6 11.9- 14.2 H 5902-2) seconds INR (test code = 1.17 <=5.90 6301-6) FNATA (test code = FANTA) Effective 01/16/2019: PT Reference Range ChangeNew: 11.9-14.2 Previous: 11.7-14.7 RECOMMENDED COUMADIN/WARFARIN INR THERAPY RANGESSTANDARD DOSE: 2.0-3.0 Includes: PROPHYLAXIS for venous thrombosis, systemic embolization; TREATMENT for venous thrombosis and/or pulmonary embolus.HIGH RISK: Target INR is 2.5-3.5 for patients wiht mechanical heart valves. Lab Interpretation Abnormal (test code = 65171-0) [facility] HospitalPROTHROMBIN TIME/[id number] 12:13:00 Test Item Value Reference Range Interpretation [...] for patients wiht mechanical heart valves.HEMOGLOBIN AND [id number] 12:01:00 Test Item Value Reference Range Interpretation Comments HEMOGLOBIN (BEAKER) (test code = 9.0 GM/DL 13.7-17.5 L 410) HEMATOCRIT (BEAKER) (test code = 27.0 % 40.1-51.0 L 411) House Calls Nurse ID - 6059Odpctmeofmu4948-42-87 11:50:00 Test Item Value Reference Range Interpretation Comments Haptoglobin (test code = 172 mg/dL 14258 4542-7) FANTA (test code = FANTA) House Calls Nurse ID - ABBY Crump Lab Interpretation (test Normal code = 47185-3) [facility] HospitalHAPTOGLOBIN2020-10-05 11:50:00 Test Item Value Reference Range Interpretation Comments HAPTOGLOBIN (BEAKER) (test code = 172 mg/dL 258 366) House Calls Nurse ID - ABBY F2D Echo W/Doppler(CW/PW/Color)2020-05-25 10:53:54 Ejection FractionSLEH ECHO HEARTLAB MKCKESSON CPACSInterface, External Ris In - 05/25/2020 10:54 AM CDTTransthoracic Echocardiography Report (TTE) Demographics Patient Name THIERRY PADILLA Date ofStudy 05/24/2020 KYLIE Gender Male Visit Number [id number] Race Unknown Room Number 7217 Number Date of 1965 Referring Physician Age55 year(s) 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 Lopes 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 Owen Valdivia Interpreting Renato Grewal Physician Procedure [...] CO: 5.41 l/min LVOT CI: 3.06 l/min/m^2[facility] Center[facility], TESTICULAR (SCROTUM)2020-05-25 08:58:00Reason for exam:->rule [...] Roya Verde MDRmari Verified Date/Time: 05/25/2020 08:58:57 [facility] 08[facility]16:00 Test Item Value Reference Range Interpretation Comments Ferritin (test code = 83986.32 ng/mL 5-275 H 2276-4) FANTA (test code = FANTA) House Calls Nurse ID - EDASI Lab Interpretation (test Abnormal code = 36056-3) [facility] HospitalFERRITIN2020-10-05 08:16:00 Test Item Value Reference Range Interpretation Comments FERRITIN (BEAKER) (test code = 06844.32 ng/mL 5.00-275.00 H 361) House Calls Nurse ID - EDASICBC W/PLT COUNT & AUTO [id number] 08:02:00 Test Item Value Reference Range Interpretation [...] CONCENTRATION Decreased (CELLAVISION)(BEAKER) (test code = 3438) House Calls Nurse ID - Jonna Pascual comments: Slide comments:RAD, CHEST, 1 VIEW, NON [id number] 04:42:00Reason for exam:->pulmonary edemaShould this be performed [...] 04:42:11 XR chest 1 view portable / [id number] 04:42:00 Interface, External Ris In - 05/25/2020 4:44 AM CDTFINAL REPORT RAD, CHEST, 1 VIEW, NON DEPT INDICATION: pulmonary edema COMPARISON: Prior day's exam FINDINGS: Portable frontal view of the chest. IMPRESSION: Support Lines: Stable. Lungs and pleura: Unchanged venous congestion and interstitial opacities. No consolidation or effusion. No pneumothorax.Heart and mediastinum: Stable contours.Additional findings: None. Signed: Sally Renae Verified Date/Time: 05/25/2020 04:42:11 [facility] HospitalIron, TIBC, % sat. (without ferritin)2020-05-25 04:31:00 Test Item Value Reference Range Interpretation Comments Iron (test code = 2498-4) 118.0 ug/dL 40-160 TIBC (test code = 2500-7) 170 ug/dL 250-450 L Iron % Saturation (test 69 % 20-55 H code = 2502-3) FANTA (test code = FANTA) House Calls Nurse ID - EDASI Lab Interpretation (test Abnormal code = 31992-4) [facility] HospitalIRON, TIBC, % SAT. (WITHOUT FERRITIN)2020-05-25 04:31:00 Test Item Value Reference Range Interpretation Comments IRON (BEAKER) (test code = 547) 118.0 ug/dL 40.0-160.0 TOTAL IRON BINDING CAPACITY 170 ug/dL 250-450 L (BEAKER) (test code = 769) IRON % SATURATION (2) (BEAKER) 69 % 20-55 H (test code = 2590) House Calls Nurse ID - EDASITroponin [id number] 04:23:00 Test Item Value Reference Range Interpretation Comments Troponin I (test code = 0.46 ng/mL 0-0.03 44571-7) FANTA (test code = FANTA) Troponin I [...] DB Lab Interpretation (test Abnormal code = 83730-6) [facility] HospitalTROPONIN [id number] 04:23:00 Test Item Value Reference Range Interpretation [...] failure, acidosis, acute neurological disease, and persistent tachyarrhythmia.House Calls Nurse ID - [id number] 04:20:00 Test Item Value Reference Range Interpretation Comments PHOSPHORUS (BEAKER) (test code = 10.5 mg/dL 2.3-4.7 HH 604) House Calls Nurse ID - DBCOMPREHENSIVE METABOLIC [id number] 04:19:00 Test Item Value Reference Range Interpretation [...] S NOT APPLICABLE FOR DIALYSIS PATIEN TS. House Calls Nurse ID - [id number] 04:11:00 Test Item Value Reference Range Interpretation Comments MAGNESIUM (BEAKER) (test code = 2.0 mg/dL 1.6-2.6 627) House Calls Nurse ID - DBHEPATIC FUNCTION [id number] 04:11:00 Test Item Value Reference Range Interpretation [...] (test code = 9 U/L 6-55 347) House Calls Nurse ID - DBPT/[id number] 04:11:00 Test Item Value Reference Range Interpretation [...] is2.5-3.5 for patients wiht mechanical heart valves.Reticulocyte uxmvi4573-12-79 04:06:00 Test Item Value Reference Range Interpretation Comments % Retic (test code = 1.5 % 0.5-1.8 37794-4) FANTA (test code = FANTA) House Calls Nurse ID - 6000 Lab Interpretation (test Normal code = 75516-3) [facility] HospitalRETICULOCYTE [id number] 04:06:00 Test Item Value Reference Range Interpretation Comments RETICULOCYTE COUNT PCT (BEAKER) (test 1.5 % 0.5-1.8 code = 575) House Calls Nurse ID - 6000Lactic acid, [id number] 04:05:00 Test Item Value Reference Range Interpretation Comments Lactate, Venous (test code = 0.42 mmol/L 0.5-2.2 L 2872) FANTA (test code = FANTA) House Calls Nurse ID - DB Lab Interpretation (test Abnormal code = 28797-7) [facility] HospitalLACTIC ACID, [id number] 04:05:00 Test Item Value Reference Range Interpretation Comments LACTATE BLOOD VENOUS (2) (BEAKER) 0.42 mmol/L 0.50-2.20 L (test code = 2872) House Calls Nurse ID - DBCALCIUM, [id number] 04:03:00 Test Item Value Reference Range Interpretation Comments CALCIUM IONIZED (BEAKER) (test 1.02 mmol/L 1.12-1.27 L code = 698) PH, BLOOD (BEAKER) (test code = 7.44 1810) Hepatitis B surface [id number] 21:41:00 Test Item Value Reference Range Interpretation Comments HBsAg Screen (test code Nonreactive Nonreactive = 5195-3) FANTA (test code = FANTA) Specimen is considered negative for HBsAg. Lab Interpretation (test Normal code = 80725-4) [facility] HospitalHEPATITIS B SURFACE [id number] 21:41:00 Test Item Value Reference Range Interpretation Comments HEPATITIS B SURFACE ANTIGEN (2) Nonreactive Nonreactive (BEAKER) (test code = 2585) Specimen is considered negative for HBsAg.HEMOGLOBIN AND [id number] 20:59:00 Test Item Value Reference Range Interpretation Comments HEMOGLOBIN (BEAKER) (test code = 6.9 GM/DL 13.7-17.5 L 410) HEMATOCRIT (BEAKER) (test code = 20.8 % 40.1-51.0 L 411) House Calls Nurse ID - 6000TROPONIN [id number] 18:22:00 Test Item Value Reference Range Interpretation [...] failure, acidosis, acute neurological disease, and persistent tachyarrhythmia.House Calls Nurse ID - CECILIAGB-type Natriuretic Factor (BNP)2020-05-24 18:01:00 Test Item Value Reference Range Interpretation Comments BNP (test code = 65277-3) 202 pg/mL 0-100 H FANTA (test code = FANTA) House Calls Nurse ID - CECILIAG Lab Interpretation (test Abnormal code = 10467-6) [facility] HospitalB-TYPE NATRIURETIC FACTOR (BNP)2020-05-24 18:01:00 Test Item Value Reference Range Interpretation Comments B-TYPE NATRIURETIC PEPTIDE (BEAKER) 202 pg/mL 0-100 H (test code = 700) House Calls Nurse EVELYNE LUAIV-1 Antigen with HIV-1/2 Ouqlmguh3096-29-26 13:43:00 Test Item Value Reference Range Interpretation Comments HIV-1 Antigen with HIV 1&2 Nonreactive Nonreactive Antibody (test code = 08036-0) Lab Interpretation (test code = Normal 29387-2) [facility] HospitalHIV-1 ANTIGEN WITH HIV-1/2 [id number] 13:43:00 Test Item Value Reference Range Interpretation Comments HIV-1 ANTIGEN WITH HIV 1\\T\\2 Nonreactive Nonreactive ANTIBODY (2) (BEAKER) (test code = 2586) TROPONIN [id number] 13:42:00 Test Item Value Reference Range Interpretation [...] failure, acidosis, acute neurological disease, and persistent tachyarrhythmia.House Calls Nurse ID - CHERYLASIC METABOLIC [id number] 13:37:00 Test Item Value Reference Range Interpretation [...] S NOT APPLICABLE FOR DIALYSIS PATIEN TS. House Calls Nurse ID - [id number] 13:10:00 Test Item Value Reference Range Interpretation Comments PHOSPHORUS (BEAKER) (test code = 6.3 mg/dL 2.3-4.7 H 604) House Calls Nurse ID - ROSIANGHEMOGLOBIN AND [id number] 12:38:00 Test Item Value Reference Range Interpretation Comments HEMOGLOBIN (BEAKER) (test code = 7.7 GM/DL 13.7-17.5 L 410) HEMATOCRIT (BEAKER) (test code = 22.7 % 40.1-51.0 L 411) House Calls Nurse ID - 6000Hemoglobin [id number] 09:17:00 Test Item Value Reference Range Interpretation Comments Hemoglobin A1C (test code = 4548-4) 5.8 % 4.3-6.1 Lab Interpretation (test code = Normal 60140-3) [facility] HospitalHEMOGLOBIN [id number] 09:17:00 Test Item Value Reference Range Interpretation Comments HEMOGLOBIN A1C (BEAKER) (test code = 5.8 % 4.3-6.1 368) TROPONIN [id number] 08:48:00 Test Item Value Reference Range Interpretation [...] failure, acidosis, acute neurological disease, and persistent tachyarrhythmia.House Calls Nurse ID - ROSIANGBASIC METABOLIC [id number] 08:33:00 Test Item Value Reference Range Interpretation [...] S NOT APPLICABLE FOR DIALYSIS PATIEN TS. House Calls Nurse ID - ROSIANGHEMOGLOBIN AND [id number] 08:12:00 Test Item Value Reference Range Interpretation Comments HEMOGLOBIN (BEAKER) (test code = 8.1 GM/DL 13.7-17.5 L 410) HEMATOCRIT (BEAKER) (test code = 23.5 % 40.1-51.0 L 411) House Calls Nurse ID - 6000Vitamin B12 and Jytvnl7447-66-64 05:56:00 Test Item Value Reference Range Interpretation Comments Vitamin B12 (test code = 237 pg/mL 774-050 5243-9) Folate (test code = 4.00 ng/mL >=7.00 L 2284-8) FANTA (test code = FANTA) House Calls Nurse ID - EDASI Lab Interpretation (test Abnormal code = 14269-7) [facility] HospitalVITAMIN B12 AND [id number] 05:56:00 Test Item Value Reference Range Interpretation Comments VITAMIN B12 (BEAKER) (test code = 237 pg/mL 213-816 774) FOLATE (BEAKER) (test code = 362) 4.00 ng/mL >=7.00 L House Calls Nurse ID - EDASIBASIC METABOLIC [id number] 04:53:00 Test Item Value Reference Range Interpretation [...] S NOT APPLICABLE FOR DIALYSIS PATIEN TS. House Calls Nurse ID - [id number] 04:52:00 Test Item Value Reference Range Interpretation Comments PHOSPHORUS (BEAKER) (test code = 13.6 mg/dL 2.3-4.7 HH 604) House Calls Nurse ID - EDASICALCIUM, [id number] 04:49:00 Test Item Value Reference Range Interpretation Comments CALCIUM IONIZED (BEAKER) (test 0.96 mmol/L 1.12-1.27 L code = 698) PH, BLOOD (BEAKER) (test code = 7.23 1810) [id number] 04:42:00 Test Item Value Reference Range Interpretation Comments MAGNESIUM (BEAKER) (test code = 2.6 mg/dL 1.6-2.6 627) House Calls Nurse ID - EDASIHEPATIC FUNCTION [id number] 04:42:00 Test Item Value Reference Range Interpretation [...] (test code = 12 U/L 6-55 347) House Calls Nurse ID - EDASIPT/GLLW7519-66-31 04:41:00 Test Item Value Reference Range Interpretation [...] mechanical heart valves.CBC W/PLT COUNT & AUTO [id number] 04:37:00 Test Item Value Reference Range Interpretation [...] 0-1 H PERCENT (BEAKER) (test code = 2802) LACTIC ACID, [id number] 04:29:00 Test Item Value Reference Range Interpretation Comments LACTATE BLOOD VENOUS (2) (BEAKER) 0.34 mmol/L 0.50-2.20 L (test code = 2872) House Calls Nurse ID - YEFRI, ahhjpr8395-40-12 04:16:00 Test Item Value Reference Range Interpretation Comments ABO Grouping (test code = 2588) O Rh Factor (test code = 2589) [facility]pt[facility]2020-05-24 04:13:00 Test Item Value Reference Range Interpretation Comments SARS-COV2/RT-PCR Negative Not Detected, (test code = Negative, See 20245-7) external report for linked test SARS-COV-2 [facility] PERFORMING LAB (test code = 23593-6) FANTA (test code = Negative results do [...] of the Act. Fact Sheet for Healthcare Providers:https://www.[employer]/Documents/Xper t%20Xpress%20SARS%20CoV- 2/Fact%20Sheets/379-3612 %07COFD-RQO-0%20HEALTHCA RE%20PROVIDERS%20FACT%20 SHEET.pdf Fact Sheet for Healthcare Patients:https://www.[employer]/Documents/Xpert %20Xpress%20SARS%20CoV-2 /Fact%20Sheets/302-5611% 26ZNFC-XJI-2%20PATIENT%2 0FACT%20SHEET.pdf Performing Laboratory:[facility] [place] [address] [facility] ([facility])2020-05-24 04:13:00 Test Item Value Reference Range Interpretation Comments SARS-COV2/RT-PCR (test code Negative Not Detected, Negative, = 9011686) See external report for linked test SARS-COV-2 PERFORMING LAB [facility] (test code = 3681405) Negative results do not preclude SARS-CoV-2 infection [...] of the Act.Fact Sheet for Healthcare Pro viders:https://www.[employer]/Documents/Xpert%20Xpress%20SARS%20CoV-2/Fact%20Sh eets/3023802%54JXAM-MOI-9%20HEALTHCARE%20PROVIDERS%20FACT%20SHEET.pdfFact Sheet for Healthcare Patients:https://www.[employer].[place]/Documents/Xpert%20Xpress%20SARS%20CoV-2/Fact%20Sheets/3023801%20SARS-COV -2%20PATIENT%20FACT%20SHEET.pdfPerforming Laboratory:[facility], [place] [address]EQ/[id number] 03:29:00 Test Item Value Reference Range Interpretation [...] is2.5-3.5 for patients wiht mechanical heart valves.TROPONIN [id number] 02:23:00 Test Item Value Reference Range Interpretation [...] failure, acidosis, acute neurological disease, and persistent tachyarrhythmia.House Calls Nurse EVELYNE - DEE DEE WBASIC METABOLIC [id number] 02:22:00 Test Item Value Reference Range Interpretation [...] S NOT APPLICABLE FOR DIALYSIS PATIEN TS. House Calls Nurse ID Joseph FUNEZ [id number] 02:21:00 Test Item Value Reference Range Interpretation Comments PHOSPHORUS (BEAKER) (test code = 14.1 mg/dL 2.3-4.7 HH 604) House Calls Nurse ID - DEE DEE [id number] 02:16:00 Test Item Value Reference Range Interpretation Comments MAGNESIUM (BEAKER) (test code = 2.6 mg/dL 1.6-2.6 627) House Calls Nurse ID - DEE DEE WHEPATIC FUNCTION [id number] 02:16:00 Test Item Value Reference Range Interpretation [...] (test code = 10 U/L 6-55 347) House Calls Nurse ID Joseph FUNEZ WB-TYPE NATRIURETIC FACTOR (BNP)2020-05-24 02:12:00 Test Item Value Reference Range Interpretation Comments B-TYPE NATRIURETIC PEPTIDE (BEAKER) 459 pg/mL 0-100 H (test code = 700) House Calls Nurse ID Joseph FUNEZ WCBC W/PLT COUNT & AUTO [id number] 02:11:00 Test Item Value Reference Range Interpretation [...] (BEAKER) (test code = 2801) LACTIC ACID, [id number] 02:03:00 Test Item Value Reference Range Interpretation Comments LACTATE BLOOD VENOUS (2) (BEAKER) 0.68 mmol/L 0.50-2.20 (test code = 2872) House Calls Nurse ID - DEE DEE WSpecimen slightly lipemicRAD, [...] MDReport Verified Date/Time: 05/24/2020 01:55:13 Blood gas, [id number] 01:37:00 Test Item Value Reference Range Interpretation Comments pH, Duc (test code = 2746-6) 7.27 7.32-7.42 L pCO2, Duc (test code = 755) 26 41- 51 mmHg L pO2, Duc (test code = 2705-2) 63 25- 40 mmHg H O2 Sat, Duc (test code = 2711-0) 89.7 % 40-70 H HCO3, Duc (test code = 57734-1) 12 mmol/L 21-29 L Base Excess, Duc (test code = -14.0 mmol/L -2-3 L 1927-3) Patient Temperature (test code = 37.0 C 8310-5) FIO2 (test code = 1819) 100 % Lab Interpretation (test code = Abnormal 78809-9) [facility] HospitalBLOOD GAS, [id number] 01:37:00 Test Item Value Reference Range Interpretation [...] (BEAKER) (test code = 1819) 100.0 % HST-[id number] 00:00:00Ordered by an unspecified provider.[facility] ([facility])2020-02-23 11:58:00 Test Item Value Reference Range Interpretation Comments SARS-COV2/RT-PCR (test code = Negative Not Detected, Negative 4328802) SARS-COV-2 PERFORMING LAB [facility] (test code = 7474178) Negative result for this test determines that [...] 564(g) of the Act.Fact Sheet for Healthcare Providers:https://www.[employer].com/sites/default/files/product/documents/Fact_Shee u_HC_Hqqvjyucv_Vjji_AZRO-OgA-0.pdfFact Sheet for Healthcare Patients:https://www.[employer].com/sites/default/files/product/ documents/Sqjw_Kdclx_Mpxkbyef_Pobo_LYNL-AiV-3.pdfPerforming Laboratory:[facility] [place] [address]
[2020-09-20] MEDS ORDERED: MAGNES/ALUMIN/SIMET 30ML UCUP ONE (15:15)
[2020-09-20] MEDS ORDERED: PANTOPRAZOLE 40 MG INJ ONE ×2 (15:15→23:14)
[2020-09-20] MEDS ORDERED: LIDOCAINE VISCOUS 2% SOLN 15 ML UDC ONE (15:16)
[2020-09-20] MEDS ORDERED: NA CHLORIDE 0.9% 2,000 ML ONE (15:16)
[2020-09-20 15:35] LABS: Absolute Lymphocytes (CBC) 2.8 K/uL (0.7-4.9); Hematocrit 29.2 % (39.6-49.0); Lymphocytes % 14.8 % (15.3-44.8); RBC Red Blood Cell Count 3.23 M/uL (4.33-5.43)
[2020-09-20] MEDS ORDERED: HYDROMORPHONE HCL 1 MG/ML INJ ONE (15:47)
[2020-09-20 15:48] LABS: Albumin 2.7 g/dL (3.4-5.0); Bilirubin Direct 0.2 mg/dL (0-0.2); Bilirubin Total 0.5 mg/dL (0.2-1.0); Potassium 4.6 mmol/L (3.5-5.1); Protein, Total 6.5 g/dL (6.4-8.2)
--- NOTE | 2020-09-20 15:55 | RAD REPORT ---
EXAM DESCRIPTION: CT - Abdomen Pelvis Wo Contrast - 09/20/2020 3:37 pm CLINICAL HISTORY: Abdominal pain vomiting COMPARISON: 2019 TECHNIQUE: Computed axial tomography of the abdomen and pelvis was obtained. IV and oral contrast we re not requested. All CT scans are performed using dose optimization technique as appropriate and may include automated exposure control or mA/KV adjustment according to patient size. FINDINGS: The evaluation of solid organs, vessels and bowel is limited secondary to the lack of con trast administration. Contrast is present within the colon from a prior small bowel series. Artifact results in limited izzy luation of adjacent structures. The liver, spleen, pancreas, adrenals and kidneys appear grossly normal Chronic vertebral spinal deformities. Mild dilatation portions of the small bowel. Small amount ascites IMPRESSION: Mild dilatation of portions of small bowel may indicate a mild partial obstruction or ad ynamic ileus/enteritis
[2020-09-20 16:25] LABS: Blood Morphology Comment NOT SEEN (NOT SEEN); Platelet Estimate DECR
--- NOTE | 2020-09-20 18:34 | RAD REPORT ---
EXAM DESCRIPTION: Aide Single View09/20/2020 6:09 pm CLINICAL HISTORY: Congestion COMPARISON: September 14 FINDINGS: Mild bilateral pulmonary opacities. Heart is normal size. Central venous catheter in plac e IMPRESSION: Mild bilateral pulmonary opacities may indicate mild pulmonary edema
--- NOTE | 2020-09-20 18:38 | P.HP ---
Certification for Inpatient Patient admitted to: Inpatient With expected LOS: >2 Midnights Practitioner: I am a practitioner with admitting privileges, knowledge of patient current condition, hospital course, and medical plan of care. Services: Services provided to patient in accordance with Admission requirements found in Title 42 Section 412.3 of the Code of Federal Regulations Patient History Date of Service: 09/20/20 Reason for admission: Dose of vomiting and abdominal pain History of Present Illness: 55-year-old male who is a care home resident was transferred to the ER with nausea vomiting and abdominal pain chest pain going on for the last 3 4 days and was worsening progressively and was sent to ER. he has a past medical history of hypertension, hyperlipidemia, end-stage renal disease on dialysis Monday, chronic anemia and history of GI bleed, history of gastritis and duodenal ulceration. He was recently been admitted to the hospital for GI bleed and was sent back to care home. patient started having abdominal pain which is diffuse cramping type 7/10 in severity associated with nausea and vomiting. Was assessed in the ER and was admitted for further management. At the time of interview patient is vitals stable. Still continues to have abdominal distention and pain. Still nauseous. CT of the abdomen pelvis showed possible small-bowel obstruction versus antritis and was admitted for further management Allergies No Known Allergies Allergy (Unverified 02/22/20 16:32) Home medications list reviewed: Yes Home Medications: Atorvastatin Calcium [Lipitor*] 20 mg PO BEDTIME 07/16/20 Cyanocobalamin [Vitamin B-12*] 1,000 mcg PO DAILY 07/16/20 Doxazosin [Cardura*] 2 mg PO BEDTIME 07/16/20 Folic Acid 1 mg PO DAILY 07/16/20 Gabapentin 300 mg PO BID 07/16/20 Sevelamer Carbonate [Renvela*] 800 mg PO TIDWM 07/16/20 Tamsulosin [Flomax*] 0.4 mg PO BEDTIME 07/16/20 Thiamine HCl 100 mg PO DAILY 07/16/20 Zinc Sulfate [Zinc Sulfate*] 220 mg PO DAILY 07/16/20 carvediloL [Coreg*] 25 mg PO BID 07/16/20 Docusate [Colace Cap*] 100 mg PO BID #60 cap 07/25/20 Mannitol 25% [Mannitol*] 12.5 gm IV EVERY HD PRN vial 12/05/20 Nepro Shake [Nepro*] 237 ml PO DAILY #30 can 08/31/20 Sevelamer Carbonate [Renvela*] 800 mg PO TIDWM #90 tablet 08/31/20 Ubidecarenone [Coenzyme Q10*] 200 mg PO DAILY #30 cap 08/31/20 traMADol HCL [Ultram*] 50 mg PO Q6H PRN #30 tab 08/31/20 Epoetin [Retacrit] 10,000 unit IV EVERY HD vial 09/18/20 Iron Polysaccharide Complex [Polysaccharide Iron] 150 mg PO DAILY #30 capsule 09/18/20 Pantoprazole Sodium [Protonix] 40 mg PO BID #60 09/18/20 - Past Medical/Surgical History Diabetic: No Past Medical History: Reviewed- Non-Contributory -: GERD -: Prior GI bleed -: ESRD on hemodialysis -: Anemia of chronic disease -: Hypertension -: Hyperlipidemia -: BPH Past Surgical History: Reviewed- Non-Contributory -: pelvis sx 11 years ago Psychosocial/ Personal History: Patient is homeless. He does not have any family members. - Family History Family History: Reviewed- Non-Contributory - Family History Father -: Other (see notes) Notes: alcoholism - Social History Smoking Status: Never smoker Alcohol use: No CD- Drugs: No Caffeine use: No Review of Systems 10-point ROS is otherwise unremarkable (Complains of nausea vomiting and abdominal pain. Denies chest pain shortness of breath. Denies any chest discomfort) Physical Examination - Vital Signs Temperature: 98.2 F Blood Pressure: 162/78 Pulse: 78 Respirations: 18 - Physical Exam General: Alert, Oriented x3, Mild distress HEENT: Atraumatic, Normocephalic Neck: Supple Respiratory: Clear to auscultation bilaterally, Normal air movement Cardiovascular: Regular rate/rhythm, Normal S1 S2 Capillary refill: <2 Seconds Gastrointestinal: Non-distended, W/out hepatosplenomegaly, Tenderness Musculoskeletal: No clubbing, No swelling Integumentary: No rashes Neurological: Normal speech, Abnormal gait Lymphatics: No axilla or inguinal lymphadenopathy - Studies Laboratory Data (last 24 hrs) 09/20/20 15:19: WBC 19.00 H D, Hgb 9.7 L, Hct 29.2 L, Plt Count 102 L 09/20/20 15:19: Sodium 135 L, Potassium 4.6, BUN 37 H, Creatinine 7.12 H* D, Glucose 95, Total Bilirubin 0.5, AST 51 H, ALT 24, Alkaline Phosphatase 96, Lipase 81 Assessment and Plan - Problems (Diagnosis) (1) GI bleed Current Visit: No Status: Chronic (2) Hypercalcemia Current Visit: No Status: Chronic (3) Hypertension Current Visit: No Status: Chronic (4) Nausea & vomiting Current Visit: No Status: Acute Qualifiers: Vomiting Intractability: unspecified (5) Renal failure Current Visit: No Status: Chronic Qualifiers: Chronic kidney disease stage: on chronic dialysis - Plan Small-bowel obstruction Possible enteritis Leukocytosis ESRD on dialysis Chronic anemia due to blood loss/chronic disease Hypercalcemia Hyponatremia Plan Monitor under telemetry CT findings noted to have possible SBO / enteritis Keep NPO for now IV fluids in moderation given ESRD Will start on Flagyl Continue PPI continue home medications and titrate as needed Monitor CBC daily Transfuse p.r.n. nephrology consult for dialysis, patient is on dialysis Monday and Monday Surgical Consult GI/DVT prophylaxis Advanced directives full code Discharge Plan: Snf Plan to discharge in: Greater than 2 days - Advance Directives Does patient have a Living Will: No Does patient have a Durable POA for Healthcare: No Time Spent Managing Pts Care (In Minutes): 42
--- NOTE | 2020-09-20 18:46 | EDPHYS ---
Physician Documentation [facility] Name: Cr Orellana Age: 55 yrs Sex: Male : 1965 Arrival Date: 09/20/2020 Time: 14:21 Bed 14 Private MD: ED Physician Scott Milton HPI: 09/20 15:33 This 55 yrs old Male presents to ER via EMS with complaints of ma2 Nausea/Vomiting. 15:33 The patient presents to the emergency department with nausea, vomiting, abdominal pain, ma2 of the epigastric area. Onset: The symptoms/episode began/occurred gradually, 1 week(s) ago. Associated signs and symptoms: Pertinent negatives: belching, constipation, dysuria, flatulence. Severity of symptoms: At their worst the symptoms were mild in the emergency department the symptoms are unchanged. The patient has experienced similar episodes in the past, s/p egd has gastritis and esrd. Historical: - Allergies: 14:40 No Known Allergies; hb - PMHx: 14:40 DIALYSIS MWF; Hypertension; seasonal allergies; GI Bleed; hb - Immunization history:: Adult Immunizations up to date. - Social history:: Smoking status: Patient denies any tobacco usage or history of. - Family history:: not pertinent. ROS: 15:33 Constitutional: Negative for fever, chills, and weight loss. ma2 15:33 All other systems are negative. Exam: 15:33 Constitutional: This is a well developed, well nourished patient who is awake, alert, ma2 and in no acute distress. ENT: Nares patent. No nasal discharge, no septal abnormalities noted. Tympanic membranes are normal and external auditory canals are clear. Oropharynx with no redness, swelling, or masses, exudates, or evidence of obstruction, uvula midline. Mucous membranes moist. Neck: Trachea midline, no thyromegaly or masses palpated, and no cervical lymphadenopathy. Supple, full range of motion without nuchal rigidity, or vertebral point tenderness. No Meningismus. Chest/axilla: Normal chest wall appearance and motion. Nontender with no deformity. No lesions are appreciated. Cardiovascular: Regular rate and rhythm with a normal S1 and S2. No gallops, murmurs, or rubs. Normal PMI, no JVD. No pulse deficits. Respiratory: Lungs have equal breath sounds bilaterally, clear to auscultation and percussion. No rales, rhonchi or wheezes noted. No increased work of breathing, no retractions or nasal flaring. Abdomen/GI: Soft, non-tender, with normal bowel sounds. No distension or tympany. No guarding or rebound. No evidence of tenderness throughout. MS/ Extremity: Pulses equal, no cyanosis. Neurovascular intact. Full, normal range of motion. Neuro: Awake and alert, GCS 15, oriented to person, place, time, and situation. Cranial nerves II-XII grossly intact. Motor strength 5/5 in all extremities. Sensory grossly intact. Cerebellar exam normal. Normal gait. Vital Signs: 14:39 BP 142 / 90; Pulse 89; Resp 15; Temp 97.8; Pulse Ox 100% on R/A; Pain 10/10; hb 15:53 BP 132 / 89; Pulse 81; Resp 15; Pulse Ox 99% on R/A; hb 16:43 BP 137 / 83; Pulse 76; Resp 14; Pulse Ox 97% on R/A; hb 17:30 BP 138 / 82; Pulse 78; Resp 16; Pulse Ox 97% on R/A; hb 18:02 BP 138 / 82; Pulse 76; Resp 17; Pulse Ox 97% on R/A; hb 20:00 BP 146 / 88; Pulse 79; Resp 18; Pulse Ox 97% on R/A; MDM: 14:29 Patient medically screened. [facility] 15:33 Differential diagnosis: gastritis, diverticulitis, viral gastroenteritis, ma2 gastroenteritis. 18:42 Data reviewed: vital signs, nurses notes. Counseling: I had a detailed discussion with ma2 the patient and/or guardian regarding: the historical points, exam findings, and any diagnostic results supporting the discharge/admit diagnosis, the presence of at least one elevated blood pressure reading (>120/80) during this emergency department visit, the need for further work-up and treatment in the hospital. Response to treatment: the patient's symptoms have markedly improved after treatment. ED course: ct shows possible enteritis vs early partial mild obstruction, i called dr. caceres and he will see him tomorrow. no active gi bleed, hb is 9.7 from 7 ilast week.. he has elevated wbc. no vomiting in er. vs wnl.. I paged dr. jackson, oncall, no call back yet.. discussed and accepted by dr. Murdock . 09/20 14:55 Order name: BMP [facility] 09/20 14:55 Order name: CBC with Diff; Complete Time: 17:10 [facility] 09/20 14:55 Order name: Hepatic Function; Complete Time: 17:10 [facility] 09/20 14:55 Order name: Lipase; Complete Time: 17:10 [facility] 09/20 14:56 Order name: Basic Metabolic Panel; Complete Time: 17:10 [facility] 09/20 16:26 Order name: Manual Differential; Complete Time: 17:10 [facility] 09/20 20:12 Order name: CBC with Automated Diff [facility] 09/20 20:12 Order name: CBC with Automated Diff [facility] 09/20 20:12 Order name: Comprehensive Metabolic Panel [facility] 09/20 20:12 Order name: Comprehensive Metabolic Panel [facility] 09/20 20:19 Order name: Urine Dipstick--Ancillary (enter results) [facility] 09/20 20:44 Order name: Urine Dipstick-Ancillary [facility] 09/20 14:55 Order name: IV Saline Lock; Complete Time: 15:37 [facility] 09/20 14:55 Order name: Labs collected and sent; Complete Time: 15:37 [facility] 09/20 14:55 Order name: NPO; Complete Time: 15:36 [facility] 09/20 15:05 Order name: Abdomen ; Complete Time: 17:10 [facility] 09/20 17:17 Order name: Chest Single View XRAY; Complete Time: 18:37 [facility] 09/20 20:12 Order name: CONS Pharmacy Consult [facility] 09/20 20:12 Order name: NPO [facility] 09/20 22:19 Order name: SARS-COV-2 RT PCR [facility] 09/21 08:25 Order name: Manual Differential [facility] 09/20 14:55 Order name: Urine Dipstick-Ancillary (obtain specimen); Complete Time: 20:15 ma2 Administered Medications: 15:14 Drug: Zofran (Ondansetron) 4 mg Route: IVP; Site: right hand; hb 16:00 Follow up: Response: No adverse reaction hb 15:14 Drug: NS 0.9% 1000 ml Route: IV; Rate: 1000 ml; Site: right hand; hb 21:43 Follow up: Response: No adverse reaction; IV Status: Completed infusion 15:14 Drug: GI Cocktail without - (Maalox Suspension 30 ml, Lidocaine Liquid 2 % 15 hb ml) Route: PO; 16:00 Follow up: Response: No adverse reaction hb 15:14 Drug: NS 0.9% 1000 ml Route: IV; Rate: 1 bolus; Site: right hand; hb 21:42 Follow up: Response: No adverse reaction; IV Status: Completed infusion 15:14 Drug: Pantoprazole 80 mg Route: IVP; Site: right hand; hb 16:00 Follow up: Response: No adverse reaction hb 15:41 Drug: Dilaudid 1 mg Route: IVP; Site: right hand; hb 16:22 Follow up: Response: No adverse reaction hb Disposition: 09/20/20 18:45 Hospitalization ordered by Jimbo Murdock for Inpatient Admission. Preliminary diagnosis are Diarrhea, unspecified, Other and unspecified intestinal obstruction. - Bed requested for Telemetry/MedSurg (Inpatient). - Status is Inpatient Admission. jd3 - Condition is Stable. - Problem is new. - Symptoms are unchanged. Signatures: Dispatcher [employer] [facility] Jacqueline Cortez RN JUAN DANIEL Flaquito Lovell RN RN Alma Delia Baron RN RN Tello Winter RN RN jd3 Alzahri, Mohammad, MD MD ma2 Habalo, Winsy RN Corrections: (The following items were deleted from the chart) 15:05 14:56 Abdomen Pelvis W Con+CT.RAD.BRZ ordered. EDWV EDWV 21:16 18:45 Hospitalization Ordered by Jimbo Murdock MD for Inpatient Admission. Preliminary em diagnosis is Diarrhea, unspecified; Other and unspecified intestinal obstruction. Bed requested for Telemetry/MedSurg (Inpatient). Status is Inpatient Admission. Condition is Stable. Problem is new. Symptoms are unchanged. [facility] 21:16 21:16 09/20/2020 18:45 Hospitalization Ordered by Jimbo Murdock MD for Inpatient em Admission. Preliminary diagnosis is Diarrhea, unspecified; Other and unspecified intestinal obstruction. Bed requested for [facility] ER HOLD. Status is Inpatient Admission. Condition is Stable. Problem is new. Symptoms are unchanged. em 09/21 12:53 09/20 21:16 09/20/2020 18:45 Hospitalization Ordered by Jimbo Murdock MD for Inpatient dw Admission. Preliminary diagnosis is Diarrhea, unspecified; Other and unspecified intestinal obstruction. Bed requested for [facility] ER HOLD. Status is Inpatient Admission. Condition is Stable. Problem is new. Symptoms are unchanged. em 09/21 14:52 12:53 09/20/2020 18:45 Hospitalization Ordered by Jimbo Murdock MD for Inpatient jd3 Admission. Preliminary diagnosis is Diarrhea, unspecified; Other and unspecified intestinal obstruction. Bed requested for Telemetry/MedSurg (Inpatient). Status is Inpatient Admission. Condition is Stable. Problem is new. Symptoms are unchanged. dw
--- NOTE | 2020-09-20 18:46 | ER ---
Nurse's Notes [facility] Name: Cr Orellana Age: 55 yrs Sex: Male : 1965 Arrival Date: 09/20/2020 Time: 14:21 Bed 14 Private MD: Diagnosis: Diarrhea, unspecified;Other and unspecified intestinal obstruction Presentation: 09/20 14:35 Chief complaint: EMS states: Nausea and vomit x 2 today. Recently inpatient for GI hb bleed. Coronavirus screen: At this time, the client does not indicate any symptoms associated with coronavirus-19. Ebola Screen: No symptoms or risks identified at this time. Risk Assessment: Do you want to hurt yourself or someone else? Patient reports no desire to harm self or others. Onset of symptoms was September 20, 2020. 14:35 Method Of Arrival: EMS: [facility] 14:39 Initial Sepsis Screen: Does the patient meet any 2 criteria? No. Patient's initial hb sepsis screen is negative. Does the patient have a suspected source of infection? No. Patient's initial sepsis screen is negative. 14:39 Acuity: HUYEN 3 hb Triage Assessment: 14:40 General: Appears in no apparent distress. uncomfortable, Behavior is calm, cooperative. hb Pain: Pain currently is 10 out of 10 on a pain scale. EENT: No signs and/or symptoms were reported regarding the EENT system. Neuro: Level of Consciousness is obeys commands, lethargic, Oriented to person, place, time, situation. Cardiovascular: Capillary refill < 3 seconds Patient's skin is warm and dry. Respiratory: Respiratory effort is even, unlabored, Respiratory pattern is regular, symmetrical. GI: Reports nausea, vomiting. : No signs and/or symptoms were reported regarding the genitourinary system. Derm: Skin is dry, Skin is pale, Skin temperature is warm. Musculoskeletal: Reports pain all over. Historical: - Allergies: 14:40 No Known Allergies; hb - PMHx: 14:40 DIALYSIS MWF; Hypertension; seasonal allergies; GI Bleed; hb - Immunization history:: Adult Immunizations up to date. - Social history:: Smoking status: Patient denies any tobacco usage or history of. - Family history:: not pertinent. Screenin:41 Abuse screen: Denies threats or abuse. Denies injuries from another. Nutritional hb screening: No deficits noted. Tuberculosis screening: No symptoms or risk factors identified. Fall Risk Total Currie Fall Scale indicates Low Risk Score (25-44 pts). Fall prevention measures have been instituted. Side Rails Up X 2 Frequent Obs/Assesments occuring As available Patient and Family Educated on Fall Prevention Program and strategies. Assessment: 14:41 General: see triage assessment. hb 15:41 Reassessment: Pt c/o all over pain 05/[address] Milton notified, Dilaudid administered hb as ordered. 16:30 Reassessment: Patient appears in no apparent distress at this time. Patient and/or family updated on plan of care and expected duration. Pain level reassessed. Resting with eyes closed. 17:36 Reassessment: Patient appears in no apparent distress at this time. No changes from previously documented assessment. Patient and/or family updated on plan of care and expected duration. Pain level reassessed. 18:02 Reassessment: Patient appears in no apparent distress at this time. No changes from previously documented assessment. Patient and/or family updated on plan of care and expected duration. Pain level reassessed. 19:10 Reassessment: Patient appears in no apparent distress at this time. Patient and/or family updated on plan of care and expected duration. Pain level reassessed. 20:10 Reassessment: Patient appears in no apparent distress at this time. No changes from previously documented assessment. Patient is alert, oriented x 3, equal unlabored respirations, skin warm/dry/pink. Explained POC need for admit awaiting room assignment. Vital Signs: 14:39 BP 142 / 90; Pulse 89; Resp 15; Temp 97.8; Pulse Ox 100% on R/A; Pain 10/10; hb 15:53 BP 132 / 89; Pulse 81; Resp 15; Pulse Ox 99% on R/A; hb 16:43 BP 137 / 83; Pulse 76; Resp 14; Pulse Ox 97% on R/A; hb 17:30 BP 138 / 82; Pulse 78; Resp 16; Pulse Ox 97% on R/A; hb 18:02 BP 138 / 82; Pulse 76; Resp 17; Pulse Ox 97% on R/A; hb 20:00 BP 146 / 88; Pulse 79; Resp 18; Pulse Ox 97% on R/A; ED Course: 14:21 Patient arrived in ED. ds1 14:29 Scott Milton MD is Attending Physician. ma2 14:39 Triage completed. hb 14:40 Arm band placed on. hb 14:41 Patient has correct armband on for positive identification. Placed in gown. Bed in low hb position. Call light in reach. Side rails up X2. 15:08 Missed attempt(s): 22 gauge in left hand. Bleeding controlled, band aid applied, hb catheter tip intact. 15:14 Inserted saline lock: 24 gauge in right hand, using aseptic technique. Blood collected. hb 15:34 Alma Delia Baron, JUAN DANIEL is Primary Nurse. hb 15:37 Abdomen In Process Unspecified. EDMS 18:09 Chest Single View XRAY In Process Unspecified. EDMS 18:32 BMP Sent. sv 18:45 Jimbo Murdock MD is Hospitalizing Provider. ma2 19:07 Primary Nurse role handed off by Alma Delia Baron RN mw2 20:14 Deven Singh RN is Primary Nurse. 21:35 No provider procedures requiring assistance completed. Patient admitted, IV remains in place. 02 08:17 Primary Nurse role handed off by Deven Singh RN bd Administered Medications: 09/20 15:14 Drug: Zofran (Ondansetron) 4 mg Route: IVP; Site: right hand; hb 16:00 Follow up: Response: No adverse reaction hb 15:14 Drug: NS 0.9% 1000 ml Route: IV; Rate: 1000 ml; Site: right hand; hb 21:43 Follow up: Response: No adverse reaction; IV Status: Completed infusion 15:14 Drug: GI Cocktail without - (Maalox Suspension 30 ml, Lidocaine Liquid 2 % 15 hb ml) Route: PO; 16:00 Follow up: Response: No adverse reaction hb 15:14 Drug: NS 0.9% 1000 ml Route: IV; Rate: 1 bolus; Site: right hand; hb 21:42 Follow up: Response: No adverse reaction; IV Status: Completed infusion 15:14 Drug: Pantoprazole 80 mg Route: IVP; Site: right hand; hb 16:00 Follow up: Response: No adverse reaction hb 15:41 Drug: Dilaudid 1 mg Route: IVP; Site: right hand; hb 16:22 Follow up: Response: No adverse reaction hb Outcome: 18:45 Decision to Hospitalize by Provider. ma2 21:42 Admitted to ER Hold. Please see [facility] for further documentation. 21:42 Condition: stable 21:42 Instructed on the need for admit. 09/21 14:52 Patient left the ED. jd3 Signatures: Dispatcher [employer] EDMS Chelsea Ward Stephanie RN JUAN DANIEL Anita Mantilla ds1 Alma Delia Baron RN RN Deven Singh RN RN Tello Winter RN RN jd3 Scott Milton MD MD ma2 Stacey Mooney 2 Corrections: (The following items were deleted from the chart) 09/20 14:39 14:39 BP 142 / 90; Pulse 88bpm; Resp 15bpm; Pulse Ox 98% RA; Temp 97.9F; Pain 10/10; hb hb 15:40 15:08 Inserted saline lock: 24 gauge in right hand, using aseptic technique. Blood hb collected. hb 20:15 20:10 Reassessment: Patient appears in no apparent distress at this time. No changes wh from previously documented assessment. wh 20:16 20:10 Reassessment: Patient appears in no apparent distress at this time. No changes wh from previously documented assessment. Patient is alert, oriented x 3, equal unlabored respirations, skin warm/dry/pink. wh
[2020-09-20] MEDS ORDERED: SODIUM CHLORIDE 0.9% 10ML INJ IV PRN (20:12)
[2020-09-20 20:44] LABS: Urine Blood 2+ (NEG); Urine Glucose TRACE (NEG); Urine Protein 2+ (NEG); Urine pH 8.5 (5.0-7.0)
[2020-09-20] MEDS: PANTOPRAZOLE 40 MG INJ IVP SCH (21:00)
[2020-09-20] MEDS: NA CHLORIDE 0.9% 1,000 ML IV SCH (21:00)
[2020-09-20 21:35] VITALS: BMI 23.3
[2020-09-20] MEDS ORDERED: NA CHLORIDE 0.9% 1,000 ML ONE (23:14)
[2020-09-21] MEDS: METRONIDAZOLE 500mg IVPB 500 MG/100 ML BAG IV SCH ×3 (01:00→16:16)
[2020-09-21] MEDS: HEPARIN 5000 UNIT/ML 1 ML VIAL SQ SCH ×3 (01:00→16:18)
[2020-09-21] MEDS: MORPHINE 2 MG/ML SYR IV PRN ×5 (02:30→22:07)
[2020-09-21] MEDS ORDERED: HEPARIN 5000 UNIT/ML 1 ML VIAL ONE ×2 (02:42→08:28)
[2020-09-21] MEDS ORDERED: METRONIDAZOLE 500mg IVPB 500 MG/100 ML BAG IV ONE ×2 (02:43→08:28)
[2020-09-21] MEDS ORDERED: MORPHINE 2 MG/ML SYR ONE ×3 (02:43→13:30)
[2020-09-21 05:56] LABS: MPV 8.1 fL (7.6-11.3); RBC Red Blood Cell Count 2.97 M/uL (4.33-5.43)
[2020-09-21 06:15] LABS: Albumin 2.4 g/dL (3.4-5.0); Bilirubin Total 0.4 mg/dL (0.2-1.0); Potassium 4.7 mmol/L (3.5-5.1); Protein, Total 5.7 g/dL (6.4-8.2)
[2020-09-21 08:24] LABS: Hypersegmented Neutrophils PRESENT; Platelet Estimate DECR
[2020-09-21 08:25] LABS: Anisocytosis SLIGHT; Blood Morphology Comment NOTED (NOT SEEN)
[2020-09-21] MEDS ORDERED: PANTOPRAZOLE 40 MG INJ ONE (08:28)
[2020-09-21] MEDS: PANTOPRAZOLE 40 MG INJ IVP SCH ×2 (09:49→22:05)
--- NOTE | 2020-09-21 10:52 | CON ---
Date of Consultation: 09/21/2020 Brief History Of Present Illness: The patient is a 55-year-old intermediate resident, transferred to the ER with nausea, vomiting, abdominal pain, chest pain going on for 3 to 4 days prior to his trans jim to the ER. He was complaining that the pain was significantly in the lower abdomen, not associat ed nausea, vomiting, but he does have a history of gastritis with duodenal ulceration. He had an end oscopy for GI bleeding with Dr. Martínez. He comes in right now stating he no longer has nausea, vomit ing, abdominal pain, bloating, distention. He has been passing gas as of this morning. Past Medical History: Significant for GERD, GI bleeding, ESRD on hemodialysis Monday, Monday, Mon, anemia of chronic disease, hypertension, hyperlipidemia, BPH. Past Surgical History: He has had pelvic surgery 11 years ago, cannot recall the details of which. Family History: The patient is homeless, does not have any family members. Medications: Include Lipitor, vitamin B12, Cardura, folic acid, gabapentin, Renvela, Flomax, thiamin e, zinc sulfate, Coreg, Colace, mannitol, Nepro, , Ultram, Retacrit, polysaccharide iron, P rotonix. Allergies: NO KNOWN DRUG ALLERGIES. Social History: He has a history of smoking and alcohol usage in the past. Review of Systems: Ten-point review of systems other than HPI, denies. Physical Examination: Vital Signs: At the time of my examination; temperature 98.2, blood pressure 160/78, pulse 78, respi ratory rate 18. General: He is awake, alert, oriented. Psychiatric: He has a flat affect. Otherwise, answers questions appropriately. Neck: Supple without JVD. Chest: Normal expansion and excursion. Cardiovascular: Regular rate and rhythm. Pulmonary: Clear to consultation bilaterally. Abdomen: Soft, nontender, nondistended. No rebound. No guarding. No focal peritonitis. Extremities: No clubbing, cyanosis, or edema. Skin: Warm and dry. Laboratory Data: Reveals a white blood count of 14.1 down from 19 on admission, hemoglobin 8.9 down from 9.7 on admission, hematocrit of 27, platelet count is 98. His neutrophil bands were 3. Sodium 136, potassium 4.7, chloride 104, carbon dioxide is 22, BUN 44, creatinine 7.3, glucose was 79, total bilirubin 0.4, AST is 45, ALT 19, alkaline phosphatase is 78. His lipase was 81. His UA showed 2+ blood, 2+ protein. He had imaging performed, which included a CT of the abdomen and pelvis, official ly read as mild dilatation portion of small bowel indicating a mild partial obstruction or adynamic i leus/enteritis. He had a chest x-ray performed as well, which showed mild bilateral pulmonary opacit ies, may indicate pulmonary edema. Assessment And Plan: This is a 55-year-old male, who comes in with signs and symptoms of an enteriti s. 1.IV fluid hydration. 2.Start clear liquids and advance diet. 3.Serial exams. 4.Continue medical management. 5.The patient does not have an operative abdomen at this point, as such we will continue with nonope rative management. I explained the risks, benefits, and alternatives of above stated plan. The jordyn ent agrees to proceed as indicated. I recommend GI consultation as well for continuity. SURI/DOUGIE Voice ID: [id number] Report ID: [id number]
[2020-09-21] MEDS ORDERED: PNEUMOCOCCAL VACCINE 0.5 ML IMVAC ONE (11:00)
[2020-09-21] MEDS: NA CHLORIDE 0.9% 1,000 ML IV SCH (16:13)
--- NOTE | 2020-09-21 18:14 | P.PN ---
Subjective Date of Service: 09/21/20 Chief Complaint: Dose of vomiting and abdominal pain Patient complaining of heart burn, generalized body pain and weakness. He denies abdominal pain. Physical Examination - Vital Signs Temperature: 98.3 F Blood Pressure: 106/58 Pulse: 90 Respirations: 20 Pulse Ox (%): 99 - Physical Exam General: Alert, In no apparent distress, Oriented x3 HEENT: Mucous membr. moist/pink Neck: Supple, JVD not distended Respiratory: Clear to auscultation bilaterally, Normal air movement Cardiovascular: No edema, Regular rate/rhythm, Normal S1 S2 Gastrointestinal: Normal bowel sounds, Soft and benign, Non-distended, No tenderness Musculoskeletal: No swelling Integumentary: No rashes Neurological: Normal strength at 5/5 x4 extr, Cranial nerves 3-12 intact Assessment And Plan - Current Problems (Diagnosis) (1) Enteritis Current Visit: Yes Status: Acute (2) Gastritis Current Visit: Yes Status: Acute (3) End-stage renal disease on hemodialysis Current Visit: No Status: Acute (4) History of GI bleed Current Visit: Yes Status: Acute (5) Anemia Current Visit: No Status: Acute - Plan Patient seen by General surgery-Dr. Warren. Medical management recommended. Continue IV Flagyl. Clear liquid diet. Serial abdominal examination. Consulting nephrology for hemodialysis. Continue PPI.
[2020-09-21] MEDS ORDERED: MANNITOL 25% 12.5 GM/50 ML VIAL IV PRN (21:31)
[2020-09-21] MEDS ORDERED: NA CHLORIDE 0.9% 1,000 ML IV PRN (21:31)
[2020-09-21] MEDS ORDERED: ALBUMIN HUMAN 25% 50 ML IV SCH (22:00)
[2020-09-21] MEDS: ONDANSETRON 4 MG/2 ML VIAL IV PRN (22:05)
[2020-09-21 22:35] LABS: Urine Appearance CLEAR; Urine Bilirubin NEGATIVE (NEG); Urine Blood 1+ (NEG); Urine Color YELLOW; Urine Glucose TRACE (NEG); Urine Protein 1+ (NEG); Urine Specific Gravity <=1.005 (1.005-1.030); Urine Urobilinogen 0.2 mg/dL (0.2-1.0)
[2020-09-21 22:57] LABS: Urine Microscopic Reflex ORDER UMIC
[2020-09-21 23:24] LABS: Urine Amorphous Sediment 3+ /HPF (NONE SEEN); Urine RBC <5 /HPF (NONE SEEN); Urine Urothelial Cells <5 /HPF (NONE SEEN)
[2020-09-21 23:25] LABS: Urine Bacteria >50 /HPF (NONE SEEN)
[2020-09-22] MEDS: HEPARIN 5000 UNIT/ML 1 ML VIAL SQ SCH ×3 (01:49→16:46)
[2020-09-22] MEDS: METRONIDAZOLE 500mg IVPB 500 MG/100 ML BAG IV SCH ×3 (01:50→16:45)
[2020-09-22] MEDS: MORPHINE 2 MG/ML SYR IV PRN ×2 (04:07→20:48)
[2020-09-22 06:05] LABS: Albumin 2.6 g/dL (3.4-5.0); Bilirubin Total 0.6 mg/dL (0.2-1.0); Magnesium 2.4 mg/dL (1.8-2.4); Phosphorus 8.1 mg/dL (2.5-4.9); Protein, Total 6.3 g/dL (6.4-8.2)
[2020-09-22 06:10] LABS: Potassium 5.8 mmol/L (3.5-5.1)
[2020-09-22 06:15] LABS: Hematocrit 31.3 % (39.6-49.0); MPV 7.9 fL (7.6-11.3); RBC Red Blood Cell Count 3.45 M/uL (4.33-5.43)
[2020-09-22 07:37] LABS: Blood Morphology Comment NOT SEEN (NOT SEEN); Platelet Estimate DECR
--- NOTE | 2020-09-22 08:24 | P.CNS ---
Date of Consult: 09/21/20 Reason for Consult: ESRD Requesting Physician: Jim Muniz Chief Complaint: Dose of vomiting and abdominal pain History of Present Illness: 55-year-old male who is a halfway resident was transferred to the ER with nausea vomiting and abdominal pain chest pain going on for the last 3 4 days and was worsening progressively and was sent to ER. he has a past medical history of hypertension, hyperlipidemia, end-stage renal disease on dialysis Monday, chronic anemia and history of GI bleed, history of gastritis and duodenal ulceration. He was recently been admitted to the hospital for GI bleed and was sent back to halfway. patient started having abdominal pain which is diffuse cramping type 7/10 in severity associated with nausea and vomiting. Was assessed in the ER and was admitted for further management. At the time of interview patient is vitals stable. Still continues to have abdominal distention and pain. Still nauseous. CT of the abdomen pelvis showed possible small-bowel obstruction versus antritis and was admitted for further management. 15:33 This 55 yrs old Male presents to ER via EMS with complaints of ma2 Nausea/Vomiting. 15:33 The patient presents to the emergency department with nausea, vomiting, abdominal pain, ma2 of the epigastric area. Onset: The symptoms/episode began/occurred gradually, 1 week(s) ago. Associated signs and symptoms: Pertinent negatives: belching, constipation, dysuria, flatulence. Severity of symptoms: At their worst the symptoms were mild in the emergency department the symptoms are unchanged. The patient has experienced similar episodes in the past, s/p egd has gastritis and esrd. Allergies No Known Allergies Allergy (Unverified 02/22/20 16:32) Home medications list reviewed: Yes Home Medications: Atorvastatin Calcium 20 mg PO BEDTIME 09/21/20 Carvedilol [Coreg] 25 mg PO BID 09/21/20 Cyanocobalamin [Vitamin B-12] 1,000 mcg PO DAILY 09/21/20 Docusate Sodium 100 mg PO DAILY 09/21/20 Doxazosin Mesylate 2 mg PO BEDTIME 09/21/20 Folic Acid 1 mg PO DAILY 09/21/20 Gabapentin 300 mg PO BEDTIME 09/21/20 Gabapentin 600 mg PO DAILY 09/21/20 Iron Polysaccharide Complex [Polysaccharide Iron] 150 mg PO DAILY 09/21/20 Nepro Shake [Nepro*] 237 ml PO DAILY 09/21/20 Pantoprazole Sodium 40 mg PO DAILY 09/21/20 Sevelamer Carbonate [Renvela] 800 mg PO TIDWM 09/21/20 Tamsulosin HCl [Flomax] 0.4 mg PO BEDTIME 09/21/20 Tizanidine [Zanaflex] 2 mg PO BID 09/21/20 Tramadol HCl [Ultram] 50 mg PO Q6HP PRN 09/21/20 Ubidecarenone [Co Q-10] 200 mg PO DAILY 09/21/20 Zinc Sulfate [Zinc Sulfate*] 220 mg PO DAILY 09/21/20 - Past Medical/Surgical History Diabetic: No -: GERD -: Prior GI bleed -: ESRD on hemodialysis -: Anemia of chronic disease -: Hypertension -: Hyperlipidemia -: BPH -: pelvis sx 11 years ago Psychosocial/ Personal History: Patient is homeless. He does not have any family members. - Family History Father Medical History: Other (see notes) Notes: alcoholism - Social History Smoking Status: Current some day smoker Alcohol use: No CD- Drugs: No Caffeine use: No Review of Systems 10-point ROS is otherwise unremarkable General: Weakness, Malaise Gastrointestinal: Abdominal Pain, Diarrhea Neurological: Weakness Physical Examination Temp Pulse Resp BP Pulse Ox 98.2 F 92 H 18 165/87 H 92 09/22/20 04:00 09/22/20 04:00 09/22/20 04:00 09/22/20 04:00 09/22/20 04:00 General: Cooperative, Mild distress HEENT: Atraumatic Neck: Supple Respiratory: Clear to auscultation bilaterally Cardiovascular: No edema, Regular rate/rhythm Gastrointestinal: Non-distended, Tenderness Musculoskeletal: No clubbing, No contractures Integumentary: No rashes, No cyanosis Neurological: Abnormal speech Blood work reviewed in the chart. Imagings Data: EXAM DESCRIPTION: RAD - Chest Single View - 09/22/2020 9:14 am CLINICAL HISTORY: elevated temp Chest pain. COMPARISON: Chest Single View dated 09/20/2020; Chest Single View dated 09/14/2020; Chest Single View dated 08/26/2020; Chest Single View dated 07/24/2020 FINDINGS: Portable technique limits examination quality. Mild bilateral interstitial lung opacities appear slightly worse relative to comparative study. The heart is mildly enlarged in size. Right-sided venous catheter tip in the right atrium. IMPRESSION: Mild worsening in bilateral pulmonary opacities, greater on the left, seen since prior study. EXAM DESCRIPTION: RAD - Abdomen 1 View (KUB) - 09/22/2020 9:14 am CLINICAL HISTORY: SBO Pain COMPARISON: Abdomen Pelvis Wo Contrast dated 09/20/2020 FINDINGS: Mildly prominent small bowel loops in the central abdomen are noted. No suspicious calcifications. No significant bony findings. Contrast is seen in the colon. IMPRESSION: Several mildly prominent small bowel loops in the central abdomen are noted. Contrast is seen in the colon. An ileus is favored over a mechanical obstruction. Conclusions/Impression: A/ ESRD on HD Hyperkalemia Hypercalcemia HTN with CKD/ CHF Diastolic CHF, chronic Moderate malnutrition Anemia in CKD MIAH/ Secondary HyperPTH BPH with LUTS Enteritis GI hemorrhage P/ Continue current POC and Medications Arrange for acute HD. Follow up with surgery. Continue Cefepime and Flagyl. No NSAIDs. AM labs. Daily weight. Thank you kindly for the consultation.
[2020-09-22] MEDS: ACETAMINOPHEN 650MG/RECT SUPP PR PRN (08:34)
[2020-09-22] MEDS ORDERED: CEFEPIME 1 GM/VIAL IV SCH (09:00)
[2020-09-22] MEDS ORDERED: PAMIDRONATE 60 MG in NA CHLORIDE 0.9% 500 ML IV ONE (09:00)
[2020-09-22] MEDS ORDERED: EPOETIN ALFA 10,000 UNIT/ML VIAL SQ SCH (09:00)
[2020-09-22] MEDS ORDERED: PAMIDRONATE DISOD 30 MG VIAL IV ONE (09:00)
[2020-09-22] MEDS: CEFEPIME/SWI 1gm 10 ML IV SCH (09:22)
[2020-09-22] MEDS: PANTOPRAZOLE 40 MG INJ IVP SCH ×2 (09:23→20:36)
--- NOTE | 2020-09-22 09:30 | P.PN ---
Subjective Date of Service: 09/22/20 Chief Complaint: Dose of vomiting and abdominal pain Subjective: No new changes (patient more lethargic this morning per nursing - received morphine ~2hrs prior to my exam. Arousable, answers questions briefly, denies pain) Review of Systems 10-point ROS is otherwise unremarkable Physical Examination - Vital Signs Temperature: 103.3 F Blood Pressure: 165/87 Pulse: 92 Respirations: 18 Pulse Ox (%): 92 Assessment & Plan Physician Review Additional Text: Physical Exam: Gen: lethargic, arousable, NAD HEENT: MMM, sclera anicteric CV: RRR, no edema Pulm: CTAB, no wheeze/rales, breathing comfortably on RA Abd: soft, NTND Ext: no rash Problem List Enteritis Gastritis ESRD on HD h/o GI Bleed Anemia -initially concern for pSBO vs enteritis -general surgery consulted - recommended medical management, consider GI consult - currently do not have GI coverage, Hgb stable, will continue to monitor closely -no BM since admission -treated with IV Flagyl - continue, and will add Cefepime - pt febrile this morning, BP/HR ok, will re-culture, CXR, KUB -UA concerning for possible UTI as well -nephrology consulted for HD Dispo: hospitalization > 48hrs, eventual dc back to [facility] Time Spent Managing Pts Care (In Minutes): 40
--- NOTE | 2020-09-22 09:57 | RAD REPORT ---
EXAM DESCRIPTION: RAD - Chest Single View - 09/22/2020 9:14 am CLINICAL HISTORY: elevated temp Chest pain. COMPARISON: Chest Single View dated 09/20/2020; Chest Single View dated 09/14/2020; Chest Single View dated 08/26/2020; Chest Single View dated 07/24/2020 FINDINGS: Portable technique limits examination quality. Mild bilateral interstitial lung opacities appear slightly worse relative to comparative study. The h eart is mildly enlarged in size. Right-sided venous catheter tip in the right atrium. IMPRESSION: Mild worsening in bilateral pulmonary opacities, greater on the left, seen since prior s radha.
--- NOTE | 2020-09-22 09:59 | RAD REPORT ---
EXAM DESCRIPTION: RAD - Abdomen 1 View (KUB) - 09/22/2020 9:14 am CLINICAL HISTORY: SBO Pain COMPARISON: Abdomen Pelvis Wo Contrast dated 09/20/2020 FINDINGS: Mildly prominent small bowel loops in the central abdomen are noted. No suspicious calcifi cations. No significant bony findings. Contrast is seen in the colon. IMPRESSION: Several mildly prominent small bowel loops in the central abdomen are noted. Contrast is seen in the colon. An ileus is favored over a mechanical obstruction.
[2020-09-22] MEDS: NA CHLORIDE 0.9% 1,000 ML IV SCH (13:00)
--- NOTE | 2020-09-22 15:30 | P.PN ---
Subjective Date of Service: 09/22/20 Chief Complaint: Dose of vomiting and abdominal pain Subjective: Worsening (Patient has no GI complaints, but seems more confused today, no acute events, passing gas by report, but no BM, no emesis, denies nausea.) Physical Examination - Vital Signs Temperature: 98.7 F Blood Pressure: 119/67 Pulse: 101 Respirations: 20 Pulse Ox (%): 96 - Physical Exam General: Alert, In no apparent distress, Confused Gastrointestinal: Soft and benign, Non-distended, No ascites, No tenderness, No masses, No rebound, No guarding Assessment And Plan - Current Problems (Diagnosis) (1) Enteritis Current Visit: Yes Status: Acute Plan: - Patient continues to have findings consistent with enteritis - continue antibiotics for now, however i am uncertain if his fever is attributible to this alone, continue medical management - serial exams - ok to advance diet to full liquid from surgical standpoint, - hemodialysis today Physician Review Additional Text: Physical Exam: Gen: lethargic, arousable, NAD HEENT: MMM, sclera anicteric CV: RRR, no edema Pulm: CTAB, no wheeze/rales, breathing comfortably on RA Abd: soft, NTND Ext: no rash Problem List Enteritis Gastritis ESRD on HD h/o GI Bleed Anemia -initially concern for pSBO vs enteritis -general surgery consulted - recommended medical management, consider GI consult - currently do not have GI coverage, Hgb stable, will continue to monitor closely -no BM since admission -treated with IV Flagyl - continue, and will add Cefepime - pt febrile this morning, BP/HR ok, will re-culture, CXR, KUB -UA concerning for possible UTI as well -nephrology consulted for HD Dispo: hospitalization > 48hrs, eventual dc back to [facility]
[2020-09-22] MEDS: ACETAMINOPHEN 500 MG TAB PO PRN (16:45)
--- NOTE | 2020-09-22 20:51 | P.PN ---
Date of Service: 09/22/20 Vital Signs Temp Pulse Resp BP Pulse Ox 98.2 F 75 20 159/82 H 96 09/22/20 17:45 09/22/20 16:00 09/22/20 16:00 09/22/20 16:00 09/22/20 16:00 Medications Acetaminophen (Acetaminophen 500 Mg Tab) 500 mg PO Q6H PRN PRN Reason: TEMP > 100' F Stop: 10/20/20 20:10 Last Admin: 09/22/20 16:45 Dose: 500 mg Documented by: Acetaminophen (Acetaminophen 650mg/Rect Supp) 650 mg ND Q4H PRN PRN Reason: TEMP > 100' F Stop: 10/22/20 08:21 Last Admin: 09/22/20 08:34 Dose: 650 mg Documented by: Heparin Sodium (Porcine) (Heparin 5000 Unit/Ml 1 Ml Vial) 5,000 unit SQ Q8HR ELY Stop: 10/21/20 01:01 Last Admin: 09/22/20 16:46 Dose: 5,000 unit Documented by: Heparin Sodium (Porcine) (Heparin 1,000 Unit/Ml Vial) 6,000 unit IV EVERY HD PRN PRN Reason: AFTER EACH Stop: 10/21/20 21:32 Last Admin: 09/22/20 15:57 Dose: 6,000 unit Documented by: Sodium Chloride (Ns 1000 Ml Ivbag) 1,000 mls @ 50 mls/hr IV .Q20H ELY Stop: 10/20/20 21:01 Last Admin: 09/21/20 16:13 Dose: 1,000 mls Documented by: Metronidazole/Sodium Chloride (Flagyl 500mg/100 Ml Iv Premix) 500 mg in 100 mls @ 200 mls/hr IV Q8HR ELY; Protocol Stop: 10/21/20 01:01 Last Admin: 09/22/20 16:45 Dose: 100 mls Documented by: Albumin Human (Albumin 25%) 50 mls @ 100 mls/hr IV EVERY HD [facility] Stop: 10/21/20 22:01 Cefepime HCl (Maxipime 1 Gm/10 Ml Ivp) 10 mls @ 200 mls/hr IV DAILY ELY Stop: 10/22/20 09:01 Last Admin: 09/22/20 09:22 Dose: 10 mls Documented by: Mannitol (Mannitol 25% 12.5 Gm/50 Ml Vial) 12.5 gm IV EVERY HD PRN PRN Reason: Titrate to SBP (MUST DEFINE) Stop: 10/21/20 21:32 Morphine Sulfate (Morphine 2 Mg/Ml Syr) 2 mg IV Q6H PRN PRN Reason: Pain scale 5-7 (Moderate) Stop: 10/20/20 20:10 Ondansetron HCl (Ondansetron 4 Mg/2 Ml Vial) 4 mg IV Q8H PRN PRN Reason: NAUSEA / VOMITING Stop: 10/20/20 20:10 Last Admin: 09/21/20 22:05 Dose: 4 mg Documented by: Pantoprazole Sodium (Pantoprazole 40 Mg Inj) 40 mg IVP Q12HR ELY; Protocol Stop: 10/20/20 21:01 Last Admin: 09/22/20 20:36 Dose: 40 mg Documented by: Sodium Chloride (Flush Normal Saline 10 Ml) 10 ml IV BID ELY Stop: 10/20/20 21:01 Last Admin: 09/22/20 20:36 Dose: 10 ml Documented by: Sodium Chloride (Flush Normal Saline 10 Ml) 10 ml IV BID ELY Stop: 10/20/20 21:01 Last Admin: 09/22/20 20:36 Dose: 10 ml Documented by: Sodium Chloride (Sodium Chloride 0.9% 10ml Inj) 10 ml IV UD PRN PRN Reason: Diluant Stop: 10/20/20 20:13 Last Admin: 09/21/20 22:06 Dose: 10 ml Documented by: Assessment/ Plan: Nephrology No cardiac or pulmonary complaints. No CP or SOB. Malaise, weakness and abdominal pain. No acute events overnight. Vitals, medications, blood work and imaging reviewed in the chart. General: Cooperative, Mild distress HEENT: Atraumatic Neck: Supple Respiratory: Clear to auscultation bilaterally Cardiovascular: No edema, Regular rate/rhythm Gastrointestinal: Non-distended, Tenderness Musculoskeletal: No clubbing, No contractures Integumentary: No rashes, No cyanosis Neurological: Abnormal speech Blood work reviewed in the chart. Imagings Data: EXAM DESCRIPTION: RAD - Chest Single View - 09/22/2020 9:14 am CLINICAL HISTORY: elevated temp Chest pain. COMPARISON: Chest Single View dated 09/20/2020; Chest Single View dated 09/14/2020; Chest Single View dated 08/26/2020; Chest Single View dated 07/24/2020 FINDINGS: Portable technique limits examination quality. Mild bilateral interstitial lung opacities appear slightly worse relative to comparative study. The heart is mildly enlarged in size. Right-sided venous catheter tip in the right atrium. IMPRESSION: Mild worsening in bilateral pulmonary opacities, greater on the left, seen since prior study. EXAM DESCRIPTION: RAD - Abdomen 1 View (KUB) - 09/22/2020 9:14 am CLINICAL HISTORY: SBO Pain COMPARISON: Abdomen Pelvis Wo Contrast dated 09/20/2020 FINDINGS: Mildly prominent small bowel loops in the central abdomen are noted. No suspicious calcifications. No significant bony findings. Contrast is seen in the colon. IMPRESSION: Several mildly prominent small bowel loops in the central abdomen are noted. Contrast is seen in the colon. An ileus is favored over a mechanical obstruction. Conclusions/Impression: A/ ESRD on HD Hyperkalemia Hypercalcemia HTN with CKD/ CHF Diastolic CHF, chronic Moderate malnutrition Anemia in CKD MIAH/ Secondary HyperPTH BPH with LUTS Enteritis GI hemorrhage P/ Continue current POC and Medications Acute HD ordered. Give a dose of IV pamidronate. Follow up with surgery. Continue Cefepime and Flagyl. No NSAIDs. AM labs. Daily weight. Cased reviewed with Dr. Muniz
[2020-09-23] MEDS: HEPARIN 5000 UNIT/ML 1 ML VIAL SQ SCH ×3 (00:40→17:42)
[2020-09-23] MEDS: METRONIDAZOLE 500mg IVPB 500 MG/100 ML BAG IV SCH ×2 (00:40→08:20)
[2020-09-23] MEDS: MORPHINE 2 MG/ML SYR IV PRN ×2 (03:19→12:33)
[2020-09-23 06:28] LABS: Hematocrit 24.7 % (39.6-49.0); MPV 7.9 fL (7.6-11.3); RBC Red Blood Cell Count 2.73 M/uL (4.33-5.43)
[2020-09-23 06:33] LABS: Albumin 2.2 g/dL (3.4-5.0); Bilirubin Total 0.5 mg/dL (0.2-1.0); Potassium 3.9 mmol/L (3.5-5.1); Protein, Total 5.2 g/dL (6.4-8.2)
[2020-09-23 07:32] LABS: Basophilic Stippling 1+; Blood Morphology Comment NOTED (NOT SEEN); Platelet Estimate DECR
[2020-09-23] MEDS: CEFEPIME/SWI 1gm 10 ML IV SCH (08:21)
[2020-09-23] MEDS: PANTOPRAZOLE 40 MG INJ IVP SCH ×2 (08:22→20:24)
[2020-09-23] MEDS: ACETAMINOPHEN 500 MG TAB PO PRN (08:29)
[2020-09-23] MEDS: NA CHLORIDE 0.9% 1,000 ML IV SCH ×2 (09:00→20:26)
[2020-09-23] MEDS: DOCUSATE NA 100 MG CAP PO SCH ×2 (10:53→20:24)
--- NOTE | 2020-09-23 11:19 | P.PN ---
Subjective Date of Service: 09/23/20 Chief Complaint: Dose of vomiting and abdominal pain Subjective: Other (No acute events overnight, patient more alert and oriented this morning, still with some lethargy. Denies abdominal pain, denies shortness of breath) Review of Systems 10-point ROS is otherwise unremarkable Physical Examination - Vital Signs Temperature: 100.6 F Blood Pressure: 102/57 Pulse: 98 Respirations: 16 Pulse Ox (%): 93 Assessment & Plan Physician Review Additional Text: Physical Exam: Gen: lethargic, arousable, NAD, AAOx2 HEENT: MMM, sclera anicteric CV: RRR, no edema Pulm: diminished at bilateral bases, breathing comfortably on RA Abd: soft, NTND Ext: no rash Problem List Enteritis/ Gastritis UTI ESRD on HD h/o GI Bleed Anemia -initially concern for pSBO vs enteritis -general surgery consulted - recommended medical management and to consider GI consult - currently do not have GI coverage, Hgb stable, will continue to monitor closely, abd nontender on exam -no BM since admission, +bowel sounds on exam, will add colace -on IV flagyl and Cefepime (started /), continues with intermittent fever, repeat cultures without any growth so far; will discuss further with ID today -UA concerning for possible UTI as well, however culture without any growth -nephrology consulted for HD Dispo: hospitalization > 48hrs, eventual dc back to [facility] Time Spent Managing Pts Care (In Minutes): 40
[2020-09-23] MEDS ORDERED: PIPER/TAZO/NS 2.25gm 2.25 GM/50 ML BAG IVPB SCH (12:00)
--- NOTE | 2020-09-23 12:18 | CON ---
History Of Present Illness: This is a 55-year-old male. I was consulted for persistent fever. The patient has significant history of end-stage renal disease, on hemodialysis with Jesus Manuel catheter to the right chest wall. The patient was started on IV antibiotic. Today, his temperature is about 100 .2. The patient is much better according to the staff, not a good historian. Most of the history wa s obtained through medical records and staff. The patient has initial admission through emergency ro om with nausea, vomiting, and abdominal pain, chest pain going for 3 to 4 days prior to admission. T he patient also has significant past medical history of hypertension, hyperlipidemia, end-stage renal disease with dialysis on Monday, Monday, Monday, anemia of chronic disease, and history of GI ble ed. Denies any headache, nausea, vomiting, chest pain, abdominal pain, constipation, or diarrhea. Past Medical History: As per HPI. Social History: Nonsmoker, nondrinker. Family History: Noncontributory. Medications: Flagyl and cefepime. See MAR for other medications. Allergies: NO KNOWN DRUG ALLERGIES. Review of Systems: A 10-point review was performed. Physical Examination: General: This is a 55-year-old male, lying in bed, not in any acute cardiopulmonary distress. Vital Signs: Temperature 100.6, pulse 98, respirations 16, blood pressure 102/57. HEENT: Unremarkable. Neck: Supple. Lungs: Clear to auscultation. Heart: S1, S2. Regular. Abdomen: Soft, nontender. Bowel sounds present. Extremities: No edema. Muscle wasting noted. Laboratory Data: Shows WBC 13,000, hemoglobin 8, platelets are 87. Sodium 136, potassium 3.9, chlor destin 102, bicarb 26, BUN 34, creatinine 5.05, glucose is 93. Albumin level is 2.2. Micro data; blood cultures are negative for 24 hours. Chest x-ray done on yesterday showed mild worsening in the bila teral pulmonary opacities, greater on the left. Assessment And Plan: This is a 55-year-old male with multiple medical problems including end-stage r enal disease, on hemodialysis, coming in with nausea, vomiting, and fevers, and abdominal and chest d iscomfort, doing better today. The patient is currently on Flagyl and cefepime. We will recommend t o switch to Zosyn and getting an MRI with oral contrast of abdominal and pelvic area to rule out any abscess. Another possibilities could be the patient's Jesus Manuel catheter to the right chest wall, panc ytopenia with moderate protein-calorie malnourishment. The patient to continue antibiotic for at beti st 10-14 days depending on culture results. We will recommend Zosyn as 2.25 g q.12 hours, can be swi tched to oral once the patient is stabilized. Continue supportive care. Thank you for consult. NF/MODL Voice ID: [id number] Report ID: [id number]
[2020-09-23] MEDS: PIPER/TAZO/NS 2.25gm 2.25 GM/50 ML BAG IVPB SCH ×2 (12:34→20:25)
--- NOTE | 2020-09-23 16:25 | RAD REPORT ---
EXAM DESCRIPTION: CT - Abdomen Pelvis Wo Contrast - 09/23/2020 4:05 pm CLINICAL HISTORY: Abdominal pain COMPARISON: September 20, 2020 TECHNIQUE: Computed axial tomography of the abdomen and pelvis was obtained. IV and oral contrast we re not requested. All CT scans are performed using dose optimization technique as appropriate and may include automated exposure control or mA/KV adjustment according to patient size. FINDINGS: The evaluation of solid organs, vessels and bowel is limited secondary to the lack of con trast administration. Development of moderate to marked left lower lobe alveolar opacities. Mild lingular opacities. Minima l pleural effusions. Contrast within the esophagus compatible with reflux The liver, spleen, pancreas, and adrenal appear grossly normal. Small kidneys. Normal appendix. No evidence of diverticulitis. Small amount of free fluid. Spondylosis involves lumb ar spine resulting in spinal stenosis Small bowel caliber has diminished since prior exam. Loop surround generally normal to upper limits n ormal caliber No abdominal/pelvic abscess IMPRESSION: Gastroesophageal reflux [id number] alveolar opacities within the left lower lobe may indicate aspiration pneumonia
--- NOTE | 2020-09-23 20:01 | P.PN ---
Date of Service: 09/23/20 Vital Signs Temp Pulse Resp BP Pulse Ox 99.4 F 92 H 20 130/72 100 09/23/20 16:00 09/23/20 16:00 09/23/20 16:00 09/23/20 16:00 09/23/20 16:00 Medications Acetaminophen (Acetaminophen 500 Mg Tab) 500 mg PO Q6H PRN PRN Reason: TEMP > 100' F Stop: 10/20/20 20:10 Last Admin: 09/23/20 08:29 Dose: 500 mg Documented by: Acetaminophen (Acetaminophen 650mg/Rect Supp) 650 mg VA Q4H PRN PRN Reason: TEMP > 100' F Stop: 10/22/20 08:21 Last Admin: 09/22/20 08:34 Dose: 650 mg Documented by: Docusate Sodium (Docusate Na 100 Mg Cap) 100 mg PO BID [facility] Stop: 10/23/20 09:01 Last Admin: 09/23/20 10:53 Dose: 100 mg Documented by: Enteral Nutritional Formula (Ensure Clear 200 Ml Can) 237 ml PO BID [facility] Stop: 10/23/20 21:01 Heparin Sodium (Porcine) (Heparin 5000 Unit/Ml 1 Ml Vial) 5,000 unit SQ Q8HR [facility] Stop: 10/21/20 01:01 Last Admin: 09/23/20 17:42 Dose: 5,000 unit Documented by: Heparin Sodium (Porcine) (Heparin 1,000 Unit/Ml Vial) 6,000 unit IV EVERY HD PRN PRN Reason: AFTER EACH Stop: 10/21/20 21:32 Last Admin: 09/22/20 15:57 Dose: 6,000 unit Documented by: Sodium Chloride (Ns 1000 Ml Ivbag) 1,000 mls @ 50 mls/hr IV .Q20H [facility] Stop: 10/20/20 21:01 Last Admin: 09/23/20 09:00 Dose: 1,000 mls Documented by: Albumin Human (Albumin 25%) 50 mls @ 100 mls/hr IV EVERY HD [facility] Stop: 10/21/20 22:01 Piperacillin/Tazobactam/Sod Chloride (Zosyn 2.25 Gm/50 Ml Ivpb) 2.25 gm in 50 mls @ 100 mls/hr IVPB Q12HR [facility]; Protocol Stop: 10/23/20 12:01 Last Admin: 09/23/20 12:34 Dose: 50 mls Documented by: Mannitol (Mannitol 25% 12.5 Gm/50 Ml Vial) 12.5 gm IV EVERY HD PRN PRN Reason: Titrate to SBP (MUST DEFINE) Stop: 10/21/20 21:32 Morphine Sulfate (Morphine 2 Mg/Ml Syr) 2 mg IV Q6H PRN PRN Reason: Pain scale 5-7 (Moderate) Stop: 10/20/20 20:10 Last Admin: 09/23/20 12:33 Dose: 2 mg Documented by: Ondansetron HCl (Ondansetron 4 Mg/2 Ml Vial) 4 mg IV Q8H PRN PRN Reason: NAUSEA / VOMITING Stop: 10/20/20 20:10 Last Admin: 09/21/20 22:05 Dose: 4 mg Documented by: Pantoprazole Sodium (Pantoprazole 40 Mg Inj) 40 mg IVP Q12HR [facility]; Protocol Stop: 10/20/20 21:01 Last Admin: 09/23/20 08:22 Dose: 40 mg Documented by: Sodium Chloride (Flush Normal Saline 10 Ml) 10 ml IV BID [facility] Stop: 10/20/20 21:01 Last Admin: 09/23/20 08:22 Dose: 10 ml Documented by: Sodium Chloride (Flush Normal Saline 10 Ml) 10 ml IV BID [facility] Stop: 10/20/20 21:01 Last Admin: 09/23/20 08:22 Dose: 10 ml Documented by: Sodium Chloride (Sodium Chloride 0.9% 10ml Inj) 10 ml IV UD PRN PRN Reason: Diluant Stop: 10/20/20 20:13 Last Admin: 09/21/20 22:06 Dose: 10 ml Documented by: Assessment/ Plan: Nephrology No cardiac or pulmonary complaints. No CP or SOB. Malaise and weakness. Nurse reports intermittent fever with confusion. No acute events overnight. Vitals, medications, blood work and imaging reviewed in the chart. General: Cooperative, Mild distress HEENT: Atraumatic Neck: Supple Respiratory: Clear to auscultation bilaterally Cardiovascular: No edema, Regular rate/rhythm Gastrointestinal: Non-distended, Tenderness Musculoskeletal: No clubbing, No contractures Integumentary: No rashes, No cyanosis Neurological: Abnormal speech Blood work reviewed in the chart. Imagings Data: EXAM DESCRIPTION: RAD - Chest Single View - 09/22/2020 9:14 am CLINICAL HISTORY: elevated temp Chest pain. COMPARISON: Chest Single View dated 09/20/2020; Chest Single View dated 09/14/2020; Chest Single View dated 08/26/2020; Chest Single View dated 07/24/2020 FINDINGS: Portable technique limits examination quality. Mild bilateral interstitial lung opacities appear slightly worse relative to comparative study. The heart is mildly enlarged in size. Right-sided venous catheter tip in the right atrium. IMPRESSION: Mild worsening in bilateral pulmonary opacities, greater on the left, seen since prior study. EXAM DESCRIPTION: RAD - Abdomen 1 View (KUB) - 09/22/2020 9:14 am CLINICAL HISTORY: SBO Pain COMPARISON: Abdomen Pelvis Wo Contrast dated 09/20/2020 FINDINGS: Mildly prominent small bowel loops in the central abdomen are noted. No suspicious calcifications. No significant bony findings. Contrast is seen in the colon. IMPRESSION: Several mildly prominent small bowel loops in the central abdomen are noted. Contrast is seen in the colon. An ileus is favored over a mechanical obstruction. Conclusions/Impression: A/ ESRD on HD Hyperkalemia Hypercalcemia HTN with CKD/ CHF Diastolic CHF, chronic Moderate malnutrition Anemia in CKD MIAH/ Secondary HyperPTH BPH with LUTS Enteritis GI hemorrhage P/ Continue current POC and Medications Next HD tomorrow. Follow up with surgery. Continue Cefepime and Flagyl. ID to evaluate the patient. No NSAIDs. AM labs. Daily weight.
[2020-09-23] MEDS: ENSURE CLEAR 200 ML CAN PO SCH (20:24)
[2020-09-24] MEDS: HEPARIN 5000 UNIT/ML 1 ML VIAL SQ SCH ×2 (00:08→09:00)
[2020-09-24] MEDS: MORPHINE 2 MG/ML SYR IV PRN ×3 (02:35→21:30)
[2020-09-24 05:49] LABS: Absolute Lymphocytes (CBC) 1.5 K/uL (0.7-4.9); Basophils % 11.6 % (0-1.3); Hematocrit 21.2 % (39.6-49.0); Lymphocytes % 11.9 % (15.3-44.8); MPV 7.8 fL (7.6-11.3); RBC Red Blood Cell Count 2.35 M/uL (4.33-5.43)
[2020-09-24 06:30] LABS: Albumin 2.1 g/dL (3.4-5.0); Bilirubin Total 0.6 mg/dL (0.2-1.0); Magnesium 2.1 mg/dL (1.8-2.4); Phosphorus 6.6 mg/dL (2.5-4.9); Potassium 4.1 mmol/L (3.5-5.1); Protein, Total 5.2 g/dL (6.4-8.2)
[2020-09-24 06:57] LABS: Platelet Estimate DECR
[2020-09-24 06:58] LABS: Blood Morphology Comment NOT SEEN (NOT SEEN)
[2020-09-24] MEDS ORDERED: EPOETIN ALFA-EPBX 10,000 UNIT/ML VIAL SQ ONE (08:09)
--- NOTE | 2020-09-24 08:12 | P.PN ---
Date of Service: 09/24/20 Vital Signs Temp Pulse Resp BP Pulse Ox 98.0 F 88 16 131/76 96 09/24/20 04:00 09/24/20 04:00 09/24/20 04:00 09/24/20 04:00 09/24/20 04:00 Medications Acetaminophen (Acetaminophen 500 Mg Tab) 500 mg PO Q6H PRN PRN Reason: TEMP > 100' F Stop: 10/20/20 20:10 Last Admin: 09/23/20 08:29 Dose: 500 mg Documented by: Acetaminophen (Acetaminophen 650mg/Rect Supp) 650 mg ND Q4H PRN PRN Reason: TEMP > 100' F Stop: 10/22/20 08:21 Last Admin: 09/22/20 08:34 Dose: 650 mg Documented by: Docusate Sodium (Docusate Na 100 Mg Cap) 100 mg PO BID [facility] Stop: 10/23/20 09:01 Last Admin: 09/23/20 20:24 Dose: Not Given Documented by: Enteral Nutritional Formula (Ensure Clear 200 Ml Can) 237 ml PO BID [facility] Stop: 10/23/20 21:01 Last Admin: 09/23/20 20:24 Dose: Not Given Documented by: Heparin Sodium (Porcine) (Heparin 5000 Unit/Ml 1 Ml Vial) 5,000 unit SQ Q8HR [facility] Stop: 10/21/20 01:01 Last Admin: 09/24/20 00:08 Dose: 5,000 unit Documented by: Heparin Sodium (Porcine) (Heparin 1,000 Unit/Ml Vial) 6,000 unit IV EVERY HD PRN PRN Reason: AFTER EACH Stop: 10/21/20 21:32 Last Admin: 09/22/20 15:57 Dose: 6,000 unit Documented by: Sodium Chloride (Ns 1000 Ml Ivbag) 1,000 mls @ 50 mls/hr IV .Q20H [facility] Stop: 10/20/20 21:01 Last Admin: 09/23/20 20:26 Dose: 1,000 mls Documented by: Albumin Human (Albumin 25%) 50 mls @ 100 mls/hr IV EVERY HD [facility] Stop: 10/21/20 22:01 Piperacillin/Tazobactam/Sod Chloride (Zosyn 2.25 Gm/50 Ml Ivpb) 2.25 gm in 50 mls @ 100 mls/hr IVPB Q12HR [facility]; Protocol Stop: 10/23/20 12:01 Last Admin: 09/23/20 20:25 Dose: 50 mls Documented by: Mannitol (Mannitol 25% 12.5 Gm/50 Ml Vial) 12.5 gm IV EVERY HD PRN PRN Reason: Titrate to SBP (MUST DEFINE) Stop: 10/21/20 21:32 Morphine Sulfate (Morphine 2 Mg/Ml Syr) 2 mg IV Q6H PRN PRN Reason: Pain scale 5-7 (Moderate) Stop: 10/20/20 20:10 Last Admin: 09/24/20 02:35 Dose: 2 mg Documented by: Ondansetron HCl (Ondansetron 4 Mg/2 Ml Vial) 4 mg IV Q8H PRN PRN Reason: NAUSEA / VOMITING Stop: 10/20/20 20:10 Last Admin: 09/21/20 22:05 Dose: 4 mg Documented by: Pantoprazole Sodium (Pantoprazole 40 Mg Inj) 40 mg IVP Q12HR [facility]; Protocol Stop: 10/20/20 21:01 Last Admin: 09/23/20 20:24 Dose: 40 mg Documented by: Sodium Chloride (Flush Normal Saline 10 Ml) 10 ml IV BID [facility] Stop: 10/20/20 21:01 Last Admin: 09/23/20 20:24 Dose: 10 ml Documented by: Sodium Chloride (Flush Normal Saline 10 Ml) 10 ml IV BID [facility] Stop: 10/20/20 21:01 Last Admin: 09/23/20 20:25 Dose: 10 ml Documented by: Sodium Chloride (Sodium Chloride 0.9% 10ml Inj) 10 ml IV UD PRN PRN Reason: Diluant Stop: 10/20/20 20:13 Last Admin: 09/21/20 22:06 Dose: 10 ml Documented by: Vitamin B Complex/Vit C/Folic Acid (Multivitamins,Therapeut 1 Tab) 1 tab PO DAILY [facility] Stop: 10/24/20 09:01 Assessment/ Plan: Nephrology No cardiac or pulmonary complaints. No CP or SOB. More alert today and complaining of BL hand pain. No acute events overnight. Vitals, medications, blood work and imaging reviewed in the chart. General: Cooperative, Mild distress HEENT: Atraumatic Neck: Supple Respiratory: Clear to auscultation bilaterally Cardiovascular: No edema, Regular rate/rhythm Gastrointestinal: Non-distended, Tenderness Musculoskeletal: No clubbing, No contractures Integumentary: No rashes, No cyanosis Neurological: Abnormal speech Blood work reviewed in the chart. Imagings Data: EXAM DESCRIPTION: RAD - Chest Single View - 09/22/2020 9:14 am CLINICAL HISTORY: elevated temp Chest pain. COMPARISON: Chest Single View dated 09/20/2020; Chest Single View dated 09/14/2020; Chest Single View dated 08/26/2020; Chest Single View dated 07/24/2020 FINDINGS: Portable technique limits examination quality. Mild bilateral interstitial lung opacities appear slightly worse relative to comparative study. The heart is mildly enlarged in size. Right-sided venous catheter tip in the right atrium. IMPRESSION: Mild worsening in bilateral pulmonary opacities, greater on the left, seen since prior study. EXAM DESCRIPTION: RAD - Abdomen 1 View (KUB) - 09/22/2020 9:14 am CLINICAL HISTORY: SBO Pain COMPARISON: Abdomen Pelvis Wo Contrast dated 09/20/2020 FINDINGS: Mildly prominent small bowel loops in the central abdomen are noted. No suspicious calcifications. No significant bony findings. Contrast is seen in the colon. IMPRESSION: Several mildly prominent small bowel loops in the central abdomen are noted. Contrast is seen in the colon. An ileus is favored over a mechanical obstruction. Conclusions/Impression: A/ ESRD on HD Hyperkalemia Hypercalcemia HTN with CKD/ CHF Diastolic CHF, chronic Moderate malnutrition Anemia in CKD MIAH/ Secondary HyperPTH BPH with LUTS Enteritis GI hemorrhage Asp PNA P/ Continue current POC and Medications Acute HD today. PRBC with HD today. Give Retacrit. Continue Zosyn. No NSAIDs. AM labs. Daily weight. Case reviewed with Dr. Muniz.
[2020-09-24] MEDS: MULTIVITAMINS,THERAPEUT 1 TAB PO SCH (09:00)
[2020-09-24] MEDS: DOCUSATE NA 100 MG CAP PO SCH ×2 (09:00→21:00)
[2020-09-24] MEDS: ENSURE CLEAR 200 ML CAN PO SCH ×2 (09:00→21:02)
[2020-09-24] MEDS: PIPER/TAZO/NS 2.25gm 2.25 GM/50 ML BAG IVPB SCH ×2 (09:20→21:03)
[2020-09-24] MEDS: PANTOPRAZOLE 40 MG INJ IVP SCH ×2 (09:20→21:01)
--- NOTE | 2020-09-24 09:43 | P.PN ---
Subjective Date of Service: 09/24/20 Chief Complaint: Dose of vomiting and abdominal pain Subjective: Improving (Patient more alert and awake this morning, complaining of bilateral hand pain (chronic for the past few months), denies shortness of breath, denies abdominal pain) Review of Systems 10-point ROS is otherwise unremarkable Physical Examination - Vital Signs Temperature: 98.0 F Blood Pressure: 131/76 Pulse: 88 Respirations: 16 Pulse Ox (%): 96 Assessment & Plan Physician Review Additional Text: Physical Exam: Gen: NAD, AAOx2 HEENT: Dry mucous membrane CV: RRR, no edema Pulm: diminished at bilateral bases, breathing comfortably on 1 L NC Abd: soft, NTND Ext: no rash Problem List Enteritis/ Gastritis Acute metabolic encephalopathy secondary to Aspiration pneumonia, improving UTI ESRD on HD h/o GI Bleed Anemia of chronic disease -initially concern for pSBO vs enteritis, General Surgery was consulted and agreed with medical management. -the patient no longer having abdominal pain. Had a bowel movement yesterday, reported no blood. -hemoglobin is trending down, had dialysis, but no fluid removed, ? Dilutional, and due to ESRD. Patient was recently here for hematochezia /gastritis. Will transfuse 1 unit PRBC with dialysis today -currently do not have GI coverage, will continue to monitor closely, abd nontender on exam, will check Hemoccult, patient does have history of hemorrhoids -+bowel sounds on exam, continued colace -on IV flagyl and Cefepime (started /) - ID consulted and patient was switched to Zosyn, repeat CT abdomen/pelvis shows bilateral opacities, worse on the left, concerning for possible aspiration pneumonia -UA concerning for possible UTI as well, however culture without any growth -blood cultures without any growth -patient was made NPO yesterday pending swallow evaluation -nephrology consulted for HD -pro calcitonin remains elevated however patient is on dialysis which can lead to slow clearing Dispo: hospitalization > 48hrs, eventual dc back to [facility] Time Spent Managing Pts Care (In Minutes): 35
--- NOTE | 2020-09-24 11:10 | P.PN ---
Subjective Date of Service: 09/24/20 Chief Complaint: Dose of vomiting and abdominal pain Patient seen and examined at bedside. No acute complaints at this time. Remains afebrile with a Tmax of 98.0 Review of Systems 10-point ROS is otherwise unremarkable Physical Examination - Vital Signs Temperature: 98.0 F Blood Pressure: 131/76 Pulse: 88 Respirations: 16 Pulse Ox (%): 96 - Physical Exam General: Alert HEENT: Atraumatic, Normocephalic Neck: Supple, 2+ carotid pulse no bruit Respiratory: Crackles/rales (left lower lobe ) Cardiovascular: No edema, Regular rate/rhythm, Normal S1 S2 Capillary refill: <2 Seconds Gastrointestinal: Normal bowel sounds, Other (scar tissue mas palpated on right LQ from heprin shots ) Musculoskeletal: No clubbing, No swelling Integumentary: No rashes, No breakdown - Studies Laboratory Last Values WBC 19.00 K/uL (4.3-10.9) H D 09/20/20 15:19 RBC 3.23 M/uL (4.33-5.43) L D 09/20/20 15:19 Hgb 9.7 g/dL (13.6-17.9) L 09/20/20 15:19 Hct 29.2 % (39.6-49.0) L 09/20/20 15:19 MCV 90.3 fL (80-100) 09/20/20 15:19 MCH 30.1 pg (27.0-35.0) 09/20/20 15:19 MCHC 33.4 g/dL (32.0-36.0) 09/20/20 15:19 RDW 16.5 % (12.1-15.2) H 09/20/20 15:19 Plt Count 102 K/uL (152-406) L 09/20/20 15:19 MPV 8.0 fL (7.6-11.3) 09/20/20 15:19 Neutrophils % 72.2 % (41.7-73.7) 09/20/20 15:19 Lymphocytes % 14.8 % (15.3-44.8) L 09/20/20 15:19 Monocytes % 11.2 % (3.3-12.3) 09/20/20 15:19 Eosinophils % 0.8 % (0-4.4) 09/20/20 15:19 Basophils % 1.0 % (0-1.3) 09/20/20 15:19 Absolute Neutrophils 13.7 K/uL (1.8-8.0) H 09/20/20 15:19 Segmented Neutrophils 55 % (40-80) 09/20/20 15:19 Absolute Lymphocytes 2.8 K/uL (0.7-4.9) 09/20/20 15:19 Lymphocytes 30 % (15-42) 09/20/20 15:19 Monocytes 9 % (0-10) 09/20/20 15:19 Absolute Monocytes 2.1 K/uL (0.1-1.3) H 09/20/20 15:19 Eosinophils 1 % (0-3) 09/20/20 15:19 Absolute Eosinophils 0.2 K/uL (0-0.5) 09/20/20 15:19 Absolute Basophils 0.2 K/uL (0-0.5) 09/20/20 15:19 Metamyelocytes 2 % (0-0) H 09/20/20 15:19 Myelocytes 1 % (0-0) H 09/20/20 15:19 Atypical Lymphocytes 2 % 09/20/20 15:19 Platelet Estimate Decr 09/20/20 15:19 Morphology Comment Not seen (NOT SEEN) 09/20/20 15:19 Sodium 135 mmol/L (136-145) L 09/20/20 15:19 Potassium 4.6 mmol/L (3.5-5.1) 09/20/20 15:19 Chloride 98 mmol/L (98-107) 09/20/20 15:19 Carbon Dioxide 27 mmol/L (21-32) 09/20/20 15:19 BUN 37 mg/dL (7-18) H 09/20/20 15:19 Creatinine 7.12 mg/dL (0.55-1.3) H* D 09/20/20 15:19 Estimated GFR 8 mL/min (=/>90) L 09/20/20 15:19 Glucose 95 mg/dL (74-106) 09/20/20 15:19 Calcium 12.8 mg/dL (8.5-10.1) H* D 09/20/20 15:19 Total Bilirubin 0.5 mg/dL (0.2-1.0) 09/20/20 15:19 Direct Bilirubin 0.2 mg/dL (0-0.2) 09/20/20 15:19 AST 51 U/L (15-37) H 09/20/20 15:19 ALT 24 U/L (12-78) 09/20/20 15:19 Alkaline Phosphatase 96 U/L (45-117) 09/20/20 15:19 Serum Total Protein 6.5 g/dL (6.4-8.2) 09/20/20 15:19 Albumin 2.7 g/dL (3.4-5.0) L 09/20/20 15:19 Globulin 3.8 g/dL (2.3-3.5) H 09/20/20 15:19 Albumin/Globulin Ratio 0.7 (1.1-1.8) L 09/20/20 15:19 Lipase 81 U/L (73-393) 09/20/20 15:19 Medications List Reviewed: Yes Assessment And Plan - Plan Assessment 1. admonimal pain CT abdomen with oral contrast showed no abdominal/pelvic abscess and no acute GI pathology 2. leukocytosis 3. ESRD on HD 4. moderate protein-calorie malnourishment 5. possible lower left lobe aspiration pneumonia Plan 1. CT abdomen with oral contrast showed no abdominal/pelvic abscess and no acute GI pathology 2. WBC is downtrending continue to monitor 3. ESRD-continue HD 4. Monitor albumin and prealbumin 5. CT of abdomen and pelvis showed [id number] alveolar opacities within the left lower lobe may indicate aspiration pneumonia on 09/23. CXR showed Mild worsening in bilateral pulmonary opacities, greater on the left, seen since prior study on 09/22. Plan is to continue Zosyn 2.25 g q.12 hours, can be switched to oral once the patient is stabilized. Continue supportive care. Medical management per primary team plan of care discussed with Dr. Menendez.
--- NOTE | 2020-09-24 12:20 | P.PN ---
Subjective Date of Service: 09/24/20 Chief Complaint: Dose of vomiting and abdominal pain Subjective: Improving (remains confused, had BM, passing gas) Physical Examination - Vital Signs Temperature: 98.0 F Blood Pressure: 131/76 Pulse: 88 Respirations: 16 Pulse Ox (%): 96 - Physical Exam General: Alert, Cooperative, Confused Gastrointestinal: Soft and benign, Non-distended, No ascites, No tenderness, No masses, No rebound, No guarding - Studies Medications List Reviewed: Yes Assessment And Plan - Current Problems (Diagnosis) (1) Enteritis Current Visit: Yes Status: Acute Plan: - Patient has no abdominal symptoms at this time, recommend consideration of enteral feeds if swallow study and speech path clear patient for PO, if not consider post pyloric feeding, followed by consideration for permanent feeding access if mental status does not improve - continue antibiotics for now, possible due to aspiration pneumonia, continue medical management - serial exams Physician Review Additional Text: Physical Exam: Gen: NAD, AAOx2 HEENT: Dry mucous membrane CV: RRR, no edema Pulm: diminished at bilateral bases, breathing comfortably on 1 L NC Abd: soft, NTND Ext: no rash Problem List Enteritis/ Gastritis Acute metabolic encephalopathy secondary to Aspiration pneumonia, improving UTI ESRD on HD h/o GI Bleed Anemia of chronic disease -initially concern for pSBO vs enteritis, General Surgery was consulted and agreed with medical management. -the patient no longer having abdominal pain. Had a bowel movement yesterday, reported no blood. -hemoglobin is trending down, had dialysis, but no fluid removed, ? Dilutional, and due to ESRD. Patient was recently here for hematochezia /gastritis. Will transfuse 1 unit PRBC with dialysis today -currently do not have GI coverage, will continue to monitor closely, abd nontender on exam, will check Hemoccult, patient does have history of hemorrhoids -+bowel sounds on exam, continued colace -on IV flagyl and Cefepime (started 09/22) - ID consulted and patient was switched to Zosyn, repeat CT abdomen/pelvis shows bilateral opacities, worse on the left, concerning for possible aspiration pneumonia -UA concerning for possible UTI as well, however culture without any growth -blood cultures without any growth -patient was made NPO yesterday pending swallow evaluation -nephrology consulted for HD -pro calcitonin remains elevated however patient is on dialysis which can lead to slow clearing Dispo: hospitalization > 48hrs, eventual [facility]
--- NOTE | 2020-09-24 12:20 | P.PN ---
Subjective Date of Service: 09/23/20 Chief Complaint: Dose of vomiting and abdominal pain Subjective: Improving (Patient remains confused, but alert, conversive, tolerated liquids but conern of aspiration presented) Physical Examination - Vital Signs Temperature: 98.0 F Blood Pressure: 131/76 Pulse: 88 Respirations: 16 Pulse Ox (%): 96 - Physical Exam General: Alert, In no apparent distress, Confused Gastrointestinal: Soft and benign, Non-distended, No ascites, No tenderness, No masses, No rebound, No guarding - Studies Medications List Reviewed: Yes Assessment And Plan - Current Problems (Diagnosis) (1) Enteritis Current Visit: Yes Status: Acute Plan: - Patient has no abdominal symptoms at this time, recommend consideration of enteral feeds if swallow study and speech path clear patient for PO, if not consider post pyloric feeding, followed by consideration for permanent feeding access if mental status does not improve - continue antibiotics for now, possible due to aspiration pneumonia, continue medical management - serial exams Physician Review Additional Text: Physical Exam: Gen: NAD, AAOx2 HEENT: Dry mucous membrane CV: RRR, no edema Pulm: diminished at bilateral bases, breathing comfortably on 1 L NC Abd: soft, NTND Ext: no rash Problem List Enteritis/ Gastritis Acute metabolic encephalopathy secondary to Aspiration pneumonia, improving UTI ESRD on HD h/o GI Bleed Anemia of chronic disease -initially concern for pSBO vs enteritis, General Surgery was consulted and agreed with medical management. -the patient no longer having abdominal pain. Had a bowel movement yesterday, reported no blood. -hemoglobin is trending down, had dialysis, but no fluid removed, ? Dilutional, and due to ESRD. Patient was recently here for hematochezia /gastritis. Will transfuse 1 unit PRBC with dialysis today -currently do not have GI coverage, will continue to monitor closely, abd nontender on exam, will check Hemoccult, patient does have history of hemorrhoids -+bowel sounds on exam, continued colace -on IV flagyl and Cefepime (started 09/22) - ID consulted and patient was switched to Zosyn, repeat CT abdomen/pelvis shows bilateral opacities, worse on the left, concerning for possible aspiration pneumonia -UA concerning for possible UTI as well, however culture without any growth -blood cultures without any growth -patient was made NPO yesterday pending swallow evaluation -nephrology consulted for HD -pro calcitonin remains elevated however patient is on dialysis which can lead to slow clearing Dispo: hospitalization > 48hrs[facility]
--- NOTE | 2020-09-24 14:39 | RAD REPORT ---
EXAM DESCRIPTION: RAD - Barium Swallow Modified - 09/24/2020 2:32 pm CLINICAL HISTORY: aspiration pneumonia COMPARISON: Abdomen Pelvis Wo Contrast dated 09/23/2020 TECHNIQUE: The patient was given liquid, semi-solid and solid forms of barium. Lateral view fluorosc opic imaging was performed in conjunction with speech pathology service. FINDINGS: Laryngeal penetration not cleared with thin and nectar. Pharyngeal residue vallecular mile d to moderate with all consistancies. Total fluoroscopy time: 3 minutes and 29 seconds
[2020-09-24] MEDS ORDERED: NA CHLORIDE 0.9% 250 ML ONE (15:43)
[2020-09-24 20:02] LABS: Hematocrit 28.3 % (39.6-49.0)
[2020-09-24] MEDS: NA CHLORIDE 0.9% 1,000 ML IV SCH (22:45)
[2020-09-25 05:53] LABS: Absolute Lymphocytes (CBC) 1.4 K/uL (0.7-4.9); Basophils % 1.4 % (0-1.3); Hematocrit 25.9 % (39.6-49.0); Lymphocytes % 8.8 % (15.3-44.8); MPV 7.9 fL (7.6-11.3); RBC Red Blood Cell Count 2.92 M/uL (4.33-5.43)
[2020-09-25 06:04] LABS: Potassium 3.8 mmol/L (3.5-5.1)
[2020-09-25 07:58] LABS: Blood Morphology Comment NOT SEEN (NOT SEEN); Platelet Estimate DECR; White Blood Cell Scan OK (OK)
[2020-09-25] MEDS: ENSURE CLEAR 200 ML CAN PO SCH ×3 (09:00→21:00)
[2020-09-25] MEDS: PIPER/TAZO/NS 2.25gm 2.25 GM/50 ML BAG IVPB SCH ×2 (09:00→21:37)
[2020-09-25] MEDS: PANTOPRAZOLE 40 MG INJ IVP SCH ×2 (09:49→21:36)
[2020-09-25] MEDS: DOCUSATE NA 100 MG CAP PO SCH ×2 (09:51→21:37)
[2020-09-25] MEDS: MULTIVITAMINS,THERAPEUT 1 TAB PO SCH (09:51)
[2020-09-25] MEDS: MORPHINE 2 MG/ML SYR IV PRN ×3 (09:56→22:55)
[2020-09-25] MEDS: NA CHLORIDE 0.9% 1,000 ML IV SCH (15:49)
[2020-09-25] MEDS: carvediloL 25 MG TAB PO SCH (16:37)
[2020-09-25] MEDS: EPOETIN ALFA-EPBX 4,000 UNIT/ML VIAL SQ SCH (16:40)
--- NOTE | 2020-09-25 17:07 | P.PN ---
Subjective Date of Service: 09/25/20 Chief Complaint: Dose of vomiting and abdominal pain Subjective: Other (failed some aspects of swallow eval, on pureed/thickened diet now, not enjoying it. otherwise feeling better, breathing better) Review of Systems 10-point ROS is otherwise unremarkable Physical Examination - Vital Signs Temperature: 97.6 F Blood Pressure: 168/92 Pulse: 87 Respirations: 17 Pulse Ox (%): 94 - Studies Medications List Reviewed: Yes Assessment & Plan Physician Review Additional Text: Physical Exam: Gen: NAD, AAOx2, cachectic HEENT: Dry mucous membranes CV: RRR, no edema Pulm: diminished at bilateral bases, breathing comfortably on RA Abd: soft, NTND Ext: no rash Problem List Enteritis/ Gastritis Acute metabolic encephalopathy secondary to Aspiration pneumonia, improving UTI ESRD on HD h/o GI Bleed Anemia of chronic disease -initially concern for pSBO vs enteritis, General Surgery was consulted and agreed with medical management. -the patient no longer having abdominal pain. has had BM, nonbloody -hemoglobin was trending down, ? Dilutional, and due to ESRD. Patient was recently here for hematochezia /gastritis. s/p 1uPRBC on 09/24 -+bowel sounds on exam, continued colace -on IV flagyl and Cefepime (started 09/22) - ID consulted and patient was switched to Zosyn, repeat CT abdomen/pelvis shows bilateral opacities, worse on the left, concerning for possible aspiration pneumonia -UA concerning for possible UTI as well, however culture without any growth -blood cultures without any growth -swallow eval noted aspiration with thin liquids -nephrology consulted for HD Dispo: hospitalization > 48hrs, eventual dc back to [facility] Time Spent Managing Pts Care (In Minutes): 35
[2020-09-25] MEDS ORDERED: PROMETHAZINE INJ 25 MG/ML AMP IV PRN (20:31)
--- NOTE | 2020-09-25 20:37 | P.PN ---
Date of Service: 09/25/20 Vital Signs Temp Pulse Resp BP Pulse Ox 97.6 F 87 17 168/92 H 94 09/25/20 17:07 09/25/20 17:07 09/25/20 17:07 09/25/20 17:07 09/25/20 17:07 Medications Acetaminophen (Acetaminophen 500 Mg Tab) 500 mg PO Q6H PRN PRN Reason: TEMP > 100' F Stop: 10/20/20 20:10 Last Admin: 09/23/20 08:29 Dose: 500 mg Documented by: Acetaminophen (Acetaminophen 650mg/Rect Supp) 650 mg IA Q4H PRN PRN Reason: TEMP > 100' F Stop: 10/22/20 08:21 Last Admin: 09/22/20 08:34 Dose: 650 mg Documented by: Carvedilol (Carvedilol 25 Mg Tab) 25 mg PO BID [facility] Last Admin: 09/25/20 16:37 Dose: 25 mg Documented by: Docusate Sodium (Docusate Na 100 Mg Cap) 100 mg PO BID [facility] Stop: 10/23/20 09:01 Last Admin: 09/25/20 09:51 Dose: 100 mg Documented by: Doxazosin Mesylate (Doxazosin 2 Mg Tab) 2 mg PO BEDTIME [facility] Enteral Nutritional Formula (Ensure Clear 200 Ml Can) 237 ml PO BID [facility] Stop: 10/23/20 21:01 Last Admin: 09/25/20 09:00 Dose: Not Given Documented by: Heparin Sodium (Porcine) (Heparin 5000 Unit/Ml 1 Ml Vial) 5,000 unit SQ Q8HR [facility] Stop: 10/21/20 01:01 Last Admin: 09/24/20 09:00 Dose: Not Given Documented by: Heparin Sodium (Porcine) (Heparin 1,000 Unit/Ml Vial) 6,000 unit IV EVERY HD PRN PRN Reason: AFTER EACH Stop: 10/21/20 21:32 Last Admin: 09/24/20 18:10 Dose: 6,000 unit Documented by: Albumin Human (Albumin 25%) 50 mls @ 100 mls/hr IV EVERY HD [facility] Stop: 10/21/20 22:01 Piperacillin/Tazobactam/Sod Chloride (Zosyn 2.25 Gm/50 Ml Ivpb) 2.25 gm in 50 mls @ 100 mls/hr IVPB Q12HR [facility]; Protocol Stop: 10/23/20 12:01 Last Admin: 09/25/20 09:00 Dose: 50 mls Documented by: Mannitol (Mannitol 25% 12.5 Gm/50 Ml Vial) 12.5 gm IV EVERY HD PRN PRN Reason: Titrate to SBP (MUST DEFINE) Stop: 10/21/20 21:32 Morphine Sulfate (Morphine 2 Mg/Ml Syr) 2 mg IV Q6H PRN PRN Reason: Pain scale 5-7 (Moderate) Stop: 10/20/20 20:10 Last Admin: 09/25/20 15:57 Dose: 2 mg Documented by: Ondansetron HCl (Ondansetron 4 Mg/2 Ml Vial) 4 mg IV Q8H PRN PRN Reason: NAUSEA / VOMITING Stop: 10/20/20 20:10 Last Admin: 09/21/20 22:05 Dose: 4 mg Documented by: Pantoprazole Sodium (Pantoprazole 40 Mg Inj) 40 mg IVP Q12HR [facility]; Protocol Stop: 10/20/20 21:01 Last Admin: 09/25/20 09:49 Dose: 40 mg Documented by: Promethazine HCl (Promethazine Inj 25 Mg/Ml Amp) 25 mg IV Q8H PRN PRN Reason: NAUSEA / VOMITING Sodium Chloride (Flush Normal Saline 10 Ml) 10 ml IV BID [facility] Stop: 10/20/20 21:01 Last Admin: 09/25/20 09:51 Dose: 10 ml Documented by: Sodium Chloride (Flush Normal Saline 10 Ml) 10 ml IV BID [facility] Stop: 10/20/20 21:01 Last Admin: 09/25/20 09:00 Dose: Not Given Documented by: Sodium Chloride (Sodium Chloride 0.9% 10ml Inj) 10 ml IV UD PRN PRN Reason: Diluant Stop: 10/20/20 20:13 Last Admin: 09/21/20 22:06 Dose: 10 ml Documented by: Vitamin B Complex/Vit C/Folic Acid (Multivitamins,Therapeut 1 Tab) 1 tab PO DAILY [facility] Stop: 10/24/20 09:01 Last Admin: 09/25/20 09:51 Dose: 1 tab Documented by: Assessment/ Plan: Nephrology No cardiac or pulmonary complaints. No CP or SOB. Reports persistent nausea with vomiting. No acute events overnight. Vitals, medications, blood work and imaging reviewed in the chart. General: Cooperative, Mild distress HEENT: Atraumatic Neck: Supple Respiratory: Clear to auscultation bilaterally Cardiovascular: No edema, Regular rate/rhythm Gastrointestinal: Non-distended, Tenderness Musculoskeletal: No clubbing, No contractures Integumentary: No rashes, No cyanosis Neurological: Abnormal speech Blood work reviewed in the chart. Imagings Data: EXAM DESCRIPTION: RAD - Chest Single View - 09/22/2020 9:14 am CLINICAL HISTORY: elevated temp Chest pain. COMPARISON: Chest Single View dated 09/20/2020; Chest Single View dated 09/14/2020; Chest Single View dated 08/26/2020; Chest Single View dated 07/24/2020 FINDINGS: Portable technique limits examination quality. Mild bilateral interstitial lung opacities appear slightly worse relative to comparative study. The heart is mildly enlarged in size. Right-sided venous catheter tip in the right atrium. IMPRESSION: Mild worsening in bilateral pulmonary opacities, greater on the left, seen since prior study. EXAM DESCRIPTION: RAD - Abdomen 1 View (KUB) - 09/22/2020 9:14 am CLINICAL HISTORY: SBO Pain COMPARISON: Abdomen Pelvis Wo Contrast dated 09/20/2020 FINDINGS: Mildly prominent small bowel loops in the central abdomen are noted. No suspicious calcifications. No significant bony findings. Contrast is seen in the colon. IMPRESSION: Several mildly prominent small bowel loops in the central abdomen are noted. Contrast is seen in the colon. An ileus is favored over a mechanical obstruction. Conclusions/Impression: A/ ESRD on HD Hyperkalemia Hypercalcemia HTN with CKD/ CHF Diastolic CHF, chronic Moderate malnutrition Anemia in CKD MIAH/ Secondary HyperPTH BPH with LUTS Enteritis GI hemorrhage Dysphagia Asp PNA P/ Continue current POC and Medications Acute HD tomorrow. Continue Retacrit. Continue Zosyn. Puree diet. Refuses a PEG. No NSAIDs. AM labs. Daily weight. Case reviewed with Dr. Muniz.
[2020-09-25] MEDS: DOXAZOSIN 2 MG TAB PO SCH (21:37)
[2020-09-26 06:53] LABS: Absolute Lymphocytes (CBC) 1.5 K/uL (0.7-4.9); Hematocrit 24.7 % (39.6-49.0); Lymphocytes % 12.7 % (15.3-44.8); MPV 7.9 fL (7.6-11.3); RBC Red Blood Cell Count 2.78 M/uL (4.33-5.43)
[2020-09-26 07:27] LABS: Albumin 2.1 g/dL (3.4-5.0); Bilirubin Total 0.5 mg/dL (0.2-1.0); Potassium 3.7 mmol/L (3.5-5.1); Protein, Total 5.4 g/dL (6.4-8.2)
[2020-09-26] MEDS: DOCUSATE NA 100 MG CAP PO SCH ×2 (08:10→20:21)
[2020-09-26] MEDS: MULTIVITAMINS,THERAPEUT 1 TAB PO SCH (08:11)
[2020-09-26] MEDS: PANTOPRAZOLE 40 MG INJ IVP SCH ×2 (08:11→20:21)
[2020-09-26] MEDS: PIPER/TAZO/NS 2.25gm 2.25 GM/50 ML BAG IVPB SCH ×2 (08:12→20:24)
[2020-09-26] MEDS: ENSURE CLEAR 200 ML CAN PO SCH ×2 (08:12→20:24)
[2020-09-26] MEDS: MORPHINE 2 MG/ML SYR IV PRN ×3 (08:12→20:22)
--- NOTE | 2020-09-26 10:20 | P.PN ---
Subjective Date of Service: 09/26/20 Chief Complaint: Dose of vomiting and abdominal pain Subjective: Improving (alert/oriented, feeling much better today, tolerating pureed/thickened diet. reports chronic pain, denies SOB, no abdominal pain) Review of Systems 10-point ROS is otherwise unremarkable Physical Examination - Vital Signs Temperature: 98.6 F Blood Pressure: 168/99 Pulse: 81 Respirations: 16 Pulse Ox (%): 95 - Studies Medications List Reviewed: Yes Assessment & Plan Physician Review Additional Text: Physical Exam: Gen: NAD, AAOx3, cachectic HEENT: sclera anicteric CV: RRR, no edema Pulm: diminished at bilateral bases, breathing comfortably on RA Abd: soft, NTND Ext: no rash Problem List Enteritis/ Gastritis Acute metabolic encephalopathy secondary to Aspiration pneumonia, improving ESRD on HD h/o GI Bleed Anemia of chronic disease -initially concern for pSBO vs enteritis, General Surgery was consulted and agreed with medical management. -the patient no longer having abdominal pain. has had BM, nonbloody -hemoglobin was trending down, likely Dilutional, and due to chronic disease/ ESRD. Patient was recently here for hematochezia /gastritis. given 1uPRBC on 09/24 -on IV flagyl and Cefepime (started 09/22) - ID consulted and patient was switched to Zosyn, repeat CT abdomen/pelvis shows bilateral opacities, worse on the left, concerning for possible aspiration pneumonia -UA concerning for possible UTI as well, however culture without any growth -blood cultures without any growth -swallow eval noted aspiration with thin liquids, continue pureed / thickened liquids -nephrology consulted for HD Dispo: anticipate dc back to [facility] in ~48hrs, patient improving, working ST Time Spent Managing Pts Care (In Minutes): 35
[2020-09-26 10:36] LABS: Blood Morphology Comment NOT SEEN (NOT SEEN); Platelet Estimate DECR
[2020-09-26] MEDS: carvediloL 25 MG TAB PO SCH ×2 (14:31→20:22)
--- NOTE | 2020-09-26 20:04 | PN ---
Date of Progress Note: 09/26/2020 Subjective: The patient is seen and examined. Complaining of pain in his hands, but otherwise, no o ther issues. Objective: Vital Signs: Reviewed and are stable. The patient had dialysis today. General: He appears in [id number] distress from the pain. HEENT: Atraumatic head. Lungs: Clear. Extremities: Showed no evidence of edema. Laboratory Data: Has been reviewed in detail. His CBC showing stable hemoglobin, hematocrit, and WB C count is improving to 12,000. Current Medications: Have been reviewed in detail. Impression: 1.End-stage renal disease, on dialysis. 2.Anemia secondary to end-stage renal disease. The patient's hemoglobin is stable. 3.Metabolic encephalopathy secondary to aspiration pneumonia. 4.History of gastrointestinal bleed, currently stable. 5.Enteritis, gastritis, stable. Plan: The patient is overall doing okay at this time. His metabolic encephalopathy seems to be impr oving. Continue Monday, Monday, Monday dialysis and continue on antibiotics per the primary team. The patient is currently on Zosyn. Follow up on culture reports and monitor closely. BEBE/MODL Voice ID: [id number] Report ID: [id number]
[2020-09-26] MEDS: DOXAZOSIN 2 MG TAB PO SCH (20:21)
[2020-09-27] MEDS: MORPHINE 2 MG/ML SYR IV PRN ×2 (04:36→10:14)
[2020-09-27 05:58] LABS: Absolute Lymphocytes (CBC) 1.9 K/uL (0.7-4.9); Basophils % 1.1 % (0-1.3); Hematocrit 27.8 % (39.6-49.0); Lymphocytes % 13.7 % (15.3-44.8); RBC Red Blood Cell Count 3.09 M/uL (4.33-5.43)
[2020-09-27 06:05] LABS: Albumin 2.1 g/dL (3.4-5.0); Bilirubin Total 0.6 mg/dL (0.2-1.0); Potassium 3.7 mmol/L (3.5-5.1); Protein, Total 5.7 g/dL (6.4-8.2)
[2020-09-27] MEDS: PIPER/TAZO/NS 2.25gm 2.25 GM/50 ML BAG IVPB SCH ×2 (08:38→21:02)
[2020-09-27] MEDS: carvediloL 25 MG TAB PO SCH ×2 (08:39→21:02)
[2020-09-27] MEDS: MULTIVITAMINS,THERAPEUT 1 TAB PO SCH (08:39)
[2020-09-27] MEDS: ENSURE CLEAR 200 ML CAN PO SCH ×2 (08:40→21:00)
[2020-09-27] MEDS: DOCUSATE NA 100 MG CAP PO SCH ×2 (08:40→21:02)
[2020-09-27] MEDS: PANTOPRAZOLE 40 MG INJ IVP SCH ×2 (10:14→21:02)
--- NOTE | 2020-09-27 10:38 | P.PN ---
Subjective Date of Service: 09/27/20 Chief Complaint: Dose of vomiting and abdominal pain Subjective: Improving (feeling better, no complaints of breathing, appetite improving, reports no choking with pureed / thickened foods. No abdominal pain. Only reporting chronic bilateral hand pain) Review of Systems 10-point ROS is otherwise unremarkable Physical Examination - Vital Signs Temperature: 97.6 F Blood Pressure: 153/86 Pulse: 80 Respirations: 15 Pulse Ox (%): 95 - Studies Medications List Reviewed: Yes Assessment & Plan Physician Review Additional Text: Physical Exam: Gen: NAD,cachectic HEENT: sclera anicteric CV: regular rate & rhythm, no edema Pulm: slight crackle at bases, diminished at bilateral bases, breathing comfortably on RA Abd: soft, NTND Ext: no rash Problem List Enteritis/ Gastritis Acute metabolic encephalopathy secondary to Aspiration pneumonia, improving ESRD on HD h/o GI Bleed Anemia of chronic disease -initially concern for pSBO vs enteritis, General Surgery was consulted and agreed with medical management. -abdominal pain improved, had nonbloody BM, but then began to be more lethargic and with difficulty breathing -hgb trended down, likely Dilutional, and due to chronic disease/ ESRD. Patient was recently here for hematochezia /gastritis. given 1uPRBC on 09/24, Hgb has been stable, no evidence of bleeding -on IV flagyl and Cefepime (started 09/22) - ID consulted and patient was switched to Zosyn, repeat CT abdomen/pelvis shows bilateral opacities, worse on the left, concerning for possible aspiration pneumonia -UA concerning for possible UTI as well, however culture without any growth -blood cultures without any growth -swallow eval noted aspiration with thin liquids, continue pureed / thickened liquids -overall improving, starting to stabilize, leukocytosis remains elevated, Procal was improving -will repeat CXR today -nephrology consulted for HD Dispo: anticipate dc back to [facility] in ~24-48hrs, patient improving, working with ST, Time Spent Managing Pts Care (In Minutes): 35
--- NOTE | 2020-09-27 11:56 | RAD REPORT ---
EXAM DESCRIPTION: RAD - Chest Single View - 09/27/2020 6:23 am CLINICAL HISTORY: pneumonia Chest pain. COMPARISON: Abdomen 1 View (KUB) dated 09/22/2020; Chest Single View dated 09/22/2020; Chest Single View dated 09/20/2020; Chest Single View dated 09/14/2020; Abdomen Pelvis Wo Contrast dated 09/23/2020; [facility] st Single View dated 07/20/2020 FINDINGS: Portable technique limits examination quality. Interstitial lung opacities are again seen, slightly worse than on the prior study. Nodular opacity i s present in the right upper lobe, appearing distinct from the interstitial process in more conspicuo us relative to comparative studies. . The heart is normal in size. Left-sided venous catheter tip in the right atrium. IMPRESSION: Mild worsening in bilateral interstitial pulmonary opacities since comparative study, lisa schumacher indicating mild worsening pneumonia. Nodular focus in the right upper lobe appears more conspicuous than on prior studies. Recommend [facility] CT chest for further evaluation.
[2020-09-27] MEDS: TRAMADOL HCL 50 MG TAB PO PRN (17:10)
[2020-09-27] MEDS: DOXAZOSIN 2 MG TAB PO SCH (21:02)
[2020-09-28 05:35] LABS: Basophils % 0.5 % (0-1.3); Lymphocytes % 14.2 % (15.3-44.8); RBC Red Blood Cell Count 3.13 M/uL (4.33-5.43)
[2020-09-28 06:04] LABS: Albumin 2.1 g/dL (3.4-5.0); Bilirubin Total 0.6 mg/dL (0.2-1.0); Magnesium 2.1 mg/dL (1.8-2.4); Phosphorus 3.9 mg/dL (2.5-4.9); Potassium 3.9 mmol/L (3.5-5.1); Protein, Total 5.7 g/dL (6.4-8.2)
[2020-09-28] MEDS: TRAMADOL HCL 50 MG TAB PO PRN ×2 (06:43→16:36)
[2020-09-28] MEDS: DOCUSATE NA 100 MG CAP PO SCH ×3 (09:00→20:41)
[2020-09-28] MEDS: MULTIVITAMINS,THERAPEUT 1 TAB PO SCH ×2 (09:00→10:42)
[2020-09-28] MEDS: carvediloL 25 MG TAB PO SCH ×3 (09:00→20:41)
[2020-09-28] MEDS: ENSURE CLEAR 200 ML CAN PO SCH ×2 (10:42→20:41)
[2020-09-28] MEDS: PANTOPRAZOLE 40 MG INJ IVP SCH ×2 (10:42→20:41)
[2020-09-28] MEDS: PIPER/TAZO/NS 2.25gm 2.25 GM/50 ML BAG IVPB SCH ×2 (11:33→20:40)
--- NOTE | 2020-09-28 13:00 | P.PN ---
Subjective Date of Service: 09/28/20 Chief Complaint: Dose of vomiting and abdominal pain Subjective: Improving (doing better, breathing better, still with some coughing with eating/drinking. pain of b/l hands) Physical Examination - Vital Signs Temperature: 98.8 F Blood Pressure: 140/74 Pulse: 83 Respirations: 16 Pulse Ox (%): 94 - Studies Medications List Reviewed: Yes Assessment & Plan Physician Review Additional Text: Physical Exam: Gen: NAD, cachectic HEENT: sclera anicteric CV: regular rate & rhythm, no edema Pulm: slight crackle at bases, diminished at bilateral bases, breathing comfortably on RA Abd: soft, NTND Ext: no rash, no lesions Problem List Enteritis/ Gastritis Acute metabolic encephalopathy secondary to Aspiration pneumonia, improving ESRD on HD h/o GI Bleed Anemia of chronic disease -initially concern for pSBO vs enteritis, General Surgery was consulted and agreed with medical management. -abdominal pain improved, had nonbloody BM, but then began to be more lethargic and with difficulty breathing -hgb trended down, likely Dilutional, and due to chronic disease/ ESRD. Patient was recently here for hematochezia /gastritis. given 1uPRBC on 09/24, Hgb has been stable, no evidence of bleeding -on IV flagyl and Cefepime (started 09/22) - ID consulted and patient was switched to Zosyn, repeat CT abdomen/pelvis shows bilateral opacities, worse on the left, concerning for possible aspiration pneumonia -UA concerning for possible UTI as well, however culture without any growth -blood cultures without any growth -swallow eval noted aspiration with thin liquids, continue pureed / thickened liquids -clinically improvoing, however leukocytosis remains elevated, check procalcitonin today; will discuss with ID -nephrology consulted for HD Dispo: anticipate dc back to [facility] tomorrow, pending improvement of leukocytosis. to get HD today Time Spent Managing Pts Care (In Minutes): 35
[2020-09-28] MEDS: ACETAMINOPHEN 500 MG TAB PO PRN (16:02)
[2020-09-28] MEDS: EPOETIN ALFA-EPBX 4,000 UNIT/ML VIAL SQ SCH (16:05)
[2020-09-28] MEDS: ACETAMINOPHEN 650MG/RECT SUPP PR PRN (16:15)
[2020-09-28] MEDS: ONDANSETRON 4 MG/2 ML VIAL IV PRN (16:40)
--- NOTE | 2020-09-28 17:48 | PN ---
Subjective: The patient is lying in bed. Complains of cough and sputum production with greenish yel low in color. No other complaints at this time. Unable to eat much at this time. Objective: Vital Signs: Temperature 98.8, pulse 83, respirations 16, blood pressure 140/74. Lungs: Basal crackles. Heart: S1, S2. Regular. Abdomen: Soft, nontender. Bowel sounds present. Extremities: No edema. Muscle wasting noted. Laboratory Data: Shows WBC 14.3, hemoglobin 9.3, platelets are 71. Chemistry shows sodium 140, pota ssium 3.9, chloride 104, bicarb 25, BUN 29, creatinine is 5.3, albumin is 2.1. Chest x-ray is showin g the patient has mild worsening in bilateral interstitial pulmonary opacities, nodular focus in the right upper lobe appears more conspicuous than prior studies. Recommend followup CT chest. CT abdom en and pelvis done on September 23 shows moderate to marked alveolar opacity within the left lower lo be, may indicate aspiration pneumonia and gastroesophageal reflux. No abscess noted. Micro data, bl ood cultures are negative for 5 days. Assessment And Plan: A 55-year-old male with bilateral infiltrates, more on the left than right and right upper lobe nodular lesion. Recommend to get a CT chest, if not in hospital, as outpatient. Al so, consider getting a bronch for possible needle biopsy of the nodule in the right upper lobe. Leuk ocytosis, anemia, thrombocytopenia, moderate malnourishment. The patient to continue nutritional sup plements. Antibiotic to be continued. The patient is currently getting Zosyn. No other recommendation at this time. We will follow the patient closely. Can be sw itched to if needed. NF/MODL Voice ID: [id number] Report ID: [id number]
[2020-09-28] MEDS: DOXAZOSIN 2 MG TAB PO SCH (20:41)
--- NOTE | 2020-09-28 21:30 | P.PN ---
Date of Service: 09/28/20 Vital Signs Temp Pulse Resp BP Pulse Ox 98.2 F 86 16 178/82 H 92 09/28/20 18:28 09/28/20 16:00 09/28/20 16:00 09/28/20 16:00 09/28/20 16:00 Medications Acetaminophen (Acetaminophen 500 Mg Tab) 500 mg PO Q6H PRN PRN Reason: TEMP > 100' F Stop: 10/20/20 20:10 Last Admin: 09/23/20 08:29 Dose: 500 mg Documented by: Acetaminophen (Acetaminophen 650mg/Rect Supp) 650 mg DC Q4H PRN PRN Reason: TEMP > 100' F Stop: 10/22/20 08:21 Last Admin: 09/28/20 16:15 Dose: 650 mg Documented by: Carvedilol (Carvedilol 25 Mg Tab) 25 mg PO BID [facility] Last Admin: 09/28/20 20:41 Dose: 25 mg Documented by: Docusate Sodium (Docusate Na 100 Mg Cap) 100 mg PO BID [facility] Stop: 10/23/20 09:01 Last Admin: 09/28/20 20:41 Dose: 100 mg Documented by: Doxazosin Mesylate (Doxazosin 2 Mg Tab) 2 mg PO BEDTIME [facility] Last Admin: 09/28/20 20:41 Dose: 2 mg Documented by: Enteral Nutritional Formula (Ensure Clear 200 Ml Can) 237 ml PO BID [facility] Stop: 10/23/20 21:01 Last Admin: 09/28/20 20:41 Dose: 237 ml Documented by: Heparin Sodium (Porcine) (Heparin 5000 Unit/Ml 1 Ml Vial) 5,000 unit SQ Q8HR [facility] Stop: 10/21/20 01:01 Last Admin: 09/24/20 09:00 Dose: Not Given Documented by: Albumin Human (Albumin 25%) 50 mls @ 100 mls/hr IV EVERY HD [facility] Stop: 10/21/20 22:01 Piperacillin/Tazobactam/Sod Chloride (Zosyn 2.25 Gm/50 Ml Ivpb) 2.25 gm in 50 mls @ 100 mls/hr IVPB Q12HR [facility]; Protocol Stop: 10/23/20 12:01 Last Admin: 09/28/20 20:40 Dose: 50 mls Documented by: Mannitol (Mannitol 25% 12.5 Gm/50 Ml Vial) 12.5 gm IV EVERY HD PRN PRN Reason: Titrate to SBP (MUST DEFINE) Stop: 10/21/20 21:32 Ondansetron HCl (Ondansetron 4 Mg/2 Ml Vial) 4 mg IV Q8H PRN PRN Reason: NAUSEA / VOMITING Stop: 10/20/20 20:10 Last Admin: 09/28/20 16:40 Dose: 4 mg Documented by: Pantoprazole Sodium (Pantoprazole 40 Mg Inj) 40 mg IVP Q12HR [facility]; Protocol Stop: 10/20/20 21:01 Last Admin: 09/28/20 20:41 Dose: 40 mg Documented by: Promethazine HCl (Promethazine Inj 25 Mg/Ml Amp) 25 mg IV Q8H PRN PRN Reason: NAUSEA / VOMITING Sodium Chloride (Flush Normal Saline 10 Ml) 10 ml IV BID [facility] Stop: 10/20/20 21:01 Last Admin: 09/28/20 20:41 Dose: 10 ml Documented by: Sodium Chloride (Flush Normal Saline 10 Ml) 10 ml IV BID [facility] Stop: 10/20/20 21:01 Last Admin: 09/28/20 20:41 Dose: 10 ml Documented by: Sodium Chloride (Sodium Chloride 0.9% 10ml Inj) 10 ml IV UD PRN PRN Reason: Diluant Stop: 10/20/20 20:13 Last Admin: 09/21/20 22:06 Dose: 10 ml Documented by: Tramadol HCl (Tramadol Hcl 50 Mg Tab) 50 mg PO Q6H PRN PRN Reason: Pain scale 5-7 (Moderate) Last Admin: 09/28/20 16:36 Dose: 50 mg Documented by: Vitamin B Complex/Vit C/Folic Acid (Multivitamins,Therapeut 1 Tab) 1 tab PO DAILY [facility] Stop: 10/24/20 09:01 Last Admin: 09/28/20 09:00 Dose: Not Given Documented by: Assessment/ Plan: Nephrology No cardiac or pulmonary complaints. No CP or SOB. Reports malaise and weakness. States that he is not doing well. No acute events overnight. Vitals, medications, blood work and imaging reviewed in the chart. General: Cooperative, Mild distress HEENT: Atraumatic Neck: Supple Respiratory: Clear to auscultation bilaterally Cardiovascular: No edema, Regular rate/rhythm Gastrointestinal: Non-distended, Tenderness Musculoskeletal: No clubbing, No contractures Integumentary: No rashes, No cyanosis Neurological: Abnormal speech Blood work reviewed in the chart. Imagings Data: EXAM DESCRIPTION: RAD - Chest Single View - 09/22/2020 9:14 am CLINICAL HISTORY: elevated temp Chest pain. COMPARISON: Chest Single View dated 09/20/2020; Chest Single View dated 09/14/2020; Chest Single View dated 08/26/2020; Chest Single View dated 07/24/2020 FINDINGS: Portable technique limits examination quality. Mild bilateral interstitial lung opacities appear slightly worse relative to comparative study. The heart is mildly enlarged in size. Right-sided venous catheter tip in the right atrium. IMPRESSION: Mild worsening in bilateral pulmonary opacities, greater on the left, seen since prior study. EXAM DESCRIPTION: RAD - Abdomen 1 View (KUB) - 09/22/2020 9:14 am CLINICAL HISTORY: SBO Pain COMPARISON: Abdomen Pelvis Wo Contrast dated 09/20/2020 FINDINGS: Mildly prominent small bowel loops in the central abdomen are noted. No suspicious calcifications. No significant bony findings. Contrast is seen in the colon. IMPRESSION: Several mildly prominent small bowel loops in the central abdomen are noted. Contrast is seen in the colon. An ileus is favored over a mechanical obstruction. Conclusions/Impression: A/ ESRD on HD Hyperkalemia Hypercalcemia HTN with CKD/ CHF Diastolic CHF, chronic Moderate malnutrition Anemia in CKD MIAH/ Secondary HyperPTH BPH with LUTS Enteritis GI hemorrhage Dysphagia Asp PNA P/ Continue current POC and Medications Acute HD tomorrow. Continue Retacrit. Continue Zosyn. Puree diet. Refuses a PEG. No NSAIDs. AM labs. Daily weight.
[2020-09-29 05:42] LABS: Absolute Lymphocytes (CBC) 2.2 K/uL (0.7-4.9); Basophils % 0.5 % (0-1.3); Lymphocytes % 12.9 % (15.3-44.8); MPV 8.4 fL (7.6-11.3); RBC Red Blood Cell Count 2.93 M/uL (4.33-5.43)
[2020-09-29 06:04] LABS: Albumin 2.1 g/dL (3.4-5.0); Phosphorus 4.9 mg/dL (2.5-4.9); Potassium 4.1 mmol/L (3.5-5.1)
[2020-09-29] MEDS: TRAMADOL HCL 50 MG TAB PO PRN (07:23)
[2020-09-29] MEDS: carvediloL 25 MG TAB PO SCH ×2 (08:27→21:31)
[2020-09-29] MEDS: MULTIVITAMINS,THERAPEUT 1 TAB PO SCH (08:27)
[2020-09-29] MEDS: PANTOPRAZOLE 40 MG INJ IVP SCH ×2 (08:28→21:29)
[2020-09-29] MEDS: DOCUSATE NA 100 MG CAP PO SCH ×2 (08:28→21:38)
[2020-09-29] MEDS: PIPER/TAZO/NS 2.25gm 2.25 GM/50 ML BAG IVPB SCH ×2 (08:29→21:24)
[2020-09-29] MEDS: ONDANSETRON 4 MG/2 ML VIAL IV PRN ×2 (08:29→17:18)
[2020-09-29] MEDS: ENSURE CLEAR 200 ML CAN PO SCH (08:30)
[2020-09-29 09:13] LABS: Blood Morphology Comment NOT SEEN (NOT SEEN); Platelet Estimate DECR; Platelets, Giant FEW
--- NOTE | 2020-09-29 16:26 | P.PN ---
Subjective Date of Service: 09/29/20 Chief Complaint: Dose of vomiting and abdominal pain Patient complaining of nausea and vomiting. Nursing staff reports he has vomited multiple times. No hematemesis. No fever. Physical Examination - Vital Signs Temperature: 98.1 F Blood Pressure: 145/82 Pulse: 75 Respirations: 22 Pulse Ox (%): 95 - Physical Exam General: Oriented x3, Cachectic, Disheveled HEENT: Mucous membr. moist/pink, EOMI Neck: Supple, JVD not distended Respiratory: Crackles/rales (Mild bibasilar crackles) Cardiovascular: No edema, Regular rate/rhythm, Normal S1 S2 Gastrointestinal: Soft and benign, Non-distended, No tenderness Musculoskeletal: No swelling, No tenderness Integumentary: No rashes, No erythema Neurological: Other (No focal motor deficit.) - Studies Medications List Reviewed: Yes Assessment And Plan - Current Problems (Diagnosis) (1) Enteritis Current Visit: Yes Status: Acute (2) Gastritis Current Visit: Yes Status: Acute (3) End-stage renal disease on hemodialysis Current Visit: No Status: Acute (4) History of GI bleed Current Visit: Yes Status: Acute (5) Anemia Current Visit: No Status: Acute (6) Aspiration pneumonia Current Visit: Yes Status: Acute Physician Review Additional Text: Physical Exam: Gen: NAD, cachectic HEENT: sclera anicteric CV: regular rate & rhythm, no edema Pulm: slight crackle at bases, diminished at bilateral bases, breathing comfortably on RA Abd: soft, NTND Ext: no rash, no lesions Problem List Enteritis/ Gastritis Acute metabolic encephalopathy secondary to Aspiration pneumonia, improving ESRD on HD h/o GI Bleed Anemia of chronic disease Aspiration pneumonia -initially concern for pSBO vs enteritis, General Surgery was consulted and agreed with medical management. -no more abdominal pain. Patient continued to vomit intermittently. -I suspect the nausea and vomiting secondary to gastritis. -continue IV Protonix for gastritis. -hemoglobin is stable and due to chronic disease/ ESRD. Patient was recently here for hematochezia /gastritis. given 1uPRBC on 09/24, No evidence of bleeding -Repeat CT abdomen/pelvis shows bilateral opacities, worse on the left, concerning for possible aspiration. Continue IV Zosyn for aspiration pneumonia. pneumonia -UA concerning for possible UTI as well, however culture without any growth -blood cultures without any growth -swallow eval noted aspiration with thin liquids, continue pureed / thickened liquids -clinically improvoing, however leukocytosis remains elevated. -continue management as inpatient -nephrology is following for HD
--- NOTE | 2020-09-29 17:16 | P.PN ---
Subjective Date of Service: 09/29/20 Chief Complaint: Dose of vomiting and abdominal pain Patient seen and examined at bedside. Still complains of nausea and vomiting and is stating he is unable to keep food/pills down. Review of Systems 10-point ROS is otherwise unremarkable Physical Examination - Vital Signs Temperature: 98.1 F Blood Pressure: 145/82 Pulse: 75 Respirations: 22 Pulse Ox (%): 95 - Physical Exam General: Alert, In no apparent distress, Oriented x3, Cachectic HEENT: Atraumatic, Normocephalic Neck: Supple, 2+ carotid pulse no bruit Respiratory: Crackles/rales Gastrointestinal: Normal bowel sounds, Hypoactive, Other (scar tissue formation from heprin shots ) Integumentary: No rashes, No breakdown Neurological: Normal gait - Studies Medications List Reviewed: Yes Assessment And Plan - Plan Assessment 1. admonimal pain 2. leukocytosis 3. ESRD on HD 4. moderate protein-calorie malnourishment 5. possible lower left lobe aspiration pneumonia Plan 1. CT abdomen with oral contrast showed no abdominal/pelvic abscess and no acute GI pathology 2. most recent CBC shows a WBC of 17. Uptrending from yesterday. Patient currently on zosyn 3. ESRD-continue HD 4. Monitor albumin and prealbumin 5. CT of abdomen and pelvis showed [id number] alveolar opacities within the left lower lobe may indicate aspiration pneumonia on 09/23. CXR showed Mild worsening in bilateral pulmonary opacities, greater on the left, seen since prior study on 09/22. Plan is to continue Zosyn 2.25 g q.12 hours, can be switched to oral once the patient is stabilized. Continue supportive care. Medical management per primary team plan of care discussed with Dr. Menendez.
--- NOTE | 2020-09-29 20:46 | P.PN ---
Date of Service: 09/29/20 Vital Signs Temp Pulse Resp BP Pulse Ox 98.1 F 75 22 H 145/82 H 95 09/29/20 17:16 09/29/20 17:16 09/29/20 17:16 09/29/20 17:16 09/29/20 17:16 Medications Acetaminophen (Acetaminophen 500 Mg Tab) 500 mg PO Q6H PRN PRN Reason: TEMP > 100' F Stop: 10/20/20 20:10 Last Admin: 09/23/20 08:29 Dose: 500 mg Documented by: Acetaminophen (Acetaminophen 650mg/Rect Supp) 650 mg MD Q4H PRN PRN Reason: TEMP > 100' F Stop: 10/22/20 08:21 Last Admin: 09/28/20 16:15 Dose: 650 mg Documented by: Carvedilol (Carvedilol 25 Mg Tab) 25 mg PO BID [facility] Last Admin: 09/29/20 08:27 Dose: 25 mg Documented by: Docusate Sodium (Docusate Na 100 Mg Cap) 100 mg PO BID [facility] Stop: 10/23/20 09:01 Last Admin: 09/29/20 08:28 Dose: 100 mg Documented by: Doxazosin Mesylate (Doxazosin 2 Mg Tab) 2 mg PO BEDTIME [facility] Last Admin: 09/28/20 20:41 Dose: 2 mg Documented by: Enteral Nutritional Formula (Nepro Shake 237 Ml Can) 237 ml PO BID [facility] Heparin Sodium (Porcine) (Heparin 5000 Unit/Ml 1 Ml Vial) 5,000 unit SQ Q8HR [facility] Stop: 10/21/20 01:01 Last Admin: 09/24/20 09:00 Dose: Not Given Documented by: Albumin Human (Albumin 25%) 50 mls @ 100 mls/hr IV EVERY HD [facility] Stop: 10/21/20 22:01 Piperacillin/Tazobactam/Sod Chloride (Zosyn 2.25 Gm/50 Ml Ivpb) 2.25 gm in 50 mls @ 100 mls/hr IVPB Q12HR [facility]; Protocol Stop: 10/23/20 12:01 Last Admin: 09/29/20 08:29 Dose: 50 mls Documented by: Mannitol (Mannitol 25% 12.5 Gm/50 Ml Vial) 12.5 gm IV EVERY HD PRN PRN Reason: Titrate to SBP (MUST DEFINE) Stop: 10/21/20 21:32 Ondansetron HCl (Ondansetron 4 Mg/2 Ml Vial) 4 mg IV Q8H PRN PRN Reason: NAUSEA / VOMITING Stop: 10/20/20 20:10 Last Admin: 09/29/20 17:18 Dose: 4 mg Documented by: Pantoprazole Sodium (Pantoprazole 40 Mg Inj) 40 mg IVP Q12HR [facility]; Protocol Stop: 10/20/20 21:01 Last Admin: 09/29/20 08:28 Dose: 40 mg Documented by: Promethazine HCl (Promethazine Inj 25 Mg/Ml Amp) 25 mg IV Q8H PRN PRN Reason: NAUSEA / VOMITING Sodium Chloride (Flush Normal Saline 10 Ml) 10 ml IV BID [facility] Stop: 10/20/20 21:01 Last Admin: 09/29/20 08:30 Dose: Not Given Documented by: Sodium Chloride (Flush Normal Saline 10 Ml) 10 ml IV BID [facility] Stop: 10/20/20 21:01 Last Admin: 09/29/20 08:30 Dose: 10 ml Documented by: Sodium Chloride (Sodium Chloride 0.9% 10ml Inj) 10 ml IV UD PRN PRN Reason: Diluant Stop: 10/20/20 20:13 Last Admin: 09/21/20 22:06 Dose: 10 ml Documented by: Tramadol HCl (Tramadol Hcl 50 Mg Tab) 50 mg PO Q6H PRN PRN Reason: Pain scale 5-7 (Moderate) Last Admin: 09/29/20 07:23 Dose: 50 mg Documented by: Vitamin B Complex/Vit C/Folic Acid (Multivitamins,Therapeut 1 Tab) 1 tab PO DAILY [facility] Stop: 10/24/20 09:01 Last Admin: 09/29/20 08:27 Dose: 1 tab Documented by: Assessment/ Plan: Nephrology No cardiac or pulmonary complaints. No CP or SOB. Reports malaise and weakness. N/V with anorexia. No acute events overnight. Vitals, medications, blood work and imaging reviewed in the chart. General: Cooperative, Mild distress HEENT: Atraumatic Neck: Supple Respiratory: Clear to auscultation bilaterally Cardiovascular: No edema, Regular rate/rhythm Gastrointestinal: Non-distended, Tenderness Musculoskeletal: No clubbing, No contractures Integumentary: No rashes, No cyanosis Neurological: Abnormal speech Blood work reviewed in the chart. Imagings Data: EXAM DESCRIPTION: RAD - Chest Single View - 09/22/2020 9:14 am CLINICAL HISTORY: elevated temp Chest pain. COMPARISON: Chest Single View dated 09/20/2020; Chest Single View dated 09/14/2020; Chest Single View dated 08/26/2020; Chest Single View dated 07/24/2020 FINDINGS: Portable technique limits examination quality. Mild bilateral interstitial lung opacities appear slightly worse relative to comparative study. The heart is mildly enlarged in size. Right-sided venous c atheter tip in the right atrium. IMPRESSION: Mild worsening in bilateral pulmonary opacities, greater on the left, seen since prior study. EXAM DESCRIPTION: RAD - Abdomen 1 View (KUB) - 09/22/2020 9:14 am CLINICAL HISTORY: SBO Pain COMPARISON: Abdomen Pelvis Wo Contrast dated 09/20/2020 FINDINGS: Mildly prominent small bowel loops in the central abdomen are noted. No suspicious calcifications. No significant bony findings. Contrast is seen in the colon. IMPRESSION: Several mildly prominent small bowel loops in the central abdomen are noted. Contrast is seen in the colon. An ileus is favored over a mechanical obstruction. Conclusions/Impression: A/ ESRD on HD Hyperkalemia Hypercalcemia HTN with CKD/ CHF Diastolic CHF, chronic Moderate malnutrition Anemia in CKD MIAH/ Secondary HyperPTH BPH with LUTS Enteritis GI hemorrhage Dysphagia Asp PNA P/ Continue current POC and Medications Acute HD today. Continue Retacrit. Continue Zosyn. Puree diet. Refuses a PEG. No NSAIDs. AM labs. Daily weight. Recommend PT as tolerated.
[2020-09-29] MEDS: DOXAZOSIN 2 MG TAB PO SCH (21:30)
[2020-09-29] MEDS: NEPRO SHAKE 237 ML CAN PO SCH (21:38)
[2020-09-29] MEDS ORDERED: DOCUSATE NA/SENNA CONC 1 TAB PO PRN (23:05)
[2020-09-30] MEDS: ONDANSETRON 4 MG/2 ML VIAL IV PRN (03:57)
[2020-09-30 05:44] LABS: Absolute Lymphocytes (CBC) 2.2 K/uL (0.7-4.9); Basophils % 0.6 % (0-1.3); Hematocrit 27.5 % (39.6-49.0); Lymphocytes % 9.8 % (15.3-44.8); MPV 8.1 fL (7.6-11.3); RBC Red Blood Cell Count 3.09 M/uL (4.33-5.43)
[2020-09-30 05:55] LABS: Potassium 3.9 mmol/L (3.5-5.1)
[2020-09-30] MEDS ORDERED: VANCOMYCIN 1 GM/VIAL ONE (06:51)
[2020-09-30] MEDS ORDERED: NA CHLORIDE 0.9% 250 ML ONE (06:53)
[2020-09-30] MEDS ORDERED: VANCOMYCIN/NS 1 gm 1 GM/250 ML BAG IVPB ONE (07:00)
[2020-09-30] MEDS: PANTOPRAZOLE 40 MG INJ IVP SCH ×2 (08:25→21:04)
[2020-09-30] MEDS: carvediloL 25 MG TAB PO SCH ×2 (08:25→21:05)
[2020-09-30] MEDS: MULTIVITAMINS,THERAPEUT 1 TAB PO SCH (08:26)
[2020-09-30] MEDS: NEPRO SHAKE 237 ML CAN PO SCH ×2 (08:26→21:16)
[2020-09-30] MEDS: DOCUSATE NA 100 MG CAP PO SCH ×2 (08:26→21:06)
[2020-09-30] MEDS: PIPER/TAZO/NS 2.25gm 2.25 GM/50 ML BAG IVPB SCH (08:27)
[2020-09-30 08:44] LABS: Blood Morphology Comment NOT SEEN (NOT SEEN); Platelet Estimate DECR; Platelets, Giant FEW
[2020-09-30] MEDS ORDERED: Meropenem 500 MG VIAL IV SCH (09:00)
[2020-09-30] MEDS: Meropenem 500 MG in NA CHLORIDE 0.9% 100 ML IV SCH ×2 (09:00→21:08)
[2020-09-30] MEDS ORDERED: SENOSIDES 8.6 MG TAB PO SCH (09:00)
--- NOTE | 2020-09-30 13:43 | P.PN ---
Subjective Date of Service: 09/30/20 Chief Complaint: Dose of vomiting and abdominal pain Patient reports persistent nausea. He has no hematemesis. He is complaining of pain all over. Leukocytosis trended. Patient denies diarrhea. No fever. Physical Examination - Vital Signs Temperature: 98.0 F Blood Pressure: 143/74 Pulse: 79 Respirations: 15 Pulse Ox (%): 94 - Physical Exam General: Alert, Cachectic, Mild distress HEENT: Normocephalic, Mucous membr. moist/pink Neck: JVD not distended Respiratory: Clear to auscultation bilaterally, Normal air movement Cardiovascular: No edema, Normal pulses, Regular rate/rhythm, Normal S1 S2 Capillary refill: <2 Seconds Gastrointestinal: Normal bowel sounds, Soft and benign, Non-distended, No tenderness Musculoskeletal: No contractures, No erythema Integumentary: No rashes Neurological: Normal strength at 5/5 x4 extr, Other (No focal motor deficit.) - Studies Medications List Reviewed: Yes Assessment And Plan - Current Problems (Diagnosis) (1) Enteritis Current Visit: Yes Status: Acute (2) Gastritis Current Visit: Yes Status: Acute (3) End-stage renal disease on hemodialysis Current Visit: No Status: Acute (4) History of GI bleed Current Visit: Yes Status: Acute (5) Anemia Current Visit: No Status: Acute (6) Aspiration pneumonia Current Visit: Yes Status: Acute - Plan Patient seen by General surgery-Dr. Warren. Medical management recommended. Continue IV Flagyl. Clear liquid diet. Serial abdominal examination. Consulting nephrology for hemodialysis. Continue PPI. Physician Review Additional Text: Physical Exam: Gen: NAD, cachectic HEENT: sclera anicteric CV: regular rate & rhythm, no edema Pulm: slight crackle at bases, diminished at bilateral bases, breathing comfortably on RA Abd: soft, NTND Ext: no rash, no lesions Problem List Enteritis/ Gastritis Acute metabolic encephalopathy secondary to Aspiration pneumonia, improving ESRD on HD h/o GI Bleed Anemia of chronic disease Aspiration pneumonia -initially concern for pSBO vs enteritis, General Surgery was consulted and agreed with medical management. -no more abdominal pain. Patient continued to vomit intermittently. -I suspect the nausea and vomiting secondary to gastritis. -leukocytosis getting worse. -there is a concern leukocytosis a due to infection -continue IV Protonix for gastritis. -hemoglobin is stable and due to chronic disease/ ESRD. Patient was recently here for hematochezia /gastritis. given 1uPRBC on 09/24, No evidence of bleeding -Repeat CT abdomen/pelvis shows bilateral opacities, worse on the left, concerning for possible aspiration. -UA concerning for possible UTI as well, however culture without any growth. -IV Zosyn changed to IV meropenem due to nonresponse. -IV vancomycin also added. -blood cultures without any growth -Repeat blood culture from peripheral and dialysis catheter. -swallow eval noted aspiration with thin liquids, continue pureed / thickened liquids -continue management as inpatient -pain management as needed. -monitor H&H and transfuse p.r.n. -nephrology is following for HD
--- NOTE | 2020-09-30 16:25 | P.PN ---
Subjective Date of Service: 09/30/20 Chief Complaint: Dose of vomiting and abdominal pain Patient seen and examined at bedside. Nausea still present. WBC continues to increase-most recent CBC shows a WBC of 22.8 ZOsyn has been DC and the patient has been started on meropenum and vancomycin. Review of Systems 10-point ROS is otherwise unremarkable Physical Examination - Vital Signs Temperature: 98.0 F Blood Pressure: 143/74 Pulse: 79 Respirations: 15 Pulse Ox (%): 94 - Physical Exam Other Physical/Emotional Findings: General: Alert, In no apparent distress, Oriented x3, Cachectic. HEENT: Atraumatic, Normocephalic. Neck: Supple, 2+ carotid pulse no bruit. Respiratory: Crackles/rales more prominent on left side. Gastrointestinal: Normal bowel sounds, Other (scar tissue formation from heprin shots ). Integumentary: No rashes, No breakdown. Neurological: Normal gait - Studies Medications List Reviewed: Yes Assessment And Plan - Plan Assessment 1. admonimal pain 2. leukocytosis 3. ESRD on HD 4. moderate protein-calorie malnourished 5. possible lower left lobe aspiration pneumonia Plan 1. CT abdomen with oral contrast showed no abdominal/pelvic abscess and no acute GI pathology 2. WBC continues to increase. Zosyn has been DC and the patient has been started on meropenum and vancomycin. CXR has alos been ordered. 3. ESRD-continue HD 4. Monitor albumin and prealbumin 5. CT of abdomen and pelvis showed [id number] alveolar opacities within the left lower lobe may indicate aspiration pneumonia on 09/23. CXR showed Mild worsening in bilateral pulmonary opacities, greater on the left, seen since prior study on 09/22. Plan is to continue Zosyn 2.25 g q.12 hours, can be switched to oral once the patient is stabilized. Continue supportive care. Medical management per primary team plan of care discussed with Dr. Menendez.
[2020-09-30] MEDS: EPOETIN ALFA-EPBX 4,000 UNIT/ML VIAL SQ SCH (17:00)
[2020-09-30] MEDS: FENTANYL CITR 100 MCG/2 ML IV PRN (17:03)
--- NOTE | 2020-09-30 17:51 | RAD REPORT ---
EXAM DESCRIPTION: Aide Single View09/30/2020 5:01 pm CLINICAL HISTORY: Cough COMPARISON: September 27, 2020 FINDINGS: No significant change in a mild right upper lobe opacity. Coleman lungs appear clear of acute infiltrate. Heart is mildly enlarged. Central venous catheter rem ains in place IMPRESSION: No significant change in a mild right upper lobe opacity
[2020-09-30] MEDS: DOXAZOSIN 2 MG TAB PO SCH (21:03)
[2020-09-30] MEDS: TRAMADOL HCL 50 MG TAB PO PRN (21:03)
--- NOTE | 2020-10-01 00:39 | PN ---
Date of Progress Note: 09/30/2020 Subjective: The patient was seen and examined. He continues to have pain in his hands. Laboratory Data: At this time have been reviewed in detail. Continues to have worsening leukocytosi s, stable hemoglobin, hematocrit, and platelet count. Current Medications: Have been reviewed in detail. Impression: 1.End-stage renal disease, on dialysis. 2.Worsening leukocytosis possibly from aspiration pneumonia. 3.Malnutrition. 4.Abdominal pain. CT scan has been done. No acute findings were noted. 5.Anemia secondary to chronic disease. Plan: Overall patient is clinically stable. However, we are concerned about the bilateral pulmonary infiltrates. He is in no acute respiratory distress. Continue to monitor leukocytosis. Antibiotic s have been adjusted and continue dialysis per regular schedule. No acute volume issues or potassium issues noted. VV/MODL Voice ID: [id number] Report ID: [id number]
[2020-10-01] MEDS: ONDANSETRON 4 MG/2 ML VIAL IV PRN (05:27)
[2020-10-01 06:19] LABS: MPV 8.5 fL (7.6-11.3); RBC Red Blood Cell Count 3.32 M/uL (4.33-5.43)
[2020-10-01 07:55] LABS: Blood Morphology Comment NOT SEEN (NOT SEEN); Platelet Estimate DECR
[2020-10-01] MEDS: DOCUSATE NA 100 MG CAP PO SCH ×2 (09:22→20:42)
[2020-10-01] MEDS: carvediloL 25 MG TAB PO SCH ×2 (09:22→20:41)
[2020-10-01] MEDS: MULTIVITAMINS,THERAPEUT 1 TAB PO SCH (09:22)
[2020-10-01] MEDS: PANTOPRAZOLE 40 MG INJ IVP SCH ×2 (09:22→20:48)
[2020-10-01] MEDS: Meropenem 500 MG in NA CHLORIDE 0.9% 100 ML IV SCH ×2 (09:22→20:52)
[2020-10-01] MEDS: NEPRO SHAKE 237 ML CAN PO SCH ×2 (09:23→20:47)
--- NOTE | 2020-10-01 11:53 | P.PN ---
Subjective Date of Service: 10/01/20 Chief Complaint: Dose of vomiting and abdominal pain Patient seen and examined at bedside. Nausea still present. WBC has increased today-now at 24.6 thousand. Leukoytosis workup in progress. Review of Systems 10-point ROS is otherwise unremarkable Physical Examination - Vital Signs Temperature: 98.1 F Blood Pressure: 132/82 Pulse: 81 Respirations: 14 Pulse Ox (%): 94 - Physical Exam Other Physical/Emotional Findings: General: Alert, In no apparent distress, Oriented x3, Cachectic. HEENT: Atraumatic, Normocephalic. Neck: Supple, 2+ carotid pulse no bruit. Respiratory: Crackles/rales more prominent on left side. Gastrointestinal: Normal bowel sounds, Other (scar tissue formation from heprin shots ). Integumentary: No rashes, No breakdown. Neurological: Normal gait - Studies Medications List Reviewed: Yes Assessment And Plan - Plan Assessment 1. admonimal pain 2. leukocytosis 3. ESRD on HD 4. moderate protein-calorie malnourished 5. possible lower left lobe aspiration pneumonia Plan 1. CT abdomen with oral contrast showed no abdominal/pelvic abscess and no acute GI pathology. Repeat CT ordered. 2. WBC continues to increase. Zosyn has been DC and the patient has been started on meropenum and vancomycin.Leukocytosis workup in place. Labs/dignsotic test ordered: repeat blood cultures, procalcitonin level, sed rate, CT abdomen/pelvis with contrast to be done right before dialysis due to patients ESRD 3. ESRD-continue HD 4. 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 Menendez.
[2020-10-01] MEDS: FENTANYL CITR 100 MCG/2 ML IV PRN ×2 (13:01→19:28)
--- NOTE | 2020-10-01 13:39 | P.PN ---
Subjective Date of Service: 10/01/20 Chief Complaint: Dose of vomiting and abdominal pain Patient with worsening leukocytosis. He reports intermittent vomiting, not as frequent as before. No fever. Physical Examination - Vital Signs Temperature: 98.0 F Blood Pressure: 116/67 Pulse: 74 Respirations: 14 Pulse Ox (%): 97 - Physical Exam General: Alert, In no apparent distress, Cachectic HEENT: Mucous membr. moist/pink Neck: Supple, JVD not distended Respiratory: Clear to auscultation bilaterally, Normal air movement Cardiovascular: No edema, Regular rate/rhythm, Normal S1 S2 Gastrointestinal: Normal bowel sounds, Soft and benign, Non-distended, No tenderness Musculoskeletal: No swelling, No tenderness Integumentary: No rashes Neurological: Other (No focal motor deficit.) Other Physical/Emotional Findings: General: Alert, In no apparent distress, Oriented x3, Cachectic. HEENT: Atraumatic, Normocephalic. Neck: Supple, 2+ carotid pulse no bruit. Respiratory: Crackles/rales more prominent on left side. Gastrointestinal: Normal bowel sounds, Other (scar tissue formation from heprin shots ). Integumentary: No rashes, No breakdown. Neurological: Normal gait - Studies Medications List Reviewed: Yes Assessment And Plan - Current Problems (Diagnosis) (1) Enteritis Current Visit: Yes Status: Acute (2) Gastritis Current Visit: Yes Status: Acute (3) End-stage renal disease on hemodialysis Current Visit: No Status: Acute (4) History of GI bleed Current Visit: Yes Status: Acute (5) Anemia Current Visit: No Status: Acute (6) Aspiration pneumonia Current Visit: Yes Status: Acute Physician Review Additional Text: Physical Exam: Gen: NAD, cachectic HEENT: sclera anicteric CV: regular rate & rhythm, no edema Pulm: slight crackle at bases, diminished at bilateral bases, breathing comfortably on RA Abd: soft, NTND Ext: no rash, no lesions Problem List Enteritis/ Gastritis Acute metabolic encephalopathy secondary to Aspiration pneumonia, improving ESRD on HD h/o GI Bleed Anemia of chronic disease Aspiration pneumonia -initially concern for pSBO vs enteritis, General Surgery was consulted and agreed with medical management. -no more abdominal pain. Patient continued to vomit intermittently. -I suspect the nausea and vomiting secondary to gastritis. -leukocytosis continue to get worse -there is a concern leukocytosis due to new infection. -blood cultures: No growth to date. 2 sets of blood cultures are pending. -continue IV Protonix for gastritis. -hemoglobin is stable and due to chronic disease/ ESRD. Patient was recently here for hematochezia /gastritis. given 1uPRBC on 09/24, No evidence of bleeding -Repeat CT abdomen/pelvis shows bilateral opacities, worse on the left, concerning for possible aspiration. -chest x-ray yesterday: No change in infiltrate. -UA concerning for possible UTI as well, however culture without any growth. -IV meropenem due to nonresponse. -IV vancomycin with dialysis. Pharmacy to dose antibiotics. -swallow eval noted aspiration with thin liquids, continue pureed / thickened liquids -pain management as needed. -monitor H&H and transfuse p.r.n. -nephrology is following for HD -may be a candidate for LTAC placement.
[2020-10-01] MEDS ORDERED: VANCOMYCIN 500 MG in NA CHLORIDE 0.9% 100 ML IVPB SCH (14:45)
[2020-10-01] MEDS ORDERED: VANCOMYCIN 1 GM in NA CHLORIDE 0.9% 500 ML IVPB SCH (15:00)
--- NOTE | 2020-10-01 16:03 | RAD REPORT ---
EXAM DESCRIPTION: CT - Abdomen Pelvis W Contrast - 10/01/2020 3:14 pm CLINICAL HISTORY: PAIN COMPARISON: Abdomen Pelvis Wo Contrast dated 09/23/2020; Barium Swallow Modified dated 09/24/2020; [facility] st Single View dated 09/20/2020; Abdomen 1 View (KUB) dated 09/22/2020; Abdomen Pelvis Wo Contrast king ed 09/20/2020 TECHNIQUE: Biphasic, helical CT imaging of the abdomen and pelvis was performed following 100 ml non -ionic IV contrast. No oral contrast administered. All CT scans are performed using dose optimization technique as appropriate and may include automated exposure control or mA/KV adjustment according to patient size. FINDINGS: Bilateral lung base interstitial opacification is present. Patchy left base airspace opaci fication present. Left lung base findings have improved from prior imaging. No progressive finding. N o pericardial thickening or effusion. The liver, spleen, and pancreas show no suspicious findings. Gallbladder is contracted. No biliary tr ee dilatation. Both kidneys are small. Renal function is symmetric. No hydronephrosis or suspicious renal parenchyma l mass. No obstructing or nonobstructing calculi. No bladder abnormalities. No adrenal abnormalities. Hiatal hernia is present. Circumferential wall thickening of the distal thoracic esophagus is present . A discrete mass is not identified. There is fluid in the distal esophagus likely reflux. Stomach is distended by a large volume of fluid. No gastric wall thickening or mass. Antrum is contracted which limits assessment of antritis. Bulb is distended by fluid as well. A post bulb stricture or mass is not identified. Multiple distended to borderline dilated small bowel loops are present fluid-filled a nd showing mild thickening of the hermosillo. This is involving almost all loops of small bowel. A focal m ass or transition point is not identified. This extends to the terminal ileum. No appendicitis findin gs. Colon is not dilated. There is contrast throughout the large intestine. This is believed to be re tained PO contrast from prior diagnostic study that may date back as far as September 20. No free air or pneumatosis. No abnormal free fluid in the peritoneal or retroperitoneal spaces. No m ass or bulky lymphadenopathy. No large hernia defect seen. No acute vascular finding. Degenerative bony changes are present. No new bone finding identified. There are some areas of mottle d attenuation in the vertebrae and pelvis. Significant bone loss changes are present in the anterior column of the left acetabulum. IMPRESSION: Fluid distended stomach and multiple distended to borderline dilated fluid-filled small bowel loops. Ileus and/ or enteritis is favored. Patient may have an enteritis related gastro paresi s. Contrast within the colon would indicate no small bowel obstruction. The long duration of contrast re tention would indicate overall significant diminishment in bowel peristalsis. Patient has mottled attenuation of the bony structures more pronounced than typically seen for age. M ultiple myeloma or other neoplastic process cannot be excluded. Metabolic bone loss is possible. Jaycee elation is needed with history not available for this examination.
[2020-10-01] MEDS: DOXAZOSIN 2 MG TAB PO SCH (20:42)
--- NOTE | 2020-10-01 21:37 | P.PN ---
Date of Service: 10/01/20 Vital Signs Temp Pulse Resp BP Pulse Ox 98.0 F 74 14 116/74 97 10/01/20 16:00 10/01/20 20:42 10/01/20 19:58 10/01/20 20:42 10/01/20 19:58 Medications Acetaminophen (Acetaminophen 500 Mg Tab) 500 mg PO Q6H PRN PRN Reason: TEMP > 100' F Stop: 10/20/20 20:10 Last Admin: 09/23/20 08:29 Dose: 500 mg Documented by: Acetaminophen (Acetaminophen 650mg/Rect Supp) 650 mg NV Q4H PRN PRN Reason: TEMP > 100' F Stop: 10/22/20 08:21 Last Admin: 09/28/20 16:15 Dose: 650 mg Documented by: Carvedilol (Carvedilol 25 Mg Tab) 25 mg PO BID [facility] [place] Last Admin: 10/01/20 20:41 Dose: 25 mg Documented by: Docusate Sodium (Docusate Na 100 Mg Cap) 100 mg PO BID [facility] [place] Stop: 10/23/20 09:01 Last Admin: 10/01/20 20:42 Dose: 100 mg Documented by: Doxazosin Mesylate (Doxazosin 2 Mg Tab) 2 mg PO BEDTIME [facility] [place] Last Admin: 10/01/20 20:42 Dose: 2 mg Documented by: Enteral Nutritional Formula (Nepro Shake 237 Ml Can) 237 ml PO BID [facility] [place] Last Admin: 10/01/20 20:47 Dose: 237 ml Documented by: Fentanyl Citrate (Fentanyl Citr 100 Mcg/2 Ml) 25 mcg IV Q4H PRN PRN Reason: Pain scale 8-10 (Severe) Last Admin: 10/01/20 19:28 Dose: 25 mcg Documented by: Heparin Sodium (Porcine) (Heparin 5000 Unit/Ml 1 Ml Vial) 5,000 unit SQ Q8HR [facility] [place] Stop: 10/21/20 01:01 Last Admin: 09/24/20 09:00 Dose: Not Given Documented by: Heparin Sodium (Porcine) (Heparin 1,000 Unit/Ml Vial) 6,000 unit IV EVERY HD PRN PRN Reason: Dialysis Last Admin: 10/01/20 17:33 Dose: 6,000 unit Documented by: Albumin Human (Albumin 25%) 50 mls @ 100 mls/hr IV EVERY HD [facility] [place] Stop: 10/21/20 22:01 Meropenem 500 mg/ Sodium (Chloride) 100 mls @ 100 mls/hr IV Q12HR [facility] [place] Last Admin: 10/01/20 20:52 Dose: 100 mls Documented by: Vancomycin HCl 500 mg/ Sodium (Chloride) 100 mls @ 100 mls/hr IVPB AFTER EACH DIALYSIS [facility] [place] Mannitol (Mannitol 25% 12.5 Gm/50 Ml Vial) 12.5 gm IV EVERY HD PRN PRN Reason: Titrate to SBP (MUST DEFINE) Stop: 10/21/20 21:32 Ondansetron HCl (Ondansetron 4 Mg/2 Ml Vial) 4 mg IV Q8H PRN PRN Reason: NAUSEA / VOMITING Stop: 10/20/20 20:10 Last Admin: 10/01/20 05:27 Dose: 4 mg Documented by: Pantoprazole Sodium (Pantoprazole 40 Mg Inj) 40 mg IVP Q12HR [facility] [place]; Protocol Stop: 10/20/20 21:01 Last Admin: 10/01/20 20:48 Dose: 40 mg Documented by: Senna/Docusate Sodium (Docusate Na/Senna Conc 1 Tab) 2 tab PO BEDTIME PRN PRN Reason: CONSTIPATION Last Admin: 09/29/20 23:12 Dose: 2 tab Documented by: Sodium Chloride (Flush Normal Saline 10 Ml) 10 ml IV BID [facility] [place] Stop: 10/20/20 21:01 Last Admin: 10/01/20 20:48 Dose: 10 ml Documented by: Sodium Chloride (Flush Normal Saline 10 Ml) 10 ml IV BID [facility] [place] Stop: 10/20/20 21:01 Last Admin: 10/01/20 20:48 Dose: 10 ml Documented by: Sodium Chloride (Sodium Chloride 0.9% 10ml Inj) 10 ml IV UD PRN PRN Reason: Diluant Stop: 10/20/20 20:13 Last Admin: 09/21/20 22:06 Dose: 10 ml Documented by: Tramadol HCl (Tramadol Hcl 50 Mg Tab) 50 mg PO Q6H PRN PRN Reason: Pain scale 5-7 (Moderate) Last Admin: 09/30/20 21:03 Dose: 50 mg Documented by: Vitamin B Complex/Vit C/Folic Acid (Multivitamins,Therapeut 1 Tab) 1 tab PO DAILY [facility] [place] Stop: 10/24/20 09:01 Last Admin: 10/01/20 09:22 Dose: 1 tab Documented by: Assessment/ Plan: Nephrology No cardiac or pulmonary complaints. No CP or SOB. Persistent malaise and weakness. No acute events overnight. Vitals, medications, blood work and imaging reviewed in the chart. General: Cooperative, Mild distress HEENT: Atraumatic Neck: Supple Respiratory: Clear to auscultation bilaterally Cardiovascular: No edema, Regular rate/rhythm Gastrointestinal: Non-distended, Tenderness Musculoskeletal: No clubbing, No contractures Integumentary: No rashes, No cyanosis Neurological: Abnormal speech Blood work reviewed in the chart. Imagings Data: EXAM DESCRIPTION: RAD - Chest Single View - 09/22/2020 9:14 am CLINICAL HISTORY: elevated temp Chest pain. COMPARISON: Chest Single View dated 09/20/2020; Chest Single View dated 09/14/2020; Chest Single View dated 08/26/2020; Chest Single View dated 07/24/2020 FINDINGS: Portable technique limits examination quality. Mild bilateral interstitial lung opacities appear slightly worse relative to comparative study. The heart is mildly enlarged in size. Right-sided venous catheter tip in the right atrium. IMPRESSION: Mild worsening in bilateral pulmonary opacities, greater on the left, seen since prior study. EXAM DESCRIPTION: RAD - Abdomen 1 View (KUB) - 09/22/2020 9:14 am CLINICAL HISTORY: SBO Pain COMPARISON: Abdomen Pelvis Wo Contrast dated 09/20/2020 FINDINGS: Mildly prominent small bowel loops in the central abdomen are noted. No suspicious calcifications. No significant bony findings. Contrast is seen in the colon. IMPRESSION: Several mildly prominent small bowel loops in the central abdomen are noted. Contrast is seen in the colon. An ileus is favored over a mechanical obstruction. Conclusions/Impression: A/ ESRD on HD Hyperkalemia Hypercalcemia HTN with CKD/ CHF Diastolic CHF, chronic Moderate malnutrition Anemia in CKD MIAH/ Secondary HyperPTH BPH with LUTS Enteritis GI hemorrhage Dysphagia Asp PNA P/ Continue current POC and Medications Seen and examined on HD. Continue Retacrit. Continue Meropenem and Vancomycin. Puree diet. Refuses a PEG. No NSAIDs. AM labs. Daily weight. Recommend PT as tolerated.
[2020-10-02] MEDS: FENTANYL CITR 100 MCG/2 ML IV PRN ×4 (00:35→23:26)
[2020-10-02] MEDS: ONDANSETRON 4 MG/2 ML VIAL IV PRN (00:35)
[2020-10-02 02:05] LABS: Absolute Lymphocytes (CBC) 2.9 K/uL (0.7-4.9); Basophils % 0.4 % (0-1.3); Hematocrit 32.7 % (39.6-49.0); Lymphocytes % 9.1 % (15.3-44.8); RBC Red Blood Cell Count 3.62 M/uL (4.33-5.43)
[2020-10-02 02:17] LABS: Albumin 2.3 g/dL (3.4-5.0); Bilirubin Total 0.5 mg/dL (0.2-1.0); Protein, Total 6.4 g/dL (6.4-8.2)
[2020-10-02] MEDS ORDERED: VANCOMYCIN 500 MG in NA CHLORIDE 0.9% 100 ML IVPB ONE (03:15)
[2020-10-02] MEDS ORDERED: VANCOMYCIN 500 MG in NA CHLORIDE 0.9% 100 ML IVPB SCH (03:15)
[2020-10-02] MEDS ORDERED: NA CHLORIDE 0.9% 100 ML ONE (04:01)
[2020-10-02] MEDS ORDERED: VANCOMYCIN 500 MG/VIAL ONE (04:01)
[2020-10-02] MEDS: NEPRO SHAKE 237 ML CAN PO SCH ×2 (09:00→20:23)
[2020-10-02] MEDS: DOCUSATE NA 100 MG CAP PO SCH ×3 (09:00→20:21)
[2020-10-02] MEDS: PANTOPRAZOLE 40 MG INJ IVP SCH ×2 (10:37→20:22)
[2020-10-02] MEDS: Meropenem 500 MG in NA CHLORIDE 0.9% 100 ML IV SCH ×2 (10:37→20:26)
[2020-10-02] MEDS: MULTIVITAMINS,THERAPEUT 1 TAB PO SCH (10:49)
[2020-10-02] MEDS: carvediloL 25 MG TAB PO SCH ×2 (10:49→20:21)
--- NOTE | 2020-10-02 10:55 | P.PN ---
Subjective Date of Service: 10/02/20 Chief Complaint: Dose of vomiting and abdominal pain Patient seen and examined at bedside. Leukocytosis continues to up trend- antibiotics have been changed. Patient complains of bilateral upper extremity pain that extends from shoulder down to hands. Nausea still present. Review of Systems 10-point ROS is otherwise unremarkable Physical Examination - Vital Signs Temperature: 98.6 F Blood Pressure: 143/84 Pulse: 82 Respirations: 16 Pulse Ox (%): 94 - Physical Exam Other Physical/Emotional Findings: General: Alert, In no apparent distress, Oriented x3, Cachectic. HEENT: Atraumatic, Normocephalic. Neck: Supple, 2+ carotid pulse no bruit. Respiratory: Crackles/rales more prominent on left side. Gastrointestinal: Normal bowel sounds, Other (scar tissue formation from heprin shots ). Integumentary: No rashes, No breakdown. Neurological: Normal gait - Studies Medications List Reviewed: Yes Assessment And Plan - Plan Assessment 1. admonimal pain 2. leukocytosis 3. ESRD on HD 4. moderate protein-calorie malnourished 5. possible lower left lobe aspiration pneumonia Plan 1. CT abdomen and pelvis with contrast completed on 10/01 showed: Fluid distended stomach and multiple distended to borderline dilated fluid-filled small bowel loops. Ileus and/ or enteritis is favored. Patient may have an enteritis related gastro paresis. Contrast within the colon would indicate no small bowel obstruction. The long duration of contrast retention would indicate overall significant diminishment in bowel peristalsis.Patient has mottled atte nuation of the bony structures more pronounced than typically seen for age. Multiple myeloma or other neoplastic process cannot be excluded. Metabolic bone loss is possible. Correlation is needed with history not available for this examination. 2. WBC continues to increase. Patient has been on vanco for 48 hr with no response-vanco DC and zyvox started for possible VRE infection. Continue meropenum as well. Procalcitonin: 2.63. ESD: 30. Blood cultures on 10/01: negative. Based on CT results, patient may have myeloma or other neoplastic prcoess which could be attributing to his chronic leukocytosis. Recommend hematology/oncology consult. 3. ESRD-continue HD 4. Prealbumin on 09/30 is 13.4, Recommend consulting waste handling technician Medical management per primary team plan of care discussed with Dr. Menendez.
[2020-10-02] MEDS: EPOETIN ALFA-EPBX 4,000 UNIT/ML VIAL SQ SCH (17:00)
--- NOTE | 2020-10-02 17:19 | P.PN ---
Subjective Date of Service: 10/02/20 Chief Complaint: Dose of vomiting and abdominal pain Patient's leukocytosis continue to trend up. He continues to have intermittent vomiting with meals. CT abdomen and pelvis done yesterday demonstrates small bowel dilatation. Patient also looks dry. No fever. Physical Examination - Vital Signs Temperature: 98.2 F Blood Pressure: 120/74 Pulse: 81 Respirations: 22 Pulse Ox (%): 96 - Physical Exam General: Alert, In no apparent distress, Oriented x3, Cachectic HEENT: Other (Dry tongue.) Neck: Supple Respiratory: Clear to auscultation bilaterally, Normal air movement Cardiovascular: No edema, Regular rate/rhythm, Normal S1 S2 Gastrointestinal: Hypoactive, Soft and benign, Non-distended, No tenderness Musculoskeletal: No swelling, No tenderness Integumentary: No rashes, Other (No decubitus ulcers.) Neurological: Other (No focal motor deficit. Globally weak.) Other Physical/Emotional Findings: General: Alert, In no apparent distress, Oriented x3, Cachectic. HEENT: Atraumatic, Normocephalic. Neck: Supple, 2+ carotid pulse no bruit. Respiratory: Crackles/rales more prominent on left side. Gastrointestinal: Normal bowel sounds, Other (scar tissue formation from heprin shots ). Integumentary: No rashes, No breakdown. Neurological: Normal gait - Studies Medications List Reviewed: Yes Assessment And Plan - Current Problems (Diagnosis) (1) Enteritis Current Visit: Yes Status: Acute (2) Gastritis Current Visit: Yes Status: Acute (3) End-stage renal disease on hemodialysis Current Visit: No Status: Acute (4) History of GI bleed Current Visit: Yes Status: Acute (5) Anemia Current Visit: No Status: Acute (6) Aspiration pneumonia Current Visit: Yes Status: Acute Physician Review Additional Text: Physical Exam: Gen: NAD, cachectic HEENT: sclera anicteric CV: regular rate & rhythm, no edema Pulm: slight crackle at bases, diminished at bilateral bases, breathing comfortably on RA Abd: soft, NTND Ext: no rash, no lesions Problem List Enteritis/ Gastritis Acute metabolic encephalopathy secondary to Aspiration pneumonia, improving ESRD on HD h/o GI Bleed Anemia of chronic disease Aspiration pneumonia -initially concern for pSBO vs enteritis, General Surgery was consulted and agreed with medical management. -no more abdominal pain. Patient continued to vomit intermittently. -repeat abdominal CT again demonstrates dilated small bowel. Patient may have ileus -leukocytosis continue to get worse -there is a concern leukocytosis due to new infection. -blood cultures: No growth to date. 2 sets of blood cultures no growth. 1 more blood cultures is pending. Could be leukemoid reaction. -given prior history of hypercalcemia and bone demineralization, have ordered protein electrophoresis to assess for multiple myeloma. -patient also agrees to PEG Tube placement given his decreased oral intake, malnutrition and dysphagia with aspiration. -continue IV Protonix for gastritis. -hemoglobin is stable and due to chronic disease/ ESRD. Patient was recently here for hematochezia /gastritis. given 1uPRBC on 09/24, No evidence of bleeding -infectious disease is following. IV vancomycin changed to IV Zyvox to provide covering for VRE too. -Continue IV in -patient looks dehydrated. -will therefore rehydrate with slow IV fluid. Monitor for volume overload. -pureed diet and thickened liquids as tolerated. -UA concerning for possible UTI as well, however culture without any growth. -pain management as needed. -monitor H&H and transfuse p.r.n. -nephrology is following for HD -unstable for transfer to LTAC at this time.
[2020-10-02] MEDS: D5 0.9 NS 1,000 ML IV SCH (18:00)
[2020-10-02] MEDS: DOXAZOSIN 2 MG TAB PO SCH (20:20)
[2020-10-02] MEDS: LINEZOLID 600 MG IVPB 600 MG/300 ML BAG IV SCH (20:29)
--- NOTE | 2020-10-02 21:43 | P.PN ---
Date of Service: 10/02/20 Vital Signs Temp Pulse Resp BP Pulse Ox 98.2 F 67 20 126/67 96 10/02/20 17:29 10/02/20 20:21 10/02/20 17:42 10/02/20 20:21 10/02/20 17:42 Medications Acetaminophen (Acetaminophen 500 Mg Tab) 500 mg PO Q6H PRN PRN Reason: TEMP > 100' F Stop: 10/20/20 20:10 Last Admin: 09/23/20 08:29 Dose: 500 mg Documented by: Acetaminophen (Acetaminophen 650mg/Rect Supp) 650 mg IA Q4H PRN PRN Reason: TEMP > 100' F Stop: 10/22/20 08:21 Last Admin: 09/28/20 16:15 Dose: 650 mg Documented by: Carvedilol (Carvedilol 25 Mg Tab) 25 mg PO BID [facility] Last Admin: 10/02/20 20:21 Dose: 25 mg Documented by: Docusate Sodium (Docusate Na 100 Mg Cap) 100 mg PO BID [facility] Stop: 10/23/20 09:01 Last Admin: 10/02/20 20:21 Dose: 100 mg Documented by: Doxazosin Mesylate (Doxazosin 2 Mg Tab) 2 mg PO BEDTIME [facility] Last Admin: 10/02/20 20:20 Dose: 2 mg Documented by: Enteral Nutritional Formula (Nepro Shake 237 Ml Can) 237 ml PO BID [facility] Last Admin: 10/02/20 20:23 Dose: Not Given Documented by: Fentanyl Citrate (Fentanyl Citr 100 Mcg/2 Ml) 25 mcg IV Q4H PRN PRN Reason: Pain scale 8-10 (Severe) Last Admin: 10/02/20 17:12 Dose: 25 mcg Documented by: Heparin Sodium (Porcine) (Heparin 5000 Unit/Ml 1 Ml Vial) 5,000 unit SQ Q8HR [facility] Stop: 10/21/20 01:01 Last Admin: 09/24/20 09:00 Dose: Not Given Documented by: Heparin Sodium (Porcine) (Heparin 1,000 Unit/Ml Vial) 6,000 unit IV EVERY HD PRN PRN Reason: Dialysis Last Admin: 10/01/20 17:33 Dose: 6,000 unit Documented by: Albumin Human (Albumin 25%) 50 mls @ 100 mls/hr IV EVERY HD [facility] Stop: 10/21/20 22:01 Meropenem 500 mg/ Sodium (Chloride) 100 mls @ 100 mls/hr IV Q12HR [facility] Last Admin: 10/02/20 20:26 Dose: 100 mls Documented by: Linezolid (Zyvox 600 Mg/300 Ml Ivpb (Premix)) 600 mg in 300 mls @ 300 mls/hr IV Q12HR [facility]; Protocol Last Admin: 10/02/20 20:29 Dose: 300 mls Documented by: Dextrose/Sodium Chloride (D5w Ns 1-Liter Bag) 1,000 mls @ 50 mls/hr IV .Q20H [facility] Last Admin: 10/02/20 18:00 Dose: 1,000 mls Documented by: Mannitol (Mannitol 25% 12.5 Gm/50 Ml Vial) 12.5 gm IV EVERY HD PRN PRN Reason: Titrate to SBP (MUST DEFINE) Stop: 10/21/20 21:32 Ondansetron HCl (Ondansetron 4 Mg/2 Ml Vial) 4 mg IV Q8H PRN PRN Reason: NAUSEA / VOMITING Stop: 10/20/20 20:10 Last Admin: 10/02/20 00:35 Dose: 4 mg Documented by: Pantoprazole Sodium (Pantoprazole 40 Mg Inj) 40 mg IVP Q12HR [facility]; Protocol Stop: 10/20/20 21:01 Last Admin: 10/02/20 20:22 Dose: 40 mg Documented by: Senna/Docusate Sodium (Docusate Na/Senna Conc 1 Tab) 2 tab PO BEDTIME PRN PRN Reason: CONSTIPATION Last Admin: 09/29/20 23:12 Dose: 2 tab Documented by: Sodium Chloride (Flush Normal Saline 10 Ml) 10 ml IV BID [facility] Stop: 10/20/20 21:01 Last Admin: 10/02/20 20:24 Dose: 10 ml Documented by: Sodium Chloride (Flush Normal Saline 10 Ml) 10 ml IV BID [facility] Stop: 10/20/20 21:01 Last Admin: 10/02/20 20:24 Dose: 10 ml Documented by: Sodium Chloride (Sodium Chloride 0.9% 10ml Inj) 10 ml IV UD PRN PRN Reason: Diluant Stop: 10/20/20 20:13 Last Admin: 09/21/20 22:06 Dose: 10 ml Documented by: Tramadol HCl (Tramadol Hcl 50 Mg Tab) 50 mg PO Q6H PRN PRN Reason: Pain scale 5-7 (Moderate) Last Admin: 09/30/20 21:03 Dose: 50 mg Documented by: Vitamin B Complex/Vit C/Folic Acid (Multivitamins,Therapeut 1 Tab) 1 tab PO DAILY [facility] Stop: 10/24/20 09:01 Last Admin: 10/02/20 10:49 Dose: 1 tab Documented by: Assessment/ Plan: Nephrology No cardiac or pulmonary complaints. No CP or SOB. Persistent malaise and weakness. Intermittent nausea. He states that he feels like he is dying. No acute events overnight. Vitals, medications, blood work and imaging reviewed in the chart. General: Cooperative, Mild distress HEENT: Atraumatic Neck: Supple Respiratory: Clear to auscultation bilaterally Cardiovascular: No edema, Regular rate/rhythm Gastrointestinal: Non-distended, Tenderness Musculoskeletal: No clubbing, No contractures Integumentary: No rashes, No cyanosis Neurological: Abnormal speech Blood work reviewed in the chart. Imagings Data: EXAM DESCRIPTION: RAD - Chest Single View - 09/22/2020 9:14 am CLINICAL HISTORY: elevated temp Chest pain. COMPARISON: Chest Single View dated 09/20/2020; Chest Single View dated 09/14/2020; Chest Single View dated 08/26/2020; Chest Single View dated 07/24/2020 FINDINGS: Portable technique limits examination quality. Mild bilateral interstitial lung opacities appear slightly worse relative to comparative study. The heart is mildly enlarged in size. Right-sided venous catheter tip in the right atrium. IMPRESSION: Mild worsening in bilateral pulmonary opacities, greater on the left, seen since prior study. EXAM DESCRIPTION: RAD - Abdomen 1 View (KUB) - 09/22/2020 9:14 am CLINICAL HISTORY: SBO Pain COMPARISON: Abdomen Pelvis Wo Contrast dated 09/20/2020 FINDINGS: Mildly prominent small bowel loops in the central abdomen are noted. No suspicious calcifications. No significant bony findings. Contrast is seen in the colon. IMPRESSION: Several mildly prominent small bowel loops in the central abdomen are noted. Contrast is seen in the colon. An ileus is favored over a mechanical obstruction. Conclusions/Impression: A/ ESRD on HD Hyperkalemia Hypercalcemia HTN with CKD/ CHF Diastolic CHF, chronic Moderate malnutrition Anemia in CKD MIAH/ Secondary HyperPTH BPH with LUTS Enteritis GI hemorrhage Dysphagia Asp PNA P/ Continue current POC and Medications Continue Retacrit. Continue Meropenem and Vancomycin. Puree diet. Consider PEG placement; the patient agrees at this time. No NSAIDs. AM labs. Daily weight. Recommend PT as tolerated. Case reviewed with Dr. Busch
[2020-10-03] MEDS: FENTANYL CITR 100 MCG/2 ML IV PRN ×4 (05:39→21:04)
[2020-10-03 06:06] LABS: Absolute Lymphocytes (CBC) 2.3 K/uL (0.7-4.9); Basophils % 2.6 % (0-1.3); Hematocrit 29.2 % (39.6-49.0); Lymphocytes % 7.2 % (15.3-44.8); MPV 8.2 fL (7.6-11.3); RBC Red Blood Cell Count 3.29 M/uL (4.33-5.43)
[2020-10-03 08:45] LABS: Platelet Estimate DECR; Platelets, Giant FEW
[2020-10-03 08:46] LABS: Blood Morphology Comment NOT SEEN (NOT SEEN)
[2020-10-03] MEDS: MULTIVITAMINS,THERAPEUT 1 TAB PO SCH ×2 (09:00→10:03)
[2020-10-03] MEDS: carvediloL 25 MG TAB PO SCH ×3 (09:00→21:06)
[2020-10-03] MEDS: NEPRO SHAKE 237 ML CAN PO SCH ×2 (09:00→21:00)
[2020-10-03] MEDS: Meropenem 500 MG in NA CHLORIDE 0.9% 100 ML IV SCH ×2 (10:01→20:58)
[2020-10-03] MEDS: LINEZOLID 600 MG IVPB 600 MG/300 ML BAG IV SCH ×2 (10:02→21:11)
[2020-10-03] MEDS: DOCUSATE NA 100 MG CAP PO SCH ×2 (10:03→21:04)
[2020-10-03] MEDS: PANTOPRAZOLE 40 MG INJ IVP SCH ×2 (10:03→21:06)
--- NOTE | 2020-10-03 11:50 | P.PN ---
Subjective Date of Service: 10/03/20 Chief Complaint: Dose of vomiting and abdominal pain Leukocytosis grossly unchanged. No major changes from yesterday. Patient also looks dry and cachectic. No fever. He declines NG-tube insertion. He has agreed to PEG tube insertion per Dr. Garcia. Physical Examination - Vital Signs Temperature: 98.4 F Blood Pressure: 132/73 Pulse: 82 Respirations: 20 Pulse Ox (%): 98 - Physical Exam General: Alert, In no apparent distress, Cachectic Neck: JVD not distended Respiratory: Clear to auscultation bilaterally, Normal air movement Cardiovascular: No edema, Regular rate/rhythm, Normal S1 S2 Gastrointestinal: Soft and benign, Non-distended, No tenderness Musculoskeletal: No swelling Integumentary: No rashes, No erythema Neurological: Other (No focal motor deficit) Other Physical/Emotional Findings: General: Alert, In no apparent distress, Oriented x3, Cachectic. HEENT: Atraumatic, Normocephalic. Neck: Supple, 2+ carotid pulse no bruit. Respiratory: Crackles/rales more prominent on left side. Gastrointestinal: Normal bowel sounds, Other (scar tissue formation from heprin shots ). Integumentary: No rashes, No breakdown. Neurological: Normal gait - Studies Medications List Reviewed: Yes Assessment And Plan - Current Problems (Diagnosis) (1) Enteritis Current Visit: Yes Status: Acute (2) Gastritis Current Visit: Yes Status: Acute (3) End-stage renal disease on hemodialysis Current Visit: No Status: Acute (4) History of GI bleed Current Visit: Yes Status: Acute (5) Anemia Current Visit: No Status: Acute (6) Aspiration pneumonia Current Visit: Yes Status: Acute Physician Review Additional Text: Physical Exam: Gen: NAD, cachectic HEENT: sclera anicteric CV: regular rate & rhythm, no edema Pulm: slight crackle at bases, diminished at bilateral bases, breathing comfortably on RA Abd: soft, NTND Ext: no rash, no lesions Problem List Enteritis/ Gastritis Acute metabolic encephalopathy secondary to Aspiration pneumonia, improving ESRD on HD h/o GI Bleed Anemia of chronic disease Aspiration pneumonia -initially concern for pSBO vs enteritis, General Surgery was consulted and agreed with medical management. -no more abdominal pain. -repeat abdominal CT again demonstrates dilated small bowel. [place] may [place] [id number]. -blood cultures: No growth to date. All blood cultures: No growth to date. Could be leukemoid reaction. -given prior history of hypercalcemia and bone demineralization, have ordered protein electrophoresis to assess for multiple myeloma. -PEG Tube placement recommended given his decreased oral intake, malnutrition and dysphagia with aspiration. -Dr. Warren will evaluate him on Monday for PEG tube placement. -continue IV Protonix for gastritis. -hemoglobin is stable and due to chronic disease/ ESRD. Patient was recently here for hematochezia /gastritis. given 1uPRBC on 09/24, No evidence of bleeding -infectious disease is following. IV vancomycin changed to IV Zyvox to provide covering for VRE too. -Continue IV Meropenem. -patient looks dehydrated. -will therefore rehydrate with slow IV fluid. Monitor for volume overload. -pureed diet and thickened liquids as tolerated. -patient declined NG tube insertion at this time. -pain management as needed. -monitor H&H and transfuse p.r.n. -nephrology is following for HD -unstable for transfer to LTAC at this time.
--- NOTE | 2020-10-03 13:06 | P.PN ---
Date of Service: 10/03/20 Vital Signs Temp Pulse Resp BP Pulse Ox 97.7 F 83 20 119/70 96 10/03/20 12:00 10/03/20 12:00 10/03/20 12:46 10/03/20 12:00 10/03/20 12:46 Medications Acetaminophen (Acetaminophen 500 Mg Tab) 500 mg PO Q6H PRN PRN Reason: TEMP > 100' F Stop: 10/20/20 20:10 Last Admin: 09/23/20 08:29 Dose: 500 mg Documented by: Acetaminophen (Acetaminophen 650mg/Rect Supp) 650 mg CO Q4H PRN PRN Reason: TEMP > 100' F Stop: 10/22/20 08:21 Last Admin: 09/28/20 16:15 Dose: 650 mg Documented by: Carvedilol (Carvedilol 25 Mg Tab) 25 mg PO BID [facility] Last Admin: 10/03/20 09:00 Dose: Not Given Documented by: Docusate Sodium (Docusate Na 100 Mg Cap) 100 mg PO BID [facility] Stop: 10/23/20 09:01 Last Admin: 10/03/20 10:03 Dose: 100 mg Documented by: Doxazosin Mesylate (Doxazosin 2 Mg Tab) 2 mg PO BEDTIME [facility] Last Admin: 10/02/20 20:20 Dose: 2 mg Documented by: Enteral Nutritional Formula (Nepro Shake 237 Ml Can) 237 ml PO BID [facility] Last Admin: 10/03/20 09:00 Dose: Not Given Documented by: Fentanyl Citrate (Fentanyl Citr 100 Mcg/2 Ml) 25 mcg IV Q4H PRN PRN Reason: Pain scale 8-10 (Severe) Last Admin: 10/03/20 12:46 Dose: 25 mcg Documented by: Heparin Sodium (Porcine) (Heparin 5000 Unit/Ml 1 Ml Vial) 5,000 unit SQ Q8HR [facility] Stop: 10/21/20 01:01 Last Admin: 09/24/20 09:00 Dose: Not Given Documented by: Heparin Sodium (Porcine) (Heparin 1,000 Unit/Ml Vial) 6,000 unit IV EVERY HD PRN PRN Reason: Dialysis Last Admin: 10/01/20 17:33 Dose: 6,000 unit Documented by: Albumin Human (Albumin 25%) 50 mls @ 100 mls/hr IV EVERY HD [facility] Stop: 10/21/20 22:01 Meropenem 500 mg/ Sodium (Chloride) 100 mls @ 100 mls/hr IV Q12HR [facility] Last Admin: 10/03/20 10:01 Dose: 100 mls Documented by: Linezolid (Zyvox 600 Mg/300 Ml Ivpb (Premix)) 600 mg in 300 mls @ 300 mls/hr IV Q12HR [facility]; Protocol Last Admin: 10/03/20 10:02 Dose: 300 mls Documented by: Dextrose/Sodium Chloride (D5w Ns 1-Liter Bag) 1,000 mls @ 50 mls/hr IV .Q20H [facility] Last Admin: 10/02/20 18:00 Dose: 1,000 mls Documented by: Mannitol (Mannitol 25% 12.5 Gm/50 Ml Vial) 12.5 gm IV EVERY HD PRN PRN Reason: Titrate to SBP (MUST DEFINE) Stop: 10/21/20 21:32 Ondansetron HCl (Ondansetron 4 Mg/2 Ml Vial) 4 mg IV Q8H PRN PRN Reason: NAUSEA / VOMITING Stop: 10/20/20 20:10 Last Admin: 10/02/20 00:35 Dose: 4 mg Documented by: Pantoprazole Sodium (Pantoprazole 40 Mg Inj) 40 mg IVP Q12HR [facility]; Protocol Stop: 10/20/20 21:01 Last Admin: 10/03/20 10:03 Dose: 40 mg Documented by: Senna/Docusate Sodium (Docusate Na/Senna Conc 1 Tab) 2 tab PO BEDTIME PRN PRN Reason: CONSTIPATION Last Admin: 09/29/20 23:12 Dose: 2 tab Documented by: Sodium Chloride (Flush Normal Saline 10 Ml) 10 ml IV BID [facility] Stop: 10/20/20 21:01 Last Admin: 10/03/20 10:04 Dose: 10 ml Documented by: Sodium Chloride (Flush Normal Saline 10 Ml) 10 ml IV BID [facility] Stop: 10/20/20 21:01 Last Admin: 10/03/20 09:00 Dose: Not Given Documented by: Sodium Chloride (Sodium Chloride 0.9% 10ml Inj) 10 ml IV UD PRN PRN Reason: Diluant Stop: 10/20/20 20:13 Last Admin: 09/21/20 22:06 Dose: 10 ml Documented by: Vitamin B Complex/Vit C/Folic Acid (Multivitamins,Therapeut 1 Tab) 1 tab PO DAILY [facility] Stop: 10/24/20 09:01 Last Admin: 10/03/20 09:00 Dose: Not Given Documented by: Assessment/ Plan: Nephrology No cardiac or pulmonary complaints. No CP or SOB. Persistent malaise and weakness. Intermittent nausea. No acute events overnight. Vitals, medications, blood work and imaging reviewed in the chart. General: Cooperative, Mild distress HEENT: Atraumatic Neck: Supple Respiratory: Clear to auscultation bilaterally Cardiovascular: No edema, Regular rate/rhythm Gastrointestinal: Non-distended, Tenderness Musculoskeletal: No clubbing, No contractures Integumentary: No rashes, No cyanosis Neurological: Abnormal speech Blood work reviewed in the chart. Imagings Data: EXAM DESCRIPTION: RAD - Chest Single View - 09/22/2020 9:14 am CLINICAL HISTORY: elevated temp Chest pain. COMPARISON: Chest Single View dated 09/20/2020; Chest Single View dated 09/14/2020; Chest Single View dated 08/26/2020; Chest Single View dated 07/24/2020 FINDINGS: Portable technique limits examination quality. Mild bilateral interstitial lung opacities appear slightly worse relative to comparative study. The heart is mildly enlarged in size. Right-sided venous catheter tip in the right atrium. IMPRESSION: Mild worsening in bilateral pulmonary opacities, greater on the left, seen since prior study. EXAM DESCRIPTION: RAD - Abdomen 1 View (KUB) - 09/22/2020 9:14 am CLINICAL HISTORY: SBO Pain COMPARISON: Abdomen Pelvis Wo Contrast dated 09/20/2020 FINDINGS: Mildly prominent small bowel loops in the central abdomen are noted. No suspicious calcifications. No significant bony findings. Contrast is seen in the colon. IMPRESSION: Several mildly prominent small bowel loops in the central abdomen are noted. Contrast is seen in the colon. An ileus is favored over a mechanical obstruction. Conclusions/Impression: A/ ESRD on HD Hyperkalemia Hypercalcemia HTN with CKD/ CHF Diastolic CHF, chronic Moderate malnutrition Anemia in CKD MIAH/ Secondary HyperPTH BPH with LUTS Enteritis GI hemorrhage Dysphagia Asp PNA P/ Continue current POC and Medications Acute HD today. Continue Retacrit. Continue Meropenem and Vancomycin. Puree diet. Consider PEG placement; the patient agrees at this time. No NSAIDs. AM labs. Daily weight. Recommend PT as tolerated.
[2020-10-03] MEDS: D5 0.9 NS 1,000 ML IV SCH (14:00)
[2020-10-03] MEDS: DOXAZOSIN 2 MG TAB PO SCH (21:04)
[2020-10-04] MEDS: FENTANYL CITR 100 MCG/2 ML IV PRN ×4 (01:47→21:05)
[2020-10-04] MEDS: D5 0.9 NS 1,000 ML IV SCH (05:30)
[2020-10-04 05:56] LABS: Absolute Lymphocytes (CBC) 2.6 K/uL (0.7-4.9); Basophils % 2.3 % (0-1.3); Lymphocytes % 7.4 % (15.3-44.8); MPV 8.1 fL (7.6-11.3); RBC Red Blood Cell Count 3.25 M/uL (4.33-5.43)
[2020-10-04 06:18] LABS: Potassium 3.3 mmol/L (3.5-5.1)
[2020-10-04 08:59] LABS: Blood Morphology Comment NOT SEEN (NOT SEEN); Platelet Estimate DECR; Platelets, Giant FEW
[2020-10-04] MEDS: DOCUSATE NA 100 MG CAP PO SCH ×3 (09:00→21:06)
[2020-10-04] MEDS: carvediloL 25 MG TAB PO SCH ×3 (09:00→21:06)
[2020-10-04] MEDS: NEPRO SHAKE 237 ML CAN PO SCH ×3 (09:00→21:08)
[2020-10-04] MEDS: PANTOPRAZOLE 40 MG INJ IVP SCH ×2 (09:06→21:07)
[2020-10-04] MEDS: MULTIVITAMINS,THERAPEUT 1 TAB PO SCH (09:06)
[2020-10-04] MEDS: Meropenem 500 MG in NA CHLORIDE 0.9% 100 ML IV SCH ×2 (09:07→22:06)
[2020-10-04] MEDS: ONDANSETRON 4 MG/2 ML VIAL IV PRN (09:07)
[2020-10-04] MEDS: LINEZOLID 600 MG IVPB 600 MG/300 ML BAG IV SCH ×2 (09:07→21:07)
[2020-10-04] MEDS: KCL 20 MEQ/100 mL IVPB 20 MEQ/100 ML BAG IV SCH ×2 (09:08→14:03)
--- NOTE | 2020-10-04 11:14 | P.PN ---
Subjective Date of Service: 10/04/20 Chief Complaint: Dose of vomiting and abdominal pain Leukocytosis trending up. Patient vomited this morning. He has no other complain and stating he is ready to go home. Patient also looks dry and cachectic. No fever. He declines NG-tube insertion. He has agreed to PEG tube insertion. Physical Examination - Vital Signs Temperature: 98.1 F Blood Pressure: 132/75 Pulse: 87 Respirations: 18 Pulse Ox (%): 96 - Physical Exam General: Alert, In no apparent distress HEENT: Mucous membr. moist/pink Neck: JVD not distended Respiratory: Clear to auscultation bilaterally, Normal air movement Cardiovascular: No edema, Regular rate/rhythm, Normal S1 S2 Gastrointestinal: Soft and benign, Non-distended, No tenderness Musculoskeletal: No swelling, No tenderness Integumentary: No rashes, No erythema Neurological: Other (No focal motor deficits) Other Physical/Emotional Findings: General: Alert, In no apparent distress, Oriented x3, Cachectic. HEENT: Atraumatic, Normocephalic. Neck: Supple, 2+ carotid pulse no bruit. Respiratory: Crackles/rales more prominent on left side. Gastrointestinal: Normal bowel sounds, Other (scar tissue formation from heprin shots ). Integumentary: No rashes, No breakdown. Neurological: Normal gait - Studies Medications List Reviewed: Yes Assessment And Plan - Current Problems (Diagnosis) (1) Enteritis Current Visit: Yes Status: Acute (2) Gastritis Current Visit: Yes Status: Acute (3) End-stage renal disease on hemodialysis Current Visit: No Status: Acute (4) History of GI bleed Current Visit: Yes Status: Acute (5) Anemia Current Visit: No Status: Acute (6) Aspiration pneumonia Current Visit: Yes Status: Acute Physician Review Additional Text: Problem List Enteritis/ Gastritis Acute metabolic encephalopathy secondary to Aspiration pneumonia, improving ESRD on HD h/o GI Bleed Anemia of chronic disease Aspiration pneumonia -no more abdominal pain. -repeat abdominal CT again demonstrates dilated small bowel. Patient may have ileus. He continued to vomit intermittentl -leukocytosis continue to trend up. -blood cultures: No growth to date. All blood cultures: No growth to date. Could be leukemoid reaction. -given prior history of hypercalcemia and bone demineralization, have ordered protein electrophoresis to assess for multiple myeloma. Result is pending. -will repeat C. diff. -PEG Tube placement recommended given his decreased oral intake, malnutrition and dysphagia with aspiration. -Dr. Warren will evaluate him on Monday for PEG tube placement. -continue IV Protonix for gastritis. -hemoglobin is stable and due to chronic disease/ ESRD. Patient was recently here for hematochezia /gastritis. given 1uPRBC on 09/24, No evidence of bleeding -infectious disease is following. IV vancomycin changed to IV Zyvox to provide covering for VRE too. -Continue IV Meropenem. -continue to rehydrate with slow IV fluid. Monitor for volume overload. -pureed diet and thickened liquids as tolerated. -patient declined NG tube insertion at this time. -pain management as needed. -monitor H&H and transfuse p.r.n. -nephrology is following for HD -unstable for transfer to LTAC at this time.
--- NOTE | 2020-10-04 16:45 | RAD REPORT ---
[facility] CLINICAL HISTORY: Device placement nasogastric tube placement IMPRESSION: Nasogastric tube has been inserted with its tip in the distal stomach. Free air is not seen beneath the diaphragm.
[2020-10-04] MEDS: DOXAZOSIN 2 MG TAB PO SCH (21:07)
[2020-10-05] MEDS: FENTANYL CITR 100 MCG/2 ML IV PRN ×5 (02:58→21:01)
[2020-10-05 04:41] LABS: Absolute Lymphocytes (CBC) 27.1 K/uL (0.7-4.9); Basophils % 0.1 % (0-1.3); Hematocrit 27.9 % (39.6-49.0); Lymphocytes % 77.1 % (15.3-44.8); MPV 7.9 fL (7.6-11.3); RBC Red Blood Cell Count 3.12 M/uL (4.33-5.43)
[2020-10-05 05:02] LABS: Magnesium 1.9 mg/dL (1.8-2.4); Phosphorus 3.8 mg/dL (2.5-4.9); Potassium 3.4 mmol/L (3.5-5.1)
[2020-10-05] MEDS: D5 0.9 NS 1,000 ML IV SCH (05:56)
[2020-10-05] MEDS: KCL 20 MEQ/100 mL IVPB 20 MEQ/100 ML BAG IV SCH ×2 (06:38→10:42)
[2020-10-05] MEDS ORDERED: NA CHLORIDE 0.9% 500 ML ONE (08:53)
[2020-10-05] MEDS: NEPRO SHAKE 237 ML CAN PO SCH (09:00)
[2020-10-05] MEDS: DOCUSATE NA 100 MG CAP PO SCH ×2 (09:00→21:02)
[2020-10-05] MEDS ORDERED: LIDOCAINE 1% MPF 5 ML VIAL ONE (09:01)
[2020-10-05] MEDS ORDERED: propofoL 200 MG/20 ML VIAL IV ONE (09:01)
[2020-10-05] MEDS: Meropenem 500 MG in NA CHLORIDE 0.9% 100 ML IV SCH ×2 (09:06→21:04)
--- NOTE | 2020-10-05 09:57 | ENDO RPT ---
[address], [address] EGD PROCEDURE REPORT EXAM DATE: 10/05/2020 PATIENT NAME: Cr Orellana MR#: [id number] BIRTHDATE: 1965 ATTENDING: Napoleon Warren DR STATUS: inpatient - [facility] SUPERVISOR FINAL: Dimitris Kinney and Vanessa Gtz RN INDICATIONS: The patient is a 55 yr old Male here for an EGD due to dysphagia, malnutrition, and nausea and vomiting PROCEDURE PERFORMED: EGD with snare polypectomy, EGD for control of bleeding, and EGD with biopsy MEDICATIONS: Per Anesthesia. TOPICAL ANESTHETIC: none CONSENT: The patient understands the risks and benefits of the procedure and understands that these risks include, but are not limited to: sedation, allergic reaction, infection, perforation and/or bleeding. Alternative means of evaluation and treatment include, among others: physical exam, x-rays, and/or surgical intervention. The patient elects to proceed with this endoscopic procedure. DESCRIPTION OF PROCEDURE: During intra-op preparation period all mechanical medical equipment was checked for proper function. Hand hygiene and appropriate measures for infection prevention was taken. Procedure, possible complications, and alternatives including but not limited to the possibility of bleeding, perforation, tear, infection, sepsis, need for surgery, need for blood transfusion, and anesthesia related complications were explained to the patient. After the risks, benefits and alternatives of the procedure were thoroughly explained, Informed consent was verified, confirmed and timeout was successfully executed by the treatment team. Through the oropharyngeal area, the scope was passed without any difficulty. The [id number] ([id number]) endoscope was introduced through the mouth and advanced to the . Retroflexed views revealed a moderate sized hiatal hernia. The gastroscope was then slowly withdrawn and removed. The patient was placed in the supine position in preparation to place a PEG tube, however on initial sweep into the duodenum for simple exploration, a mass was noted in the pyloric channel. .. . . .... A tubulovillous mass was found at the pyloric channel. It was removed and recovered with basket. The mass was not completely removed, it was approximately 30% of the circumference of the pyloric channel. It was located about 80 cm from the point of entry. The Polyp was snared, then cauterized with monopolar cautery. Polyp was retrieved and sent to pathology. Mild Atrophic gastritis was found in the total stomach. The NG tube was passed beyond the mass for tube feedings until pathology is returned. ADVERSE EVENTS: There were no complications. IMPRESSIONS: 1. A tubulovillous mass was found at the pylorus 2. Mild Atrophic gastritis was found in the total stomach RECOMMENDATIONS: 1. acid suppression therapy 2. anti-reflux regimen 3. await biopsy results 4. avoid NSAIDS 5. hematocrit 6. Patient may be a candidate for jejunostomy tube placement, based on pathology REPEAT EXAM: Pyloric mass was not completely removed, it was within the pyloric channel, 30% circumferential Napoleon Warren DR eSigned: Napoleon Warren DR 10/05/2020 9:57 AM cc: CPT CODES: ICD9 CODES: PATIENT NAME: Cr Orellana MR#: [id number]
[2020-10-05] MEDS: PANTOPRAZOLE 40 MG INJ IVP SCH ×2 (10:41→21:02)
[2020-10-05] MEDS: LINEZOLID 600 MG IVPB 600 MG/300 ML BAG IV SCH ×2 (10:42→21:04)
[2020-10-05] MEDS: MULTIVITAMINS,THERAPEUT 1 TAB PO SCH (11:12)
[2020-10-05] MEDS: carvediloL 25 MG TAB PO SCH ×2 (11:12→21:02)
[2020-10-05 11:27] LABS: C.diff Antigen/Toxin Ag neg : Tox neg (NEG : NEG)
--- NOTE | 2020-10-05 12:58 | P.PN ---
Subjective Date of Service: 10/05/20 Chief Complaint: Dose of vomiting and abdominal pain Leukocytosis unchanged. Patient was in the OR today for PEG tube placement. He was found to have pyloric mass. Dr. Warren removed some of the mass for pathology. NG-tube for feeding inserted beyond the mass. Patient also looks dry and cachectic. . Physical Examination - Vital Signs Temperature: 97.6 F Blood Pressure: 118/70 Pulse: 77 Respirations: 20 Pulse Ox (%): 97 - Physical Exam General: Alert, In no apparent distress, Cachectic HEENT: Other (NG-tube) Respiratory: Clear to auscultation bilaterally, Normal air movement Cardiovascular: No edema, Regular rate/rhythm, Normal S1 S2 Gastrointestinal: Soft and benign, Non-distended, No tenderness Musculoskeletal: No swelling, No tenderness Integumentary: No rashes, No erythema Neurological: Other (No focal motor deficit) Other Physical/Emotional Findings: General: Alert, In no apparent distress, Oriented x3, Cachectic. HEENT: Atraumatic, Normocephalic. Neck: Supple, 2+ carotid pulse no bruit. Respiratory: Crackles/rales more prominent on left side. Gastrointestinal: Normal bowel sounds, Other (scar tissue formation from heprin shots ). Integumentary: No rashes, No breakdown. Neurological: Normal gait - Studies Medications List Reviewed: Yes Assessment And Plan - Current Problems (Diagnosis) (1) Enteritis Current Visit: Yes Status: Acute (2) Gastritis Current Visit: Yes Status: Acute (3) End-stage renal disease on hemodialysis Current Visit: No Status: Acute (4) History of GI bleed Current Visit: Yes Status: Acute (5) Anemia Current Visit: No Status: Acute (6) Aspiration pneumonia Current Visit: Yes Status: Acute Physician Review Additional Text: Problem List Enteritis/ Gastritis Acute metabolic encephalopathy secondary to Aspiration pneumonia, improving ESRD on HD h/o GI Bleed Anemia of chronic disease Aspiration pneumonia Small-bowel ileus Pyloric mass/gastric outlet obstruction -repeat abdominal CT again demonstrates dilated small bowel. -leukocytosis unchanged from yesterday -blood cultures: No growth to date. All blood cultures: No growth to date. Could be leukemoid reaction. -given prior history of hypercalcemia and bone demineralization, have ordered protein electrophoresis to assess for multiple myeloma. Result is pending. -will repeat C. diff. -PEG Tube not inserted due to pyloric mass. -follow pyloric mass biopsy result. -patient may be a candidate for a J-tube insertion depending on pyloric mass pathology result. -continue IV Protonix for gastritis. -feed via NGT. -hemoglobin is stable and due to chronic disease/ ESRD. Patient was recently here for hematochezia /gastritis. given 1uPRBC on 09/24, No evidence of bleeding -infectious disease is following. -Continue IV Meropenem and Zyvox -discontinue IV fluid. -pain management as needed. -monitor H&H and transfuse p.r.n. -nephrology is following for HD
[2020-10-05] MEDS: EPOETIN ALFA-EPBX 4,000 UNIT/ML VIAL SQ SCH (16:44)
[2020-10-05] MEDS: ONDANSETRON 4 MG/2 ML VIAL IV PRN (18:31)
[2020-10-05 19:44] LABS: Albumin 2.1 g/dL (3.4-5.0); Potassium 3.9 mmol/L (3.5-5.1); Prealbumin 14.5 mg/dL (20-40)
[2020-10-05] MEDS: DOXAZOSIN 2 MG TAB PO SCH (21:02)
[2020-10-05] MEDS: NEPRO 1,000 ML BOT FT SCH (21:02)
[2020-10-06] MEDS: FENTANYL CITR 100 MCG/2 ML IV PRN ×6 (00:48→22:20)
[2020-10-06] MEDS: ONDANSETRON 4 MG/2 ML VIAL IV PRN ×3 (00:49→17:54)
[2020-10-06] MEDS: D5 0.9 NS 1,000 ML IV SCH ×2 (02:00→21:19)
[2020-10-06 06:54] LABS: Absolute Lymphocytes (CBC) 8.5 K/uL (0.7-4.9); Basophils % 1.9 % (0-1.3); Hematocrit 28.4 % (39.6-49.0); Lymphocytes % 19.2 % (15.3-44.8); MPV 8.2 fL (7.6-11.3); RBC Red Blood Cell Count 3.13 M/uL (4.33-5.43)
[2020-10-06 07:31] LABS: Phosphorus 4.5 mg/dL (2.5-4.9); Potassium 3.8 mmol/L (3.5-5.1); Prealbumin 15.3 mg/dL (20-40)
[2020-10-06] MEDS: Meropenem 500 MG in NA CHLORIDE 0.9% 100 ML IV SCH ×2 (08:57→21:12)
[2020-10-06] MEDS ORDERED: KCL 20 MEQ/100 mL IVPB 20 MEQ/100 ML BAG IV SCH (09:00)
[2020-10-06] MEDS: MULTIVITAMINS,THERAPEUT 1 TAB PO SCH (09:00)
[2020-10-06] MEDS: DOCUSATE NA 100 MG CAP PO SCH ×2 (09:00→21:00)
[2020-10-06] MEDS: carvediloL 25 MG TAB PO SCH ×2 (09:00→21:00)
--- NOTE | 2020-10-06 09:21 | RAD REPORT ---
EXAM DESCRIPTION: RAD - Abdomen 1 View (KUB) - 10/06/2020 8:38 am CLINICAL HISTORY: NGT placement COMPARISON: Abdomen 1 View (KUB) dated 09/22/2020; Abdomen Pelvis W Contrast dated 10/01/2020; Abdome n Pelvis Wo Contrast dated 09/23/2020 FINDINGS: NG tube has been placed with a long length of tubing below the diaphragm. Based on the sto mach and duodenum anatomy from the from October 01 CT abdomen study, the NG tube may have extended i nto the duodenum with the tip at the duodenum -jejunum junction. Correlation is needed to determine i f the gastric tube suction has bilious or non bilious content. Stomach does not appear to be distended on this examination. Small bowel loops are prominent similar to September 22. Contrast material is present in the colon. Contrast volume within the colon has not shown a substantial change since October 01 CT study. No free air or pneumatosis. No significant bony findings IMPRESSION: NG tube has been placed with the long length of tubing below the diaphragm. Based on the anatomy from the October 01 CT study, the NG tube has extended through the full length of the duodenum with the tip at the duodenum-jejunum junction. Correlation is needed to determine if the gastric tube suction has bilious or non bilious content.
[2020-10-06] MEDS: LINEZOLID 600 MG IVPB 600 MG/300 ML BAG IV SCH ×2 (09:52→21:00)
[2020-10-06] MEDS: PANTOPRAZOLE 40 MG INJ IVP SCH ×2 (09:52→21:00)
--- NOTE | 2020-10-06 09:54 | RAD REPORT ---
EXAM DESCRIPTION: RAD - Chest Single View - 10/06/2020 8:37 am CLINICAL HISTORY: per doctor's ordersshortness of breath COMPARISON: Portable imaging September 30, abdomen examination October 04 TECHNIQUE: AP portable chest image was obtained 10/06/2020 8:37 am . FINDINGS: Lung volumes are low. No new mass or consolidation. Interstitial pattern is accentuated by low lung volumes potentially masking mild edema or infiltrate. Right-sided dialysis catheter remains in place. Heart and vasculature are normal. No measurable pleural effusion and no pneumothorax. No a cute bony abnormality seen. No acute aortic findings suspected. IMPRESSION: No acute cardiopulmonary process. Chest is not significantly different from comparison.
--- NOTE | 2020-10-06 12:55 | P.PN ---
Subjective Date of Service: 10/06/20 Chief Complaint: Dose of vomiting and abdominal pain Subjective: No new changes (feels "alright", looks ill, cachectic, fatigued. NGT with dark green output) Review of Systems 10-point ROS is otherwise unremarkable Physical Examination - Vital Signs Temperature: 98.4 F Blood Pressure: 128/74 Pulse: 95 Respirations: 19 Pulse Ox (%): 95 - Physical Exam Other Physical/Emotional Findings: General: Alert, In no apparent distress, Oriented x3, Cachectic. HEENT: Atraumatic, Normocephalic. Neck: Supple, 2+ carotid pulse no bruit. Respiratory: Crackles/rales more prominent on left side. Gastrointestinal: Normal bowel sounds, Other (scar tissue formation from heprin shots ). Integumentary: No rashes, No breakdown. Neurological: Normal gait - Studies Medications List Reviewed: Yes Assessment & Plan Physician Review Additional Text: Physical Exam: Gen: cachectic, ill-appearing, NAD HEENT: normal conjunctiva CV: regular rate / rhythm, no edema Pulm: CTAB, transmitted upper airway sounds Abd: soft, NTND Ext: no rash, no lesions Neuro: AAOx3, fatigued appearing Problem List Enteritis/ Gastritis Leukocytosis Nausea/vomiting Pyloric mass/gastric outlet obstruction Acute metabolic encephalopathy secondary to Aspiration pneumonia, resolved ESRD on HD h/o GI Bleed Anemia of chronic disease Small-bowel ileus chronic pain Enteritis/Gastritis Leukocytosis -leukocytosis worsening, possible leukemoid reaction, patient remains afebrile, procalcitonin improving -blood cultures: just returned enteroccus avium on most recent. -given prior history of hypercalcemia and bone demineralization, protein electrophoresis was ordered on 10/02 to assess for multiple myeloma. Result is pending. -prior protein electrophoresis done on 09/15: eval revealed faint restricted band (M-spike) migrating in the gamma globulin region. M spike too small to quantitate. alpha-1 globulins: 0.5 (H). [id number]: 0.9, Gamma globulins: 0.7 (L). -Heme/Onc were consulted on 10/05 -infectious disease is following. -Continue IV Meropenem and Zyvox -c.diff negative on 10/04 Nausea/vomiting Pyloric mass/gastric outlet obstruction Acute metabolic encephalopathy secondary to Aspiration pneumonia, resolved -PEG Tube not inserted on 10/05 due to pyloric mass. biopsy taken - need to await results prior to further surgery - per Dr. Warren -patient may be a candidate for a J-tube insertion depending on pyloric mass pathology result. -continue IV Protonix for gastritis. -NGT pulled in G-J junction, Dr. Warren recommends additional NGT placement today for gastric decompression, restart tube feeds via further NGT h/o GI Bleed Anemia of chronic disease -hemoglobin is stable and due to chronic disease/ ESRD. Patient was recently here for hematochezia /gastritis. given 1uPRBC on 09/24, No evidence of bleeding -monitor H&H and transfuse p.r.n. ESRD on HD -nephrology is following for HD chronic pain pain management as needed. Dispo: hospitalization > 2days, may need SNF or redo LTAC, pending pyloric mass path result / further surgery had long discussion with patient, alert/oriented, understood consequences. refused dialysis today. wanted to change code status to DNR. Time Spent Managing Pts Care (In Minutes): 35
--- NOTE | 2020-10-06 15:11 | RAD REPORT ---
EXAM DESCRIPTION: RAD - Abdomen 1 View (KUB) - 10/06/2020 2:56 pm CLINICAL HISTORY: Device placement nasogastric tube placement FINDINGS: One nasogastric tube is coiled within the stomach. The tip lies near the junction of the gastric fundus and body A second nasogastric tube has its tip in gastric fundus
--- NOTE | 2020-10-06 15:45 | RAD REPORT ---
EXAM DESCRIPTION: RAD - Abdomen 1 View (KUB) - 10/06/2020 2:56 pm CLINICAL HISTORY: Device placement the nasogastric tube placement FINDINGS: A second a nasogastric tube has placed. The tip lies within the gastric fundus approximate ly 1 centimeter from the GE junction
[2020-10-06] MEDS: NEPRO 1,000 ML BOT FT SCH (16:05)
[2020-10-06] MEDS ORDERED: NEPRO 1,000 ML BOT FT SCH (18:00)
[2020-10-06] MEDS: DOXAZOSIN 2 MG TAB PO SCH (21:00)
[2020-10-07] MEDS ORDERED: LORazepam 2 MG/ML VIAL IV ONE (00:20)
[2020-10-07] MEDS ORDERED: LORazepam 2 MG/ML VIAL ONE (00:41)
[2020-10-07 04:05] LABS: Albumin, (SPE) 2.8 g/dL (3.8-4.8); Alpha-1-Globulins 0.3 g/dL (0.2-0.3); Alpha-2-Globulins 0.8 g/dL (0.5-0.9); Gamma Globulins 0.8 g/dL (0.8-1.7); INTERPRETATION REPORT
[2020-10-07] MEDS: FENTANYL CITR 100 MCG/2 ML IV PRN ×5 (06:18→21:47)
[2020-10-07 06:41] LABS: Absolute Lymphocytes (CBC) 12.5 K/uL (0.7-4.9); Basophils % 46.1 % (0-1.3); Hematocrit 24.5 % (39.6-49.0); Lymphocytes % 21.2 % (15.3-44.8); MPV 8.3 fL (7.6-11.3); RBC Red Blood Cell Count 2.68 M/uL (4.33-5.43)
[2020-10-07 06:49] LABS: Albumin 2.1 g/dL (3.4-5.0); Bilirubin Total 0.5 mg/dL (0.2-1.0); C-Reactive Protein 52.3 mg/L (<3.00); Magnesium 2.1 mg/dL (1.8-2.4); Potassium 4.3 mmol/L (3.5-5.1); Protein, Total 5.8 g/dL (6.4-8.2)
[2020-10-07] MEDS: ONDANSETRON 4 MG/2 ML VIAL IV PRN ×2 (06:56→20:35)
[2020-10-07] MEDS ORDERED: VANCOMYCIN 500 MG in NA CHLORIDE 0.9% 100 ML IVPB SCH (07:45)
[2020-10-07 08:40] LABS: Blood Morphology Comment NOT SEEN (NOT SEEN); Platelet Estimate DECR
[2020-10-07] MEDS ORDERED: VANCOMYCIN/NS 1 gm 1 GM/250 ML BAG IVPB ONE (09:00)
[2020-10-07] MEDS ORDERED: VANCOMYCIN 1 GM in NA CHLORIDE 0.9% 500 ML IVPB SCH (09:00)
[2020-10-07] MEDS: PANTOPRAZOLE 40 MG INJ IVP SCH (09:00)
[2020-10-07] MEDS: LINEZOLID 600 MG IVPB 600 MG/300 ML BAG IV SCH (09:00)
[2020-10-07] MEDS: Meropenem 500 MG in NA CHLORIDE 0.9% 100 ML IV SCH ×2 (09:49→20:31)
[2020-10-07] MEDS: DOCUSATE NA 100 MG CAP PO SCH ×2 (09:50→20:37)
[2020-10-07] MEDS: carvediloL 25 MG TAB PO SCH ×2 (09:52→21:00)
[2020-10-07] MEDS: MULTIVITAMINS,THERAPEUT 1 TAB PO SCH (09:52)
--- NOTE | 2020-10-07 11:50 | RAD REPORT ---
EXAM DESCRIPTION: RAD - Abdomen 1 View (KUB) - 10/07/2020 11:32 am CLINICAL HISTORY: Abdomen pain. FINDINGS: The bowel gas pattern is unremarkable. Contrast is present within the colon. The tip of 1 nasogastric tube lies near the junction of the gastric body and fundus. It is unclear if the tip of the second nasogastric tube lies within the fourth portion of the duodenu m or within a mildly dilated stomach.
[2020-10-07] MEDS: EPOETIN ALFA-EPBX 4,000 UNIT/ML VIAL SQ SCH (16:11)
--- NOTE | 2020-10-07 16:21 | P.PN ---
Subjective Date of Service: 10/07/20 Chief Complaint: Dose of vomiting and abdominal pain Subjective: No new changes (patient feels about the same as yesterday. alert/oriented, sitting up in bed. uncomfortable with NG tubes. Output increased, slightly dark red tint, tolerating tube feeds) Review of Systems 10-point ROS is otherwise unremarkable Physical Examination - Vital Signs Temperature: 97.8 F Blood Pressure: 125/78 Pulse: 89 Respirations: 16 Pulse Ox (%): 100 - Physical Exam Other Physical/Emotional Findings: General: Alert, In no apparent distress, Oriented x3, Cachectic. HEENT: Atraumatic, Normocephalic. Neck: Supple, 2+ carotid pulse no bruit. Respiratory: Crackles/rales more prominent on left side. Gastrointestinal: Normal bowel sounds, Other (scar tissue formation from heprin shots ). Integumentary: No rashes, No breakdown. Neurological: Normal gait - Studies Medications List Reviewed: Yes Assessment & Plan Physician Review Additional Text: Physical Exam: Gen: cachectic, ill-appearing, NAD HEENT: normal conjunctiva, NGT x2 in place, dark greenish-black with slight red tint CV: regular rate / rhythm, no edema Pulm: CTAB, transmitted upper airway sounds Abd: soft, NTND Ext: no rash, no lesions Neuro: AAOx3, fatigued Problem List Enteritis/ Gastritis Leukocytosis Nausea/vomiting Pyloric mass/gastric outlet obstruction Acute metabolic encephalopathy secondary to Aspiration pneumonia, resolved ESRD on HD h/o GI Bleed Anemia of chronic disease Small-bowel ileus chronic pain Enteritis/Gastritis Leukocytosis -leukocytosis worsening, patient remains afebrile, procalcitonin improving; unlikely infectious etiology -blood cultures: enteroccus avium on merrem and vanc - discussed with ID -given prior history of hypercalcemia and bone demineralization, protein electrophoresis was ordered on 10/02 to assess for multiple myeloma. Result is pending. -prior protein electrophoresis done on 09/15: eval revealed faint restricted band (M-spike) migrating in the gamma globulin region. M spike too small to quantitate. alpha-1 globulins: 0.5 (H). [id number]: 0.9, Gamma globulins: 0.7 (L). -Heme/Onc consulted on 10/05 - labs ordered -c.diff negative on 10/04 Nausea/vomiting Pyloric mass/gastric outlet obstruction Acute metabolic encephalopathy secondary to Aspiration pneumonia, resolved -PEG Tube not inserted on 10/05 due to pyloric mass. biopsy taken - need to await results prior to further surgery - per Dr. Warren -patient may be a candidate for a J-tube insertion depending on pyloric mass pathology result. -switch IV protonix to IV drip - discussed with general surgery, given reddish tint of NGT output -H/H slightly decreased, due for dialysis, will recheck H/H this evening -NGT pulled in G-J junction, Dr. Warren recommended additional NGT placement on 10/06 for gastric decompression. tube feeds via NJ tube h/o GI Bleed Anemia of chronic disease -hgb slightly decreased today, due to chronic disease/ ESRD. -Patient was recently here for hematochezia /gastritis. given 1uPRBC on 09/24 -slight reddish tint appearing in NGT output, check H/H later today, IV protonix drip started -monitor H&H and transfuse p.r.n. ESRD on HD -nephrology is following for HD chronic pain pain management as needed. Dispo: hospitalization > 2days, may need SNF or redo LTAC, pending pyloric mass path result / further surgery patient stated if result is cancer and is "too far gone", he would prefer hospice if possible Time Spent Managing Pts Care (In Minutes): 35
[2020-10-07] MEDS: D5 0.9 NS 1,000 ML IV SCH (17:41)
[2020-10-07] MEDS: PANTOPRAZOLE INJ 80 MG in NA CHLORIDE 0.9% 250 ML IV SCH (17:46)
[2020-10-07] MEDS ORDERED: MORPHINE 2 MG/ML SYR IV ONE (20:11)
[2020-10-07] MEDS ORDERED: MELATONIN 5 MG TABLET PO PRN (20:11)
[2020-10-07] MEDS: DOXAZOSIN 2 MG TAB PO SCH (20:37)
[2020-10-07 22:12] LABS: Hematocrit 18.8 % (39.6-49.0)
[2020-10-07] MEDS ORDERED: NA CHLORIDE 0.9% 250 ML IV SCH (23:00)
[2020-10-08] MEDS ORDERED: NA CHLORIDE 0.9% 250 ML ONE (00:18)
[2020-10-08] MEDS: FENTANYL CITR 100 MCG/2 ML IV PRN ×3 (02:14→17:07)
[2020-10-08 02:17] LABS: Hematocrit 20.6 % (39.6-49.0)
[2020-10-08] MEDS: D5 0.9 NS 1,000 ML IV SCH (04:13)
[2020-10-08] MEDS: PANTOPRAZOLE INJ 80 MG in NA CHLORIDE 0.9% 250 ML IV SCH (04:14)
[2020-10-08 06:12] LABS: Absolute Lymphocytes (CBC) 9.6 K/uL (0.7-4.9); Basophils % 2.6 % (0-1.3); Hematocrit 20.3 % (39.6-49.0); Lymphocytes % 20.3 % (15.3-44.8); MPV 8.1 fL (7.6-11.3); RBC Red Blood Cell Count 2.24 M/uL (4.33-5.43)
[2020-10-08 06:31] LABS: Albumin 1.9 g/dL (3.4-5.0); Bilirubin Total 0.4 mg/dL (0.2-1.0); C-Reactive Protein 34.4 mg/L (<3.00); Magnesium 1.8 mg/dL (1.8-2.4); Potassium 3.7 mmol/L (3.5-5.1); Protein, Total 5.3 g/dL (6.4-8.2)
[2020-10-08] MEDS ORDERED: MAGNESIUM SULFATE 1 gm IVPB 1 GM/100 ML BAG IV ONE (06:43)
[2020-10-08] MEDS: KCL 20 MEQ/100 mL IVPB 20 MEQ/100 ML BAG IV SCH ×2 (09:00→10:28)
[2020-10-08] MEDS: MULTIVITAMINS,THERAPEUT 1 TAB PO SCH (10:20)
[2020-10-08] MEDS: carvediloL 25 MG TAB PO SCH (10:21)
[2020-10-08] MEDS: DOCUSATE NA 100 MG CAP PO SCH (10:22)
[2020-10-08] MEDS: Meropenem 500 MG in NA CHLORIDE 0.9% 100 ML IV SCH (10:29)
[2020-10-08 10:32] LABS: Blood Morphology Comment NOT SEEN (NOT SEEN); Platelet Estimate DECR
[2020-10-08] MEDS ORDERED: POTASSIUM CL SA 10 MEQ TAB PO ONE (10:36)
--- NOTE | 2020-10-08 11:59 | P.PN ---
Subjective Date of Service: 10/08/20 Chief Complaint: Dose of vomiting and abdominal pain Patient wants to discuss in patient hospice, he does not wish for any other intervention, refuses any surgery, Endoscopy regardless of outcomes, he wants NG tubes removed. Physical Examination - Vital Signs Temperature: 98.5 F Blood Pressure: 103/70 Pulse: 94 Respirations: 18 Pulse Ox (%): 99 - Physical Exam General: Alert, In no apparent distress, Oriented x3 (Patient is oriented to person, place, date, event, location, and answers questions appropriately, has insignt and recall of his current situation), Cachectic Gastrointestinal: Soft and benign Other Physical/Emotional Findings: General: Alert, In no apparent distress, Oriented x3, Cachectic. HEENT: Atraumatic, Normocephalic. Neck: Supple, 2+ carotid pulse no bruit. Respiratory: Crackles/rales more prominent on left side. Gastrointestinal: Normal bowel sounds, Other (scar tissue formation from heprin shots ). Integumentary: No rashes, No breakdown. Neurological: Normal gait - Studies Medications List Reviewed: Yes Assessment And Plan - Current Problems (Diagnosis) (1) Enteritis Current Visit: Yes Status: Acute Plan: 55 year old man with profound leukocytosis and pyloric mass s/p biopsy - follow up on biopsies - transfuse PRN - patient requests hospice. - I have explained the risks, benefits and alternatives to his current medical treatment, and patient states he will not allow any further surgical intervention or endoscopy, further he wants the NG tubes removed, and wants hospice Physician Review Additional Text: Physical Exam: Gen: cachectic, ill-appearing, NAD HEENT: normal conjunctiva, NGT x2 in place, dark greenish-black with slight red tint CV: regular rate / rhythm, no edema Pulm: CTAB, transmitted upper airway sounds Abd: soft, NTND Ext: no rash, no lesions Neuro: AAOx3, fatigued Problem List Enteritis/ Gastritis Leukocytosis Nausea/vomiting Pyloric mass/gastric outlet obstruction Acute metabolic encephalopathy secondary to Aspiration pneumonia, resolved ESRD on HD h/o GI Bleed Anemia of chronic disease Small-bowel ileus chronic pain Enteritis/Gastritis Leukocytosis -leukocytosis worsening, patient remains afebrile, procalcitonin improving; unlikely infectious etiology -blood cultures: enteroccus avium on merrem and vanc - discussed with ID -given prior history of hypercalcemia and bone demineralization, protein electrophoresis was ordered on 10/02 to assess for multiple myeloma. Result is pending. -prior protein electrophoresis done on 09/15: eval revealed faint restricted band (M-spike) migrating in the gamma globulin region. M spike too small to quantitate. alpha-1 globulins: 0.5 (H). [id number]: 0.9, Gamma globulins: 0.7 (L). -Heme/Onc consulted on 10/05 - labs ordered -c.diff negative on 10/04 Nausea/vomiting Pyloric mass/gastric outlet obstruction Acute metabolic encephalopathy secondary to Aspiration pneumonia, resolved -PEG Tube not inserted on 10/05 due to pyloric mass. biopsy taken - need to await results prior to further surgery - per Dr. Warren -patient may be a candidate for a J-tube insertion depending on pyloric mass pathology result. -switch IV protonix to IV drip - discussed with general surgery, given reddish tint of NGT output -H/H slightly decreased, due for dialysis, will recheck H/H this evening -NGT pulled in G-J junction, Dr. Warren recommended additional NGT placement on 10/06 for gastric decompression. tube feeds via NJ tube h/o GI Bleed Anemia of chronic disease -hgb slightly decreased today, due to chronic disease/ ESRD. -Patient was recently here for hematochezia /gastritis. given 1uPRBC on 09/24 -slight reddish tint appearing in NGT output, check H/H later today, IV protonix drip started -monitor H&H and transfuse p.r.n. ESRD on HD -nephrology is following for HD chronic pain pain management as needed. Dispo: hospitalization > 2days, may need SNF or redo LTAC, pending pyloric mass path result / further surgery patient stated if result is cancer and is "too far gone", he would prefer hospice if possible
[2020-10-08] MEDS: HYDROMORPHONE HCL 1 MG/ML INJ IV PRN ×2 (12:42→19:52)
[2020-10-08] MEDS: ONDANSETRON 4 MG/2 ML VIAL IV PRN (17:07)
--- NOTE | 2020-10-08 19:25 | P.PN ---
Subjective Date of Service: 10/08/20 Chief Complaint: Dose of vomiting and abdominal pain Subjective: Other (overnight patient was demanding to leave AMA, didn't have a ride/plan, agreed to stay. This morning, patient again demanding to leave AMA) Physical Examination - Vital Signs Temperature: 97.7 F Blood Pressure: 106/66 Pulse: 84 Respirations: 18 Pulse Ox (%): 99 - Physical Exam Other Physical/Emotional Findings: General: Alert, In no apparent distress, Oriented x3, Cachectic. HEENT: Atraumatic, Normocephalic. Neck: Supple, 2+ carotid pulse no bruit. Respiratory: Crackles/rales more prominent on left side. Gastrointestinal: Normal bowel sounds, Other (scar tissue formation from heprin shots ). Integumentary: No rashes, No breakdown. Neurological: Normal gait - Studies Medications List Reviewed: Yes Assessment & Plan Physician Review Additional Text: Physical Exam: Gen: cachectic, ill-appearing HEENT: normal conjunctiva, NGT x2 in place, dark greenish-black with slight red tint CV: regular rate / rhythm, no edema Pulm: CTAB, transmitted upper airway sounds Abd: soft, NTND Ext: no rash, no lesions Neuro: AAOx3, +decision making capacity, understands consequences Problem List Enteritis/ Gastritis Leukocytosis Nausea/vomiting Pyloric mass/gastric outlet obstruction Acute metabolic encephalopathy secondary to Aspiration pneumonia, resolved ESRD on HD h/o GI Bleed Anemia of chronic disease Small-bowel ileus chronic pain Had a long discussion with patient this morning. Initially demanded to sign out AMA, however unable to confirm ride / place to go. He states regardless of outcomes of tests / biopsies, etc, he does not want treatment anymore. He wants the tubes out, stop blood transfusion, and to be "left alone" and to leave the hospital. Dr. Jo was present for this conversation as well and reviewed advanced directives / plan of care. He understands if he leaves and stops treatment / blood transfusions he could in the next 24-48hrs. Patient was agreeable for evaluation of inpatient hospice, however deemed patient not appropriate Patient agreeable to remain in hospital with comfort measures only. Wanted all treatment stopped, asking for coffee and food. diet ordered, NGT removed. Continue pain control. Dispo: comfort measures only, possibly back to [facility] tomorrow for hospice care there Time Spent Managing Pts Care (In Minutes): 35
[2020-10-08] MEDS ORDERED: PROMETHAZINE INJ 25 MG/ML AMP IV PRN (19:27)
[2020-10-08 21:10] VITALS: O2SAT 96
[2020-10-08] MEDS ORDERED: LORazepam 2 MG/ML VIAL IV ONE (23:28)
[2020-10-09 05:52] VITALS: BP 107/54; TEMP 97.9
--- NOTE | 2020-10-09 21:18 | P.DS ---
Admission Date: 09/20/20 Discharge Date: 10/09/20 Disposition: Discharge Condition: Reason for Admission: vomiting, abdominal pain Consultations: Infectious Disease - Dr. Menendez Nephrology - Dr. Garcia General Surgery - Dr. Warren Heme/Onc - Dr. 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 PMH: hypertension, hyperlipidemia, end-stage renal disease on dialysis Monday, chronic anemia and history of GI bleed, history of gastritis and duodenal ulceration. He was recently been admitted to the hospital for GI bleed and was sent back to long term. Patient started having abdominal pain which is diffuse cramping type 7/10 in severity associated with nausea and vomiting. Was assessed in the ER and was admitted for further management. At the time of interview patient is vitals stable. Still continues to have abdominal distention and pain. Still nauseous. CT of the abdomen pelvis showed possible small-bowel obstruction versus antritis and was admitted for further management Hospital Course: Patient was treated for enteritis / ileus with some improvement, however continued with nausea/vomiting. Patient became septic from aspiration pneumonia. Speech therapy was consulted and recommend NPO due to severe risk of aspiration. He began to improved from his sepsis and General surgery took patient for PEG placement, however found a pyloric mass which could have been causing some obstruction and leading to his ongoing nausea/vomiting. During this time, patient's WBC count continued to increase. Infectious Disease was consulted and initially recommended broad spectrum antibiotics, however, his leukocytosis continued to increase despite negative cultures and improvement of procalcitonin. A blood smear was obtained, and biospy initially reviwed by path - reported lymphoid cells, concern for bone marrow disorder, but awaiting final review of biopsy. Due to the severe risk of aspiration, cachexia, and lack of nutrition. A NG tube was pulled down to his jejunum during EGD for feeds. Patient continued with nausea/vomiting so a 2nd NGT was placed (for decompression of stomach). Despite this, patient continued to not feel well. This was further complicated by his NGT output appearing to be red-tinged, with continued drop in his hemoglobin. He was initially transfused PRBCs. Patient ultimately decided he "had enough" and didn't want to continue with any treatment. He had previously stated he wished to be DNR. He refused all treatment and requested comfort care only. He wanted the tubes removed, a cup of coffee, and refused any further blood transfusions. Hospice was consulted and arranged for patient to be transferred back to long term, however patient prior to transfer at 7:30am on 10/09/20. Vital Signs/Physical Exam: Temp Pulse Resp BP Pulse Ox 97.9 F 104 H 18 107/54 L 84 L 10/09/20 04:00 10/09/20 04:00 10/09/20 04:00 10/09/20 04:00 10/09/20 04:00 Laboratory Data at Discharge: WBC 47.50 K/uL (4.3-10.9) H* D 10/08/20 05:47 Hgb 6.7 g/dL (13.6-17.9) L* 10/08/20 05:47 Hct 20.3 % (39.6-49.0) L* 10/08/20 05:47 Plt Count 80 K/uL (152-406) L D 10/08/20 05:47 PT Cancelled 10/08/20 Unknown INR Cancelled 10/08/20 Unknown APTT Cancelled 10/08/20 Unknown Sodium 145 mmol/L (136-145) 10/08/20 05:47 Potassium 3.7 mmol/L (3.5-5.1) 10/08/20 05:47 BUN 15 mg/dL (7-18) 10/08/20 05:47 Creatinine 3.46 mg/dL (0.55-1.3) H D 10/08/20 05:47 Glucose 107 mg/dL (74-106) H 10/08/20 05:47 Phosphorus 4.5 mg/dL (2.5-4.9) 10/06/20 06:17 Magnesium 1.8 mg/dL (1.8-2.4) 10/08/20 05:47 Total Bilirubin 0.4 mg/dL (0.2-1.0) 10/08/20 05:47 AST 50 U/L (15-37) H 10/08/20 05:47 ALT 16 U/L (12-78) 10/08/20 05:47 Alkaline Phosphatase 83 U/L (45-117) 10/08/20 05:47 Lipase 81 U/L (73-393) 09/20/20 15:19 Home Medications: Atorvastatin Calcium 20 mg PO BEDTIME 09/21/20 Carvedilol [Coreg] 25 mg PO BID 09/21/20 Cyanocobalamin [Vitamin B-12] 1,000 mcg PO DAILY 09/21/20 Docusate Sodium 100 mg PO DAILY 09/21/20 Doxazosin Mesylate 2 mg PO BEDTIME 09/21/20 Folic Acid 1 mg PO DAILY 09/21/20 Gabapentin 300 mg PO BEDTIME 09/21/20 Gabapentin 600 mg PO DAILY 09/21/20 Iron Polysaccharide Complex [Polysaccharide Iron] 150 mg PO DAILY 09/21/20 Nepro Shake [Nepro*] 237 ml PO DAILY 09/21/20 Pantoprazole Sodium 40 mg PO DAILY 09/21/20 Sevelamer Carbonate [Renvela] 800 mg PO TIDWM 09/21/20 Tamsulosin HCl [Flomax] 0.4 mg PO BEDTIME 09/21/20 Tizanidine [Zanaflex] 2 mg PO BID 09/21/20 Tramadol HCl [Ultram] 50 mg PO Q6HP PRN 09/21/20 Ubidecarenone [Co Q-10] 200 mg PO DAILY 09/21/20 Zinc Sulfate [Zinc Sulfate*] 220 mg PO DAILY 09/21/20 Followup: Unknown,U [Primary Care Provider] - Time spent managing pt's care (in minutes): 45
[2020-10-10 06:01] LABS: Immunoglobulin A 83 mg/dL (47-310); Immunoglobulin G 854 mg/dL (600-1640); Immunoglobulin M 9 mg/dL (50-300)
== END 2020-10-09 13:11 | disposition expired | DRG 380 ==
LOC: ER 14:20 → ERHOLD 20:14 → 2ND 09-21 14:09
PROVIDERS: ADMIT Family Medicine; ATTEND Hospitalist
PROC: 5A1D70Z Performance of Urinary Filtration, Intermittent, Less than 6 Hours Per Day (ICD-10-PCS; 2020-09-22)
PROC: 30233N1 Transfusion of Nonautologous Red Blood Cells into Peripheral Vein, Percutaneous Approach (ICD-10-PCS; 2020-09-24)
PROC: 0W3P8ZZ Control Bleeding in Gastrointestinal Tract, Via Natural or Artificial Opening Endoscopic (ICD-10-PCS; 2020-10-05)
PROC: 0DB78ZX Excision of Stomach, Pylorus, Via Natural or Artificial Opening Endoscopic, Diagnostic (ICD-10-PCS; principal; 2020-10-05 11:00)
DX: K31.1 Adult hypertrophic pyloric stenosis (principal); K29.01 Acute gastritis with bleeding; N18.6 End stage renal disease; J69.0 Pneumonitis due to inhalation of food and vomit; G93.41 Metabolic encephalopathy; A41.9 Sepsis, unspecified organism; E87.1 Hypo-osmolality and hyponatremia; I50.32 Chronic diastolic (congestive) heart failure; E44.0 Moderate protein-calorie malnutrition; I13.2 Hypertensive heart and chronic kidney disease with heart failure and with stage 5 chronic kidney disease, or end stage renal disease; N39.0 Urinary tract infection, site not specified; D61.818 Other pancytopenia; K56.690 Other partial intestinal obstruction; C85.90 Non-Hodgkin lymphoma, unspecified, unspecified site; K52.9 Noninfective gastroenteritis and colitis, unspecified; E78.5 Hyperlipidemia, unspecified; K21.9 Gastro-esophageal reflux disease without esophagitis; D72.829 Elevated white blood cell count, unspecified; F17.200 Nicotine dependence, unspecified, uncomplicated; E87.5 Hyperkalemia; D63.1 Anemia in chronic kidney disease; E21.1 Secondary hyperparathyroidism, not elsewhere classified; N25.0 Renal osteodystrophy; N40.1 Benign prostatic hyperplasia with lower urinary tract symptoms; E86.0 Dehydration; R13.10 Dysphagia, unspecified; G89.29 Other chronic pain; Z66 Do not resuscitate; Z68.20 Body mass index [BMI] 20.0-20.9, adult; Z59.0 Homelessness; Z79.899 Other long term (current) drug therapy; Z99.2 Dependence on renal dialysis; Z20.822 Contact with and (suspected) exposure to COVID-19
CPT/HCPCS: 36415; 71045; 74018; 74176; 74177; 74230; 80048; 80053; 80069; 80076; 80202; 81003; 81015; 82040; 82274; 82784; 82947; 83605; 83690; 83735; 84100; 84132; 84134; 84145; 84165; 85014; 85018; 85025; 85652; 86140; 86850; 86900; 86901; 87040; 87070; 87077; 87086; 87088; 87186; 87205; 87324; 87449; 88305; 88312; 90935; 92610; 92611; 94760; 96361; 96374; 96375; 99285; C9113; J0692; J1170; J1644; J2020; J2270; J2405; J2430; J2550; J2704; J3010; J3370; J3475; J3480; J7030; J7040; J7042; J7050; P9016; Q5105; Q5106; Q9967; U0003